=== PATIENT | male | born 1955 | race Caucasian/White ===

== ENCOUNTER 2018-04-10 15:19 | Inpatient (IN) | payer OTHER ==
[2018-04-10] MEDS ORDERED: NA CHLORIDE 0.9% 1,000 ML ONE (17:53)
[2018-04-10 18:19] LABS: Absolute Lymphocytes (CBC) 0.8 K/uL (0.7-4.9); Absolute Monocytes 1.9 K/uL (0.1-1.3); Absolute Neutrophil 14.7 K/uL (1.8-8.0); Basophils % 0.2 % (0-1.3); Eosinophils % 0.1 % (0-4.4); Hematocrit 29.7 % (39.6-49.0); Lymphocytes % 4.6 % (15.3-44.8); MCH 26.3 pg (27.0-35.0); MCV 79.9 fL (80-100); MPV 8.9 fL (7.6-11.3); Monocytes % 10.9 % (3.3-12.3); RBC Red Blood Cell Count 3.71 M/uL (4.33-5.43)
--- NOTE | 2018-04-10 18:29 | RAD REPORT ---
EXAM DESCRIPTION: RAD - Chest Single View - 04/10/2018 5:54 pm CLINICAL HISTORY: Chest pain, GI bleeding. COMPARISON: 03/08/2015 FINDINGS: Portable technique limits examination quality. The lungs are grossly clear. The heart is normal in size. No displaced fractures. IMPRESSION: No acute intrathoracic process suspected.
[2018-04-10 18:30] LABS: Protime INR 1.32
[2018-04-10 18:46] LABS: Potassium 4.7 mEq/L (3.6-5.0)
[2018-04-10 18:52] LABS: Albumin 3.3 g/dL (3.2-5.5); Bilirubin Direct 0.3 mg/dL (0-0.2); Bilirubin Total 1.1 mg/dL (0.3-1.2); Protein, Total 7.1 g/dL (6.0-8.3)
[2018-04-10 18:54] LABS: CKMB Creatine Kinase MB 2.4 ng/ml (0.3-4.0)
[2018-04-10] MEDS ORDERED: HYDROCODONE/APAP 7.5/325 MG TAB ONE (18:58)
[2018-04-10] MEDS ORDERED: CEFEPIME 1 GM/100 ML BAG IV ONE (19:01)
--- NOTE | 2018-04-10 19:08 | ER ---
Nurse's Notes [facility] Name: Benji Villalpando Age: 62 yrs Sex: Male : 1955 Arrival Date: 04/10/2018 Time: 15:23 Bed 8 Private MD: Jack Corley Diagnosis: Weakness;Anemia, unspecified;Elevated white blood cell count;Unspecified kidney failure;Hypotension;Type 1 diabetes mellitus Presentation: 04/10 15:28 Presenting complaint: Pt's [id number] states "we were at Dr. Corley's office and aa5 his blood pressure was 84/47 so they sent us here". Pt c/o dizziness. Pt's [id number] states "they think he has a GI bleed because he's been nauseated". 15:28 Transition of care: patient was not received from another setting of care. Onset of aa5 symptoms was April 10, 2018. Risk Assessment: Do you want to hurt yourself or someone else? Patient reports no desire to harm self or others. Initial Sepsis Screen: Does the patient meet any 2 criteria? No. Patient's initial sepsis screen is negative. Does the patient have a suspected source of infection? No. Patient's initial sepsis screen is negative. Care prior to arrival: None. 15:28 Method Of Arrival: Wheelchair aa5 15:28 Acuity: MILADYS 3 aa5 Historical: - Allergies: 15:28 No Known Allergies; aa5 - Home Meds: 15:28 atorvastatin 40 mg oral tab 1 tab once daily [Active]; aspirin 81 mg Oral chew 1 tab aa5 once daily [Active]; Plavix 75 mg Oral tab 1 tab once daily [Active]; Humulin N subcutaneous subcutaneous [Active]; Ranexa 1,000 mg oral Tb12 1 tab 2 times per day [Active]; Entresto 24-26 mg oral tab twice a day [Active]; - PMHx: 15:28 Diabetes - IDDM; Hypertension; Myocardial infarction; aa5 15:29 Anemia; aa5 15:29 Kidney Failure stage 3; aa5 - PSHx: 15:28 Heart stents; aa5 - Immunization history:: Adult Immunizations unknown. - Social history:: Smoking status: Patient/guardian denies using tobacco. - Ebola Screening: : No symptoms or risks identified at this time. - Family history:: not pertinent. Screenin:40 Abuse screen: Denies threats or abuse. Denies injuries from another. Nutritional hb screening: No deficits noted. Tuberculosis screening: No symptoms or risk factors identified. Fall Risk None identified. Assessment: 17:00 General: Appears in no apparent distress. Behavior is calm, cooperative. Pain: Denies hb pain. Neuro: Level of Consciousness is awake, alert, obeys commands, Oriented to person, place, time, situation. Cardiovascular: Heart tones S1 S2 present Capillary refill < 3 seconds Patient's skin is warm and dry. Respiratory: Airway is patent Trachea midline Respiratory effort is even, unlabored, Respiratory pattern is regular, symmetrical, Breath sounds are clear bilaterally. GI: No signs and/or symptoms were reported involving the gastrointestinal system. : No signs and/or symptoms were reported regarding the genitourinary system. EENT: No signs and/or symptoms were reported regarding the EENT system. Derm: No signs and/or symptoms reported regarding the dermatologic system. Skin is intact, is healthy with good turgor, Skin is pink, warm \\T\\ dry. Musculoskeletal: No signs and/or symptoms reported regarding the musculoskeletal system. 18:00 Reassessment: Patient appears in no apparent distress at this time. Patient and/or hb family updated on plan of care and expected duration. Pain level reassessed. Patient is alert, oriented x 3, equal unlabored respirations, skin warm/dry/pink. 18:53 Reassessment: Patient appears in no apparent distress at this time. No changes from hb previously documented assessment. Patient and/or family updated on plan of care and expected duration. Pain level reassessed. Patient is alert, oriented x 3, equal unlabored respirations, skin warm/dry/pink. 20:41 Reassessment: bladder scan shows 319 post void residual, orders for quintero to be placed..ak1 Vital Signs: 15:31 BP 92 / 52; Pulse 70; Resp 18 S; Temp 98.0(TE); Pulse Ox 98% on R/A; Weight 83.01 kg aa5 (R); Height 5 ft. 4 in. (162.56 cm) (R); Pain 0/10; 17:00 BP 96 / 54; Pulse 71; Resp 17; Pulse Ox 96% on R/A; hb 18:10 BP 111 / 62; Pulse 81; Resp 15; Pulse Ox 100% on R/A; hb 18:52 BP 115 / 62; Pulse 80; Resp 17; Pulse Ox 97% on R/A; Pain 0/10; hb 19:12 BP 109 / 62; Pulse 81; Resp 17; Temp 98.2; Pulse Ox 97% on R/A; Pain 0/10; ak1 15:31 Body Mass Index 31.41 (83.01 kg, 162.56 cm) aa5 ED Course: 15:23 Patient arrived in ED. mr 15:23 Jack Corley, is Private Physician. mr 15:28 Arm band placed on. aa5 15:31 Triage completed. aa5 17:00 Patient has correct armband on for positive identification. Placed in gown. Bed in low hb position. Call light in reach. Side rails up X 1. 17:12 Josee Patel RN is Primary Nurse. hb 17:21 Geovanny Kimball MD is Attending Physician. elzbieta 17:52 X-ray completed. Portable x-ray completed in exam room. Patient tolerated procedure kc2 well. 17:52 XRAY Chest (1 view) In Process Unspecified. EDMS 17:57 Initial lab(s) drawn, by ct, sent to lab. Inserted saline lock: 20 gauge in right jb1 antecubital area, using aseptic technique. Blood collected. 18:51 Elizabeth Phelps MD is Hospitalizing Provider. elzbieta 19:13 No provider procedures requiring assistance completed. Patient admitted, IV remains in ak1 place. 20:23 Primary Nurse role handed off by Josee Patel RN rg2 Administered Medications: 17:50 Not Given (Duplicate Order): NS 0.9% 1000 ml IV at 125 ml/hr continuous iw 17:50 Drug: NS 0.9% 250 ml Route: IV; Rate: bolus; Site: right antecubital; hb 18:10 Follow up: Response: No adverse reaction; IV Status: Completed infusion hb 18:10 Drug: NS 0.9% 1000 ml Route: IV; Rate: 75 ml/hr; Site: right antecubital; hb 20:42 Follow up: IV Status: Infusion continued upon admission ak1 19:05 Drug: Cefepime 1 grams Route: IVPB; Rate: 200 ml/hr; Infused Over: 30 mins; Site: right hb antecubital; Point of Care Testing: Guaiac: 18:44 Stool Guaiac: Negative; Stool Hemoccult Control: Pass; elzbieta Outcome: 19:07 Decision to Hospitalize by Provider. elzbieta 20:40 Admitted to ICU accompanied by nurse, family with patient, via stretcher, room icu6, on ak1 monitor, with chart. 20:40 critical 20:40 Instructed on the need for admit. 21:28 Patient left the ED. ak1 Signatures: Dispatcher [employer] EDMS Marv Suh jb1 Ronal Gatica rg2 Geovanny Kimball MD MD cha Rivera, Maria mr Sunni Ramirez, RN RN aa5 Shaye Walker RN RN ak1 Josee Patel RN RN hb Carr, Kelsie kc2 Kajal Palacios RN iw Corrections: (The following items were deleted from the chart) 15:28 15:26 PSHx: None; aa5 aa5
--- NOTE | 2018-04-10 19:08 | EDPHYS ---
Physician Documentation [facility] Name: Benji Villalpando Age: 62 yrs Sex: Male : 1955 Arrival Date: 04/10/2018 Time: 15:23 Bed 8 Private MD: Bar[facility] ED Physician Geovanny Kimball HPI: 04/10 17:35 This 62 yrs old Male presents to ER via Wheelchair with complaints of Low elzbieta Blood Presure. 17:35 weak, low bp. Onset: The symptoms/episode began/occurred 2 day(s) ago. Severity of elzbieta symptoms: At their worst the symptoms were moderate in the emergency department the symptoms are unchanged. The patient has experienced similar episodes in the past, several times. Historical: - Allergies: 15:28 No Known Allergies; aa5 - Home Meds: 15:28 atorvastatin 40 mg oral tab 1 tab once daily [Active]; aspirin 81 mg Oral chew 1 tab aa5 once daily [Active]; Plavix 75 mg Oral tab 1 tab once daily [Active]; Humulin N subcutaneous subcutaneous [Active]; Ranexa 1,000 mg oral Tb12 1 tab 2 times per day [Active]; Entresto 24-26 mg oral tab twice a day [Active]; - PMHx: 15:28 Diabetes - IDDM; Hypertension; Myocardial infarction; aa5 15:29 Anemia; aa5 15:29 Kidney Failure stage 3; aa5 - PSHx: 15:28 Heart stents; aa5 - Immunization history:: Adult Immunizations unknown. - Social history:: Smoking status: Patient/guardian denies using tobacco. - Ebola Screening: : No symptoms or risks identified at this time. - Family history:: not pertinent. ROS: 17:35 Constitutional: Negative for fever, chills, and weight loss, Eyes: Negative for injury, elzbieta pain, redness, and discharge, ENT: Negative for injury, pain, and discharge, Neck: Negative for injury, pain, and swelling, Cardiovascular: Negative for chest pain, palpitations, and edema, Respiratory: Negative for shortness of breath, cough, wheezing, and pleuritic chest pain, Abdomen/GI: Negative for abdominal pain, nausea, vomiting, diarrhea, and constipation, Back: Negative for injury and pain, : Negative for injury, bleeding, discharge, and swelling, MS/Extremity: Negative for injury and deformity, Psych: Negative for depression, anxiety, suicide ideation, homicidal ideation, and hallucinations, Allergy/Immunology: Negative for hives, rash, and allergies, Endocrine: Negative for neck swelling, polydipsia, polyuria, polyphagia, and marked weight changes, Hematologic/Lymphatic: Negative for swollen nodes, abnormal bleeding, and unusual bruising. 17:35 Skin: Positive for jaundice, pallor. Exam: 17:35 Constitutional: This is a well developed, well nourished patient who is awake, alert, elzbieta and in no acute distress. Head/Face: Normocephalic, atraumatic. Eyes: Pupils equal round and reactive to light, extra-ocular motions intact. Lids and lashes normal. Conjunctiva and sclera are non-icteric and not injected. Cornea within normal limits. Periorbital areas with no swelling, redness, or edema. ENT: Nares patent. No nasal discharge, no septal abnormalities noted. Tympanic membranes are normal and external auditory canals are clear. Oropharynx with no redness, swelling, or masses, exudates, or evidence of obstruction, uvula midline. Mucous membranes moist. Neck: Trachea midline, no thyromegaly or masses palpated, and no cervical lymphadenopathy. Supple, full range of motion without nuchal rigidity, or vertebral point tenderness. No Meningismus. Chest/axilla: Normal chest wall appearance and motion. Nontender with no deformity. No lesions are appreciated. Cardiovascular: Regular rate and rhythm with a normal S1 and S2. No gallops, murmurs, or rubs. Normal PMI, no JVD. No pulse deficits. Respiratory: Lungs have equal breath sounds bilaterally, clear to auscultation and percussion. No rales, rhonchi or wheezes noted. No increased work of breathing, no retractions or nasal flaring. Abdomen/GI: Soft, non-tender, with normal bowel sounds. No distension or tympany. No guarding or rebound. No evidence of tenderness throughout. Back: No spinal tenderness. No costovertebral tenderness. Full range of motion. Male : Normal genitalia with no discharge or lesions. Skin: Warm, dry with normal turgor. Normal color with no rashes, no lesions, and no evidence of cellulitis. MS/ Extremity: Pulses equal, no cyanosis. Neurovascular intact. Full, normal range of motion. Neuro: Awake and alert, GCS 15, oriented to person, place, time, and situation. Cranial nerves II-XII grossly intact. Motor strength 5/5 in all extremities. Sensory grossly intact. Cerebellar exam normal. Normal gait. Psych: Awake, alert, with orientation to person, place and time. Behavior, mood, and affect are within normal limits. Vital Signs: 15:31 BP 92 / 52; Pulse 70; Resp 18 S; Temp 98.0(TE); Pulse Ox 98% on R/A; Weight 83.01 kg aa5 (R); Height 5 ft. 4 in. (162.56 cm) (R); Pain 0/10; 17:00 BP 96 / 54; Pulse 71; Resp 17; Pulse Ox 96% on R/A; hb 18:10 BP 111 / 62; Pulse 81; Resp 15; Pulse Ox 100% on R/A; hb 18:52 BP 115 / 62; Pulse 80; Resp 17; Pulse Ox 97% on R/A; Pain 0/10; hb 19:12 BP 109 / 62; Pulse 81; Resp 17; Temp 98.2; Pulse Ox 97% on R/A; Pain 0/10; ak1 15:31 Body Mass Index 31.41 (83.01 kg, 162.56 cm) aa5 MDM: 17:22 Patient medically screened. [facility] 17:35 Data reviewed: vital signs, nurses notes, lab test result(s), EKG, radiologic studies, elzbieta plain films. 04/10 17:14 Order name: Basic Metabolic Panel; Complete Time: 19:08 [facility] 04/10 17:14 Order name: CBC with Diff; Complete Time: 18:45 [facility] 04/10 17:14 Order name: Creatinine for Radiology; Complete Time: 19:08 [facility] 04/10 17:14 Order name: Hepatic Function; Complete Time: 19:08 [facility] 04/10 17:14 Order name: Lipase; Complete Time: 19:08 [facility] 04/10 17:14 Order name: Urine Microscopic Only [facility] 04/10 17:34 Order name: BNP [facility] 04/10 17:34 Order name: Ckmb; Complete Time: 19:34 [facility] 04/10 17:34 Order name: CPK; Complete Time: 19:34 [facility] 04/10 17:34 Order name: Magnesium; Complete Time: 19:34 [facility] 04/10 17:34 Order name: PT-INR; Complete Time: 18:45 [facility] 04/10 17:34 Order name: Ptt, Activated; Complete Time: 18:45 [facility] 04/10 17:34 Order name: Troponin (emerg Dept Use Only); Complete Time: 19:08 [facility] 04/10 17:34 Order name: AMMONIA; Complete Time: 18:45 [facility] 04/10 17:34 Order name: Urine Culture [facility] 04/10 17:34 Order name: Type And Screen; Complete Time: 19:34 [facility] 04/10 17:34 Order name: BNP B-Type Natriuretic Peptide; Complete Time: 19:08 [facility] 04/10 18:49 Order name: Osmolality, Serum [facility] 04/10 18:49 Order name: Urine Sodium Random [facility] 04/10 18:50 Order name: Blood Culture Adult (2) [facility] 04/10 19:30 Order name: BNP B-Type Natriuretic Peptide [facility] 04/10 19:30 Order name: BNP B-Type Natriuretic Peptide [facility] 04/10 19:30 Order name: CBC with Automated Diff [facility] 04/10 19:30 Order name: CBC with Automated Diff [facility] 04/10 19:30 Order name: Comprehensive Metabolic Panel [facility] 04/10 19:30 Order name: Comprehensive Metabolic Panel [facility] 04/10 19:30 Order name: Cortisol EDMS / 19:30 Order name: Cortisol [facility] 04/10 19:30 Order name: Lactate EDMS / 19:30 Order name: Lactate [facility] 04/10 17:14 Order name: IV Saline Lock; Complete Time: 17:48 [facility] 04/10 17:14 Order name: Labs collected and sent; Complete Time: 17:48 [facility] 04/10 17:14 Order name: Urine Dipstick-Ancillary (obtain specimen); Complete Time: 20:32 [facility] 04/10 17:34 Order name: XRAY Chest (1 view); Complete Time: 18:45 [facility] 04/10 17:34 Order name: EKG; Complete Time: 17:35 [facility] 04/10 17:34 Order name: Cardiac monitoring; Complete Time: 17:58 [facility] 04/10 17:34 Order name: EKG - Nurse/Tech; Complete Time: 18:56 [facility] 04/10 17:34 Order name: O2 Per Protocol; Complete Time: 17:48 [facility] 04/10 17:34 Order name: O2 Sat Monitoring; Complete Time: 17:48 [facility] 04/10 19:07 Order name: CONS Physician Consult [facility] 04/10 19:07 Order name: CONS Physician Consult [facility] 04/10 19:30 Order name: Heart Healthy [facility] 04/10 19:30 Order name: Magnesium [facility] 04/10 19:30 Order name: Magnesium [facility] 04/10 19:30 Order name: Phosphorus [facility] 04/10 19:30 Order name: Phosphorus [facility] 04/10 19:30 Order name: T4 Free [facility] 04/10 19:30 Order name: T4 Free [facility] 04/10 19:30 Order name: Troponin I [facility] 04/10 19:30 Order name: Troponin I [facility] 04/10 19:30 Order name: Troponin I [facility] 04/10 19:30 Order name: Thyroid Stimulating Hormone [facility] 04/10 19:30 Order name: Thyroid Stimulating Hormone [facility] 04/10 19:31 Order name: Urinalysis [facility] 04/10 19:37 Order name: Bladder Scanner: if post residual greater than 100 cc, place quintero; [facility] Complete Time: 20:38 04/10 19:59 Order name: Urine Dipstick--Ancillary (enter results) 2 04/10 20:03 Order name: Urine Dipstick-Ancillary [facility] 04/10 20:35 Order name: ABO/RH no charge [facility] 04/10 21:00 Order name: Caorl; Complete Time: 21:01 ak1 Administered Medications: 17:50 Not Given (Duplicate Order): NS 0.9% 1000 ml IV at 125 ml/hr continuous iw 17:50 Drug: NS 0.9% 250 ml Route: IV; Rate: bolus; Site: right antecubital; hb 18:10 Follow up: Response: No adverse reaction; IV Status: Completed infusion hb 18:10 Drug: NS 0.9% 1000 ml Route: IV; Rate: 75 ml/hr; Site: right antecubital; hb 20:42 Follow up: IV Status: Infusion continued upon admission ak1 19:05 Drug: Cefepime 1 grams Route: IVPB; Rate: 200 ml/hr; Infused Over: 30 mins; Site: right hb antecubital; Point of Care Testing: Guaiac: 18:44 Stool Guaiac: Negative; Stool Hemoccult Control: Pass; elzbieta Disposition: 04/10/18 19:07 Hospitalization ordered by Elizabeth Phelps for Inpatient Admission. Preliminary diagnosis are Weakness, Anemia, unspecified, Elevated white blood cell count, Unspecified kidney failure, Hypotension, Type 1 diabetes mellitus. - Bed requested for Intensive Care Unit. - Status is Inpatient Admission. ak1 - Condition is Stable. - Problem is new. - Symptoms have improved. UTI on Admission? No Signatures: Dispatcher [employer] EDMS Geovanny Kimball MD MD cha Therrien, Shelly, RAISE DRILLER-C RAISE DRILLER-Csnw Kathi Plascencia RN RN bb Sunni Ramirez RN RN aa5 Shaye Walker RN HIRA ak1 Josee Patel RN RN Kajal Palacios RN Corrections: (The following items were deleted from the chart) 15:28 15:26 PSHx: None; aa5 aa5 19:08 19:07 Hospitalization Ordered by Elizabeth Phelps MD for Inpatient Admission. Preliminary [facility] diagnosis is Weakness; Anemia, unspecified; Elevated white blood cell count; Unspecified kidney failure; Hypotension; Type 1 diabetes mellitus. Bed requested for Telemetry/MedSurg (Inpatient). Status is Inpatient Admission. Condition is Stable. Problem is new. Symptoms have improved. UTI on Admission? No. elzbieta 20:30 19:08 04/10/2018 19:07 Hospitalization Ordered by Elizabeth Phelps MD for Inpatient bb Admission. Preliminary diagnosis is Weakness; Anemia, unspecified; Elevated white blood cell count; Unspecified kidney failure; Hypotension; Type 1 diabetes mellitus. Bed requested for Intensive Care Unit. Status is Inpatient Admission. Condition is Stable. Problem is new. Symptoms have improved. UTI on Admission? No. elzbieta 21:28 20:30 04/10/2018 19:07 Hospitalization Ordered by Elizabeth Phelps MD for Inpatient ak1 Admission. Preliminary diagnosis is Weakness; Anemia, unspecified; Elevated white blood cell count; Unspecified kidney failure; Hypotension; Type 1 diabetes mellitus. Bed requested for Intensive Care Unit. Status is Inpatient Admission. Condition is Stable. Problem is new. Symptoms have improved. UTI on Admission? No. bb
[2018-04-10] MEDS ORDERED: ONDANSETRON 4 MG/2 ML VIAL IV PRN (19:27)
[2018-04-10] MEDS ORDERED: NA CHLORIDE 0.9% 1,000 ML IV SCH (20:00)
[2018-04-10 20:02] LABS: Urine Blood NEGATIVE (NEG); Urine Glucose NEGATIVE (NEG); Urine Protein 2+ (NEG); Urine Specific Gravity 1.025 (1.005-1.030); Urine pH 5.5 (5.0-7.0)
[2018-04-10 20:02] LABS: Urine Bacteria <20 /HPF (NONE SEEN); Urine Culture Reflex Order NOT NEEDED; Urine RBC <5 /HPF (NONE SEEN)
[2018-04-11] MEDS: ACETAMINOPHEN 500 MG TAB PO PRN ×2 (00:21→11:05)
[2018-04-11 04:16] LABS: Absolute Lymphocytes (CBC) 1.2 K/uL (0.7-4.9); Absolute Neutrophil 13.7 K/uL (1.8-8.0); Basophils % 0.3 % (0-1.3); Eosinophils % 0.3 % (0-4.4); Hematocrit 28.2 % (39.6-49.0); Lymphocytes % 6.8 % (15.3-44.8); MCH 25.9 pg (27.0-35.0); MCV 80.3 fL (80-100); MPV 9.1 fL (7.6-11.3); RBC Red Blood Cell Count 3.51 M/uL (4.33-5.43)
[2018-04-11 05:22] LABS: Bilirubin Total 0.8 mg/dL (0.3-1.2); Potassium 4.6 mEq/L (3.6-5.0); Protein, Total 6.4 g/dL (6.0-8.3); Thyroid Stimulating Hormone 3.26 uIU/mL (0.34-5.60)
[2018-04-11 05:30] VITALS: BMI 33.0
--- NOTE | 2018-04-11 07:20 | P.HP ---
Certification for Inpatient Patient admitted to: Inpatient With expected LOS: >2 Midnights Patient will require the following post-hospital care: None ([place]) Practitioner: I am a practitioner with admitting privileges, knowledge of patient current condition, hospital course, and medical plan of care. Services: Services provided to patient in accordance with Admission requirements found in Title 42 Section 412.3 of the Code of Federal Regulations Patient History Date of Service: 04/10/18 Reason for admission: syncope / hypotension History of Present Illness: Patient is a 62-year-old gentleman who came to the hospital with lightheadedness. A couple days prior he had a episode where he passed out completely. Patient's daughter in-law was not aware until the following day. Patient was recently started on a couple of new new medicines for his heart. He was released from [facility] About a week ago and at that time he was running a low blood pressure. Patient is unaware if he started a new medicine then but his vqzlnxms-fk-dgp states that at discharge he did have a couple of new medications including Entresto and Ranexa. This is most likely patient's cause of "low blood pressure". Unsure exactly what caused the patient 's syncopal event. It could be related to his low blood pressure in him developing orthostatics. Patient's renal function is also elevated and patient had his Lasix while at the hospital. We will adjust patient's medication and monitor his blood pressure once we resumed. We will check orthostatics. We will gently rehydrate patient. We will admit him to the hospital into the intensive care unit overnight to monitor him hemodynamically. Cardiology consultation as well. Allergies No Known Drug Allergies Allergy (Verified 02/27/15 09:33) Unknown No Known Allergies Allergy (Uncoded 04/10/18 21:31) Unknown Home Medications: Aspirin Chewable [Aspirin Chewable*] 81 mg PO DAILY 04/10/18 Atorvastatin Calcium [Lipitor] 40 mg PO BEDTIME 04/10/18 Clopidogrel Bisulfate [Plavix*] 1 tab PO DAILY 04/10/18 NPH, Human Insulin Isophane [Humulin N] 9 units SQ BIDWM 04/10/18 Ranolazine [Ranexa] 1,000 mg PO BID 04/10/18 Sacubitril/Valsartan [Entresto 24 mg-26 mg Tablet] 1 tab PO BID 04/10/18 - Past Medical/Surgical History Has patient received pneumonia vaccine in the past: Yes Diabetic: Yes -: IDDM -: HTN -: hyperlipidemia -: [place] -: anemia -: Kidney failure stage 3 -: Cardiac Stents 2013, 2017 - Family History Father Medical History: Diabetes Mother Medical History: Diabetes Sister Medical History: Diabetes Notes: 2 sisters, both from complications of diabetes - Social History Smoking Status: Never smoker Alcohol use: No CD- Drugs: No Caffeine use: Yes Place of Residence: Home Review of Systems 10-point ROS is otherwise unremarkable Physical Examination - Vital Signs Temperature: 97 F Blood Pressure: 113/72 Pulse: 71 Respirations: 13 Pulse Ox (%): 97 - Physical Exam General: Alert, In no apparent distress, Oriented x3 HEENT: Atraumatic, PERRLA, Mucous membr. moist/pink, EOMI, Sclerae nonicteric Neck: Supple, 2+ carotid pulse no bruit, No LAD, Without JVD or thyroid abnormality Respiratory: Clear to auscultation bilaterally, Normal air movement Cardiovascular: Regular rate/rhythm, Normal S1 S2, Systolic murmur Gastrointestinal: Normal bowel sounds, Soft and benign, Non-distended, No tenderness Musculoskeletal: No clubbing, No tenderness, Swelling Integumentary: No rashes Neurological: Normal gait, Normal speech, Normal tone, Sensation intact, Cranial nerves 3-12 intact, Normal affect, Abnormal strength Lymphatics: No axilla or inguinal lymphadenopathy - Studies Laboratory Data (last 24 hrs) 04/10/18 17:50: PT 15.6 H, INR 1.32, APTT 30.4 04/10/18 17:50: Magnesium 2.0 D 04/10/18 17:50: B-Natriuretic Peptide 1488 H 04/10/18 17:50: Creatinine 3.11 H 04/10/18 17:50: WBC 17.4 H, Hgb 9.8 L, Hct 29.7 L, Plt Count 360 04/10/18 17:50: Sodium 121 L, Potassium 4.7, BUN 48 H, Creatinine 3.22 H, Glucose 190 H, Total Bilirubin 1.1, AST 15, ALT 10, Alkaline Phosphatase 82, Lipase 16 L Assessment & Plan - Problems (Diagnosis) (1) Congestive heart failure Current Visit: Yes Status: Acute (2) Hypotension Current Visit: Yes Status: Acute (3) Syncope Current Visit: Yes Status: Acute (4) Chronic kidney disease, stage 3 Current Visit: Yes Status: Acute (5) Diabetes mellitus Onset Date: 02/28/15 Current Visit: No Status: Acute (6) Hyperlipidemia Onset Date: 02/28/15 Current Visit: No Status: Acute (7) Hypertension Onset Date: 02/28/15 Current Visit: No Status: Acute Qualifiers: Hypertension type: essential hypertension Qualified Code(s): I10 - Essential (primary) hypertension - Plan Plan: 1. gently rehydrate patient 2. monitor renal function closely 3. check orthostatics 4. Echocardiogram 5. Cardiology consultation 6. Adjust patient's cardiac meds and monitor blood pressure closely 7. GI and DVT prophylaxis Discharge Plan: Home Plan to discharge in: 48 Hours - Advance Directives Does patient have a Living Will: No Does patient have a Durable POA for Healthcare: No - Code Status/Comfort Care Code Status Assessed: Yes Code Status: Full Code Critical Care: No Time Spent Managing PTS Care (In Minutes): 50
[2018-04-11] MEDS: NPH (HUMAN) 100 UNITS/ML INSULIN SQ SCH ×2 (08:00→18:04)
[2018-04-11] MEDS ORDERED: ENOXAPARIN 40 MG/0.4 ML SQ SCH (09:00)
[2018-04-11] MEDS ORDERED: SACUBITRIL/VALSARTAN 24/26 MG TAB PO SCH (09:00)
[2018-04-11] MEDS: ASPIRIN 81 MG CHEWABLE TABLET PO SCH (09:19)
[2018-04-11] MEDS: CLOPIDOGREL 75 MG TABLET PO SCH (09:19)
[2018-04-11] MEDS: HEPARIN 5000 UNIT/ML 1 ML VIAL SQ SCH ×2 (09:19→21:31)
--- NOTE | 2018-04-11 12:50 | P.PN ---
Subjective Date of Service: 04/11/18 Chief Complaint: syncope / hypotension Patient seen and examined at bedside. Chart reviewed. Case discussed with cardiology. Currently awaiting nephrology recommendations. Patient states that he does not have any complaints to offer so denies having any chest pain or shortness of breath at this time. Patient's kfwkdzcu-sz-kfe at bedside concerned about discharging patient home just yet. Patient is to work with physical therapy today before discharging home in awaiting nephrology consult. Psfoeqcv-zr-fcs educated extensively during the disease process and the need for proper intervention here in the hospital. Nuknoxsz-tk-pnn demonstrated understanding and agrees with the plan at this time to observe the patient until nephrology has any further recommendations Review of Systems General: As per HPI Physical Examination - Vital Signs Temperature: 97.0 F Blood Pressure: 136/65 Pulse: 76 Respirations: 16 Pulse Ox (%): 97 - Physical Exam General: Alert, In no apparent distress HEENT: Atraumatic, PERRLA, EOMI Neck: Supple, JVD not distended Respiratory: Normal air movement, Crackles/rales Cardiovascular: Regular rate/rhythm, Normal S1 S2 Gastrointestinal: Normal bowel sounds, No tenderness Musculoskeletal: No tenderness Integumentary: No rashes Neurological: Normal speech, Normal tone, Normal affect Lymphatics: No axilla or inguinal lymphadenopathy - Studies Laboratory Data (last 24 hrs) 04/10/18 17:50: PT 15.6 H, INR 1.32, APTT 30.4 04/10/18 17:50: Magnesium 2.0 D 04/10/18 17:50: B-Natriuretic Peptide 1488 H 04/10/18 17:50: Creatinine 3.11 H 04/10/18 17:50: WBC 17.4 H, Hgb 9.8 L, Hct 29.7 L, Plt Count 360 04/10/18 17:50: Sodium 121 L, Potassium 4.7, BUN 48 H, Creatinine 3.22 H, Glucose 190 H, Total Bilirubin 1.1, AST 15, ALT 10, Alkaline Phosphatase 82, Lipase 16 L Medications List Reviewed: Yes Assessment & Plan - Problems (Diagnosis) (1) Syncope Onset Date: 04/11/18 Current Visit: Yes Status: Acute Plan: Most Likley 2.2 to Entresto. -Stop Entresto. -Pt Consulted. -Fall precautions given Qualifiers: Syncope type: vasovagal syncope Qualified Code(s): R55 - Syncope and collapse (2) Hypotension Onset Date: 04/11/18 Current Visit: Yes Status: Acute Plan: Most Likley 2.2 to Entersto. -Stop Entresto. -Can add midodrine if needed. -Evaluate for Adrenal Insufficiency Qualifiers: Hypotension type: hypotension due to drug Qualified Code(s): I95.2 - Hypotension due to drugs (3) Chronic kidney disease, stage 3 Onset Date: 04/11/18 Current Visit: Yes Status: Acute Plan: Acute on Chronic Kidney disease -Most likely 2.2 to Entresto. Stop at this time -Cardiology Consulted. Appreciated reccs -Npehrology Consulted. Awaiting reccs -[place] in place, UO adequate and clear in color now (4) Congestive heart failure Onset Date: 04/11/18 Current Visit: Yes Status: Acute Plan: H/o CHF with EF of 20% per family at bedside -Currently on Entresto and Ranexa. Stop Entresto due to ARF -ECHO pending -Pt was On Lasix which were discontinue but [facility] Due to Hypotension and Hyponatremia. Pt has not had Aldactone in the past. -Cardiology consulted. Appreciate Reccs -Coreg low dose -Nephrology consulted. 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 supervisor use Diabetes mellitus complication status: without complication Qualified Code(s): E11.9 - Type 2 diabetes mellitus without complications (6) Hyperlipidemia Onset Date: 02/28/15 Current Visit: No Status: Chronic Qualifiers: Hyperlipidemia type: mixed hyperlipidemia Qualified Code(s): E78.2 - Mixed hyperlipidemia (7) Hypertension Onset Date: 02/28/15 Current Visit: No Status: Chronic Qualifiers: Hypertension type: essential hypertension Qualified Code(s): I10 - Essential (primary) hypertension Discharge Plan: Home Plan to discharge in: 48 Hours - Code Status/Comfort Care Code Status Assessed: Yes Critical Care: No
--- NOTE | 2018-04-11 13:44 | EKG ---
Test Date: 2018-04-10 Test Time: 18:19:45 Marine Extension Agent: MOISÉS MEASUREMENT RESULTS: Intervals: Rate: 80 WI: 204 QRSD: 128 QT: 438 QTc: 505 [place]: P: 25 WI: 204 QRS: -35 T: 90 INTERPRETIVE STATEMENTS: Normal sinus rhythm Left axis deviation Nonspecific intraventricular block Cannot rule out Anterior infarct, age undetermined T wave abnormality, consider lateral ischemia Abnormal ECG Compared to ECG 03/06/2015 06:27:10 No significant changes Electronically Signed On 04-11-18 13:41:49 CDT by Puneet Banerjee
--- NOTE | 2018-04-11 14:03 | ECHO ---
HEIGHT: 5 ft 4 in WEIGHT: 192 lb 2 oz DATE OF STUDY: 04/11/[address]: 2-DIMENSIONAL: YES M.MODE: YES DOPPLER: YES COLOR FLOW: YES TDS: NO PORTABLE: NO DEFINITY: NO BUBBLE STUDY: NO DIAGNOSIS: CONGESTIVE HEART FAILURE CARDIAC HISTORY: CATHERIZATION: YES SURGERY: NO PROSTHETIC VALVE: NO PACEMAKER: NO MEASUREMENTS (cm) DIASTOLIC (NORMALS) SYSTOLIC (NORMALS) IVSd 1.2 (0.6-1.2) LA Diam 4.2 (1.9-4.0) LVEF 35-40% LVIDd 5.5 (3.5-5.7) LVIDs 4.3 (2.0-3.5) %FS 23% LVPWd 1.2 (0.6-1.2) Ao Diam 3.2 (2.0-3.7) 2 DIMENSIONAL ASSESSMENT: RIGHT ATRIUM: LEFT ATRIUM: RIGHT VENTRICLE: LEFT VENTRICLE: TRICUSPID VALVE: MITRAL VALVE: PULMONIC VALVE: AORTIC VALVE: PERICARDIAL EFFUSION:NONE AORTIC ROOT: LEFT VENTRICULAR WALL MOTION: PARADOXICAL SEPTUM. MODERATE GLOBAL HYPOKENSIS. DOPPLER/COLOR FLOW: MILD TRICUSPID REGURGITATION. COMMENTS: PARADOXICAL SEPTUM. MODERATE GLOBAL HYPOKENSIS. EJECTION FRACTION 35-40%. NO EFFUSION. TECHNOLOGIST: FIOR GAITAN RDCS
[2018-04-11 16:18] LABS: UR CREAT 111.9 mg/dL (20-370); Urine Protein/Creatinine Ratio 0.54 ratio (<0.15)
--- NOTE | 2018-04-11 18:43 | CON ---
Date of Consultation: 04/11/2018 Additional Consulting Physician: Dr. Corley. Reason For Consultation: Elevated BUN and creatinine. History Of Present Illness: This is a 62-year-old gentleman. All the information has been obtained from the cgaywyod-ua-yat over the phone. Significant past medical history of diabetes in 1994 compli cated with neuropathy, hypertension, coronary artery disease status post VA back in 2014, status post CAD, status post stent and another VA with PTCA in February of this year, complicated with congestive h eart failure, ejection fraction around 20-25, hypertension. The patient recently admitted to [facility] with congestive heart failure and acute kidney injury. At that time, did not require any dialysis according to the family, cleared chronic kidney disease, stage 3. The patient readmitted again with renal failure, over volume, treated, recovered. The patient was discharged on NED inhibitor. The franc lopes found altered mental status, brought to the ER, found low blood pressure and lab showed elevate d BUN and creatinine. For that reason, we have been consulted. The patient over the night, started on IV fluid. Blood pressure stabilized from 90-130, started producing good urine output. Creatinine started trending down. Past Medical History: Includes: 1.Hypertension. 2.Hyperlipidemia. 3.Coronary artery disease complicated with congestive heart failure, ejection fraction 20-25. 4.Chronic kidney disease, stage 3. Allergies: NO KNOWN DRUG ALLERGIES. Family History: Positive for diabetes and hypertension. Social History: Denies smoking, denies drinking, denies drug abuse. Past Surgical History: Include cardiac cath. Review of Systems: Head and Neck: No red eye. No ear pain. GI: No nausea, no vomiting. : No polyuria. No dysuria. No hematuria. MARKETING TECHNOLOGY COORDINATOR: Not applicable. Respiratory: Has shortness of breath. Cardiovascular: No chest pain. He has neuropathy. Has orthopnea. Musculoskeletal: No joint pain. Endocrine: No polydipsia. Skin: No rash. Neuro: Has neuropathy. Physical Examination: Vital Signs: When I saw the patient, blood pressure 138/60, pulse of 88 Chest: Clear to auscultation. Heart: S1, S2. Regular rhythm. Abdomen: Soft, nontender. Extremities: Trace edema. Medications: Current medications the patient on include Atorvastatin, Tylenol, alprazolam, Zofran, i nsulin. Laboratory Data: WBC 17, H and H 9.1/28.2, platelets 354. Sodium 124, potassium 4.6, bicarb 26, BUN 46, creatinine 2.8, calcium of 8. Assessment And Plan: 1.Acute kidney injury secondary to prerenal. I am going to continue on hydration gently giving the congestive heart failure. 2.Hypertension, currently low blood pressure. Keep holding all the blood pressure medications. 3.Hyponatremia secondary to depletional. I am going to go ahead and send for TSH and cortisol, and we will start gentle hydration. 4.Congestive heart failure as by Cardiology. 5.Nephrotic range of proteinuria with acute kidney injury and anemia. I am going to send SPEP and U PEP to rule out any light chain diseases. 6.Diabetes as by primary. Case discussed with Dr. Corley, agreed on the plan. Discussed with the patient and qcmrrplg-tz-ooe. Agreed on the plan. They verbalized unde rstanding. VICKIE Voice ID: [id number] Report ID: [id number]
[2018-04-11] MEDS: ATORVASTATIN 40 MG TAB PO SCH (21:31)
[2018-04-11] MEDS: ALPRAZOLAM 0.25 MG TABLET PO PRN (21:32)
--- NOTE | 2018-04-11 21:58 | P.CNS ---
Date of Consult: 04/11/18 Reason for Consult: LILY Requesting Physician: Diane Corley Chief Complaint: syncope / hypotension History of Present Illness: 62 yo HM CAD, HTN presented to the ER with two days of of moderate, persistent lightheadness and associated weakness. Reports an episode of weakness. Reports multiple recent hospital admissions of late with changes in his medications. He is known to our group and was seen at [facility] in 2015. He is feeling better this evening. Patient is a 62-year-old gentleman who came to the hospital with lightheadedness. A couple days prior he had a episode where he passed out completely. Patient's daughter in-law was not aware until the following day. Patient was recently started on a couple of new new medicines for his heart. He was released from [facility] About a week ago and at that time he was running a low blood pressure. Patient is unaware if he started a new medicine then but his xdgjzcmo-nr-nas states that at discharge he did have a couple of new medications including Entresto and Ranexa. This is most likely patient's cause of "low blood pressure". Unsure exactly what caused the patient 's syncopal event. It could be related to his low blood pressure in him developing orthostatics. Patient's renal function is also elevated and patient had his Lasix while at the hospital. We will adjust patient's medication and monitor his blood pressure once we resumed. We will check orthostatics. We will gently rehydrate patient. We will admit him to the hospital into the intensive care unit overnight to monitor him hemodynamically. Cardiology consultation as well. 17:35 This 62 yrs old Male presents to ER via Wheelchair with complaints of Low elzbieta Blood Presure. 17:35 weak, low bp. Onset: The symptoms/episode began/occurred 2 day(s) ago. Severity of elzbieta symptoms: At their worst the symptoms were moderate in the emergency department the symptoms are unchanged. The patient has experienced similar episodes in the past, several times. Allergies No Known Drug Allergies Allergy (Verified 02/27/15 09:33) Unknown No Known Allergies Allergy (Uncoded 04/10/18 21:31) Unknown Home medications list reviewed: Yes Home Medications: Aspirin Chewable [Aspirin Chewable*] 81 mg PO DAILY 04/10/18 Atorvastatin Calcium [Lipitor] 40 mg PO BEDTIME 04/10/18 Clopidogrel Bisulfate [Plavix*] 1 tab PO DAILY 04/10/18 NPH, Human Insulin Isophane [Humulin N] 9 units SQ BIDWM 04/10/18 Ranolazine [Ranexa] 1,000 mg PO BID 04/10/18 Sacubitril/Valsartan [Entresto 24 mg-26 mg Tablet] 1 tab PO BID 04/10/18 - Past Medical/Surgical History Diabetic: Yes -: IDDM -: HTN -: hyperlipidemia -: [place] -: anemia -: Kidney failure stage 3 -: Cardiac Stents 2013, 2017 - Family History Father Medical History: Diabetes Mother Medical History: Diabetes Sister Medical History: Diabetes Notes: 2 sisters, both from complications of diabetes - Social History Smoking Status: Former smoker Alcohol use: No CD- Drugs: No Caffeine use: Yes Place of Residence: Home Review of Systems 10-point ROS is otherwise unremarkable General: Weakness, Malaise Neurological: Weakness Physical Examination Temp Pulse Resp BP Pulse Ox 97.6 F 78 16 128/69 98 04/11/18 16:00 04/11/18 16:00 04/11/18 16:00 04/11/18 16:00 04/11/18 16:00 General: Alert, In no apparent distress, Oriented x3, Cooperative HEENT: Atraumatic, PERRLA Neck: Supple Respiratory: Clear to auscultation bilaterally Cardiovascular: No edema, Regular rate/rhythm, No rubs Gastrointestinal: Soft and benign, Non-distended Musculoskeletal: No clubbing, No contractures Integumentary: No rashes, No cyanosis Neurological: Normal speech Blood work reviewed in the chart. Na 124; Cr 2.87 Imagings Data: EXAM DESCRIPTION: RAD - Chest Single View - 04/10/2018 5:54 pm CLINICAL HISTORY: Chest pain, GI bleeding. COMPARISON: 03/08/2015 FINDINGS: Portable technique limits examination quality. The lungs are grossly clear. The heart is normal in size. No displaced fractures. IMPRESSION: No acute intrathoracic process suspected. HEIGHT: 5 ft 4 in WEIGHT: 192 lb 2 oz DATE OF STUDY: 04/11/[address]: 2-DIMENSIONAL: YES M.MODE: YES DOPPLER: YES COLOR FLOW: YES TDS: NO PORTABLE: NO DEFINITY: NO BUBBLE STUDY: NO DIAGNOSIS: CONGESTIVE HEART FAILURE CARDIAC HISTORY: CATHERIZATION: YES SURGERY: NO PROSTHETIC VALVE: NO PACEMAKER: NO MEASUREMENTS (cm) DIASTOLIC (NORMALS) SYSTOLIC (NORMALS) IVSd 1.2 (0.6-1.2) LA Diam 4.2 (1.9-4.0) LVEF 35-40% LVIDd 5.5 (3.5-5.7) LVIDs 4.3 (2.0-3.5) %FS 23% LVPWd 1.2 (0.6-1.2) Ao Diam 3.2 (2.0-3.7) 2 DIMENSIONAL ASSESSMENT: RIGHT ATRIUM: LEFT ATRIUM: RIGHT VENTRICLE: LEFT VENTRICLE: TRICUSPID VALVE: MITRAL VALVE: PULMONIC VALVE: AORTIC VALVE: PERICARDIAL EFFUSION:NONE AORTIC ROOT: LEFT VENTRICULAR WALL MOTION: PARADOXICAL SEPTUM. MODERATE GLOBAL HYPOKENSIS. DOPPLER/COLOR FLOW: MILD TRICUSPID REGURGITATION. COMMENTS: PARADOXICAL SEPTUM. MODERATE GLOBAL HYPOKENSIS. EJECTION FRACTION 35-40%. NO EFFUSION. Conclusions/Impression: A/ LILY likely volume depletion/ hypotension. CKD III with proteinuria. Hypovolemic hyponatremia. Hypocalcemia. HTN complicated by hypotension. DM II with CKD. Iron Deficiency Anemia. Systolic CHF, chronic. P/ Continue current POC and Medications. Start gentle IVF. Monitor volume status due to CHF. Consider IV iron if persistent iron deficiency. Check occult stool. Give Vitamin D. AM Labs. Check A1C. Daily weight. No NSAIDs. Change diet to ADA. Thank you kindly for the consultation. The case was discussed with Mr. Villalpando and his . Records from [facility] reviewed.
[2018-04-11] MEDS ORDERED: NA CHLORIDE 0.9% 1,000 ML IV SCH (23:00)
[2018-04-12 05:34] LABS: Absolute Lymphocytes (CBC) 0.8 K/uL (0.7-4.9); Absolute Monocytes 1.1 K/uL (0.1-1.3); Absolute Neutrophil 8.8 K/uL (1.8-8.0); Basophils % 0.3 % (0-1.3); Eosinophils % 0.7 % (0-4.4); Hematocrit 30.3 % (39.6-49.0); Lymphocytes % 7.8 % (15.3-44.8); MCH 26.8 pg (27.0-35.0); MCV 79.7 fL (80-100); Monocytes % 10.2 % (3.3-12.3); RBC Red Blood Cell Count 3.81 M/uL (4.33-5.43)
[2018-04-12 05:39] LABS: Urine Appearance CLOUDY; Urine Bilirubin NEGATIVE (NEG); Urine Blood 3+ (NEG); Urine Color YELLOW; Urine Glucose NEGATIVE (NEG); Urine Protein 1+ (NEG); Urine Specific Gravity 1.015 (1.005-1.030)
[2018-04-12 06:09] LABS: Albumin 3.1 g/dL (3.2-5.5); Ferritin 594.8 ng/ml (23.9-336.2); Folic Acid, (Folate) 9.6 ng/ml (>5.21); Phosphorus 3.5 mg/dL (2.5-4.3); Potassium 4.1 mEq/L (3.6-5.0); Thyroid Stimulating Hormone 6.18 uIU/mL (0.34-5.60)
[2018-04-12 06:21] LABS: Urine Culture Reflex Order NOT NEEDED
[2018-04-12 06:23] LABS: Urine RBC 20-50 /HPF (NONE SEEN)
[2018-04-12 06:24] LABS: Urine Bacteria 20-50 /HPF (NONE SEEN); Urine Coarse Granular Casts 0-5 /LPF (NONE SEEN)
--- NOTE | 2018-04-12 08:17 | CON ---
Date of Consultation: 04/11/[address] Phelps's service on 04/10/2018. I saw the patient on 04/11/2018. Reason For Consultation: Hypotension, congestive heart failure, and renal failure. History Of Present Illness: Mr. Villalpando is a 62-year-old male. He is known to us from the past. In 2014, approximately 3 years ago in February, Dr. Nowak performed the heart catheterizatio n and a stent of the ramus. At that time, he had some circumflex and RCA disease . Follow up ejection fraction then was 30% to 35%. I think that he has been seen intermittently by another ca rdiologist. He has been getting Entresto along with Ranexa for his congestive heart failure and serena nary artery disease. He had a bypass surgery. He came in with . Troponin was 0.05. BNP was 1488. His sodium was 121. White count was 17,000, hemoglobin 9.6. His chest x-ray did not reve al any congestive heart failure . Denied any PND or orthopnea. He has had some trace peda l edema. No palpitation and no syncope. Past Medical History: Includes diabetes, chronic renal disease, dyslipidemia, hypertension, coronary artery disease status post stent, and congestive heart failure. Allergies: NONE. Review of Systems: Negative. Social History: Negative. Family History: Noncontributory. Medications: At home include Entresto, aspirin, Plavix, insulin, Lipitor, and Ranexa. Physical Examination: General: He is in no acute distress. Vital Signs: Stable. He is afebrile. HEENT: Negative. Neck: Supple without any bruit, lymphadenopathy, JVD, or thyromegaly. Chest: Clear to auscultation and percussion. Cardiac: Revealed a regular rate and rhythm with S3 gallops. No murmurs or rubs. Abdomen: Benign. Extremities: Revealed no clubbing, cyanosis. He had trace edema. Diagnostic Data: As stated earlier. Assessment And Plan: 1.Acute exacerbation of chronic renal failure. 2.Acute exacerbation of chronic systolic congestive heart failure. 3.Hypotension secondary to polypharmacy. I am concerned about his white count being elevated and sh ould make sure he does not have any infection. 4.History of coronary artery disease, status post stent in 2014 of the ramus with known circumflex a nd RCA disease, now on Ranexa. No chest pain reported. 5.Dyslipidemia. 6.Diabetes. The patient's Entresto has been held . I think he should be on diuretic, car vedilol once his blood pressure tolerates it. Another echocardiogram is pending now. I will discuss the case further with Dr. Phelps, but the patient can move out of the ICU. Renal consultation is baljit mmended. ANKIT/LÓPEZ Voice ID: [id number] Report ID: [id number]
--- NOTE | 2018-04-12 08:23 | P.PN ---
Date of Service: 04/12/18 Vital Signs Temp Pulse Resp BP Pulse Ox 97.6 F 80 18 101/54 L 94 04/12/18 04:00 04/12/18 04:00 04/12/18 04:00 04/12/18 04:00 04/12/18 04:00 Medications Acetaminophen (Tylenol -Extra Strength) 500 mg PO Q4HP PRN PRN Reason: [id number] Stop: 05/10/18 19:28 Last Admin: 04/11/18 11:05 Dose: 500 mg Alprazolam (Xanax) 0.25 mg PO BEDTIME PRN PRN PRN Reason: INSOMNIA Stop: 05/10/18 19:28 Last Admin: 04/11/18 21:32 Dose: 0.25 mg Aspirin (Aspirin Chewable) 81 mg PO DAILY ILDEFONSO Stop: 05/11/18 09:01 Last Admin: 04/11/18 09:19 Dose: 81 mg Atorvastatin Calcium (Lipitor) 40 mg PO BEDTIME ILDEFONSO Stop: 05/11/18 21:01 Last Admin: 04/11/18 21:31 Dose: 40 mg Cholecalciferol (Vitamin D 5,000 Iu Cap) 5,000 unit PO DAILY ILDEFONSO Stop: 05/12/18 09:01 Clopidogrel Bisulfate (Plavix) 75 mg PO DAILY ILDEFONSO Stop: 05/11/18 09:01 Last Admin: 04/11/18 09:19 Dose: 75 mg Heparin Sodium (Porcine) (Heparin 5,000 Units/Ml) 5,000 unit SQ Q12HR ILDEFONSO Stop: 05/11/18 09:01 Last Admin: 04/11/18 21:31 Dose: 5,000 unit Ferric Sodium Gluconate Complex 125 mg/ Sodium Chloride 110 mls @ 100 mls/hr IV ONCE ONE Stop: 04/12/18 09:35 Sodium Chloride (Ns 1000 Ml Ivbag) 1,000 mls @ 75 mls/hr IV .[id number] [facility] Stop: 04/12/18 22:19 Insulin Human NPH (Novolin N (Humulin N)) 9 units SQ BIDWM ILDEFONSO Stop: 05/11/18 08:01 Last Admin: 04/11/18 18:04 Dose: 9 units Levothyroxine Sodium (Synthroid) 0.05 mg PO [id number] [facility] Stop: 05/12/18 08:16 Ondansetron HCl (Zofran) 4 mg IV Q6HP PRN PRN Reason: NAUSEA / VOMITING Stop: 05/10/18 19:28 Sodium Chloride (Normal Saline Flush) 10 ml IV BID [facility] Stop: 05/10/18 21:01 Last Admin: 04/11/18 21:31 Dose: 10 ml Sodium Chloride (Nacl Tabs) 1 gm PO TIDWM [facility] Stop: 04/13/18 08:01 Assessment/ Plan: Nephrology. CPS stable without CP or SOB. No acute events overnight. Nurse reports persistent orthostatic hypotension. Patient reports malaise & weakness with hypotension. Vitals, medications, blood work and imaging reviewed in the chart. General: Alert, In no apparent distress, Oriented x3, Cooperative HEENT: Atraumatic, PERRLA Neck: Supple Respiratory: Clear to auscultation bilaterally Cardiovascular: No edema, Regular rate/rhythm, No rubs Gastrointestinal: Soft and benign, Non-distended Musculoskeletal: No clubbing, No contractures Integumentary: No rashes, No cyanosis Neurological: Normal speech Blood work reviewed in the chart. Na 124; Cr 2.87 Imagings Data: EXAM DESCRIPTION: RAD - Chest Single View - 04/10/2018 5:54 pm CLINICAL HISTORY: Chest pain, GI bleeding. COMPARISON: 03/08/2015 FINDINGS: Portable technique limits examination quality. The lungs are grossly clear. The heart is normal in size. No displaced fractures. IMPRESSION: No acute intrathoracic process suspected. HEIGHT: 5 ft 4 in WEIGHT: 192 lb 2 oz DATE OF STUDY: 04/11/[address]: 2-DIMENSIONAL: YES M.MODE: YES DOPPLER: YES COLOR FLOW: YES TDS: NO PORTABLE: NO DEFINITY: NO BUBBLE STUDY: NO DIAGNOSIS: CONGESTIVE HEART FAILURE CARDIAC HISTORY: CATHERIZATION: YES SURGERY: NO PROSTHETIC VALVE: NO PACEMAKER: NO MEASUREMENTS (cm) DIASTOLIC (NORMALS) SYSTOLIC (NORMALS) IVSd 1.2 (0.6-1.2) LA Diam 4.2 (1.9-4.0) LVEF 35-40% LVIDd 5.5 (3.5-5.7) LVIDs 4.3 (2.0-3.5) %FS 23% LVPWd 1.2 (0.6-1.2) Ao Diam 3.2 (2.0-3.7) 2 DIMENSIONAL ASSESSMENT: RIGHT ATRIUM: LEFT ATRIUM: RIGHT VENTRICLE: LEFT VENTRICLE: TRICUSPID VALVE: MITRAL VALVE: PULMONIC VALVE: AORTIC VALVE: PERICARDIAL EFFUSION:NONE AORTIC ROOT: LEFT VENTRICULAR WALL MOTION: PARADOXICAL SEPTUM. MODERATE GLOBAL HYPOKENSIS. DOPPLER/COLOR FLOW: MILD TRICUSPID REGURGITATION. COMMENTS: PARADOXICAL SEPTUM. MODERATE GLOBAL HYPOKENSIS. EJECTION FRACTION 35-40%. NO EFFUSION. Conclusions/Impression: A/ LILY likely volume depletion/ hypotension. CKD III with proteinuria. Hypovolemic hyponatremia with elevated ADH level. Hypocalcemia. HTN complicated by orthostatic hypotension may be due to DM autonomic neuropathy. DM II with CKD and Neuropathy. Iron Deficiency Anemia. Systolic CHF, chronic. P/ Continue current POC and Medications. Give another liter of NS. Give salt tablets X3 doses. Fluid restriction due to hyponatremia. If the patient does have DM autonomic neuropathy, it will be difficult to control in the setting of systolic CHF. Give a dose of IV iron today. Follow up occult stool. AM Labs. Daily weight. No NSAIDs.
[2018-04-12] MEDS ORDERED: SOD FERRIC GLUC COMPLX/SUCROSE 125 MG in NA CHLORIDE 0.9% 100 ML IV ONE (08:30)
[2018-04-12] MEDS: VITAMIN D 5,000 UNIT CAP PO SCH (08:53)
[2018-04-12] MEDS: LEVOTHYROXINE SOD 0.05 MG TABLET PO SCH (08:53)
[2018-04-12] MEDS: NPH (HUMAN) 100 UNITS/ML INSULIN SQ SCH ×2 (08:53→17:31)
[2018-04-12] MEDS: CLOPIDOGREL 75 MG TABLET PO SCH (08:53)
[2018-04-12] MEDS: ASPIRIN 81 MG CHEWABLE TABLET PO SCH (08:53)
[2018-04-12] MEDS: HEPARIN 5000 UNIT/ML 1 ML VIAL SQ SCH ×2 (08:54→21:59)
[2018-04-12] MEDS: SODIUM CHLORIDE 1 GM TAB PO SCH ×3 (08:55→17:31)
[2018-04-12] MEDS ORDERED: NA CHLORIDE 0.9% 1,000 ML IV SCH (09:00)
[2018-04-12 10:00] LABS: A1c Component 0.72 mg/dL; Hemoglobin A1c 8.6 % (4-6.0)
[2018-04-12] MEDS: CEFTRIAXONE/SWI 1gm 1 GM/10 ML SYR IV SCH (10:30)
--- NOTE | 2018-04-12 14:00 | P.PN ---
Subjective Date of Service: 04/12/18 Chief Complaint: syncope / hypotension Patient seen and examined at bedside. Chart reviewed. Case discussed with cardiology. Patient states that he does not have any complaints to offer so denies having any chest pain or shortness of breath at this time. Daughter-in- law educated extensively during the disease process and the need for proper intervention here in the hospital. [id number] demonstrated understanding and agrees with the plan at this time to observe the patient. patient to work with PT here in the hospital. Nephrology reccs appreciated and pt demonstrated understanding of his disease process. Review of Systems General: As per HPI Physical Examination - Vital Signs Temperature: 97.4 F Blood Pressure: 115/60 Pulse: 83 Respirations: 20 Pulse Ox (%): 96 - Physical Exam General: Alert, In no apparent distress HEENT: Atraumatic, PERRLA, EOMI Neck: Supple, JVD not distended Respiratory: Clear to auscultation bilaterally, Normal air movement Cardiovascular: Regular rate/rhythm, Normal S1 S2 Gastrointestinal: Normal bowel sounds, No tenderness Musculoskeletal: No tenderness Integumentary: No rashes Neurological: Normal speech, Normal tone, Normal affect Lymphatics: No axilla or inguinal lymphadenopathy - Studies Medications List Reviewed: Yes Assessment & Plan - Problems (Diagnosis) (1) Syncope Onset Date: 04/11/18 Current Visit: Yes Status: Acute Plan: Most Likley 2.2 to hypotension due to multifactorial disease process -Stop Entresto for now -IV fluids and 2gm of NA -PT Consulted. -Fall precautions given Qualifiers: Syncope type: vasovagal syncope Qualified Code(s): R55 - Syncope and collapse (2) Hypotension Onset Date: 04/11/18 Current Visit: Yes Status: Acute Plan: Most Likley 2.2 to Entersto. -Stop Entresto. -IV fluids at 75 ml/hr -nephrology consulted. Appreciate reccs Qualifiers: Hypotension type: hypotension due to drug Qualified Code(s): I95.2 - Hypotension due to drugs (3) Chronic kidney disease, stage 3 Onset Date: 04/11/18 Current Visit: Yes Status: Acute Plan: Acute on Chronic Kidney disease -Most likely acute worsening 2.2 to Entresto. Stop at this time -Cardiology Consulted. Appreciated reccs -Npehrology Consulted. Appreciated reccs -Medina in place, UO adequate and clear in color now -Daily weight and fluid restriction orally (4) Congestive heart failure Onset Date: 04/11/18 Current Visit: Yes Status: Acute Plan: H/o CHF with EF of 20% per family at bedside -Currently on Entresto and Ranexa. Stop Entresto due to ARF -ECHO with EF of 30 - 40% with Hypokenesis -Pt was On Lasix which were discontinue but [facility] Due to Hypotension and Hyponatremia. Pt has not had Aldactone in the past. -Cardiology consulted. Appreciate Rec -Coreg low dose -Nephrology consulted. Appreciate rec Qualifiers: Heart failure type: systolic (5) Diabetes mellitus Onset Date: 02/28/15 Current Visit: No Status: Chronic Qualifiers: Diabetes mellitus type: type 2 Diabetes mellitus intermission coordinator insulin use: without care home use Diabetes mellitus complication status: without complication Qualified Code(s): E11.9 - Type 2 diabetes mellitus without complications (6) Hyperlipidemia Onset Date: 02/28/15 Current Visit: No Status: Chronic Qualifiers: Hyperlipidemia type: mixed hyperlipidemia Qualified Code(s): E78.2 - Mixed hyperlipidemia (7) Hypertension Onset Date: 02/28/15 Current Visit: No Status: Chronic Qualifiers: Hypertension type: essential hypertension Qualified Code(s): I10 - Essential (primary) hypertension
[2018-04-12] MEDS: ATORVASTATIN 40 MG TAB PO SCH (21:59)
[2018-04-13] MEDS: ACETAMINOPHEN 500 MG TAB PO PRN ×3 (01:41→22:57)
[2018-04-13 05:25] LABS: Absolute Monocytes 1.3 K/uL (0.1-1.3); Absolute Neutrophil 6.8 K/uL (1.8-8.0); Basophils % 0.3 % (0-1.3); Eosinophils % 0.6 % (0-4.4); Hematocrit 27.3 % (39.6-49.0); Lymphocytes % 11.3 % (15.3-44.8); MCH 27.1 pg (27.0-35.0); MPV 8.8 fL (7.6-11.3); Monocytes % 13.7 % (3.3-12.3); RBC Red Blood Cell Count 3.37 M/uL (4.33-5.43)
[2018-04-13] MEDS: LEVOTHYROXINE SOD 0.05 MG TABLET PO SCH (05:28)
[2018-04-13 05:42] LABS: Potassium 4.7 mEq/L (3.6-5.0)
[2018-04-13] MEDS: SODIUM CHLORIDE 1 GM TAB PO SCH (08:00)
[2018-04-13] MEDS: CEFTRIAXONE/SWI 1gm 1 GM/10 ML SYR IV SCH (09:00)
[2018-04-13] MEDS: NPH (HUMAN) 100 UNITS/ML INSULIN SQ SCH ×2 (09:37→17:31)
[2018-04-13] MEDS: CLOPIDOGREL 75 MG TABLET PO SCH (09:38)
[2018-04-13] MEDS: HEPARIN 5000 UNIT/ML 1 ML VIAL SQ SCH ×2 (09:38→21:18)
[2018-04-13] MEDS: ASPIRIN 81 MG CHEWABLE TABLET PO SCH (09:38)
[2018-04-13] MEDS: VITAMIN D 5,000 UNIT CAP PO SCH (09:38)
[2018-04-13] MEDS: Meropenem 1,000 MG in NA CHLORIDE 0.9% 100 ML IV SCH ×2 (12:16→21:18)
--- NOTE | 2018-04-13 15:25 | PN ---
Date of Progress Note: 04/13/2018 Chief Complaint: Chronic kidney disease stage 3, acute kidney injury associated with cardiorenal syndrome and hyponatremia. The patient came to the hospital and was found to have sodium was 121. He was started on mild hydration and sodium level has improved. Creatinine level improved from 3.22 to 1.88. The patient has nonoliguric urine output during this hospitalization. He did not require dialysis. Past Medical History: The patient has multiple medical problems including history of diabetes mellitus, severe coronary artery disease, congestive heart failure with ejection fraction 20-25%. The patient is feeling better today. Review of Systems: The patient denies chest pain, palpitation. Physical Examination: Lungs: Clear to auscultation bilaterally. Heart: S1, S2. Abdomen: Soft, benign. Extremities: Slight edema. Laboratory Data: Sodium 131, potassium 4.7, chloride 99, CO2 24, BUN 32, creatinine 1.88, glucose is 115, calcium 8.2, and uric acid 7.0. Urinalysis showed wbc's from 5-10, rbc's from 20-50, protein 1+ to 2+ and urine protein creatinine ratio is 0.54. Assessment: 1. Acute on chronic kidney injury, complicated by hyponatremia. The patient has cardiorenal syndrome and gentle hydration was used to control electrolytes and correct severe hyponatremia. The patient has history of chronic kidney disease stage 3. Baseline creatinine level is 1.8. Proteinuria is present and this may go along with diabetic kidney. Workup was initiated to rule out monoclonal gammopathy of unknown significance. 2. Acute kidney injury was multifactorial due to prerenal azotemia. The patient responded to hydration. 3. Congestive heart failure. At this point, appears to be compensated. I spent 36 min including 25 min to coordinate care plan. TERRENCE/LÓPEZ Voice ID: [id number] Report ID: [id number] DINA
--- NOTE | 2018-04-13 16:30 | P.PN ---
Subjective Date of Service: 04/13/18 Chief Complaint: syncope / hypotension The patient feels slightly better today, no fever, no further syncopal episode. Physical Examination - Vital Signs Temperature: 98.1 F Blood Pressure: 131/67 Pulse: 89 Respirations: 20 Pulse Ox (%): 97 - Physical Exam General: Alert, In no apparent distress HEENT: Atraumatic, PERRLA, EOMI Neck: Supple, JVD not distended Respiratory: Clear to auscultation bilaterally, Normal air movement Cardiovascular: Regular rate/rhythm, No gallops Gastrointestinal: Normal bowel sounds, No tenderness Musculoskeletal: No tenderness Integumentary: No rashes Neurological: Normal speech, Normal tone, Normal affect - Studies Microbiology Data (last 24 hrs): 04/10/18 19:33 Clean Catch Urine [place] Count - Final >100,000 CFU/ML. 04/10/18 19:33 Clean Catch Urine - Final Escherichia Coli Medications List Reviewed: Yes Assessment And Plan - Current Problems (Diagnosis) (1) Acute kidney injury superimposed on CKD Current Visit: Yes Status: Acute (2) Congestive heart failure Onset Date: 04/11/18 Current Visit: Yes Status: Acute Qualifiers: Heart failure type: systolic (3) Syncope Onset Date: 04/11/18 Current Visit: Yes Status: Acute Qualifiers: Syncope type: vasovagal syncope Qualified Code(s): R55 - Syncope and collapse (4) Diabetes mellitus Onset Date: 02/28/15 Current Visit: No Status: Chronic Qualifiers: Diabetes mellitus type: type 2 Diabetes mellitus terminal superintendent insulin use: without residential use Diabetes mellitus complication status: without complication Qualified Code(s): E11.9 - Type 2 diabetes mellitus without complications (5) UTI due to extended-spectrum beta lactamase (ESBL) producing Escherichia coli Current Visit: Yes Status: Acute - Plan #1 Syncope: etiology is multifactorial, including orthostatic hypotension, hyponatremia, UTI and volume depletion. No further episodes during his admission. #2 Acute on CKD: due to volume depletion. Creatinine was decreasing after gently hydration. F/U nephrology team. #3 chronic systolic CHF: No signs of acute decompensation at the moment. F/U Cardiology team. #4 UTI: E.Coli with ESBL was confirmed. Will change antibiotics to Meropenem. He may needs to continue it for 2 weeks. Will order PICC line.
[2018-04-13] MEDS ORDERED: Meropenem 1000 MG/VIAL IV SCH (17:00)
--- NOTE | 2018-04-13 17:11 | RAD REPORT ---
EXAM DESCRIPTION: US - Urinary Bladder - 04/13/2018 4:51 pm FINDINGS: Bladder volume was obtained following removal of the [place] catheter. The postprocedure vol ume was 25 milliliters. No bladder wall thickening or mass.
--- NOTE | 2018-04-13 17:15 | RAD REPORT ---
EXAM DESCRIPTION: US - Renal Ultrasound-Complete - 04/13/2018 4:51 pm CLINICAL HISTORY: Chronic kidney disease, acute renal failure COMPARISON: Ultrasound February 2016 FINDINGS: The right kidney measures 11.5 x 4.9 x 4.7 cm. The left kidney measures 10.6 x 5.6 x 4.2 cm.. Renal cortical thickness and echogenicity are normal. No hydronephrosis or suspicious renal mass . Renal size has decreased from 2015. 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 No perinephric abnormality. IMPRESSION: No hydronephrosis or suspicious renal mass. Kidneys measure slightly smaller than 2015 which could be technical artifact or true minimal volume l oss since 2015.
--- NOTE | 2018-04-13 20:12 | P.PN ---
Date of Service: 04/13/18 Vital Signs Temp Pulse Resp BP Pulse Ox 98.1 F 89 20 131/67 97 04/13/18 16:34 04/13/18 16:34 04/13/18 16:34 04/13/18 16:34 04/13/18 16:34 Medications Acetaminophen (Tylenol -Extra Strength) 500 mg PO Q4HP PRN PRN Reason: [id number] Stop: 05/10/18 19:28 Last Admin: 04/13/18 14:25 Dose: 500 mg Alprazolam (Xanax) 0.25 mg PO BEDTIME PRN PRN PRN Reason: INSOMNIA Stop: 05/10/18 19:28 Last Admin: 04/11/18 21:32 Dose: 0.25 mg Aspirin (Aspirin Chewable) 81 mg PO DAILY ILDEFONSO Stop: 05/11/18 09:01 Last Admin: 04/13/18 09:38 Dose: 81 mg Atorvastatin Calcium (Lipitor) 40 mg PO BEDTIME ILDEFONSO Stop: 05/11/18 21:01 Last Admin: 04/12/18 21:59 Dose: 40 mg Cholecalciferol (Vitamin D 5,000 Iu Cap) 5,000 unit PO DAILY ILDEFONSO Stop: 05/12/18 09:01 Last Admin: 04/13/18 09:38 Dose: 5,000 unit Clopidogrel Bisulfate (Plavix) 75 mg PO DAILY ILDEFONSO Stop: 05/11/18 09:01 Last Admin: 04/13/18 09:38 Dose: 75 mg Heparin Sodium (Porcine) (Heparin 5,000 Units/Ml) 5,000 unit SQ Q12HR ILDEFONSO Stop: 05/11/18 09:01 Last Admin: 04/13/18 09:38 Dose: 5,000 unit Meropenem 1,000 mg/ Sodium (Chloride) 100 mls @ 100 mls/hr IV Q12HR ILDEFONSO Stop: 05/13/18 10:01 Last Admin: 04/13/18 12:16 Dose: 100 mls Insulin Human NPH (Novolin N (Humulin N)) 9 units SQ BIDWM ILDEFONSO Stop: 05/11/18 08:01 Last Admin: 04/13/18 17:31 Dose: 9 units Levothyroxine Sodium (Synthroid) 0.05 mg PO [id number] ILDEFONSO Stop: 07/06/18 08:16 Last Admin: 04/13/18 05:28 Dose: 0.05 mg Ondansetron HCl (Zofran) 4 mg IV Q6HP PRN PRN Reason: NAUSEA / VOMITING Stop: 05/10/18 19:28 Sodium Chloride (Normal Saline Flush) 10 ml IV BID ILDEFONSO Stop: 05/10/18 21:01 Last Admin: 04/13/18 09:00 Dose: 10 ml Microbiology Results 04/10/18 19:33 Clean Catch Urine [place] Count - Final >100,000 CFU/ML. 04/10/18 19:33 Clean Catch Urine - Final Escherichia Coli Assessment/ Plan: Nephrology. CPS stable without CP or SOB. No acute events overnight. Feeling better today with less weakness and dizziness. After visiting with the patient, the nurse advised me of the nephrology consult confusion. Vitals, medications, blood work and imaging reviewed in the chart. General: Alert, In no apparent distress, Oriented x3, Cooperative HEENT: Atraumatic, PERRLA Neck: Supple Respiratory: Clear to auscultation bilaterally Cardiovascular: No edema, Regular rate/rhythm, No rubs Gastrointestinal: Soft and benign, Non-distended Musculoskeletal: No clubbing, No contractures Integumentary: No rashes, No cyanosis Neurological: Normal speech Blood work reviewed in the chart. Na 124; Cr 2.87 Imagings Data: EXAM DESCRIPTION: RAD - Chest Single View - 04/10/2018 5:54 pm CLINICAL HISTORY: Chest pain, GI bleeding. COMPARISON: 03/08/2015 FINDINGS: Portable technique limits examination quality. The lungs are grossly clear. The heart is normal in size. No displaced fractures. IMPRESSION: No acute intrathoracic process suspected. HEIGHT: 5 ft 4 in WEIGHT: 192 lb 2 oz DATE OF STUDY: 04/11/[address]: 2-DIMENSIONAL: YES M.MODE: YES DOPPLER: YES COLOR FLOW: YES TDS: NO PORTABLE: NO DEFINITY: NO BUBBLE STUDY: NO DIAGNOSIS: CONGESTIVE HEART FAILURE CARDIAC HISTORY: CATHERIZATION: YES SURGERY: NO PROSTHETIC VALVE: NO PACEMAKER: NO MEASUREMENTS (cm) DIASTOLIC (NORMALS) SYSTOLIC (NORMALS) IVSd 1.2 (0.6-1.2) LA Diam 4.2 (1.9-4.0) LVEF 35-40% LVIDd 5.5 (3.5-5.7) LVIDs 4.3 (2.0-3.5) %FS 23% LVPWd 1.2 (0.6-1.2) Ao Diam 3.2 (2.0-3.7) 2 DIMENSIONAL ASSESSMENT: RIGHT ATRIUM: LEFT ATRIUM: RIGHT VENTRICLE: LEFT VENTRICLE: TRICUSPID VALVE: MITRAL VALVE: PULMONIC VALVE: AORTIC VALVE: PERICARDIAL EFFUSION:NONE AORTIC ROOT: LEFT VENTRICULAR WALL MOTION: PARADOXICAL SEPTUM. MODERATE GLOBAL HYPOKENSIS. DOPPLER/COLOR FLOW: MILD TRICUSPID REGURGITATION. COMMENTS: PARADOXICAL SEPTUM. MODERATE GLOBAL HYPOKENSIS. EJECTION FRACTION 35-40%. NO EFFUSION. EXAM DESCRIPTION: US - Renal Ultrasound-Complete - 04/13/2018 4:51 pm CLINICAL HISTORY: Chronic kidney disease, acute renal failure COMPARISON: Ultrasound February 2016 FINDINGS: The right kidney measures 11.5 x 4.9 x 4.7 cm. The left kidney measures 10.6 x 5.6 x 4.2 cm.. Renal cortical thickness and echogenicity are normal. No hydronephrosis or suspicious renal mass. Renal size has decreased from 2014. 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 No perinephric abnormality. IMPRESSION: No hydronephrosis or suspicious renal mass. Conclusions/Impression: A/ LILY likely volume depletion/ hypotension improving with IVF. CKD III with proteinuria. Hypovolemic hyponatremia with elevated ADH level. Hypocalcemia. HTN complicated by orthostatic hypotension/ volume depletion. 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 Iron Deficiency Anemia. Systolic CHF, chronic. P/ Continue current POC and Medications. Consider another liter of NS; caution due to CHF. Oral fluid restriction due to hyponatremia. Recommend another dose of IV iron. Continue to monitor orthostasis; consider a tilt table test if persistent. AM Labs. Daily weight. No NSAIDs. Addendum: Dr. Randhawa was initially consulted on this patient. Dr. Hernandez was then consulted by Dr. Cardona because the patient was seen by Dr. Hernandez previously. Today the consult for Dr. Hernandez was rescinded by Dr. Cardona because of a prior relationship with her group. I will sign off on the patient today. Please feel free to contact or consult me if further assistance is needed. Thank you.
[2018-04-13] MEDS: ATORVASTATIN 40 MG TAB PO SCH (21:18)
[2018-04-13] MEDS: ALPRAZOLAM 0.25 MG TABLET PO PRN (22:58)
[2018-04-14] MEDS: LEVOTHYROXINE SOD 0.05 MG TABLET PO SCH (05:29)
[2018-04-14 05:30] LABS: Absolute Lymphocytes (CBC) 1.2 K/uL (0.7-4.9); Absolute Monocytes 0.9 K/uL (0.1-1.3); Absolute Neutrophil 3.8 K/uL (1.8-8.0); Basophils % 0.9 % (0-1.3); Eosinophils % 1.8 % (0-4.4); Hematocrit 25.5 % (39.6-49.0); Lymphocytes % 19.5 % (15.3-44.8); MCH 26.3 pg (27.0-35.0); MCV 81.6 fL (80-100); MPV 9.1 fL (7.6-11.3); Monocytes % 14.5 % (3.3-12.3); RBC Red Blood Cell Count 3.12 M/uL (4.33-5.43)
[2018-04-14 05:45] LABS: Potassium 4.6 mEq/L (3.6-5.0)
--- NOTE | 2018-04-14 08:55 | RAD REPORT ---
EXAM DESCRIPTION: RAD - Chest Single View - 04/14/2018 2:03 am CLINICAL HISTORY: PICC line placement. COMPARISON: None. FINDINGS: Portable chest was obtained following placement of a right upper extremity PICC line. The catheter tip is in the proximal SVC.
[2018-04-14] MEDS: VITAMIN D 5,000 UNIT CAP PO SCH (09:45)
[2018-04-14] MEDS: ASPIRIN 81 MG CHEWABLE TABLET PO SCH (09:46)
[2018-04-14] MEDS: CLOPIDOGREL 75 MG TABLET PO SCH (09:46)
[2018-04-14] MEDS: NPH (HUMAN) 100 UNITS/ML INSULIN SQ SCH ×2 (09:46→17:00)
[2018-04-14] MEDS: Meropenem 1,000 MG in NA CHLORIDE 0.9% 100 ML IV SCH ×2 (09:46→21:19)
[2018-04-14] MEDS: HEPARIN 5000 UNIT/ML 1 ML VIAL SQ SCH ×2 (09:47→21:19)
--- NOTE | 2018-04-14 16:51 | P.DS ---
Admission Date: 04/10/18 Discharge Date: 04/14/18 Disposition: TRANSFER TO SNF - MEDICAL Discharge Condition: GOOD Reason for Admission: syncope / hypotension - Problems (1) UTI due to extended-spectrum beta lactamase (ESBL) producing Escherichia coli Current Visit: Yes Status: Acute (2) Acute kidney injury superimposed on CKD Current Visit: Yes Status: Acute (3) Chronic kidney disease, stage 3 Onset Date: 04/11/18 Current Visit: Yes Status: Acute (4) Congestive heart failure Onset Date: 04/11/18 Current Visit: Yes Status: Acute Qualifiers: Heart failure type: systolic (5) Hypotension Onset Date: 04/11/18 Current Visit: Yes Status: Acute Qualifiers: Hypotension type: hypotension due to drug Qualified Code(s): I95.2 - Hypotension due to drugs (6) Syncope Onset Date: 04/11/18 Current Visit: Yes Status: Acute Qualifiers: Syncope type: vasovagal syncope Qualified Code(s): R55 - Syncope and collapse (7) Diabetes mellitus Onset Date: 02/28/15 Current Visit: No Status: Chronic Qualifiers: Diabetes mellitus type: type 2 Diabetes mellitus intermediate card tender insulin use: without mcc use Diabetes mellitus complication status: without complication Qualified Code(s): E11.9 - Type 2 diabetes mellitus without complications (8) Hyperlipidemia Onset Date: 02/28/15 Current Visit: No Status: Chronic Qualifiers: Hyperlipidemia type: mixed hyperlipidemia Qualified Code(s): E78.2 - Mixed hyperlipidemia (9) Hypertension Onset Date: 02/28/15 Current Visit: No Status: Chronic Qualifiers: Hypertension type: essential hypertension Qualified Code(s): I10 - Essential (primary) hypertension Brief History of Present Illness: Patient is a 62-year-old gentleman who came to the hospital with lightheadedness. A couple days prior he had a episode where he passed out completely. Patient's daughter in-law was not aware until the following day. Patient was recently started on a couple of new new medicines for his heart. He was released from [facility] About a week ago and at that time he was running a low blood pressure. Patient is unaware if he started a new medicine then but his [id number] states that at discharge he did have a couple of new medications including Entresto and Ranexa. This is most likely patient's cause of "low blood pressure". Unsure exactly what caused the patient 's syncopal event. It could be related to his low blood pressure in him developing orthostatics. Patient's renal function is also elevated and patient had his Lasix while at the hospital. We will adjust patient's medication and monitor his blood pressure once we resumed. We will check orthostatics. We will gently rehydrate patient. We will admit him to the hospital into the intensive care unit overnight to monitor him hemodynamically. Cardiology consultation as well. Hospital Course: He was admitted for mark POLLARD due to dehydration, UTI. Ucx grows ESBL. He was started on Merepem. His renal function is improved to baseline. He is discharged home on IV Merepem for 1 week via PICC line. Vital Signs/Physical Exam: Temp Pulse Resp BP Pulse Ox 99.0 F 84 18 112/57 L 98 04/14/18 12:00 04/14/18 12:00 04/14/18 12:00 04/14/18 12:00 04/14/18 12:00 General: Alert, In no apparent distress HEENT: Atraumatic, PERRLA, EOMI Neck: Supple, JVD not distended Respiratory: Clear to auscultation bilaterally, Normal air movement Cardiovascular: Regular rate/rhythm, Normal S1 S2 Gastrointestinal: Normal bowel sounds, No tenderness Musculoskeletal: No tenderness Integumentary: No rashes Neurological: Normal speech, Normal tone, Normal affect Lymphatics: No axilla or inguinal lymphadenopathy Laboratory Data at Discharge: WBC 6.0 K/uL (4.3-10.9) D 04/14/18 04:55 Hgb 8.2 g/dL (13.6-17.9) L 04/14/18 04:55 Hct 25.5 % (39.6-49.0) L 04/14/18 04:55 Plt Count 378 K/uL (152-406) 04/14/18 04:55 PT 15.6 SECONDS (9.5-12.5) H 04/10/18 17:50 INR 1.32 04/10/18 17:50 APTT 30.4 SECONDS (24.3-36.9) 04/10/18 17:50 Sodium 131 mEq/L (135-145) L 04/14/18 04:55 Potassium 4.6 mEq/L (3.6-5.0) 04/14/18 04:55 BUN 29 mg/dL (6-20) H 04/14/18 04:55 Creatinine 1.72 mg/dL (0.61-1.24) H 04/14/18 04:55 Glucose 189 mg/dL (65-120) H 04/14/18 04:55 Uric Acid 7.0 mg/dL (4.8-8.7) 04/13/18 04:56 Phosphorus 3.5 mg/dL (2.5-4.3) 04/12/18 04:39 Magnesium 2.0 mg/dL (1.8-2.5) 04/11/18 04:02 Total Bilirubin 0.8 mg/dL (0.3-1.2) 04/11/18 04:02 AST 13 IU/L (10-42) 04/11/18 04:02 ALT 9 IU/L (10-60) L 04/11/18 04:02 Alkaline Phosphatase 80 IU/L (42-121) 04/11/18 04:02 Troponin I 0.05 ng/mL (<0.03) H 04/11/18 04:02 B-Natriuretic Peptide 1929 pg/ml (<=100) H 04/11/18 04:02 Lipase 16 U/L (22-51) L 04/10/18 17:50 Home Medications: Aspirin Chewable [Aspirin Chewable*] 81 mg PO DAILY 04/10/18 Atorvastatin Calcium [Lipitor*] 40 mg PO BEDTIME 04/10/18 Clopidogrel Bisulfate [Plavix*] 1 tab PO DAILY 04/10/18 NPH, Human Insulin Isophane [Humulin N] 9 units SQ BIDWM 04/10/18 Ranolazine [Ranexa] 1,000 mg PO BID 04/10/18 Sacubitril/Valsartan [Entresto 24 mg-26 mg Tablet] 1 tab PO BID 04/10/18 Cholecalciferol (Vitamin D3) [Vitamin D 5,000 IU Cap*] 5,000 unit PO DAILY #30 cap 04/14/18 Levothyroxine [Synthroid*] 0.05 mg PO [id number] tablet 04/14/18 Meropenem [Merrem 1 GM/100 ML NS IVPB] 1 gm IV BID #14 bag 04/14/18 New Medications: Cholecalciferol (Vitamin D3) [Vitamin D 5,000 IU Cap*] 5,000 unit PO DAILY #30 cap Meropenem [Merrem 1 GM/100 ML NS IVPB] 1 gm IV BID #14 bag Diet: Renal Activity: Ad hannah Followup: Nigel Raymundo MD [ACTIVE - CAN ADMIT] - (Follow up in office in 2 weeks. Call to schedule an appointment.) Time spent managing pt's care (in minutes): 35
--- NOTE | 2018-04-14 18:24 | P.PN ---
Subjective Date of Service: 04/14/18 Chief Complaint: syncope / hypotension doing well, on IV Merepem Physical Examination - Vital Signs Temperature: 98.5 F Blood Pressure: 138/71 Pulse: 88 Respirations: 18 Pulse Ox (%): 97 - Physical Exam General: Alert, In no apparent distress HEENT: Atraumatic, PERRLA, EOMI Neck: Supple, JVD not distended Respiratory: Clear to auscultation bilaterally, Normal air movement Cardiovascular: Regular rate/rhythm, Normal S1 S2 Gastrointestinal: Normal bowel sounds, No tenderness Musculoskeletal: No tenderness Integumentary: No rashes Neurological: Normal speech, Normal tone, Normal affect Lymphatics: No axilla or inguinal lymphadenopathy - Studies Medications List Reviewed: Yes Assessment And Plan - Current Problems (Diagnosis) (1) UTI due to extended-spectrum beta lactamase (ESBL) producing Escherichia coli Current Visit: Yes Status: Acute (2) Acute kidney injury superimposed on CKD Current Visit: Yes Status: Acute (3) Chronic kidney disease, stage 3 Onset Date: 04/11/18 Current Visit: Yes Status: Acute (4) Congestive heart failure Onset Date: 04/11/18 Current Visit: Yes Status: Acute Qualifiers: Heart failure type: systolic (5) Hypotension Onset Date: 04/11/18 Current Visit: Yes Status: Acute Qualifiers: Hypotension type: hypotension due to drug Qualified Code(s): I95.2 - Hypotension due to drugs (6) Syncope Onset Date: 04/11/18 Current Visit: Yes Status: Acute Qualifiers: Syncope type: vasovagal syncope Qualified Code(s): R55 - Syncope and collapse (7) Diabetes mellitus Onset Date: 02/28/15 Current Visit: No Status: Chronic Qualifiers: Diabetes mellitus type: type 2 Diabetes mellitus shelter insulin use: without shelter use Diabetes mellitus complication status: without complication Qualified Code(s): E11.9 - Type 2 diabetes mellitus without complications (8) Hyperlipidemia Onset Date: 02/28/15 Current Visit: No Status: Chronic Qualifiers: Hyperlipidemia type: mixed hyperlipidemia Qualified Code(s): E78.2 - Mixed hyperlipidemia (9) Hypertension Onset Date: 02/28/15 Current Visit: No Status: Chronic Qualifiers: Hypertension type: essential hypertension Qualified Code(s): I10 - Essential (primary) hypertension - Plan --Cont IV ABX Merepem --He may have to complete ABX in hospital 5-7 days
[2018-04-14] MEDS: ATORVASTATIN 40 MG TAB PO SCH (21:19)
--- NOTE | 2018-04-14 22:38 | PN ---
Date of Progress Note: 04/14/2018 Subjective: The patient is doing well. No abdominal pain. No shortness of breath. Objective: Vital Signs: Blood pressure 112/57, pulse of 84, afebrile. Chest: Clear to auscultation. Heart: S1, S2. Regular. Abdomen: Soft, nontender. Extremities: No edema. Laboratory Data: H and H 8.2/25.5. Sodium 131, potassium 4.6, bicarb 26, BUN 29, creatinine 1.7, ca lcium 8.3. Medications: Current medications the patient on include; 1.Aspirin. 2.Meropenem. 3.Atorvastatin. 4.Tylenol. 5.Alprazolam. 6.Levothyroxine. 7.Insulin. 8.Cholecalciferol. Imaging: Renal ultrasound showing 11.5 x 10.6. Protein creatinine 0.5. Assessment And Plan: 1.Acute kidney injury, secondary to prerenal recover plateau close to his baseline. 2.Hypertension, controlled, optimal. Continue current medication. 3.Urinary tract infection, ESBL. Continue meropenem. 4.Diabetes as by primary. The patient is cleared from the renal standpoint for discharge planning to follow up in the office in 2 weeks with chemistry. VICKIE Voice ID: [id number] Report ID: [id number]
[2018-04-15] MEDS: LEVOTHYROXINE SOD 0.05 MG TABLET PO SCH (06:39)
[2018-04-15] MEDS: CLOPIDOGREL 75 MG TABLET PO SCH (09:57)
[2018-04-15] MEDS: NPH (HUMAN) 100 UNITS/ML INSULIN SQ SCH ×2 (09:57→17:44)
[2018-04-15] MEDS: VITAMIN D 5,000 UNIT CAP PO SCH (09:57)
[2018-04-15] MEDS: ASPIRIN 81 MG CHEWABLE TABLET PO SCH (09:58)
[2018-04-15] MEDS: HEPARIN 5000 UNIT/ML 1 ML VIAL SQ SCH ×2 (09:58→21:43)
[2018-04-15] MEDS: Meropenem 1,000 MG in NA CHLORIDE 0.9% 100 ML IV SCH ×2 (09:58→21:42)
--- NOTE | 2018-04-15 13:43 | P.PN ---
Subjective Date of Service: 04/15/18 Subjective: No new changes, Improving, Doing well Review of Systems 10-point ROS is otherwise unremarkable Physical Examination - Vital Signs Temperature: 98.6 F Blood Pressure: 112/57 Pulse: 82 Respirations: 18 Pulse Ox (%): 99 - Physical Exam General: Alert, In no apparent distress, Oriented x3 HEENT: Atraumatic, PERRLA, EOMI Neck: Supple, JVD not distended Respiratory: Clear to auscultation bilaterally, Normal air movement Cardiovascular: Regular rate/rhythm, Normal S1 S2 Gastrointestinal: Normal bowel sounds, Soft and benign, Non-distended, No tenderness Musculoskeletal: No clubbing, No swelling, No tenderness Neurological: Normal speech, Normal tone, Normal affect - Studies Medications List Reviewed: Yes Assessment & Plan - Problems (Diagnosis) (1) Congestive heart failure Onset Date: 04/11/18 Current Visit: Yes Status: Acute Qualifiers: Heart failure type: systolic (2) Hypotension Onset Date: 04/11/18 Current Visit: Yes Status: Acute Qualifiers: Hypotension type: hypotension due to drug Qualified Code(s): I95.2 - Hypotension due to drugs (3) Syncope Onset Date: 04/11/18 Current Visit: Yes Status: Acute Qualifiers: Syncope type: vasovagal syncope Qualified Code(s): R55 - Syncope and collapse (4) Chronic kidney disease, stage 3 Onset Date: 04/11/18 Current Visit: Yes Status: Acute (5) Diabetes mellitus Onset Date: 02/28/15 Current Visit: No Status: Chronic Qualifiers: Diabetes mellitus type: type 2 Diabetes mellitus terminal worker insulin use: without alf use Diabetes mellitus complication status: without complication Qualified Code(s): E11.9 - Type 2 diabetes mellitus without complications (6) Hyperlipidemia Onset Date: 02/28/15 Current Visit: No Status: Chronic Qualifiers: Hyperlipidemia type: mixed hyperlipidemia Qualified Code(s): E78.2 - Mixed hyperlipidemia (7) Hypertension Onset Date: 02/28/15 Current Visit: No Status: Chronic Qualifiers: Hypertension type: essential hypertension Qualified Code(s): I10 - Essential (primary) hypertension - Plan Plan: 1. AWAITING ARRANGEMENTS FOR PLACEMENT [facility]. CLINICALLY PATIENT APPEARS TO BE DOING MUCH BETTER. PATIENT SHOULD BE STABLE FOR DISCHARGE IN THE NEXT 48 HR ONCE INSURANCE APPROVAL IS GIVEN. CONTINUE WITH CURRENT PLAN OF CARE AT THIS TIME. - Advance Directives Does patient have a Living Will: No Does patient have a Durable POA for Healthcare: No - Code Status/Comfort Care Code Status: Full Code Time Spent Managing PTS Care (In Minutes): 25
[2018-04-15 13:56] LABS: Magnesium 2.1 mg/dL (1.8-2.5); Phosphorus 2.9 mg/dL (2.5-4.3)
[2018-04-15] MEDS: ATORVASTATIN 40 MG TAB PO SCH (21:42)
[2018-04-16] MEDS: LEVOTHYROXINE SOD 0.05 MG TABLET PO SCH (05:35)
[2018-04-16] MEDS: Meropenem 1,000 MG in NA CHLORIDE 0.9% 100 ML IV SCH ×2 (08:33→21:22)
[2018-04-16] MEDS: NPH (HUMAN) 100 UNITS/ML INSULIN SQ SCH ×2 (08:33→17:14)
[2018-04-16] MEDS: HEPARIN 5000 UNIT/ML 1 ML VIAL SQ SCH ×2 (08:34→21:23)
[2018-04-16] MEDS: VITAMIN D 5,000 UNIT CAP PO SCH (08:34)
[2018-04-16] MEDS: ASPIRIN 81 MG CHEWABLE TABLET PO SCH (08:34)
[2018-04-16] MEDS: CLOPIDOGREL 75 MG TABLET PO SCH (08:34)
--- NOTE | 2018-04-16 09:25 | P.PN ---
Subjective Date of Service: 04/16/18 Subjective: Ambulating, Improving Patient is doing much better and moving around with physical therapy. He has no complaints. Awaiting arrangements for group home facility placement Review of Systems 10-point ROS is otherwise unremarkable Physical Examination - Vital Signs Temperature: 98.1 F Blood Pressure: 120/60 Pulse: 90 Respirations: 20 Pulse Ox (%): 98 - Physical Exam General: Alert, In no apparent distress, Oriented x3, Oriented x2 HEENT: Atraumatic, Normocephalic Cardiovascular: Regular rate/rhythm, Normal S1 S2, No murmurs Capillary refill: Brisk Gastrointestinal: W/out hepatomegaly Musculoskeletal: No clubbing, No swelling, No contractures Integumentary: No rashes, No breakdown, No significant lesion Neurological: Normal gait, Normal speech - Studies Medications List Reviewed: Yes Assessment & Plan - Problems (Diagnosis) (1) Congestive heart failure Onset Date: 04/11/18 Current Visit: Yes Status: Acute Qualifiers: Heart failure type: systolic (2) Hypotension Onset Date: 04/11/18 Current Visit: Yes Status: Acute Qualifiers: Hypotension type: hypotension due to drug Qualified Code(s): I95.2 - Hypotension due to drugs (3) Syncope Onset Date: 04/11/18 Current Visit: Yes Status: Acute Qualifiers: Syncope type: vasovagal syncope Qualified Code(s): R55 - Syncope and collapse (4) Chronic kidney disease, stage 3 Onset Date: 04/11/18 Current Visit: Yes Status: Acute (5) Diabetes mellitus Onset Date: 02/28/15 Current Visit: No Status: Chronic Qualifiers: Diabetes mellitus type: type 2 Diabetes mellitus chcf insulin use: without chcf use Diabetes mellitus complication status: without complication Qualified Code(s): E11.9 - Type 2 diabetes mellitus without complications (6) Hyperlipidemia Onset Date: 02/28/15 Current Visit: No Status: Chronic Qualifiers: Hyperlipidemia type: mixed hyperlipidemia Qualified Code(s): E78.2 - Mixed hyperlipidemia (7) Hypertension Onset Date: 02/28/15 Current Visit: No Status: Chronic Qualifiers: Hypertension type: essential hypertension Qualified Code(s): I10 - Essential (primary) hypertension - Plan Plan: 1. AWAITING ARRANGEMENTS FOR PLACEMENT [facility]. CLINICALLY PATIENT APPEARS TO BE DOING MUCH BETTER. PATIENT SHOULD BE STABLE FOR DISCHARGE IN THE NEXT 48 HR ONCE INSURANCE APPROVAL IS GIVEN. CONTINUE WITH CURRENT PLAN OF CARE AT THIS TIME. - Advance Directives Does patient have a Living Will: No Does patient have a Durable POA for Healthcare: No - Code Status/Comfort Care Code Status: Full Code
--- NOTE | 2018-04-16 11:30 | PN ---
Date of Progress Note: 04/16/2018 Subjective: The patient doing well. No nausea. No vomiting. The patient waiting for insurance [facility] for outpatient treatment. Physical Examination: Vital Signs: Blood pressure 120/60, pulse of 90, afebrile. The patient had good urine output. Chest: Clear to auscultation. Heart: S1, S2. Regular. Abdomen: Soft, nontender. Extremities: No edema. Laboratory Data: H and H 8.2/25.5. Sodium 131, potassium 4.6, bicarb 26, BUN 29, creatinine 1.7, ca lcium 8.3. Medications: Current medications the patient on its include: 1.Meropenem b.i.d. 2.Aspirin. 3.Plavix. 4.Atorvastatin. 5.Zofran. 6.Levothyroxine. 7.Insulin. 8.Cholecalciferol. Assessment And Plan: 1.Acute kidney injury secondary to prerenal, recovered, resolved. 2.Hypertension, controlled, optimal. Continue current medications. 3.Urinary tract infection, ESBL. Continue meropenem. We will adjust the dose depending on chemistr y of today. 4.Diabetes, as by primary. 5.Proteinuria, nonnephrotic secondary to diabetes. YUKI/LÓPEZ Voice ID: [id number] Report ID: [id number]
[2018-04-16 12:22] LABS: Potassium 5.8 mEq/L (3.6-5.0)
[2018-04-16] MEDS ORDERED: D50W 25 GM/50 ML SYRINGE IV PRN (13:13)
[2018-04-16] MEDS ORDERED: ALBUTEROL 2.5 MG/3 ML NEB SOL NEB ONE (13:13)
[2018-04-16] MEDS ORDERED: D50W 25 GM/50 ML SYRINGE IV ONE ×2 (13:13→14:00)
[2018-04-16] MEDS ORDERED: NA CHLORIDE 0.9% 500 ML IV ONE (13:15)
[2018-04-16] MEDS ORDERED: INSULIN -REGULAR HUMAN 50 UNIT/0.5 ML ML IV ONE (13:15)
[2018-04-16] MEDS ORDERED: ALBUTEROL 2.5 MG/3 ML NEB SOL ONE (13:33)
[2018-04-16] MEDS ORDERED: FUROSEMIDE 40 MG/4 ML VIAL IV ONE (14:00)
[2018-04-16 19:53] LABS: HBsAG Nonreactive (Nonreactive); Hepatitis A IgM Antibody Nonreactive
[2018-04-16 20:12] LABS: Albumin 3.3 g/dL (3.2-5.5); Bilirubin Total 0.3 mg/dL (0.3-1.2); Potassium 4.8 mEq/L (3.6-5.0)
[2018-04-16] MEDS: ATORVASTATIN 40 MG TAB PO SCH (21:23)
[2018-04-17] MEDS: LEVOTHYROXINE SOD 0.05 MG TABLET PO SCH (05:22)
[2018-04-17 05:41] LABS: Albumin 2.9 g/dL (3.2-5.5); Phosphorus 3.4 mg/dL (2.5-4.3); Potassium 4.8 mEq/L (3.6-5.0)
[2018-04-17] MEDS: NPH (HUMAN) 100 UNITS/ML INSULIN SQ SCH ×2 (08:00→17:00)
[2018-04-17] MEDS: Meropenem 1,000 MG in NA CHLORIDE 0.9% 100 ML IV SCH ×2 (09:36→21:09)
[2018-04-17] MEDS: ASPIRIN 81 MG CHEWABLE TABLET PO SCH (09:37)
[2018-04-17] MEDS: VITAMIN D 5,000 UNIT CAP PO SCH (09:37)
[2018-04-17] MEDS: HEPARIN 5000 UNIT/ML 1 ML VIAL SQ SCH ×2 (09:37→21:11)
[2018-04-17] MEDS: CLOPIDOGREL 75 MG TABLET PO SCH (09:37)
--- NOTE | 2018-04-17 09:38 | PN ---
Date of Progress Note: 04/15/2018 Subjective: The patient doing well, more awake today. Physical Examination: Vital Signs: When I saw the patient, blood pressure 145/69, pulse of 97, afebrile. : The patient had good urine output. Chest: Clear to auscultation. Heart: S1, S2. Regular. Abdomen: Soft, nontender. Extremities: No edema. Laboratory Data: WBC 6, H and H 8.2/25.5, platelets 378. Sodium 131, potassium 4.9, bicarb 26, BUN 29, creatinine 1.7. Calcium 8.3. Assessment And Plan: 1.Acute kidney injury secondary to prerenal, recovered, resolved back to baseline. 2.Hypertension, controlled, optimal. Continue current medication. 3.Hyponatremia secondary to depletional, on the recovery. 4.Diabetes, as by primary. 5.Urinary tract infection secondary to ESBL. Continue current antibiotic. Waiting for outpatient s etup for antibiotic. VICKIE Voice ID: [id number] Report ID: [id number]
[2018-04-17 11:32] LABS: Absolute Lymphocytes (CBC) 1.3 K/uL (0.7-4.9); Absolute Monocytes 0.6 K/uL (0.1-1.3); Absolute Neutrophil 3.8 K/uL (1.8-8.0); Basophils % 0.9 % (0-1.3); Eosinophils % 4.1 % (0-4.4); Hematocrit 25.4 % (39.6-49.0); Lymphocytes % 21.8 % (15.3-44.8); MCH 26.2 pg (27.0-35.0); MCV 82.1 fL (80-100); MPV 8.6 fL (7.6-11.3); Monocytes % 10.2 % (3.3-12.3); RBC Red Blood Cell Count 3.09 M/uL (4.33-5.43)
[2018-04-17 13:36] LABS: Magnesium 1.6 mg/dL (1.8-2.5); Phosphorus 3.1 mg/dL (2.5-4.3)
[2018-04-17 13:39] LABS: Potassium 6.3 mEq/L (3.6-5.0)
[2018-04-17] MEDS ORDERED: SOD POLYSTYREN SUL 15 GM/60 ML UCUP PO ONE (14:00)
[2018-04-17 19:44] LABS: P-ANCA Anti-Myeloperoxidase Ab <1.0 AI (<1.0)
[2018-04-17] MEDS: ATORVASTATIN 40 MG TAB PO SCH (21:09)
--- NOTE | 2018-04-18 01:54 | PN ---
Date of Progress Note: 04/17/2018 Subjective: Acute on chronic kidney injury, urinary tract infection, diabetes mellitus with renal manifestation. Review of Systems: The patient denies complaints today. Denies fever chills. Physical Examination: Lungs: Clear to auscultation bilaterally. Heart: S1, S2. Abdomen: Soft, benign. Extremities: No edema. Vital Signs: Blood pressure 122/61, heart rate 90. Impression And Plan: 1. Acute kidney injury in recovery phase. Prerenal azotemia resolved. Renal function is back to baseline. Electrolytes are stable. 2. Urinary tract infection, continue meropenem. 3. Diabetes mellitus. Continue insulin. 4. Proteinuria, nonnephrotic range due to diabetes, currently NED inhibitor on hold because of acute kidney injury. TERRENCE/LÓPEZ Voice ID: [id number] Report ID: [id number] MTDD
[2018-04-18 05:31] LABS: Albumin 3.1 g/dL (3.2-5.5); Potassium 4.6 mEq/L (3.6-5.0)
[2018-04-18] MEDS: LEVOTHYROXINE SOD 0.05 MG TABLET PO SCH (06:43)
--- NOTE | 2018-04-18 07:18 | P.PN ---
Subjective Date of Service: 04/17/18 no new changes. Arrangements still being made for transfer to [facility]. Review of Systems 10-point ROS is otherwise unremarkable Physical Examination - Vital Signs Temperature: 97.1 F Blood Pressure: 125/72 Pulse: 99 Respirations: 18 Pulse Ox (%): 96 - Physical Exam General: Alert, In no apparent distress, Oriented x3 Respiratory: Clear to auscultation bilaterally, Normal air movement Cardiovascular: Regular rate/rhythm, Normal S1 S2, No murmurs Gastrointestinal: Normal bowel sounds, Soft and benign, Non-distended, No tenderness Musculoskeletal: No clubbing, No swelling, No tenderness Integumentary: No rashes Neurological: Normal speech, Normal tone, Normal affect Lymphatics: No axilla or inguinal lymphadenopathy - Studies Medications List Reviewed: Yes Assessment & Plan - Problems (Diagnosis) (1) Congestive heart failure Onset Date: 04/11/18 Current Visit: Yes Status: Acute Qualifiers: Heart failure type: systolic (2) Hypotension Onset Date: 04/11/18 Current Visit: Yes Status: Acute Qualifiers: Hypotension type: hypotension due to drug Qualified Code(s): I95.2 - Hypotension due to drugs (3) Syncope Onset Date: 04/11/18 Current Visit: Yes Status: Acute Qualifiers: Syncope type: vasovagal syncope Qualified Code(s): R55 - Syncope and collapse (4) Chronic kidney disease, stage 3 Onset Date: 04/11/18 Current Visit: Yes Status: Acute (5) Diabetes mellitus Onset Date: 02/28/15 Current Visit: No Status: Chronic Qualifiers: Diabetes mellitus type: type 2 Diabetes mellitus alf insulin use: without remote computer terminal operator use Diabetes mellitus complication status: without complication Qualified Code(s): E11.9 - Type 2 diabetes mellitus without complications (6) Hyperlipidemia Onset Date: 02/28/15 Current Visit: No Status: Chronic Qualifiers: Hyperlipidemia type: mixed hyperlipidemia Qualified Code(s): E78.2 - Mixed hyperlipidemia (7) Hypertension Onset Date: 02/28/15 Current Visit: No Status: Chronic Qualifiers: Hypertension type: essential hypertension Qualified Code(s): I10 - Essential (primary) hypertension - Plan Plan: 1. Awaiting arrangements to be completed for transfer to group home facility. No new changes in plan of care. Continue antibiotics and dialysis per Nephrology. Anticipate discharge to group home facility in the next 24 -48 hours. Will encourage him to start moving around more during hospital stay as he has done well with PT - Advance Directives Does patient have a Living Will: No Does patient have a Durable POA for Healthcare: No - Code Status/Comfort Care Code Status: Full Code
[2018-04-18] MEDS: HEPARIN 5000 UNIT/ML 1 ML VIAL SQ SCH ×2 (09:40→23:09)
[2018-04-18] MEDS: Meropenem 1,000 MG in NA CHLORIDE 0.9% 100 ML IV SCH ×2 (09:40→23:09)
[2018-04-18] MEDS: VITAMIN D 5,000 UNIT CAP PO SCH (09:40)
[2018-04-18] MEDS: CLOPIDOGREL 75 MG TABLET PO SCH (09:41)
[2018-04-18] MEDS: ASPIRIN 81 MG CHEWABLE TABLET PO SCH (09:41)
[2018-04-18] MEDS: NPH (HUMAN) 100 UNITS/ML INSULIN SQ SCH ×2 (09:53→18:56)
--- NOTE | 2018-04-18 12:32 | RAD REPORT ---
EXAM DESCRIPTION: US - Renal Ultrasound-Complete - 04/18/2018 11:58 am CLINICAL HISTORY: Acute kidney insufficiency. COMPARISON: 04/13/2018 FINDINGS: Both kidneys are normal in size, shape and echotexture. The right kidney measures 11.6 x 5.5 x 5.1 cm. No hydronephrosis, focal mass or perinephric fluid. The left kidney measures 11.1 x 5.9 x 5.1 cm. No hydronephrosis, focal mass or perinephric fluid. IMPRESSION: Unremarkable renal sonogram.
--- NOTE | 2018-04-18 16:57 | PN ---
Date of Progress Note: 04/18/2018 Subjective: The patient seen and examined, chart reviewed, and case discussed with RN. No acute linda nts overnight. The patient denies any complaints. Review of Systems: Negative except as above. Medications: List reviewed. Objective: Vital Signs: Temperature 97.9, heart rate 84, blood pressure 115/64, respirations 18, an d O2 100% on room air. General: Awake, alert, oriented, no acute distress. Elderly male, obese, BMI 30. CV: S1, S2. No murmurs. Regular rate and rhythm. Peripheral pulses present. Respiratory: Clear to auscultation bilaterally. No wheezing. No stridor. No use of accessory musc les Gastrointestinal: Abdomen is soft, nontender, nondistended. Positive bowel sounds. Extremities: No clubbing, cyanosis, or edema. Neurologic: Nonfocal. Laboratory Data: Sodium 139, potassium 4.6, chloride 106, CO2 27, BUN 26, creatinine 1.32, glucose 1 19, and calcium 8.4. Urine culture shows E. coli, which is ESBL producing. Blood cultures no growth to date. Renal ultrasound, unremarkable renal sonogram. Assessment And Plan: A 62-year-old male with; 1.Systolic congestive heart failure, improved. 2.Hypotension due to drug side-effect, improved. 3.Syncopal episode, likely vasovagal, resolved. No further episodes. 4.Chronic kidney disease stage 3. Creatinine stable. 5.Diabetes mellitus type 2, without long-term use of insulin with hyperglycemia. 6.Hyperlipidemia, mixed. 7.Essential hypertension. Plan: Continue sliding scale insulin. Monitor Accu-Cheks. Monitor creatinine level and blood press ure. Monitor I's and O's strictly, daily weights. The patient still has not been excepted to SNF. The patient has 1 more day of IV antibiotics. We will likely discharge after last dose tomorrow. Th e patient has been ambulating well without assist. GI and DVT prophylaxis with heparin. SA/MODL Voice ID: [id number] Report ID: [id number]
[2018-04-18 17:40] LABS: Urine Appearance CLOUDY; Urine Bilirubin NEGATIVE (NEG); Urine Blood NEGATIVE (NEG); Urine Color YELLOW; Urine Glucose TRACE (NEG); Urine Protein 2+ (NEG); Urine Specific Gravity 1.025 (1.005-1.030); Urine Urobilinogen 0.2 mg/dL (0.2-1.0); Urine pH 5.5 (5.0-7.0)
[2018-04-18 18:04] LABS: UR CREAT 235.7 mg/dL (20-370); Urine Protein/Creatinine Ratio 0.72 ratio (<0.15)
[2018-04-18 18:10] LABS: Urine Microscopic Reflex ORDER UMIC
[2018-04-18 18:17] LABS: Urine Bacteria <20 /HPF (NONE SEEN); Urine RBC <5 /HPF (NONE SEEN)
[2018-04-18 18:18] LABS: Urine Yeast FEW (NONE SEEN); Urine Yeast with Hyphae PRESENT
[2018-04-18 18:19] LABS: Urine Waxy Casts 0-5 /LPF (NONE SEEN)
[2018-04-18 18:21] LABS: Urine Culture Reflex Order REFLEXED
[2018-04-18] MEDS: ATORVASTATIN 40 MG TAB PO SCH (23:09)
--- NOTE | 2018-04-19 02:06 | PN ---
Date of Progress Note: 04/18/2018 Subjective: The patient feeling better. No nausea. No vomiting. Physical Examination: Vital Signs: Blood pressure of 119/58, pulse of 94. Chest: Clear to auscultation. Heart: S1, S2. Regular. Abdomen: Soft, nontender. Extremities: No edema. Laboratory Data: H and H 8.8/25.4. Sodium 139, potassium 4.6, bicarb 27. BUN 27, creatinine 1.3. GFR of 55, calcium 8.4, phosphorus 4. Current Medications: The patient on include; 1.Meropenem. 2.Aspirin. 3.Plavix. 4.Atorvastatin. 5.Tylenol. 6.Zofran. 7.Insulin. Assessment And Plan: 1.Acute kidney injury secondary to prerenal, recovered, resolved, back to baseline. 2.Hypertension, controlled, optimal. Continue current medication. 3.Urinary tract infection secondary to extended-spectrum beta-lactamases. Continue current antibiot ic. 4.Diabetes as by primary. 5.Nephrotic range of proteinuria secondary to diabetes. Workup negative. Continue current medication. We will avoid using NED inhibitor for the time being. We wi ll challenge as outpatient. VICKIE Voice ID: [id number] Report ID: [id number]
[2018-04-19 05:46] LABS: Albumin 3.1 g/dL (3.2-5.5); Phosphorus 3.1 mg/dL (2.5-4.3); Potassium 4.2 mEq/L (3.6-5.0)
[2018-04-19] MEDS: LEVOTHYROXINE SOD 0.05 MG TABLET PO SCH (05:58)
[2018-04-19 06:06] LABS: Absolute Lymphocytes (CBC) 1.3 K/uL (0.7-4.9); Absolute Monocytes 0.7 K/uL (0.1-1.3); Absolute Neutrophil 3.5 K/uL (1.8-8.0); Basophils % 0.6 % (0-1.3); Hematocrit 23.4 % (39.6-49.0); Lymphocytes % 21.8 % (15.3-44.8); MCH 26.8 pg (27.0-35.0); MCV 81.7 fL (80-100); MPV 8.4 fL (7.6-11.3); Monocytes % 11.5 % (3.3-12.3); RBC Red Blood Cell Count 2.87 M/uL (4.33-5.43)
[2018-04-19] MEDS: NPH (HUMAN) 100 UNITS/ML INSULIN SQ SCH ×2 (08:00→17:11)
[2018-04-19] MEDS: ASPIRIN 81 MG CHEWABLE TABLET PO SCH (09:00)
[2018-04-19] MEDS: CLOPIDOGREL 75 MG TABLET PO SCH (09:00)
[2018-04-19] MEDS: HEPARIN 5000 UNIT/ML 1 ML VIAL SQ SCH ×2 (09:00→22:35)
[2018-04-19] MEDS: Meropenem 1,000 MG in NA CHLORIDE 0.9% 100 ML IV SCH ×2 (09:00→15:16)
[2018-04-19] MEDS: VITAMIN D 5,000 UNIT CAP PO SCH (09:00)
--- NOTE | 2018-04-19 11:57 | PN ---
Date of Progress Note: 04/19/2018 Subjective: The patient doing well. No nausea. No vomiting. No shortness of breath. Physical Examination: Vital Signs: Blood pressure 112/60, pulse of 100, afebrile. Chest: Clear to auscultation. Heart: S1, S2. Regular. Abdomen: Soft, nontender. Extremities: No edema. Laboratory Data: H and H 7.7/23.4. Sodium 139, potassium 4.2, bicarb 26, BUN 27, creatinine 1.3, ca lcium 8.3. Medications: Current medications the patient on its include: 1.Aspirin. 2.Meropenem. 3.Plavix. 4.Atorvastatin. 5.Tylenol. 6.Levothyroxine. Assessment And Plan: 1.Acute kidney injury secondary to prerenal, recovered, resolved. 2.Urinary tract infection ESBL. Continue meropenem, today last day. 3.Iron deficiency anemia. We will start the patient on IV iron. 4.Hypertension, controlled. Continue current medications. The patient cleared from the Renal stand point to follow up in the office in 2-3 weeks. VICKIE Voice ID: [id number] Report ID: [id number]
[2018-04-19 12:49] LABS: Hematocrit 22.7 % (39.6-49.0)
[2018-04-19] MEDS ORDERED: FUROSEMIDE 20 MG/ 2ML VIAL IV SCH (14:00)
[2018-04-19] MEDS ORDERED: NA CHLORIDE 0.9% 50 ML ONE (16:59)
[2018-04-19 22:27] LABS: Hematocrit 25.8 % (39.6-49.0)
[2018-04-19] MEDS: ATORVASTATIN 40 MG TAB PO SCH (22:35)
[2018-04-20 02:13] VITALS: O2SAT 95
--- NOTE | 2018-04-20 02:41 | DS ---
Date of Discharge: 04/19/2018 Consultants: Dr. Raymundo with Neurology, Dr. Banerjee, Cardiology. Procedures: None. Admitting Diagnoses: 1.Syncope. 2.Hypertension. 3.Congestive heart failure. 4.Chronic kidney disease, stage 3. 5.Diabetes. 6.Hyperlipidemia. 7.Hypertension. Discharge Diagnoses: 1.Syncopal episode, likely vasovagal, resolved. No further episodes. 2.Hypotension due to drug side effect, resolved. 3.Systolic congestive heart failure, EF 30% to 35%, acute, diuresed well. 4.Chronic kidney disease, stage 3. Creatinine is stable. 5.Diabetes mellitus type 2 without long-term use of insulin with hyperglycemia. 6.Hyperlipidemia. 7.Essential hypertension. 8.Obesity, BMI 32. Hospital Course: The patient is a 62-year-old male, who came to the hospital with lightheadedness. The patient was thought to have hypotension due to his medications including Entresto, which was held . Cardiology and Nephrology evaluation was obtained. The patient was found to have E. coli ESBL gre w out in his urine culture and was started on IV meropenem. His blood cultures were negative. The p atient was [facility] for [facility] facility for [facility]-term IV antibiotics for 7-10 days; however, the patient was still pending acceptance upon completion of his treatment, therefore we will complet e treatment and be discharged home. The patient otherwise did well over the course of the hospital s yovani. His kidney function improved. His white count remained stable. The patient did have some drop in his hemoglobin. He does have history of iron deficiency and chronic anemia due to chronic kidney disease. The patient was started on IV iron. The patient's hep panel was nonreactive. The patient will be discharged home in stable condition. Activity: As tolerated. Medications: As per medication reconciliation list. Diet: Renal. Followup: Follow up with primary care physician in 2-3 days. Follow up with mix mill tender as schedul ed in 1-2 weeks. Return to ER for worsening condition. The patient will need to have repeat urine c ultures once antibiotics are completed by primary care physician. Total time spent discharging the patient was 36 minutes. Physical Examination: General: Awake, alert, oriented, in no acute distress. CV: S1 and S2. No murmurs. Respiratory: Clear to auscultation bilaterally. No wheezing. Abdomen: Soft, nontender, nondistended. Positive bowel sounds. Extremities: No clubbing, cyanosis, edema. Neurologic: Nonfocal. SA/MODL Voice ID: [id number] Report ID: [id number]
[2018-04-20] MEDS: LEVOTHYROXINE SOD 0.05 MG TABLET PO SCH (05:36)
[2018-04-20 05:40] LABS: Albumin 3.1 g/dL (3.2-5.5); Phosphorus 3.1 mg/dL (2.5-4.3)
[2018-04-20] MEDS ORDERED: SOD FERRIC GLUC COMPLX/SUCROSE 250 MG in NA CHLORIDE 0.9% 250 ML IV ONE (09:33)
[2018-04-20 09:46] VITALS: BP 131/64; TEMP 98.2
--- NOTE | 2018-04-20 16:47 | PN ---
Date of Progress Note: 04/20/2018 Subjective: The patient is seen and examined, chart reviewed, and case discussed with RN. The patie nt was unable to be discharged yesterday due to blood transfusion, repeat hemoglobin check, and dialy sis, which was not complete on 9:00 p.m. last night. The patient did well overnight. Review of Systems: Negative except as above. Medications: Reviewed. Physical Examination: Vital Signs: Temperature 98.2, heart rate 90, blood pressure 131/64, respirations 16, and O2 99% on room air. General: Awake, alert, oriented, no acute distress CV: S1, S2. No murmurs. Respiratory: Moving air well bilaterally. Abdomen: Soft, nontender, nondistended. Positive bowel sounds. Extremities: No clubbing, cyanosis, or edema. Neurologic: Nonfocal. Laboratory Data: Sodium 138, potassium 4, chloride 105, CO2 26, BUN 1.29, glucose 126, calcium 8.3, and phosphorus 3.1. H and H 8.5 and 25.8. Assessment: 1.Syncopal episode, likely vasovagal, resolved. 2.Hypotension due to drug side effects, resolved. Blood pressure is stable. 3.Systolic congestive heart failure, acute, ejection fraction 30-35%. 4.Chronic kidney disease stage 3. 5.Diabetes mellitus type 2, without long-term use of insulin with hyperglycemia. 6.Hyperlipidemia. 7.Essential hypertension. 8.Obesity, body mass index 32. 9.Extended-spectrum beta-lactamase escherichia coli urinary tract infection, treated with meropenem. 10.Anemia, normocytic, hypochromic, likely anemia of chronic kidney disease, status post transfusion of PRBCs. H and H stable. Plan: Discharge home. The patient will continue treatment with IV meropenem. /LÓPEZ Voice ID: [id number] Report ID: [id number]
== END 2018-04-20 09:22 | disposition home or self-care (01) | DRG 312 ==
LOC: ER 15:19 → ERHOLD 19:34 → 3RD-ICU 21:07 → 2ND 04-11 10:40
PROVIDERS: ADMIT Hospitalist; ATTEND Family Medicine
PROC: 0T9B70Z Drainage of Bladder with Drainage Device, Via Natural or Artificial Opening (ICD-10-PCS; 2018-04-10)
PROC: 02HV33Z Insertion of Infusion Device into Superior Vena Cava, Percutaneous Approach (ICD-10-PCS; principal; 2018-04-14)
DX: I95.2 Hypotension due to drugs (principal); I50.23 Acute on chronic systolic (congestive) heart failure; I13.0 Hypertensive heart and chronic kidney disease with heart failure and stage 1 through stage 4 chronic kidney disease, or unspecified chronic kidney disease; N39.0 Urinary tract infection, site not specified; N17.9 Acute kidney failure, unspecified; R55 Syncope and collapse; B96.20 Unspecified Escherichia coli [E. coli] as the cause of diseases classified elsewhere; E78.5 Hyperlipidemia, unspecified; E11.22 Type 2 diabetes mellitus with diabetic chronic kidney disease; N18.3 Chronic kidney disease, stage 3 (moderate); I50.9 Heart failure, unspecified; I25.10 Atherosclerotic heart disease of native coronary artery without angina pectoris; D50.9 Iron deficiency anemia, unspecified; E66.9 Obesity, unspecified; T46.5X5A Adverse effect of other antihypertensive drugs, initial encounter; I25.2 Old myocardial infarction; Z68.32 Body mass index [BMI] 32.0-32.9, adult
CPT/HCPCS: 36415; 71045; 76770; 76857; 80048; 80053; 80069; 80074; 80076; 81001; 81003; 81015; 82140; 82274; 82533; 82550; 82553; 82570; 82607; 82728; 82746; 82962; 83036; 83540; 83605; 83690; 83735; 83880; 83930; 83935; 83970; 84100; 84132; 84156; 84300; 84439; 84443; 84466; 84484; 84550; 85014; 85018; 85025; 85044; 85610; 85730; 86021; 86850; 86900; 86901; 87040; 87077; 87086; 87088; 87186; 93005; 93306; 94640; 96361; 96374; 97163; 99285; J0692; J0696; J1644; J2916; J7030; P9016

== ENCOUNTER 2019-02-10 12:25 | Observation (INO) | payer OTHER ==
--- OUTSIDE RECORDS SUMMARY | 2019-02-10 12:27 | XMS REPORT ---
:1955 Author Organization [employer] Care Team Providers Name Role Phone Andrew Corleyh Provider Role Unavailable Allergies, Adverse Reactions, Alerts Substance Reaction Event Type N.K.D.A. 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 Z79.4 Active Assessment History of fall Z91.81 Active Problem Orthostatic hypotension I95.1 Active Problem Type 2 diabetes mellitus with other E11.29 Active diabetic kidney complication Problem Type 2 diabetes mellitus with E11.65 Active hyperglycemia Problem Mixed hyperlipidemia E78.2 Active Problem History of fall Z91.81 Active Assessment Mixed hyperlipidemia E78.2 Active Assessment CKD (chronic kidney disease), stage N18.3 Active III Assessment Stented coronary artery Z95.5 Active Assessment shelter current use of insulin Z79.4 Active Assessment Systolic congestive heart failure, I50.20 Active unspecified HF chronicity Assessment Anemia, unspecified type D64.9 Active Assessment Coronary artery disease involving I25.10 Active [place] coronary artery of [place] heart, angina presence unspecified Assessment Orthostatic hypotension I95.1 Active Assessment Type 2 diabetes mellitus with other E11.29 Active diabetic kidney complication Problem Systolic congestive heart failure, I50.20 Active unspecified HF chronicity Medications Medication Code Code Instructions Start End Status Dosage System Date Date Aspirin 81 [facility] 53545808482 81 MG Orally Active 1 tablet Once a day Atorvastatin [facility] 86572948770 40 MG Orally Active 1 tablet Calcium Once a day Ranexa [facility] 54338894111 1000 MG Orally Active 1 tablet Twice a day Humulin N [facility] 22410100902 100 UNIT/ML Active not Subcutaneous defined Clopidogrel [facility] 84708838125 75 MG Orally Active 1 tablet Bisulfate Once a day Entresto [facility] 52790230157 24-26 MG Orally Active 1 tablet Twice a day Results No Known Results Summary Purpose [employer] Submission
--- OUTSIDE RECORDS SUMMARY | 2019-02-10 12:28 | XMS REPORT ---
:1955 Author Organization [employer] Care Team Providers Name Role Phone Jack Corley Provider Role Unavailable Allergies No Known Allergies Problems Problem Type Condition Code Onset Dates Condition Status Problem CKD (chronic kidney disease), stage N18.3 Active III Problem Coronary artery disease involving I25.10 Active [place] coronary artery of [place] heart, angina presence unspecified Problem Anemia, unspecified type D64.9 Active Problem Systolic congestive heart failure, I50.20 Active unspecified HF chronicity Problem Stented coronary artery Z95.5 Active Problem correction current use of 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
--- OUTSIDE RECORDS SUMMARY | 2019-02-10 12:28 | XMS REPORT ---
:1955 Author Organization [employer] Care Team Providers Name Role Phone Jack Corley Provider Role Unavailable Allergies, Adverse Reactions, Alerts Substance Reaction Event Type N.K.D.A. Info Not Available Non Drug Allergy Problems Problem Type Condition Code Onset Dates Condition Status Problem Type 2 diabetes mellitus with E11.65 Active hyperglycemia Problem History of fall Z91.81 Active Problem Type 2 diabetes mellitus with other E11.29 Active diabetic kidney complication Problem CKD (chronic kidney disease), stage N18.3 Active III Assessment Coronary artery disease involving I25.10 Active [place] coronary artery of [place] heart, angina presence unspecified Problem Systolic congestive heart failure, I50.20 Active unspecified HF chronicity Assessment Stented coronary artery Z95.5 Active Assessment Type 2 diabetes mellitus with E11.65 Active hyperglycemia Problem Hypothyroidism, unspecified type E03.9 Active Problem 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 Z79.4 Active Problem Mixed hyperlipidemia E78.2 Active Problem Orthostatic hypotension I95.1 Active Problem Stented coronary artery Z95.5 Active Assessment Mixed hyperlipidemia E78.2 Active Assessment Hypothyroidism, unspecified type E03.9 Active Assessment 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 Z79.4 Active Assessment Anemia, unspecified type D64.9 Active Assessment Type 2 diabetes mellitus with other E11.29 Active diabetic kidney complication Assessment Non compliance w medication regimen Z91.14 Active Assessment Proteinuria, unspecified type R80.9 Active Assessment CKD (chronic kidney disease), stage N18.3 Active III Problem Anemia, unspecified type D64.9 Active Assessment History of fall Z91.81 Active Assessment Systolic congestive heart failure, I50.20 Active unspecified HF chronicity Problem Coronary artery disease involving I25.10 Active [place] coronary artery of [place] heart, angina presence unspecified Medications Medication Code Code Instructions Start End Status Dosage System Date Date Aspirin 81 [facility] 59771278023 81 MG Orally Active 1 tablet Once a day Clopidogrel [facility] 43074189988 75 MG Orally Active 1 tablet Bisulfate Once a day Basaglar ValerieikPen [facility] 04266360816 100 UNIT/ML Active inject 20 Subcutaneous units once day Ranexa [facility] 01811037080 1000 MG Active TAKE 1 TABLET BY MOUTH TWICE A DAY Atorvastatin [facility] 86817657574 40 MG Orally Active 1 tablet Calcium Once a day Synthroid [facility] 59087505941 88 MCG Orally Active 1 tablet Once a day on an empty stomach in the morning Ranexa [facility] 60318927236 1000 MG Orally Active 1 tablet Twice a day Tradjenta [facility] 95014248171 5 MG Orally Active 1 tablet Once a day Results No Known Results Summary Purpose [employer]Works Submission
--- OUTSIDE RECORDS SUMMARY | 2019-02-10 12:28 | XMS REPORT ---
:1955 Author Organization [employer]Works Care Team Providers Name Role Phone Jack Corley Provider Role Unavailable Allergies No Known Allergies Problems Problem Type Condition Code Onset Dates Condition Status Problem Type 2 diabetes mellitus with E11.65 Active hyperglycemia Problem History of fall Z91.81 Active Problem Type 2 diabetes mellitus with other E11.29 Active diabetic kidney complication Problem Anemia, unspecified type D64.9 Active Problem Coronary artery disease involving I25.10 Active [place] coronary artery of [place] heart, angina presence unspecified Problem CKD (chronic kidney disease), stage N18.3 Active III Problem Systolic congestive heart failure, I50.20 Active unspecified HF chronicity Problem Hypothyroidism, unspecified type E03.9 Active 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
--- OUTSIDE RECORDS SUMMARY | 2019-02-10 12:28 | XMS REPORT ---
[...] Problem Coronary artery disease involving I25.10 Active [place] coronary artery of [place] heart, angina presence unspecified Problem CKD (chronic kidney disease), stage N18.3 Active III Problem Systolic congestive heart failure, I50.20 Active unspecified HF chronicity Problem Hypothyroidism, unspecified type E03.9 Active Problem [place] current use of insulin Z79.4 Active Problem Mixed hyperlipidemia E78.2 Active Problem Orthostatic hypotension I95.1 Active Problem Stented coronary artery Z95.5 Active Medications No Known Medications Results No Known Results Summary Purpose [employer] Submission
--- OUTSIDE RECORDS SUMMARY | 2019-02-10 12:28 | XMS REPORT ---
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 Active Problem Mixed hyperlipidemia E78.2 Active Problem Orthostatic hypotension I95.1 Active Problem Stented coronary artery Z95.5 Active Assessment Mixed hyperlipidemia E78.2 Active Assessment Hypothyroidism, unspecified type E03.9 Active 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 Active Assessment [...] Problem Coronary artery disease involving I25.10 Active [place] coronary artery of [place] heart, angina presence unspecified Medications Medication Code Code Instructions Start End Status Dosage System Date Date Tradjenta [facility] 73457089208 5 MG Orally Active 1 tablet Once a day Synthroid [facility] 24104272679 88 MCG Orally Active 1 tablet Once a day on an empty stomach in the morning Ranexa [facility] 98996859493 1000 MG Active TAKE 1 TABLET BY MOUTH TWICE A DAY Basaglrocco Jules [facility] 68655582557 100 UNIT/ML Active inject 20 Subcutaneous units once day Clopidogrel [facility] 90933641926 75 MG Orally Active 1 tablet Bisulfate Once a day Ranexa [facility] 55263147999 1000 MG Orally Active 1 tablet Twice a day Entresto 24/26mg [facility] 10729297762 24/26mg oral JanuaryMarch 25, Active one bid 2018 Atorvastatin [facility] 61265294985 40 MG Orally Active 1 tablet Calcium Once a day Aspirin 81 [facility] 28344789162 81 MG Orally Active 1 tablet Once a day Results Name Result Date Reference Range Unit Abnormality Flag HEMOGLOBIN A1C ----A1C 7.3 [id number] Summary Purpose [employer]ClinicalWorks Submission
--- OUTSIDE RECORDS SUMMARY | 2019-02-10 12:28 | XMS REPORT ---
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 Problem Mixed hyperlipidemia E78.2 Active Problem Orthostatic hypotension I95.1 Active Problem Stented coronary artery Z95.5 Active Assessment Coronary artery disease involving I25.10 Active [place] coronary artery of [place] heart, angina presence unspecified Problem Anemia, unspecified type D64.9 Active Problem Coronary artery disease involving I25.10 Active [place] coronary artery of [place] heart, angina presence unspecified Medications Medication Code System Code Instructions Start End Date Status Dosage Date Vitamin D-3 [facility] 42294549255 5000 UNIT Orally May 01, Jul 30, Active 1 tablet Once a day 2017 2017 Ranexa [facility] 47608604790 1000 MG Orally Active 1 tablet Twice a day Results No Known Results Summary Purpose [employer]ClinicalWorks Submission
--- OUTSIDE RECORDS SUMMARY | 2019-02-10 12:28 | XMS REPORT ---
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
--- OUTSIDE RECORDS SUMMARY | 2019-02-10 12:28 | XMS REPORT ---
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81 Active Assessment Type 2 diabetes mellitus with other E11.29 Active diabetic kidney complication Problem Coronary artery disease involving I25.10 Active [place] coronary artery of [place] heart, angina presence unspecified Medications Medication Code Code Instructions Start End Status Dosage System Date Date Humulin N [place] 59266477116 100 UNIT/ML Inactive not Subcutaneous defined Ranexa [facility] 2[facility] 99770808109 1000 MG Orally Active 1 tablet Twice a day Aspirin 81 ND 39800157195 81 MG Orally Active 1 tablet Once a day Basaglar ND 98148892331 100 UNIT/ML April 27, Active Inject 10 KwikPen Subcutaneous 2018 units once day Synthroid ND 06613123979 50 MCG Orally Active 1 tablet Once a day on an empty stomach in the morning Atorvastatin [facility]NOTE 2] 52596019603 40 MG Orally Active 1 tablet Calcium Once a day Entresto [facility]NOTE 2] 67095863277 24-26 MG Orally April Inactive 1 tablet Twice a day 2017 Clopidogrel [facility]NOTE 2] 67720075730 75 MG Orally Active 1 tablet Bisulfate Once a day Tradjenta [facility]NOTE 2] 98822256731 5 MG Orally April 27, Active 1 tablet Once a day 2017 Results No Known Results Summary Purpose [employer]ClinicalWorks Submission
--- NOTE | 2019-02-10 13:30 | RAD REPORT ---
EXAM DESCRIPTION: RAD - Chest Single View - 02/10/2019 1:18 pm CLINICAL HISTORY: Chest pain, shortness of breath COMPARISON: April 2018 TECHNIQUE: AP portable chest image was obtained 1311 hours . FINDINGS: No peripheral mass or consolidation. Cardiomegaly is present similar or slightly increased from comparison. Vascular engorgement is present. Interstitial markings are increased slightly in pr ominence from the comparison study. No measurable pleural effusion and no pneumothorax. No acute bony abnormality seen. No acute aortic findings suspected. IMPRESSION: Mild CHF/ volume overload pattern. No peripheral mass or consolidation.
[2019-02-10 13:31] LABS: Absolute Lymphocytes (CBC) 0.8 K/uL (0.7-4.9); Absolute Monocytes 0.7 K/uL (0.1-1.3); Absolute Neutrophil 4.3 K/uL (1.8-8.0); Basophils % 0.3 % (0-1.3); Eosinophils % 0.8 % (0-4.4); Hematocrit 35.8 % (39.6-49.0); Lymphocytes % 13.2 % (15.3-44.8); MPV 8.4 fL (7.6-11.3); Monocytes % 11.4 % (3.3-12.3); RBC Red Blood Cell Count 4.29 M/uL (4.33-5.43)
[2019-02-10 13:38] LABS: Protime INR 1.04
[2019-02-10 13:52] LABS: Albumin 3.6 g/dL (3.4-5.0); Bilirubin Direct 0.2 mg/dL (0-0.2); Bilirubin Total 0.7 mg/dL (0.2-1.0); Magnesium 2.3 mg/dL (1.8-2.4); Potassium 4.8 mmol/L (3.5-5.1); Protein, Total 7.6 g/dL (6.4-8.2); Troponin (Emerg Dept Use Only) 0.08 ng/mL (0.0-0.045)
--- NOTE | 2019-02-10 15:16 | ER ---
Nurse's Notes [facility] Name: Benji Villalpando Age: 63 yrs Sex: Male : 1955 Arrival Date: 02/10/2019 Time: 12:26 Bed 20 Private MD: Diagnosis: Acute on chronic combined systolic (congestive) and diastolic (congestive) heart failure;Acute Kidney Injury Presentation: 02/10 12:30 Presenting complaint: Patient states: For the last 2 weeks I have noticed increased la1 abdominal swelling and now it is putting pressure on my chest causing SOB. Transition of care: patient was not received from another setting of care. Onset of symptoms was February 10, 2019. Risk Assessment: Do you want to hurt yourself or someone else? Patient reports no desire to harm self or others. Initial Sepsis Screen: Does the patient meet any 2 criteria? No. Patient's initial sepsis screen is negative. Does the patient have a suspected source of infection? No. Patient's initial sepsis screen is negative. Care prior to arrival: None. 12:30 Method Of Arrival: Ambulatory la1 12:30 Acuity: MILADYS 3 la1 Historical: - Allergies: 12:30 No Known Allergies; la1 - PMHx: 12:30 Anemia; Diabetes - IDDM; Hypertension; kidney failure stage 3; Myocardial infarction; la1 - Immunization history:: Adult Immunizations up to date. - Social history:: Smoking status: Patient/guardian denies using tobacco. - Ebola Screening: : No symptoms or risks identified at this time. Screenin:00 Abuse screen: Denies threats or abuse. Denies injuries from another. Nutritional aj1 screening: No deficits noted. Tuberculosis screening: No symptoms or risk factors identified. 18:07 Fall Risk None identified. aj1 Assessment: 13:00 General: Appears in no apparent distress. uncomfortable, Behavior is calm, cooperative, aj1 appropriate for age. Pain: Complains of pain in abdomen Pain does not radiate. Pain currently is 5 out of 10 on a pain scale. Pain: Pain began a couple weeks ago. Neuro: Level of Consciousness is awake, alert, obeys commands, Oriented to person, place, time, situation. Cardiovascular: Reports shortness of breath, Heart tones S1 S2 present Patient's skin is warm and dry. Rhythm is regular. Respiratory: Reports shortness of breath Airway is patent Respiratory effort is even, unlabored, Respiratory pattern is regular, symmetrical, Breath sounds are clear bilaterally. GI: Abdomen is round non-distended, Bowel sounds present X 4 quads. Abd is soft and non tender X 4 quads. : No signs and/or symptoms were reported regarding the genitourinary system. EENT: No signs and/or symptoms were reported regarding the EENT system. Derm: No signs and/or symptoms reported regarding the dermatologic system. Skin is pink, warm \T\ dry. normal. 14:00 Reassessment: Patient appears in no apparent distress at this time. No changes from aj1 previously documented assessment. Patient and/or family updated on plan of care and expected duration. Pain level reassessed. Patient is alert, oriented x 3, equal unlabored respirations, skin warm/dry/pink. 15:09 Reassessment: Patient appears in no apparent distress at this time. No changes from aj1 previously documented assessment. Patient and/or family updated on plan of care and expected duration. Pain level reassessed. Patient is alert, oriented x 3, equal unlabored respirations, skin warm/dry/pink. 16:16 Reassessment: Patient appears in no apparent distress at this time. No changes from aj1 previously documented assessment. Patient and/or family updated on plan of care and expected duration. Pain level reassessed. Patient is alert, oriented x 3, equal unlabored respirations, skin warm/dry/pink. Patient given warm blanket for comfort, denies any needs or concerns at this time. Patient is awaiting room assignment to be admitted upstairs. 16:51 Reassessment: Dr. Belle at bedside. aj1 17:15 Reassessment: Patient appears in no apparent distress at this time. No changes from aj1 previously documented assessment. Patient and/or family updated on plan of care and expected duration. Pain level reassessed. Patient is alert, oriented x 3, equal unlabored respirations, skin warm/dry/pink. 18:05 Reassessment: Patient appears in no apparent distress at this time. No changes from aj1 previously documented assessment. Patient and/or family updated on plan of care and expected duration. Pain level reassessed. Patient is alert, oriented x 3, equal unlabored respirations, skin warm/dry/pink. Vital Signs: 12:31 BP 130 / 90; Pulse 77; Resp 18; Temp 98.6; Pulse Ox 98% on R/A; Weight 81.65 kg; Height la1 5 ft. 4 in. (162.56 cm); Pain 4/10; 15:10 BP 163 / 93; Pulse 82; Resp 18; Pulse Ox 96% on R/A; aj1 16:17 BP 157 / 91; Pulse 80; Resp 18; Pulse Ox 98% on R/A; aj1 17:15 BP 152 / 86; Pulse 81; Resp 18; Pulse Ox 98% on R/A; aj1 12:31 Body Mass Index 30.90 (81.65 kg, 162.56 cm) la1 ED Course: 12:26 Patient arrived in ED. as 12:31 Triage completed. la1 12:31 Arm band placed on right wrist. la1 12:46 Noris Hoyos RN is Primary Nurse. aj1 12:48 Jimmie Og PA is PHCP. [facility] 12:48 Geovanny Kimball MD is Attending Physician. [facility] 13:00 Patient has correct armband on for positive identification. secured entrance monitor on. Pulse aj1 ox on. NIBP on. 13:00 No provider procedures requiring assistance completed. Patient maintains SpO2 aj1 saturation greater than 95% on room air. 13:18 XRAY Chest (1 view) In Process Unspecified. EDWA 13:26 Initial lab(s) drawn, by me, sent to lab. kj1 13:27 Inserted saline lock: 20 gauge in right antecubital area, using aseptic technique. kj1 15:14 Juan F Belle MD is Hospitalizing Provider. [facility] 17:10 Initial lab(s) drawn, Repeat lab(s) drawn. by me, sent to lab. kj1 18:06 Patient admitted, IV remains in place. aj1 Administered Medications: No medications were administered Outcome: 15:15 Decision to Hospitalize by Provider. samara 18:06 Admitted to Med/surg accompanied by tech, via wheelchair, with chart. aj1 18:06 Condition: stable 18:06 Discharge instructions given to patient, Instructed on the need for admit, Demonstrated understanding of instructions. 18:07 Patient left the ED. aj1 Signatures: Dispatcher [employer] EDMS Noris Hoyos RN RN aj MickaJimmie barrett PA PA jmm Martinez, Amelia as Attema, Lee, RN RN la1 Ernestina Talamantes kj1 Corrections: (The following items were deleted from the chart) 18:06 17:04 Blood Glucose: Blood Glucose Mezboyn=609 mg/dL. aj1 aj1
--- NOTE | 2019-02-10 15:16 | EDPHYS ---
Physician Documentation [facility] Name: Benji Villalpando Age: 63 yrs Sex: Male : 1955 Arrival Date: 02/10/2019 Time: 12:26 Bed 20 Private MD: ED Physician Geovanny Kimball HPI: 02/10 13:08 This 63 yrs old Male presents to ER via Ambulatory with complaints of jmm Abdominal Swelling. 13:08 The patient presents with abdominal distention. Onset: The symptoms/episode jmm began/occurred gradually, 2 week(s) ago. Associated signs and symptoms: Pertinent positives: shortness of breath. This is a 63 year old male with a history of anemia, DM, HTN, that presents to the ED with complaints of progressively worsening abdominal swelling, chest pressure, and shortness of breath. Patient states he feels similar to a previous episode of kidney failure. . Historical: - Allergies: 12:30 No Known Allergies; la1 - PMHx: 12:30 Anemia; Diabetes - IDDM; Hypertension; kidney failure stage 3; Myocardial infarction; la1 - Immunization history:: Adult Immunizations up to date. - Social history:: Smoking status: Patient/guardian denies using tobacco. - Ebola Screening: : No symptoms or risks identified at this time. ROS: 13:08 Constitutional: Negative for fever, chills, and weight loss. jmm 13:08 Cardiovascular: Positive for chest pain. 13:08 Respiratory: Positive for shortness of breath. 13:08 Abdomen/GI: Positive for abdominal distension. 13:08 All other systems are negative. Exam: 13:08 Constitutional: This is a well developed, well nourished patient who is awake, alert, jmm and in no acute distress. Head/Face: atraumatic. Eyes: EOMI, no conjunctival erythema appreciated ENT: Moist Mucus Membranes Neck: Trachea midline, Supple Chest/axilla: Normal chest wall appearance and motion. 13:08 Cardiovascular: Rate: normal, Rhythm: regular, Pulses: no pulse deficits are appreciated. 13:08 Respiratory: the patient does not display signs of respiratory distress, Respirations: normal, Breath sounds: are clear throughout. 13:08 Abdomen/GI: Inspection: abdomen appears normal, Bowel sounds: normal, Palpation: abdomen is soft and non-tender, in all quadrants. 13:08 Back: ROM is normal. 13:08 Musculoskeletal/extremity: ROM: intact in all extremities. 13:08 Skin: Appearance: Color: normal in color. 13:08 Neuro: Orientation: is normal, Mentation: is normal, Memory: is normal. 13:08 Psych: Behavior/mood is pleasant, cooperative. 13:14 ECG was reviewed by the Attending Physician. [facility] Vital Signs: 12:31 BP 130 / 90; Pulse 77; Resp 18; Temp 98.6; Pulse Ox 98% on R/A; Weight 81.65 kg; Height la1 5 ft. 4 in. (162.56 cm); Pain 4/10; 15:10 BP 163 / 93; Pulse 82; Resp 18; Pulse Ox 96% on R/A; aj1 16:17 BP 157 / 91; Pulse 80; Resp 18; Pulse Ox 98% on R/A; aj1 17:15 BP 152 / 86; Pulse 81; Resp 18; Pulse Ox 98% on R/A; aj1 12:31 Body Mass Index 30.90 (81.65 kg, 162.56 cm) la1 MDM: 12:54 Patient medically screened. elzbieta 15:13 Data reviewed: vital signs, nurses notes. Counseling: I had a detailed discussion with [facility] the patient and/or guardian regarding: the historical points, exam findings, and any diagnostic results supporting the discharge/admit diagnosis, lab results, radiology results, the need for further work-up and treatment in the hospital. ED course: I discussed the patient with Dr. Belle whom accepted admission. I discussed the patient with Dr. Oviedo whom will consult on admission. . 02/10 12:59 Order name: Basic Metabolic Panel; Complete Time: 14:08 [facility] 02/10 12:59 Order name: CBC with Diff; Complete Time: 13:38 [facility] 02/10 12:59 Order name: LFT's; Complete Time: 14:08 [facility] 02/10 12:59 Order name: Magnesium; Complete Time: 14:08 [facility] 02/10 12:59 Order name: NT PRO-BNP; Complete Time: 14:08 [facility] 02/10 12:59 Order name: PT-INR; Complete Time: 14:08 [facility] 02/10 12:59 Order name: Troponin (emerg Dept Use Only); Complete Time: 14:08 [facility] 02/10 12:59 Order name: XRAY Chest (1 view); Complete Time: 13:34 [facility] 02/10 12:59 Order name: EKG; Complete Time: 13:00 [facility] 02/10 12:59 Order name: Cardiac monitoring; Complete Time: 13:25 [facility] 02/10 12:59 Order name: EKG - Nurse/Tech; Complete Time: 13:25 [facility] 02/10 12:59 Order name: IV Saline Lock; Complete Time: 13:28 [facility] 02/10 16:58 Order name: Troponin (emerg Dept Use Only) [facility] 02/10 17:30 Order name: Troponin (Emerg Dept Use Only); Complete Time: 18:33 [facility] 02/10 12:59 Order name: Labs collected and sent; Complete Time: 13:26 [facility] 02/10 12:59 Order name: O2 Per Protocol; Complete Time: 13:25 [facility] 02/10 12:59 Order name: O2 Sat Monitoring; Complete Time: 13:25 jm EC:14 Rate is 75 beats/min. Left axis deviation noted. RI interval is normal. QRS interval is jmm normal. QT interval is normal. T waves are Inverted in lead aVL. No ST changes noted. Administered Medications: No medications were administered Disposition: 02/10/19 15:15 Hospitalization ordered by Juan F Belle for Inpatient Admission. Preliminary diagnosis are Acute on chronic combined systolic (congestive) and diastolic (congestive) heart failure, Acute Kidney Injury. - Bed requested for Telemetry/MedSurg (Inpatient). - Status is Inpatient Admission. aj1 - Condition is Stable. - Problem is an acute exacerbation. - Symptoms are unchanged. UTI on Admission? No Addendum: 02/12/2019 07:53 Co-signature as Attending Physician, Geovanny Kimball MD I agree with the assessment and c lopez plan of care. Signatures: Dispatcher [employer] Noris Colby, RN RN samanta1 Geovanny Kimball MD MD cha Mickail, Joel, PA PA jmm Attema, Lee RN RN varun1 Gena Hinton Corrections: (The following items were deleted from the chart) 02/10 16:53 15:15 Hospitalization Ordered by Juan F Belle MD for Inpatient Admission. Preliminary eb diagnosis is Acute on chronic combined systolic (congestive) and diastolic (congestive) heart failure; Acute Kidney Injury. Bed requested for Telemetry/MedSurg (Inpatient). Status is Inpatient Admission. Condition is Stable. Problem is an acute exacerbation. Symptoms are unchanged. UTI on Admission? No. jmm 18:07 16:53 02/10/2019 15:15 Hospitalization Ordered by Juan F Belle MD for Inpatient aj1 Admission. Preliminary diagnosis is Acute on chronic combined systolic (congestive) and diastolic (congestive) heart failure; Acute Kidney Injury. Bed requested for Telemetry/MedSurg (Inpatient). Status is Inpatient Admission. Condition is Stable. Problem is an acute exacerbation. Symptoms are unchanged. UTI on Admission? No. eb
[2019-02-10] MEDS ORDERED: ONDANSETRON 4 MG/2 ML VIAL IV PRN (18:24)
[2019-02-10] MEDS ORDERED: GLUCAGON 1 MG/VIAL IM PRN (18:24)
[2019-02-10] MEDS ORDERED: D50W 25 GM/50 ML SYRINGE IV PRN (18:24)
[2019-02-10] MEDS ORDERED: ACETAMINOPHEN 500 MG TAB PO PRN (18:24)
[2019-02-10 18:47] VITALS: BMI 31.4
[2019-02-10] MEDS: FUROSEMIDE 40 MG/4 ML VIAL IV SCH (18:48)
[2019-02-10] MEDS: INSULIN -REGULAR HUMAN 50 UNIT/0.5 ML ML SQ SCH (21:00)
[2019-02-10] MEDS: SACUBITRIL/VALSARTAN 24/26 MG TAB PO SCH (21:04)
[2019-02-10] MEDS: METOPROLOL TAR 25 MG TAB PO SCH (21:04)
[2019-02-10] MEDS: ATORVASTATIN 40 MG TAB PO SCH (21:04)
[2019-02-10 23:08] LABS: Urine Appearance CLEAR; Urine Bilirubin NEGATIVE (NEG); Urine Blood NEGATIVE (NEG); Urine Color YELLOW; Urine Glucose NEGATIVE (NEG); Urine Protein 2+ (NEG); Urine Specific Gravity <=1.005 (1.005-1.030); Urine Urobilinogen 0.2 mg/dL (0.2-1.0); Urine pH 6.5 (5.0-7.0)
[2019-02-10 23:25] LABS: Urine Microscopic Reflex ORDER UMIC
[2019-02-11 00:12] LABS: Urine Bacteria <20 /HPF (NONE SEEN); Urine Culture Reflex Order NOT NEEDED; Urine RBC <5 /HPF (NONE SEEN)
--- NOTE | 2019-02-11 04:07 | HP ---
Date of Admission: 02/10/2019 Chief Complaint: Shortness of breath. Code Status: Full. History Of Present Illness: The patient is a 63-year-old male with past medical history of congestiv e heart failure, diabetes, hypertension, hyperlipidemia, coronary artery disease, chronic kidney dise ase, who comes in with shortness of breath for the past couple of days. The patient states that he i s compliant with his diet and, however, with his medications, he has difficulty seeing and his medica tions have been put in a pillbox by his [id number]. He is unaware of which ones are the daytime meds and which ones are the nighttime meds. The patient reports some swelling of his feet, shortnes s of breath. The patient's symptoms are constant, moderate, progressively worsening. The patient ca me into the ER for further evaluation. His workup revealed mild CHF, volume overload pattern on imag ing, and he was referred for admission. When seen in the ER, he was awake, alert, and oriented x3, i n some mild distress. Past Medical History: Diabetes, insulin-requiring; hypertension; hyperlipidemia; congestive heart fa ilure; history of ID, status post stents; anemia; chronic kidney disease, stage 3. Allergies: NO KNOWN DRUG ALLERGIES. Medications: List reviewed. Social History: The patient denies any tobacco use, alcohol use, or illicit drug use. The patient l doris at home. Currently, independent in his activities of daily living. Family History: Parents both had diabetes. Sister also had diabetes. Two sisters from complications of diabetes. Review of Systems: An 11-point system reviewed, negative except as per HPI. Physical Examination: Vital Signs: Blood pressure 130/90, pulse 77, respirations 18, temperature 98.6%, O2 98% on room air . General: Awake, alert, oriented x3, in some mild distress, elderly male. HEENT: Normocephalic, atraumatic. PERRLA. EOMI. Moist mucous membranes. Oropharynx is clear. Co njunctivae anicteric. Neck: Supple. Trachea midline. CV: S1, S2. Regular rate and rhythm. Peripheral pulses present. Respiratory: Diminished breath sounds. No wheezing or stridor. No use of accessory muscles. Gastrointestinal: Abdomen is soft, nontender, nondistended. Positive bowel sounds. No guarding or rigidity. Extremities: No clubbing, cyanosis. The patient has pedal edema. No calf tenderness. Neuro: Cranial nerves 2 through 12 intact grossly. No focal neurological deficits. Speech is shira l. Skin: No rashes. Normal skin turgor. Psych: Mood is okay. Affect is full. Insight and judgment are good. Laboratory Data: Sodium 136, potassium 4.8, chloride 104, CO2 25, BUN 27, creatinine 2, glucose 96, calcium 8.2, magnesium 2.3, troponin of 0.08. BNP is 23,222. INR 1.04. WBC 5.8, H and H 12.0 and 3 5.8, platelets 239. Chest x-ray, personally reviewed, shows mild CHF, volume overload pattern. Assessment And Plan: A 63-year-old male with: 1.Acute systolic heart failure exacerbation. Last known ejection fraction is 35% to 40%. We will s tart on congestive heart failure guidelines and strict inputs and outputs. Monitor daily weights. S odium restriction. Consult Cardiology. 2.Elevated troponin levels, likely due to demand mismatch. The patient denies any chest pain. No a cute changes on EKG. 3.Diabetes mellitus, type 2, insulin requiring with chronic kidney disease, stage 3. We will contin ue sliding scale insulin and Accu-Cheks. 4.Chronic kidney disease, stage 3. Creatinine stable. We will continue to monitor with Accu-Cheks and start on sliding scale insulin. 5.Essential hypertension, stable. We will resume home medications. 6.Hyperlipidemia. Continue statin. 7.Coronary artery disease, status post stent, wrangell artery, wrangell heart, without angina. We will resume home medications. No chest pain at this time. The patient does have some elevated troponin. We will repeat echocardiogram. Cardiology has been consulted. 8.Obesity. 9.Gastrointestinal/deep venous thrombosis prophylaxis with proton pump inhibitor and Lovenox. Admit the patient to Med-Surg, [facility] as observation. ADIA Voice ID: [id number]
[2019-02-11] MEDS: LEVOTHYROXINE SOD 0.088 MG TAB PO SCH (05:41)
[2019-02-11 06:20] LABS: Absolute Lymphocytes (CBC) 0.7 K/uL (0.7-4.9); Absolute Monocytes 0.5 K/uL (0.1-1.3); Basophils % 0.4 % (0-1.3); Eosinophils % 1.4 % (0-4.4); Hematocrit 30.6 % (39.6-49.0); Lymphocytes % 16.5 % (15.3-44.8); MPV 8.9 fL (7.6-11.3); Monocytes % 12.6 % (3.3-12.3); RBC Red Blood Cell Count 3.66 M/uL (4.33-5.43)
[2019-02-11 06:36] LABS: Albumin 2.9 g/dL (3.4-5.0); Bilirubin Total 0.5 mg/dL (0.2-1.0); Potassium 4.2 mmol/L (3.5-5.1); Protein, Total 6.1 g/dL (6.4-8.2); Uric Acid 6.1 mg/dL (3.5-7.2)
[2019-02-11] MEDS: INSULIN -REGULAR HUMAN 50 UNIT/0.5 ML ML SQ SCH ×4 (07:30→20:58)
[2019-02-11] MEDS: FUROSEMIDE 40 MG/4 ML VIAL IV SCH ×2 (08:27→17:23)
[2019-02-11] MEDS: ASPIRIN EC 81 MG TAB PO SCH (08:28)
[2019-02-11] MEDS: SACUBITRIL/VALSARTAN 24/26 MG TAB PO SCH ×2 (08:28→21:14)
[2019-02-11] MEDS: CLOPIDOGREL 75 MG TABLET PO SCH (08:28)
[2019-02-11] MEDS: METOPROLOL TAR 25 MG TAB PO SCH ×2 (08:29→21:14)
[2019-02-11] MEDS: INSULIN GLARGINE 100 UNITS/ML SQ SCH (08:29)
[2019-02-11] MEDS ORDERED: HOME MED 1 EA UNK (Linagliptin [Tradjenta] 5 MG) PO SCH (09:00)
--- NOTE | 2019-02-11 15:19 | CON ---
Date of Consultation: 02/11/2019 Reason For Consultation: Elevated BUN and creatinine, fluid management. History Of Present Illness: This is a pleasant unfortunate 63-year-old gentleman, well known to me f rom the office with significant past medical history of diabetes for more than 20 years, complicated with retinopathy, blind on the left eye, neuropathy, nephropathy, hypertension, coronary artery disea se, status post IN back in 2014, status post cardiac cath at that time, complicated with congestive h eart failure, last echocardiogram with ejection fraction of 35% back in 2017, hypertension, hyperlipi demia, chronic kidney disease stage 3B with baseline creatinine of 1.8-1.9, GFR of 32. The patient c erika to the hospital complaining of chest tightness and shortness of breath with orthopnea. Apparentl y, the patient because of that blurred vision is not taking his medication as he is supposed to. The patient on admission found to have creatinine on the 2 with decreased GFR. For that reason, we have been consulted. Over the night, the patient was started on diuresis. His shortness of breath has b een subsided significantly, feeling better. Kidney function stayed the same. Upon reviewing the rec ord for the patient, the patient apparently has proteinuria, nonnephrotic from previous visits. Sero logy was negative and SPEP was not done. For that reason, we ordered. Otherwise, no other medicatio n. The patient is already on Entresto for his cardiac, which has provided ARB for him. Past Medical History: 1.Hypertension. 2.Hyperlipidemia. 3.Coronary artery disease, status post IN in 2014, complicated with congestive heart failure, ejecti on fraction of 35. 4.Chronic kidney disease stage 3B secondary to cardiorenal/diabetic nephropathy, proteinuric, nonnep hrotic, baseline creatinine 1.8-1.9, GFR 30s. Allergies: NO KNOWN DRUGS ALLERGY. Family History: Positive for diabetes and hypertension. Social History: Denies smoking. Denies drinking. Denies drugs abuse. Past Surgical History: Include cardiac cath with PTCA. Medications: Home medications include: 1.Entresto . 2.Levothyroxine. 3.Insulin. 4.Aspirin. 5.Ranexa. 6.Plavix. 7.Tradjenta. 8.Atorvastatin. Current medication the patient on include in the hospital: 1.Aspirin. 2.Atorvastatin. 3.Plavix. 4.Lovenox. 5.Lasix 40 b.i.d. 6.Insulin. 7.Levothyroxine. 8.Metoprolol. 9.Ranexa. Review of Systems: Head and Neck: No red eye. No ear pain. GI: He has nausea without any vomiting. : No polyuria. No dysuria. No hematuria. [employer]GS[employer]IP[employer]: Not applicable. Respiratory: He has shortness breath. Cardiovascular: He has orthopnea. He has chest tightness. Endocrine: No polydipsia. Skin: No rash. Neuro: He has neuropathy. Musculoskeletal: Generalized fatigue. Physical Examination: Vital Signs: When I saw the patient, blood pressure 116/68, pulse of 64, afebrile. Chest: Faint crackles on the base. Heart: S1, S2. Systolic murmur. Abdomen: Soft, nontender. Extremities: Trace edema. Laboratory Data: H and H 10.1/30.6. No peripheral eosinophilia. Sodium 140, potassium 4.2, bicarb 25, BUN 27, creatinine of 2, calcium 7.8. PTH from previous admission is 94. TSH on previous admiss ion of 6. Protein creatinine on this admission minimal, less than 0.2. As I mentioned, the patient has workup before with hepatitis was negative and serology was negative except SPEP was not done. Assessment And Plan: 1.Chronic kidney disease stage 3B secondary to diabetes nephropathy/cardiorenal, stable on baseline over volume side. I am going to go ahead and agree with current treatment including the Lasix dose o f 40 mg b.i.d. In case the patient is going to be discharged, we will go back to 40 mg oral b.i.d. I doubt to have any component of the ARB or the Ranexa of declining his kidney function as the patien t around his baseline, so we will continue current medication. We will discuss with the primary rega augusto switching the metoprolol to carvedilol for cardiac benefits. 2.Hypertension, controlled, optimal. Continue current medication as I mentioned regarding the beta lisbet. 3.Coronary artery disease with congestive heart failure with marginal elevation in the troponin. We will follow up with Cardiology. 4.Diabetes as by primary. 5.Hypocalcemia, corrected calcium within normal limits. I am going to send for PTH and we will foll ow up. Thank you, Dr. Belle, for allowing us to participate in the care of your patient. VICKIE Voice ID: [id number] Report ID: [id number]
--- NOTE | 2019-02-11 16:34 | CON ---
History Of Present Illness: Mr. Villalpando came to the hospital with dyspnea. He realizes now that he lopez s been skipping half of his medicines. He understood his medication plan to be all once a day, so he was skipping evening doses of several of his medications. He developed pulmonary edema and overnigh t he has had a diuresis and feels better. When he came to the hospital, his chest x-ray indicated pu lmonary edema. Chest x-ray has not been repeated, but his lungs sound clear and he feels better. He has a history of stroke, history of stent in a coronary artery. His last cardiac catheterization wa s roughly a year ago at [facility] in [place]. He is known to have depressed ejection fraction and in past, he has been noted to have poor compliance. Sometimes, he simply makes mistakes. Medications: Outpatient medications are Entresto, aspirin, Ranexa, Plavix, Tradjenta, levothyroxine, atorvastatin, and insulin. Physical Examination: Vital Signs: 5 feet 4 inches, 179 pounds. HEENT: Normal. He has a mild left facial droop. Lungs: Clear. Heart: Does not reveal a significant murmur or gallop. Extremities: No edema. Distal pulses palpable. Laboratory Data: On telemetry, he is showing sinus rhythm. There is no electrocardiogram available for us. Impression: The patient had heart failure because of poor compliance with his medications. It is no t a lack of effort, but he simply was mistreating his instructions, did not understand them without s pecific notes, so he was taking half the amount of Entresto and ranolazine as he should have been. I t is interesting he is not on any diuretic. I think he probably should be on a diuretic. Thank you very much for your kind referral of Mr. Villalpando. I will follow him with you. NARGIS/LÓPEZ Voice ID: [id number] Report ID: [id number]
[2019-02-11] MEDS: ENOXAPARIN 30 MG/0.3 ML SQ SCH (17:23)
--- NOTE | 2019-02-11 18:34 | RAD REPORT ---
EXAM DESCRIPTION: US - Renal Ultrasound-Complete - 02/11/2019 5:18 pm CLINICAL HISTORY: Acute Kidney injury COMPARISON: Renal Ultrasound-Complete dated 04/18/2018 FINDINGS: Both kidneys are normal in size, shape and echotexture. The right kidney measures 10.8 x 6.4 x 4.6 cm. No hydronephrosis, focal mass or perinephric fluid. The left kidney measures 9.7 x 4.9 x 4.1 cm. No hydronephrosis, focal mass or perinephric fluid. The urinary bladder is incompletely distended without gross abnormality seen. IMPRESSION: Unremarkable renal sonogram.
[2019-02-11] MEDS: ATORVASTATIN 40 MG TAB PO SCH (21:14)
--- NOTE | 2019-02-11 23:20 | PN ---
Date of Progress Note: 02/11/2019 Subjective: The patient is seen and examined, chart reviewed, and case discussed with Dr. Nowak. The patient denies any chest pain. States his breathing has improved significantly, not on any supplemental oxygen. Medications: List reviewed. Physical Examination: Vital Signs: Temperature 97.3, heart rate 60, blood pressure 112/60, respirations 18, O2 98% on room air. General: Awake, alert, oriented x3, not in any acute distress, elderly male. CV: S1, S2. Regular rate and rhythm. Peripheral pulses present. Respiratory: Moving air well bilaterally. No wheezing. Gastrointestinal: Abdomen is soft, nontender, nondistended. Positive bowel sounds. Extremities: No clubbing, cyanosis. Trace pedal edema. Neurologic: Nonfocal. Laboratory Data: Sodium 140, potassium 4.2, chloride 107, CO2 25, BUN 27, creatinine 2.07, glucose 107, calcium 7.8. Troponins 0.1 and 0.1. Albumin 2.9. WBC 4.3, H and H 10.1 and 30.6, platelets 232. Assessment And Plan: A 63-year-old male with: 1. Acute systolic heart failure exacerbation. We will need to repeat ejection fraction, last known ejection fraction was 35% to 40%. We will continue with congestive heart failure guidelines. The patient has had good diuresis, -2 L of fluid balance. Appreciate Dr. Nowak' input. 2. Elevated troponin levels of unknown significance, may be due to demand mismatch. There is no chest pain or any changes on EKG. Cardiology does not recommend any full-dose anticoagulation. 3. Diabetes mellitus type 2, insulin requiring with chronic kidney disease, stage 3. Continue sliding scale insulin and monitor blood glucose levels. 4. Chronic kidney disease, stage 3. Creatinine is around baseline. For now, we will continue to monitor and avoid nonsteroidal anti-inflammatory drugs. Appreciate Nephrology input. 5. Essential hypertension, stable. 6. Mixed hyperlipidemia, continue statin. 7. Coronary artery disease, status post stent, [place] artery, [place] heart without angina, stable. 8. Obesity, body mass index 30. 9. Deep venous thrombosis prophylaxis with Lovenox. Plan: Obtain echocardiogram. DC once cleared by Cardiology. SA/MODL Voice ID: [id number] Report ID: [id number] MTDD
[2019-02-12 01:14] VITALS: O2SAT 98
[2019-02-12] MEDS: LEVOTHYROXINE SOD 0.088 MG TAB PO SCH (05:11)
[2019-02-12 06:20] LABS: Absolute Lymphocytes (CBC) 0.8 K/uL (0.7-4.9); Absolute Monocytes 0.6 K/uL (0.1-1.3); Absolute Neutrophil 2.9 K/uL (1.8-8.0); Basophils % 0.5 % (0-1.3); Eosinophils % 1.4 % (0-4.4); Hematocrit 30.9 % (39.6-49.0); Lymphocytes % 17.8 % (15.3-44.8); MPV 8.7 fL (7.6-11.3); RBC Red Blood Cell Count 3.71 M/uL (4.33-5.43)
[2019-02-12 06:39] LABS: Albumin 2.9 g/dL (3.4-5.0); Bilirubin Total 0.4 mg/dL (0.2-1.0); Potassium 4.5 mmol/L (3.5-5.1)
[2019-02-12] MEDS: INSULIN -REGULAR HUMAN 50 UNIT/0.5 ML ML SQ SCH ×3 (07:30→16:12)
[2019-02-12] MEDS: INSULIN GLARGINE 100 UNITS/ML SQ SCH (09:03)
[2019-02-12] MEDS: ASPIRIN EC 81 MG TAB PO SCH (09:05)
[2019-02-12] MEDS: CLOPIDOGREL 75 MG TABLET PO SCH (09:05)
[2019-02-12] MEDS: SACUBITRIL/VALSARTAN 24/26 MG TAB PO SCH (09:05)
[2019-02-12] MEDS: METOPROLOL TAR 25 MG TAB PO SCH (09:05)
[2019-02-12] MEDS: FUROSEMIDE 40 MG/4 ML VIAL IV SCH ×2 (09:06→16:12)
[2019-02-12 16:13] VITALS: BP 113/67
[2019-02-12] MEDS: ENOXAPARIN 30 MG/0.3 ML SQ SCH (16:13)
[2019-02-12 16:27] VITALS: TEMP 98
--- NOTE | 2019-02-12 16:33 | ECHO ---
HEIGHT: 5 ft 4 in WEIGHT: 179 lb 0 oz DATE OF STUDY: 02/12/[address]: Juan F Belle MD 2-DIMENSIONAL: YES M.MODE: YES DOPPLER: YES COLOR FLOW: YES TDS: PORTABLE: DEFINITY: BUBBLE STUDY: DIAGNOSIS: CONGESTIVE HEART FAILURE, CHEST PAIN. CARDIAC HISTORY: CATHERIZATION: YES SURGERY: NO PROSTHETIC VALVE: NO PACEMAKER: NO MEASUREMENTS (cm) DIASTOLIC (NORMALS) SYSTOLIC (NORMALS) IVSd 1.2 (0.6-1.2) LA Diam 3.9 (1.9-4.0) LVEF 21% LVIDd 6.1 (3.5-5.7) LVIDs 5.5 (2.0-3.5) %FS 10% LVPWd 1.1 (0.6-1.2) Ao Diam 3.0 (2.0-3.7) 2 DIMENSIONAL ASSESSMENT: RIGHT ATRIUM: DILATED LEFT ATRIUM: DILATED RIGHT VENTRICLE: DILATED LEFT VENTRICLE: DILATED TRICUSPID VALVE: NORMAL MITRAL VALVE: NORMAL PULMONIC VALVE: NORMAL AORTIC VALVE: NORMAL PERICARDIAL EFFUSION: NONE AORTIC ROOT: NORMAL LEFT VENTRICULAR WALL MOTION: SEVERE GLOBAL HYPOKINESIS DOPPLER/COLOR FLOW: MILD MITRAL REGURGITATION AND TRICUSPID REGURGITATION. NORMAL RIGHT VENTRICULAR SYSTOLIC PRESSURE. COMMENTS: FOUR CHAMBER DILATION. BIVENTRICULAR CONGESTIVE HEART FAILURE. MILD MITRAL REGURGITATION AND TRICUSPID REGURGITATION. TECHNOLOGIST: DANA CRUMP
--- NOTE | 2019-02-13 04:34 | PN ---
Date of Progress Note: 02/12/2019 Chief Complaint: Elevated BUN and creatinine. History Of Present Illness: The patient is a 63-year-old man with history of diabetes mellitus, diab etic retinopathy, nephropathy, hypertension, coronary artery disease, history of myocardial infarctio n. The patient has chronic kidney disease stage 3 secondary to diabetes mellitus and hypertension. Baseline creatinine level is 1.8 to 1.9. The patient was complaining of blurred vision and generaliz ed weakness. The patient is admitted to the hospital because of generalized weakness. The patient w as found to have anemia. Hemoglobin was 10.0. Renal function remains at baseline. Review of Systems: Denies fevers or chills. Physical Examination: Lungs: Clear to auscultation bilaterally. Heart: S1, S2. Abdomen: Soft, benign. Extremities: Slight edema. Laboratory Data: Sodium 140, potassium 4.2, bicarbonate 25, BUN 27, creatinine 2.0, calcium 7.8. Impression And Plan: 1.Chronic kidney disease stage 3B secondary to diabetes mellitus and cardiorenal syndrome. The clay ent is on medication for volume control. Volemia has been stable. Continue low-sodium diet and curr ent treatment with Lasix 40 mg twice a day. The patient will need to follow up with Nephrology outpa tient. Continue angiotensin receptor lisbet for management of cardiorenal syndrome. 2.Anemia, chronic. The patient does not require blood transfusion. Hemoglobin is over 10. The pat ient may benefit from LEO when hemoglobin is below 10. Monitor iron status and adjust treatment accordingly. RAQUEL Voice ID: [id number] Report ID: [id number]
--- NOTE | 2019-02-13 05:40 | DS ---
Date of Discharge: 02/12/2019 Consultants: Dr. Nowak with Cardiology. Discharge Diagnoses: 1.Acute systolic heart failure exacerbation, EF less than 20%. 2.Elevated troponin level due to congestive heart failure exacerbation and demand mismatch. The rosi raines is not a candidate for repeat cardiac catheterization due to his kidney function. The patient w as recently in [facility]. 3.Diabetes mellitus, type 2, insulin-requiring with chronic kidney disease stage 3. 4.Chronic kidney disease stage 3, stable. 5.Essential hypertension, stable. 6.Mixed hyperlipidemia, on statin. 7.Coronary artery disease, status post stent, [place] artery and [place] heart without angina. 8.Obesity, BMI 30. Hospital Course: The patient is a noncompliant 63-year-old male, who was admitted to the hospital fo r shortness of breath. The patient states that he has visual problems and is not taking his medicati ons as prescribed, has been taking different doses, does not know which ones are the night meds and w hich ones are the daytime meds. The patient was started on diuretics. His chest x-ray showed improv ement. His kidney function remained stable. He put out significant amount of fluid and his fluid ba ladarius was negative. His weight decreased by 4 pounds. The patient's breathing significantly improve d. He was back to his dry weight. The patient also seen by Dr. Nowak with Cardiology and echocardi ogram was done. He was found to have an EF of 21%. He has biventricular heart failure, mild mitral regurgitation and tricuspid regurgitation and 4-chamber dilation. The patient is already on Entresto . The patient needs a biventricular AICD. 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 Nowak here in [place] to be set up with a defibrillator. He underst ands the graveness of his disease. He is at risk for a sudden cardiac arrest given his low EF. The patient wants to go home today, does not want to stay further in the hospital, and I spoke with his d [id number] who has been maintaining his medications and is taking care of his medical issues as s he wishes to take him to [place] to have his AICD placed. The patient was then cleared for discha e and was sent home in a stable condition. Activity: No strenuous activity. Followup: Follow up with primary care physician in 2-3 days. Follow up with counter person, Dr. Jacob jacobsen, in 2 weeks. Follow up with night warehouse manager, Dr. Nowak, in 2 weeks. Return to ER for worsening co ndition. Diet: Low-sodium, fluid-restricted diet, 1500 mL. Medications: As per medication reconciliation list. /LÓPEZ Voice ID: [id number] Report ID: [id number]
--- NOTE | 2019-02-13 11:32 | EKG ---
Test Date: 2019-02-10 Test Time: 12:50:12 Operations Leader: VICTOR M MEASUREMENT RESULTS: Intervals: Rate: 75 [place]: 194 QRSD: 112 QT: 440 QTc: 491 Talent: P: 61 [place]: 194 QRS: -63 T: 87 INTERPRETIVE STATEMENTS: Normal sinus rhythm Left axis deviation Septal infarct, age undetermined Abnormal ECG Compared to ECG 04/10/2018 18:19:45 no significant change from previous ECG Electronically Signed On 02-11-19 10:51:09 CDT by Pro Nowak
[2019-02-16 01:53] LABS: Albumin, (SPE) 2.9 g/dL (3.8-4.8); Alpha-1-Globulins 0.2 g/dL (0.2-0.3); Alpha-2-Globulins 0.8 g/dL (0.5-0.9); Gamma Globulins 0.8 g/dL (0.8-1.7); INTERPRETATION REPORT
== END 2019-02-12 18:15 | disposition home or self-care (01) ==
LOC: ER 12:25 → ERHOLD 15:47 → 2ND 17:50
PROVIDERS: ADMIT Family Medicine; ATTEND Family Medicine
DX: I50.21 Acute systolic (congestive) heart failure (principal); I13.0 Hypertensive heart and chronic kidney disease with heart failure and stage 1 through stage 4 chronic kidney disease, or unspecified chronic kidney disease; I25.10 Atherosclerotic heart disease of native coronary artery without angina pectoris; N18.3 Chronic kidney disease, stage 3 (moderate); E11.22 Type 2 diabetes mellitus with diabetic chronic kidney disease; E78.2 Mixed hyperlipidemia; E66.9 Obesity, unspecified; D63.1 Anemia in chronic kidney disease; J81.1 Chronic pulmonary edema; E83.51 Hypocalcemia; Z98.61 Coronary angioplasty status; Z95.5 Presence of coronary angioplasty implant and graft; Z68.30 Body mass index [BMI] 30.0-30.9, adult; Z91.14 Patient's other noncompliance with medication regimen; Z79.4 Long term (current) use of insulin
CPT/HCPCS: 93005; 93306; 85025 ×3; 80048; 36415 ×2; 83735; 82550; 85610; 82962 ×8; 80076; 84550; 82570; 84484 ×4; 80053 ×2; 83880; 84156; 84165; 71045; 76770; 94760 ×3; 99285; J1940 ×5; J1650 ×2; G0378 ×2; 81003; 81015

== ENCOUNTER 2019-03-24 13:31 | Emergency (ER) | payer OTHER ==
--- OUTSIDE RECORDS SUMMARY | 2019-03-24 13:33 | XMS REPORT | Clinical Summary ---
:1955 Author Organization [facility] Address [address] [place] [id number] Care Team Providers Name Role Phone Unavailable Primary Care Provider Unavailable Allergies Not on File Medications Not on file Active Problems Not on file Social History Tobacco Use Types Packs/Day Years Used Date Never Assessed Sex Assigned at Date Recorded Not on file Job Start Date Occupation Industry Not on file Not on file Not on file Travel History Travel Start Travel End No recent travel history available. Last Filed Vital Signs Not on file Plan of Treatment Not on file Results Not on fileafter 03/23/2018 Insurance Payer Benefit Plan / Group Subscriber ID Type Phone Address FABI[address]A [address]JEDA xxxxxxxxxxx ([place]) [place] [address]
--- OUTSIDE RECORDS SUMMARY | 2019-03-24 13:33 | XMS REPORT ---
:1955 Author Organization [employer] Care Team Providers Name Role Phone Andrew Corleyh Provider Role Unavailable Allergies, Adverse Reactions, Alerts Substance Reaction Event Type N.K.D.A. 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.4 Active Assessment [...] Assessment Stented coronary artery Z95.5 Active Assessment detention current use of insulin Z79.4 Active Assessment Systolic congestive heart failure, I50.20 Active unspecified HF chronicity Assessment Anemia, unspecified type D64.9 Active Assessment Coronary artery disease involving I25.10 Active [place] coronary artery of [place] heart, angina presence unspecified Assessment Orthostatic hypotension I95.1 Active Assessment Type 2 diabetes mellitus with other E11.29 Active diabetic kidney complication Problem Systolic congestive heart failure, I50.20 Active unspecified HF chronicity Medications Medication Code Code Instructions Start End Status Dosage System Date Date Aspirin 81 [facility] 18491356958 81 MG Orally Active 1 tablet Once a day Atorvastatin [facility] 71801697511 40 MG Orally Active 1 tablet Calcium Once a day Ranexa [facility] 86227209439 1000 MG Orally Active 1 tablet Twice a day Humulin N [facility] 78707870218 100 UNIT/ML Active not Subcutaneous defined Clopidogrel [facility] 82785528730 75 MG Orally Active 1 tablet Bisulfate Once a day Entresto [facility] 44862744402 24-26 MG Orally Active 1 tablet Twice a day Results No Known Results Summary Purpose eClinicalWorks Submission
--- OUTSIDE RECORDS SUMMARY | 2019-03-24 13:34 | XMS REPORT ---
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 Active Problem Mixed hyperlipidemia E78.2 Active Problem Orthostatic hypotension I95.1 Active Problem Stented coronary artery Z95.5 Active Assessment Mixed hyperlipidemia E78.2 Active Assessment Hypothyroidism, unspecified type E03.9 Active 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 Assessment [...] Problem Coronary artery disease involving I25.10 Active [place] coronary artery of [place] heart, angina presence unspecified Medications Medication Code Code Instructions Start End Status Dosage System Date Date Tradjenta [facility] 83425591444 5 MG Orally Active 1 tablet Once a day Synthroid [facility] 79724217874 88 MCG Orally Active 1 tablet Once a day on an empty stomach in the morning Ranexa [facility] 01699994696 1000 MG Active TAKE 1 TABLET BY MOUTH TWICE A DAY Basaglrocco Jules [facility] 60253842991 100 UNIT/ML Active inject 20 Subcutaneous units once day Clopidogrel [facility] 31463383290 75 MG Orally Active 1 tablet Bisulfate Once a day Ranexa [facility] 55659975330 1000 MG Orally Active 1 tablet Twice a day Entresto 24/26mg [facility] 02943354496 24/26mg oral JanuaryMarch 25, Active one bid 2018 Atorvastatin [facility] 33080914047 40 MG Orally Active 1 tablet Calcium Once a day Aspirin 81 [facility] 36891299519 81 MG Orally Active 1 tablet Once a day Results Name Result Date Reference Range Unit Abnormality Flag HEMOGLOBIN A1C ----A1C 7.3 [id number] Summary Purpose eClinicalWorks Submission
--- OUTSIDE RECORDS SUMMARY | 2019-03-24 13:34 | XMS REPORT ---
[...] Assessment Coronary artery disease involving I25.10 Active [place] coronary artery of [place] heart, angina presence unspecified Problem Systolic congestive heart failure, I50.20 Active unspecified HF chronicity Assessment Stented coronary artery Z95.5 Active Assessment Type 2 diabetes mellitus with E11.65 Active hyperglycemia Problem Hypothyroidism, unspecified type E03.9 Active Problem [facility] current use of insulin Z79.4 Active Problem Mixed hyperlipidemia E78.2 Active Problem Orthostatic hypotension I95.1 Active Problem Stented coronary artery Z95.5 Active Assessment Mixed hyperlipidemia E78.2 Active Assessment Hypothyroidism, unspecified type E03.9 Active Assessment [facility] current use of insulin Z79.4 Active Assessment [...] Problem Coronary artery disease involving I25.10 Active [place] coronary artery of [place] heart, angina presence unspecified Medications Medication Code Code Instructions Start End Status Dosage System Date Date Aspirin 81 [facility] 41878570826 81 MG Orally Active 1 tablet Once a day Clopidogrel [facility] 48553429607 75 MG Orally Active 1 tablet Bisulfate Once a day Basaglar ValerieikPen [facility] 20792656092 100 UNIT/ML Active inject 20 Subcutaneous units once day Ranexa [facility] 54218887925 1000 MG Active TAKE 1 TABLET BY MOUTH TWICE A DAY Atorvastatin [facility] 79046112807 40 MG Orally Active 1 tablet Calcium Once a day Synthroid [facility] 46750428849 88 MCG Orally Active 1 tablet Once a day on an empty stomach in the morning Ranexa [facility] 10272708990 1000 MG Orally Active 1 tablet Twice a day Tradjenta [facility] 55541140063 5 MG Orally Active 1 tablet Once a day Results No Known Results Summary Purpose eClinicalWorks Submission
--- OUTSIDE RECORDS SUMMARY | 2019-03-24 13:34 | XMS REPORT ---
:1955 Author Organization [employer] Care Team Providers Name Role Phone ÁlvaroimtiazRoberto Provider Role Unavailable Allergies No Known Allergies Problems Problem Type Condition Code Onset Dates Condition Status Problem Type 2 diabetes mellitus with E11.65 Active hyperglycemia Problem History of fall Z91.81 Active Problem Type 2 diabetes mellitus with other E11.29 Active diabetic kidney complication Problem Anemia, unspecified type D64.9 Active Problem Coronary artery disease involving I25.10 Active [place] coronary artery of [place] heart, angina presence unspecified Problem CKD (chronic kidney disease), stage N18.3 Active III Problem Systolic congestive heart failure, I50.20 Active unspecified HF chronicity Problem Hypothyroidism, unspecified type E03.9 Active 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
--- OUTSIDE RECORDS SUMMARY | 2019-03-24 13:34 | XMS REPORT ---
:1955 Author Organization [employer]ClinicalWorks Care Team Providers Name Role Phone Jack Corley Provider Role Unavailable Allergies No Known Allergies Problems Problem Type Condition Code Onset Dates Condition Status Problem CKD (chronic kidney disease), stage N18.3 Active III Problem Coronary artery disease involving I25.10 Active [place] coronary artery of [place] heart, angina presence unspecified Problem Anemia, unspecified type D64.9 Active Problem Systolic congestive heart failure, I50.20 Active unspecified HF chronicity Problem Stented coronary artery Z95.5 Active Problem [facility] current use of 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
--- OUTSIDE RECORDS SUMMARY | 2019-03-24 13:34 | XMS REPORT ---
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
--- OUTSIDE RECORDS SUMMARY | 2019-03-24 13:34 | XMS REPORT ---
:1955 Author Organization [employer]Works Care Team Providers Name Role Phone Jack Corley Provider Role Unavailable Allergies, Adverse Reactions, Alerts Substance Reaction Event Type N.K.D.A. Info Not Available Non Drug Allergy Problems Problem Type Condition Code Onset Dates Condition Status Assessment HTN, goal below 140/90 I10 Active Assessment Non compliance w medication regimen Z91.14 Active Assessment Proteinuria, unspecified type R80.9 Active Assessment History of fall Z91.81 Active Assessment Type 2 diabetes mellitus with E11.65 Active hyperglycemia Problem Type 2 diabetes mellitus with E11.65 Active hyperglycemia Assessment Stented coronary artery Z95.5 Active Problem Type 2 diabetes mellitus with other E11.29 Active diabetic kidney complication Assessment Coronary artery disease involving I25.10 Active [place] coronary artery of [place] heart, angina presence unspecified Problem History of fall Z91.81 Active 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 Problem Mixed hyperlipidemia E78.2 Active Problem HTN, goal below 140/90 I10 Active Problem Hypothyroidism, unspecified type E03.9 Active Assessment Mixed hyperlipidemia E78.2 Active Assessment Anemia, unspecified type D64.9 Active Problem Acute on chronic systolic congestive I50.23 Active heart failure Assessment correction current use of insulin Z79.4 Active Problem Orthostatic hypotension I95.1 Active Problem Stented coronary artery Z95.5 Active Problem Systolic congestive heart failure, I50.20 Active unspecified HF chronicity Problem CKD (chronic kidney disease), stage N18.3 Active III Assessment Systolic congestive heart failure, I50.20 Active unspecified HF chronicity Assessment Type 2 diabetes mellitus with other E11.29 Active diabetic kidney complication Assessment Hypothyroidism, unspecified type E03.9 Active Assessment CKD (chronic kidney disease), stage N18.3 Active III Problem Anemia, unspecified type D64.9 Active Problem Coronary artery disease involving I25.10 Active [place] coronary artery of [place] heart, angina presence unspecified Assessment Acute on chronic systolic congestive I50.23 Active heart failure Medications Medication Code Code Instructions Start End Status Dosage System Date Date Tradjenta [facility] 95101632211 5 MG Orally Active 1 tablet Once a day Aspirin 81 [facility] 03463070269 81 MG Orally Active 1 tablet Once a day Ranexa [facility] 39033068440 1000 MG Active TAKE 1 TABLET BY MOUTH TWICE A DAY Synthroid [facility] 32754903170 88 MCG Orally Active 1 tablet Once a day on an empty stomach in the morning Ranexa [facility] 98920836652 1000 MG Orally Active 1 tablet Twice a day Spironolactone [facility] 93141510337 25 MG Orally Active 1 tablet Entresto 24/26mg [facility] 32951907244 24/26mg oral [place] Active one bid 2018 Atorvastatin [facility] 32034385365 40 MG Orally Active 1 tablet Calcium Once a day Metoprolol [facility] 93434089632 25 MG Orally Active 1 tablet Tartrate Twice a day with food Furosemide [facility] 98110951112 20 MG Orally Active 1 tablet Once a day Cetirizine HCl [facility] 43272406780 10 MG Orally Active 1 tablet Once a day Trazodone HCl [facility] 16292283706 50 MG Orally Active 1 tablet Once a day at bedtime as needed Clopidogrel [facility] 44309904426 75 MG Orally Active 1 tablet Bisulfate Once a day Basaglar KwikPen [facility] 08113989594 100 UNIT/ML Active inject 20 Subcutaneous units once day Results No Known Results Summary Purpose eClinicalWorks Submission
--- OUTSIDE RECORDS SUMMARY | 2019-03-24 13:34 | XMS REPORT ---
[...] Problem Coronary artery disease involving I25.10 Active [place] coronary artery of [place] heart, angina presence unspecified Problem CKD (chronic kidney disease), stage N18.3 Active III Problem Systolic congestive heart failure, I50.20 Active unspecified HF chronicity Problem Hypothyroidism, unspecified type E03.9 Active Problem halfway current use of insulin Z79.4 Active Problem Mixed hyperlipidemia E78.2 Active Problem Orthostatic hypotension I95.1 Active Problem Stented coronary artery Z95.5 Active Medications No Known Medications Results No Known Results Summary Purpose [employer] Submission
--- OUTSIDE RECORDS SUMMARY | 2019-03-24 13:34 | XMS REPORT ---
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 Problem Mixed hyperlipidemia E78.2 Active Problem Orthostatic hypotension I95.1 Active Problem Stented coronary artery Z95.5 Active Assessment Coronary artery disease involving I25.10 Active [place] coronary artery of [place] heart, angina presence unspecified Problem Anemia, unspecified type D64.9 Active Problem Coronary artery disease involving I25.10 Active [place] coronary artery of [place] heart, angina presence unspecified Medications Medication Code System Code Instructions Start End Date Status Dosage Date Vitamin D-3 [facility] 63372544733 5000 UNIT Orally May 01, Jul 30, Active 1 tablet Once a day 2017 2017 Ranexa [facility] 29649142626 1000 MG Orally Active 1 tablet Twice a day Results No Known Results Summary Purpose eClinicalWorks Submission
--- OUTSIDE RECORDS SUMMARY | 2019-03-24 13:34 | XMS REPORT ---
:1955 Author Organization eClinicalWorks Care Team Providers Name Role Phone Jack Corley Provider Role Unavailable Allergies No Known Allergies Problems Problem Type Condition Code Onset Dates Condition Status Problem CKD (chronic kidney disease), stage N18.3 Active III Problem Coronary artery disease involving I25.10 Active [place] coronary artery of [place] heart, angina presence unspecified Problem Anemia, unspecified type D64.9 Active Problem Systolic congestive heart failure, I50.20 Active unspecified HF chronicity Problem Stented coronary artery Z95.5 Active Problem snf current use of 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
--- OUTSIDE RECORDS SUMMARY | 2019-03-24 13:34 | XMS REPORT ---
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 Active Problem Mixed hyperlipidemia E78.2 Active Problem Orthostatic hypotension I95.1 Active Problem Stented coronary artery Z95.5 Active Assessment Mixed hyperlipidemia E78.2 Active Assessment Hypothyroidism, unspecified type E03.9 Active Assessment manager 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 Z79.4 Active Assessment Anemia, unspecified type D64.9 Active Assessment Systolic congestive heart failure, I50.20 Active unspecified HF chronicity Assessment CKD (chronic kidney disease), stage N18.3 Active III Problem Anemia, unspecified type D64.9 Active Assessment History of fall Z91.81 Active Assessment Type 2 diabetes mellitus with other E11.29 Active diabetic kidney complication Problem Coronary artery disease involving I25.10 Active [place] coronary artery of [place] heart, angina presence unspecified Medications Medication Code Code Instructions Start End Status Dosage System Date Date Humulin N [place] 75400896631 100 UNIT/ML Inactive not Subcutaneous defined Ranexa [facility] 45511719306 1000 MG Orally Active 1 tablet Twice a day Aspirin 81 ND 58021942338 81 MG Orally Active 1 tablet Once a day Basaglar ND 91790722552 100 UNIT/ML April 27, Active Inject 10 KwikPen Subcutaneous 2018 units once day Synthroid ND 49045533223 50 MCG Orally Active 1 tablet Once a day on an empty stomach in the morning Atorvastatin [facility] 87099282193 40 MG Orally Active 1 tablet Calcium Once a day Entresto [facility] 14667521246 24-26 MG Orally April Inactive 1 tablet Twice a day 2017 Clopidogrel [facility] 22579585861 75 MG Orally Active 1 tablet Bisulfate Once a day Tradjenta [facility] 80836612290 5 MG Orally April 27, Active 1 tablet Once a day 2017 Results No Known Results Summary Purpose eClinicalWorks Submission
[2019-03-24 14:46] LABS: Absolute Lymphocytes (CBC) 0.8 K/uL (0.7-4.9); Absolute Monocytes 0.6 K/uL (0.1-1.3); Absolute Neutrophil 4.2 K/uL (1.8-8.0); Basophils % 0.7 % (0-1.3); Eosinophils % 0.7 % (0-4.4); Hematocrit 33.3 % (39.6-49.0); Lymphocytes % 13.6 % (15.3-44.8); MPV 9.6 fL (7.6-11.3); Monocytes % 11.2 % (3.3-12.3); RBC Red Blood Cell Count 4.01 M/uL (4.33-5.43)
--- NOTE | 2019-03-24 15:29 | ER ---
Nurse's Notes [facility] Name: Benji Villalpando Age: 63 yrs Sex: Male : 1955 Arrival Date: 03/24/2019 Time: 13:34 Bed 26 Private MD: Diagnosis: Hypoglycemia, unspecified Presentation: 03/24 13:49 Presenting complaint: Patient states: Blood sugar has been low at home, in the 50's for sg about four days, is able to eat and drink, reports feeling tired and not normal. Transition of care: patient was not received from another setting of care. Onset of symptoms was March 24, 2019. Risk Assessment: Do you want to hurt yourself or someone else? Patient reports no desire to harm self or others. Initial Sepsis Screen: Does the patient meet any 2 criteria? No. Patient's initial sepsis screen is negative. Does the patient have a suspected source of infection? No. Patient's initial sepsis screen is negative. Care prior to arrival: None. 13:49 Method Of Arrival: Ambulatory sg 13:49 Acuity: MILADYS 3 sg Historical: - Allergies: 13:52 No Known Allergies; sg - Home Meds: 14:15 aspirin 81 mg Oral chew 1 tab once daily [Active]; Tradjenta 5 mg oral tab 1 tab once la1 daily [Active]; cetirizine 10 mg oral tab 1 tab once daily [Active]; clopidogrel 75 mg oral tab 1 tab once daily [Active]; atorvastatin 40 mg Oral tab 1 tab once daily [Active]; ranolazine oral 1000mg oral 1 tab 2 times per day [Active]; levothyroxine 88 mcg tab 1 tab once daily [Active]; Entresto 24-26 mg oral tab 1 tab twice a day [Active]; metoprolol tartrate 50 mg Oral tab 1 tab once daily [Active]; trazodone 50 mg Oral tab 1 tab nightly [Active]; furosemide 20 mg Oral tab 1 tab once daily [Active]; spironolactone 25 mg Oral tab 1 tab once daily [Active]; Insulin Glargine 20 units Sub-Q nightly [Active]; - PMHx: 13:52 Anemia; Diabetes - IDDM; Hypertension; kidney failure stage 3; Myocardial infarction; sg - Immunization history:: Adult Immunizations not up to date. - Social history:: Smoking status: Patient/guardian denies using tobacco. - Ebola Screening: : Patient negative for fever greater than or equal to 101.5 degrees Fahrenheit, and additional compatible Ebola Virus Disease symptoms Patient denies exposure to infectious person Patient denies travel to an Ebola-affected area in the 21 days before illness onset No symptoms or risks identified at this time. Screenin:54 Abuse screen: Denies threats or abuse. Nutritional screening: On. Tuberculosis la1 screening: No symptoms or risk factors identified. Fall Risk None identified. Assessment: 13:53 General: Appears in no apparent distress. Behavior is calm, cooperative. Pain: Denies la1 pain. Neuro: Level of Consciousness is awake, alert, obeys commands, Oriented to person, place, time, situation. Cardiovascular: Heart tones S1 S2 present Capillary refill < 3 seconds Patient's skin is warm and dry. Respiratory: Airway is patent Respiratory effort is even, unlabored, Respiratory pattern is regular, symmetrical, Breath sounds are clear bilaterally. GI: No signs and/or symptoms were reported involving the gastrointestinal system. : No signs and/or symptoms were reported regarding the genitourinary system. 15:22 Reassessment: Patient appears in no apparent distress at this time. No changes from la1 previously documented assessment. Patient and/or family updated on plan of care and expected duration. Pain level reassessed. Patient is alert, oriented x 3, equal unlabored respirations, skin warm/dry/pink. 15:51 Reassessment: Patient appears in no apparent distress at this time. No changes from la1 previously documented assessment. Patient and/or family updated on plan of care and expected duration. Pain level reassessed. Patient is alert, oriented x 3, equal unlabored respirations, skin warm/dry/pink. Vital Signs: 13:50 BP 139 / 90; Pulse 92; Resp 16; Temp 97.4; Pulse Ox 95% on R/A; Pain 0/10; sg 15:50 BP 135 / 85; Pulse 74; Resp 16; Pulse Ox 98% on R/A; la1 ED Course: 13:34 Patient arrived in ED. tw3 13:46 Gregor Waller, RN is Primary Nurse. la1 13:50 Triage completed. sg 13:51 Arm band placed on. sg 13:54 Call light in reach. la1 14:07 Stark, Severo, MD is Attending Physician. 14:33 Initial lab(s) drawn, by me, sent to lab. Inserted saline lock: 22 gauge in right lt1 antecubital area, using aseptic technique. 14:34 Basic Metabolic Panel Sent. lt1 14:34 CBC with Diff Sent. lt1 15:46 IV discontinued, intact, bleeding controlled, No redness/swelling at site. Pressure rv dressing applied. 15:51 No provider procedures requiring assistance completed. la1 Administered Medications: No medications were administered Point of Care Testing: Blood Glucose: 13:50 Blood Glucose: 148 mg/dL; sg Ranges: Outcome: 15:28 Discharge ordered by MD. 15:51 Discharged to home ambulatory. la1 15:51 Condition: stable 15:51 Discharge instructions given to patient, family, Instructed on discharge instructions, follow up and referral plans. Demonstrated understanding of instructions, follow-up care, medications, Prescriptions given X pt instructed to take 1/2 his insulin dose at night for now, increase dietary consumption during the day and to follow up with PCP on 15:52 Patient left the ED. la1 Signatures: Raúl Marte, RN RN Gregor Thompson RN RN la1 Yesi Yeh tw3 Severo Stark MD MD Jossue Pemberton, RN RN Janeth Ortez lt1
--- NOTE | 2019-03-24 15:29 | EDPHYS ---
Physician Documentation [facility] Name: Benji Villalpando Age: 63 yrs Sex: Male : 1955 Arrival Date: 03/24/2019 Time: 13:34 Bed 26 Private MD: ED Physician Severo Stark HPI: 03/24 18:37 This 63 yrs old Male presents to ER via Ambulatory with complaints of Low gs Blood Sugar. 18:37 Onset: The symptoms/episode began/occurred today. Associated signs and symptoms: gs Pertinent negatives: decreased urine output, diaphoresis, diarrhea. Current symptoms: In the emergency department the patient's symptoms have resolved. The patient has experienced similar episodes in the past, a few times. Historical: - Allergies: 13:52 No Known Allergies; sg - Home Meds: 14:15 aspirin 81 mg Oral chew 1 tab once daily [Active]; Tradjenta 5 mg oral tab 1 tab once la1 daily [Active]; cetirizine 10 mg oral tab 1 tab once daily [Active]; clopidogrel 75 mg oral tab 1 tab once daily [Active]; atorvastatin 40 mg Oral tab 1 tab once daily [Active]; ranolazine oral 1000mg oral 1 tab 2 times per day [Active]; levothyroxine 88 mcg tab 1 tab once daily [Active]; Entresto 24-26 mg oral tab 1 tab twice a day [Active]; metoprolol tartrate 50 mg Oral tab 1 tab once daily [Active]; trazodone 50 mg Oral tab 1 tab nightly [Active]; furosemide 20 mg Oral tab 1 tab once daily [Active]; spironolactone 25 mg Oral tab 1 tab once daily [Active]; Insulin Glargine 20 units Sub-Q nightly [Active]; - PMHx: 13:52 Anemia; Diabetes - IDDM; Hypertension; kidney failure stage 3; Myocardial infarction; sg - Immunization history:: Adult Immunizations not up to date. - Social history:: Smoking status: Patient/guardian denies using tobacco. - Ebola Screening: : Patient negative for fever greater than or equal to 101.5 degrees Fahrenheit, and additional compatible Ebola Virus Disease symptoms Patient denies exposure to infectious person Patient denies travel to an Ebola-affected area in the 21 days before illness onset No symptoms or risks identified at this time. ROS: 18:37 All other systems are negative. gs Exam: 18:37 Head/Face: Normocephalic, atraumatic. Eyes: Pupils equal round and reactive to light, gs extra-ocular motions intact. Lids and lashes normal. Conjunctiva and sclera are non-icteric and not injected. Cornea within normal limits. Periorbital areas with no swelling, redness, or edema. ENT: Nares patent. No nasal discharge, no septal abnormalities noted. Tympanic membranes are normal and external auditory canals are clear. Oropharynx with no redness, swelling, or masses, exudates, or evidence of obstruction, uvula midline. Mucous membranes moist. Neck: Trachea midline, no thyromegaly or masses palpated, and no cervical lymphadenopathy. Supple, full range of motion without nuchal rigidity, or vertebral point tenderness. No Meningismus. Chest/axilla: Normal chest wall appearance and motion. Nontender with no deformity. No lesions are appreciated. Cardiovascular: Regular rate and rhythm with a normal S1 and S2. No gallops, murmurs, or rubs. Normal PMI, no JVD. No pulse deficits. Respiratory: Lungs have equal breath sounds bilaterally, clear to auscultation and percussion. No rales, rhonchi or wheezes noted. No increased work of breathing, no retractions or nasal flaring. Abdomen/GI: Soft, non-tender, with normal bowel sounds. No distension or tympany. No guarding or rebound. No evidence of tenderness throughout. Back: No spinal tenderness. No costovertebral tenderness. Full range of motion. Skin: Warm, dry with normal turgor. Normal color with no rashes, no lesions, and no evidence of cellulitis. MS/ Extremity: Pulses equal, no cyanosis. Neurovascular intact. Full, normal range of motion. Neuro: Awake and alert, GCS 15, oriented to person, place, time, and situation. Cranial nerves II-XII grossly intact. Motor strength 5/5 in all extremities. Sensory grossly intact. Cerebellar exam normal. Normal gait. 18:37 Constitutional: The patient appears alert, awake. Vital Signs: 13:50 BP 139 / 90; Pulse 92; Resp 16; Temp 97.4; Pulse Ox 95% on R/A; Pain 0/10; sg 15:50 BP 135 / 85; Pulse 74; Resp 16; Pulse Ox 98% on R/A; la1 MDM: 14:17 Patient medically screened. gs 18:37 Differential diagnosis: hypoglycemic episode. Data reviewed: vital signs, nurses notes. Counseling: I had a detailed discussion with the patient and/or guardian regarding: the historical points, exam findings, and any diagnostic results supporting the discharge/admit diagnosis, the need for outpatient follow up, will half insulin. 03/24 14:08 Order name: CBC with Diff; Complete Time: 15:05 03/24 14:08 Order name: Basic Metabolic Panel; Complete Time: 15: 03/24 14:17 Order name: Diet Ada 1800 Potrer; Complete Time: 14:17 la1 03/24 15:17 Order name: Glucose, Ancillary Testing; Complete Time: 15:19 EDMS Administered Medications: No medications were administered Point of Care Testing: Blood Glucose: 13:50 Blood Glucose: 148 mg/dL; sg Ranges: Critical Glucose Levels:Adult <50 mg/dl or >400 mg/dl <40 mg/dl or >180 mg/dl Disposition: 03/24/19 15:28 Discharged to Home. Impression: Hypoglycemia, unspecified. - Condition is Stable. - Discharge Instructions: Hypoglycemia. - Medication Reconciliation Form, Thank You Letter, Antibiotic Education, Prescription Opioid Use form. - Follow up: Private Physician; When: 1 - 2 days; Reason: Re-evaluation by your physician. - Notes: take half normal insulin dose Signatures: Dispatcher [employer] EDRaúl Matos RN RN Gregor Waller RN RN la1 Severo Stark MD MD Corrections: (The following items were deleted from the chart) 15:52 15:28 03/24/2019 15:28 Discharged to Home. Impression: Hypoglycemia, unspecified. la1 Condition is Stable. Forms are Medication Reconciliation Form, Thank You Letter, Antibiotic Education, Prescription Opioid Use. Follow up: Private Physician; When: 1 - 2 days; Reason: Re-evaluation by your physician. gs
[2019-03-24 16:55] VITALS: TEMP 97.4
[2019-03-24 16:57] VITALS: BP 135/85; O2SAT 98
== END 2019-03-24 15:52 | disposition home or self-care (01) ==
LOC: ER 13:31
DX: E11.649 Type 2 diabetes mellitus with hypoglycemia without coma (principal); E11.22 Type 2 diabetes mellitus with diabetic chronic kidney disease; I12.9 Hypertensive chronic kidney disease with stage 1 through stage 4 chronic kidney disease, or unspecified chronic kidney disease; N18.3 Chronic kidney disease, stage 3 (moderate); Z79.4 Long term (current) use of insulin; Z79.82 Long term (current) use of aspirin
CPT/HCPCS: 36415; 80048; 82962; 85025; 99283

== ENCOUNTER 2019-04-08 11:15 | Inpatient (IN) | payer OTHER ==
--- OUTSIDE RECORDS SUMMARY | 2019-04-08 11:18 | XMS REPORT ---
:1955 Author Organization eClinicalWorks Care Team Providers Name Role Phone Jack Corley Provider Role Unavailable Allergies No Known Allergies Problems Problem Type Condition Code Onset Dates Condition Status Problem CKD (chronic kidney disease), stage N18.3 Active III Problem Coronary artery disease involving I25.10 Active [place] coronary artery of [place] heart, angina presence unspecified Problem Anemia, unspecified type D64.9 Active Problem Systolic congestive heart failure, I50.20 Active unspecified HF chronicity Problem Stented coronary artery Z95.5 Active Problem senior care current use of [...]
--- OUTSIDE RECORDS SUMMARY | 2019-04-08 11:18 | XMS REPORT ---
:1955 Author Organization eClinicalWorks Care Team Providers Name Role Phone Andrew Corleyh Provider Role Unavailable Allergies, Adverse Reactions, Alerts Substance Reaction Event Type N.K.D.A. 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 Active Assessment [...] Assessment Stented coronary artery Z95.5 Active Assessment [facility] current use of insulin Z79.4 Active Assessment Systolic congestive heart failure, I50.20 Active unspecified HF chronicity Assessment Anemia, unspecified type D64.9 Active Assessment Coronary artery disease involving I25.10 Active [place] coronary artery of [place] heart, angina presence unspecified Assessment Orthostatic hypotension I95.1 Active Assessment Type 2 diabetes mellitus with other E11.29 Active diabetic kidney complication Problem Systolic congestive heart failure, I50.20 Active unspecified HF chronicity Medications Medication Code Code Instructions Start End Status Dosage System Date Date Aspirin 81 [facility] 28675919736 81 MG Orally Active 1 tablet Once a day Atorvastatin [facility] 08343143050 40 MG Orally Active 1 tablet Calcium Once a day Ranexa [facility] 80202334901 1000 MG Orally Active 1 tablet Twice a day Humulin N [facility] 53931869641 100 UNIT/ML Active not Subcutaneous defined Clopidogrel [facility] 92463821187 75 MG Orally Active 1 tablet Bisulfate Once a day Entresto [facility] 81543828922 24-26 MG Orally Active 1 tablet Twice a day Results No Known Results Summary Purpose eClinicalWorks Submission
--- OUTSIDE RECORDS SUMMARY | 2019-04-08 11:18 | XMS REPORT | Clinical Summary ---
:1955 Author Organization [facility] Address [address] [place] [address] Care Team Providers Name Role Phone Unavailable [...] Not on file Results Not on fileafter 04/07/2018 Insurance Payer Benefit Plan / Group Subscriber ID Type Phone Address FABIOLA OJEDA xxxxxxxxxxx ([place]) [place] [address]
--- OUTSIDE RECORDS SUMMARY | 2019-04-08 11:18 | XMS REPORT ---
:1955 Author Organization eClinicalWorks Care Team Providers Name Role Phone Jack Corley Provider Role Unavailable Allergies No Known Allergies Problems Problem Type Condition Code Onset Dates Condition Status Problem CKD (chronic kidney disease), stage N18.3 Active III Problem Coronary artery disease involving I25.10 Active [place] coronary artery of [place] heart, angina presence unspecified Problem Anemia, unspecified type D64.9 Active Problem Systolic congestive heart failure, I50.20 Active unspecified HF chronicity Problem Stented coronary artery Z95.5 Active Problem shelter current use of 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
--- OUTSIDE RECORDS SUMMARY | 2019-04-08 11:18 | XMS REPORT ---
[...] Assessment Coronary artery disease involving I25.10 Active [place] coronary artery of [place] heart, angina presence unspecified Problem Systolic congestive heart failure, I50.20 Active unspecified HF chronicity Assessment Stented coronary artery Z95.5 Active Assessment Type 2 diabetes mellitus with E11.65 Active hyperglycemia Problem Hypothyroidism, unspecified type E03.9 Active Problem [facility] current use of insulin Z79.4 Active Problem Mixed hyperlipidemia E78.2 Active Problem Orthostatic hypotension I95.1 Active Problem Stented coronary artery Z95.5 Active Assessment Mixed hyperlipidemia E78.2 Active Assessment Hypothyroidism, unspecified type E03.9 Active Assessment [facility] current use of insulin Z79.4 Active Assessment [...] Problem Coronary artery disease involving I25.10 Active [place] coronary artery of [place] heart, angina presence unspecified Medications Medication Code Code Instructions Start End Status Dosage System Date Date Aspirin 81 [facility] 71294498242 81 MG Orally Active 1 tablet Once a day Clopidogrel [facility] 85309445960 75 MG Orally Active 1 tablet Bisulfate Once a day Basaglar ValerieikPen [facility] 73425421469 100 UNIT/ML Active inject 20 Subcutaneous units once day Ranexa [facility] 56864426174 1000 MG Active TAKE 1 TABLET BY MOUTH TWICE A DAY Atorvastatin [facility] 64201479891 40 MG Orally Active 1 tablet Calcium Once a day Synthroid [facility] 07454413109 88 MCG Orally Active 1 tablet Once a day on an empty stomach in the morning Ranexa [facility] 97253322421 1000 MG Orally Active 1 tablet Twice a day Tradjenta [facility] 09085880570 5 MG Orally Active 1 tablet Once a day Results No Known Results Summary Purpose eClinicalWorks Submission
--- OUTSIDE RECORDS SUMMARY | 2019-04-08 11:18 | XMS REPORT ---
[...] Problem Coronary artery disease involving I25.10 Active [place] coronary artery of [place] heart, angina presence unspecified Problem CKD (chronic kidney disease), stage N18.3 Active III Problem Systolic congestive heart failure, I50.20 Active unspecified HF chronicity Problem Hypothyroidism, unspecified type E03.9 Active Problem [facility] current use of insulin Z79.4 Active Problem Mixed hyperlipidemia E78.2 Active Problem Orthostatic hypotension I95.1 Active Problem Stented coronary artery Z95.5 Active Medications No Known Medications Results No Known Results Summary Purpose [employer] Player [employer] Submission
--- OUTSIDE RECORDS SUMMARY | 2019-04-08 11:18 | XMS REPORT ---
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 Assessment Anemia, unspecified type D64.9 Active Assessment Systolic congestive heart failure, I50.20 Active unspecified HF chronicity Assessment CKD (chronic kidney disease), stage N18.3 Active III Problem Anemia, unspecified type D64.9 Active Assessment History of fall Z91.81 Active Assessment Type 2 diabetes mellitus with other E11.29 Active diabetic kidney complication Problem Coronary artery disease involving I25.10 Active [place] coronary artery of [place] heart, angina presence unspecified Medications Medication Code Code Instructions Start End Status Dosage System Date Date Humulin N ND 59737087054 100 UNIT/ML Inactive not Subcutaneous defined Ranexa [facility] 18324853419 1000 MG Orally Active 1 tablet Twice a day Aspirin 81 ND 75636725025 81 MG Orally Active 1 tablet Once a day Basaglar ND 10762776692 100 UNIT/ML April 27, Active Inject 10 KwikPen Subcutaneous 2018 units once day Synthroid ND 23617842077 50 MCG Orally Active 1 tablet Once a day on an empty stomach in the morning Atorvastatin [facility] 72186310219 40 MG Orally Active 1 tablet Calcium Once a day Entresto [facility] 39212900923 24-26 MG Orally April Inactive 1 tablet Twice a day 2017 Clopidogrel [facility] 48785754694 75 MG Orally Active 1 tablet Bisulfate Once a day Tradjenta [facility] 85638092010 5 MG Orally April 27, Active 1 tablet Once a day 2017 Results No Known Results Summary Purpose eClinicalWorks Submission
--- OUTSIDE RECORDS SUMMARY | 2019-04-08 11:18 | XMS REPORT ---
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 Active Problem Mixed hyperlipidemia E78.2 Active Problem Orthostatic hypotension I95.1 Active Problem Stented coronary artery Z95.5 Active Assessment Coronary artery disease involving I25.10 Active [place] coronary artery of [place] heart, angina presence unspecified Problem Anemia, unspecified type D64.9 Active Problem Coronary artery disease involving I25.10 Active [place] coronary artery of [place] heart, angina presence unspecified Medications Medication Code System Code Instructions Start End Date Status Dosage Date Vitamin D-3 [facility] 65462947123 5000 UNIT Orally May 01, Jul 30, Active 1 tablet Once a day 2017 2017 Ranexa [facility] 30819269397 1000 MG Orally Active 1 tablet Twice a day Results No Known Results Summary Purpose eClinicalWorks Submission
--- OUTSIDE RECORDS SUMMARY | 2019-04-08 11:18 | XMS REPORT ---
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
--- OUTSIDE RECORDS SUMMARY | 2019-04-08 11:19 | XMS REPORT ---
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 Problem Mixed hyperlipidemia E78.2 Active Problem HTN, goal below 140/90 I10 Active Problem Hypothyroidism, unspecified type E03.9 Active Assessment Mixed hyperlipidemia E78.2 Active Assessment Anemia, unspecified type D64.9 Active Problem Acute on chronic systolic congestive I50.23 Active heart failure Assessment shelter current use of insulin Z79.4 [...] Problem Coronary artery disease involving I25.10 Active [place] coronary artery of [place] heart, angina presence unspecified Assessment Acute on chronic systolic congestive I50.23 Active heart failure Medications Medication Code Code Instructions Start End Status Dosage System Date Date Tradjenta [facility] 72505036344 5 MG Orally Active 1 tablet Once a day Aspirin 81 [facility] 58227850920 81 MG Orally Active 1 tablet Once a day Ranexa [facility] 79775338319 1000 MG Active TAKE 1 TABLET BY MOUTH TWICE A DAY Synthroid [facility] 31847236011 88 MCG Orally Active 1 tablet Once a day on an empty stomach in the morning Ranexa [facility] 00339889774 1000 MG Orally Active 1 tablet Twice a day Spironolactone [facility] 92382194744 25 MG Orally Active 1 tablet Entresto 24/26mg [facility] 17268318032 24/26mg oral [place] Active one bid 2018 Atorvastatin [facility] 99421956156 40 MG Orally Active 1 tablet Calcium Once a day Metoprolol [facility] 65109147652 25 MG Orally Active 1 tablet Tartrate Twice a day with food Furosemide [facility] 03679445740 20 MG Orally Active 1 tablet Once a day Cetirizine HCl [facility] 16484345148 10 MG Orally Active 1 tablet Once a day Trazodone HCl [facility] 72695436171 50 MG Orally Active 1 tablet Once a day at bedtime as needed Clopidogrel [facility] 64524612030 75 MG Orally Active 1 tablet Bisulfate Once a day Basaglar KwikPen [facility] 81121911711 100 UNIT/ML Active inject 20 Subcutaneous units once day Results No Known Results Summary Purpose eClinicalWorks Submission
--- OUTSIDE RECORDS SUMMARY | 2019-04-08 11:19 | XMS REPORT ---
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
--- OUTSIDE RECORDS SUMMARY | 2019-04-08 11:19 | XMS REPORT ---
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 Problem Mixed hyperlipidemia E78.2 Active Problem Orthostatic hypotension I95.1 Active Problem Stented coronary artery Z95.5 Active Assessment Mixed hyperlipidemia E78.2 Active Assessment Hypothyroidism, unspecified type E03.9 Active Assessment 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 Assessment [...] Problem Coronary artery disease involving I25.10 Active [place] coronary artery of [place] heart, angina presence unspecified Medications Medication Code Code Instructions Start End Status Dosage System Date Date Tradjenta [facility] 79783082231 5 MG Orally Active 1 tablet Once a day Synthroid [facility] 34052650871 88 MCG Orally Active 1 tablet Once a day on an empty stomach in the morning Ranexa [facility] 61400904379 1000 MG Active TAKE 1 TABLET BY MOUTH TWICE A DAY Basaglrocco Jules [facility] 96546683754 100 UNIT/ML Active inject 20 Subcutaneous units once day Clopidogrel [facility] 23631438192 75 MG Orally Active 1 tablet Bisulfate Once a day Ranexa [facility] 44607470760 1000 MG Orally Active 1 tablet Twice a day Entresto 24/26mg [facility] 06578866878 24/26mg oral JanuaryMarch 25, Active one bid 2018 Atorvastatin [facility] 76658095286 40 MG Orally Active 1 tablet Calcium Once a day Aspirin 81 [facility] 09700662148 81 MG Orally Active 1 tablet Once a day Results Name Result Date Reference Range Unit Abnormality Flag HEMOGLOBIN A1C ----A1C 7.3 [id number] Summary Purpose eClinicalWorks Submission
[2019-04-08 12:00] LABS: Protime INR 1.13
[2019-04-08 12:02] LABS: Absolute Lymphocytes (CBC) 0.7 K/uL (0.7-4.9); Absolute Monocytes 0.6 K/uL (0.1-1.3); Absolute Neutrophil 4.6 K/uL (1.8-8.0); Basophils % 0.8 % (0-1.3); Eosinophils % 0.6 % (0-4.4); Hematocrit 33.4 % (39.6-49.0); Lymphocytes % 11.1 % (15.3-44.8); Monocytes % 10.5 % (3.3-12.3); RBC Red Blood Cell Count 3.96 M/uL (4.33-5.43)
[2019-04-08] MEDS ORDERED: FUROSEMIDE 100 MG/10 ML VIAL IV ONE (12:11)
[2019-04-08] MEDS ORDERED: ONDANSETRON 4 MG/2 ML VIAL ONE (12:12)
--- NOTE | 2019-04-08 12:47 | ER ---
Nurse's Notes [facility] Name: Benji Villalpando Age: 63 yrs Sex: Male : 1955 Arrival Date: 04/08/2019 Time: 11:16 Bed 2 Private MD: Diagnosis: Dyspnea;Type 1 diabetes mellitus;Systolic (congestive) heart failure;Unspecified kidney failure;Anemia, unspecified;Pleural effusion in conditions classified elsewhere;Hyperkalemia;Non-ST elevation (NSTEMI) myocardial infarction;Retention of urine, unspecified-PVR 700 CC;Retention of urine Presentation: 04/08 11:29 Presenting complaint: Child states: EDEMA, FATIGUE AND VOMITING. Transition of care: bp patient was not received from another setting of care. Onset of symptoms is unknown. Risk Assessment: Do you want to hurt yourself or someone else? Patient reports no desire to harm self or others. Initial Sepsis Screen: Does the patient meet any 2 criteria? No. Patient's initial sepsis screen is negative. Does the patient have a suspected source of infection? No. Patient's initial sepsis screen is negative. Care prior to arrival: None. 11:29 Method Of Arrival: Wheelchair bp 11:29 Acuity: MILADYS 3 bp Historical: - Allergies: 11:30 No Known Allergies; bp - Home Meds: 12:07 ranolazine 1000mg Oral 1 tab 2 times per day [Active]; aspirin 81 mg Oral TbEC 1 tab sv once daily [Active]; trazodone 50 mg Oral tab 1 tab nightly [Active]; levothyroxine 88 mcg tab 1 tab once daily [Active]; furosemide 20 mg Oral tab 1 tab once daily [Active]; Tradjenta 5 mg Oral tab 1 tab once daily [Active]; clopidogrel 75 mg Oral tab 1 tab once daily [Active]; atorvastatin 40 mg Oral tab 1 tab once daily [Active]; cetirizine 10 mg Oral tab 1 tab once daily [Active]; metoprolol tartrate 50 mg Oral tab 1 tab 2 times per day [Active]; spironolactone 25 mg Oral tab 1 tab once daily [Active]; Entresto 24-26 mg Oral tab 1 tab twice a day [Active]; Insulin Glargine 20 units Sub-Q nightly [Active]; - PMHx: 11:30 Anemia; Diabetes - IDDM; Hypertension; kidney failure stage 3; Myocardial infarction; bp CHF; - Immunization history:: Adult Immunizations up to date. - Social history:: Smoking status: unknown. - Ebola Screening: : No symptoms or risks identified at this time. Screenin:35 Abuse screen: Denies threats or abuse. Denies injuries from another. Nutritional sv screening: No deficits noted. Tuberculosis screening: No symptoms or risk factors identified. Fall Risk None identified. Assessment: 11:35 General: Appears in no apparent distress. uncomfortable, well groomed, well developed, sv Behavior is calm, cooperative, appropriate for age. Pain: Denies pain. Neuro: Level of Consciousness is awake, alert, obeys commands, Oriented to person, place, time, situation, Moves all extremities. Full function Speech is normal. Cardiovascular: Heart tones S1 S2 present Patient's skin is warm and dry. Pulses are 3+ in right brachial artery and left brachial artery Rhythm is sinus rhythm. Respiratory: Airway is patent Respiratory effort is even, unlabored, Respiratory pattern is regular, symmetrical, Breath sounds are diminished bilaterally. GI: Abdomen is distended, Reports nausea, vomiting. Derm: Skin is normal. 12:00 Reassessment: Patient appears in no apparent distress at this time. No changes from sv previously documented assessment. Patient and/or family updated on plan of care and expected duration. Pain level reassessed. Patient is alert, oriented x 3, equal unlabored respirations, skin warm/dry/pink. 13:45 Reassessment: Dr Randhawa at the bedside. sv 14:10 Reassessment: Patient appears in no apparent distress at this time. No changes from sv previously documented assessment. Patient and/or family updated on plan of care and expected duration. Pain level reassessed. Patient is alert, oriented x 3, equal unlabored respirations, skin warm/dry/pink. 14:21 Reassessment: Dr Belle at the bedside. sv 14:27 Reassessment: Patient appears in no apparent distress at this time. No changes from sv previously documented assessment. Patient and/or family updated on plan of care and expected duration. Pain level reassessed. Patient is alert, oriented x 3, equal unlabored respirations, skin warm/dry/pink. 15:20 Reassessment: Ultrasound at the bedside. sv Vital Signs: 11:30 BP 129 / 84; Pulse 69; Resp 16; Temp 97.9; Pulse Ox 100% ; Weight 86.18 kg; Height 5 bp ft. 4 in. (162.56 cm); 11:35 Pulse Ox 81% on R/A; sv 12:08 BP 134 / 98; Pulse 69; Resp 18; Pulse Ox 100% on 2 lpm NC; sv 13:07 BP 134 / 87; Pulse 68; Resp 14; Pulse Ox 100% on 2 lpm NC; sv 14:50 BP 145 / 89; Pulse 74; Resp 20; Pulse Ox 100% on 2 lpm NC; sv 11:30 Body Mass Index 32.61 (86.18 kg, 162.56 cm) bp 11:35 Pt placed on O2 \T\ 3L per NC. O2 sat up to 100%. sv ED Course: 11:16 Patient arrived in ED. tw3 11:29 Triage completed. bp 11:30 Arm band placed on. bp 11:32 Lila Bustos RN is Primary Nurse. sv 11:35 Geovanny Kimball MD is Attending Physician. elzbieta 11:35 Patient has correct armband on for positive identification. Bed in low position. Call sv light in reach. Side rails up X 1. Adult w/ patient. bus driver/monitor on. Pulse ox on. NIBP on. Door closed. Head of bed elevated. 11:40 Initial lab(s) drawn, by nv, sent to lab. Inserted saline lock: 20 gauge in left sv antecubital area, using aseptic technique. Blood collected. Flushed left antecubital with 5 ml normal saline. 12:45 Juan F Belle MD is Hospitalizing Provider. elzbieta 13:05 XRAY Chest (1 view) In Process Unspecified. EDMS 13:54 Jimmie Og PA is PHCP. jmm 13:57 Jimmie Og PA is PHCP. jmm 14:27 Awaiting bed assignment. sv 14:40 Bladder scan completed. 631 mls. sv 14:50 [place] cath inserted, using sterile technique, 16 Fr., by grizzlyman, balloon inflated, to sv gravity drainage, urine specimen collected. returned clear yellow urine. Patient tolerated well. 15:23 Urine Dipstick--Ancillary (enter results) Sent. sv 15:27 No provider procedures requiring assistance completed. Patient admitted, IV remains in sv place. intact. Administered Medications: 12:00 Drug: Zofran 4 mg Route: IVP; Site: left antecubital; sv 12:30 Follow up: Response: No adverse reaction sv 12:02 Drug: Lasix 60 mg Route: IVP; Site: left antecubital; sv 12:30 Follow up: Response: No adverse reaction sv 14:12 Drug: Albuterol 2.5 mg Route: Inhalation; sv 14:12 Drug: Albuterol 2.5 mg Route: Inhalation; sv 14:12 Drug: Albuterol 2.5 mg Route: Inhalation; sv 14:12 Drug: Insulin Regular Human 5 units {Co-Signature: sv (Lila Bustos RN).} Route: ss IVP; Site: left antecubital; 15:00 Follow up: Response: No adverse reaction sv 14:12 Drug: Lasix 40 mg Route: IVP; Site: left antecubital; sv 14:29 Follow up: Response: No adverse reaction sv 14:12 Drug: D50W 50 ml Route: IVP; Site: left antecubital; sv 14:29 Follow up: Response: No adverse reaction sv 14:13 CANCELLED (Duplicate Order): Albuterol - atroVENT (3:1) (2.5 mg - 0.5 mg) 3 ml elzbieta Nebulizer once 14:48 Drug: Calcium Gluconate 1 grams Route: IVPB; Infused Over: 60 mins; Site: left sv antecubital; 15:24 Follow up: Response: No adverse reaction; IV Status: Infusion continued upon admission sv 15:02 Drug: Kayexalate 45 grams Route: PO; sv 15:23 Follow up: Response: No adverse reaction sv 15:23 Drug: Aspirin 81 mg Route: PO; sv 15:25 Follow up: Response: Medication administered at discharge. sv 15:23 Drug: PlaVIX 75 mg Route: PO; sv 15:24 Follow up: Response: Medication administered at discharge. sv Point of Care Testing: Blood Glucose: 11:48 Blood Glucose: 244 mg/dL; sv Ranges: Output: 15:04 Urine: 1450ml ([place]); Total: 1450ml. sv Outcome: 12:47 Decision to Hospitalize by Provider. elzbieta 15:[address] [facility] accompanied by tech, family with patient, via stretcher, room 416, sv with oxygen, with chart, Report called to Sumeet INIGUEZ 15:10 Condition: stable 15:10 Instructed on the need for admit. 15:45 Patient left the ED. sv Signatures: Dispatcher [employer] Lila Nelson, HIRA INIGUEZ sv Geovanny Kimball MD MD cha Mickail, Joel, PA PA jmm Smirch, Shelby, HIRA RN Rao, Yesi tw3 Luiz Crockett RN RN Lila candelaria
--- NOTE | 2019-04-08 12:47 | EDPHYS ---
Physician Documentation [facility] Name: Benji Villalpando Age: 63 yrs Sex: Male : 1955 Arrival Date: 04/08/2019 Time: 11:16 Bed 2 Private MD: ED Physician Geovanny Kimball HPI: 04/08 12:00 This 63 yrs old Male presents to ER via Wheelchair with complaints of CHF, elzbieta Vomiting, Altered Mental Status. 12:00 The patient presents to the emergency department with nausea. Onset: The elzbieta symptoms/episode began/occurred 1 day(s) ago. Possible causes: unknown. The symptoms are aggravated by nothing. The symptoms are alleviated by nothing. Severity of symptoms: At their worst the symptoms were mild moderate in the emergency department the symptoms are unchanged. Historical: - Allergies: 11:30 No Known Allergies; bp - Home Meds: 12:07 ranolazine 1000mg Oral 1 tab 2 times per day [Active]; aspirin 81 mg Oral TbEC 1 tab sv once daily [Active]; trazodone 50 mg Oral tab 1 tab nightly [Active]; levothyroxine 88 mcg tab 1 tab once daily [Active]; furosemide 20 mg Oral tab 1 tab once daily [Active]; Tradjenta 5 mg Oral tab 1 tab once daily [Active]; clopidogrel 75 mg Oral tab 1 tab once daily [Active]; atorvastatin 40 mg Oral tab 1 tab once daily [Active]; cetirizine 10 mg Oral tab 1 tab once daily [Active]; metoprolol tartrate 50 mg Oral tab 1 tab 2 times per day [Active]; spironolactone 25 mg Oral tab 1 tab once daily [Active]; Entresto 24-26 mg Oral tab 1 tab twice a day [Active]; Insulin Glargine 20 units Sub-Q nightly [Active]; - PMHx: 11:30 Anemia; Diabetes - IDDM; Hypertension; kidney failure stage 3; Myocardial infarction; bp CHF; - Immunization history:: Adult Immunizations up to date. - Social history:: Smoking status: unknown. - Ebola Screening: : No symptoms or risks identified at this time. ROS: 12:06 Constitutional: Negative for fever, chills, and weight loss, Eyes: Negative for injury, elzbieta pain, redness, and discharge, ENT: Negative for injury, pain, and discharge, Neck: Negative for injury, pain, and swelling, Cardiovascular: Negative for chest pain, palpitations, and edema, Back: Negative for injury and pain, : Negative for injury, bleeding, discharge, and swelling, MS/Extremity: Negative for injury and deformity, Skin: Negative for injury, rash, and discoloration, Neuro: Negative for headache, weakness, numbness, tingling, and seizure, Psych: Negative for depression, anxiety, suicide ideation, homicidal ideation, and hallucinations, Allergy/Immunology: Negative for hives, rash, and allergies, Endocrine: Negative for neck swelling, polydipsia, polyuria, polyphagia, and marked weight changes, Hematologic/Lymphatic: Negative for swollen nodes, abnormal bleeding, and unusual bruising. 12:06 Respiratory: Positive for cough, shortness of breath, at rest. 12:06 Abdomen/GI: Positive for nausea and vomiting. Exam: 12:06 Constitutional: This is a well developed, well nourished patient who is awake, alert, elzbieta and in no acute distress. Head/Face: Normocephalic, atraumatic. Eyes: Pupils equal round and reactive to light, extra-ocular motions intact. Lids and lashes normal. Conjunctiva and sclera are non-icteric and not injected. Cornea within normal limits. Periorbital areas with no swelling, redness, or edema. ENT: Nares patent. No nasal discharge, no septal abnormalities noted. Tympanic membranes are normal and external auditory canals are clear. Oropharynx with no redness, swelling, or masses, exudates, or evidence of obstruction, uvula midline. Mucous membranes moist. Neck: Trachea midline, no thyromegaly or masses palpated, and no cervical lymphadenopathy. Supple, full range of motion without nuchal rigidity, or vertebral point tenderness. No Meningismus. Chest/axilla: Normal chest wall appearance and motion. Nontender with no deformity. No lesions are appreciated. Cardiovascular: Regular rate and rhythm with a normal S1 and S2. No gallops, murmurs, or rubs. Normal PMI, no JVD. No pulse deficits. Abdomen/GI: Soft, non-tender, with normal bowel sounds. No distension or tympany. No guarding or rebound. No evidence of tenderness throughout. Back: No spinal tenderness. No costovertebral tenderness. Full range of motion. Male : Normal genitalia with no discharge or lesions. Skin: Warm, dry with normal turgor. Normal color with no rashes, no lesions, and no evidence of cellulitis. MS/ Extremity: Pulses equal, no cyanosis. Neurovascular intact. Full, normal range of motion. Neuro: Awake and alert, GCS 15, oriented to person, place, time, and situation. Cranial nerves II-XII grossly intact. Motor strength 5/5 in all extremities. Sensory grossly intact. Cerebellar exam normal. Normal gait. Psych: Awake, alert, with orientation to person, place and time. Behavior, mood, and affect are within normal limits. 12:06 Respiratory: the patient does not display signs of respiratory distress, Respirations: normal, Breath sounds: rales, that are mild, are located in both bases, are heard in the left posterior lower lobe, right posterior middle lobe and right posterior lower lobe, decreased breath sounds. Vital Signs: 11:30 BP 129 / 84; Pulse 69; Resp 16; Temp 97.9; Pulse Ox 100% ; Weight 86.18 kg; Height 5 bp ft. 4 in. (162.56 cm); 11:35 Pulse Ox 81% on R/A; sv 12:08 BP 134 / 98; Pulse 69; Resp 18; Pulse Ox 100% on 2 lpm NC; sv 13:07 BP 134 / 87; Pulse 68; Resp 14; Pulse Ox 100% on 2 lpm NC; sv 14:50 BP 145 / 89; Pulse 74; Resp 20; Pulse Ox 100% on 2 lpm NC; sv 11:30 Body Mass Index 32.61 (86.18 kg, 162.56 cm) bp 11:35 Pt placed on O2 \T\ 3L per NC. O2 sat up to 100%. sv MDM: 11:35 Patient medically screened. [facility] 12:08 Data reviewed: vital signs, nurses notes, lab test result(s), EKG, radiologic studies, elzbieta plain films. 04/08 11:33 Order name: Basic Metabolic Panel; Complete Time: 13:55 sv 04/08 11:33 Order name: CBC with Diff; Complete Time: 12:45 sv 04/08 11:33 Order name: LFT's; Complete Time: 13:55 sv 04/08 11:33 Order name: Magnesium; Complete Time: 13:55 sv 06/02 11:33 Order name: NT PRO-BNP; Complete Time: 13:55 sv 02 11:33 Order name: PT-INR; Complete Time: 12:45 sv /02 11:33 Order name: Troponin (emerg Dept Use Only); Complete Time: 13:55 sv 02 11:33 Order name: XRAY Chest (1 view); Complete Time: 13:49 sv 02 11:52 Order name: Glucose, Ancillary Testing; Complete Time: 12:45 EDMS 04/08 11:59 Order name: Urine Culture [facility] 04/08 12:44 Order name: TSH; Complete Time: 13:49 elzbieta 04/08 13:47 Order name: T4 Free; Complete Time: 13:49 EDMS 04/08 15:07 Order name: Urine Dipstick--Ancillary (enter results) 04/08 15:33 Order name: Urine Dipstick-Ancillary EDMS 04/08 11:33 Order name: EKG; Complete Time: 11:34 sv 04/08 11:33 Order name: Cardiac monitoring; Complete Time: 11:50 sv 02 11:33 Order name: EKG - Nurse/Tech; Complete Time: 11:50 sv 02 11:33 Order name: IV Saline Lock; Complete Time: 11:50 sv /02 14:28 Order name: Diet Renal; Complete Time: 14:29 sv 02 11:33 Order name: Labs collected and sent; Complete Time: 11:50 sv 02 11:33 Order name: O2 Per Protocol; Complete Time: 11:50 sv 02 11:33 Order name: O2 Sat Monitoring; Complete Time: 11:50 sv 02 11:59 Order name: Urine Dipstick-Ancillary (obtain specimen); Complete Time: 15:25 [facility] 04/08 14:49 Order name: Bladder Scanner; Complete Time: 14:49 sv /02 14:49 Order name: Medina; Complete Time: 14:49 sv Administered Medications: 12:00 Drug: Zofran 4 mg Route: IVP; Site: left antecubital; sv 12:30 Follow up: Response: No adverse reaction sv 12:02 Drug: Lasix 60 mg Route: IVP; Site: left antecubital; sv 12:30 Follow up: Response: No adverse reaction sv 14:12 Drug: Albuterol 2.5 mg Route: Inhalation; sv 14:12 Drug: Albuterol 2.5 mg Route: Inhalation; sv 14:12 Drug: Albuterol 2.5 mg Route: Inhalation; sv 14:12 Drug: Insulin Regular Human 5 units {Co-Signature: sv (Lila Bustos RN).} Route: ss IVP; Site: left antecubital; 15:00 Follow up: Response: No adverse reaction sv 14:12 Drug: Lasix 40 mg Route: IVP; Site: left antecubital; sv 14:29 Follow up: Response: No adverse reaction sv 14:12 Drug: D50W 50 ml Route: IVP; Site: left antecubital; sv 14:29 Follow up: Response: No adverse reaction sv 14:13 CANCELLED (Duplicate Order): Albuterol - atroVENT (3:1) (2.5 mg - 0.5 mg) 3 ml elzbieta Nebulizer once 14:48 Drug: Calcium Gluconate 1 grams Route: IVPB; Infused Over: 60 mins; Site: left sv antecubital; 15:24 Follow up: Response: No adverse reaction; IV Status: Infusion continued upon admission sv 15:02 Drug: Kayexalate 45 grams Route: PO; sv 15:23 Follow up: Response: No adverse reaction sv 15:23 Drug: Aspirin 81 mg Route: PO; sv 15:25 Follow up: Response: Medication administered at discharge. sv 15:23 Drug: PlaVIX 75 mg Route: PO; sv 15:24 Follow up: Response: Medication administered at discharge. sv Point of Care Testing: Blood Glucose: 11:48 Blood Glucose: 244 mg/dL; sv Ranges: Critical Glucose Levels:Adult <50 mg/dl or >400 mg/dl <40 mg/dl or >180 mg/dl Disposition: 04/08/19 12:47 Hospitalization ordered by Juan F Belle for Inpatient Admission. Preliminary diagnosis are Dyspnea, Type 1 diabetes mellitus, Systolic (congestive) heart failure, Unspecified kidney failure, Anemia, unspecified, Pleural effusion in conditions classified elsewhere, Hyperkalemia, Non-ST elevation (NSTEMI) myocardial infarction, Retention of urine, unspecified - PVR 700 CC, Retention of urine. - Bed requested for Telemetry/MedSurg (Inpatient). - Status is Inpatient Admission. sv - Condition is Fair. - Problem is new. - Symptoms have improved. UTI on Admission? No Signatures: Dispatcher [employer] EDMS Kate Malik Lila Pal RN RN sv Anderson, Corey, MD MD cha Mickail, Joel, PA PA jmm Smirch, Shelby, RN RN ss Luiz Crockett RN RN bp Lila candelaria Corrections: (The following items were deleted from the chart) 12:59 12:47 Hospitalization Ordered by Juan F Belle MD for Inpatient Admission. Preliminary elzbieta diagnosis is Dyspnea; Type 1 diabetes mellitus; Systolic (congestive) heart failure; Unspecified kidney failure; Anemia, unspecified. Bed requested for Telemetry/MedSurg (Inpatient). Status is Inpatient Admission. Condition is Fair. Problem is new. Symptoms have improved. UTI on Admission? No. elzbieta 14:13 14:11 Albuterol - atroVENT (3:1) (2.5 mg - 0.5 mg) 3 ml Nebulizer once ordered. elzbieta ruff 14:13 12:59 04/08/2019 12:47 Hospitalization Ordered by Juan F Belle MD for Inpatient elzbieta Admission. Preliminary diagnosis is Dyspnea; Type 1 diabetes mellitus; Systolic (congestive) heart failure; Unspecified kidney failure; Anemia, unspecified; Pleural effusion in conditions classified elsewhere. Bed requested for Telemetry/MedSurg (Inpatient). Status is Inpatient Admission. Condition is Fair. Problem is new. Symptoms have improved. UTI on Admission? No. elzbieta 14:23 14:13 04/08/2019 12:47 Hospitalization Ordered by Juan F Belle MD for Inpatient bd Admission. Preliminary diagnosis is Dyspnea; Type 1 diabetes mellitus; Systolic (congestive) heart failure; Unspecified kidney failure; Anemia, unspecified; Pleural effusion in conditions classified elsewhere; Hyperkalemia. Bed requested for Telemetry/MedSurg (Inpatient). Status is Inpatient Admission. Condition is Fair. Problem is new. Symptoms have improved. UTI on Admission? No. elzbieta 15:17 14:23 04/08/2019 12:47 Hospitalization Ordered by Juan F Belle MD for Inpatient elzbieta Admission. Preliminary diagnosis is Dyspnea; Type 1 diabetes mellitus; Systolic (congestive) heart failure; Unspecified kidney failure; Anemia, unspecified; Pleural effusion in conditions classified elsewhere; Hyperkalemia. Bed requested for Telemetry/MedSurg (Inpatient). Status is Inpatient Admission. Condition is Fair. Problem is new. Symptoms have improved. UTI on Admission? No. bd 15:45 15:17 04/08/2019 12:47 Hospitalization Ordered by Juan F Belle MD for Inpatient sv Admission. Preliminary diagnosis is Dyspnea; Type 1 diabetes mellitus; Systolic (congestive) heart failure; Unspecified kidney failure; Anemia, unspecified; Pleural effusion in conditions classified elsewhere; Hyperkalemia; Non-ST elevation (NSTEMI) myocardial infarction; Retention of urine, unspecified - PVR 700 CC; Retention of urine. Bed requested for Telemetry/MedSurg (Inpatient). Status is Inpatient Admission. Condition is Fair. Problem is new. Symptoms have improved. UTI on Admission? No. elzbieta
[2019-04-08 13:32] LABS: Thyroid Stimulating Hormone 5.62 uIU/mL (0.360-3.740)
--- NOTE | 2019-04-08 13:44 | RAD REPORT ---
EXAM DESCRIPTION: [place] Single View04/08/2019 1:04 pm CLINICAL HISTORY: Hypertension COMPARISON: February 2019 FINDINGS: The lungs appear clear of acute infiltrate. The heart is mildly to moderately enlarged Blunting right lateral costophrenic sulcus may indicate a small pleural effusion
[2019-04-08 13:51] LABS: ALT/SGPT 25 U/L (12-78); AST/SGOT 35 U/L (15-37); Albumin 3.3 g/dL (3.4-5.0); Alkaline Phosphatase 110 U/L (45-117); BUN Blood Urea Nitrogen 33 mg/dL (7-18); Bicarbonate 24 mmol/L (21-32); Bilirubin Direct 0.2 mg/dL (0-0.2); Bilirubin Total 0.6 mg/dL (0.2-1.0); Glucose Level 212 mg/dL (74-106); Magnesium 3.2 mg/dL (1.8-2.4); NT PRO-BNP > 35000 pg/mL (<125); Protein, Total 6.7 g/dL (6.4-8.2); Sodium Level 131 mmol/L (136-145)
[2019-04-08] MEDS ORDERED: INSULIN -REGULAR HUMAN 50 UNIT/0.5 ML ML ONE ×2 (14:17→14:18)
[2019-04-08] MEDS ORDERED: ALBUTEROL 2.5 MG/3 ML NEB SOL ONE (14:17)
[2019-04-08] MEDS ORDERED: FUROSEMIDE 40 MG/4 ML VIAL ONE (14:17)
[2019-04-08] MEDS ORDERED: D50W 25 GM/50 ML SYRINGE IV ONE (14:17)
[2019-04-08] MEDS ORDERED: SOD POLYSTYREN SUL 15 GM/60 ML UCUP ONE (14:32)
[2019-04-08] MEDS ORDERED: CALCIUM GLUCONATE 1gm/100 ML NS (4.65 mEq/100mL) IV ONE ×2 (15:00)
[2019-04-08] MEDS ORDERED: ONDANSETRON 4 MG/2 ML VIAL IV PRN (15:04)
[2019-04-08] MEDS ORDERED: ASPIRIN EC 81 MG TAB PO ONE (15:30)
[2019-04-08] MEDS ORDERED: CLOPIDOGREL 75 MG TABLET ONE (15:30)
[2019-04-08 15:31] LABS: Urine Blood TRACE (NEG); Urine Glucose TRACE (NEG); Urine Protein 3+ (NEG)
[2019-04-08] MEDS ORDERED: ALBUTEROL 2.5 MG/3 ML NEB SOL NEB PRN (15:38)
[2019-04-08] MEDS ORDERED: IPRATROPIUM BROM 0.5MG/2.5ML NEB PRN (15:38)
[2019-04-08] MEDS ORDERED: D50W 25 GM/50 ML SYRINGE IV PRN (15:39)
[2019-04-08] MEDS ORDERED: GLUCAGON 1 MG/VIAL IM PRN (15:39)
--- NOTE | 2019-04-08 16:00 | RAD REPORT ---
EXAM DESCRIPTION: US - Renal Ultrasound-Complete - 04/08/2019 3:39 pm CLINICAL HISTORY: Acute renal insufficiency COMPARISON: None. FINDINGS: The right kidney measures 11 cm with an increased echotexture. The left kidney measures 10 cm with an increased echotexture. Hydronephrosis is not seen. Bladder decompressed secondary to a Medina catheter in place IMPRESSION: Mildly increased renal echotexture consistent with parenchymal disease
[2019-04-08] MEDS: INSULIN -REGULAR HUMAN 50 UNIT/0.5 ML ML SQ SCH ×2 (16:30→21:07)
[2019-04-08] MEDS: FUROSEMIDE 40 MG/4 ML VIAL IV SCH (16:47)
[2019-04-08] MEDS: ENOXAPARIN 100 MG/ML SYR SQ SCH (16:48)
[2019-04-08 16:52] LABS: Urine Appearance CLEAR; Urine Bilirubin NEGATIVE (NEG); Urine Blood 2+ (NEG); Urine Color YELLOW; Urine Glucose NEGATIVE (NEG); Urine Protein 1+ (NEG); Urine Specific Gravity <=1.005 (1.005-1.030); Urine Urobilinogen 0.2 mg/dL (0.2-1.0); Urine pH 6.5 (5.0-7.0)
[2019-04-08 17:22] LABS: UR CREAT < 13.0 mg/dL (20-370); UR PROTEIN 52 mg/dL (<11.9)
[2019-04-08 17:31] LABS: Urine Microscopic Reflex ORDER UMIC
[2019-04-08 17:45] LABS: Urine Bacteria NONE SEEN /HPF (NONE SEEN); Urine Culture Reflex Order NOT NEEDED
[2019-04-08] MEDS ORDERED: PNEUMOCOCCAL VACCINE 0.5 ML IMVAC ONE (18:00)
--- NOTE | 2019-04-08 19:23 | CON ---
Date of Consultation: 04/08/2019 Reason For Consultation: Elevated BUN and creatinine. History Of Present Illness: This is a pleasant 63-year-old gentleman, well known to me from office a nd previous admission with significant past medical history of diabetes, has diabetes for almost sinc e 1999, complicated with retinopathy and neuropathy and nephropathy, hypertension, coronary artery di sease, status post SC back in 2014, status post cardiac cath complicated with congestive heart failur e, ejection fraction of 35%, hypertension, hyperlipidemia, chronic kidney disease. Latest admission back in February. At that time, creatinine 2.4 with GFR of 26. The patient had full workup for protein uria secondary to diabetes. Negative serology. According to the patient, the patient went home. In the last couple of weeks started having more shortness of breath and increase in abdominal girth and increase in leg swelling, started developing orthopnea. According to the family, the patient is not compliant with fluid restriction and low-salt diet. On presentation, found to have over volume. Fo r that reason, we have been consulted. The patient received Lasix 60. Still has shortness of breath . Past Medical History: Includes: 1.Hypertension. 2.Hyperlipidemia. 3.Diabetes complicated with neuropathy, nephropathy, and retinopathy. 4.Chronic kidney disease. Baseline creatinine 2.4, GFR of 27. 5.Coronary artery disease complicated with congestive heart failure, ejection fraction of 20% back i n February 2019 with dilation of his chamber. Past Surgical History: Include PTCA. Social History: Denies smoking. Denies drinking. Denies drug abuse. Family History: Positive for diabetes and hypertension. Review of Systems: Head and Neck: No red eye. No ear pain. GI: Has increased abdominal girth. : No polyuria. No dysuria. No hematuria. Printer Maintainer: Not applicable. Respiratory: Shortness of breath. Cardiovascular: Has orthopnea. Has leg swelling. Endocrine: No polydipsia. Skin: No rash. Neuro: Has neuropathy. Musculoskeletal: Low back pain. Endocrine: No polydipsia. Skin: No rash. Home Medications: Include Entresto, Ranexa, metoprolol, insulin, Lasix 20 daily, aspirin, atorvastat in. Physical Examination: Vital Signs: When I saw the patient, blood pressure of 138/70, pulse of 88. Chest: Crackles bilateral. Heart: S1, S2. Systolic murmur. Abdomen: Ascites. Extremities: +2 edema. Laboratory Data: WBC 5.9, H and H 10.7/33.4, platelet of 182. Chemistry is still pending. TSH 5, P TH of 94. Urinalysis; specific gravity of 1.005, proteinuric, nonnephrotic. Assessment And Plan: 1.Acute kidney injury secondary to cardiorenal, over volume. I am going to start the patient on agg ressive diuresis and we will send for the workup. We will follow up the chemistry. 2.Hypertension. We will utilize blood pressure for more diuresis. 3.Anemia of chronic kidney disease, stable. We will monitor. 4.Congestive heart failure with exacerbation as primary. We will utilize the blood pressure for mor e diuresis. Thank you Dr. Belle, for allowing us to participate in the care of your patient. VICKIE Voice ID: [id number] Report ID: [id number]
[2019-04-08] MEDS: SACUBITRIL/VALSARTAN 24/26 MG TAB PO SCH (21:08)
[2019-04-08] MEDS: METOPROLOL TAR 25 MG TAB PO SCH (21:08)
[2019-04-09 05:21] LABS: Absolute Lymphocytes (CBC) 0.3 K/uL (0.7-4.9); Absolute Monocytes 0.8 K/uL (0.1-1.3); Absolute Neutrophil 7.8 K/uL (1.8-8.0); Basophils % 0.3 % (0-1.3); Eosinophils % 0.2 % (0-4.4); Hematocrit 30.8 % (39.6-49.0); Lymphocytes % 2.9 % (15.3-44.8); MPV 8.9 fL (7.6-11.3); Monocytes % 8.7 % (3.3-12.3)
--- NOTE | 2019-04-09 06:30 | EKG ---
Test Date: 2019-04-08 Test Time: 11:40:20 Helpdesk Manager: ERNESTINA MEASUREMENT RESULTS: Intervals: Rate: 74 MS: 254 QRSD: 164 QT: 492 QTc: 546 [place]: P: 30 MS: 254 QRS: -55 T: 133 INTERPRETIVE STATEMENTS: Sinus rhythm with 1st degree AV block Left axis deviation Nonspecific intraventricular block Anterolateral infarct, age undetermined Abnormal ECG Compared to ECG 02/11/2019 09:29:18 First degree AV block now present Myocardial infarct finding still present Electronically Signed On 04-09-19 06:29:47 CDT by Pro Nowak
[2019-04-09 06:32] LABS: Albumin 3.5 g/dL (3.4-5.0); Bilirubin Total 0.7 mg/dL (0.2-1.0); Magnesium 2.7 mg/dL (1.8-2.4); Phosphorus 4.2 mg/dL (2.5-4.9); Potassium 4.4 mmol/L (3.5-5.1); Protein, Total 6.3 g/dL (6.4-8.2)
[2019-04-09] MEDS: INSULIN -REGULAR HUMAN 50 UNIT/0.5 ML ML SQ SCH ×4 (07:30→21:54)
[2019-04-09] MEDS: ENOXAPARIN 100 MG/ML SYR SQ SCH (08:47)
[2019-04-09] MEDS: SACUBITRIL/VALSARTAN 24/26 MG TAB PO SCH ×2 (08:47→20:51)
[2019-04-09] MEDS: FUROSEMIDE 40 MG/4 ML VIAL IV SCH ×2 (08:47→16:29)
[2019-04-09] MEDS: METOPROLOL TAR 25 MG TAB PO SCH ×2 (08:47→21:54)
--- NOTE | 2019-04-09 11:57 | CON ---
Chief Complaint: Shortness of breath, fluid building up. History Of Present Illness: Mr. Villalpando is a gentleman, who has end-stage heart disease. He is now do not resuscitate. 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 Most of his hospital admissions have been for volume overload. He is not having ch est pain. He has a history of an intracoronary stent in 2014. He says he has not had any other sten ts since then. Last month he indicated he had one in [place] about a year ago, so I am not sure wh ich is true. We do not have any records. His ejection fraction is in the 20% range and as he came t o the hospital, his troponins were drawn, even though he was not having chest pain. He has an elevat ed troponin, it is 1.2, the other one is 1.5. He also has an elevated internal proBNP, it is pending , but in the past has been very elevated, it is more than 35,000. The patient does not have a defibr illator and he has never had bypass surgery and the history he gives now that he has had 1 stent put that in the ramus intermedius artery in 2014. There was opportunity for other stents, but he did not show up for followup visits. Physical Examination: General: Height 5 feet 4 inches, weight 195 pounds. HEENT: Unremarkable. Lungs: His lungs sound fairly clear now. Abdomen: Soft. Extremities: No edema. Distal pulses are palpable. Medications: Patient's outpatient medications have been spironolactone, furosemide, trazodone, metop rolol, atorvastatin, Entresto, levothyroxine, ranolazine, clopidogrel, Trajenta, cetirizine, aspirin and insulin. He has underlying diabetes, hypertension, congestive heart failure, dyslipidemia, and severe coronary heart disease with his creatinine at 2.46. He is not having chest pain. I am reluctant to do a car diac cath at least until such time that we can have him seen by a high school hvac r instructor, perhaps get his creat inine to improve. Urine output improved and we could attempt a cardiac cath and see if he is a jimmy date to get another stent. The patient uses no tobacco or alcohol or illegal drugs. NARGIS/LÓPEZ Voice ID: [id number] Report ID: [id number]
--- NOTE | 2019-04-09 13:06 | P.PN ---
Subjective Date of Service: 04/09/19 Subjective: Improving Patient seen and examined chart reviewed and case discussed with RN and Dr. Nowak. Patient denies any chest pain. States breathing has gotten better. Still on supplemental oxygen. Review of Systems 10-point ROS is otherwise unremarkable Physical Examination - Vital Signs Temperature: 98.3 F Blood Pressure: 132/76 Pulse: 64 Respirations: 16 Pulse Ox (%): 98 - Physical Exam General: Alert, In no apparent distress, Oriented x3, Obese HEENT: Atraumatic, PERRLA, EOMI Neck: Supple, JVD not distended Respiratory: Diminished, Crackles/rales Cardiovascular: Regular rate/rhythm, Normal S1 S2, Edema, Abnormal pulses Gastrointestinal: Normal bowel sounds, Soft and benign, Non-distended, No tenderness Musculoskeletal: No tenderness Integumentary: No rashes Neurological: Normal speech, Normal tone, Normal affect - Studies Laboratory Data (last 24 hrs) 04/08/19 11:45: Sodium 131 L, Potassium 6.0 H*, BUN 33 H, Creatinine 2.78 H, Glucose 212 H, Magnesium 3.2 H D, Total Bilirubin 0.6, AST 35, ALT 25, Alkaline Phosphatase 110 Imagings Data: EXAM DESCRIPTION: US - Renal Ultrasound-Complete - 04/08/2019 3:39 pm CLINICAL HISTORY: Acute renal insufficiency COMPARISON: None. FINDINGS: The right kidney measures 11 cm with an increased echotexture. The left kidney measures 10 cm with an increased echotexture. Hydronephrosis is not seen. Bladder decompressed secondary to a Medina catheter in place IMPRESSION: Mildly increased renal echotexture consistent with parenchymal disease Medications List Reviewed: Yes Assessment And Plan - Current Problems (Diagnosis) (1) Congestive heart failure Onset Date: 04/11/18 Current Visit: No Status: Acute Qualifiers: Heart failure type: systolic Heart failure chronicity: acute Qualified Code(s): I50.21 - Acute systolic (congestive) heart failure (2) Acute kidney injury superimposed on CKD Current Visit: No Status: Acute (3) Myocardial infarction Onset Date: 02/28/15 Current Visit: No Status: Acute Qualifiers: Myocardial infarction type: non-ST elevation myocardial infarction Qualified Code(s): I21.4 - Non-ST elevation (NSTEMI) myocardial infarction (4) Diabetes mellitus Onset Date: 02/28/15 Current Visit: No Status: Chronic Qualifiers: Diabetes mellitus type: type 2 Diabetes mellitus buttermaker insulin use: with chcf use Diabetes mellitus complication status: with kidney complications Diabetes mellitus complication detail: with chronic kidney disease Chronic kidney disease stage: stage 3 (moderate) Qualified Code(s): E11.22 - Type 2 diabetes mellitus with diabetic chronic kidney disease; N18.3 - Chronic kidney disease, stage 3 (moderate); Z79.4 - CHCF (current) use of insulin (5) Hyperlipidemia Onset Date: 02/28/15 Current Visit: No Status: Chronic Qualifiers: Hyperlipidemia type: mixed hyperlipidemia (6) Hypertension Onset Date: 02/28/15 Current Visit: No Status: Chronic Qualifiers: Hypertension type: essential hypertension (7) Obesity (BMI 30.0-34.9) Current Visit: Yes Status: Acute - Plan Continue CHF guidelines. Monitor I&Os. Currently negative fluid balance. Daily weights. Fluid restriction. Continue chest pain guidelines Nephrology consultation patient will likely need Mucomyst prior to cardiac catheterization Continue sliding-scale insulin and monitor Accuchecks Resume medications as appropriate Monitor creatinine.
[2019-04-09] MEDS: ATORVASTATIN 40 MG TAB PO SCH (20:51)
[2019-04-09] MEDS: TRAZODONE 50 MG TABLET PO SCH (20:51)
[2019-04-09] MEDS: ACETYLCYST 6,000 MG/30 ML VIAL PO SCH (20:52)
[2019-04-09] MEDS: INSULIN GLARGINE 100 UNITS/ML SQ SCH (21:54)
--- NOTE | 2019-04-10 01:58 | CON ---
Date of Consultation: 04/09/2019 Chief Complaint: Congestive heart failure, acute on chronic kidney injury. History Of Present Illness: The patient has history of chronic kidney disease. Baseline creatinine level was ranging from 1.2 to 1.5, back in 2018 creatinine level was 2.90. The patient has history o f acute kidney injury, did not require dialysis. Back in 2019, creatinine was up to 2.25. The patie nt presented to the hospital on April 08 and creatinine was 2.78, today creatinine is 2.67. The clay ent was found to have acute on chronic kidney injury, nonoliguric, associated with hyponatremia. Sod ium level was 131 and improved today to 133. Lab work today showed sodium 133, potassium 4.4, chlori de 95. Nephrology consultation was requested for acute on chronic kidney injury. The patient came t o the hospital because of generalized weakness. He denies nonsteroidal anti-inflammatory medication and in a recent event of acute urinary tract infection, denies kidney stone. The patient was found t o have fluid overload. He has severe systolic dysfunction with ejection fraction of 20%. Review of Systems: Denies fever or chills. Physical Examination: Lungs: Few crackles at bases. Heart: S1, S2. Abdomen: Soft, benign, nontender. Extremities: Edema in both legs. Laboratory Work: Sodium 133, potassium 4.4, chloride 95, CO2 29, BUN 30, creatinine 2.67, phosphorus 4.2, calcium 7.9, magnesium 2.7, glucose 149. Impression And Plan: 1.Congestive heart failure with severe systolic dysfunction. The patient has cardiorenal syndrome a s well as hypertensive kidney disease and complicated diabetic nephropathy with proteinuria. The pat ient will continue low-sodium diet. For fluid overload and congestive heart failure, the patient nakul l have diuretic. Continue to monitor renal function and fluid balance. 2.Hypertension. Blood pressure is in acceptable control. Continue beta lisbet and Entresto. 3.Fluid overload, edema. Lasix dose was adjusted. Monitor daily electrolytes. 4.Hyponatremia secondary to cardiorenal syndrome. Continue p.o. fluid restriction and low-sodium di et. EB/MODL Voice ID: [id number] Report ID: [id number]
[2019-04-10 04:35] LABS: Absolute Lymphocytes (CBC) 0.7 K/uL (0.7-4.9); Absolute Monocytes 1.1 K/uL (0.1-1.3); Absolute Neutrophil 4.6 K/uL (1.8-8.0); Basophils % 0.2 % (0-1.3); Eosinophils % 1.7 % (0-4.4); Hematocrit 28.8 % (39.6-49.0); Lymphocytes % 11.1 % (15.3-44.8); MPV 8.9 fL (7.6-11.3); Monocytes % 17.2 % (3.3-12.3); RBC Red Blood Cell Count 3.44 M/uL (4.33-5.43)
[2019-04-10 05:27] LABS: Albumin 2.8 g/dL (3.4-5.0); Magnesium 2.6 mg/dL (1.8-2.4); Phosphorus 5.1 mg/dL (2.5-4.9); Potassium 4.1 mmol/L (3.5-5.1)
[2019-04-10] MEDS: LEVOTHYROXINE SOD 0.088 MG TAB PO SCH (06:32)
[2019-04-10] MEDS: INSULIN -REGULAR HUMAN 50 UNIT/0.5 ML ML SQ SCH ×4 (07:30→20:58)
[2019-04-10] MEDS ORDERED: CALCIUM CARBONATE CHEW 500MG TAB PO PRN (07:33)
[2019-04-10] MEDS: ENOXAPARIN 100 MG/ML SYR SQ SCH (08:54)
[2019-04-10] MEDS: FUROSEMIDE 40 MG/4 ML VIAL IV SCH ×2 (08:54→16:02)
[2019-04-10] MEDS: METOPROLOL TAR 25 MG TAB PO SCH ×2 (08:55→20:27)
[2019-04-10] MEDS: CLOPIDOGREL 75 MG TABLET PO SCH (08:55)
[2019-04-10] MEDS: ASPIRIN 81 MG CHEWABLE TABLET PO SCH (08:56)
[2019-04-10] MEDS: CETIRIZINE HCL 5 MG TABLET PO SCH (08:56)
[2019-04-10] MEDS: ACETYLCYST 6,000 MG/30 ML VIAL PO SCH ×2 (08:57→20:29)
[2019-04-10] MEDS: SPIRONOLACTONE 25 MG TABLET PO SCH (08:57)
[2019-04-10] MEDS: HOME MED 1 EA UNK (Linagliptin [Tradjenta] 1 TAB) PO SCH (09:00)
[2019-04-10] MEDS: ACETAMINOPHEN 500 MG TAB PO PRN ×2 (09:00→19:36)
[2019-04-10] MEDS: SACUBITRIL/VALSARTAN 24/26 MG TAB PO SCH ×2 (09:01→20:27)
[2019-04-10 15:14] VITALS: BMI 33.0
--- NOTE | 2019-04-10 18:53 | P.PN ---
Subjective Date of Service: 04/10/19 Patient seen and examined at bedside. No family at bedside. chart reviewed and case discussed with RN and Dr. Banerjee. Patient denies any chest pain. States breathing has gotten better. Still on supplemental oxygen. Review of Systems 10-point ROS is otherwise unremarkable Physical Examination - Vital Signs Temperature: 98 F Blood Pressure: 121/65 Pulse: 62 Respirations: 18 Pulse Ox (%): 99 - Physical Exam General: Alert, In no apparent distress, Oriented x3 HEENT: Atraumatic, PERRLA, EOMI Neck: Supple, JVD not distended Respiratory: Diminished, Crackles/rales Cardiovascular: Regular rate/rhythm, Normal S1 S2 Gastrointestinal: Normal bowel sounds, No tenderness Musculoskeletal: No tenderness Integumentary: No rashes Neurological: Normal speech, Normal tone, Normal affect Lymphatics: No axilla or inguinal lymphadenopathy - Studies Medications List Reviewed: Yes Assessment And Plan - Plan Assessment And Plan - Current Problems (Diagnosis) (1) Congestive heart failure Onset Date: 04/11/18 Current Visit: No Status: Acute Qualifiers: Heart failure type: systolic Heart failure chronicity: acute Qualified Code(s): I50.21 - Acute systolic (congestive) heart failure (2) Acute kidney injury superimposed on CKD Current Visit: No Status: Acute (3) Myocardial infarction Onset Date: 02/28/15 Current Visit: No Status: Acute Qualifiers: Myocardial infarction type: non-ST elevation myocardial infarction Qualified Code(s): I21.4 - Non-ST elevation (NSTEMI) myocardial infarction (4) Diabetes mellitus Onset Date: 02/28/15 Current Visit: No Status: Chronic Qualifiers: Diabetes mellitus type: type 2 Diabetes mellitus halfway insulin use: with intermediate frame tender use Diabetes mellitus complication status: with kidney complications Diabetes mellitus complication detail: with chronic kidney disease Chronic kidney disease stage: stage 3 (moderate) Qualified Code(s): E11.22 - Type 2 diabetes mellitus with diabetic chronic kidney disease; N18.3 - Chronic kidney disease, stage 3 (moderate); Z79.4 - alf (current) use of insulin (5) Hyperlipidemia Onset Date: 02/28/15 Current Visit: No Status: Chronic Qualifiers: Hyperlipidemia type: mixed hyperlipidemia (6) Hypertension Onset Date: 02/28/15 Current Visit: No Status: Chronic Qualifiers: Hypertension type: essential hypertension (7) Obesity (BMI 30.0-34.9) Current Visit: Yes Status: Acute - Plan Continue CHF guidelines. Monitor I&Os. Currently negative fluid balance. Daily weights. Fluid restriction. Patient will need cardiac catheterization as an outpatient once creatinine has improved. No plans for cardiac catheterization during this hospitalization, per cardiology Continue chest pain guidelines Nephrology consultation, recommendations appreciated. Continue sliding-scale insulin and monitor Accuchecks Resume medications as appropriate Monitor creatinine.
[2019-04-10] MEDS: ATORVASTATIN 40 MG TAB PO SCH (20:27)
[2019-04-10] MEDS: TRAZODONE 50 MG TABLET PO SCH (20:27)
[2019-04-10] MEDS: INSULIN GLARGINE 100 UNITS/ML SQ SCH (21:24)
--- NOTE | 2019-04-11 04:08 | PN ---
Date of Progress Note: 04/10/2019 Chief Complaint: Acute kidney injury with prerenal azotemia, cardiorenal syndrome. History Of Present Illness: The patient has history of chronic kidney disease, developed acute on ch ronic kidney injury in setting of congestive heart failure with fluid overload. The patient was foun d to have hyponatremia. Sodium level is improving gradually in response to volemia control. The pat ient was found to have dilutional hyponatremia secondary to cardiorenal syndrome. The patient has se higinio fluid overload, systolic dysfunction with ejection fraction 20%. Review of Systems: Denies fever, chills. Denies nausea, vomiting. Has shortness of breath. Physical Examination: Lungs: Few crackles at bases. Heart: S1and S2. Abdomen: Soft, benign, nontender. Extremities: Edema in both legs present. Laboratory Data: Hemoglobin 9.5, WBC is 6.5, platelet count is 180,000. Sodium 135, potassium 4.1, chloride 97, CO2 31, BUN 32, creatinine 2.83, calcium 7.5, phosphorus 5.1, magnesium 2.6. Impression/plan: 1.Acute on chronic kidney injury cardiorenal syndrome. Renal function is stabilizing. The patient will continue diuretic and low-sodium diet. Monitor electrolytes. 2.Hyponatremia secondary to congestive heart failure, is improving. 3.Hypertension. Blood pressure is controlled. 4.Acute on chronic kidney injury. Monitor fluid balance. The patient has a [place] catheter. Plan is to discontinue the [place] catheter. EB/MODL Voice ID: [id number] Report ID: [id number]
[2019-04-11 04:29] LABS: Albumin 2.8 g/dL (3.4-5.0); Magnesium 2.4 mg/dL (1.8-2.4); Phosphorus 4.6 mg/dL (2.5-4.9); Potassium 4.1 mmol/L (3.5-5.1)
[2019-04-11] MEDS: LEVOTHYROXINE SOD 0.088 MG TAB PO SCH (05:41)
[2019-04-11] MEDS: INSULIN -REGULAR HUMAN 50 UNIT/0.5 ML ML SQ SCH ×3 (07:30→16:28)
[2019-04-11 08:49] VITALS: O2SAT 100
[2019-04-11] MEDS: HOME MED 1 EA UNK (Linagliptin [Tradjenta] 1 TAB) PO SCH (09:00)
[2019-04-11] MEDS: ENOXAPARIN 100 MG/ML SYR SQ SCH (09:06)
[2019-04-11] MEDS: CETIRIZINE HCL 5 MG TABLET PO SCH (09:06)
[2019-04-11] MEDS: FUROSEMIDE 40 MG/4 ML VIAL IV SCH (09:07)
[2019-04-11] MEDS: METOPROLOL TAR 25 MG TAB PO SCH (09:08)
[2019-04-11] MEDS: CLOPIDOGREL 75 MG TABLET PO SCH (09:08)
[2019-04-11] MEDS: ASPIRIN 81 MG CHEWABLE TABLET PO SCH (09:09)
[2019-04-11] MEDS: SPIRONOLACTONE 25 MG TABLET PO SCH (09:09)
[2019-04-11] MEDS: SACUBITRIL/VALSARTAN 24/26 MG TAB PO SCH (09:09)
[2019-04-11] MEDS: ACETYLCYST 6,000 MG/30 ML VIAL PO SCH (09:21)
--- NOTE | 2019-04-11 11:07 | P.DS ---
Admission Date: 04/08/19 Discharge Date: 04/11/19 Primary Care Provider: Hallie Muñoz Disposition: ROUTINE DISCHARGE Discharge Condition: FAIR Reason for Admission: Shortness of breath Consultations: Cardiology Nephrology Brief History of Present Illness: This is a 63-year-old male with a history of congestive heart failure, systolic dysfunction, diabetes type 2, hypertension, hyperlipidemia, coronary artery disease, chronic kidney disease who was admitted for worsening shortness of breath, edema and weight gain. Patient was also complaining of decreased appetite and not feeling well generally. The patient is not compliant with his diet, and does not follow a sodium restriction. The patient's symptoms were constant, moderate progressively worsening. He was then brought into the emergency room for further evaluation. His chest x-ray did have some CHF pattern effusion. Patient was given IV Lasix and referred for admission. Hospital Course: Patient was started on the CHF guidelines, strict fluid restriction and daily weights. Cardiology and nephrology were consulted. The patient with non ST elevation SD. Per cardiology, no cardiac intervention at this time as patient without any chest pain. He will benefit foot with cardiac cath as an outpatient once his creatinine has improved. The patient was diuresed with IV Lasix. His electrolytes/labs and creatinine improved and returned to baseline. His symptoms resolved. He was then cleared for discharge by cardiology and nephrology. He otherwise remained stable throughout the stay. History room plan and diagnoses were explained to him. Compliance with medication and diet and fluid restriction was reiterated to patient. He was then discharged home in a safe and stable manner. Vital Signs/Physical Exam: Temp Pulse Resp BP Pulse Ox 97.4 F 60 20 114/64 99 04/11/19 04:00 04/11/19 09:09 04/11/19 04:00 04/11/19 09:09 04/11/19 04:00 General: Alert, In no apparent distress, Oriented x3 HEENT: Atraumatic, PERRLA, EOMI Neck: Supple, JVD not distended Respiratory: Clear to auscultation bilaterally, Normal air movement Cardiovascular: Regular rate/rhythm, Normal S1 S2 Gastrointestinal: Normal bowel sounds, No tenderness Musculoskeletal: No tenderness Integumentary: No rashes Neurological: Normal speech, Normal tone, Normal affect Lymphatics: No axilla or inguinal lymphadenopathy Laboratory Data at Discharge: WBC 6.5 K/uL (4.3-10.9) D 04/10/19 04:18 Hgb 9.5 g/dL (13.6-17.9) L 04/10/19 04:18 Hct 28.8 % (39.6-49.0) L 04/10/19 04:18 Plt Count 180 K/uL (152-406) 04/10/19 04:18 PT 13.3 SECONDS (9.5-12.5) H 04/08/19 11:45 INR 1.13 04/08/19 11:45 Sodium 134 mmol/L (136-145) L 04/11/19 03:43 Potassium 4.1 mmol/L (3.5-5.1) 04/11/19 03:43 BUN 38 mg/dL (7-18) H 04/11/19 03:43 Creatinine 2.61 mg/dL (0.55-1.3) H 04/11/19 03:43 Glucose 127 mg/dL (74-106) H 04/11/19 03:43 Phosphorus 4.6 mg/dL (2.5-4.9) 04/11/19 03:43 Magnesium 2.4 mg/dL (1.8-2.4) 04/11/19 03:43 Total Bilirubin 0.7 mg/dL (0.2-1.0) 04/09/19 05:37 AST 28 U/L (15-37) 04/09/19 05:37 ALT 27 U/L (12-78) 04/09/19 05:37 Alkaline Phosphatase 114 U/L (45-117) 04/09/19 05:37 Troponin I 0.88 ng/mL (0.0-0.045) H* 04/09/19 15:12 Home Medications: Aspirin Chewable [Aspirin Chewable*] 81 mg PO DAILY 04/08/19 Atorvastatin Calcium 1 tab PO DAILY 04/08/19 Cetirizine HCl 10 mg PO DAILY 04/08/19 Clopidogrel Bisulfate [Clopidogrel] 75 mg PO DAILY 04/08/19 Furosemide [Lasix*] 1 tab PO DAILY 04/08/19 Insulin Glargine Human [Lantus*] 20 units SQ BEDTIME 04/08/19 Levothyroxine [Synthroid*] 1 tab PO DAILY 04/08/19 Linagliptin [Tradjenta] 1 tab PO DAILY 04/08/19 Metoprolol Tartrate [Lopressor*] 1 tab PO DAILY 04/08/19 Ranolazine [Ranexa] 1,000 mg PO BID 04/08/19 Sacubitril/Valsartan [Entresto 24 mg-26 mg Tablet] 1 tab PO BID 04/08/19 Spironolactone [Aldactone*] 25 mg PO DAILY 04/08/19 Trazodone [Desyrel*] 1 tab PO BEDTIME 04/08/19 Patient Discharge Instructions: Please follow up with the primary care physician in 2-3 days. Please follow up with nephrology in 3 weeks. Please follow up with cardiology in 2 weeks. Please return to the emergency room for worsening symptoms. Diet: Renal Followup: Nigel Raymundo MD [ACTIVE - CAN ADMIT] - Jack Corley DO [Primary Care Provider] - Time spent managing pt's care (in minutes): 55
--- NOTE | 2019-04-11 11:53 | PN ---
Date of Progress Note: 04/10/2019 Mr. Villalpando is 63, was admitted with congestive heart failure, ejection fraction 20%. He has diabetes, hypertension, dyslipidemia, history of coronary artery disease. His creatinine is 2.48. Nephrology is following with him. He is doing well from a CHF standpoint. He still think he needs another hea rt catheterization done once his creatinine has improved. We will continue medical therapy. Send hi m home whenever it is okay with Dr. Delatorre. I will follow up with him as an outpatient. Follow his c reatinine as earlier stated and outpatient heart catheterization. NB/MODL Voice ID: [id number] Report ID: [id number]
[2019-04-11 16:44] VITALS: BP 113/67; TEMP 97.5
--- NOTE | 2019-04-11 16:44 | PN ---
Date of Progress Note: 04/11/2019 Subjective: The patient was admitted with congestive heart failure, anasarca. Physical Examination: Vital Signs: Blood pressure 114/64, pulse of 60. Chest: Crackles in the base. Heart: S1, S2. Systolic murmur. Abdomen: Ascites. Extremities: Trace edema. Laboratory Data: WBC 6.5, H and H 9.5/28.8, platelet 180. Sodium 134, potassium 4.1, bicarb 33, BUN 38, creatinine 2.6, GFR of 25, calcium 7.4, phosphorus 4.6, magnesium 2.6. PTH 133. Vitamin D is s till pending. PC ratio is 4. Serology is still pending. Renal ultrasound showing normal size alonzo y, 09/16. Assessment And Plan: 1.Acute kidney injury on chronic kidney disease with hyperkalemia secondary to cardiorenal, responds very well to diuresis. I am going to continue the patient on current diuresis dose and we will foll ow up the patient as outpatient. Continue on Entresto. 2.Hyperkalemia, resolved. I am going to be reluctant to use spironolactone for the time being and w e will follow up. Continue on the Lasix. 3.Congestive heart failure. Continue Entresto. Continue Lasix. We will follow up. The patient is cleared off from the renal standpoint for discharge planning to follow up in the office in 2-3 weeks with chemistry. VICKIE Voice ID: [id number] Report ID: [id number]
[2019-04-11 18:23] LABS: HBsAG Nonreactive (Nonreactive)
[2019-04-12 13:32] LABS: Hepatitis C Virus RNA (PCR)log <1.18 log IU/mL
[2019-04-14 12:58] LABS: Vitamin D 1,25-Dihydroxy Total 20 pg/mL (18-72); Vitamin D,1,25-OH2, D2 <8 pg/mL
== END 2019-04-11 17:21 | disposition home or self-care (01) | DRG 280 ==
LOC: ER 11:15 → ERHOLD 13:25 → 4TH 15:00
PROVIDERS: ADMIT Family Medicine; ATTEND Family Medicine
DX: I13.0 Hypertensive heart and chronic kidney disease with heart failure and stage 1 through stage 4 chronic kidney disease, or unspecified chronic kidney disease (principal); I50.23 Acute on chronic systolic (congestive) heart failure; I21.4 Non-ST elevation (NSTEMI) myocardial infarction; N17.9 Acute kidney failure, unspecified; E87.1 Hypo-osmolality and hyponatremia; E11.22 Type 2 diabetes mellitus with diabetic chronic kidney disease; E11.21 Type 2 diabetes mellitus with diabetic nephropathy; E11.40 Type 2 diabetes mellitus with diabetic neuropathy, unspecified; E11.319 Type 2 diabetes mellitus with unspecified diabetic retinopathy without macular edema; N18.3 Chronic kidney disease, stage 3 (moderate); Z66 Do not resuscitate; I25.10 Atherosclerotic heart disease of native coronary artery without angina pectoris; E87.5 Hyperkalemia; E78.2 Mixed hyperlipidemia; E66.9 Obesity, unspecified; Z91.11 Patient's noncompliance with dietary regimen; D63.1 Anemia in chronic kidney disease; Z68.32 Body mass index [BMI] 32.0-32.9, adult; I25.2 Old myocardial infarction; Z23 Encounter for immunization; Z79.4 Long term (current) use of insulin; Z79.82 Long term (current) use of aspirin; Z95.5 Presence of coronary angioplasty implant and graft
CPT/HCPCS: 36415; 51702; 71045; 76770; 80048; 80053; 80069; 80076; 81003; 81015; 82570; 82607; 82652; 82728; 82746; 82962; 83540; 83735; 83880; 83970; 84100; 84156; 84439; 84443; 84466; 84484; 85025; 85044; 85610; 86317; 86704; 86706; 87086; 87088; 87340; 87522; 93005; 94760; 96365; 96375; 99285; J0610; J1650; J1940; J2405

== ENCOUNTER 2019-04-30 06:51 | Day surgery (SDC) | payer OTHER ==
[2019-04-27 11:09] LABS: Absolute Lymphocytes (CBC) 0.7 K/uL (0.7-4.9); Basophils % 0.4 % (0-1.3); Eosinophils % 1.1 % (0-4.4); Hematocrit 32.2 % (39.6-49.0); Lymphocytes % 13.2 % (15.3-44.8); MPV 8.9 fL (7.6-11.3); Monocytes % 12.3 % (3.3-12.3); RBC Red Blood Cell Count 3.86 M/uL (4.33-5.43)
[2019-04-27 11:11] LABS: Protime INR 1.04
--- OUTSIDE RECORDS SUMMARY | 2019-04-30 06:54 | XMS REPORT ---
[...] Assessment Coronary artery disease involving I25.10 Active [place] coronary artery of [place] heart, angina presence unspecified Problem Systolic congestive heart failure, I50.20 Active unspecified HF chronicity Assessment Stented coronary artery Z95.5 Active Assessment Type 2 diabetes mellitus with E11.65 Active hyperglycemia Problem Hypothyroidism, unspecified type E03.9 Active Problem FPC current use of insulin Z79.4 Active Problem Mixed hyperlipidemia E78.2 Active Problem Orthostatic hypotension I95.1 Active Problem Stented coronary artery Z95.5 Active Assessment Mixed hyperlipidemia E78.2 Active Assessment Hypothyroidism, unspecified type E03.9 Active Assessment 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 [...] Problem Coronary artery disease involving I25.10 Active [place] coronary artery of [place] heart, angina presence unspecified Medications Medication Code Code Instructions Start End Status Dosage System Date Date Humulin N ND 56398443654 100 UNIT/ML Inactive not Subcutaneous defined Ranexa [facility] 14141217773 1000 MG Orally Active 1 tablet Twice a day Aspirin 81 ND 16280247576 81 MG Orally Active 1 tablet Once a day Basag[place] ND 45386097521 100 UNIT/ML April 27, Active Inject 10 KwikPen Subcutaneous 2018 units once day Synthroid ND 85184733312 50 MCG Orally Active 1 tablet Once a day on an empty stomach in the morning Atorvastatin [facility] 07742447669 40 MG Orally Active 1 tablet Calcium Once a day Entresto [facility] 88361430172 24-26 MG Orally April Inactive 1 tablet Twice a day 2017 Clopidogrel [facility] 35481757436 75 MG Orally Active 1 tablet Bisulfate Once a day Tradjenta [facility] 05033016432 5 MG Orally April 27, Active 1 tablet Once a day 2017 Results No Known Results Summary Purpose eClinicalWorks Submission
--- OUTSIDE RECORDS SUMMARY | 2019-04-30 06:54 | XMS REPORT ---
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
--- OUTSIDE RECORDS SUMMARY | 2019-04-30 06:54 | XMS REPORT | Clinical Summary ---
:1955 Author Organization [facility] Address [address] [place] [id number] Care Team Providers Name Role Phone Unavailable [...] Not on file Results Not on fileafter 04/29/2018 Insurance Payer Benefit Plan / Group Subscriber ID Type Phone Address FABIOLA OJEDA xxxxxxxxxxx ([place]) [place] [address]
--- OUTSIDE RECORDS SUMMARY | 2019-04-30 06:54 | XMS REPORT ---
:1955 Author Organization e[employer] Care Team Providers Name Role Phone Jack Corley Provider Role Unavailable Allergies No Known Allergies Problems Problem Type Condition Code Onset Dates Condition Status Problem CKD (chronic kidney disease), stage N18.3 Active III Problem Coronary artery disease involving I25.10 Active [place] coronary artery of [place] heart, angina presence unspecified Problem Anemia, unspecified type D64.9 Active Problem Systolic congestive heart failure, I50.20 Active unspecified HF chronicity Problem Stented coronary artery Z95.5 Active Problem residential current use of 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
--- OUTSIDE RECORDS SUMMARY | 2019-04-30 06:54 | XMS REPORT ---
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 Problem Mixed hyperlipidemia E78.2 Active Problem Orthostatic hypotension I95.1 Active Problem Stented coronary artery Z95.5 Active Assessment Coronary artery disease involving I25.10 Active [place] coronary artery of [place] heart, angina presence unspecified Problem Anemia, unspecified type D64.9 Active Problem Coronary artery disease involving I25.10 Active [place] coronary artery of [place] heart, angina presence unspecified Medications Medication Code System Code Instructions Start End Date Status Dosage Date Vitamin D-3 [facility][NOTE 2] 23234397396 5000 UNIT Orally May 01, Jul 30, Active 1 tablet Once a day 2017 2017 Ranexa [facility]NOTE 2] 23386829336 1000 MG Orally Active 1 tablet Twice a day Results No Known Results Summary Purpose eClinicalWorks Submission
--- OUTSIDE RECORDS SUMMARY | 2019-04-30 06:55 | XMS REPORT ---
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
--- OUTSIDE RECORDS SUMMARY | 2019-04-30 06:55 | XMS REPORT ---
[...] Assessment Coronary artery disease involving I25.10 Active [place] coronary artery of [place] heart, angina presence unspecified Problem Systolic congestive heart failure, I50.20 Active unspecified HF chronicity Assessment Stented coronary artery Z95.5 Active Assessment Type 2 diabetes mellitus with E11.65 Active hyperglycemia Problem Hypothyroidism, unspecified type E03.9 Active Problem custodial current use of insulin Z79.4 Active Problem Mixed hyperlipidemia E78.2 Active Problem Orthostatic hypotension I95.1 Active Problem Stented coronary artery Z95.5 Active Assessment Mixed hyperlipidemia E78.2 Active Assessment Hypothyroidism, unspecified type E03.9 Active Assessment custodial current use of insulin Z79.4 Active Assessment [...] Problem Coronary artery disease involving I25.10 Active [place] coronary artery of [place] heart, angina presence unspecified Medications Medication Code Code Instructions Start End Status Dosage System Date Date Aspirin 81 [facility] 92822196401 81 MG Orally Active 1 tablet Once a day Clopidogrel [facility] 25100165769 75 MG Orally Active 1 tablet Bisulfate Once a day Basaglar ValerieikPen [facility] 20638810818 100 UNIT/ML Active inject 20 Subcutaneous units once day Ranexa [facility] 51333955666 1000 MG Active TAKE 1 TABLET BY MOUTH TWICE A DAY Atorvastatin [facility] 48631363910 40 MG Orally Active 1 tablet Calcium Once a day Synthroid [facility] 79155182501 88 MCG Orally Active 1 tablet Once a day on an empty stomach in the morning Ranexa [facility] 60647036085 1000 MG Orally Active 1 tablet Twice a day Tradjenta [facility] 67842840585 5 MG Orally Active 1 tablet Once a day Results No Known Results Summary Purpose eClinicalWorks Submission
--- OUTSIDE RECORDS SUMMARY | 2019-04-30 06:55 | XMS REPORT ---
:1955 Author Organization e[employer]Works Care Team Providers Name Role Phone Jack Corley Provider Role Unavailable Allergies, Adverse Reactions, Alerts Substance Reaction Event Type N.K.D.A. Info Not Available Non Drug Allergy Problems Problem Type Condition Code Onset Dates Condition Status Assessment Non compliance w medication regimen Z91.14 Active Assessment HTN, goal below 140/90 I10 Active Assessment Proteinuria, unspecified type R80.9 Active Assessment History of fall Z91.81 Active Assessment Type 2 diabetes mellitus with E11.65 Active hyperglycemia Assessment Stented coronary artery Z95.5 Active Assessment Coronary artery disease involving I25.10 Active [place] coronary artery of [place] heart, angina presence unspecified Problem History of fall Z91.81 Active Assessment 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 Problem Mixed hyperlipidemia E78.2 Active Assessment Anemia, unspecified type D64.9 Active Problem [facility]PC current use of insulin Z79.4 Active Problem Orthostatic hypotension I95.1 Active Problem Stented coronary artery Z95.5 Active Problem Acute on chronic systolic congestive I50.23 Active heart failure Problem HTN, goal below 140/90 I10 Active Assessment CKD (chronic kidney disease), stage N18.3 Active III Assessment Hypothyroidism, unspecified type E03.9 Active Problem NSTEMI (non-ST elevated myocardial I21.4 Active infarction) Assessment Mixed hyperlipidemia E78.2 Active Problem CKD (chronic kidney disease), stage N18.3 Active III Problem Anemia, unspecified type D64.9 Active Problem Hypothyroidism, unspecified type E03.9 Active Problem Systolic congestive heart failure, I50.20 Active unspecified HF chronicity Assessment NSTEMI (non-ST elevated myocardial I21.4 Active infarction) Assessment Acute on chronic systolic congestive I50.23 Active heart failure Assessment Systolic congestive heart failure, I50.20 Active unspecified HF chronicity Assessment Type 2 diabetes mellitus with other E11.29 Active diabetic kidney complication Problem Type 2 diabetes mellitus with E11.65 Active hyperglycemia Problem Type 2 diabetes mellitus with other E11.29 Active diabetic kidney complication Problem Coronary artery disease involving I25.10 Active [place] coronary artery of [place] heart, angina presence unspecified Medications Medication Code Code Instructions Start End Status Dosage System Date Date Ranexa [facility] 40530622478 1000 MG Active TAKE 1 TABLET BY MOUTH TWICE A DAY Trazodone HCl [facility] 19642096423 50 MG Orally Active 1 tablet Once a day at bedtime as needed Tradjenta [facility] 45665982991 5 MG Orally Active 1 tablet Once a day Basaglar KwikPen [facility] 79706316332 100 UNIT/ML Active inject 20 Subcutaneous units once day Spironolactone [facility] 95203350693 25 MG Orally Active 1 tablet Furosemide [facility] 80631311733 20 MG Orally Active 1 tablet Once a day Cetirizine HCl [facility] 13386009815 10 MG Orally Active 1 tablet Once a day Atorvastatin [facility] 11215266598 40 MG Orally Active 1 tablet Calcium Once a day Ranexa [facility] 64779324620 1000 MG Orally Active 1 tablet Twice a day Synthroid [facility] 59190443675 88 MCG Orally Active 1 tablet Once a day on an empty stomach in the morning Aspirin 81 [facility] 71750950407 81 MG Orally Active 1 tablet Once a day Clopidogrel [facility] 44177699061 75 MG Orally Active 1 tablet Bisulfate Once a day Entresto 24/26mg [facility] 21454404463 24/26mg oral Active one bid Metoprolol [facility] 41529837608 25 MG Orally Active 1 tablet Tartrate Twice a day with food Results No Known Results Summary Purpose eClinicalWorks Submission
--- OUTSIDE RECORDS SUMMARY | 2019-04-30 06:55 | XMS REPORT ---
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 Problem Mixed hyperlipidemia E78.2 Active Problem Orthostatic hypotension I95.1 Active Problem Stented coronary artery Z95.5 Active Assessment Mixed hyperlipidemia E78.2 Active Assessment Hypothyroidism, unspecified type E03.9 Active Assessment 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 Active Assessment [...] Problem Coronary artery disease involving I25.10 Active redd[place] coronary artery of redding heart, angina presence unspecified Medications Medication Code Code Instructions Start End Status Dosage System Date Date Tradjenta [facility] 10335066769 5 MG Orally Active 1 tablet Once a day Synthroid [facility] 11564353118 88 MCG Orally Active 1 tablet Once a day on an empty stomach in the morning Ranexa [facility] 94459365235 1000 MG Active TAKE 1 TABLET BY MOUTH TWICE A DAY Basaglrocco Jules [facility] 41536869039 100 UNIT/ML Active inject 20 Subcutaneous units once day Clopidogrel [facility] 83420492334 75 MG Orally Active 1 tablet Bisulfate Once a day Ranexa [facility] 20177104621 1000 MG Orally Active 1 tablet Twice a day Entresto 24/26mg [facility] 50924069632 24/26mg oral JanuaryMarch 25, Active one bid [address] [facility] 45899679949 40 MG Orally Active 1 tablet Calcium Once a day Aspirin [address] [facility] 91950068238 81 MG Orally Active 1 tablet Once a day Results Name Result Date Reference Range Unit Abnormality Flag HEMOGLOBIN A1C ----A1C 7.3 20190124 Summary Purpose eClinicalWorks Submission
--- OUTSIDE RECORDS SUMMARY | 2019-04-30 06:55 | XMS REPORT ---
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 Problem Mixed hyperlipidemia E78.2 Active Problem HTN, goal below 140/90 I10 Active Problem Hypothyroidism, unspecified type E03.9 Active Assessment Mixed hyperlipidemia E78.2 Active Assessment Anemia, unspecified type D64.9 Active Problem Acute on chronic systolic congestive I50.23 Active heart failure Assessment care home current use of insulin Z79.4 [...] Problem Coronary artery disease involving I25.10 Active [place] coronary artery of [place] heart, angina presence unspecified Assessment Acute on chronic systolic congestive I50.23 Active heart failure Medications Medication Code Code Instructions Start End Status Dosage System Date Date Tradjenta [facility] 93750089044 5 MG Orally Active 1 tablet Once a day Aspirin 81 [facility] 80485196405 81 MG Orally Active 1 tablet Once a day Ranexa [facility] 29385864755 1000 MG Active TAKE 1 TABLET BY MOUTH TWICE A DAY Synthroid [facility] 92075595337 88 MCG Orally Active 1 tablet Once a day on an empty stomach in the morning Ranexa [facility] 50565862756 1000 MG Orally Active 1 tablet Twice a day Spironolactone [facility] 73502169779 25 MG Orally Active 1 tablet Entresto 24/26mg [facility] 91657362918 24/26mg oral Sulma Active one bid 2018 Atorvastatin [facility] 31777469904 40 MG Orally Active 1 tablet Calcium Once a day Metoprolol [facility] 35896456652 25 MG Orally Active 1 tablet Tartrate Twice a day with food Furosemide [facility] 14863650934 20 MG Orally Active 1 tablet Once a day Cetirizine HCl [facility] 51616405665 10 MG Orally Active 1 tablet Once a day Trazodone HCl [facility] 06501570692 50 MG Orally Active 1 tablet Once a day at bedtime as needed Clopidogrel [facility] 50390960517 75 MG Orally Active 1 tablet Bisulfate Once a day Basaglar KwikPen [facility] 78935920438 100 UNIT/ML Active inject 20 Subcutaneous units once day Results No Known Results Summary Purpose eClinicalWorks Submission
--- OUTSIDE RECORDS SUMMARY | 2019-04-30 06:55 | XMS REPORT ---
[...] Problem Coronary artery disease involving I25.10 Active [place] coronary artery of [place] heart, angina presence unspecified Problem CKD (chronic kidney disease), stage N18.3 Active III Problem Systolic congestive heart failure, I50.20 Active unspecified HF chronicity Problem Hypothyroidism, unspecified type E03.9 Active Problem long-term current use of insulin Z79.4 Active Problem Mixed hyperlipidemia E78.2 Active Problem Orthostatic hypotension I95.1 Active Problem Stented coronary artery Z95.5 Active Medications No Known Medications Results No Known Results Summary Purpose [employer] Submission
[2019-04-30] MEDS ORDERED: LIDOCAINE 1% MPF 30 ML VIAL ONE (07:20)
[2019-04-30] MEDS ORDERED: NA CHLORIDE 0.9% 500 ML ONE ×2 (07:20→07:28)
[2019-04-30] MEDS ORDERED: HEPA 1000U/500MLS 2,000 UNIT/1,000 ML BAG IV ONE (07:20)
[2019-04-30] MEDS ORDERED: FENTANYL CITR 100 MCG/2 ML ONE (08:00)
[2019-04-30] MEDS ORDERED: NITROGLYCERIN 100 MCG/ML SYR (for cath lab use only) IV ONE (08:00)
[2019-04-30] MEDS ORDERED: HEPARIN 5000 UNIT/ML 1 ML VIAL ONE (08:00)
[2019-04-30] MEDS ORDERED: ATROPINE SULF 1 MG/10 ML SYR IV ONE (08:00)
[2019-04-30] MEDS ORDERED: NICARDIPINE HCL 25 MG/10 ML IV ONE (08:00)
[2019-04-30] MEDS ORDERED: MIDAZOLAM HCL 2 MG/2 ML INJ ONE ×2 (08:00→08:36)
[2019-04-30] MEDS ORDERED: NA CHLORIDE 0.9% 0 ML ONE (08:01)
[2019-04-30] MEDS ORDERED: NITROGLYCERIN/D5W 25 MG/250 ML BTL IV ONE (08:01)
[2019-04-30] MEDS ORDERED: NITROGLYCERIN 0.4 MG/TAB SL ONE (08:36)
[2019-04-30 09:15] VITALS: TEMP 97.6
[2019-04-30 10:55] VITALS: BP 143/78; O2SAT 99
--- NOTE | 2019-04-30 12:35 | OP ---
Surgeon: Pro Nowak MD Primary Care Physician: Dr. Jack Corley Procedure: Left heart catheterization with coronary angiography. No left ventriculogram was done. We have numerous measurements of his ejection fraction and we wanted to reduce the contrast load. Procedure Findings: The patient has a 50% left main. His LAD is free of any significant stenosis. A stent is widely patent in the proximal and mid portions. He has a very large ramus intermedius jerson t has several branches. There is a stent in it that is patent, but a side branch has a significant s tenosis and there is a significant stenosis before the stent about 70% hazy. The circumflex is a justin y small vessel, multiple 70-80% lesions. None of the vessels are large enough to accept a stent or b ypass surgery. The right coronary artery is diffusely diseased, a very large side branch has a 99% s tenosis. The right coronary itself in its midportion has 70%, and there are multiple 70% lesions mor e distally in the right coronary artery. Left ventricular ejection fraction was not measured. Left ventricular end-diastolic pressure was 13. Procedure In Detail: The patient was brought to the cardiac gold leaf laborer in a fasting state, sedated wit h Versed and fentanyl. Prepared and draped in usual sterile fashion. Right radial approach was used . Right renal artery was anesthetized with 1% lidocaine. A 21-gauge needle was used to enter the ar ronda just 1 side. It was cannulated with 0.021 inch diameter guidewire. A 6-Arabic radial sheath wa s placed. We gave a radial cocktail containing nicardipine, heparin and nitroglycerin. We guided a Terumo TIG catheter into the ascending aorta using fluoroscopy and a short radius J-tip Glidewire. W e were able to cannulate the right and left arteries but inadequately. We exchanged for a Garrett cath eter. This was less successful than the TIG catheter. We exchanged for an Amplatz AL2. This angiog ac the left coronary adequately. We exchanged over exchange length J-wire for a 3DRC. This adequat joss angiogram the right coronary artery. The left ventricle pressures were measured through the init ial TIG catheter. There was no LV gram done. At the end of the procedure the final catheter was rem zafar over a J-wire. The sheath was flushed, removed and a TR band was placed with excellent hemostas is. Estimated Blood Loss: 10 cc. Laborer Syrup Machine: Aviva [place]. Complications: None. Recommendation: Our recommendation is for coronary bypass surgery. NARGIS/LÓPEZ Voice ID: [id number] Report ID: [id number]
== END 2019-04-30 11:07 | disposition home or self-care (01) ==
LOC: CCL 06:51
PROVIDERS: ATTEND Internal Medicine
DX: I25.119 Atherosclerotic heart disease of native coronary artery with unspecified angina pectoris (principal); E78.2 Mixed hyperlipidemia; I11.0 Hypertensive heart disease with heart failure; I50.20 Unspecified systolic (congestive) heart failure; E11.9 Type 2 diabetes mellitus without complications; E07.9 Disorder of thyroid, unspecified; Z79.4 Long term (current) use of insulin; Z79.82 Long term (current) use of aspirin; Z79.899 Other long term (current) drug therapy; Z95.5 Presence of coronary angioplasty implant and graft
CPT/HCPCS: 85025; 80048; 36415; 85610; 82962; 85730; 93458; C1893; J1644; J2250; J3010; J0583

== ENCOUNTER 2019-05-25 10:51 | Emergency (ER) | payer OTHER ==
--- OUTSIDE RECORDS SUMMARY | 2019-05-25 10:59 | XMS REPORT | Clinical Summary ---
:1955 Author Organization [facility] Address [address] [place] [address] Care Team Providers Name Role Phone Unavailable [...] Not on file Results Not on fileafter 05/24/2018 Insurance Payer Benefit Plan / Group Subscriber ID Type Phone Address FABIOLA OJEDA xxxxxxxxxxx ([place]) [place] [address]
--- OUTSIDE RECORDS SUMMARY | 2019-05-25 11:00 | XMS REPORT | Continuity of Care Document ---
:1955 Author Organization [employer] Care Team Providers Name Role Phone [employer] Unavailable Unavailable Problems Problem Status Onset Classification Date Comments Source Date Reported Chronic kidney Active 04/11/20 Finding 04/30/[address] [facility] disease, stage 3 [facility] [place] Congestive heart Active 04/11/20 Finding 04/30/[address] [facility] failure [facility] [place] Syncope Active 04/11/20 Finding 04/30/[address] [facility] [place] Hypotension Active 04/11/20 Finding 04/30/[address] [facility] [place] Diabetes mellitus Active 02/29/20 Finding 04/30/[address] [facility] [place] Dyspnea Active 02/29/20 Finding 04/30/[address] [facility] [place] Hyperlipidemia Active 02/29/20 Finding 04/30/[address] [facility] [facility] [place] Myocardial Active 02/29/20 Finding 04/30/[address] [facility] infarction [facility] [place] Chest pain Active 02/29/20 Finding 04/30/[address] [facility] [place] Hypertension Active 02/29/20 Finding 04/30/[address] [facility] [place] Pneumonia Active 02/29/20 Finding 04/30/[address] [facility] [place] Obesity Active Finding 04/30/[address] [facility] [facility] [place] Acute kidney Active Finding 04/30/[address] [facility] injury [facility] on [place] CKD UTI due to Active Finding 04/30/[address] [facility] extended-spectrum [facility] beta lactamase [place] producing Escherichia coli Medications Medication Details Route Status Patient Ordering Order Source Instructions Provider Date Spironolactone DAILY ORAL Active [facility] [place] Aspirin Chewable DAILY ORAL [facility] [place] Atorvastatin DAILY ORAL Active 06/02/[address] [facility] Calcium 019 [facility] [place] Cetirizine Hcl DAILY ORAL Active [facility] [place] Clopidogrel DAILY ORAL Active [facility] Bisulfate [facility] [place] Trazodone AT ORAL Active [facility] BEDTIME 019 [facility] [place] Sacubitril/Valsar TWICE ORAL Active [facility] chav[facility]ria DAILY 019 [facility] [place] Insulin Glargine AT SUB-Q Active [facility] Human BEDTIME 019 [facility] [place] Furosemide DAILY ORAL Active [facility] [place] Levothyroxine DAILY ORAL Active [facility] [place] Linagliptin DAILY ORAL Active [facility] [place] Metoprolol DAILY ORAL Active [facility] St[facility] Tartrate 019 [facility] [place] Ranolazine TWICE ORAL Active [facility] DAILY 019 [facility] [place] Linagliptin DAILY ORAL Active [facility] [place] Cholecalciferol DAILY ORAL Active [place] [facility] St[facility] (Vitamin D3) 018 [facility] [place] Levothyroxine DAILY AT ORAL Active [place] [facility]600 018 [facility] [place] Aspirin Chewable DAILY ORAL Active [facility] [place] Sacubitril/Valsar TWICE ORAL Active [facility] DAILY 018 [facility] [place] Atorvastatin AT ORAL Active [facility] St[facility] Calcium BEDTIME 018 [facility] [place] Nph, Human TWICE SUB-Q Active [facility] St[facility] Insulin Isophane DAILY 018 [facility] WITH [place] MEALS Clopidogrel DAILY ORAL Active [facility] St[facility] Bisulfate 018 [facility] [place] Ranolazine TWICE ORAL Active [facility] DAILY [facility]18 [facility] [place] Aspirin DAILY ORAL Inactive [facility] [place] Allergies, Adverse Reactions, Alerts Substance Category Reaction Severity Reaction Status Date Comments Source type Reported No Known Unknown Allergy to Active [facility] Drug Substance 9 [facility] Allergies [place] Immunizations No Data Provided for This Section Results Order Name Results Value Reference Date Interpretation Comments Source Range Laboratory Bedside 199 65 - 120 04/30 [facility] Studies Glucose /2018 [facility] [place] Laboratory Prothrombin 12.3 9.5 - 12.5 04/27 [facility] Studies Time /2018 [facility] [place] Laboratory INR 1.04 04/27 [facility] Studies International /2018 [facility] Normalized [place] Ratio Laboratory Activated 32.0 24.3 - 04/27 [facility] Studies Partial 36.9 /2018 [facility] Thromboplast [place] Time Laboratory Sodium Level 138 136 - 145 04/27 [facility] Studies /2018 [facility] [place] Laboratory Potassium 5.0 3.5 - 5.1 04/27 [facility] Studies Level /2018 [facility] [place] Laboratory Glucose Level 147 74 - 106 04/27 [facility] Studies /2018 [facility] [place] Laboratory Estimat 31 90 04/27 [facility] Studies Glomerular /2018 [facility] Filtration [place] Rate Laboratory Creatinine 2.18 0.55 - 1.3 04/27 [facility] Studies /2018 [facility] [place] Laboratory Chloride 107 98 - 107 04/27 [facility] Studies Level /2018 [facility] [place] Laboratory Carbon 25 21 - 32 04/27 [facility] Studies Dioxide Level /2018 [facility] [place] Laboratory Calcium Level 8.3 8.5 - 10.1 04/27 [facility] Studies /2018 [facility] [place] Laboratory Blood Urea 35 7 - 18 04/27 [facility] Studies Nitrogen /2018 [facility] [place] Laboratory White Blood 5.3 4.3 - 10.9 04/27 [facility] Studies Count /2018 [facility] [place] Laboratory Red Cell 15.1 12.1 - 04/27 [facility] Studies Distribution 15.2 /2018 [facility] Width [place] Laboratory Red Blood 3.86 4.33 - 04/27 [facility] Studies Count 5.43 /2018 [facility] [place] Laboratory Platelet 271 152 - 406 04/27 [facility] Studies Count /2018 [facility] [place] Laboratory Neutrophils % 73.0 41.7 - 04/27 [facility] Studies 73.7 /2018 [facility] [place] Laboratory Monocytes % 12.3 3.3 - 12.3 04/[address] [facility] [address] Studies /2018 [facility] [place] Laboratory Mean Platelet 8.9 7.6 - 11.3 04/[address] [facility] [address] Studies Volume /2018 [facility] [place] Laboratory Mean 83.5 80 - 100 04/[address] [facility] [address] Studies Corpuscular /2018 [facility] Volume [place] Laboratory Mean 33.0 32.0 - 04/[address] [facility] [address] Studies Corpuscular 36.0 /2018 [facility] Hemoglobin [place] Concent Laboratory Mean 27.6 27.0 - 04/[address] [facility] [address] Studies Corpuscular 35.0 [facility] Hemoglobin [place] Laboratory Lymphocytes % 13.2 15.3 - 04/[address] [facility] [address] Studies 44.8 /2018 [facility] [place] Laboratory Hemoglobin 10.6 13.6 - 04/[address] [facility] [address] Studies 17.9 [facility] [place] Laboratory Hematocrit 32.2 39.6 - 04/[address] [facility] [address] Studies 49.0 [facility] [place] Laboratory Eosinophils % 1.1 0 - 4.4 04/[address] [facility] [address] Studies /2018 [facility] [place] Laboratory Basophils % 0.4 0 - 1.3 04/[address] [facility] [address] Studies /2018 [facility] [place] Laboratory Absolute 3.9 1.8 - 8.0 04/[address] [facility] [address] Studies Neutrophil [facility] [place] Laboratory Absolute 0.7 0.1 - 1.3 04/[address] [facility] [address] Studies Monocytes [facility] (CBC) [place] Laboratory Absolute 0.7 0.7 - 4.9 04/[address] [facility] [address] Studies Lymphocytes [facility] (CBC) [place] Laboratory Absolute 0.1 0 - 0.5 04/[address] [facility] [address] Studies Eosinophils /2018 [facility] (CBC) [place] Laboratory Absolute 0.0 0 - 0.5 04/[address] [facility] [address] Studies Basophils /2018 [facility] (CBC) [place] Laboratory Phosphorus 4.6 2.5 - 4.9 04/[address] [facility] [address] Studies Level /2018 [facility] [place] Laboratory Magnesium 2.4 1.8 - 2.4 04/[address] [facility] [address] Studies Level /2018 [facility] [place] Laboratory Albumin 2.8 3.4 - 5.0 04/11 [facility]. Studies /2019 [facility] [place] Laboratory Troponin I 0.88 0.0 - 06 [facility] Studies 0.045 /2018 [facility] [place] Laboratory Vitamin D 20 04/09 [facility]. Studies 1,25-Dihydrox /2018 [facility] y Total [place] Laboratory 1,25 20 04/09 [facility]. Studies Dihydroxy /2018 [facility] - Vitamin D3 [place] Laboratory 1,25 <8 04/09 [facility]. Studies Dihydroxy /2018 [facility] Vitamin D2 [place] Laboratory Hepatitis C <1.18 06 [facility] Studies RNA (PCR) log /2018 [facility] IUs/ml [place] Laboratory Hepatitis C <15 04/09 [facility] Studies RNA (PCR) /2018 [facility] IUs/ml [place] Laboratory Hepatitis B Hepatitis B 04/09 [facility] Studies Surface Surface /2018 [facility] - Antigen Antigen [place] Laboratory Hepatitis B Hepatitis B 04/09 [facility] Studies Surface Surface /2018 [facility] - Antibody Antibody [place] Laboratory Hepatitis B Hepatitis B 04/09 [facility] Studies Core Total Core Total /2018 [facility] - Antibody Antibody [place] Laboratory Hepatitis B <5 04/09 [facility] Studies Surface /2018 [facility] Antibody, [place] Quant Laboratory Vitamin B12 1112 193 - 986 04/09 [facility] Studies Level /2018 [facility] [place] Laboratory Transferrin % 8.9 20.0 - 04/09 [facility] Studies Saturation 50.0 [facility] [place] Laboratory Transferrin 169 200 - 360 04/09 [facility]. Studies /2018 [facility] [place] Laboratory Total Iron 237 250 - 460 04/09 [facility]. Studies Binding /2018 [facility] Capacity [place] Laboratory Total 0.7 0.2 - 1.0 04/09 [facility] Studies Bilirubin /2018 [facility] [place] Laboratory Serum Total 6.3 6.4 - 8.2 04/09 [facility]. Studies Protein /2018 [facility] [place] Laboratory Serum Folate 10.0 3.1 - 17.5 04/09 [facility]. Studies /2018 [facility] [place] Laboratory Iron Level 21.0 65 - 175 04/09 [facility]. Studies /2018 [facility] [place] Laboratory Globulin 2.8 2.3 - 3.5 04/[address] Studies /2018 [facility] [place] Laboratory Ferritin 187.0 26 - 388 04/[address] [facility] [address] Studies /2018 [facility] [place] Laboratory Aspartate 28 15 - 37 04/09 [facility]. Studies Amino Transf /2018 [facility] (AST/SGOT) [place] Laboratory Alkaline 114 45 - 117 04/09 [facility]. Studies Phosphatase /2018 [facility] [place] Laboratory Albumin/Globu 1.3 1.1 - 1.8 04/09 [facility]. Studies renetta Ratio /2018 [facility] [place] Laboratory Alanine 27 12 - 78 04/09 [facility]. Studies Aminotransfer /2018 [facility] ase [place] (ALT/SGPT) Laboratory Absolute 0.60 0.02 - 04/09 [facility]. Studies Reticulocyte 0.11 [facility] Count [place] Laboratory Percent 2.12 0.4 - 2.05 04/09 [facility]. Studies Reticulocyte /2018 [facility] Count [place] Laboratory Parathyroid 133.1 18.4 - 04/09 [facility]. Studies Hormone 80.1 [facility] (Intact) [place] Laboratory Urine WBC <5 04/[address] [facility] [address] Studies /2018 [facility] [place] Laboratory Urine <5 04/08 [facility]. Studies Squamous [facility] Epithelial [place] Cells Laboratory Urine RBC Urine RBC 04/[address] [facility] [address] Studies /2018 [facility] [place] Laboratory Urine Hyaline Urine 04/08 [facility]. Studies Casts Hyaline /2018 [facility] Casts [place] Laboratory Urine Culture Urine 04/08 [facility] Studies Reflexed Culture /2018 [facility] Reflexed [place] Laboratory Urine Urine 04/08 [facility]. Studies Bacteria Bacteria /2018 [facility] [place] Laboratory Urine pH 6.5 04/[address] [facility] [address] Studies /2018 [facility] [place] Laboratory Urine 0.2 04/08 [facility]. Studies Urobilinogen /2018 [facility] [place] Laboratory Urine Total Urine Total 04/08 [facility]. Studies Protein Protein [facility] [place] Laboratory Urine Urine 04/08 [facility]. Studies Specific Specific /2018 [facility] [place] Laboratory Urine Nitrite Urine 04/08 [facility]. Studies Nitrite /2018 [facility] [place] Laboratory Urine Urine 04/08 [facility]. Studies Leukocyte Leukocyte /2018 [facility] Esterase Esterase [place] Laboratory Urine Ketones Urine 04/08 [facility]. Studies Ketones [facility] [place] Laboratory Urine Glucose Urine 04/08 [facility]. Studies Glucose [facility] [place] Laboratory Urine Color Urine Color 04/08 [facility]. Studies [facility] [place] Laboratory Urine Blood Urine Blood 04/08 [facility]. Studies [facility] [place] Laboratory Urine Urine 04/08 [facility]. Studies Bilirubin Bilirubin [facility] [place] Laboratory Urine Urine 04/08 [facility]. Studies Appearance Appearance [facility] [place] Laboratory Urine Random 52 04/08 [facility]. Studies Total Protein [facility] [place] Laboratory Urine 4.00 04/08 [facility]. Studies Protein/Creat [facility] - inine Ratio [place] Laboratory Urine <13.0 20 - 370 04/08 [facility]. Studies Creatinine [facility] [place] Laboratory Rapid 1.50 0.0 - 04/08 [facility] Studies Troponin I 0.045 [facility] [place] Laboratory NC-Aih-U-Type >85325 04/08 [facility]. Studies Natriuretic [facility] Peptide [place] Laboratory Direct 0.2 0 - 0.2 04/08 [facility]. Studies Bilirubin [facility] [place] Laboratory Free 1.35 0.76 - 04/08 [facility]. Studies Thyroxine 1.46 [facility] [place] Laboratory Thyroid 5.620 0.360 - 04/08 [facility]. Studies Stimulating 3.740 [facility] - Hormone (TSH) [place] Laboratory Total Protein 5.2 02/[address] [facility] [address] Studies [facility] [place] Laboratory Protein Protein 02/11 [facility]. Studies Electrophores Electrophor [facility] - is M-Yonny 2 esis [place] M-Yonny 2 Laboratory Protein Protein 02/11 [facility]. Studies Electrophores Electrophor [facility] - is M-Yonny esis [place] M-Yonny Laboratory Protein Protein 02/11 [facility]. Studies Electrophores Electrophor [facility] - is Interpret esis [place] Interpret Laboratory PEP Abnormal PEP 02/11 [facility]. Studies Protein Band Abnormal [facility] - 3 Protein [place] Band 3 Laboratory Gamma 0.8 02/11 [facility]. Studies Globulins [facility] [place] Laboratory Dcahw-3-Yvcsf 0.8 02/[address] [facility] [address] Studies [facility] [place] Laboratory Wtnzo-7-Uufys 0.2 02/[address] [facility] [address] Studies [facility] [place] Laboratory Uric Acid 6.1 3.5 - 7.2 02/[address] [facility] [address] [facility] [place] Laboratory Creatine 110 39 - 308 02/[address] [facility] [address] Studies [facility] [place] Pathology Reports No Data Provided for This Section Diagnostic Reports No Data Provided for This Section Consultation Notes No Data Provided for This Section Discharge Summaries No Data Provided for This Section History and Physicals No Data Provided for This Section Vital Signs Vital Sign Value Date Comments Source Heart Rate 73 04/30/2019 [facility] Respitory Rate 16 04/30/2019 [facility] Systolic (mm Hg) 143 04/30/2019 [facility] [place] Diastolic (mm Hg) 78 04/30/2019 [facility] Temperature Oral (F) 97.6 F 04/30/2019 [facility] Height 71 04/27/2019 [facility] Weight 182 04/27/2019 [facility] Location Location Encounter Encounter Reason Attending ADM DC Status Source Details Type Number For Provider Date Date Visit [facility] Discharged [id number] 02/10 02/12 [facility] [place] [facility] Departed [id number] 03/24 03/24 [facility] [place] [facility] Discharged [id number] 04/08 04/11 [facility] 50 /2018 [facility] [place] [facility] Departed [id number] 04/30 04/30 [facility] Surgical 74 /2018 [facility] [place] [facility] [place] Procedures Procedure Code Date Perfomer Comments Source [id number] 04/08/2019 [facility] Count [id number] [facility] Chest Single [id number] 04/08/2019 [facility] [place] Chest Single [id number] 02/10/2019 [facility] [place] Assessment and Plan No Data Provided for This Section Plan of Care Plan of Care Date Source No known plan of care. 04/30/2019 [facility] - [place] No known plan of care. 04/30/2019 [facility] [place] Social History Social History Date Source Query Response Date Recorded Comment 11/07/1969 [facility] Alcohol Use? No April 08, 2019 4:28pm CD- Drugs? No April 08, 2019 4:28pm Query Response Start Date Stop Date Smoking Status Former smoker November 07, 1969 November 07, 1979 Family History Value Date Source Query Response Instance Date Recorded Comment 04/30/2019 [facility] Nurses notes 2 sisters, both from complications of diabetes Sister April 08, 2019 4:28pm Nurses notes no hx of illness Mother April 08, 2019 4:28pm Nurses notes no hx of illness April 08, 2019 4:28pm Medical History Diabetes Sister April 08, 2019 4:28pm Medical History Diabetes Father April 08, 2019 4:28pm Medical History Diabetes Mother February 10, 2019 6:18pm Medical History Diabetes February 27, 2015 7:10pm Name Suly Nichole Sister February 27, 2015 8:11am Name Ángeltonya Mother February 27, 2015 8:11am Name Rommelo Father February 27, 2015 8:11am Name Rafaelibo February 27, 2015 8:11am Advance Directives Order Name Results Value Date Source Advance Directives Advance Directives Advance Directive Response Recorded Date/Time 04/30/2019 [facility] - Does Patient Have Living Will [place] Yes April 10, 2019 6:00pm Durable Power of Associate Director Finance for Health Care Yes April 08, 2019 4:28pm Would you like additional information No April 08, 2019 4:28pm Functional Status No Data Provided for This Section
--- OUTSIDE RECORDS SUMMARY | 2019-05-25 11:01 | XMS REPORT ---
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 Problem Mixed hyperlipidemia E78.2 Active Problem HTN, goal below 140/90 I10 Active Problem Hypothyroidism, unspecified type E03.9 Active Assessment Mixed hyperlipidemia E78.2 Active Assessment Anemia, unspecified type D64.9 Active Problem Acute on chronic systolic congestive I50.23 Active heart failure Assessment senior care current use of insulin Z79.4 [...] Problem Coronary artery disease involving I25.10 Active [place] coronary artery of [place] heart, angina presence unspecified Assessment Acute on chronic systolic congestive I50.23 Active heart failure Medications Medication Code Code Instructions Start End Status Dosage System Date Date Tradjenta [facility] 19722918986 5 MG Orally Active 1 tablet Once a day Aspirin 81 [facility] 41389440451 81 MG Orally Active 1 tablet Once a day Ranexa [facility] 73278487067 1000 MG Active TAKE 1 TABLET BY MOUTH TWICE A DAY Synthroid [facility] 41940344854 88 MCG Orally Active 1 tablet Once a day on an empty stomach in the morning Ranexa [facility] 73853151672 1000 MG Orally Active 1 tablet Twice a day Spironolactone [facility] 30837285778 25 MG Orally Active 1 tablet Entresto 24/26mg [facility] 21317224857 24/26mg oral Sulma Active one bid 2018 Atorvastatin [facility] 42659532348 40 MG Orally Active 1 tablet Calcium Once a day Metoprolol [facility] 92780809007 25 MG Orally Active 1 tablet Tartrate Twice a day with food Furosemide [facility] 49238470241 20 MG Orally Active 1 tablet Once a day Cetirizine HCl [facility] 43294309851 10 MG Orally Active 1 tablet Once a day Trazodone HCl [facility] 98214363597 50 MG Orally Active 1 tablet Once a day at bedtime as needed Clopidogrel [facility] 05324822337 75 MG Orally Active 1 tablet Bisulfate Once a day Basaglar KwikPen [facility] 76995418885 100 UNIT/ML Active inject 20 Subcutaneous units once day Results No Known Results Summary Purpose eClinicalWorks Submission
--- OUTSIDE RECORDS SUMMARY | 2019-05-25 11:01 | XMS REPORT ---
[...] Assessment Coronary artery disease involving I25.10 Active [place] coronary artery of [place] heart, angina presence unspecified Problem Anemia, unspecified type D64.9 Active Problem Coronary artery disease involving I25.10 Active [place] coronary artery of [place] heart, angina presence unspecified Medications Medication Code System Code Instructions Start End Date Status Dosage Date Vitamin D-3 [facility] 65259112622 5000 UNIT Orally May 01, Jul 30, Active 1 tablet Once a day 2017 2017 Ranexa [facility] 86289583469 1000 MG Orally Active 1 tablet Twice a day Results No Known Results Summary Purpose eClinicalWorks Submission
--- OUTSIDE RECORDS SUMMARY | 2019-05-25 11:01 | XMS REPORT ---
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
--- OUTSIDE RECORDS SUMMARY | 2019-05-25 11:01 | XMS REPORT ---
[...] Problem Coronary artery disease involving I25.10 Active [place] coronary artery of [place] heart, angina presence unspecified Problem CKD (chronic kidney disease), stage N18.3 Active III Problem Systolic congestive heart failure, I50.20 Active unspecified HF chronicity Problem Hypothyroidism, unspecified type E03.9 Active Problem senior living current use of insulin Z79.4 Active Problem Mixed hyperlipidemia E78.2 Active Problem Orthostatic hypotension I95.1 Active Problem Stented coronary artery Z95.5 Active Medications No Known Medications Results No Known Results Summary Purpose [employer]64 Submission
--- OUTSIDE RECORDS SUMMARY | 2019-05-25 11:01 | XMS REPORT ---
:1955 Author Organization [employer] Care Team Providers Name Role Phone Jack Corley Provider Role Unavailable Allergies No Known Allergies Problems Problem Type Condition Code Onset Dates Condition Status Problem CKD (chronic kidney disease), stage N18.3 Active III Problem Coronary artery disease involving I25.10 Active [place] coronary artery of [place] heart, angina presence unspecified Problem Anemia, unspecified type D64.9 Active Problem Systolic congestive heart failure, I50.20 Active unspecified HF chronicity Problem Stented coronary artery Z95.5 Active Problem [facility] current use of insulin [...]
--- OUTSIDE RECORDS SUMMARY | 2019-05-25 11:01 | XMS REPORT ---
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 Problem Mixed hyperlipidemia E78.2 Active Problem Orthostatic hypotension I95.1 Active Problem Stented coronary artery Z95.5 Active Assessment Mixed hyperlipidemia E78.2 Active Assessment Hypothyroidism, unspecified type E03.9 Active 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 Assessment [...] Problem Coronary artery disease involving I25.10 Active [place] coronary artery of [place] heart, angina presence unspecified Medications Medication Code Code Instructions Start End Status Dosage System Date Date Tradjenta [facility] 91107089564 5 MG Orally Active 1 tablet Once a day Synthroid [facility] 81041291078 88 MCG Orally Active 1 tablet Once a day on an empty stomach in the morning Ranexa [facility] 73034480145 1000 MG Active TAKE 1 TABLET BY MOUTH TWICE A DAY Basaglrocco Jules [facility] 71271112119 100 UNIT/ML Active inject 20 Subcutaneous units once day Clopidogrel [facility] 26064821248 75 MG Orally Active 1 tablet Bisulfate Once a day Ranexa [facility] 98951665285 1000 MG Orally Active 1 tablet Twice a day Entresto 24/26mg [facility] 40655864376 24/26mg oral JanuaryMarch 25, Active one bid 2018 Atorvastatin [facility] 42797873457 40 MG Orally Active 1 tablet Calcium Once a day Aspirin 81 [facility] 88805568178 81 MG Orally Active 1 tablet Once a day Results Name Result Date Reference Range Unit Abnormality Flag HEMOGLOBIN A1C ----A1C 7.3 [id number] Summary Purpose eClinicalWorks Submission
--- OUTSIDE RECORDS SUMMARY | 2019-05-25 11:01 | XMS REPORT ---
[...] Assessment Coronary artery disease involving I25.10 Active [place] coronary artery of [place] heart, angina presence unspecified Problem Systolic congestive [...] Assessment Hypothyroidism, unspecified type E03.9 Active Assessment [facility] current use of insulin Z79.4 Active Assessment [...] Problem Coronary artery disease involving I25.10 Active [place] coronary artery of [place] heart, angina presence unspecified Medications Medication Code Code Instructions Start End Status Dosage System Date Date Aspirin 81 [facility] 13764997559 81 MG Orally Active 1 tablet Once a day Clopidogrel [facility] 27503776622 75 MG Orally Active 1 tablet Bisulfate Once a day Basaglar ValerieikPen [facility] 90422070940 100 UNIT/ML Active inject 20 Subcutaneous units once day Ranexa [facility] 87507669279 1000 MG Active TAKE 1 TABLET BY MOUTH TWICE A DAY Atorvastatin [facility] 33363353435 40 MG Orally Active 1 tablet Calcium Once a day Synthroid [facility] 30924142460 88 MCG Orally Active 1 tablet Once a day on an empty stomach in the morning Ranexa [facility] 24193787808 1000 MG Orally Active 1 tablet Twice a day Tradjenta [facility] 05701335984 5 MG Orally Active 1 tablet Once a day Results No Known Results Summary Purpose eClinicalWorks Submission
--- OUTSIDE RECORDS SUMMARY | 2019-05-25 11:01 | XMS REPORT ---
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
--- OUTSIDE RECORDS SUMMARY | 2019-05-25 11:01 | XMS REPORT ---
[...] Assessment Coronary artery disease involving I25.10 Active [place] coronary artery of [place] heart, angina presence unspecified Problem Systolic congestive heart failure, I50.20 Active unspecified HF chronicity Assessment Stented coronary artery Z95.5 Active Assessment Type 2 diabetes mellitus with E11.65 Active hyperglycemia Problem Hypothyroidism, unspecified type E03.9 Active Problem [facility] current use of insulin Z79.4 Active Problem Mixed hyperlipidemia E78.2 Active Problem Orthostatic hypotension I95.1 Active Problem Stented coronary artery Z95.5 Active Assessment Mixed hyperlipidemia E78.2 Active Assessment Hypothyroidism, unspecified type E03.9 Active 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 Assessment Anemia, unspecified type D64.9 Active Assessment Systolic congestive heart failure, I50.20 Active unspecified HF chronicity Assessment CKD (chronic kidney disease), stage N18.3 Active III Problem Anemia, unspecified type D64.9 Active Assessment History of fall Z91.81 Active Assessment Type 2 diabetes mellitus with other E11.29 Active diabetic kidney complication Problem Coronary artery disease involving I25.10 Active [place] coronary artery of [place] heart, angina presence unspecified Medications Medication Code Code Instructions Start End Status Dosage System Date Date Humulin N [place] 52427734868 100 UNIT/ML Inactive not Subcutaneous defined Ranexa [facility] 64427461210 1000 MG Orally Active 1 tablet Twice a day Aspirin 81 [place] 50691732639 81 MG Orally Active 1 tablet Once a day Basaglar ND 47747117309 100 UNIT/ML April 27, Active Inject 10 KwikPen Subcutaneous 2018 units once day Synthroid [place] 80001974264 50 MCG Orally Active 1 tablet Once a day on an empty stomach in the morning Atorvastatin [facility] 41960197844 40 MG Orally Active 1 tablet Calcium Once a day Entresto [facility] 54919795543 24-26 MG Orally April Inactive 1 tablet Twice a day 2017 Clopidogrel [facility] 98930673816 75 MG Orally Active 1 tablet Bisulfate Once a day Tradjenta [facility] 44589818668 5 MG Orally April 27, Active 1 tablet Once a day 2017 Results No Known Results Summary Purpose eClinicalWorks Submission
--- OUTSIDE RECORDS SUMMARY | 2019-05-25 11:01 | XMS REPORT ---
:1955 [facility] Address [address] [place] [address] Dr. Dong [address] [place] [address] Care Team Providers Name Role Phone Unavailable Unavailable Unavailable Problems This patient has no known problems. Allergies, Adverse Reactions, Alerts This patient has no known allergies or adverse reactions. Medications This patient has no known medications. Encounters Start End Encounter Admission Attending Care Care Encounter Date/Time Date/Time Type Type Clinicians Facility Department ID 2019-05-04 Inpatient [facility] [id number] 17:34:38 2019-05-04 2019-05-04 Inpatient E [facility] [id number] 12:18:00 10:21:00
--- OUTSIDE RECORDS SUMMARY | 2019-05-25 11:02 | XMS REPORT | Summary of Care ---
:1955 Author Name CARMELITA HUSAIN M.D. Address [facility] Unavailable , Care Team Providers Name Role Phone CARMELITA HUSAIN M.D. Unavailable Unavailable NILDA BLOUNT, JASON ISLAS Unavailable Unavailable STEFAN BLOUNT, BRIANNA Nice Unavailable Unavailable Unavailable Unavailable Unavailable Functional Status Name Dates Details Functional status health issues are not documented Status: Name Dates Details Cognitive status health issues are not documented Status: Problems Name Dates Details Active medical history not documented Status: Medications Name Dates Details Medications not documented Allergies and Adverse Reactions Name Dates Details Allergy history not documented Status: Procedures Procedure Dates Details Procedures not documented Immunization Name Dates Details Immunizations not documented Social History Name Dates Details Unknown if ever smoked Vital Signs Date Test Result Details No Known Vitals to report Results Date Description Value Details Results not documented Plan of Care Name Dates Details Planned Observations Planned Goals not documented Interventions Provided PlanThe patient is a candidate for coronary artery bypass and all indicated procedures. Risks, benefits and alternatives of the procedure discussed. Instructions Name Dates Details Instructions not documented Encounters Appointment; CARMELITA HUSAIN M.D. On: 04-May-2019 9:00 Encounter Diagnosis: Problem not documented
--- OUTSIDE RECORDS SUMMARY | 2019-05-25 11:02 | XMS REPORT ---
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 Problem Mixed hyperlipidemia E78.2 Active Assessment Anemia, unspecified type D64.9 Active Problem [facility] current [...] Problem Coronary artery disease involving I25.10 Active [place] coronary artery of [place] heart, angina presence unspecified Medications Medication Code Code Instructions Start End Status Dosage System Date Date Ranexa [facility] 63649964327 1000 MG Active TAKE 1 TABLET BY MOUTH TWICE A DAY Trazodone HCl [facility] 38771617767 50 MG Orally Active 1 tablet Once a day at bedtime as needed Tradjenta [facility] 16522335353 5 MG Orally Active 1 tablet Once a day Basaglar KwikPen [facility] 50653777540 100 UNIT/ML Active inject 20 Subcutaneous units once day Spironolactone [facility] 74979124861 25 MG Orally Active 1 tablet Furosemide [facility] 17894655094 20 MG Orally Active 1 tablet Once a day Cetirizine HCl [facility] 54867649565 10 MG Orally Active 1 tablet Once a day Atorvastatin [facility] 94980264525 40 MG Orally Active 1 tablet Calcium Once a day Ranexa [facility] 79523236202 1000 MG Orally Active 1 tablet Twice a day Synthroid [facility] 03797692672 88 MCG Orally Active 1 tablet Once a day on an empty stomach in the morning Aspirin 81 [facility] 59669451920 81 MG Orally Active 1 tablet Once a day Clopidogrel [facility] 05634000873 75 MG Orally Active 1 tablet Bisulfate Once a day Entresto 24/26mg [facility] 60549372430 24/26mg oral Active one bid Metoprolol [facility] 17682642936 25 MG Orally Active 1 tablet Tartrate Twice a day with food Results No Known Results Summary Purpose eClinicalWorks Submission
[2019-05-25 11:50] LABS: Blood Gas Oxyhemoglobin 94.7 % (94-97); Blood O2 Saturation 97.3 % (92-98.5)
[2019-05-25 11:58] LABS: Absolute Lymphocytes (CBC) 0.7 K/uL (0.7-4.9); Basophils % 0.3 % (0-1.3); Eosinophils % 0.4 % (0-4.4); Hematocrit 21.7 % (39.6-49.0); Lymphocytes % 6.3 % (15.3-44.8); MPV 8.6 fL (7.6-11.3); Monocytes % 12.5 % (3.3-12.3); Protime INR 1.11; RBC Red Blood Cell Count 2.41 M/uL (4.33-5.43)
[2019-05-25] MEDS ORDERED: NA CHLORIDE 0.9% 500 ML ONE ×2 (12:05→15:53)
--- NOTE | 2019-05-25 12:12 | RAD REPORT ---
EXAM DESCRIPTION: [place] Single View05/25/2019 12:02 pm CLINICAL HISTORY: Shortness breath COMPARISON: April 2019 FINDINGS: Postsurgical changes involve the chest The heart is moderately enlarged. Small right pleural effusion with mild right basilar atelectasis is suspected Central venous catheter has its tip in the right atrium
[2019-05-25 12:23] LABS: Albumin 2.4 g/dL (3.4-5.0); Bilirubin Direct 0.5 mg/dL (0-0.2); Bilirubin Total 0.7 mg/dL (0.2-1.0); Potassium 4.4 mmol/L (3.5-5.1); Protein, Total 6.3 g/dL (6.4-8.2); Troponin (Emerg Dept Use Only) 0.49 ng/mL (0.0-0.045)
--- NOTE | 2019-05-25 13:35 | RAD REPORT ---
EXAM DESCRIPTION: CT - Chest Abd Pelvis Wo Con - 05/25/2019 1:21 pm CLINICAL HISTORY: Chest and abdominal pain COMPARISON: 2014 TECHNIQUE: Computed axial tomography of the chest, abdomen and pelvis was obtained. Oral contrast wa s given. IV contrast was not requested. All CT scans are performed using dose optimization technique as appropriate and may include automated exposure control or mA/KV adjustment according to patient size. FINDINGS: The evaluation of mediastinum, jose eduardo, vessels and solid organs is limited secondary to the lack of IV contrast administration A small left and small to moderate right pleural effusions with bibasilar atelectasis Moderate pericardial effusion. Postsurgical changes involve the chest The liver, spleen, pancreas, adrenals and kidneys appear grossly normal Small amount of ascites. Diffuse edema within subcutaneous tissues. Small right and small to moderate left inguinal hernias containing fat No evidence of diverticulitis IMPRESSION: Moderate pericardial effusion Small to moderate right and small left pleural effusions Anasarca
[2019-05-25 14:30] LABS: Urine Blood 3+ (NEG); Urine Glucose 1+ (NEG); Urine Protein 2+ (NEG); Urine Specific Gravity 1.025 (1.005-1.030)
--- NOTE | 2019-05-25 15:36 | EKG ---
Test Date: 2019-05-25 Test Time: 11:01:24 Market Research Intern: KAI MEASUREMENT RESULTS: Intervals: Rate: 61 MT: 146 QRSD: 104 QT: 448 QTc: 450 [place]: P: 13 MT: 146 QRS: -29 T: 103 INTERPRETIVE STATEMENTS: Normal sinus rhythm Anterolateral infarct, age undetermined Abnormal ECG Compared to ECG 04/08/2019 11:40:20 First degree AV block no longer present Left-axis deviation no longer present Myocardial infarct finding still present Electronically Signed On 05-25-19 15:35:15 CDT by Puneet Banerjee
[2019-05-25] MEDS ORDERED: DOPAMINE/D5W 400 MG/250 ML BAG IV ONE (15:53)
--- NOTE | 2019-05-25 15:55 | ECHO ---
HEIGHT: ft in WEIGHT: lb oz DATE OF STUDY: 05/25/[address]: Severo Stark MD 2-DIMENSIONAL: YES M.MODE: YES DOPPLER: YES COLOR FLOW: YES TDS: NO PORTABLE: NO DEFINITY: NO BUBBLE STUDY: NO DIAGNOSIS: CHEST PAIN CARDIAC HISTORY: CATHERIZATION: YES SURGERY: YES PROSTHETIC VALVE: NO PACEMAKER: NO MEASUREMENTS (cm) DIASTOLIC (NORMALS) SYSTOLIC (NORMALS) IVSd 1.1 (0.6-1.2) LA Diam 3.5 (1.9-4.0) LVEF 26% LVIDd 5.9 (3.5-5.7) LVIDs 5.2 (2.0-3.5) %FS 12% LVPWd 1.1 (0.6-1.2) Ao Diam 3.2 (2.0-3.7) 2 DIMENSIONAL ASSESSMENT: RIGHT ATRIUM: NORMAL LEFT ATRIUM: NORMAL RIGHT VENTRICLE: NORMAL LEFT VENTRICLE: DILATED TRICUSPID VALVE: NORMAL MITRAL VALVE: MITRAL ANNULAR CALCIFICATION PULMONIC VALVE: NORMAL AORTIC VALVE: SCLEROSIS PERICARDIAL EFFUSION: SMALL AORTIC ROOT: NORMAL LEFT VENTRICULAR WALL MOTION: SEVERE GLOBAL HYPOKINESIS. DOPPLER/COLOR FLOW: MILD TRICUSPID REGURGITATION AND MITRAL REGURGITATION. COMMENTS: SEVERE GLOBAL HYPOKINESIS. EJECTION FRACTION 20%. MITRAL ANNULAR CALCIFICATION. AORTIC SCLEROSIS. LEFT VENTRICLE DILITATION. MILD MITRAL AND TRICUSPID REGURGITATION. TECHNOLOGIST: [facility]
--- NOTE | 2019-05-25 17:12 | ER ---
Nurse's Notes [facility] Name: Benji Villalpando Age: 63 yrs Sex: Male : 1955 Arrival Date: 05/25/2019 Time: 11:08 Bed 4 Private MD: Diagnosis: Cardiogenic shock;Sepsis, unspecified organism Presentation: 05/25 11:05 Presenting complaint: EMS states: Shortness of breath that started today, reports that aj1 patient was just discharged from the hospital yesterday after having open heart surgery one week ago. Patient is wearing a lift vest at this time, states that he did not hear any alarms go off from life vest. Patient denies chest pain at this time. Patient's son reports that patient was suppose to start dialysis today, he has a dialysis catheter placed to the right upper chest while he was admitted. Patient appears drowsy, but responds easily to verbal stimuli. Denies any pain. Edema noted to bilateral lower legs. Breath sounds CTA. BP 83/55. Patient was 88% on room air upon EMS arrival. O2 sat is 98 to 100% on 2L nc. 11:05 Transition of care: patient was not received from another setting of care. Onset of aj1 symptoms was May 25, 2019. Risk Assessment: Do you want to hurt yourself or someone else? Patient reports no desire to harm self or others. Initial Sepsis Screen: Does the patient meet any 2 criteria? Systolic BP < 90 mmHg. Altered Mental Status. Yes Does the patient have a suspected source of infection? No. Patient's initial sepsis screen is negative. Care prior to arrival: None. 11:05 Method Of Arrival: EMS: [facility] 11:18 Acuity: MILADYS 2 aj1 Triage Assessment: 11:05 General: Appears in no apparent distress. comfortable, Behavior is calm, cooperative, aj1 appropriate for age. Pain: Denies pain. Respiratory: Reports shortness of breath at rest Airway is patent Respiratory effort is even, unlabored, Respiratory pattern is regular, symmetrical, Breath sounds are clear bilaterally. Onset: The symptoms/episode began/occurred suddenly, the patient has mild shortness of breath. Historical: - Allergies: 11:47 No Known Allergies; ph - Home Meds: 11:56 Tradjenta 5 mg oral tab 1 tab once daily [Active]; Tylenol #3 Oral as needed [Active]; aj1 aspirin 81 mg Oral chew 1 tab once daily [Active]; atorvastatin 80 mg oral tab 1 tab once daily [Active]; carvedilol 3.125 mg oral tab 1 tab 2 times per day [Active]; clopidogrel 75 mg Oral tab 1 tab once daily [Active]; isosorbide dinitrate 5 mg Oral tab 1 tab 3 times per day [Active]; levothyroxine 88 mcg tab 1 tab once daily [Active]; lisinopril 2.5 mg Oral tab 1 tab once daily [Active]; senna 8.6 mg oral tab 2 tabs once daily [Active]; - PMHx: 11:38 Diabetes - NIDDM; Hypertension; chronic kidney disease; renal failure; CHF; aj1 11:47 Anemia; Myocardial infarction; Hyperlipidemia; Hypothyroidism; ph - PSHx: 11:38 open heart surgery 05/18/19; aj1 - Immunization history:: Adult Immunizations up to date. - Social history:: Smoking status: unknown. - Ebola Screening: : Patient denies travel to an Ebola-affected area in the 21 days before illness onset. Screenin:05 Abuse screen: Denies threats or abuse. Denies injuries from another. Nutritional aj1 screening: No deficits noted. Tuberculosis screening: No symptoms or risk factors identified. 16:07 Fall Risk No fall in past 12 months (0 pts). Secondary diagnosis (15 points) impaired rv mobility, IV access (20 points). Ambulatory Aid- None/Bed Rest/Nurse Assist (0 pts). Gait- Weak (10 pts.). Mental Status- Oriented to own ability (0 pts). Total Nayak Fall Scale indicates Low Risk Score (25-44 pts). Fall prevention measures have been instituted. Side Rails Up X 2 Placed close to Nursing Station Frequent Obs/Assesments occuring Family Present and informed to notify staff if they need to leave bedside As available Patient and Family Educated on Fall Prevention Program and strategies. Assessment: 11:05 General: Appears in no apparent distress. comfortable, Behavior is calm, cooperative, aj1 appropriate for age, drowsy. Pain: Denies pain. Neuro: Level of Consciousness is awake, obeys commands, listless, Oriented to person, place, time, situation, Speech is normal, Denies weakness. Cardiovascular: Reports shortness of breath, Denies chest pain, palpitations, Heart tones S1 S2 present Patient's skin is warm and dry. Dialysis catheter noted to right upper chest. Patient's son states that they did not start a shunt to either arm because they are anticipating dialysis being temporary. Patient has a life vest in place. . Edema is 2+ to left midcalf, left ankle, left foot, right midcalf, right ankle and right foot Rhythm is sinus rhythm. Respiratory: Reports shortness of breath at rest Airway is patent Respiratory effort is even, unlabored, Respiratory pattern is regular, symmetrical, Breath sounds are clear bilaterally. GI: Abdomen is round distended, Bowel sounds present X 4 quads. Abd is soft and non tender X 4 quads. Patient currently denies abdominal pain. : No signs and/or symptoms were reported regarding the genitourinary system. Parent/caregiver report the patient having making less urine. EENT: No signs and/or symptoms were reported regarding the EENT system. Derm: Skin is dry, Skin is pale, Skin temperature is cool. Musculoskeletal: No signs and/or symptoms reported regarding the musculoskeletal system. Circulation, motion, and sensation intact. 12:09 Reassessment: Patient appears in no apparent distress at this time. No changes from aj1 previously documented assessment. Patient and/or family updated on plan of care and expected duration. Pain level reassessed. Patient is alert, oriented x 3, equal unlabored respirations, skin warm/dry/pink. 13:15 Reassessment: Patient transported to CT via stretcher accompanied by me on cardiac aj1 monitor. 13:31 Reassessment: Patient transported back to ER bed 4 via stretcher, accompanied by me, on aj1 cardiac surgeon. 13:32 Reassessment: Patient and/or family updated on plan of care and expected duration. Pain aj1 level reassessed. General: Appears in no apparent distress. comfortable, Behavior is calm, cooperative, drowsy. Pain: Denies pain. Neuro: Level of Consciousness is obeys commands, listless, Awakens easily to verbal stimuli. Oriented to person, place, time, situation, Speech is normal. Cardiovascular: Denies chest pain, palpitations, shortness of breath, Patient's skin is warm and dry. Rhythm is sinus rhythm. Respiratory: Airway is patent Respiratory effort is even, unlabored, Respiratory pattern is regular, symmetrical. GI: Abdomen is round distended, Abd is soft and non tender X 4 quads. Derm: Skin is pale, Skin temperature is warm. Musculoskeletal: Circulation, motion, and sensation intact. 14:22 Reassessment: Echo at bedside. aj1 14:37 Reassessment: Patient appears in no apparent distress at this time. No changes from aj1 previously documented assessment. Patient and/or family updated on plan of care and expected duration. Pain level reassessed. Patient is alert, oriented x 3, equal unlabored respirations, skin warm/dry/pink. 16:41 Reassessment: Patient appears in no apparent distress at this time. Patient and/or rv family updated on plan of care and expected duration. Pain level reassessed. Patient is alert, oriented x 3, equal unlabored respirations, skin warm/dry/pink. blood pressure normolized. 17:15 Reassessment: Patient appears in no apparent distress at this time. Patient and/or rv family updated on plan of care and expected duration. Pain level reassessed. Patient is alert, oriented x 3, equal unlabored respirations, skin warm/dry/pink. Patient states symptoms have improved. 17:38 Reassessment: Patient appears in no apparent distress at this time. Patient and/or rv family updated on plan of care and expected duration. Pain level reassessed. Patient is alert, oriented x 3, equal unlabored respirations, skin warm/dry/pink. called report to Flavia [facility] of [facility]. awaiting transport. family aware of plan of care and status of patient. Vital Signs: 11:05 BP 83 / 55; Pulse 62; Resp 12; Temp 97.8(O); Pulse Ox 88% on R/A; aj1 11:10 Pulse Ox 100% on 2 lpm NC; aj1 11:30 BP 86 / 63; Pulse 61; Resp 16; Pulse Ox 99% on 2 lpm NC; aj1 12:00 BP 88 / 62; Pulse 60; Resp 14; Pulse Ox 100% on 2 lpm NC; aj1 12:06 Weight 81.65 kg (R); Height 5 ft. 4 in. (162.56 cm) (R); aj1 12:16 BP 92 / 72; Pulse 58; Resp 13; Pulse Ox 100% on 2 lpm NC; aj1 12:51 BP 93 / 60; Pulse 60; Resp 15; Pulse Ox 98% on 2 lpm NC; aj1 13:15 BP 91 / 48; Pulse 58; Resp 16; Pulse Ox 99% on 2 lpm NC; aj1 13:30 BP 89 / 61; Pulse 59; Resp 14; Pulse Ox 100% on 2 lpm NC; aj1 13:50 BP 92 / 72; Pulse 59; Resp 16; Pulse Ox 100% on 2 lpm NC; aj1 14:13 BP 95 / 67; Pulse 57; Resp 20; Pulse Ox 99% on 2 lpm NC; aj1 14:37 BP 91 / 61; Pulse 56; Resp 18; Pulse Ox 99% on 2 lpm NC; aj1 15:00 BP 86 / 59; Pulse 57; Resp 16; Pulse Ox 100% on 2 lpm NC; rv 15:05 Temp 97.8(O); jp3 15:15 BP 92 / 69; Pulse 57; Resp 16; Pulse Ox 100% on 2 lpm NC; rv 15:30 BP 89 / 55; Pulse 57; Resp 18; Pulse Ox 100% on 2 lpm NC; rv 15:45 BP 65 / 43; Pulse 53; Resp 12; Pulse Ox 94% on 2 lpm NC; rv 16:06 BP 127 / 88; Pulse 75; Resp 14; Pulse Ox 94% on 2 lpm NC; rv 16:15 BP 119 / 74; Pulse 79; Resp 16; Pulse Ox 91% on 2 lpm NC; rv 16:30 BP 124 / 66; Pulse 82; Resp 15; Pulse Ox 90% on 2 lpm NC; rv 16:45 BP 118 / 78; Pulse 82; Resp 13; Pulse Ox 88% on 2 lpm NC; rv 17:00 BP 95 / 57; Pulse 86; Resp 15; Pulse Ox 88% on 2 lpm NC; rv 17:15 BP 104 / 61; Pulse 83; Resp 14; Pulse Ox 96% on 2 lpm NC; rv 17:30 BP 119 / 66; Pulse 84; Resp 15; Pulse Ox 91% on 2 lpm NC; rv 18:00 BP 107 / 59; Pulse 81; Resp 16; Pulse Ox 93% on 2 lpm NC; rv 18:30 BP 104 / 59; Pulse 79; Resp 15; Temp 98; Pulse Ox 94% 2 lpm ; rv 12:06 Body Mass Index 30.90 (81.65 kg, 162.56 cm) aj1 ED Course: 11:05 No provider procedures requiring assistance completed. aj1 11:05 Arm band placed on. aj1 11:05 Patient has correct armband on for positive identification. Bed in low position. Call aj1 light in reach. Side rails up X 1. residential monitor on. Pulse ox on. NIBP on. 11:08 Patient arrived in ED. aa5 11:09 Severo Stark MD is Attending Physician. gs 11:17 Noris Hoyos RN is Primary Nurse. aj1 11:18 Triage completed. aj1 11:53 Initial lab(s) drawn, by me, sent to lab. Inserted saline lock: 22 gauge in right ph forearm, using aseptic technique. Inserted saline lock: 22 gauge in left forearm, using aseptic technique. 11:59 X-ray completed. Portable x-ray completed in exam room. Patient tolerated procedure jb2 well. 12:05 Chest Single View XRAY In Process Unspecified. EDMS 13:21 CT Chest Abdomen Pelvis W/O Contrast In Process Unspecified. EDMS 13:45 Warm blanket given. Verbal reassurance given. Cleaned of incontinence. Linen changed. jp3 14:05 Urine collected: straight cath specimen, cloudy, blood tinged, Amount Returned: 3mL. jp3 14:59 Report given to HIRA Perkins. aj1 15:19 Warm blanket given. jp3 18:40 Patient transferred, IV remains in place. rv Administered Medications: 12:03 Drug: NS 0.9% 500 ml Route: IV; Rate: bolus; Site: right antecubital; aj1 17:15 Follow up: IV Status: Completed infusion rv 15:49 Drug: Dopamine drip 5 mcg/kg/min - (DOPamine 400 mg, D5W 250 ml) Route: IV; Rate: rv calculated rate; Site: Other; 18:40 Follow up: IV Status: Infusion continued upon transfer rv 17:00 Drug: Cefepime 1 grams Route: IVPB; Rate: 200 ml/hr; Infused Over: 30 mins; Site: left rv forearm; 17:40 Follow up: IV Status: Completed infusion; IV Intake: 100ml rv 17:14 Drug: Zofran 4 mg Route: IVP; Site: right antecubital; rv 18:40 Follow up: Response: Marked relief of symptoms; Nausea is decreased rv Point of Care Testing: Blood Glucose: 11:54 Blood Glucose: 315 mg/dL; ph Ranges: Intake: 17:40 IV: 100ml; Total: 100ml. rv Outcome: 17:11 ER care complete, transfer ordered by MD. schilling 18:39 Transferred by ground EMS to [facility], Transfer form completed. rv X-rays sent w/ patient. 18:39 Condition: improved 18:39 Instructed on the need for transfer. 18:40 Patient left the ED. rv Signatures: Dispatcher [employer] EDNoris yLman RN RN aj1 Juan Manuel Preston Audri RN RN aa5 Ekaterina Love RN RN Severo Stark MD MD gs Vicente, Ronaldo RN RN rv Patricio Castro jp3 Corrections: (The following items were deleted from the chart) 12:11 11:05 Cardiovascular: Reports shortness of breath, Denies chest pain, palpitations, aj1 Heart tones S1 S2 present Patient's skin is warm and dry. Edema is 2+ to left midcalf, left ankle, left foot, right midcalf, right ankle and right foot Rhythm is sinus rhythm ajKristyn 13:32 13:15 Reassessment: Patient transported to CT via stretcher accompanied by me celia yang
--- NOTE | 2019-05-25 17:13 | EDPHYS ---
Physician Documentation [facility] Name: Benji Villalpando Age: 63 yrs Sex: Male : 1955 Arrival Date: 05/25/2019 Time: 11:08 Bed 4 Private MD: ED Physician Severo Stark HPI: 05/25 17:39 This 63 yrs old Male presents to ER via EMS with complaints of Shortness Of gs Breath. 17:39 The patient has shortness of breath at rest. Onset: The symptoms/episode began/occurred gs yesterday, and became worse. Duration: The symptoms are continuous. Associated signs and symptoms: Pertinent negatives: chest pain, non-productive cough. Severity of symptoms: At their worst the symptoms were severe in the emergency department the symptoms are unchanged. The patient has experienced similar episodes in the past, a few times. RECENT CABG MH. Historical: - Allergies: 11:47 No Known Allergies; ph - Home Meds: 11:56 Tradjenta 5 mg oral tab 1 tab once daily [Active]; Tylenol #3 Oral as needed [Active]; aj1 aspirin 81 mg Oral chew 1 tab once daily [Active]; atorvastatin 80 mg oral tab 1 tab once daily [Active]; carvedilol 3.125 mg oral tab 1 tab 2 times per day [Active]; clopidogrel 75 mg Oral tab 1 tab once daily [Active]; isosorbide dinitrate 5 mg Oral tab 1 tab 3 times per day [Active]; levothyroxine 88 mcg tab 1 tab once daily [Active]; lisinopril 2.5 mg Oral tab 1 tab once daily [Active]; senna 8.6 mg oral tab 2 tabs once daily [Active]; - PMHx: 11:38 Diabetes - NIDDM; Hypertension; chronic kidney disease; renal failure; CHF; aj1 11:47 Anemia; Myocardial infarction; Hyperlipidemia; Hypothyroidism; ph - PSHx: 11:38 open heart surgery 05/18/19; aj1 - Immunization history:: Adult Immunizations up to date. - Social history:: Smoking status: unknown. - Ebola Screening: : Patient denies travel to an Ebola-affected area in the 21 days before illness onset. ROS: 17:39 Constitutional: Negative for fever. gs 17:39 Cardiovascular: Negative for chest pain. 17:39 Cardiovascular: Positive for LOW BLOOD PRESSURE. 17:39 Respiratory: Positive for shortness of breath. 17:39 All other systems are negative. Exam: 17:39 Head/Face: Normocephalic, atraumatic. Eyes: Pupils equal round and reactive to light, gs extra-ocular motions intact. Lids and lashes normal. Conjunctiva and sclera are non-icteric and not injected. Cornea within normal limits. Periorbital areas with no swelling, redness, or edema. ENT: Nares patent. No nasal discharge, no septal abnormalities noted. Tympanic membranes are normal and external auditory canals are clear. Oropharynx with no redness, swelling, or masses, exudates, or evidence of obstruction, uvula midline. Mucous membranes moist. Neck: Trachea midline, no thyromegaly or masses palpated, and no cervical lymphadenopathy. Supple, full range of motion without nuchal rigidity, or vertebral point tenderness. No Meningismus. Chest/axilla: Normal chest wall appearance and motion. Nontender with no deformity. No lesions are appreciated. Cardiovascular: Regular rate and rhythm with a normal S1 and S2. No gallops, murmurs, or rubs. Normal PMI, no JVD. No pulse deficits. 17:39 Constitutional: The patient appears alert, awake, in obvious distress, severely distressed. 17:39 ECG was reviewed by the Attending Physician. Vital Signs: 11:05 BP 83 / 55; Pulse 62; Resp 12; Temp 97.8(O); Pulse Ox 88% on R/A; aj1 11:10 Pulse Ox 100% on 2 lpm NC; aj1 11:30 BP 86 / 63; Pulse 61; Resp 16; Pulse Ox 99% on 2 lpm NC; aj1 12:00 BP 88 / 62; Pulse 60; Resp 14; Pulse Ox 100% on 2 lpm NC; aj1 12:06 Weight 81.65 kg (R); Height 5 ft. 4 in. (162.56 cm) (R); aj1 12:16 BP 92 / 72; Pulse 58; Resp 13; Pulse Ox 100% on 2 lpm NC; aj1 12:51 BP 93 / 60; Pulse 60; Resp 15; Pulse Ox 98% on 2 lpm NC; aj1 13:15 BP 91 / 48; Pulse 58; Resp 16; Pulse Ox 99% on 2 lpm NC; aj1 13:30 BP 89 / 61; Pulse 59; Resp 14; Pulse Ox 100% on 2 lpm NC; aj1 13:50 BP 92 / 72; Pulse 59; Resp 16; Pulse Ox 100% on 2 lpm NC; aj1 14:13 BP 95 / 67; Pulse 57; Resp 20; Pulse Ox 99% on 2 lpm NC; aj1 14:37 BP 91 / 61; Pulse 56; Resp 18; Pulse Ox 99% on 2 lpm NC; aj1 15:00 BP 86 / 59; Pulse 57; Resp 16; Pulse Ox 100% on 2 lpm NC; rv 15:05 Temp 97.8(O); jp3 15:15 BP 92 / 69; Pulse 57; Resp 16; Pulse Ox 100% on 2 lpm NC; rv 15:30 BP 89 / 55; Pulse 57; Resp 18; Pulse Ox 100% on 2 lpm NC; rv 15:45 BP 65 / 43; Pulse 53; Resp 12; Pulse Ox 94% on 2 lpm NC; rv 16:06 BP 127 / 88; Pulse 75; Resp 14; Pulse Ox 94% on 2 lpm NC; rv 16:15 BP 119 / 74; Pulse 79; Resp 16; Pulse Ox 91% on 2 lpm NC; rv 16:30 BP 124 / 66; Pulse 82; Resp 15; Pulse Ox 90% on 2 lpm NC; rv 16:45 BP 118 / 78; Pulse 82; Resp 13; Pulse Ox 88% on 2 lpm NC; rv 17:00 BP 95 / 57; Pulse 86; Resp 15; Pulse Ox 88% on 2 lpm NC; rv 17:15 BP 104 / 61; Pulse 83; Resp 14; Pulse Ox 96% on 2 lpm NC; rv 17:30 BP 119 / 66; Pulse 84; Resp 15; Pulse Ox 91% on 2 lpm NC; rv 18:00 BP 107 / 59; Pulse 81; Resp 16; Pulse Ox 93% on 2 lpm NC; rv 18:30 BP 104 / 59; Pulse 79; Resp 15; Temp 98; Pulse Ox 94% 2 lpm ; rv 12:06 Body Mass Index 30.90 (81.65 kg, 162.56 cm) aj1 MDM: 11:11 Patient medically screened. gs 17:39 Differential diagnosis: Bronchitis CHF exacerbation, Chronic Obstructive Pulmonary gs Disease Myocardial Infarction pneumonia, pulmonary edema, Sepsis. Data reviewed: vital signs, nurses notes, old medical records, lab test result(s), EKG, radiologic studies. Counseling: I had a detailed discussion with the patient and/or guardian regarding: the historical points, exam findings, and any diagnostic results supporting the discharge/admit diagnosis, the need to transfer to another facility. Response to treatment: the patient's symptoms have markedly improved after treatment, BP MUCH BETTER ON DOPAMINE, O2 SATS BETTER . 05/25 11:14 Order name: ABG; Complete Time: 13:03 05/25 11:15 Order name: Basic Metabolic Panel 05/25 11:15 Order name: Blood Culture Adult (2) 05/25 11:15 Order name: CBC with Diff 05/25 11:15 Order name: CPK 05/25 11:15 Order name: Lactate; Complete Time: 12:21 05/25 11:15 Order name: LFT's; Complete Time: 13:03 05/25 11:15 Order name: Lipase; Complete Time: 13:03 05/25 11:15 Order name: Procalcitonin; Complete Time: 13:03 05/25 11:15 Order name: Protime (+inr); Complete Time: 12:21 05/25 11:15 Order name: Troponin (emerg Dept Use Only); Complete Time: 13:03 05/25 11:15 Order name: AMMONIA; Complete Time: 12:21 05/25 11:16 Order name: Basic Metabolic Panel; Complete Time: 13:03 [facility] 05/25 11:15 Order name: Chest Single View XRAY; Complete Time: 12:21 05/25 11:15 Order name: Accucheck; Complete Time: 11:44 05/25 11:16 Order name: Blood Culture [facility] 05/25 11:16 Order name: CBC with Automated Diff; Complete Time: 12:21 [facility] 05/25 11:16 Order name: Creatine Phosphokinase; Complete Time: 13:03 [facility] 05/25 12:05 Order name: EKG Electrocardiogram [facility] 05/25 12:07 Order name: ABG Arterial Blood Gas [facility] 05/25 12:13 Order name: Type And Screen; Complete Time: 13:49 aj1 05/25 13:04 Order name: CT Chest Abdomen Pelvis W/O Contrast; Complete Time: 13:49 gs 05/25 13:52 Order name: Echo w/ Doppler ms 05/25 14:12 Order name: Urine Dipstick--Ancillary (enter results); Complete Time: 15:32 ms 05/25 15:54 Order name: Glucose, Ancillary Testing; Complete Time: 16:44 EDMS 05/25 11:15 Order name: Cardiac monitoring; Complete Time: 11:23 gs 05/25 11:15 Order name: EKG - Nurse/Tech; Complete Time: 11:23 gs 05/25 11:15 Order name: IV Saline Lock - Large Bore; Complete Time: 11:45 gs 05/25 11:15 Order name: Labs collected and sent; Complete Time: 11:45 gs 05/25 11:15 Order name: O2 Per Protocol; Complete Time: 11:23 gs 05/25 11:15 Order name: O2 Sat Monitoring; Complete Time: 11:23 gs 05/25 11:15 Order name: Urine Dipstick-Ancillary (obtain specimen); Complete Time: 14:11 gs EC:39 Rate is 61 beats/min. Rhythm is regular. DE interval is normal. QRS interval is gs prolonged. T waves are Inverted. Clinical impression: NSR w/ Non-specific ST/T Changes. Interpreted by me. Administered Medications: 12:03 Drug: NS 0.9% 500 ml Route: IV; Rate: bolus; Site: right antecubital; aj1 17:15 Follow up: IV Status: Completed infusion rv 15:49 Drug: Dopamine drip 5 mcg/kg/min - (DOPamine 400 mg, D5W 250 ml) Route: IV; Rate: rv calculated rate; Site: Other; 18:40 Follow up: IV Status: Infusion continued upon transfer rv 17:00 Drug: Cefepime 1 grams Route: IVPB; Rate: 200 ml/hr; Infused Over: 30 mins; Site: left rv forearm; 17:40 Follow up: IV Status: Completed infusion; IV Intake: 100ml rv 17:14 Drug: Zofran 4 mg Route: IVP; Site: right antecubital; rv 18:40 Follow up: Response: Marked relief of symptoms; Nausea is decreased rv Point of Care Testing: Blood Glucose: 11:54 Blood Glucose: 315 mg/dL; ph Ranges: Critical Glucose Levels:Adult <50 mg/dl or >400 mg/dl <40 mg/dl or >180 mg/dl Disposition: 17:39 Critical Care:. Disposition: 05/25/19 17:11 Transfer ordered to [facility]. Diagnosis are Cardiogenic shock, Sepsis, unspecified organism. - Reason for transfer: Higher level of care. - [facility]. - Condition is Stable. - Problem is new. - Symptoms have improved. Critical care time excluding procedures: 17:39 Critical care time: Bedside Care: 30 minutes, Consultation: 10 minutes, Family gs Intervention: 20 minutes. Total time: 60 minutes Signatures: Dispatcher [employer] EDKY Noris Hoyos RN RN aj1 Ekaterina Love RN RN Severo Stark MD MD Jossue Pemberton RN RN rv Corrections: (The following items were deleted from the chart) 17:15 17:11 05/25/2019 17:11 Transfer ordered to [facility]. Diagnosis is gs Cardiogenic shock; Sepsis, unspecified organism. Reason for transfer: Higher level of care. Accepting physician is [facility]. Condition is Stable. Problem is new. Symptoms have improved. 17:54 11:17 UA MICROSCOPIC+U.LAB.BRZ ordered. [facility] EDKY 18:40 17:15 05/25/2019 17:11 Transfer ordered to [facility]. Diagnosis is rv Cardiogenic shock; Sepsis, unspecified organism. Reason for transfer: Higher level of care. [facility]. Condition is Stable. Problem is new. Symptoms have improved.
[2019-05-25] MEDS ORDERED: CEFEPIME 1 GM/100 ML BAG IV ONE (17:19)
[2019-05-25] MEDS ORDERED: ONDANSETRON 4 MG/2 ML VIAL ONE (17:27)
[2019-05-25 21:06] VITALS: BP 123/82; TEMP 98.1; O2SAT 100
== END 2019-05-25 18:40 | disposition short-term general hospital (02) ==
LOC: ER 10:51
DX: R57.0 Cardiogenic shock (principal); A41.9 Sepsis, unspecified organism; Z98.890 Other specified postprocedural states; I50.9 Heart failure, unspecified; I25.2 Old myocardial infarction; E78.5 Hyperlipidemia, unspecified; E03.9 Hypothyroidism, unspecified; I12.0 Hypertensive chronic kidney disease with stage 5 chronic kidney disease or end stage renal disease; E11.22 Type 2 diabetes mellitus with diabetic chronic kidney disease; N18.6 End stage renal disease; Z99.2 Dependence on renal dialysis; Z79.82 Long term (current) use of aspirin
CPT/HCPCS: 93005; 93306; 87040 ×2; 85025; 80048; 36415; 82140; 86900; 86850; 82550; 85610; 86901; 82962; 80076; 83605; 81003; 84484; 83690; 84145; 71250; 74176; 71045; 82805; 99285; J0692; J1265; J2405

== ENCOUNTER 2020-11-14 13:33 | Emergency (ER) | payer OTHER ==
--- OUTSIDE RECORDS SUMMARY | 2020-11-14 13:36 | XMS REPORT | Clinical Summary ---
:1955 Author Organization [facility] Address [address] [place] [address] Care Team Providers Name Role Phone Unavailable Primary Care Provider Unavailable Allergies No Known Allergies Medications Medication Sig Dispensed Refills Start Date End Date Status linaGLIPtin Take 5 mg by mouth 0 Active (TRADJENTA) 5 mg daily. Tab aspirin 81 MG Take 81 mg by mouth 0 Active chewable tablet daily. atorvastatin Take 80 mg by mouth 0 Active (LIPITOR) 80 MG daily. tablet clopidogrel Take 75 mg by mouth 0 Active (PLAVIX) 75 mg daily. tablet levothyroxine Take 88 mcg by mouth 0 Active (SYNTHROID, Every morning on an LEVOTHROID) 88 MCG empty stomach. tablet senna (SENOKOT) 8.6 Take 2 tablets by 0 Active mg tablet mouth daily. midodrine Three times a week 90 tablet 0 06/15/2019 Active (PROAMATINE) 10 MG before dialysis. tablet acetaminophen Take 2 tablets (650 30 tablet 0 06/08/201906/02 (TYLENOL) 325 MG mg total) by mouth 0 tablet every 4 (four) hours as needed for up to 360 days. gabapentin Take 1 capsule (100 0 06/08/2019 06/07/20 2 (NEURONTIN) 100 MG mg total) by mouth 0 capsule nightly. ferrous sulfate 325 Take 1 tablet (325 0 06/15/2019 (65 FE) MG tablet mg total) by mouth 2 0 (two) times daily. insulin detemir Inject 10 Units 10 mL 0 06/15/2019 02 U-100 (LEVEMIR) 100 subcutaneously 0 unit/mL injection daily. Active Problems Problem Noted Date Cardiogenic shock 05/25/2019 ESRD (end stage renal disease) Social History Tobacco Use Types Packs/Day Years Used Date Former Smoker 5 Quit: 11/07/18 79 Alcohol Use Drinks/Week oz/Week Comments No Alcohol Habits Answer Date Recorded How often do you have a drink containing alcohol? Never 05/25/2019 How many drinks containing alcohol do you have on a typical Not asked day when you are drinking? How often do you have six or more drinks on one occasion? No t asked Sex Assigned at Date Recorded Not on file Last Filed Vital Signs Not on file Plan of Treatment Health Maintenance Due Date Last Done Comments COLON CANCER SCREENING COLONOSCOPY 1955 PNEUMOCOCCAL 65+ YRS (1 of 1 - [id number]) 2018 MEDICARE ANNUAL WELLNESS (YEAR 2 or FIRST YEAR if no 11/08/2019 IPPE) INFLUENZA VACCINE (#1) 2020 Results Not on fileafter 11/14/2019 Insurance Payer Benefit Plan / Subscriber ID Effective Dates Phone Addre ss Type Group [employer] TEX[employer] HMO [id number] 2018-[facility] [employer] Contracted ALL t Advance Directives For more information, please contact: [phone] Type Date Recorded Patient Athletic Training Internship 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 Mechanical Ventilation with Yes Intubation? Bag/Mask? Yes Internal/External Pacemaker? Yes Transfer to Critical Care? Yes Chest Compressions? No Defibrillation/Cardioversion? Yes Full Code 05/25/2019 8:33 PM 05/25/2019 8:37 PM This code status was determined by: Patient
--- OUTSIDE RECORDS SUMMARY | 2020-11-14 13:38 | XMS REPORT ---
:[address] [facility] Address [address] [place], [address] [place] [address] Care Team Providers Name Role Phone Corley Unavailable [phone] PROBLEMS Type Condition ICD9-CM [id number] Onset Condition SNOMED Code Notes Code Code Dates Status Problem Mixed E78.2 Active 898017080 hyperlipidemia Problem History of fall Z91.81 Active 164592961 Problem Stented coronary Z95.5 Active 422365049 artery Problem half-way current Z79.4 Active 928110569 use of insulin Problem Type 2 diabetes E11.65 Active 991108955411935 mellitus with hyperglycemia Problem Orthostatic I95.1 Active 81094922 hypotension Problem Anemia, D64.9 Active 356816842 unspecified type Problem CKD (chronic N18.3 Active 860330315 kidney disease), stage III Problem Systolic I50.20 Active 720150418 congestive heart failure, unspecified HF chronicity Problem Dependence on Z99.2 Active 343914140 renal dialysis Problem Coronary artery I25.10 Active 4109583129405 disease involving kake coronary artery of kake heart, angina presence unspecified Problem End stage renal N18.6 Active 397231681 disease Problem Type 2 diabetes E11.29 Active 55812307 mellitus with other diabetic kidney complication Problem Hypothyroidism, E03.9 Active 44533239 unspecified type Problem HTN, goal below I10 Active 67860309 140/90 Problem Acute on chronic I50.23 Active 668445360 systolic congestive heart failure Problem NSTEMI (non-ST I21.4 Active 50440262 elevated myocardial infarction) ALLERGIES No Known Allergies ENCOUNTERS from 1955 to 2020-08-18 Encounter Location Date Provider Diagnosis [facility] [address], [place] [address] IMMUNIZATIONS No Information SOCIAL HISTORY Tobacco Use: Social History Observation Description Date Details (start date - stop date) Never Smoker Sex Assigned At : Social History Observation Description Sex Assigned At Unknown Alcohol Screen Question Answer Notes Did you have a drink containing alcohol in the past year? No Points 0 Interpretation Negative Tobacco Use/Smoking Question Answer Notes Are you a never smoker REASON FOR REFERRAL No Information VITAL SIGNS No information MEDICATIONS Medication SIG (Take, Route, Start Date End Date Status Frequency, Duration) Clopidogrel Bisulfate 75 MG 1 tablet Orally Once a day Active for 90 days Synthroid 88 MCG 1 tablet on an empty Act ailyn stomach in the morning Orally Once a day for 90 Atorvastatin Calcium 40 MG 1 tablet Orally Once a day Active for 90 Tradjenta 5 MG 1 tablet Orally Once a day Active for 90 Atorvastatin Calcium 80 MG TAKE 1 TABLET BY MOUTH AT Active BEDTIME for 30 Midodrine HCl 10 MG 1 tablet Orally Take 1 tab Active before dialysis Lantus SoloStar 100 UNIT/ML as directed Subcutaneous Active Lorazepam 0.5 MG 1 tablet as needed Orally Not-Taking every 8 hrs Aspirin 81 81 MG 1 tablet Orally Once a day Active Aspirin 81 MG TAKE 1 TABLET BY MOUTH Not- Taking EVERY DAY for 30 Senna 8.6 MG 2 tablets at bedtime as Not- Taking needed Orally Once a day Basaglar KwikPen 100 inject 10 units Acti ve UNIT/ML Subcutaneous once day for 30 days PROCEDURES No Information RESULTS No Results REASON FOR VISIT COLOLGUARD NEGATIVE 07/09/20 MEDICAL (GENERAL) HISTORY Type Description Date Medical History Systolic congestive heart failure, unspe cified HF chronicity Medical History Coronary artery disease involving kake coronary artery of kake heart, angina presence unspeci fied Medical History half-way current use of insulin Medical History Type 2 diabetes mellitus with other diab etic kidney complication Medical History Type 2 diabetes mellitus with hyperglyce anum Medical History CKD (chronic kidney disease), stage III Medical History Mixed hyperlipidemia Medical History Orthostatic hypotension Medical History Anemia, unspecified type Medical History Stented coronary artery Medical History Hypothyroidism, unspecified type Surgical History Stents Surgical History CABG 3V- [facility] 06/2019 Goals Section No Information Health Concerns No Information MEDICAL EQUIPMENT No Information MENTAL STATUS No Information FUNCTIONAL STATUS No Information ASSESSMENTS No Information PLAN OF TREATMENT Next Appt Details Provider Name:Jack Corley, 2020-09-22 0 9:45:00 AM, [address], [place], [address], Provider Name:Jack Corley, 2020-09-29 0 2:00:00 PM, [address], [place], [address], Insurance Providers Payer Name Payer Address Payer Insured Patient Coverage Cover age Phone Name Relationship to Start Date End Date Insured MEDICARE Attn Part B [id number] John Villalpando self [facility] Claims [address] [facility] [address] [facility] [address] [address] [phone] John Villalpando self [facility] [address] [id number]
--- OUTSIDE RECORDS SUMMARY | 2020-11-14 13:38 | XMS REPORT ---
:1955 Author Organization [facility] Address [address] [place], [address] [place] [address] Care Team Providers Name Role Phone Corley Unavailable [phone] PROBLEMS Type Condition ICD9-CM [id number] Onset Condition SNOMED Code Notes Code Code Dates Status Problem Mixed E78.2 Active 050318525 hyperlipidemia Problem History of fall Z91.81 Active 118905492 Problem Stented coronary Z95.5 Active 833419591 artery Problem prison current Z79.4 Active 560833592 use of insulin Problem Type 2 diabetes E11.65 Active 279702081946365 mellitus with hyperglycemia Problem Orthostatic I95.1 Active 39590350 hypotension Problem Anemia, D64.9 Active 120722584 unspecified type Problem CKD (chronic N18.3 Active 354306459 kidney disease), stage III Problem Systolic I50.20 Active 715011012 congestive heart failure, unspecified HF chronicity Problem Dependence on Z99.2 Active 262704785 renal dialysis Problem Coronary artery I25.10 Active 0624012696019 disease involving ruby coronary artery of ruby heart, angina presence unspecified Problem End stage renal N18.6 Active 173633299 disease Problem Type 2 diabetes E11.29 Active 39553371 mellitus with other diabetic kidney complication Problem Hypothyroidism, E03.9 Active 67301093 unspecified type Problem HTN, goal below I10 Active 85018210 140/90 Problem Acute on chronic I50.23 Active 407751104 systolic congestive heart failure Problem NSTEMI (non-ST I21.4 Active 81468332 elevated myocardial infarction) ALLERGIES No Known Allergies ENCOUNTERS from 1955 to 2020-10-08 Encounter Location Date Provider Diagnosis Nabila Duong [address], [facility] Corley Type [address] [place], [place] [address] diabetic kidne y complication E1 1.29 ; S/P CABG x 3 Z9 5.1 ; NSTEMI (non-ST elevated myocardial infa rction) I21.4 ; Systoli c congestive hear t failure, unspec ified HF chronicity I50. 20 ; Hypothyroidism, unspecified typ e E03.9 ; Mixed hyperli pidemia E78.2 ; Anemia, unspecified typ e D64.9 ; prison cur rent use of insulin Z79. 4 ; Coronary artery disease involving nativ e coronary artery of ruby heart, a ngina presence unspec ified I25.10 ; Stente d coronary artery Z95.5 ; Type 2 diabetes mellitus with hyperglycemia E 11.65 ; History of fall Z91.81 ; Proteinuria, unspecified typ e R80.9 ; Non complianc e w medication sirena men Z91.14 ; HTN, g oal below 140/90 I1 0 ; Dependence on r enal dialysis Z99.2 ; End stage renal dis ease N18.6 and Physi konrad debility R53.81 IMMUNIZATIONS No Information SOCIAL HISTORY Tobacco Use: [...] REASON FOR REFERRAL No Information VITAL SIGNS Height 64 in Oct, Weight 168.3 lbs Oct, Temperature 97.2 degrees Fahrenheit Oct, BMI 28.89 kg/m2 Oct, Oximetry 91 % Oct, Respiratory Rate 16 /min Oct, Blood pressure systolic 116 mm Hg Oct, Blood pressure diastolic 62 mm Hg Oct, MEDICATIONS Medication SIG (Take, Route, Notes Start Date End Date Status Frequency, Duration) Basaglar KwikPen 100 inject 10 units Active UNIT/ML Subcutaneous once day for 30 days Senna 8.6 MG 2 tablets at bedtime as Not-Taking needed Orally Once a day Atorvastatin Calcium 40 1 tablet Orally Once a Active MG day for 90 days Atorvastatin Calcium 80 TAKE 1 TABLET BY MOUTH Active MG AT BEDTIME for 30 Aspirin 81 MG TAKE 1 TABLET BY MOUTH Not-Taking EVERY DAY for 30 Synthroid 100 MCG 1 tablet on an empty Active stomach in the morning Orally Once a day for 90 days Lorazepam 0.5 MG 1 tablet as needed Not-Taking Orally every 8 hrs Aspirin 81 81 MG 1 tablet Orally Once a Active day Clopidogrel Bisulfate 75 1 tablet Orally Once a Active MG day for 90 days Tradjenta 5 MG 1 tablet Orally Once a Active day for 90 days Midodrine HCl 10 MG 1 tablet Orally Take 1 Active tab before dialysis Lantus SoloStar 100 as directed Subcutaneous Active UNIT/ML PROCEDURES No Information RESULTS No Results REASON FOR VISIT Follow up MEDICAL (GENERAL) HISTORY Type Description Date Medical History Systolic congestive heart failure, unspe cified HF chronicity Medical History Coronary artery disease involving ruby coronary artery of ruby heart, angina presence unspeci fied 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 of 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 Medical History Type 2 diabetes mellitus with other diab etic kidney complication Medical History Type 2 diabetes mellitus with hyperglyce anum Medical History CKD (chronic kidney disease), stage III Medical History Mixed hyperlipidemia Medical History Orthostatic hypotension Medical History Anemia, unspecified type Medical History Stented coronary artery Medical History Hypothyroidism, unspecified type Surgical History Stents Surgical History CABG 3V- [facility] 06/2019 Goals Section No Information Health Concerns No Information MEDICAL EQUIPMENT No Information MENTAL STATUS No Information FUNCTIONAL STATUS No Information ASSESSMENTS Encounter Date Diagnosis Assessment Notes Treatment Notes Treatm ent Clinical Notes Oct, Type 2 diabetes REDUCED Basaglar at mellitus with other 10 units to QD and diabetic kidney not BID. Education complication (ICD-10 given. Cont - E11.29) Tradjenta. Side effect panel discussd. Continues to be controlled will titrate insulin off as long with Tradjenta. Oct, S/P CABG x 3 (ICD-10 - Z95.1) Oct, NSTEMI (non-ST ENCOURAGED TO MAKE elevated myocardial APPT WITH CARDIO infarction) (ICD-10 JOHN. - I21.4) Oct, Systolic congestive Follow-up with heart failure, Cardio.Fluid and Na unspecified HF restriction. Daily chronicity (ICD-10 - weights. UNSURE I50.20) WHAT MEDICATION REGIMEN PATINT IS ON. Referral to cardiology per patient preference. Per [id number] was being evaluated for defibrillator. Oct, Hypothyroidism, INCREASED to 100 unspecified type mcg. Goal TSH 1-3. (ICD-10 - E03.9) Education given. Oct, Mixed hyperlipidemia Compliant. (ICD-10 - E78.2) Oct, Anemia, unspecified Will f/u with type (ICD-10 - . D64.9) Oct, prison current use of insulin (ICD-10 - Z79.4) Oct, Coronary artery Will make appt with disease involving Cardio. Education ruby coronary given. artery of ruby heart, angina presence unspecified (ICD-10 - I25.10) Oct, Stented coronary artery (ICD-10 - Z95.5) Oct, Type 2 diabetes mellitus with hyperglycemia (ICD-10 - E11.65) Oct, History of fall Fall precautions (ICD-10 - Z91.81) ficen. Oct, Proteinuria, Managed by Neprho. unspecified type Education given on (ICD-10 - R80.9) better glucose control. Oct, Non compliance w Educated on the medication regimen importance of (ICD-10 - Z91.14) compliance. Oct, HTN, goal below DASH Diet 140/90 (ICD-10 - discussed. I10) Instructed to measure BP at home and bring in log to f/u appt. Instructions and logs given. Education given. Oct, Dependence on renal dialysis (ICD-10 - Z99.2) Oct, End stage renal . Managed by disease (ICD-10 - nephrology N18.6) Oct, Physical debility . Discussed home (ICD-10 - R53.81) health PT Oct, Other -- Medication reviewed and updated. -- Dietary and Lifestyle modifications addressed regarding diet, exercise and weight managemen t. -- Treatment options, risks and benefits, side effects reviewed in detail. -- Advised on signs/symptoms to monitor and when to call clinic and/or visit the nearest ER. Patient verbalized understanding and agreeable with plan. PLAN OF TREATMENT Medication Medication Name Sig Start Date Stop Date Basaglar KwikPen 100 UNIT/ML inject 10 units Subcutaneous once day for 30 days Tradjenta 5 MG 1 tablet Orally Once a day for 90 days Synthroid 100 MCG 1 tablet on an empty stomach in the morning Orally Once a day for 90 days Aspirin 81 81 MG 1 tablet Orally Once a day Clopidogrel Bisulfate 75 MG 1 tablet Orally Once a day for 90 days Atorvastatin Calcium 40 MG 1 tablet Orally Once a day for 90 days Treatment Notes Assessment Notes Clinical Notes Type 2 diabetes mellitus with other REDUCED Basaglar at 10 u nits to QD diabetic kidney complication and not BID. Education given. Cont Tradjenta. Side effect panel discussd. Continues to be controlled will titrate insulin off as long with Tradjenta. Physical debility . Discussed home health PT NSTEMI (non-ST elevated myocardial ENCOURAGED TO MAKE APPT W ITH infarction) CARDIO JOHN. Systolic congestive heart failure, Follow-up with Cardio.Flu id and Na unspecified HF chronicity restriction. Daily weights. UNSURE WHAT MEDICATION REGIMEN PATINT IS ON. Referral to cardiology per patient preference. Per [id number] was being evaluated for defibrillator. Hypothyroidism, unspecified type INCREASED to 100 mcg. Goal TSH 1-3. Education given. Mixed hyperlipidemia Compliant. Anemia, unspecified type Will f/u with . Coronary artery disease involving Will make appt with Cardio . ruby coronary artery of ruby Education given. heart, angina presence unspecified End stage renal disease . Managed by nephrology HTN, goal below 140/90 DASH Diet discussed. Instructed to measure BP at home and bring in log to f/u appt. Instructions and logs given. Education given. History of fall Fall precautions ficen. Proteinuria, unspecified type Managed by Neprho. Education g iven on better glucose control. Non compliance w medication regimen Educated on the importan ce of compliance. Treatment Notes Test Name Order Date CBC With Differential/Platelet 2020-10-08 Lipid Panel With LDL/HDL Ratio 2020-10-08 Ferritin, Serum 2020-10-08 Microalbumin/Creat Ratio, Random Ur 2020-10-08 Hematopath Consultation, Smear 2020-10-08 Hemoglobin A1c 2020-10-08 Comp. Metabolic Panel (14) (CMP) 2020-10-08 TSH reflex to T4F 2020-10-08 Next Appt Details 3 Months + Labs 1 week before Reason: Provider Name:Jack Corley, 2020-12-31 1 1:00:00 AM, [address], [place], [address], Provider Name:Jack Corley, 2021-01-07 0 1:00:00 PM, [address], [place], [address], Insurance Providers Payer Name Payer Address Payer Insured Patient Coverage Cover age Phone Name Relationship to Start Date End Date Insured MEDICARE Attn Part B [id number] John Villalpando self [employer] Claims [address] [place] [address] [facility] [address] [address] [phone] John Villalpando self [facility] [address] [phone]
--- OUTSIDE RECORDS SUMMARY | 2020-11-14 13:38 | XMS REPORT | Continuity of Care Document ---
:1955 Author Organization [facility] t Address [address] [place] [address] Care Team Providers Name Role Phone MARY HEWITT Attending Clinician Unavailable RODRIGUE Attending Clinician Unavailable Graciela HEWITT Admitting Clinician Unavailable Payers Payer Name Policy Type Policy Number Effective Date Expiration Date S ource Advance Directives Directive Decision Effective Date Termination Date Comments Sour ce Partial Code This Yes 2019-05-26 2019-06-15 KAI Tovar - code status was 00:00:00 00:00:00 Medical C enter determined by: Other (please list) Discussion between patient, as well as DPOA's Brian ginger AmayaYaneli (son and [id number]) Drug Protocol After Arrest Occurs? No Mechanical Ventilation with Intubation? Yes Bag/Mask? Yes Internal/External Pacemaker? Yes Transfer to Critical Care? Yes Chest Compressions? No Defibrillation/Card ioversion? Yes Problems Condition Condition Condition Status Onset Resolution Last Treating Co mments Source Name Details Category Date Date Treatment Clinician Date Cardiogeni Cardiogeni Disease Active [facility] shock [facility] shock 05-25 [facility]: Medical 00 [place] ESRD (end ESRD (end Disease Active [facility] - renal renal Medical disease) disease) Center Allergies, Adverse Reactions, Alerts Allergy Allergy Status Severity Reaction(s) Onset Inactive Treating Comm ents Source Name Type Date Date Clinician No Known DA Active [facility] Allergie 5-16 Clear s 00:00: [place] 00 [facility] Social History Social Habit Start Date Stop Date Quantity Comments Source History [facility] Std Dr[facility] History SDLA [facility] - Alcohol Binge Medical Alanna ter Sex Assigned At [facility] kes - [facility] Alcohol intake 2019-05-25 2019-05-25 [facility]00 non-drinker of Medical Ce nter alcohol (finding) History [facility] 2019-05-25 2019-05-25 [address] [facility] - Alcohol Frequency 00:00:00 00:00:00 [facility] History of tobacco 1978-11-[address] [facility] use 00:00:00 [facility] Smoking Status Start Date Stop Date Source Former smoker 2019-05-25 00:00:00 2019-05-25 00:00:00 [facility] Medications Ordered Filled Start Stop Current Ordering Indication Dosage Frequency Signature Comments Components Source Medication Medication Date Date Medication? Clinician (SIG) Name Name senraphael Yes 2{tbl} QD Take [address] (SENOKOT) 8-09 tablets by Luke s - 8.6 mg 19:49: mouth Medical tablet 35 daily. [place] linaGLIPtin Yes 5mg QD Take [address] (TRADJENTA) 8-09 by mouth Luke s - 5 mg Tab 19:49: daily. [address] aspirin 81 Yes 81mg QD Take [address] MG chewable 8-09 by mouth Luke s - tablet 19:49: daily. [address] atorvastati Yes 80mg QD Take [address] n (LIPITOR) 8-09 by mouth Luke s - 80 MG 19:49: daily. Medical tablet 34 [place] clopidogrel Yes 75mg QD Take [address] (PLAVIX) 75 8-09 by mouth Luke s - mg tablet 19:49: daily. Medica l 34 Center levothyroxi Yes 88ug Take [address] ne 8-09 mcg by Lukes - (SYNTHROID, 19:49: mouth Medic al LEVOTHROID) 34 Every Center 88 MCG morning on tablet an empty stomach. midodrine Yes Three [facility] (PROAMATINE 8- times a [facility] - ) 10 MG 00:00: week Medical tablet 00 before Center dialysis. ferrous 2019- No 325mg Q.5D Take [address] sulfate 325 06-15 tablet [facility] - (65 FE) MG 00:00: 23:59 (325 mg Med ical tablet 00 :00 total) by Center mouth 2 (two) times daily. insulin 2019- No 10U QD Inject [address] detemir 06-15 Units [facility] - U-100 00:00: 23:59 subcutaneo Medic al (LEVEMIR) 00 :00 ly Center 100 unit/mL daily. injection gabapentin 2019- No 100mg QD Take [address] (NEURONTIN) 06-08 capsule Luke s - 100 MG 00:00: 23:59 (100 mg Medical capsule 00 :00 total) by Center mouth nightly. acetaminoph 2019- No 650mg Take [address] en 06-08 tablets [facility] - (TYLENOL) 00:00: 23:59 (650 mg Medi konrad 325 MG 00 :00 total) by Center tablet mouth every 4 (four) hours as needed for up to 360 days. Aspirin 81 Aspirin 81 Yes Jack [address] [facility] Clopidogrel Clopidogrel Yes Jack [address] Bisulfate Bisulfate [facility] Basaglrocco Basaglrocco Yes Jack inject [address] KwikPen KwikPen [place] units [facility] Tradjenta Tradjenta Yes Jack [address] [facility] Senna Senna Yes Jack [address] [place] at bedtime [facility] - as needed [facility]oria l Outpat[facility] ent Clinics Lantus Lantus Yes Jack as [facility] SoloStar SoloStar [place] directed [facility] - [facility] Clinics Aspirin Aspirin Yes Jack TAKE 1 [facility] [place] TABLET BY [facility] - MOUTH Memoria EVERY DAY l Outpati ent Clinics Atorvastati Atorvastati Yes Jack TAKE [address] [facility] [facility] n Calcium n Calcium [place] TABLET BY [facility] - MOUTH AT Memoria BEDTIME l Outpati ent Clinics Midodrine Midodrine Yes Jack [address] HCl HCl [facility] Lorazepam Lorazepam Yes Jack [address] [facility] [place] as needed [facility] Synthroid Synthroid Yes Jack [address] [facility] [facility] [place] on an [facility] - empty Memoria stomach in l the Outpati morning ent Clinics Atorvastati Atorvastati Yes Jack [address] [facility] n Calcium n Calcium [place] [facility] Procedures This patient has no known procedures. Plan of Care Planned Activity Planned Date Details Comments Source Future Scheduled 2020-07-08 INFLUENZA VACCINE (#1) [facility] Test 00:00:00 [code = INFLUENZA Medical Ce nter VACCINE (#1)] Future Scheduled 2019-11-[address] [facility] - Test 00:00:00 WELLNESS (YEAR 2 or Medical Center FIRST YEAR if no IPPE) [code = MEDICARE ANNUAL WELLNESS (YEAR 2 or FIRST YEAR if no IPPE)] Future Scheduled 2018 PNEUMOCOCCAL 65+ [facility] - Test 00:00:00 (1 of 1 - Medical Center [id number] PCV13) [code = PNEUMOCOCCAL 65+ YRS (1 of 1 - [id number] PCV13)] Future Scheduled [address] [facility] Bas[facility] es - Test 00:00:00 malignant neoplasm of Medica Center colon (procedure) [code = 650235798] Encounters Start End Encounter Admission Attending Care Care Encounter Source Date/Time Date/Time Type Type Clinicians Facility Department ID 2019-05-04 Inpatient [facility] [address] [facility] 17:34:38 2020-11-10 2020-11-10 Outpatient [facility] [id number] [facility] 2020-10-08 2020-10-08 [facility] [id number] 2020-08-15 2020-08-15 [facility] [id number] 2020-06-25 2020-06-25 [facility] [id number] 15:00:00 15:00:00 [place] [facility] - [facility] Medicine Medicine Outpati ent Clinics 2020-06-25 2020-06-25 [facility] [id number] 15:00:00 15:00:00 [place] [employer] (formerly [employer]) s - [facility] Medicine Outpati ent Clinics 2020-03-12 2020-03-12 [facility] [id number] 13:45:00 13:45:00 [place] [employer] ([employer] s - [facility] Medicine Outpati ent Clinics 2019-12-10 2019-12-10 [facility] [id number] 13:30:00 13:30:00 [place] [employer] s - [facility] Medicine Outpati ent Clinics 2019-09-26 2019-09-26 [facility] [id number] 08:23:00 08:23:00 [place] [employer] ([employer]) s - [facility] Medicine Outpati ent Clinics 2019-09-20 2019-09-20 [facility] [id number] 16:58:00 16:58:00 [place] [employer] s [employer] [facility] Medicine Outpati ent Clinics 2019-08-10 2019-08-10 [facility] [id number] 09:15:00 09:15:00 [place] [employer] s [employer] [facility] Medicine Outpati ent Clinics 2019-07-11 2019-07-11 [facility] [id number] 16:55:00 16:55:00 [place] [employer] ([employer] s - Drive [facility] Medicine Outpati ent Clinics 2019-07-11 2019-07-11 [facility] [id number] 10:15:00 10:15:00 [place]do [employer] s - Drive [facility] Medicine Outpati ent Clinics 2019-07-06 2019-07-06 [facility] [id number] 16:41:00 16:41:00 [place] s - Drive [facility] Medicine Outpati ent Clinics 2019-05-04 2019-05-04 Inpatient E [facility] 12:18:00 10:21:00 2019-05-04 2019-05-04 Appointmen RODRIGUE, [facility] Cardiothhazleton [id number] [facility] 09:00:00 09:00:00 t; speedy MAE & zohreh of Allen HUSAIN Vascular Reinier MAE, Yvonne - Physic i [facility] 2019-04-20 2019-04-20 [facility] [id number] 09:30:00 09:30:00 [place] [employer] s - Drive [facility] Medicine Outpati ent Clinics 2019-02-27 2019-02-27 [facility] [id number] 10:00:00 10:00:00 [place] [employer] [place] - Drive [facility] Medicine Outpati ent Clinics 2019-01-24 2019-01-24 [facility] [id number] 10:45:00 10:45:00 [place] [employer] s - Drive [facility] Medicine Outpati ent Clinics 2019-01-10 2019-01-10 [facility] [id number] 07:54:00 07:54:00 [place] [employer] - Drive [facility] Medicine Outpati ent Clinics 2018-11-15 2018-11-15 [facility] [id number] 10:00:00 10:00:00 [place] [employer] - Drive [facility] Medicine Outpati ent Clinics 2018-10-12 2018-10-12 [facility] [id number] 15:00:00 15:00:00 t Specialty/U [facility] - Specialty rology Memori [facility] /Urology Clinic l Clinic Outpati ent Clinics 2018-05-08 2018-05-08 [facility] [id number] 08:20:00 08:20:00 t Weft s [employer] [facility] Medicine Outpati ent Clinics 2018-05-01 2018-05-01 Out[facility] [id number] 08:46:00 08:46:00 [place] [employer] s - [facility] Medicine Outpati ent Clinics 2018-04-27 2018-04-27 [facility] [id number] 09:00:00 09:00:00 t Weft s - [facility] Medicine Outpati ent Clinics 2018-04-20 2018-04-20 [facility] [id number] 13:36:00 13:36:00 t [employer] [facility] Medicine Outpati ent Clinics 2018-04-12 2018-04-12 Out[facility] [id number] 16:11:00 16:11:00 t Weft s [employer] [facility] Medicine Outpati ent Clinics 2018-04-10 2018-04-10 Out[facility] [id number] 14:45:00 14:45:00 t [employer] [facility] Medicine Outpati ent Clinics Results Test Description Test Time Test Comments Results Result Comments Source GLUBED 2020-06-20 14:53:00 Test Item Value Reference Range Interpretation Comme nts GLUBED (test code = GLUBED) 117 MG/DL 70-110 H 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 [facility] BASIC METABOLIC [id number] 13:42:00 Test Item Value Reference Range Interpretation Comments SODIUM (test code = NA) 137 mEq/L 134-147 N POTASSIUM (test code = 3.5 mEq/L 3.4-5.0 N K) CHLORIDE (test code = 97 mEq/L 100-108 L CL) CARBON DIOXIDE (test 29 mEq/L 21-33 N code = CO2) ANION GAP (test code = 15 0-20 N GAP) GLUCOSE (test code = 130 mg/dL 70-110 H GLU) BLOOD UREA NITROGEN 19 mg/dL 7-18 H (test code = BUN) GLOMERULAR FILTRATION 16.5 80-90 L Units of measure = RATE (test code = GFR) ml/mi n/1.73 m2 CREATININE (test code = 3.7 mg/dL 0.6-1.3 H CREAT) CALCIUM (test code = 8.2 mg/dL 8.0-10.5 N CA) CBC W/AUTO [id number] 13:28:00 Test Item Value Reference Range Interpretation Comments WHITE BLOOD CELL (test code = 5.40 x10 3/uL 4.5-11.0 N WBC) RED BLOOD CELL (test code = 4.00 x10 6/uL 4.00-5.60 N RBC) HEMOGLOBIN (test code = HGB) 11.0 g/dL 12.5-16.9 L HEMATOCRIT (test code = HCT) 36.1 % 37.5-50.7 L MEAN CELL VOLUME (test code = 90.3 fL 81.0-99.0 N MCV) MEAN CELL HGB (test code = MCH) 27.5 pg 27.0-33.0 N MEAN CELL HGB CONCETRATION 30.5 g/dL 33.0-37.0 L (test code = MCHC) RED CELL DISTRIBUTION WIDTH CV 14.8 % 11.5-14.5 H (test code = RDW) RED CELL DISTRIBUTION WIDTH SD 48.8 fL 37.0-54.0 N (test code = RDW-SD) PLATELET COUNT (test code = 170 x10 3/uL 150-400 N PLT) MEAN PLATELET VOLUME (test code 11.1 fL 7.0-9.0 H = MPV) NEUTROPHIL % (test code = NT%) 77.3 % 56.0-77.0 H IMMATURE GRANULOCYTE % (test 0.6 % 0.0-2.0 N code = IG%) LYMPHOCYTE % (test code = LY%) 7.6 % 14.0-32.0 L MONOCYTE % (test code = MO%) 13.7 % 4.8-9.0 H EOSINOPHIL % (test code = EO%) 0.4 % 0.3-3.7 N BASOPHIL % (test code = BA%) 0.4 % 0.0-2.0 N NUCLEATED RBC % (test code = 0.0 % 0-0 N NRBC%) NEUTROPHIL # (test code = NT#) 4.18 x10 3/uL 2.0-7.6 N IMMATURE GRANULOCYTE # (test 0.03 x10 3/uL 0.00-0.03 N code = IG#) LYMPHOCYTE # (test code = LY#) 0.41 x10 3/uL 1.0-3.8 L MONOCYTE # (test code = MO#) 0.74 x10 3/uL 0.1-0.8 N EOSINOPHIL # (test code = EO#) 0.02 x10 3/uL 0.0-0.2 N BASOPHIL # (test code = BA#) 0.02 x10 3/uL 0.0-0.2 N NUCLEATED RBC # (test code = 0.00 x10 3/uL 0.0-0.1 N NRBC#) MANUAL DIFF REQUIRED (test code NO = MDIFF) [id number] 11:56:00 Test Item Value Reference Range Interpretation Comments GLUBED (test code = 132 MG/DL 70-110 H Performe d by certified GLUBED) 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 [facility] Novel Coronavirus 2019 [id number] 20:44:00 Test Item Value Reference Range Interpretation Comments Novel Coronavirus 2019 Inhouse (test Negative Negative code = COVNONPUI) - XR CHEST 2 [id number] 10:48:00 FAX: Espinoza Santillan MD [phone] Ald[place]: St: PRE Name: JANNTROY [facility] : 1955 Age/S: 64/M [address] [place] [address] Blvd Unit#: [id number] Loc: [place] [address] Phys: Espinoza Villa MD Acct: [id number] Dis Date: Status: PRE SDC PHONE #: [phone] Exam Date: 06/18/2020 0958 FAX #: [phone] Reason: PREOP- ESRD EXAMS: CPT CODE: [id number] XR CHEST 2 V [id number] CLINICAL HISTORY: PREOP- ESRD COMPARISON: March 22, 2018 PA and lateral films of the chest demonstrate sternotomy sutures as well as dialysis catheter in place. Tip of dialysis catheter is in right atrium. Cardiac silhouette is enlarged. There is evidence of bilateral pleural effusion. No evidence of pulmonary consolidation is seen. IMPRESSION: 1. Cardiomegaly. 2. Tip of dialysis catheter in right atrium. 3. Bilateral pleural effusions. at 1048 Reported and signed by:Panda Puente M.D. CC: Espinoza Villa MD Technologist: RT Paolo(Melodie) Trnscrd Date/Time/By: 06/18/2020 (9671) : By: Ivonne Orig Print D/T: S: 06/18/2020 (5060) PAGE 1 Signed ReportBASIC METABOLIC [id number] 09:12:00 Test Item Value Reference Range Interpretation Comments SODIUM (test code = NA) 138 mEq/L 134-147 N POTASSIUM (test code = 4.4 mEq/L 3.4-5.0 N K) CHLORIDE (test code = 101 mEq/L 100-108 N CL) CARBON DIOXIDE (test 30 mEq/L 21-33 N code = CO2) ANION GAP (test code = 12 0-20 N GAP) GLUCOSE (test code = 138 mg/dL 70-110 H GLU) BLOOD UREA NITROGEN 20 mg/dL 7-18 H (test code = BUN) GLOMERULAR FILTRATION 16.5 80-90 L Units of measure = RATE (test code = GFR) ml/mi n/1.73 m2 CREATININE (test code = 3.7 mg/dL 0.6-1.3 H CREAT) CALCIUM (test code = 8.0 mg/dL 8.0-10.5 N CA) PROTHROMBIN [id number] 09:06:00 Test Item Value Reference Range Interpretation Comments PROTHROMBIN TIME 12.9 SECONDS 9.3-12.9 N PATIENT (test code = PTP) INTERNATIONAL NORMAL 1.2 0.8-1.2 N TARGET RATIO (test code = INR BY IN DICATION INR) Indication INR1. Prophyl axis of venous thrombos is 2.0 - 3. 0 (orthopedic yung gaby), Prophylaxis of venous thrombos is (other than hig h-risk surgery), Kaitlin tment of Deep Vein Thrombosis/Pulm onary Embolism, Preve ntion of systemic emb olism - Tissue heart va lves, Acute Myocardia l Infarction (to prevent systemic embo lism), Valvular heart disease, Atri al Fibrillation, Bileaflet mecha nical valve in aortic position.2. Mec hanical prosthetic valv es (high risk), 2.5 - 3.5 Presence of Lupus Anticoagu lant or Antiphospholi pid Antibodies, Pre vention of systemic e mbolism - Acute Myocard ial Infarction (t o prevent recurre nt infarct). THROMBOPLASTIN TIME [id number] 09:06:00 Test Item Value Reference Range Interpretation Comments THROMBOPLASTIN TIME PARTIAL (test Seconds 25.0-39.5 code = PTT) PROTHROMBIN [id number] 09:06:00 Test Item Value Reference Range Interpretation Comments PROTHROMBIN TIME 12.9 SECONDS 9.3-12.9 N PATIENT (test code = PTP) INTERNATIONAL NORMAL 1.2 0.8-1.2 N TARGET RATIO (test code = INR BY IN DICATION INR) Indication INR1. Prophyl axis of venous thrombos is 2.0 - 3. 0 (orthopedic yung gaby), Prophylaxis of venous thrombos is (other than hig h-risk surgery), Kaitlin tment of Deep Vein Thrombosis/Pulm onary Embolism, Preve ntion of systemic emb olism - Tissue heart va lves, Acute Myocardia l Infarction (to prevent systemic embo lism), Valvular heart disease, Atri al Fibrillation, Bileaflet mecha nical valve in aortic position.2. Mec hanical prosthetic valv es (high risk), 2.5 - 3.5 Presence of Lupus Anticoagu lant or Antiphospholi pid Antibodies, Pre vention of systemic e mbolism - Acute Myocard ial Infarction (t o prevent recurre nt infarct). THROMBOPLASTIN TIME [id number] 09:06:00 Test Item Value Reference Range Interpretation Comments THROMBOPLASTIN TIME 37.2 Seconds 25.0-39.5 N Ther apeutic PARTIAL (test code = Range: 50.4 - 88.3 PTT) Seconds Effective 02/20/2019 CBC W/AUTO [id number] 08:58:00 Test Item Value Reference Range Interpretation Comments WHITE BLOOD CELL (test code = 5.59 x10 3/uL 4.5-11.0 N WBC) RED BLOOD CELL (test code = 4.02 x10 6/uL 4.00-5.60 N RBC) HEMOGLOBIN (test code = HGB) 11.2 g/dL 12.5-16.9 L HEMATOCRIT (test code = HCT) 37.1 % 37.5-50.7 L MEAN CELL VOLUME (test code = 92.3 fL 81.0-99.0 N MCV) MEAN CELL HGB (test code = MCH) 27.9 pg 27.0-33.0 N MEAN CELL HGB CONCETRATION 30.2 g/dL 33.0-37.0 L (test code = MCHC) RED CELL DISTRIBUTION WIDTH CV 14.8 % 11.5-14.5 H (test code = RDW) RED CELL DISTRIBUTION WIDTH SD 50.4 fL 37.0-54.0 N (test code = RDW-SD) PLATELET COUNT (test code = 174 x10 3/uL 150-400 N PLT) MEAN PLATELET VOLUME (test code 10.5 fL 7.0-9.0 H = MPV) NEUTROPHIL % (test code = NT%) 73.2 % 56.0-77.0 N IMMATURE GRANULOCYTE % (test 0.5 % 0.0-2.0 N code = IG%) LYMPHOCYTE % (test code = LY%) 8.9 % 14.0-32.0 L MONOCYTE % (test code = MO%) 16.1 % 4.8-9.0 H EOSINOPHIL % (test code = EO%) 1.1 % 0.3-3.7 N BASOPHIL % (test code = BA%) 0.2 % 0.0-2.0 N NUCLEATED RBC % (test code = 0.0 % 0-0 N NRBC%) NEUTROPHIL # (test code = NT#) 4.09 x10 3/uL 2.0-7.6 N IMMATURE GRANULOCYTE # (test 0.03 x10 3/uL 0.00-0.03 N code = IG#) LYMPHOCYTE # (test code = LY#) 0.50 x10 3/uL 1.0-3.8 L MONOCYTE # (test code = MO#) 0.90 x10 3/uL 0.1-0.8 H EOSINOPHIL # (test code = EO#) 0.06 x10 3/uL 0.0-0.2 N BASOPHIL # (test code = BA#) 0.01 x10 3/uL 0.0-0.2 N NUCLEATED RBC # (test code = 0.00 x10 3/uL 0.0-0.1 N NRBC#) MANUAL DIFF REQUIRED (test code NO = MDIFF) URINE [id number] 14:16:00 Test Item Value Reference Range Interpretation Comments CULTURE ([facility]) (test ESCHERICHIA COLI A 4 0-49,000 col/mL code = 1095) Escherichia coliESBL Positive Amikacin (test code = S 1) Ampicillin + Sulbactam R (test code = 6) Aztreonam (test code = R 32) Cefepime (test code = R 51) Cefoxitin (test code = R 68) Ceftazidime (test code R = 27) Ceftriaxone (test code R = 52) Ertapenem (test code = S 38) Gentamicin (test code R = 18) Levofloxacin (test R code = 22) Meropenem (test code = S 34) Nitrofurantoin (test S code = 23) Piperacillin + R Tazobactam (test code = 29) Tetracycline (test S code = 2) Tobramycin (test code R = 25) Trimethoprim + S Sulfamethoxazole (test code = 47) Piperacillin + Tazobactam (test code = 29) Tetracycline (test S code = 2) Tobramycin (test code R = 25) Trimethoprim + S Sulfamethoxazole (test code = 47) CULTURE ([facility]) (test A 80-89 ,000 col/mL code = 1095) Ekaterina albican s POCT-GLUCOSE [id number] 17:07:00 Test Item Value Reference Range Interpretation Comments POC-GLUCOSE METER 168 mg/dL 70-110 H TESTED AT [place] [address] ([facility]) (test code = [facility]) [id number] POCT-GLUCOSE [id number] 13:49:00 Test Item Value Reference Range Interpretation Comments POC-GLUCOSE METER 172 mg/dL 70-110 H TESTED AT [facility] 6720 (BEAKER) (test code = [place] 1538) [id number] BASIC METABOLIC [id number] 09:18:00 Test Item Value Reference Range Interpretation Comments SODIUM (BEAKER) 132 meq/L 136-145 L (test code = 381) POTASSIUM (BEAKER) 4.6 meq/L 3.5-5.1 (test code = 379) CHLORIDE (BEAKER) 96 meq/L 98-107 L (test code = 382) CO2 (BEAKER) (test 28 meq/L 22-29 code = 355) BLOOD UREA NITROGEN 35 mg/dL 7-21 H (BEAKER) (test code = 354) CREATININE (BEAKER) 4.05 mg/dL 0.57-1.25 H (test code = 358) GLUCOSE RANDOM 158 mg/dL 70-105 H (BEAKER) (test code = 652) CALCIUM (BEAKER) 8.2 mg/dL 8.4-10.2 L (test code = 697) EGFR (BEAKER) (test 15 mL/min/1.73 ESTIMA SOHAIL GFR IS code = 1092) sq m NOT ACCURATE CREATININE CLEARANCE IN PREDICTING GLOMERULAR FILTRATION RATE . ESTIMATED GFR I S NOT APPLICABLE FOR DIALYSIS PATIEN TS. CBC (HEMOGRAM ONLY)2019-06-15 08:10:00 Test Item Value Reference Range Interpretation Comments WHITE BLOOD CELL COUNT (BEAKER) 8.2 K/ L 3.5-10.5 (test code = 775) RED BLOOD CELL COUNT (BEAKER) 3.03 M/ L 4.63-6.08 L (test code = 761) HEMOGLOBIN (BEAKER) (test code = 8.5 GM/DL 13.7-17.5 L 410) HEMATOCRIT (BEAKER) (test code = 28.7 % 40.1-51.0 L 411) MEAN CORPUSCULAR VOLUME (BEAKER) 94.7 fL 79.0-92.2 H (test code = 753) MEAN CORPUSCULAR HEMOGLOBIN 28.1 pg 25.7-32.2 (BEAKER) (test code = 751) MEAN CORPUSCULAR HEMOGLOBIN CONC 29.6 GM/DL 32.3-36.5 L (BEAKER) (test code = 752) RED CELL DISTRIBUTION WIDTH 18.1 % 11.6-14.4 H (BEAKER) (test code = 412) PLATELET COUNT (BEAKER) (test 254 K/CU MM 150-450 code = 756) MEAN PLATELET VOLUME (BEAKER) 9.9 fL 9.4-12.4 (test code = 754) NUCLEATED RED BLOOD CELLS 1 /100 WBC 0-0 H (BEAKER) (test code = 413) POCT-GLUCOSE [id number] 21:43:00 Test Item Value Reference Range Interpretation Comments POC-GLUCOSE METER 175 mg/dL 70-110 H TESTED AT [place] [address] ([facility] (test code = [facility] 1538) [id number] POCT-GLUCOSE [id number] 12:42:00 Test Item Value Reference Range Interpretation Comments POC-GLUCOSE METER 113 mg/dL 70-110 H TESTED AT [place] [address] ([facility]) (test code = [facility] 1538) [address] BASIC METABOLIC [id number] 08:22:00 Test Item Value Reference Range Interpretation Comments SODIUM (BEAKER) 131 meq/L 136-145 L (test code = 381) POTASSIUM (BEAKER) 4.7 meq/L 3.5-5.1 (test code = 379) CHLORIDE (BEAKER) 96 meq/L 98-107 L (test code = 382) CO2 (BEAKER) (test 28 meq/L 22-29 code = 355) BLOOD UREA NITROGEN 44 mg/dL 7-21 H (BEAKER) (test code = 354) CREATININE (BEAKER) 4.59 mg/dL 0.57-1.25 H (test code = 358) GLUCOSE RANDOM 133 mg/dL 70-105 H (BEAKER) (test code = 652) CALCIUM (BEAKER) 8.2 mg/dL 8.4-10.2 L (test code = 697) EGFR (BEAKER) (test 13 mL/min/1.73 ESTIMA SOHAIL GFR IS code = 1092) sq m NOT ACCURATE CREATININE CLEARANCE IN PREDICTING GLOMERULAR FILTRATION RATE . ESTIMATED GFR I S NOT APPLICABLE FOR DIALYSIS PATIEN TS. CBC (HEMOGRAM ONLY)2019-06-14 08:04:00 Test Item Value Reference Range Interpretation Comments WHITE BLOOD CELL COUNT (BEAKER) 8.2 K/ L 3.5-10.5 (test code = 775) RED BLOOD CELL COUNT (BEAKER) 2.97 M/ L 4.63-6.08 L (test code = 761) HEMOGLOBIN (BEAKER) (test code = 8.4 GM/DL 13.7-17.5 L 410) HEMATOCRIT (BEAKER) (test code = 28.4 % 40.1-51.0 L 411) MEAN CORPUSCULAR VOLUME (AKER) 95.6 fL 79.0-92.2 H (test code = 753) MEAN CORPUSCULAR HEMOGLOBIN 28.3 pg 25.7-32.2 (BEAKER) (test code = 751) MEAN CORPUSCULAR HEMOGLOBIN CONC 29.6 GM/DL 32.3-36.5 L (BEAKER) (test code = 752) RED CELL DISTRIBUTION WIDTH 17.8 % 11.6-14.4 H (AKER) (test code = 412) PLATELET COUNT ([facility]) (test 306 K/CU MM 150-450 code = 756) MEAN PLATELET VOLUME (AKER) 9.9 fL 9.4-12.4 (test code = 754) NUCLEATED RED BLOOD CELLS 0 /100 WBC 0-0 ([facility]) (test code = 413) POCT-GLUCOSE [id number] 21:40:00 Test Item Value Reference Range Interpretation Comments POC-GLUCOSE METER 159 mg/dL 70-110 H TESTED AT [place] [address] ([facility]) (test code = CIERA Sewell [facility] 1538) [id number] POCT-GLUCOSE [id number] 17:24:00 Test Item Value Reference Range Interpretation Comments POC-GLUCOSE METER 203 mg/dL 70-110 H TESTED AT [place] [address] ([facility]) (test code = CIERA Sewell [facility] 1538) [id number] POCT-GLUCOSE [id number] 13:17:00 Test Item Value Reference Range Interpretation Comments POC-GLUCOSE METER 201 mg/dL 70-110 H TESTED AT [place] [address] ([facility]) (test code = ICERA Sewell [facility] 1538) [address] POCT-GLUCOSE [id number] 08:11:00 Test Item Value Reference Range Interpretation Comments POC-GLUCOSE METER 199 mg/dL 70-110 H TESTED AT [place] [address] ([facility]) (test code = CIERA Sewell [facility] 1538) [id number] BASIC METABOLIC [id number] 07:40:00 Test Item Value Reference Range Interpretation Comments SODIUM (BEAKER) 132 meq/L 136-145 L (test code = 381) POTASSIUM (BEAKER) 4.3 meq/L 3.5-5.1 (test code = 379) CHLORIDE (BEAKER) 98 meq/L 98-107 (test code = 382) CO2 (BEAKER) (test 25 meq/L 22-29 code = 355) BLOOD UREA NITROGEN 33 mg/dL 7-21 H (BEAKER) (test code = 354) CREATININE (BEAKER) 3.66 mg/dL 0.57-1.25 H (test code = 358) GLUCOSE RANDOM 129 mg/dL 70-105 H (BEAKER) (test code = 652) CALCIUM (BEAKER) 8.5 mg/dL 8.4-10.2 (test code = 697) EGFR (BEAKER) (test 17 mL/min/1.73 ESTIMA SOHAIL GFR IS code = 1092) sq m NOT ACCURATE CREATININE CLEARANCE IN PREDICTING GLOMERULAR FILTRATION RATE . ESTIMATED GFR I S NOT APPLICABLE FOR DIALYSIS PATIEN TS. CBC (HEMOGRAM ONLY)2019-06-13 06:23:00 Test Item Value Reference Range Interpretation Comments WHITE BLOOD CELL COUNT (BEAKER) 9.7 K/ L 3.5-10.5 (test code = 775) RED BLOOD CELL COUNT (BEAKER) 3.06 M/ L 4.63-6.08 L (test code = 761) HEMOGLOBIN (BEAKER) (test code = 8.7 GM/DL 13.7-17.5 L 410) HEMATOCRIT (BEAKER) (test code = 29.2 % 40.1-51.0 L 411) MEAN CORPUSCULAR VOLUME (BEAKER) 95.4 fL 79.0-92.2 H (test code = 753) MEAN CORPUSCULAR HEMOGLOBIN 28.4 pg 25.7-32.2 (BEAKER) (test code = 751) MEAN CORPUSCULAR HEMOGLOBIN CONC 29.8 GM/DL 32.3-36.5 L (BEAKER) (test code = 752) RED CELL DISTRIBUTION WIDTH 18.0 % 11.6-14.4 H (BEAKER) (test code = 412) PLATELET COUNT (BEAKER) (test 325 K/CU MM 150-450 code = 756) MEAN PLATELET VOLUME (BEAKER) 10.1 fL 9.4-12.4 (test code = 754) NUCLEATED RED BLOOD CELLS 0 /100 WBC 0-0 (BEAKER) (test code = 413) POCT-GLUCOSE [id number] 23:55:00 Test Item Value Reference Range Interpretation Comments POC-GLUCOSE METER 198 mg/dL 70-110 H TESTED AT [place] [address] ([facility]) (test code = CIERA Sewell [place] 1538) [address] POCT-GLUCOSE [id number] 22:53:00 Test Item Value Reference Range Interpretation Comments POC-GLUCOSE METER 205 mg/dL 70-110 H TESTED AT [place] [address] ([facility]) (test code = CIERA Sewell [place] 1538) [address] POCT-GLUCOSE [id number] 18:28:00 Test Item Value Reference Range Interpretation Comments POC-GLUCOSE METER 252 mg/dL 70-110 H TESTED AT [place] [address] ([facility]) (test code = CIERA Sewell [place] 1538) [address] POCT-GLUCOSE [id number] 13:01:00 Test Item Value Reference Range Interpretation Comments POC-GLUCOSE METER 118 mg/dL 70-110 H TESTED AT [place] [address] ([facility]) (test code = [facility] Melodie [place] 1538) [address] BASIC METABOLIC [id number] 07:03:00 Test Item Value Reference Range Interpretation Comments SODIUM (BEAKER) 134 meq/L 136-145 L (test code = 381) POTASSIUM (BEAKER) 4.9 meq/L 3.5-5.1 (test code = 379) CHLORIDE (BEAKER) 100 meq/L 98-107 (test code = 382) CO2 (BEAKER) (test 27 meq/L 22-29 code = 355) BLOOD UREA NITROGEN 41 mg/dL 7-21 H (BEAKER) (test code = 354) CREATININE (BEAKER) 4.35 mg/dL 0.57-1.25 H (test code = 358) GLUCOSE RANDOM 141 mg/dL 70-105 H (BEAKER) (test code = 652) CALCIUM (BEAKER) 8.0 mg/dL 8.4-10.2 L (test code = 697) EGFR (BEAKER) (test 14 mL/min/1.73 ESTIMA SOHAIL GFR IS code = 1092) sq m NOT ACCURATE CREATININE CLEARANCE IN PREDICTING GLOMERULAR FILTRATION RATE . ESTIMATED GFR I S NOT APPLICABLE FOR DIALYSIS PATIEN TS. POCT-GLUCOSE [id number] 21:53:00 Test Item Value Reference Range Interpretation Comments POC-GLUCOSE METER 189 mg/dL 70-110 H TESTED AT [facility] 67 (BEAKER) (test code = [facility] 1538) [address] POCT-GLUCOSE [id number] 18:21:00 Test Item Value Reference Range Interpretation Comments POC-GLUCOSE METER 207 mg/dL 70-110 H TESTED AT [place] [id number] (BEAKER) (test code = [facility] 1538) [address] POCT-GLUCOSE [id number] 12:36:00 Test Item Value Reference Range Interpretation Comments POC-GLUCOSE METER 95 mg/dL 70-110 TESTED AT [place] [address] (BEAKER) (test code = [facility] [address] 1538) BASIC METABOLIC [id number] 09:00:00 Test Item Value Reference Range Interpretation Comments SODIUM (BEAKER) 131 meq/L 136-145 L (test code = 381) POTASSIUM (BEAKER) 4.9 meq/L 3.5-5.1 (test code = 379) CHLORIDE (BEAKER) 97 meq/L 98-107 L (test code = 382) CO2 (BEAKER) (test 24 meq/L 22-29 code = 355) BLOOD UREA NITROGEN 59 mg/dL 7-21 H (BEAKER) (test code = 354) CREATININE (BEAKER) 5.71 mg/dL 0.57-1.25 H (test code = 358) GLUCOSE RANDOM 99 mg/dL 70-105 (BEAKER) (test code = 652) CALCIUM (BEAKER) 8.4 mg/dL 8.4-10.2 (test code = 697) EGFR (BEAKER) (test 10 mL/min/1.73 ESTIMA SOHAIL GFR IS code = 1092) sq m NOT ACCURATE CREATININE CLEARANCE IN PREDICTING GLOMERULAR FILTRATION RATE . ESTIMATED GFR I S NOT APPLICABLE FOR DIALYSIS PATIEN TS. CBC (HEMOGRAM ONLY)2019-06-11 07:20:00 Test Item Value Reference Range Interpretation Comments WHITE BLOOD CELL COUNT (BEAKER) 9.9 K/ L 3.5-10.5 (test code = 775) RED BLOOD CELL COUNT (BEAKER) 3.13 M/ L 4.63-6.08 L (test code = 761) HEMOGLOBIN (BEAKER) (test code = 8.8 GM/DL 13.7-17.5 L 410) HEMATOCRIT (BEAKER) (test code = 30.3 % 40.1-51.0 L 411) MEAN CORPUSCULAR VOLUME (BEAKER) 96.8 fL 79.0-92.2 H (test code = 753) MEAN CORPUSCULAR HEMOGLOBIN 28.1 pg 25.7-32.2 (BEAKER) (test code = 751) MEAN CORPUSCULAR HEMOGLOBIN CONC 29.0 GM/DL 32.3-36.5 L (BEAKER) (test code = 752) RED CELL DISTRIBUTION WIDTH 18.0 % 11.6-14.4 H (AKER) (test code = 412) PLATELET COUNT ([facility]) (test 355 K/CU MM 150-450 code = 756) MEAN PLATELET VOLUME (AKER) 9.9 fL 9.4-12.4 (test code = 754) NUCLEATED RED BLOOD CELLS 1 /100 WBC 0-0 H ([facility]) (test code = 413) POCT-GLUCOSE [id number] 21:13:00 Test Item Value Reference Range Interpretation Comments POC-GLUCOSE METER 125 mg/dL 70-110 H TESTED AT [place] [address] ([facility]) (test code = CIERA Sewell [place] [address]) [address] POCT-GLUCOSE [id number] 13:58:00 Test Item Value Reference Range Interpretation Comments POC-GLUCOSE METER 150 mg/dL 70-110 H TESTED AT [place] [address] ([facility]) (test code = CIERA Sewell [facility] 1538) 8[address] POCT-GLUCOSE [id number] 09:25:00 Test Item Value Reference Range Interpretation Comments POC-GLUCOSE METER 67 mg/dL 70-110 L Notified Melodie Davila MD/TESTED AT ([facility]) (test code = [address] 1538) [facility] [address] POCT-GLUCOSE [id number] 09:25:00 Test Item Value Reference Range Interpretation Comments POC-GLUCOSE METER 65 mg/dL 70-110 L Notified Melodie Davila MD/TESTED AT ([facility]) (test code = [place] [address] [place] 1538) [place] [address] BASIC METABOLIC [id number] 07:54:00 Test Item Value Reference Range Interpretation Comments SODIUM (BEAKER) 133 meq/L 136-145 L (test code = 381) POTASSIUM (BEAKER) 5.0 meq/L 3.5-5.1 (test code = 379) CHLORIDE (BEAKER) 98 meq/L 98-107 (test code = 382) CO2 (BEAKER) (test 24 meq/L 22-29 code = 355) BLOOD UREA NITROGEN 43 mg/dL 7-21 H (BEAKER) (test code = 354) CREATININE (BEAKER) 4.69 mg/dL 0.57-1.25 H (test code = 358) GLUCOSE RANDOM 75 mg/dL 70-105 (BEAKER) (test code = 652) CALCIUM (BEAKER) 8.4 mg/dL 8.4-10.2 (test code = 697) EGFR (BEAKER) (test 13 mL/min/1.73 ESTIMA SOHAIL GFR IS code = 1092) sq m NOT ACCURATE CREATININE CLEARANCE IN PREDICTING GLOMERULAR FILTRATION RATE . ESTIMATED GFR I S NOT APPLICABLE FOR DIALYSIS PATIEN TS. CBC (HEMOGRAM ONLY)2019-06-10 05:50:00 Test Item Value Reference Range Interpretation Comments WHITE BLOOD CELL COUNT (BEAKER) 10.2 K/ L 3.5-10.5 (test code = 775) RED BLOOD CELL COUNT (BEAKER) 3.07 M/ L 4.63-6.08 L (test code = 761) HEMOGLOBIN (BEAKER) (test code = 8.9 GM/DL 13.7-17.5 L 410) HEMATOCRIT (BEAKER) (test code = 30.1 % 40.1-51.0 L 411) MEAN CORPUSCULAR VOLUME (BEAKER) 98.0 fL 79.0-92.2 H (test code = 753) MEAN CORPUSCULAR HEMOGLOBIN 29.0 pg 25.7-32.2 (BEAKER) (test code = 751) MEAN CORPUSCULAR HEMOGLOBIN CONC 29.6 GM/DL 32.3-36.5 L (BEAKER) (test code = 752) RED CELL DISTRIBUTION WIDTH 17.9 % 11.6-14.4 H (BEAKER) (test code = 412) PLATELET COUNT (BEAKER) (test 374 K/CU MM 150-450 code = 756) MEAN PLATELET VOLUME (BEAKER) 9.8 fL 9.4-12.4 (test code = 754) NUCLEATED RED BLOOD CELLS 0 /100 WBC 0-0 (BEAKER) (test code = 413) POCT-GLUCOSE [id number] 21:31:00 Test Item Value Reference Range Interpretation Comments POC-GLUCOSE METER 119 mg/dL 70-110 H TESTED AT [place] [address] ([facility]) (test code = [facility] 1538) [address] POCT-GLUCOSE [id number] 17:15:00 Test Item Value Reference Range Interpretation Comments POC-GLUCOSE METER 117 mg/dL 70-110 H TESTED AT [place] [address] ([facility]) (test code = [facility] 1538) [address] POCT-GLUCOSE [id number] 12:55:00 Test Item Value Reference Range Interpretation Comments POC-GLUCOSE METER 76 mg/dL 70-110 TESTED AT [place] [address] ([facility]) (test code = [facility] [address] 1538) BASIC METABOLIC [id number] 08:15:00 Test Item Value Reference Range Interpretation Comments SODIUM (BEAKER) 136 meq/L 136-145 (test code = 381) POTASSIUM (BEAKER) 4.5 meq/L 3.5-5.1 (test code = 379) CHLORIDE (BEAKER) 102 meq/L 98-107 (test code = 382) CO2 (BEAKER) (test 23 meq/L 22-29 code = 355) BLOOD UREA NITROGEN 34 mg/dL 7-21 H (BEAKER) (test code = 354) CREATININE (BEAKER) 3.95 mg/dL 0.57-1.25 H (test code = 358) GLUCOSE RANDOM 92 mg/dL 70-105 (BEAKER) (test code = 652) CALCIUM (BEAKER) 8.2 mg/dL 8.4-10.2 L (test code = 697) EGFR (BEAKER) (test 15 mL/min/1.73 ESTIMA SOHAIL GFR IS code = 1092) sq m NOT ACCURATE CREATININE CLEARANCE IN PREDICTING GLOMERULAR FILTRATION RATE . ESTIMATED GFR I S NOT APPLICABLE FOR DIALYSIS PATIEN TS. POCT-GLUCOSE [id number] 08:11:00 Test Item Value Reference Range Interpretation Comments POC-GLUCOSE METER 101 mg/dL 70-110 TESTED AT [place] [address] ([facility]) (test code = [place] 1538) [id number] CBC (HEMOGRAM ONLY)2019-06-09 06:58:00 Test Item Value Reference Range Interpretation Comments WHITE BLOOD CELL COUNT (BEAKER) 10.1 K/ L 3.5-10.5 (test code = 775) RED BLOOD CELL COUNT (BEAKER) 3.11 M/ L 4.63-6.08 L (test code = 761) HEMOGLOBIN (BEAKER) (test code = 8.9 GM/DL 13.7-17.5 L 410) HEMATOCRIT (BEAKER) (test code = 30.4 % 40.1-51.0 L 411) MEAN CORPUSCULAR VOLUME (BEAKER) 97.7 fL 79.0-92.2 H (test code = 753) MEAN CORPUSCULAR HEMOGLOBIN 28.6 pg 25.7-32.2 (BEAKER) (test code = 751) MEAN CORPUSCULAR HEMOGLOBIN CONC 29.3 GM/DL 32.3-36.5 L (BEAKER) (test code = 752) RED CELL DISTRIBUTION WIDTH 17.9 % 11.6-14.4 H (BEAKER) (test code = 412) PLATELET COUNT (BEAKER) (test 344 K/CU MM 150-450 code = 756) MEAN PLATELET VOLUME (BEAKER) 10.1 fL 9.4-12.4 (test code = 754) NUCLEATED RED BLOOD CELLS 0 /100 WBC 0-0 (BEAKER) (test code = 413) POCT-GLUCOSE [id number] 20:40:00 Test Item Value Reference Range Interpretation Comments POC-GLUCOSE METER 116 mg/dL 70-110 H TESTED AT [place] [address] ([facility]) (test code = CIER[place] Sewell [place] 1538) [address] POCT-GLUCOSE [id number] 17:32:00 Test Item Value Reference Range Interpretation Comments POC-GLUCOSE METER 122 mg/dL 70-110 H TESTED AT [place] [address] ([facility]) (test code = CI[place] Sew[place] 1538) [address] POCT-GLUCOSE [id number] 17:14:00 Test Item Value Reference Range Interpretation Comments POC-GLUCOSE METER 112 mg/dL 70-110 H TESTED AT [facility] 6720 (BEAKER) (test code = CIERA Sewell [place] 1538) [address] POCT-GLUCOSE [id number] 16:56:00 Test Item Value Reference Range Interpretation Comments POC-GLUCOSE METER 219 mg/dL 70-110 H TESTED AT [facility] 6720 (BEAKER) (test code = [facility] Melodie [place] 1538) [address] POCT-GLUCOSE [id number] 09:50:00 Test Item Value Reference Range Interpretation Comments POC-GLUCOSE METER 117 mg/dL 70-110 H TESTED AT [facility] 6720 (BEAKER) (test code = [facility] Melodie [facility] 1538) [address] BASIC METABOLIC [id number] 07:14:00 Test Item Value Reference Range Interpretation Comments SODIUM (BEAKER) 134 meq/L 136-145 L (test code = 381) POTASSIUM (BEAKER) 4.9 meq/L 3.5-5.1 (test code = 379) CHLORIDE (BEAKER) 100 meq/L 98-107 (test code = 382) CO2 (BEAKER) (test 25 meq/L 22-29 code = 355) BLOOD UREA NITROGEN 50 mg/dL 7-21 H (BEAKER) (test code = 354) CREATININE (BEAKER) 5.32 mg/dL 0.57-1.25 H (test code = 358) GLUCOSE RANDOM 72 mg/dL 70-105 (BEAKER) (test code = 652) CALCIUM (BEAKER) 8.2 mg/dL 8.4-10.2 L (test code = 697) EGFR (BEAKER) (test 11 mL/min/1.73 ESTIMA SOHAIL GFR IS code = 1092) sq m NOT ACCURATE CREATININE CLEARANCE IN PREDICTING GLOMERULAR FILTRATION RATE . ESTIMATED GFR I S NOT APPLICABLE FOR DIALYSIS PATIEN TS. CBC (HEMOGRAM ONLY)2019-06-08 07:03:00 Test Item Value Reference Range Interpretation Comments WHITE BLOOD CELL COUNT (BEAKER) 11.8 K/ L 3.5-10.5 H (test code = 775) RED BLOOD CELL COUNT (BEAKER) 3.32 M/ L 4.63-6.08 L (test code = 761) HEMOGLOBIN (BEAKER) (test code = 9.5 GM/DL 13.7-17.5 L 410) HEMATOCRIT (BEAKER) (test code = 32.2 % 40.1-51.0 L 411) MEAN CORPUSCULAR VOLUME (BEAKER) 97.0 fL 79.0-92.2 H (test code = 753) MEAN CORPUSCULAR HEMOGLOBIN 28.6 pg 25.7-32.2 (BEAKER) (test code = 751) MEAN CORPUSCULAR HEMOGLOBIN CONC 29.5 GM/DL 32.3-36.5 L (BEAKER) (test code = 752) RED CELL DISTRIBUTION WIDTH 17.3 % 11.6-14.4 H (BEAKER) (test code = 412) PLATELET COUNT (AKER) (test 336 K/CU MM 150-450 code = 756) MEAN PLATELET VOLUME (BEAKER) 10.2 fL 9.4-12.4 (test code = 754) NUCLEATED RED BLOOD CELLS 0 /100 WBC 0-0 (AKER) (test code = 413) POCT-GLUCOSE [id number] 21:59:00 Test Item Value Reference Range Interpretation Comments POC-GLUCOSE METER 78 mg/dL 70-110 TESTED AT [place] [address] ([facility]) (test code = [facility] [address] 1538) POCT-GLUCOSE [id number] 17:57:00 Test Item Value Reference Range Interpretation Comments POC-GLUCOSE METER 113 mg/dL 70-110 H TESTED AT [place] [address] ([facility]) (test code = [facility] 1538) [address] POCT-GLUCOSE [id number] 14:30:00 Test Item Value Reference Range Interpretation Comments POC-GLUCOSE METER 227 mg/dL 70-110 H TESTED AT [place] [address] ([facility]) (test code = [facility] 1538) [address] BASIC METABOLIC [id number] 08:20:00 Test Item Value Reference Range Interpretation Comments SODIUM (BEAKER) 135 meq/L 136-145 L (test code = 381) POTASSIUM (BEAKER) 4.6 meq/L 3.5-5.1 (test code = 379) CHLORIDE (BEAKER) 101 meq/L 98-107 (test code = 382) CO2 (BEAKER) (test 25 meq/L 22-29 code = 355) BLOOD UREA NITROGEN 39 mg/dL 7-21 H (BEAKER) (test code = 354) CREATININE (BEAKER) 4.52 mg/dL 0.57-1.25 H (test code = 358) GLUCOSE RANDOM 124 mg/dL 70-105 H (BEAKER) (test code = 652) CALCIUM (BEAKER) 8.0 mg/dL 8.4-10.2 L (test code = 697) EGFR (BEAKER) (test 13 mL/min/1.73 ESTIMA SOHAIL GFR IS code = 1092) sq m NOT ACCURATE CREATININE CLEARANCE IN PREDICTING GLOMERULAR FILTRATION RATE . ESTIMATED GFR I S NOT APPLICABLE FOR DIALYSIS PATIEN TS. POCT-GLUCOSE [id number] 08:01:00 Test Item Value Reference Range Interpretation Comments POC-GLUCOSE METER 139 mg/dL 70-110 H TESTED AT [facility] 6720 (AKER) (test code = [place] 1538) [id number] CBC (HEMOGRAM ONLY)2019-06-07 07:07:00 Test Item Value Reference Range Interpretation Comments WHITE BLOOD CELL COUNT (BEAKER) 13.1 K/ L 3.5-10.5 H (test code = 775) RED BLOOD CELL COUNT (BEAKER) 3.23 M/ L 4.63-6.08 L (test code = 761) HEMOGLOBIN (BEAKER) (test code = 9.3 GM/DL 13.7-17.5 L 410) HEMATOCRIT (BEAKER) (test code = 30.9 % 40.1-51.0 L 411) MEAN CORPUSCULAR VOLUME (BEAKER) 95.7 fL 79.0-92.2 H (test code = 753) MEAN CORPUSCULAR HEMOGLOBIN 28.8 pg 25.7-32.2 (BEAKER) (test code = 751) MEAN CORPUSCULAR HEMOGLOBIN CONC 30.1 GM/DL 32.3-36.5 L (BEAKER) (test code = 752) RED CELL DISTRIBUTION WIDTH 16.7 % 11.6-14.4 H (BEAKER) (test code = 412) PLATELET COUNT (BEAKER) (test 356 K/CU MM 150-450 code = 756) MEAN PLATELET VOLUME (BEAKER) 9.7 fL 9.4-12.4 (test code = 754) NUCLEATED RED BLOOD CELLS 0 /100 WBC 0-0 (BEAKER) (test code = 413) POCT-GLUCOSE [id number] 22:52:00 Test Item Value Reference Range Interpretation Comments POC-GLUCOSE METER 271 mg/dL 70-110 H TESTED AT [facility] 67 (BEAKER) (test code = CIERA Sewell [place] 1538) [address] POCT-GLUCOSE [id number] 17:23:00 Test Item Value Reference Range Interpretation Comments POC-GLUCOSE METER 273 mg/dL 70-110 H TESTED AT [place] [address] ([facility]) (test code = CIERA Sewell [place] 1538) [address] POCT-GLUCOSE [id number] 12:33:00 Test Item Value Reference Range Interpretation Comments POC-GLUCOSE METER 107 mg/dL 70-110 TESTED AT [place] [address] ([facility]) (test code = CIERA Sewell [facility] 1538) [address] BASIC METABOLIC [id number] 08:59:00 Test Item Value Reference Range Interpretation Comments SODIUM (BEAKER) 132 meq/L 136-145 L (test code = 381) POTASSIUM (BEAKER) 4.7 meq/L 3.5-5.1 (test code = 379) CHLORIDE (BEAKER) 99 meq/L 98-107 (test code = 382) CO2 (BEAKER) (test 24 meq/L 22-29 code = 355) BLOOD UREA NITROGEN 48 mg/dL 7-21 H (BEAKER) (test code = 354) CREATININE (BEAKER) 5.11 mg/dL 0.57-1.25 H (test code = 358) GLUCOSE RANDOM 166 mg/dL 70-105 H (BEAKER) (test code = 652) CALCIUM (BEAKER) 7.6 mg/dL 8.4-10.2 L (test code = 697) EGFR (BEAKER) (test 11 mL/min/1.73 ESTIMA SOHAIL GFR IS code = 1092) sq m NOT ACCURATE CREATININE CLEARANCE IN PREDICTING GLOMERULAR FILTRATION RATE . ESTIMATED GFR I S NOT APPLICABLE FOR DIALYSIS PATIEN TS. CBC (HEMOGRAM ONLY)2019-06-06 06:31:00 Test Item Value Reference Range Interpretation Comments WHITE BLOOD CELL COUNT (BEAKER) 10.6 K/ L 3.5-10.5 H (test code = 775) RED BLOOD CELL COUNT (BEAKER) 2.59 M/ L 4.63-6.08 L (test code = 761) HEMOGLOBIN (BEAKER) (test code = 7.0 GM/DL 13.7-17.5 L 410) HEMATOCRIT (BEAKER) (test code = 24.8 % 40.1-51.0 L 411) MEAN CORPUSCULAR VOLUME (BEAKER) 95.8 fL 79.0-92.2 H (test code = 753) MEAN CORPUSCULAR HEMOGLOBIN 27.0 pg 25.7-32.2 (BEAKER) (test code = 751) MEAN CORPUSCULAR HEMOGLOBIN CONC 28.2 GM/DL 32.3-36.5 L (BEAKER) (test code = 752) RED CELL DISTRIBUTION WIDTH 17.1 % 11.6-14.4 H (BEAKER) (test code = 412) PLATELET COUNT (BEAKER) (test 330 K/CU MM 150-450 code = 756) MEAN PLATELET VOLUME (BEAKER) 10.1 fL 9.4-12.4 (test code = 754) NUCLEATED RED BLOOD CELLS 0 /100 WBC 0-0 (AKER) (test code = 413) POCT-GLUCOSE [id number] 21:40:00 Test Item Value Reference Range Interpretation Comments POC-GLUCOSE METER 137 mg/dL 70-110 H TESTED AT [place] [address] ([facility]) (test code = [facility]ERA Sewell [facility] 1538) [id number] POCT-GLUCOSE [id number] 18:27:00 Test Item Value Reference Range Interpretation Comments POC-GLUCOSE METER 219 mg/dL 70-110 H TESTED AT [place] [address] ([facility]) (test code = [facility]ER[facility] 1538) [id number] POCT-GLUCOSE [id number] 13:10:00 Test Item Value Reference Range Interpretation Comments POC-GLUCOSE METER 168 mg/dL 70-110 H TESTED AT [place] [address] ([facility]) (test code = [facility]ER[facility] Sew[facility] 1538) [id number] POCT-GLUCOSE [id number] 10:22:00 Test Item Value Reference Range Interpretation Comments POC-GLUCOSE METER 161 mg/dL 70-110 H TESTED AT [place] [address] ([facility]) (test code = [facility]ER[facility] 1538) [id number] BASIC METABOLIC [id number] 04:41:00 Test Item Value Reference Range Interpretation Comments SODIUM (BEAKER) 133 meq/L 136-145 L (test code = 381) POTASSIUM (BEAKER) 4.4 meq/L 3.5-5.1 (test code = 379) CHLORIDE (BEAKER) 101 meq/L 98-107 (test code = 382) CO2 (BEAKER) (test 26 meq/L 22-29 code = 355) BLOOD UREA NITROGEN 31 mg/dL 7-21 H (BEAKER) (test code = 354) CREATININE (BEAKER) 4.22 mg/dL 0.57-1.25 H (test code = 358) GLUCOSE RANDOM 132 mg/dL 70-105 H (BEAKER) (test code = 652) CALCIUM (BEAKER) 7.6 mg/dL 8.4-10.2 L (test code = 697) EGFR (BEAKER) (test 14 mL/min/1.73 ESTIMA SOHAIL GFR IS code = 1092) sq m NOT ACCURATE CREATININE CLEARANCE IN PREDICTING GLOMERULAR FILTRATION RATE . ESTIMATED GFR I S NOT APPLICABLE FOR DIALYSIS PATIEN TS. [id number] 04:40:00 Test Item Value Reference Range Interpretation Comments MAGNESIUM (BEAKER) (test code = 2.1 mg/dL 1.6-2.6 627) CBC (HEMOGRAM ONLY)2019-06-05 04:17:00 Test Item Value Reference Range Interpretation Comments WHITE BLOOD CELL COUNT (BEAKER) 9.1 K/ L 3.5-10.5 (test code = 775) RED BLOOD CELL COUNT (BEAKER) 2.70 M/ L 4.63-6.08 L (test code = 761) HEMOGLOBIN (BEAKER) (test code = 7.6 GM/DL 13.7-17.5 L 410) HEMATOCRIT (BEAKER) (test code = 25.1 % 40.1-51.0 L 411) MEAN CORPUSCULAR VOLUME (BEAKER) 93.0 fL 79.0-92.2 H (test code = 753) MEAN CORPUSCULAR HEMOGLOBIN 28.1 pg 25.7-32.2 (BEAKER) (test code = 751) MEAN CORPUSCULAR HEMOGLOBIN CONC 30.3 GM/DL 32.3-36.5 L (BEAKER) (test code = 752) RED CELL DISTRIBUTION WIDTH 16.9 % 11.6-14.4 H (BEAKER) (test code = 412) PLATELET COUNT (BEAKER) (test 325 K/CU MM 150-450 code = 756) MEAN PLATELET VOLUME (BEAKER) 10.0 fL 9.4-12.4 (test code = 754) NUCLEATED RED BLOOD CELLS 0 /100 WBC 0-0 (BEAKER) (test code = 413) POCT-GLUCOSE [id number] 21:42:00 Test Item Value Reference Range Interpretation Comments POC-GLUCOSE METER 176 mg/dL 70-110 H TESTED AT [place] [address] ([facility]) (test code = [facility] 1538) [id number] POCT-GLUCOSE [id number] 14:38:00 Test Item Value Reference Range Interpretation Comments POC-GLUCOSE METER 179 mg/dL 70-110 H TESTED AT [place] [address] ([facility]) (test code = [facility] 1538) [id number] POCT-GLUCOSE [id number] 09:07:00 Test Item Value Reference Range Interpretation Comments POC-GLUCOSE METER 155 mg/dL 70-110 H TESTED AT [place] [address] ([facility]) (test code = [facility] 1538) [address] BASIC METABOLIC [id number] 07:49:00 Test Item Value Reference Range Interpretation Comments SODIUM (BEAKER) 132 meq/L 136-145 L (test code = 381) POTASSIUM (BEAKER) 5.3 meq/L 3.5-5.1 H (test code = 379) CHLORIDE (BEAKER) 99 meq/L 98-107 (test code = 382) CO2 (BEAKER) (test 27 meq/L 22-29 code = 355) BLOOD UREA NITROGEN 43 mg/dL 7-21 H (BEAKER) (test code = 354) CREATININE (BEAKER) 5.63 mg/dL 0.57-1.25 H (test code = 358) GLUCOSE RANDOM 141 mg/dL 70-105 H (BEAKER) (test code = 652) CALCIUM (BEAKER) 7.8 mg/dL 8.4-10.2 L (test code = 697) EGFR (BEAKER) (test 10 mL/min/1.73 ESTIMA SOHAIL GFR IS code = 1092) sq m NOT ACCURATE CREATININE CLEARANCE IN PREDICTING GLOMERULAR FILTRATION RATE . ESTIMATED GFR I S NOT APPLICABLE FOR DIALYSIS PATIEN TS. [id number] 07:44:00 Test Item Value Reference Range Interpretation Comments MAGNESIUM (BEAKER) (test code = 2.2 mg/dL 1.6-2.6 627) CBC (HEMOGRAM ONLY)2019-06-04 05:56:00 Test Item Value Reference Range Interpretation Comments WHITE BLOOD CELL COUNT (BEAKER) 9.6 K/ L 3.5-10.5 (test code = 775) RED BLOOD CELL COUNT (BEAKER) 2.58 M/ L 4.63-6.08 L (test code = 761) HEMOGLOBIN (BEAKER) (test code = 7.1 GM/DL 13.7-17.5 L 410) HEMATOCRIT (BEAKER) (test code = 24.4 % 40.1-51.0 L 411) MEAN CORPUSCULAR VOLUME (BEAKER) 94.6 fL 79.0-92.2 H (test code = 753) MEAN CORPUSCULAR HEMOGLOBIN 27.5 pg 25.7-32.2 (BEAKER) (test code = 751) MEAN CORPUSCULAR HEMOGLOBIN CONC 29.1 GM/DL 32.3-36.5 L (BEAKER) (test code = 752) RED CELL DISTRIBUTION WIDTH 16.9 % 11.6-14.4 H (BEAKER) (test code = 412) PLATELET COUNT (BEAKER) (test 321 K/CU MM 150-450 code = 756) MEAN PLATELET VOLUME (BEAKER) 9.9 fL 9.4-12.4 (test code = 754) NUCLEATED RED BLOOD CELLS 0 /100 WBC 0-0 (BEAKER) (test code = 413) POCT-GLUCOSE [id number] 22:34:00 Test Item Value Reference Range Interpretation Comments POC-GLUCOSE METER 246 mg/dL 70-110 H TESTED AT [facility] 6720 ([facility]) (test code = [place] 1538) [address] POCT-GLUCOSE [id number] 18:15:00 Test Item Value Reference Range Interpretation Comments POC-GLUCOSE METER 201 mg/dL 70-110 H TESTED AT [facility] 6720 (BEAKER) (test code = [place] 1538) [address] POCT-GLUCOSE [id number] 13:12:00 Test Item Value Reference Range Interpretation Comments POC-GLUCOSE METER 211 mg/dL 70-110 H TESTED AT [facility] 6720 (BEAKER) (test code = [place] 1538) [address] POCT-GLUCOSE [id number] 08:17:00 Test Item Value Reference Range Interpretation Comments POC-GLUCOSE METER 204 mg/dL 70-110 H TESTED AT [facility] 6720 (BEAKER) (test code = [place] 1538) [address] BASIC METABOLIC [id number] 08:05:00 Test Item Value Reference Range Interpretation Comments SODIUM (BEAKER) 135 meq/L 136-145 L (test code = 381) POTASSIUM (BEAKER) 5.1 meq/L 3.5-5.1 (test code = 379) CHLORIDE (BEAKER) 102 meq/L 98-107 (test code = 382) CO2 (BEAKER) (test 24 meq/L 22-29 code = 355) BLOOD UREA NITROGEN 30 mg/dL 7-21 H (BEAKER) (test code = 354) CREATININE (BEAKER) 5.05 mg/dL 0.57-1.25 H (test code = 358) GLUCOSE RANDOM 137 mg/dL 70-105 H (BEAKER) (test code = 652) CALCIUM (BEAKER) 7.7 mg/dL 8.4-10.2 L (test code = 697) EGFR (BEAKER) (test 12 mL/min/1.73 ESTIMA SOHAIL GFR IS code = 1092) sq m NOT ACCURATE CREATININE CLEARANCE IN PREDICTING GLOMERULAR FILTRATION RATE . ESTIMATED GFR I S NOT APPLICABLE FOR DIALYSIS PATIEN TS. [id number] 08:04:00 Test Item Value Reference Range Interpretation Comments MAGNESIUM (BEAKER) (test code = 2.4 mg/dL 1.6-2.6 627) CBC (HEMOGRAM ONLY)2019-06-03 06:29:00 Test Item Value Reference Range Interpretation Comments WHITE BLOOD CELL COUNT (BEAKER) 9.2 K/ L 3.5-10.5 (test code = 775) RED BLOOD CELL COUNT (BEAKER) 2.75 M/ L 4.63-6.08 L (test code = 761) HEMOGLOBIN (BEAKER) (test code = 7.7 GM/DL 13.7-17.5 L 410) HEMATOCRIT (BEAKER) (test code = 26.0 % 40.1-51.0 L 411) MEAN CORPUSCULAR VOLUME ([facility]) 94.5 fL 79.0-92.2 H (test code = 753) MEAN CORPUSCULAR HEMOGLOBIN 28.0 pg 25.7-32.2 ([facility]) (test code = 751) MEAN CORPUSCULAR HEMOGLOBIN CONC 29.6 GM/DL 32.3-36.5 L ([facility]) (test code = 752) RED CELL DISTRIBUTION WIDTH 16.8 % 11.6-14.4 H ([facility]) (test code = 412) PLATELET COUNT ([facility]) (test 298 K/CU MM 150-450 code = 756) MEAN PLATELET VOLUME ([facility]) 9.9 fL 9.4-12.4 (test code = 754) NUCLEATED RED BLOOD CELLS 0 /100 WBC 0-0 ([facility]) (test code = 413) POCT-GLUCOSE [id number] 22:17:00 Test Item Value Reference Range Interpretation Comments POC-GLUCOSE METER 154 mg/dL 70-110 H TESTED AT [place] [address] ([facility]) ([facility] = [facility] [place] [facility] 1538) [address] POCT-GLUCOSE [id number] 22:14:00 Test Item Value Reference Range Interpretation Comments POC-GLUCOSE METER 172 mg/dL 70-110 H TESTED AT [place] [address] ([facility]) (test code = [facility] [place] [facility] 1538) [address] POCT-GLUCOSE [id number] 17:34:00 Test Item Value Reference Range Interpretation Comments POC-GLUCOSE METER 187 mg/dL 70-110 H TESTED AT [place] [address] ([facility]) (test code = [facility] [place] [facility] 1538) [address] POCT-GLUCOSE [id number] 12:28:00 Test Item Value Reference Range Interpretation Comments POC-GLUCOSE METER 192 mg/dL 70-110 H TESTED AT [place] [address] ([facility]) (test code = [facility] [place] [facility] 1538) [address] POCT-GLUCOSE [id number] 07:43:00 Test Item Value Reference Range Interpretation Comments POC-GLUCOSE METER 132 mg/dL 70-110 H TESTED AT [place] [address] ([facility]) (test code = [facility] [place] [facility] 1538) [address] POCT-GLUCOSE [id number] 21:47:00 Test Item Value Reference Range Interpretation Comments POC-GLUCOSE METER 255 mg/dL 70-110 H TESTED AT [place] [address] (BEAKER) (test code = [facility] 1538) [address] POCT-GLUCOSE [id number] 11:45:00 Test Item Value Reference Range Interpretation Comments POC-GLUCOSE METER 159 mg/dL 70-110 H TESTED AT [place] [address] (BEAKER) (test code = [facility] 1538) [address] [id number] 11:17:00 Test Item Value Reference Range Interpretation Comments FERRITIN (BEAKER) (test code = 361) 572 ng/mL 5-275 H IRON, TIBC, % SAT. (WITHOUT FERRITIN)2019-06-01 10:57:00 Test Item Value Reference Range Interpretation Comments IRON (BEAKER) (test code = 547) 15.0 ug/dL 40.0-160.0 L TOTAL IRON BINDING CAPACITY 169 ug/dL 250-450 L (BEAKER) (test code = 769) IRON % SATURATION (2) (BEAKER) 9 % 20-55 L (test code = 2590) POCT-GLUCOSE [id number] 08:44:00 Test Item Value Reference Range Interpretation Comments POC-GLUCOSE METER 170 mg/dL 70-110 H TESTED AT [place] [address] (BEAKER) (test code = [facility] 1538) [address] BASIC METABOLIC [id number] 04:42:00 Test Item Value Reference Range Interpretation Comments SODIUM (BEAKER) 132 meq/L 136-145 L (test code = 381) POTASSIUM (BEAKER) 4.7 meq/L 3.5-5.1 (test code = 379) CHLORIDE (BEAKER) 100 meq/L 98-107 (test code = 382) CO2 (BEAKER) (test 25 meq/L 22-29 code = 355) BLOOD UREA NITROGEN 28 mg/dL 7-21 H (BEAKER) (test code = 354) CREATININE (BEAKER) 4.59 mg/dL 0.57-1.25 H (test code = 358) GLUCOSE RANDOM 153 mg/dL 70-105 H (BEAKER) (test code = 652) CALCIUM (BEAKER) 7.7 mg/dL 8.4-10.2 L (test code = 697) EGFR (BEAKER) (test 13 mL/min/1.73 ESTIMA SOHAIL GFR IS code = 1092) sq m NOT ACCURATE CREATININE CLEARANCE IN PREDICTING GLOMERULAR FILTRATION RATE . ESTIMATED GFR I S NOT APPLICABLE FOR DIALYSIS PATIEN TS. [id number] 03:47:00 Test Item Value Reference Range Interpretation Comments MAGNESIUM (BEAKER) (test code = 2.1 mg/dL 1.6-2.6 627) CBC W/PLT COUNT & AUTO [id number] 03:36:00 Test Item Value Reference Range Interpretation Comments WHITE BLOOD CELL COUNT (BEAKER) 8.8 K/ L 3.5-10.5 (test code = 775) RED BLOOD CELL COUNT (BEAKER) 2.68 M/ L 4.63-6.08 L (test code = 761) HEMOGLOBIN (BEAKER) (test code = 7.5 GM/DL 13.7-17.5 L 410) HEMATOCRIT (BEAKER) (test code = 24.8 % 40.1-51.0 L 411) MEAN CORPUSCULAR VOLUME (BEAKER) 92.5 fL 79.0-92.2 H (test code = 753) MEAN CORPUSCULAR HEMOGLOBIN 28.0 pg 25.7-32.2 (BEAKER) (test code = 751) MEAN CORPUSCULAR HEMOGLOBIN CONC 30.2 GM/DL 32.3-36.5 L (BEAKER) (test code = 752) RED CELL DISTRIBUTION WIDTH 16.5 % 11.6-14.4 H (BEAKER) (test code = 412) PLATELET COUNT (BEAKER) (test 241 K/CU MM 150-450 code = 756) MEAN PLATELET VOLUME (BEAKER) 10.0 fL 9.4-12.4 (test code = 754) NUCLEATED RED BLOOD CELLS 0 /100 WBC 0-0 (BEAKER) (test code = 413) NEUTROPHILS RELATIVE PERCENT 73 % (BEAKER) (test code = 429) LYMPHOCYTES RELATIVE PERCENT 10 % (BEAKER) (test code = 430) MONOCYTES RELATIVE PERCENT 16 % (BEAKER) (test code = 431) EOSINOPHILS RELATIVE PERCENT 1 % (BEAKER) (test code = 432) BASOPHILS RELATIVE PERCENT 0 % (BEAKER) (test code = 437) NEUTROPHILS ABSOLUTE COUNT 6.45 K/ L 1.78-5.38 H ([facility]) (test code = 670) LYMPHOCYTES ABSOLUTE COUNT 0.84 K/ L 1.32-3.57 L (AKER) (test code = 414) MONOCYTES ABSOLUTE COUNT (AKER) 1.39 K/ L 0.30-0.82 H (test code = 415) EOSINOPHILS ABSOLUTE COUNT 0.05 K/ L 0.04-0.54 (AKER) (test code = 416) BASOPHILS ABSOLUTE COUNT (AKER) 0.01 K/ L 0.01-0.08 (test code = 417) IMMATURE GRANULOCYTES-RELATIVE 1 % 0-1 PERCENT ([facility]) (test code = 2801) POCT-GLUCOSE [id number] 22:05:00 Test Item Value Reference Range Interpretation Comments POC-GLUCOSE METER 91 mg/dL 70-110 TESTED AT [place] [address] ([facility]) (test code = [facility] [address] 1538) POCT-GLUCOSE [id number] 18:37:00 Test Item Value Reference Range Interpretation Comments POC-GLUCOSE METER 102 mg/dL 70-110 TESTED AT [place] [address] ([facility]) (test code = [facility] 1538) [address] POCT-GLUCOSE [id number] 12:26:00 Test Item Value Reference Range Interpretation Comments POC-GLUCOSE METER 113 mg/dL 70-110 H TESTED AT [place] [address] ([facility]) (test code = [facility] 1538) [address] POCT-GLUCOSE [id number] 08:07:00 Test Item Value Reference Range Interpretation Comments POC-GLUCOSE METER 73 mg/dL 70-110 TESTED AT [place] [address] ([facility]) (test code = [facility] [address] 1538) BLOOD [id number] 08:01:00 Test Item Value Reference Range Interpretation Comments CULTURE (BEAKER) (test No growth in 5 days code = 1095) BLOOD [id number] 08:01:00 Test Item Value Reference Range Interpretation Comments CULTURE (BEAKER) (test No growth in 5 days code = 1095) CBC W/PLT COUNT & AUTO [id number] 06:59:00 Test Item Value Reference Range Interpretation Comments WHITE BLOOD CELL COUNT ([facility]) 8.3 K/ L 3.5-10.5 (test code = 775) RED BLOOD CELL COUNT (BEAKER) 2.60 M/ L 4.63-6.08 L (test code = 761) HEMOGLOBIN (BEAKER) (test code = 7.4 GM/DL 13.7-17.5 L 410) HEMATOCRIT (BEAKER) (test code = 23.9 % 40.1-51.0 L 411) MEAN CORPUSCULAR VOLUME (BEAKER) 91.9 fL 79.0-92.2 (test code = 753) MEAN CORPUSCULAR HEMOGLOBIN 28.5 pg 25.7-32.2 (BEAKER) (test code = 751) MEAN CORPUSCULAR HEMOGLOBIN CONC 31.0 GM/DL 32.3-36.5 L (BEAKER) (test code = 752) RED CELL DISTRIBUTION WIDTH 16.6 % 11.6-14.4 H (BEAKER) (test code = 412) PLATELET COUNT (BEAKER) (test 241 K/CU MM 150-450 code = 756) MEAN PLATELET VOLUME (BEAKER) 9.9 fL 9.4-12.4 (test code = 754) NUCLEATED RED BLOOD CELLS 0 /100 WBC 0-0 (BEAKER) (test code = 413) NEUTROPHILS RELATIVE PERCENT 72 % (BEAKER) (test code = 429) LYMPHOCYTES RELATIVE PERCENT 10 % (BEAKER) (test code = 430) MONOCYTES RELATIVE PERCENT 17 % (BEAKER) (test code = 431) EOSINOPHILS RELATIVE PERCENT 0 % (BEAKER) (test code = 432) BASOPHILS RELATIVE PERCENT 0 % (BEAKER) (test code = 437) NEUTROPHILS ABSOLUTE COUNT 5.95 K/ L 1.78-5.38 H (BEAKER) (test code = 670) LYMPHOCYTES ABSOLUTE COUNT 0.80 K/ L 1.32-3.57 L (BEAKER) (test code = 414) MONOCYTES ABSOLUTE COUNT (BEAKER) 1.38 K/ L 0.30-0.82 H (test code = 415) EOSINOPHILS ABSOLUTE COUNT 0.03 K/ L 0.04-0.54 L (BEAKER) (test code = 416) BASOPHILS ABSOLUTE COUNT (BEAKER) 0.02 K/ L 0.01-0.08 (test code = 417) IMMATURE GRANULOCYTES-RELATIVE 1 % 0-1 PERCENT (BEAKER) (test code = 2801) BASIC METABOLIC [id number] 06:27:00 Test Item Value Reference Range Interpretation Comments SODIUM (BEAKER) 137 meq/L 136-145 (test code = 381) POTASSIUM (BEAKER) 4.1 meq/L 3.5-5.1 Specimen slightly (test code = 379) hemolyzed CHLORIDE (BEAKER) 110 meq/L 98-107 H (test code = 382) CO2 (BEAKER) (test 22 meq/L 22-29 code = 355) BLOOD UREA NITROGEN 18 mg/dL 7-21 (BEAKER) (test code = 354) CREATININE (BEAKER) 2.93 mg/dL 0.57-1.25 H Specimen slightly (test code = 358) hemolyzed GLUCOSE RANDOM 75 mg/dL 70-105 (BEAKER) (test code = 652) CALCIUM (BEAKER) 6.3 mg/dL 8.4-10.2 L (test code = 697) EGFR (BEAKER) (test 22 mL/min/1.73 ESTIMA SOHAIL GFR IS code = 1092) sq m NOT ACCURATE CREATININE CLEARANCE IN PREDICTING GLOMERULAR FILTRATION RATE . ESTIMATED GFR I S NOT APPLICABLE FOR DIALYSIS PATIEN TS. [id number] 06:18:00 Test Item Value Reference Range Interpretation Comments MAGNESIUM (BEAKER) 1.6 mg/dL 1.6-2.6 Specimen slightly (test code = 627) hemolyzed URINALYSIS W/ REFLEX URINE [id number] 23:41:00 Test Item Value Reference Range Interpretation Comments COLOR (BEAKER) (test code = 470) Brown CLARITY (BEAKER) (test code = 469) Hazy SPECIFIC GRAVITY UA (BEAKER) (test 1.019 1.001-1.035 code = 468) PH UA (BEAKER) (test code = 467) 5.0 5.0-8.0 PROTEIN UA (BEAKER) (test code = 200 mg/dL Negative A 464) GLUCOSE UA (BEAKER) (test code = 30 mg/dL Negative A 365) KETONES UA (BEAKER) (test code = Trace Negative A 371) BILIRUBIN UA (BEAKER) (test code = Positive Negative A 462) BLOOD UA (BEAKER) (test code = Moderate Negative A 461) NITRITE UA (BEAKER) (test code = Negative Negative 465) LEUKOCYTE ESTERASE UA (BEAKER) Large Negative A (test code = 466) UROBILINOGEN UA (BEAKER) (test 2.0 mg/dL 0.2-1.0 H code = 463) RBC UA (BEAKER) (test code = 519) 4 /HPF WBC UA (BEAKER) (test code = 520) 7 /HPF BACTERIA (BEAKER) (test code = Occasional 517) MUCUS (BEAKER) (test code = 1574) Rare SQUAMOUS EPITHELIAL (BEAKER) (test 6 /HPF code = 516) SOURCE(BEAKER) (test code = 2795) POCT-GLUCOSE [id number] 21:42:00 Test Item Value Reference Range Interpretation Comments POC-GLUCOSE METER 139 mg/dL 70-110 H TESTED AT [place] [address] ([facility]) (test code = [facility] 1538) [address] POCT-GLUCOSE [id number] 20:39:00 Test Item Value Reference Range Interpretation Comments POC-GLUCOSE METER 65 mg/dL 70-110 L TESTED AT [place] [address] ([facility]) (test code = [facility] [address] 1538) POCT-GLUCOSE [id number] 17:54:00 Test Item Value Reference Range Interpretation Comments POC-GLUCOSE METER 78 mg/dL 70-110 TESTED AT [place] [address] ([facility]) (test code = [facility] [address] 1538) CBC W/PLT COUNT & AUTO [id number] 10:44:00 Test Item Value Reference Range Interpretation Comments WHITE BLOOD CELL COUNT ([facility]) 10.1 K/ L 3.5-10.5 (test code = 775) RED BLOOD CELL COUNT (AKER) 2.54 M/ L 4.63-6.08 L (test code = 761) HEMOGLOBIN (BEAKER) (test code = 7.3 GM/DL 13.7-17.5 L 410) HEMATOCRIT (BEAKER) (test code = 23.6 % 40.1-51.0 L 411) MEAN CORPUSCULAR VOLUME (AKER) 92.9 fL 79.0-92.2 H (test code = 753) MEAN CORPUSCULAR HEMOGLOBIN 28.7 pg 25.7-32.2 (BEAKER) (test code = 751) MEAN CORPUSCULAR HEMOGLOBIN CONC 30.9 GM/DL 32.3-36.5 L (BEAKER) (test code = 752) RED CELL DISTRIBUTION WIDTH 16.7 % 11.6-14.4 H (BEAKER) (test code = 412) PLATELET COUNT (BEAKER) (test 203 K/CU MM 150-450 code = 756) MEAN PLATELET VOLUME (BEAKER) 10.1 fL 9.4-12.4 (test code = 754) NUCLEATED RED BLOOD CELLS 0 /100 WBC 0-0 (BEAKER) (test code = 413) (CELLAVISION MANUAL DIFF)2019-05-30 10:44:00 Test Item Value Reference Range Interpretation Comments NEUTROPHILS - REL 77 % (CELLAVISION)(BEAKER) (test code = 2816) LYMPHOCYTES - REL 6 % (CELLAVISION)(BEAKER) (test code = 2817) MONOCYTES - REL 15 % (CELLAVISION)(BEAKER) (test code = 2818) BASOPHILS - REL 2 % (CELLAVISION)(BEAKER) (test code = 2820) NEUTROPHILS - ABS 7.78 K/ul 1.78-5.38 H (CELLAVISION)(BEAKER) (test code = 2830) LYMPHOCYTES - ABS 0.61 K/ul 1.32-3.57 L (CELLAVISION)(BEAKER) (test code = 2831) MONOCYTES - ABS 1.52 K/uL 0.30-0.82 H (CELLAVISION)(BEAKER) (test code = 2832) BASOPHILS - ABS 0.20 K/uL 0.01-0.08 H (CELLAVISION)(BEAKER) (test code = 2835) TOTAL COUNTED (BEAKER) (test code = 100 1351) WBC MORPHOLOGY (BEAKER) (test code Normal = 487) PLT MORPHOLOGY (BEAKER) (test code Normal = 486) POLYCHROMATOPHILLIC RBCS(BEAKER) 1+ few (test code = 478) HYPOCHROMIA (BEAKER) (test code = 1+ few 963) ANISOCYTOSIS (BEAKER) (test code = 1+ few 961) MACROCYTES (BEAKER) (test code = 1+ few 964) ARTIFACT (CELLAVISION)(BEAKER) Present (test code = 3432) PLATELET CONCENTRATION Adequate (CELLAVISION)(BEAKER) (test code = 3438) Received comment: User comments: Slide comments:POCT-GLUCOSE [id number] 07:50:00 Test Item Value Reference Range Interpretation Comments POC-GLUCOSE METER 70 mg/dL 70-110 TESTED AT [facility] 6720 (BEAKER) (test code = [facility] [place] [address] 1538) BASIC METABOLIC [id number] 06:36:00 Test Item Value Reference Range Interpretation Comments SODIUM (BEAKER) 133 meq/L 136-145 L (test code = 381) POTASSIUM (BEAKER) 4.5 meq/L 3.5-5.1 (test code = 379) CHLORIDE (BEAKER) 101 meq/L 98-107 (test code = 382) CO2 (BEAKER) (test 24 meq/L 22-29 code = 355) BLOOD UREA NITROGEN 30 mg/dL 7-21 H (BEAKER) (test code = 354) CREATININE (BEAKER) 4.37 mg/dL 0.57-1.25 H (test code = 358) GLUCOSE RANDOM 64 mg/dL 70-105 L (BEAKER) (test code = 652) CALCIUM (BEAKER) 7.4 mg/dL 8.4-10.2 L (test code = 697) EGFR (BEAKER) (test 14 mL/min/1.73 ESTIMA SOHAIL GFR IS code = 1092) sq m NOT ACCURATE CREATININE CLEARANCE IN PREDICTING GLOMERULAR FILTRATION RATE . ESTIMATED GFR I S NOT APPLICABLE FOR DIALYSIS PATIEN TS. [id number] 06:33:00 Test Item Value Reference Range Interpretation Comments MAGNESIUM (BEAKER) (test code = 2.2 mg/dL 1.6-2.6 627) POCT-GLUCOSE [id number] 22:28:00 Test Item Value Reference Range Interpretation Comments POC-GLUCOSE METER 120 mg/dL 70-110 H TESTED AT [facility] 6720 (BEAKER) (test code = [facility] 1538) [id number] POCT-GLUCOSE [id number] 19:33:00 Test Item Value Reference Range Interpretation Comments POC-GLUCOSE METER 166 mg/dL 70-110 H TESTED AT [facility] 6720 (BEAKER) (test code = [facility] 1538) [id number] POCT-GLUCOSE [id number] 13:30:00 Test Item Value Reference Range Interpretation Comments POC-GLUCOSE METER 168 mg/dL 70-110 H TESTED AT [facility] 6720 (BEAKER) (test code = [place] 1538) [address] POCT-GLUCOSE [id number] 07:37:00 Test Item Value Reference Range Interpretation Comments POC-GLUCOSE METER 117 mg/dL 70-110 H TESTED AT [facility] 6720 (BEAKER) (test code = [place] [facility] 1538) [address] BASIC METABOLIC [id number] 06:57:00 Test Item Value Reference Range Interpretation Comments SODIUM (BEAKER) 134 meq/L 136-145 L (test code = 381) POTASSIUM (BEAKER) 4.3 meq/L 3.5-5.1 Specimen slightly (test code = 379) hemolyzed CHLORIDE (BEAKER) 102 meq/L 98-107 (test code = 382) CO2 (BEAKER) (test 25 meq/L 22-29 code = 355) BLOOD UREA NITROGEN 23 mg/dL 7-21 H (BEAKER) (test code = 354) CREATININE (BEAKER) 3.35 mg/dL 0.57-1.25 H Specimen slightly (test code = 358) hemolyzed GLUCOSE RANDOM 113 mg/dL 70-105 H (BEAKER) (test code = 652) CALCIUM (BEAKER) 7.6 mg/dL 8.4-10.2 L (test code = 697) EGFR (BEAKER) (test 19 mL/min/1.73 ESTIMA SOHAIL GFR IS code = 1092) sq m NOT ACCURATE CREATININE CLEARANCE IN PREDICTING GLOMERULAR FILTRATION RATE . ESTIMATED GFR I S NOT APPLICABLE FOR DIALYSIS PATIEN TS. [id number] 06:52:00 Test Item Value Reference Range Interpretation Comments MAGNESIUM (BEAKER) 2.1 mg/dL 1.6-2.6 Specimen slightly (test code = 627) hemolyzed CBC (HEMOGRAM ONLY)2019-05-29 05:55:00 Test Item Value Reference Range Interpretation Comments WHITE BLOOD CELL COUNT (BEAKER) 10.5 K/ L 3.5-10.5 (test code = 775) RED BLOOD CELL COUNT (BEAKER) 2.53 M/ L 4.63-6.08 L (test code = 761) HEMOGLOBIN (BEAKER) (test code = 7.1 GM/DL 13.7-17.5 L 410) HEMATOCRIT (BEAKER) (test code = 23.4 % 40.1-51.0 L 411) MEAN CORPUSCULAR VOLUME (BEAKER) 92.5 fL 79.0-92.2 H (test code = 753) MEAN CORPUSCULAR HEMOGLOBIN 28.1 pg 25.7-32.2 (AKER) (test code = 751) MEAN CORPUSCULAR HEMOGLOBIN CONC 30.3 GM/DL 32.3-36.5 L (BEAKER) (test code = 752) RED CELL DISTRIBUTION WIDTH 17.1 % 11.6-14.4 H (AKER) (test code = 412) PLATELET COUNT ([facility]) (test 180 K/CU MM 150-450 code = 756) MEAN PLATELET VOLUME (AKER) 10.6 fL 9.4-12.4 (test code = 754) NUCLEATED RED BLOOD CELLS 0 /100 WBC 0-0 ([facility]) (test code = 413) POCT-GLUCOSE [id number] 21:52:00 Test Item Value Reference Range Interpretation Comments POC-GLUCOSE METER 174 mg/dL 70-110 H TESTED AT [place] [address] ([facility]) (test code = [facility] 1538) [id number] POCT-GLUCOSE [id number] 17:58:00 Test Item Value Reference Range Interpretation Comments POC-GLUCOSE METER 151 mg/dL 70-110 H TESTED AT [place] [address] ([facility]) (test code = [facility] 1538) [id number] POCT-GLUCOSE [id number] 12:35:00 Test Item Value Reference Range Interpretation Comments POC-GLUCOSE METER 225 mg/dL 70-110 H TESTED AT [place] [address] ([facility]) (test code = [facility] 1538) [address] HEMOGLOBIN [id number] 08:34:00 Test Item Value Reference Range Interpretation Comments HEMOGLOBIN A1C ([facility]) (test code = 6.3 % 4.3-6.1 H 368) POCT-GLUCOSE [id number] 07:56:00 Test Item Value Reference Range Interpretation Comments POC-GLUCOSE METER 141 mg/dL 70-110 H TESTED AT [place] [address] (BEAKER) (test code = [facility] 1538) [id number] CBC (HEMOGRAM ONLY)2019-05-28 06:12:00 Test Item Value Reference Range Interpretation Comments WHITE BLOOD CELL COUNT (BEAKER) 11.7 K/ L 3.5-10.5 H (test code = 775) RED BLOOD CELL COUNT (BEAKER) 2.54 M/ L 4.63-6.08 L (test code = 761) HEMOGLOBIN (BEAKER) (test code = 7.3 GM/DL 13.7-17.5 L 410) HEMATOCRIT (BEAKER) (test code = 23.4 % 40.1-51.0 L 411) MEAN CORPUSCULAR VOLUME (BEAKER) 92.1 fL 79.0-92.2 (test code = 753) MEAN CORPUSCULAR HEMOGLOBIN 28.7 pg 25.7-32.2 (BEAKER) (test code = 751) MEAN CORPUSCULAR HEMOGLOBIN CONC 31.2 GM/DL 32.3-36.5 L (BEAKER) (test code = 752) RED CELL DISTRIBUTION WIDTH 17.1 % 11.6-14.4 H (BEAKER) (test code = 412) PLATELET COUNT (BEAKER) (test 137 K/CU MM 150-450 L code = 756) MEAN PLATELET VOLUME (BEAKER) 10.4 fL 9.4-12.4 (test code = 754) NUCLEATED RED BLOOD CELLS 1 /100 WBC 0-0 H (BEAKER) (test code = 413) BASIC METABOLIC [id number] 06:02:00 Test Item Value Reference Range Interpretation Comments SODIUM (BEAKER) 131 meq/L 136-145 L (test code = 381) POTASSIUM (BEAKER) 4.3 meq/L 3.5-5.1 (test code = 379) CHLORIDE (BEAKER) 100 meq/L 98-107 (test code = 382) CO2 (BEAKER) (test 23 meq/L 22-29 code = 355) BLOOD UREA NITROGEN 34 mg/dL 7-21 H (BEAKER) (test code = 354) CREATININE (BEAKER) 4.25 mg/dL 0.57-1.25 H (test code = 358) GLUCOSE RANDOM 143 mg/dL 70-105 H (BEAKER) (test code = 652) CALCIUM (BEAKER) 7.5 mg/dL 8.4-10.2 L (test code = 697) EGFR (BEAKER) (test 14 mL/min/1.73 ESTIMA SOHAIL GFR IS code = 1092) sq m NOT ACCURATE CREATININE CLEARANCE IN PREDICTING GLOMERULAR FILTRATION RATE . ESTIMATED GFR I S NOT APPLICABLE FOR DIALYSIS PATIEN TS. POCT-GLUCOSE [id number] 22:24:00 Test Item Value Reference Range Interpretation Comments POC-GLUCOSE METER 171 mg/dL 70-110 H TESTED AT [place] [address] ([facility]) (test code = [facility] 1538) [address] HEPATITIS B [id number] 20:01:00 Test Item Value Reference Range Interpretation Comments HEPATITIS B CORE TOTAL ANTIBODY Nonreactive Nonreactive (AKER) (test code = 497) HEPATITIS B SURFACE ANTIBODY < mIU/mL <8.0 ([facility]) (test code = 647) HEPATITIS B SURFACE ANTIGEN (2) Nonreactive Nonreactive ([facility]) (test code = 2585) POCT-GLUCOSE [id number] 17:37:00 Test Item Value Reference Range Interpretation Comments POC-GLUCOSE METER 158 mg/dL 70-110 H TESTED AT [place] [address] ([facility]) (test code = [facility] 1538) [id number] CBC (HEMOGRAM ONLY)2019-05-27 16:37:00 Test Item Value Reference Range Interpretation Comments WHITE BLOOD CELL COUNT (BEAKER) 13.8 K/ L 3.5-10.5 H (test code = 775) RED BLOOD CELL COUNT (BEAKER) 2.44 M/ L 4.63-6.08 L (test code = 761) HEMOGLOBIN (BEAKER) (test code = 7.3 GM/DL 13.7-17.5 L 410) HEMATOCRIT (BEAKER) (test code = 22.5 % 40.1-51.0 L 411) MEAN CORPUSCULAR VOLUME (BEAKER) 92.2 fL 79.0-92.2 (test code = 753) MEAN CORPUSCULAR HEMOGLOBIN 29.9 pg 25.7-32.2 (BEAKER) (test code = 751) MEAN CORPUSCULAR HEMOGLOBIN CONC 32.4 GM/DL 32.3-36.5 (BEAKER) (test code = 752) RED CELL DISTRIBUTION WIDTH 16.7 % 11.6-14.4 H (BEAKER) (test code = 412) PLATELET COUNT (BEAKER) (test 107 K/CU MM 150-450 L code = 756) MEAN PLATELET VOLUME (BEAKER) 11.2 fL 9.4-12.4 (test code = 754) NUCLEATED RED BLOOD CELLS 1 /100 WBC 0-0 H (BEAKER) (test code = 413) BASIC METABOLIC [id number] 16:28:00 Test Item Value Reference Range Interpretation Comments SODIUM (BEAKER) 131 meq/L 136-145 L (test code = 381) POTASSIUM (BEAKER) 4.3 meq/L 3.5-5.1 Specimen slightly (test code = 379) hemolyzed CHLORIDE (BEAKER) 100 meq/L 98-107 (test code = 382) CO2 (BEAKER) (test 26 meq/L 22-29 code = 355) BLOOD UREA NITROGEN 29 mg/dL 7-21 H (BEAKER) (test code = 354) CREATININE (BEAKER) 3.53 mg/dL 0.57-1.25 H Specimen slightly (test code = 358) hemolyzed GLUCOSE RANDOM 149 mg/dL 70-105 H (BEAKER) (test code = 652) CALCIUM (BEAKER) 7.6 mg/dL 8.4-10.2 L (test code = 697) EGFR (BEAKER) (test 17 mL/min/1.73 ESTIMA SOHAIL GFR IS code = 1092) sq m NOT ACCURATE CREATININE CLEARANCE IN PREDICTING GLOMERULAR FILTRATION RATE . ESTIMATED GFR I S NOT APPLICABLE FOR DIALYSIS PATIEN TS. POCT-GLUCOSE [id number] 12:29:00 Test Item Value Reference Range Interpretation Comments POC-GLUCOSE METER 155 mg/dL 70-110 H TESTED AT [facility] 6720 (BEAKER) (test code = [address] [place] 1538) [address] [id number] 09:20:00 Test Item Value Reference Range Interpretation Comments PHOSPHORUS (BEAKER) (test code = 3.4 mg/dL 2.3-4.7 604) [id number] 09:20:00 Test Item Value Reference Range Interpretation Comments MAGNESIUM (BEAKER) (test code = 2.0 mg/dL 1.6-2.6 627) PH, [id number] 08:49:00 Test Item Value Reference Range Interpretation Comments PH ARTERIAL (BEAKER) (test code = 383) 7.35 7.35-7.45 POCT-GLUCOSE [id number] 08:11:00 Test Item Value Reference Range Interpretation Comments POC-GLUCOSE METER 137 mg/dL 70-110 H TESTED AT [facility] 6720 (BEAKER) (test code = [place] 1538) [address] BASIC METABOLIC [id number] 03:25:00 Test Item Value Reference Range Interpretation Comments SODIUM (BEAKER) 130 meq/L 136-145 L (test code = 381) POTASSIUM (BEAKER) 4.5 meq/L 3.5-5.1 Specimen slightly (test code = 379) hemolyzed CHLORIDE (BEAKER) 99 meq/L 98-107 (test code = 382) CO2 (BEAKER) (test 23 meq/L 22-29 code = 355) BLOOD UREA NITROGEN 36 mg/dL 7-21 H (BEAKER) (test code = 354) CREATININE (BEAKER) 4.09 mg/dL 0.57-1.25 H Specimen slightly (test code = 358) hemolyzed GLUCOSE RANDOM 134 mg/dL 70-105 H (BEAKER) (test code = 652) CALCIUM (BEAKER) 7.8 mg/dL 8.4-10.2 L (test code = 697) EGFR (BEAKER) (test 15 mL/min/1.73 ESTIMA SOHAIL GFR IS code = 1092) sq m NOT ACCURATE CREATININE CLEARANCE IN PREDICTING GLOMERULAR FILTRATION RATE . ESTIMATED GFR I S NOT APPLICABLE FOR DIALYSIS PATIEN TS. CBC W/PLT COUNT & AUTO [id number] 03:11:00 Test Item Value Reference Range Interpretation Comments WHITE BLOOD CELL COUNT (BEAKER) 12.4 K/ L 3.5-10.5 H (test code = 775) RED BLOOD CELL COUNT (BEAKER) 2.43 M/ L 4.63-6.08 L (test code = 761) HEMOGLOBIN (BEAKER) (test code = 7.1 GM/DL 13.7-17.5 L 410) HEMATOCRIT (BEAKER) (test code = 22.7 % 40.1-51.0 L 411) MEAN CORPUSCULAR VOLUME (BEAKER) 93.4 fL 79.0-92.2 H (test code = 753) MEAN CORPUSCULAR HEMOGLOBIN 29.2 pg 25.7-32.2 (BEAKER) (test code = 751) MEAN CORPUSCULAR HEMOGLOBIN CONC 31.3 GM/DL 32.3-36.5 L (BEAKER) (test code = 752) RED CELL DISTRIBUTION WIDTH 17.0 % 11.6-14.4 H (BEAKER) (test code = 412) PLATELET COUNT (BEAKER) (test 184 K/CU MM 150-450 code = 756) MEAN PLATELET VOLUME (BEAKER) 11.0 fL 9.4-12.4 (test code = 754) NUCLEATED RED BLOOD CELLS 1 /100 WBC 0-0 H (BEAKER) (test code = 413) NEUTROPHILS RELATIVE PERCENT 84 % (BEAKER) (test code = 429) LYMPHOCYTES RELATIVE PERCENT 4 % (BEAKER) (test code = 430) MONOCYTES RELATIVE PERCENT 9 % (BEAKER) (test code = 431) EOSINOPHILS RELATIVE PERCENT 1 % (BEAKER) (test code = 432) BASOPHILS RELATIVE PERCENT 0 % (BEAKER) (test code = 437) NEUTROPHILS ABSOLUTE COUNT 10.46 K/ L 1.78-5.38 H (BEAKER) (test code = 670) LYMPHOCYTES ABSOLUTE COUNT 0.55 K/ L 1.32-3.57 L (BEAKER) (test code = 414) MONOCYTES ABSOLUTE COUNT (BEAKER) 1.13 K/ L 0.30-0.82 H (test code = 415) EOSINOPHILS ABSOLUTE COUNT 0.06 K/ L 0.04-0.54 (BEAKER) (test code = 416) BASOPHILS ABSOLUTE COUNT (BEAKER) 0.01 K/ L 0.01-0.08 (test code = 417) IMMATURE GRANULOCYTES-RELATIVE 2 % 0-1 H PERCENT (BEAKER) (test code = 2803) [id number] 02:48:00 Test Item Value Reference Range Interpretation Comments MAGNESIUM (BEAKER) 2.2 mg/dL 1.6-2.6 Specimen slightly (test code = 627) hemolyzed [id number] 02:48:00 Test Item Value Reference Range Interpretation Comments PHOSPHORUS (BEAKER) 3.9 mg/dL 2.3-4.7 Specimen slightly (test code = 604) hemolyzed PH, [id number] 02:08:00 Test Item Value Reference Range Interpretation Comments PH ARTERIAL (BEAKER) (test code = 383) 7.41 7.35-7.45 RAD, CHEST, 1 VIEW, NON [id number] 22:15:00Reason for exam:->line placementShould this be performed at the bedside?->YesFINAL REPORT RAD, CHEST, 1 VIEW, NON DEPT INDICATION: line placement COMPARISO N: Prior day's exam FINDINGS: Portable frontal view of the chest. IMPRESSION: Support Lines: Interval replacement of the left IJ central venous catheter tip overlying the cavoatrial junction. Otherwise unchanged support apparatus.Lungs and pleura: Lucency along the left hemidiaphragm may be relatedatelectasis however recommend continued attention on follow-up as a basilar pneumothorax could have this appearance. Increased atelectasis in the right perihilar region. Small bilateral pleural effusions. Heart and mediastinum: Stable contours. Stable surgical changes.Additional findings: None. Signed: [facility] Verified Date/Time: 05/26/2019 22:15:38 BASI METABOLIC [id number] 17:25:00 Test Item Value Reference Range Interpretation Comments SODIUM (BEAKER) 128 meq/L 136-145 L (test code = 381) POTASSIUM (BEAKER) 4.7 meq/L 3.5-5.1 Specimen slightly (test code = 379) hemolyzed CHLORIDE (BEAKER) 99 meq/L 98-107 (test code = 382) CO2 (BEAKER) (test 23 meq/L 22-29 code = 355) BLOOD UREA NITROGEN 38 mg/dL 7-21 H (BEAKER) (test code = 354) CREATININE (BEAKER) 4.47 mg/dL 0.57-1.25 H Specimen slightly (test code = 358) hemolyzed GLUCOSE RANDOM 221 mg/dL 70-105 H (BEAKER) (test code = 652) CALCIUM (BEAKER) 7.5 mg/dL 8.4-10.2 L (test code = 697) EGFR (BEAKER) (test 13 mL/min/1.73 ESTIMA SOHAIL GFR IS code = 1092) sq m NOT ACCURATE CREATININE CLEARANCE IN PREDICTING GLOMERULAR FILTRATION RATE . ESTIMATED GFR I S NOT APPLICABLE FOR DIALYSIS PATIEN TS. POCT-GLUCOSE [id number] 17:09:00 Test Item Value Reference Range Interpretation Comments POC-GLUCOSE METER 233 mg/dL 70-110 H TESTED AT [facility] 6720 ([facility]) (test code = [address] [facility] 1538) [address] TROPONIN [id number] 12:31:00 Test Item Value Reference Range Interpretation Comments TROPONIN I (BEAKER) (test code = 0.89 ng/mL 0.00-0.03 397) Troponin I (TnI) levels must be interpreted in the context of the presenting symptoms and the clinical findings. Elevated TnI levels indicate myocardial damage, but are not specific for ischemic heart disease. Elevated TnI levels are seen in patients with other cardiac conditions (including myocarditis and congestive heart failure), and slight TnI elevations occur in patients with other conditions, including sepsis, renal failure, acidosis, acute neurological disease, and persistent tachyarrhythmia.[id number] 12:26:00 Test Item Value Reference Range Interpretation Comments CALCIUM (BEAKER) (test code = 697) 7.7 mg/dL 8.4-10.2 L [id number] 12:24:00 Test Item Value Reference Range Interpretation Comments POTASSIUM (BEAKER) (test code = 4.4 meq/L 3.5-5.1 379) [id number] 12:24:00 Test Item Value Reference Range Interpretation Comments MAGNESIUM (BEAKER) (test code = 2.2 mg/dL 1.6-2.6 627) [id number] 12:24:00 Test Item Value Reference Range Interpretation Comments SODIUM (BEAKER) (test code = 381) 128 meq/L 136-145 L POCT-GLUCOSE [id number] 12:15:00 Test Item Value Reference Range Interpretation Comments POC-GLUCOSE METER 281 mg/dL 70-110 H TESTED AT [facility] 6720 (BEAKER) (test code = [address] [facility] 1538) [address] PH, [id number] 11:52:00 Test Item Value Reference Range Interpretation Comments PH ARTERIAL (BEAKER) (test code = 383) 7.36 7.35-7.45 RAD, CHEST, 1 VIEW, NON [id number] 08:05:00Reason for exam:->central line placementFINAL REPORT CLINICAL HISTORY: central line placement TECHNIQUE: 1 view of the chest. COMPARISON: None IMPRESSION: There is a right-sided dialysis catheter in the low right atrium. There is a left jugular line in the SVC. There is pulmonary vascular congestion with diffuse bilateral airspace opacities. There are small bilateral pleural effusions. There is enlargement of the cardiomediastinal silhouette with sternotomy wires. Signed: [place] Verified Date/Time:05/26/2019 08:05:54 Reading Location: [address] Neuro Reading Room TROPONIN [id number] 06:42:00 Test Item Value Reference Range Interpretation Comments TROPONIN I (BEAKER) (test code = 0.92 ng/mL 0.00-0.03 [facility]) Troponin I (TnI) levels must be interpreted in the context of the presenting symptoms and the clinical findings. Elevated TnI levels indicate myocardial damage, but are not specific for ischemic heart disease. Elevated TnI levels are seen in patients with other cardiac conditions (including myocarditis and congestive heart failure), and slight TnI elevations occur in patients with other conditions, including sepsis, renal failure, acidosis, acute neurological disease, and persistent tachyarrhythmia.TROPONIN [id number] 06:41:00 Test Item Value Reference Range Interpretation Comments TROPONIN I (BEAKER) (test code = 0.92 ng/mL 0.00-0.03 397) Troponin I (TnI) levels must be interpreted in the context of the presenting symptoms and the clinical findings. Elevated TnI levels indicate myocardial damage, but are not specific for ischemic heart disease. Elevated TnI levels are seen in patients with other cardiac conditions (including myocarditis and congestive heart failure), and slight TnI elevations occur in patients with other conditions, including sepsis, renal failure, acidosis, acute neurological disease, and persistent tachyarrhythmia.BASIC METABOLIC [id number] 06:23:00 Test Item Value Reference Range Interpretation Comments SODIUM (BEAKER) 129 meq/L 136-145 L (test code = 381) POTASSIUM (BEAKER) 5.0 meq/L 3.5-5.1 (test code = 379) CHLORIDE (BEAKER) 98 meq/L 98-107 (test code = 382) CO2 (BEAKER) (test 22 meq/L 22-29 code = 355) BLOOD UREA NITROGEN 44 mg/dL 7-21 H (BEAKER) (test code = 354) CREATININE (BEAKER) 5.21 mg/dL 0.57-1.25 H (test code = 358) GLUCOSE RANDOM 193 mg/dL 70-105 H (BEAKER) (test code = 652) CALCIUM (BEAKER) 7.6 mg/dL 8.4-10.2 L (test code = 697) EGFR (BEAKER) (test 11 mL/min/1.73 ESTIMA SOHAIL GFR IS code = 1092) sq m NOT ACCURATE CREATININE CLEARANCE IN PREDICTING GLOMERULAR FILTRATION RATE . ESTIMATED GFR I S NOT APPLICABLE FOR DIALYSIS PATIEN TS. PROTHROMBIN [id number] 06:20:00 Test Item Value Reference Range Interpretation Comments PROTIME (BEAKER) (test code = 15.6 seconds 11.9-14.2 H 759) INR (BEAKER) (test code = 370) 1.3 <=5.9 Effective 04/04/2019: PT Reference Range ChangeNew: 11.9-14.2 Previous: 11.7- 14.7RECOMMENDED COUMADIN/WARFARIN INR THERAPY RANGESSTANDARD DOSE: 2.0-3.0 Includes: PROPHYLAXIS for venous thrombosis, systemic embolization; TREATMENT for venous thrombosis and/or pulmonary embolus.HIGH RISK: Target INR is2.5-3.5 for patients wiht mechanical heart valves.[id number] 06:17:00 Test Item Value Reference Range Interpretation Comments PHOSPHORUS (BEAKER) (test code = 4.5 mg/dL 2.3-4.7 604) [id number] 06:17:00 Test Item Value Reference Range Interpretation Comments MAGNESIUM (BEAKER) (test code = 2.4 mg/dL 1.6-2.6 627) CBC W/PLT COUNT & AUTO [id number] 06:03:00 Test Item Value Reference Range Interpretation Comments WHITE BLOOD CELL COUNT (BEAKER) 12.0 K/ L 3.5-10.5 H (test code = 775) RED BLOOD CELL COUNT (BEAKER) 2.40 M/ L 4.63-6.08 L (test code = 761) HEMOGLOBIN (BEAKER) (test code = 6.7 GM/DL 13.7-17.5 L 410) HEMATOCRIT (BEAKER) (test code = 22.1 % 40.1-51.0 L 411) MEAN CORPUSCULAR VOLUME (BEAKER) 92.1 fL 79.0-92.2 (test code = 753) MEAN CORPUSCULAR HEMOGLOBIN 27.9 pg 25.7-32.2 (BEAKER) (test code = 751) MEAN CORPUSCULAR HEMOGLOBIN CONC 30.3 GM/DL 32.3-36.5 L (BEAKER) (test code = 752) RED CELL DISTRIBUTION WIDTH 17.0 % 11.6-14.4 H (BEAKER) (test code = 412) PLATELET COUNT (BEAKER) (test 311 K/CU MM 150-450 code = 756) MEAN PLATELET VOLUME (BEAKER) 10.4 fL 9.4-12.4 (test code = 754) NUCLEATED RED BLOOD CELLS 1 /100 WBC 0-0 H (BEAKER) (test code = 413) NEUTROPHILS RELATIVE PERCENT 76 % (BEAKER) (test code = 429) LYMPHOCYTES RELATIVE PERCENT 7 % (BEAKER) (test code = 430) MONOCYTES RELATIVE PERCENT 14 % (BEAKER) (test code = 431) EOSINOPHILS RELATIVE PERCENT 0 % (BEAKER) (test code = 432) BASOPHILS RELATIVE PERCENT 0 % (BEAKER) (test code = 437) NEUTROPHILS ABSOLUTE COUNT 9.18 K/ L 1.78-5.38 H (BEAKER) (test code = 670) LYMPHOCYTES ABSOLUTE COUNT 0.88 K/ L 1.32-3.57 L (BEAKER) (test code = 414) MONOCYTES ABSOLUTE COUNT (BEAKER) 1.70 K/ L 0.30-0.82 H (test code = 415) EOSINOPHILS ABSOLUTE COUNT 0.04 K/ L 0.04-0.54 (BEAKER) (test code = 416) BASOPHILS ABSOLUTE COUNT (BEAKER) 0.03 K/ L 0.01-0.08 (test code = 417) IMMATURE GRANULOCYTES-RELATIVE 2 % 0-1 H PERCENT (BEAKER) (test code = 1531) TSH/FREE T4 IF [id number] 22:17:00 Test Item Value Reference Range Interpretation Comments THYROID STIMULATING HORMONE 3.33 uIU/mL 0.35-4.94 (BEAKER) (test code = 772) TROPONIN [id number] 21:59:00 Test Item Value Reference Range Interpretation Comments TROPONIN I (BEAKER) (test code = 1.04 ng/mL 0.00-0.03 HH 397) Troponin I (TnI) levels must be interpreted in the context of the presenting symptoms and the clinical findings. Elevated TnI levels indicate myocardial damage, but are not specific for ischemic heart disease. Elevated TnI levels are seen in patients with other cardiac conditions (including myocarditis and congestive heart failure), and slight TnI elevations occur in patients with other conditions, including sepsis, renal failure, acidosis, acute neurological disease, and persistent tachyarrhythmia.B-TYPE NATRIURETIC FACTOR (BNP) 2019-05-25 21:55:00 Test Item Value Reference Range Interpretation Comments B-TYPE NATRIURETIC PEPTIDE 8693 pg/mL 0-100 H (BEAKER) (test code = 700) C-REACTIVE [id number] 21:51:00 Test Item Value Reference Range Interpretation Comments C-REACTIVE PROTEIN (BEAKER) (test 13.88 mg/dL 0.00-0.50 H code = 676) COMPREHENSIVE METABOLIC [id number] 21:51:00 Test Item Value Reference Range Interpretation Comments TOTAL PROTEIN 6.4 gm/dL 6.0-8.3 (BEAKER) (test code = 770) ALBUMIN (BEAKER) 3.1 g/dL 3.5-5.0 L (test code = 1145) ALKALINE PHOSPHATASE 142 U/L 40-150 (BEAKER) (test code = 346) BILIRUBIN TOTAL 0.8 mg/dL 0.2-1.2 (BEAKER) (test code = 377) SODIUM (BEAKER) (test 128 meq/L 136-145 L code = 381) POTASSIUM (BEAKER) 5.0 meq/L 3.5-5.1 (test code = 379) CHLORIDE (BEAKER) 96 meq/L 98-107 L (test code = 382) CO2 (BEAKER) (test 22 meq/L 22-29 code = 355) BLOOD UREA NITROGEN 41 mg/dL 7-21 H (BEAKER) (test code = 354) CREATININE (BEAKER) 4.98 mg/dL 0.57-1.25 H (test code = 358) GLUCOSE RANDOM 243 mg/dL 70-105 H (BEAKER) (test code = 652) CALCIUM (BEAKER) 7.7 mg/dL 8.4-10.2 L (test code = 697) AST (SGOT) (BEAKER) 35 U/L 5-34 H (test code = 353) ALT (SGPT) (BEAKER) 14 U/L 6-55 (test code = 347) EGFR (BEAKER) (test 12 mL/min/1.73 ESTIMA SOHAIL GFR IS code = 1092) sq m NOT ACCURATE CREATININE CLEARANCE IN PREDICTING GLOMERULAR FILTRATION RATE . ESTIMATED GFR I S NOT APPLICABLE FOR DIALYSIS PATIEN TS. CBC W/PLT COUNT & AUTO [id number] 21:20:00 Test Item Value Reference Range Interpretation Comments WHITE BLOOD CELL COUNT (BEAKER) 13.2 K/ L 3.5-10.5 H (test code = 775) RED BLOOD CELL COUNT (BEAKER) 2.33 M/ L 4.63-6.08 L (test code = 761) HEMOGLOBIN (BEAKER) (test code = 6.8 GM/DL 13.7-17.5 L 410) HEMATOCRIT (BEAKER) (test code = 21.6 % 40.1-51.0 L 411) MEAN CORPUSCULAR VOLUME (BEAKER) 92.7 fL 79.0-92.2 H (test code = 753) MEAN CORPUSCULAR HEMOGLOBIN 29.2 pg 25.7-32.2 (BEAKER) (test code = 751) MEAN CORPUSCULAR HEMOGLOBIN CONC 31.5 GM/DL 32.3-36.5 L (BEAKER) (test code = 752) RED CELL DISTRIBUTION WIDTH 17.4 % 11.6-14.4 H (BEAKER) (test code = 412) PLATELET COUNT (BEAKER) (test 314 K/CU MM 150-450 code = 756) MEAN PLATELET VOLUME (BEAKER) 10.2 fL 9.4-12.4 (test code = 754) NUCLEATED RED BLOOD CELLS 1 /100 WBC 0-0 H (BEAKER) (test code = 413) NEUTROPHILS RELATIVE PERCENT 80 % (BEAKER) (test code = 429) LYMPHOCYTES RELATIVE PERCENT 7 % (BEAKER) (test code = 430) MONOCYTES RELATIVE PERCENT 11 % (BEAKER) (test code = 431) EOSINOPHILS RELATIVE PERCENT 0 % (BEAKER) (test code = 432) BASOPHILS RELATIVE PERCENT 0 % (BEAKER) (test code = 437) NEUTROPHILS ABSOLUTE COUNT 10.48 K/ L 1.78-5.38 H (BEAKER) (test code = 670) LYMPHOCYTES ABSOLUTE COUNT 0.88 K/ L 1.32-3.57 L (BEAKER) (test code = 414) MONOCYTES ABSOLUTE COUNT (BEAKER) 1.50 K/ L 0.30-0.82 H (test code = 415) EOSINOPHILS ABSOLUTE COUNT 0.02 K/ L 0.04-0.54 L (BEAKER) (test code = 416) BASOPHILS ABSOLUTE COUNT (BEAKER) 0.02 K/ L 0.01-0.08 (test code = 417) IMMATURE GRANULOCYTES-RELATIVE 2 % 0-1 H PERCENT (BEAKER) (test code = 5851)
--- OUTSIDE RECORDS SUMMARY | 2020-11-14 13:39 | XMS REPORT ---
:1955 Author Organization [facility] Address [address], 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 Active 393744158 use of insulin Problem Type 2 diabetes E11.65 Active 959203864734411 mellitus with hyperglycemia Problem Orthostatic I95.1 Active 22789755 hypotension Problem Anemia, D64.9 Active 752140555 unspecified type Problem CKD (chronic N18.3 Active 929701660 kidney disease), stage III Problem Systolic I50.20 Active 418046821 congestive heart failure, unspecified HF chronicity Problem Dependence on Z99.2 Active 637754337 renal dialysis Problem Coronary artery I25.10 Active 7728961698840 disease involving [place] coronary artery of [place] heart, angina presence unspecified Problem End stage renal N18.6 Active 428058424 disease Problem Type 2 diabetes E11.29 Active 31665682 mellitus with other diabetic kidney complication Problem Hypothyroidism, E03.9 Active 50365720 unspecified type Problem HTN, goal below I10 Active 25192124 140/90 Problem Acute on chronic I50.23 Active 398191209 systolic congestive heart failure Problem NSTEMI (non-ST I21.4 Active 41125830 elevated myocardial infarction) ALLERGIES No Known Allergies ENCOUNTERS from 1955 to 2020-11-10 Encounter Location Date Provider Diagnosis Nabila Pierre [address], [place] [address] IMMUNIZATIONS No Information SOCIAL HISTORY Tobacco Use: [...] No information MEDICATIONS Medication SIG (Take, Route, Notes Start [...] Information RESULTS No Results REASON FOR VISIT anxiety MEDICAL (GENERAL) HISTORY Type Description Date Medical History Systolic congestive heart failure, unspe cified HF chronicity Medical History Coronary artery disease involving [place] coronary artery of [place] heart, angina presence unspeci fied Medical History oil heaterman current use of insulin Medical History Type 2 diabetes mellitus with other diab etic kidney complication Medical History Type 2 diabetes mellitus with hyperglyce anum Medical History CKD (chronic kidney disease), stage III Medical History Mixed hyperlipidemia Medical History Orthostatic hypotension Medical History Anemia, unspecified type Medical History Stented coronary artery Medical History Hypothyroidism, unspecified type Surgical History Stents 2014,2017 Surgical History CABG 3V- [facility] 06/2019 Goals Section No Information Health Concerns No Information MEDICAL EQUIPMENT No Information MENTAL STATUS No Information FUNCTIONAL STATUS No Information ASSESSMENTS No Information PLAN OF TREATMENT Medication Medication Name Sig [...] Orally Once a day for 90 days Next Appt Details Provider Name:Jack Corley, 2020-11-13 02:50:00 PM, [address], [place], [address], Provider Name:Jack Corley, 2020-12-31 11:00:00 AM, [address], [place], [address], Provider Name:Jack Corley, 2021-01-07 01:00:00 PM, [address], [place], [address], Insurance Providers Payer Name Payer Address Payer Insured Patient Coverage Cover age Phone Name Relationship to Start Date End Date Insured [employer] [address] [address] [phone] John Villalpando self [facility] [phone] MEDICARE Attn Part B [phone] John Villalpando self [facility] Claims [phone] [facility] [address]
--- NOTE | 2020-11-14 17:23 | RAD REPORT ---
EXAM DESCRIPTION: CT - Abdomen Pelvis Wo Contrast - 11/14/2020 4:59 pm CLINICAL HISTORY: ABDOMINAL DISTENTION COMPARISON: Chest Abd Pelvis Wo Con dated 05/25/2019 TECHNIQUE: Axial [address] imaging of the abdomen and pelvis was performed without IV contrast. No IV contrast was given because of allergy, abnormal renal function, patient refusal or physician re quest. No oral contrast. All CT scans are performed using dose optimization technique as appropriate and may include automated exposure control or mA/KV adjustment according to patient size. FINDINGS: Large bilateral pleural effusions are present, slightly worse on the right, and slightly w orse than seen May 2019. Heart size is enlarged with no pericardial effusion. Liver has a nodular capsule contour. No focal liver parenchymal lesion on noncontrast imaging. Spleen and pancreas show no suspicious findings. Punctate gallstones are seen on the dependent portion of t he gallbladder. No gallbladder dilatation or wall thickening. No biliary tree dilatation seen. No hydronephrosis or suspicious renal mass. No significant adrenal finding. Isodense renal masses an d pyelonephritis cannot be excluded in the absence of IV contrast. The urinary bladder is without sig nificant finding. No dilated bowel loops or bowel wall thickening. No free air or pneumatosis. Patient has a large vol ume of ascites. A few small mesenteric lymph nodes are present. No bulky lymphadenopathy. Small right -side and moderate size left side fat filled inguinal hernias present. Disc and bone degenerative changes are present. No acute bone process identified. Vascular assessment is limited in the absence of IV contrast. IMPRESSION: Large volume of ascites present. Liver shows cirrhotic changes but no focal lesions seen on noncontrast imaging. Cholelithiasis present without findings to confirm cholecystitis. Biliary tree is normal in diameter. No acute GI process seen. There are few fluid-filled nondilated small bowel loops that could reflect a nonspecific enteritis. Large bilateral pleural effusions similar to slightly increased over May 2019. Full assessment is limited is the absence of IV contrast.
[2020-11-14 17:37] LABS: Absolute Lymphocytes (CBC) 0.4 K/uL (0.7-4.9); Basophils % 0.4 % (0-1.3); Hematocrit 29.9 % (39.6-49.0); Lymphocytes % 5.3 % (15.3-44.8); MPV 8.5 fL (7.6-11.3); RBC Red Blood Cell Count 3.39 M/uL (4.33-5.43)
[2020-11-14 17:46] LABS: Protime INR 1.11
[2020-11-14 18:07] LABS: ALT/SGPT 19 U/L (12-78); AST/SGOT 25 U/L (15-37); Albumin 3.2 g/dL (3.4-5.0); Alkaline Phosphatase 157 U/L (45-117); BUN Blood Urea Nitrogen 81 mg/dL (7-18); Bicarbonate 22 mmol/L (21-32); Bilirubin Direct 0.4 mg/dL (0-0.2); Bilirubin Total 0.7 mg/dL (0.2-1.0); Glucose Level 273 mg/dL (74-106); Lipase 6190 U/L (73-393); Potassium 4.1 mmol/L (3.5-5.1); Protein, Total 8.1 g/dL (6.4-8.2); Sodium Level 134 mmol/L (136-145)
[2020-11-14 18:13] LABS: NT PRO-BNP > 175000 pg/mL (<125)
--- NOTE | 2020-11-14 18:26 | ER ---
Nurse's Notes [facility] Name: Benji Forte Age: 65 yrs Sex: Male : 1955 Arrival Date: 11/14/2020 Time: 13:36 Bed 23 Private MD: Diagnosis: Ascites;Pleural effusion, not elsewhere classified;End stage renal disease;Other and unspecified cirrhosis of liver Presentation: 11/14 14:18 Chief complaint: Patient states: abd bloating x 3 month. Pt believes it is because he ss is unable to pass gas. Coronavirus screen: Client denies travel out of the [place] in the last 14 days. Ebola Screen: Patient denies exposure to infectious person. Patient denies travel to an Ebola-affected area in the 21 days before illness onset. Initial Sepsis Screen: Does the patient meet any 2 criteria? No. Patient's initial sepsis screen is negative. Does the patient have a suspected source of infection? No. Patient's initial sepsis screen is negative. Risk Assessment: Do you want to hurt yourself or someone else? Patient reports no desire to harm self or others. Onset of symptoms was August 2020. 14:18 Method Of Arrival: Ambulatory ss 14:18 Acuity: MILADYS 3 ss Historical: - Allergies: 14:20 No Known Allergies; ss - PMHx: 14:20 chronic kidney disease; Hyperlipidemia; Diabetes - NIDDM; Hypertension; Hypothyroidism; ss CHF; Myocardial infarction; RENAL FAILURE; Anemia; - PSHx: 14:20 open heart surgery 05/18/19; ss - Immunization history:: Adult Immunizations up to date. - Social history:: Smoking status: Patient denies any tobacco usage or history of. - Family history:: not pertinent. - Hospitalizations: : No recent hospitalization is reported. Screenin:40 Abuse screen: Denies threats or abuse. Denies injuries from another. Nutritional zb screening: No deficits noted. Tuberculosis screening: No symptoms or risk factors identified. Fall Risk None identified. Assessment: 16:40 General: Appears in no apparent distress. uncomfortable, Behavior is calm, cooperative, zb appropriate for age. Pain: Complains of pain in abdomen diffusely Pain currently is 10 out of 10 on a pain scale. Quality of pain is described as pressure, tight. Neuro: Level of Consciousness is awake, alert, obeys commands, Oriented to person, place, time, situation. Cardiovascular: Heart tones S1 S2 muffled Capillary refill < 3 seconds in bilateral fingers Patient's skin is warm and dry. Pulses are all present. Edema is 3+ to left ankle, left foot, left toes, right ankle, right foot and right toes pitting to left midcalf, left ankle, right midcalf, right ankle, right foot and right toes Dialysis shunt: in the right chest, left arm . Respiratory: Reports shortness of breath at rest Airway is patent Respiratory effort is even, unlabored, Respiratory pattern is regular, symmetrical, Breath sounds are clear bilaterally. the patient has moderate shortness of breath. GI: Abdomen is round distended, noted to have ascites, Bowel sounds present X 4 quads. Abd is soft and non tender X 4 quads. : No signs and/or symptoms were reported regarding the genitourinary system. EENT: No signs and/or symptoms were reported regarding the EENT system. Derm: Skin is intact, is thin, Skin is Skin is jaundiced. Musculoskeletal: Circulation, motion, and sensation intact. Capillary refill < 3 seconds, in bilateral fingers. Range of motion:. 17:40 Reassessment: Patient appears in no apparent distress at this time. Patient and/or zb family updated on plan of care and expected duration. Pain level reassessed. Patient is alert, oriented x 3, equal unlabored respirations, skin warm/dry/pink. family at bedside pt given warmed. blankets. no c/o at this time. 17:50 Reassessment: ECP at bedside discussing plan of care w/ patient and family. zb 18:19 Reassessment: Patient appears in no apparent distress at this time. Patient and/or zb family updated on plan of care and expected duration. Pain level reassessed. Patient is alert, oriented x 3, equal unlabored respirations, skin warm/dry/pink. pt and at bedside pending transfer orders. 19:16 Reassessment: Patient appears in no apparent distress at this time. Patient and/or zb family updated on plan of care and expected duration. Pain level reassessed. Patient is alert, oriented x 3, equal unlabored respirations, skin warm/dry/pink. pt and in room awaiting transfer. explain to pt/ they are NPO per MD discretion. 19:32 Reassessment: left sons name and daugher in law. CLYDE FORTE [phone] / REGINA FORTE [phone]. report given to HIRA magana. 19:38 Reassessment: Patient appears in no apparent distress at this time. Patient and/or ss family updated on plan of care and expected duration. Pain level reassessed. Patient is alert, oriented x 3, equal unlabored respirations, skin warm/dry/pink. Report given to HIRA Harrison at [facility]. Awaiting EMS transportation. Vital Signs: 14:18 BP 119 / 74; Pulse 87; Resp 16; Temp 97.8(TE); Pulse Ox 95% on R/A; Weight 77.11 kg; ss Height 5 ft. 4 in. (162.56 cm); Pain 10/10; 16:40 BP 122 / 75; Pulse 80; Resp 18; Pulse Ox 95% on R/A; zb 17:20 BP 128 / 75; Pulse 81; Resp 18; Pulse Ox 97% on R/A; zb 18:18 BP 121 / 81; Pulse 80; Resp 16; Pulse Ox 97% on R/A; zb 19:00 BP 122 / 76; Pulse 81; Resp 17; Pulse Ox 96% on R/A; ss 14:18 Body Mass Index 29.18 (77.11 kg, 162.56 cm) ED Course: 13:36 Patient arrived in ED. ag5 14:19 Triage completed. ss 14:20 Arm band placed on right wrist. ss 16:29 Eugene Simons MD is Attending Physician. rn 16:39 Kaitlyn Hart, HIRA is Primary Nurse. zb 16:59 CT Abd/Pelvis - Without Contrast In Process Unspecified. EDMS 17:00 Inserted saline lock: 20 gauge in right antecubital area, using aseptic technique. zb 17:48 Patient has correct armband on for positive identification. Bed in low position. Call zb light in reach. Adult w/ patient. Pulse ox on. NIBP on. 17:48 initiated a transfer with Patience from the [facility]. eb 17:48 No provider procedures requiring assistance completed. zb 18:15 connected the costume designer retail sales consultant for [facility] with Dr. Simons for patient eb transfer consultation. 18:26 administrative approval given vinnie Patience Abraham/ patient has been accepted to [facility] bed 2443/ Dr. Jean-Pierre Moran has accepted the patient in transfer/ report to be called to [phone]. Administered Medications: No medications were administered Outcome: 18:26 ER care complete, transfer ordered by . rn 21:00 Patient left the ED. lp1 Signatures: Dispatcher [employer] EDMS Eugene Simons MD MD rn Smirch, Shelby, RN RN ss Michelle Wong RN RN lp1 Gena Hinton Ajare 5 Kaitlyn Hart RN RN zb Corrections: (The following items were deleted from the chart) 19:25 19:00 BP 122 / 76; Pulse 81bpm; Resp 96bpm; Pulse Ox 96% RA; zb ss 19:36 19:32 Reassessment: left sons name and daugher in law. CLYDE FORTE [phone] / zmiguel a FORTE [phone] zb
--- NOTE | 2020-11-14 18:26 | EDPHYS ---
Physician Documentation [facility] Name: Benji Villalpando Age: 65 yrs Sex: Male : 1955 Arrival Date: 11/14/2020 Time: 13:36 Bed 23 Private MD: ED Physician Eugene Simons HPI: 11/14 16:40 This 65 yrs old Male presents to ER via Ambulatory with complaints of rn Abdominal distension. 16:40 The patient presents with abdominal distention. Onset: The symptoms/episode rn began/occurred 3 month(s) ago. The symptoms do not radiate. Associated signs and symptoms: Pertinent positives: constipation, shortness of breath, Pertinent negatives: nausea and vomiting, anorexia, blood in stools, fever, palpitations, vomiting. The symptoms are described as dull. Modifying factors: The symptoms are alleviated by nothing, the symptoms are aggravated by nothing. Severity of pain: At its worst the pain was moderate in the emergency department the pain is unchanged. The patient has not experienced similar symptoms in the past. The patient has not recently seen a physician. Reports abd distension and discomfort for 3 months, reports constipation and at times has difficulty passing gas. No fever. No vomiting. No blood in stool. On dialysis, compliant. No known liver problems. . Historical: - Allergies: 14:20 No Known Allergies; ss - PMHx: 14:20 chronic kidney disease; Hyperlipidemia; Diabetes - NIDDM; Hypertension; Hypothyroidism; ss CHF; Myocardial infarction; RENAL FAILURE; Anemia; - PSHx: 14:20 open heart surgery 05/18/19; ss - Immunization history:: Adult Immunizations up to date. - Social history:: Smoking status: Patient denies any tobacco usage or history of. - Family history:: not pertinent. - Hospitalizations: : No recent hospitalization is reported. ROS: 16:40 Constitutional: Negative for fever, chills, and weight loss, Eyes: Negative for injury, rn pain, redness, and discharge, Neck: Negative for injury, pain, and swelling, Cardiovascular: Negative for chest pain, palpitations Respiratory: Negative for cough, wheezing, and pleuritic chest pain, Abdomen/GI: + abd distension and constipation Back: Negative for injury and pain, MS/Extremity: Negative for injury and deformity, Skin: Negative for injury, rash, and discoloration, Neuro: Negative for headache, weakness, numbness, tingling, and seizure. Exam: 16:40 Constitutional: Dialysis patient, no acute distress Head/Face: Normocephalic, rn atraumatic. Cardiovascular: Regular rate and rhythm. No pulse deficits. Respiratory: No increased work of breathing, no retractions or nasal flaring. Diminished at bases. Abdomen/GI: + abd distension with + fluid wave, non-tender, no rebound Back: No spinal tenderness. MS/ Extremity: Pulses equal, no cyanosis. 3+ pitting edema bilateral lower ext. Neuro: Awake and alert, GCS 15 Vital Signs: 14:18 BP 119 / 74; Pulse 87; Resp 16; Temp 97.8(TE); Pulse Ox 95% on R/A; Weight 77.11 kg; ss Height 5 ft. 4 in. (162.56 cm); Pain 10/10; 16:40 BP 122 / 75; Pulse 80; Resp 18; Pulse Ox 95% on R/A; zb 17:20 BP 128 / 75; Pulse 81; Resp 18; Pulse Ox 97% on R/A; zb 18:18 BP 121 / 81; Pulse 80; Resp 16; Pulse Ox 97% on R/A; zb 19:00 BP 122 / 76; Pulse 81; Resp 17; Pulse Ox 96% on R/A; ss 14:18 Body Mass Index 29.18 (77.11 kg, 162.56 cm) ss MDM: 16:29 Patient medically screened. rn 18:21 Differential diagnosis: Cirrhosis, CHF, ESRD, ascites, pancreatitis. Data reviewed: rn vital signs, nurses notes, lab test result(s), radiologic studies, CT scan, and as a result, I will admit patient. Counseling: I had a detailed discussion with the patient and/or guardian regarding: the historical points, exam findings, and any diagnostic results supporting the discharge/admit diagnosis, lab results, radiology results, the need for further work-up and treatment in the hospital, the need to transfer to another facility, [facility][1] does not immediately have the required specialist. ED course: Pt with signs of cirrhosis on CT, liver function studies ok, likely cardiogenic or renal cause. Patient states has not had ETOH in 40 years. Pt requires paracentesis and further w/u, no GI here, accepted for transfer to [facility]. . 11/14 16:38 Order name: Basic Metabolic Panel; Complete Time: 18:27 rn 11/14 16:38 Order name: CBC with Diff; Complete Time: 18:27 rn 11/14 16:38 Order name: Hepatic Function; Complete Time: 18:27 rn 11/14 16:38 Order name: Lipase; Complete Time: 18:27 rn 11/14 16:39 Order name: BNP; Complete Time: 18:27 rn 11/14 16:39 Order name: PT-INR; Complete Time: 18:27 rn 11/14 16:38 Order name: IV Saline Lock; Complete Time: 17:24 rn 11/14 16:38 Order name: Labs collected and sent; Complete Time: 17:24 rn 11/14 16:38 Order name: CT Abd/Pelvis - Without Contrast; Complete Time: 17:36 rn 11/14 16:39 Order name: Ptt, Activated; Complete Time: 18:27 rn 11/14 19:10 Order name: SARS-COV-2 RT PCR EDMS Administered Medications: No medications were administered Disposition: 11/14/20 18:26 Transfer ordered to [facility]. Diagnosis are Ascites, Pleural effusion, not elsewhere classified, End stage renal disease, Other and unspecified cirrhosis of liver. - Reason for transfer: Higher level of care. - Accepting physician is Jean-Pierre Corbin. - Condition is Stable. - Problem is an ongoing problem. - Symptoms have worsened. Signatures: Dispatcher [employer] EDMS Eugene Simons MD MD rn Smirch, Shelby, RN RN ss Pena, Laura, RN RN lp1 Gena Hinton Corrections: (The following items were deleted from the chart) 18:21 18:19 CORONAVIRUS+MR.LAB.BRZ ordered. EDAK EDMS 18:34 18:26 11/14/2020 18:26 Transfer ordered to [facility]. eb Diagnosis is Ascites; Pleural effusion, not elsewhere classified; End stage renal disease; Other and unspecified cirrhosis of liver. Reason for transfer: Higher level of care. Accepting physician is . Condition is Stable. Problem is an ongoing problem. Symptoms have worsened. rn 21:00 18:34 11/14/2020 18:26 Transfer ordered to [facility]. lp1 Diagnosis is Ascites; Pleural effusion, not elsewhere classified; End stage renal disease; Other and unspecified cirrhosis of liver. Reason for transfer: Higher level of care. Accepting physician is Jean-Pierre Corbin. Condition is Stable. Problem is an ongoing problem. Symptoms have worsened. eb
== END 2020-11-14 21:00 | disposition short-term general hospital (02) ==
LOC: ER 13:33
DX: R18.8 Other ascites (principal); K74.60 Unspecified cirrhosis of liver; J90 Pleural effusion, not elsewhere classified; N18.6 End stage renal disease; Z20.822 Contact with and (suspected) exposure to COVID-19
CPT/HCPCS: 85025; 80048; 36415; 85610; 80076; 85730; 83690; 83880; 74176; 99284; U0003

== ENCOUNTER 2021-05-07 04:39 | Emergency (ER) | payer OTHER ==
--- OUTSIDE RECORDS SUMMARY | 2021-05-07 04:52 | XMS REPORT | Continuity of Care Document ---
:1955 Author Organization [facility] t Address [address] [place] [address] Care Team Providers Name Role Phone Jack Corley DO [facility]avez Primary Care Physician [phone] Jose MIRZA Attending Clinician Unavailable NACHO CANTOR Attending Clinician Unavailable Nacho Cantor MD Attending Clinician Diomedes [facility] Attending Clinician Tommie Oneill DO Attending Clinician Allegra Arreola Attending Clinician Unavailable Ana Cook MD Attending Clinician [phone] Graciela HEWITT Attending Clinician Unavailable RODRIGUE Attending Clinician Unavailable NACHO CANTOR Admitting Clinician Unavailable Graciela HEWITT Admitting Clinician Unavailable Payers Payer Name Policy Type Policy Effective Date Expiration Date Sour ce Number TEXANPLUSTEXANPLUS HMO [id number] [id number] 2020-Pre 00:00:00 [facility] Problems Condition Condition Condition Status Onset Resolution Last Treating Co mments Source Name Details Category Date Date Treatment Clinician Date Anasarca Anasarca Disease [facility] 00 [place] Cardiogeni Cardiogeni Disease Active [facility] shock c shock 05-25 [facility] - [facility]: Medical 00 [place] ESRD (end ESRD (end Disease Active [facility] stage stage [facility] - renal renal Medical disease) disease) Center on on dialysis dialysis Allergies, Adverse Reactions, Alerts Allergy Allergy Status Severity Reaction(s) Onset Inactive Treating Comm ents Source Name Type Date Date Clinician No Known DA Active [facility]ie 5-16 Clear s 00:00: [place] 00 [facility] Social History Social Habit Start Date Stop Date Quantity Comments Source [facility] History [facility] - [facility] B[facility] Sex Assigned [facility] Alcohol intake 2020-11-25 2020[facility]11-25 [facility] non-drinker of Medical Ce nter alcohol (finding) History [facility] 2019-05-25 2019-05-[address] [facility] - Alcohol Frequency 00:00:00 00:00:00 [facility] History of tobacco 1978-11-[address] [facility] - use 00:00:00 [facility] Smoking Status Start Date Stop Date Source Former smoker 2020-11-25 00:00:00 2020-11-25 00:00:00 [facility] Medications Ordered Filled Start Stop Current Ordering Indication Dosage Frequency Signature Comments Components Source Medication Medication Date Date Medication? Clinician (SIG) Name Name levothyroxi 2021- No 125ug Take [address] ne 11-22 tablet [facility] - (SYNTHROID, 00:00: 23:59 (125 mcg M edical LEVOTHROID) 00 :00 total) by Alanna ter 125 MCG mouth tablet Every morning on an empty stomach. losartan No 12.5mg QD Take 0.[address] (COZAAR) 25 -16 -16 tablets Luke s - MG tablet 00:00: 23:59 (12.5 mg Med ical 00 :00 total) by Center mouth daily. mINOCYCLine 2020- No 100mg Take [address] (MINOCIN,DY -16 -20 capsule Luke s - NACIN) 100 00:00: 23:59 (100 mg Med ical MG capsule 00 :00 total) by [facility] mouth every 12 (twelve) hours for 4 days. linaGLIPtin Yes 5mg QD Take [address] (TRADJENTA) 1-15 by mouth Luke s - 5 mg Tab 12:46: daily. Medical 23 [place] aspirin 81 Yes 81mg QD Take [address] MG chewable 1-15 by mouth Luke s - tablet 12:46: daily. Medical 23 [place] atorvastati Yes 40mg QD Take [address] [facility] (LIPITOR) 1-15 by mouth Luke s - 80 MG 12:46: daily . Medical tablet 23 [place] clopidogrel Yes 75mg QD Take [address] (PLAVIX) 75 1-15 by mouth Luke s - mg tablet 12:46: daily. Medica l 23 [place] senna Yes 2{tbl} QD Take [address] (SENOKOT) 1-15 tablets by Luke s - 8.6 mg 12:46: mouth Medical tablet 23 daily. [place] levothyroxi 2020- No 88ug Take [address] ne 1-15 01-15 mcg by [facility]ukes - (SYNTHROID, 09:50: 00:00 mouth Medi konrad LEVOTHROID) 50 :00 Every Center 88 MCG morning on tablet an empty stomach. traZODone No 100mg QD Take [address] (DESYREL) 1-15 01-15 mg by [facility] - 100 MG 09:50: 00:00 mouth Medical tablet 50 :00 nightly. [place] traZODone Yes 50mg QD Take 0.[address] (DESYREL) 1-15 tablets [facility] - 100 MG 00:00: (50 mg Medical tablet 00 total) by Center mouth nightly. midodrine Yes Three [facility] (PROAMATINE - times a [facility] - ) 10 MG [...] 23:59 subcutaneo Medic al (LEVEMIR) 00 :00 usly Center 100 unit/mL daily. injection gabapentin 2019- No 100mg QD Take [address] (NEURONTIN) 06-08 capsule Luke s - 100 MG 00:00: 23:59 (100 mg Medical capsule 00 :00 total) by Center mouth nightly. acetaminoph 2019- No 650mg Take [address] en 06-08 07-27 tablets [facility] - (TYLENOL) 00:00: 23:59 (650 mg Medi konrda 325 MG 00 :00 total) by Center [...] Corley TABLET BY [facility] - MOUTH AT [facility] BEDTIME l [facility] ent Clinics Midodrine Midodrine Yes Jack [address] HCl HCl Corley [facility] l [facility] Clinics Lorazepam Lorazepam Yes Jack [address] Corley as needed [facility] - Memoria [facility] Clinics Synthroid Synthroid Yes Jack [address] Corley on an [facility]ukes - empty [facility] stomach in l the [facility] morning ent Clinics Atorvastati Atorvastati Yes Jack [address] n Calcium n Calcium Corley Luke s - Memoria l [facility] ent Clinics Vital Signs Vital Name Observation Time Observation Value Comments Source Systolic blood 2020-11-21 11:01:00 107 mm[Hg] [facility] Diastolic blood 2020-11-21 11:01:00 56 mm[Hg] [facility] Heart rate 2020-11-21 11:01:00 79 /min [facility] Body temperature 2020-11-21 11:01:00 36.33 Clary [facility] Respiratory rate 2020-11-21 11:01:00 14 /min [facility] Oxygen saturation in 2020-11-21 11:01:00 98 /min [facility] Arterial blood by Medical Ce nter Pulse oximetry Body weight 2020-11-20 10:19:00 71.9 kg [facility] BMI 2020-11-20 10:19:00 25.58 kg/m2 [facility] Procedures Procedure Date / Time Performing Clinician Source Performed POCT-GLUCOSE METER 2020-11-21 11:03:00 Vaughn Hercules V. [facility] POCT-GLUCOSE METER 2020-11-21 07:48:00 Vaughn Hercules V. [facility] MAGNESIUM 2020-11-21 06:21:00 Aneesh Rodriguez [facility] BASIC METABOLIC PANEL 2020-11-21 06:21:00 Aneesh Rodriguez I [facility] (7) [facility] CBC (HEMOGRAM ONLY) 2020-11-21 06:21:00 Aneesh Rodriguez [facility] HEPATIC FUNCTION PANEL 2020-11-21 06:21:00 Brent Devine [facility] POCT-GLUCOSE METER 2020-11-20 21:32:00 Vaughn Hercules V. [facility] XR CHEST 1 VIEW 2020-11-20 18:50:00 Aneesh Rodriguez [facility] PORTABLE/BEDSIDE [facility] POCT-GLUCOSE METER 2020-11-20 18:17:00 Vaughn Hercules V. [facility] POCT-GLUCOSE METER 2020-11-20 16:52:00 Vaughn Hercules V. [facility] BLOOD GAS, ARTERIAL 2020-11-20 14:29:22 Callie Arreola [facility] SODIUM NA-STAT LAB 2020-11-20 14:29:22 Callie Arreola [facility] POTASSIUM-STAT LAB 2020-11-20 14:29:22 [facility] 2020-11-20 14:29:22 Callie Arreola C [facility] HGB/HCT (H&H) - STAT LAB 2020-11-20 14:29:22 Callie Arreola [facility] HEMODIALYSIS INPATIENT 2020-11-20 12:30:[address] [facility] S [facility] AICD LEADS INSERTION 2020-11-20 12:28:00 Reshma Cook [facility] (SINGLE) [facility] POCT-GLUCOSE METER 2020-11-20 09:09:00 Vaughn Hercules V. [facility] MAGNESIUM 2020-11-20 03:36:00 Aneesh Rodriguez [facility] BASIC METABOLIC PANEL 2020-11-20 03:36:00 Aneesh Rodriguez [place] [id number]) [facility] CBC (HEMOGRAM ONLY) 2020-11-20 03:36:00 Aneesh Rodriguez [facility] PROTHROMBIN TIME/INR 2020-11-20 03:36:00 Aneesh Rodriguez [facility] POCT-GLUCOSE METER 2020-11-19 21:01:00 Vaughn Hercules V. [facility] POCT-GLUCOSE METER 2020-11-19 17:36:00 Vaughn Hercules V. [facility] ECG 12-LEAD 2020-11-19 14:50:26 Aneesh Rodriguez [facility] POCT-GLUCOSE METER 2020-11-19 12:10:00 [facility] TYPE AND SCREEN, 2020-11-19 11:40:[address] [facility] [place] [place] POCT-GLUCOSE METER 2020-11-19 08:26:00 Vaughn Hercules V. [facility] HEPATIC FUNCTION PANEL 2020-11-19 05:23:00 Brent Devine [facility] MAGNESIUM 2020-11-19 05:23:00 Aneesh Rodriguez [facility] BASIC METABOLIC PANEL 2020-11-19 05:23:00 Aneesh Rodriguez [place] [id number]) [facility] CBC (HEMOGRAM ONLY) 2020-11-19 05:23:00 Aneesh Rodriguez [facility] B-TYPE NATRIURETIC 2020-11-19 05:23:[address] [facility] (BNP) [facility] POCT-GLUCOSE METER 2020-11-18 23:10:00 Vaughn Hercules V. [facility] POCT-GLUCOSE METER 2020-11-18 17:28:00 Vaughn Hercules V. [facility] POCT-GLUCOSE METER 2020-11-18 07:22:00 Vaughn Hercules V. [facility] HEPATIC FUNCTION PANEL 2020-11-18 05:00:00 Sybil, [facility] MAGN[facility] 2020-11-18 05:00:00 Aneesh Rodriguez [facility] BASIC METABOLIC PANEL 2020-11-18 05:00:00 Aenesh Rodriguez CH I [facility] ([address] [place] [address] CBC (HEMOGRAM ONLY) 2020-11-18 05:00:00 Aneesh Rodriguez [facility] TSH/FREE T4 IF INDICATED 2020-11-18 05:00:00 Vaughn Hercules [facility] T4, FREE 2020-11-18 05:00:[address] [facility] POCT-GLUCOSE METER 2020-11-17 23:47:00 Diomedes [facility] POCT-GLUCOSE METER 2020-11-17 22:17:00 [place] Ash[place]ini [facility] POCT-GLUCOSE METER 2020-11-17 17:16:00 Diomedes [facility] POCT-GLUCOSE METER 2020-11-17 11:53:00 [place] Ashwini [facility] 2D ECHO W/ DOPPLER 2020-11-17 09:28:36 Martinez Lester [facility] (CW/PW/COLOR) [facility] POCT-GLUCOSE METER 2020-11-17 07:48:00 Jean-Pierre Cantor [facility] HEPATIC FUNCTION PANEL 2020-11-17 04:47:00 CourtlandBrent [facility] PTH, INTACT 2020-11-17 04:47:00 Norm Gamble [facility] CBC W/PLT COUNT & AUTO 2020-11-17 04:47:00 Jean-Pierre Cantor [facility] BASIC METABOLIC PANEL 2020-11-17 04:47:00 Jean-Pierre Cantor [facility] () [facility] MAGNESIUM 2020-11-17 04:47:00 Aneesh Rodriguez [facility] PHOSPHORUS 2020-11-17 04:47:00 Jean-Pierre Cantor [facility] POCT-GLUCOSE METER 2020-11-16 22:04:00 Brendan [facility] ECG 12-LEAD 2020-11-16 19:29:54 Unknown, Hl7 Doctor [facility] ECG 12-LEAD 2020-11-16 19:29:[address] [facility] POCT-GLUCOSE METER 2020-11-16 17:15:00 Brendan [facility] POCT-GLUCOSE METER 2020-11-16 12:59:00 Jean-Pierre Cantor [facility] US PARACENTESIS 2020-11-16 12:37:00 Augie Hewitt [facility] BODY FLUID CELL COUNT 2020-11-16 11:51:00 Rene Curry [facility] WITH [facility] PROTEIN, BODY FLUID 2020-11-16 11:51:00 Rene Curry [facility] ALBUMIN PERITONEAL FLUID 2020-11-16 11:51:00 Rene Curry [facility] BODY FLUID CULTURE + 2020-11-16 11:50:00 Rene Curry [facility] GRAM STAIN [facility] CYTOLOGY 2020-11-16 11:50:00 Rene Curry [facility] POCT-GLUCOSE METER 2020-11-16 08:04:00 Jean-Pierre Cantor [facility] ANTI-NUCLEAR ANTIBODY 2020-11-16 06:55:00 Rene Curry [facility] (SANTANA) [facility] ANTI-MITOCHONDRIAL AB, 2020-11-16 06:55:00 Rene Curry I [facility] - REFLEX TO TITER [facility] ACTIN (SMOOTH MUSCLE) 2020-11-16 06:55:00 Rene Curry [facility] - ANTIBODY, IGG [facility] HEPATITIS A ANTIBODY, 2020-11-16 06:55:00 Rene Curry [facility] IGM [facility] HEPATITIS A ANTIBODY, 2020-11-16 06:55:00 Rene Curry [facility] IGG [facility] CERULOPLASMIN 2020-11-16 06:55:00 Rene Curry [facility] [id number]\, 2020-11-16 06:55:00 Rene Curry [facility] SERUM [facility] FERRITIN 2020-11-16 06:55:00 Rene Curry [facility] ALPHA FETOPROTEIN (AFP), 2020-11-16 06:55:00 Rene Curry [facility] TUMOR MARKER [facility] HEPATITIS B SURFACE 2020-11-16 06:55:00 Norm Gamble [facility] ANTIBODY [facility] HEPATITIS B CORE 2020-11-16 06:55:00 Norm Gamble [facility] - ANTIBODY, [facility] MITOCHONDRIAL AB SCREEN 2020-11-16 06:55:00 Rene Curry C [facility] MITOCHONDRIAL AB TITER 2020-11-16 06:55:00 Rene Curry [facility] SARS-COV2/RT-PCR ([facility] & 2020-11-16 06:54:00 Aneesh Rodriguez [facility] - REF LABS) [facility] US ABDOMEN LIMITED 2020-11-16 05:51:00 Aiden Pike [facility] US DOPPLER 2020-11-16 05:51:00 Aiden Pike [facility] POCT-GLUCOSE METER 2020-11-15 22:32:00 Jean-Pierre Cantor [facility] POCT-GLUCOSE METER 2020-11-15 21:38:00 Jean-Pierre Cantor [facility] HEMODIALYSIS INPATIENT 2020-11-15 19:04:56 Heriberto Gamble [facility] POCT-GLUCOSE METER 2020-11-15 19:02:00 Brendan [facility] POCT-GLUCOSE METER 2020-11-15 12:02:00 [facility] POCT-GLUCOSE METER 2020-11-15 08:02:00 [facility] HEPATIC FUNCTION PANEL 2020-11-15 05:24:00 [facility] BASIC METABOLIC PANEL 2020-11-15 05:24:00 [facility] (7) [facility] HEMOGLOBIN A1C 2020-11-15 05:24:00 [facility] PROTHROMBIN TIME/INR 2020-11-15 05:24:00 [facility] MAGNESIUM 2020-11-15 05:24:00 [facility] CBC W/PLT COUNT & AUTO 2020-11-15 05:24:00 [facility] DIFFERENTIAL [facility] HEPATITIS C ANTIBODY 2020-11-15 05:24:00 [facility] HEPATITIS B CORE 2020-11-15 05:24:[address] [facility] - ANTIBODY, TOTAL [facility] HEPATITIS B SURFACE 2020-11-15 05:24:00 [facility] HEPATITIS B SURFACE 2020-11-15 05:24:00 Rene Curry [facility] ANTIBODY [facility] IRON, TIBC, % SAT. 2020-11-15 05:24:00 Rene Curry [facility] (WITHOUT FERRITIN) Medical Cente r XR CHEST 1 VIEW 2020-11-15 01:19:00 [facility] PORTABLE/BEDSIDE Medical Center ARRYTHMIA IMPLANT REPORT 2020-11-14 00:00:00 ProviderJacey SD [facility] - - SCAN Scanning [facility] CARDIAC CATH REPORT - 2020-11-14 00:00:00 Provider, Jacey QUINN [facility] SCAN Scanning [facility] Plan of Care Planned Activity Planned Date Details Comments Source Future Scheduled 2020-12-[address] [facility] Test 00:00:00 WELLNESS (YEAR 2 or Medical Center FIRST YEAR if no IPPE) [code = MEDICARE ANNUAL WELLNESS (YEAR 2 or FIRST YEAR if no IPPE)] Future Scheduled 2020-11-[address] [facility] - Test 00:00:00 (12+) [code = Medical Center DEPRESSION SCREENING (12+)] Future Scheduled 2018 PNEUMOCOCCAL 65+ YRS [facility] - Test 00:00:00 (2 of 2 - PPSV23) Medical Ce nter [code = PNEUMOCOCCAL 65+ YRS (2 of 2 - PPSV23)] Future Scheduled 2003 SHINGLES VACCINES ([address] [facility] - Test 00:00:00 of 2) [code = SHINGLES Medic al Center VACCINES (1 of 2)] Future Scheduled 1972 DTAP/TDAP/TD VACCINES [facility] Test 00:00:00 (1 - Tdap) [code = Medical C enter DTAP/TDAP/TD VACCINES (1 - Tdap)] Future Scheduled 1965 COVID-19 VACCINE (1) [facility] - Test 00:00:00 [code = COVID-[address] VACCINE (1)] Future Scheduled [address] [facility] - Test 00:00:00 malignant neoplasm of Medica l Center colon (procedure) [code = 258613506] Encounters Start End Encounter Admission Attending Care Care Encounter Source Date/Time Date/Time Type Type Clinicians Facility Department ID 2019-05-04 Inpatient [id number] 17:34:38 2021-04-09 2021-04-09 Outpatient [facility] [id number] 2021-01-21 2021-01-21 [facility] [id number] [facility] 2021-01-07 2021-01-07 [facility] [id number] [facility] 2020-11-10 2020-11-10 [id number] 2020-10-08 2020-10-08 [facility] [id number] 2020-08-15 2020-08-15 [facility] [id number] [facility] 2020-06-25 2020-06-25 [facility] [id number] 15:00:00 15:00:00 t Camanche [employer] - Drive [facility] l Medicine Outpati ent Clinics 2020-06-25 2020-06-25 [facility] [id number] 15:00:00 15:00:00 t [employer] - Drive [facility] Medicine l Medicine Outpati ent Clinics 2020-03-12 2020-03-12 [facility] [id number] 13:45:00 13:45:00 t Camanche [employer] - Drive [facility] Medicine l Medicine Outpati ent Clinics 2019-12-10 2019-12-10 [facility] [id number] 13:30:00 13:30:00 t [employer] - Drive [facility] Medicine l Medicine Outpati ent Clinics 2019-09-26 2019-09-26 [facility] [id number] 08:23:00 08:23:00 t Camanche [employer] - Drive [facility] Medicine l Medicine Outpati ent Clinics 2019-09-20 2019-09-20 [facility] [id number] 16:58:00 16:58:00 t Camanche [employer] - Drive [facility] Medicine l Medicine Outpati ent Clinics 2019-08-10 2019-08-10 [facility] [id number] 09:15:00 09:15:00 t Camanche [employer] - Drive [facility] Medicine l Medicine Outpati ent Clinics 2019-07-11 2019-07-11 [facility] [id number] 16:55:00 16:55:00 t Camanche [employer] - Drive [facility] Medicine Outpati ent Clinics 2019-07-11 2019-07-11 [facility] [id number] 10:15:00 10:15:00 t Camanche [employer] s - Drive [facility] Medicine Outpati ent Clinics 2019-07-06 2019-07-06 [facility] [id number] 16:41:00 16:41:00 t [place] [employer] [facility] Medicine Outpati ent Clinics 2019-05-04 2019-05-04 [id number] 09:00:00 13:49:28 2019-05-04 2019-05-04 Inpatient E [facility] [id number] [facility] 12:18:00 10:21:00 2019-05-04 2019-05-04 Appointmen RODRIGUE [facility] [id number] [facility] 09:00:00 09:00:00 t; CARMELITA, speedy & ity of [place] HUSAIN Vascular Reinier MAE, Surgery - Physic i [facility] 2019-04-20 2019-04-20 [facility] [id number] 09:30:00 09:30:00 t [employer] [facility] Medicine Outpati ent Clinics 2019-02-27 2019-02-27 [facility] [id number] 10:00:00 10:00:00 t [employer] s - [employer] [facility] Medicine Outpati ent Clinics 2019-01-24 2019-01-24 [facility] [id number] 10:45:00 10:45:00 t [employer] - Drive [facility] Medicine Outpati ent Clinics 2019-01-10 2019-01-10 [facility] [id number] 07:54:00 07:54:00 t [employer] - [employer] [facility] Medicine Outpati ent Clinics 2018-11-15 2018-11-15 [facility] [id number] 10:00:00 10:00:00 t [employer] [facility] Medicine Outpati ent Clinics 2018-10-12 2018-10-12 [facility] [id number] 15:00:00 15:00:00 t Specialty/U Serenity kes - Specialty rology [facility] a /Urology Clinic l Clinic Outpati ent Clinics 2018-05-08 2018-05-08 [facility] [id number] 08:20:00 08:20:00 t [employer] [facility] Medicine Outpati ent Clinics 2018-05-01 2018-05-01 [facility] [id number] 08:46:00 08:46:00 t [employer] [facility] Medicine Outpati ent Clinics 2018-04-27 2018-04-27 [facility] [id number] 09:00:00 09:00:00 t [employer] [facility] Medicine Outpati ent Clinics 2018-04-20 2018-04-20 [facility] [id number] 13:36:00 13:36:00 t [employer] [facility] Medicine Outpati ent Clinics 2018-04-12 2018-04-12 [facility] [id number] 16:11:00 16:11:00 t [employer] [facility] Medicine Outpati ent Clinics 2018-04-10 2018-04-10 [facility] [id number] 14:45:00 14:45:00 t [employer] [facility] Medicine Outpati ent Clinics Results Test Description Test Time Test Comments Results Result Comments Source GLUBED 2020-12-19 16:39:00 Test Item Value Reference Range Interpretation Comme nts GLUBED (test code = GLUBED) 104 MG/DL 70-110 N Performed by certified grain elevator operator at [facility] Ctr - XR FLUOROSCOPY 0-60 [id number] 15:03:00 [facility] 1955 Sex: M FAX: Espinoza Santillan MD [phone] [place]: St: REG Name: TROY FORTE [facility] : 1955 Age/S: 65/M [address] [place] [address] Unit #: [id number] Loc: [place] [address] Phys: Espinoza Villagran MD Acct: [id number] Dis Date: Status: [place] [facility] [place]ONE #: [phone] Exam Date: 12/19/2020 1445 FAX #: [phone] Reason: LUE FISTULA MALFUNCTION EXAMS: CPT CODE: [id number] XR FLUOROSCOPY0-60 MIN 80778 Study: - XR FLUOROSCOPY 0-60 MIN 12/19/2020 2:00 PM Patient Name: TROY FORTE MR: [id number] DATE: 12/19/2020 2:00 PM : 1955; Age: 65 years y/o Male Ordering Physician: Espinoza Villagran MD Clinical Indication: LUE FISTULA MALFUNCTION Intraprocedural fluoroscopy wasprovided by the Department of Radiology. Any images obtained were interpreted by the surgeon intraoperatively. Fluoroscopy time: 18 seconds Reference Air Kerma: 1.3 mGy SL: [id number] at 1503 Reported and signed by: Ar Corley D.O. CC: Espinoza Villagran MD Technologist: Chevy Acevedo RT(R) Trnscrd Date/Time/By: 12/19/2020 (2679) : By:[email or web address] Orig Print D/T: S: 12/19/2020 (4604) PAGE 1 Signed ReportBASIC METABOLIC PANEL 2020-12-19 10:53:00 Test Item Value Reference Range Interpretation Comments SODIUM (test code = NA) 140 mEq/L 134-147 N POTASSIUM (test code = 3.6 mEq/L 3.4-5.0 N K) CHLORIDE (test code = 100 mEq/L 100-108 N CL) CARBON DIOXIDE (test 34 mEq/l 21-33 H code = CO2) ANION GAP (test code = 10 0-20 N GAP) GLUCOSE (test code = 130 mg/dL 70-110 H GLU) BLOOD UREA NITROGEN 17 mg/dL 7-18 N (test code = BUN) GLOMERULAR FILTRATION 14.6 80-90 L Units of measure = RATE (test code = GFR) ml/mi n/1.73 m2 CREATININE (test code = 4.1 mg/dL 0.6-1.3 H CREAT) CALCIUM (test code = 8.8 mg/dL 8.0-10.5 N CA) CBC W/AUTO [id number] 10:45:00 Test Item Value Reference Range Interpretation Comments WHITE BLOOD CELL (test code = 7.2 x10 3/uL 4.5-11.0 N WBC) RED BLOOD CELL (test code = 3.67 x10 6/uL 4.00-5.60 L RBC) HEMOGLOBIN (test code = HGB) 10.3 g/dL 12.5-16.9 L HEMATOCRIT (test code = HCT) 34.9 % 37.5-50.7 L MEAN CELL VOLUME (test code = 95.1 fL 81.0-99.0 N MCV) MEAN CELL HGB (test code = MCH) 28.1 pg 27.0-33.0 N MEAN CELL HGB CONCETRATION 29.5 g/dL 33.0-37.0 L (test code = MCHC) RED CELL DISTRIBUTION WIDTH CV 15.7 % 11.5-14.5 H (test code = RDW) RED CELL DISTRIBUTION WIDTH SD 54.3 fL 37.0-54.0 H (test code = RDW-SD) PLATELET COUNT (test code = 259 x10 3/uL 150-400 N PLT) MEAN PLATELET VOLUME (test code 9.8 fL 7.0-9.0 H = MPV) NEUTROPHIL % (test code = NT%) 80.2 % 56.0-77.0 H IMMATURE GRANULOCYTE % (test 0.6 % 0.0-2.0 N code = IG%) LYMPHOCYTE % (test code = LY%) 5.1 % 14.0-32.0 L MONOCYTE % (test code = MO%) 13.4 % 4.8-9.0 H EOSINOPHIL % (test code = EO%) 0.4 % 0.3-3.7 N BASOPHIL % (test code = BA%) 0.3 % 0.0-2.0 N NUCLEATED RBC % (test code = 0.0 % 0-0 N NRBC%) NEUTROPHIL # (test code = NT#) 5.81 x10 3/uL 2.0-7.6 N IMMATURE GRANULOCYTE # (test 0.04 x10 3/uL 0.00-0.03 H code = IG#) LYMPHOCYTE # (test code = LY#) 0.37 x10 3/uL 1.0-3.8 L MONOCYTE # (test code = MO#) 0.97 x10 3/uL 0.1-0.8 H EOSINOPHIL # (test code = EO#) 0.03 x10 3/uL 0.0-0.2 N BASOPHIL # (test code = BA#) 0.02 x10 3/uL 0.0-0.2 N NUCLEATED RBC # (test code = 0.00 x10 3/uL 0.0-0.1 N NRBC#) MANUAL DIFF REQUIRED (test code NO = MDIFF) - XR CHEST 1 [id number] 10:42:00 [facility] : 1955 Sex: M FAX: Espinoza Santillan MD [phone] [place]: St: REG Name: TROY FORTE [facility] : 1955 Age/S: 65/M [address] [place] [address] Unit #: [id number] Loc: [place] [address] Phys: Espinoza Villagran MD Acct: [id number] Dis Date: Status: REG [facility] [place] PHONE #: [phone] Exam Date: 12/19/2020 1031 FAX #: [phone] Reason: PRE PROCEDURE EXAMS: CPT CODE: [id number] XR CHEST 1 V 72058 Study: - XR CHEST 1 V 12/19/2020 9:13 AM Patient Name: TROY FORTE MR: [id number] : 1955; Age: 65 years y/o Male Ordering Physician: Espinoza Villagran MD Clinical Indication: AVF malfunction, PRE PROCEDURE Comparison: June 18, 2020 x-ray FINDINGS LUNGS: Small bilateral pleural effusion. HEART AND MEDIASTINUM: Mildly enlarged heart with central pulmonary vascular congestion. 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 LINES: None. OSSEOUS STRUCTURES: No fracture,dislocation, or suspicious focal osseous lesion. OTHER: None. IMPRESSION: Mild cardiomegaly with central pulmonary vascular congestion and small bilateral pleural effusions. SL: [id number] at 1042 Reported and signed by: Tr Ly M.D. CC: Espinoza Villagran MD Technologist: Bren Quinonez RT(R) Trnscrd Date/Time/By: 12/19/2020 (2350) : By: [email or web address] Orig Print D/T: S: 12/19/2020 (0115) PAGE 1 Signed ReportCBC W/AUTO [id number] 10:41:00 Test Item Value Reference Range Interpretation Comments WHITE BLOOD CELL (test code = x10 3/uL 4.5-11.0 WBC) RED BLOOD CELL (test code = RBC) x10 6/uL 4.00-5.60 HEMOGLOBIN (test code = HGB) g/dL 12.5-16.9 HEMATOCRIT (test code = HCT) % 37.5-50.7 MEAN CELL VOLUME (test code = fL 81.0-99.0 MCV) MEAN CELL HGB (test code = MCH) pg 27.0-33.0 MEAN CELL HGB CONCETRATION (test g/dL 33.0-37.0 code = MCHC) RED CELL DISTRIBUTION WIDTH CV % 11.5-14.5 (test code = RDW) PLATELET COUNT (test code = PLT) 259 x10 3/uL 150-400 N NEUTROPHIL % (test code = NT%) % 56.0-77.0 LYMPHOCYTE % (test code = LY%) % 14.0-32.0 NEUTROPHIL # (test code = NT#) x10 3/uL 2.0-7.6 LYMPHOCYTE # (test code = LY#) x10 3/uL 1.0-3.8 MANUAL DIFF REQUIRED (test code = MDIFF) COVID 19 Asymptomatic IH [id number] 10:40:00 Test Item Value Reference Range Interpretation Comments COVID 19 Asymptomatic Negative Negative A nega tive result is IH AG (test code = presumpti ve and should COVNONPUIAG) be confirmedwit h an FDA authorized mole cular assay, if neces sanchez forpatient ne gement.A positive result does not rule out co-inf ections withother patho gens.This test detects luisa th viable (live) and non-viable,SARS -CoV, and SARS-CoV-2. Arnaldo t performance dep ends on theamount of vi louise (antigen) in th e sample.This arnaldo t has not been FDA cleare d or approved; the t est hasbeen authori zed by FDA under an Em ergency Use Authorizati on(EUA) for use by labo ratories certified under the CLIA thatmeet the requirements to perform moderate, high or waivedcomplexit y tests. COMMENTS: If not done this admissionCARDIAC CATH REPORT - [id number] 16:28:06Ordered by an unspecified provider.[facility] ARRYTHMIA IMPLANT REPORT - [id number] 16:28:06Ordered by an unspecified provider.[facility] CenterANTI-MITOCHONDRIAL AB, REFLEX TO TITER 2020-11-24 07:25:00 Test Item Value Reference Range Interpretation Comments SCAN RESULT (test code = 5996357) Anti-Mitochondrial Ab, reflex to [id number] 07:25:00Scan ResultQUEST DIAGNOSTIC INCORPORATEDSutter Solano Medical CenterALBUMIN PERITONEAL FLUID 2020-11-21 11:32:00 Test Item Value Reference Range Interpretation Comments Albumin, Peritoneal 2.4 g/dL Fluid (test code = 1749-1) HARVEY (test code = This test was performed HARVEY) at [facility] Lab, [facility]. Reference range is not defined and interpretation must be performed in the consideration of the pathophysiology of the analyte and the clinical context. [facility] CenterALBUMIN PERITONEAL [id number] 11:32:00 Test Item Value Reference Range Interpretation Comments ALBUMIN, PERITONEAL FLUID (BEAKER) 2.4 g/dL (test code = 5143771) This test was performed at [facility].Reference range is not defined and interpretation must be performed in the consideration of the pathophysiology of the analyte and the clinical context.POC-Glucose meter 2020-11-21 11:23:00 Test Item Value Reference Range Interpretation Comments POC-Glucose Meter (test 175 mg/dL 70-110 H : TE STED AT [facility] code = 1538) 3624 [facility], 770 30: Quality Manager/Techni elsie ID = [id number] for ALARCON, SERKAL EM Lab Interpretation (test Abnormal code = 40779-7) [facility] CenterPOCT-GLUCOSE [id number] 11:23:00 Test Item Value Reference Range Interpretation Comments POC-GLUCOSE METER 175 mg/dL 70-110 H : TESTED A T [facility] 6720 (BEAKER) (test code = [place], 1538) [address]: Quality Manager/Techni elsie ID = [id number] for FAHAD CASTAÑEDA Hepatic function [id number] 10:08:00 Test Item Value Reference Range Interpretation Comments Protein, Total (test 6.6 See_Comment [Autom ated code = 2885-2) message] The system which generated this result transmit nova reference range : 6.0 - 8.3 gm/dL . The reference range was not u sed to interpret th is result as normal/abnormal . Albumin (test code = 3.2 g/dL 3.5-5 L 53634-2) Total Bilirubin (test 0.8 mg/dL 0.2-1.2 code = 1975-2) Bilirubin, Direct 0.4 mg/dL 0.1-0.5 (test code = 1968-7) Alkaline Phosphatase 110 U/L 40-150 (test code = 6768-6) AST (test code = 19 U/L 5-34 1920-8) ALT (test code = 7 U/L 6-55 1742-6) HARVEY (test code = HARVEY) Quality Manager ID - EDASI Lab Interpretation Abnormal (test code = 12844-3) [facility] CenterHEPATIC FUNCTION [id number] 10:08:00 Test Item Value Reference Range Interpretation Comments TOTAL PROTEIN (BEAKER) (test code = 6.6 gm/dL 6.0-8.3 770) ALBUMIN (BEAKER) (test code = 1145) 3.2 g/dL 3.5-5.0 L BILIRUBIN TOTAL (BEAKER) (test code 0.8 mg/dL 0.2-1.2 = 377) BILIRUBIN DIRECT (BEAKER) (test 0.4 mg/dL 0.1-0.5 code = 706) ALKALINE PHOSPHATASE (BEAKER) (test 110 U/L 40-150 code = 346) AST (SGOT) (BEAKER) (test code = 19 U/L 5-34 353) ALT (SGPT) (BEAKER) (test code = 7 U/L 6-55 347) Quality Manager ID - EDASIPOCT-GLUCOSE [id number] 08:18:00 Test Item Value Reference Range Interpretation Comments POC-GLUCOSE METER 130 mg/dL 70-110 H : TESTED A T [facility] 6720 (BEAKER) (test code = [place], 1538) [address]: Quality Manager/Techni elsie ID = [id number] for FAHAD CASTAÑEDA Basic Metabolic [id number] 07:17:00 Test Item Value Reference Range Interpretation Comments Sodium (test code = 133 meq/L 136-145 L 2951-2) Potassium (test code = 5.0 meq/L 3.5-5.1 2823-3) Chloride (test code = 96 meq/L 98-107 L 2075-0) CO2 (test code = 27 meq/L 22-29 2028-9) BUN (test code = 46 mg/dL 7-21 H 3094-0) Creatinine (test code 6.05 mg/dL 0.57-1.25 H = 2160-0) Glucose (test code = 157 mg/dL 70-105 H 2345-7) Calcium (test code = 8.4 mg/dL 8.4-10.2 07915-2) EGFR (test code = 9 mL/min/1.73 [place] [address]-3) NOT ACCURATE CREATININE CLEARANCE IN PREDICTING GLOMERULAR FILTRATION RATE . ESTIMATED GFR I S NOT APPLICABLE FOR DIALYSIS PATIENTS. HARVEY (test code = HARVEY) Quality Manager ID - ADMIN Lab Interpretation Abnormal (test code = 43213-4) [facility] CenterBASIC METABOLIC [id number] 07:17:00 Test Item Value Reference Range Interpretation Comments SODIUM (BEAKER) 133 meq/L 136-145 L (test code = 381) POTASSIUM (BEAKER) 5.0 meq/L 3.5-5.1 (test code = 379) CHLORIDE (BEAKER) 96 meq/L 98-107 L (test code = 382) CO2 (BEAKER) (test 27 meq/L 22-29 code = 355) BLOOD UREA NITROGEN 46 mg/dL 7-21 H (BEAKER) (test code = 354) CREATININE (BEAKER) 6.05 mg/dL 0.57-1.25 H (test code = 358) GLUCOSE RANDOM 157 mg/dL 70-105 H (BEAKER) (test code = 652) CALCIUM (BEAKER) 8.4 mg/dL 8.4-10.2 (test code = 697) EGFR (BEAKER) (test 9 mL/min/1.73 ESTIMAT ED GFR IS code = 1092) sq m NOT ACCURATE CREATININE CLEARANCE IN PREDICTING GLOMERULAR FILTRATION RATE . ESTIMATED GFR I S NOT APPLICABLE FOR DIALYSIS PATIEN TS. Quality Manager ID - JJHEDVguhdduce2445-08-27 07:16:00 Test Item Value Reference Range Interpretation Comments Magnesium (test code = 2.0 mg/dL 1.6-2.6 89961-5) HARVEY (test code = HARVEY) Quality Manager ID - ADMIN Lab Interpretation (test Normal code = 02186-1) [facility] [id number] 07:16:00 Test Item Value Reference Range Interpretation Comments MAGNESIUM (BEAKER) (test code = 2.0 mg/dL 1.6-2.6 627) Quality Manager ID - ADMINCBC (Hemogram only)2020-11-21 06:55:00 Test Item Value Reference Range Interpretation Comments WBC (test code = 6690-2) 7.2 See_Comment [A utomated message] The system [employer] generated this result transmitted ref erence range: 3.5 - 10 .5 K/L. The refe rence range was not u sed to interpret this result as normal/abnor mal. RBC (test code = 789-8) 3.09 See_Comment L [Au tomated message] The system [employer] generated this result transmitted ref erence range: 4.63 - 6 .08 M/L. The refe rence range was not u sed to interpret this result as normal/abnor mal. MCHC (test code = 786-4) 30.1 See_Comment L [A utomated message] The system [employer] generated this result transmitted ref erence range: 32.3 - 3 6.5 GM/DL. The refe rence range was not u sed to interpret this result as normal/abnor mal. Hematocrit (test code = 28.6 % 40.1-51 L 4544-3) MCV (test code = 787-2) 92.6 fL 79-92.2 H MCH (test code = 785-6) 27.8 pg 25.7-32.2 RDW (test code = 788-0) 16.6 % 11.6-14.4 H Platelets (test code = 244 See_Comment [Aut omated message] 777-3) The system [employer] generated this result transmitted ref erence range: 150 - 45 0 K/CU MM. The referen ce range was not u sed to interpret this result as normal/abnor mal. MPV (test code = 10.2 fL 9.4-12.4 03588-3) nRBC (test code = 413) 0 See_Comment [Aut omated message] The system [employer] generated this result transmitted ref erence range: 0 - 0 /1 00 WBC. The refere nce range was not u sed to interpret this result as normal/abnor mal. Lab Interpretation (test Abnormal code = 13215-6) [facility] (HEMOGRAM ONLY)2020-11-21 06:55:00 Test Item Value Reference Range Interpretation Comments WHITE BLOOD CELL COUNT (BEAKER) 7.2 K/ L 3.5-10.5 (test code = 775) RED BLOOD CELL COUNT (BEAKER) 3.09 M/ L 4.63-6.08 L (test code = 761) HEMOGLOBIN (BEAKER) (test code = 8.6 GM/DL 13.7-17.5 L 410) HEMATOCRIT (BEAKER) (test code = 28.6 % 40.1-51.0 L 411) MEAN CORPUSCULAR VOLUME (BEAKER) 92.6 fL 79.0-92.2 H (test code = 753) MEAN CORPUSCULAR HEMOGLOBIN 27.8 pg 25.7-32.2 (BEAKER) (test code = 751) MEAN CORPUSCULAR HEMOGLOBIN CONC 30.1 GM/DL 32.3-36.5 L (BEAKER) (test code = 752) RED CELL DISTRIBUTION WIDTH 16.6 % 11.6-14.4 H (BEAKER) (test code = 412) PLATELET COUNT (BEAKER) (test 244 K/CU MM 150-450 code = 756) MEAN PLATELET VOLUME (BEAKER) 10.2 fL 9.4-12.4 (test code = 754) NUCLEATED RED BLOOD CELLS 0 /100 WBC 0-0 (BEAKER) (test code = 413) RAD, CHEST, 1 VIEW, NON [id number] 00:39:00Reason for exam:->SICD implantShould this be performed at the bedside?->Yes [facility] 1955 Sex: MFINAL REPORT Chest one view. Clinical history: SICD implant Comparison: Chest radiograph 11/15/2020. Technique: A single frontal view of the chest was obtained. Findings:Thereis a new single lead left-sided ICD in place. There is a right IJ central venous catheter with tip in the right atrium. The patient is status post median sternotomy and CABG.There is stable mild cardiom egaly. The aorta is tortuous and atherosclerotic. There is pulmonary vascular congestion with small loculated bilateral pleural effusions. There is no pneumothorax. There is mild subcutaneous emphysemain the left chest wall. Signed: Elidia Patel MDReport Verified Date/Time: 11/21/2020 00:39:32 E lectronically signed by: ELIDIA PATEL MD on 11/21/2020 12:39 AMXR chest 1 view portable / [id number] 00:39:00Interface, External Ris In - 11/21/2020 12:41 AM CSTFINAL REPORT Chest one view. Clinical history: SICD implant Comparison: Chest radiograph 11/15/2020. Technique: A single frontal view of the chest was obtained. Findings:There is a new single lead left-sided ICD in place. Thereis a right IJ central venous catheter with tip in the right atrium. The patient is status post median sternotomy and CABG.There is stable mild cardiomegaly. The aorta is tortuous and atherosclerotic. There is pulmonary vascular congestion with small loculated bilateral pleural effusions. There is no pneumothorax. There is mild subcutaneous emphysema in the left chest wall. Signed: Elidia Patel Verified Date/Time: 11/21/2020 00:39:32 [facility] [id number] 21:44:00 Test Item Value Reference Range Interpretation Comments POC-GLUCOSE METER 173 mg/dL 70-110 H : TESTED A T [facility] 6720 (BEAKER) (test code = [facility] R [facility], 1538) [address]: Quality Manager/Techni elsie ID = [id number] for WILMAN BIRD RA POCT-GLUCOSE [id number] 18:37:00 Test Item Value Reference Range Interpretation Comments POC-GLUCOSE METER 157 mg/dL 70-110 H : TESTED A T [facility] 6720 (BEAKER) (test code = [facility] R [facility], 1538) [address]: Quality Manager/Techni elsie ID = [id number] for RICARDO COOK POCT-GLUCOSE [id number] 17:03:00 Test Item Value Reference Range Interpretation Comments POC-GLUCOSE METER 151 mg/dL 70-110 H : TESTED A T [facility] 6720 (BEAKER) (test code = [facility] R [facility], 1538) [address]: Quality Manager/Techni elsie ID = [id number] for BL CORI MACHADO Blood gas, [id number] 14:46:00 Test Item Value Reference Range Interpretation Comments pH, Arterial (test code 7.44 7.35-7.45 = 2744-1) pCO2, Arterial (test 34 See_Comment L [Autom ated code = 2019-8) message] The system which generated this result transmitted reference range : 35 - 45 mm Hg. The reference range was not used to interpret this result as normal/abnormal . pO2, Arterial (test 219 See_Comment H [Automa nova code = 2703-7) message] The system which generated this result transmitted reference range : 80 - 90 mm Hg. The reference range was not used to interpret this result as normal/abnormal . O2 Sat, Arterial (test 99.5 % 96-97 H code = 2708-6) HCO3, Arterial (test 23 mmol/L 21-29 code = 1960-4) Base Excess, Arterial -1.4 mmol/L -2-3 (test code = 1925-7) Patient Temperature 37.0 (test code = 8310-5) FIO2 (test code = 1819) 100 Lab Interpretation Abnormal (test code = 95749-5) [facility] CenterHGB/HCT (H&H)-Stat [id number] 14:46:00 Test Item Value Reference Range Interpretation Comments Hemoglobin (test code = 7.3 See_Comment L [Au tomated message] 786-4) The system [employer] generated this result transmitted ref erence range: 13.0 - 1 6.8 GM/DL. The refe rence range was not u sed to interpret this result as normal/abnor mal. Hematocrit (test code = 21.0 % 40-50 L 4544-3) Lab Interpretation (test Abnormal code = 98995-0) [facility] CenterGlucose-Stat [id number] 14:46:00 Test Item Value Reference Range Interpretation Comments Glucose (test code = 2345-7) 143 mg/dL 70-110 H Lab Interpretation (test code = Abnormal 34369-0) [facility] [id number] 14:46:00 Test Item Value Reference Range Interpretation Comments Sodium (test code = 2951-2) 133 meq/L 136-145 L Lab Interpretation (test code = Abnormal 76261-1) [facility] CenterPotassium-Stat [id number] 14:46:00 Test Item Value Reference Range Interpretation Comments Potassium (test code = 2823-3) 3.3 meq/L 3.6-5.5 L Lab Interpretation (test code = Abnormal 03814-5) [facility] CenterBLOOD GAS, [id number] 14:46:00 Test Item Value Reference Range Interpretation Comments PH ARTERIAL (BEAKER) (test code = 7.44 7.35-7.45 383) PCO2 ARTERIAL (BEAKER) (test code 34 mm Hg 35-45 L = 384) PO2 ARTERIAL (BEAKER) (test code 219 mm Hg 80-90 H = 385) O2 SATURATION ARTERIAL (BEAKER) 99.5 % 96.0-97.0 H (test code = 386) HCO3 ARTERIAL (BEAKER) (test code 23 mmol/L 21-29 = 388) BASE EXCESS ARTERIAL (BEAKER) -1.4 mmol/L -2.0-3.0 (test code = 387) PATIENT TEMPERATURE (BEAKER) 37.0 (test code = 1818) FIO2 (BEAKER) (test code = 1819) 100.0 SODIUM NA-STAT [id number] 14:46:00 Test Item Value Reference Range Interpretation Comments SODIUM (BEAKER) (test code = 381) 133 meq/L 136-145 L POTASSIUM-STAT [id number] 14:46:00 Test Item Value Reference Range Interpretation Comments POTASSIUM (BEAKER) (test code = 3.3 meq/L 3.6-5.5 L 379) GLUCOSE-STAT [id number] 14:46:00 Test Item Value Reference Range Interpretation Comments GLUCOSE RANDOM (BEAKER) (test code 143 mg/dL 70-110 H = 652) HGB/HCT (H&H) - STAT [id number] 14:46:00 Test Item Value Reference Range Interpretation Comments HEMOGLOBIN (BEAKER) (test code = 7.3 GM/DL 13.0-16.8 L 410) HEMATOCRIT (BEAKER) (test code = 21.0 % 40.0-50.0 L 411) Mitochondrial Ab [id number] 13:28:00 Test Item Value Reference Range Interpretation Comments Anti-Mitocho NEGATIVE NEGATIVE This test was developed nd Abs (test and its analyti konrad code = performance 1777605) characteristics havebeen determined by [facility].It h as not been cleared or approved by FDA. This as say has been validatedp ursuant to the CLIA reg ulations and is used for clinical purposes. HARVEY (test Performing Lab code = HARVEY) [facility] [address] [place] [address] Bert Kraft MD, PhD, BELLE [facility] CenterMitochondrial Ab [id number] 13:28:00 Test Item Value Reference Range Interpretation Comments Mitochondrial Ab TNP See_Comment Test Not Titer (test code = Performed . 20200427) Screening test Negative or Not Detected. Titer notperformed. [Automated message] The system which generated this result transmitted reference range : <1:20. The reference range was not used to interpret this result as normal/abnormal . HARVEY (test code = Performing Lab HARVEY) E[facility] [address] [place] [address] Bert Kraft MD, PhD, BELLE [facility] CenterHEMODIALYSIS [id number] 12:30:00Yumiko Miranda RN 11/20/2020 5:11 PM HD started per protocol. At 11:35 Dr. Dallas Soria called about the patient to go to pit laborer and stated that she talked to nephrology team and agreed upon to discontinue hd early. Discontinued dialysis as requested - completed 59 minutes of hd with net UF of 403 ml. Patient was picked up by pit laborer staff/transport via stretcher. Report given to HIRA Galvan at tower. During dialysis - initially used AVF at left forearm with 16 gauge needles, noted to have spasm, poor blood flow at 250 ml/min, system/lines clotted, reset-up lines, then switched arterial line through TDC and returned on AVF with no problem at 350 ml/min blood flow. Lab Results ComponentValue Date GLUCOSE 190 (H) 11/20/2020 CALCIUM 7.5 (L) 11/20/2020 NA 133 (L) 11/20/2020 K 4.6 11/20/2020 CO2 23 11/20/2020 CL 95 (L) 11/20/2020 BUN 55 (H) 11/20/2020 CREATININE 5.95 (H) 11/20/2020 MG 2.0 11/20/2020 PHOS 6.9 (H) 11/17/2020 Lab Results Component Value Date WBC 5.9 11/20/2020HGB 8.5 (L) 11/20/2020 HCT 28.0 (L) 11/20/2020 MCV 90.6 11/20/2020 PLT 240 11/20/2020 Lab Results Component Value Date HEPBSAG Nonreactive 11/15/2020 HEPCAB Nonreactive 11/15/2020[facility] + gram [id number] 12:24:00 Test Item Value Reference Range Interpretation Comments Result (test code = 6463-4) No growth Gram Stain Result (test No organisms seen code = 1123) [facility] CenterBODY FLUID CULTURE + GRAM [id number] 12:24:00 Test Item Value Reference Range Interpretation Comments CULTURE (BEAKER) (test code No growth = 1095) GRAM STAIN RESULT (BEAKER) 1+ WBCs (test code = 1123) GRAM STAIN RESULT (BEAKER) No organisms seen (test code = 18966) [id number] 12:11:00 Test Item Value Reference Range Interpretation Comments Ceruloplasmin (test code 38 mg/dL 18-36 H = 20191229) HARVEY (test code = HARVEY) Performing Lab *[facility], [address] [place] [phone] Niranjan Morejon MD Lab Interpretation (test Abnormal code = 93221-8) [facility] [id number] 09:22:00 Test Item Value Reference Range Interpretation Comments POC-GLUCOSE METER 156 mg/dL 70-110 H : Notified RN/: (CONRAD) (test code = [facility] [facility] 5785 [id number]) [facility], [address]: Quality Manager/Techni elsie ID = [id number] for AN RICARDO DAUGHERTY ECG 12 [id number] 07:03:35Interface, External Ris In - 11/20/2020 7:03 AM CSTVentricular Rate 75 BPMAtrial Rate 75 BPMP-R Interval 196 msQRS Duration 116 msQ-T Interval 422 msQTC Calculation(Bazett) 471 msP [place] 44 degreesR [place] -38 degreesT [place] 137 degreesNormal sinus rhythmHorizontal axisPossible anterior infarct, age undetermined.Abnormal ECGWhen compared with ECG of 16-NOV-2020 19:29,Questionable change in initial forces of Anterior leadsConfirmed by Allen YOUNG MICHAEL ([id number]) on 11/20/2020 7:03:30 [facility] HospitalProthrombin time/[id number] 04:26:00 Test Item Value Reference Interpretation Comments Range Protime (test code = 14.8 See_Comment H [Autom ated 5902-2) message] The system which generated this result transmitted reference range : 11.9 - 14.2 seconds. The reference range was not used to interpret this result as normal/abnormal . INR (test code = 1.20 See_Comment [Automated 6301-6) message] The system which generated this result transmitted reference range : <=5.90. The reference range was not used to interpret this result as normal/abnormal . HARVEY (test code = Effective 04/04/2019: HARVEY) PT Reference Range ChangeNew: 11.9-14.2 Previous: 11.7-14.7 RECOMMENDED COUMADIN/WARFARIN INR THERAPY RANGESSTANDARD DOSE: 2.0-3.0 Includes: PROPHYLAXIS for venous thrombosis, systemic embolization; TREATMENT for venous thrombosis and/or pulmonary embolus.HIGH RISK: Target INR is 2.5-3.5 for patients wiht mechanical heart valves. Within 24 hours, if on Coumadin Lab Interpretation Abnormal (test code = 29960-5) [facility] CenterPROTHROMBIN TIME/[id number] 04:26:00 Test Item Value Reference Range Interpretation Comments PROTIME (BEAKER) (test code = 14.8 seconds 11.9-14.2 H 759) INR (BEAKER) (test code = 370) 1.20 <=5.90 Effective 04/04/2019: PT Reference Range ChangeNew: 11.9-14.2 Previous: 11.7- 14.7RECOMMENDED COUMADIN/WARFARIN INR THERAPY RANGESSTANDARD DOSE: 2.0-3.0 Includes: PROPHYLAXIS for venous thrombosis, systemic embolization; TREATMENT for venous thrombosis and/or pulmonary embolus.HIGH RISK: Target INR is2.5-3.5 for patients wiht mechanical heart valves.Within 24 hours, if on CoumadinBASIC METABOLIC [id number] 04:13:00 Test Item Value Reference Range Interpretation Comments SODIUM (BEAKER) 133 meq/L 136-145 L (test code = 381) POTASSIUM (BEAKER) 4.6 meq/L 3.5-5.1 (test code = 379) CHLORIDE (BEAKER) 95 meq/L 98-107 L (test code = 382) CO2 (BEAKER) (test 23 meq/L 22-29 code = 355) BLOOD UREA NITROGEN 55 mg/dL 7-21 H (BEAKER) (test code = 354) CREATININE (BEAKER) 5.95 mg/dL 0.57-1.25 H (test code = 358) GLUCOSE RANDOM 190 mg/dL 70-105 H (BEAKER) (test code = 652) CALCIUM (BEAKER) 7.5 mg/dL 8.4-10.2 L (test code = 697) EGFR (BEAKER) (test 10 mL/min/1.73 ESTIMA NOVA GFR IS code = 1092) sq m NOT ACCURATE CREATININE CLEARANCE IN PREDICTING GLOMERULAR FILTRATION RATE . ESTIMATED GFR I S NOT APPLICABLE FOR DIALYSIS PATIEN TS. Quality Manager ID - JEVON [id number] 04:03:00 Test Item Value Reference Range Interpretation Comments MAGNESIUM (BEAKER) (test code = 2.0 mg/dL 1.6-2.6 627) Quality Manager ID - JEVON LCBC (HEMOGRAM ONLY)2020-11-20 03:55:00 Test Item Value Reference Range Interpretation Comments WHITE BLOOD CELL COUNT (BEAKER) 5.9 K/ L 3.5-10.5 (test code = 775) RED BLOOD CELL COUNT (BEAKER) 3.09 M/ L 4.63-6.08 L (test code = 761) HEMOGLOBIN (BEAKER) (test code = 8.5 GM/DL 13.7-17.5 L 410) HEMATOCRIT (BEAKER) (test code = 28.0 % 40.1-51.0 L 411) MEAN CORPUSCULAR VOLUME (BEAKER) 90.6 fL 79.0-92.2 (test code = 753) MEAN CORPUSCULAR HEMOGLOBIN 27.5 pg 25.7-32.2 (BEAKER) (test code = 751) MEAN CORPUSCULAR HEMOGLOBIN CONC 30.4 GM/DL 32.3-36.5 L (BEAKER) (test code = 752) RED CELL DISTRIBUTION WIDTH 16.6 % 11.6-14.4 H (BEAKER) (test code = 412) PLATELET COUNT (BEAKER) (test 240 K/CU MM 150-450 code = 756) MEAN PLATELET VOLUME (BEAKER) 10.1 fL 9.4-12.4 (test code = 754) NUCLEATED RED BLOOD CELLS 0 /100 WBC 0-0 (CONRAD) (test code = 413) Actin (Smooth Muscle) Antibody, [id number] 22:18:00 Test Item Value Reference Range Interpretation Comments Anti-Smooth <20 See Note: U Reference Range :<20 Muscle Ab NEGATIVE> O R = 20 (test code = POSITIVE Antibo dies ) recognizing act in are the main compon entof smooth muscle antibodies asso ciated withautoimmune liver disease. Actin antibodies aref ound in approximatel y 75% of patients withautoimmune hepatitis (AIH) type 1, approximatel y65% of patients wit h autoimmune cholangitis,quinten roxima tely 30% of pat ients with primary biliarycirrhosi s, and approximately 2 % of healthy people. High values are clos joss correlated with AIH type 1. HARVEY (test code Performing Lab = HARVEY) [employer] [facility] [address] [place] [address] Bert Kraft MD, PhD, BELLE [facility] CenterPOCT-GLUCOSE [id number] 21:13:00 Test Item Value Reference Range Interpretation Comments POC-GLUCOSE METER 222 mg/dL 70-110 H : TESTED A T [facility] 67 (CONRAD) (test code = [facility] Sewell [facility], 1538) [address]: Quality Manager/Techni elsie ID = [id number] for WILMAN BIRD RA POCT-GLUCOSE [id number] 17:48:00 Test Item Value Reference Range Interpretation Comments POC-GLUCOSE METER 205 mg/dL 70-110 H : Notified RN/MD: (CONRAD) (test code = TESTED AT [facility] 6720 1538) [facility] [place], [address]: Quality Manager/Techni elsie ID = [id number] for RICARDO COOK Type and screen, [id number] 12:33:00 Test Item Value Reference Range Interpretation Comments ABO/RH AUTOMATED (CONRAD) (test A POSITIVE code = 2260) Ab Scrn (test code = 890-4) NEGATIVE [facility] [id number] 12:22:00 Test Item Value Reference Range Interpretation Comments POC-GLUCOSE METER 196 mg/dL 70-110 H : Notified RN/MD: (CONRAD) (test code = TESTED AT [place] [address]) [facility], [address]: Quality Manager/Techni elsie ID = [id number] for RICARDO COOK POCT-GLUCOSE [id number] 08:52:00 Test Item Value Reference Range Interpretation Comments POC-GLUCOSE METER 166 mg/dL 70-110 H : TESTED A T [place] [address] ([facility]) (test code = [facility], 153) [address]: Quality Manager/Techni elsie ID = [id number] for Junie Gutiérrez POCT-GLUCOSE [id number] 08:52:00 Test Item Value Reference Range Interpretation Comments POC-GLUCOSE METER 176 mg/dL 70-110 H : TESTED A T [place] [id number] ([facility]) (test code = [facility], 153) [address]: Quality Manager/Techni elsie ID = [id number] for Junie Gutiérrez POCT-GLUCOSE [id number] 08:39:00 Test Item Value Reference Range Interpretation Comments POC-GLUCOSE METER 144 mg/dL 70-110 H : Notified RN/MD: (CONRAD) (test code = TESTED AT [place] [address]) [facility], [address]: Quality Manager/Techni elsie ID = [id number] for RICARDO COOK BASIC METABOLIC [id number] 07:50:00 Test Item Value Reference Range Interpretation Comments SODIUM (BEAKER) 136 meq/L 136-145 (test code = 381) POTASSIUM (BEAKER) 4.2 meq/L 3.5-5.1 (test code = 379) CHLORIDE (BEAKER) 97 meq/L 98-107 L (test code = 382) CO2 (BEAKER) (test 26 meq/L 22-29 code = 355) BLOOD UREA NITROGEN 46 mg/dL 7-21 H (BEAKER) (test code = 354) CREATININE (BEAKER) 4.99 mg/dL 0.57-1.25 H (test code = 358) GLUCOSE RANDOM 150 mg/dL 70-105 H (BEAKER) (test code = 652) CALCIUM (BEAKER) 7.3 mg/dL 8.4-10.2 L (test code = 697) EGFR (BEAKER) (test 12 mL/min/1.73 ESTIMA NOVA GFR IS code = 1092) sq m NOT ACCURATE CREATININE CLEARANCE IN PREDICTING GLOMERULAR FILTRATION RATE . ESTIMATED GFR I S NOT APPLICABLE FOR DIALYSIS PATIEN TS. Quality Manager ID - [id number] 07:46:00 Test Item Value Reference Range Interpretation Comments MAGNESIUM (BEAKER) (test code = 2.0 mg/dL 1.6-2.6 627) Quality Manager ID - BENYHEPATIC FUNCTION [id number] 07:46:00 Test Item Value Reference Range Interpretation Comments TOTAL PROTEIN (BEAKER) (test code = 6.2 gm/dL 6.0-8.3 770) ALBUMIN (BEAKER) (test code = 1145) 3.0 g/dL 3.5-5.0 L BILIRUBIN TOTAL (BEAKER) (test code 0.7 mg/dL 0.2-1.2 = 377) BILIRUBIN DIRECT (BEAKER) (test 0.4 mg/dL 0.1-0.5 code = 706) ALKALINE PHOSPHATASE (BEAKER) (test 109 U/L 40-150 code = 346) AST (SGOT) (BEAKER) (test code = 16 U/L 5-34 353) ALT (SGPT) (BEAKER) (test code = 9 U/L 6-55 347) Quality Manager ID - BENYB-type Natriuretic Factor (BNP)2020-11-19 07:44:00 Test Item Value Reference Range Interpretation Comments BNP (test code = 20949-1) 4442 pg/mL 0-100 H HARVEY (test code = HARVEY) Quality Manager ID - BENY Lab Interpretation (test Abnormal code = 85260-9) [facility] CenterB-[facility] NAT[facility]URET[facility] FACTOR (BNP)2020-11-19 07:44:00 Test Item Value Reference Range Interpretation Comments B-TYPE NATRIURETIC PEPTIDE 4442 pg/mL 0-100 H (BEAKER) (test code = 700) Quality Manager ID - BENYCBC (HEMOGRAM ONLY)2020-11-19 07:14:00 Test Item Value Reference Range Interpretation Comments WHITE BLOOD CELL COUNT (BEAKER) 6.6 K/ L 3.5-10.5 (test code = 775) RED BLOOD CELL COUNT (BEAKER) 3.10 M/ L 4.63-6.08 L (test code = 761) HEMOGLOBIN (BEAKER) (test code = 8.7 GM/DL 13.7-17.5 L 410) HEMATOCRIT (BEAKER) (test code = 27.9 % 40.1-51.0 L 411) MEAN CORPUSCULAR VOLUME (BEAKER) 90.0 fL 79.0-92.2 (test code = 753) MEAN CORPUSCULAR HEMOGLOBIN 28.1 pg 25.7-32.2 (BEAKER) (test code = 751) MEAN CORPUSCULAR HEMOGLOBIN CONC 31.2 GM/DL 32.3-36.5 L (BEAKER) (test code = 752) RED CELL DISTRIBUTION WIDTH 16.9 % 11.6-14.4 H (BEAKER) (test code = 412) PLATELET COUNT (BEAKER) (test 236 K/CU MM 150-450 code = 756) MEAN PLATELET VOLUME (BEAKER) 10.6 fL 9.4-12.4 (test code = 754) NUCLEATED RED BLOOD CELLS 0 /100 WBC 0-0 (BEAKER) (test code = 413) POCT-GLUCOSE [id number] 23:22:00 Test Item Value Reference Range Interpretation Comments POC-GLUCOSE METER 132 mg/dL 70-110 H : TESTED A T [facility] 6720 (BEAKER) (test code = [facility], 153) [address]: Quality Manager/Techni elsie ID = [id number] for NO OR STEPHANIE ABISAI CUETO SHA POCT-GLUCOSE [id number] 17:45:00 Test Item Value Reference Range Interpretation Comments POC-GLUCOSE METER 259 mg/dL 70-110 H : TESTED A T [facility] 6720 (BEAKER) (test code = [facility], 153) [address]: Quality Manager/Techni elsie ID = [id number] for Junie Gutiérrez T4, [id number] 09:08:00 Test Item Value Reference Range Interpretation Comments Free T4 (test code = 0.62 ng/dL 0.7-1.48 L 3024-7) HARVEY (test code = HARVEY) Quality Manager ID - JORDAN Sterling Lab Interpretation (test Abnormal code = 19331-8) [facility] CenterT4, [id number] 09:08:00 Test Item Value Reference Range Interpretation Comments FREE T4 (BEAKER) (test code = 655) 0.62 ng/dL 0.70-1.48 L Quality Manager ID - JORDAN MTSH/Free T4 If [id number] 08:03:00 Test Item Value Reference Range Interpretation Comments TSH (test code = 7.177 See_Comment H [Automated 58689-5) message] The system which generated this result transmit nova reference range : 0.350 - 4.940 uIU/mL. The reference range was not used to interpret this result as normal/abnormal . HARVEY (test code = HARVEY) Quality Manager ID - JORDAN M Lab Interpretation Abnormal (test code = 46505-8) [facility] CenterTSH/FREE T4 IF [id number] 08:03:00 Test Item Value Reference Range Interpretation Comments THYROID STIMULATING HORMONE 7.177 uIU/mL 0.350-4.940 H (BEAKER) (test code = 772) Quality Manager ID - JORDAN MBASIC METABOLIC [id number] 07:42:00 Test Item Value Reference Range Interpretation Comments SODIUM (BEAKER) 132 meq/L 136-145 L (test code = 381) POTASSIUM (BEAKER) 4.5 meq/L 3.5-5.1 (test code = 379) CHLORIDE (BEAKER) 93 meq/L 98-107 L (test code = 382) CO2 (BEAKER) (test 24 meq/L 22-29 code = 355) BLOOD UREA NITROGEN 76 mg/dL 7-21 H (BEAKER) (test code = 354) CREATININE (BEAKER) 5.95 mg/dL 0.57-1.25 H (test code = 358) GLUCOSE RANDOM 170 mg/dL 70-105 H (BEAKER) (test code = 652) CALCIUM (BEAKER) 7.2 mg/dL 8.4-10.2 L (test code = 697) EGFR (BEAKER) (test 10 mL/min/1.73 ESTIMA NOVA GFR IS code = 1092) sq m NOT ACCURATE CREATININE CLEARANCE IN PREDICTING GLOMERULAR FILTRATION RATE . ESTIMATED GFR I S NOT APPLICABLE FOR DIALYSIS PATIEN TS. Quality Manager ID - JORDAN [id number] 07:41:00 Test Item Value Reference Range Interpretation Comments MAGNESIUM (BEAKER) (test code = 1.9 mg/dL 1.6-2.6 627) Quality Manager ID - JORDAN EPATIC FUNCTION [id number] 07:41:00 Test Item Value Reference Range Interpretation Comments TOTAL PROTEIN (BEAKER) (test code = 6.6 gm/dL 6.0-8.3 770) ALBUMIN (BEAKER) (test code = 1145) 3.2 g/dL 3.5-5.0 L BILIRUBIN TOTAL (BEAKER) (test code 0.8 mg/dL 0.2-1.2 = 377) BILIRUBIN DIRECT (BEAKER) (test 0.4 mg/dL 0.1-0.5 code = 706) ALKALINE PHOSPHATASE (BEAKER) (test 105 U/L 40-150 code = 346) AST (SGOT) (BEAKER) (test code = 17 U/L 5-34 353) ALT (SGPT) (BEAKER) (test code = 11 U/L 6-55 347) Quality Manager ID - JORDAN MCBC (HEMOGRAM ONLY)2020-11-18 06:18:00 Test Item Value Reference Range Interpretation Comments WHITE BLOOD CELL COUNT (BEAKER) 6.8 K/ L 3.5-10.5 (test code = 775) RED BLOOD CELL COUNT (BEAKER) 3.17 M/ L 4.63-6.08 L (test code = 761) HEMOGLOBIN (BEAKER) (test code = 8.8 GM/DL 13.7-17.5 L 410) HEMATOCRIT (BEAKER) (test code = 28.1 % 40.1-51.0 L 411) MEAN CORPUSCULAR VOLUME (BEAKER) 88.6 fL 79.0-92.2 (test code = 753) MEAN CORPUSCULAR HEMOGLOBIN 27.8 pg 25.7-32.2 (BEAKER) (test code = 751) MEAN CORPUSCULAR HEMOGLOBIN CONC 31.3 GM/DL 32.3-36.5 L (BEAKER) (test code = 752) RED CELL DISTRIBUTION WIDTH 16.6 % 11.6-14.4 H (BEAKER) (test code = 412) PLATELET COUNT (BEAKER) (test 239 K/CU MM 150-450 code = 756) MEAN PLATELET VOLUME (BEAKER) 10.5 fL 9.4-12.4 (test code = 754) NUCLEATED RED BLOOD CELLS 0 /100 WBC 0-0 (BEAKER) (test code = 413) POCT-GLUCOSE [id number] 00:01:00 Test Item Value Reference Range Interpretation Comments POC-GLUCOSE METER 164 mg/dL 70-110 H : TESTED A T [facility] 6720 (BEAKER) (test code = CIERA Sewell [facility], 1538) [address]: Quality Manager/Techni elsie ID = [id number] for NO OR ABISAI BROWN POCT-GLUCOSE [id number] 17:28:00 Test Item Value Reference Range Interpretation Comments POC-GLUCOSE METER 247 mg/dL 70-110 H : TESTED A T [facility] 6720 (BEAKER) (test code = [facility] Melodie [facility], 1538) [address]: Quality Manager/Techni elsie ID = [id number] for YUKI BUCIOMOUSTAPHAFRANCY Hernandez 2D Echo W/Doppler(CW/PW/Color)2020-11-17 16:44:16Ejection FractionSLEH ECHO HEARTLAB MKCKESSON CPACSInterface, External Ris In - 11/17/2020 4:44 PM C STTransthoracic Echocardiography Report (TTE) Demographics Patient Name TROY FORTE SR. 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 The following segment(s) appear akinetic: mid to apical anteroseptum and anterior wall and apex. The rest of the segments are severely hypokinetic. LVEF by Buck's method of disk assessment is severely reduced (<20%) . Grade 3 diastolic dysfunction (marked elevated LA pressure). RV chamber size is severely enlarged with reduced systolic function. Estimated peak systolic PA pressure is 50-55 mmHg (moderate pulmonary hypertension) . Signature Findings Left Ventricle LV endocardium is well visualized with IV ultrasound enhancing agent. The left ventricle is chamber size (by vol index) is moderately enlarged. Normal LV wall thickness. The following segment(s) appear akinetic: mid to apical anteroseptum and anterior wall and apex. The rest of the segments are severely hypokinetic. Global LV systolic function severely reduced . LVEF by Buck's method of disk assessment is severely reduced (<20%) . Grade 3 diastolic dysfunction (marked elevated LA pressure). Left Atrium LA size is severely enlarged . Right Ventricle RV chamber size is severely enlarged with reduced systolic function. Right Atrium RA size is normal. Atrial Septum Normal interatrial septum by available views. Aortic Valve Tri- leaflet Aortic Valve. Mild AoV cusp calcification. No evidence of aortic regurgitation. Mitral Valve Moderate MV leaflet thickening. Trace mitral regurgitation. Tricuspid Valve TV structure is normal. Mild tricuspid regurgitation. Estimated peak systolic PA pressure is 50-55 mmHg (moderate pulmonary hypertension) . Pulmonic Valve Normal PV structure. Mild pulmonary regurgitation. Pericardium An echo lucent space is noted consistent with prominent pericardial fat pad. IVC/SVC/PA/PV/Pleural The estimated RA pressure by IVC dynamics 5-10mmHg . A right pleural effusion is noted. Ascites noted. Chambers/Structures Left Atrium LA Volume: 132.54 ml LA Area: 24.63 cm^2 LA Vol. Index: 72 ml/m^2 Left Ventricle LVIDd: 5.91 cmLVEDV:173.9 ml LV Septum Diastolic: 0.58 cm LV PW Diastolic: 0.92 cm LVEDV Buck's:169.31 ml LVESVSimpson's:139.95 ml LVEF Buck's: 17.3 % LVEDVI: 92 ml/m^2 LVESVI: 76 ml/m^2 LVOT Diameter: 2.07 cm Right Atrium RA Systolic Pressure: 8 mmHg Right Ventricle RV Systolic Pressure: 46.13 mmHg Doppler/Quantitative Measu rements Mitral Valve MV Peak E-Wave: 0.94 m/s MV Peak A-Wave: 0.26 m/s E/A Ratio: 3.63 Peak Gradient: 3.56 mmHg Deceleration Time: 130 msec MV Dean. Peak: Aortic Valve Peak Velocity: 0.9 m/s Mean Velocity: 0.6 m/s Peak Gradient: 3.24 mmHg Mean Gradient: 1.72 mmHg AV Area (continuity): 3.13 cm^2 AV VTI: 18.47 cm AV DVI: 0.93 LVOT Peak Velocity:0.94 m/s Peak Gradient: 3.55 mmHg Mean Velocity: 0.58 m/s Mean Gradient: 1.64 mmHg LVOT Diameter: 2.07 cm LVOT VTI: 17.17 cm LVOT Area: 3.37 cm^2 LVOT SV:57.75 ml LVOT CO: 4.56 l/min LVOT CI: 2.46 l/min/m^2 Tricuspid Valve EstimatedRVSP: 46.39 mmHg Estimated RAP: 8 mmHg TR Velocity: 3.09 m/s TR Gradient: 38.13 mmHg Pulmonic Valve Estimated PASP: 46.13 mmHg MT ED Velocity: 1.39 m/sCH[facility]Cytology2021-[facility]-11 15:35:00 Test Item Value Reference Range Interpretation Comments Case Report (test code Medical Cytology = 104) Report Case: [id number] Authorizing Provider: Jean-Pierre Cantor MD Collected: 11/16/2020 11:50 AM Ordering Location: [address] Received: 11/17/2020 09:32 AM Service Pathologist: Silvestre Le MD Specimen: Peritoneal Fluid DIAGNOSIS (test code = l6crwNZgLTVlg6suEANouL 3220) FuZzEwMzNcZnRuYmpcdWMx IHtccnRmMVxlcGljOTIwMF tltuMyMATmzANeE3Wtvfus YLwfUI7rVM0mdVplbKXvfH IqOTOtGcJrs2wir807zOWq m9whUAXFervvrIl6pArzG1 4hu5X9KfqzB21bpIWiLByo bGFpblxmczIwIFBFUklUT0 9JZUqqDvsZIRSqOFGLNX3K G8OBYjStIwbzoY4jRNWjQI 2mFtWFCLDMByJsLo5RFU8Q DWxELyIXJ1qazCCclWnmci ZpYHgpu6ZrQEhuMXKlVX3x pNioKJOdNW8hWZKoX0dyaU 4dpkw5IjPsOQIjEqK1UOUe psV3Thc6PJYmONptl2iwk1 MlBNRnNSq3gEppDeUrBLMg d5nlzsBxGgBnADYpOSCsEH QwkBPjR373v1rbp1uzflHt nQH2PRYlUVY1FSfbucGqrb A2BBsyzHHcMeJ9SIlfeiHx TDxewxEjizCvSbh5FWYwB3 71ZCM5zHaof3seONZ2UXJi PMJmVzIoAd3kjHBwN825GR NeMHKDRIAitXx6KPOwthRa ytSyfMQOg405Q005a4wcGJ JvloSxnEzOfcoxl6epW701 XHBhcGVydzEyMjQwXHBhcG FywXQ0KPLvIT9uucmsCYzq PTkaZLBzfmG4HFOvmSOrZ4 FiOTMsQE2qtehxSLS8AQyf FQZjZKX4TgRiQVJwb6Xeia n2LpJviu0lsf90MZR4o7Di yKwhFIY6GUR6NmWmYx1kbA EiNDVrXC6iZbYgfLJePFJk fa02gLsgPLpiLWG4WFHvbi Lqh8Vjr0zeZlGyrtJfK3bp T8VmBAAxMAVsGFCwQlAzzh Zjm4Yvx5MqrLAhcVe1h6tb QHKnHEDvqQymh7hpOIC2LN VmoYDnW2awsX5gTXEqAW3n oepfo7ivTIduWZdqRJYioK R4kgM9OPYnuJAuB4SutY6q SRFzRInkYFCvxwe7XaQgEu 9vdGVyeTcyMFxzYmtwYWdl XHBnbmNvbnRccGduZGVjXH BsYWluXHBsYWluXGYwXGZz MjRccWxcbGFuZzEwMzNcaG ljaFxmMVxkYmNoXGYxXGxv V1kfNhHvTwCiGhc4IUWkgU HdHUQgCyp8BHFliBXxAMGV tCriqV0pZRQtqXibiC9iuI S3UNYjptTvnTYEvO1bVRFJ mO2nUfT0WzHyPoN2FRF9FV FCASJmhi94 CPT Code(s) (test code s5tuzQTuZXOxuCQ0YuWnDP = 3357) Oyk0wrv9XnmOIqlINhHFcu qLBkyrXcfn23zQP6wB02DJ 1eZIClMuT9TPEsplJ1Qlm6 DLCeRIQvbCIsQ522w7qnp9 ssltTjbVV8gKgiAVPeBZMq YWluXGZzMjAgODgxMDhccG FyfQ== CLINICAL DATA (test b4amgCVjWVNdrAQ9EbJpVC code = 3355) Vse1zyt2KasGOudRGzDErj yZGjnvMokl70xXV6rG32AZ 6iTDRwXkU5MMSstsW5Jvc3 IPEtWFStjUExH240c1tdx5 xltxVafSU7jYcgVDTtIAUx YWluXGZzMjAgQXNjaXRlcy vvU2dBUEEkhk9= SPECIMEN SOURCE (test a6jamYOsGHCpaRG0KbGsMB code = 3377) Zsb8goo6PvuINgyFXaKFjb ySMhxuCmoa40aIG7iT15TD 1wSUNyLdS6JFZatgU3Vkk6 KLYdHUCqqPRbJ045a5zoj7 ztgaNjpMC2rNbvMZSfYVFl YWluXGZzMjAgUEVSSVRPTk VBTCBGTFVJRFxwYXJ9 GROSS DESCRIPTION (test s6wdbEOxYFBwoNZ0DrIlXJ code = 3366) Cpl3dxk2PvmYGfgYRlRHjy cJJuiyImys38wLH7iB51YQ 7qOPLnEpS8HZHjexZ6Zqi3 GSMzCCThgEZrP795p8yuv0 wosjIpsSU0gLybONQqZMLb YWluXGZzMjAgMTEwMCBtbH BaQU8sEWVjKff4lRY9RFTj P7h5t6YhvL5tJAMllq7= MICROSCOPIC DESCRIPTION b7qzcTEhPZHzePE7OjFvQR (test code = 3371) Nbt7cvz1ZjgMPbcHGoFFiy lNFxptFnty14bYQ4kU09MI 4hHQUnHcG6OXCosrP3Qcd0 ODQoBLFueUGdV865w8rqw3 fvpgCjcEP9jImwQUPmKRQf PFhsEGQlUzPoWUTpDn2foX VkLiBccGFyfQ== STATEMENT OF ADEQUACY Satisfactory (test code = 2757) Gross assessment was [facility] performed at (test code [facility], = 2777) Department of Pathology, [address] [place] [address], [place] [address], Technical component was [facility] . [facility] performed at (test code [facility], = 2778) Department of Pathology, [address] [place] [id number], Professional component [facility] was performed at ([facility], code = 2779) Department of Pathology, [address] [place] [address], [facility]:35:00Medical Cytology Report Case: [id number] Aut horizing Provider: Jean-Pierre Cantor MD Collected: 11/16/2020 11:50 AM Ordering Location: [address] Received: 11/17/2020 09:32 AM Service Pathologist: Silvestre Le MD Specimen: Peritoneal Fluid PERITONEAL FLUID (CYTOPSPINS): - NEGATIVE FOR MALIGNANCY Signing Pathologist Direct Phone Line: [phone] signed by Silvestre Le MD on 11/17/2020 at 3:35 [id number], CHFPERITONEAL [id number] mls madina fluid; 4 cytospinsPerformed. [facility], Department of Pathology, [address] [place] [address], [facility] of Pathology, [address] [place] [id number], [facility], Department of Pathology, [address] [place] [id number], Zqtl-Nuclear Antibody (SANTANA)2020-11-17 15:14:00 Test Item Value Reference Range Interpretation Comments SANTANA (test code = 31904-0) Negative Negative HARVEY (test code = HARVEY) Test performed by IFA method.Test performed by IFA method. Lab Interpretation (test Normal code = 69342-5) [facility]SANTANA[facility]2020-11-17 15:14:00 Test Item Value Reference Range Interpretation Comments ANTI-NUCLEAR ANTIBODY (SANTANA) (BEAKER) Negative Negative (test code = 418) Test performed by IFA method.Test performed by IFA method.Protein, Total, Peritoneal [id number] 15:08:00 Test Item Value Reference Range Interpretation Comments PROTEIN, TOTAL, PERITONEAL FLUID 5.2 g/dL (test code = 2883-7) [facility] PERITONEAL [id number] 15:08:00 Test Item Value Reference Range Interpretation Comments PROTEIN, TOTAL, PERITONEAL FLUID 5.2 g/dL (BEAKER) (test code = 8135060) POCT-GLUCOSE [id number] 12:05:00 Test Item Value Reference Range Interpretation Comments POC-GLUCOSE METER 187 mg/dL 70-110 H : TESTED A T [facility] 6720 (BEAKER) (test code = [facility], 1538) 14497: Quality Manager/Techni elsie ID = [id number] for FRANCY GASPAR POCT-GLUCOSE [id number] 08:00:00 Test Item Value Reference Range Interpretation Comments POC-GLUCOSE METER 202 mg/dL 70-110 H : TESTED A T [facility] 6720 (BEAKER) (test code = [facility], 1538) [address]: Quality Manager/Techni elsie ID = [id number] for FRANCY GASPAR BASIC METABOLIC [id number] 06:49:00 Test Item Value Reference Range Interpretation Comments SODIUM (BEAKER) 134 meq/L 136-145 L (test code = 381) POTASSIUM (BEAKER) 4.4 meq/L 3.5-5.1 (test code = 379) CHLORIDE (BEAKER) 95 meq/L 98-107 L (test code = 382) CO2 (BEAKER) (test 24 meq/L 22-29 code = 355) BLOOD UREA NITROGEN 68 mg/dL 7-21 H (BEAKER) (test code = 354) CREATININE (BEAKER) 5.11 mg/dL 0.57-1.25 H (test code = 358) GLUCOSE RANDOM 260 mg/dL 70-105 H (BEAKER) (test code = 652) CALCIUM (BEAKER) 7.3 mg/dL 8.4-10.2 L (test code = 697) EGFR (BEAKER) (test 11 mL/min/1.73 ESTIMA NOVA GFR IS code = 1092) sq m NOT ACCURATE CREATININE CLEARANCE IN PREDICTING GLOMERULAR FILTRATION RATE . ESTIMATED GFR I S NOT APPLICABLE FOR DIALYSIS PATIEN TS. Quality Manager ID - WNMAGQxyrhvlnwq6920-88-85 06:46:00 Test Item Value Reference Range Interpretation Comments Phosphorus (test code = 6.9 mg/dL 2.3-4.7 H 2777-1) HARVEY (test code = HARVEY) Quality Manager ID - EDASI Lab Interpretation (test Abnormal code = 62168-9) [facility] 06:46:00 Test Item Value Reference Range Interpretation Comments MAGNESIUM (BEAKER) (test code = 1.9 mg/dL 1.6-2.6 627) Quality Manager ID - OZLLGQIXSFCZOWS6229-96-39 06:46:00 Test Item Value Reference Range Interpretation Comments PHOSPHORUS (BEAKER) (test code = 6.9 mg/dL 2.3-4.7 H 604) Quality Manager ID - EDASIHEPATIC FUNCTION [id number] 06:46:00 Test Item Value Reference Range Interpretation Comments TOTAL PROTEIN (BEAKER) (test code = 6.2 gm/dL 6.0-8.3 770) ALBUMIN (BEAKER) (test code = 1145) 3.0 g/dL 3.5-5.0 L BILIRUBIN TOTAL (BEAKER) (test code 0.6 mg/dL 0.2-1.2 = 377) BILIRUBIN DIRECT (BEAKER) (test 0.4 mg/dL 0.1-0.5 code = 706) ALKALINE PHOSPHATASE (BEAKER) (test 105 U/L 40-150 code = 346) AST (SGOT) (BEAKER) (test code = 17 U/L 5-34 353) ALT (SGPT) (BEAKER) (test code = 10 U/L 6-55 347) Quality Manager ID - EDASIPTH, [id number] 06:40:00 Test Item Value Reference Range Interpretation Comments PTH (test code = 2731-8) 540.2 pg/mL 8.5-72.5 H HARVEY (test code = HARVEY) Quality Manager ID - DB Lab Interpretation (test Abnormal code = 88785-8) [facility], [id number] 06:40:00 Test Item Value Reference Range Interpretation Comments PARATHYROID HORMONE INTACT 540.2 pg/mL 8.5-72.5 H (BEAKER) (test code = 577) Quality Manager ID - DBCBC with platelet count + automated [id number] 06:23:00 Test Item Value Reference Range Interpretation Comments WBC (test code = 6690-2) 6.2 See_Comment [A utomated message] The system [employer] generated this result transmitted ref erence range: 3.5 - 10 .5 K/L. The refe rence range was not u sed to interpret this result as normal/abnor mal. RBC (test code = 789-8) 2.88 See_Comment L [Au tomated message] The system [employer] generated this result transmitted ref erence range: 4.63 - 6 .08 M/L. The refe rence range was not u sed to interpret this result as normal/abnor mal. MCHC (test code = 786-4) 30.5 See_Comment L [A utomated message] The system [employer] generated this result transmitted ref erence range: 32.3 - 3 6.5 GM/DL. The refe rence range was not u sed to interpret this result as normal/abnor mal. Hematocrit (test code = 25.9 % 40.1-51 L 4544-3) MCV (test code = 787-2) 89.9 fL 79-92.2 MCH (test code = 785-6) 27.4 pg 25.7-32.2 RDW (test code = 788-0) 16.4 % 11.6-14.4 H Platelets (test code = 214 See_Comment [Aut omated message] 777-3) The system [employer] generated this result transmitted ref erence range: 150 - 45 0 K/CU MM. The referen ce range was not u sed to interpret this result as normal/abnor mal. MPV (test code = 10.7 fL 9.4-12.4 90148-5) nRBC (test code = 413) 0 See_Comment [Aut omated message] The system [employer] generated this result transmitted ref erence range: 0 - 0 /1 00 WBC. The refere nce range was not u sed to interpret this result as normal/abnor mal. % Neutros (test code = 79 % 429) % Lymphs (test code = 5 % 430) % Monos (test code = 14 % 431) % Eos (test code = 432) 1 % % Baso (test code = 437) 0 % # Neutros (test code = 4.90 See_Comment [Aut omated message] 670) The system [employer] generated this result transmitted ref erence range: 1.78 - 5 .38 K/L. The refe rence range was not u sed to interpret this result as normal/abnor mal. # Lymphs (test code = 0.31 See_Comment L [Auto mated message] 414) The system [employer] generated this result transmitted ref erence range: 1.32 - 3 .57 K/L. The refe rence range was not u sed to interpret this result as normal/abnor mal. # Monos (test code = 0.87 See_Comment H [Autom ated message] 415) The system [employer] generated this result transmitted ref erence range: 0.30 - 0 .82 K/L. The refe rence range was not u sed to interpret this result as normal/abnor mal. # Eos (test code = 416) 0.03 See_Comment L [Au tomated message] The system [employer] generated this result transmitted ref erence range: 0.04 - 0 .54 K/L. The refe rence range was not u sed to interpret this result as normal/abnor mal. # Baso (test code = 417) 0.01 See_Comment [A utomated message] The system [employer] generated this result transmitted ref erence range: 0.01 - 0 .08 K/L. The refe rence range was not u sed to interpret this result as normal/abnor mal. Immature 1 % 0-1 Granulocytes-Relative (test code = 2801) Lab Interpretation (test Abnormal code = 50766-4) [facility] W/PLT COUNT & AUTO [id number] 06:23:00 Test Item Value Reference Range Interpretation Comments WHITE BLOOD CELL COUNT (BEAKER) 6.2 K/ L 3.5-10.5 (test code = 775) RED BLOOD CELL COUNT (BEAKER) 2.88 M/ L 4.63-6.08 L (test code = 761) HEMOGLOBIN (BEAKER) (test code = 7.9 GM/DL 13.7-17.5 L 410) HEMATOCRIT (BEAKER) (test code = 25.9 % 40.1-51.0 L 411) MEAN CORPUSCULAR VOLUME (BEAKER) 89.9 fL 79.0-92.2 (test code = 753) MEAN CORPUSCULAR HEMOGLOBIN 27.4 pg 25.7-32.2 (BEAKER) (test code = 751) MEAN CORPUSCULAR HEMOGLOBIN CONC 30.5 GM/DL 32.3-36.5 L (BEAKER) (test code = 752) RED CELL DISTRIBUTION WIDTH 16.4 % 11.6-14.4 H (BEAKER) (test code = 412) PLATELET COUNT (BEAKER) (test 214 K/CU MM 150-450 code = 756) MEAN PLATELET VOLUME (BEAKER) 10.7 fL 9.4-12.4 (test code = 754) NUCLEATED RED BLOOD CELLS 0 /100 WBC 0-0 (BEAKER) (test code = 413) NEUTROPHILS RELATIVE PERCENT 79 % (BEAKER) (test code = 429) LYMPHOCYTES RELATIVE PERCENT 5 % (BEAKER) (test code = 430) MONOCYTES RELATIVE PERCENT 14 % (BEAKER) (test code = 431) EOSINOPHILS RELATIVE PERCENT 1 % (BEAKER) (test code = 432) BASOPHILS RELATIVE PERCENT 0 % (BEAKER) (test code = 437) NEUTROPHILS ABSOLUTE COUNT 4.90 K/ L 1.78-5.38 (BEAKER) (test code = 670) LYMPHOCYTES ABSOLUTE COUNT 0.31 K/ L 1.32-3.57 L (BEAKER) (test code = 414) MONOCYTES ABSOLUTE COUNT (BEAKER) 0.87 K/ L 0.30-0.82 H (test code = 415) EOSINOPHILS ABSOLUTE COUNT 0.03 K/ L 0.04-0.54 L (BEAKER) (test code = 416) BASOPHILS ABSOLUTE COUNT (BEAKER) 0.01 K/ L 0.01-0.08 (test code = 417) IMMATURE GRANULOCYTES-RELATIVE 1 % 0-1 PERCENT (BEAKER) (test code = 2801) POCT-GLUCOSE [id number] 22:19:00 Test Item Value Reference Range Interpretation Comments POC-GLUCOSE METER 233 mg/dL 70-110 H : TESTED A T [facility] 6720 (BEAKER) (test code = [place], 1538) [address]: Quality Manager/Techni elsie ID = [id number] for Emmanuel Moreno POCT-GLUCOSE [id number] 17:34:00 Test Item Value Reference Range Interpretation Comments POC-GLUCOSE METER 179 mg/dL 70-110 H : Notified RN/MD: (CONRAD) (test code = TESTED AT [facility] 6720 1538) [facility], [address]: Quality Manager/Techni elsie ID = [id number] for RICARDO COOK [id number] 15:07:00 Test Item Value Reference Range Interpretation Comments Ferritin (test code = 3231.34 ng/mL 5-275 H 2276-4) HARVEY (test code = HARVEY) Quality Manager ID - EDASIOperator ID - EDASI Lab Interpretation Abnormal (test code = 39309-2) [facility] 15:07:00 Test Item Value Reference Range Interpretation Comments FERRITIN (CONRAD) (test code = 3231.34 ng/mL 5.00-275.00 H 361) Quality Manager ID - EDASIOperator ID - EDASIBody fluid cell count with differential 2020-11-16 14:00:00 Test Item Value Reference Range Interpretation Comments Appearance (test code = Cloudy Clear A 9335-1) Color (test code = Yellow Colorless, Straw A 6824-7) RBCs (test code = 105 See_Comment H [Automate d message] 95239-9) The system [employer] generated this result transmit nova reference range : <=1 /cu mm. The reference range was not used to interpret this result as normal/abnormal . Adjusted WBC Count 660 See_Comment H [Automat ed message] (test code = 97542-1) The sy stem which generated this result transmit nova reference range : <=5 /cu mm. The reference range was not used to interpret this result as normal/abnormal . Lining Cells (test code 0 See_Comment [Au tomated message] = 96068-6) The system [employer] generated this result transmit nova reference range : <=1 /cu mm. The reference range was not used to interpret this result as normal/abnormal . % Segs (test code = 4 % 50139-3) % Lymphs (test code = 27 % 15495-6) % Monos (test code = 69 % 51398-2) % Eos (test code = 0 % 02818-3) % Baso (test code = 0 % 28775-5) Container Body Fluid EDTA Tube (test code = 2873) Lab Interpretation Abnormal (test code = 75724-4) [facility] Center[facility] WITH [id number] 14:00:00 Test Item Value Reference Range Interpretation Comments APPEARANCE FLUID (BEAKER) (test Cloudy Clear A code = 510) COLOR FLUID (BEAKER) (test code = Yellow Colorless, Straw A 511) RBC FLUID (BEAKER) (test code = 105 /cu mm <=1 H 513) ADJUSTED WBC FLUID (BEAKER) (test 660 /cu mm <=5 H code = 1691) LINING CELLS (BEAKER) (test code 0 /cu mm <=1 = 1590) NEUTROPHILS FLUID (BEAKER) (test 4 % code = 1656) LYMPHS FLUID (BEAKER) (test code 27 % = 488) MONO/MACROPHAGE FLUID (BEAKER) 69 % (test code = 489) EOSINOPHILS FLUID (BEAKER) (test 0 % code = 491) BASO FLUID (BEAKER) (test code = 0 % 492) CONTAINER BODY FLUID (BEAKER) EDTA Tube (test code = 2873) POCT-GLUCOSE [id number] 13:16:00 Test Item Value Reference Range Interpretation Comments POC-GLUCOSE METER 206 mg/dL 70-110 H : Notified RN/MD: (BEAKER) (test code = TESTED AT [facility] 6720 1538) [facility], [address]: Quality Manager/Techni elsie ID = [id number] for AN MEEKVIKTORIYA RICARDO U/S, [id number] 12:46:00Last Plavix 11/13Labs to be ordered:->Body Fluid Culture (w/Gram Stain, C\T\S)Needs total protein, and fluid albumin for SAAG calculationLabs to be ordered:->CytologyLabs to be ordered:->Cell Cou ntLabs to be ordered:->Other (please add comment)Reason for exam:->[facility] : 1955 Sex: MFINAL REPORT PROCEDURE: Ultrasound-guided paracentesis. INDICATION: 65-year-old man with ascites. DESCRIPTION: After obtaining informed written consent, ultrasound scan of theabdomen identified ascites in the right lower quadrant. The overlying skin was prepped and draped inthe usual, sterile fashion and local 2% lidocaine anesthesia was administered. A 5 Canadian catheter was advanced into the peritoneal cavity and 5600 cc of serous fluid was removed. The catheter was removed without immediate complication. Samples were sent for analysis. IMPRESSION:Uncomplicated ultrasound-guided paracentesis with 5600 cc fluid removed. Signed: Charles Floydeport Verified Date/Time: 11/16/2020 12:46:29 Reading Location: [address] Body Reading Room US paracentesis 2020-11-16 12:46:00Interface, External Ris In - 11/16/2020 12:49 PM CSTFINAL REPORT PROCEDURE: Ultrasound-guided paracentesis. INDICATION: 65-year-old man with ascites. DESCRIPTION: After obtaininginformed written consent, ultrasound scan of the abdomen identified ascites in the right lower quadrant. The overlying skin was prepped and draped in the usual, sterile fashion and local 2% lidocaine anesthesia was administered. A 5 Canadian catheter was advanced into the peritoneal cavity and 5600 cc of serous fluid was removed. The catheter was removed without immediate complication. Samples were sent for analysis. IMPRESSION:Uncomplicated ultrasound-guided paracentesis with 5600 cc fluid removed. Signed: Charles Floyd MDReport Verified Date/Time: 11/16/2020 12:46:29 Reading Location: [address] Body Reading Room . [facility] CenterAbissgIfbmd-0-gdhrmlusvut7728-01-10 11:46:00 Test Item Value Reference Range Interpretation Comments A-1 Antitrypsin (test 235.00 mg/dL 90-200 H code = 1825-9) HARVEY (test code = HARVEY) Quality Manager ID - EDASIOperator ID - AAHAMID Lab Interpretation Abnormal (test code = 22916-4) [facility] CenterEiyqitYALST-9-[id number] 11:46:00 Test Item Value Reference Range Interpretation Comments ALPHA-1 ANTITRYPSIN (BEAKER) 235.00 mg/dL 90.00-200.00 H (test code = 502) Quality Manager ID - EDASIOperator ID - AAHAMIDSARS-CoV2/RT-PCR (Asymptomatic ONLY) 2020-11-16 11:16:00 Test Item Value Reference Range Interpretation Comments SARS-COV2/RT-PCR Negative Not Detected, (test code = Negative, See 08160-6) external report for linked test SARS-COV-2 [facility] PERFORMING LAB (test code = 58039-5) HARVEY (test code = Negative result for this HARVEY) test determines that SARS-CoV-2 RNA was not present in the specimen above the Limit of Detection (LOD). However, Negative results do not preclude SARS-CoV-2 infection and should not be used as the sole basis for treatment or patient management decisions. Negative results must be combined with clinical observations, patient history, and epidemiological information. A false negative result may occur if a specimen is improperly collected, transported or handled. A false negative result should be considered if patient's recent exposures or clinical presentation indicate that COVID-19 (SARS-CoV-2) is likely and diagnostic tests for other causes of illness are negative. Re-testing should be considered in cases of suspected false negatives. The limit of detection for this assay is 800 copies/mL. This SARS CoV-2 test is a real-time RT-PCR test intended for the qualitative detection of nucleic acid from SARS-CoV-2 in a nasopharyngeal swab specimen collected from individuals suspected of COVID-19 by their healthcare provider. This test has not been Food and Drug Administration (FDA) cleared or approved. This is a modified version of an approved Emergency Use Authorization (EUA) and is in the process of review by the FDA. Once authorized by the FDA, the issued EUA will be effective until the declaration that circumstances exist justifying the authorization of the emergency use of in vitro diagnostic tests for detection and/or diagnosis of COVID-19 is terminated under Section 564(b)(2) of the Act or the EUA is revoked under Section 564(g) of the Act. Fact Sheet for Healthcare Providers:https://www.[employer]/sites/default/f luther/product/documents/F act_Sheet_HC_Providers_L zui_OQIF-OzD-2.pdf Fact Sheet for Healthcare Patients:https://www.[employer]/sites/default/fi les/product/documents/Fa ct_Sheet_Patients_Lyra_S ARS-CoV-2.pdf Performing Laboratory:[facility], [place] [address] [place], [place] [address]ARS-COV2/RT-PCR ([facility])2020-11-16 11:16:00 Test Item Value Reference Range Interpretation Comments SARS-COV2/RT-PCR (test Negative Not Detected, Negative, code = 2446772) See external report for linked test SARS-COV-2 PERFORMING LAB [facility] KARINA (test code = 7894661) Negative result for this test determines that SARS-CoV-2 RNA was not present in the specimen above the Limit of Detection (LOD). However, Negative results do not preclude SARS-CoV-2 infection and should not be used as the sole basis for treatment or patient management decisions. Negative results mustbe combined with clinical observations, patient history, and epidemiological information. A false negative result may occur if a specimen is improperly collected, transported or handled. A false negative result should be considered if patient's recent exposures or clinical presentation indicate that COVID-19 (SARS-CoV-2) is likely and diagnostic tests for other causes of illness are negative. Re-testing should be considered in cases of suspected false negatives.The limit of detection for this assay is 800 copies/mL.This SARS CoV-2 test is a real-time RT-PCR test intended for the qualitative detection of nucleic acid from SARS-CoV-2 in a nasopharyngeal swab specimen collected from individuals susp ected of COVID-19 by their healthcare provider.This test has not been Food and Drug Administration (FDA) cleared or approved. This is a modified version of an approved Emergency Use Authorization (EUA) and is in the process of review by the FDA. Once authorized by the FDA, the issued EUA will be effective until the declaration that circumstances exist justifying the authorization of the emergency use of in vitro diagnostic tests for detection and/or diagnosis of COVID-19 is terminated under Section 564(b)(2) of the Act or the EUA is revoked under Section 564(g) of the Act.Fact Sheet for Healthcare Providers:https://www.[employer]/sites/default/files/product/documents/Fact_Shee i_WX_Vaqdtackf_Rkyc_TXDQ-UdK-1.pdfFact Sheet for Healthcare Patients:https://www.[employer]/sites/default/files/product/ documents/Betf_Rrtbe_Xrbagzkx_Wjyj_AMGW-RtU-9.pdfPerforming Laboratory:[facility], [place] [address]Dvumokpci A antibody, [id number] 11:06:00 Test Item Value Reference Range Interpretation Comments Hep A IgG (test code = Reactive Nonreactive A 13836-6) HARVEY (test code = HARVEY) Quality Manager ID - AAHAMID Lab Interpretation (test Abnormal code = 76273-0) [facility] CenterHEPATITIS A ANTIBODY, [id number] 11:06:00 Test Item Value Reference Range Interpretation Comments HEPATITIS A IGG ANTIBODY (BEAKER) Reactive Nonreactive A (test code = 2797) Quality Manager ID - AAHAMIDAlpha fetoprotein (AFP), tumor [id number] 10:52:00 Test Item Value Reference Range Interpretation Comments Alpha-Fetoprotein <2.0 See_Comment [Automate d (test code = 1834-1) message ] The system which generated this result transmit nova reference range : <10.0 ng/mL. Th e reference range was not used to interpret this result as normal/abnormal . HARVEY (test code = HARVEY) Quality Manager ID - AAHAMID Lab Interpretation Normal (test code = 14627-8) [facility] CenterALPHA FETOPROTEIN (AFP), TUMOR [id number] 10:52:00 Test Item Value Reference Range Interpretation Comments ALPHA-FETOPROTEIN (BEAKER) (test code < ng/mL <10.0 = 1094) Quality Manager ID - AAHAMIDHepatitis B surface uzulgqdd4005-72-96 09:52:00 Test Item Value Reference Range Interpretation Comments Hep B S Ab (test code 256.5 See_Comment H [Auto mated = 74730-5) message] The system which generated this result transmit nova reference range : <8.0 mIU/mL. Th e reference range was not used to interpret this result as normal/abnormal . HARVEY (test code = HARVEY) Quality Manager ID - AAHAMID Lab Interpretation Abnormal (test code = 56935-4) [facility] CenterHepatitis B core antibody, [id number] 09:52:00 Test Item Value Reference Range Interpretation Comments Hep B Core Total Ab Nonreactive Nonreactive (test code = 66446-8) HARVEY (test code = HARVEY) Quality Manager ID - AAHAMID Lab Interpretation (test Normal code = 29171-0) [facility] CenterHepatitis A antibody, [id number] 09:52:00 Test Item Value Reference Range Interpretation Comments Hep A IgM (test code = Nonreactive Nonreactive 21976-5) HARVEY (test code = HARVEY) Quality Manager ID - AAHAMID Lab Interpretation (test Normal code = 76801-4) [facility] CenterHEPATITIS A ANTIBODY, [id number] 09:52:00 Test Item Value Reference Range Interpretation Comments HEPATITIS A IGM ANTIBODY (BEAKER) Nonreactive Nonreactive (test code = 498) Quality Manager ID - AAHAMIDHEPATITIS B CORE ANTIBODY, [id number] 09:52:00 Test Item Value Reference Range Interpretation Comments HEPATITIS B CORE TOTAL ANTIBODY Nonreactive Nonreactive (BEAKER) (test code = 497) Quality Manager ID - AAHAMIDHEPATITIS B SURFACE [id number] 09:52:00 Test Item Value Reference Range Interpretation Comments HEPATITIS B SURFACE ANTIBODY 256.5 mIU/mL <8.0 H (BEAKER) (test code = 647) Quality Manager ID - AASHEKHARIDPOCT-GLUCOSE [id number] 08:18:00 Test Item Value Reference Range Interpretation Comments POC-GLUCOSE METER 190 mg/dL 70-110 H : Notified RN/MD: (CONRAD) (test code = TESTED AT [facility] 6740 2490) [facility], [address]: Quality Manager/Techni elsie ID = [id number] for AN RICARDO DAUGHERTY U/S, ABDOMINAL, [id number] 06:31:00Evaluate spleen size and hepatic vesselsAbdomen limited area? Add comment if clarification is needed.- >LiverReason for exam:->New onset ascites - CT with nodular liver contour - please examine hepatic vasculature to r/o PVT [facility] 1955 Sex: MFINAL REPORT U/S, DUPLEX, DOPPLER, U/S, ABDOMINAL, LIMITED CLINICAL INDICATION: hepatic vasculature pvt.New onset ascites with nodular liver contour. COMPARISON: None TECHNIQUE: Limited abdominal performed. Color and spectral Doppler ultrasound of the hepatic vasculaturewas performed. FINDINGS: Liver: 16 cm in length at the right midclavicular line. Cirrhotic morphology. No lesion is identified by ultrasound. Main portal vein is patent measuring 1.1 cm in diameter and demonstrates hepatopetal flow. Biliary tree: Common duct 5 mm. No intrahepatic biliary ductal dilatation. Gallbladder: Small amount of sludge. No wall thickening. No pericholecystic fluid.Negative sonographic Luevano's sign. Pancreas: Partially obscured by bowel gas but the visualized portions are unremarkable. Ascites: Small to moderate right upper quadrant ascites. Small left upper quadrant ascites. Spleen: Normal size measuring 9.7 x 3.3 x 3.5 cm. Right kidney: 9.9 x 5.8 x 4.8 cm with cortical thickness of 0.9 cm. Normal cortical echogenicity. No mass. No shadowing calculus. No hydronephrosis. IVC/Aorta: Segments partially seen. Unremarkable. Miscellaneous: Right pleural effusion. Color and spectral Doppler evaluation of the hepatic vasculature: The main portal vein and branches are patent and demonstrate hepatopetal flow. The peak systolic velocity in the main portal vein is 20.7 cm/s. The proper, right and left hepatic arteries are patent with normal waveforms. The resistive indices in the proper, right and left hepatic arteries are 0.8, 0.7 and 0.8 respectively. Thehepatic confluence, main hepatic vein and branches are patent with normal waveforms. The splenic vein at the pancreatic head and tail are patent with normal waveforms. The splenic artery and vein at the hilum are patent with normal waveforms. IMPRESSION:Cirrhosis.Small to moderate upper abdominal ascites.Elevated resistive indices in the proper and left hepatic arteries.No portal venous thrombosis.Right pleural effusion. Signed: Elidia Patel [facility] Verified Date/Time: 11/16/2020 06:31:37 U/S, DUPLEX, [id number] 06:31:00Reason for exam:->hepatic vasculature pvt [facility] 1955 Sex: MFINAL REPORT U/S, DUPLEX, DOPPLER, U/S, ABDOMINAL, LIMITED CLINICAL INDICATION: hepatic vasculature pvt.New onset ascites with nodular liver contour. COMPARISON: None TECHNIQUE: Limited abdominal performed. Color and spectral Doppler ultrasound of the hepatic vasculaturewas performed. FINDINGS: Liver: 16 cm in length at the right midclavicular line. Cirrhotic morphology. No lesion is identified by ultrasound. Main portal vein is patent measuring 1.1 cm in diameter and demonstrates hepatopetal flow. Biliary tree: Common duct 5 mm. No intrahepatic biliary ductal dilatation. Gallbladder: Small amount of sludge. No wall thickening. No pericholecystic fluid.Negative sonographic Luevano's sign. Pancreas: Partially obscured by bowel gas but the visualized portions are unremarkable. Ascites: Small to moderate right upper quadrant ascites. Small left upper quadrant ascites. Spleen: Normal size measuring 9.7 x 3.3 x 3.5 cm. Right kidney: 9.9 x 5.8 x 4.8 cm with cortical thickness of 0.9 cm. Normal cortical echogenicity. No mass. No shadowing calculus. No hydronephrosis. IVC/Aorta: Segments partially seen. Unremarkable. Miscellaneous: Right pleural effusion. Color and spectral Doppler evaluation of the hepatic vasculature: The main portal vein and branches are patent and demonstrate hepatopetal flow. The peak systolic velocity in the main portal vein is 20.7 cm/s. The proper, right and left hepatic arteries are patent with normal waveforms. The resistive indices in the proper, right and left hepatic arteries are 0.8, 0.7 and 0.8 respectively. Thehepatic confluence, main hepatic vein and branches are patent with normal waveforms. The splenic vein at the pancreatic head and tail are patent with normal waveforms. The splenic artery and vein at the hilum are patent with normal waveforms. IMPRESSION:Cirrhosis.Small to moderate upper abdominal ascites.Elevated resistive indices in the proper and left hepatic arteries.No portal venous thrombosis.Right pleural effusion. Signed: Elidia Patel MDReport Verified Date/Time: 11/16/2020 06:31:37 US abdomen [id number] 06:31:00Interface, External Ris In - 11/16/2020 6:34 AM CSTFINAL REPORT U/S, DUPLEX, DOPPLER, U/S, ABDOMINAL, LIMITED CLINICAL INDICATION: hepatic vasculature pvt.New onset asciteswith nodular liver contour. COMPARISON: None TECHNIQUE: Limited abdominal performed. Color and spectral Doppler ultrasound of the hepatic vasculature was performed. FINDINGS: Liver: 16 cm in length at the right midclavicular line. Cirrhotic morphology. No lesion is identified by ultrasound. Main portal vein is patent measuring 1.1 cm in diameter and demonstrates hepatopetal flow. Biliary tree: Common duct 5 mm. No intrahepatic biliary ductal dilatation. Gallbladder: Small amount of sludge. No wall thickening. No pericholecystic fluid. Negative sonographic Luevano's sign. Pancreas: Partially obscured by bowel gas but the visualized portions are unremarkable. Ascites: Small to moderateright upper quadrant ascites. Small left upper quadrant ascites. Spleen: Normal size measuring 9.7 x3.3 x 3.5 cm. Right kidney: 9.9 x 5.8 x 4.8 cm with cortical thickness of 0.9 cm. Normal cortical echogenicity. No mass. No shadowing calculus. No hydronephrosis. IVC/Aorta: Segments partially seen. Unremarkable. Miscellaneous: Right pleural effusion. Color and spectral Doppler evaluation of the hepatic vasculature: The main portal vein and branches are patent and demonstrate hepatopetal flow.The peak systolic velocity in the main portal vein is 20.7 cm/s. The proper, right and left hepatic arteries are patent with normal waveforms. The resistive indices in the proper, right and left hepatic arteries are 0.8, 0.7 and 0.8 respectively. The hepatic confluence, main hepatic vein and branches are patent with normal waveforms. The splenic vein at the pancreatic head and tail are patent with normal waveforms. The splenic artery and vein at the hilum are patent with normal waveforms. IMPRESSION:Cirrhosis.Small to moderate upper abdominal ascites.Elevated resistive indices in the proper and left hepatic arteries.No portal venous thrombosis.Right pleural effusion. Signed: Elidia Patel MDReportVerified Date/Time: 11/16/2020 06:31:37 [id number] 06:31:00Interface, External Ris In - 11/16/2020 6:34 AM CSTFINAL REPORT U/S, DUPLEX, DOPPLER, U/S, ABDOMINAL, LIMITED CLINICAL INDICATION: hepatic vasculature pvt.New onset asciteswith nodular liver contour. COMPARISON: None TECHNIQUE: Limited abdominal performed. Color and spectral Doppler ultrasound of the hepatic vasculature was performed. FINDINGS: Liver: 16 cm in length at the right midclavicular line. Cirrhotic morphology. No lesion is identified by ultrasound. Main portal vein is patent measuring 1.1 cm in diameter and demonstrates hepatopetal flow. Biliary tree: Common duct 5 mm. No intrahepatic biliary ductal dilatation. Gallbladder: Small amount of sludge. No wall thickening. No pericholecystic fluid. Negative sonographic Luevano's sign. Pancreas: Partially obscured by bowel gas but the visualized portions are unremarkable. Ascites: Small to moderateright upper quadrant ascites. Small left upper quadrant ascites. Spleen: Normal size measuring 9.7 x3.3 x 3.5 cm. Right kidney: 9.9 x 5.8 x 4.8 cm with cortical thickness of 0.9 cm. Normal cortical echogenicity. No mass. No shadowing calculus. No hydronephrosis. IVC/Aorta: Segments partially seen. Unremarkable. Miscellaneous: Right pleural effusion. Color and spectral Doppler evaluation of the hepatic vasculature: The main portal vein and branches are patent and demonstrate hepatopetal flow.The peak systolic velocity in the main portal vein is 20.7 cm/s. The proper, right and left hepatic arteries are patent with normal waveforms. The resistive indices in the proper, right and left hepatic arteries are 0.8, 0.7 and 0.8 respectively. The hepatic confluence, main hepatic vein and branches are patent with normal waveforms. The splenic vein at the pancreatic head and tail are patent with normal waveforms. The splenic artery and vein at the hilum are patent with normal waveforms. IMPRESSION: Cirrhosis.Small to moderate upper abdominal ascites.Elevated resistive indices in the proper and left hepatic arteries.No portal venous thrombosis.Right pleural effusion. Signed: Elidia Patel MDReportVerified Date/Time: 11/16/2020 06:31:37 [facility] [id number] 22:44:00 Test Item Value Reference Range Interpretation Comments POC-GLUCOSE METER 191 mg/dL 70-110 H : TESTED A T [facility] 6720 (BEAKER) (test code = [facility], 1538) [address]: Quality Manager/Techni elsie ID = [id number] for YUKI CLEMENT POCT-GLUCOSE [id number] 22:26:00 Test Item Value Reference Range Interpretation Comments POC-GLUCOSE METER 211 mg/dL 70-110 H : TESTED A T [facility] 6720 (BEAKER) (test code = [facility], 1538) 16684: Quality Manager/Techni elsie ID = [id number] for JAMES SPRING POCT-GLUCOSE [id number] 19:18:00 Test Item Value Reference Range Interpretation Comments POC-GLUCOSE METER 122 mg/dL 70-110 H : TESTED A T [facility] 6720 (BEAKER) (test code = [facility], 1538) 413[address]: Quality Manager/Techni elsie ID = [id number] for OG MARK, SANDHYA HEMODIALYSIS [id number] 19:04:56Puneet Palacios RN 11/15/2020 7:06 PMTx. Completed blood returned with 3ooml ns,tolerated tx,no prolong bleeding,v/s stable, no distress,uf net 3kg, report given to his primary nurse....[facility] [id number] 12:37:00 Test Item Value Reference Range Interpretation Comments POC-GLUCOSE METER 173 mg/dL 70-110 H : TESTED A T [facility] 6720 (BEAKER) (test code = [facility], 1538) [address]360[address]: Quality Manager/Techni elsie ID = [id number] for RICARDO COOK Hepatitis B surface [id number] 11:33:00 Test Item Value Reference Range Interpretation Comments HBsAg Screen (test code Nonreactive Nonreactive = 5195-3) HARVEY (test code = HARVEY) Specimen is considered negative for HBsAg. Lab Interpretation (test Normal code = 56502-4) [facility] SUR[facility] [id number] 11:33:00 Test Item Value Reference Range Interpretation Comments HEPATITIS B SURFACE ANTIGEN (2) Nonreactive Nonreactive (BEAKER) (test code = 2585) Specimen is considered negative for HBsAg.HEPATITIS B SURFACE [id number] 11:33:00 Test Item Value Reference Range Interpretation Comments HEPATITIS B SURFACE ANTIBODY 248.1 mIU/mL <8.0 H (BEAKER) (test code = 647) Quality Manager ID - DBHEPATITIS B CORE ANTIBODY, [id number] 11:33:00 Test Item Value Reference Range Interpretation Comments HEPATITIS B CORE TOTAL ANTIBODY Nonreactive Nonreactive (BEAKER) (test code = 497) Quality Manager ID - DBHemoglobin [id number] 11:28:00 Test Item Value Reference Range Interpretation Comments Hemoglobin A1C (test code = 4548-4) 6.1 % 4.3-6.1 Lab Interpretation (test code = Normal 92592-9) [facility]HEMO[facility] [id number] 11:28:00 Test Item Value Reference Range Interpretation Comments HEMOGLOBIN A1C (BEAKER) (test code = 6.1 % 4.3-6.1 368) Iron, TIBC, % sat. (without ferritin)2020-11-15 11:11:00 Test Item Value Reference Range Interpretation Comments Iron (test code = 2498-4) 40.0 ug/dL 40-160 TIBC (test code = 2500-7) 166 ug/dL 250-450 L Iron % Saturation (test code 24 % 20-55 = 2502-3) HARVEY (test code = HARVEY) Quality Manager ID - DB Lab Interpretation (test Abnormal code = 87244-4) [facility], [facility], % SAT. (WITHOUT FERRITIN)2020-11-15 11:11:00 Test Item Value Reference Range Interpretation Comments IRON (BEAKER) (test code = 547) 40.0 ug/dL 40.0-160.0 TOTAL IRON BINDING CAPACITY 166 ug/dL 250-450 L (BEAKER) (test code = 769) IRON % SATURATION (2) (BEAKER) 24 % 20-55 (test code = 2590) Quality Manager ID - DBPOCT-GLUCOSE [id number] 08:18:00 Test Item Value Reference Range Interpretation Comments POC-GLUCOSE METER 204 mg/dL 70-110 H : Notified RN/MD: (ISAACAKER) (test code = TESTED AT [facility] 6720 1538) [facility]ILEE [facility], [address]: Quality Manager/Techni elsie ID = [id number] for AN RICARDO DAUGHERTY BASIC METABOLIC [id number] 07:13:00 Test Item Value Reference Range Interpretation Comments SODIUM (BEAKER) 131 meq/L 136-145 L (test code = 381) POTASSIUM (BEAKER) 4.9 meq/L 3.5-5.1 (test code = 379) CHLORIDE (BEAKER) 96 meq/L 98-107 L (test code = 382) CO2 (BEAKER) (test 17 meq/L 22-29 L code = 355) BLOOD UREA NITROGEN 89 mg/dL 7-21 H (BEAKER) (test code = 354) CREATININE (BEAKER) 4.85 mg/dL 0.57-1.25 H (test code = 358) GLUCOSE RANDOM 245 mg/dL 70-105 H (BEAKER) (test code = 652) CALCIUM (BEAKER) 8.0 mg/dL 8.4-10.2 L (test code = 697) EGFR (BEAKER) (test 12 mL/min/1.73 ESTIMA NOVA GFR IS code = 1092) sq m NOT ACCURATE CREATININE CLEARANCE IN PREDICTING GLOMERULAR FILTRATION RATE . ESTIMATED GFR I S NOT APPLICABLE FOR DIALYSIS PATIEN TS. Quality Manager ID - [id number] 07:11:00 Test Item Value Reference Range Interpretation Comments MAGNESIUM (BEAKER) (test code = 2.1 mg/dL 1.6-2.6 627) Quality Manager ID - DBHEPATIC FUNCTION [id number] 07:11:00 Test Item Value Reference Range Interpretation Comments TOTAL PROTEIN (BEAKER) (test code = 7.1 gm/dL 6.0-8.3 770) ALBUMIN (BEAKER) (test code = 1145) 3.5 g/dL 3.5-5.0 BILIRUBIN TOTAL (BEAKER) (test code 1.0 mg/dL 0.2-1.2 = 377) BILIRUBIN DIRECT (BEAKER) (test 0.6 mg/dL 0.1-0.5 H code = 706) ALKALINE PHOSPHATASE (BEAKER) (test 126 U/L 40-150 code = 346) AST (SGOT) (BEAKER) (test code = 18 U/L 5-34 353) ALT (SGPT) (BEAKER) (test code = 15 U/L 6-55 347) Quality Manager ID - DBHepatitis C [id number] 06:59:00 Test Item Value Reference Range Interpretation Comments Hepatitis C Ab (test code = Nonreactive Nonreactive 97221-6) HARVEY (test code = HARVEY) Quality Manager ID - DB Lab Interpretation (test Normal code = 76698-6) [facility] CenterHEPAT[facility] C [id number] 06:59:00 Test Item Value Reference Range Interpretation Comments HEPATITIS C ANTIBODY (BEAKER) Nonreactive Nonreactive (test code = 367) Quality Manager ID - DBCBC W/PLT COUNT & AUTO [id number] 06:57:00 Test Item Value Reference Range Interpretation Comments WHITE BLOOD CELL COUNT (BEAKER) 9.0 K/ L 3.5-10.5 (test code = 775) RED BLOOD CELL COUNT (BEAKER) 3.11 M/ L 4.63-6.08 L (test code = 761) HEMOGLOBIN (BEAKER) (test code = 8.6 GM/DL 13.7-17.5 L 410) HEMATOCRIT (BEAKER) (test code = 28.1 % 40.1-51.0 L 411) MEAN CORPUSCULAR VOLUME (BEAKER) 90.4 fL 79.0-92.2 (test code = 753) MEAN CORPUSCULAR HEMOGLOBIN 27.7 pg 25.7-32.2 (BEAKER) (test code = 751) MEAN CORPUSCULAR HEMOGLOBIN CONC 30.6 GM/DL 32.3-36.5 L (BEAKER) (test code = 752) RED CELL DISTRIBUTION WIDTH 16.4 % 11.6-14.4 H (BEAKER) (test code = 412) PLATELET COUNT (BEAKER) (test 237 K/CU MM 150-450 code = 756) MEAN PLATELET VOLUME (BEAKER) 10.5 fL 9.4-12.4 (test code = 754) NUCLEATED RED BLOOD CELLS 0 /100 WBC 0-0 (BEAKER) (test code = 413) NEUTROPHILS RELATIVE PERCENT 85 % (BEAKER) (test code = 429) LYMPHOCYTES RELATIVE PERCENT 4 % (BEAKER) (test code = 430) MONOCYTES RELATIVE PERCENT 10 % (BEAKER) (test code = 431) EOSINOPHILS RELATIVE PERCENT 0 % (BEAKER) (test code = 432) BASOPHILS RELATIVE PERCENT 0 % (BEAKER) (test code = 437) NEUTROPHILS ABSOLUTE COUNT 7.63 K/ L 1.78-5.38 H (BEAKER) (test code = 670) LYMPHOCYTES ABSOLUTE COUNT 0.32 K/ L 1.32-3.57 L (BEAKER) (test code = 414) MONOCYTES ABSOLUTE COUNT (BEAKER) 0.89 K/ L 0.30-0.82 H (test code = 415) EOSINOPHILS ABSOLUTE COUNT 0.02 K/ L 0.04-0.54 L (BEAKER) (test code = 416) BASOPHILS ABSOLUTE COUNT (BEAKER) 0.01 K/ L 0.01-0.08 (test code = 417) IMMATURE GRANULOCYTES-RELATIVE 1 % 0-1 PERCENT (BEAKER) (test code = 2801) PROTHROMBIN [id number] 05:55:00 Test Item Value Reference Range Interpretation Comments PROTIME (BEAKER) (test code = 16.0 seconds 11.9-14.2 H 759) INR (BEAKER) (test code = 370) 1.32 <=5.90 Effective 04/04/2019: PT Reference Range ChangeNew: 11.9-14.2 Previous: 11.7- 14.7RECOMMENDED COUMADIN/WARFARIN INR THERAPY RANGESSTANDARD DOSE: 2.0-3.0 Includes: PROPHYLAXIS for venous thrombosis, systemic embolization; TREATMENT for venous thrombosis and/or pulmonary embolus.HIGH RISK: Target INR is2.5-3.5 for patients wiht mechanical heart valves.RAD, CHEST, 1 VIEW, NON [id number] 01:26:00Reason for exam:->Weight loss, new ascites, volume overloadShould this be performed at the bedside?->Yes [facility] 1955 Sex: MFINAL REPORT INDICATION: Weight loss, new ascites, volume overload COMPARISON: 05/26/2019 TECHNIQUE: Single frontal view of the chest. IMPRESSION: Lungs and pleura: There is central venous congestion with haziness suggestive of edema and small bilateral pleural effusions. Superimposed infection should be excluded clinically. No pneumothorax.Heart and mediastinum: Stable cardiomegaly. Unremarkable mediastinal contours.Osseous structures: No acute abnormality.Other: Stable right transjugular central venous catheter. 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 [facility] BASIC METABOLIC [id number] 13:42:00 Test Item Value Reference Range Interpretation [...] 8.2 mg/dL 8.0-10.5 N CA) CBC W/AUTO [id number] 13:28:00 Test Item Value Reference Range Interpretation [...] DIFF REQUIRED (test code NO = MDIFF) [id number] 11:56:00 Test Item Value Reference Range Interpretation Comments GLUBED (test code = 132 MG/DL 70-110 H Performe 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 [facility] Novel Coronavirus 2019 [id number] 20:44:00 Test Item Value Reference Range Interpretation Comments Novel Coronavirus 2019 Inhouse (test Negative Negative code = COVNONPUI) - XR CHEST 2 [id number] 10:48:00 FAX: Espinoza Santillan MD [phone] [place]: St: PRE Name: JANNTROY [facility] : 1955 Age/S: 64/M [address] [place] [address] Blvd Unit#: [id number] Loc: [place] [address] Phys: Espinoza Villagran MD Acct: [id number] Dis Date: Status: PRE [facility] PHONE #: [phone] Exam Date: 06/18/2020957 FAX #: [phone] Reason: PREOP- ESRD EXAMS: CPT CODE: [id number] XR CHEST 2 V 12475 CLINICAL HISTORY: PREOP- ESRD COMPARISON: March 22, [...] and signed by:Panda Puente M.D. CC: Espinoza Villagran MD Technologist: RT Paolo(R) Trnwylenore Date/Time/By: 06/18/2020 (7595) : By: MansiYOS Orig Print D/T: S: 06/18/2020 (6482) PAGE 1 Signed ReportBASIC METABOLIC [id number] 09:12:00 Test Item Value Reference Range Interpretation [...] = 8.0 mg/dL 8.0-10.5 N CA) PROTHROMBIN [id number] 09:06:00 Test Item Value Reference Range Interpretation [...] o prevent recurre nt infarct). THROMBOPLASTIN TIME [id number] 09:06:00 Test Item Value Reference Range Interpretation Comments THROMBOPLASTIN TIME PARTIAL (test Seconds 25.0-39.5 code = PTT) PROTHROMBIN [id number] 09:06:00 Test Item Value Reference Range Interpretation [...] o prevent recurre nt infarct). THROMBOPLASTIN TIME [id number] 09:06:00 Test Item Value Reference Range Interpretation Comments THROMBOPLASTIN TIME 37.2 Seconds 25.0-39.5 N Ther apeutic PARTIAL (test code = Range: 50.4 - 88.3 PTT) Seconds Effective 02/20/2019 CBC W/AUTO [id number] 08:58:00 Test Item Value Reference Range Interpretation [...] REQUIRED (test code NO = MDIFF) URINE [id number] 14:16:00 Test Item Value Reference Range Interpretation Comments CULTURE (BEAKER) (test ESCHERICHIA COLI A 4 0-49,000 col/mL [...] S Sulfamethoxazole (test code = 47) CULTURE ([facility]) (test A 80-89 ,000 col/mL code = 1095) Ekaterina albican s POCT-GLUCOSE [id number] 17:07:00 Test Item Value Reference Range Interpretation Comments POC-GLUCOSE METER 168 mg/dL 70-110 H TESTED AT [place] [address] ([facility]) (test code = [facility] 1538) [address] POCT-GLUCOSE [id number] 13:49:00 Test Item Value Reference Range Interpretation Comments POC-GLUCOSE METER 172 mg/dL 70-110 H TESTED AT [place] [address] ([facility]) (test code = [facility] 1538) [address] BASIC METABOLIC [id number] 09:18:00 Test Item Value Reference Range Interpretation [...] 697) EGFR (BEAKER) (test 15 mL/min/1.73 ESTIMA NOVA GFR IS code = 1092) sq m [...] H (BEAKER) (test code = 413) POCT-GLUCOSE [id number] 21:43:00 Test Item Value Reference Range Interpretation Comments POC-GLUCOSE METER 175 mg/dL 70-110 H TESTED AT [facility] 67 ([facility]) (test code = [facility] 1538) [address] POCT-GLUCOSE [id number] 12:42:00 Test Item Value Reference Range Interpretation Comments POC-GLUCOSE METER 113 mg/dL 70-110 H TESTED AT [place] [id number] (BEAKER) (test code = [place] 1538) [address] BASIC METABOLIC [id number] 08:22:00 Test Item Value Reference Range Interpretation [...] 697) EGFR (BEAKER) (test 13 mL/min/1.73 ESTIMA NOVA GFR IS code = 1092) sq m [...] 40.1-51.0 L 411) MEAN CORPUSCULAR VOLUME (BEAKER) 95.6 fL 79.0-92.2 H (test code = 753) MEAN CORPUSCULAR HEMOGLOBIN 28.3 pg 25.7-32.2 (BEAKER) (test code = 751) MEAN CORPUSCULAR HEMOGLOBIN CONC 29.6 GM/DL 32.3-36.5 L (BEAKER) (test code = 752) RED CELL DISTRIBUTION WIDTH 17.8 % 11.6-14.4 H (BEAKER) (test code = 412) PLATELET COUNT (BEAKER) (test 306 K/CU MM 150-450 code = 756) MEAN PLATELET VOLUME (BEAKER) 9.9 fL 9.4-12.4 (test code = 754) NUCLEATED RED BLOOD CELLS 0 /100 WBC 0-0 (BEAKER) (test code = 413) POCT-GLUCOSE [id number] 21:40:00 Test Item Value Reference Range Interpretation Comments POC-GLUCOSE METER 159 mg/dL 70-110 H TESTED AT [place] [address] ([facility]) (test code = [facility] 1538) [address] POCT-GLUCOSE [id number] 17:24:00 Test Item Value Reference Range Interpretation Comments POC-GLUCOSE METER 203 mg/dL 70-110 H TESTED AT [place] [address] ([facility]) (test code = [facility] 1538) [address] POCT-GLUCOSE [id number] 13:17:00 Test Item Value Reference Range Interpretation Comments POC-GLUCOSE METER 201 mg/dL 70-110 H TESTED AT [place] [address] ([facility]) (test code = [facility] 1538) [address] POCT-GLUCOSE [id number] 08:11:00 Test Item Value Reference Range Interpretation Comments POC-GLUCOSE METER 199 mg/dL 70-110 H TESTED AT [place] [address] ([facility]) (test code = [facility] 1538) [address] BASIC METABOLIC [id number] 07:40:00 Test Item Value Reference Range Interpretation [...] 697) EGFR (BEAKER) (test 17 mL/min/1.73 ESTIMA NOVA GFR IS code = 1092) sq m [...] 0-0 (BEAKER) (test code = 413) POCT-GLUCOSE [id number] 23:55:00 Test Item Value Reference Range Interpretation Comments POC-GLUCOSE METER 198 mg/dL 70-110 H TESTED AT [facility] 67 ([facility]) (test code = [place] 1538) [address] POCT-GLUCOSE [id number] 22:53:00 Test Item Value Reference Range Interpretation Comments POC-GLUCOSE METER 205 mg/dL 70-110 H TESTED AT [facility] 6720 ([facility]) (test code = [place] 1538) [address] POCT-GLUCOSE [id number] 18:28:00 Test Item Value Reference Range Interpretation Comments POC-GLUCOSE METER 252 mg/dL 70-110 H TESTED AT [facility] 6720 (BEAKER) (test code = [place] 1538) [address] POCT-GLUCOSE [id number] 13:01:00 Test Item Value Reference Range Interpretation Comments POC-GLUCOSE METER 118 mg/dL 70-110 H TESTED AT [facility] 6720 (BEAKER) (test code = [facility] [place] 1538) [address] BASIC METABOLIC [id number] 07:03:00 Test Item Value Reference Range Interpretation [...] 697) EGFR (BEAKER) (test 14 mL/min/1.73 ESTIMA NOVA GFR IS code = 1092) sq m NOT ACCURATE CREATININE CLEARANCE IN PREDICTING GLOMERULAR FILTRATION RATE . ESTIMATED GFR I S NOT APPLICABLE FOR DIALYSIS PATIEN TS. POCT-GLUCOSE [id number] 21:53:00 Test Item Value Reference Range Interpretation Comments POC-GLUCOSE METER 189 mg/dL 70-110 H TESTED AT [facility] 6720 (BEAKER) (test code = [facility] Melodie [place] 1538) [address] POCT-GLUCOSE [id number] 18:21:00 Test Item Value Reference Range Interpretation Comments POC-GLUCOSE METER 207 mg/dL 70-110 H TESTED AT [facility] 6720 (BEAKER) (test code = [facility] Melodie [place] 1538) [address] POCT-GLUCOSE [id number] 12:36:00 Test Item Value Reference Range Interpretation Comments POC-GLUCOSE METER 95 mg/dL 70-110 TESTED AT [facility] 6720 (BEAKER) (test code = [place] [address] 1538) BASIC METABOLIC [id number] 09:00:00 Test Item Value Reference Range Interpretation [...] 697) EGFR (BEAKER) (test 10 mL/min/1.73 ESTIMA NOVA GFR IS code = 1092) sq m [...] code = 412) PLATELET COUNT (BEAKER) (test 355 K/CU MM 150-450 code = 756) MEAN PLATELET VOLUME (BEAKER) 9.9 fL 9.4-12.4 (test code = 754) NUCLEATED RED BLOOD CELLS 1 /100 WBC 0-0 H ([facility]) (test code = 413) POCT-GLUCOSE [id number] 21:13:00 Test Item Value Reference Range Interpretation Comments POC-GLUCOSE METER 125 mg/dL 70-110 H TESTED AT [place] [address] ([facility]) (test code = [place] [place] [address]08) [address] POCT-GLUCOSE [id number] 13:58:00 Test Item Value Reference Range Interpretation Comments POC-GLUCOSE METER 150 mg/dL 70-110 H TESTED AT [place] [address] ([facility]) (test code = [facility] [place] [address]1608) [address] POCT-GLUCOSE [id number] 09:25:00 Test Item Value Reference Range Interpretation Comments POC-GLUCOSE METER 67 mg/dL 70-110 L Notified Melodie Davila MD/[facility]ED AT [facility] [facility]) (test code = [place] [id number]) [facility] 7703 0 POCT-GLUCOSE [id number] 09:25:00 Test Item Value Reference Range Interpretation Comments POC-GLUCOSE METER 65 mg/dL 70-110 L Notified Melodie Davila MD/TESTED AT ([facility]) (test code = [place] [id number]) [facility] 7703 0 BASIC METABOLIC [id number] 07:54:00 Test Item Value Reference Range Interpretation [...] 697) EGFR (BEAKER) (test 13 mL/min/1.73 ESTIMA NOVA GFR IS code = 1092) sq m [...] 0-0 (BEAKER) (test code = 413) POCT-GLUCOSE [id number] 21:31:00 Test Item Value Reference Range Interpretation Comments POC-GLUCOSE METER 119 mg/dL 70-110 H TESTED AT [place] [id number] ([facility]) (test code = [place] 1538) [address] POCT-GLUCOSE [id number] 17:15:00 Test Item Value Reference Range Interpretation Comments POC-GLUCOSE METER 117 mg/dL 70-110 H TESTED AT [facility] 6720 ([facility]) (test code = [facility] 1538) [address] POCT-GLUCOSE [id number] 12:55:00 Test Item Value Reference Range Interpretation Comments POC-GLUCOSE METER 76 mg/dL 70-110 TESTED AT [place] [address] ([facility]) (test code = [facility] [address] 1538) BASIC METABOLIC [id number] 08:15:00 Test Item Value Reference Range Interpretation [...] 697) EGFR (BEAKER) (test 15 mL/min/1.73 ESTIMA NOVA GFR IS code = 1092) sq m NOT ACCURATE CREATININE CLEARANCE IN PREDICTING GLOMERULAR FILTRATION RATE . ESTIMATED GFR I S NOT APPLICABLE FOR DIALYSIS PATIEN TS. POCT-GLUCOSE [id number] 08:11:00 Test Item Value Reference Range Interpretation Comments POC-GLUCOSE METER 101 mg/dL 70-110 TESTED AT [place] [address] ([facility]) (test code = [facility] 1538) 484[address] CBC (HEMOGRAM ONLY)2019-06-09 06:58:00 Test Item Value [...] 753) MEAN CORPUSCULAR HEMOGLOBIN 28.6 pg 25.7-32.2 (AKER) (test code = 751) MEAN CORPUSCULAR HEMOGLOBIN CONC 29.3 GM/DL 32.3-36.5 L ([facility]) (test code = 752) RED CELL DISTRIBUTION WIDTH 17.9 % 11.6-14.4 H ([facility]) (test code = 412) PLATELET COUNT ([facility]) (test 344 K/CU MM 150-450 code = 756) MEAN PLATELET VOLUME ([facility]) 10.1 fL 9.4-12.4 (test code = 754) NUCLEATED RED BLOOD CELLS 0 /100 WBC 0-0 ([facility]) (test code = 413) POCT-GLUCOSE [id number] 20:40:00 Test Item Value Reference Range Interpretation Comments POC-GLUCOSE METER 116 mg/dL 70-110 H TESTED AT [place] [address] ([facility]) (test code = [place] [facility] 1538) [address] POCT-GLUCOSE [id number] 17:32:00 Test Item Value Reference Range Interpretation Comments POC-GLUCOSE METER 122 mg/dL 70-110 H TESTED AT [place] [address] ([facility]) (test code = [place] [facility] 1538) [address] POCT-GLUCOSE [id number] 17:14:00 Test Item Value Reference Range Interpretation Comments POC-GLUCOSE METER 112 mg/dL 70-110 H TESTED AT [place] [address] ([facility]) (test code = [place] [facility] 1538) 15597 POCT-GLUCOSE [id number] 16:56:00 Test Item Value Reference Range Interpretation Comments POC-GLUCOSE METER 219 mg/dL 70-110 H TESTED AT [place] [address] ([facility]) (test code = [place] 1538) [address] POCT-GLUCOSE [id number] 09:50:00 Test Item Value Reference Range Interpretation Comments POC-GLUCOSE METER 117 mg/dL 70-110 H TESTED AT [place] [address] ([facility]) (test code = [place] 1538) [address] BASIC METABOLIC [id number] 07:14:00 Test Item Value Reference Range Interpretation [...] 697) EGFR (BEAKER) (test 11 mL/min/1.73 ESTIMA NOVA GFR IS code = 1092) sq m [...] code = 412) PLATELET COUNT (BEAKER) (test 336 K/CU MM 150-450 code = 756) MEAN PLATELET VOLUME (BEAKER) 10.2 fL 9.4-12.4 (test code = 754) NUCLEATED RED BLOOD CELLS 0 /100 WBC 0-0 (BEAKER) (test code = 413) POCT-GLUCOSE [id number] 21:59:00 Test Item Value Reference Range Interpretation Comments POC-GLUCOSE METER 78 mg/dL 70-110 TESTED AT [place] [address] (BEAKER) (test code = [place] [facility] [address] 1538) POCT-GLUCOSE [id number] 17:57:00 Test Item Value Reference Range Interpretation Comments POC-GLUCOSE METER 113 mg/dL 70-110 H TESTED AT [place] [address] (BEAKER) (test code = [facility] 1538) 79365 POCT-GLUCOSE [id number] 14:30:00 Test Item Value Reference Range Interpretation Comments POC-GLUCOSE METER 227 mg/dL 70-110 H TESTED AT [place] [address] ([facility]) (test code = [facility] 1538) 9[address] BASIC METABOLIC [id number] 08:20:00 Test Item Value Reference Range Interpretation [...] 697) EGFR (BEAKER) (test 13 mL/min/1.73 ESTIMA NOVA GFR IS code = 1092) sq m NOT ACCURATE CREATININE CLEARANCE IN PREDICTING GLOMERULAR FILTRATION RATE . ESTIMATED GFR I S NOT APPLICABLE FOR DIALYSIS PATIEN TS. POCT-GLUCOSE [id number] 08:01:00 Test Item Value Reference Range Interpretation Comments POC-GLUCOSE METER 139 mg/dL 70-110 H TESTED AT [place] [address] (BEAKER) (test code = [place] [facility] 1538) 706[address] CBC (HEMOGRAM ONLY)2019-06-07 07:07:00 Test Item Value [...] 0-0 (BEAKER) (test code = 413) POCT-GLUCOSE [id number] 22:52:00 Test Item Value Reference Range Interpretation Comments POC-GLUCOSE METER 271 mg/dL 70-110 H TESTED AT [place] [address] ([facility]) (test code = [facility] Melodie [facility] 1538) 0[address] POCT-GLUCOSE [id number] 17:23:00 Test Item Value Reference Range Interpretation Comments POC-GLUCOSE METER 273 mg/dL 70-110 H TESTED AT [place] [address] ([facility]) (test code = [facility] 1538) 22319 POCT-GLUCOSE [id number] 12:33:00 Test Item Value Reference Range Interpretation Comments POC-GLUCOSE METER 107 mg/dL 70-110 TESTED AT [place] [address] ([facility]) (test code = [facility] 9664) 220[address] BASIC METABOLIC [id number] 08:59:00 Test Item Value Reference Range Interpretation [...] 697) EGFR (BEAKER) (test 11 mL/min/1.73 ESTIMA NOVA GFR IS code = 1092) sq m [...] 0-0 (AKER) (test code = 413) POCT-GLUCOSE [id number] 21:40:00 Test Item Value Reference Range Interpretation Comments POC-GLUCOSE METER 137 mg/dL 70-110 H TESTED AT [place] [address] ([facility]) (test code = [facility] 1538) 09476 POCT-GLUCOSE [id number] 18:27:00 Test Item Value Reference Range Interpretation Comments POC-GLUCOSE METER 219 mg/dL 70-110 H TESTED AT [place] [address] ([facility]) (test code = [facility] 1538) 28374 POCT-GLUCOSE [id number] 13:10:00 Test Item Value Reference Range Interpretation Comments POC-GLUCOSE METER 168 mg/dL 70-110 H TESTED AT [place] [address] ([facility]) (test code = [facility] 1538) 9[address] POCT-GLUCOSE [id number] 10:22:00 Test Item Value Reference Range Interpretation Comments POC-GLUCOSE METER 161 mg/dL 70-110 H TESTED AT [place] [address] ([facility]) (test code = [facility] 1538) 00[address] BASIC METABOLIC [id number] 04:41:00 Test Item Value Reference Range Interpretation [...] 697) EGFR (BEAKER) (test 14 mL/min/1.73 ESTIMA NOVA GFR IS code = 1092) sq m NOT ACCURATE CREATININE CLEARANCE IN PREDICTING GLOMERULAR FILTRATION RATE . ESTIMATED GFR I S NOT APPLICABLE FOR DIALYSIS PATIEN TS. [id number] 04:40:00 Test Item Value Reference Range Interpretation [...] 0-0 (BEAKER) (test code = 413) POCT-GLUCOSE [id number] 21:42:00 Test Item Value Reference Range Interpretation Comments POC-GLUCOSE METER 176 mg/dL 70-110 H TESTED AT [facility] 6720 ([facility]) (test code = [facility] 1538) [address] POCT-GLUCOSE [id number] 14:38:00 Test Item Value Reference Range Interpretation Comments POC-GLUCOSE METER 179 mg/dL 70-110 H TESTED AT [facility] 6720 (BEAKER) (test code = [place] 1538) [address] POCT-GLUCOSE [id number] 09:07:00 Test Item Value Reference Range Interpretation Comments POC-GLUCOSE METER 155 mg/dL 70-110 H TESTED AT [facility] 6720 (BEAKER) (test code = [place] [facility] 1538) [address] BASIC METABOLIC [id number] 07:49:00 Test Item Value Reference Range Interpretation [...] 697) EGFR (BEAKER) (test 10 mL/min/1.73 ESTIMA NOVA GFR IS code = 1092) sq m NOT ACCURATE CREATININE CLEARANCE IN PREDICTING GLOMERULAR FILTRATION RATE . ESTIMATED GFR I S NOT APPLICABLE FOR DIALYSIS PATIEN TS. [id number] 07:44:00 Test Item Value Reference Range Interpretation [...] 0-0 (AKER) (test code = 413) POCT-GLUCOSE [id number] 22:34:00 Test Item Value Reference Range Interpretation Comments POC-GLUCOSE METER 246 mg/dL 70-110 H TESTED AT [place] [address] ([facility]) (test code = [place] 1538) [address] POCT-GLUCOSE [id number] 18:15:00 Test Item Value Reference Range Interpretation Comments POC-GLUCOSE METER 201 mg/dL 70-110 H TESTED AT [place] [address] ([facility]) (test code = [place] [facility] 1538) 85094 POCT-GLUCOSE [id number] 13:12:00 Test Item Value Reference Range Interpretation Comments POC-GLUCOSE METER 211 mg/dL 70-110 H TESTED AT [place] [address] ([facility]) (test code = [place] [facility] 1538) 30509 POCT-GLUCOSE [id number] 08:17:00 Test Item Value Reference Range Interpretation Comments POC-GLUCOSE METER 204 mg/dL 70-110 H TESTED AT [place] [address] ([facility]) (test code = [place] 1538) [address] BASIC METABOLIC [id number] 08:05:00 Test Item Value Reference Range Interpretation [...] 697) EGFR (BEAKER) (test 12 mL/min/1.73 ESTIMA NOVA GFR IS code = 1092) sq m NOT ACCURATE CREATININE CLEARANCE IN PREDICTING GLOMERULAR FILTRATION RATE . ESTIMATED GFR I S NOT APPLICABLE FOR DIALYSIS PATIEN TS. [id number] 08:04:00 Test Item Value Reference Range Interpretation [...] 40.1-51.0 L 411) MEAN CORPUSCULAR VOLUME (BEAKER) 94.5 fL 79.0-92.2 H (test code = 753) MEAN CORPUSCULAR HEMOGLOBIN 28.0 pg 25.7-32.2 (BEAKER) (test code = 751) MEAN CORPUSCULAR HEMOGLOBIN CONC 29.6 GM/DL 32.3-36.5 L (BEAKER) (test code = 752) RED CELL DISTRIBUTION WIDTH 16.8 % 11.6-14.4 H (BEAKER) (test code = 412) PLATELET COUNT (BEAKER) (test 298 K/CU MM 150-450 code = 756) MEAN PLATELET VOLUME (BEAKER) 9.9 fL 9.4-12.4 (test code = 754) NUCLEATED RED BLOOD CELLS 0 /100 WBC 0-0 (BEAKER) (test code = 413) POCT-GLUCOSE [id number] 22:17:00 Test Item Value Reference Range Interpretation Comments POC-GLUCOSE METER 154 mg/dL 70-110 H TESTED AT [place] [address] ([facility]) (test code = [place] [facility] 1538) [address]40 POCT-GLUCOSE [id number] 22:14:00 Test Item Value Reference Range Interpretation Comments POC-GLUCOSE METER 172 mg/dL 70-110 H TESTED AT [place] [address] ([facility]) (test code = [place] [facility] 1538) 06867 POCT-GLUCOSE [id number] 17:34:00 Test Item Value Reference Range Interpretation Comments POC-GLUCOSE METER 187 mg/dL 70-110 H TESTED AT [place] [address] ([facility]) (test code = [place] [facility] 1538) 17897 POCT-GLUCOSE [id number] 12:28:00 Test Item Value Reference Range Interpretation Comments POC-GLUCOSE METER 192 mg/dL 70-110 H TESTED AT [place] [address] ([facility]) (test code = [place] [facility] 1538) 67100 POCT-GLUCOSE [id number] 07:43:00 Test Item Value Reference Range Interpretation Comments POC-GLUCOSE METER 132 mg/dL 70-110 H TESTED AT [place] [address] ([facility]) (test code = [place] [facility] 1538) 93653 POCT-GLUCOSE [id number] 21:47:00 Test Item Value Reference Range Interpretation Comments POC-GLUCOSE METER 255 mg/dL 70-110 H TESTED AT [place] [address] ([facility]) (test code = [place] [facility] 1538) 83527 POCT-GLUCOSE [id number] 11:45:00 Test Item Value Reference Range Interpretation Comments POC-GLUCOSE METER 159 mg/dL 70-110 H TESTED AT [place] [address] ([facility]) (test code = [facility] Melodie [facility] 1538) [address] [id number] 11:17:00 Test Item Value Reference Range Interpretation Comments FERRITIN ([facility]) (test code = 361) 572 ng/mL 5-275 H IRON, TIBC, % SAT. (WITHOUT FERRITIN)2019-06-01 10:57:00 Test Item Value Reference Range Interpretation Comments IRON (BEAKER) (test code = 547) 15.0 ug/dL 40.0-160.0 L TOTAL IRON BINDING CAPACITY 169 ug/dL 250-450 L (BEAKER) (test code = 769) IRON % SATURATION (2) (BEAKER) 9 % 20-55 L (test code = 2590) POCT-GLUCOSE [id number] 08:44:00 Test Item Value Reference Range Interpretation Comments POC-GLUCOSE METER 170 mg/dL 70-110 H TESTED AT [facility] 6720 (BEAKER) (test code = [place] 1538) [address] BASIC METABOLIC [id number] 04:42:00 Test Item Value Reference Range Interpretation [...] 697) EGFR (BEAKER) (test 13 mL/min/1.73 ESTIMA NOVA GFR IS code = 1092) sq m NOT ACCURATE CREATININE CLEARANCE IN PREDICTING GLOMERULAR FILTRATION RATE . ESTIMATED GFR I S NOT APPLICABLE FOR DIALYSIS PATIEN TS. [id number] 03:47:00 Test Item Value Reference Range Interpretation Comments MAGNESIUM (BEAKER) (test code = 2.1 mg/dL 1.6-2.6 627) CBC W/PLT COUNT & AUTO [id number] 03:36:00 Test Item Value Reference Range Interpretation [...] ABSOLUTE COUNT 6.45 K/ L 1.78-5.38 H (BEAKER) (test code = 670) LYMPHOCYTES ABSOLUTE COUNT 0.84 K/ L 1.32-3.57 L (BEAKER) (test code = 414) MONOCYTES ABSOLUTE COUNT (BEAKER) 1.39 K/ L 0.30-0.82 H (test code = 415) EOSINOPHILS ABSOLUTE COUNT 0.05 K/ L 0.04-0.54 (BEAKER) (test code = 416) BASOPHILS ABSOLUTE COUNT (BEAKER) 0.01 K/ L 0.01-0.08 (test code = 417) IMMATURE GRANULOCYTES-RELATIVE 1 % 0-1 PERCENT (BEAKER) (test code = 2801) POCT-GLUCOSE [id number] 22:05:00 Test Item Value Reference Range Interpretation Comments POC-GLUCOSE METER 91 mg/dL 70-110 TESTED AT [place] [address] ([facility]) (test code = [place] [facility] [address] 1538) POCT-GLUCOSE [id number] 18:37:00 Test Item Value Reference Range Interpretation Comments POC-GLUCOSE METER 102 mg/dL 70-110 TESTED AT [place] [address] ([facility]) (test code = [place] [facility] 1538) 73330 POCT-GLUCOSE [id number] 12:26:00 Test Item Value Reference Range Interpretation Comments POC-GLUCOSE METER 113 mg/dL 70-110 H TESTED AT [place] [address] ([facility]) (test code = [place] [facility] 1538) 23200 POCT-GLUCOSE [id number] 08:07:00 Test Item Value Reference Range Interpretation Comments POC-GLUCOSE METER 73 mg/dL 70-110 TESTED AT [place] [address] ([facility]) (test code = [place] [facility] [address] 1538) BLOOD [id number] 08:01:00 Test Item Value Reference Range Interpretation Comments CULTURE (BEAKER) (test No growth in 5 days code = 1095) BLOOD [id number] 08:01:00 Test Item Value Reference Range Interpretation Comments CULTURE (BEAKER) (test No growth in 5 days code = 1095) CBC W/PLT COUNT & AUTO [id number] 06:59:00 Test Item Value Reference Range Interpretation Comments WHITE BLOOD CELL COUNT (BEAKER) 8.3 K/ L 3.5-10.5 (test code = [...] (BEAKER) (test code = 2801) BASIC METABOLIC [id number] 06:27:00 Test Item Value Reference Range Interpretation [...] 697) EGFR (BEAKER) (test 22 mL/min/1.73 ESTIMA NOVA GFR IS code = 1092) sq m NOT ACCURATE CREATININE CLEARANCE IN PREDICTING GLOMERULAR FILTRATION RATE . ESTIMATED GFR I S NOT APPLICABLE FOR DIALYSIS PATIEN TS. [id number] 06:18:00 Test Item Value Reference Range Interpretation Comments MAGNESIUM (BEAKER) 1.6 mg/dL 1.6-2.6 Specimen slightly (test code = 627) hemolyzed URINALYSIS W/ REFLEX URINE [id number] 23:41:00 Test Item Value Reference Range Interpretation [...] code = 516) SOURCE(BEAKER) (test code = 7295) POCT-GLUCOSE [id number] 21:42:00 Test Item Value Reference Range Interpretation Comments POC-GLUCOSE METER 139 mg/dL 70-110 H TESTED AT [facility] 6720 (BEAKER) (test code = [place] 1531) [address] POCT-GLUCOSE [id number] 20:39:00 Test Item Value Reference Range Interpretation Comments POC-GLUCOSE METER 65 mg/dL 70-110 L TESTED AT [facility] 6720 (BEAKER) (test code = [place] [facility] [address] 1538) POCT-GLUCOSE [id number] 17:54:00 Test Item Value Reference Range Interpretation Comments POC-GLUCOSE METER 78 mg/dL 70-110 TESTED AT [place] [address] (BEAKER) (test code = [place] [facility] [address] 1538) CBC W/PLT COUNT & AUTO [id number] 10:44:00 Test Item Value Reference Range Interpretation Comments WHITE BLOOD CELL COUNT (BEAKER) 10.1 K/ L 3.5-10.5 (test code = 775) RED BLOOD CELL COUNT (BEAKER) 2.54 M/ L 4.63-6.08 L (test code = 761) HEMOGLOBIN (BEAKER) (test code = 7.3 GM/DL 13.7-17.5 L 410) HEMATOCRIT (BEAKER) (test code = 23.6 % 40.1-51.0 L 411) MEAN CORPUSCULAR VOLUME (BEAKER) 92.9 fL 79.0-92.2 H (test code = [...] 3438) Received comment: User comments: Slide comments:POCT-GLUCOSE [id number] 07:50:00 Test Item Value Reference Range Interpretation Comments POC-GLUCOSE METER 70 mg/dL 70-110 TESTED AT [facility] 6720 (BEAKER) (test code = [place] [facility] [address] 1538) BASIC METABOLIC [id number] 06:36:00 Test Item Value Reference Range Interpretation [...] 697) EGFR (BEAKER) (test 14 mL/min/1.73 ESTIMA NOVA GFR IS code = 1092) sq m NOT ACCURATE CREATININE CLEARANCE IN PREDICTING GLOMERULAR FILTRATION RATE . ESTIMATED GFR I S NOT APPLICABLE FOR DIALYSIS PATIEN TS. [id number] 06:33:00 Test Item Value Reference Range Interpretation Comments MAGNESIUM (BEAKER) (test code = 2.2 mg/dL 1.6-2.6 627) POCT-GLUCOSE [id number] 22:28:00 Test Item Value Reference Range Interpretation Comments POC-GLUCOSE METER 120 mg/dL 70-110 H TESTED AT [place] [address] ([facility]) (test code = [facility] 1538) 04461 POCT-GLUCOSE [id number] 19:33:00 Test Item Value Reference Range Interpretation Comments POC-GLUCOSE METER 166 mg/dL 70-110 H TESTED AT [place] [address] ([facility]) (test code = [facility] 1538) 10467 POCT-GLUCOSE [id number] 13:30:00 Test Item Value Reference Range Interpretation Comments POC-GLUCOSE METER 168 mg/dL 70-110 H TESTED AT [place] [address] ([facility]) (test code = [facility] 1538) 39972 POCT-GLUCOSE [id number] 07:37:00 Test Item Value Reference Range Interpretation Comments POC-GLUCOSE METER 117 mg/dL 70-110 H TESTED AT [place] [address] ([facility]) (test code = [facility] 1538) 73740 BASIC METABOLIC [id number] 06:57:00 Test Item Value Reference Range Interpretation [...] 697) EGFR (BEAKER) (test 19 mL/min/1.73 ESTIMA NOVA GFR IS code = 1092) sq m NOT ACCURATE CREATININE CLEARANCE IN PREDICTING GLOMERULAR FILTRATION RATE . ESTIMATED GFR I S NOT APPLICABLE FOR DIALYSIS PATIEN TS. [id number] 06:52:00 Test Item Value Reference Range Interpretation [...] code = 412) PLATELET COUNT (BEAKER) (test 180 K/CU MM 150-450 code = 756) MEAN PLATELET VOLUME (AKER) 10.6 fL 9.4-12.4 (test code = 754) NUCLEATED RED BLOOD CELLS 0 /100 WBC 0-0 ([facility]) (test code = 413) POCT-GLUCOSE [id number] 21:52:00 Test Item Value Reference Range Interpretation Comments POC-GLUCOSE METER 174 mg/dL 70-110 H TESTED AT [place] [address] ([facility]) (test code = [place] [facility] 1538) 53492 POCT-GLUCOSE [id number] 17:58:00 Test Item Value Reference Range Interpretation Comments POC-GLUCOSE METER 151 mg/dL 70-110 H TESTED AT [place] [address] ([facility]) (test code = [place] [facility] 1538) 52561 POCT-GLUCOSE [id number] 12:35:00 Test Item Value Reference Range Interpretation Comments POC-GLUCOSE METER 225 mg/dL 70-110 H TESTED AT [place] [address] ([facility]) (test code = [place] [facility] 1538) 18628 HEMOGLOBIN [id number] 08:34:00 Test Item Value Reference Range Interpretation Comments HEMOGLOBIN A1C ([facility]) (test code = 6.3 % 4.3-6.1 H 368) POCT-GLUCOSE [id number] 07:56:00 Test Item Value Reference Range Interpretation Comments POC-GLUCOSE METER 141 mg/dL 70-110 H TESTED AT [place] [address] ([facility]) (test code = [place] [facility] 1538) 13226 CBC (HEMOGRAM ONLY)2019-05-28 06:12:00 Test Item Value Reference Range Interpretation Comments WHITE BLOOD CELL COUNT (BEAKER) 11.7 K/ L 3.5-10.5 H (test code = 775) RED BLOOD CELL COUNT (BEAKER) 2.54 M/ L 4.63-6.08 L (test code = 761) HEMOGLOBIN (BEAKER) (test code = 7.3 GM/DL 13.7-17.5 L 410) HEMATOCRIT (AKER) (test code = 23.4 % 40.1-51.0 L [...] (BEAKER) (test code = 413) BASIC METABOLIC [id number] 06:02:00 Test Item Value Reference Range Interpretation [...] 697) EGFR (BEAKER) (test 14 mL/min/1.73 ESTIMA NOVA GFR IS code = 1092) sq m NOT ACCURATE CREATININE CLEARANCE IN PREDICTING GLOMERULAR FILTRATION RATE . ESTIMATED GFR I S NOT APPLICABLE FOR DIALYSIS PATIEN TS. POCT-GLUCOSE [id number] 22:24:00 Test Item Value Reference Range Interpretation Comments POC-GLUCOSE METER 171 mg/dL 70-110 H TESTED AT [facility] 67[address] (BEAKER) (test code = [place] 1538) [id number] HEPATITIS B [id number] 20:01:00 Test Item Value Reference Range Interpretation Comments HEPATITIS B CORE TOTAL ANTIBODY Nonreactive Nonreactive (BEAKER) (test code = 497) HEPATITIS B SURFACE ANTIBODY < mIU/mL <8.0 (BEAKER) (test code = 647) HEPATITIS B SURFACE ANTIGEN (2) Nonreactive Nonreactive (BEAKER) (test code = 2585) POCT-GLUCOSE [id number] 17:37:00 Test Item Value Reference Range Interpretation Comments POC-GLUCOSE METER 158 mg/dL 70-110 H TESTED AT [facility] [address] (BEAKER) (test code = [place] 1538) [id number] CBC (HEMOGRAM ONLY)2019-05-27 16:37:00 Test Item Value [...] (BEAKER) (test code = 413) BASIC METABOLIC [id number] 16:28:00 Test Item Value Reference Range Interpretation [...] 697) EGFR (BEAKER) (test 17 mL/min/1.73 ESTIMA NOVA GFR IS code = 1092) sq m NOT ACCURATE CREATININE CLEARANCE IN PREDICTING GLOMERULAR FILTRATION RATE . ESTIMATED GFR I S NOT APPLICABLE FOR DIALYSIS PATIEN TS. POCT-GLUCOSE [id number] 12:29:00 Test Item Value Reference Range Interpretation Comments POC-GLUCOSE METER 155 mg/dL 70-110 H TESTED AT [facility] [address] (BEAKER) (test code = [place] 1538) [id number] 09:20:00 Test Item Value Reference Range Interpretation Comments PHOSPHORUS (BEAKER) (test code = 3.4 mg/dL 2.3-4.7 604) [id number] 09:20:00 Test Item Value Reference Range Interpretation Comments MAGNESIUM (BEAKER) (test code = 2.0 mg/dL 1.6-2.6 627) PH, [id number] 08:49:00 Test Item Value Reference Range Interpretation Comments PH ARTERIAL (BEAKER) (test code = 383) 7.35 7.35-7.45 POCT-GLUCOSE [id number] 08:11:00 Test Item Value Reference Range Interpretation Comments POC-GLUCOSE METER 137 mg/dL 70-110 H TESTED AT [facility] 67[address] (BEAKER) (test code = [facility] [place] 1538) [id number] BASIC METABOLIC [id number] 03:25:00 Test Item Value Reference Range Interpretation [...] 697) EGFR (BEAKER) (test 15 mL/min/1.73 ESTIMA NOVA GFR IS code = 1092) sq m NOT ACCURATE CREATININE CLEARANCE IN PREDICTING GLOMERULAR FILTRATION RATE . ESTIMATED GFR I S NOT APPLICABLE FOR DIALYSIS PATIEN TS. CBC W/PLT COUNT & AUTO [id number] 03:11:00 Test Item Value Reference Range Interpretation [...] 0-1 H PERCENT (BEAKER) (test code = 2801) [id number] 02:48:00 Test Item Value Reference Range Interpretation Comments MAGNESIUM (BEAKER) 2.2 mg/dL 1.6-2.6 Specimen slightly (test code = 627) hemolyzed [id number] 02:48:00 Test Item Value Reference Range Interpretation Comments PHOSPHORUS (BEAKER) 3.9 mg/dL 2.3-4.7 Specimen slightly (test code = 604) hemolyzed PH, [id number] 02:08:00 Test Item Value Reference Range Interpretation Comments PH ARTERIAL (BEAKER) (test code = 383) 7.41 7.35-7.45 RAD, CHEST, 1 VIEW, NON [id number] 22:15:00Reason for exam:->line placementShould this be performed [...] Stable surgical changes.Additional findings: None. Signed: Marya Arredondo Verified Date/Time: 05/26/2019 22:15:38 BASI METABOLIC [id number] 17:25:00 Test Item Value Reference Range Interpretation [...] 697) EGFR (BEAKER) (test 13 mL/min/1.73 ESTIMA NOVA GFR IS code = 1092) sq m NOT ACCURATE CREATININE CLEARANCE IN PREDICTING GLOMERULAR FILTRATION RATE . ESTIMATED GFR I S NOT APPLICABLE FOR DIALYSIS PATIEN TS. POCT-GLUCOSE [id number] 17:09:00 Test Item Value Reference Range Interpretation Comments POC-GLUCOSE METER 233 mg/dL 70-110 H TESTED AT [facility] [address] ([facility] (test code = [place] 15[address]) [id number] TROPONIN [id number] 12:31:00 Test Item Value Reference Range Interpretation Comments TROPONIN I (BEAKER) (test code = 0.89 ng/mL 0.00-0.03 HH 397) Troponin I (TnI) [...] failure, acidosis, acute neurological disease, and persistent tachyarrhythmia.[id number] 12:26:00 Test Item Value Reference Range Interpretation Comments CALCIUM (BEAKER) (test code = 697) 7.7 mg/dL 8.4-10.2 L [id number] 12:24:00 Test Item Value Reference Range Interpretation Comments POTASSIUM (BEAKER) (test code = 4.4 meq/L 3.5-5.1 379) [id number] 12:24:00 Test Item Value Reference Range Interpretation Comments MAGNESIUM (BEAKER) (test code = 2.2 mg/dL 1.6-2.6 627) [id number] 12:24:00 Test Item Value Reference Range Interpretation Comments SODIUM (BEAKER) (test code = 381) 128 meq/L 136-145 L POCT-GLUCOSE [id number] 12:15:00 Test Item Value Reference Range Interpretation Comments POC-GLUCOSE METER 281 mg/dL 70-110 H TESTED AT [facility] [address] (BEAKER) (test code = [place] [facility] 1538) [address] PH, [id number] 11:52:00 Test Item Value Reference Range Interpretation Comments PH ARTERIAL (BEAKER) (test code = 383) 7.36 7.35-7.45 RAD, CHEST, 1 VIEW, NON [id number] 08:05:00Reason for exam:->central line placementFINAL REPORT CLINICAL [...] cardiomediastinal silhouette with sternotomy wires. Signed: Bolivar Villagran MDReport Verified Date/Time:05/26/2019 08:05:54 Reading Location: [address] Neuro Reading Room TROPONIN [id number] 06:42:00 Test Item Value Reference Range Interpretation [...] acidosis, acute neurological disease, and persistent tachyarrhythmia.TROPONIN [id number] 06:41:00 Test Item Value Reference Range Interpretation [...] acute neurological disease, and persistent tachyarrhythmia.BASIC METABOLIC [id number] 06:23:00 Test Item Value Reference Range Interpretation [...] 697) EGFR (BEAKER) (test 11 mL/min/1.73 ESTIMA NOVA GFR IS code = 1092) sq m NOT ACCURATE CREATININE CLEARANCE IN PREDICTING GLOMERULAR FILTRATION RATE . ESTIMATED GFR I S NOT APPLICABLE FOR DIALYSIS PATIEN TS. PROTHROMBIN [id number] 06:20:00 Test Item Value Reference Range Interpretation [...] INR is2.5-3.5 for patients wiht mechanical heart valves.[id number] 06:17:00 Test Item Value Reference Range Interpretation Comments PHOSPHORUS (BEAKER) (test code = 4.5 mg/dL 2.3-4.7 604) [id number] 06:17:00 Test Item Value Reference Range Interpretation Comments MAGNESIUM (BEAKER) (test code = 2.4 mg/dL 1.6-2.6 627) CBC W/PLT COUNT & AUTO [id number] 06:03:00 Test Item Value Reference Range Interpretation [...] 0-1 H PERCENT (BEAKER) (test code = 2801) TSH/FREE T4 IF [id number] 22:17:00 Test Item Value Reference Range Interpretation Comments THYROID STIMULATING HORMONE 3.33 uIU/mL 0.35-4.94 (BEAKER) (test code = 772) TROPONIN [id number] 21:59:00 Test Item Value Reference Range Interpretation Comments TROPONIN I (BEAKER) (test code = 1.04 ng/mL 0.00-0.[address] [facility]) Troponin I (TnI) levels must be interpreted [...] H (BEAKER) (test code = 700) C-REACTIVE [id number] 21:51:00 Test Item Value Reference Range Interpretation Comments C-REACTIVE PROTEIN (BEAKER) (test 13.88 mg/dL 0.00-0.50 H code = 676) COMPREHENSIVE METABOLIC [id number] 21:51:00 Test Item Value Reference Range Interpretation [...] 347) EGFR (BEAKER) (test 12 mL/min/1.73 ESTIMA NOVA GFR IS code = 1092) sq m NOT ACCURATE CREATININE CLEARANCE IN PREDICTING GLOMERULAR FILTRATION RATE . ESTIMATED GFR I S NOT APPLICABLE FOR DIALYSIS PATIEN TS. CBC W/PLT COUNT & AUTO [id number] 21:20:00 Test Item Value Reference Range Interpretation [...] 0-1 H PERCENT (BEAKER) (test code = 2801)
--- NOTE | 2021-05-07 05:21 | ER ---
Nurse's Notes [facility] Name: Benji Villalpando Age: 65 yrs Sex: Male : 1955 Arrival Date: 05/07/2021 Time: 04:46 Bed 17 Private MD: Jack Corley Diagnosis: Edema, unspecified-chronic abdominal ascites ;Candidal balanitis Presentation: 05/07 04:56 Chief complaint: Patient states: infection and pain on the side of private part for 1 em week, reports burning with urination, denies fever. Coronavirus screen: Client denies travel out of the [place] in the last 14 days. Ebola Screen: Patient negative for fever greater than or equal to 101.5 degrees Fahrenheit, and additional compatible Ebola Virus Disease symptoms Patient denies exposure to infectious person. Patient denies travel to an Ebola-affected area in the 21 days before illness onset. No symptoms or risks identified at this time. Initial Sepsis Screen: Does the patient meet any 2 criteria? HR > 90 bpm. No. Patient's initial sepsis screen is negative. Does the patient have a suspected source of infection? Yes: Skin breakdown/wound. Risk Assessment: Do you want to hurt yourself or someone else? Patient reports no desire to harm self or others. Onset of symptoms was May 07, 2021. 04:56 Method Of Arrival: Ambulatory em 04:56 Acuity: MILADYS 3 em Historical: - Allergies: 04:57 No Known Allergies; em - PMHx: 04:57 Anemia; CHF; chronic kidney disease; Diabetes - NIDDM; Hyperlipidemia; Hypertension; em Hypothyroidism; Myocardial infarction; RENAL FAILURE; - PSHx: 04:57 heart bypass; em - Immunization history:: Adult Immunizations up to date, Client reports receiving the 1st dose of the Covid vaccine. - Social history:: Smoking status: Patient denies any tobacco usage or history of. - Family history:: not pertinent. Screenin:06 Abuse screen: Denies threats or abuse. Denies injuries from another. Nutritional ad5 screening: No deficits noted. Tuberculosis screening: No symptoms or risk factors identified. Fall Risk None identified. Assessment: 04:55 General: Appears in no apparent distress. uncomfortable, Behavior is calm, cooperative. em Pain: Complains of pain in head of penis Pain currently is 10 out of 10 on a pain scale. Pain began 1 week. Neuro: Level of Consciousness is awake, alert, obeys commands, Oriented to person, place, time, situation, Appropriate for age. Cardiovascular: Capillary refill < 3 seconds Patient's skin is warm and dry. Respiratory: Airway is patent Respiratory effort is even, unlabored, Respiratory pattern is regular, symmetrical. GI: Abdomen is round distended. Derm: Skin is intact, is thin, Skin is pink, warm \T\ dry. Musculoskeletal: Capillary refill < 3 seconds, Range of motion: intact in all extremities. Vital Signs: 04:56 BP 127 / 67; Pulse 95; Resp 16; Temp 97.3; Pulse Ox 99% on R/A; Weight 72.57 kg; Height em 5 ft. 4 in. (162.56 cm); Pain 10/10; 04:56 Body Mass Index 27.46 (72.57 kg, 162.56 cm) em ED Course: 04:46 Patient arrived in ED. es 04:46 Jack Corley DO is Private Physician. es 04:57 Triage completed. em 04:57 Arm band placed on. em 05:01 Elizabeth Stuart MD is Attending Physician. ma2 05:05 Leodan Agosto is Primary Nurse. ad5 05:06 Patient has correct armband on for positive identification. Bed in low position. Call ad5 light in reach. Side rails up X 1. Adult w/ patient. Pulse ox on. NIBP on. 05:16 No provider procedures requiring assistance completed. Patient did not have IV access em during this emergency room visit. 05:20 Edin Petersen MD is Referral Physician. ma2 Administered Medications: 05:15 Drug: HYDROcodone-acetaminophen 5 mg-325 mg 1 tabs Route: PO; em 05:27 Follow up: Response: Medication administered at discharge. em Outcome: 05:20 Discharge ordered by . ma2 05:27 Discharged to home ambulatory, with family. em 05:27 Condition: stable 05:27 Discharge instructions given to patient, family, Instructed on discharge instructions, follow up and referral plans. medication usage, Demonstrated understanding of instructions, follow-up care, medications, Prescriptions given X 2. 05:27 Patient left the ED. em 16:29 Prescriptions given X daughter reported that pt did not receive his diclofenac iw prescription, called in to [facility] in [place] Signatures: Mariajose Loja Edgar, RN RN Kajal Bone RN RN iw Alzahri, Mohammad, MD MD ma2 Leodan Agosto ad5
--- NOTE | 2021-05-07 05:21 | EDPHYS ---
Physician Documentation [facility] Name: Benji Villalpando Age: 65 yrs Sex: Male : 1955 Arrival Date: 05/07/2021 Time: 04:46 Bed 17 Private MD: Braney [facility] ED Physician Elizabeth Stuart HPI: 05/07 05:18 This 65 yrs old Male presents to ER via Ambulatory with complaints of Penile ma2 Problem. 05:18 The patient presents with pain and redness of glans penis x 1 week, mild . Onset: The ma2 symptoms/episode began/occurred gradually, 2 day(s) ago. Associated signs and symptoms: Pertinent negatives: diarrhea, fever, hematuria. Severity of symptoms: At their worst the symptoms were very mild, in the emergency department the symptoms are unchanged. The patient has not experienced similar symptoms in the past. Historical: - Allergies: 04:57 No Known Allergies; em - PMHx: 04:57 Anemia; CHF; chronic kidney disease; Diabetes - NIDDM; Hyperlipidemia; Hypertension; em Hypothyroidism; Myocardial infarction; RENAL FAILURE; - PSHx: 04:57 heart bypass; em - Immunization history:: Adult Immunizations up to date, Client reports receiving the 1st dose of the Covid vaccine. - Social history:: Smoking status: Patient denies any tobacco usage or history of. - Family history:: not pertinent. ROS: 05:18 Constitutional: Negative for fever, chills, and weight loss. ma2 05:18 All other systems are negative. Exam: 05:18 Constitutional: This is a well developed, well nourished patient who is awake, alert, ma2 and in no acute distress. Chest/axilla: Normal chest wall appearance and motion. Nontender with no deformity. No lesions are appreciated. Cardiovascular: Regular rate and rhythm with a normal S1 and S2. No gallops, murmurs, or rubs. Normal PMI, no JVD. No pulse deficits. Respiratory: Lungs have equal breath sounds bilaterally, clear to auscultation and percussion. No rales, rhonchi or wheezes noted. No increased work of breathing, no retractions or nasal flaring. Abdomen/GI: Soft, non-tender, with normal bowel sounds. No distension or tympany. No guarding or rebound. No evidence of tenderness throughout. Back: No spinal tenderness. No costovertebral tenderness. Full range of motion. Male : has mild balanitis, otherwise Normal genitalia with no discharge or lesions. Vital Signs: 04:56 BP 127 / 67; Pulse 95; Resp 16; Temp 97.3; Pulse Ox 99% on R/A; Weight 72.57 kg; Height em 5 ft. 4 in. (162.56 cm); Pain 10/10; 04:56 Body Mass Index 27.46 (72.57 kg, 162.56 cm) em MDM: 05:18 Differential diagnosis: nonspecific abdominal pain, UTI, urinary retention, ma2 prostatitis, urethritis. Data reviewed: vital signs, nurses notes. Counseling: I had a detailed discussion with the patient and/or guardian regarding: the historical points, exam findings, and any diagnostic results supporting the discharge/admit diagnosis, the presence of at least one elevated blood pressure reading (>120/80) during this emergency department visit, the need for outpatient follow up. Response to treatment: the patient's symptoms have markedly improved after treatment. 05:20 Patient medically screened. ma2 Administered Medications: 05:15 Drug: HYDROcodone-acetaminophen 5 mg-325 mg 1 tabs Route: PO; em 05:27 Follow up: Response: Medication administered at discharge. em Disposition Summary: 05/07/21 05:20 Discharge Ordered Location: Home ma2 Condition: Stable ma2 Diagnosis - Edema, unspecified - chronic abdominal ascites ma2 - Candidal balanitis ma2 Followup: ma2 - With: Private Physician - When: Tomorrow - Reason: Continuance of care Followup: ma2 - With: Edin Petersen MD - When: Tomorrow - Reason: Continuance of care Discharge Instructions: - Discharge Summary Sheet ma2 - Balanitis ma2 Forms: - Medication Reconciliation Form ma2 - Thank You Letter ma2 - Antibiotic Education ma2 - Prescription Opioid Use ma2 Prescriptions: - Diclofenac Sodium 75 mg Oral Tablet Sustained Release - take 1 tablet by ORAL route 2 times per day; 30 tablet; Refills: 0, Product ma2 Selection Permitted - Nystatin-Triamcinolone 100,000-0.1 unit/gram-% Topical Ointment - apply 1 application by TOPICAL route 2 times per day; 1 tube; Refills: 0, ma2 Product Selection Permitted Signatures: Denzel Morris, RN RN em Elizabeth Stuart MD MD ma2
[2021-05-07 05:32] VITALS: BP 127/67; TEMP 97.3; O2SAT 99
[2021-05-07] MEDS ORDERED: HYDROCODONE/APAP 5/325 MG TAB ONE (05:32)
== END 2021-05-07 05:27 | disposition home or self-care (01) ==
LOC: ER 04:39
DX: B37.42 Candidal balanitis (principal); R18.8 Other ascites; E11.22 Type 2 diabetes mellitus with diabetic chronic kidney disease; I13.0 Hypertensive heart and chronic kidney disease with heart failure and stage 1 through stage 4 chronic kidney disease, or unspecified chronic kidney disease; N18.9 Chronic kidney disease, unspecified; I50.9 Heart failure, unspecified
CPT/HCPCS: 99283

== ENCOUNTER 2021-05-09 13:34 | Emergency (ER) | payer OTHER ==
--- OUTSIDE RECORDS SUMMARY | 2021-05-09 15:31 | XMS REPORT | Continuity of Care Document ---
:1955 Author Organization [facility] t Address [address] [place] [address] Care Team Providers Name Role Phone Jack Corley DO Chavez Primary Care Physician [phone] Jose MIRZA Attending Clinician Unavailable NACHO CANTOR Attending Clinician Unavailable Nacho Cantor MD Attending Clinician Diomedes [place] Attending Clinician Tommie Oneill DO Attending Clinician Allegra Arreola Attending Clinician Unavailable Ana Cook MD Attending Clinician [phone] Graciela HEWITT Attending Clinician Unavailable RODRIGUE Attending Clinician Unavailable NACHO CANTOR Admitting Clinician Unavailable Graciela HEWITT Admitting Clinician Unavailable Payers Payer Name Policy Type Policy Effective Date Expiration Date Sour ce Number TEXANPLUSTEXANPLUS HMO [id number] [id number] 2020-Pre 00:00:00 [facility] Problems Condition Condition Condition Status Onset Resolution Last Treating Co mments Source Name Details Category Date Date Treatment Clinician Date Anasarca Anasarca Disease [facility] [place] Cardiogeni Cardiogeni Disease Active [facility] shock c shock 05-25 [facility] - [facility] Medical 00 [place] ESRD (end ESRD (end Disease Active [facility] stage stage [facility] - renal renal Medical disease) disease) Center on on dialysis dialysis Allergies, Adverse Reactions, Alerts Allergy Allergy Status Severity Reaction(s) Onset Inactive Treating Comm ents Source Name Type Date Date Clinician No Known DA Active [facility] Allergie 5-16 Clear s 00:00: [place] 00 [facility] Social History Social Habit Start Date Stop Date Quantity Comments Source [facility] Std Drinks [facility] History [facility] - Alcohol Binge Medical [facility] ter Sex Assigned At [facility] Alcohol intake 2020-11-25 2020-11-25 [facility] 00:[facility]:00 00:00:00 non-drinker of Medical Ce nter alcohol (finding) History [facility] 2019-05-25 2019-05-[address] [facility] - Alcohol Frequency 00:00:00 00:00:00 [facility] History of tobacco 1978-11-[address] [facility] use 00:00[facility]00 [facility] Smoking Status Start Date Stop Date Source Former smoker 2020-11-25 00:00:00 2020-11-25 00:00:00 [facility] Medications Ordered Filled Start Stop Current Ordering [...] ical MG capsule 00 :00 total) by [facility] mouth every 12 (twelve) hours for 4 days. linaGLIPtin Yes 5mg QD Take [address] (TRADJENTA) 1-15 by mouth Luke s - 5 mg Tab 12:46: daily. Medical 23 [place] aspirin 81 Yes 81mg QD Take [address] MG chewable 1-15 by mouth Luke s - tablet 12:46: daily. Medical 23 [place] atorvastati Yes 40mg QD Take [address] [facility] (LIPITOR) 1-15 by mouth Luke s - 80 MG 12:46: daily . Medical tablet 23 [place] clopidogrel Yes 75mg QD Take [address] (PLAVIX) 75 1-15 by mouth Luke s - mg tablet 12:46: daily. Medica l 23 [place] senna Yes 2{tbl} QD Take [address] (SENOKOT) 1-15 tablets by Luke s - 8.6 mg 12:46: mouth Medical tablet 23 daily. [place] levothyroxi 2020- No 88ug Take [address] ne 1-15 01-15 mcg by [facility]ukes - (SYNTHROID, 09:50: 00:00 mouth Medi konrad LEVOTHROID) 50 :00 Every Center 88 MCG morning on tablet an empty stomach. traZODone No 100mg QD Take [address] (DESYREL) 1-15 01-15 mg by [facility] - 100 MG 09:50: 00:00 mouth Medical tablet 50 :00 nightly. [place] traZODone Yes 50mg QD Take 0.5 [facility] [...] Corley TABLET BY [facility] - MOUTH AT [facility] BEDTIME l [facility] Midodrine Midodrine Yes Jack [address] [facility] HCl HCl Corley [facility] Lorazepam Lorazepam Yes Jack [address] Corley as needed [facility] Synthroid Synthroid Yes Jack [address] Corley on an [facility] - empty [facility] stomach in l the [facility] Atorvastati Atorvastati Yes Jack [address] n Calcium n Calcium Corley Luke s - Memoria l [facility] ent Clinics Vital Signs Vital Name Observation Time Observation Value Comments Source Systolic blood 2020-11-21 11:01:00 107 mm[Hg] [facility] Diastolic blood 2020-11-21 11:01:00 56 mm[Hg] [facility] Heart rate 2020-11-21 11:01:00 79 /min [facility] Body temperature 2020-11-21 11:01:00 36.33 Clary [facility] Respiratory rate 2020-11-21 11:01:00 14 /min [facility] Oxygen saturation in 2020-11-21 11:01:00 98 /min [facility] Arterial blood by Medical Ce nter Pulse oximetry Body weight 2020-11-20 10:19:00 71.9 kg [facility] BMI 2020-11-20 10:19:00 25.58 kg/m2 [facility] Procedures Procedure Date / Time Performing Clinician Source Performed POCT-GLUCOSE METER 2020-11-21 11:03:00 Vaughn Hercules V. [facility] POCT-GLUCOSE METER 2020-11-21 07:48:00 Vaughn Hercules V. [facility] MAGNESIUM 2020-11-21 06:21:00 Aneesh Rodriguez [facility] BASIC METABOLIC PANEL 2020-11-21 06:21:00 Aneesh Rodriguez I [facility] (7) [facility] CBC (HEMOGRAM ONLY) 2020-11-21 06:21:00 Aneesh Rodriguez [facility] HEPATIC FUNCTION PANEL 2020-11-21 06:21:00 Brent Devine [facility] POCT-GLUCOSE METER 2020-11-20 21:32:00 Vaughn Hercules V. [facility] XR CHEST 1 VIEW 2020-11-20 18:50:00 Aneesh Rodriguez [facility] PORTABLE/BEDSIDE [facility] POCT-GLUCOSE METER 2020-11-20 18:17:00 Vaughn Hercules V. [facility] POCT-GLUCOSE METER 2020-11-20 16:52:00 Vaughn Hercules V. [facility] BLOOD GAS, ARTERIAL 2020-11-20 14:29:22 Callie Arreola [facility] SODIUM NA-STAT LAB 2020-11-20 14:29:22 Callie Arreola [facility] POTASSIUM-STAT LAB 2020-11-20 14:29:22 [facility] 2020-11-20 14:29:22 Callie Arreola C [facility] HGB/HCT (H&H) - STAT LAB 2020-11-20 14:29:22 Callie Arre[facility] HEMODIALYSIS INPATIENT 2020-11-20 12:30:[address] [facility] AICD LEADS INSERTION 2020-11-20 12:28:00 Reshma Cook [facility] (SINGLE) [facility] POCT-GLUCOSE METER 2020-11-20 09:09:00 Vaughn Hercules V. [facility] MAGNESIUM 2020-11-20 03:36:00 Aneesh Rodriguez [facility] BASIC METABOLIC PANEL 2020-11-20 03:36:00 Aneesh Rodriguez [place] [id number]) [facility] CBC (HEMOGRAM ONLY) 2020-11-20 03:36:00 Aneesh Rodriguez [facility] PROTHROMBIN TIME/INR 2020-11-20 03:36:00 Aneesh Rodriguez [facility] POCT-GLUCOSE METER 2020-11-19 21:01:00 Vaughn Hercules V. [facility] POCT-GLUCOSE METER 2020-11-19 17:36:00 Vaughn Hercules V. [facility] ECG 12-LEAD 2020-11-19 14:50:26 Aenesh Rodriguez [facility] POCT-GLUCOSE METER 2020-11-19 12:10:00 [facility] TYPE AND SCREEN, 2020-11-19 11:40:00 Anuja Martinez [facility] POCT-GLUCOSE METER 2020-11-19 08:26:00 Vaughn Hercules V. [facility] HEPATIC FUNCTION PANEL 2020-11-19 05:23:00 Brent Devine [facility] MAGNESIUM 2020-11-19 05:23:00 Aneesh Rodriguez [facility] BASIC METABOLIC PANEL 2020-11-19 05:23:00 Aneesh Rodriguez [place] [id number]) [facility] CBC (HEMOGRAM ONLY) 2020-11-19 05:23:00 Aneesh Rodriguez [facility] B-TYPE NATRIURETIC 2020-11-19 05:23:00 Horacio Silva [facility] (BNP) [facility] POCT-GLUCOSE METER 2020-11-18 23:10:00 Vaughn Hercules V. [facility] POCT-GLUCOSE METER 2020-11-18 17:28:00 Vaughn Hercules V. [facility] POCT-GLUCOSE METER 2020-11-18 07:22:00 Vaughn Hercules V. [facility] HEPATIC FUNCTION PANEL 2020-11-18 05:00:00 Sybil, [facility] 2020-11-18 05:00:00 Aneesh Rodriguez [facility] BASIC METABOLIC PANEL 2020-11-18 05:00:00 Aneesh Rodriguez CH I [facility] ([address] [place] [address] CBC (HEMOGRAM ONLY) 2020-11-18 05:00:00 Aneesh Rodriguez [facility] TSH/FREE T4 IF INDICATED 2020-11-18 05:00:00 Vaughn Hercules [facility] T4, FREE 2020-11-18 05:00:00 Vaughn Hercules V. [facility] POCT-GLUCOSE METER 2020-11-17 23:47:00 Diomedes [facility] POCT-GLUCOSE METER 2020-11-17 22:17:00 [place]ini [facility] POCT-GLUCOSE METER 2020-11-17 17:16:00 Diomedes [facility] POCT-GLUCOSE METER 2020-11-17 11:53:00 [place] Ashwini [facility] 2D ECHO W/ DOPPLER 2020-11-17 09:28:36 Martinez Lester [facility] (CW/PW/COLOR) [facility] POCT-GLUCOSE METER 2020-11-17 07:48:00 Jean-Pierre Cantor [facility] HEPATIC FUNCTION PANEL 2020-11-17 04:47:[address] [facility] PTH, INTACT 2020-11-17 04:47:00 Norm Gamble [facility] CBC W/PLT COUNT & AUTO 2020-11-17 04:47:00 Jean-Pierre Cantor [facility] BASIC METABOLIC PANEL 2020-11-17 04:47:00 Jean-Pierre Cantor [facility] () [facility] MAGNESIUM 2020-11-17 04:47:00 Aneesh Rodriguez [facility] PHOSPHORUS 2020-11-17 04:47:00 Jean-Pierre Cantor [facility] POCT-GLUCOSE METER 2020-11-16 22:04:00 Brendan [facility] ECG 12-LEAD 2020-11-16 19:29:54 Unknown, Hl7 Doctor [facility] ECG 12-LEAD 2020-11-16 19:29:28 Martinez Lester [facility] POCT-GLUCOSE METER 2020-11-16 17:15:00 Brendan [facility] POCT-GLUCOSE METER 2020-11-16 12:59:00 Jean-Pierre Cantor [facility] US PARACENTESIS 2020-11-16 12:37:00 Augie Hewitt [facility] BODY FLUID CELL COUNT 2020-11-16 11:51:00 Rene Curry [facility] WITH [facility] PROTEIN, BODY FLUID 2020-11-16 11:51:00 Rene Curry [facility] ALBUMIN PERITONEAL FLUID 2020-11-16 11:51:00 Rene Curry [facility] BODY FLUID CULTURE + 2020-11-16 11:50:00 Rene Curry [facility] GRAM STAIN [facility] CYTOLOGY 2020-11-16 11:50:00 Rene Curry [facility] POCT-GLUCOSE METER 2020-11-16 08:04:00 Jean-Pierre Cantor [facility] ANTI-NUCLEAR ANTIBODY 2020-11-16 06:55:00 Rene Curry [facility] (SANTANA) [facility] ANTI-MITOCHONDRIAL AB, 2020-11-16 06:55:00 Rene Curry I [facility] - REFLEX TO TITER [facility] ACTIN (SMOOTH MUSCLE) 2020-11-16 06:55:00 Rene Curry [facility] - ANTIBODY, IGG [facility] HEPATITIS A ANTIBODY, 2020-11-16 06:55:00 Rene Curry [facility] IGM [facility] HEPATITIS A ANTIBODY, 2020-11-16 06:55:00 Rene Curry [facility] IGG [facility] CERULOPLASMIN 2020-11-16 06:55:00 Rene Curry [facility] [id number]\, 2020-11-16 06:55:00 Rene Curry [facility] SERUM [facility] FERRITIN 2020-11-16 06:55:00 Rene Curry [facility] ALPHA FETOPROTEIN (AFP), 2020-11-16 06:55:00 Rene Curry [facility] TUMOR MARKER [facility] HEPATITIS B SURFACE 2020-11-16 06:55:00 Norm Gamble [facility] ANTIBODY [facility] HEPATITIS B CORE 2020-11-16 06:55:00 Nomr Gamble [facility] - ANTIBODY, [facility] MITOCHONDRIAL AB SCREEN 2020-11-16 06:55:00 Rene Curry C [facility] MITOCHONDRIAL AB TITER 2020-11-16 06:55:00 Rene Curry [facility] SARS-COV2/RT-PCR ([facility] & 2020-11-16 06:54:00 Aneesh Rodriguez [facility] - REF LABS) [facility] US ABDOMEN LIMITED 2020-11-16 05:51:00 Aiden Pike [facility] US DOPPLER 2020-11-16 05:51:00 Aiden Pike [facility] POCT-GLUCOSE METER 2020-11-15 22:32:00 Jean-Pierre Cantor [facility] POCT-GLUCOSE METER 2020-11-15 21:38:00 Jean-Pierre Cantor [facility] HEMODIALYSIS INPATIENT 2020-11-15 19:04:56 Heriberto Gamble [facility] POCT-GLUCOSE METER 2020-11-15 19:02:00 Brendan [facility] POCT-GLUCOSE METER 2020-11-15 12:02:[facility] POCT-GLUCOSE METER 2020-11-15 08:02:[facility] HEPATIC FUNCTION PANEL 2020-11-15 05:24:00 [facility] BASIC METABOLIC PANEL 2020-11-15 05:24:00 [facility] (7) [facility] HEMOGLOBIN A1C 2020-11-15 05:24:00 [facility] PROTHROMBIN TIME/INR 2020-11-15 05:24:00 [facility] MAGNESIUM 2020-11-15 05:24:00 [facility] CBC W/PLT COUNT & AUTO 2020-11-15 05:24:00 [facility] DIFFERENTIAL [facility] HEPATITIS C ANTIBODY 2020-11-15 05:24:00 [facility] HEPATITIS B CORE 2020-11-15 05:24:00 Rene [facility] - ANTIBODY, TOTAL [facility] HEPATITIS B SURFACE 2020-11-15 05:24[facility]00 [facility] HEPATITIS B SURFACE 2020-11-15 05:24:[address] [facility] ANTIBODY [facility] IRON, TIBC, % SAT. 2020-11-15 05:24:00 Rene Curry [facility] (WITHOUT FERRITIN) Medical Cente r XR CHEST 1 VIEW 2020-11-15 01:19:00 [facility] PORTABLE/BEDSIDE Medical Center ARRYTHMIA IMPLANT REPORT 2020-11-14 00:00:00 ProviderJacey ME [facility] - - SCAN Scanning [facility] CARDIAC CATH REPORT - 2020-11-14 00:00:00 Provider, Jacey QUINN [facility] SCAN Scanning [facility] Plan of Care Planned Activity Planned Date [...] Medica l Center colon (procedure) [code = [id number]] Encounters Start End Encounter Admission Attending Care Care Encounter Source Date/Time Date/Time Type Type Clinicians Facility Department ID 2019-05-04 Inpatient [facility] [id number] [facility] 17:34:38 2021-04-09 2021-04-09 Outpatient [facility] [id number] [facility] 2021-01-21 2021-01-21 Outpatient [facility] [id number] [facility] 2021-01-07 2021-01-07 Outpatient [facility] [id number] [facility] 2020-11-10 2020-11-10 [facility] [id number] 2020-10-08 2020-10-08 Out[facility] [id number] [facility] 2020-08-15 2020-08-15 Outpatient [facility] [id number] [facility] 2020-06-25 2020-06-25 [facility] [id number] 15:00:00 15:00:00 t Brenham Brenham [facility] s - Drive [facility] l Medicine Outpati ent Clinics 2020-06-25 2020-06-25 [facility] [id number] 15:00:00 15:00:00 t Brenham [facility] - [facility] Medicine l Medicine Outpati ent Clinics 2020-03-12 2020-03-12 [facility] [id number] 13:45:00 13:45:00 t Brenham Brenham [employer] s - Drive [facility] Medicine l Medicine Outpati ent Clinics 2019-12-10 2019-12-10 [facility] [id number] 13:30:00 13:30:00 t Brenham Genomas s - Drive [facility] Medicine l Medicine Outpati ent Clinics 2019-09-26 2019-09-26 [facility] [id number] 08:23:00 08:23:00 t Brenham Brenham [employer] [facility] - Drive [facility] Medicine l Medicine Outpati ent Clinics 2019-09-20 2019-09-20 [facility] [id number] 16:58:00 16:58:00 t Brenham Bren[facility] [employer] [facility] - Drive [facility] Medicine l Medicine Outpati ent Clinics 2019-08-10 2019-08-10 [facility] [id number] 09:15:00 09:15:00 t Brenham Brenham [employer] s - Drive [facility] Medicine l Medicine Outpati ent Clinics 2019-07-11 2019-07-11 [facility] [id number] 16:55:00 16:55:00 t Brenham Brenham [employer] s - Drive [facility] Medicine Outpati ent Clinics 2019-07-11 2019-07-11 [facility] [id number] 10:15:00 10:15:00 t Brenham [employer] [facility] - Drive [facility] Medicine Outpati ent Clinics 2019-07-06 2019-07-06 [facility] [id number] 16:41:00 16:41:00 t Brenham Genomas s - [place] [facility] Medicine Outpati ent Clinics 2019-05-04 2019-05-04 [id number] 09:00:00 13:49:28 2019-05-04 2019-05-04 Inpatient E [facility] [id number] [facility] 12:18:00 10:21:00 2019-05-04 2019-05-04 Appointmen RODRIGUE [facility] [id number] [facility] 09:00:00 09:00:00 t; CARMELITA, speedy [employer] [facility] [place] HUSAIN Vascular Reinier MAE, Surgery - Physic i [facility] 2019-04-20 2019-04-20 [facility] [id number] 09:30:00 09:30:00 t [employer] [facility] Medicine Outpati ent Clinics 2019-02-27 2019-02-27 [facility] [id number] 10:00:00 10:00:00 t [employer] - [place] [facility] Medicine Outpati ent Clinics 2019-01-24 2019-01-24 [facility] [id number] 10:45:00 10:45:00 t Brenham Genomas s - Drive [facility] Medicine Outpati ent Clinics 2019-01-10 2019-01-10 [facility] [id number] 07:54:00 07:54:00 t Brenham Genomas s - [place] [facility] Medicine Outpati ent Clinics 2018-11-15 2018-11-15 [facility] [id number] 10:00:00 10:00:00 t Brenham [employer] [facility] Medicine Outpati ent Clinics 2018-10-12 2018-10-12 [facility] [id number] 15:00:00 15:00:00 t Specialty/U Serenity kes - Specialty rology [facility] a /Urology Clinic l Clinic Outpati ent Clinics 2018-05-08 2018-05-08 [facility] [id number] 08:20:00 08:20:00 t Snaps [facility] Medicine Outpati ent Clinics 2018-05-01 2018-05-01 [facility] [id number] 08:46:00 08:46:00 t Snaps [facility] Medicine Outpati ent Clinics 2018-04-27 2018-04-27 [facility] [id number] 09:00:00 09:00:00 t Snaps [facility] Medicine Outpati ent Clinics 2018-04-20 2018-04-20 [facility] [id number] 13:36:00 13:36:00 t Snaps [facility] Medicine Outpati ent Clinics 2018-04-12 2018-04-12 [facility] [id number] 16:11:00 16:11:00 t Snaps [facility] Medicine Outpati ent Clinics 2018-04-10 2018-04-10 [facility] [id number] 14:45:00 14:45:00 t Snaps [facility] Medicine Outpati ent Clinics Results Test Description Test Time Test Comments Results Result Comments Source GLUBED 2020-12-19 16:39:00 Test Item Value Reference Range Interpretation Comme nts GLUBED (test code = GLUBED) 104 MG/DL 70-110 N Performed by certified 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 [facility] - XR FLUOROSCOPY 0-60 [id number] 15:03:00 [facility] 1955 Sex: M FAX: Espinoza Santillan MD [phone] [place]: St: REG Name: TROY FORTE [facility] : 1955 Age/S: 65/M [address] [place] [address] Unit #: [id number] Loc: [place] [address] Phys: Espinoza Villagran MD Acct: [id number] Dis Date: Status: REG [facility] PHONE #: [phone] Exam Date: 12/19/2020 1445 FAX #: [phone] Reason: LUE FISTULA MALFUNCTION EXAMS: CPT CODE: [id number] XR FLUOROSCOPY0-60 MIN 23181 Study: - XR FLUOROSCOPY 0-60 MIN 12/19/2020 2:00 PM Patient Name: TROY FORTE MR: [id number] DATE: 12/19/2020 2:00 PM : 1955; Age: 65 years y/o Male Ordering Physician: Espinoza Villagran MD Clinical Indication: LUE FISTULA MALFUNCTION Intraprocedural fluoroscopy wasprovided by the Department of Radiology. Any images obtained were interpreted by the surgeon intraoperatively. Fluoroscopy time: 18 seconds Reference Air Kerma: 1.3 mGy SL: [id number] at 1503 Reported and signed by: Ar Corley D.O. CC: Espinoza Villagran MD Technologist: Chevy Acevedo RT(R) Trnscrd Date/Time/By: 12/19/2020 (0441) : By:[email or web address] Orig Print D/T: S: 12/19/2020 (1348) PAGE 1 Signed ReportBASIC METABOLIC PANEL 2020-12-19 [...] 8.8 mg/dL 8.0-10.5 N CA) CBC W/AUTO [id number] 10:45:00 Test Item Value Reference Range Interpretation [...] NO = MDIFF) - XR CHEST 1 [id number] 10:42:00 [facility] : 1955 Sex: M FAX: Espinoza Santillan MD [phone] [place]: St: REG Name: TROY FORTE [facility] : 1955 Age/S: 65/M [address] [place] [address] Unit #: [id number] Loc: [place] [address] Phys: Espinoza Villagran MD Acct: [id number] Dis Date: Status: REG [facility] PHONE #: [phone] Exam Date: 12/19/2020 1031 FAX #: [phone] Reason: PRE PROCEDURE EXAMS: CPT CODE: [id number] XR CHEST 1 V 20856 Study: - XR CHEST 1 V 12/19/2020 9:13 AM Patient Name: TROY FORTE MR: [id number] : 1955; Age: 65 years y/o Male [...] congestion and small bilateral pleural effusions. SL: [id number] at 1042 Reported and signed by: Tr Ly M.D. CC: Espinoza Villagran MD Technologist: Bren Quionnez RT(R) Trnscrd Date/Time/By: 12/19/2020 (9237) : By: [email or web address] Orig Print D/T: S: 12/19/2020 (3719) PAGE 1 Signed ReportCBC W/AUTO [id number] 10:41:00 Test Item Value Reference Range Interpretation [...] code = MDIFF) COVID 19 Asymptomatic IH [id number] 10:40:00 Test Item Value Reference Range Interpretation [...] not done this admissionCARDIAC CATH REPORT - [id number] 16:28:06Ordered by an unspecified provider.[facility] ARRYTHMIA IMPLANT REPORT - [id number] 16:28:06Ordered by an unspecified provider.[facility]MITOCHONDRIAL AB, REFLEX TO TITER 2020-11-24 07:25:00 Test Item Value Reference Range Interpretation Comments SCAN RESULT (test code = [id number]) Anti-Mitochondrial Ab, reflex to [id number] 07:25:00Scan ResultQUEST DIAGNOSTIC INCORPORATEDNorthBay Medical CenterALBUMIN PERITONEAL FLUID 2020-11-21 11:32:00 Test Item Value Reference Range Interpretation Comments Albumin, Peritoneal 2.4 g/dL Fluid (test code = 1749-1) HARVEY (test code = This test was performed HARVEY) at [facility] Lab, [facility]. Reference range is not defined and interpretation must be performed in the consideration of the pathophysiology of the analyte and the clinical context. [facility] CenterALBUMIN PERITONEAL [id number] 11:32:00 Test Item Value Reference Range Interpretation Comments ALBUMIN, PERITONEAL FLUID (BEAKER) 2.4 g/dL (test code = 6974451) This test was performed at [facility]Reference range is not defined and interpretation must be performed in the consideration of the pathophysiology of the analyte and the clinical context.POC-Glucose meter 2020-11-21 11:23:00 Test Item Value Reference Range Interpretation Comments POC-Glucose Meter (test 175 mg/dL 70-110 H : TE STED AT [facility] code = 1538) 9393 [facility], 770 30: Single Pointed Operator/Techni elsie ID = [id number] for ALARCON, SERKAL EM Lab Interpretation (test Abnormal code = 29940-1) [facility] CenterPOCT-GLUCOSE [id number] 11:23:00 Test Item Value Reference Range Interpretation Comments POC-GLUCOSE METER 175 mg/dL 70-110 H : TESTED A T [facility] 6720 (BEAKER) (test code = [place], 1538) [address]: Single Pointed Operator/Techni elsie ID = [id number] for FAHAD CASTAÑEDA Hepatic function [id number] 10:08:00 Test Item Value Reference Range Interpretation Comments Protein, Total (test 6.6 See_Comment [Autom ated code = 2885-2) message] The system which generated this result transmit nova reference range : 6.0 - 8.3 gm/dL . The reference range was not u sed to interpret th is result as normal/abnormal . Albumin (test code = 3.2 g/dL 3.5-5 L 72106-2) Total Bilirubin (test 0.8 mg/dL 0.2-1.2 code = 1975-2) Bilirubin, Direct 0.4 mg/dL 0.1-0.5 (test code = 1968-7) Alkaline Phosphatase 110 U/L 40-150 (test code = 6768-6) AST (test code = 19 U/L 5-34 1920-8) ALT (test code = 7 U/L 6-55 1742-6) HARVEY (test code = HARVEY) Single Pointed Operator ID - EDASI Lab Interpretation Abnormal (test code = 56446-7) [facility] CenterHEPATIC FUNCTION [id number] 10:08:00 Test Item Value Reference Range Interpretation [...] (test code = 7 U/L 6-55 347) Single Pointed Operator ID - EDASIPOCT-GLUCOSE [id number] 08:18:00 Test Item Value Reference Range Interpretation Comments POC-GLUCOSE METER 130 mg/dL 70-110 H : TESTED A T [facility] 6720 (BEAKER) (test code = [place], 1538) [address]: Single Pointed Operator/Techni elsie ID = [id number] for FAHAD CASTAÑEDA Basic Metabolic [id number] 07:17:00 Test Item Value Reference Range Interpretation [...] Calcium (test code = 8.4 mg/dL 8.4-10.2 47052-3) EGFR (test code = 9 mL/min/1.73 [place] [address]-9) NOT ACCURATE CREATININE CLEARANCE IN PREDICTING GLOMERULAR FILTRATION RATE . ESTIMATED GFR I S NOT APPLICABLE FOR DIALYSIS PATIENTS. HARVEY (test code = HARVEY) Single Pointed Operator ID - ADMIN Lab Interpretation Abnormal (test code = 47588-2) [facility] CenterBASIC METABOLIC [id number] 07:17:00 Test Item Value Reference Range Interpretation [...] S NOT APPLICABLE FOR DIALYSIS PATIEN TS. Single Pointed Operator ID - YARQRDhbxlbhqe2137-31-51 07:16:00 Test Item Value Reference Range Interpretation Comments Magnesium (test code = 2.0 mg/dL 1.6-2.6 59674-7) HARVEY (test code = HARVEY) Single Pointed Operator ID - ADMIN Lab Interpretation (test Normal code = 23126-6) [facility] CenterMAGNESIUM2021-01-15 07:16:00 Test Item Value Reference Range Interpretation Comments MAGNESIUM (BEAKER) (test code = 2.0 mg/dL 1.6-2.6 627) Single Pointed Operator ID - ADMINCBC (Hemogram only)2020-11-21 06:55:00 Test Item Value Reference Range Interpretation Comments WBC (test code = 6690-2) 7.2 See_Comment [A utomated message] The system [employer] generated this result transmitted ref erence range: 3.5 - 10 .5 K/L. The refe rence range was not u sed to interpret this result as normal/abnor mal. RBC (test code = 789-8) 3.09 See_Comment L [Au tomated message] The system [employer] generated this result transmitted ref erence range: 4.63 - 6 .08 M/L. The refe rence range was not u sed to interpret this result as normal/abnor mal. MCHC (test code = 786-4) 30.1 See_Comment L [A utomated message] The system [employer] generated this result transmitted ref erence range: [...] See_Comment [Aut omated message] 777-3) The system [employer] generated this result transmitted ref erence range: 150 - 45 0 K/CU MM. The referen ce range was not u sed to interpret this result as normal/abnor mal. MPV (test code = 10.2 fL 9.4-12.4 00097-0) nRBC (test code = 413) 0 See_Comment [Aut omated message] The system [employer] generated this result transmitted ref erence range: 0 - 0 /1 00 WBC. The refere nce range was not u sed to interpret this result as normal/abnor mal. Lab Interpretation (test Abnormal code = 14575-6) [facility] (HEMOGRAM ONLY)2020-11-21 06:55:00 Test Item Value Reference [...] = 413) RAD, CHEST, 1 VIEW, NON [id number] 00:39:00Reason for exam:->SICD implantShould this be performed at the bedside?->Yes [facility] 1955 Sex: MFINAL [...] 12:39 AMXR chest 1 view portable / [id number] 00:39:00Interface, External Ris In - 11/21/2020 12:41 [...] Signed: Elidia Patel Verified Date/Time: 11/21/2020 00:39:32 [facility]PO[facility] [id number] 21:44:00 Test Item Value Reference Range Interpretation Comments POC-GLUCOSE METER 173 mg/dL 70-110 H : TESTED A T [facility] 6720 (BEAKER) (test code = [facility] R [facility], 1538) [address]: Single Pointed Operator/Techni elsie ID = [id number] for WILMAN BIRD RA POCT-GLUCOSE [id number] 18:37:00 Test Item Value Reference Range Interpretation Comments POC-GLUCOSE METER 157 mg/dL 70-110 H : TESTED A T [facility] 6720 (BEAKER) (test code = [facility] R [facility], 1538) [address]: Single Pointed Operator/Techni elsie ID = [id number] for RICARDO COOK POCT-GLUCOSE [id number] 17:03:00 Test Item Value Reference Range Interpretation Comments POC-GLUCOSE METER 151 mg/dL 70-110 H : TESTED A T [facility] 6720 (BEAKER) (test code = [facility] R [facility], 1538) [address]: Single Pointed Operator/Techni elsie ID = [id number] for BL CORI MACHADO Blood gas, [id number] 14:46:00 Test Item Value Reference Range Interpretation [...] 100 Lab Interpretation Abnormal (test code = 90613-4) [facility] CenterHGB/HCT (H&H)-Stat [id number] 14:46:00 Test Item Value Reference Range Interpretation Comments Hemoglobin (test code = 7.3 See_Comment L [Au tomated message] 786-4) The system [employer] generated this result transmitted ref erence range: 13.0 - 1 6.8 GM/DL. The refe rence range was not u sed to interpret this result as normal/abnor mal. Hematocrit (test code = 21.0 % 40-50 L 4544-3) Lab Interpretation (test Abnormal code = 47343-3) [facility] CenterGlucose-Stat [id number] 14:46:00 Test Item Value Reference Range Interpretation Comments Glucose (test code = 2345-7) 143 mg/dL 70-110 H Lab Interpretation (test code = Abnormal 10103-6) [facility] Na-Stat [id number] 14:46:00 Test Item Value Reference Range Interpretation Comments Sodium (test code = 2951-2) 133 meq/L 136-145 L Lab Interpretation (test code = Abnormal 26301-6) [facility] CenterPotassium-Stat [id number] 14:46:00 Test Item Value Reference Range Interpretation Comments Potassium (test code = 2823-3) 3.3 meq/L 3.6-5.5 L Lab Interpretation (test code = Abnormal 44464-8) [facility] CenterBLOOD GAS, [id number] 14:46:00 Test Item Value Reference Range Interpretation [...] (test code = 1819) 100.0 SODIUM NA-STAT [id number] 14:46:00 Test Item Value Reference Range Interpretation Comments SODIUM (BEAKER) (test code = 381) 133 meq/L 136-145 L POTASSIUM-STAT [id number] 14:46:00 Test Item Value Reference Range Interpretation Comments POTASSIUM (BEAKER) (test code = 3.3 meq/L 3.6-5.5 L 379) GLUCOSE-STAT [id number] 14:46:00 Test Item Value Reference Range Interpretation Comments GLUCOSE RANDOM (BEAKER) (test code 143 mg/dL 70-110 H = 652) HGB/HCT (H&H) - STAT [id number] 14:46:00 Test Item Value Reference Range Interpretation Comments HEMOGLOBIN (BEAKER) (test code = 7.3 GM/DL 13.0-16.8 L 410) HEMATOCRIT (BEAKER) (test code = 21.0 % 40.0-50.0 L 411) Mitochondrial Ab [id number] 13:28:00 Test Item Value Reference Range Interpretation Comments Anti-Mitocho NEGATIVE NEGATIVE This test was developed nd Abs (test and its analyti konrad code = performance 3101190) characteristics havebeen determined by [facility].It h as not been cleared or approved by FDA. This as say has been validatedp ursuant to the CLIA reg ulations and is used for clinical purposes. HARVEY (test Performing Lab code = HARVEY) [facility] [address] [place] [address] Bert Kraft MD, PhD, BELLE [facility] CenterMitochondrial Ab [id number] 13:28:00 Test Item Value Reference Range Interpretation [...] HARVEY) EZ [facility] [address] [place] [address] Bert Kraft MD, PhD, BELLE [facility] CenterHEMODIALYSIS [id number] 12:30:00Yumiko Miranda RN 11/20/2020 5:11 PM HD started per protocol. At 11:35 Dr. Dallas Soria called about the patient to go to [facility] and stated that she talked to nephrology team and agreed upon to discontinue hd early. Discontinued dialysis as requested - completed 59 minutes of hd with net UF of 403 ml. Patient was picked up by [facility] staff/transport via stretcher. Report given to HIRA [...] Value Date HEPBSAG Nonreactive 11/15/2020 HEPCAB Nonreactive 11/15/2020[facility] CenterBody [facility] + gram [id number] 12:24:00 Test Item Value Reference Range Interpretation Comments Result (test code = 6463-4) No growth Gram Stain Result (test No organisms seen code = 1123) [facility] CenterBODY FLUID CULTURE + GRAM [id number] 12:24:00 Test Item Value Reference Range Interpretation Comments CULTURE (BEAKER) (test code No growth = 1095) GRAM STAIN RESULT (BEAKER) 1+ WBCs (test code = 1123) GRAM STAIN RESULT (BEAKER) No organisms seen (test code = 68817) [id number] 12:11:00 Test Item Value Reference Range Interpretation Comments Ceruloplasmin (test code 38 mg/dL 18-36 H = 20191229) HARVEY (test code = HARVEY) Performing Lab *GALLO [employer] [facility], [address] [place] [id number] Niranjan Morejon MD Lab Interpretation (test Abnormal code = 41198-7) [facility] CenterPOCT-GLUCOSE [id number] 09:22:00 Test Item Value Reference Range Interpretation Comments POC-GLUCOSE METER 156 mg/dL 70-110 H : Notified RN/: (CONRAD) (test code = TESTED AT [facility] 2650 1570) [facility], [address]: Single Pointed Operator/Techni elsie ID = [id number] for AN RICARDO DAUGHERTY ECG 12 [id number] 07:03:35Interface, External Ris In - 11/20/2020 7:03 AM CSTVentricular Rate 75 BPMAtrial Rate 75 BPMP-R Interval 196 msQRS Duration 116 msQ-T Interval 422 msQTC Calculation(Bazett) 471 msP [place] 44 degreesR [place] -38 degreesT [place] 137 degreesNormal sinus rhythmHorizontal axisPossible anterior infarct, age undetermined.Abnormal ECGWhen compared with ECG of 16-NOV-2020 19:29,Questionable change in initial forces of Anterior leadsConfirmed by Allen YOUNG MICHAEL (150) on 11/20/2020 7:03:30 [facility] CenterProthrombin time/[id number] 04:26:00 Test Item Value Reference Interpretation Comments [...] Coumadin Lab Interpretation Abnormal (test code = 46030-8) [facility] CenterPROTHROMBIN TIME/[id number] 04:26:00 Test Item Value Reference Range Interpretation [...] valves.Within 24 hours, if on CoumadinBASIC METABOLIC [id number] 04:13:00 Test Item Value Reference Range Interpretation [...] S NOT APPLICABLE FOR DIALYSIS PATIEN TS. Single Pointed Operator ID - JEVON [id number] 04:03:00 Test Item Value Reference Range Interpretation Comments MAGNESIUM (BEAKER) (test code = 2.0 mg/dL 1.6-2.6 627) Single Pointed Operator ID - JEVON LCBC (HEMOGRAM ONLY)2020-11-20 03:55:00 [...] code = 413) Actin (Smooth Muscle) Antibody, [id number] 22:18:00 Test Item Value Reference Range Interpretation [...] (test code Performing Lab = HARVEY) EZ [employer] [facility] [address] [place] [address] Bert Kraft MD, PhD, BELLE [facility] CenterPOCT-GLUCOSE [id number] 21:13:00 Test Item Value Reference Range Interpretation Comments POC-GLUCOSE METER 222 mg/dL 70-110 H : TESTED A T [facility] 67 (CONRAD) (test code = [facility] [place] [facility], 1538) [address]: Single Pointed Operator/Techni elsie ID = [id number] for WILMAN BIRD RA POCT-GLUCOSE [id number] 17:48:00 Test Item Value Reference Range Interpretation Comments POC-GLUCOSE METER 205 mg/dL 70-110 H : Notified RN/MD: (CORNAD) (test code = TESTED AT [facility] 6720 1538) [facility], [address]: Single Pointed Operator/Techni elsie ID = [id number] for RICARDO COOK Type and screen, [id number] 12:33:00 Test Item Value Reference Range Interpretation Comments ABO/RH AUTOMATED (CONRAD) (test A POSITIVE code = 2260) Ab Scrn (test code = 890-4) NEGATIVE [facility] [id number] 12:22:00 Test Item Value Reference Range Interpretation Comments POC-GLUCOSE METER 196 mg/dL 70-110 H : Notified RN/MD: (CONRAD) (test code = TESTED AT [place] [address]) [facility], [address]: Single Pointed Operator/Techni elsie ID = [id number] for RICARDO COOK POCT-GLUCOSE [id number] 08:52:00 Test Item Value Reference Range Interpretation Comments POC-GLUCOSE METER 166 mg/dL 70-110 H : TESTED A T [place] [address] ([facility]) (test code = [facility], 153) [address]: Single Pointed Operator/Techni elsie ID = [id number] for Junie Gutiérrez POCT-GLUCOSE [id number] 08:52:00 Test Item Value Reference Range Interpretation Comments POC-GLUCOSE METER 176 mg/dL 70-110 H : TESTED A T [place] [address] ([facility]) (test code = [facility], 153) [address]: Single Pointed Operator/Techni elsie ID = [id number] for Junie Gutiérrez POCT-GLUCOSE [id number] 08:39:00 Test Item Value Reference Range Interpretation Comments POC-GLUCOSE METER 144 mg/dL 70-110 H : Notified RN/MD: (CONRAD) (test code = TESTED AT [place] [address]) [facility], [address]: Single Pointed Operator/Techni elsie ID = [id number] for RICARDO COOK BASIC METABOLIC [id number] 07:50:00 Test Item Value Reference Range Interpretation [...] S NOT APPLICABLE FOR DIALYSIS PATIEN TS. Single Pointed Operator ID - [id number] 07:46:00 Test Item Value Reference Range Interpretation Comments MAGNESIUM (BEAKER) (test code = 2.0 mg/dL 1.6-2.6 627) Single Pointed Operator ID - BENYHEPATIC FUNCTION [id number] 07:46:00 Test Item Value Reference Range Interpretation [...] (test code = 9 U/L 6-55 347) Single Pointed Operator ID - BENYB-type Natriuretic Factor (BNP)2020-11-19 07:44:00 Test Item Value Reference Range Interpretation Comments BNP (test code = 00017-0) 4442 pg/mL 0-100 H HARVEY (test code = HARVEY) Single Pointed Operator ID - BENY Lab Interpretation (test Abnormal code = 27745-2) [facility] CenterB-TYPE NATRIURETIC FACTOR (BNP)2020-11-19 07:44:00 Test Item Value Reference Range Interpretation Comments B-TYPE NATRIURETIC PEPTIDE 4442 pg/mL 0-100 H (BEAKER) (test code = 700) Single Pointed Operator ID - BENYCBC (HEMOGRAM ONLY)2020-11-19 07:14:00 Test [...] 0-0 (BEAKER) (test code = 413) POCT-GLUCOSE [id number] 23:22:00 Test Item Value Reference Range Interpretation Comments POC-GLUCOSE METER 132 mg/dL 70-110 H : TESTED A T [facility] 6720 (BEAKER) (test code = [facility], 153) [address]: Single Pointed Operator/Techni elsie ID = [id number] for NO OR STEPHANIE ABISAI CUETO SHA POCT-GLUCOSE [id number] 17:45:00 Test Item Value Reference Range Interpretation Comments POC-GLUCOSE METER 259 mg/dL 70-110 H : TESTED A T [facility] 6720 (BEAKER) (test code = [facility], 153) [address]: Single Pointed Operator/Techni elsie ID = [id number] for Junie Gutiérrez T4, [id number] 09:08:00 Test Item Value Reference Range Interpretation Comments Free T4 (test code = 0.62 ng/dL 0.7-1.48 L 3024-7) HARVEY (test code = HARVEY) Single Pointed Operator ID - JORDAN Sterling Lab Interpretation (test Abnormal code = 08900-0) [facility] CenterT4, [id number] 09:08:00 Test Item Value Reference Range Interpretation Comments FREE T4 (BEAKER) (test code = 655) 0.62 ng/dL 0.70-1.48 L Single Pointed Operator ID - JORDAN MTSH/Free T4 If [id number] 08:03:00 Test Item Value Reference Range Interpretation Comments TSH (test code = 7.177 See_Comment H [Automated 92445-9) message] The system which generated this result transmit nova reference range : 0.350 - 4.940 uIU/mL. The reference range was not used to interpret this result as normal/abnormal . HARVEY (test code = HARVEY) Single Pointed Operator ID - JORDAN M Lab Interpretation Abnormal (test code = 76901-7) [facility] CenterTSH/FREE T4 IF [id number] 08:03:00 Test Item Value Reference Range Interpretation Comments THYROID STIMULATING HORMONE 7.177 uIU/mL 0.350-4.940 H (BEAKER) (test code = 772) Single Pointed Operator ID - JORDAN MBASIC METABOLIC [id number] 07:42:00 Test Item Value Reference Range Interpretation [...] S NOT APPLICABLE FOR DIALYSIS PATIEN TS. Single Pointed Operator ID - JORDAN [id number] 07:41:00 Test Item Value Reference Range Interpretation Comments MAGNESIUM (BEAKER) (test code = 1.9 mg/dL 1.6-2.6 627) Single Pointed Operator ID - JORDAN EPATIC FUNCTION [id number] 07:41:00 Test Item Value Reference Range Interpretation [...] (test code = 11 U/L 6-55 347) Single Pointed Operator ID - JORDAN MCBC (HEMOGRAM ONLY)2020-11-18 06:18:00 [...] 0-0 (BEAKER) (test code = 413) POCT-GLUCOSE [id number] 00:01:00 Test Item Value Reference Range Interpretation Comments POC-GLUCOSE METER 164 mg/dL 70-110 H : TESTED A T [facility] 6720 (BEAKER) (test code = [place] [facility], 1538) [address]: Single Pointed Operator/Techni elsie ID = [id number] for NO OR ABISAI BROWN POCT-GLUCOSE [id number] 17:28:00 Test Item Value Reference Range Interpretation Comments POC-GLUCOSE METER 247 mg/dL 70-110 H : TESTED A T [facility] 6720 (BEAKER) (test code = [facility] Melodie [facility], 1538) [address]: Single Pointed Operator/Techni elsie ID = [id number] for YUKI BUCIOMOUSTAPHAFRANCY Hernandez 2D Echo W/Doppler(CW/PW/Color)2020-11-17 16:44:16Ejection FractionSLEH ECHO HEARTLAB MKCKESSON CPACSInterface, External Ris In - 11/17/2020 4:44 PM C STTransthoracic Echocardiography Report (TTE) Demographics Patient Name TROY FORTE SR. 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[place], [place], RDCS,RVT,RDMS Interpreting [facility] Needs to be Pre Physician Read Iker Ramirez MD Fellow PABLO Trevizo Procedure Type of Study TTE procedure:2DECHO W DOPPLER(CW/PW/COLOR) (Routine) Indications:CHF.Clinical HistoryCHF,CKD,CAD,UT, DM, HLD,HTN,HX OF CABG, HYPOTHYROIDISMHeight: 66 inches [...] mmHg Pulmonic Valve Estimated PASP: 46.13 mmHg IA ED Velocity: 1.39 m/sCHI [facility] CenterCytology2021-01-11 15:35:00 Test Item Value Reference Range Interpretation Comments Case Report (test code Medical Cytology = 104) Report Case: [id number] Authorizing Provider: Jean-Pierre Cantor MD Collected: 11/16/2020 11:50 AM Ordering Location: [address] Received: 11/17/2020 09:32 AM Service Pathologist: Silvestre Le MD Specimen: Peritoneal Fluid DIAGNOSIS (test code = x9izpOMuLIHnp3nzWOBnkQ 3220) FuZzEwMzNcZnRuYmpcdWMx IHtccnRmMVxlcGljOTIwMF yrnhTwTKUwsWFeG0Tztmhw XXmdDW5nGD4uhZnelZRhxZ YmPHBvNmQha7bhl588aIQr y7kqTPZKxnxcfEl7uSefC3 2en4N8YbyqG97vaNKpQHls bGFpblxmczIwIFBFUklUT0 6LHDpsSiaBKTJaYVQYTL5A R9GWBxLzLpaimX6wFFFfLC 0bGlIURTXMCtOeGe6RAO4G OBzLPbUBK0ibdVVfjTonmq GuCPzvy1HpMVtkWUXsYQ1q wNeiQCPoTM1cMTLwF1ozsQ 9lmqq9EmSrQVWuLpH1PIBy kiD6Njj3ZYRsRBzkc9hib6 ZpUVQeWTk9vTvcQvKpHOIa x4dtfvBaBuYwJTRyTATmMC RmwHJuI165b1etd6eqvpTd rOW0IZRfBEX7WWybxxHcso L6XBwczEGrQtO1RVzdfmOo OEbpxdMnrnFkXwo4IOWkR4 03USX1xWmnq8vzRXZ8QTHq YATcHcSbOk6hmAIcM792SA TdAUYKGYXkkNs9DCVojkWa uhZxrIMAw824J566x5hqVO UtrmVmlMdTepvqk0fvX512 XHBhcGVydzEyMjQwXHBhcG PtnYM6EHJxPJ4whaxkWDzc DOjdQFLoeiT1XZMkyILaY1 LdAGNfYS3rrsvxLHP2RAkf ZQYnEET7NlAjOQUyl2Zioy n9VeOlpu0mrf83WLQ9i1Lv oPhmIXA0MFA3DsDnSp2spM RoIEZpQI7aDhImpLHmGWHl qq15oTvkCOseJCT9MLUcxf Jlz4Jkr3thFuHbldEtL3xn V4QvZOLjYYYbZVOmMjLcwd Wpl9Nwa1HqrILveBb1r9vr QCFsEPJcgQrxe0faRGV3HW FymJInD7mtjM9lUWLhYF7i dwsep9yiNXhkBBcpNLZgpV H0hvA2LUMveZGtG1NbaP4l LVIgQBwyDWIbmxr7EmZqBq 9vdGVyeTcyMFxzYmtwYWdl XHBnbmNvbnRccGduZGVjXH BsYWluXHBsYWluXGYwXGZz MjRccWxcbGFuZzEwMzNcaG ljaFxmMVxkYmNoXGYxXGxv E7poXmOiRrYpSqz6MQHvjQ BbDJOeFhy3AYTfaIJeFAHN dHbnvS9xGYGmnJvioZ2uaR M9NKItzvHhcNGOpD3eQPQA oW6fFcS8EnAnBuI2OFQ2YL BMEZKmpu15 CPT Code(s) (test code n9ewjKPcNOKasDP1KqMfZK = 3357) Dfe9fzl6VelKHdwPWbTRqk kLNvurDwhs14bGG8jE73VV 1aIGUoZiS0QEXcdwY6Sub4 QBNlVECmqADnD180k1ejo0 syixRtmKA3dFrdKSLmYHZi YWluXGZzMjAgODgxMDhccG FyfQ== CLINICAL DATA (test n6gneGUaQMRbhPD1KmHlAL code = 3355) Ibu0cgo0KdcAMyjVEcVPkn rQKhloIamx37tGF3pE14RS 1uXNEaQoS0JXCayrG1Fvm0 MPEqPYEbxYKhW963y6ysz7 oyncMzuEM2kYyrTEOdRZQk YWluXGZzMjAgQXNjaXRlcy kdL9yKUXEawf3= SPECIMEN SOURCE (test x2grpDFyMJGmrGS3ZrUvDM code = 3377) Ozv9qjy5RquTScoYIlHOli jBSptoQozy82gEV4nB85OC 4sDRThXxT0PSMngsJ1Isw4 EHYiHITysJEhC964n0bvo8 kccwAjcZJ3jCobDHQkFHEo YWluXGZzMjAgUEVSSVRPTk VBTCBGTFVJRFxwYXJ9 GROSS DESCRIPTION (test y6ovaDNgFKVlzYD6UnOcYV code = 3366) Tcy5oob2QvyTFqcEWiOEab gJHwrcOxzb70hFN6bZ32HL 0jJKBmUoY1XTCxhdF6Fbe9 WPXvFQNpqLXxX649l5dmi5 tjxhNgxNM6qRpiZWBfYYPf YWluXGZzMjAgMTEwMCBtbH AuIA7kRQRpXbl7kSL6KPUa C3n3e7MarC9iZBXezr5= MICROSCOPIC DESCRIPTION y8mukNCoBJOoxRN3XgFqJJ (test code = 3371) Mzl2ljn4JdnGWalQFwBGjv mAPobdHsai60fYY4oZ58WZ 8kRLLwSdG8TNYatrX3Vkb1 DLAaEVPquMZnU395f9gyk7 eegkAmgDL7wQpgKYEjTDWf QBbfZJTnBcWcYBWwRv4ekO VkLiBccGFyfQ== STATEMENT OF ADEQUACY Satisfactory (test code = 2757) Gross assessment was [facility] performed at (test code [facility], = 2777) Department of Pathology, [address] [place] [address], [place] [address], Technical component was [facility] . [facility] performed at (test code [facility], = 2778) Department of Pathology, [address] [place] [id number], Professional component [facility] was performed at ([facility], code = 2779) Department of Pathology, [address] [place] [address], [facility] 15:35:00Medical Cytology Report Case: [id number] Aut horizing Provider: Jean-Pierre Cantor MD Collected: 11/16/2020 11:50 AM Ordering Location: [address] Received: 11/17/2020 09:32 AM Service Pathologist: Silvestre Le MD Specimen: Peritoneal Fluid PERITONEAL FLUID (CYTOPSPINS): - NEGATIVE FOR MALIGNANCY Signing Pathologist Direct Phone Line: [phone] signed by Silvestre Le MD on 11/17/2020 at 3:35 [id number], CHFPERITONEAL [id number] mls madina fluid; 4 cytospinsPerformed. [facility], Department of Pathology, [address] [place] [address], [facility], [facility] of [facility]ology, [address] [place] [address], [facility], Department of Pathology, [address] [place] [address], Kesj-Nuclear Antibody (SANTANA)2020-11-17 15:14:00 Test Item Value Reference Range Interpretation Comments SANTANA (test code = 75065-8) Negative Negative HARVEY (test code = HARVEY) Test performed by IFA method.Test performed by IFA method. Lab Interpretation (test Normal code = 55076-9) [facility]CLE[facility]TIBODY (SANTANA)2020-11-17 15:14:00 Test Item Value Reference Range Interpretation Comments ANTI-NUCLEAR ANTIBODY (SANTANA) (BEAKER) Negative Negative (test code = 418) Test performed by IFA method.Test performed by IFA method.Protein, Total, Peritoneal [id number] 15:08:00 Test Item Value Reference Range Interpretation Comments PROTEIN, TOTAL, PERITONEAL FLUID 5.2 g/dL (test code = 2883-7) [facility]PR[facility], TOTAL, PERITONEAL [id number] 15:08:00 Test Item Value Reference Range Interpretation Comments PROTEIN, TOTAL, PERITONEAL FLUID 5.2 g/dL (BEAKER) (test code = 5017851) POCT-GLUCOSE [id number] 12:05:00 Test Item Value Reference Range Interpretation Comments POC-GLUCOSE METER 187 mg/dL 70-110 H : TESTED A T [facility] 6720 (BEAKER) (test code = [facility], 1538) [address]: Single Pointed Operator/Techni elsie ID = [id number] for FRANCY GASPAR POCT-GLUCOSE [id number] 08:00:00 Test Item Value Reference Range Interpretation Comments POC-GLUCOSE METER 202 mg/dL 70-110 H : TESTED A T [facility] 6720 (BEAKER) (test code = [facility], 1538) [address]: Single Pointed Operator/Techni elsie ID = [id number] for FRANCY GASPAR BASIC METABOLIC [id number] 06:49:00 Test Item Value Reference Range Interpretation [...] S NOT APPLICABLE FOR DIALYSIS PATIEN TS. Single Pointed Operator ID - PRRFDOnvdhynbtc5760-11-78 06:46:00 Test Item Value Reference Range Interpretation Comments Phosphorus (test code = 6.9 mg/dL 2.3-4.7 H 2777-1) HARVEY (test code = HARVEY) Single Pointed Operator ID - EDASI Lab Interpretation (test Abnormal code = 88235-8) [facility] Center[facility]IUM2021-[facility]-11 06:46:00 Test Item Value Reference Range Interpretation Comments MAGNESIUM (BEAKER) (test code = 1.9 mg/dL 1.6-2.6 627) Single Pointed Operator ID - [id number] 06:46:00 Test Item Value Reference Range Interpretation Comments PHOSPHORUS (BEAKER) (test code = 6.9 mg/dL 2.3-4.7 H 604) Single Pointed Operator ID - EDASIHEPATIC FUNCTION [id number] 06:46:00 Test Item Value Reference Range Interpretation [...] (test code = 10 U/L 6-55 347) Single Pointed Operator ID - EDASIPTH, [id number] 06:40:00 Test Item Value Reference Range Interpretation Comments PTH (test code = 2731-8) 540.2 pg/mL 8.5-72.5 H HARVEY (test code = HARVEY) Single Pointed Operator ID - DB Lab Interpretation (test Abnormal code = 12437-5) [facility] CenterPTH, [id number] 06:40:00 Test Item Value Reference Range Interpretation Comments PARATHYROID HORMONE INTACT 540.2 pg/mL 8.5-72.5 H (BEAKER) (test code = 577) Single Pointed Operator ID - DBCBC with platelet count + automated [id number] 06:23:00 Test Item Value Reference Range Interpretation Comments WBC (test code = 6690-2) 6.2 See_Comment [A utomated message] The system [employer] generated this result transmitted ref erence range: 3.5 - 10 .5 K/L. The refe rence range was not u sed to interpret this result as normal/abnor mal. RBC (test code = 789-8) 2.88 See_Comment L [Au tomated message] The system [employer] generated this result transmitted ref erence range: 4.63 - 6 .08 M/L. The refe rence range was not u sed to interpret this result as normal/abnor mal. MCHC (test code = 786-4) 30.5 See_Comment L [A utomated message] The system [employer] generated this result transmitted ref erence range: [...] See_Comment [Aut omated message] 777-3) The system [employer] generated this result transmitted ref erence range: 150 - 45 0 K/CU MM. The referen ce range was not u sed to interpret this result as normal/abnor mal. MPV (test code = 10.7 fL 9.4-12.4 19243-3) nRBC (test code = 413) 0 See_Comment [Aut omated message] The system [employer] generated this result transmitted ref erence range: [...] See_Comment [Aut omated message] 670) The system [employer] generated this result transmitted ref erence range: 1.78 - 5 .38 K/L. The refe rence range was not u sed to interpret this result as normal/abnor mal. # Lymphs (test code = 0.31 See_Comment L [Auto mated message] 414) The system [employer] generated this result transmitted ref erence range: 1.32 - 3 .57 K/L. The refe rence range was not u sed to interpret this result as normal/abnor mal. # Monos (test code = 0.87 See_Comment H [Autom ated message] 415) The system [employer] generated this result transmitted ref erence range: 0.30 - 0 .82 K/L. The refe rence range was not u sed to interpret this result as normal/abnor mal. # Eos (test code = 416) 0.03 See_Comment L [Au tomated message] The system [employer] generated this result transmitted ref erence range: 0.04 - 0 .54 K/L. The refe rence range was not u sed to interpret this result as normal/abnor mal. # Baso (test code = 417) 0.01 See_Comment [A utomated message] The system [employer] generated this result transmitted ref erence range: 0.01 - 0 .08 K/L. The refe rence range was not u sed to interpret this result as normal/abnor mal. Immature 1 % 0-1 Granulocytes-Relative (test code = 2801) Lab Interpretation (test Abnormal code = 34067-9) [facility] W/PLT COUNT & AUTO [id number] 06:23:00 Test Item Value Reference Range Interpretation [...] PERCENT (BEAKER) (test code = 2801) POCT-GLUCOSE [id number] 22:19:00 Test Item Value Reference Range Interpretation Comments POC-GLUCOSE METER 233 mg/dL 70-110 H : TESTED A T [facility] 6720 (BEAKER) (test code = [facility], 1538) [address]: Single Pointed Operator/Techni elsie ID = [id number] for Emmanuel Moreno POCT-GLUCOSE [id number] 17:34:00 Test Item Value Reference Range Interpretation Comments POC-GLUCOSE METER 179 mg/dL 70-110 H : Notified RN/MD: (CONRAD) (test code = TESTED AT [facility] 6720 1538) [facility], [address]: Single Pointed Operator/Techni elsie ID = [id number] for RICARDO COOK [id number] 15:07:00 Test Item Value Reference Range Interpretation Comments Ferritin (test code = 3231.34 ng/mL 5-275 H 2276-4) HARVEY (test code = HARVEY) Single Pointed Operator ID - EDASIOperator ID - EDASI Lab Interpretation Abnormal (test code = 05024-7) [facility] CenterFERRITIN2021-01-10 15:07:00 Test Item Value Reference Range Interpretation Comments FERRITIN (CONRAD) (test code = 3231.34 ng/mL 5.00-275.00 H 361) Single Pointed Operator ID - EDASIOperator ID - EDASIBody fluid cell count with differential 2020-11-16 14:00:00 Test Item Value Reference Range Interpretation Comments Appearance (test code = Cloudy Clear A 9335-1) Color (test code = Yellow Colorless, Straw A 6824-7) RBCs (test code = 105 See_Comment H [Automate d message] 31511-9) The system [employer]ing [employer] generated this result transmit nova reference range : <=1 /cu mm. The reference range was not used to interpret this result as normal/abnormal . Adjusted WBC Count 660 See_Comment H [Automat ed message] (test code = 35553-0) The sy stem which generated this result transmit nova reference range : <=5 /cu mm. The reference range was not used to interpret this result as normal/abnormal . Lining Cells (test code 0 See_Comment [Au tomated message] = 38541-4) The system [employer] generated this result transmit nova reference range : <=1 /cu mm. The reference range was not used to interpret this result as normal/abnormal . % Segs (test code = 4 % 08834-3) % Lymphs (test code = 27 % 61630-0) % Monos (test code = 69 % 45266-2) % Eos (test code = 0 % 32006-1) % Baso (test code = 0 % 63427-8) Container Body Fluid EDTA Tube (test code = 2873) Lab Interpretation Abnormal (test code = 68341-8) [facility] CenterBODY FLUID CELL COUNT WITH [id number] 14:00:00 Test Item Value Reference Range Interpretation [...] EDTA Tube (test code = 2873) POCT-GLUCOSE [id number] 13:16:00 Test Item Value Reference Range Interpretation Comments POC-GLUCOSE METER 206 mg/dL 70-110 H : Notified RN/MD: (BEAKER) (test code = TESTED AT [facility] 6720 1538) [facility], [address]: Single Pointed Operator/Techni elsie ID = [id number] for AN MEEKVIKTORIYA RICARDO U/S, [id number] 12:46:00Last Plavix 11/13Labs to be ordered:->Body Fluid Culture (w/Gram Stain, C\T\S)Needs total protein, and fluid albumin for SAAG calculationLabs to be ordered:->CytologyLabs to be ordered:->Cell Cou ntLabs to be ordered:->Other (please add comment)Reason for exam:->new onset ascites[facility] : 1955 Sex: MFINAL REPORT PROCEDURE: Ultrasound-guided paracentesis. INDICATION: 65-year-old man with ascites. DESCRIPTION: After obtaining informed written consent, ultrasound scan of theabdomen identified ascites in the right lower quadrant. The overlying skin was prepped and draped inthe usual, sterile fashion and local 2% lidocaine anesthesia was administered. A 5 Greek catheter was advanced into the peritoneal cavity and 5600 cc of serous fluid was removed. The catheter was removed without immediate complication. Samples were sent for analysis. IMPRESSION:Uncomplicated ultrasound-guided paracentesis with 5600 cc fluid removed. Signed: Charles Floydeport Verified Date/Time: 11/16/2020 12:46:29 Reading Location: [address] Body Reading Room US paracentesis 2020-11-16 12:46:00Interface, External Ris In - 11/16/2020 12:49 PM CSTFINAL REPORT PROCEDURE: Ultrasound-guided paracentesis. INDICATION: 65-year-old man with ascites. DESCRIPTION: After obtaininginformed written consent, ultrasound scan of the abdomen identified ascites in the right lower quadrant. The overlying skin was prepped and draped in the usual, sterile fashion and local 2% lidocaine anesthesia was administered. A 5 Greek catheter was advanced into the peritoneal cavity and 5600 cc of serous fluid was removed. The catheter was removed without immediate complication. Samples were sent for analysis. IMPRESSION:Uncomplicated ultrasound-guided paracentesis with 5600 cc fluid removed. Signed: Charles Floyd MDReport Verified Date/Time: 11/16/2020 12:46:29 Reading Location: [address] Body Reading Room [facility] CenterVskgwjUgvox-6-coywgvrdwib8519-01-10 11:46:00 Test Item Value Reference Range Interpretation Comments A-1 Antitrypsin (test 235.00 mg/dL 90-200 H code = 1825-9) HARVEY (test code = HARVEY) Single Pointed Operator ID - EDASIOperator ID - AAHAMID Lab Interpretation Abnormal (test code = 37774-8) [facility] CenterBcuymcRSBLI-9-VLYFNCWICHS7412-01-10 11:46:00 Test Item Value Reference Range Interpretation Comments ALPHA-1 ANTITRYPSIN (BEAKER) 235.00 mg/dL 90.00-200.00 H (test code = 502) Single Pointed Operator ID - EDASIOperator ID - AAHAMIDSARS-CoV2/RT-PCR (Asymptomatic ONLY) 2020-11-16 11:16:00 Test Item Value Reference Range Interpretation Comments SARS-COV2/RT-PCR Negative Not Detected, (test code = Negative, See 64530-4) external report for linked test SARS-COV-2 [facility] K[facility]INA PERFORMING LAB (test code = 54781-7) HARVEY (test code = Negative result for [...] of the Act. Fact Sheet for Healthcare Providers:https://www.[employer]/sites/default/f luther/product/documents/F act_Sheet_HC_Providers_L nhc_UERD-AmJ-9.pdf Fact Sheet for Healthcare Patients:https://www.[employer]/sites/default/fi les/product/documents/Fa ct_Sheet_Patients_Lyra_S ARS-CoV-2.pdf Performing Laboratory:[facility], [place] [address] [place], [place] [address]ARS-COV2/RT-PCR ([facility])2020-11-16 11:16:00 Test Item Value Reference Range Interpretation Comments SARS-COV2/RT-PCR (test Negative Not Detected, Negative, code = 9883901) See external report for linked test SARS-COV-2 PERFORMING LAB [facility] KARINA (test code = 9817670) Negative result for this test determines that [...] 564(g) of the Act.Fact Sheet for Healthcare Providers:https://www.[employer]/sites/default/files/product/documents/Fact_Shee t_DW_Eojnalspk_Zrxg_VUJA-RvF-8.pdfFact Sheet for Healthcare Patients:https://www.[employer]/sites/default/files/product/ documents/Acwb_Etoxh_Jssudcua_Nryy_DNSA-EpJ-4.pdfPerforming Laboratory:[facility], [place] [address]Oeqmizqmj A antibody, [id number] 11:06:00 Test Item Value Reference Range Interpretation Comments Hep A IgG (test code = Reactive Nonreactive A 70819-8) HARVEY (test code = HARVEY) Single Pointed Operator ID - AAHAMID Lab Interpretation (test Abnormal code = 61842-0) [facility] CenterHEPATITIS A ANTIBODY, [id number] 11:06:00 Test Item Value Reference Range Interpretation Comments HEPATITIS A IGG ANTIBODY (BEAKER) Reactive Nonreactive A (test code = 2797) Single Pointed Operator ID - AAHAMIDAlpha fetoprotein (AFP), tumor [id number] 10:52:00 Test Item Value Reference Range Interpretation Comments Alpha-Fetoprotein <2.0 See_Comment [Automate d (test code = 1834-1) message ] The system which generated this result transmit nova reference range : <10.0 ng/mL. Th e reference range was not used to interpret this result as normal/abnormal . HARVEY (test code = HARVEY) Single Pointed Operator ID - AAHAMID Lab Interpretation Normal (test code = 36552-5) [facility] CenterALPHA FETOPROTEIN (AFP), TUMOR [id number] 10:52:00 Test Item Value Reference Range Interpretation Comments ALPHA-FETOPROTEIN (BEAKER) (test code < ng/mL <10.0 = 1094) Single Pointed Operator ID - AAHAMIDHepatitis B surface glvphkbx2168-73-38 09:52:00 Test Item Value Reference Range Interpretation Comments Hep B S Ab (test code 256.5 See_Comment H [Auto mated = 20424-1) message] The system which generated this result transmit nova reference range : <8.0 mIU/mL. Th e reference range was not used to interpret this result as normal/abnormal . HARVEY (test code = HARVEY) Single Pointed Operator ID - AAHAMID Lab Interpretation Abnormal (test code = 97975-7) [facility] CenterHepatitis B core antibody, [id number] 09:52:00 Test Item Value Reference Range Interpretation Comments Hep B Core Total Ab Nonreactive Nonreactive (test code = 23068-4) HARVEY (test code = HARVEY) Single Pointed Operator ID - AAHAMID Lab Interpretation (test Normal code = 39724-0) [facility] CenterHepatitis A antibody, [id number] 09:52:00 Test Item Value Reference Range Interpretation Comments Hep A IgM (test code = Nonreactive Nonreactive 18305-7) HARVEY (test code = HARVEY) Single Pointed Operator ID - AAHAMID Lab Interpretation (test Normal code = 21959-4) [facility] CenterHEPATITIS A ANTIBODY, [id number] 09:52:00 Test Item Value Reference Range Interpretation Comments HEPATITIS A IGM ANTIBODY (BEAKER) Nonreactive Nonreactive (test code = 498) Single Pointed Operator ID - AAHAMIDHEPATITIS B CORE ANTIBODY, [id number] 09:52:00 Test Item Value Reference Range Interpretation Comments HEPATITIS B CORE TOTAL ANTIBODY Nonreactive Nonreactive (BEAKER) (test code = 497) Single Pointed Operator ID - AAHAMIDHEPATITIS B SURFACE [id number] 09:52:00 Test Item Value Reference Range Interpretation Comments HEPATITIS B SURFACE ANTIBODY 256.5 mIU/mL <8.0 H (BEAKER) (test code = 647) Single Pointed Operator ID - AASHEKHARIDPOCT-GLUCOSE [id number] 08:18:00 Test Item Value Reference Range Interpretation Comments POC-GLUCOSE METER 190 mg/dL 70-110 H : Notified RN/MD: (CONRAD) (test code = TESTED AT [facility] 6792 1388) [facility], [address]: Single Pointed Operator/Techni elsie ID = [id number] for AN RICARDO DAUGHERTY U/S, ABDOMINAL, [id number] 06:31:00Evaluate spleen size and hepatic vesselsAbdomen limited area? Add comment if clarification is needed.- >LiverReason for exam:->New onset ascites - CT with nodular liver contour - please examine hepatic vasculature to r/o PVT [facility] 1955 Sex: MFINAL [...] venous thrombosis.Right pleural effusion. Signed: Elidia Patel [facility] Verified Date/Time: 11/16/2020 06:31:37 U/S, DUPLEX, [id number] 06:31:00Reason for exam:->hepatic vasculature pvt [facility] : 1955 Sex: MFINAL [...] MDReport Verified Date/Time: 11/16/2020 06:31:37 US abdomen [id number] 06:31:00Interface, External Ris In - 11/16/2020 6:34 [...] Signed: Elidia Patel MDReportVerified Date/Time: 11/16/2020 06:31:37 [facility]US [id number] 06:31:00Interface, External Ris In - 11/16/2020 6:34 [...] Signed: Elidia Patel MDReportVerified Date/Time: 11/16/2020 06:31:37 [facility]CT[facility] [id number] 22:44:00 Test Item Value Reference Range Interpretation Comments POC-GLUCOSE METER 191 mg/dL 70-110 H : TESTED A T [facility] 6720 (BEAKER) (test code = [facility], 1538) [address]: Single Pointed Operator/Techni elsie ID = [id number] for YUKI CLEMENT POCT-GLUCOSE [id number] 22:26:00 Test Item Value Reference Range Interpretation Comments POC-GLUCOSE METER 211 mg/dL 70-110 H : TESTED A T [facility] 6720 (BEAKER) (test code = [facility], 1538) [address]: Single Pointed Operator/Techni elsie ID = [id number] for JAMES SPRING POCT-GLUCOSE [id number] 19:18:00 Test Item Value Reference Range Interpretation Comments POC-GLUCOSE METER 122 mg/dL 70-110 H : TESTED A T [facility] 6720 (BEAKER) (test code = [facility], 1538) [address]: Single Pointed Operator/Techni elsie ID = [id number] for OG MARK, SANDHYA HEMODIALYSIS [id number] 19:04:56Puneet Palacios RN 11/15/2020 7:06 PMTx. Completed blood returned with 3ooml ns,tolerated tx,no prolong bleeding,v/s stable, no distress,uf net 3kg, report given to his primary nurse....[facility] CenterPOCT-GLUCOSE [id number] 12:37:00 Test Item Value Reference Range Interpretation Comments POC-GLUCOSE METER 173 mg/dL 70-110 H : TESTED A T [facility] 6720 (BEAKER) (test code = [facility], 1538) [address]: Single Pointed Operator/Techni elsie ID = [id number] for RICARDO COOK Hepatitis B surface [id number] 11:33:00 Test Item Value Reference Range Interpretation Comments HBsAg Screen (test code Nonreactive Nonreactive = 5195-3) HARVEY (test code = HARVEY) Specimen is considered negative for HBsAg. Lab Interpretation (test Normal code = 83427-3) [facility] CenterHEPATITIS B SURFACE [id number] 11:33:00 Test Item Value Reference Range Interpretation Comments HEPATITIS B SURFACE ANTIGEN (2) Nonreactive Nonreactive (BEAKER) (test code = 2585) Specimen is considered negative for HBsAg.HEPATITIS B SURFACE [id number] 11:33:00 Test Item Value Reference Range Interpretation Comments HEPATITIS B SURFACE ANTIBODY 248.1 mIU/mL <8.0 H (BEAKER) (test code = 647) Single Pointed Operator ID - DBHEPATITIS B CORE ANTIBODY, [id number] 11:33:00 Test Item Value Reference Range Interpretation Comments HEPATITIS B CORE TOTAL ANTIBODY Nonreactive Nonreactive (BEAKER) (test code = 497) Single Pointed Operator ID - DBHemoglobin [id number] 11:28:00 Test Item Value Reference Range Interpretation Comments Hemoglobin A1C (test code = 4548-4) 6.1 % 4.3-6.1 Lab Interpretation (test code = Normal 17434-0) [facility] CenterHEMOGLOBIN [id number] 11:28:00 Test Item Value Reference Range Interpretation [...] = 2502-3) HARVEY (test code = HARVEY) Single Pointed Operator ID - DB Lab Interpretation (test Abnormal code = 11569-9) [facility] CenterIRON, TIBC, % SAT. (WITHOUT FERRITIN)2020-11-15 11:11:00 Test Item Value Reference Range Interpretation Comments IRON (BEAKER) (test code = 547) 40.0 ug/dL 40.0-160.0 TOTAL IRON BINDING CAPACITY 166 ug/dL 250-450 L (BEAKER) (test code = 769) IRON % SATURATION (2) (BEAKER) 24 % 20-55 (test code = 2590) Single Pointed Operator ID - DBPOCT-GLUCOSE [id number] 08:18:00 Test Item Value Reference Range Interpretation Comments POC-GLUCOSE METER 204 mg/dL 70-110 H : Notified RN/MD: (ISAACAKER) (test code = TESTED AT [facility] 6720 1538) [facility], [address]: Single Pointed Operator/Techni elsie ID = [id number] for AN RICARDO DAUGHERTY BASIC METABOLIC [id number] 07:13:00 Test Item Value Reference Range Interpretation [...] S NOT APPLICABLE FOR DIALYSIS PATIEN TS. Single Pointed Operator ID - [id number] 07:11:00 Test Item Value Reference Range Interpretation Comments MAGNESIUM (BEAKER) (test code = 2.1 mg/dL 1.6-2.6 627) Single Pointed Operator ID - DBHEPATIC FUNCTION [id number] 07:11:00 Test Item Value Reference Range Interpretation [...] (test code = 15 U/L 6-55 347) Single Pointed Operator ID - DBHepatitis C [id number] 06:59:00 Test Item Value Reference Range Interpretation Comments Hepatitis C Ab (test code = Nonreactive Nonreactive 54845-5) HARVEY (test code = HARVEY) Single Pointed Operator ID - DB Lab Interpretation (test Normal code = 30193-5) [facility] CenterHEPATITIS C [id number] 06:59:00 Test Item Value Reference Range Interpretation Comments HEPATITIS C ANTIBODY (BEAKER) Nonreactive Nonreactive (test code = 367) Single Pointed Operator ID - DBCBC W/PLT COUNT & AUTO [id number] 06:57:00 Test Item Value Reference Range Interpretation [...] PERCENT (BEAKER) (test code = 2801) PROTHROMBIN TIME/[id number] 05:55:00 Test Item Value Reference Range Interpretation [...] mechanical heart valves.RAD, CHEST, 1 VIEW, NON [id number] 01:26:00Reason for exam:->Weight loss, new ascites, volume overloadShould this be performed at the bedside?->Yes [facility] 1955 Sex: MFINAL [...] 70-110 H Performe d by certified GLUBED) 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 [facility] BASIC METABOLIC [id number] 13:42:00 Test Item Value Reference Range Interpretation [...] 8.2 mg/dL 8.0-10.5 N CA) CBC W/AUTO [id number] 13:28:00 Test Item Value Reference Range Interpretation [...] DIFF REQUIRED (test code NO = MDIFF) [id number] 11:56:00 Test Item Value Reference Range Interpretation Comments GLUBED (test code = 132 MG/DL 70-110 H Performe d by certified GLUBED) 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 [facility] Novel Coronavirus 2019 [id number] 20:44:00 Test Item Value Reference Range Interpretation Comments Novel Coronavirus 2019 Inhouse (test Negative Negative code = COVNONPUI) - XR CHEST 2 [id number] 10:48:00 FAX: Espinoza Santillan MD [phone] [place]: St: PRE Name: JANNTROY [facility] : 1955 Age/S: 64/M [address] [place] [address] Blvd Unit#: [id number] Loc: [place] [address] Phys: Espinoza Villagran MD Acct: [id number] Dis Date: Status: PRE [facility] PHONE #: [phone] Exam Date: 06/18/2020957 FAX #: [phone] Reason: PREOP- ESRD EXAMS: CPT CODE: [id number] XR CHEST 2 V 61815 CLINICAL HISTORY: PREOP- ESRD COMPARISON: March 22, [...] CC: Espinoza Villagran MD Technologist: RT Paolo(R) Trnazlenore Date/Time/By: 06/18/2020 (5135) : By: MansiYOS Orig Print D/T: S: 06/18/2020 (3987) PAGE 1 Signed ReportBASIC METABOLIC [id number] 09:12:00 Test Item Value Reference Range Interpretation [...] = 8.0 mg/dL 8.0-10.5 N CA) PROTHROMBIN [id number] 09:06:00 Test Item Value Reference Range Interpretation [...] o prevent recurre nt infarct). THROMBOPLASTIN TIME [id number] 09:06:00 Test Item Value Reference Range Interpretation Comments THROMBOPLASTIN TIME PARTIAL (test Seconds 25.0-39.5 code = PTT) PROTHROMBIN [id number] 09:06:00 Test Item Value Reference Range Interpretation [...] o prevent recurre nt infarct). THROMBOPLASTIN TIME [id number] 09:06:00 Test Item Value Reference Range Interpretation Comments THROMBOPLASTIN TIME 37.2 Seconds 25.0-39.5 N Ther apeutic PARTIAL (test code = Range: 50.4 - 88.3 PTT) Seconds Effective 02/20/2019 CBC W/AUTO [id number] 08:58:00 Test Item Value Reference Range Interpretation [...] REQUIRED (test code NO = MDIFF) URINE [id number] 14:16:00 Test Item Value Reference Range Interpretation [...] S Sulfamethoxazole (test code = 47) CULTURE ([facility]) (test A 80-89 ,000 col/mL code = 1095) Ekaterina albican s POCT-GLUCOSE [id number] 17:07:00 Test Item Value Reference Range Interpretation Comments POC-GLUCOSE METER 168 mg/dL 70-110 H TESTED AT [place] [address] ([facility]) (test code = CIERA Sewell [facility] 1538) 92362 POCT-GLUCOSE [id number] 13:49:00 Test Item Value Reference Range Interpretation Comments POC-GLUCOSE METER 172 mg/dL 70-110 H TESTED AT [place] [address] ([facility]) (test code = CIERA Sewell [facility] 1538) 30546 BASIC METABOLIC [id number] 09:18:00 Test Item Value Reference Range Interpretation [...] H (BEAKER) (test code = 413) POCT-GLUCOSE [id number] 21:43:00 Test Item Value Reference Range Interpretation Comments POC-GLUCOSE METER 175 mg/dL 70-110 H TESTED AT [facility] 67 ([facility]) (test code = [facility] 1538) 39065 POCT-GLUCOSE [id number] 12:42:00 Test Item Value Reference Range Interpretation Comments POC-GLUCOSE METER 113 mg/dL 70-110 H TESTED AT [place] [id number] (BEAKER) (test code = [place] 1538) 677[address] BASIC METABOLIC [id number] 08:22:00 Test Item Value Reference Range Interpretation [...] 0-0 (BEAKER) (test code = 413) POCT-GLUCOSE [id number] 21:40:00 Test Item Value Reference Range Interpretation Comments POC-GLUCOSE METER 159 mg/dL 70-110 H TESTED AT [place] [address] ([facility]) (test code = [facility] 1538) 50122 POCT-GLUCOSE [id number] 17:24:00 Test Item Value Reference Range Interpretation Comments POC-GLUCOSE METER 203 mg/dL 70-110 H TESTED AT [place] [address] ([facility]) (test code = [facility] 1538) 92740 POCT-GLUCOSE [id number] 13:17:00 Test Item Value Reference Range Interpretation Comments POC-GLUCOSE METER 201 mg/dL 70-110 H TESTED AT [place] [address] ([facility]) (test code = [facility] 1538) 17216 POCT-GLUCOSE [id number] 08:11:00 Test Item Value Reference Range Interpretation Comments POC-GLUCOSE METER 199 mg/dL 70-110 H TESTED AT [place] [address] ([facility]) (test code = [facility] 1538) 04123 BASIC METABOLIC [id number] 07:40:00 Test Item Value Reference Range Interpretation [...] 0-0 (BEAKER) (test code = 413) POCT-GLUCOSE [id number] 23:55:00 Test Item Value Reference Range Interpretation Comments POC-GLUCOSE METER 198 mg/dL 70-110 H TESTED AT [facility] 67 ([facility]) (test code = [place] 1538) 26354 POCT-GLUCOSE [id number] 22:53:00 Test Item Value Reference Range Interpretation Comments POC-GLUCOSE METER 205 mg/dL 70-110 H TESTED AT [facility] 6720 ([facility]) (test code = [place] 1538) 68105 POCT-GLUCOSE [id number] 18:28:00 Test Item Value Reference Range Interpretation Comments POC-GLUCOSE METER 252 mg/dL 70-110 H TESTED AT [facility] 6720 (BEAKER) (test code = CIERA Sewell [place] 1538) 09683 POCT-GLUCOSE [id number] 13:01:00 Test Item Value Reference Range Interpretation Comments POC-GLUCOSE METER 118 mg/dL 70-110 H TESTED AT [facility] 6720 (BEAKER) (test code = CEIRA Sewell [place] 1538) 72229 BASIC METABOLIC [id number] 07:03:00 Test Item Value Reference Range Interpretation [...] NOT APPLICABLE FOR DIALYSIS PATIEN TS. POCT-GLUCOSE [id number] 21:53:00 Test Item Value Reference Range Interpretation Comments POC-GLUCOSE METER 189 mg/dL 70-110 H TESTED AT [facility] 6720 (BEAKER) (test code = [facility] Melodie [place] 1538) 023[address] POCT-GLUCOSE [id number] 18:21:00 Test Item Value Reference Range Interpretation Comments POC-GLUCOSE METER 207 mg/dL 70-110 H TESTED AT [facility] 6720 (BEAKER) (test code = [facility] Melodie [place] 1538) 29382 POCT-GLUCOSE [id number] 12:36:00 Test Item Value Reference Range Interpretation Comments POC-GLUCOSE METER 95 mg/dL 70-110 TESTED AT [facility] 6720 (BEAKER) (test code = [place] [address] 1538) BASIC METABOLIC [id number] 09:00:00 Test Item Value Reference Range Interpretation [...] BLOOD CELLS 1 /100 WBC 0-0 H ([facility]) (test code = 413) POCT-GLUCOSE [id number] 21:13:00 Test Item Value Reference Range Interpretation Comments POC-GLUCOSE METER 125 mg/dL 70-110 H TESTED AT [place] [address] ([facility]) (test code = CIERA Sewell [place] [id number]) [address] POCT-GLUCOSE [id number] 13:58:00 Test Item Value Reference Range Interpretation Comments POC-GLUCOSE METER 150 mg/dL 70-110 H TESTED AT [place] [address] ([facility]) (test code = CIERA Sewell [place] [id number]) [address] POCT-GLUCOSE [id number] 09:25:00 Test Item Value Reference Range Interpretation Comments POC-GLUCOSE METER 67 mg/dL 70-110 L Notified Melodie Davila MD/TESTED AT ([facility]) (test code = [place] [id number]) [facility] 7703 0 POCT-GLUCOSE [id number] 09:25:00 Test Item Value Reference Range Interpretation Comments POC-GLUCOSE METER 65 mg/dL 70-110 L Notified Melodie Davila MD/TESTED AT ([facility]) (test code = [place] [address]) [facility] 7703 0 BASIC METABOLIC [id number] 07:54:00 Test Item Value Reference Range Interpretation [...] 0-0 (BEAKER) (test code = 413) POCT-GLUCOSE [id number] 21:31:00 Test Item Value Reference Range Interpretation Comments POC-GLUCOSE METER 119 mg/dL 70-110 H TESTED AT [place] [id number] ([facility]) (test code = [place] 1538) 04509 POCT-GLUCOSE [id number] 17:15:00 Test Item Value Reference Range Interpretation Comments POC-GLUCOSE METER 117 mg/dL 70-110 H TESTED AT [facility] 6720 ([facility]) (test code = [facility] 1538) 39307 POCT-GLUCOSE [id number] 12:55:00 Test Item Value Reference Range Interpretation Comments POC-GLUCOSE METER 76 mg/dL 70-110 TESTED AT [place] [address] ([facility]) (test code = [facility] [address] 1538) BASIC METABOLIC [id number] 08:15:00 Test Item Value Reference Range Interpretation [...] NOT APPLICABLE FOR DIALYSIS PATIEN TS. POCT-GLUCOSE [id number] 08:11:00 Test Item Value Reference Range Interpretation Comments POC-GLUCOSE METER 101 mg/dL 70-110 TESTED AT [place] [address] ([facility]) (test code = [facility] 1538) 32664 CBC (HEMOGRAM ONLY)2019-06-09 06:58:00 Test Item Value [...] CORPUSCULAR HEMOGLOBIN CONC 29.3 GM/DL 32.3-36.5 L ([facility]) (test code = 752) RED CELL DISTRIBUTION WIDTH 17.9 % 11.6-14.4 H ([facility]) (test code = 412) PLATELET COUNT ([facility]) (test 344 K/CU MM 150-450 code = 756) MEAN PLATELET VOLUME ([facility]) 10.1 fL 9.4-12.4 (test code = 754) NUCLEATED RED BLOOD CELLS 0 /100 WBC 0-0 ([facility]) (test code = 413) POCT-GLUCOSE [id number] 20:40:00 Test Item Value Reference Range Interpretation Comments POC-GLUCOSE METER 116 mg/dL 70-110 H TESTED AT [place] [address] ([facility]) (test code = CIERA Sewell [facility] 1538) 13083 POCT-GLUCOSE [id number] 17:32:00 Test Item Value Reference Range Interpretation Comments POC-GLUCOSE METER 122 mg/dL 70-110 H TESTED AT [place] [address] ([facility]) (test code = CIERA Sewell [facility] 1538) 36459 POCT-GLUCOSE [id number] 17:14:00 Test Item Value Reference Range Interpretation Comments POC-GLUCOSE METER 112 mg/dL 70-110 H TESTED AT [place] [address] ([facility]) (test code = CIERA Sewell [facility] 1538) 79965 POCT-GLUCOSE [id number] 16:56:00 Test Item Value Reference Range Interpretation Comments POC-GLUCOSE METER 219 mg/dL 70-110 H TESTED AT [place] [address] ([facility]) (test code = [place] 1538) 20072 POCT-GLUCOSE [id number] 09:50:00 Test Item Value Reference Range Interpretation Comments POC-GLUCOSE METER 117 mg/dL 70-110 H TESTED AT [place] [address] ([facility]) (test code = [place] 1538) 07130 BASIC METABOLIC [id number] 07:14:00 Test Item Value Reference Range Interpretation [...] 0-0 (BEAKER) (test code = 413) POCT-GLUCOSE [id number] 21:59:00 Test Item Value Reference Range Interpretation Comments POC-GLUCOSE METER 78 mg/dL 70-110 TESTED AT [place] [address] (BEAKER) (test code = CIERA Sewell [facility] [address]70[address] 1538) POCT-GLUCOSE [id number] 17:57:00 Test Item Value Reference Range Interpretation Comments POC-GLUCOSE METER 113 mg/dL 70-110 H TESTED AT [place] [address] (BEAKER) (test code = [facility] 1538) 87809 POCT-GLUCOSE [id number] 14:30:00 Test Item Value Reference Range Interpretation Comments POC-GLUCOSE METER 227 mg/dL 70-110 H TEST[facility] AT [place] [address] [facility] (test code = [facility] 1538) 57237 BASIC METABOLIC [id number] 08:20:00 Test Item Value Reference Range Interpretation [...] NOT APPLICABLE FOR DIALYSIS PATIEN TS. POCT-GLUCOSE [id number] 08:01:00 Test Item Value Reference Range Interpretation Comments POC-GLUCOSE METER 139 mg/dL 70-110 H TESTED AT [place] [address] (BEAKER) (test code = CIERA Sewell [facility] 1538) 03361 CBC (HEMOGRAM ONLY)2019-06-07 07:07:00 Test Item Value [...] 0-0 (BEAKER) (test code = 413) POCT-GLUCOSE [id number] 22:52:00 Test Item Value Reference Range Interpretation Comments POC-GLUCOSE METER 271 mg/dL 70-110 H TESTED AT [place] [address] ([facility]) (test code = [facility] Melodie [facility] 1538) 48832 POCT-GLUCOSE [id number] 17:23:00 Test Item Value Reference Range Interpretation Comments POC-GLUCOSE METER 273 mg/dL 70-110 H TESTED AT [place] [address] ([facility]) (test code = [facility] 1538) 69253 POCT-GLUCOSE [id number] 12:33:00 Test Item Value Reference Range Interpretation Comments POC-GLUCOSE METER 107 mg/dL 70-110 TESTED AT [place] [address] ([facility]) (test code = [facility] 8489) 06265 BASIC METABOLIC [id number] 08:59:00 Test Item Value Reference Range Interpretation [...] 0-0 (AKER) (test code = 413) POCT-GLUCOSE [id number] 21:40:00 Test Item Value Reference Range Interpretation Comments POC-GLUCOSE METER 137 mg/dL 70-110 H TESTED AT [place] [address] ([facility]) (test code = [facility] 1538) 82577 POCT-GLUCOSE [id number] 18:27:00 Test Item Value Reference Range Interpretation Comments POC-GLUCOSE METER 219 mg/dL 70-110 H TESTED AT [place] [address] ([facility]) (test code = [facility] 1538) 14694 POCT-GLUCOSE [id number] 13:10:00 Test Item Value Reference Range Interpretation Comments POC-GLUCOSE METER 168 mg/dL 70-110 H TESTED AT [place] [address] ([facility]) (test code = [facility] 1538) 48429 POCT-GLUCOSE [id number] 10:22:00 Test Item Value Reference Range Interpretation Comments POC-GLUCOSE METER 161 mg/dL 70-110 H TESTED AT [place] [address] ([facility]) (test code = [facility] 1538) 87740 BASIC METABOLIC [id number] 04:41:00 Test Item Value Reference Range Interpretation [...] S NOT APPLICABLE FOR DIALYSIS PATIEN TS. [id number] 04:40:00 Test Item Value Reference Range Interpretation [...] 0-0 (BEAKER) (test code = 413) POCT-GLUCOSE [id number] 21:42:00 Test Item Value Reference Range Interpretation Comments POC-GLUCOSE METER 176 mg/dL 70-110 H TESTED AT [facility] 6720 ([facility]) (test code = [facility] 1538) 84359 POCT-GLUCOSE [id number] 14:38:00 Test Item Value Reference Range Interpretation Comments POC-GLUCOSE METER 179 mg/dL 70-110 H TESTED AT [facility] 6720 (BEAKER) (test code = CI[place] Sewell [place] 1538) 56918 POCT-GLUCOSE [id number] 09:07:00 Test Item Value Reference Range Interpretation Comments POC-GLUCOSE METER 155 mg/dL 70-110 H TESTED AT [facility] 6720 (BEAKER) (test code = CIERA Sewell [facility] 1538) 99815 BASIC METABOLIC [id number] 07:49:00 Test Item Value Reference Range Interpretation [...] S NOT APPLICABLE FOR DIALYSIS PATIEN TS. [id number] 07:44:00 Test Item Value Reference Range Interpretation [...] 0-0 (AKER) (test code = 413) POCT-GLUCOSE [id number] 22:34:00 Test Item Value Reference Range Interpretation Comments POC-GLUCOSE METER 246 mg/dL 70-110 H TESTED AT [place] [address] ([facility]) (test code = [place] 1538) 61376 POCT-GLUCOSE [id number] 18:15:00 Test Item Value Reference Range Interpretation Comments POC-GLUCOSE METER 201 mg/dL 70-110 H TESTED AT [place] [address] ([facility]) (test code = CIERA Sewell [facility] 1538) 64294 POCT-GLUCOSE [id number] 13:12:00 Test Item Value Reference Range Interpretation Comments POC-GLUCOSE METER 211 mg/dL 70-110 H TESTED AT [place] [address] ([facility]) (test code = CIERA Sewell [facility] 1538) 91572 POCT-GLUCOSE [id number] 08:17:00 Test Item Value Reference Range Interpretation Comments POC-GLUCOSE METER 204 mg/dL 70-110 H TESTED AT [place] [address] ([facility]) (test code = CI[place] Sewell [place] 1538) 34104 BASIC METABOLIC [id number] 08:05:00 Test Item Value Reference Range Interpretation [...] S NOT APPLICABLE FOR DIALYSIS PATIEN TS. [id number] 08:04:00 Test Item Value Reference Range Interpretation [...] 0-0 (BEAKER) (test code = 413) POCT-GLUCOSE [id number] 22:17:00 Test Item Value Reference Range Interpretation Comments POC-GLUCOSE METER 154 mg/dL 70-110 H TESTED AT [place] [address] ([facility]) (test code = CIERA Sewell [facility] 1538) 48535 POCT-GLUCOSE [id number] 22:14:00 Test Item Value Reference Range Interpretation Comments POC-GLUCOSE METER 172 mg/dL 70-110 H TESTED AT [place] [address] ([facility]) (test code = CIERA Sewell [facility] 1538) 44755 POCT-GLUCOSE [id number] 17:34:00 Test Item Value Reference Range Interpretation Comments POC-GLUCOSE METER 187 mg/dL 70-110 H TESTED AT [place] [address] ([facility]) (test code = CIERA Sewell [facility] 1538) 64199 POCT-GLUCOSE [id number] 12:28:00 Test Item Value Reference Range Interpretation Comments POC-GLUCOSE METER 192 mg/dL 70-110 H TESTED AT [place] [address] ([facility]) (test code = CIERA Sewell [facility] 1538) 00746 POCT-GLUCOSE [id number] 07:43:00 Test Item Value Reference Range Interpretation Comments POC-GLUCOSE METER 132 mg/dL 70-110 H TESTED AT [place] [address] ([facility]) (test code = CIERA Sewell [facility] 1538) 17969 POCT-GLUCOSE [id number] 21:47:00 Test Item Value Reference Range Interpretation Comments POC-GLUCOSE METER 255 mg/dL 70-110 H TESTED AT [place] [address] ([facility]) (test code = CIERA Sewell [facility] 1538) 42453 POCT-GLUCOSE [id number] 11:45:00 Test Item Value Reference Range Interpretation Comments POC-GLUCOSE METER 159 mg/dL 70-110 H TESTED AT [place] [address] ([facility]) (test code = [facility] Melodie [facility] 1538) 94416 [id number] 11:17:00 Test Item Value Reference Range Interpretation Comments FERRITIN ([facility]) (test code = 361) 572 ng/mL 5-275 H IRON, TIBC, % SAT. (WITHOUT FERRITIN)2019-06-01 10:57:00 Test Item Value Reference Range Interpretation Comments IRON (BEAKER) (test code = 547) 15.0 ug/dL 40.0-160.0 L TOTAL IRON BINDING CAPACITY 169 ug/dL 250-450 L (BEAKER) (test code = 769) IRON % SATURATION (2) (BEAKER) 9 % 20-55 L (test code = 2590) POCT-GLUCOSE [id number] 08:44:00 Test Item Value Reference Range Interpretation Comments POC-GLUCOSE METER 170 mg/dL 70-110 H TESTED AT [facility] 6720 (BEAKER) (test code = [place] 1538) 08800 BASIC METABOLIC [id number] 04:42:00 Test Item Value Reference Range Interpretation [...] S NOT APPLICABLE FOR DIALYSIS PATIEN TS. [id number] 03:47:00 Test Item Value Reference Range Interpretation Comments MAGNESIUM (BEAKER) (test code = 2.1 mg/dL 1.6-2.6 627) CBC W/PLT COUNT & AUTO [id number] 03:36:00 Test Item Value Reference Range Interpretation [...] PERCENT (BEAKER) (test code = 2801) POCT-GLUCOSE [id number] 22:05:00 Test Item Value Reference Range Interpretation Comments POC-GLUCOSE METER 91 mg/dL 70-110 TESTED AT [place] [address] ([facility]) (test code = CIERA Sewell [facility] [address]18[address] 1538) POCT-GLUCOSE [id number] 18:37:00 Test Item Value Reference Range Interpretation Comments POC-GLUCOSE METER 102 mg/dL 70-110 TESTED AT [place] [address] ([facility]) (test code = CIERA Sewell [facility] 1538) 89648 POCT-GLUCOSE [id number] 12:26:00 Test Item Value Reference Range Interpretation Comments POC-GLUCOSE METER 113 mg/dL 70-110 H TESTED AT [place] [address] ([facility]) (test code = CIERA Sewell [facility] 1538) 85579 POCT-GLUCOSE [id number] 08:07:00 Test Item Value Reference Range Interpretation Comments POC-GLUCOSE METER 73 mg/dL 70-110 TESTED AT [place] [address] ([facility]) (test code = CIERA Sewell [facility] 63696 1538) BLOOD [id number] 08:01:00 Test Item Value Reference Range Interpretation Comments CULTURE (BEAKER) (test No growth in 5 days code = 1095) BLOOD [id number] 08:01:00 Test Item Value Reference Range Interpretation Comments CULTURE (BEAKER) (test No growth in 5 days code = 1095) CBC W/PLT COUNT & AUTO [id number] 06:59:00 Test Item Value Reference Range Interpretation [...] (BEAKER) (test code = 2801) BASIC METABOLIC [id number] 06:27:00 Test Item Value Reference Range Interpretation [...] S NOT APPLICABLE FOR DIALYSIS PATIEN TS. [id number] 06:18:00 Test Item Value Reference Range Interpretation Comments MAGNESIUM (BEAKER) 1.6 mg/dL 1.6-2.6 Specimen slightly (test code = 627) hemolyzed URINALYSIS W/ REFLEX URINE [id number] 23:41:00 Test Item Value Reference Range Interpretation [...] code = 516) SOURCE(BEAKER) (test code = 5385) POCT-GLUCOSE [id number] 21:42:00 Test Item Value Reference Range Interpretation Comments POC-GLUCOSE METER 139 mg/dL 70-110 H TESTED AT [facility] 6720 (BEAKER) (test code = [place] 1535) 75588 POCT-GLUCOSE [id number] 20:39:00 Test Item Value Reference Range Interpretation Comments POC-GLUCOSE METER 65 mg/dL 70-110 L TESTED AT [facility] 6720 (BEAKER) (test code = CIERA Sewell [facility] 73043 1538) POCT-GLUCOSE [id number] 17:54:00 Test Item Value Reference Range Interpretation Comments POC-GLUCOSE METER 78 mg/dL 70-110 TESTED AT [place] [address] (BEAKER) (test code = CIERA Sewell [facility] 85943 1538) CBC W/PLT COUNT & AUTO [id number] 10:44:00 Test Item Value Reference Range Interpretation [...] 3438) Received comment: User comments: Slide comments:POCT-GLUCOSE [id number] 07:50:00 Test Item Value Reference Range Interpretation Comments POC-GLUCOSE METER 70 mg/dL 70-110 TESTED AT [facility] 6720 (BEAKER) (test code = CIERA Sewell [facility] 66862 1538) BASIC METABOLIC [id number] 06:36:00 Test Item Value Reference Range Interpretation [...] S NOT APPLICABLE FOR DIALYSIS PATIEN TS. [id number] 06:33:00 Test Item Value Reference Range Interpretation Comments MAGNESIUM (BEAKER) (test code = 2.2 mg/dL 1.6-2.6 627) POCT-GLUCOSE [id number] 22:28:00 Test Item Value Reference Range Interpretation Comments POC-GLUCOSE METER 120 mg/dL 70-110 H TESTED AT [place] [address] ([facility]) (test code = [facility] 1538) 98770 POCT-GLUCOSE [id number] 19:33:00 Test Item Value Reference Range Interpretation Comments POC-GLUCOSE METER 166 mg/dL 70-110 H TESTED AT [place] [address] ([facility]) (test code = [facility] 1538) 38993 POCT-GLUCOSE [id number] 13:30:00 Test Item Value Reference Range Interpretation Comments POC-GLUCOSE METER 168 mg/dL 70-110 H TESTED AT [place] [address] ([facility]) (test code = [facility] 1538) 86542 POCT-GLUCOSE [id number] 07:37:00 Test Item Value Reference Range Interpretation Comments POC-GLUCOSE METER 117 mg/dL 70-110 H TESTED AT [place] [address] ([facility]) (test code = [facility] 1538) 72120 BASIC METABOLIC [id number] 06:57:00 Test Item Value Reference Range Interpretation [...] S NOT APPLICABLE FOR DIALYSIS PATIEN TS. [id number] 06:52:00 Test Item Value Reference Range Interpretation [...] RED BLOOD CELLS 0 /100 WBC 0-0 ([facility]) (test code = 413) POCT-GLUCOSE [id number] 21:52:00 Test Item Value Reference Range Interpretation Comments POC-GLUCOSE METER 174 mg/dL 70-110 H TESTED AT [place] [address] ([facility]) (test code = [facility] 1538) [address] POCT-GLUCOSE [id number] 17:58:00 Test Item Value Reference Range Interpretation Comments POC-GLUCOSE METER 151 mg/dL 70-110 H TESTED AT [place] [address] ([facility]) (test code = [facility] 1538) [address] POCT-GLUCOSE [id number] 12:35:00 Test Item Value Reference Range Interpretation Comments POC-GLUCOSE METER 225 mg/dL 70-110 H TESTED AT [place] [address] ([facility]) (test code = [facility] 1538) [address] HEMOGLOBIN [id number] 08:34:00 Test Item Value Reference Range Interpretation Comments HEMOGLOBIN A1C ([facility]) (test code = 6.3 % 4.3-6.1 H 368) POCT-GLUCOSE [id number] 07:56:00 Test Item Value Reference Range Interpretation Comments POC-GLUCOSE METER 141 mg/dL 70-110 H TESTED AT [place] [address] ([facility]) (test code = [facility] 1538) [id number] CBC (HEMOGRAM ONLY)2019-05-28 06:12:00 Test Item Value [...] ([facility]ER) (test code = 413) BASIC METABOLIC [id number] 06:02:00 Test Item Value Reference Range Interpretation [...] NOT APPLICABLE FOR DIALYSIS PATIEN TS. POCT-GLUCOSE [id number] 22:24:00 Test Item Value Reference Range Interpretation Comments POC-GLUCOSE METER 171 mg/dL 70-110 H TESTED AT [facility] 6720 ([facility]) (test code = [place] 1538) [address] HEPATITIS B [id number] 20:01:00 Test Item Value Reference Range Interpretation Comments HEPATITIS B CORE TOTAL ANTIBODY Nonreactive Nonreactive ([facility]) (test code = 497) HEPATITIS B SURFACE ANTIBODY < mIU/mL <8.0 (BEAKER) (test code = 647) HEPATITIS B SURFACE ANTIGEN (2) Nonreactive Nonreactive (BEAKER) (test code = 2585) POCT-GLUCOSE [id number] 17:37:00 Test Item Value Reference Range Interpretation Comments POC-GLUCOSE METER 158 mg/dL 70-110 H TESTED AT [facility] 6720 (BEAKER) (test code = [place] 1538) [id number] CBC (HEMOGRAM ONLY)2019-05-27 16:37:00 Test Item Value [...] (BEAKER) (test code = 413) BASIC METABOLIC [id number] 16:28:00 Test Item Value Reference Range Interpretation [...] NOT APPLICABLE FOR DIALYSIS PATIEN TS. POCT-GLUCOSE [id number] 12:29:00 Test Item Value Reference Range Interpretation Comments POC-GLUCOSE METER 155 mg/dL 70-110 H TESTED AT [facility] 6720 (BEAKER) (test code = [place] 1538) [address] [id number] 09:20:00 Test Item Value Reference Range Interpretation Comments PHOSPHORUS (BEAKER) (test code = 3.4 mg/dL 2.3-4.7 604) [id number] 09:20:00 Test Item Value Reference Range Interpretation Comments MAGNESIUM (BEAKER) (test code = 2.0 mg/dL 1.6-2.6 627) PH, [id number] 08:49:00 Test Item Value Reference Range Interpretation Comments PH ARTERIAL (BEAKER) (test code = 383) 7.35 7.35-7.45 POCT-GLUCOSE [id number] 08:11:00 Test Item Value Reference Range Interpretation Comments POC-GLUCOSE METER 137 mg/dL 70-110 H TESTED AT [facility] 6720 (BEAKER) (test code = [facility] [place] 1538) [id number] BASIC METABOLIC [id number] 03:25:00 Test Item Value Reference Range Interpretation [...] PATIEN TS. CBC W/PLT COUNT & AUTO [id number] 03:11:00 Test Item Value Reference Range Interpretation [...] H PERCENT (BEAKER) (test code = 2801) [id number] 02:48:00 Test Item Value Reference Range Interpretation Comments MAGNESIUM (BEAKER) 2.2 mg/dL 1.6-2.6 Specimen slightly (test code = 627) hemolyzed [id number] 02:48:00 Test Item Value Reference Range Interpretation Comments PHOSPHORUS (BEAKER) 3.9 mg/dL 2.3-4.7 Specimen slightly (test code = 604) hemolyzed PH, [id number] 02:08:00 Test Item Value Reference Range Interpretation Comments PH ARTERIAL (BEAKER) (test code = 383) 7.41 7.35-7.45 RAD, CHEST, 1 VIEW, NON [id number] 22:15:00Reason for exam:->line placementShould this be performed [...] Arredondo Verified Date/Time: 05/26/2019 22:15:38 BASI METABOLIC [id number] 17:25:00 Test Item Value Reference Range Interpretation [...] NOT APPLICABLE FOR DIALYSIS PATIEN TS. POCT-GLUCOSE [id number] 17:09:00 Test Item Value Reference Range Interpretation Comments POC-GLUCOSE METER 233 mg/dL 70-110 H TESTED AT [facility] 67[facility] (test code = [place] 1538) [id number] TROPONIN [id number] 12:31:00 Test Item Value Reference Range Interpretation [...] failure, acidosis, acute neurological disease, and persistent tachyarrhythmia.[id number] 12:26:00 Test Item Value Reference Range Interpretation Comments CALCIUM (BEAKER) (test code = 697) 7.7 mg/dL 8.4-10.2 L [id number] 12:24:00 Test Item Value Reference Range Interpretation Comments POTASSIUM (BEAKER) (test code = 4.4 meq/L 3.5-5.1 379) [id number] 12:24:00 Test Item Value Reference Range Interpretation Comments MAGNESIUM (BEAKER) (test code = 2.2 mg/dL 1.6-2.6 627) [id number] 12:24:00 Test Item Value Reference Range Interpretation Comments SODIUM (BEAKER) (test code = 381) 128 meq/L 136-145 L POCT-GLUCOSE [id number] 12:15:00 Test Item Value Reference Range Interpretation Comments POC-GLUCOSE METER 281 mg/dL 70-110 H TESTED AT [facility] 6720 (BEAKER) (test code = [place] [facility] 1538) [address] PH, [id number] 11:52:00 Test Item Value Reference Range Interpretation Comments PH ARTERIAL (BEAKER) (test code = 383) 7.36 7.35-7.45 RAD, CHEST, 1 VIEW, NON [id number] 08:05:00Reason for exam:->central line placementFINAL REPORT CLINICAL [...] Villagran MDReport Verified Date/Time:05/26/2019 08:05:54 Reading Location: [address] Neuro Reading Room TROPONIN [id number] 06:42:00 Test Item Value Reference Range Interpretation [...] acidosis, acute neurological disease, and persistent tachyarrhythmia.TROPONIN [id number] 06:41:00 Test Item Value Reference Range Interpretation [...] acute neurological disease, and persistent tachyarrhythmia.BASIC METABOLIC [id number] 06:23:00 Test Item Value Reference Range Interpretation [...] NOT APPLICABLE FOR DIALYSIS PATIEN TS. PROTHROMBIN [id number] 06:20:00 Test Item Value Reference Range Interpretation [...] INR is2.5-3.5 for patients wiht mechanical heart valves.[id number] 06:17:00 Test Item Value Reference Range Interpretation Comments PHOSPHORUS (BEAKER) (test code = 4.5 mg/dL 2.3-4.7 604) [id number] 06:17:00 Test Item Value Reference Range Interpretation Comments MAGNESIUM (BEAKER) (test code = 2.4 mg/dL 1.6-2.6 627) CBC W/PLT COUNT & AUTO [id number] 06:03:00 Test Item Value Reference Range Interpretation [...] (test code = 2801) TSH/FREE T4 IF [id number] 22:17:00 Test Item Value Reference Range Interpretation Comments THYROID STIMULATING HORMONE 3.33 uIU/mL 0.35-4.94 (BEAKER) (test code = 772) TROPONIN [id number] 21:59:00 Test Item Value Reference Range Interpretation Comments TROPONIN I (BEAKER) (test code = 1.04 ng/mL 0.00-0.03 [facility]) Troponin I (TnI) levels must be interpreted [...] H (BEAKER) (test code = 700) C-REACTIVE [id number] 21:51:00 Test Item Value Reference Range Interpretation Comments C-REACTIVE PROTEIN (BEAKER) (test 13.88 mg/dL 0.00-0.50 H code = 676) COMPREHENSIVE METABOLIC [id number] 21:51:00 Test Item Value Reference Range Interpretation [...] PATIEN TS. CBC W/PLT COUNT & AUTO [id number] 21:20:00 Test Item Value Reference Range Interpretation [...]
--- NOTE | 2021-05-09 16:49 | ER ---
Nurse's Notes [facility] Name: Benji Villalpando Age: 65 yrs Sex: Male : 1955 Arrival Date: 05/09/2021 Time: 13:39 Bed 17 Private MD: Jack Corley Diagnosis: Balanitis Presentation: 05/09 14:16 Chief complaint: Patient states: Pt was here on 05/07 and diagnosed with Balanitis and kg given Diclofenac, and nystatin ointment and it has gotten worse. Coronavirus screen: Client denies travel out of the [place] in the last 14 days. At this time, unable to obtain information related to travel outside the [place] At this time, the client does not indicate any symptoms associated with coronavirus-19. Ebola Screen: Patient negative for fever greater than or equal to 101.5 degrees Fahrenheit, and additional compatible Ebola Virus Disease symptoms Patient denies exposure to infectious person. Patient denies travel to an Ebola-affected area in the 21 days before illness onset. Initial Sepsis Screen: Does the patient meet any 2 criteria? No. Patient's initial sepsis screen is negative. Does the patient have a suspected source of infection? Yes: No. Patient's initial sepsis screen is negative. Risk Assessment: Do you want to hurt yourself or someone else? Patient reports no desire to harm self or others. Onset of symptoms was April 25, 2021. 14:16 Method Of Arrival: Ambulatory kg 14:16 Acuity: MILADYS 3 kg Triage Assessment: 14:18 General: Appears in no apparent distress. Behavior is calm, cooperative, appropriate kg for age, quiet. Pain: Complains of pain in tip of penis Pain currently is 10 out of 10 on a pain scale. at worst was 10 out of 10 on a pain scale. level that patient reports is acceptable is 3 out of 10 on a pain scale. Quality of pain is described as burning, Pain began 04/25. Historical: - Allergies: 14:18 No Known Allergies; kg - Home Meds: 14:18 clopidogrel 75 mg Oral tab 1 tab once daily [Active]; insulin glargine 100 unit/mL (3 kg mL) Sub-Q inpn Qam [Active]; levothyroxine 88 mcg tab 1 tab once daily [Active]; losartan 25 mg oral tab 1 tab once daily [Active]; midodrine 10 mg oral tab 1 tab 3 times per day for only dialysis tues/thur/sat [Active]; Tradjenta 5 mg oral tab 1 tab once daily [Active]; trazodone 100 mg Oral tab once daily [Active]; senna 8.6 mg Oral tab 2 tabs once daily [Active]; - PMHx: 14:18 chronic kidney disease; Diabetes - NIDDM; CHF; Anemia; Hyperlipidemia; Hypertension; kg Myocardial infarction; Hypothyroidism; RENAL FAILURE; - PSHx: 14:18 heart bypass; pacemaker; fistula; kg - Immunization history:: Adult Immunizations up to date, Client reports receiving the 2nd dose of the Covid vaccine. - Social history:: Smoking status: Patient denies any tobacco usage or history of. Screenin:26 Abuse screen: Denies threats or abuse. Denies injuries from another. Nutritional kg screening: No deficits noted. Tuberculosis screening: No symptoms or risk factors identified. Fall Risk None identified. No fall in past 12 months (0 pts). Secondary diagnosis (15 points) impaired mobility, No IV (0 pts). Ambulatory Aid- Crutches/Cane/Walker (15 pts). Gait- Weak (10 pts.). Mental Status- Oriented to own ability (0 pts). Total Nayak Fall Scale indicates Low Risk Score (25-44 pts). Fall prevention measures have been instituted. Side Rails Up X 2 Placed close to Nursing Station Frequent Obs/Assesments occuring Family Present and informed to notify staff if they need to leave bedside As available Patient and Family Educated on Fall Prevention Program and strategies. Assessment: 16:34 General: Appears in no apparent distress. comfortable, Behavior is calm, cooperative, zb appropriate for age. Pain: Denies pain. Neuro: Level of Consciousness is awake, alert, obeys commands, Oriented to person, place, time. Cardiovascular: Patient's skin is warm and dry. Respiratory: Airway is patent. : Blisters noted Lesions noted Swelling noted at urinary meatus on penis. Derm: Skin is intact. Musculoskeletal:. Vital Signs: 14:16 BP 111 / 58; Pulse 80; Resp 20; Temp 98.2; Pulse Ox 94% ; Weight 72.57 kg (R); Height 5 kg ft. 4 in. (162.56 cm); Pain 10/10; 16:35 BP 119 / 67; Pulse 84; Resp 16; Pulse Ox 98% on R/A; zb 14:16 Body Mass Index 27.46 (72.57 kg, 162.56 cm) kg ED Course: 13:39 Patient arrived in ED. mr 13:39 Jack Corley DO is Private Physician. mr 14:18 Triage completed. kg 14:26 Patient has correct armband on for positive identification. Fall risk band placed. kg 16:01 Kaitlyn Hart, HIRA is Primary Nurse. zb 16:12 Albert Christina NP is PHCP. pm1 16:12 Rigo Millan MD is Attending Physician. pm1 16:48 Brandon Monroe MD is Referral Physician. pm1 17:05 Arm band placed on. zb 17:05 No provider procedures requiring assistance completed. Patient did not have IV access zb during this emergency room visit. Administered Medications: No medications were administered Outcome: 16:48 Discharge ordered by MD. pm1 17:05 Discharged to home ambulatory, with family. zb 17:05 Condition: stable 17:05 Discharge instructions given to patient, family, Instructed on discharge instructions, follow up and referral plans. medication usage, Demonstrated understanding of instructions, follow-up care, medications, Prescriptions given X 2. 17:05 Patient left the ED. zb Signatures: Ksenia Fenton mr Albert Christina NP OPS MANAGER pm1 Kaitlyn Hart RN RN zb Yojana Navarrete RN RN kg
--- NOTE | 2021-05-09 16:49 | EDPHYS ---
Physician Documentation [facility] Name: Benji Villalpando Age: 65 yrs Sex: Male : 1955 Arrival Date: 05/09/2021 Time: 13:39 Bed 17 Private MD: Barney [facility] ED Physician iRgo Millan HPI: 05/09 16:44 This 65 yrs old Male presents to ER via Ambulatory with complaints of Penile pm1 Problem. 16:44 The patient presents with pain and itching to penis. Onset: The symptoms/episode pm1 began/occurred 1 week(s) ago. Modifying factors: The symptoms are alleviated by nothing, the symptoms are aggravated by nothing. Associated signs and symptoms: Pertinent negatives: dysuria, fever. Severity of symptoms: in the emergency department the symptoms are actually worse. The patient has been recently seen at the [facility] Emergency Department, last week, for similar complaints was given a prescription for antibiotics, was given a prescription for pain medications. Patient seen in the ER 2 days ago and was diagnosed with balanitis and provided with a prescription. Patient reports worsening of his balanitis. Historical: - Allergies: 14:18 No Known Allergies; kg - Home Meds: 14:18 clopidogrel 75 mg Oral tab 1 tab once daily [Active]; insulin glargine 100 unit/mL (3 kg mL) Sub-Q inpn Qam [Active]; levothyroxine 88 mcg tab 1 tab once daily [Active]; losartan 25 mg oral tab 1 tab once daily [Active]; midodrine 10 mg oral tab 1 tab 3 times per day for only dialysis tues/thur/sat [Active]; Tradjenta 5 mg oral tab 1 tab once daily [Active]; trazodone 100 mg Oral tab once daily [Active]; senna 8.6 mg Oral tab 2 tabs once daily [Active]; - PMHx: 14:18 chronic kidney disease; Diabetes - NIDDM; CHF; Anemia; Hyperlipidemia; Hypertension; kg Myocardial infarction; Hypothyroidism; RENAL FAILURE; - PSHx: 14:18 heart bypass; pacemaker; fistula; kg - Immunization history:: Adult Immunizations up to date, Client reports receiving the 2nd dose of the Covid vaccine. - Social history:: Smoking status: Patient denies any tobacco usage or history of. ROS: 16:44 Constitutional: Negative for fever, chills, and weight loss, Cardiovascular: Negative pm1 for chest pain, palpitations, and edema, Respiratory: Negative for shortness of breath, cough, wheezing, and pleuritic chest pain, Abdomen/GI: Negative for abdominal pain, nausea, vomiting, diarrhea, and constipation, Back: Negative for injury and pain. 16:44 : Positive for penile pain, and itching, Negative for urinary symptoms. 16:44 Skin: Positive for rash, of the head of penis. 16:44 All other systems are negative. Exam: 16:44 Constitutional: This is a well developed, well nourished patient who is awake, alert, pm1 and in no acute distress. Head/Face: Normocephalic, atraumatic. 16:44 Skin: Warm, dry with normal turgor. Normal color with no rashes, no lesions, and no evidence of cellulitis. MS/ Extremity: Pulses equal, no cyanosis. Neurovascular intact. Full, normal range of motion. 16:44 Eyes: Exam is negative for acute changes, Periorbital structures: appear normal, Extraocular movements: no acute changes, Conjunctiva: normal, no injection, Sclera: no acute changes, icterus, is not appreciated. 16:44 ENT: Mouth: no acute changes, Lips: normal, Oral mucosa: normal, pink and intact, moist. 16:44 Cardiovascular: Rate: normal, Rhythm: regular, Pulses: no pulse deficits are appreciated. 16:44 Respiratory: Exam negative for acute changes, respiratory distress, shortness of breath. 16:44 Abdomen/GI: Inspection: distension, ascites, Palpation: abdomen is soft and non-tender, in all quadrants. 16:44 : Male external genitalia: foreskin retracted and mild balanitis present to the glans. Patient with cauliflower like lesions along the foreskin, Sexual behavior: the patient is not sexually active. 16:44 Neuro: Exam negative for acute changes, Orientation: is normal, Mentation: is normal, Motor: is normal, moves all fours. Vital Signs: 14:16 BP 111 / 58; Pulse 80; Resp 20; Temp 98.2; Pulse Ox 94% ; Weight 72.57 kg (R); Height 5 kg ft. 4 in. (162.56 cm); Pain 10/10; 16:35 BP 119 / 67; Pulse 84; Resp 16; Pulse Ox 98% on R/A; zb 14:16 Body Mass Index 27.46 (72.57 kg, 162.56 cm) kg MDM: 16:28 Patient medically screened. pm1 16:44 Data reviewed: vital signs. Data interpreted: Pulse oximetry: on room air is 98 %. pm1 Interpretation: normal. 16:44 Counseling: I had a detailed discussion with the patient and/or guardian regarding: the pm1 historical points, exam findings, and any diagnostic results supporting the discharge/admit diagnosis, Patient and educated on the care and treatment of balanitis. Patient has not been retracting his foreskin and applying the topical medication to the glans. Patient understands that he needs to perform hygiene and apply the medication directly to the affected area. 18:56 ED course: [place] reviewed. Last tramadol prescription on 12-19-2020. pm1 Administered Medications: No medications were administered Disposition Summary: 05/09/21 16:48 Discharge Ordered Location: Home pm1 Problem: new pm1 Symptoms: have improved pm1 Condition: Stable pm1 Diagnosis - Balanitis pm1 Followup: pm1 - With: Emergency Department - When: As needed - Reason: Worsening of condition Followup: pm1 - With: Private Physician - When: - Reason: Recheck today's complaints, Continuance of care, Re-evaluation by your physician Followup: pm1 - With: Brandon Monroe MD - When: 2 - 3 days - Reason: Recheck today's complaints, Continuance of care, Re-evaluation by your physician Discharge Instructions: - Discharge Summary Sheet pm1 - Balanitis pm1 Forms: - Medication Reconciliation Form pm1 - Thank You Letter pm1 - Antibiotic Education pm1 - Prescription Opioid Use pm1 Prescriptions: - Clotrimazole 1 % Topical Cream - Apply to affected area 1 application by TOPICAL route every 12 hours; 15 gram; pm1 Refills: 0, Product Selection Permitted - Tramadol 50 mg Oral Tablet - take 1 tablet by ORAL route every 8 hours as needed; 12 tablet; Refills: 0, pm1 Product Selection Permitted Addendum: 05/11/2021 13:41 Co-signature as Attending Physician, Rigo Millan MD I agree with the assessment and k dr plan of care. Signatures: Rigo Millan MD MD kdr Albert Christina, BILLPOSTING SUPERVISOR BILLPOSTING SUPERVISOR pm1 Yojana Navarrete, RN RN kg
[2021-05-09 17:10] VITALS: TEMP 98.2
[2021-05-09 17:12] VITALS: BP 119/67; O2SAT 98
== END 2021-05-09 17:05 | disposition home or self-care (01) ==
LOC: ER 13:34
DX: N48.1 Balanitis (principal); E11.22 Type 2 diabetes mellitus with diabetic chronic kidney disease; I12.9 Hypertensive chronic kidney disease with stage 1 through stage 4 chronic kidney disease, or unspecified chronic kidney disease; N18.9 Chronic kidney disease, unspecified; Z79.4 Long term (current) use of insulin; Z99.2 Dependence on renal dialysis
CPT/HCPCS: 99282

== ENCOUNTER 2021-07-28 09:02 | Observation (INO) | payer OTHER ==
[2021-07-17 15:51] LABS: Absolute Lymphocytes (CBC) 0.3 K/uL (0.7-4.9); Basophils % 0.5 % (0-1.3); Hematocrit 26.8 % (39.6-49.0); Lymphocytes % 3.2 % (15.3-44.8); MPV 7.1 fL (7.6-11.3); RBC Red Blood Cell Count 3.04 M/uL (4.33-5.43)
[2021-07-17 15:57] LABS: Protime INR 1.12
--- NOTE | 2021-07-17 16:08 | RAD REPORT ---
EXAM DESCRIPTION: RAD - Chest Pa And Lat (2 Views) - 07/17/2021 3:46 pm CLINICAL HISTORY: PreOp, pending circumcision COMPARISON: October 2019 TECHNIQUE: Frontal and lateral views of the chest were obtained. FINDINGS: The lungs are underinflated. Chronic interstitial pattern has show no overall change. Mode rate bilateral pleural effusions are present larger than the comparison imaging. Lung base atelectasi s changes are present. An acute infiltrate is not suspected. Pulmonary vasculature within normal limi ts. Heart size is normal range for shallow inspiration exam. Sternotomy wires are in place. Trachea is midline. Right-sided os is catheter has been removed. Defib rillator has been placed since prior imaging from an inferior approach. Battery pack is in the lower left lateral chest. No pneumothorax. No acute bony finding noted. No aortic abnormality. IMPRESSION: Moderate bilateral pleural effusions with chronic interstitial lung disease similar to c omparison. Heart size is normal range and vasculature within normal limits. Significant acute failure or volume overload are doubtful.
[2021-07-17 16:09] LABS: Potassium 4.3 mmol/L (3.5-5.1)
[2021-07-17 17:46] LABS: Blood Morphology Comment NOT SEEN (NOT SEEN); Platelet Estimate ADEQ; White Blood Cell Scan OK (OK)
--- NOTE | 2021-07-17 19:16 | RAD REPORT ---
EXAM DESCRIPTION: CT - Pelvis Wo Cont - 07/17/2021 5:58 pm CLINICAL HISTORY: Pre-Op N.48.0 Penile lesion; N47.6 Balanoposthitis COMPARISON: Abdomen Pelvis Wo Contrast dated 11/14/2020 TECHNIQUE: Axial noncontrast 5 millimeter thick images of the pelvis obtained. IV access was unsucce ssful. Sagittal and coronal reformatted images were generated and reviewed. All CT scans are performed using dose optimization technique as appropriate and may include automate d exposure control or mA/KV adjustment according to patient size. FINDINGS: A large volume of ascites is present distending the peritoneal cavity. There is fluid rete ntion in the subcutaneous fatty tissues. Partially filled urinary bladder shows no suspicious finding s. Prostate gland and seminal vesicles are normal range. Imaged bowel loops show no suspicious findin gs. There is moderate stool volume in the colon. Moderate-size fat only left inguinal hernia is present. Small amount of fat extends into the right in guinal canal. Dense arterial tree calcifications are present. Bony degenerative changes are present. Extensive penile vascular calcifications are present. History is penile lesion. CT imaging does not h ave the adequate resolution to discern any specific penile mass. Small lymph nodes up to 16 mm in siz e are present along the left iliac chain at the external iliac common femoral junction. Small bilater al cervical lymph nodes are present also up to 16 mm in size. No bulky lymphadenopathy along the leona c chains or distal most aorta. IMPRESSION: CT imaging shows nonspecific bilateral inguinal lymph nodes and distal left external lisbet ac chain lymph nodes. No bulky lymphadenopathy identified. Large amount of ascites distending the peritoneal cavity. Patient has fluid retention in the subcutan eous fatty tissues as well. Additional nonacute findings are detailed in the body of the report.
[2021-07-28] MEDS ORDERED: NA CHLORIDE 0.9% 500 ML ONE (09:52)
[2021-07-28] MEDS ORDERED: CEFAZOLIN/SWI 1gm 2 GM/20 ML SYR ONE (10:01)
[2021-07-28] MEDS: BUPIVACAINE 0.25% PF 30 ML VIAL ONE ×2 (10:13→11:20)
[2021-07-28] MEDS: BACITRACIN OINTMENT 14 GM TUBE TOP ONE ×2 (10:13→13:10)
[2021-07-28] MEDS ORDERED: LIDOCAINE 1% MPF 30 ML VIAL ONE (10:20)
[2021-07-28] MEDS ORDERED: FENTANYL CITR 100 MCG/2 ML ONE (10:40)
[2021-07-28] MEDS ORDERED: MIDAZOLAM HCL 2 MG/2 ML INJ ONE (10:40)
[2021-07-28] MEDS ORDERED: propofoL 200 MG/20 ML VIAL IV ONE (10:40)
[2021-07-28] MEDS ORDERED: ONDANSETRON 4 MG/2 ML VIAL ONE (10:41)
[2021-07-28] MEDS ORDERED: LIDOCAINE 2% MPF 5 ML VIAL ONE (11:01)
[2021-07-28] MEDS ORDERED: NS 0.9% VIAL 10 ML ONE ×2 (11:13→11:55)
[2021-07-28] MEDS ORDERED: Phenylephrine HCl 10 MG/ML 1 ML VIAL ONE (11:13)
[2021-07-28] MEDS ORDERED: CISATRACURIUM INJECTION 2 MG/ML (10 ML Vial) IV ONE (13:18)
[2021-07-28] MEDS ORDERED: CODEINE 30MG/APAP 300MG TAB PO PRN (13:28)
[2021-07-28] MEDS: HYDROMORPHONE HCL 1 MG/ML INJ ONE ×2 (13:45→13:50)
[2021-07-28] MEDS ORDERED: SUCCINYLCHOLINE 20 MG/ML (10 ML) IV ONE (13:45)
[2021-07-28] MEDS ORDERED: MORPHINE 4 MG/ML SYR ONE (14:05)
[2021-07-28] MEDS ORDERED: CODEINE 30MG/APAP 300MG TAB ONE (14:38)
[2021-07-28] MEDS ORDERED: ALBUTEROL 2.5 MG/3 ML NEB SOL ONE (16:36)
--- NOTE | 2021-07-28 17:05 | RAD REPORT ---
EXAM DESCRIPTION: RAD - Chest Single View - 07/28/2021 4:39 pm CLINICAL HISTORY: RULE OUT ASPIRATION COMPARISON: July 17 two view chest TECHNIQUE: AP portable chest image was obtained 07/28/2021 4:39 pm . FINDINGS: Bilateral pleural effusions, right greater than left with bilateral lung base parenchymal opacification. These findings are unchanged from the pre-surgical July 17 study. There are no fi ndings convincing for acute aspiration pneumonia. No acute failure or volume overload. The heart size is prominent but stable. Upper lobe vasculature w ithin normal limits. Defibrillator is in place. CABG surgical changes are noted. No pneumothorax. No acute bony abnormality seen. No acute aortic findings suspected. IMPRESSION: Chronic bilateral pleural effusions and lung base parenchymal opacification similar to t he pre-surgical July 17 imaging. No convincing evidence for aspiration pneumonia.
[2021-07-28] MEDS ORDERED: ACETAMINOPHEN 500 MG TAB PO PRN (17:18)
[2021-07-28] MEDS ORDERED: ONDANSETRON 4 MG/2 ML VIAL IV PRN (17:18)
[2021-07-28] MEDS: MORPHINE 2 MG/ML SYR IV PRN (20:25)
[2021-07-28 21:18] VITALS: BMI 27.4
--- NOTE | 2021-07-28 22:06 | PN ---
Chief Complaint: Mild dyspnea. History Of Present Illness: Mr. Villalpando is a 65-year-old gentleman with multiple medical comorbidities including ESRD on hemodialysis, last completed yesterday. He underwent partial penectomy today christiane use of a fungating lesion emanating from within the prepuce with necrosis of the glans penis suggesti ve of the potential for penile carcinoma, the total of which was causing him significant pain and dis tress. Intraoperatively, the patient had a transient period of hypoxia associated with laryngeal mas k airway placement and use, but this was converted to endotracheal tube intubation and an OG tube was placed for gastric decompression. Upon placement of the OG tube, large volume of very dark feculent appearing contents was aspirated from within his gastric cavity consistent with either a degree of g astroparesis or other underlying issue. In the postoperative period while being observed in PACU, he had persistent desaturation events that were mild and responded to encouraging him to breathe more d eeply. As a result, chest x-ray was obtained, which did not show any acute evidence of an aspiration pneumonia, but given his significant degree of medical complexity, consideration for observation and medical management was given. In the PACU, he was given an albuterol nebulizer treatment. Despite this, his oxygen saturations wou ld continue to periodically decline when he would drift off to sleep. Impression: A 65-year-old gentleman with multiple medical comorbidities including end-stage renal di sease on hemodialysis, with gastroparesis and possible aspiration event intraoperatively, now with tr ansient intermittent hypoxic episodes. The hospitalist, Dr. Phelps, has agreed to consult on the patient for management of his respiratory iss ues, and will observe him overnight with anticipated discharge in the morning. We will continue him on discharge with the Bactrim antimicrobial tablet taken on the day of dialysis after dialysis has be en completed. Additional narcotic pain medication will be provided on discharge, likely Dilaudid, wh ich has less metabolites that would accumulate given his end-stage renal disease. Follow up as previ ously recommended in 2 to 3 weeks to discuss the results of the pathology and for urethral Medina cath eter removal. WR/MODL Voice ID: [id number] Report ID: [id number]
--- NOTE | 2021-07-29 00:05 | OP ---
Date of Procedure: 07/28/2021 Surgeon: MATT CREWS Preoperative Diagnoses: 1.Phimosis. 2.Penile pain. 3.Penile lesion suspicious for squamous cell carcinoma of the penis versus HPV related genital warts . Postoperative Diagnoses: 1.Phimosis. 2.Penile pain. 3.Penile lesion suspicious for squamous cell carcinoma of the penis versus HPV related genital warts . 4.Necrotic glans penis. Principle Procedure: 1.Penile block. 2.Dorsal slit and examination under anesthesia. 3.Partial/distal penectomy. Indication For Procedure: Mr. Villalpando presented to the [facility]rology [facility] with severe pain associated with a densely phimotic phallus with nodularity beneath and evidence of lesions consistent with possible HPV related genital warts versus penile carcinoma. Because of strong suspicion that this was carcino ma related, I had the patient obtain a CT scan. He is dialysis dependent and we were arranging the C T scan to occur prior to his dialysis, but unfortunately, they were unable to obtain IV access suffic ient to give him an IV contrast scan as desired and evaluation of his penis and pelvic lymph nodes. Initially, an MRI was ordered, but he could not get an MRI due to having a pacemaker. As a result, C T scan was performed without contrast and revealed the following findings on 07/17/2021. Impression: Bilateral nonspecific inguinal adenopathy and distal left external iliac adenopathy. No bulky inge opathy identified. Large amount of ascites distending the peritoneal cavity with fluid retention in the subcutaneous fatty tissues as well. Extensive penile vascular calcifications present, but unfort unately insufficient resolution to discern the degree of any penile mass. The maximum size of the ly mph nodes was 16 mm along the left iliac chain at the external iliac common femoral junction. As a result, he was counseled about the potential need for excisional biopsy of a lesion versus parti al penectomy, and he commented that given his degree of pain, he had no further need for his phallus and to just take the whole thing off. Procedure In Detail: The patient was consented in the preoperative holding area before being transfe rred to the operative suite where general anesthesia was induced. He was given 1.5 g Ancef IV antimi crobial prophylaxis calculated specifically relative to his weight and dialysis dependence. Pneumobo ots was provided for DVT prophylaxis. He was placed supine on the operative table and his genitalia were prepped using Betadine after being shaved accordingly. The procedure was begun using a 1:1 mixt ure of 0.25% Marcaine and 1% lidocaine plain instilled in the region of the neurovascular bundles jan aterally infrapubically. Then, an examination was performed, attempting to retract the foreskin and visualize the glans beneath. Extensive frondular and nodular appearing foul-smelling lesions emerged from the inner aspect of the foreskin, but the glans was still not visible. As a result, I dilated the opening slightly using a clamp and performed a dorsal slit in order to further visualize the glan s. Once the dorsal slit was performed, I was able to completely retract the foreskin and visualize t he glans. It was completely necrotic with fibrinous change covering the entirety of the surface of t he glans down to the coronal margin. The gland itself was also very hard and nodular to palpation. As a result, I placed a #1 PDS suture through the glans as a traction suture and placed the thumb of a glove over it, tying another #1 PDS suture at the margin of the proposed area of resection. I then further retracted the shaft skin, which had already been incised using a 15 blade earlier prior to t he dorsal slit, and I placed a half-inch Bronwood drain at the base as a tourniquet. I then incised t hrough the tunica and divided across it as well as the urethra sharply leaving at least several mm of tissue as a margin. Approximately the distal 1/3 of the phallus was excised with the incision point beneath the suarez of the glans. The specimen was sent for pathologic analysis. We then exchanged our gloves, removed the towels that were pre-placed to avoid contamination of the operative field, an d we employed a new set of instruments in order to complete the reconstruction. The area was copious ly irrigated, and then using 3-0 PDS suture in an interrupted erukjg-kd-rtlab fashion, the corporal b odies were oversewn for hemostasis. After about 8 minutes of tourniquet time, the tourniquet was rem zafar and there was no active bleeding except from the cut edge of the urethra as expected. I then sp atulated the urethra ventrally about an additional 1 cm in length and matured the shaft skin to the s patulated urethra in an interrupted fashion using 4-0 PDS suture. On the dorsal surface, I utilized a 3-0 Vicryl suture and to suture the shaft skin subcutaneously over the oversewn corporal bodies bef ore maturing the skin to the dorsal half of the urethra again using interrupted 4-0 PDS suture. Any additional skin was then closed using 4-0 Monocryl suture. In the end, the urethra was matured nicel y, and an 18-Armenian Medina catheter was placed into his bladder with ease with return of clear yellow urine. 15 cc of sterile water was placed in the balloon. Iodoform gauze/Xeroform was applied over t he urethra and the skin around the catheter. The catheter was secured to his thigh using a StatLock, and a dressing was applied around it. The patient was then awakened from general anesthesia, transf erred to a stretcher, and then transferred to the recovery room in good condition. Complications: None. Discharge Disposition: He should keep the urethral Medina catheter for at least 2 to 3 weeks and foll ow up in Urology Clinic to have it removed as well as to discuss the results of the pathology. I cou nseled the patient and his family that when the Xeroform gauze falls away or when it is removed tomor row morning, he can then keep it clean by sponge bathing and then applying bacitracin around the cath eter at least twice a day. The phallus was significantly retracted even prior to the partial penecto my and so essentially retracts within the infrapubic fat pad at this point. An additional prescripti on for Bactrim single strength tablets once after each dialysis session will be continued. PEBBLES/MODL Voice ID: [id number] Report ID: [id number]
[2021-07-29] MEDS: MORPHINE 2 MG/ML SYR IV PRN (04:13)
[2021-07-29 06:11] LABS: Absolute Lymphocytes (CBC) 0.2 K/uL (0.7-4.9); Basophils % 0.3 % (0-1.3); Hematocrit 26.9 % (39.6-49.0); Lymphocytes % 1.8 % (15.3-44.8); MPV 7.5 fL (7.6-11.3); RBC Red Blood Cell Count 2.96 M/uL (4.33-5.43)
[2021-07-29 06:28] LABS: Albumin 2.2 g/dL (3.4-5.0); Bilirubin Total 0.3 mg/dL (0.2-1.0); Potassium 4.3 mmol/L (3.5-5.1); Protein, Total 6.9 g/dL (6.4-8.2)
[2021-07-29 08:22] LABS: Anisocytosis 1+; Blood Morphology Comment NOTED (NOT SEEN); Hypochromasia 1+; Platelet Estimate ADEQ; Polychromasia 1+; Target Cells FEW; White Blood Cell Scan OK (OK)
[2021-07-29 09:19] VITALS: O2SAT 93
[2021-07-29 09:38] VITALS: BP 103/58; TEMP 98.1
--- NOTE | 2021-08-13 17:44 | P.HP ---
Certification for Inpatient Patient admitted to: Observation With expected LOS: <2 Midnights Patient will require the following post-hospital care: None Practitioner: I am a practitioner with admitting privileges, knowledge of patient current condition, hospital course, and medical plan of care. Services: Services provided to patient in accordance with Admission requirements found in Title 42 Section 412.3 of the Code of Federal Regulations Patient History Date of Service: 07/28/21 Reason for admission: PENECTOMY History of Present Illness: Patient is a 65-year-old gentleman who was admitted for a penectomy. Patient has ESRD. Patient had a necrotic infection of the penis. Patient was taken to the operating room and had a partial penectomy. Patient was going to be discharge; however, oxygen saturations decreased into the 80s. The family did not feel comfortable taking the patient home so we admitted him for observation to the hospital. Allergies No Known Drug Allergies Allergy (Verified 04/27/19 10:28) Unknown No Known Allergies Allergy (Uncoded 02/10/19 18:08) Unknown Home Medications: Aspirin Chewable [Aspirin Chewable*] 81 mg PO DAILY 04/08/19 Atorvastatin Calcium 40 mg PO DAILY 04/08/19 Clopidogrel Bisulfate [Clopidogrel] 75 mg PO DAILY 04/08/19 Insulin Glargine Human [Lantus*] 20 units SQ BEDTIME 04/08/19 Linagliptin [Tradjenta] 5 mg PO DAILY 04/08/19 Trazodone [Desyrel*] 50 mg PO BEDTIME 04/08/19 LIDOCAINE 2% JELLY, 5mL [Xylocaine 2% Jelly*] 5 ml MM PRN PRN 07/17/21 Lactulose 20 gm PO TID 07/17/21 Levothyroxine [Synthroid*] 125 mcg PO [id number] 07/17/21 Midodrine HCl 10 mg PO T,TH,S 07/17/21 Sennosides [Senna Lax] 2 tab PO DAILY 07/17/21 Sevelamer HCl [Renagel] 800 mg PO TIDWM 07/17/21 Amox/K Clav [Augmentin 600 MG/5 ML Susp] 5 ml PO DAILY #50 ml 07/29/21 - Past Medical/Surgical History Diabetic: Yes -: IDDM -: HTN -: hyperlipidemia -: ME -: anemia -: Kidney failure stage 4 -: cardiac stents - Family History Father Medical History: Diabetes Mother Medical History: Diabetes Notes: no hx of illness Sister Medical History: Diabetes Notes: 2 sisters, both from complications of diabetes - Social History Alcohol use: No CD- Drugs: No Caffeine use: No Review of Systems 10-point ROS is otherwise unremarkable Physical Examination - Vital Signs Temperature: 98.1 F Blood Pressure: 103/58 Pulse: 84 Respirations: 20 Pulse Ox (%): 91 - Physical Exam General: Alert, In no apparent distress, Oriented x3 HEENT: Atraumatic, PERRLA, Mucous membr. moist/pink, EOMI, Sclerae nonicteric Neck: Supple, 2+ carotid pulse no bruit, No LAD, Without JVD or thyroid abnormality Respiratory: Clear to auscultation bilaterally, Normal air movement Cardiovascular: Regular rate/rhythm, Normal S1 S2 Gastrointestinal: Normal bowel sounds, Soft and benign, Non-distended, No tenderness Musculoskeletal: No clubbing, No swelling, No tenderness Integumentary: No rashes Neurological: Normal speech, Normal tone, Abnormal strength Male Exam - Male Exam Penile exam: Other (PENECTOMY) Assessment & Plan - Problems (Diagnosis) (1) Cellulitis and necrosis of penis Status: Acute (2) Acute kidney injury superimposed on CKD Status: Acute (3) Congestive heart failure Onset Date: 04/11/18 Status: Acute Qualifiers: (4) Dyspnea Onset Date: 02/28/15 Status: Acute (5) Hypotension Onset Date: 04/11/18 Status: Acute Qualifiers: (6) Myocardial infarction Onset Date: 02/28/15 Status: Acute Qualifiers: (7) Obesity (BMI 30.0-34.9) Status: Acute (8) Diabetes mellitus Onset Date: 02/28/15 Status: Chronic (9) Hyperlipidemia Onset Date: 02/28/15 Status: Chronic Qualifiers: (10) Hypertension Onset Date: 02/28/15 Status: Chronic - Plan 1. Continue with IV antibiotic 2. Continue with local wound care 3. Wound care consultation/urological consultation 4. ESRD 5. Monitor CBC 6. Strict blood sugar monitoring 7. Pain control 8. Monitor oxygenation 9. GI and DVT prophylaxis Discharge Plan: Home Plan to discharge in: 24 Hours - Advance Directives Does patient have a Living Will: Yes Does patient have a Durable POA for Healthcare: Yes - Code Status/Comfort Care Code Status Assessed: Yes Code Status: Full Code Critical Care: No Time Spent Managing PTS Care (In Minutes): 35
--- NOTE | 2021-08-17 04:39 | P.DS ---
Discharge Date: 07/29/21 Disposition: ROUTINE DISCHARGE Discharge Condition: FAIR Reason for Admission: PENECTOMY Consultations: Urology/nephrology - Problems (1) Cellulitis and necrosis of penis Status: Acute (2) Acute kidney injury superimposed on CKD Status: Acute (3) Congestive heart failure Onset Date: 04/11/18 Status: Acute Qualifiers: (4) Dyspnea Onset Date: 02/28/15 Status: Acute (5) Hypotension Onset Date: 04/11/18 Status: Acute Qualifiers: (6) Myocardial infarction Onset Date: 02/28/15 Status: Acute Qualifiers: (7) Obesity (BMI 30.0-34.9) Status: Acute (8) Diabetes mellitus Onset Date: 02/28/15 Status: Chronic (9) Hyperlipidemia Onset Date: 02/28/15 Status: Chronic Qualifiers: (10) Hypertension Onset Date: 02/28/15 Status: Chronic Brief History of Present Illness: Patient is a 65-year-old gentleman who was admitted for a penectomy. Patient has ESRD. Patient had a necrotic infection of the penis. Patient was taken to the operating room and had a partial penectomy. Patient was going to be discharge; however, oxygen saturations decreased into the 80s. The family did not feel comfortable taking the patient home so we admitted him for observation to the hospital. Hospital Course: Patient has done well during hospitalization and is stable for discharge with outpatient follow-up for hemodialysis. Vital Signs/Physical Exam: Temp Pulse Resp BP Pulse Ox 98.1 F 84 20 103/58 L 91 08/17/21 04:37 08/17/21 04:37 08/17/21 04:37 08/17/21 04:37 08/17/21 04:37 General: Alert, In no apparent distress, Oriented x3 Laboratory Data at Discharge: WBC 11.10 K/uL (4.3-10.9) H D 07/29/21 05:54 Hgb 8.5 g/dL (13.6-17.9) L 07/29/21 05:54 Hct 26.9 % (39.6-49.0) L 07/29/21 05:54 Plt Count 218 K/uL (152-406) D 07/29/21 05:54 PT 12.9 SECONDS (9.5-12.5) H 07/17/21 15:38 INR 1.12 07/17/21 15:38 APTT 30.6 SECONDS (24.3-36.9) 07/17/21 15:38 Sodium 138 mmol/L (136-145) 07/29/21 05:54 Potassium 4.3 mmol/L (3.5-5.1) 07/29/21 05:54 BUN 26 mg/dL (7-18) H 07/29/21 05:54 Creatinine 4.01 mg/dL (0.55-1.3) H 07/29/21 05:54 Glucose 188 mg/dL (74-106) H 07/29/21 05:54 Total Bilirubin 0.3 mg/dL (0.2-1.0) 07/29/21 05:54 AST 20 U/L (15-37) 07/29/21 05:54 ALT 8 U/L (12-78) L 07/29/21 05:54 Alkaline Phosphatase 116 U/L (45-117) 07/29/21 05:54 Home Medications: Aspirin Chewable [Aspirin Chewable*] 81 mg PO DAILY 04/08/19 Atorvastatin Calcium 40 mg PO DAILY 04/08/19 Clopidogrel Bisulfate [Clopidogrel] 75 mg PO DAILY 04/08/19 Insulin Glargine Human [Lantus*] 20 units SQ BEDTIME 04/08/19 Linagliptin [Tradjenta] 5 mg PO DAILY 04/08/19 Trazodone [Desyrel*] 50 mg PO BEDTIME 04/08/19 LIDOCAINE 2% JELLY, 5mL [Xylocaine 2% Jelly*] 5 ml MM PRN PRN 07/17/21 Lactulose 20 gm PO TID 07/17/21 Levothyroxine [Synthroid*] 125 mcg PO [id number] 07/17/21 Midodrine HCl 10 mg PO T,TH,S 07/17/21 Sennosides [Senna Lax] 2 tab PO DAILY 07/17/21 Sevelamer HCl [Renagel] 800 mg PO TIDWM 07/17/21 Amox/K Clav [Augmentin 600 MG/5 ML Susp] 5 ml PO DAILY #50 ml 07/29/21 New Medications: Amox/K Clav [Augmentin 600 MG/5 ML Susp] 5 ml PO DAILY #50 ml Physician Discharge Instructions: OK TO DC IV AND DC HOME FOLLOW-UP WITH PRIMARY CARE PROVIDER IN 1-2 WEEKS FOLLOW-UP WITH UROLOGY IN 1-2 WEEKS; patient will follow with Nephrology for hemodialysis RETURN TO THE ER IF symptoms worsen CALL or TEXT DR. MUNGUIA AT [phone] IF ANY QUESTIONS REGARDING HOSPITAL STAY. PLEASE CALL THE FLOOR AT [phone] IF ANY MEDICATION OR NURSING QUESTIONS. Diet: Renal Activity: Ad hannah Followup: Brandon Monroe [ACTIVE - CAN ADMIT] - Time spent managing pt's care (in minutes): 35
== END 2021-07-29 14:19 | disposition home or self-care (01) ==
LOC: OR 09:02 → 2ND 18:16 → UNDODISOB 19:56
PROVIDERS: ADMIT Hospitalist; ATTEND Hospitalist
PROC: 0VBS0ZZ Excision of Penis, Open Approach (ICD-10-PCS; principal; 2021-07-28 10:45)
DX: E11.52 Type 2 diabetes mellitus with diabetic peripheral angiopathy with gangrene (principal); I96 Gangrene, not elsewhere classified; N48.22 Cellulitis of corpus cavernosum and penis; A63.0 Anogenital (venereal) warts; N47.1 Phimosis; J95.88 Other intraoperative complications of respiratory system, not elsewhere classified; R09.02 Hypoxemia; Y65.8 Other specified misadventures during surgical and medical care; Y92.234 Operating room of hospital as the place of occurrence of the external cause; I13.2 Hypertensive heart and chronic kidney disease with heart failure and with stage 5 chronic kidney disease, or end stage renal disease; I50.20 Unspecified systolic (congestive) heart failure; E11.22 Type 2 diabetes mellitus with diabetic chronic kidney disease; N18.6 End stage renal disease; Z99.2 Dependence on renal dialysis; G89.29 Other chronic pain; I95.9 Hypotension, unspecified; D64.9 Anemia, unspecified; I25.119 Atherosclerotic heart disease of native coronary artery with unspecified angina pectoris; E11.43 Type 2 diabetes mellitus with diabetic autonomic (poly)neuropathy; K31.84 Gastroparesis; E03.9 Hypothyroidism, unspecified; I25.2 Old myocardial infarction; E78.2 Mixed hyperlipidemia; F41.0 Panic disorder [episodic paroxysmal anxiety]; L98.499 Non-pressure chronic ulcer of skin of other sites with unspecified severity; E66.9 Obesity, unspecified; Z68.30 Body mass index [BMI] 30.0-30.9, adult; Z95.0 Presence of cardiac pacemaker; Z95.1 Presence of aortocoronary bypass graft; Z95.5 Presence of coronary angioplasty implant and graft; Z79.4 Long term (current) use of insulin; Z87.891 Personal history of nicotine dependence; Z20.822 Contact with and (suspected) exposure to COVID-19; Z83.3 Family history of diabetes mellitus
CPT/HCPCS: 54120; 93005; 85025 ×2; 80048; 36415 ×2; 85610; 82947 ×3; 88300; 85730; 80053; 72192; 71045; 71046; U0003 ×2; J2704; J0330; J2370; J2250; J3010; J2270 ×2; J1170; J0690; J7040; J2405 ×2; G0379; G0378 ×2

== ENCOUNTER 2021-10-08 14:05 | Emergency (ER) | payer OTHER ==
--- OUTSIDE RECORDS SUMMARY | 2021-10-08 14:14 | XMS REPORT | Continuity of Care Document ---
:1955 Author Organization [facility] t Address [address] [place] [address] Care Team Providers Name Role Phone ISABELLA COFFMAN NITIN Primary Care Physician Unavailable Humberto Villagran Attending Clinician Unavailable NACHO CANTOR Attending Clinician Unavailable MARY PERRY Attending Clinician Unavailable Harshad ZAMARRIPA Attending Clinician Unavailable Ez KOHLER Attending Clinician Unavailable Melodie BERRY Attending Clinician Unavailable DUKE Attending Clinician Unavailable Corrie_A_AH Attending Clinician Unavailable Graciela HEWITT Attending Clinician Unavailable RODRIGUE Attending Clinician Unavailable LAUREN Admitting Clinician Unavailable NACHO CANTOR Admitting Clinician Unavailable KNOW Admitting Clinician Unavailable SHIN ARAIZA Admitting Clinician Unavailable ISAAC Admitting Clinician Unavailable Jony-Cynthiao_A_AH Admitting Clinician Unavailable Graciela HEWITT Admitting Clinician Unavailable Payers Payer Name Policy Type Policy Number Effective Date Expiration Date [facility] [id number] 2019 00:00:00 [facility] [id number] 2019 00:00:00 WE[employer] STE[employer] [id number] 2020 STAR PLUS 00:00:00 [place] - [id number] 2019 TEXINES[place]US 00:00:00 (MEDICARE REPLACEMENT/ADVANT AGE - HMO) Problems This patient has no known problems. Allergies, Adverse Reactions, Alerts Allergy Allergy Status Severity Reaction(s) Onset Inactive Treating Comm ents Source Name Type Date Date Clinician No Known DA Active U 0 [facility] Clear s 00:00: Padron 00 [facility] No Known DA Active U [facility] Allergie 5-16 Clear s 00:00: Padron 00 [facility] NO KNOWN Drug Active Univers ALLERGIE Class [facility] NO KNOWN Allergy Active [facility] ALLERGIE S Medications Ordered Filled Start Stop Current Ordering Indication Dosage Frequency Signature Comments Components Source Medication Medication Date Date Medication? Clinician (SIG) Name Name Aspirin 81 Aspirin 81 Yes Isabella [address] [facility] Clopidogrel Clopidogrel Yes Isabella [address] [facility] Bisulfate Bisulfate [facility] Basaglar Basaglar Yes Isabella inject [address] [facility] KwikPen KwikPen [place] units [facility] Tradjenta Tradjenta Yes Isabella [address] [facility] Senna Senna Yes Isabella [address] [facility] at bedtime [facility] Lantus Lantus Yes Isabella as [facility] SoloStar SoloStar [facility] directed [facility] Aspirin Aspirin Yes Isabella TAKE 1 [facility] [place] TABLET BY [facility] EVERY DAY [facility] Atorvastati Atorvastati Yes Isabella TAKE [address] [facility] n Calcium n Calcium [place] TABLET BY [facility] BEDTIME [facility] Midodrine Midodrine Yes Isabella [address] [facility] HCl HCl [facility] Lorazepam Lorazepam Yes Isabella [address] [facility] [place] as needed [facility] Synthroid Synthroid Yes Isabella [address] [facility] on an [facility] stomach in l the [facility] morning ent Clinics Atorvastati Atorvastati Yes Isabella [address] [facility] n Calcium n Calcium [facility] [facility] Vital Signs Vital Name Observation Time Observation Value Comments Source WEIGHT 2020-11-20 10:19:00 71.9 kg WEIGHT 2020-11-18 10:30:00 73 kg WEIGHT 2021-08-04 08:02:00 69.4 kg HEIGHT 2021-08-03 16:59:00 162.6 cm WEIGHT 2021-08-03 16:59:00 72.576 kg HEIGHT 2021-08-03 11:13:00 162.6 cm WEIGHT 2021-08-03 11:13:00 72.576 kg WEIGHT 2021-08-04 08:02:00 69.4 kg HEIGHT 2021-08-03 16:59:00 162.6 cm WEIGHT 2021-08-03 16:59:00 72.576 kg HEIGHT 2021-08-03 11:13:00 162.6 cm WEIGHT 2021-08-03 11:13:00 72.576 kg HEIGHT 2021-06-19 10:17:00 162.6 cm WEIGHT 2021-06-19 10:17:00 71.668 kg HEIGHT 2021-06-19 10:17:00 162.6 cm WEIGHT 2021-06-19 10:17:00 71.668 kg WEIGHT 2021-06-04 18:15:00 62.2 kg WEIGHT 2021-06-04 14:45:00 65.2 kg WEIGHT 2021-06-03 05:59:00 65.182 kg WEIGHT 2021-06-02 11:57:00 63.5 kg WEIGHT 2021-06-02 05:58:00 66.497 kg WEIGHT 2021-06-01 06:00:00 66.225 kg WEIGHT 2021-05-31 05:00:00 66.18 kg WEIGHT 2021-05-30 05:00:00 66.452 kg WEIGHT 2021-05-29 05:16:00 65.862 kg WEIGHT 2021-05-28 18:45:00 70.5 kg WEIGHT 2021-05-27 06:00:00 70.308 kg WEIGHT 2021-05-26 17:00:00 71.1 kg HEIGHT 2021-05-25 16:19:00 162.6 cm WEIGHT 2021-05-25 16:19:00 72.576 kg WEIGHT 2021-06-04 18:15:00 62.2 kg WEIGHT 2021-06-04 14:45:00 65.2 kg WEIGHT 2021-06-03 05:59:00 65.182 kg WEIGHT 2021-06-02 11:57:00 63.5 kg WEIGHT 2021-06-02 05:58:00 66.497 kg WEIGHT 2021-06-01 06:00:00 66.225 kg WEIGHT 2021-05-31 05:00:00 66.18 kg WEIGHT 2021-05-30 05:00:00 66.452 kg WEIGHT 2021-05-29 05:16:00 65.862 kg WEIGHT 2021-05-28 18:45:00 70.5 kg WEIGHT 2021-05-27 06:00:00 70.308 kg WEIGHT 2021-05-26 17:00:00 71.1 kg HEIGHT 2021-05-25 16:19:00 162.6 cm WEIGHT 2021-05-25 16:19:00 72.576 kg WEIGHT 2020-11-20 10:19:00 71.9 kg WEIGHT 2020-11-18 10:30:00 73 kg Procedures This patient has no known procedures. Encounters Start End Encounter Admission Attending Care Care Encounter Source Date/Time Date/Time Type Type Clinicians Facility Department ID 2020-12-19 Inpatient Espinoza Villagran [facility]ACL DAYS [id number] [facility] 13:00:00 [id number] [facility] 2020-11-14 Inpatient ER KALDIS, [facility] Gastro [id number] [facility] 21:46:00 ARBEN 2020-06-20 Inpatient Espinoza Villagran [facility] DAYS [id number] [facility] 13:00:00 [id number] [facility] 2020-06-18 Inpatient Espinoza Villagran [facility] DAYS [id number] [facility] 08:30:00 [id number] [facility] 2019-05-04 [id number] 17:34:38 2021-12-28 2021-12-28 Outpatient SLE [facility] [id number] [facility] 00:00:00 00:00:00 2021-10-12 2021-10-12 Outpatient EL [facility] [id number] [facility] 00:00:00 00:00:00 2021-08-11 2021-08-11 Outpatient [facility] [id number] [facility] 2021-08-03 2021-08-03 Outpatient [facility] [id number] [facility] 00:00:00 23:59:00 [facility] 2021-08-03 2021-08-03 Emergency ER SLE Emergency [id number] [facility] 11:01:00 11:01:00 2021-07-29 2021-07-29 Outpatient [facility]C [facility] [id number] [facility] 2021-07-23 2021-07-23 Outpatient EL SLE SLE [id number] [facility] 00:00:00 00:00:00 2021-07-23 2021-07-23 Outpatient [facility]LMLC [facility] [id number] [facility] 2021-07-14 2021-07-14 Outpatient [facility]LC [id number] [facility] 2021-07-08 2021-07-08 Outpatient [facility]MLC [facility] [id number] [facility] 2021-07-08 2021-07-08 Outpatient [facility] [id number] [facility] 2021-06-26 2021-06-26 Outpatient EL DALLIN, [facility] [id number] [facility] 00:00:00 00:00:00 HUMERA 2021-06-26 2021-06-26 Outpatient DALLIN [facility] [id number] [facility] 00:00:00 00:00:00 HUMERA 2021-06-26 2021-06-26 Outpatient EL [facility] [id number] [facility] 00:00:00 00:00:00 2021-06-22 2021-06-22 Outpatient [facility]LMLC [facility] [id number] [facility] 2021-06-22 2021-06-22 Outpatient [facility]LMLC [facility] [id number] [facility] 2021-06-22 2021-06-22 Outpatient [facility]MLC [facility] [id number] [facility] 2021-06-19 2021-06-19 Outpatient EL [facility] [id number] [facility] 00:00:00 00:00:00 2021-06-19 2021-06-19 Outpatient [facility]C [facility] [id number] [facility] 2021-06-05 2021-06-05 Outpatient EL [facility] [id number] [facility] 00:00:00 00:00:00 2021-05-25 2021-05-[address] [facility] Emergency [id number] [facility] 15:33:00 15:33:00 2021-05-25 2021-05-25 Outpatient [facility]MLC [facility] [id number] [facility] 2021-05-22 2021-05-22 Outpatient [facility]C [facility] [id number] [facility] 2021-05-21 2021-05-21 Outpatient [facility] [id number] [facility] 2021-04-09 2021-04-09 Outpatient [facility]C [facility] [id number] [facility] 2021-01-21 2021-01-21 Outpatient [facility]MLC [facility] [id number] [facility] 2021-01-07 2021-01-07 Outpatient [facility] [id number] [facility] 2020-12-30 2020-12-30 Outpatient EL SLE SLE [id number] [facility] 00:00:00 00:00:00 2020-12-26 2020-12-26 Outpatient EL [facility] [id number] [facility] 00:00:00 00:00:00 2020-12-18 2020-12-18 Outpatient EL SLE [facility] [id number] [facility] 00:00:00 00:00:00 2020-11-10 2020-11-10 Outpatient [facility]LMLC [facility] [id number] [facility] 2020-10-08 2020-10-08 Outpatient [facility]LMLC [facility] [id number] [facility] 2020-08-15 2020-08-15 Outpatient [facility]LMLC [facility] [id number] [facility] 2020-06-25 2020-06-25 [facility] [id number] [facility] 15:00:00 15:00:00 t Axtell Axtell Kick[employer] With Luke s - Drive [facility] Family [facility] l Medicine Outpati ent Clinics 2020-06-25 2020-06-25 [facility] [id number] 15:00:00 15:00:[address] Luke s - Drive Family [facility] Family Medicine l Medicine Outpati ent Clinics 2020-03-12 2020-03-12 [facility] [id number] 13:45:00 13:45:00 t Axtell Axtell [employer] With Luke s - Drive [facility] Family [facility] l Medicine Outpati ent Clinics 2020-02-12 2020-02-12 Outpatient Melodie WALL [facility] [id number] Univers 09:00:00 09:00:00 CIERRA christy [facility] 2019-12-26 2019-12-26 Outpatient Jony-Mbayo VFP VFP [phone] [facility] 07:15:00 07:15:00 _A_AH [id number] Family Practic e 2019-12-26 2019-12-26 Outpatient Jony-Mbayo VFP VFP [phone] [facility] 07:15:00 07:15:00 _A_AH [id number] Family Practic e 2019-12-10 2019-12-10 [facility] [id number] 13:30:00 13:30:00 t Axtell Axtell Kick[employer] With [employer] s - Drive [facility] Medicine Medicine Outpati ent Clinics 2019-09-26 2019-09-26 [facility] [id number] 08:23:00 08:23:00 t Axtell Axtell Kick[employer] With [employer] s - Drive [facility] Medicine Outpati ent Clinics 2019-09-20 2019-09-20 [facility] [id number] 16:58:00 16:58:00 t Axtell Axtell Kick[employer] With [employer] s - Drive [facility] Medicine Medicine Outpati ent Clinics 2019-08-10 2019-08-10 [facility] [id number] 09:15:00 09:15:00 t Axtell Axtell Kick[employer] With [employer] s - Drive [facility] Medicine Outpati ent Clinics 2019-07-11 2019-07-11 [facility] [id number] 16:55:00 16:55:00 t Axtell Austral 3D [employer] - Drive [facility] Medicine Outpati ent Clinics 2019-07-11 2019-07-11 [facility] [id number] 10:15:00 10:15:00 t Axtell Axtell Kickit With [employer] - Drive [facility] Medicine Medicine Outpati ent Clinics 2019-07-06 2019-07-06 [facility] [id number] 16:41:00 16:41:00 t Axtell [employer] s - Drive [facility] Medicine Outpati ent Clinics 2019-05-04 2019-05-04 Outpatient [facility] [id number] 09:00:00 13:49:28 2019-05-04 2019-05-04 Inpatient E [facility] [id number] [facility] 12:18:00 10:21:00 2019-05-04 2019-05-04 Appointmen LAQUITA HUSAIN [facility] [id number] [facility] 09:00:00 09:00:00 t; CARMELITA, speedy & zohreh of Allen HUSAIN Vascular Reinier MAE, Surgery - Physic jc [facility] 2019-04-20 2019-04-20 [facility] [id number] 09:30:00 09:30:00 t [employer] [facility] Medicine Outpati ent Clinics 2019-02-27 2019-02-27 [facility] [id number] 10:00:00 10:00:00 t [employer] [facility] Outpati ent Clinics 2019-01-24 2019-01-24 [facility] [id number] 10:45:00 10:45:00 t [employer] [facility] Medicine Medicine Outpati ent Clinics 2019-01-10 2019-01-10 [facility] [id number] 07:54:00 07:54:00 t [employer] [facility] Medicine l Medicine Outpati ent Clinics 2018-11-15 2018-11-15 [facility] [id number] 10:00:00 10:00:00 t [employer] [facility] Medicine Outpati ent Clinics 2018-10-12 2018-10-12 [facility] [id number] 15:00:00 15:00:00 t Specialty/U [facility] kes - [facility] Clinics 2018-05-08 2018-05-08 [facility] [id number] 08:20:00 08:20:00 t [employer] [facility] Medicine Outpati ent Clinics 2018-05-01 2018-05-01 [facility] [id number] 08:46:00 08:46:[address] [facility] Outpat[facility] ent Clinics 2018-04-27 2018-04-27 [facility] [id number] 09:00:00 09:00:00 t Responsa [facility] 2018-04-20 2018-04-20 [facility] [id number] 13:36:00 13:36:00 t Axtell [employer] 3[employer] [facility] Out[facility] Clinics 2018-04-12 2018-04-12 [facility] [id number] 16:11:00 16:11:00 t Axtell Austral 3D [facility] Out[facility] Clinics 2018-04-10 2018-04-10 [facility] [id number] 14:45:00 14:45:00 Responsa Vega s [facility] ent Clinics Results Test Description Test Time Test Comments Results Result Comments Source BODY FLUID CULTURE + GRAM STAIN 2021-08-05 14:14:13 Test Item Value Reference Range Interpretation Comme nts CULTURE (BEAKER) (test code = 1095) No growth GRAM STAIN RESULT (BEAKER) (test code = 1123) <1+ WBCs GRAM STAIN RESULT (BEAKER) (test code = 95818) No organisms seen POCT-GLUCOSE [id number] 12:15:12 Test Item Value Reference Range Interpretation Comments POC-GLUCOSE METER 165 mg/dL 70-110 H : [facility] (BEAKER) (test code = [place], 1538) [id number]: Meter Changes Records Clerk/Techni elsie ID = [id number] for ROBYN YANCEY BASIC METABOLIC [id number] 08:52:50 Test Item Value Reference Range Interpretation Comments SODIUM (BEAKER) 133 meq/L 136-145 L (test code = 381) POTASSIUM (BEAKER) 5.0 meq/L 3.5-5.1 (test code = 379) CHLORIDE (BEAKER) 96 meq/L 98-107 L (test code = 382) CO2 (BEAKER) (test 29 meq/L code = 355) BLOOD UREA NITROGEN 30 mg/dL 7-21 H (BEAKER) (test code = 354) CREATININE (BEAKER) 4.74 mg/dL 0.57-1.25 H (test code = 358) GLUCOSE RANDOM 170 mg/dL 70-105 H (BEAKER) (test code = 652) CALCIUM (BEAKER) 7.5 mg/dL 8.4-10.2 L (test code = 697) EGFR (BEAKER) (test 12 mL/min/1.73 ESTIMA NOVA GFR IS code = 1092) sq m NOT ACCURATE CREATININE CLEARANCE IN PREDICTING GLOMERULAR FILTRATION RATE . ESTIMATED GFR I S NOT APPLICABLE FOR DIALYSIS PATIEN TS. Meter Changes Records Clerk ID - [id number] 08:49:00 Test Item Value Reference Range Interpretation Comments MAGNESIUM (BEAKER) (test code = 2.1 mg/dL 1.6-2.6 627) Meter Changes Records Clerk ID - ADMINPOCT-GLUCOSE [id number] 07:57:04 Test Item Value Reference Range Interpretation Comments POC-GLUCOSE METER 178 mg/dL 70-110 H : TESTED A T [facility] 6720 (BEAKER) (test code = [facility] [place], 1538) [id number]: Meter Changes Records Clerk/Techni elsie ID = [id number] for ROBYN YANCEY CBC W/PLT COUNT & AUTO [id number] 06:39:06 Test Item Value Reference Range Interpretation Comments WHITE BLOOD CELL COUNT (BEAKER) 7.9 K/ L 3.5-10.5 (test code = 775) RED BLOOD CELL COUNT (BEAKER) 2.87 M/ L 4.63-6.08 L (test code = 761) HEMOGLOBIN (BEAKER) (test code = 8.3 GM/DL 13.7-17.5 L 410) HEMATOCRIT (BEAKER) (test code = 27.9 % 40.1-51.0 L 411) MEAN CORPUSCULAR VOLUME (BEAKER) 97.2 fL 79.0-92.2 H (test code = 753) MEAN CORPUSCULAR HEMOGLOBIN 28.9 pg 25.7-32.2 (BEAKER) (test code = 751) MEAN CORPUSCULAR HEMOGLOBIN CONC 29.7 GM/DL 32.3-36.5 L (BEAKER) (test code = 752) RED CELL DISTRIBUTION WIDTH 19.9 % 11.6-14.4 H (BEAKER) (test code = 412) PLATELET COUNT (BEAKER) (test 262 K/CU MM 150-450 code = 756) MEAN PLATELET VOLUME (BEAKER) 10.1 fL 9.4-12.4 (test code = 754) NUCLEATED RED BLOOD CELLS 0 /100 WBC 0-0 (BEAKER) (test code = 413) NEUTROPHILS RELATIVE PERCENT 82 % (BEAKER) (test code = 429) LYMPHOCYTES RELATIVE PERCENT 4 % (BEAKER) (test code = 430) MONOCYTES RELATIVE PERCENT 11 % (BEAKER) (test code = 431) EOSINOPHILS RELATIVE PERCENT 1 % (BEAKER) (test code = 432) BASOPHILS RELATIVE PERCENT 0 % (BEAKER) (test code = 437) NEUTROPHILS ABSOLUTE COUNT 6.54 K/ L 1.78-5.38 H (BEAKER) (test code = 670) LYMPHOCYTES ABSOLUTE COUNT 0.28 K/ L 1.32-3.57 L (BEAKER) (test code = 414) MONOCYTES ABSOLUTE COUNT (BEAKER) 0.90 K/ L 0.30-0.82 H (test code = 415) EOSINOPHILS ABSOLUTE COUNT 0.05 K/ L 0.04-0.54 (BEAKER) (test code = 416) BASOPHILS ABSOLUTE COUNT (BEAKER) 0.02 K/ L 0.01-0.08 (test code = 417) IMMATURE GRANULOCYTES-RELATIVE 2 % 0-1 H PERCENT (BEAKER) (test code = 2801) POCT-GLUCOSE [id number] 22:12:47 Test Item Value Reference Range Interpretation Comments POC-GLUCOSE METER 157 mg/dL 70-110 H : TESTED A T [facility] 6720 (BEAKER) (test code = [facility], 1538) [id number]: Meter Changes Records Clerk/Techni elsie ID = [id number] for Pawel Reynolds POCT-GLUCOSE [id number] 17:45:52 Test Item Value Reference Range Interpretation Comments POC-GLUCOSE METER 159 mg/dL 70-110 H : TESTED A T [facility] 6720 (BEAKER) (test code = [facility], 1538) [id number]: Meter Changes Records Clerk/Techni elsie ID = [id number] for Erma Kingston [id number] 13:58:31Medical Cytology Report Case: [id number] Authorizing Provider: Mauricio Perry, Collected: 08/03/2021 02:35 PM Ordering Location: [facility] Emergency Department Received: 08/04/2021 09:29 AM Pathologist: Genevieve Mendez MD Specimen: Perit cabezas Fluid PERITONEAL FLUID (CYTOSPINS): - NEGATIVE FOR MALIGNANCY Signing Pathologist Direct Phone Line: [phone] signed by Genevieve Mendez MD on 08/04/2021 at 1:58 [id number], history of cirrhosis and ESRD.PERITONEAL FLUIDReceived 1600 mls brown fluid; prepared 4 cytospins. Performed. [facility], Department of Pathology, [address] [place] [id number], [facility], [address] [place] [address], [facility], [address] [place] [address] 61352, NXXY-GLUCOSE [id number] 12:51:45 Test Item Value Reference Range Interpretation Comments POC-GLUCOSE METER 110 mg/dL 70-110 : TESTED A T [facility] 67 (BEAKER) (test code = CIERA [facility], 1538) [id number]: Meter Changes Records Clerk/Techni elsie ID = [id number] for Erma Kingston LACTATE DEHYDROGENASE (LDH), BODY [id number] 09:48:21 Test Item Value Reference Range Interpretation Comments LACTATE DEHYDROGENASE FLUID (BEAKER) 141 U/L (test code = 634) Absence of reference range indicates that normals have not been defined.Assay performance has not been validated for this type of specimen.Meter Changes Records Clerk ID - DSENSONPROTEIN, BODY [id number] 09:44:56 Test Item Value Reference Range Interpretation Comments PROTEIN FLUID (BEAKER) (test code = 3.9 g/dL 579) Absence of reference range indicates that normals have not been defined.Assay performance has not been validated for this type of specimen.Meter Changes Records Clerk ID - DSENSONBASIC METABOLIC [id number] 06:39:38 Test Item Value Reference Range Interpretation Comments SODIUM (BEAKER) 133 meq/L 136-145 L (test code = 381) POTASSIUM (BEAKER) 4.8 meq/L 3.5-5.1 (test code = 379) CHLORIDE (BEAKER) 94 meq/L 98-107 L (test code = 382) CO2 (BEAKER) (test 32 meq/L 22-29 H code = 355) BLOOD UREA NITROGEN 34 mg/dL 7-21 H (BEAKER) (test code = 354) CREATININE (BEAKER) 4.95 mg/dL 0.57-1.25 H (test code = 358) GLUCOSE RANDOM 138 mg/dL 70-105 H (BEAKER) (test code = 652) CALCIUM (BEAKER) 7.5 mg/dL 8.4-10.2 L (test code = 697) EGFR (BEAKER) (test 12 mL/min/1.73 ESTIMA NOVA GFR IS code = 1092) sq m NOT ACCURATE CREATININE CLEARANCE IN PREDICTING GLOMERULAR FILTRATION RATE . ESTIMATED GFR I S NOT APPLICABLE FOR DIALYSIS PATIEN TS. Meter Changes Records Clerk ID - JORDAN [id number] 06:39:14 Test Item Value Reference Range Interpretation Comments MAGNESIUM (BEAKER) (test code = 2.0 mg/dL 1.6-2.6 627) Meter Changes Records Clerk ID - JORDAN MCBC W/PLT COUNT & AUTO [id number] 06:11:35 Test Item Value Reference Range Interpretation Comments WHITE BLOOD CELL COUNT (BEAKER) 8.0 K/ L 3.5-10.5 (test code = 775) RED BLOOD CELL COUNT (BEAKER) 2.85 M/ L 4.63-6.08 L (test code = 761) HEMOGLOBIN (BEAKER) (test code = 8.5 GM/DL 13.7-17.5 L 410) HEMATOCRIT (BEAKER) (test code = 27.1 % 40.1-51.0 L 411) MEAN CORPUSCULAR VOLUME (BEAKER) 95.1 fL 79.0-92.2 H (test code = 753) MEAN CORPUSCULAR HEMOGLOBIN 29.8 pg 25.7-32.2 (BEAKER) (test code = 751) MEAN CORPUSCULAR HEMOGLOBIN CONC 31.4 GM/DL 32.3-36.5 L (BEAKER) (test code = 752) RED CELL DISTRIBUTION WIDTH 19.9 % 11.6-14.4 H (BEAKER) (test code = 412) PLATELET COUNT (BEAKER) (test 242 K/CU MM 150-450 code = 756) MEAN PLATELET VOLUME (BEAKER) 9.4 fL 9.4-12.4 (test code = 754) NUCLEATED RED BLOOD CELLS 0 /100 WBC 0-0 (BEAKER) (test code = 413) NEUTROPHILS RELATIVE PERCENT 82 % (BEAKER) (test code = 429) LYMPHOCYTES RELATIVE PERCENT 4 % (BEAKER) (test code = 430) MONOCYTES RELATIVE PERCENT 12 % (BEAKER) (test code = 431) EOSINOPHILS RELATIVE PERCENT 1 % (BEAKER) (test code = 432) BASOPHILS RELATIVE PERCENT 0 % (BEAKER) (test code = 437) NEUTROPHILS ABSOLUTE COUNT 6.54 K/ L 1.78-5.38 H (BEAKER) (test code = 670) LYMPHOCYTES ABSOLUTE COUNT 0.28 K/ L 1.32-3.57 L (BEAKER) (test code = 414) MONOCYTES ABSOLUTE COUNT (BEAKER) 0.94 K/ L 0.30-0.82 H (test code = 415) EOSINOPHILS ABSOLUTE COUNT 0.05 K/ L 0.04-0.54 (BEAKER) (test code = 416) BASOPHILS ABSOLUTE COUNT (BEAKER) 0.02 K/ L 0.01-0.08 (test code = 417) IMMATURE GRANULOCYTES-RELATIVE 2 % 0-1 H PERCENT (BEAKER) (test code = 2801) POCT-GLUCOSE [id number] 22:05:32 Test Item Value Reference Range Interpretation Comments POC-GLUCOSE METER 137 mg/dL 70-110 H : TESTED A T [facility] 6720 (BEAKER) (test code = CIERA Sewell [facility], 1538) [address]: Meter Changes Records Clerk/Techni elsie ID = [id number] for GINA SALAZAR HEPATITIS B SURFACE [id number] 21:43:34 Test Item Value Reference Range Interpretation Comments HEPATITIS B SURFACE ANTIGEN (2) Nonreactive Nonreactive (BEAKER) (test code = 2585) Specimen is considered negative for HBsAg.BODY FLUID CELL COUNT WITH [id number] 18:09:33 Test Item Value Reference Range Interpretation Comments APPEARANCE FLUID Slightly Cloudy Clear A (BEAKER) (test code = 510) COLOR FLUID Straw Colorless, Straw (BEAKER) (test code = 511) RBC FLUID (BEAKER) 9000 /cu mm See_Comment H [Automat ed (test code = 513) message] T he system which generated this result transmit nova reference range : <=1. The refere nce range was not u sed to interpret th is result as normal/abnormal . ADJUSTED WBC FLUID 338 /cu mm See_Comment H [Automat ed (BEAKER) (test code message] The = 1691) system which generated this result transmit nova reference range : <=5. The refere nce range was not u sed to interpret th is result as normal/abnormal . LINING CELLS 17 /cu mm See_Comment H [Automated (BEAKER) (test code message] The = 1590) system which generated this result transmit nova reference range : <=1. The refere nce range was not u sed to interpret th is result as normal/abnormal . NEUTROPHILS FLUID 3 % (BEAKER) (test code = 1656) LYMPHS FLUID 41 % (BEAKER) (test code = 488) MONO/MACROPHAGE 56 % FLUID (BEAKER) (test code = 489) EOSINOPHILS FLUID 0 % (BEAKER) (test code = 491) BASO FLUID (BEAKER) 0 % (test code = 492) CONTAINER BODY EDTA Tube FLUID (BEAKER) (test code = 2873) POCT-GLUCOSE [id number] 17:22:05 Test Item Value Reference Range Interpretation Comments POC-GLUCOSE METER 117 mg/dL 70-110 H : TESTED A T [facility] 6720 (BEAKER) (test code = [place], 1538) [address]: Meter Changes Records Clerk/Techni elsie ID = [id number] for Rahcel sivadevinErma U/S, [id number] 17:04:00DR STRIBLINGLabs to be ordered:->Body Fluid Culture (w/Gram Stain, C\T\S)Labs to be ordered:->CytologyLabs to be ordered:->Glucose+LDH+ProteinLabs to be ordered:->Cell CountReason for exam:->CHEST PAINReason for exam:->EDEMA [facility] : 1955 Sex: MFINAL REPORT Ultrasound guided paracentesis Clinical History: Ascites. Sedation: None. Shook Splicer: Klaudia Garcia PA-C Supervising Physician: rBady Self MD Brake Coupler Dinkey: None. Estimated Blood Loss: < 1 mL. Specimen: 10,000 mL of clear yellow fluid,samples sent to laboratory. Technique: Informed consent was obtained. The risks of pain, bleeding,infection, bowel perforation, injury to adjacent structures, and adverse medication reactions were discussed with the patient. After informed consent was obtained, the patient's abdomen was scanned.The right lower quadrant of the abdomen was selected for paracentesis. After the largest fluid pocket area was marked, and the anterior abdominal wall was evaluated with color Doppler to exclude presence of blood vessels traversing the area, the skin was prepped and draped in the usual sterile manner. After local anesthesia was achieved with lidocaine, a 5 Burmese one-step catheter was advanced intothe peritoneal cavity under ultrasound guidance. After completion of drainage, the catheter was removed. There was no evidence of complication. Impression:Successful ultrasound guided paracentesis. Signed: Brady Self MDReport Verified Date/Time: 08/03/2021 17:04:47 Reading Location: [facility] Ultrasound Reading Room SARS-COV2/RT-PCR ([facility])2021-08-03 14:42:37 Test Item Value Reference Range Interpretation Comments SARS-COV2/RT-PCR Negative Negative The SARS-Co V-2 target (test code = nucleic acids a re not [id number]) detected in thi s specimen. Negative result s do not preclude SARS-C oV-2 infection and s hould not be used as the jono e basis for patient managem ent decisions. Nega tive results must be combine d with clinical observ ations, patient history , and epidemiological information. A false negativ e result may occur if a spec imen is improperly dawit ected, transported or handled. This SARS CoV-2 test is a rapid, real-reese e RT-PCR test intended for qualitative detection of nu cleic acid from SARS-CoV-2 in a nasopharyngeal swab specimen collected from individuals suspected of CO VID-[facility]. This test has been authorized by FDA under an EUA for use by authorized laboratories. This test is only authorized for the duration of the declaration that circumstances exist justifying the authorization of emergency use of in vitro diagnostic tests for detection and/or diagnosis of COVID-19 under Section 564(b)(1) of the Federal Food, Drug and Cosmetic Act, 21 U.S.C. 360bbb- 3(b)(1), unless the authorization is terminated or revoked sooner. Fact Sheet for Healthcare Providers: https://www.Innorange [employer]/Documents/Xpert%20Xpress%20SARS%20CoV-2/Fact%20Sheets/302-3802%20SARS-COV -2%20HEALTHCARE%20PROVIDERS%20FACT%20SHEET.pdf Fact Sheet for Healthcare Patients: https://www.[employer]/Documents/Xpert %20Xpress%20SARS%20CoV-2/Fact%20Sheets/302-3801%31BHQC-TUJ-9%20PATIENT%20FACT%20 SHEET.pdfB-TYPE NATRIURETIC FACTOR (BNP)2021-08-03 12:54:07 Test Item Value Reference Range Interpretation Comments B-TYPE NATRIURETIC PEPTIDE 40155 pg/mL 0-100 H (BEAKER) (test code = 700) Meter Changes Records Clerk ID - JOHAN FOperator ID - JOHAN FHIGH SENSITIVITY TROPONIN I 2021-08-03 12:37:33 Test Item Value Reference Range Interpretation Comments HIGH SENSITIVITY 43 pg/ml See_Comment H [Automated message] TROPONIN I (test code = The system which [id number]) generated this result transmitted ref erence range: <=35. Th e reference range was not used to int erpret this result as normal/abnormal . Meter Changes Records Clerk ID - JOHAN FThe LECTURER IN MARKETING STAT High Sensitivity Troponin-I results should be used in conjunction with other diagnostic information such as ECG, clinical observations and information, and patient symptoms to aid in the diagnosis of VT.COMPREHENSIVE METABOLIC [id number] 12:32:18 Test Item Value Reference Range Interpretation Comments TOTAL PROTEIN 6.9 gm/dL 6.0-8.3 (BEAKER) (test code = 770) ALBUMIN (BEAKER) 2.7 g/dL 3.5-5.0 L (test code = 1145) ALKALINE PHOSPHATASE 136 U/L 40-150 (BEAKER) (test code = 346) BILIRUBIN TOTAL 0.3 mg/dL 0.2-1.2 (BEAKER) (test code = 377) SODIUM (BEAKER) (test 134 meq/L 136-145 L code = 381) POTASSIUM (BEAKER) 4.5 meq/L 3.5-5.1 (test code = 379) CHLORIDE (BEAKER) 92 meq/L 98-107 L (test code = 382) CO2 (BEAKER) (test 32 meq/L 22-29 H code = 355) BLOOD UREA NITROGEN 30 mg/dL 7-21 H (BEAKER) (test code = 354) CREATININE (BEAKER) 4.46 mg/dL 0.57-1.25 H (test code = 358) GLUCOSE RANDOM 192 mg/dL 70-105 H (BEAKER) (test code = 652) CALCIUM (BEAKER) 7.9 mg/dL 8.4-10.2 L (test code = 697) AST (SGOT) (BEAKER) 21 U/L 5-34 (test code = 353) ALT (SGPT) (BEAKER) < U/L 6-55 L (test code = 347) EGFR (BEAKER) (test 13 mL/min/1.73 ESTIMA NOVA GFR IS code = 1092) sq m NOT ACCURATE CREATININE CLEARANCE IN PREDICTING GLOMERULAR FILTRATION RATE . ESTIMATED GFR I S NOT APPLICABLE FOR DIALYSIS PATIEN TS. Meter Changes Records Clerk ID Disha PRADO [id number] 12:30:52 Test Item Value Reference Range Interpretation Comments PHOSPHORUS (BEAKER) (test code = 2.6 mg/dL 2.3-4.7 604) Meter Changes Records Clerk ID - JOHAN [id number] 12:30:51 Test Item Value Reference Range Interpretation Comments MAGNESIUM (BEAKER) (test code = 2.1 mg/dL 1.6-2.6 627) Meter Changes Records Clerk ID - JOHAN FPROTHROMBIN [id number] 12:14:02 Test Item Value Reference Range Interpretation Comments PROTIME (BEAKER) 14.5 seconds 11.9-14.2 H (test code = 759) INR (BEAKER) (test 1.15 See_Comment [Automat ed message] code = 370) The system [employer] generated this result transmitted ref erence range: <=5.90. The reference range was not used to int erpret this result as normal/abnormal . RECOMMENDED COUMADIN/WARFARIN INR THERAPY RANGESSTANDARD DOSE: 2.0 - 3.0 Includes: PROPHYLAXIS forvenous thrombosis, systemic embolization; TREATMENT for venous thrombosis and/or pulmonary embolus.HIGH RISK: Target INR is 2.5-3.5 for patients with mechanical heart valves.CBC W/PLT COUNT & AUTO DIFFERENTIAL 2021-08-03 12:04:07 Test Item Value Reference Range Interpretation Comments WHITE BLOOD CELL COUNT (BEAKER) 10.0 K/ L 3.5-10.5 (test code = 775) RED BLOOD CELL COUNT (BEAKER) 3.07 M/ L 4.63-6.08 L (test code = 761) HEMOGLOBIN (BEAKER) (test code = 9.0 GM/DL 13.7-17.5 L 410) HEMATOCRIT (BEAKER) (test code = 29.6 % 40.1-51.0 L 411) MEAN CORPUSCULAR VOLUME (BEAKER) 96.4 fL 79.0-92.2 H (test code = 753) MEAN CORPUSCULAR HEMOGLOBIN 29.3 pg 25.7-32.2 (BEAKER) (test code = 751) MEAN CORPUSCULAR HEMOGLOBIN CONC 30.4 GM/DL 32.3-36.5 L (BEAKER) (test code = 752) RED CELL DISTRIBUTION WIDTH 19.7 % 11.6-14.4 H (BEAKER) (test code = 412) PLATELET COUNT (BEAKER) (test 283 K/CU MM 150-450 code = 756) MEAN PLATELET VOLUME (BEAKER) 9.0 fL 9.4-12.4 L (test code = 754) NUCLEATED RED BLOOD CELLS 1 /100 WBC 0-0 H (BEAKER) (test code = 413) NEUTROPHILS RELATIVE PERCENT 85 % (BEAKER) (test code = 429) LYMPHOCYTES RELATIVE PERCENT 3 % (BEAKER) (test code = 430) MONOCYTES RELATIVE PERCENT 10 % (BEAKER) (test code = 431) EOSINOPHILS RELATIVE PERCENT 1 % (BEAKER) (test code = 432) BASOPHILS RELATIVE PERCENT 0 % (BEAKER) (test code = 437) NEUTROPHILS ABSOLUTE COUNT 8.55 K/ L 1.78-5.38 H (BEAKER) (test code = 670) LYMPHOCYTES ABSOLUTE COUNT 0.27 K/ L 1.32-3.57 L (BEAKER) (test code = 414) MONOCYTES ABSOLUTE COUNT (BEAKER) 0.99 K/ L 0.30-0.82 H (test code = 415) EOSINOPHILS ABSOLUTE COUNT 0.08 K/ L 0.04-0.54 (BEAKER) (test code = 416) BASOPHILS ABSOLUTE COUNT (BEAKER) 0.03 K/ L 0.01-0.08 (test code = 417) IMMATURE GRANULOCYTES-RELATIVE 1 % 0-1 PERCENT (BEAKER) (test code = 2801) RAD, CHEST, 1 VIEW, NON [id number] 11:47:00DR STRIBLINGReason for exam:- >CHEST PAINReason for exam:->EDEMAShould this be performed at the bedside?->YesEMANATE [facility] : 1955 Sex: MFINAL REPORT RAD, CHEST, 1 VIEW, NON DEPT INDICATION: CHEST PAINEDEMA COMPARISON: Prior day's exam FINDINGS: Portable frontal view of the chest. IMPRESSION: Support Lines: Pacer device and sternotomy wires. Lungs and pleura: Bilateral effusions and adjacent atelectasis Nosignificant pneumothorax. Heart and mediastinum: Stable contours. Additional findings: None. Signed: Arlet Sr Verified Date/Time: 08/03/2021 11:47:09 Reading Location: [facility] Radiology Reading Room ALPHA FETOPROTEIN (AFP), TUMOR [id number] 13:27:00 Test Item Value Reference Range Interpretation Comments ALPHA-FETOPROTEIN (BEAKER) (test code < ng/mL <10.0 = 1094) Meter Changes Records Clerk ID - PATRICIA CBASI METABOLIC [id number] 13:06:00 Test Item Value Reference Range Interpretation Comments SODIUM (BEAKER) 138 meq/L 136-145 (test code = 381) POTASSIUM (BEAKER) 5.0 meq/L 3.5-5.1 (test code = 379) CHLORIDE (BEAKER) 96 meq/L 98-107 L (test code = 382) CO2 (BEAKER) (test 29 meq/L 22-29 code = 355) BLOOD UREA NITROGEN 39 mg/dL 7-21 H (BEAKER) (test code = 354) CREATININE (BEAKER) 4.14 mg/dL 0.57-1.25 H (test code = 358) GLUCOSE RANDOM 128 mg/dL 70-105 H (BEAKER) (test code = 652) CALCIUM (BEAKER) 8.2 mg/dL 8.4-10.2 L (test code = 697) EGFR (BEAKER) (test 14 mL/min/1.73 ESTIMA NOVA GFR IS code = 1092) sq m NOT ACCURATE CREATININE CLEARANCE IN PREDICTING GLOMERULAR FILTRATION RATE . ESTIMATED GFR I S NOT APPLICABLE FOR DIALYSIS PATIEN TS. Meter Changes Records Clerk ID - PATRICIA [facility] FUNCTION [id number] 13:05:00 Test Item Value Reference Range Interpretation Comments TOTAL PROTEIN (BEAKER) (test code = 7.2 gm/dL 6.0-8.3 770) ALBUMIN (BEAKER) (test code = 1145) 3.1 g/dL 3.5-5.0 L BILIRUBIN TOTAL (BEAKER) (test code 0.3 mg/dL 0.2-1.2 = 377) BILIRUBIN DIRECT (BEAKER) (test 0.2 mg/dL 0.1-0.5 code = 706) ALKALINE PHOSPHATASE (BEAKER) (test 138 U/L 40-150 code = 346) AST (SGOT) (BEAKER) (test code = 19 U/L 5-34 353) ALT (SGPT) (BEAKER) (test code = 9 U/L 6-55 347) Meter Changes Records Clerk ID - PATRICIA CPROTHROMBIN [id number] 12:40:00 Test Item Value Reference Range Interpretation Comments PROTIME (BEAKER) 13.9 seconds 11.9-14.2 (test code = 759) INR (BEAKER) (test 1.09 See_Comment [Automat ed message] code = 370) The system [employer] generated this result transmitted ref erence range: <=5.90. The reference range was not used to int erpret this result as normal/abnormal . RECOMMENDED COUMADIN/WARFARIN INR THERAPY RANGESSTANDARD DOSE: 2.0 - 3.0 Includes: PROPHYLAXIS forvenous thrombosis, systemic embolization; TREATMENT for venous thrombosis and/or pulmonary embolus.HIGH RISK: Target INR is 2.5-3.5 for patients with mechanical heart valves.CBC W/PLT COUNT & AUTO DIFFERENTIAL 2021-06-19 12:40:00 Test Item Value Reference Range Interpretation Comments WHITE BLOOD CELL COUNT (BEAKER) 8.7 K/ L 3.5-10.5 (test code = 775) RED BLOOD CELL COUNT (BEAKER) 3.26 M/ L 4.63-6.08 L (test code = 761) HEMOGLOBIN (BEAKER) (test code = 9.0 GM/DL 13.7-17.5 L 410) HEMATOCRIT (BEAKER) (test code = 31.4 % 40.1-51.0 L 411) MEAN CORPUSCULAR VOLUME (BEAKER) 96.3 fL 79.0-92.2 H (test code = 753) MEAN CORPUSCULAR HEMOGLOBIN 27.6 pg 25.7-32.2 (BEAKER) (test code = 751) MEAN CORPUSCULAR HEMOGLOBIN CONC 28.7 GM/DL 32.3-36.5 L (BEAKER) (test code = 752) RED CELL DISTRIBUTION WIDTH 16.2 % 11.6-14.4 H (BEAKER) (test code = 412) PLATELET COUNT (BEAKER) (test 350 K/CU MM 150-450 code = 756) MEAN [...] (test code = 437) NEUTROPHILS ABSOLUTE COUNT 7.32 K/ L 1.78-5.38 H (BEAKER) (test code = 670) LYMPHOCYTES ABSOLUTE COUNT 0.31 K/ L 1.32-3.57 L (BEAKER) (test code = 414) MONOCYTES ABSOLUTE COUNT (BEAKER) 0.86 K/ L 0.30-0.82 H (test code = 415) EOSINOPHILS ABSOLUTE COUNT 0.06 K/ L 0.04-0.54 (BEAKER) (test code = 416) BASOPHILS ABSOLUTE COUNT (BEAKER) 0.01 K/ L 0.01-0.08 (test code = 417) IMMATURE GRANULOCYTES-RELATIVE 1 % 0-1 PERCENT (BEAKER) (test code = 2801) BODY FLUID CULTURE + GRAM [id number] 13:49:00 Test Item Value Reference Range Interpretation Comments CULTURE (BEAKER) (test No growth code = 1095) GRAM STAIN RESULT <1+ White blood cells (BEAKER) (test code = seen 1123) GRAM STAIN RESULT No organisms seen (BEAKER) (test code = 094605) [id number] 18:55:00Medical Cytology Report Case: [id number] Authorizing Provider: Wicho Garcia MD Collected: 06/03/2021 05:57 PM Ordering Location: [place] [address] Dialysis Received: 06/04/2021 10:06 AM Nephrology Service Pathologist: Silvestre Le MD Specimen: Pleural, Right PLEURAL, RIGHT, FLUID (CYTOSPINS): - NEGATIVE FOR MALIGNANCY Signing Pathologist Direct Phone Line: [phone] signed by Silvestre Le MD on 06/05/2021 at 6:55 [id number] pleural effusion; PMH of HTN, HLD, CAD s/p [facility]B at [facility] on 05/18/2019, HFrEF 2/2 ICM with EF 25% s/p ICD, ESRD on iHD, cirrhosis, who presents with dyspnea, worsening BLE edema and genital painPLEURAL, RIGHT, FLUIDReceived 1000 ml bloody fluid; prepared 4 cytospinsPerformed. [facility],Department of [facility]ology, [address] [place] [id number], [facility] of [facility], [address] [place] [address], [facility], Department of Pathology, [address] [place] [address], QWQB-GLUCOSE [id number] 13:22:00 Test Item Value Reference Range Interpretation Comments POC-GLUCOSE METER 138 mg/dL 70-110 H : TESTED A T [facility] 6720 (BEAKER) (test code = [place] [facility], 1538) [id number]: Meter Changes Records Clerk/Techni elsie ID = [id number] for YUKI STILES EDE U/S, [id number] 13:01:00DR STRIBLINGLaterality?->RightReason for exam:->moderate to large pleural effusionLabs to be Ordered:->Body Fluid Culture (w/Gram Stain, C\T\S)Labs to be Ordered:->CytologyLabs to be Ordered :->Cell CountLabs to be Ordered:->Glucose+LDH+Protein [facility] : 1955 Sex: MFINAL REPORT Exam: Ultrasound guided thoracentesis Clinical History: Right-sided Pleural Effusion Shook Splicer: Michelle Wilson PA-C Supervising Physician: Jose Guadalupe Bernardo MD Consent: Benefits and risks were explained to the patient who gave consent to the procedure. Complication: None Immediate Procedure: The patient was placed in sitting position. The right posterior chest was prepped and draped in usual sterile fashion. 2% lidocaine was used as local anesthetic. Under ultrasound guidance, a thoracentesis catheter was inserted into the pleural cavity. Approximately 1000 cc of serosanguineous was aspirated. The catheter was removed. The specimen was sent to the laboratory for further analysis. The patient tolerated the procedure well without any adverse reaction. A STAT chest x-ray was ordered. The patient left the department in stable condition. Impression: Ultrasound guided right-sided thoracentesis. Signed: Jose Guadalupe Bernardo Verified Date/Time: 06/05/2021 13:01:06 Reading Location: [address] Ultrasound Reading Room POCT-GLUCOSE [id number] 08:36:00 Test Item Value Reference Range Interpretation Comments POC-GLUCOSE METER 219 mg/dL 70-110 H : TESTED A T [facility] 6720 (BEAKER) (test code = [place] [facility], 1538) [id number]: Meter Changes Records Clerk/Techni elsie ID = [id number] for EDE GASPAR BASIC METABOLIC [id number] 04:46:00 Test Item Value Reference Range Interpretation Comments SODIUM (BEAKER) 141 meq/L 136-145 (test code = 381) POTASSIUM (BEAKER) 4.4 meq/L 3.5-5.1 (test code = 379) CHLORIDE (BEAKER) 104 meq/L 98-107 (test code = 382) CO2 (BEAKER) (test 29 meq/L 22-29 code = 355) BLOOD UREA NITROGEN 19 mg/dL 7-21 (BEAKER) (test code = 354) CREATININE (BEAKER) 4.32 mg/dL 0.57-1.25 H (test code = 358) GLUCOSE RANDOM 161 mg/dL 70-105 H (BEAKER) (test code = 652) CALCIUM (BEAKER) 8.0 mg/dL 8.4-10.2 L (test code = 697) EGFR (BEAKER) (test 14 mL/min/1.73 ESTIMA NOVA GFR IS code = 1092) sq m NOT ACCURATE CREATININE CLEARANCE IN PREDICTING GLOMERULAR FILTRATION RATE . ESTIMATED GFR I S NOT APPLICABLE FOR DIALYSIS PATIEN TS. Meter Changes Records Clerk ID - JEVON [id number] 04:45:00 Test Item Value Reference Range Interpretation Comments MAGNESIUM (BEAKER) (test code = 2.1 mg/dL 1.6-2.6 627) Meter Changes Records Clerk ID - JEVON [id number] 04:45:00 Test Item Value Reference Range Interpretation Comments PHOSPHORUS (BEAKER) (test code = 2.9 mg/dL 2.3-4.7 604) Meter Changes Records Clerk ID - JEVON LCBC W/PLT COUNT & AUTO [id number] 04:21:00 Test Item Value Reference Range Interpretation Comments WHITE BLOOD CELL COUNT (BEAKER) 9.3 K/ L 3.5-10.5 (test code = 775) RED BLOOD CELL COUNT (BEAKER) 3.26 M/ L 4.63-6.08 L (test code = 761) HEMOGLOBIN (BEAKER) (test code = 9.1 GM/DL 13.7-17.5 L 410) HEMATOCRIT (BEAKER) (test code = 30.3 % 40.1-51.0 L 411) MEAN CORPUSCULAR VOLUME (BEAKER) 92.9 fL 79.0-92.2 H (test code = 753) MEAN CORPUSCULAR HEMOGLOBIN 27.9 pg 25.7-32.2 (BEAKER) (test code = 751) MEAN CORPUSCULAR HEMOGLOBIN CONC 30.0 GM/DL 32.3-36.5 L (BEAKER) (test code = 752) RED CELL DISTRIBUTION WIDTH 15.9 % 11.6-14.4 H (BEAKER) (test code = 412) PLATELET COUNT (BEAKER) (test 262 K/CU MM 150-450 code = 756) MEAN PLATELET VOLUME (BEAKER) 9.7 fL 9.4-12.4 (test code = 754) NUCLEATED RED BLOOD CELLS 0 /100 WBC 0-0 (BEAKER) (test code = 413) NEUTROPHILS RELATIVE PERCENT 85 % (BEAKER) (test code = 429) LYMPHOCYTES RELATIVE PERCENT 3 % (BEAKER) (test code = 430) MONOCYTES RELATIVE PERCENT 10 % (BEAKER) (test code = 431) EOSINOPHILS RELATIVE PERCENT 1 % (BEAKER) (test code = 432) BASOPHILS RELATIVE PERCENT 0 % (BEAKER) (test code = 437) NEUTROPHILS ABSOLUTE COUNT 7.92 K/ L 1.78-5.38 H (BEAKER) (test code = 670) LYMPHOCYTES ABSOLUTE COUNT 0.28 K/ L 1.32-3.57 L (BEAKER) (test code = 414) MONOCYTES ABSOLUTE COUNT (BEAKER) 0.93 K/ L 0.30-0.82 H (test code = 415) EOSINOPHILS ABSOLUTE COUNT 0.08 K/ L 0.04-0.54 (BEAKER) (test code = 416) BASOPHILS ABSOLUTE COUNT (BEAKER) 0.03 K/ L 0.01-0.08 (test code = 417) IMMATURE GRANULOCYTES-RELATIVE 1 % 0-1 PERCENT (BEAKER) (test code = 2801) POCT-GLUCOSE [id number] 22:21:00 Test Item Value Reference Range Interpretation Comments POC-GLUCOSE METER 242 mg/dL 70-110 H : TESTED A T [facility] 6720 (BEAKER) (test code = [facility], 153) [id number]: Meter Changes Records Clerk/Techni elsie ID = [id number] for Pee Solorio POCT-GLUCOSE [id number] 12:26:00 Test Item Value Reference Range Interpretation Comments POC-GLUCOSE METER 181 mg/dL 70-110 H : TESTED A T [facility] 6720 (BEAKER) (test code = [facility], 153) [address]: Meter Changes Records Clerk/Techni elsie ID = [id number] for IB RAHIM, SERKALEM LACTATE DEHYDROGENASE (LDH), BODY [id number] 10:04:00 Test Item Value Reference Range Interpretation Comments LACTATE DEHYDROGENASE FLUID (BEAKER) 117 U/L (test code = 634) Absence of reference range indicates that normals have not been defined.Assay performance has not been validated for this type of specimen.Meter Changes Records Clerk ID - [id number], BODY [id number] 10:01:00 Test Item Value Reference Range Interpretation Comments PROTEIN FLUID (BEAKER) (test code = 3.2 g/dL 579) Absence of reference range indicates that normals have not been defined.Assay performance has not been validated for this type of specimen.Meter Changes Records Clerk ID - [id number] [id number] 08:30:00 Test Item Value Reference Range Interpretation Comments POC-GLUCOSE METER 144 mg/dL 70-110 H : TESTED A T [facility] 6720 (BEAKER) (test code = [place], 1538) [id number]: Meter Changes Records Clerk/Techni elsie ID = [id number] for IB FAHAD QUEZADA BASIC METABOLIC [id number] 05:13:00 Test Item Value Reference Range Interpretation Comments SODIUM (BEAKER) 133 meq/L 136-145 L (test code = 381) POTASSIUM (BEAKER) 5.1 meq/L 3.5-5.1 (test code = 379) CHLORIDE (BEAKER) 97 meq/L 98-107 L (test code = 382) CO2 (BEAKER) (test 25 meq/L -29 code = 355) BLOOD UREA NITROGEN 31 mg/dL 7-21 H (BEAKER) (test code = 354) CREATININE (BEAKER) 6.33 mg/dL 0.57-1.25 H (test code = 358) GLUCOSE RANDOM 161 mg/dL 70-105 H (BEAKER) (test code = 652) CALCIUM (BEAKER) 8.0 mg/dL 8.4-10.2 L (test code = 697) EGFR (BEAKER) (test 9 mL/min/1.73 ESTIMAT ED GFR IS code = 1092) sq m NOT ACCURATE CREATININE CLEARANCE IN PREDICTING GLOMERULAR FILTRATION RATE . ESTIMATED GFR I S NOT APPLICABLE FOR DIALYSIS PATIEN TS. Meter Changes Records Clerk ID - [id number] 05:10:00 Test Item Value Reference Range Interpretation Comments MAGNESIUM (BEAKER) (test code = 2.1 mg/dL 1.6-2.6 627) Meter Changes Records Clerk ID - [id number] 05:10:00 Test Item Value Reference Range Interpretation Comments PHOSPHORUS (BEAKER) (test code = 5.3 mg/dL 2.3-4.7 H 604) Meter Changes Records Clerk ID - BSCBC W/PLT COUNT & AUTO [id number] 04:43:00 Test Item Value Reference Range Interpretation Comments WHITE BLOOD CELL COUNT (BEAKER) 8.4 K/ L 3.5-10.5 (test code = 775) RED BLOOD CELL COUNT (BEAKER) 3.27 M/ L 4.63-6.08 L (test code = 761) HEMOGLOBIN (BEAKER) (test code = 9.2 GM/DL 13.7-17.5 L 410) HEMATOCRIT (BEAKER) (test code = 29.9 % 40.1-51.0 L 411) MEAN CORPUSCULAR VOLUME (BEAKER) 91.4 fL 79.0-92.2 (test code = 753) MEAN CORPUSCULAR HEMOGLOBIN 28.1 pg 25.7-32.2 (BEAKER) (test code = 751) MEAN CORPUSCULAR HEMOGLOBIN CONC 30.8 GM/DL 32.3-36.5 L (BEAKER) (test code = 752) RED CELL DISTRIBUTION WIDTH 15.8 % 11.6-14.4 H (BEAKER) (test code = 412) PLATELET COUNT (BEAKER) (test 248 K/CU MM 150-450 code = 756) MEAN PLATELET VOLUME (BEAKER) 9.6 fL 9.4-12.4 (test code = 754) NUCLEATED RED BLOOD CELLS 0 /100 WBC 0-0 (BEAKER) (test code = 413) NEUTROPHILS RELATIVE PERCENT 84 % (BEAKER) (test code = 429) LYMPHOCYTES RELATIVE PERCENT 3 % (BEAKER) (test code = 430) MONOCYTES RELATIVE PERCENT 12 % (BEAKER) (test code = 431) EOSINOPHILS RELATIVE PERCENT 1 % (BEAKER) (test code = 432) BASOPHILS RELATIVE PERCENT 0 % (BEAKER) (test code = 437) NEUTROPHILS ABSOLUTE COUNT 7.06 K/ L 1.78-5.38 H (BEAKER) (test code = 670) LYMPHOCYTES ABSOLUTE COUNT 0.25 K/ L 1.32-3.57 L (BEAKER) (test code = 414) MONOCYTES ABSOLUTE COUNT (BEAKER) 0.97 K/ L 0.30-0.82 H (test code = 415) EOSINOPHILS ABSOLUTE COUNT 0.05 K/ L 0.04-0.54 (BEAKER) (test code = 416) BASOPHILS ABSOLUTE COUNT (BEAKER) 0.02 K/ L 0.01-0.08 (test code = 417) IMMATURE GRANULOCYTES-RELATIVE 1 % 0-1 PERCENT (BEAKER) (test code = 2801) BODY FLUID CELL COUNT WITH [id number] 21:44:00 Test Item Value Reference Range Interpretation Comments APPEARANCE FLUID Slightly Bloody Clear A (BEAKER) (test code = 510) COLOR FLUID [place] Colorless, Straw A (BEAKER) (test code = 511) RBC FLUID (BEAKER) 21326 /cu mm See_Comment H [Automat ed (test code = 513) message] T he system which generated this result transmit nova reference range : <=1. The refere nce range was not u sed to interpret th is result as normal/abnormal . ADJUSTED WBC FLUID 85 /cu mm See_Comment H [Automat ed (BEAKER) (test code message] The = 1691) system which generated this result transmit nova reference range : <=5. The refere nce range was not u sed to interpret th is result as normal/abnormal . LINING CELLS 5 /cu mm See_Comment H [Automated (BEAKER) (test code message] The = 1590) system which generated this result transmit nova reference range : <=1. The refere nce range was not u sed to interpret th is result as normal/abnormal . NEUTROPHILS FLUID 5 % (BEAKER) (test code = 1656) LYMPHS FLUID 7 % (BEAKER) (test code = 488) MONO/MACROPHAGE 88 % FLUID (BEAKER) (test code = 489) EOSINOPHILS FLUID 0 % (BEAKER) (test code = 491) BASO FLUID (BEAKER) 0 % (test code = 492) CONTAINER BODY EDTA Tube FLUID (BEAKER) (test code = 2873) POCT-GLUCOSE [id number] 21:31:00 Test Item Value Reference Range Interpretation Comments POC-GLUCOSE METER 181 mg/dL 70-110 H : TESTED A T [facility] 6720 (BEAKER) (test code = [place], 1538) [address]: Meter Changes Records Clerk/Techni elsie ID = [id number] for Gi sset (pca2), Conn POCT-GLUCOSE [id number] 18:30:00 Test Item Value Reference Range Interpretation Comments POC-GLUCOSE METER 167 mg/dL 70-110 H : TESTED A T [facility] 6720 (BEAKER) (test code = [place] [facility], 1538) [address]: Meter Changes Records Clerk/Techni elsie ID = [id number] for CA STROLUCY RAD, CHEST, 1 VIEW, NON [id number] 18:20:00DR STRIBLINGReason for exam:- >post right sided thoracentesisShould this be performed [facility]?->[facility] : 1955 Sex: MFINAL REPORT Chest, one view. HISTORY: post right sided thoracentesis COMPARISON: Radiograph from 05/28/2021 IMPRESSION: Unchanged positioning of the ICD. The right pleural effusion has mildly decreased in size. There is right lower lobe atelectasis. A linear area over the right base is nonspecific but unlikely be a pneumothorax. Consider a repeat, more upright radiograph for further evaluation. The left basilar patchy opacity and small left pleural effusion are unchanged.The cardiac silhouette is unchanged in size. No acute bone abnormality. Signed: Poornima Russo Verified Date/Time: 06/03/2021 18:20:00 Reading Location: [address] Consult Reading Room POCT-GLUCOSE METER 2021-06-03 11:45:00 Test Item Value Reference Range Interpretation Comments POC-GLUCOSE METER 159 mg/dL 70-110 H : TESTED A T [facility] 6720 (BEAKER) (test code = [place] [facility], 1538) [address]: Meter Changes Records Clerk/Techni elsie ID = [id number] for Junie Gutiérrez POCT-GLUCOSE [id number] 09:28:00 Test Item Value Reference Range Interpretation Comments POC-GLUCOSE METER 163 mg/dL 70-110 H : TESTED A T [facility] 6720 (BEAKER) (test code = [place] [facility], 1538) [address]: Meter Changes Records Clerk/Techni elsie ID = [id number] for Junie Gutiérrez CBC W/PLT COUNT & AUTO [id number] 05:53:00 Test Item Value Reference Range Interpretation Comments WHITE BLOOD CELL COUNT (BEAKER) 6.9 K/ L 3.5-10.5 (test code = 775) RED BLOOD CELL COUNT (BEAKER) 3.16 M/ L 4.63-6.08 L (test code = 761) HEMOGLOBIN (BEAKER) (test code = 8.9 GM/DL 13.7-17.5 L 410) HEMATOCRIT (BEAKER) (test code = 29.4 % 40.1-51.0 L 411) MEAN CORPUSCULAR VOLUME (BEAKER) 93.0 fL 79.0-92.2 H (test code = 753) MEAN CORPUSCULAR HEMOGLOBIN 28.2 pg 25.7-32.2 (BEAKER) (test code = 751) MEAN CORPUSCULAR HEMOGLOBIN CONC 30.3 GM/DL 32.3-36.5 L (BEAKER) (test code = 752) RED CELL DISTRIBUTION WIDTH 15.5 % 11.6-14.4 H (BEAKER) (test code = 412) PLATELET COUNT (BEAKER) (test 251 K/CU MM 150-450 code = 756) MEAN PLATELET VOLUME (BEAKER) 10.1 fL 9.4-12.4 (test code = 754) NUCLEATED RED BLOOD CELLS 0 /100 WBC 0-0 (BEAKER) (test code = 413) NEUTROPHILS RELATIVE PERCENT 78 % (BEAKER) (test code = 429) LYMPHOCYTES RELATIVE PERCENT 4 % (BEAKER) (test code = 430) MONOCYTES RELATIVE PERCENT 15 % (BEAKER) (test code = 431) EOSINOPHILS RELATIVE PERCENT 1 % (BEAKER) (test code = 432) BASOPHILS RELATIVE PERCENT 0 % (BEAKER) (test code = 437) NEUTROPHILS ABSOLUTE COUNT 5.37 K/ L 1.78-5.38 (BEAKER) (test code = 670) LYMPHOCYTES ABSOLUTE COUNT 0.28 K/ L 1.32-3.57 L (BEAKER) (test code = 414) MONOCYTES ABSOLUTE COUNT (BEAKER) 1.00 K/ L 0.30-0.82 H (test code = 415) EOSINOPHILS ABSOLUTE COUNT 0.09 K/ L 0.04-0.54 (BEAKER) (test code = 416) BASOPHILS ABSOLUTE COUNT (BEAKER) 0.03 K/ L 0.01-0.08 (test code = 417) IMMATURE GRANULOCYTES-RELATIVE 2 % 0-1 H PERCENT (BEAKER) (test code = 2801) BASIC METABOLIC [id number] 05:41:00 Test Item Value Reference Range Interpretation Comments SODIUM (BEAKER) 136 meq/L 136-145 (test code = 381) POTASSIUM (BEAKER) 4.8 meq/L 3.5-5.1 (test code = 379) CHLORIDE (BEAKER) 99 meq/L 98-107 (test code = 382) CO2 (BEAKER) (test 28 meq/L 22-29 code = 355) BLOOD UREA NITROGEN 23 mg/dL 7-21 H (BEAKER) (test code = 354) CREATININE (BEAKER) 5.13 mg/dL 0.57-1.25 H (test code = 358) GLUCOSE RANDOM 157 mg/dL 70-105 H (BEAKER) (test code = 652) CALCIUM (BEAKER) 7.8 mg/dL 8.4-10.2 L (test code = 697) EGFR (BEAKER) (test 11 mL/min/1.73 ESTIMA NOVA GFR IS code = 1092) sq m NOT ACCURATE CREATININE CLEARANCE IN PREDICTING GLOMERULAR FILTRATION RATE . ESTIMATED GFR I S NOT APPLICABLE FOR DIALYSIS PATIEN TS. Meter Changes Records Clerk ID - JORDAN [id number] 05:22:00 Test Item Value Reference Range Interpretation Comments MAGNESIUM (BEAKER) (test code = 2.0 mg/dL 1.6-2.6 627) Meter Changes Records Clerk ID - JORDAN [id number] 05:22:00 Test Item Value Reference Range Interpretation Comments PHOSPHORUS (CONRAD) (test code = 4.8 mg/dL 2.3-4.7 H 604) Meter Changes Records Clerk ID - JORDAN MSARS-COV2/RT-PCR ([facility])2021-06-03 03:56:00 Test Item Value Reference Range Interpretation Comments SARS-COV2/RT-PCR (test code = Negative Negative [id number]) Negative result for this test determines that [...] occur if a specimen is improperly collected, transported, or handled. A false negative result should be considered if patient's recent exposures or clinical presentation indicate that COVID-19 (SARS-CoV-2) is likely and diagnostic tests for other causes of illness are negative. Re-testing should be considered in cases of suspected false negatives.The limit of detection for this assay is 100 copies/mL.This SARS-CoV-2 test is a real-time RT_PCR test intended for the qualitative detection of nucleic acid from SARS-CoV-2 in a nasopharyngeal swab specimen collected from individuals suspected of COVID-19 by their healthcare provider.This test has not been Food and Drug Administration (FDA) cleared or approved. This is a modified version of an approved Emergency Use Authorization (EUA) and is in the process of review by the FDA. Once authorized by the FDA, the issued EUA will be e ffective until the declaration that circumstances exist justifying the authorization of the emergency use of in vitro diagnostic tests for detection and/or diagnosis of COVID-19 is terminated under Section 564(b)(2) of the Act or the EUA is revoked under Section 564(g) of the Act.Testing was performedusing the [employer] SARS-CoV-2 assay.Fact Sheet for Healthcare Providers:https://[email or web address].zapata/tracy/RT SARS-CoV-2 HCP Fact Sheet 51- 811035.pdfFact Sheet for Healthcare Patients:https://[email or web address].zapata/tracy/RT SARS-CoV-2 Patient Fact Sheet EN 51-231061O8.pdfPROTHROMBIN TIME/[id number] 01:17:00 Test Item Value Reference Range Interpretation Comments PROTIME (CONRAD) 14.3 seconds 11.9-14.2 H (test code = 759) INR (CONRAD) (test 1.13 See_Comment [Automat ed message] code = 370) The system [employer] generated this result transmitted ref erence range: <=5.90. The reference range was not used to int erpret this result as normal/abnormal . RECOMMENDED COUMADIN/WARFARIN INR THERAPY RANGESSTANDARD DOSE: 2.0 - 3.0 Includes: PROPHYLAXIS forvenous thrombosis, systemic embolization; TREATMENT for venous thrombosis and/or pulmonary embolus.HIGH RISK: Target INR is 2.5-3.5 for patients with mechanical heart valves.POCT-GLUCOSE [id number] 21:22:00 Test Item Value Reference Range Interpretation Comments POC-GLUCOSE METER 150 mg/dL 70-110 H : TESTED A T [place] [address] (CONRAD) (test code = [facility], 153) [address]: Meter Changes Records Clerk/Techni elsie ID = [id number] for Hodan Mayo POCT-GLUCOSE [id number] 17:33:00 Test Item Value Reference Range Interpretation Comments POC-GLUCOSE METER 183 mg/dL 70-110 H : Notified RN/MD: (CONRAD) (test code = TESTED AT [place] [address] 1538) [facility], [address]: Meter Changes Records Clerk/Techni elsie ID = [id number] for Alexandrea Hernandez POCT-GLUCOSE [id number] 08:46:00 Test Item Value Reference Range Interpretation Comments POC-GLUCOSE METER 143 mg/dL 70-110 H : Notified RN/MD: (CONRAD) (test code = TESTED AT [place] [address] 1538) [facility], [address]: Meter Changes Records Clerk/Techni elsie ID = [id number] for Ender gonzales, Alexandrea BASIC METABOLIC [id number] 07:12:00 Test Item Value Reference Range Interpretation Comments SODIUM (BEAKER) 132 meq/L 136-145 L (test code = 381) POTASSIUM (AKER) 5.0 meq/L 3.5-5.1 (test code = 379) CHLORIDE (BEAKER) 96 meq/L 98-107 L (test code = 382) CO2 (BEAKER) (test 23 meq/L 22-29 code = 355) BLOOD UREA NITROGEN 37 mg/dL 7-21 H (BEAKER) (test code = 354) CREATININE (BEAKER) 6.99 mg/dL 0.57-1.25 H (test code = 358) GLUCOSE RANDOM 128 mg/dL 70-105 H (BEAKER) (test code = 652) CALCIUM (BEAKER) 7.9 mg/dL 8.4-10.2 L (test code = 697) EGFR (BEAKER) (test 8 mL/min/1.73 ESTIMAT ED GFR IS code = 1092) sq m NOT ACCURATE CREATININE CLEARANCE IN PREDICTING GLOMERULAR FILTRATION RATE . ESTIMATED GFR I S NOT APPLICABLE FOR DIALYSIS PATIEN TS. Meter Changes Records Clerk ID - JORDAN [id number] 07:04:00 Test Item Value Reference Range Interpretation Comments MAGNESIUM (BEAKER) (test code = 2.1 mg/dL 1.6-2.6 627) Meter Changes Records Clerk ID - JORDAN [id number] 07:04:00 Test Item Value Reference Range Interpretation Comments PHOSPHORUS (BEAKER) (test code = 5.7 mg/dL 2.3-4.7 H 604) Meter Changes Records Clerk ID - JORDAN MCBC W/PLT COUNT & AUTO [id number] 06:25:00 Test Item Value Reference Range Interpretation Comments WHITE BLOOD CELL COUNT (BEAKER) 6.4 K/ L 3.5-10.5 (test code = 775) RED BLOOD CELL COUNT (BEAKER) 3.26 M/ L 4.63-6.08 L (test code = 761) HEMOGLOBIN (BEAKER) (test code = 9.1 GM/DL 13.7-17.5 L 410) HEMATOCRIT (BEAKER) (test code = 29.9 % 40.1-51.0 L 411) MEAN CORPUSCULAR VOLUME (BEAKER) 91.7 fL 79.0-92.2 (test code = 753) MEAN CORPUSCULAR HEMOGLOBIN 27.9 pg 25.7-32.2 (BEAKER) (test code = 751) MEAN CORPUSCULAR HEMOGLOBIN CONC 30.4 GM/DL 32.3-36.5 L (BEAKER) (test code = 752) RED CELL DISTRIBUTION WIDTH 15.3 % 11.6-14.4 H (BEAKER) (test code = 412) PLATELET COUNT (BEAKER) (test 247 K/CU MM 150-450 code = 756) MEAN PLATELET VOLUME (BEAKER) 9.5 fL 9.4-12.4 (test code = 754) NUCLEATED RED BLOOD CELLS 0 /100 WBC 0-0 (BEAKER) (test code = 413) NEUTROPHILS RELATIVE PERCENT 79 % (BEAKER) (test code = 429) LYMPHOCYTES RELATIVE PERCENT 5 % (BEAKER) (test code = 430) MONOCYTES RELATIVE PERCENT 13 % (BEAKER) (test code = 431) EOSINOPHILS RELATIVE PERCENT 2 % (BEAKER) (test code = 432) BASOPHILS RELATIVE PERCENT 0 % (BEAKER) (test code = 437) NEUTROPHILS ABSOLUTE COUNT 5.07 K/ L 1.78-5.38 (BEAKER) (test code = 670) LYMPHOCYTES ABSOLUTE COUNT 0.31 K/ L 1.32-3.57 L (BEAKER) (test code = 414) MONOCYTES ABSOLUTE COUNT (BEAKER) 0.82 K/ L 0.30-0.82 (test code = 415) EOSINOPHILS ABSOLUTE COUNT 0.10 K/ L 0.04-0.54 (BEAKER) (test code = 416) BASOPHILS ABSOLUTE COUNT (BEAKER) 0.02 K/ L 0.01-0.08 (test code = 417) IMMATURE GRANULOCYTES-RELATIVE 1 % 0-1 PERCENT (BEAKER) (test code = 2801) POCT-GLUCOSE [id number] 21:18:00 Test Item Value Reference Range Interpretation Comments POC-GLUCOSE METER 117 mg/dL 70-110 H : TESTED A T [facility] 6720 (BANNER) (test code = [facility] [place] [facility], 1538) [address]: Meter Changes Records Clerk/Techni elsie ID = [id number] for Luis Hodan snider POCT-GLUCOSE [id number] 18:18:00 Test Item Value Reference Range Interpretation Comments POC-GLUCOSE METER 123 mg/dL 70-110 H : Notified RN/MD: (BANNER) (test code = TESTED AT [facility] 6720 153) [facility], [address]: Meter Changes Records Clerk/Techni elsie ID = [id number] for Alexandrea Hernandez POCT-GLUCOSE [id number] 12:40:00 Test Item Value Reference Range Interpretation Comments POC-GLUCOSE METER 169 mg/dL 70-110 H : Notified RN/MD: (CONRAD) (test code = TESTED AT [place] [address] 1538) [facility], [address]: Meter Changes Records Clerk/Techni elsie ID = [id number] for Alexandrea Hernandez POCT-GLUCOSE [id number] 08:51:00 Test Item Value Reference Range Interpretation Comments POC-GLUCOSE METER 119 mg/dL 70-110 H : Notified RN/MD: (CONRAD) (test code = TESTED AT [facility] 67 1538) [facility], [address]: Meter Changes Records Clerk/Techni elsie ID = [id number] for Alexandrea Hernandez BASIC METABOLIC [id number] 06:37:00 Test Item Value Reference Range Interpretation Comments SODIUM (BEAKER) 135 meq/L 136-145 L (test code = 381) POTASSIUM (BEAKER) 4.8 meq/L 3.5-5.1 (test code = 379) CHLORIDE (BEAKER) 97 meq/L 98-107 L (test code = 382) CO2 (BEAKER) (test 27 meq/L 22-29 code = 355) BLOOD UREA NITROGEN 31 mg/dL 7-21 H (BEAKER) (test code = 354) CREATININE (BEAKER) 6.07 mg/dL 0.57-1.25 H (test code = 358) GLUCOSE RANDOM 129 mg/dL 70-105 H (BEAKER) (test code = 652) CALCIUM (BEAKER) 7.9 mg/dL 8.4-10.2 L (test code = 697) EGFR (BEAKER) (test 9 mL/min/1.73 ESTIMAT ED GFR IS code = 1092) sq m NOT ACCURATE CREATININE CLEARANCE IN PREDICTING GLOMERULAR FILTRATION RATE . ESTIMATED GFR I S NOT APPLICABLE FOR DIALYSIS PATIEN TS. Meter Changes Records Clerk ID - MAGEN [id number] 06:34:00 Test Item Value Reference Range Interpretation Comments MAGNESIUM (BEAKER) (test code = 2.1 mg/dL 1.6-2.6 627) Meter Changes Records Clerk ID - MAGEN [id number] 06:34:00 Test Item Value Reference Range Interpretation Comments PHOSPHORUS (BEAKER) (test code = 5.1 mg/dL 2.3-4.7 H 604) Meter Changes Records Clerk ID - MAGEN WCBC W/PLT COUNT & AUTO [id number] 05:46:00 Test Item Value Reference Range Interpretation Comments WHITE BLOOD CELL COUNT (BEAKER) 6.1 K/ L 3.5-10.5 (test code = 775) RED BLOOD CELL COUNT (BEAKER) 3.37 M/ L 4.63-6.08 L (test code = 761) HEMOGLOBIN (BEAKER) (test code = 9.3 GM/DL 13.7-17.5 L 410) HEMATOCRIT (BEAKER) (test code = 31.4 % 40.1-51.0 L 411) MEAN CORPUSCULAR VOLUME (BEAKER) 93.2 fL 79.0-92.2 H (test code = 753) MEAN CORPUSCULAR HEMOGLOBIN 27.6 pg 25.7-32.2 (BEAKER) (test code = 751) MEAN CORPUSCULAR HEMOGLOBIN CONC 29.6 GM/DL 32.3-36.5 L (BEAKER) (test code = 752) RED CELL DISTRIBUTION WIDTH 15.5 % 11.6-14.4 H (BEAKER) (test code = 412) PLATELET COUNT (BEAKER) (test 233 K/CU MM 150-450 code = 756) MEAN PLATELET VOLUME (BEAKER) 9.7 fL 9.4-12.4 (test code = 754) NUCLEATED RED BLOOD CELLS 0 /100 WBC 0-0 (BEAKER) (test code = 413) NEUTROPHILS RELATIVE PERCENT 76 % (BEAKER) (test code = 429) LYMPHOCYTES RELATIVE PERCENT 5 % (BEAKER) (test code = 430) MONOCYTES RELATIVE PERCENT 14 % (BEAKER) (test code = 431) EOSINOPHILS RELATIVE PERCENT 2 % (BEAKER) (test code = 432) BASOPHILS RELATIVE PERCENT 0 % (BEAKER) (test code = 437) NEUTROPHILS ABSOLUTE COUNT 4.66 K/ L 1.78-5.38 (BEAKER) (test code = 670) LYMPHOCYTES ABSOLUTE COUNT 0.33 K/ L 1.32-3.57 L (BEAKER) (test code = 414) MONOCYTES ABSOLUTE COUNT (BEAKER) 0.88 K/ L 0.30-0.82 H (test code = 415) EOSINOPHILS ABSOLUTE COUNT 0.13 K/ L 0.04-0.54 (BEAKER) (test code = 416) BASOPHILS ABSOLUTE COUNT (BEAKER) 0.02 K/ L 0.01-0.08 (test code = 417) IMMATURE GRANULOCYTES-RELATIVE 2 % 0-1 H PERCENT (BEAKER) (test code = 2801) POCT-GLUCOSE [id number] 21:36:00 Test Item Value Reference Range Interpretation Comments POC-GLUCOSE METER 160 mg/dL 70-110 H : TESTED A T [facility] 6720 (BEAKER) (test code = [facility], 1538) [address]: Meter Changes Records Clerk/Techni elsie ID = [id number] for LI WILMAN RAMIREZ POCT-GLUCOSE [id number] 17:16:00 Test Item Value Reference Range Interpretation Comments POC-GLUCOSE METER 151 mg/dL 70-110 H : TESTED A T [facility] 6720 (BEAKER) (test code = [facility], 1538) [address]: Meter Changes Records Clerk/Techni elsie ID = [id number] for CA STRO, LUCY POCT-GLUCOSE [id number] 12:22:00 Test Item Value Reference Range Interpretation Comments POC-GLUCOSE METER 153 mg/dL 70-110 H : TESTED A T [facility] 6720 (BEAKER) (test code = [facility], 1538) [address]: Meter Changes Records Clerk/Techni elsie ID = [id number] for CA STRO, LUCY BASIC METABOLIC [id number] 04:46:00 Test Item Value Reference Range Interpretation Comments SODIUM (BEAKER) 136 meq/L 136-145 (test code = 381) POTASSIUM (BEAKER) 4.5 meq/L 3.5-5.1 (test code = 379) CHLORIDE (BEAKER) 99 meq/L 98-107 (test code = 382) CO2 (BEAKER) (test 28 meq/L 22-29 code = 355) BLOOD UREA NITROGEN 23 mg/dL 7-21 H (BEAKER) (test code = 354) CREATININE (BEAKER) 4.62 mg/dL 0.57-1.25 H (test code = 358) GLUCOSE RANDOM 114 mg/dL 70-105 H (BEAKER) (test code = 652) CALCIUM (BEAKER) 7.8 mg/dL 8.4-10.2 L (test code = 697) EGFR (BEAKER) (test 13 mL/min/1.73 ESTIMA NOVA GFR IS code = 1092) sq m NOT ACCURATE CREATININE CLEARANCE IN PREDICTING GLOMERULAR FILTRATION RATE . ESTIMATED GFR I S NOT APPLICABLE FOR DIALYSIS PATIEN TS. Meter Changes Records Clerk ID - MAGEN [id number] 04:25:00 Test Item Value Reference Range Interpretation Comments MAGNESIUM (BEAKER) (test code = 2.0 mg/dL 1.6-2.6 627) Meter Changes Records Clerk ID - MAGEN [id number] 04:25:00 Test Item Value Reference Range Interpretation Comments PHOSPHORUS (BEAKER) (test code = 4.3 mg/dL 2.3-4.7 604) Meter Changes Records Clerk ID - MAGEN WCBC W/PLT COUNT & AUTO [id number] 03:56:00 Test Item Value Reference Range Interpretation Comments WHITE BLOOD CELL COUNT (BEAKER) 5.8 K/ L 3.5-10.5 (test code = 775) RED BLOOD CELL COUNT (BEAKER) 3.15 M/ L 4.63-6.08 L (test code = 761) HEMOGLOBIN (BEAKER) (test code = 8.6 GM/DL 13.7-17.5 L 410) HEMATOCRIT (BEAKER) (test code = 28.9 % 40.1-51.0 L 411) MEAN CORPUSCULAR VOLUME (BEAKER) 91.7 fL 79.0-92.2 (test code = 753) MEAN CORPUSCULAR HEMOGLOBIN 27.3 pg 25.7-32.2 (BEAKER) (test code = 751) MEAN CORPUSCULAR HEMOGLOBIN CONC 29.8 GM/DL 32.3-36.5 L (BEAKER) (test code = 752) RED CELL DISTRIBUTION WIDTH 15.6 % 11.6-14.4 H (BEAKER) (test code = 412) PLATELET COUNT (BEAKER) (test 220 K/CU MM 150-450 code = 756) MEAN PLATELET VOLUME (BEAKER) 10.2 fL 9.4-12.4 (test code = 754) NUCLEATED RED BLOOD CELLS 0 /100 WBC 0-0 (BEAKER) (test code = 413) NEUTROPHILS RELATIVE PERCENT 78 % (BEAKER) (test code = 429) LYMPHOCYTES RELATIVE PERCENT 5 % (BEAKER) (test code = 430) MONOCYTES RELATIVE PERCENT 14 % (BEAKER) (test code = 431) EOSINOPHILS RELATIVE PERCENT 2 % (BEAKER) (test code = 432) BASOPHILS RELATIVE PERCENT 0 % (BEAKER) (test code = 437) NEUTROPHILS ABSOLUTE COUNT 4.54 K/ L 1.78-5.38 (BEAKER) (test code = 670) LYMPHOCYTES ABSOLUTE COUNT 0.31 K/ L 1.32-3.57 L (BEAKER) (test code = 414) MONOCYTES ABSOLUTE COUNT (BEAKER) 0.79 K/ L 0.30-0.82 (test code = 415) EOSINOPHILS ABSOLUTE COUNT 0.11 K/ L 0.04-0.54 (BEAKER) (test code = 416) BASOPHILS ABSOLUTE COUNT (BEAKER) 0.02 K/ L 0.01-0.08 (test code = 417) IMMATURE GRANULOCYTES-RELATIVE 1 % 0-1 PERCENT (BEAKER) (test code = 2801) POCT-GLUCOSE [id number] 21:39:00 Test Item Value Reference Range Interpretation Comments POC-GLUCOSE METER 183 mg/dL 70-110 H : TESTED A T [facility] 6720 (BEAKER) (test code = [facility], 1538) [address]: Meter Changes Records Clerk/Techni elsie ID = [id number] for WILMAN BIRD RA POCT-GLUCOSE [id number] 17:38:00 Test Item Value Reference Range Interpretation Comments POC-GLUCOSE METER 145 mg/dL 70-110 H : TESTED A T [facility] 6720 (BEAKER) (test code = [facility], 1538) [address]: Meter Changes Records Clerk/Techni elsie ID = [id number] for IB RAHIM, [place] POCT-GLUCOSE [id number] 12:58:00 Test Item Value Reference Range Interpretation Comments POC-GLUCOSE METER 122 mg/dL 70-110 H : TESTED A T [facility] 6720 (BEAKER) (test code = [facility], 1538) [address]: Meter Changes Records Clerk/Techni elsie ID = [id number] for IB RAHIM, [place] BASIC METABOLIC [id number] 06:52:00 Test Item Value Reference Range Interpretation Comments SODIUM (BEAKER) 134 meq/L 136-145 L (test code = 381) POTASSIUM (BEAKER) 5.0 meq/L 3.5-5.1 (test code = 379) CHLORIDE (BEAKER) 98 meq/L 98-107 (test code = 382) CO2 (BEAKER) (test 26 meq/L 22-29 code = 355) BLOOD UREA NITROGEN 35 mg/dL 7-21 H (BEAKER) (test code = 354) CREATININE (BEAKER) 6.04 mg/dL 0.57-1.25 H (test code = 358) GLUCOSE RANDOM 144 mg/dL 70-105 H (BEAKER) (test code = 652) CALCIUM (BEAKER) 7.7 mg/dL 8.4-10.2 L (test code = 697) EGFR (BEAKER) (test 9 mL/min/1.73 ESTIMAT ED GFR IS code = 1092) sq m NOT ACCURATE CREATININE CLEARANCE IN PREDICTING GLOMERULAR FILTRATION RATE . ESTIMATED GFR I S NOT APPLICABLE FOR DIALYSIS PATIEN TS. Meter Changes Records Clerk ID - JORDAN [id number] 06:36:00 Test Item Value Reference Range Interpretation Comments MAGNESIUM (BEAKER) (test code = 2.1 mg/dL 1.6-2.6 627) Meter Changes Records Clerk ID - JORDAN [id number] 06:36:00 Test Item Value Reference Range Interpretation Comments PHOSPHORUS (BEAKER) (test code = 5.0 mg/dL 2.3-4.7 H 604) Meter Changes Records Clerk ID - JORDAN [facility] W/PLT COUNT & AUTO [id number] 06:13:00 Test Item Value Reference Range Interpretation Comments WHITE BLOOD CELL COUNT (BEAKER) 6.4 K/ L 3.5-10.5 (test code = 775) RED BLOOD CELL COUNT (BEAKER) 3.09 M/ L 4.63-6.08 L (test code = 761) HEMOGLOBIN (BEAKER) (test code = 8.5 GM/DL 13.7-17.5 L 410) HEMATOCRIT (BEAKER) (test code = 28.2 % 40.1-51.0 L 411) MEAN CORPUSCULAR VOLUME (BEAKER) 91.3 fL 79.0-92.2 (test code = 753) MEAN CORPUSCULAR HEMOGLOBIN 27.5 pg 25.7-32.2 (BEAKER) (test code = 751) MEAN CORPUSCULAR HEMOGLOBIN CONC 30.1 GM/DL 32.3-36.5 L (BEAKER) (test code = 752) RED CELL DISTRIBUTION WIDTH 15.7 % 11.6-14.4 H (BEAKER) (test code = 412) PLATELET COUNT (BEAKER) (test 209 K/CU MM 150-450 code = 756) MEAN PLATELET VOLUME (BEAKER) 9.8 fL 9.4-12.4 (test code = 754) NUCLEATED RED BLOOD CELLS 0 /100 WBC 0-0 (BEAKER) (test code = 413) NEUTROPHILS RELATIVE PERCENT 82 % (BEAKER) (test code = 429) LYMPHOCYTES RELATIVE PERCENT 4 % (BEAKER) (test code = 430) MONOCYTES RELATIVE PERCENT 11 % (BEAKER) (test code = 431) EOSINOPHILS RELATIVE PERCENT 2 % (BEAKER) (test code = 432) BASOPHILS RELATIVE PERCENT 0 % (BEAKER) (test code = 437) NEUTROPHILS ABSOLUTE COUNT 5.20 K/ L 1.78-5.38 (BEAKER) (test code = 670) LYMPHOCYTES ABSOLUTE COUNT 0.25 K/ L 1.32-3.57 L (BEAKER) (test code = 414) MONOCYTES ABSOLUTE COUNT (BEAKER) 0.72 K/ L 0.30-0.82 (test code = 415) EOSINOPHILS ABSOLUTE COUNT 0.12 K/ L 0.04-0.54 (BEAKER) (test code = 416) BASOPHILS ABSOLUTE COUNT (BEAKER) 0.02 K/ L 0.01-0.08 (test code = 417) IMMATURE GRANULOCYTES-RELATIVE 1 % 0-1 PERCENT (BEAKER) (test code = 2801) POCT-GLUCOSE [id number] 21:35:00 Test Item Value Reference Range Interpretation Comments POC-GLUCOSE METER 132 mg/dL 70-110 H : TESTED A T [facility] 6720 (BEAKER) (test code = [facility], 1538) [id number]: Meter Changes Records Clerk/Techni elsie ID = [id number] for WILMAN BIRD RA POCT-GLUCOSE [id number] 17:32:00 Test Item Value Reference Range Interpretation Comments POC-GLUCOSE METER 140 mg/dL 70-110 H : TESTED A T [facility] 6720 (BEAKER) (test code = [place], 1538) [address]: Meter Changes Records Clerk/Techni elsie ID = [id number] for FAHAD CASTAÑEDA POCT-GLUCOSE [id number] 11:19:00 Test Item Value Reference Range Interpretation Comments POC-GLUCOSE METER 159 mg/dL 70-110 H : TESTED A T [facility] 6720 (BEAKER) (test code = [place], 1538) [address]: Meter Changes Records Clerk/Techni elsie ID = [id number] for IB FAHAD QUEZADA BASIC METABOLIC [id number] 08:10:00 Test Item Value Reference Range Interpretation Comments SODIUM (BEAKER) 136 meq/L 136-145 (test code = 381) POTASSIUM (BEAKER) 4.4 meq/L 3.5-5.1 (test code = 379) CHLORIDE (BEAKER) 100 meq/L 98-107 (test code = 382) CO2 (BEAKER) (test 29 meq/L 22-29 code = 355) BLOOD UREA NITROGEN 27 mg/dL 7-21 H (BEAKER) (test code = 354) CREATININE (BEAKER) 4.94 mg/dL 0.57-1.25 H (test code = 358) GLUCOSE RANDOM 145 mg/dL 70-105 H (BEAKER) (test code = 652) CALCIUM (BEAKER) 7.5 mg/dL 8.4-10.2 L (test code = 697) EGFR (BEAKER) (test 12 mL/min/1.73 ESTIMA NOVA GFR IS code = 1092) sq m NOT ACCURATE CREATININE CLEARANCE IN PREDICTING GLOMERULAR FILTRATION RATE . ESTIMATED GFR I S NOT APPLICABLE FOR DIALYSIS PATIEN TS. Meter Changes Records Clerk ID - DAREK [id number] 08:05:00 Test Item Value Reference Range Interpretation Comments MAGNESIUM (BEAKER) (test code = 1.9 mg/dL 1.6-2.6 627) Meter Changes Records Clerk ID - DAREK [id number] 08:05:00 Test Item Value Reference Range Interpretation Comments PHOSPHORUS (BEAKER) (test code = 4.3 mg/dL 2.3-4.7 604) Meter Changes Records Clerk ID - DAREK MPOCT-GLUCOSE [id number] 07:57:00 Test Item Value Reference Range Interpretation Comments POC-GLUCOSE METER 144 mg/dL 70-110 H : TESTED A T [facility] 6720 (BEAKER) (test code = [place], 1538) [address]: Meter Changes Records Clerk/Techni elsie ID = [id number] for FAHAD CASTAÑEDA CBC W/PLT COUNT & AUTO [id number] 07:45:00 Test Item Value Reference Range Interpretation Comments WHITE BLOOD CELL COUNT (BEAKER) 6.5 K/ L 3.5-10.5 (test code = 775) RED BLOOD CELL COUNT (BEAKER) 3.20 M/ L 4.63-6.08 L (test code = 761) HEMOGLOBIN (BEAKER) (test code = 8.9 GM/DL 13.7-17.5 L 410) HEMATOCRIT (BEAKER) (test code = 29.4 % 40.1-51.0 L 411) MEAN CORPUSCULAR VOLUME (BEAKER) 91.9 fL 79.0-92.2 (test code = 753) MEAN CORPUSCULAR HEMOGLOBIN 27.8 pg 25.7-32.2 (BEAKER) (test code = 751) MEAN CORPUSCULAR HEMOGLOBIN CONC 30.3 GM/DL 32.3-36.5 L (BEAKER) (test code = 752) RED CELL DISTRIBUTION WIDTH 15.8 % 11.6-14.4 H (BEAKER) (test code = 412) PLATELET COUNT (BEAKER) (test 210 K/CU MM 150-450 code = 756) MEAN PLATELET VOLUME (BEAKER) 10.4 fL 9.4-12.4 (test code = 754) NUCLEATED RED BLOOD CELLS 0 /100 WBC 0-0 (BEAKER) (test code = 413) NEUTROPHILS RELATIVE PERCENT 80 % (BEAKER) (test code = 429) LYMPHOCYTES RELATIVE PERCENT 4 % (BEAKER) (test code = 430) MONOCYTES RELATIVE PERCENT 12 % (BEAKER) (test code = 431) EOSINOPHILS RELATIVE PERCENT 3 % (BEAKER) (test code = 432) BASOPHILS RELATIVE PERCENT 0 % (BEAKER) (test code = 437) NEUTROPHILS ABSOLUTE COUNT 5.19 K/ L 1.78-5.38 (BEAKER) (test code = 670) LYMPHOCYTES ABSOLUTE COUNT 0.27 K/ L 1.32-3.57 L (BEAKER) (test code = 414) MONOCYTES ABSOLUTE COUNT (BEAKER) 0.80 K/ L 0.30-0.82 (test code = 415) EOSINOPHILS ABSOLUTE COUNT 0.17 K/ L 0.04-0.54 (BEAKER) (test code = 416) BASOPHILS ABSOLUTE COUNT (BEAKER) 0.02 K/ L 0.01-0.08 (test code = 417) IMMATURE GRANULOCYTES-RELATIVE 1 % 0-1 PERCENT (BEAKER) (test code = 2801) POCT-GLUCOSE [id number] 21:17:00 Test Item Value Reference Range Interpretation Comments POC-GLUCOSE METER 162 mg/dL 70-110 H : TESTED A T [facility] 6720 (BEAKER) (test code = [facility], 1538) [address]: Meter Changes Records Clerk/Techni elsie ID = [id number] for Hodan Mayo POCT-GLUCOSE [id number] 17:43:00 Test Item Value Reference Range Interpretation Comments POC-GLUCOSE METER 129 mg/dL 70-110 H : TESTED A T [facility] 6720 (BEAKER) (test code = [facility], 1538) 93[address]: Meter Changes Records Clerk/Techni elsie ID = [id number] for Riri Edwin pop U/S, [id number] 15:28:00DR STRIBLINGLabs to be ordered:->Body Fluid Culture (w/Gram Stain, C\T\S)Labs to be ordered:->G lucose+LDH+ProteinLabs to be ordered:->Cell CountLabs to be ordered:- >CytologyReason for exam:->ascites [facility] 1955 Sex: MFINAL REPORT Ultrasound guided paracentesis Clinical History: Ascites. Sedation: None. Shook Splicer: Michelle Wilson PA-C Supervising Physician: Scott Alcazar MD Brake Coupler Dinkey: None. Estimated Blood Loss: < 1 mL. Specimen: 10,000 mL of clear yellow fluid, samples sent to laboratory. Technique: Informed consent was obtained. The risks of pain, bleeding, infection, bowel perforation, injury to adjacent structures, and adverse medication reactions were discussed with the patient. After informed consent was obtained, the patient's abdomen was scanned. The right upper quadrant of the abdomen was selected for paracentesis. After the largest fluid pocket area was marked, and the anterior abdominal wall was evaluated with color Doppler to exclude presence of blood vessels traversing the area, the skin was prepped and draped in the usual sterile manner. After local anesthesia was achieved with lidocaine, a 5 Burmese one-step catheter was advanced into the peritoneal cavity under ultrasound guidance. After completion of drainage, the catheter was removed. There was no evidence of complication. Impression:Successful ultrasound guided paracentesis. Signed: Scott Alcazar MDRepcrittenton behavioral health Verified Date/Time: 05/28/2021 15:28:45 Reading Location: [address] Ultrasound Reading Room RAD, CHEST, 1 VIEW, NON [id number] 12:52:00DR STRIBLINGReason for exam:->interval change, pleural effusionShould this be performed at the bedside?->Yes [facility] 1955 Sex: MFINAL REPORT TECHNIQUE: Frontal view of the chest. INDICATION: interval change, pleural effusion COMPARISON: 05/25/2021. FINDINGS: LINES/TUBES: Chest wall pacer device. LUNGS:Increase in size of moderate to large right-sided pleural effusion and associated opacity in the right lung. Small left pleural effusion and basilar atelectasis remain unchanged. No pneumothorax. HEARTAND MEDIASTINUM: The cardiomediastinal silhouette is enlarged, unchanged. Postsurgical changes from median sternotomy.. SOFT TISSUES AND BONES: Unremarkable. IMPRESSION:Increasing moderate to large right-sided pleural effusion. Small Left-sided pleural effusions unchanged.. Signed: Rober Beard MDReport Verified Date/Time: 05/28/2021 12:52:22 Reading Location: [facility] Diagnostic Imaging Reading Room - [place] [address] POCT-GLUCOSE [id number] 12:06:00 Test Item Value Reference Range Interpretation Comments POC-GLUCOSE METER 157 mg/dL 70-110 H : TESTED A T [facility] 67 (BANNER) (test code = [facility], 1538) 74[address]: Meter Changes Records Clerk/Techni elsie ID = [id number] for Yuki redia (pca2), Shayna BODY FLUID CULTURE + GRAM [id number] 09:41:00 Test Item Value Reference Range Interpretation Comments CULTURE (BEAKER) (test code No growth = 1095) GRAM STAIN RESULT (BEAKER) 1+ WBCs (test code = 1123) GRAM STAIN RESULT (BEAKER) No organisms seen (test code = 16025) POCT-GLUCOSE [id number] 08:28:00 Test Item Value Reference Range Interpretation Comments POC-GLUCOSE METER 123 mg/dL 70-110 H : Notified RN/MD: (BANNER) (test code = TESTED AT [facility] 6720 1538) [facility], [address]: Meter Changes Records Clerk/Techni elsie ID = [id number] for Ma cawili (pca2), [place] [id number] 08:10:00 Test Item Value Reference Range Interpretation Comments MAGNESIUM (BEAKER) (test code = 1.8 mg/dL 1.6-2.6 627) Meter Changes Records Clerk ID - PATRICIA [facility] METABOLIC [id number] 07:50:00 Test Item Value Reference Range Interpretation Comments SODIUM (BEAKER) 134 meq/L 136-145 L (test code = 381) POTASSIUM (BEAKER) 4.8 meq/L 3.5-5.1 (test code = 379) CHLORIDE (BEAKER) 97 meq/L 98-107 L (test code = 382) CO2 (BEAKER) (test 25 meq/L 22-29 code = 355) BLOOD UREA NITROGEN 45 mg/dL 7-21 H (BEAKER) (test code = 354) CREATININE (BEAKER) 6.91 mg/dL 0.57-1.25 H (test code = 358) GLUCOSE RANDOM 113 mg/dL 70-105 H (BEAKER) (test code = 652) CALCIUM (BEAKER) 7.2 mg/dL 8.4-10.2 L (test code = 697) EGFR (BEAKER) (test 8 mL/min/1.73 ESTIMAT ED GFR IS code = 1092) sq m NOT ACCURATE CREATININE CLEARANCE IN PREDICTING GLOMERULAR FILTRATION RATE . ESTIMATED GFR I S NOT APPLICABLE FOR DIALYSIS PATIEN TS. Meter Changes Records Clerk ID - PIAYA [id number] 07:35:00 Test Item Value Reference Range Interpretation Comments PHOSPHORUS (BEAKER) (test code = 5.7 mg/dL 2.3-4.7 H 604) Meter Changes Records Clerk ID - PIROSS LCBC W/PLT COUNT & AUTO [id number] 07:06:00 Test Item Value Reference Range Interpretation Comments WHITE BLOOD CELL COUNT (BEAKER) 6.7 K/ L 3.5-10.5 (test code = 775) RED BLOOD CELL COUNT (BEAKER) 3.19 M/ L 4.63-6.08 L (test code = 761) HEMOGLOBIN (BEAKER) (test code = 8.8 GM/DL 13.7-17.5 L 410) HEMATOCRIT (BEAKER) (test code = 29.3 % 40.1-51.0 L 411) MEAN CORPUSCULAR VOLUME (BEAKER) 91.8 fL 79.0-92.2 (test code = 753) MEAN CORPUSCULAR HEMOGLOBIN 27.6 pg 25.7-32.2 (BEAKER) (test code = 751) MEAN CORPUSCULAR HEMOGLOBIN CONC 30.0 GM/DL 32.3-36.5 L (BEAKER) (test code = 752) RED CELL DISTRIBUTION WIDTH 15.9 % 11.6-14.4 H (BEAKER) (test code = [...] (test code = 430) MONOCYTES RELATIVE PERCENT 12 % (BEAKER) (test code = 431) EOSINOPHILS RELATIVE PERCENT 3 % (BEAKER) (test code = 432) BASOPHILS RELATIVE PERCENT 0 % (BEAKER) (test code = 437) NEUTROPHILS ABSOLUTE COUNT 5.28 K/ L 1.78-5.38 (BEAKER) (test code = 670) LYMPHOCYTES ABSOLUTE COUNT 0.28 K/ L 1.32-3.57 L (BEAKER) (test code = 414) MONOCYTES ABSOLUTE COUNT (BEAKER) 0.80 K/ L 0.30-0.82 (test code = 415) EOSINOPHILS ABSOLUTE COUNT 0.20 K/ L 0.04-0.54 (BEAKER) (test code = 416) BASOPHILS ABSOLUTE COUNT (BEAKER) 0.02 K/ L 0.01-0.08 (test code = 417) IMMATURE GRANULOCYTES-RELATIVE 1 % 0-1 PERCENT (BEAKER) (test code = 2801) POCT-GLUCOSE [id number] 21:19:00 Test Item Value Reference Range Interpretation Comments POC-GLUCOSE METER 126 mg/dL 70-110 H : TESTED A T [facility] 6720 (BANNER) (test code = [facility] Melodie [facility], 1538) [address]: Meter Changes Records Clerk/Techni elsie ID = [id number] for Arlet Yanes POCT-GLUCOSE [id number] 18:22:00 Test Item Value Reference Range Interpretation Comments POC-GLUCOSE METER 164 mg/dL 70-110 H : Notified RN/MD: (BANNER) (test code = TESTED AT [facility] 6720 1538) [facility] [address]: Meter Changes Records Clerk/Techni elsie ID = [id number] for Yuki caballero (pca2), [place] POCT-GLUCOSE [id number] 13:51:00 Test Item Value Reference Range Interpretation Comments POC-GLUCOSE METER 114 mg/dL 70-110 H : Notified RN/MD: (CONRAD) (test code = TESTED AT [facility] 2690 0049) [facility], [address]: Meter Changes Records Clerk/Techni elsie ID = [id number] for Yuki caballero (pca2), Nohelia [id number] 11:15:00Medical Cytology Report Case: [id number] Authorizing Provider: Rome Bhatti MD Collected: 05/26/2021 10:25 AM Ordering Location: [facility] Emergency Department Received: 05/26/2021 01:28 PM Pathologist: Silvestre Le MD Specimen: Peritoneal Fluid PERITONEAL FLUID (CYTOSPINS AND CELL BLOCK): -NEGATIVE FOR MALIGNANCY Signing Pathologist Direct Phone Line: Reactive mesothelial cells are present.[id number], [id number]; history of chronic systolic/diastolic heart failure, cirrhosis, DM, hypothyroidism, HLD, chronic hypotension, CAD, chronic anemia, ESRD presented with abdominal distension, decreased uop, burning of foreskin and penisPERITONEAL FLUIDReceived 1500 ml clear, yellow fluid; prepared 4 cytospins and cell block(A2) - cell block prepared using a collodion bag andfixed in formalin at 5:02 pm on 05/26/21Performed. SatisfactoryB[facility], Department of Pathology, [address] [place] [address], [facility]bfs[facility], Department of Pathology, [address] [place] [address], [facility]bbpamFresno [facility], Department of Pathology, [address] [place] [address], WTHXQII DEHYDROGENASE (LDH), BODY [id number] 10:45:00 Test Item Value Reference Range Interpretation Comments LACTATE DEHYDROGENASE FLUID (CONRAD) 123 U/L (test code = 634) Absence of reference range indicates that normals have not been defined.Assay performance has not been validated for this type of specimen.Meter Changes Records Clerk ID - [id number], BODY [id number] 10:41:00 Test Item Value Reference Range Interpretation Comments PROTEIN FLUID (BEAKER) (test code = 5.4 g/dL 579) Absence of reference range indicates that normals have not been defined.Assay performance has not been validated for this type of specimen.Meter Changes Records Clerk ID - [id number] 09:21:00 Test Item Value Reference Range Interpretation Comments POC-GLUCOSE METER 134 mg/dL 70-110 H : [facility] (BEAKER) (test code = [place], 1538) [address]: Meter Changes Records Clerk/Techni elsie ID = [id number] for CA STROLUCY BASIC METABOLIC [id number] 07:43:00 Test Item Value Reference Range Interpretation Comments SODIUM (BEAKER) 137 meq/L 136-145 (test code = 381) POTASSIUM (BEAKER) 4.6 meq/L 3.5-5.1 (test code = 379) CHLORIDE (BEAKER) 99 meq/L 98-107 (test code = 382) CO2 (BEAKER) (test 26 meq/L 22-29 code = 355) BLOOD UREA NITROGEN 35 mg/dL 7-21 H (BEAKER) (test code = 354) CREATININE (BEAKER) 5.20 mg/dL 0.57-1.25 H (test code = 358) GLUCOSE RANDOM 126 mg/dL 70-105 H (BEAKER) (test code = 652) CALCIUM (BEAKER) 7.8 mg/dL 8.4-10.2 L (test code = 697) EGFR (BEAKER) (test 11 mL/min/1.73 ESTIMA NOVA GFR IS code = 1092) sq m NOT ACCURATE CREATININE CLEARANCE IN PREDICTING GLOMERULAR FILTRATION RATE . ESTIMATED GFR I S NOT APPLICABLE FOR DIALYSIS PATIEN TS. Meter Changes Records Clerk ID - MAGEN [id number] 07:42:00 Test Item Value Reference Range Interpretation Comments MAGNESIUM (BEAKER) (test code = 2.0 mg/dL 1.6-2.6 627) Meter Changes Records Clerk ID - MAGEN [id number] 07:42:00 Test Item Value Reference Range Interpretation Comments PHOSPHORUS (BEAKER) (test code = 4.4 mg/dL 2.3-4.7 604) Meter Changes Records Clerk BERNIE US WCBC W/PLT COUNT & AUTO [id number] 06:55:00 Test Item Value Reference Range Interpretation Comments WHITE BLOOD CELL COUNT (BEAKER) 6.8 K/ L 3.5-10.5 (test code = 775) RED BLOOD CELL COUNT (BEAKER) 3.45 M/ L 4.63-6.08 L (test code = 761) HEMOGLOBIN (BEAKER) (test code = 9.5 GM/DL 13.7-17.5 L 410) HEMATOCRIT (BEAKER) (test code = 31.0 % 40.1-51.0 L 411) MEAN CORPUSCULAR VOLUME (BEAKER) 89.9 fL 79.0-92.2 (test code = 753) MEAN CORPUSCULAR HEMOGLOBIN 27.5 pg 25.7-32.2 (BEAKER) (test code = 751) MEAN CORPUSCULAR HEMOGLOBIN CONC 30.6 GM/DL 32.3-36.5 L (BEAKER) (test code = 752) RED CELL DISTRIBUTION WIDTH 15.8 % 11.6-14.4 H (BEAKER) (test code = 412) PLATELET COUNT (BEAKER) (test 190 K/CU MM 150-450 code = 756) MEAN PLATELET VOLUME (BEAKER) 9.8 fL 9.4-12.4 (test code = 754) NUCLEATED RED BLOOD CELLS 0 /100 WBC 0-0 (BEAKER) (test code = 413) NEUTROPHILS RELATIVE PERCENT 80 % (BEAKER) (test code = 429) LYMPHOCYTES RELATIVE PERCENT 4 % (BEAKER) (test code = 430) MONOCYTES RELATIVE PERCENT 13 % (BEAKER) (test code = 431) EOSINOPHILS RELATIVE PERCENT 3 % (BEAKER) (test code = 432) BASOPHILS RELATIVE PERCENT 0 % (BEAKER) (test code = 437) NEUTROPHILS ABSOLUTE COUNT 5.44 K/ L 1.78-5.38 H (BEAKER) (test code = 670) LYMPHOCYTES ABSOLUTE COUNT 0.24 K/ L 1.32-3.57 L (BEAKER) (test code = 414) MONOCYTES ABSOLUTE COUNT (BEAKER) 0.85 K/ L 0.30-0.82 H (test code = 415) EOSINOPHILS ABSOLUTE COUNT 0.21 K/ L 0.04-0.54 (BEAKER) (test code = 416) BASOPHILS ABSOLUTE COUNT (BEAKER) 0.02 K/ L 0.01-0.08 (test code = 417) IMMATURE GRANULOCYTES-RELATIVE 1 % 0-1 PERCENT (BEAKER) (test code = 2801) POCT-GLUCOSE [id number] 21:47:00 Test Item Value Reference Range Interpretation Comments POC-GLUCOSE METER 138 mg/dL 70-110 H : TESTED A T [facility] 6720 (BEAKER) (test code = [facility], 1538) [address]: Meter Changes Records Clerk/Techni elsie ID = [id number] for La cy (pca2), Victori a PTH, [id number] 19:07:00 Test Item Value Reference Range Interpretation Comments PARATHYROID HORMONE INTACT 396.3 pg/mL 8.5-72.5 H (BEAKER) (test code = 577) Meter Changes Records Clerk ID - BSPOCT-GLUCOSE [id number] 17:30:00 Test Item Value Reference Range Interpretation Comments POC-GLUCOSE METER 71 mg/dL 70-110 : TESTED A T [facility] 6720 (BEAKER) (test code = [facility], 1538) [address]: Meter Changes Records Clerk/Techni elsie ID = [id number] for Rosario ano, Edwin [id number] 17:28:00 Test Item Value Reference Range Interpretation Comments FERRITIN (BEAKER) (test code = 1901.90 ng/mL 5.00-275.00 H 361) Meter Changes Records Clerk ID - BSPOCT-GLUCOSE [id number] 17:18:00 Test Item Value Reference Range Interpretation Comments POC-GLUCOSE METER 63 mg/dL 70-110 L : TESTED A T [facility] 6720 (BEAKER) (test code = [facility], 1538) [address]: Meter Changes Records Clerk/Techni elsie ID = [id number] for Rosario ano, Edwin IRON, TIBC, % SAT. (WITHOUT FERRITIN)2021-05-26 17:00:00 Test Item Value Reference Range Interpretation Comments IRON (BEAKER) (test code = 547) 44.0 ug/dL 40.0-160.0 TOTAL IRON BINDING CAPACITY 136 ug/dL 250-450 L (BEAKER) (test code = 769) IRON % SATURATION (2) (BEAKER) 32 % 20-55 (test code = 2590) Meter Changes Records Clerk ID - BSHEPATITIS B SURFACE [id number] 14:17:00 Test Item Value Reference Range Interpretation Comments HEPATITIS B SURFACE ANTIGEN (2) Nonreactive Nonreactive (BEAKER) (test code = 2585) Specimen is considered negative for HBsAg.BODY FLUID CELL COUNT WITH [id number] 13:17:00 Test Item Value Reference Range Interpretation Comments APPEARANCE FLUID Hazy Clear A (BEAKER) (test code = 510) COLOR FLUID (BEAKER) Yellow Colorless, Straw A (test code = 511) RBC FLUID (BEAKER) 100 /cu mm See_Comment H [Automat ed message] (test code = 513) The system which generated this result transmit nova reference range : <=1. The refere nce range was not u sed to interpret th is result as normal/abnormal . ADJUSTED WBC FLUID 342 /cu mm See_Comment H [Automat ed message] (BEAKER) (test code = The sy stem which 1695) generated this result transmit nova reference range : <=5. The refere nce range was not u sed to interpret th is result as normal/abnormal . LINING CELLS (BEAKER) 0 /cu mm See_Comment [Auto mated message] (test code = 1590) The syste m which generated this result transmit nova reference range : <=1. The refere nce range was not u sed to interpret th is result as normal/abnormal . NEUTROPHILS FLUID 3 % (BEAKER) (test code = 1656) LYMPHS FLUID (BEAKER) 40 % (test code = 488) MONO/MACROPHAGE FLUID 54 % (BEAKER) (test code = 489) EOSINOPHILS FLUID 0 % (BEAKER) (test code = 491) BASO FLUID (BEAKER) 3 % (test code = 492) CONTAINER BODY FLUID Sterile Cup (BEAKER) (test code = 2873) POCT-GLUCOSE [id number] 12:41:00 Test Item Value Reference Range Interpretation Comments POC-GLUCOSE METER 76 mg/dL 70-110 : [facility] (BEAKER) (test code = [place], 1538) [address]: Meter Changes Records Clerk/Techni elsie ID = [id number] for Greg ipp (pca2)Aleksandra POCT-GLUCOSE [id number] 07:29:00 Test Item Value Reference Range Interpretation Comments POC-GLUCOSE METER 90 mg/dL 70-110 : TESTED A T [facility] 6720 (BEAKER) (test code = [place], 1538) [address]: Meter Changes Records Clerk/Techni elsie ID = [id number] for Marisela zhuteAreil [id number] 05:33:00 Test Item Value Reference Range Interpretation Comments MAGNESIUM (BEAKER) (test code = 2.2 mg/dL 1.6-2.6 627) Meter Changes Records Clerk ID - JORDAN [id number] 05:33:00 Test Item Value Reference Range Interpretation Comments PHOSPHORUS (BEAKER) (test code = 6.0 mg/dL 2.3-4.7 H 604) Meter Changes Records Clerk ID - JORDAN MBASIC METABOLIC [id number] 05:33:00 Test Item Value Reference Range Interpretation Comments SODIUM (BEAKER) 138 meq/L 136-145 (test code = 381) POTASSIUM (BEAKER) 4.4 meq/L 3.5-5.1 (test code = 379) CHLORIDE (BEAKER) 96 meq/L 98-107 L (test code = 382) CO2 (BEAKER) (test 25 meq/L 22-29 code = 355) BLOOD UREA NITROGEN 59 mg/dL 7-21 H (BEAKER) (test code = 354) CREATININE (BEAKER) 6.99 mg/dL 0.57-1.25 H (test code = 358) GLUCOSE RANDOM 64 mg/dL 70-105 L (BEAKER) (test code = 652) CALCIUM (BEAKER) 8.4 mg/dL 8.4-10.2 (test code = 697) EGFR (BEAKER) (test 8 mL/min/1.73 ESTIMAT ED GFR IS code = 1092) sq m NOT ACCURATE CREATININE CLEARANCE IN PREDICTING GLOMERULAR FILTRATION RATE . ESTIMATED GFR I S NOT APPLICABLE FOR DIALYSIS PATIEN TS. Meter Changes Records Clerk ID - JORDAN MCBC W/PLT COUNT & AUTO [id number] 05:27:00 Test Item Value Reference Range Interpretation Comments WHITE BLOOD CELL COUNT (BEAKER) 7.8 K/ L 3.5-10.5 (test code = 775) RED BLOOD CELL COUNT (BEAKER) 3.51 M/ L 4.63-6.08 L (test code = 761) HEMOGLOBIN (BEAKER) (test code = 9.5 GM/DL 13.7-17.5 L 410) HEMATOCRIT (BEAKER) (test code = 31.4 % 40.1-51.0 L 411) MEAN CORPUSCULAR VOLUME (BEAKER) 89.5 fL 79.0-92.2 (test code = 753) MEAN CORPUSCULAR HEMOGLOBIN 27.1 pg 25.7-32.2 (BEAKER) (test code = 751) MEAN CORPUSCULAR HEMOGLOBIN CONC 30.3 GM/DL 32.3-36.5 L (BEAKER) (test code = 752) RED CELL DISTRIBUTION WIDTH 15.9 % 11.6-14.4 H (BEAKER) (test code = 412) PLATELET COUNT (BEAKER) (test 239 K/CU MM 150-450 code = 756) MEAN PLATELET VOLUME (BEAKER) 10.2 fL 9.4-12.4 (test code = 754) NUCLEATED RED BLOOD CELLS 0 /100 WBC 0-0 (BEAKER) (test code = 413) NEUTROPHILS RELATIVE PERCENT 82 % (BEAKER) (test code = 429) LYMPHOCYTES RELATIVE PERCENT 5 % (BEAKER) (test code = 430) MONOCYTES RELATIVE PERCENT 10 % (BEAKER) (test code = 431) EOSINOPHILS RELATIVE PERCENT 2 % (BEAKER) (test code = 432) BASOPHILS RELATIVE PERCENT 0 % (BEAKER) (test code = 437) NEUTROPHILS ABSOLUTE COUNT 6.37 K/ L 1.78-5.38 H (BEAKER) (test code = 670) LYMPHOCYTES ABSOLUTE COUNT 0.41 K/ L 1.32-3.57 L (BEAKER) (test code = 414) MONOCYTES ABSOLUTE COUNT (BEAKER) 0.77 K/ L 0.30-0.82 (test code = 415) EOSINOPHILS ABSOLUTE COUNT 0.19 K/ L 0.04-0.54 (BEAKER) (test code = 416) BASOPHILS ABSOLUTE COUNT (BEAKER) 0.02 K/ L 0.01-0.08 (test code = 417) IMMATURE GRANULOCYTES-RELATIVE 1 % 0-1 PERCENT (BEAKER) (test code = 2806) SARS-COV2/RT-PCR ([facility])2021-05-26 03:02:00 Test Item Value Reference Range Interpretation Comments SARS-COV2/RT-PCR Negative Negative The SARS-Co V-2 target (test code = 9593680) nuclei c acids are not detected in thi s specimen. The presence of SARS-CoV-2/FLU/RSV viral nucleic acids cannot rule out co- infections or disease caused by other viral or bacterial pathogens. As with any molecular test, mutations within the target regions of the [facility] SARS-CoV-2/Flu/RSV test could affect primer and/or probe binding resulting in failure to detect the presence of virus or the virus being detected less predictably. False negative results may occur if the virus is present at levels below the analytical limit of detection in this specimen.This [facility] Xpress SARS-CoV-2/Flu/RSV test is a rapid, real-time RT-PCR test intended for the qualitative detection of nucleic acid from [facility] SARS-CoV-2/Flu/RSV in a nasopharyngeal swab specimen collected from individuals suspected of [facility] SARS-CoV-2/Flu/RSV by their healthcare provider. Results from sukhwinder [facility] SARS-CoV-2/Flu/RSV test should be correlated with the clinical history, epidemiological data, and other data available to the clinician evaluating the patient. Viral nucleic acid may persist in vivo, independent of virus viability. Detection of analyte target(s) does not imply that the corresponding virus(es) are infectious or are the causative agents for clinical symptoms.This test has not been Food and Drug Administration (FDA) cleared or approved and has been authorized by FDA under an Emergency Use Authorization (EUA). This EUA will be effective until the declaration that circumstances exist justifying the authorization of the emergency use of in vitro diagnostic tests for detection and/or diagnosis of COVID-19 is terminated under Section 564(b)(2) of the Act or the EUA is revoked under Section 564(g) of the Act.Fact Sheet for Healthcare Providers :https://www.[employer]der/Documents/Xpert%20Xpress%20SARS%20CoV-2/Fact%20Sheets/3 %95UECE-FNG-4%20HEALTHCARE%20PROVIDERS%20FACT%20SHEET.pdfFact Sheet for Healthcare Patients:https://www.BrightTALK.[employer] /Documents/Xpert%20Xpress%20SARS%20Cov-2/Fact%20Sheets/302-3801%13RQNI-YXE-0%20P ATIENT%20FACT%20SHEET.pdfRAD, CHEST, 1 VIEW, NON [id number] 22:32:00DR STRIBLINGReason for exam:->shortness of breathShould this be performed at the bedside?->[facility] 1955 Sex: MFINAL REPORT Chest dated 05/25/2021 COMPARISON: November 20, 2020 Clinical Information: shortness of breath Comment: Heart is enlarged. Pulmonary vasculature is indistinct. Interstitial disease is seen bilaterally suggestive of vascular congestion. There is small to moderate right pleural effusion with the right mid and lower lobe subsegmental atelectasis. Previously noted right subclavian central venous catheter has been removed. Signed: Angy Varner MDReport Verified Date/Time: 05/25/2021 22:32:46 Reading Location: [facility] C013W Consult Reading Room CT, [id number] 21:35:00DR STRIBLINGUnlisted Reason for Exam - Click Yes and Enter Reason Below->NoWill this procedure require oral contrast?->NoEMAN[facility] : 1955 Sex: MFINAL REPORT CT, ABDOMEN \T\ PELVIS, WITHOUT IV CONTRAST INDICATION: Abdominal distension COMPARISON: None TECHNIQUE:Noncontrast abdomen and pelvis CT. Coronal and sagittal reformatted images obtained. DOSE REDUCTION: Dose modulation, iterative reconstruction, and/or weight-based adjustment of the mA/kV was utilized to reduce the radiation dose to as low as reasonably achie vable. FINDINGS: Lower thorax: Moderate to large right and small left pleural effusions with adjacent consolidative airspace opacities favored represent passive atelectasis however superimposed infection should be excluded clinically. Scattered calcified granulomas. The heart is globally enlarged. No p ericardial effusion. Coronary artery calcifications. Liver: Liver is shrunken in appearance with nodular contour consistent with cirrhosis. Lack of intravenous contrast material limits evaluation for suspicious hepatic lesions.Gallbladder and biliary tree: Sludge layering in the gallbladder lumen. Mild gallbladder distention. or wall thickening. No ductal dilatation.Pancreas: No acute findings.Spleen: No acute findingsAdrenal Glands: No acute findings.Kidneys and ureters: Bilateral kidneys are atrophic no hydronephrosis or hydroureter. No nephrolithiasis. No contour deforming renal lesions.Bladder and reproductive organs: Unremarkable. Stomach and Duodenum: No significant findings.Small and large intestine: Moderate stool burden throughout the large bowel. The small and large bowel are normal in caliber. No abnormal bowel wall thickening.Appendix: Not identified. Major vascular structures: Normal aortic caliber.Peritoneum and retroperitoneum: Large volume intra-abdominal ascites. No pneumoperitoneum. No mesenteric soft tissue stranding in the left upper abdomen. No pathologically enlarged intra-abdominal lymph nodes. Skeleton: No acute bony abnormality.Additional findings: Fat-containing inguinal hernias. Total body anasarca. Metallic device within the left flank subcutaneous soft tissues.. IMPRESSION: Moderate to large right and small left pleural effusions with adjacent consolidative airspace opacities favored represent passive atelectasis however superimposed infection should be excluded clinically. The heart is globally enlarged. Reflux changes of cirrhosis with sequela of portal hypertension including large volume intra-abdominal ascites. Moderate stool burden throughout thelarge bowel. Biliary sludge with mild gallbladder distention however no wall thickening or pericholecystic inflammatory changes. If there is concern for acute cholecystitis recommend further evaluation with HIDA scan. Signed: Marya Arredondoeport Verified Date/Time: 05/25/2021 21:35:09 [id number] 19:39:00 Test Item Value Reference Range Interpretation Comments LIPASE (BEAKER) (test code = 749) 19 U/L 8-78 Meter Changes Records Clerk ID - DBCOMPREHENSIVE METABOLIC [id number] 19:39:00 Test Item Value Reference Range Interpretation Comments TOTAL PROTEIN 8.3 gm/dL 6.0-8.3 (BEAKER) (test code = 770) ALBUMIN (BEAKER) 3.6 g/dL 3.5-5.0 (test code = 1145) ALKALINE PHOSPHATASE 130 U/L 40-150 (BEAKER) (test code = 346) BILIRUBIN TOTAL 0.5 mg/dL 0.2-1.2 (BEAKER) (test code = 377) SODIUM (BEAKER) (test 136 meq/L 136-145 code = 381) POTASSIUM (BEAKER) 4.4 meq/L 3.5-5.1 (test code = 379) CHLORIDE (BEAKER) 95 meq/L 98-107 L (test code = 382) CO2 (BEAKER) (test 22 meq/L 22-29 code = 355) BLOOD UREA NITROGEN 53 mg/dL 7-21 H (BEAKER) (test code = 354) CREATININE (BEAKER) 6.70 mg/dL 0.57-1.25 H (test code = 358) GLUCOSE RANDOM 74 mg/dL 70-105 (BEAKER) (test code = 652) CALCIUM (BEAKER) 8.4 mg/dL 8.4-10.2 (test code = 697) AST (SGOT) (BEAKER) 18 U/L 5-34 (test code = 353) ALT (SGPT) (BEAKER) 8 U/L 6-55 (test code = 347) EGFR (BEAKER) (test 8 mL/min/1.73 ESTIMAT ED GFR IS code = 1092) sq m NOT ACCURATE CREATININE CLEARANCE IN PREDICTING GLOMERULAR FILTRATION RATE . ESTIMATED GFR I S NOT APPLICABLE FOR DIALYSIS PATIEN TS. Meter Changes Records Clerk ID - DBOperator ID - DBB-TYPE NATRIURETIC FACTOR (BNP)2021-05-25 19:34:00 Test Item Value Reference Range Interpretation Comments B-TYPE NATRIURETIC PEPTIDE 80512 pg/mL 0-100 H (BEAKER) (test code = 700) Meter Changes Records Clerk ID - dbOperator ID - dbHIGH SENSITIVITY TROPONIN [id number] 19:13:00 Test Item Value Reference Range Interpretation Comments HIGH SENSITIVITY 54 pg/ml See_Comment H [Automated message] TROPONIN I (test code = The system which [id number]) generated this result transmitted ref erence range: <=35. Th e reference range was not used to int erpret this result as normal/abnormal . Meter Changes Records Clerk ID - dbThe LECTURER IN MARKETING STAT High Sensitivity Troponin-I results should be used in conjunctionwith other diagnostic information such as ECG, clinical observations and information, and patient symptoms to aid in the diagnosis of VT.PT/[id number] 19:08:00 Test Item Value Reference Range Interpretation Comments PROTIME (BEAKER) (test 14.4 seconds 11.9-14.2 H code = 759) INR (BEAKER) (test 1.14 See_Comment [Automat ed code = 370) message] The sy stem which generated this result transmitted reference range : <=5.90. The reference range was not used to interpret this result as normal/abnormal . PARTIAL THROMBOPLASTIN 36.6 seconds 22.5-36.0 H TIME (BEAKER) (test code = 760) RECOMMENDED COUMADIN/WARFARIN INR THERAPY RANGESSTANDARD DOSE: 2.0 - 3.0 Includes: PROPHYLAXIS forvenous thrombosis, systemic embolization; TREATMENT for venous thrombosis and/or pulmonary embolus.HIGH RISK: Target INR is 2.5-3.5 for patients with mechanical heart valves.HEPATIC FUNCTION [id number] 19:07:00 Test Item Value Reference Range Interpretation Comments TOTAL PROTEIN (BEAKER) (test code = 8.1 gm/dL 6.0-8.3 770) ALBUMIN (BEAKER) (test code = 1145) 3.7 g/dL 3.5-5.0 BILIRUBIN TOTAL (BEAKER) (test code 0.4 mg/dL 0.2-1.2 = 377) BILIRUBIN DIRECT (BEAKER) (test 0.3 mg/dL 0.1-0.5 code = 706) ALKALINE PHOSPHATASE (BEAKER) (test 132 U/L 40-150 code = 346) AST (SGOT) (BEAKER) (test code = 13 U/L 5-34 353) ALT (SGPT) (BEAKER) (test code = 8 U/L 6-55 347) Meter Changes Records Clerk ID - DBCBC W/PLT COUNT & AUTO [id number] 18:55:00 Test Item Value Reference Range Interpretation Comments WHITE BLOOD CELL COUNT (BEAKER) 11.6 K/ L 3.5-10.5 H (test code = 775) RED BLOOD CELL COUNT (BEAKER) 3.58 M/ L 4.63-6.08 L (test code = 761) HEMOGLOBIN (BEAKER) (test code = 9.9 GM/DL 13.7-17.5 L 410) HEMATOCRIT (BEAKER) (test code = 32.2 % 40.1-51.0 L 411) MEAN CORPUSCULAR VOLUME (BEAKER) 89.9 fL 79.0-92.2 (test code = 753) MEAN CORPUSCULAR HEMOGLOBIN 27.7 pg 25.7-32.2 (BEAKER) (test code = 751) MEAN CORPUSCULAR HEMOGLOBIN CONC 30.7 GM/DL 32.3-36.5 L (BEAKER) (test code = 752) RED CELL DISTRIBUTION WIDTH 15.9 % 11.6-14.4 H (BEAKER) (test code = 412) PLATELET COUNT (BEAKER) (test 249 K/CU MM 150-450 code = 756) MEAN PLATELET VOLUME (BEAKER) 9.7 fL 9.4-12.4 (test code = 754) NUCLEATED RED BLOOD CELLS 0 /100 WBC 0-0 (BEAKER) (test code = 413) NEUTROPHILS RELATIVE PERCENT 87 % (BEAKER) (test code = 429) LYMPHOCYTES RELATIVE PERCENT 2 % (BEAKER) (test code = 430) MONOCYTES RELATIVE PERCENT 8 % (BEAKER) (test code = 431) EOSINOPHILS RELATIVE PERCENT 1 % (BEAKER) (test code = 432) BASOPHILS RELATIVE PERCENT 0 % (BEAKER) (test code = 437) NEUTROPHILS ABSOLUTE COUNT 10.14 K/ L 1.78-5.38 H (BEAKER) (test code = 670) LYMPHOCYTES ABSOLUTE COUNT 0.25 K/ L 1.32-3.57 L (BEAKER) (test code = 414) MONOCYTES ABSOLUTE COUNT (BEAKER) 0.96 K/ L 0.30-0.82 H (test code = 415) EOSINOPHILS ABSOLUTE COUNT 0.12 K/ L 0.04-0.54 (BEAKER) (test code = 416) BASOPHILS ABSOLUTE COUNT (BEAKER) 0.03 K/ L 0.01-0.08 (test code = 417) IMMATURE GRANULOCYTES-RELATIVE 1 % 0-1 PERCENT (BEAKER) (test code = 2801) [id number] 16:39:00 Test Item Value Reference Range Interpretation Comments GLUBED (test code = 104 MG/DL 70-110 N Performe d by certified GLUBED) single stayer operator at [facility] - XR FLUOROSCOPY 0-60 [id number] 15:03:00 [facility] 1955 Sex: M FAX: Espinoza Santillan MD [phone] [place]: [address]: REG Name: TROY FORTE [facility] : 1955 Age/S: 65/M [address] [place] [address] Unit #: [id number] Loc: [place] [address] Phys: Espinoza Villagran MD Acct: [id number] Dis Date: Status: REG [facility] PHONE #: [phone] Exam Date: 12/19/2020 1445 FAX #: [phone] Reason: LUE FISTULA MALFUNCTION EXAMS: CPT CODE: [id number] XR FLUOROSCOPY0-60 MIN 21776 Study: - XR FLUOROSCOPY 0-60 MIN 12/19/2020 2:00 PM Patient Name: TROY FORTE MR: [id number] DATE: 12/19/2020 2:00 PM : 1955; Age: 65 years y/o Male Ordering Physician: Espinoza Villagran MD Clinical Indication: LUE FISTULA MALFUNCTION Intraprocedural fluoroscopy wasprovided by the Department of Radiology. Any images obtained were interpreted by the surgeon intraoperatively. Fluoroscopy time: 18 seconds Reference Air Kerma: 1.3 mGy SL: [id number] at 1503 Reported and signed by: Ar Coffman D.O. CC: Espinoza Villagran MD Technologist: RT Naren(R) Trnscrd Date/Time/By: 12/19/2020 (1506) : By:[email or web address] [facility] Print D/T: S: 12/19/2020 (0312) PAGE 1 Signed ReportBASIC METABOLIC PANEL 2020-12-19 [...] 8.8 mg/dL 8.0-10.5 N CA) CBC W/AUTO [id number] 10:45:00 Test Item Value Reference Range Interpretation [...] NO = MDIFF) - XR CHEST 1 [id number] 10:42:00 [facility] 1955 Sex: M FAX: Espinoza Santillan MD [phone] [place]: EM[address]: REG Name: TROY FORTE [facility] : 1955 Age/S: 65/M [address] [place] [address] Blvd Unit #: [id number] Loc: [place] [address] Phys: Espinoza Villagran MD Acct: [id number] Dis Date: Status: REG [facility] PHONE #: [phone] Exam Date: 12/19/20201030 FAX #: [phone] Reason: PRE PROCEDURE EXAMS: CPT CODE: [id number] XR CHEST 1 V 92058 Study: - XR CHEST 1 V 12/19/2020 9:13 AM Patient Name: TROY FORTE MR: [id number] : 1955; Age: 65 years y/o Male [...] congestion and small bilateral pleural effusions. SL: [id number] at 1042 Reported and signed by: Tr Ly M.D. CC: Espinoza Villagran MD Technologist: RT Navya(Melodie) Trnscrd Date/Time/By: 12/19/2020 (4851) : By: [email or web address] Orig Print D/T: S: 12/19/2020 (5292) PAGE 1 Signed ReportCBC W/AUTO [id number] 10:41:00 Test Item Value Reference Range Interpretation [...] code = MDIFF) COVID 19 Asymptomatic IH [id number] 10:40:00 Test Item Value Reference Range Interpretation [...] y tests. COMMENTS: If not done this admissionANTI-MITOCHONDRIAL AB, REFLEX TO TITER 2020-11-24 07:25:00 Test Item Value Reference Range Interpretation Comments SCAN RESULT (test code = 1814879) ALBUMIN PERITONEAL [id number] 11:32:00 Test Item Value Reference Range Interpretation Comments ALBUMIN, PERITONEAL FLUID (BEAKER) 2.4 g/dL (test code = 9324811) This test was performed at [facility], [facility].Reference range is not defined and interpretation must be performed in the consideration of the pathophysiology of the analyte and the clinical context.POCT-GLUCOSE METER 2020-11-21 11:23:00 Test Item Value Reference Range Interpretation Comments POC-GLUCOSE METER 175 mg/dL 70-110 H : TESTED A T [facility] 6720 (BEAKER) (test code = [facility], 1538) [address]: Meter Changes Records Clerk/Techni elsie ID = [id number] for FAHAD CASTAÑEDA HEPATIC FUNCTION [id number] 10:08:00 Test Item Value Reference Range Interpretation [...] (test code = 7 U/L 6-55 347) Meter Changes Records Clerk ID - EDASIPOCT-GLUCOSE [id number] 08:18:00 Test Item Value Reference Range Interpretation Comments POC-GLUCOSE METER 130 mg/dL 70-110 H : TESTED A T [facility] 6720 (BEAKER) (test code = [facility], 1538) [address]: Meter Changes Records Clerk/Techni elsie ID = [id number] for FAHAD CASTAÑEDA BASIC METABOLIC [id number] 07:17:00 Test Item Value Reference Range Interpretation [...] S NOT APPLICABLE FOR DIALYSIS PATIEN TS. Meter Changes Records Clerk ID - [id number] 07:16:00 Test Item Value Reference Range Interpretation Comments MAGNESIUM (BEAKER) (test code = 2.0 mg/dL 1.6-2.6 627) Meter Changes Records Clerk ID - ADMINCBC (HEMOGRAM ONLY)2020-11-21 06:55:00 Test Item Value Reference [...] = 413) RAD, CHEST, 1 VIEW, NON [id number] 00:39:00Reason for exam:->SICD implantShould this be performed at the bedside?->Yes [facility] 1955 Sex: MFINAL REPORT [...] Signed: Elidia Patel Verified Date/Time: 11/21/2020 00:39:32 E lectronically signed by: ELIDIA PATEL MD on 11/21/2020 12:39 AMPOCT- GLUCOSE [id number] 21:44:00 Test Item Value Reference Range Interpretation Comments POC-GLUCOSE METER 173 mg/dL 70-110 H : TESTED A T [facility] 6720 (BANNER) (test code = [facility], 1538) [address]: Meter Changes Records Clerk/Techni elsie ID = [id number] for WILMAN BIRD RA POCT-GLUCOSE [id number] 18:37:00 Test Item Value Reference Range Interpretation Comments POC-GLUCOSE METER 157 mg/dL 70-110 H : TESTED A T [facility] 6720 (Acesis) (test code = [facility], 1538) [address]32[address]: Meter Changes Records Clerk/Techni elsie ID = [id number] for RICARDO COOK POCT-GLUCOSE [id number] 17:03:00 Test Item Value Reference Range Interpretation Comments POC-GLUCOSE METER 151 mg/dL 70-110 H : TESTED A T [facility] 6720 (BEAKER) (test code = [facility] [place], 1538) [address]: Meter Changes Records Clerk/Techni elsie ID = [id number] for CORI NAVA BLOOD GAS, [id number] 14:46:00 Test Item Value Reference Range Interpretation [...] (test code = 1819) 100.0 SODIUM NA-STAT [id number] 14:46:00 Test Item Value Reference Range Interpretation Comments SODIUM (BEAKER) (test code = 381) 133 meq/L 136-145 L POTASSIUM-STAT [id number] 14:46:00 Test Item Value Reference Range Interpretation Comments POTASSIUM (BEAKER) (test code = 3.3 meq/L 3.6-5.5 L 379) GLUCOSE-STAT [id number] 14:46:00 Test Item Value Reference Range Interpretation Comments GLUCOSE RANDOM (BEAKER) (test code 143 mg/dL 70-110 H = 652) HGB/HCT (H&H) - STAT [id number] 14:46:00 Test Item Value Reference Range Interpretation Comments HEMOGLOBIN (BEAKER) (test code = 7.3 GM/DL 13.0-16.8 L 410) HEMATOCRIT (BEAKER) (test code = 21.0 % 40.0-50.0 L 411) BODY FLUID CULTURE + GRAM [id number] 12:24:00 Test Item Value Reference Range Interpretation Comments CULTURE (BEAKER) (test code No growth = 1095) GRAM STAIN RESULT (BEAKER) 1+ WBCs (test code = 1123) GRAM STAIN RESULT (BEAKER) No organisms seen (test code = 39489) POCT-GLUCOSE [id number] 09:22:00 Test Item Value Reference Range Interpretation Comments POC-GLUCOSE METER 156 mg/dL 70-110 H : Notified RN/MD: (BEAKER) (test code = TESTED AT [facility] 6705 3175) [place], [address]: Meter Changes Records Clerk/Techni elsie ID = [id number] for AN RICARDO DAUGHERTY PROTHROMBIN TIME/[id number] 04:26:00 Test Item Value Reference Range Interpretation [...] valves.Within 24 hours, if on CoumadinBASIC METABOLIC [id number] 04:13:00 Test Item Value Reference Range Interpretation [...] S NOT APPLICABLE FOR DIALYSIS PATIEN TS. Meter Changes Records Clerk ID - JEVON [id number] 04:03:00 Test Item Value Reference Range Interpretation Comments MAGNESIUM (BEAKER) (test code = 2.0 mg/dL 1.6-2.6 627) Meter Changes Records Clerk ID - JEVON LCBC (HEMOGRAM ONLY)2020-11-20 03:55:00 [...] 0-0 (BEAKER) (test code = 413) POCT-GLUCOSE [id number] 21:13:00 Test Item Value Reference Range Interpretation Comments POC-GLUCOSE METER 222 mg/dL 70-110 H : TESTED A T [facility] 6720 (BEAKER) (test code = [facility] [place], 1538) [address]: Meter Changes Records Clerk/Techni elsie ID = [id number] for WIMLAN BIRD RA POCT-GLUCOSE [id number] 17:48:00 Test Item Value Reference Range Interpretation Comments POC-GLUCOSE METER 205 mg/dL 70-110 H : Notified RN/MD: (CONRAD) (test code = TESTED AT [place] [address]) [facility], [address]: Meter Changes Records Clerk/Techni elsie ID = [id number] for AN RICARDO DAUGHERTY POCT-GLUCOSE [id number] 12:22:00 Test Item Value Reference Range Interpretation Comments POC-GLUCOSE METER 196 mg/dL 70-110 H : Notified RN/MD: (CONRAD) (test code = TESTED AT [place] [address]) [facility], [address]: Meter Changes Records Clerk/Techni elsie ID = [id number] for AN RICARDO DAUGHERTY POCT-GLUCOSE [id number] 08:52:00 Test Item Value Reference Range Interpretation Comments POC-GLUCOSE METER 166 mg/dL 70-110 H : TESTED A T [facility] 67[address] (BANNER) (test code = [facility], 153) [address]: Meter Changes Records Clerk/Techni elsie ID = [id number] for Ra cano Junie POCT-GLUCOSE [id number] 08:52:00 Test Item Value Reference Range Interpretation Comments POC-GLUCOSE METER 176 mg/dL 70-110 H : TESTED A T [facility] 67[address] (BANNER) (test code = [facility], 153) [address]: Meter Changes Records Clerk/Techni elsie ID = [id number] for Ra cano, Junie POCT-GLUCOSE [id number] 08:39:00 Test Item Value Reference Range Interpretation Comments POC-GLUCOSE METER 144 mg/dL 70-110 H : Notified RN/MD: (CONRAD) (test code = TESTED AT [place] [address]) [facility], [address]: Meter Changes Records Clerk/Techni elsie ID = [id number] for AN RICARDO DAUGHERTY BASIC METABOLIC [id number] 07:50:00 Test Item Value Reference Range Interpretation [...] S NOT APPLICABLE FOR DIALYSIS PATIEN TS. Meter Changes Records Clerk ID - [id number] 07:46:00 Test Item Value Reference Range Interpretation Comments MAGNESIUM (BEAKER) (test code = 2.0 mg/dL 1.6-2.6 627) Meter Changes Records Clerk ID - BENYHEPATIC FUNCTION [id number] 07:46:00 Test Item Value Reference Range Interpretation [...] (test code = 9 U/L 6-55 347) Meter Changes Records Clerk ID - BENYB-TYPE NATRIURETIC FACTOR (BNP)2020-11-19 07:44:00 Test Item Value Reference Range Interpretation Comments B-TYPE NATRIURETIC PEPTIDE 4442 pg/mL 0-100 H (BEAKER) (test code = 700) Meter Changes Records Clerk ID - BENYCBC (HEMOGRAM ONLY)2020-11-19 07:14:00 Test [...] 0-0 (BEAKER) (test code = 413) POCT-GLUCOSE [id number] 23:22:00 Test Item Value Reference Range Interpretation Comments POC-GLUCOSE METER 132 mg/dL 70-110 H : TESTED A T [facility] 6720 (BEAKER) (test code = [facility], 1538) [address]: Meter Changes Records Clerk/Techni elsie ID = [id number] for NO OR ABISAI BROWN SHA POCT-GLUCOSE [id number] 17:45:00 Test Item Value Reference Range Interpretation Comments POC-GLUCOSE METER 259 mg/dL 70-110 H : TESTED A T [facility] 6720 (BEAKER) (test code = [facility], 1538) [address]: Meter Changes Records Clerk/Techni elsie ID = [id number] for Junie Gutiérrez T4, [id number] 09:08:00 Test Item Value Reference Range Interpretation Comments FREE T4 (BEAKER) (test code = 655) 0.62 ng/dL 0.70-1.48 L Meter Changes Records Clerk ID - JORDAN MTSH/FREE T4 IF [id number] 08:03:00 Test Item Value Reference Range Interpretation Comments THYROID STIMULATING HORMONE 7.177 uIU/mL 0.350-4.940 H (BEAKER) (test code = 772) Meter Changes Records Clerk ID Disha ORTEGA MBASIC METABOLIC [id number] 07:42:00 Test Item Value Reference Range Interpretation [...] S NOT APPLICABLE FOR DIALYSIS PATIEN TS. Meter Changes Records Clerk ID Disha ORTEGA [id number] 07:41:00 Test Item Value Reference Range Interpretation Comments MAGNESIUM (BEAKER) (test code = 1.9 mg/dL 1.6-2.6 627) Meter Changes Records Clerk ID - JORDAN MHEPATIC FUNCTION [id number] 07:41:00 Test Item Value Reference Range Interpretation [...] (test code = 11 U/L 6-55 347) Meter Changes Records Clerk ID - JORDAN MCBC (HEMOGRAM ONLY)2020-11-18 06:18:00 [...] 0-0 (BEAKER) (test code = 413) POCT-GLUCOSE [id number] 00:01:00 Test Item Value Reference Range Interpretation Comments POC-GLUCOSE METER 164 mg/dL 70-110 H : TESTED A T [facility] 6720 (BEAKER) (test code = [facility], 1538) [address]: Meter Changes Records Clerk/Techni elsie ID = [id number] for LAURA OR ABISAI BROWN POCT-GLUCOSE [id number] 17:28:00 Test Item Value Reference Range Interpretation Comments POC-GLUCOSE METER 247 mg/dL 70-110 H : TESTED A T [facility] 6720 (BEAKER) (test code = [facility], 1538) [address]: Meter Changes Records Clerk/Techni elsie ID = [id number] for EDE GASPAR [id number] 15:35:00Medical Cytology Report Case: [id number] Authorizing Provider: Arben Cantor MD Collected: 11/16/2020 11:50 AM Ordering Location: [address] Received: 11/17/2020 09:32 AM Service Pathologist: Silvestre Le MD Specimen: Perit cabezas Fluid PERITONEAL FLUID (CYTOPSPINS): - NEGATIVE FOR MALIGNANCY Signing Pathologist Direct Phone Line: [phone] signed by Silvestre Le MD on 11/17/2020 at 3:35 [id number], CHFPERITONEAL [id number] mls madina fluid; 4 cytospinsPerformed. [facility], Department of [facility]ology, [address] [place] [address], [facility], Department of Pathology, [address] [place] [address], [facility]wsF[facility], Department of Pathology, [address] [place] [address], LFXF-NUCLEAR ANTIBODY (SANTANA)2020-11-17 15:14:00 Test Item Value Reference Range Interpretation Comments ANTI-NUCLEAR ANTIBODY (SANTANA) (BEAKER) Negative Negative (test code = 418) Test performed by IFA method.Test performed by IFA method.PROTEIN, TOTAL, PERITONEAL [id number] 15:08:00 Test Item Value Reference Range Interpretation Comments PROTEIN, TOTAL, PERITONEAL FLUID 5.2 g/dL (BEAKER) (test code = 7783471) POCT-GLUCOSE [id number] 12:05:00 Test Item Value Reference Range Interpretation Comments POC-GLUCOSE METER 187 mg/dL 70-110 H : TESTED A T [facility] 6720 (BEAKER) (test code = [facility], 1538) [address]: Meter Changes Records Clerk/Techni elsie ID = [id number] for EDE GASPAR POCT-GLUCOSE [id number] 08:00:00 Test Item Value Reference Range Interpretation Comments POC-GLUCOSE METER 202 mg/dL 70-110 H : TESTED A T [facility] 6720 (BEAKER) (test code = [place], 1538) [address]: Meter Changes Records Clerk/Techni elsie ID = [id number] for EDE GASPAR BASIC METABOLIC [id number] 06:49:00 Test Item Value Reference Range Interpretation [...] S NOT APPLICABLE FOR DIALYSIS PATIEN TS. Meter Changes Records Clerk ID - [id number] 06:46:00 Test Item Value Reference Range Interpretation Comments MAGNESIUM (BEAKER) (test code = 1.9 mg/dL 1.6-2.6 627) Meter Changes Records Clerk ID - [id number] 06:46:00 Test Item Value Reference Range Interpretation Comments PHOSPHORUS (BEAKER) (test code = 6.9 mg/dL 2.3-4.7 H 604) Meter Changes Records Clerk ID - EDASIHEPATIC FUNCTION [id number] 06:46:00 Test Item Value Reference Range Interpretation [...] (test code = 10 U/L 6-55 347) Meter Changes Records Clerk ID - EDASIPTH, [id number] 06:40:00 Test Item Value Reference Range Interpretation Comments PARATHYROID HORMONE INTACT 540.2 pg/mL 8.5-72.5 H (BEAKER) (test code = 577) Meter Changes Records Clerk ID - DBCBC W/PLT COUNT & AUTO [id number] 06:23:00 Test Item Value Reference Range Interpretation [...] PERCENT (BEAKER) (test code = 2801) POCT-GLUCOSE [id number] 22:19:00 Test Item Value Reference Range Interpretation Comments POC-GLUCOSE METER 233 mg/dL 70-110 H : TESTED A T [facility] 6720 (BEAKER) (test code = [facility], 1538) [address]: Meter Changes Records Clerk/Techni elsie ID = [id number] for Emmanuel Moreno POCT-GLUCOSE [id number] 17:34:00 Test Item Value Reference Range Interpretation Comments POC-GLUCOSE METER 179 mg/dL 70-110 H : Notified RN/MD: (BEAKER) (test code = TESTED AT [facility] 6720 1538) [facility], [address]: Meter Changes Records Clerk/Techni elsie ID = [id number] for INES MEEKVIKTORIYA RICARDO [id number] 15:07:00 Test Item Value Reference Range Interpretation Comments FERRITIN (BEAKER) (test code = 3231.34 ng/mL 5.00-275.00 H 361) Meter Changes Records Clerk ID - EDASIOperator ID - EDASIBODY FLUID CELL COUNT WITH DIFFERENTIAL 2020-11-16 14:00:00 Test Item Value Reference Range [...] EDTA Tube (test code = 2873) POCT-GLUCOSE [id number] 13:16:00 Test Item Value Reference Range Interpretation Comments POC-GLUCOSE METER 206 mg/dL 70-110 H : Notified RN/MD: (BEAKER) (test code = TESTED AT [facility] 6779 8500) [facility], [address]: Meter Changes Records Clerk/Techni elsie ID = [id number] for AN WILLOW RICARDO U/S, [id number] 12:46:00Last Plavix 1/7Labs to be ordered:->Body Fluid Culture (w/Gram Stain, C\T\S)Needs total protein, and fluid albumin for SAAG calculationLabs to be ordered:->CytologyLabs to be ordered:->Cell Cou ntLabs to be ordered:->Other (please add comment)Reason for exam:->new onset [facility]ites[facility] : 1955 Sex: MFINAL REPORT PROCEDURE: Ultrasound-guided paracentesis. INDICATION: 65-year-old man with ascites. DESCRIPTION: After obtaining informed written consent, ultrasound scan of theabdomen identified ascites in the right lower quadrant. The overlying skin was prepped and draped inthe usual, sterile fashion and local 2% lidocaine anesthesia was administered. A 5 Burmese catheter was advanced into the peritoneal cavity and 5600 cc of serous fluid was removed. The catheter was removed without immediate complication. Samples were sent for analysis. IMPRESSION:Uncomplicated ultrasound-guided paracentesis with 5600 cc fluid removed. Signed: Charles Floydeport Verified Date/Time: 11/16/2020 12:46:29 Reading Location: [facility] B1 C013Y CT Body Reading Room [id number] 2020-11-16 11:46:00 Test Item Value Reference Range Interpretation Comments ALPHA-1 ANTITRYPSIN (BEAKER) 235.00 mg/dL 90.00-200.00 H (test code = 502) Meter Changes Records Clerk ID - EDASIOperator ID - AAHAMIDSARS-COV2/RT-PCR ([facility]) 2020-11-16 11:16:00 Test Item Value Reference Range Interpretation Comments SARS-COV2/RT-PCR (test Negative Not Detected, Negative, code = 8089736) See external report for linked test SARS-COV-2 PERFORMING LAB [facility] (test code = 0222116) Negative result for this test determines that [...] 564(g) of the Act.Fact Sheet for Healthcare Providers:https://www.[employer]/sites/default/files/product/documents/Fact_Shee d_BD_Zaobcdtin_Mfxe_HIKT-DaR-6.pdfFact Sheet for Healthcare Patients:https://www.[employer]/sites/default/files/product/ documents/Lwpp_Clutl_Ijcxqjqo_Ocvu_OGAF-LdW-7.pdfPerforming Laboratory:[facility], [place] [address]CLXMPITOZ A ANTIBODY, [id number] 11:06:00 Test Item Value Reference Range Interpretation Comments HEPATITIS A IGG ANTIBODY (BEAKER) Reactive Nonreactive A (test code = 2797) Meter Changes Records Clerk ID - AAHAMIDALPHA FETOPROTEIN (AFP), TUMOR [id number] 10:52:00 Test Item Value Reference Range Interpretation Comments ALPHA-FETOPROTEIN (BEAKER) (test code < ng/mL <10.0 = 1094) Meter Changes Records Clerk ID - AAHAMIDHEPATITIS A ANTIBODY, [id number] 09:52:00 Test Item Value Reference Range Interpretation Comments HEPATITIS A IGM ANTIBODY (BEAKER) Nonreactive Nonreactive (test code = 498) Meter Changes Records Clerk ID - AAHAMIDHEPATITIS B CORE ANTIBODY, [id number] 09:52:00 Test Item Value Reference Range Interpretation Comments HEPATITIS B CORE TOTAL ANTIBODY Nonreactive Nonreactive (BEAKER) (test code = 497) Meter Changes Records Clerk ID - AAHAMIDHEPATITIS B SURFACE [id number] 09:52:00 Test Item Value Reference Range Interpretation Comments HEPATITIS B SURFACE ANTIBODY 256.5 mIU/mL <8.0 H (CONRAD) (test code = 647) Meter Changes Records Clerk ID - AAHAMIDPOCT-GLUCOSE [id number] 08:18:00 Test Item Value Reference Range Interpretation Comments POC-GLUCOSE METER 190 mg/dL 70-110 H : Notified RN/MD: (CONRAD) (test code = TESTED AT [facility] 6720 1538) [place], [address]: Meter Changes Records Clerk/Techni elsie ID = [id number] for AN RICARDO DAUGHERTY U/S, ABDOMINAL, [id number] 06:31:00Evaluate spleen size and hepatic vesselsAbdomen limited area? Add comment if clarification is needed.- >LiverReason for exam:->New onset ascites - CT with nodular liver contour - please examine hepatic vasculature to r/o PVT [facility] 1955 Sex: MFINAL REPORT [...] Elidia Patel MDReport Verified Date/Time: 11/16/2020 06:31:37 U/S, DUPLEX, [id number] 06:31:00Reason for exam:->hepatic vasculature pvt [facility] : 1955 Sex: MFINAL [...] portal venous thrombosis.Right pleural effusion. Signed: Elidia aPtel Verified Date/Time: 11/16/2020 06:31:37 POCT-GLUCOSE [id number] 22:44:00 Test Item Value Reference Range Interpretation Comments POC-GLUCOSE METER 191 mg/dL 70-110 H : TESTED A T [facility] 6720 (BEAKER) (test code = [facility], 1538) [address]: Meter Changes Records Clerk/Techni elsie ID = [id number] for YUKI CLEMENT POCT-GLUCOSE [id number] 22:26:00 Test Item Value Reference Range Interpretation Comments POC-GLUCOSE METER 211 mg/dL 70-110 H : TESTED A T [facility] 6720 (BEAKER) (test code = [facility], 1538) [address]: Meter Changes Records Clerk/Techni elsie ID = [id number] for JAMES SPRING POCT-GLUCOSE [id number] 19:18:00 Test Item Value Reference Range Interpretation Comments POC-GLUCOSE METER 122 mg/dL 70-110 H : TESTED A T [facility] 6720 (BEAKER) (test code = [facility], 1538) [address]: Meter Changes Records Clerk/Techni elsie ID = [id number] for OG MARK, SANDHYA POCT-GLUCOSE [id number] 12:37:00 Test Item Value Reference Range Interpretation Comments POC-GLUCOSE METER 173 mg/dL 70-110 H : TESTED A T [facility] 6720 (BEAKER) (test code = [facility], 1538) [address]: Meter Changes Records Clerk/Techni elsie ID = [id number] for RICARDO COOK HEPATITIS B SURFACE [id number] 11:33:00 Test Item Value Reference Range Interpretation Comments HEPATITIS B SURFACE ANTIGEN (2) Nonreactive Nonreactive (AKER) (test code = 2585) Specimen is considered negative for HBsAg.HEPATITIS B SURFACE [id number] 11:33:00 Test Item Value Reference Range Interpretation Comments HEPATITIS B SURFACE ANTIBODY 248.1 mIU/mL <8.0 H (BEAKER) (test code = 647) Meter Changes Records Clerk ID - DBHEPATITIS B CORE ANTIBODY, [id number] 11:33:00 Test Item Value Reference Range Interpretation Comments HEPATITIS B CORE TOTAL ANTIBODY Nonreactive Nonreactive (AKER) (test code = 497) Meter Changes Records Clerk ID - DBHEMOGLOBIN [id number] 11:28:00 Test Item Value Reference Range Interpretation Comments HEMOGLOBIN A1C (AKER) (test code = 6.1 % 4.3-6.1 368) IRON, TIBC, % SAT. (WITHOUT FERRITIN)2020-11-15 11:11:00 Test Item Value Reference Range Interpretation Comments IRON (BEAKER) (test code = 547) 40.0 ug/dL 40.0-160.0 TOTAL IRON BINDING CAPACITY 166 ug/dL 250-450 L (BEAKER) (test code = 769) IRON % SATURATION (2) (BEAKER) 24 % 20-55 (test code = 2590) Meter Changes Records Clerk ID - DBPOCT-GLUCOSE [id number] 08:18:00 Test Item Value Reference Range Interpretation Comments POC-GLUCOSE METER 204 mg/dL 70-110 H : Notified RN/MD: (BEAKER) (test code = TESTED AT [facility] 8916 5034) [facility], [address]: Meter Changes Records Clerk/Techni elsie ID = [id number] for RICARDO COOK BASIC METABOLIC [id number] 07:13:00 Test Item Value Reference Range Interpretation [...] S NOT APPLICABLE FOR DIALYSIS PATIEN TS. Meter Changes Records Clerk ID - [id number] 07:11:00 Test Item Value Reference Range Interpretation Comments MAGNESIUM (BEAKER) (test code = 2.1 mg/dL 1.6-2.6 627) Meter Changes Records Clerk ID - DBHEPATIC FUNCTION [id number] 07:11:00 Test Item Value Reference Range Interpretation [...] (test code = 15 U/L 6-55 347) Meter Changes Records Clerk ID - DBHEPATITIS C [id number] 06:59:00 Test Item Value Reference Range Interpretation Comments HEPATITIS C ANTIBODY (BEAKER) Nonreactive Nonreactive (test code = 367) Meter Changes Records Clerk ID - DBCBC W/PLT COUNT & AUTO [id number] 06:57:00 Test Item Value Reference Range Interpretation [...] PERCENT (BEAKER) (test code = 2801) PROTHROMBIN [id number] 05:55:00 Test Item Value Reference Range Interpretation [...] mechanical heart valves.RAD, CHEST, 1 VIEW, NON [id number] 01:26:00Reason for exam:->Weight loss, new ascites, volume overloadShould this be performed at the bedside?->Yes [facility] : 1955 Sex: MFINAL [...] 70-110 H Performe d by certified GLUBED) single stayer operator at [facility] BASIC METABOLIC [id number] 13:42:00 Test Item Value Reference Range Interpretation [...] 8.2 mg/dL 8.0-10.5 N CA) CBC W/AUTO [id number] 13:28:00 Test Item Value Reference Range Interpretation [...] DIFF REQUIRED (test code NO = MDIFF) [id number] 11:56:00 Test Item Value Reference Range Interpretation Comments GLUBED (test code = 132 MG/DL 70-110 H Performe d by certified GLUBED) single stayer operator at [facility] Novel Coronavirus 2019 [id number] 20:44:00 Test Item Value Reference Range Interpretation Comments Novel Coronavirus 2019 Inhouse (test Negative Negative code = COVNONPUI) - XR CHEST 2 [id number] 10:48:00 FAX: Espinoza Santillan MD [phone] [place]: St: PRE Name: TROY FORTE [facility] : 1955 Age/S: 64/M [address] [place] [address] Unit#: [id number] Loc: [place] [address] Phys: Espinoza Villagran MD Acct: [id number] Dis Date: Status: PRE SDC PHONE #: [phone] Exam Date: 06/18/2020 0958 FAX #: [phone] Reason: PREOP- ESRD EXAMS: CPT CODE: [id number] XR CHEST 2 V 19417 CLINICAL HISTORY: PREOP- ESRD COMPARISON: March 22, [...] Puente M.D. CC: Espinoza Villagran MD Technologist: Daily Bond RT(R) Trnscrd Date/Time/By: 06/18/2020 (2990) : By: MansiYOGanesh Orig Print D/T: S: 06/18/2020 (1931) PAGE 1 Signed ReportBASIC METABOLIC [id number] 09:12:00 Test Item Value Reference Range Interpretation [...] = 8.0 mg/dL 8.0-10.5 N CA) PROTHROMBIN [id number] 09:06:00 Test Item Value Reference Range Interpretation [...] Bileaflet mecha nical valve in aortic position.2. [facility] hanical prosthetic valv es (high risk), 2.5 - 3.5 Presence of Lupus Anticoagu lant or Antiphospholi pid Antibodies, Pre vention of systemic e mbolism - Acute Myocard ial Infarction (t o prevent recurre nt infarct). THROMBOPLASTIN TIME [id number] 09:06:00 Test Item Value Reference Range Interpretation Comments THROMBOPLASTIN TIME PARTIAL (test Seconds 25.0-39.5 code = PTT) PROTHROMBIN [id number] 09:06:00 Test Item Value Reference Range Interpretation [...] Bileaflet mecha nical valve in aortic position.2. [facility] hanical prosthetic valv es (high risk), 2.5 - 3.5 Presence of Lupus Anticoagu lant or Antiphospholi pid Antibodies, Pre vention of systemic e mbolism - Acute Myocard ial Infarction (t o prevent recurre nt infarct). THROMBOPLASTIN TIME [id number] 09:06:00 Test Item Value Reference Range Interpretation Comments THROMBOPLASTIN TIME 37.2 Seconds 25.0-39.5 N Ther apeutic PARTIAL (test code = Range: 50.4 - 88.3 PTT) Seconds Effective 02/20/2019 CBC W/AUTO [id number] 08:58:00 Test Item Value Reference Range Interpretation [...] REQUIRED (test code NO = MDIFF) URINE [id number] 14:16:00 Test Item Value Reference Range Interpretation Comments CULTURE (BANNER) (test ESCHERICHIA COLI A 4 0-49,000 col/mL [...] S Sulfamethoxazole (test code = 47) CULTURE (BANNER) (test A 80-89 ,000 col/mL code = 1095) Ekaterina albican s POCT-GLUCOSE [id number] 17:07:00 Test Item Value Reference Range Interpretation Comments POC-GLUCOSE METER 168 mg/dL 70-110 H TESTED AT [place] [address] (BANNER) (test code = [place] 1538) [address] POCT-GLUCOSE [id number] 13:49:00 Test Item Value Reference Range Interpretation Comments POC-GLUCOSE METER 172 mg/dL 70-110 H TESTED AT [place] [address] (BANNER) (test code = [facility] [facility] 1538) [address] BASIC METABOLIC [id number] 09:18:00 Test Item Value Reference Range Interpretation Comments SODIUM (BANNER) 132 meq/L 136-145 L (test code = 381) POTASSIUM (AKER) 4.6 meq/L 3.5-5.1 (test code = 379) [...] H (BEAKER) (test code = 413) POCT-GLUCOSE [id number] 21:43:00 Test Item Value Reference Range Interpretation Comments POC-GLUCOSE METER 175 mg/dL 70-110 H TESTED AT [facility] 6720 (BEAKER) (test code = [place] 1538) [address] POCT-GLUCOSE [id number] 12:42:00 Test Item Value Reference Range Interpretation Comments POC-GLUCOSE METER 113 mg/dL 70-110 H TESTED AT [facility] 6720 [facility] (test code = [place] 1538) [address] BASIC METABOLIC [id number] 08:22:00 Test Item Value Reference Range Interpretation [...] code = 412) PLATELET COUNT (AKER) (test 306 K/CU MM 150-450 code = 756) MEAN PLATELET VOLUME (AKER) 9.9 fL 9.4-12.4 (test code = 754) NUCLEATED RED BLOOD CELLS 0 /100 WBC 0-0 (AKER) (test code = 413) POCT-GLUCOSE [id number] 21:40:00 Test Item Value Reference Range Interpretation Comments POC-GLUCOSE METER 159 mg/dL 70-110 H TESTED AT [place] [address] (BANNER) (test code = [facility] 1538) [address] POCT-GLUCOSE [id number] 17:24:00 Test Item Value Reference Range Interpretation Comments POC-GLUCOSE METER 203 mg/dL 70-110 H TESTED AT [place] [address] (BANNER) (test code = [facility] [place] [facility] 1538) [address] POCT-GLUCOSE [id number] 13:17:00 Test Item Value Reference Range Interpretation Comments POC-GLUCOSE METER 201 mg/dL 70-110 H TESTED AT [place] [address] (BANNER) (test code = [facility] [place] [facility] 1538) [address] POCT-GLUCOSE [id number] 08:11:00 Test Item Value Reference Range Interpretation Comments POC-GLUCOSE METER 199 mg/dL 70-110 H TESTED AT [place] [address] (BANNER) (test code = [facility] [place] [facility] 1538) [address] BASIC METABOLIC [id number] 07:40:00 Test Item Value Reference Range Interpretation [...] 0-0 (BEAKER) (test code = 413) POCT-GLUCOSE [id number] 23:55:00 Test Item Value Reference Range Interpretation Comments POC-GLUCOSE METER 198 mg/dL 70-110 H TESTED AT [facility] 6720 (BEAKER) (test code = [facility] [place] [facility] 1538) [address] POCT-GLUCOSE [id number] 22:53:00 Test Item Value Reference Range Interpretation Comments POC-GLUCOSE METER 205 mg/dL 70-110 H TESTED AT [place] [address] (BEAKER) (test code = [place] [facility] 1538) [address] POCT-GLUCOSE [id number] 18:28:00 Test Item Value Reference Range Interpretation Comments POC-GLUCOSE METER 252 mg/dL 70-110 H TESTED AT [place] [address] (BEAKER) (test code = [place] [facility] 1538) [address] POCT-GLUCOSE [id number] 13:01:00 Test Item Value Reference Range Interpretation Comments POC-GLUCOSE METER 118 mg/dL 70-110 H TESTED AT [place] [address] (BEAKER) (test code = [facility] Melodie [facility] 1538) [address] BASIC METABOLIC [id number] 07:03:00 Test Item Value Reference Range Interpretation [...] NOT APPLICABLE FOR DIALYSIS PATIEN TS. POCT-GLUCOSE [id number] 21:53:00 Test Item Value Reference Range Interpretation Comments POC-GLUCOSE METER 189 mg/dL 70-110 H TESTED AT [place] [address] (BEAKER) (test code = [facility] Melodie [facility] 1538) [address] POCT-GLUCOSE [id number] 18:21:00 Test Item Value Reference Range Interpretation Comments POC-GLUCOSE METER 207 mg/dL 70-110 H TESTED AT [place] [address] (BANNER) (test code = [facility] 1538) [address] POCT-GLUCOSE [id number] 12:36:00 Test Item Value Reference Range Interpretation Comments POC-GLUCOSE METER 95 mg/dL 70-110 TESTED AT [place] [address] (BANNER) (test code = [facility] Melodie [facility] [address] 1538) BASIC METABOLIC [id number] 09:00:00 Test Item Value Reference Range Interpretation [...] % 40.1-51.0 L 411) MEAN CORPUSCULAR VOLUME (BANNER) 96.8 fL 79.0-92.2 H (test code = 753) MEAN CORPUSCULAR HEMOGLOBIN 28.1 pg 25.7-32.2 (BANNER) (test code = 751) MEAN CORPUSCULAR HEMOGLOBIN CONC 29.0 GM/DL 32.3-36.5 L (AKER) (test code = 752) RED CELL DISTRIBUTION WIDTH 18.0 % 11.6-14.4 H (BANNER) (test code = 412) PLATELET COUNT (BANNER) (test 355 K/CU MM 150-450 code = 756) MEAN PLATELET VOLUME (BANNER) 9.9 fL 9.4-12.4 (test code = 754) NUCLEATED RED BLOOD CELLS 1 /100 WBC 0-0 H (BANNER) (test code = 413) POCT-GLUCOSE [id number] 21:13:00 Test Item Value Reference Range Interpretation Comments POC-GLUCOSE METER 125 mg/dL 70-110 H TESTED AT [place] [address] (BANNER) (test code = [place] [address]) [address] POCT-GLUCOSE [id number] 13:58:00 Test Item Value Reference Range Interpretation Comments POC-GLUCOSE METER 150 mg/dL 70-110 H TESTED AT [place] [address] (BANNER) (test code = [place] [address]) [address] POCT-GLUCOSE [id number] 09:25:00 Test Item Value Reference Range Interpretation Comments POC-GLUCOSE METER 67 mg/dL 70-110 L Notified Melodie Davila MD/TESTED AT (BANNER) (test code = [place] [address] [place] [address]) [facility] [address] POCT-GLUCOSE [id number] 09:25:00 Test Item Value Reference Range Interpretation Comments POC-GLUCOSE METER 65 mg/dL 70-110 L Notified Melodie Davila MD/TESTED AT (BANNER) (test code = [place] [address]88) [facility] [address] BASIC METABOLIC [id number] 07:54:00 Test Item Value Reference Range Interpretation Comments SODIUM (BANNER) 133 meq/L 136-145 L (test code = 381) POTASSIUM (BANNER) 5.0 meq/L 3.5-5.1 (test code = 379) [...] 0-0 (BEAKER) (test code = 413) POCT-GLUCOSE [id number] 21:31:00 Test Item Value Reference Range Interpretation Comments POC-GLUCOSE METER 119 mg/dL 70-110 H TESTED AT [facility] 67 ([facility] (test code = [facility] 1538) [address] POCT-GLUCOSE [id number] 17:15:00 Test Item Value Reference Range Interpretation Comments POC-GLUCOSE METER 117 mg/dL 70-110 H TESTED AT [place] [address] ([facility] (test code = [facility] 1538) [address] POCT-GLUCOSE [id number] 12:55:00 Test Item Value Reference Range Interpretation Comments POC-GLUCOSE METER 76 mg/dL 70-110 TESTED AT [place] [address] (BANNER) (test code = [facility] [address]38) BASIC METABOLIC [id number] 08:15:00 Test Item Value Reference Range Interpretation [...] NOT APPLICABLE FOR DIALYSIS PATIEN TS. POCT-GLUCOSE [id number] 08:11:00 Test Item Value Reference Range Interpretation Comments POC-GLUCOSE METER 101 mg/dL 70-110 TESTED AT [place] [address] ([facility] (test code = [facility] 1538) [address] CBC (HEMOGRAM ONLY)2019-06-09 06:58:00 Test Item Value [...] 0-0 (BEAKER) (test code = 413) POCT-GLUCOSE [id number] 20:40:00 Test Item Value Reference Range Interpretation Comments POC-GLUCOSE METER 116 mg/dL 70-110 H TESTED AT [place] [address] (BANNER) (test code = [place] 1538) [address] POCT-GLUCOSE [id number] 17:32:00 Test Item Value Reference Range Interpretation Comments POC-GLUCOSE METER 122 mg/dL 70-110 H TESTED AT [place] [address] (BANNER) (test code = [place] 1538) [address] POCT-GLUCOSE [id number] 17:14:00 Test Item Value Reference Range Interpretation Comments POC-GLUCOSE METER 112 mg/dL 70-110 H TESTED AT [place] [address] (BANNER) (test code = [facility] 1538) [address] POCT-GLUCOSE [id number] 16:56:00 Test Item Value Reference Range Interpretation Comments POC-GLUCOSE METER 219 mg/dL 70-110 H TESTED AT [facility] 6720 (BEAKER) (test code = [place] 1538) [address] POCT-GLUCOSE [id number] 09:50:00 Test Item Value Reference Range Interpretation Comments POC-GLUCOSE METER 117 mg/dL 70-110 H TESTED AT [facility] 6720 (BEAKER) (test code = [facility] 1538) [address] BASIC METABOLIC [id number] 07:14:00 Test Item Value Reference Range Interpretation [...] CORPUSCULAR HEMOGLOBIN CONC 29.5 GM/DL 32.3-36.5 L (AKER) (test code = 752) RED CELL DISTRIBUTION WIDTH 17.3 % 11.6-14.4 H (BEAKER) (test code = 412) PLATELET COUNT (BANNER) (test 336 K/CU MM 150-450 code = 756) MEAN PLATELET VOLUME (BEAKER) 10.2 fL 9.4-12.4 (test code = 754) NUCLEATED RED BLOOD CELLS 0 /100 WBC 0-0 (AKER) (test code = 413) POCT-GLUCOSE [id number] 21:59:00 Test Item Value Reference Range Interpretation Comments POC-GLUCOSE METER 78 mg/dL 70-110 TESTED AT [place] [address] (BANNER) (test code = [facility] [address]38) POCT-GLUCOSE [id number] 17:57:00 Test Item Value Reference Range Interpretation Comments POC-GLUCOSE METER 113 mg/dL 70-110 H TESTED AT [place] [address] (BANNER) (test code = [facility] 1538) [address] POCT-GLUCOSE [id number] 14:30:00 Test Item Value Reference Range Interpretation Comments POC-GLUCOSE METER 227 mg/dL 70-110 H TESTED AT [place] [address] (BANNER) (test code = [facility] 1538) [address] BASIC METABOLIC [id number] 08:20:00 Test Item Value Reference Range Interpretation [...] NOT APPLICABLE FOR DIALYSIS PATIEN TS. POCT-GLUCOSE [id number] 08:01:00 Test Item Value Reference Range Interpretation Comments POC-GLUCOSE METER 139 mg/dL 70-110 H TESTED AT [place] [address] ([place]) (test code = [facility] 1538) [id number] CBC (HEMOGRAM ONLY)2019-06-07 07:07:00 Test Item Value [...] 0-0 (BEAKER) (test code = 413) POCT-GLUCOSE [id number] 22:52:00 Test Item Value Reference Range Interpretation Comments POC-GLUCOSE METER 271 mg/dL 70-110 H TESTED AT [place] [address] ([place]) (test code = [facility] 1538) [id number] POCT-GLUCOSE [id number] 17:23:00 Test Item Value Reference Range Interpretation Comments POC-GLUCOSE METER 273 mg/dL 70-110 H TESTED AT [facility] 67[facility] (test code = [place] 1538) [address] POCT-GLUCOSE [id number] 12:33:00 Test Item Value Reference Range Interpretation Comments POC-GLUCOSE METER 107 mg/dL 70-110 TESTED AT [facility] 6720 ([place]) (test code = [facility] 1538) [address] BASIC METABOLIC [id number] 08:59:00 Test Item Value Reference Range Interpretation [...] 0-0 (AKER) (test code = 413) POCT-GLUCOSE [id number] 21:40:00 Test Item Value Reference Range Interpretation Comments POC-GLUCOSE METER 137 mg/dL 70-110 H TESTED AT [place] [address] ([facility]ANNER) (test code = [place] 1538) [address] POCT-GLUCOSE [id number] 18:27:00 Test Item Value Reference Range Interpretation Comments POC-GLUCOSE METER 219 mg/dL 70-110 H TESTED AT [place] [address] ([facility]) (test code = [facility] [place] [facility] 1538) [address] POCT-GLUCOSE [id number] 13:10:00 Test Item Value Reference Range Interpretation Comments POC-GLUCOSE METER 168 mg/dL 70-110 H TESTED AT [place] [address] ([facility]) (test code = [facility] [facility] 1538) 29657 POCT-GLUCOSE [id number] 10:22:00 Test Item Value Reference Range Interpretation Comments POC-GLUCOSE METER 161 mg/dL 70-110 H TESTED AT [place] [address] ([facility]) (test code = [facility] [place] 1538) [address] BASIC METABOLIC [id number] 04:41:00 Test Item Value Reference Range Interpretation [...] S NOT APPLICABLE FOR DIALYSIS PATIEN TS. [id number] 04:40:00 Test Item Value Reference Range Interpretation [...] 0-0 (BEAKER) (test code = 413) POCT-GLUCOSE [id number] 21:42:00 Test Item Value Reference Range Interpretation Comments POC-GLUCOSE METER 176 mg/dL 70-110 H TESTED AT [facility] 67 (BEAKER) (test code = [facility] 1538) [address] POCT-GLUCOSE [id number] 14:38:00 Test Item Value Reference Range Interpretation Comments POC-GLUCOSE METER 179 mg/dL 70-110 H TESTED AT [place] [address] [facility] (test code = [facility] 1538) [address] POCT-GLUCOSE [id number] 09:07:00 Test Item Value Reference Range Interpretation Comments POC-GLUCOSE METER 155 mg/dL 70-110 H TESTED AT [place] [address] ([facility] (test code = [facility] 1538) 67[address] BASIC METABOLIC [id number] 07:49:00 Test Item Value Reference Range Interpretation [...] S NOT APPLICABLE FOR DIALYSIS PATIEN TS. [id number] 07:44:00 Test Item Value Reference Range Interpretation [...] 0-0 (BEAKER) (test code = 413) POCT-GLUCOSE [id number] 22:34:00 Test Item Value Reference Range Interpretation Comments POC-GLUCOSE METER 246 mg/dL 70-110 H TESTED AT [place] [address] ([facility]) (test code = [place] 1538) [address] POCT-GLUCOSE [id number] 18:15:00 Test Item Value Reference Range Interpretation Comments POC-GLUCOSE METER 201 mg/dL 70-110 H TESTED AT [place] [address] ([facility]) (test code = [place] 1538) [address] POCT-GLUCOSE [id number] 13:12:00 Test Item Value Reference Range Interpretation Comments POC-GLUCOSE METER 211 mg/dL 70-110 H TESTED AT [place] [address] ([facility]) (test code = [place] 1538) [address] POCT-GLUCOSE [id number] 08:17:00 Test Item Value Reference Range Interpretation Comments POC-GLUCOSE METER 204 mg/dL 70-110 H TESTED AT [facility] 6720 (BEAKER) (test code = [place] 1538) [address] BASIC METABOLIC [id number] 08:05:00 Test Item Value Reference Range Interpretation [...] S NOT APPLICABLE FOR DIALYSIS PATIEN TS. [id number] 08:04:00 Test Item Value Reference Range Interpretation [...] CORPUSCULAR HEMOGLOBIN CONC 29.6 GM/DL 32.3-36.5 L ([facility]) (test code = 752) RED CELL DISTRIBUTION WIDTH 16.8 % 11.6-14.4 H ([facility]NER) (test code = 412) PLATELET COUNT ([facility]) (test 298 K/CU MM 150-450 code = 756) MEAN PLATELET VOLUME ([facility]NER) 9.9 fL 9.4-12.4 (test code = 754) NUCLEATED RED BLOOD CELLS 0 /100 WBC 0-0 ([facility]) (test code = 413) POCT-GLUCOSE [id number] 22:17:00 Test Item Value Reference Range Interpretation Comments POC-GLUCOSE METER 154 mg/dL 70-110 H TESTED AT [place] [address] ([facility]) (test code = [place] 1538) [address] POCT-GLUCOSE [id number] 22:14:00 Test Item Value Reference Range Interpretation Comments POC-GLUCOSE METER 172 mg/dL 70-110 H TESTED AT [place] [address] ([facility]) (test code = [place] 1538) [address] POCT-GLUCOSE [id number] 17:34:00 Test Item Value Reference Range Interpretation Comments POC-GLUCOSE METER 187 mg/dL 70-110 H TESTED AT [place] [address] ([facility]) (test code = [place] 1538) [address] POCT-GLUCOSE [id number] 12:28:00 Test Item Value Reference Range Interpretation Comments POC-GLUCOSE METER 192 mg/dL 70-110 H TESTED AT [place] [address] ([facility]) (test code = [place] 1538) [address] POCT-GLUCOSE [id number] 07:43:00 Test Item Value Reference Range Interpretation Comments POC-GLUCOSE METER 132 mg/dL 70-110 H TESTED AT [place] [address] ([facility]) (test code = [place] 1538) 07186 POCT-GLUCOSE [id number] 21:47:00 Test Item Value Reference Range Interpretation Comments POC-GLUCOSE METER 255 mg/dL 70-110 H TESTED AT [place] [address] ([facility]) (test code = [place] 1538) [address] POCT-GLUCOSE [id number] 11:45:00 Test Item Value Reference Range Interpretation Comments POC-GLUCOSE METER 159 mg/dL 70-110 H TESTED AT [facility] 6720 ([facility] (test code = [facility] 1538) [address] [id number] 11:17:00 Test Item Value Reference Range Interpretation [...] 20-55 L (test code = 2590) POCT-GLUCOSE [id number] 08:44:00 Test Item Value Reference Range Interpretation Comments POC-GLUCOSE METER 170 mg/dL 70-110 H TESTED AT [facility] 6720 ([facility] (test code = [facility] 1538) [address] BASIC METABOLIC [id number] 04:42:00 Test Item Value Reference Range Interpretation [...] GFR I S NOT APPLICABLE FOR DIALYSIS PATIBRENDA TS. [id number] 03:47:00 Test Item Value Reference Range Interpretation Comments MAGNESIUM (BEAKER) (test code = 2.1 mg/dL 1.6-2.6 627) CBC W/PLT COUNT & AUTO [id number] 03:36:00 Test Item Value Reference Range Interpretation [...] EOSINOPHILS ABSOLUTE COUNT 0.05 K/ L 0.04-0.54 ([facility]) (test code = 416) BASOPHILS ABSOLUTE COUNT ([facility]) 0.01 K/ L 0.01-0.08 (test code = 417) IMMATURE GRANULOCYTES-RELATIVE 1 % 0-1 PERCENT ([facility]) (test code = 2801) POCT-GLUCOSE [id number] 22:05:00 Test Item Value Reference Range Interpretation Comments POC-GLUCOSE METER 91 mg/dL 70-110 TESTED AT [place] [address] ([facility]) (test code = [facility] [address] 1538) POCT-GLUCOSE [id number] 18:37:00 Test Item Value Reference Range Interpretation Comments POC-GLUCOSE METER 102 mg/dL 70-110 TESTED AT [place] [address] ([facility]) (test code = [facility] 1538) 59649 POCT-GLUCOSE [id number] 12:26:00 Test Item Value Reference Range Interpretation Comments POC-GLUCOSE METER 113 mg/dL 70-110 H TESTED AT [place] [address] ([facility]) (test code = [facility] 1538) 11150 POCT-GLUCOSE [id number] 08:07:00 Test Item Value Reference Range Interpretation Comments POC-GLUCOSE METER 73 mg/dL 70-110 TESTED AT [place] [address] ([facility]) (test code = [facility] [address] 1538) BLOOD [id number] 08:01:00 Test Item Value Reference Range Interpretation Comments CULTURE (BEAKER) (test No growth in 5 days code = 1095) BLOOD [id number] 08:01:00 Test Item Value Reference Range Interpretation Comments CULTURE (BEAKER) (test No growth in 5 days code = 1095) CBC W/PLT COUNT & AUTO [id number] 06:59:00 Test Item Value Reference Range Interpretation Comments WHITE BLOOD CELL COUNT ([facility]) 8.3 K/ L 3.5-10.5 (test code = 775) RED BLOOD CELL COUNT ([facility]) 2.60 M/ L 4.63-6.08 L (test code [...] (BEAKER) (test code = 2801) BASIC METABOLIC [id number] 06:27:00 Test Item Value Reference Range Interpretation [...] S NOT APPLICABLE FOR DIALYSIS PATIEN TS. [id number] 06:18:00 Test Item Value Reference Range Interpretation Comments MAGNESIUM (BEAKER) 1.6 mg/dL 1.6-2.6 Specimen slightly (test code = 627) hemolyzed URINALYSIS W/ REFLEX URINE [id number] 23:41:00 Test Item Value Reference Range Interpretation [...] 516) SOURCE(BEAKER) (test code = 2795) POCT-GLUCOSE [id number] 21:42:00 Test Item Value Reference Range Interpretation Comments POC-GLUCOSE METER 139 mg/dL 70-110 H TESTED AT [place] [address] ([facility] (test code = [facility] 1538) 7[address] POCT-GLUCOSE [id number] 20:39:00 Test Item Value Reference Range Interpretation Comments POC-GLUCOSE METER 65 mg/dL 70-110 L TESTED AT [place] [address] ([facility]) (test code = [facility] [address] 1538) POCT-GLUCOSE [id number] 17:54:00 Test Item Value Reference Range Interpretation Comments POC-GLUCOSE METER 78 mg/dL 70-110 TESTED AT [place] [address] ([facility]) (test code = [facility] [address] 1538) CBC W/PLT COUNT & AUTO [id number] 10:44:00 Test Item Value Reference Range Interpretation [...] 3438) Received comment: User comments: Slide comments:POCT-GLUCOSE [id number] 07:50:00 Test Item Value Reference Range Interpretation Comments POC-GLUCOSE METER 70 mg/dL 70-110 [place] [address] (BEAKER) (test code = [facility] [address] 1538) BASIC METABOLIC [id number] 06:36:00 Test Item Value Reference Range Interpretation [...] S NOT APPLICABLE FOR DIALYSIS PATIEN TS. [id number] 06:33:00 Test Item Value Reference Range Interpretation Comments MAGNESIUM (BEAKER) (test code = 2.2 mg/dL 1.6-2.6 627) POCT-GLUCOSE [id number] 22:28:00 Test Item Value Reference Range Interpretation Comments POC-GLUCOSE METER 120 mg/dL 70-110 H TESTED AT [place] [address] ([facility] (test code = [facility] Melodie [facility] 1538) 9[address] POCT-GLUCOSE [id number] 19:33:00 Test Item Value Reference Range Interpretation Comments POC-GLUCOSE METER 166 mg/dL 70-110 H TESTED AT [place] [address] ([facility] (test code = [facility] 1538) 16258 POCT-GLUCOSE [id number] 13:30:00 Test Item Value Reference Range Interpretation Comments POC-GLUCOSE METER 168 mg/dL 70-110 H TESTED AT [place] [address] ([facility] (test code = [facility] 1538) 41531 POCT-GLUCOSE [id number] 07:37:00 Test Item Value Reference Range Interpretation Comments POC-GLUCOSE METER 117 mg/dL 70-110 H TESTED AT [facility] 6720 (BEAKER) (test code = [place] 1538) [address] BASIC METABOLIC [id number] 06:57:00 Test Item Value Reference Range Interpretation [...] S NOT APPLICABLE FOR DIALYSIS PATIEN TS. [id number] 06:52:00 Test Item Value Reference Range Interpretation [...] 753) MEAN CORPUSCULAR HEMOGLOBIN 28.1 pg 25.7-32.2 ([facility]) (test code = 751) MEAN CORPUSCULAR HEMOGLOBIN CONC 30.3 GM/DL 32.3-36.5 L ([facility]) (test code = 752) RED CELL DISTRIBUTION WIDTH 17.1 % 11.6-14.4 H ([facility]) (test code = 412) PLATELET COUNT ([facility]) (test 180 K/CU MM 150-450 code = 756) MEAN PLATELET VOLUME ([facility]NER) 10.6 fL 9.4-12.4 (test code = 754) NUCLEATED RED BLOOD CELLS 0 /100 WBC 0-0 ([facility]) (test code = 413) POCT-GLUCOSE [id number] 21:52:00 Test Item Value Reference Range Interpretation Comments POC-GLUCOSE METER 174 mg/dL 70-110 H TESTED AT [place] [address] ([facility]) (test code = [facility] [place] 1538) [address] POCT-GLUCOSE [id number] 17:58:00 Test Item Value Reference Range Interpretation Comments POC-GLUCOSE METER 151 mg/dL 70-110 H TESTED AT [place] [address] ([facility]) [facility] [place] 1538) [address] POCT-GLUCOSE [id number] 12:35:00 Test Item Value Reference Range Interpretation Comments POC-GLUCOSE METER 225 mg/dL 70-110 H TESTED AT [place] [address] ([facility]) (test code = [facility] [place] 1538) [address] HEMOGLOBIN [id number] 08:34:00 Test Item Value Reference Range Interpretation Comments HEMOGLOBIN A1C ([facility]) (test code = 6.3 % 4.3-6.1 H 368) POCT-GLUCOSE [id number] 07:56:00 Test Item Value Reference Range Interpretation Comments POC-GLUCOSE METER 141 mg/dL 70-110 H TESTED AT [place] [address] ([facility]) ([facility] = [facility] [place] 1538) [address] CBC (HEMOGRAM ONLY)2019-05-28 06:12:00 Test Item Value Reference Range Interpretation Comments WHITE BLOOD CELL COUNT ([facility]) 11.7 K/ L 3.5-10.5 H (test code [...] (BEAKER) (test code = 413) BASIC METABOLIC [id number] 06:02:00 Test Item Value Reference Range Interpretation [...] NOT APPLICABLE FOR DIALYSIS PATIEN TS. POCT-GLUCOSE [id number] 22:24:00 Test Item Value Reference Range Interpretation Comments POC-GLUCOSE METER 171 mg/dL 70-110 H TESTED AT [facility] 6720 ([facility]NER) (test code = [facility] [place] 1538) 14[address] HEPATITIS B [id number] 20:01:00 Test Item Value Reference Range Interpretation Comments HEPATITIS B CORE TOTAL ANTIBODY Nonreactive Nonreactive (BEAKER) (test code = 497) HEPATITIS B SURFACE ANTIBODY < mIU/mL <8.0 (BEAKER) (test code = 647) HEPATITIS B SURFACE ANTIGEN (2) Nonreactive Nonreactive (BEAKER) (test code = 2585) POCT-GLUCOSE [id number] 17:37:00 Test Item Value Reference Range Interpretation Comments POC-GLUCOSE METER 158 mg/dL 70-110 H TESTED AT [facility] 6720 ([facility]) (test code = [facility] 1538) 0[address] CBC (HEMOGRAM ONLY)2019-05-27 16:37:00 Test Item Value [...] (BEAKER) (test code = 413) BASIC METABOLIC [id number] 16:28:00 Test Item Value Reference Range Interpretation [...] NOT APPLICABLE FOR DIALYSIS PATIEN TS. POCT-GLUCOSE [id number] 12:29:00 Test Item Value Reference Range Interpretation Comments POC-GLUCOSE METER 155 mg/dL 70-110 H TESTED AT [place] [address] ([facility]) (test code = [facility] 1538) [address] [id number] 09:20:00 Test Item Value Reference Range Interpretation Comments PHOSPHORUS (BEAKER) (test code = 3.4 mg/dL 2.3-4.7 604) [id number] 09:20:00 Test Item Value Reference Range Interpretation Comments MAGNESIUM (BEAKER) (test code = 2.0 mg/dL 1.6-2.6 627) PH, [id number] 08:49:00 Test Item Value Reference Range Interpretation Comments PH ARTERIAL (BEAKER) (test code = 383) 7.35 7.35-7.45 POCT-GLUCOSE [id number] 08:11:00 Test Item Value Reference Range Interpretation Comments POC-GLUCOSE METER 137 mg/dL 70-110 H TESTED AT [facility] 6720 (BEAKER) (test code = [place] 1538) [address] BASIC METABOLIC [id number] 03:25:00 Test Item Value Reference Range Interpretation [...] PATIEN TS. CBC W/PLT COUNT & AUTO [id number] 03:11:00 Test Item Value Reference Range Interpretation [...] H PERCENT (BEAKER) (test code = 2801) [id number] 02:48:00 Test Item Value Reference Range Interpretation Comments MAGNESIUM (BEAKER) 2.2 mg/dL 1.6-2.6 Specimen slightly (test code = 627) hemolyzed [id number] 02:48:00 Test Item Value Reference Range Interpretation Comments PHOSPHORUS (BEAKER) 3.9 mg/dL 2.3-4.7 Specimen slightly (test code = 604) hemolyzed PH, [id number] 02:08:00 Test Item Value Reference Range Interpretation Comments PH ARTERIAL (BEAKER) (test code = 383) 7.41 7.35-7.45 RAD, CHEST, 1 VIEW, NON [id number] 22:15:00Reason for exam:->line placementShould this be performed [...] Signed: Marya Arredondo Verified Date/Time: 05/26/2019 22:15:38 [facility] METABOLIC [id number] 17:25:00 Test Item Value Reference Range Interpretation [...] NOT APPLICABLE FOR DIALYSIS PATIEN TS. POCT-GLUCOSE [id number] 17:09:00 Test Item Value Reference Range Interpretation Comments POC-GLUCOSE METER 233 mg/dL 70-110 H TESTED AT [facility] 6720 (BEAKER) (test code = [facility] 1538) [address] TROPONIN [id number] 12:31:00 Test Item Value Reference Range Interpretation Comments TROPONIN I (CONRAD) (test code = 0.89 ng/mL 0.00-0.03 397) [...] failure, acidosis, acute neurological disease, and persistent tachyarrhythmia.[id number] 12:26:00 Test Item Value Reference Range Interpretation Comments CALCIUM (CONRAD) (test code = 697) 7.7 mg/dL 8.4-10.2 L [id number] 12:24:00 Test Item Value Reference Range Interpretation Comments POTASSIUM (CONRAD) (test code = 4.4 meq/L 3.5-5.1 379) [id number] 12:24:00 Test Item Value Reference Range Interpretation Comments [facility]ESIUM ([facility] (test code = 2.2 mg/dL 1.6-2.6 627) [id number] 12:24:00 Test Item Value Reference Range Interpretation Comments SODIUM (CONRAD) (test code = 381) 128 meq/L 136-145 L POCT-GLUCOSE [id number] 12:15:00 Test Item Value Reference Range Interpretation Comments POC-GLUCOSE METER 281 mg/dL 70-110 H TESTED AT [place] [address] ([facility] (test code = [facility] 1538) [address] PH, [id number] 11:52:00 Test Item Value Reference Range Interpretation Comments PH ARTERIAL ([facility]) (test code = 383) 7.36 7.35-7.45 RAD, CHEST, 1 VIEW, NON [id number] 08:05:00Reason for exam:->central line placementFINAL REPORT CLINICAL [...] Villagran MDReport Verified Date/Time:05/26/2019 08:05:54 Reading Location: [address] Neuro Reading Room TROPONIN [id number] 06:42:00 Test Item Value Reference Range Interpretation [...] acidosis, acute neurological disease, and persistent tachyarrhythmia.TROPONIN [id number] 06:41:00 Test Item Value Reference Range Interpretation [...] acute neurological disease, and persistent tachyarrhythmia.BASIC METABOLIC [id number] 06:23:00 Test Item Value Reference Range Interpretation [...] NOT APPLICABLE FOR DIALYSIS PATIEN TS. PROTHROMBIN [id number] 06:20:00 Test Item Value Reference Range Interpretation [...] INR is2.5-3.5 for patients wiht mechanical heart valves.[id number] 06:17:00 Test Item Value Reference Range Interpretation Comments PHOSPHORUS (BEAKER) (test code = 4.5 mg/dL 2.3-4.7 604) [id number] 06:17:00 Test Item Value Reference Range Interpretation Comments MAGNESIUM (BEAKER) (test code = 2.4 mg/dL 1.6-2.6 627) CBC W/PLT COUNT & AUTO [id number] 06:03:00 Test Item Value Reference Range Interpretation [...] (test code = 2801) TSH/FREE T4 IF [id number] 22:17:00 Test Item Value Reference Range Interpretation Comments THYROID STIMULATING HORMONE 3.33 uIU/mL 0.35-4.94 (BEAKER) (test code = 772) TROPONIN [id number] 21:59:00 Test Item Value Reference Range Interpretation [...] H (BEAKER) (test code = 700) C-REACTIVE [id number] 21:51:00 Test Item Value Reference Range Interpretation Comments C-REACTIVE PROTEIN (BEAKER) (test 13.88 mg/dL 0.00-0.50 H code = 676) COMPREHENSIVE METABOLIC [id number] 21:51:00 Test Item Value Reference Range Interpretation [...] PATIEN TS. CBC W/PLT COUNT & AUTO [id number] 21:20:00 Test Item Value Reference Range Interpretation [...]
--- NOTE | 2021-10-08 16:40 | RAD REPORT ---
EXAM DESCRIPTION: CT - Spine Lumbar Wo Con - 10/08/2021 4:24 pm CLINICAL HISTORY: Radiculopathy. Pain;Radiculopathy COMPARISON: Pelvis Wo Cont dated 07/17/2021; Abdomen Pelvis Wo Contrast dated 11/14/2020 TECHNIQUE: Axial noncontrast CT imaging of the lumbar spine was performed with coronal and sagittal re-formatted images. All CT scans are performed using dose optimization technique as appropriate and may include automated exposure control or mA/KV adjustment according to patient size. FINDINGS: No acute lumbar spine fracture seen. No aggressive marrow pattern or malalignment. Paraspinal tissues are normal in thickness. No paraspinal abscess or hematoma seen. Ascites is partia lly imaged. Atherosclerosis. Intervertebral disc disease assessment is inherently limited by CT. Within these limitations, no high -grade canal stenosis suspected. IMPRESSION: No acute fracture of the lumbar spine. Consider MRI follow-up for assessment of disc disease if clinically desired.
--- NOTE | 2021-10-08 16:41 | RAD REPORT ---
EXAM DESCRIPTION: RAD - Pelvis - 10/08/2021 4:33 pm CLINICAL HISTORY: PAIN COMPARISON: Pelvis Wo Cont dated 07/17/2021 FINDINGS: Right superior pubic ramus fracture. Statistically, there is likely a fracture involving t he pubic symphysis or right inferior pubic ramus. No other fractures are identified. Peripheral vascu lar calcifications. IMPRESSION: Right superior pubic ramus fracture. Statistically, there is likely a pubic symphysis or inferior pubic ramus fracture as well though not confidently visualized.
--- NOTE | 2021-10-08 17:04 | ER ---
Nurse's Notes [facility] Name: Benji Villalpando Age: 66 yrs Sex: Male : 1955 Arrival Date: 10/08/2021 Time: 14:05 Bed 27 Private MD: Jack Corley Diagnosis: Right Superior Pubic Ramus Fracture Presentation: 10/08 15:07 Chief complaint: Patient states: Fell 2 months ago and reports continued right hip jl7 pain, Dr. Corley sent us to have it looked at. Coronavirus screen: At this time, the client does not indicate any symptoms associated with coronavirus-19. Ebola Screen: No symptoms or risks identified at this time. Initial Sepsis Screen: Does the patient meet any 2 criteria? No. Patient's initial sepsis screen is negative. Does the patient have a suspected source of infection? No. Patient's initial sepsis screen is negative. Risk Assessment: Do you want to hurt yourself or someone else? Patient reports no desire to harm self or others. Onset of symptoms was August 2021. 15:07 Method Of Arrival: Wheelchair jl7 15:07 Acuity: MILADYS 3 jl7 Triage Assessment: 15:09 General: Appears in no apparent distress. uncomfortable, Behavior is calm, cooperative, jl7 appropriate for age. Pain: Complains of pain in right gluteus thao Pain radiates to right hip and leg Pain currently is 0 out of 10 on a pain scale. at worst was 10 out of 10 on a pain scale. Neuro: Level of Consciousness is awake, alert, obeys commands, Oriented to person, place, time, situation. Cardiovascular: Patient's skin is warm and dry. Respiratory: Airway is patent Respiratory effort is even, unlabored, Respiratory pattern is regular, symmetrical. Derm: Skin is pink, warm \T\ dry. Historical: - Allergies: 15:09 No Known Allergies; jl7 - PMHx: 15:09 Anemia; CHF; chronic kidney disease; Diabetes - NIDDM; Hyperlipidemia; Hypertension; jl7 Hypothyroidism; Myocardial infarction; RENAL FAILURE; Dialysis T-T-S; - PSHx: 15:09 fistula; heart bypass; pacemaker; jl7 - Immunization history:: Client reports receiving the 2nd dose of the Covid vaccine. - Social history:: Smoking status: Patient denies any tobacco usage or history of. Screenin:40 Abuse screen: Denies threats or abuse. Nutritional screening: No deficits noted. tw2 Tuberculosis screening: No symptoms or risk factors identified. Fall Risk None identified. Assessment: 15:39 General: Appears in no apparent distress. well groomed, Behavior is calm, cooperative, tw2 appropriate for age. Pain: Complains of pain in right buttocks Pain radiates to right hamstring, posterior aspect of right knee and right calf. Neuro: Level of Consciousness is awake, alert, obeys commands, Oriented to person, place, time, situation. Cardiovascular: Capillary refill < 3 seconds. Respiratory: Airway is patent. GI: No signs and/or symptoms were reported involving the gastrointestinal system. Musculoskeletal: Range of motion: intact in all extremities. 16:45 Reassessment: Patient appears in no apparent distress at this time. No changes from tw2 previously documented assessment. Patient and/or family updated on plan of care and expected duration. Pain level reassessed. Patient is alert, oriented x 3, equal unlabored respirations, skin warm/dry/pink. 17:20 Reassessment: Patient appears in no apparent distress at this time. No changes from tw2 previously documented assessment. Patient and/or family updated on plan of care and expected duration. Pain level reassessed. Patient is alert, oriented x 3, equal unlabored respirations, skin warm/dry/pink. Vital Signs: 15:07 BP 97 / 59; Pulse 71; Resp 17; Temp 97.2; Pulse Ox 98% ; Weight 79.38 kg; Height 5 ft. jl7 4 in. (162.56 cm); Pain 0/10; 15:41 BP 106 / 58; Pulse 73; Resp 17; Pulse Ox 98% on R/A; tw2 16:45 BP 102 / 63; Pulse 76; Resp 17; Pulse Ox 100% on R/A; tw2 15:07 Body Mass Index 30.04 (79.38 kg, 162.56 cm) jl7 ED Course: 14:05 Patient arrived in ED. am2 14:05 Jack Corley DO is Private Physician. am2 15:09 Triage completed. jl7 15:09 Arm band placed on right wrist. Patient placed in waiting room, Patient notified of jl7 wait time. 15:33 Call light in reach. Adult w/ patient. Pulse ox on. NIBP on. tw2 15:38 Lian Trejo, RN is Primary Nurse. tw2 15:39 Son Parrish PA is PHCP. jr8 15:39 Rigo Millan MD is Attending Physician. jr8 16:23 CT Lumbar Spine Wo Con In Process Unspecified. EDMS 16:33 XRAY Pelvis In Process Unspecified. EDMS 17:03 Kamron Connor MD is Referral Physician. jr8 17:20 No provider procedures requiring assistance completed. Patient did not have IV access tw2 during this emergency room visit. Administered Medications: No medications were administered Outcome: 17:03 Discharge ordered by . jr8 17:20 Discharged to home via wheelchair, with significant other. tw2 17:20 Condition: stable 17:20 Discharge instructions given to patient, significant other, Instructed on discharge instructions, follow up and referral plans. no drinking with medication, no driving heavy equipment, medication usage, safety practices, Demonstrated understanding of instructions, follow-up care, medications, Prescriptions given X 1. 17:20 Patient left the ED. tw2 Signatures: Dispatcher [employer] EDIL Son Parrish PA PA jr8 Lian Trejo, RN RN tw2 Brenda Wright RN RN jl7 Leola Forrester am2
--- NOTE | 2021-10-08 17:04 | EDPHYS ---
Physician Documentation [facility] Name: Benji Villalpando Age: 66 yrs Sex: Male : 1955 Arrival Date: 10/08/2021 Time: 14:05 Bed 27 Private MD: Barney [facility] ED Physician Rigo Millan HPI: 10/08 16:59 This 66 yrs old Male presents to ER via Wheelchair with complaints of Hip Pain jr8 - right buttock. 16:59 This is a 66-year-old male patient that presented to the emergency room status post jr8 fall 1 month ago that had been complaining of pain on and off from the fall but had increasingly become worse over the past week. Patient stated that now he is having radiated pain down his right leg. Denies any more recent fall or reinjury.. Historical: - Allergies: 15:09 No Known Allergies; jl7 - PMHx: 15:09 Anemia; CHF; chronic kidney disease; Diabetes - NIDDM; Hyperlipidemia; Hypertension; jl7 Hypothyroidism; Myocardial infarction; RENAL FAILURE; Dialysis T-T-S; - PSHx: 15:09 fistula; heart bypass; pacemaker; jl7 - Immunization history:: Client reports receiving the 2nd dose of the Covid vaccine. - Social history:: Smoking status: Patient denies any tobacco usage or history of. ROS: 16:59 Eyes: Negative for injury, pain, redness, and discharge, ENT: Negative for injury, jr8 pain, and discharge, Neck: Negative for injury, pain, and swelling, Cardiovascular: Negative for chest pain, palpitations, and edema, Respiratory: Negative for shortness of breath, cough, wheezing, and pleuritic chest pain, Abdomen/GI: Negative for abdominal pain, nausea, vomiting, diarrhea, and constipation, Back: Negative for injury and pain, Skin: Negative for injury, rash, and discoloration, Neuro: Negative for headache, weakness, numbness, tingling, and seizure. 16:59 MS/extremity: Positive for decreased range of motion, pain, tenderness, of the right leg. Exam: 16:59 Constitutional: This is a well developed, well nourished patient who is awake, alert, jr8 and in no acute distress. Cardiovascular: Regular rate and rhythm with a normal S1 and S2. No gallops, murmurs, or rubs. Normal PMI, no JVD. No pulse deficits. Respiratory: Lungs have equal breath sounds bilaterally, clear to auscultation and percussion. No rales, rhonchi or wheezes noted. No increased work of breathing, no retractions or nasal flaring. Abdomen/GI: Soft, non-tender, with normal bowel sounds. No distension or tympany. No guarding or rebound. No evidence of tenderness throughout. Back: No spinal tenderness. No costovertebral tenderness. Full range of motion. Skin: Warm, dry with normal turgor. Normal color with no rashes, no lesions, and no evidence of cellulitis. Neuro: Awake and alert, GCS 15, oriented to person, place, time, and situation. Cranial nerves II-XII grossly intact. Motor strength 5/5 in all extremities. Sensory grossly intact. 16:59 Musculoskeletal/extremity: Extremities: grossly normal except: noted in the right leg: Patient has mild pain to the right inguinal region with pain upon flexion and extension of leg. No obvious deformity noted., Circulation is intact in all extremities. Sensation intact. Vital Signs: 15:07 BP 97 / 59; Pulse 71; Resp 17; Temp 97.2; Pulse Ox 98% ; Weight 79.38 kg; Height 5 ft. jl7 4 in. (162.56 cm); Pain 0/10; 15:41 BP 106 / 58; Pulse 73; Resp 17; Pulse Ox 98% on R/A; tw2 16:45 BP 102 / 63; Pulse 76; Resp 17; Pulse Ox 100% on R/A; tw2 15:07 Body Mass Index 30.04 (79.38 kg, 162.56 cm) jl7 MDM: 15:39 Patient medically screened. 8 16:59 Data reviewed: vital signs, nurses notes, radiologic studies, CT scan, plain films. jr8 Data interpreted: Pulse oximetry: on room air is 100 %. Interpretation: normal. Counseling: I had a detailed discussion with the patient and/or guardian regarding: the historical points, exam findings, and any diagnostic results supporting the discharge/admit diagnosis, radiology results, the need for outpatient follow up, a orthopedic surgeon, to return to the emergency department if symptoms worsen or persist or if there are any questions or concerns that arise at home. 10/08 15:57 Order name: CT Lumbar Spine Wo Con; Complete Time: 17:02 jr8 10/08 15:57 Order name: XRAY Pelvis; Complete Time: 17:02 jr8 Administered Medications: No medications were administered Disposition: 17:34 Co-signature as Attending Physician, iRgo Millan MD I agree with the assessment and kdr plan of care. Disposition Summary: 10/08/21 17:03 Discharge Ordered Location: Home jr8 Problem: new jr8 Symptoms: have improved jr8 Condition: Stable jr8 Diagnosis - Right Superior Pubic Ramus Fracture jr8 Followup: jr8 - With: Kamron Connor MD - When: 5 - 6 days - Reason: Recheck today's complaints, Continuance of care, Re-evaluation by your physician Discharge Instructions: - Discharge Summary Sheet jr8 - Simple Pelvic Fracture, Adult jr8 Forms: - Medication Reconciliation Form jr8 - Thank You Letter jr8 - Antibiotic Education jr8 - Prescription Opioid Use jr8 Prescriptions: - Tramadol 50 mg Oral Tablet - take 1 tablet by ORAL route every 8 hours as needed; 12 tablet; Refills: 0, jr8 Product Selection Permitted Signatures: Dispatcher [employer] EDMS Rigo Millan MD MD kdr Roszak, Josh, PA PA jr8 Brenda Wright RN RN jl7
[2021-10-08 17:30] VITALS: TEMP 97.2
[2021-10-08 17:33] VITALS: BP 102/63; O2SAT 100
== END 2021-10-08 17:20 | disposition home or self-care (01) ==
LOC: ER 14:05
DX: S32.511A Fracture of superior rim of right pubis, initial encounter for closed fracture (principal); E11.22 Type 2 diabetes mellitus with diabetic chronic kidney disease; N18.6 End stage renal disease; Z99.2 Dependence on renal dialysis; Z95.0 Presence of cardiac pacemaker
CPT/HCPCS: 72131; 72170; 99283

== ENCOUNTER 2021-12-01 08:39 | Day surgery (SDC) | payer OTHER ==
[2021-12-01 09:05] LABS: MPV 7.8 fL (7.6-11.3)
[2021-12-01 09:21] LABS: Protime INR 1.21
--- NOTE | 2021-12-01 11:04 | RAD REPORT ---
EXAM DESCRIPTION: US - Paracentesis Proc Guidance - 12/01/2021 10:44 am CLINICAL HISTORY: Ascites COMPARISON: None. TECHNIQUE: The patient presents for ultrasound-guided paracentesis. The procedure, risks and altern atives were discussed with the patient in detail. Oral and written consent were obtained. Time out p rocedure was performed. The patient had no contraindicated allergy or medication history. Patient wa s off aspirin therapy for 5-7 days. Patient is currently on Plavix therapy. Preliminary sonographic evaluation identified right lower quadrant access site. The skin and deeper tissues were anesthetized with 1 percent lidocaine. Under direct sonographic visualization, a parace ntesis catheter was advanced into the peritoneal cavity. Approximately 14 mL of ascites was retained for requested laboratory studies. Large volume drainage was initiated. Approximately 8 liters of asci arnaldo removed. At the conclusion of the procedure, catheter was withdrawn and a bandage placed at the puncture site. Postprocedure care and precaution instructions were given to the patient. The patient was transferr ed to same-day surgery for pending albumin therapy utilizing referring physician protocol. IMPRESSION: Ultrasound-guided paracentesis as detailed.
[2021-12-01] MEDS ORDERED: ALBUMIN HUMAN 25% 200 ML IV ONE (11:12)
[2021-12-01 11:26] VITALS: TEMP 97.8
[2021-12-01 11:43] VITALS: BP 117/64
[2021-12-01 11:56] VITALS: O2SAT 98
[2021-12-01 12:55] LABS: Body Fluid Source PERITONEAL; Color of fluid Yellow (COLORLESS)
[2021-12-01 12:56] LABS: Appearance VERY TURBID (CLEAR); Body Fluid WBC 932 /mm^3
== END 2021-12-01 11:54 | disposition home or self-care (01) ==
LOC: DS 08:39
PROVIDERS: ATTEND Nurse Practitioner
DX: R18.8 Other ascites (principal); K74.60 Unspecified cirrhosis of liver
CPT/HCPCS: 36415; 89050; 85049; 85610; 85730; 96365; 49083; P9047

== ENCOUNTER 2022-01-18 11:15 | Emergency (ER) | payer OTHER ==
--- OUTSIDE RECORDS SUMMARY | 2022-01-18 11:26 | XMS REPORT | Continuity of Care Document ---
:1955 Author Organization [facility] t Address [address] [place] [address] Care Team Providers Name Role Phone ISABELLA COFFMAN NITIN Primary Care Physician Unavailable Hallie Coffman Attending Clinician Unavailable Humberto Villagran Attending Clinician Unavailable NACHO CANTOR Attending Clinician Unavailable Harshad ZAMARRIPA Attending Clinician Unavailable UMAIR ROSSI Attending Clinician Unavailable MARY PERRY Attending Clinician Unavailable Ez KOHLER Attending Clinician Unavailable Melodie BERRY Attending Clinician Unavailable DUKE Attending Clinician Unavailable Jony-Cynthiao_A_AH Attending Clinician Unavailable Graciela HEWITT Attending Clinician Unavailable RODRIGUE Attending Clinician Unavailable MEGHNA Admitting Clinician Unavailable UNDEFINED Admitting Clinician Unavailable NACHO CANTOR Admitting Clinician Unavailable KNOW Admitting Clinician Unavailable SHIN ARAIZA Admitting Clinician Unavailable ISAAC Admitting Clinician Unavailable Jony-Cynthiao_A_AH Admitting Clinician Unavailable Graciela HEWITT Admitting Clinician Unavailable Payers Payer Name Policy Type Policy Number Effective Date Expiration Date [id number] 2019 00:00:00 WELLCARE MAPS [id number] 2019 00:00:00 HUMANA MEDICARE [id number] 2021 ADV 00:00:00 WELLCARE STEFFI [id number] 2020 STAR PLUS 00:00:00 WELLCARE OF [place] - [id number] 2019 TEXANPLUS 00:00:00 (MEDICARE REPLACEMENT/ADVANT AGE - HMO) Problems This patient has no known problems. Allergies, Adverse Reactions, Alerts Allergy Allergy Status Severity Reaction(s) Onset Inactive Treating Comm ents Source Name Type Date Date Clinician No Known DA Active U 2018-0 [facility]ie [facility] Clear s 00:00: Padron 00 [facility] No Known DA Active U 2017-0 [facility] Allergie 5-16 Clear s 00:00: Padron 00 [facility] NO KNOWN Allergy Active [facility] ALLERGIE S NO KNOWN Drug Active Univers ALLERGIE Class ity of S [facility] Medications Ordered Filled Start Stop Current Ordering Indication Dosage Frequency Signature Comments Components Source Medication Medication Date Date Medication? Clinician (SIG) Name Name Aspirin 81 Aspirin 81 Yes Isabella [address] [facility] Clopidogrel Clopidogrel Yes Isabella [address] [facility] Bisulfate Bisulfate [facility] Basaglar Basaglar Yes Isabella inject [address] [facility] KwikPen KwikPen [facility] units [facility] Tradjenta Tradjenta Yes Isabella [address] [facility] Senna Senna Yes Isabella [address] [facility] at bedtime [facility] Lantus Lantus Yes Isabella as [facility] SoloStar SoloStar [facility]man directed [facility] Aspirin Aspirin Yes Isabella TAKE 1 [facility] TABLET BY [facility] EVERY DAY [facility] Atorvastati Atorvastati Yes Isabella TAKE [address] [facility] n Calcium n Calcium Coffman TABLET BY [facility] BEDTIME [facility] Midodrine Midodrine Yes Isabella [address] [facility] HCl HCl [facility] Lorazepam Lorazepam Yes Isabella [address] [facility] as needed [facility] Synthroid Synthroid Yes Isabella [address] [facility] on an [facility] stomach [facility] Atorvastati Atorvastati Yes Isabella [address] [facility] n Calcium n Calcium [facility] Vital Signs Vital Name Observation Time Observation Value Comments Source WEIGHT 2020-11-20 10:19:00 71.9 kg WEIGHT 2020-11-18 10:30:00 73 kg HEIGHT 2021-10-12 09:08:00 162.6 cm WEIGHT 2021-10-12 09:08:00 79.379 kg HEIGHT 2021-10-12 09:08:00 162.6 cm WEIGHT 2021-10-12 09:08:00 79.379 kg WEIGHT 2021-08-04 08:02:00 69.4 kg HEIGHT [...] Date/Time Type Type Clinicians Facility Department ID 2021-12-02 Outpatient LACHELLE Coffman [facility] [id number] 14:22:20 [facility] [address] [facility] 2021-12-02 Outpatient LACHELLE Coffman [facility] [id number] 13:47:46 Isabella 35045 [facility] 2021-12-02 Outpatient Coffman, [facility] [id number] 13:38:19 Isabella 70421 [facility] 2021-12-02 Outpatient Coffman, [facility] [id number] [facility] [address] 13:27:09 Isabella 84750 [facility] 2021-12-02 Outpatient Coffman, [facility] [id number] 12:41:17 Isabella 79563 [facility] 2021-12-02 Outpatient Coffman, [facility] [id number] 12:35:51 Isabella 42151 [facility] 2021-12-02 Outpatient Coffman, [facility] [id number] 12:35:15 Isabella 43061 [facility] 2021-12-02 Outpatient Coffman, [facility] [id number] 12:07:23 Isabella 38433 [facility] 2021-12-02 Outpatient Coffman, [facility] [id number] 11:39:10 Isabella 84111 [facility] 2021-12-02 Outpatient Coffman, [facility] [id number] 11:20:23 Isabella 06160 [facility] 2021-12-02 Outpatient Coffman, [facility] [id number] 11:18:51 Isabella 99268 [facility] 2021-12-02 Outpatient Coffman, [facility] [id number] 11:16:22 Isabella 56424 [facility] 2021-12-02 Outpatient Coffman, [facility] [id number] 11:05:05 Isabella 15725 [facility] 2020-12-19 Inpatient Espinoza Villagran [facility] [id number] [facility] 13:00:00 [id number] [facility] 2020-11-14 Inpatient ER RICHARD CANTOR G[facility] [id number] [facility] 21:46:00 ARBEN 2020-06-20 Inpatient Espinoza Villagran [facility] [id number] [facility] 13:00:00 [id number] [facility] 2020-06-18 Inpatient Espinoza Villagran [facility] [id number] [facility] 08:30:00 [id number] [facility] 2019-05-04 [id number] 17:34:38 2021-12-28 2021-12-[address] [facility] [id number] [facility] 00:00:00 00:00:00 2021-12-22 2021-12-22 ambulatory [facility]C [facility] [id number] [facility] 2021-11-27 2021-11-[address] [facility] [id number] [facility] 00:00:00 00:00:00 2021-10-26 2021-10-26 ambulatory STLMLC [facility] [id number] [facility] 2021-10-14 2021-10-14 ambulatory [facility]LMLC [facility] [id number] [facility] 2021-10-12 2021-10-[address] [facility] [id number] [facility] 00:00:00 23:59:00 HUMERA 2021-10-12 2021-10-12 Emergency ER ROSSI, [facility] Emergency [id number] [facility] 09:11:00 16:00:00 THUYEN 2021-10-08 2021-10-08 ambulatory [facility]LMLC [facility] [id number] [facility] 2021-10-05 2021-10-05 ambulatory [facility]LMLC [facility] [id number] [facility] 2021-09-30 2021-09-30 ambulatory [facility]LMLC [facility] [id number] [facility] 2021-08-11 2021-08-11 Outpatient [facility]MLC [facility] [id number] [facility] 2021-08-03 2021-08-03 Outpatient [facility] [id number] [facility] 00:00:00 23:59:00 [facility] 2021-08-03 2021-08-03 Emergency ER [facility] Emergency [id number] [facility] 11:01:00 11:01:00 2021-07-29 2021-07-29 Outpatient [facility]LMLC [facility] [id number] [facility] 2021-07-23 2021-07-23 Outpatient EL [facility] [id number] [facility] 00:00:00 00:00:00 2021-07-23 2021-07-23 Outpatient [facility]MLC [facility] [id number] [facility] 2021-07-14 2021-07-14 Outpatient [facility]LMLC [facility] [id number] [facility] 2021-07-08 2021-07-08 Outpatient [facility]MLC [facility] [id number] [facility] 2021-07-08 2021-07-08 Outpatient [facility]ML[facility] [id number] [facility] 2021-06-26 2021-06-26 Outpatient EL AYDELA, [facility] [id number] [facility] 00:00:00 00:00:00 HUMERA 2021-06-26 2021-06-26 Outpatient SABEROLA, [facility] [id number] [facility] 00:00:00 00:00:00 HUMERA 2021-06-26 2021-06-26 Outpatient EL [facility] [id number] [facility] 00:00:00 00:00:00 2021-06-22 2021-06-22 Outpatient [facility] [id number] [facility] 2021-06-22 2021-06-22 Outpatient [facility]MLC [facility] [id number] [facility] 2021-06-22 2021-06-22 Outpatient [facility] [id number] [facility] 2021-06-19 2021-06-19 Outpatient EL [facility] [id number] [facility] 00:00:00 00:00:00 2021-06-19 2021-06-19 Outpatient [facility] [id number] [facility] 2021-06-05 2021-06-05 Outpatient EL [facility] [id number] [facility] 00:00:00 00:00:00 2021-05-25 2021-05-25 Emergency ER [facility] Emergency [id number] [facility] 15:33:00 15:33:00 2021-05-25 2021-05-25 Outpatient [facility]MLC [facility] [id number] [facility] 2021-05-22 2021-05-22 Outpatient [facility] [id number] [facility] 2021-05-21 2021-05-21 Outpatient [facility]MLC [facility] [id number] [facility] 2021-04-09 2021-04-09 Outpatient [facility] [id number] [facility] 2021-01-21 2021-01-21 Outpatient [facility]MLC [facility] [id number] [facility] 2021-01-07 2021-01-07 Outpatient [facility] [id number] [facility] 2020-12-30 2020-12-30 Outpatient EL [facility] [id number] [facility] 00:00:00 00:00:00 2020-12-26 2020-12-26 Outpatient EL [facility] [id number] [facility] 00:00:00 00:00:00 2020-12-18 2020-12-18 Outpatient EL [facility] [id number] [facility] 00:00:00 00:00:00 2020-11-10 2020-11-10 Outpatient [facility] [id number] [facility] 2020-10-08 2020-10-08 Outpatient [facility]MLC [facility] [id number] [facility] 2020-08-15 2020-08-15 Outpatient [facility]LMLC [facility] [id number] [facility] 2020-06-25 2020-06-25 [facility] [id number] 15:00:00 15:00:00 t [place] [employer] s - Drive [facility] Family [facility] l Medicine Outpati ent Clinics 2020-06-25 2020-06-25 [facility] [id number] 15:00:00 15:00:00 t [place] [employer] s - Drive Family [facility] Family Medicine l Medicine Outpati ent Clinics 2020-03-12 2020-03-12 [facility] [id number] 13:45:00 13:45:00 t [place] [employer] s - Drive [facility] Family Medicine l Medicine Outpati ent Clinics 2020-02-12 2020-02-12 Outpatient Melodie [facility] [id number] Univers 09:00:00 09:00:00 CIERRA christy [facility] 2019-12-26 2019-12-26 Outpatient Corrie VFP VFP [id number] [place] 07:15:00 07:15:00 _A_AH [id number] Family Practic e 2019-12-26 2019-12-26 Outpatient Corrie OWUSUP VFP [id number] [facility] 07:15:00 07:15:00 _A_AH [id number] Family Practic e 2019-12-10 2019-12-10 [facility] [id number] 13:30:00 13:30:00 t [place] [employer] [facility] Medicine Medicine Outpati ent Clinics 2019-09-26 2019-09-26 [facility] [id number] 08:23:00 08:23:00 t [place] [employer] s - [employer] [facility] l Medicine Outpati ent Clinics 2019-09-20 2019-09-20 [facility] [id number] 16:58:00 16:58:00 t [place] [employer] s - [employer] [facility] Medicine Medicine Outpati ent Clinics 2019-08-10 2019-08-10 [facility] [id number] 09:15:00 09:15:00 t [place] [employer] s - [employer] [facility] l Medicine Outpati ent Clinics 2019-07-11 2019-07-11 [facility] [id number] 16:55:00 16:55:00 t [place] [employer] s - [employer] [facility] l Medicine Outpati ent Clinics 2019-07-11 2019-07-11 [facility] [id number] 10:15:00 10:15:00 t [place] [employer] [facility] Medicine Outpati ent Clinics 2019-07-06 2019-07-06 [facility] [id number] 16:41:00 16:41:00 t [place] [employer] s - Drive [facility] Medicine Outpati ent Clinics 2019-05-04 2019-05-04 Outpatient [facility] [id number] 09:00:00 13:49:28 2019-05-04 2019-05-04 Inpatient E [facility] [id number] [facility] 12:18:00 10:21:00 2019-05-04 2019-05-04 Appointmen RODRIGUE, LAQUITA [facility] [id number] [facility] 09:00:00 09:00:00 t; speedy MAE & zohreh of Allen HUSAIN Vascular Reinier MAE, Yvonne - Physic jc [facility] 2019-04-20 2019-04-20 [facility] [id number] 09:30:00 09:30:00 t [place] [employer] s - Drive [facility] Medicine Medicine Outpati ent Clinics 2019-02-27 2019-02-27 [facility] [id number] 10:00:00 10:00:00 t [place] [employer] s - [employer] [facility] Medicine Outpati ent Clinics 2019-01-24 2019-01-24 [facility] [id number] 10:45:00 10:45:00 t [place] [employer] s - [employer] [facility] Medicine Outpati ent Clinics 2019-01-10 2019-01-10 [facility] [id number] 07:54:00 07:54:00 t [place] [employer] s - [employer] [facility] Medicine Outpati ent Clinics 2018-11-15 2018-11-15 [facility] [id number] 10:00:00 10:00:00 t [place] [employer] s - [employer] [facility] Medicine Outpati ent Clinics 2018-10-12 2018-10-12 [facility] [id number] [facility] 15:00:00 15:00:00 t Specialty/U [facility] Specialty [facility]y [facility] /Urology Clinic l Clinic Outpati ent Clinics 2018-05-08 2018-05-08 [facility] [id number] 08:20:00 08:20:00 t [place] [employer] s - Drive [facility] Medicine Outpati ent Clinics 2018-05-01 2018-05-01 [facility] [id number] 08:46:00 08:46:00 t [place] [employer] s - Drive [facility] Medicine Outpati ent Clinics 2018-04-27 2018-04-27 [facility] [id number] 09:00:00 09:00:00 t [employer] - Drive [facility] Outpati ent Clinics 2018-04-20 2018-04-20 [facility] [id number] 13:36:00 13:36:00 t [employer] - Drive [facility] 2018-04-12 2018-04-12 [facility] [id number] 16:11:00 16:11:00 t [employer] - Drive [facility] Outpati ent Clinics 2018-04-10 2018-04-10 [facility] [id number] 14:45:00 14:45:00 t [employer] [facility] ent [facility] Results Test Description Test Time Test Comments Results Result Comments Source BODY FLUID CULTURE + GRAM STAIN 2021-10-15 10:11:18 Test Item Value Reference Range Interpretation Comme nts CULTURE (BEAKER) (test code = 1095) No growth U/S, [id number] 08:12:00DR STRIBLINGLabs to be ordered:->Body Fluid Culture (w/Gram Stain, C\T\S)Labs to be ordered:->Cell CountReason for exam:->abdominal distension [facility] CENTERName: TROY FORTE : 1955 Sex: MFINAL REPORT Ultrasound guided paracentesis. Clinical History: Ascites. Sedation: None. Composition Board Press Operator: Char Van PA-C Photographer: None. Estimated Blood Loss: < 1 cc. Specimen: 9700 cc of clear yellow fluid, samples sent to [...] manner. After local anesthesia was achieved with 2% lidocaine, a 5 Cambodian one-step catheter was advanced into the peritoneal cavity under ultrasoundguidance. After completion of drainage, the catheter was removed. There was no evidence of complication. Impression:Successful ultrasound guided paracentesis. Signed: Raymond Coffman MDReport Verified Date/Time: 10/13/2021 08:12:56 Reading Location: [address] Ultrasound Reading Room BODY FLUID CELL COUNT WITH DIFFERENTIAL 2021-10-12 16:32:03 Test Item Value Reference Range Interpretation Comments APPEARANCE FLUID Clear Clear (BEAKER) (test code = 510) COLOR FLUID (BEAKER) Yellow Colorless, Straw A (test code = 511) RBC FLUID (BEAKER) 247 /cu mm See_Comment H [Automat ed message] (test code = 513) The system which generated this result transmit nova reference range : <=1. The refere nce range was not u sed to interpret th is result as normal/abnormal . ADJUSTED WBC FLUID 163 /cu mm See_Comment H [Automat ed message] (BEAKER) (test code The syst em which = 1691) generated this result transmit nova reference range : <=5. The refere nce range was not u sed to interpret th is result as normal/abnormal . LINING CELLS 3 /cu mm See_Comment H [Automated mes amelia] (BEAKER) (test code The syst em which = 1590) generated this result transmit nova reference range : <=1. The refere nce range was not u sed to interpret th is result as normal/abnormal . NEUTROPHILS FLUID 4 % (BEAKER) (test code = 1656) LYMPHS FLUID 30 % (BEAKER) (test code = 488) MONO/MACROPHAGE 65 % FLUID (BEAKER) (test code = 489) EOSINOPHILS FLUID 0 % (BEAKER) (test code = 491) BASO FLUID (BEAKER) 1 % (test code = 492) CONTAINER BODY FLUID Sterile Vial (BEAKER) (test code = 2873) COMPREHENSIVE METABOLIC [id number] 10:23:58 Test Item Value Reference Range Interpretation Comments TOTAL PROTEIN 7.8 gm/dL 6.0-8.3 Specimen sligh tly (BEAKER) (test code = hemoly zed 770) ALBUMIN (BEAKER) 3.2 g/dL 3.5-5.0 L Specimen sl ightly (test code = 1145) hemolyzed ALKALINE PHOSPHATASE 181 U/L 40-150 H (BEAKER) (test code = 346) BILIRUBIN TOTAL 0.3 mg/dL 0.2-1.2 Specimen sli ghtly (BEAKER) (test code = hemoly zed 377) SODIUM (BEAKER) (test 134 meq/L 136-145 L code = 381) POTASSIUM (BEAKER) 4.6 meq/L 3.5-5.1 Specimen slightly (test code = 379) hemolyzed CHLORIDE (BEAKER) 94 meq/L 98-107 L (test code = 382) CO2 (BEAKER) (test 28 meq/L 22-29 code = 355) BLOOD UREA NITROGEN 42 mg/dL 7-21 H (BEAKER) (test code = 354) CREATININE (BEAKER) 5.23 mg/dL 0.57-1.25 H Specimen slightly (test code = 358) hemolyzed GLUCOSE RANDOM 147 mg/dL 70-105 H (BEAKER) (test code = 652) CALCIUM (BEAKER) 8.5 mg/dL 8.4-10.2 (test code = 697) AST (SGOT) (BEAKER) 26 U/L 5-34 Specimen slightly (test code = 353) hemolyzed ALT (SGPT) (BEAKER) 16 U/L 6-55 Specimen slightly (test code = 347) hemolyzed EGFR (BEAKER) (test 11 mL/min/1.73 ESTIMA NOVA GFR IS code = 1092) sq m NOT ACCURATE CREATININE CLEARANCE IN PREDICTING GLOMERULAR FILTRATION RATE . ESTIMATED GFR I S NOT APPLICABLE FOR DIALYSIS PATIEN TS. [employer] ID - JORDAN MB-TYPE NATRIURETIC FACTOR (BNP)2021-10-12 10:12:10 Test Item Value Reference Range Interpretation Comments B-TYPE NATRIURETIC PEPTIDE 4245 pg/mL 0-100 H (BEAKER) (test code = 700) [employer] ID - JORDAN [id number] 10:01:45 Test Item Value Reference Range Interpretation Comments PROTIME (BEAKER) (test 15.5 seconds 11.9-14.2 H code = 759) INR (BEAKER) (test 1.25 See_Comment [Automat ed code = 370) message] The sy stem which generated this result transmitted reference range : <=5.90. The reference range was not used to interpret this result as normal/abnormal . PARTIAL THROMBOPLASTIN 44.8 seconds 22.5-36.0 H TIME (BEAKER) (test code = 760) RECOMMENDED COUMADIN/WARFARIN INR THERAPY RANGESSTANDARD DOSE: 2.0 - 3.0 Includes: PROPHYLAXIS forvenous thrombosis, systemic embolization; TREATMENT for venous thrombosis and/or pulmonary embolus.HIGH RISK: Target INR is 2.5-3.5 for patients with mechanical heart valves.CBC W/PLT COUNT & AUTO DIFFERENTIAL 2021-10-12 09:56:44 Test Item Value Reference Range Interpretation Comments WHITE BLOOD CELL COUNT (BEAKER) 7.6 K/ L 3.5-10.5 (test code = 775) RED BLOOD CELL COUNT (BEAKER) 3.39 M/ L 4.63-6.08 L (test code = 761) HEMOGLOBIN (BEAKER) (test code = 9.9 GM/DL 13.7-17.5 L 410) HEMATOCRIT (BEAKER) (test code = 31.9 % 40.1-51.0 L 411) MEAN CORPUSCULAR VOLUME (BEAKER) 94.1 fL 79.0-92.2 H (test code = 753) MEAN CORPUSCULAR HEMOGLOBIN 29.2 pg 25.7-32.2 (BEAKER) (test code = 751) MEAN CORPUSCULAR HEMOGLOBIN CONC 31.0 GM/DL 32.3-36.5 L (BEAKER) (test code = 752) RED CELL DISTRIBUTION WIDTH 15.9 % 11.6-14.4 H (BEAKER) (test code = 412) PLATELET COUNT (BEAKER) (test 279 K/CU MM 150-450 code = 756) MEAN [...] = 2801) BODY FLUID CULTURE + GRAM [id number] 14:14:13 Test Item Value Reference Range Interpretation Comments CULTURE (BEAKER) (test code No growth = 1095) GRAM STAIN RESULT (BEAKER) <1+ WBCs (test code = 1123) GRAM STAIN RESULT (BEAKER) No organisms seen (test code = 16731) POCT-GLUCOSE [id number] 12:15:12 Test Item Value Reference Range Interpretation Comments POC-GLUCOSE METER 165 mg/dL 70-110 H : TESTED A T [facility] 6720 (BEAKER) (test code = CIERA [place], 1538) 26627: [employer]/Techni elsie ID = [id number] for DEONTE BOWIE ROBYN BASIC METABOLIC [id number] 08:52:50 Test Item Value Reference Range Interpretation [...] S NOT APPLICABLE FOR DIALYSIS PATIEN TS. [employer] ID - [id number] 08:49:00 Test Item Value Reference Range Interpretation Comments MAGNESIUM (BEAKER) (test code = 2.1 mg/dL 1.6-2.6 627) [employer] ID - ADMINPOCT-GLUCOSE [id number] 07:57:04 Test Item Value Reference Range Interpretation Comments POC-GLUCOSE METER 178 mg/dL 70-110 H : TESTED A T [facility] 6720 (BEAKER) (test code = CIERA Sewell [facility], 1538) 08591: [employer] Tender/Techni elsie ID = [id number] for ROBYN YANCEY CBC W/PLT COUNT & AUTO [id number] 06:39:06 Test Item Value Reference Range Interpretation [...] PERCENT (BEAKER) (test code = 2801) POCT-GLUCOSE [id number] 22:12:47 Test Item Value Reference Range Interpretation Comments POC-GLUCOSE METER 157 mg/dL 70-110 H : TESTED Lashell T [facility] 6720 (BEAKER) (test code = CIERA [place], 1538) 20202: [employer]ender/Techni elsie ID = [id number] for Pawel Reynolds POCT-GLUCOSE [id number] 17:45:52 Test Item Value Reference Range Interpretation Comments POC-GLUCOSE METER 159 mg/dL 70-110 H : TESTED A T [facility] 6720 (BEAKER) (test code = CIERA Sewell [facility], 1538) 86053: [employer]ender/Techni elsie ID = [id number] for Erma Kingston [id number] 13:58:31Medical Cytology Report Case: [id number] Authorizing Provider: Mauricio Perry, Collected: 08/03/2021 02:35 PM Ordering Location: [facility] Emergency Department Received: 08/04/2021 09:29 AM Pathologist: Genevieve Mendez MD Specimen: Perit cabezas Fluid PERITONEAL FLUID (CYTOSPINS): - NEGATIVE FOR MALIGNANCY Signing Pathologist Direct Phone Line: [phone] signed by Genevieve Mendez MD on 08/04/2021 at 1:58 [id number], history of cirrhosis and ESRD.PERITONEAL FLUIDReceived 1600 mls brown fluid; prepared 4 cytospins. Performed. [facility], Department of Pathology, [address] [place] [address], [facility], [address] [place] [address], [facility], [facility] of [facility], [address] [place] [address], MXZY-GLUCOSE [id number] 12:51:45 Test Item Value Reference Range Interpretation Comments POC-GLUCOSE METER 110 mg/dL 70-110 : TESTED A T [facility] 6720 (BEAKER) (test code = CIERA Sewell [facility], 1538) [address]: Rabble Furnace Tender/Techni elsie ID = [id number] for Erma Kingston LACTATE DEHYDROGENASE (LDH), BODY [id number] 09:48:21 Test Item Value Reference Range Interpretation Comments LACTATE DEHYDROGENASE FLUID (BEAKER) 141 U/L (test code = 634) Absence of reference range indicates that normals have not been defined.Assay performance has not been validated for this type of specimen.Rabble Furnace Tender ID - DSENSONPROTEIN, BODY [id number] 09:44:56 Test Item Value Reference Range Interpretation Comments PROTEIN FLUID (BEAKER) (test code = 3.9 g/dL 579) Absence of reference range indicates that normals have not been defined.Assay performance has not been validated for this type of specimen.Rabble Furnace Tender ID - YANNIBASIC METABOLIC [id number] 06:39:38 Test Item Value Reference Range Interpretation [...] S NOT APPLICABLE FOR DIALYSIS PATIEN TS. Rabble Furnace Tender ID - JORDAN [id number] 06:39:14 Test Item Value Reference Range Interpretation Comments MAGNESIUM (BEAKER) (test code = 2.0 mg/dL 1.6-2.6 627) Rabble Furnace Tender ID - JORDAN MCBC W/PLT COUNT & AUTO [id number] 06:11:35 Test Item Value Reference Range Interpretation [...] PERCENT (BEAKER) (test code = 2801) POCT-GLUCOSE [id number] 22:05:32 Test Item Value Reference Range Interpretation Comments POC-GLUCOSE METER 137 mg/dL 70-110 H : TESTED A T [facility] 6720 (BEAKER) (test code = CI[place]A [place], 1538) [address]: Rabble Furnace Tender/Techni elsie ID = [id number] for GINA SALAZAR HEPATITIS B SURFACE [id number] 21:43:34 Test Item Value Reference Range Interpretation Comments HEPATITIS B SURFACE ANTIGEN (2) Nonreactive Nonreactive (BEAKER) (test code = 2585) Specimen is considered negative for HBsAg.BODY FLUID CELL COUNT WITH [id number] 18:09:33 Test Item Value Reference Range Interpretation [...] FLUID (BEAKER) (test code = 2873) POCT-GLUCOSE [id number] 17:22:05 Test Item Value Reference Range Interpretation Comments POC-GLUCOSE METER 117 mg/dL 70-110 H : TESTED A T [facility] 6720 (BEAKER) (test code = [place], 1538) [address]: Rabble Furnace Tender/Techni elsie ID = [id number] for Rachel Erma thompson U/S, [id number] 17:04:00DR STRIBLINGLabs to be ordered:->Body Fluid Culture (w/Gram Stain, C\T\S)Labs to be ordered:->CytologyLabs to be ordered:->Glucose+LDH+ProteinLabs to be ordered:->Cell CountReason for exam:->CHEST PAINReason for exam:->EDEMA [facility] : 1955 Sex: MFINAL REPORT Ultrasound guided paracentesis Clinical History: Ascites. Sedation: None. Composition Board Press Operator: Klaudia Garcia PA-C Supervising Physician: Brady Self MD Photographer: None. Estimated Blood Loss: < 1 mL. [...] anesthesia was achieved with lidocaine, a 5 Cambodian one-step catheter was advanced intothe peritoneal cavity under ultrasound guidance. After completion of drainage, the catheter was removed. There was no evidence of complication. Impression:Successful ultrasound guided paracentesis. Signed: Brady Self MDReport Verified Date/Time: 08/03/2021 17:04:47 Reading Location: [address] Ultrasound Reading Room SARS-COV2/RT-PCR ([facility])2021-08-03 14:42:37 Test Item Value Reference Range Interpretation Comments SARS-COV2/RT-PCR Negative Negative The SARS-Co V-2 target (test code = nucleic acids a re not 1331275) detected in thi s specimen. Negative result [...] rapid, real-reese e RT-PCR test intended for th e qualitative detection of nu cleic acid from SARS-CoV-2 in a nasopharyngeal swab specimen collected from individuals suspected of CO VID-19 by their healthcar e provider. This test has been authorized [...] revoked sooner. Fact Sheet for Healthcare Providers: https://www.authorSTREAM.com/Documents/Xpert%20Xpress%20SARS%20CoV-2/Fact%20Sheets/024-9797%20SARS-COV -2%20HEALTHCARE%20PROVIDERS%20FACT%20SHEET.pdf Fact Sheet for Healthcare Patients: https://www.LegCyte/Documents/Xpert %20Xpress%20SARS%20CoV-2/Fact%20Sheets/442-0924%88VFFR-UIV-1%20PATIENT%20FACT%20 SHEET.pdfB-TYPE NATRIURETIC FACTOR (BNP)2021-08-03 12:54:07 Test Item Value Reference Range Interpretation Comments B-TYPE NATRIURETIC PEPTIDE 94834 pg/mL 0-100 H (BEAKER) (test code = 700) Rabble Furnace Tender ID - JOHAN FOperator ID - JOHAN FHIGH SENSITIVITY TROPONIN I 2021-08-03 12:37:33 Test Item Value Reference Range Interpretation Comments HIGH SENSITIVITY 43 pg/ml See_Comment H [Automated message] TROPONIN I (test code = The system which 5823919) generated this result transmitted ref erence range: <=35. Th e reference range was not used to int erpret this result as normal/abnormal . Rabble Furnace Tender ID - JOHAN FThe PRODUCT CONSULTANT STAT High Sensitivity Troponin-I results should be used in conjunction with other diagnostic information such as ECG, clinical observations and information, and patient symptoms to aid in the diagnosis of [place].COMPREHENSIVE METABOLIC [id number] 12:32:18 Test Item Value Reference Range Interpretation [...] S NOT APPLICABLE FOR DIALYSIS PATIEN TS. Rabble Furnace Tender ID - JOHAN [id number] 12:30:52 Test Item Value Reference Range Interpretation Comments PHOSPHORUS (BEAKER) (test code = 2.6 mg/dL 2.3-4.7 604) Rabble Furnace Tender ID - JOHAN [id number] 12:30:51 Test Item Value Reference Range Interpretation Comments MAGNESIUM (BEAKER) (test code = 2.1 mg/dL 1.6-2.6 627) Rabble Furnace Tender ID - JOHAN FPROTHROMBIN TIME/[id number] 12:14:02 Test Item Value Reference Range Interpretation Comments PROTIME (BEAKER) 14.5 seconds 11.9-14.2 H (test code = 759) INR (BEAKER) (test 1.15 See_Comment [Automat ed message] code = 370) The system VertiFlex generated this result transmitted ref erence range: [...] = 2801) RAD, CHEST, 1 VIEW, NON [id number] 11:47:00DR STRIBLINGReason for exam:- >CHEST PAINReason for exam:->EDEMAShould this be performed at the bedside?->YesANDERSON SANATORIUMName: TROY FORTE DOB: 1955 Sex: MFINAL REPORT RAD, CHEST, 1 VIEW, NON DEPT INDICATION: CHEST PAINEDEMA COMPARISON: Prior day's exam FINDINGS: Portable frontal view of the chest. IMPRESSION: Support Lines: Pacer device and sternotomy wires. Lungs and pleura: Bilateral effusions and adjacent atelectasis Nosignificant pneumothorax. Heart and mediastinum: Stable contours. Additional findings: None. Signed: Arlet Sr Verified Date/Time: 08/03/2021 11:47:09 Reading Location: [facility] Radiology Reading Room ALPHA FETOPROTEIN (AFP), TUMOR [id number] 13:27:00 Test Item Value Reference Range Interpretation Comments ALPHA-FETOPROTEIN (BEAKER) (test code < ng/mL <10.0 = 1094) Rabble Furnace Tender ID - PATRICIA CBASI METABOLIC [id number] 13:06:00 Test Item Value Reference Range Interpretation [...] S NOT APPLICABLE FOR DIALYSIS PATIEN TS. Rabble Furnace Tender ID - PATRICIA CHEPATIC FUNCTION [id number] 13:05:00 Test Item Value Reference Range Interpretation [...] (test code = 9 U/L 6-55 347) Rabble Furnace Tender ID - PATRICIA CPROTHROMBIN TIME/[id number] 12:40:00 Test Item Value Reference Range Interpretation Comments PROTIME (BEAKER) 13.9 seconds 11.9-14.2 (test code = 759) INR (BEAKER) (test 1.09 See_Comment [Automat ed message] code = 370) The system VertiFlex generated this result transmitted ref erence range: [...] = 2801) BODY FLUID CULTURE + GRAM [id number] 13:49:00 Test Item Value Reference Range Interpretation Comments CULTURE (BEAKER) (test No growth code = 1095) GRAM STAIN RESULT <1+ White blood cells (BEAKER) (test code = seen 1123) GRAM STAIN RESULT No organisms seen (BEAKER) (test code = 385134) [id number] 18:55:00Medical Cytology Report Case: [id number] Authorizing Provider: Wicho Garcia MD Collected: 06/03/2021 05:57 PM Ordering Location: [place] [address] Dialysis Received: 06/04/2021 10:06 AM Nephrology Service Pathologist: Silvestre Le MD Specimen: Pleural, Right PLEURAL, RIGHT, FLUID (CYTOSPINS): - NEGATIVE FOR MALIGNANCY Signing Pathologist Direct Phone Line: [phone] signed by Silvestre Le MD on 06/05/2021 at 6:55 [id number] pleural effusion; PMH of HTN, HLD, CAD s/p ACB at [facility] on 05/18/2019, HFrEF 2/2 ICM with EF 25% s/p ICD, ESRD on iHD, cirrhosis, who presents with dyspnea, worsening BLE edema and genital painPLEURAL, RIGHT, FLUIDReceived 1000 ml bloody fluid; prepared 4 cytospinsPerformed. [facility],Department of Pathology, [address] [place] [address], [facility], [facility] of [facility], [address] [place] [address], [facility], Department of Pathology, [address] [place] [address], LSKB-GLUCOSE [id number] 13:22:00 Test Item Value Reference Range Interpretation Comments POC-GLUCOSE METER 138 mg/dL 70-110 H : TESTED A T [facility] 6720 (BEAKER) (test code = CIERA Sewell [facility], 1538) [address]: Rabble Furnace Tender/Techni elsie ID = [id number] for EDE GASPAR U/S, [id number] 13:01:00DR STRIBLINGLaterality?->RightReason for exam:->moderate to large pleural effusionLabs to be Ordered:->Body Fluid Culture (w/Gram Stain, C\T\S)Labs to be Ordered:->CytologyLabs to be Ordered :->Cell CountLabs to be Ordered:->Glucose+LDH+Protein [facility] : 1955 Sex: MFINAL REPORT Exam: Ultrasound guided thoracentesis Clinical History: Right-sided Pleural Effusion Composition Board Press Operator: Michelle Wilson PA-C Supervising Physician: Jose Guadalupe [...] guided right-sided thoracentesis. Signed: Jose Guadalupe Bernardo MDReport Verified Date/Time: 06/05/2021 13:01:06 Reading Location: [address] Ultrasound Reading Room POCT-GLUCOSE [id number] 08:36:00 Test Item Value Reference Range Interpretation Comments POC-GLUCOSE METER 219 mg/dL 70-110 H : TESTED A T [facility] 6720 (BEAKER) (test code = [place], 1538) [address]: Rabble Furnace Tender/Techni elsie ID = [id number] for EDE GASPAR BASIC METABOLIC [id number] 04:46:00 Test Item Value Reference Range Interpretation [...] S NOT APPLICABLE FOR DIALYSIS PATIEN TS. Rabble Furnace Tender ID - PIAYA [id number] 04:45:00 Test Item Value Reference Range Interpretation Comments MAGNESIUM (BEAKER) (test code = 2.1 mg/dL 1.6-2.6 627) Rabble Furnace Tender ID - JEVON [id number] 04:45:00 Test Item Value Reference Range Interpretation Comments PHOSPHORUS (BEAKER) (test code = 2.9 mg/dL 2.3-4.7 604) Rabble Furnace Tender ID - JEVON LCBC W/PLT COUNT & AUTO [id number] 04:21:00 Test Item Value Reference Range Interpretation [...] PERCENT (BEAKER) (test code = 2801) POCT-GLUCOSE [id number] 22:21:00 Test Item Value Reference Range Interpretation Comments POC-GLUCOSE METER 242 mg/dL 70-110 H : TESTED Lashell Ureña [facility] 6720 (BEAKER) (test code = [place], 1538) [address]: Rabble Furnace Tender/Techni elsie ID = [id number] for Pee Solorio POCT-GLUCOSE [id number] 12:26:00 Test Item Value Reference Range Interpretation Comments POC-GLUCOSE METER 181 mg/dL 70-110 H : TESTED A T [facility] 6720 (BEAKER) (test code = [facility] Melodie [facility], 1538) [address]: Rabble Furnace Tender/Techni elsie ID = [id number] for ABDAIS QUEZADA, OZLEM LACTATE DEHYDROGENASE (LDH), BODY [id number] 10:04:00 Test Item Value Reference Range Interpretation Comments LACTATE DEHYDROGENASE FLUID (BEAKER) 117 U/L (test code = 634) Absence of reference range indicates that normals have not been defined.Assay performance has not been validated for this type of specimen.Rabble Furnace Tender ID - [id number], BODY [id number] 10:01:00 Test Item Value Reference Range Interpretation Comments PROTEIN FLUID (BEAKER) (test code = 3.2 g/dL 579) Absence of reference range indicates that normals have not been defined.Assay performance has not been validated for this type of specimen.Rabble Furnace Tender ID - myev99JUCE-HWFPFKS [id number] 08:30:00 Test Item Value Reference Range Interpretation Comments POC-GLUCOSE METER 144 mg/dL 70-110 H : TESTED A T [facility] 6720 (BEAKER) (test code = [facility], 1538) [address]: Rabble Furnace Tender/Techni elsie ID = [id number] for IB EBENM, [place] BASIC METABOLIC [id number] 05:13:00 Test Item Value Reference Range Interpretation [...] S NOT APPLICABLE FOR DIALYSIS PATIEN TS. Rabble Furnace Tender ID - [id number] 05:10:00 Test Item Value Reference Range Interpretation Comments MAGNESIUM (BEAKER) (test code = 2.1 mg/dL 1.6-2.6 627) Rabble Furnace Tender ID - [id number] 05:10:00 Test Item Value Reference Range Interpretation Comments PHOSPHORUS (BEAKER) (test code = 5.3 mg/dL 2.3-4.7 H 604) Rabble Furnace Tender ID - BSCBC W/PLT COUNT & AUTO [id number] 04:43:00 Test Item Value Reference Range Interpretation [...] = 2801) BODY FLUID CELL COUNT WITH [id number] 21:44:00 Test Item Value Reference Range Interpretation Comments APPEARANCE FLUID Slightly Bloody Clear A (BEAKER) (test code = 510) COLOR FLUID [place] Colorless, Straw A (BEAKER) (test code = 511) RBC FLUID (BEAKER) 37386 /cu mm See_Comment H [Automat ed (test [...] FLUID (BEAKER) (test code = 2873) POCT-GLUCOSE [id number] 21:31:00 Test Item Value Reference Range Interpretation Comments POC-GLUCOSE METER 181 mg/dL 70-110 H : TESTED A T [facility] 6720 (BEAKER) (test code = [facility] Melodie [facility], 1538) 725[address]: Rabble Furnace Tender/Techni elsie ID = [id number] for Gi sset (pca2), Conn POCT-GLUCOSE [id number] 18:30:00 Test Item Value Reference Range Interpretation Comments POC-GLUCOSE METER 167 mg/dL 70-110 H : TESTED A T [facility] 6720 (BEAKER) (test code = [facility], 1538) 733[address]: Rabble Furnace Tender/Techni elsie ID = [id number] for CA STRO LUCY RAD, CHEST, 1 VIEW, NON [id number] 18:20:00DR Jc for exam:- >post right sided thoracentesisShould this be performed [facility] e?->YesANDERSON SANATORIUMName: TROY FORTE : 1955 Sex: MFINAL REPORT Chest, one [...] No acute bone abnormality. Signed: Poornima Russo MDReport Verified Date/Time: 06/03/2021 18:20:00 Reading Location: [facility] [id number] Consult Reading Room POCT-GLUCOSE METER 2021-06-03 11:45:00 Test Item Value Reference Range Interpretation Comments POC-GLUCOSE METER 159 mg/dL 70-110 H : TESTED A T [facility] 6720 (BEAKER) (test code = [facility], 1538) 40528: Rabble Furnace Tender/Techni elsie ID = [id number] for Junie Gutiérrez POCT-GLUCOSE [id number] 09:28:00 Test Item Value Reference Range Interpretation Comments POC-GLUCOSE METER 163 mg/dL 70-110 H : TESTED A T [facility] 6720 (BEAKER) (test code = [facility], 1538) 837[address]: Rabble Furnace Tender/Techni elsie ID = [id number] for Junie Gutiérrez CBC W/PLT COUNT & AUTO [id number] 05:53:00 Test Item Value Reference Range Interpretation [...] (BEAKER) (test code = 2801) BASIC METABOLIC [id number] 05:41:00 Test Item Value Reference Range Interpretation [...] S NOT APPLICABLE FOR DIALYSIS PATIEN TS. Rabble Furnace Tender ID - JORDAN [id number] 05:22:00 Test Item Value Reference Range Interpretation Comments MAGNESIUM (BEAKER) (test code = 2.0 mg/dL 1.6-2.6 627) Rabble Furnace Tender ID - JORDAN [id number] 05:22:00 Test Item Value Reference Range Interpretation Comments PHOSPHORUS (BEAKER) (test code = 4.8 mg/dL 2.3-4.7 H 604) Rabble Furnace Tender ID - JORDAN MSARS-COV2/RT-PCR ([facility])2021-06-03 03:56:00 Test Item Value Reference Range Interpretation Comments SARS-COV2/RT-PCR (test code = Negative Negative 1440381) Negative result for this test determines that [...] the Zapata SARS-CoV-2 assay.Fact Sheet for Healthcare Providers:https://www.[employer].Labcyte/tracy/RT SARS-CoV-2 HCP Fact Sheet 51- 285671.pdfFact Sheet for Healthcare Patients:https://www.[employer].Labcyte/tracy/RT SARS-CoV-2 Patient Fact Sheet EN 51-261029Z0.pdfPROTHROMBIN TIME/[id number] 01:17:00 Test Item Value Reference Range Interpretation Comments PROTIME (CONRAD) 14.3 seconds 11.9-14.2 H (test code = 759) INR (CONRAD) (test 1.13 See_Comment [Automat ed message] code = 370) The system VertiFlex generated this result transmitted ref erence range: <=5.90. The reference range was not used to int erpret this result as normal/abnormal . RECOMMENDED COUMADIN/WARFARIN INR THERAPY RANGESSTANDARD DOSE: 2.0 - 3.0 Includes: PROPHYLAXIS forvenous thrombosis, systemic embolization; TREATMENT for venous thrombosis and/or pulmonary embolus.HIGH RISK: Target INR is 2.5-3.5 for patients with mechanical heart valves.POCT-GLUCOSE [id number] 21:22:00 Test Item Value Reference Range Interpretation Comments POC-GLUCOSE METER 150 mg/dL 70-110 H : TESTED A T [facility] 67 (ISAACDIPIKA) (test code = [facility] Melodie [facility], 153) [address]: Rabble Furnace Tender/Techni elsie ID = [id number] for Hodan Mayo POCT-GLUCOSE [id number] 17:33:00 Test Item Value Reference Range Interpretation Comments POC-GLUCOSE METER 183 mg/dL 70-110 H : Notified RN/MD: (CONRAD) (test code = TESTED AT [place] [id number] 1538) [facility], [address]: Rabble Furnace Tender/Techni elsie ID = [id number] for Alexandrea Hernandez POCT-GLUCOSE [id number] 08:46:00 Test Item Value Reference Range Interpretation Comments POC-GLUCOSE METER 143 mg/dL 70-110 H : Notified RN/MD: (CONRAD) (test code = TESTED AT [facility] 3157 8940) [facility], [address]: Rabble Furnace Tender/Techni elsie ID = [id number] for Alexandrea Hernandez BASIC METABOLIC [id number] 07:12:00 Test Item Value Reference Range Interpretation [...] S NOT APPLICABLE FOR DIALYSIS PATIEN TS. Rabble Furnace Tender ID - JORDAN [id number] 07:04:00 Test Item Value Reference Range Interpretation Comments MAGNESIUM (BEAKER) (test code = 2.1 mg/dL 1.6-2.6 627) Rabble Furnace Tender ID - JORDAN [id number] 07:04:00 Test Item Value Reference Range Interpretation Comments PHOSPHORUS (BEAKER) (test code = 5.7 mg/dL 2.3-4.7 H 604) Rabble Furnace Tender ID - JORDAN MCBC W/PLT COUNT & AUTO [id number] 06:25:00 Test Item Value Reference Range Interpretation [...] PERCENT (BEAKER) (test code = 2801) POCT-GLUCOSE [id number] 21:18:00 Test Item Value Reference Range Interpretation Comments POC-GLUCOSE METER 117 mg/dL 70-110 H : TESTED A T [facility] 6720 (BEAKER) (test code = [place], 1538) [address]: Rabble Furnace Tender/Techni elsie ID = [id number] for Hodan Mayo POCT-GLUCOSE [id number] 18:18:00 Test Item Value Reference Range Interpretation Comments POC-GLUCOSE METER 123 mg/dL 70-110 H : Notified RN/MD: (CONRAD) (test code = TESTED AT [place] [address]) [facility], [address]: Rabble Furnace Tender/Techni elsie ID = [id number] for Co christian, Alexandrea POCT-GLUCOSE [id number] 12:40:00 Test Item Value Reference Range Interpretation Comments POC-GLUCOSE METER 169 mg/dL 70-110 H : Notified RN/MD: (CONRAD) (test code = TESTED AT [place] [address]) [facility], [address]: Rabble Furnace Tender/Techni elsie ID = [id number] for Co christian, Alexandrea POCT-GLUCOSE [id number] 08:51:00 Test Item Value Reference Range Interpretation Comments POC-GLUCOSE METER 119 mg/dL 70-110 H : Notified RN/MD: (CONRAD) (test code = TESTED AT [place] [address]) [facility], [address]: Rabble Furnace Tender/Techni elsie ID = [id number] for Co christian, Alexandrea BASIC METABOLIC [id number] 06:37:00 Test Item Value Reference Range Interpretation [...] S NOT APPLICABLE FOR DIALYSIS PATIEN TS. Rabble Furnace Tender ID - MAGEN [id number] 06:34:00 Test Item Value Reference Range Interpretation Comments MAGNESIUM (BEAKER) (test code = 2.1 mg/dL 1.6-2.6 627) Rabble Furnace Tender ID - MAGEN [id number] 06:34:00 Test Item Value Reference Range Interpretation Comments PHOSPHORUS (BEAKER) (test code = 5.1 mg/dL 2.3-4.7 H 604) Rabble Furnace Tender ID - MAGEN WCBC W/PLT COUNT & AUTO [id number] 05:46:00 Test Item Value Reference Range Interpretation [...] PERCENT (BEAKER) (test code = 2801) POCT-GLUCOSE [id number] 21:36:00 Test Item Value Reference Range Interpretation Comments POC-GLUCOSE METER 160 mg/dL 70-110 H : TESTED A T [facility] 6720 (BEAKER) (test code = [facility], 153) [address]: Rabble Furnace Tender/Techni elsie ID = [id number] for LI WILMAN RAMIREZ POCT-GLUCOSE [id number] 17:16:00 Test Item Value Reference Range Interpretation Comments POC-GLUCOSE METER 151 mg/dL 70-110 H : TESTED A T [facility] 6720 (BEAKER) (test code = [facility], 153) [address]: Rabble Furnace Tender/Techni elsie ID = [id number] for CA STRO, LUCY POCT-GLUCOSE [id number] 12:22:00 Test Item Value Reference Range Interpretation Comments POC-GLUCOSE METER 153 mg/dL 70-110 H : TESTED A T [facility] 6720 (BEAKER) (test code = [facility], 153) [address]: Rabble Furnace Tender/Techni elsie ID = [id number] for CA STRO, LUCY BASIC METABOLIC [id number] 04:46:00 Test Item Value Reference Range Interpretation [...] S NOT APPLICABLE FOR DIALYSIS PATIEN TS. Rabble Furnace Tender ID - MAGEN [id number] 04:25:00 Test Item Value Reference Range Interpretation Comments MAGNESIUM (BEAKER) (test code = 2.0 mg/dL 1.6-2.6 627) Rabble Furnace Tender ID - MAGEN [id number] 04:25:00 Test Item Value Reference Range Interpretation Comments PHOSPHORUS (BEAKER) (test code = 4.3 mg/dL 2.3-4.7 604) Rabble Furnace Tender ID - MAGEN WCBC W/PLT COUNT & AUTO [id number] 03:56:00 Test Item Value Reference Range Interpretation [...] PERCENT (BEAKER) (test code = 2801) POCT-GLUCOSE [id number] 21:39:00 Test Item Value Reference Range Interpretation Comments POC-GLUCOSE METER 183 mg/dL 70-110 H : TESTED A T [facility] 6720 (BEAKER) (test code = [facility], 153) [address]: Rabble Furnace Tender/Techni elsie ID = [id number] for WILMAN BIRD RA POCT-GLUCOSE [id number] 17:38:00 Test Item Value Reference Range Interpretation Comments POC-GLUCOSE METER 145 mg/dL 70-110 H : TESTED A T [facility] 6720 (BEAKER) (test code = [facility], 153) [address]: Rabble Furnace Tender/Techni elsie ID = [id number] for IB RAHIM, [place]EM POCT-GLUCOSE [id number] 12:58:00 Test Item Value Reference Range Interpretation Comments POC-GLUCOSE METER 122 mg/dL 70-110 H : TESTED A T [facility] 6720 (BEAKER) (test code = [place], 1538) [address]: Rabble Furnace Tender/Techni elsie ID = [id number] for FAHAD CASTAÑEDA BASIC METABOLIC [id number] 06:52:00 Test Item Value Reference Range Interpretation [...] S NOT APPLICABLE FOR DIALYSIS PATIEN TS. Rabble Furnace Tender ID - JORDAN [id number] 06:36:00 Test Item Value Reference Range Interpretation Comments MAGNESIUM (BEAKER) (test code = 2.1 mg/dL 1.6-2.6 627) [employer]ace Tender ID - JORDAN [id number] 06:36:00 Test Item Value Reference Range Interpretation Comments PHOSPHORUS (BEAKER) (test code = 5.0 mg/dL 2.3-4.7 H 604) [employer]ble Furnace Tender ID - JORDAN MCBC W/PLT COUNT & AUTO [id number] 06:13:00 Test Item Value Reference Range Interpretation [...] PERCENT (BEAKER) (test code = 2801) POCT-GLUCOSE [id number] 21:35:00 Test Item Value Reference Range Interpretation Comments POC-GLUCOSE METER 132 mg/dL 70-110 H : TESTED A T [facility] 6720 (BEAKER) (test code = [facility], 1538) 28293: Rabble Furnace Tender/Techni elsie ID = [id number] for WILMAN BIRD RA POCT-GLUCOSE [id number] 17:32:00 Test Item Value Reference Range Interpretation Comments POC-GLUCOSE METER 140 mg/dL 70-110 H : TESTED A T [facility] 6720 (BEAKER) (test code = [facility], 1538) 23999: Rabble Furnace Tender/Techni elsie ID = [id number] for IB RAHIM, [place] POCT-GLUCOSE [id number] 11:19:00 Test Item Value Reference Range Interpretation Comments POC-GLUCOSE METER 159 mg/dL 70-110 H : TESTED A T [facility] 6720 (BEAKER) (test code = [facility], 1538) 78706: Rabble Furnace Tender/Techni elsie ID = [id number] for IB RAHIM, [place] BASIC METABOLIC [id number] 08:10:00 Test Item Value Reference Range Interpretation [...] S NOT APPLICABLE FOR DIALYSIS PATIEN TS. [employer]ble Furnace Tender ID - DAREK [id number] 08:05:00 Test Item Value Reference Range Interpretation Comments MAGNESIUM (BEAKER) (test code = 1.9 mg/dL 1.6-2.6 627) [employer]ble Furnace Tender ID - DAREK [id number] 08:05:00 Test Item Value Reference Range Interpretation Comments PHOSPHORUS (BEAKER) (test code = 4.3 mg/dL 2.3-4.7 604) [employer]ble Furnace Tender ID - DAREK MPOCT-GLUCOSE [id number] 07:57:00 Test Item Value Reference Range Interpretation Comments POC-GLUCOSE METER 144 mg/dL 70-110 H : TESTED A T [facility] 6720 (BEAKER) (test code = [facility] [place], 1538) 89883: Rabble Furnace Tender/Techni elsie ID = [id number] for FAHAD CASTAÑEDA CBC W/PLT COUNT & AUTO [id number] 07:45:00 Test Item Value Reference Range Interpretation [...] PERCENT (BEAKER) (test code = 2801) POCT-GLUCOSE [id number] 21:17:00 Test Item Value Reference Range Interpretation Comments POC-GLUCOSE METER 162 mg/dL 70-110 H : TESTED A T [facility] 6720 (BEAKER) (test code = [facility], 1538) 45654: Rabble Furnace Tender/Techni elsie ID = [id number] for Hodan Mayo POCT-GLUCOSE [id number] 17:43:00 Test Item Value Reference Range Interpretation Comments POC-GLUCOSE METER 129 mg/dL 70-110 H : TESTED A T [facility] 6720 (BEAKER) (test code = [facility], 1538) 30498: Rabble Furnace Tender/Techni elsie ID = [id number] for Riri Edwin pop U/S, [id number] 15:28:00DR STRIBLINGLabs to be ordered:->Body Fluid Culture (w/Gram Stain, C\T\S)Labs to be ordered:->G lucose+LDH+ProteinLabs to be ordered:->Cell CountLabs to be ordered:- >CytologyReason for exam:->ascites [facility] : 1955 Sex: MFINAL REPORT Ultrasound guided paracentesis Clinical History: Ascites. Sedation: None. Composition Board Press Operator: Michelle Wilson PA-C Supervising Physician: Scott Alcazar MD Photographer: None. Estimated Blood Loss: < 1 mL. [...] anesthesia was achieved with lidocaine, a 5 Cambodian one-step catheter was advanced into the peritoneal cavity under ultrasound guidance. After completion of drainage, the catheter was removed. There was no evidence of complication. Impression:Successful ultrasound guided paracentesis. Signed: Scott [facility] Verified Date/Time: 05/28/2021 15:28:45 Reading Location: [address] Ultrasound Reading Room RAD, CHEST, 1 VIEW, NON [id number] 12:52:00DR STRIBLINGReason for exam:->interval change, pleural effusionShould this be performed at the bedside?->Yes [facility] : 1955 Sex: MFINAL REPORT [...] MDReport Verified Date/Time: 05/28/2021 12:52:22 Reading Location: [facility] Diagnostic Imaging Reading Room - [place] [address] POCT-GLUCOSE [id number] 12:06:00 Test Item Value Reference Range Interpretation Comments POC-GLUCOSE METER 157 mg/dL 70-110 H : TESTED A T [place] [address] ([facility]) (test code = [facility], 153) 58006: Rabble Furnace Tender/Techni elsie ID = [id number] for Yuki cai (pca2), Shayna BODY FLUID CULTURE + GRAM [id number] 09:41:00 Test Item Value Reference Range Interpretation Comments [facility] (test code No growth = 1095) GRAM STAIN RESULT ([facility]) 1+ WBCs (test code = 1123) GRAM STAIN RESULT ([facility]) No organisms seen (test code = 05898) POCT-GLUCOSE [id number] 08:28:00 Test Item Value Reference Range Interpretation Comments POC-GLUCOSE METER 123 mg/dL 70-110 H : Notified RN/MD: ([facility]) (test code = TESTED AT [place] [id number] 1538) [facility], [address]: Rabble Furnace Tender/Techni elsie ID = [id number] for Yuki caballero (pca2), Nohelia [id number] 08:10:00 Test Item Value Reference Range Interpretation Comments MAGNESIUM (BEAKER) (test code = 1.8 mg/dL 1.6-2.6 627) [employer]ble Furnace Tender ID - PATRICIA [facility] METABOLIC [id number] 07:50:00 Test Item Value Reference Range Interpretation [...] S NOT APPLICABLE FOR DIALYSIS PATIEN TS. Rabble Furnace Tender ID - ANIBALROSS [id number] 07:35:00 Test Item Value Reference Range Interpretation Comments PHOSPHORUS (BEAKER) (test code = 5.7 mg/dL 2.3-4.7 H 604) Rabble Furnace Tender ID - ANIBALROSS LCBC W/PLT COUNT & AUTO [id number] 07:06:00 Test Item Value Reference Range Interpretation [...] PERCENT (BEAKER) (test code = 2801) POCT-GLUCOSE [id number] 21:19:00 Test Item Value Reference Range Interpretation Comments POC-GLUCOSE METER 126 mg/dL 70-110 H : TESTED A T [facility] 6720 (BEAKER) (test code = [facility] [place], 1538) 795[address]: Rabble Furnace Tender/Techni elsie ID = [id number] for Arlet Yanes POCT-GLUCOSE [id number] 18:22:00 Test Item Value Reference Range Interpretation Comments POC-GLUCOSE METER 164 mg/dL 70-110 H : Notified RN/MD: ([facility]) (test code = TESTED AT [place] [address] 1535) [facility], [address]: Rabble Furnace Tender/Techni elsie ID = [id number] for Yuki caballero (pca2), Nohelia POCT-GLUCOSE [id number] 13:51:00 Test Item Value Reference Range Interpretation Comments POC-GLUCOSE METER 114 mg/dL 70-110 H : Notified RN/MD: (CONRAD) (test code = TESTED AT [facility] 67 1538) [facility], [address]: Rabble Furnace Tender/Techni elsie ID = [id number] for Yuki caballero (pca2), Rotan [id number] 11:15:00Medical Cytology Report Case: [id number] Authorizing Provider: Rome Bhatti MD Collected: 05/26/2021 10:25 AM Ordering Location: [facility] Emergency Department Received: 05/26/2021 01:28 PM Pathologist: Silvestre Le MD Specimen: Peritoneal Fluid PERITONEAL FLUID (CYTOSPINS AND CELL BLOCK): -NEGATIVE FOR MALIGNANCY Signing Pathologist Direct Phone Line: [phone] Reactive mesothelial cells are present.22664, 31478Mlugbss; history of chronic systolic/diastolic heart failure, cirrhosis, DM, hypothyroidism, HLD, chronic hypotension, CAD, chronic anemia, ESRD presented with abdominal distension, decreased uop, burning of foreskin and penisPERITONEAL FLUIDReceived 1500 ml clear, yellow fluid; prepared 4 cytospins and cell block(A2) - cell block prepared using a collodion bag andfixed in formalin at 5:02 pm on 05/26/21Performed. [facility], Department of Pathology, [address] [place] [address], [facility], [facility] of [facility], [address] [place] [address], [facility], Department of [facility]ology, [address] [facility], [place] [address], GBUQWHB DEHYDROGENASE (LDH), BODY [id number] 10:45:00 Test Item Value Reference Range Interpretation Comments LACTATE DEHYDROGENASE FLUID (BEAKER) 123 U/L (test code = 634) Absence of reference range indicates that normals have not been defined.Assay performance has not been validated for this type of specimen.Rabble Furnace Tender ID - [id number], BODY [id number] 10:41:00 Test Item Value Reference Range Interpretation Comments PROTEIN FLUID (BEAKER) (test code = 5.4 g/dL 579) Absence of reference range indicates that normals have not been defined.Assay performance has not been validated for this type of specimen.Rabble Furnace Tender ID - [id number]-WQLEZXW [id number] 09:21:00 Test Item Value Reference Range Interpretation Comments POC-GLUCOSE METER 134 mg/dL 70-110 H : TESTED A T [facility] 6720 (BEAKER) (test code = [facility], 1538) 58011: Rabble Furnace Tender/Techni elsie ID = [id number] for JERRY MARCELINO LUCY BASIC METABOLIC [id number] 07:43:00 Test Item Value Reference Range Interpretation [...] S NOT APPLICABLE FOR DIALYSIS PATIEN TS. [employer]ble Furnace Tender ID - MAGEN [id number] 07:42:00 Test Item Value Reference Range Interpretation Comments MAGNESIUM (BEAKER) (test code = 2.0 mg/dL 1.6-2.6 627) Rabble Furnace Tender ID - MAGEN [id number] 07:42:00 Test Item Value Reference Range Interpretation Comments PHOSPHORUS (BEAKER) (test code = 4.4 mg/dL 2.3-4.7 604) Rabble Furnace Tender ID - MAGEN WCBC W/PLT COUNT & AUTO [id number] 06:55:00 Test Item Value Reference Range Interpretation [...] PERCENT (BEAKER) (test code = 2801) POCT-GLUCOSE [id number] 21:47:00 Test Item Value Reference Range Interpretation Comments POC-GLUCOSE METER 138 mg/dL 70-110 H : TESTED A T [facility] 6720 ([employer]) (test code = [facility], 153) 9[address]: Rabble Furnace Tender/Techni elsie ID = [id number] for La cy (pca2), Victori a PTH, [id number] 19:07:00 Test Item Value Reference Range Interpretation Comments PARATHYROID HORMONE INTACT 396.3 pg/mL 8.5-72.5 H ([facility]) (test code = 577) [employer]ble Furnace Tender ID - BSPOCT-GLUCOSE [id number] 17:30:00 Test Item Value Reference Range Interpretation Comments POC-GLUCOSE METER 71 mg/dL 70-110 : TESTED A T [facility] 6720 ([employer]) (test code = [facility] [employer] [facility], 153) [address]: Rabble Furnace Tender/Techni elsie ID = [id number] for Rosario ano, Edwin [id number] 17:28:00 Test Item Value Reference Range Interpretation Comments FERRITIN (AKER) (test code = 1901.90 ng/mL 5.00-275.00 H 361) Rabble Furnace Tender ID - BSPOCT-GLUCOSE [id number] 17:18:00 Test Item Value Reference Range Interpretation Comments POC-GLUCOSE METER 63 mg/dL 70-110 L : TESTED A T [facility] 6720 ([employer]) (test code = [facility] [employer] [facility], 1538) 75204: Rabble Furnace Tender/Techni elsie ID = [id number] for Edwin Mcneil IRON, TIBC, % SAT. (WITHOUT FERRITIN)2021-05-26 17:00:00 Test Item Value Reference Range Interpretation Comments IRON (BEAKER) (test code = 547) 44.0 ug/dL 40.0-160.0 TOTAL IRON BINDING CAPACITY 136 ug/dL 250-450 L (BEAKER) (test code = 769) IRON % SATURATION (2) (BEAKER) 32 % 20-55 (test code = 2590) Rabble Furnace Tender ID - BSHEPATITIS B SURFACE [id number] 14:17:00 Test Item Value Reference Range Interpretation Comments HEPATITIS B SURFACE ANTIGEN (2) Nonreactive Nonreactive (BEAKER) (test code = 2585) Specimen is considered negative for HBsAg.BODY FLUID CELL COUNT WITH [id number] 13:17:00 Test Item Value Reference Range Interpretation [...] (test code = The sy stem which 1694) generated this result transmit nova reference range [...] Cup (BEAKER) (test code = 2873) POCT-GLUCOSE [id number] 12:41:00 Test Item Value Reference Range Interpretation Comments POC-GLUCOSE METER 76 mg/dL 70-110 : TESTED A T [facility] 6720 (BEAKER) (test code = [facility] [place] [facility], 1538) [address]: Rabble Furnace Tender/Techni elsie ID = [id number] for Greg baetman (pca2)Aleksandra POCT-GLUCOSE [id number] 07:29:00 Test Item Value Reference Range Interpretation Comments POC-GLUCOSE METER 90 mg/dL 70-110 : TESTED A T [facility] 6720 (BEAKER) (test code = [facility] Melodie [facility], 1538) [address]: Rabble Furnace Tender/Techni elsie ID = [id number] for Ariel Perdue [id number] 05:33:00 Test Item Value Reference Range Interpretation Comments MAGNESIUM (BEAKER) (test code = 2.2 mg/dL 1.6-2.6 627) Rabble Furnace Tender ID - JORDAN [id number] 05:33:00 Test Item Value Reference Range Interpretation Comments PHOSPHORUS (BEAKER) (test code = 6.0 mg/dL 2.3-4.7 H 604) Rabble Furnace Tender ID - JORDAN MBASIC METABOLIC [id number] 05:33:00 Test Item Value Reference Range Interpretation [...] S NOT APPLICABLE FOR DIALYSIS PATIEN TS. Rabble Furnace Tender ID - JORDAN MCBC W/PLT COUNT & AUTO [id number] 05:27:00 Test Item Value Reference Range Interpretation [...] 0-1 PERCENT (BEAKER) (test code = 2801) SARS-COV2/RT-PCR ([facility])2021-05-26 03:02:00 Test Item Value Reference Range Interpretation Comments SARS-COV2/RT-PCR Negative Negative The SARS-Co V-2 target (test code = 2033188) nuclei c acids are not detected in [...] SARS-CoV-2/Flu/RSV by their healthcare provider. Results from [facility] Xpert Xpress SARS-CoV-2/Flu/RSV test should be correlated [...] of the Act.Fact Sheet for Healthcare Providers :https://www.Leg[employer]/Documents/Xpert%20Xpress%20SARS%20CoV-2/Fact%20Sheets/3 02-3902%99LGJY-ERX-8%20HEALTHCARE%20PROVIDERS%20FACT%20SHEET.pdfFact Sheet for Healthcare Patients:https://www.[employer] /Documents/Xpert%20Xpress%20SARS%20Cov-2/Fact%20Sheets/302-3801%20FUWQ-VUJ-8%20P ATIENT%20FACT%20SHEET.pdfRAD, CHEST, 1 VIEW, NON [id number] 22:32:00DR STRIBLINGReason for exam:->shortness of breathShould this be performed at the bedside?->Yes[facility]UM[facility]: [facility] : 1955 Sex: MFINAL REPORT [...] catheter has been removed. Signed: Angy Varner Verified Date/Time: 05/25/2021 22:32:46 Reading Location: [address] Consult Reading Room CT, [id number] 21:35:00DR STRIBLINGUnlisted Reason for Exam - Click Yes and Enter Reason Below->NoWill this procedure require oral contrast?->NoCHI [facility] : 1955 Sex: MFINAL [...] further evaluation with HIDA scan. Signed: Marya Arredondo MDReport Verified Date/Time: 05/25/2021 21:35:09 [id number] 19:39:00 Test Item Value Reference Range Interpretation Comments LIPASE (BEAKER) (test code = 749) 19 U/L 8-78 Rabble Furnace Tender ID - DBCOMPREHENSIVE METABOLIC [id number] 19:39:00 Test Item Value Reference Range Interpretation [...] S NOT APPLICABLE FOR DIALYSIS PATIEN TS. Rabble Furnace Tender ID - DBOperator ID - DBB-TYPE NATRIURETIC FACTOR (BNP)2021-05-25 19:34:00 Test Item Value Reference Range Interpretation Comments B-TYPE NATRIURETIC PEPTIDE 50924 pg/mL 0-100 H (BEAKER) (test code = 700) Rabble Furnace Tender ID - dbOperator ID - dbHIGH SENSITIVITY TROPONIN [id number] 19:13:00 Test Item Value Reference Range Interpretation Comments HIGH SENSITIVITY 54 pg/ml See_Comment H [Automated message] TROPONIN I (test code = The system which 6143781) generated this result transmitted ref erence range: <=35. Th e reference range was not used to int erpret this result as normal/abnormal . Rabble Furnace Tender ID - dbThe PRODUCT CONSULTANT STAT High Sensitivity Troponin-I results should be used in conjunctionwith other diagnostic information such as ECG, clinical observations and information, and patient symptoms to aid in the diagnosis of [place].PT/[id number] 19:08:00 Test Item Value Reference Range Interpretation [...] for patients with mechanical heart valves.HEPATIC FUNCTION [id number] 19:07:00 Test Item Value Reference Range Interpretation [...] (test code = 8 U/L 6-55 347) Rabble Furnace Tender ID - DBCBC W/PLT COUNT & AUTO [id number] 18:55:00 Test Item Value Reference Range Interpretation [...] 0-1 PERCENT (BEAKER) (test code = 2801) [id number] 16:39:00 Test Item Value Reference Range Interpretation Comments GLUBED (test code = 104 MG/DL 70-110 N Performe d by certified GLUBED) 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 at [facility] - XR FLUOROSCOPY 0-60 [id number] 15:03:00 [facility] : 1955 Sex: M FAX: Espinoza Santillan MD [phone] [place]: St: REG Name: TROY FORTE [facility] : 1955 Age/S: 65/M [address] [place] [address] Unit #: [id number] Loc: [place] [address] Phys: Espinoza Villagran MD Acct: [id number] Dis Date: Status[place] [facility] [place] #: [phone] Exam Date: 12/19/2020 1445 FAX #: [phone] Reason: LUE FISTULA MALFUNCTION EXAMS: CPT CODE: [id number] XR FLUOROSCOPY0-60 MIN 96195 Study: - XR FLUOROSCOPY 0-60 MIN 12/19/2020 2:00 PM Patient Name: TROY FORTE MR: [id number] DATE: 12/19/2020 2:00 PM : 1955; Age: 65 years y/o Male Ordering Physician: Espinoza Villagran MD Clinical Indication: LUE FISTULA MALFUNCTION Intraprocedural fluoroscopy wasprovided by the Department of Radiology. Any images obtained were interpreted by the surgeon intraoperatively. Fluoroscopy time: 18 seconds Reference Air Kerma: 1.3 mGy SL: [id number] at 1503 Reported and signed by: Ar Coffman D.O. CC: Espinoza Villagran MD Technologist: RT Naren(R) Trnscrd Date/Time/By: 12/19/2020 (7798) : By:[email or web address] Orig Print D/T: S: 12/19/2020 (4798) PAGE 1 Signed ReportBASIC METABOLIC PANEL 2020-12-19 [...] 8.8 mg/dL 8.0-10.5 N CA) CBC W/AUTO [id number] 10:45:00 Test Item Value Reference Range Interpretation [...] NO = MDIFF) - XR CHEST 1 [id number] 10:42:00 [facility] [place] : 1955 Sex: M FAX: Espinoza Santillan MD [phone] [place]: EMIL St: REG Name: TROY FORTE [facility] [place] : 1955 Age/S: 65/M [address] [place] [address] Unit #: [id number] Loc: [place] [address] Phys: Espinoza Villagran MD Acct: [id number] Dis Date: Status[place] [facility] [place] [facility] [place] #: [phone] Exam Date: 12/19/2020 103 FAX #: [phone] Reason: PRE PROCEDURE EXAMS: CPT CODE: [id number] XR CHEST 1 V 76978 Study: - XR CHEST 1 V 12/19/2020 9:13 AM Patient Name: TROY FORTE MR: [id number] : 1955; Age: 65 years y/o Male [...] congestion and small bilateral pleural effusions. SL: [id number] at 1042 Reported and signed by: Tr Ly M.D. CC: Espinoza Villagran MD Technologist: RT Navya(R) Trnscrd Date/Time/By: 12/19/2020 (142) : By: [email or web address] Orig Print D/T: S: 12/19/2020 (8651) PAGE 1 Signed ReportCBC W/AUTO [id number] 10:41:00 Test Item Value Reference Range Interpretation [...] code = MDIFF) COVID 19 Asymptomatic IH [id number] 10:40:00 Test Item Value Reference Range Interpretation [...] Interpretation Comments SCAN RESULT (test code = 5386304) ALBUMIN PERITONEAL [id number] 11:32:00 Test Item Value Reference Range Interpretation Comments ALBUMIN, PERITONEAL FLUID (BEAKER) 2.4 g/dL (test code = 8521611) This test was performed at [facility] [facility].Reference range is not defined and interpretation must be performed in the consideration of the pathophysiology of the analyte and the clinical context.POCT-GLUCOSE METER 2020-11-21 11:23:00 Test Item Value Reference Range Interpretation Comments POC-GLUCOSE METER 175 mg/dL 70-110 H : TESTED A T [facility] 6720 (BEAKER) (test code = [facility], 1538) [address]: Rabble Furnace Tender/Techni elsie ID = [id number] for IB RAHIM, [place] HEPATIC FUNCTION [id number] 10:08:00 Test Item Value Reference Range Interpretation [...] (test code = 7 U/L 6-55 347) Rabble Furnace Tender ID - EDASIPOCT-GLUCOSE [id number] 08:18:00 Test Item Value Reference Range Interpretation Comments POC-GLUCOSE METER 130 mg/dL 70-110 H : TESTED A T [facility] 6720 (BEAKER) (test code = [facility], 1538) [address]: Rabble Furnace Tender/Techni elsie ID = [id number] for IB RAHIM, [place] BASIC METABOLIC [id number] 07:17:00 Test Item Value Reference Range Interpretation [...] S NOT APPLICABLE FOR DIALYSIS PATIEN TS. Rabble Furnace Tender ID - [id number] 07:16:00 Test Item Value Reference Range Interpretation Comments MAGNESIUM (BEAKER) (test code = 2.0 mg/dL 1.6-2.6 627) Rabble Furnace Tender ID - ADMINCBC (HEMOGRAM ONLY)2020-11-21 06:55:00 Test [...] = 413) RAD, CHEST, 1 VIEW, NON [id number] 00:39:00Reason for exam:->SICD implantShould this be performed at the bedside?->Yes [facility] : 1955 Sex: MFINAL [...] emphysemain the left chest wall. Signed: Elidia Pateleport Verified Date/Time: 11/21/2020 00:39:32 E lectronically signed by: ELDIIA PATEL MD on 11/21/2020 12:39 AMPOCT- GLUCOSE [id number] 21:44:00 Test Item Value Reference Range Interpretation Comments POC-GLUCOSE METER 173 mg/dL 70-110 H : TESTED A T [facility] 6720 ([employer]RAD) (test code = [facility] [place], 1538) [address]: Rabble Furnace Tender/Techni elsie ID = [id number] for LI RA, WILMAN POCT-GLUCOSE [id number] 18:37:00 Test Item Value Reference Range Interpretation Comments POC-GLUCOSE METER 157 mg/dL 70-110 H : TESTED A T [facility] 6720 (BEAKER) (test code = [facility], 1538) [address]: Rabble Furnace Tender/Techni elsie ID = [id number] for RICARDO COOK POCT-GLUCOSE [id number] 17:03:00 Test Item Value Reference Range Interpretation Comments POC-GLUCOSE METER 151 mg/dL 70-110 H : TESTED A T [facility] 6720 (BEAKER) (test code = [facility] Melodie [facility], 1538) [address]: Rabble Furnace Tender/Techni elsie ID = [id number] for CORI NAVA BLOOD GAS, [id number] 14:46:00 Test Item Value Reference Range Interpretation [...] (test code = 1819) 100.0 SODIUM NA-STAT [id number] 14:46:00 Test Item Value Reference Range Interpretation Comments SODIUM (BEAKER) (test code = 381) 133 meq/L 136-145 L POTASSIUM-STAT [id number] 14:46:00 Test Item Value Reference Range Interpretation Comments POTASSIUM (BEAKER) (test code = 3.3 meq/L 3.6-5.5 L 379) GLUCOSE-STAT [id number] 14:46:00 Test Item Value Reference Range Interpretation Comments GLUCOSE RANDOM (BEAKER) (test code 143 mg/dL 70-110 H = 652) HGB/HCT (H&H) - STAT [id number] 14:46:00 Test Item Value Reference Range Interpretation Comments HEMOGLOBIN (BEAKER) (test code = 7.3 GM/DL 13.0-16.8 L 410) HEMATOCRIT (BEAKER) (test code = 21.0 % 40.0-50.0 L 411) BODY FLUID CULTURE + GRAM [id number] 12:24:00 Test Item Value Reference Range Interpretation Comments CULTURE (BEAKER) (test code No growth = 1095) GRAM STAIN RESULT (BEAKER) 1+ WBCs (test code = 1123) GRAM STAIN RESULT (BEAKER) No organisms seen (test code = 19988) POCT-GLUCOSE [id number] 09:22:00 Test Item Value Reference Range Interpretation Comments POC-GLUCOSE METER 156 mg/dL 70-110 H : Notified RN/MD: (BEAKER) (test code = TESTED AT [facility] [id number]) [facility], [id number]: [employer]/Techni elsie ID = [id number] for AN RICARDO DAUGHERTY PROTHROMBIN TIME/[id number] 04:26:00 Test Item Value Reference Range Interpretation [...] valves.Within 24 hours, if on CoumadinBASIC METABOLIC [id number] 04:13:00 Test Item Value Reference Range Interpretation Comments SODIUM (BEAKER) 133 meq/L 136-145 L (test code = 381) POTASSIUM (BEAKER) 4.6 meq/L 3.5-5.1 (test code = 379) CHLORIDE (BEAKER) 95 meq/L 98-107 L (test code = 382) CO2 (BEAKER) (test 23 meq/L code = 355) BLOOD UREA NITROGEN 55 [...] S NOT APPLICABLE FOR DIALYSIS PATIEN TS. Rabble Furnace Tender ID - PIROSS [id number] 04:03:00 Test Item Value Reference Range Interpretation Comments MAGNESIUM (BEAKER) (test code = 2.0 mg/dL 1.6-2.6 627) Rabble Furnace Tender ID - JEVON LCBC (HEMOGRAM ONLY)2020-11-20 03:55:00 [...] 0-0 (BEAKER) (test code = 413) POCT-GLUCOSE [id number] 21:13:00 Test Item Value Reference Range Interpretation Comments POC-GLUCOSE METER 222 mg/dL 70-110 H : [facility] (test code = [facility], 153) [address]: Rabble Furnace Tender/Techni elsie ID = [id number] for WILMAN BIRD RA POCT-GLUCOSE [id number] 17:48:00 Test Item Value Reference Range Interpretation Comments POC-GLUCOSE METER 205 mg/dL 70-110 H : Notified RN/MD: (CONRAD) (test code = TESTED AT [place] [address] 1538) [facility], [address]: Rabble Furnace Tender/Techni elsie ID = [id number] for RICARDO COOK POCT-GLUCOSE [id number] 12:22:00 Test Item Value Reference Range Interpretation Comments POC-GLUCOSE METER 196 mg/dL 70-110 H : Notified RN/MD: (CONRAD) (test code = TESTED AT [place] [address] 1538) [facility], [address]: Rabble Furnace Tender/Techni elsie ID = [id number] for RICARDO COOK POCT-GLUCOSE [id number] 08:52:00 Test Item Value Reference Range Interpretation Comments POC-GLUCOSE METER 166 mg/dL 70-110 H : [facility] (test code = [facility], 153) [address]: Rabble Furnace Tender/Techni elsie ID = [id number] for Ra cano, Junie POCT-GLUCOSE [id number] 08:52:00 Test Item Value Reference Range Interpretation Comments POC-GLUCOSE METER 176 mg/dL 70-110 H : [facility] ([facility]) (test code = [facility], 153) [address]: Rabble Furnace Tender/Techni elsie ID = [id number] for Ra mirez, Junie POCT-GLUCOSE [id number] 08:39:00 Test Item Value Reference Range Interpretation Comments POC-GLUCOSE METER 144 mg/dL 70-110 H : Notified RN/MD: (CONRAD) (test code = TESTED AT [place] [address] 1538) [facility], [address]: Rabble Furnace Tender/Techni elsie ID = [id number] for AN DERSON, RICARDO BASIC METABOLIC [id number] 07:50:00 Test Item Value Reference Range Interpretation [...] S NOT APPLICABLE FOR DIALYSIS PATIEN TS. Rabble Furnace Tender ID - [id number] 07:46:00 Test Item Value Reference Range Interpretation Comments MAGNESIUM (BEAKER) (test code = 2.0 mg/dL 1.6-2.6 627) Rabble Furnace Tender ID - BENYHEPATIC FUNCTION [id number] 07:46:00 Test Item Value Reference Range Interpretation [...] (test code = 9 U/L 6-55 347) [employer]ble Furnace Tender ID - BENYB-TYPE NATRIURETIC FACTOR (BNP)2020-11-19 07:44:00 Test Item Value Reference Range Interpretation Comments B-TYPE NATRIURETIC PEPTIDE 4442 pg/mL 0-100 H (BEAKER) (test code = 700) Rabble Furnace Tender ID - EMERSONCBC (HEMOGRAM ONLY)2020-11-19 07:14:00 Test Item Value Reference [...] 0-0 (BEAKER) (test code = 413) POCT-GLUCOSE [id number] 23:22:00 Test Item Value Reference Range Interpretation Comments POC-GLUCOSE METER 132 mg/dL 70-110 H : TESTED A T [facility] 6720 (BEAKER) (test code = [facility], 1538) [address]: Rabble Furnace Tender/Techni elsie ID = [id number] for LAURA OR ABISAI BROWN POCT-GLUCOSE [id number] 17:45:00 Test Item Value Reference Range Interpretation Comments POC-GLUCOSE METER 259 mg/dL 70-110 H : TESTED A T [facility] 6720 (BEAKER) (test code = [place], 1538) [address]: Rabble Furnace Tender/Techni elsie ID = [id number] for Junie Gutiérrez T4, [id number] 09:08:00 Test Item Value Reference Range Interpretation Comments FREE T4 (BEAKER) (test code = 655) 0.62 ng/dL 0.70-1.48 L Rabble Furnace Tender ID - JORDAN MTSH/FREE T4 IF [id number] 08:03:00 Test Item Value Reference Range Interpretation Comments THYROID STIMULATING HORMONE 7.177 uIU/mL 0.350-4.940 H (BEAKER) (test code = 772) Rabble Furnace Tender ID - JORDAN MBASIC METABOLIC [id number] 07:42:00 Test Item Value Reference Range Interpretation [...] S NOT APPLICABLE FOR DIALYSIS PATIEN TS. Rabble Furnace Tender ID - JORDAN [id number] 07:41:00 Test Item Value Reference Range Interpretation Comments MAGNESIUM (BEAKER) (test code = 1.9 mg/dL 1.6-2.6 627) Rabble Furnace Tender ID - JORDAN MHEPATIC FUNCTION [id number] 07:41:00 Test Item Value Reference Range Interpretation [...] (test code = 11 U/L 6-55 347) Rabble Furnace Tender ID - JORDAN [facility] (HEMOGRAM ONLY)2020-11-18 06:18:00 Test Item Value Reference [...] 0-0 (BEAKER) (test code = 413) POCT-GLUCOSE [id number] 00:01:00 Test Item Value Reference Range Interpretation Comments POC-GLUCOSE METER 164 mg/dL 70-110 H : TESTED Lashell Ureña [facility] 6720 (BEAKER) (test code = [place], 1538) [address]: Rabble Furnace Tender/Techni elsie ID = [id number] for NO OR ABISAI BROWN POCT-GLUCOSE [id number] 17:28:00 Test Item Value Reference Range Interpretation Comments POC-GLUCOSE METER 247 mg/dL 70-110 H : TESTED A T [facility] 6720 (BEAKER) (test code = [facility], 1538) [address]: Rabble Furnace Tender/Techni elsie ID = [id number] for EDE GASPAR [id number] 15:35:00Medical Cytology Report Case: [id number] Authorizing Provider: Arben Cantor MD Collected: 11/16/2020 11:50 AM Ordering Location: [address] Received: 11/17/2020 09:32 AM Service Pathologist: Silvestre Le MD Specimen: Perit cabezas Fluid PERITONEAL FLUID (CYTOPSPINS): - NEGATIVE FOR MALIGNANCY Signing Pathologist Direct Phone Line: [phone] signed by Silvestre Le MD on 11/17/2020 at 3:35 [id number], CHFPERITONEAL [id number] mls madina fluid; 4 cytospinsPerformed. [facility], Department of Pathology, [address] [place] [address], [facility], [facility] of [facility], [address] [place] [address], [facility], Department of [facility], [address] [place] [address], LGDD-NUCLEAR ANTIBODY (SANTANA)2020-11-17 15:14:00 Test Item Value Reference Range Interpretation Comments ANTI-NUCLEAR ANTIBODY (SANTANA) (BEAKER) Negative Negative (test code = 418) Test performed by IFA method.Test performed by IFA method.PROTEIN, TOTAL, PERITONEAL [id number] 15:08:00 Test Item Value Reference Range Interpretation Comments PROTEIN, TOTAL, PERITONEAL FLUID 5.2 g/dL (BEAKER) (test code = 0855217) POCT-GLUCOSE [id number] 12:05:00 Test Item Value Reference Range Interpretation Comments POC-GLUCOSE METER 187 mg/dL 70-110 H : TESTED A T [facility] 6720 (BEAKER) (test code = [facility] [place], 1538) [address]: Rabble Furnace Tender/Techni elsie ID = [id number] for EDE GASPAR POCT-GLUCOSE [id number] 08:00:00 Test Item Value Reference Range Interpretation Comments POC-GLUCOSE METER 202 mg/dL 70-110 H : TESTED A T [facility] 6720 (BEAKER) (test code = [facility], 1538) [address]: Rabble Furnace Tender/Techni elsie ID = [id number] for EDE GASPAR BASIC METABOLIC [id number] 06:49:00 Test Item Value Reference Range Interpretation [...] S NOT APPLICABLE FOR DIALYSIS PATIEN TS. Rabble Furnace Tender ID - [id number] 06:46:00 Test Item Value Reference Range Interpretation Comments MAGNESIUM (BEAKER) (test code = 1.9 mg/dL 1.6-2.6 627) Rabble Furnace Tender ID - [id number] 06:46:00 Test Item Value Reference Range Interpretation Comments PHOSPHORUS (BEAKER) (test code = 6.9 mg/dL 2.3-4.7 H 604) Rabble Furnace Tender ID - EDASIHEPATIC FUNCTION [id number] 06:46:00 Test Item Value Reference Range Interpretation [...] (test code = 10 U/L 6-55 347) Rabble Furnace Tender ID - EDASIPTH, [id number] 06:40:00 Test Item Value Reference Range Interpretation Comments PARATHYROID HORMONE INTACT 540.2 pg/mL 8.5-72.5 H (BEAKER) (test code = 577) Rabble Furnace Tender ID - DBCBC W/PLT COUNT & AUTO [id number] 06:23:00 Test Item Value Reference Range Interpretation [...] PERCENT (BEAKER) (test code = 2801) POCT-GLUCOSE [id number] 22:19:00 Test Item Value Reference Range Interpretation Comments POC-GLUCOSE METER 233 mg/dL 70-110 H : TESTED A T [facility] 6720 ([facility]) (test code = [facility], 153) [address]: Rabble Furnace Tender/Techni elsie ID = [id number] for Emmanuel Moreno POCT-GLUCOSE [id number] 17:34:00 Test Item Value Reference Range Interpretation Comments POC-GLUCOSE METER 179 mg/dL 70-110 H : Notified RN/MD: ([facility]) (test code = TESTED AT [facility] 6720 1538) [facility], [address]: Rabble Furnace Tender/Techni elsie ID = [id number] for RICARDO COOK [id number] 15:07:00 Test Item Value Reference Range Interpretation Comments FERRITIN ([facility]) (test code = 3231.34 ng/mL 5.00-275.00 H 361) Rabble Furnace Tender ID - EDASIOperator ID - EDASIBODY FLUID [...] EDTA Tube (test code = 2873) POCT-GLUCOSE [id number] 13:16:00 Test Item Value Reference Range Interpretation Comments POC-GLUCOSE METER 206 mg/dL 70-110 H : Notified RN/MD: (BEAKER) (test code = TESTED AT [facility] 4999 9126) [facility], [address]: Rabble Furnace Tender/Techni elsie ID = [id number] for AN RICARDO DAUGHERTY U/S, [id number] 12:46:00Last Plavix 1/7Labs to be ordered:->Body Fluid Culture (w/Gram Stain, C\T\S)Needs total protein, and fluid albumin for SAAG calculationLabs to be ordered:->CytologyLabs to be ordered:->Cell Cou ntLabs to be ordered:->Other (please add comment)Reason for exam:->new onset ascitesANDERSON SANATORIUMName: TROY FORTE : 1955 Sex: MFINAL REPORT PROCEDURE: Ultrasound-guided paracentesis. INDICATION: 65-year-old man with ascites. DESCRIPTION: After obtaining informed written consent, ultrasound scan of theabdomen identified ascites in the right lower quadrant. The overlying skin was prepped and draped inthe usual, sterile fashion and local 2% lidocaine anesthesia was administered. A 5 Cambodian catheter was advanced into the peritoneal cavity and 5600 cc of serous fluid was removed. The catheter was removed without immediate complication. Samples were sent for analysis. IMPRESSION:Uncomplicated ultrasound-guided paracentesis with 5600 cc fluid removed. Signed: Charles Floyd Verified Date/Time: 11/16/2020 12:46:29 Reading Location: [address] Body Reading Room [id number] 2020-11-16 11:46:00 Test Item Value Reference Range Interpretation Comments ALPHA-1 ANTITRYPSIN (BEAKER) 235.00 mg/dL 90.00-200.00 H (test code = 502) Rabble Furnace Tender ID - EDASIOperator ID - AAHAMIDSARS-COV2/RT-PCR ([facility]) 2020-11-16 11:16:00 Test Item Value Reference Range Interpretation Comments SARS-COV2/RT-PCR (test Negative Not Detected, Negative, code = 7479993) See external report for linked test SARS-COV-[address] [facility] KARINA (test code = 3864498) Negative result for this test determines that [...] 564(g) of the Act.Fact Sheet for Healthcare Providers:https://www.Risk Ident.Bedloo/sites/default/files/product/documents/Fact_Shee w_RU_Hhbxzasqq_Knpl_KPDR-VqS-4.pdfFact Sheet for Healthcare Patients:https://www.Risk Ident.[employer]loo/sites/default/files/product/ documents/Llsf_Mytbj_Mkzgutzd_Snab_IBVX-ChM-4.pdfPerforming Laboratory:[facility], [place] [address]AEQBOQXTJ A ANTIBODY, [id number] 11:06:00 Test Item Value Reference Range Interpretation Comments HEPATITIS A IGG ANTIBODY (BEAKER) Reactive Nonreactive A (test code = 2797) Rabble Furnace Tender ID - AAHAMIDALPHA FETOPROTEIN (AFP), TUMOR [id number] 10:52:00 Test Item Value Reference Range Interpretation Comments ALPHA-FETOPROTEIN (BEAKER) (test code < ng/mL <10.0 = 1094) Rabble Furnace Tender ID - AAHAMIDHEPATITIS A ANTIBODY, [id number] 09:52:00 Test Item Value Reference Range Interpretation Comments HEPATITIS A IGM ANTIBODY (BEAKER) Nonreactive Nonreactive (test code = 498) Rabble Furnace Tender ID - AAHAMIDHEPATITIS B CORE ANTIBODY, [id number] 09:52:00 Test Item Value Reference Range Interpretation Comments HEPATITIS B CORE TOTAL ANTIBODY Nonreactive Nonreactive (CONRAD) (test code = 497) Rabble Furnace Tender ID - AAHAMIDHEPATITIS B SURFACE [id number] 09:52:00 Test Item Value Reference Range Interpretation Comments HEPATITIS B SURFACE ANTIBODY 256.5 mIU/mL <8.0 H (CONRAD) (test code = 647) Rabble Furnace Tender ID - AAHAMIDPOCT-GLUCOSE [id number] 08:18:00 Test Item Value Reference Range Interpretation Comments POC-GLUCOSE METER 190 mg/dL 70-110 H : Notified RN/MD: (CONRAD) (test code = TESTED AT [facility] 6720 1538) [facility], [address]: Rabble Furnace Tender/Techni elsie ID = [id number] for AN RICARDO DAUGHERTY U/S, ABDOMINAL, [id number] 06:31:00Evaluate spleen size and hepatic vesselsAbdomen limited area? Add comment if clarification is needed.- >LiverReason for exam:->New onset ascites - CT with nodular liver contour - please examine hepatic vasculature to r/o PVT [facility]UMName: TR[facility] FORTE : 1955 Sex: MFINAL REPORT [...] venous thrombosis.Right pleural effusion. Signed: Elidia Patel [facility] Verified Date/Time: 11/16/2020 06:31:37 U/S, DUPLEX, [id number] 06:31:00Reason for exam:->hepatic vasculature pvt [facility]UMName: TROY FORTE : 1955 Sex: MFINAL REPORT [...] portal venous thrombosis.Right pleural effusion. Signed: Elidia [place] Verified Date/Time: 11/16/2020 06:31:37 POCT-GLUCOSE [id number] 22:44:00 Test Item Value Reference Range Interpretation Comments POC-GLUCOSE METER 191 mg/dL 70-110 H : TESTED A T [facility] 6720 (BEAKER) (test code = [facility], 1538) [address]: Rabble Furnace Tender/Techni elsie ID = [id number] for YUKI CLEMENT POCT-GLUCOSE [id number] 22:26:00 Test Item Value Reference Range Interpretation Comments POC-GLUCOSE METER 211 mg/dL 70-110 H : TESTED A T [facility] 6720 (BEAKER) (test code = [facility], 1538) [address]: Rabble Furnace Tender/Techni elsie ID = [id number] for JAMES SPRING POCT-GLUCOSE [id number] 19:18:00 Test Item Value Reference Range Interpretation Comments POC-GLUCOSE METER 122 mg/dL 70-110 H : TESTED A T [facility] 6720 (BEAKER) (test code = [facility], 1538) [address]: Rabble Furnace Tender/Techni elsie ID = [id number] for OG MARK, SANDHYA POCT-GLUCOSE [id number] 12:37:00 Test Item Value Reference Range Interpretation Comments POC-GLUCOSE METER 173 mg/dL 70-110 H : TESTED A T [facility] 6720 (BEAKER) (test code = [facility], 1538) [address]: Rabble Furnace Tender/Techni elsie ID = [id number] for RICARDO COOK HEPATITIS B SURFACE [id number] 11:33:00 Test Item Value Reference Range Interpretation Comments HEPATITIS B SURFACE ANTIGEN (2) Nonreactive Nonreactive ([facility]) (test code = 2585) Specimen is considered negative for HBsAg.HEPATITIS B SURFACE [id number] 11:33:00 Test Item Value Reference Range Interpretation Comments HEPATITIS B SURFACE ANTIBODY 248.1 mIU/mL <8.0 H ([facility]) (test code = 647) Rabble Furnace Tender ID - DBHEPATITIS B CORE ANTIBODY, [id number] 11:33:00 Test Item Value Reference Range Interpretation Comments HEPATITIS B CORE TOTAL ANTIBODY Nonreactive Nonreactive (BEAKER) (test code = 497) Rabble Furnace Tender ID - DBHEMOGLOBIN [id number] 11:28:00 Test Item Value Reference Range Interpretation [...] 24 % 20-55 (test code = 2590) Rabble Furnace Tender ID - DBPOCT-GLUCOSE [id number] 08:18:00 Test Item Value Reference Range Interpretation Comments POC-GLUCOSE METER 204 mg/dL 70-110 H : Notified RN/MD: (BEAKER) (test code = TESTED AT [facility] 8049 7799) [facility], [address]: Rabble Furnace Tender/Techni elsie ID = [id number] for AN RICARDO DAUGHERTY BASIC METABOLIC [id number] 07:13:00 Test Item Value Reference Range Interpretation [...] S NOT APPLICABLE FOR DIALYSIS PATIEN TS. Rabble Furnace Tender ID - [id number] 07:11:00 Test Item Value Reference Range Interpretation Comments MAGNESIUM (BEAKER) (test code = 2.1 mg/dL 1.6-2.6 627) Rabble Furnace Tender ID - DBHEPATIC FUNCTION [id number] 07:11:00 Test Item Value Reference Range Interpretation [...] (test code = 15 U/L 6-55 347) Rabble Furnace Tender ID - DBHEPATITIS C [id number] 06:59:00 Test Item Value Reference Range Interpretation Comments HEPATITIS C ANTIBODY (BEAKER) Nonreactive Nonreactive (test code = 367) Rabble Furnace Tender ID - DBCBC W/PLT COUNT & AUTO [id number] 06:57:00 Test Item Value Reference Range Interpretation [...] PERCENT (BEAKER) (test code = 2801) PROTHROMBIN [id number] 05:55:00 Test Item Value Reference Range Interpretation [...] mechanical heart valves.RAD, CHEST, 1 VIEW, NON [id number] 01:26:00Reason for exam:->Weight loss, new ascites, volume overloadShould this be performed at the bedside?->Yes [facility] : 1955 Sex: MFINAL [...] 70-110 H Performe d by certified GLUBED) 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 at [facility] BASIC METABOLIC [id number] 13:42:00 Test Item Value Reference Range Interpretation [...] 8.2 mg/dL 8.0-10.5 N CA) CBC W/AUTO [id number] 13:28:00 Test Item Value Reference Range Interpretation [...] DIFF REQUIRED (test code NO = MDIFF) [id number] 11:56:00 Test Item Value Reference Range Interpretation Comments GLUBED (test code = 132 MG/DL 70-110 H Performe d by certified GLUBED) 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 at [facility] Novel Coronavirus 2019 [id number] 20:44:00 Test Item Value Reference Range Interpretation Comments Novel Coronavirus 2019 Inhouse (test Negative Negative code = COVNONPUI) - XR CHEST 2 [id number] 10:48:00 FAX: Espinoza Santillan MD [phone] [place]: St: PRE Name: TROY FORTE [facility] : 1955 Age/S: 64/M [address] [place] [address] Blvd Unit#: [id number] Loc: [place] [address] Phys: Espinoza Villagran MD Acct: [id number] Dis Date: Status: PRE SD PHONE #: [phone] Exam Date: 06/18/2020 0958 FAX #: [phone] Reason: PREOP- ESRD EXAMS: CPT CODE: [id number] XR CHEST 2 V 27701 CLINICAL HISTORY: PREOP- ESRD COMPARISON: March 22, [...] M.D. CC: Espinoza Villagran MD Technologist: RT Paolo(Melodie) Trnscrd Date/Time/By: 06/18/2020 (5034) : By: MansiYOGanesh Orig Print D/T: S: 06/18/2020 (2818) PAGE 1 Signed ReportBASIC METABOLIC [id number] 09:12:00 Test Item Value Reference Range Interpretation [...] = 8.0 mg/dL 8.0-10.5 N CA) PROTHROMBIN [id number] 09:06:00 Test Item Value Reference Range Interpretation [...] o prevent recurre nt infarct). THROMBOPLASTIN TIME [id number] 09:06:00 Test Item Value Reference Range Interpretation Comments THROMBOPLASTIN TIME PARTIAL (test Seconds 25.0-39.5 code = PTT) PROTHROMBIN [id number] 09:06:00 Test Item Value Reference Range Interpretation [...] o prevent recurre nt infarct). THROMBOPLASTIN TIME [id number] 09:06:00 Test Item Value Reference Range Interpretation Comments THROMBOPLASTIN TIME 37.2 Seconds 25.0-39.5 N Ther apeutic PARTIAL (test code = Range: 50.4 - 88.3 PTT) Seconds Effective 02/20/2019 CBC W/AUTO [id number] 08:58:00 Test Item Value Reference Range Interpretation [...] REQUIRED (test code NO = MDIFF) URINE [id number] 14:16:00 Test Item Value Reference Range Interpretation Comments CULTURE ([facility]) (test ESCHERICHIA COLI A 4 0-49,000 col/mL [...] S Sulfamethoxazole (test code = 47) CULTURE ([facility]) (test A 80-89 ,000 col/mL code = 1095) Ekaterina albican s POCT-GLUCOSE [id number] 17:07:00 Test Item Value Reference Range Interpretation Comments POC-GLUCOSE METER 168 mg/dL 70-[address] [facility] 6720 ([facility]) (test code = [facility] [place] 1538) [address] POCT-GLUCOSE [id number] 13:49:00 Test Item Value Reference Range Interpretation Comments POC-GLUCOSE METER 172 mg/dL 70-[address] [facility] 6720 (BEAKER) (test code = [place] 1538) [address] BASIC METABOLIC [id number] 09:18:00 Test Item Value Reference Range Interpretation [...] H (BEAKER) (test code = 413) POCT-GLUCOSE [id number] 21:43:00 Test Item Value Reference Range Interpretation Comments POC-GLUCOSE METER 175 mg/dL 70-[address] [facility] 6720 (BEAKER) (test code = [facility] [place] 1538) [address] POCT-GLUCOSE [id number] 12:42:00 Test Item Value Reference Range Interpretation Comments POC-GLUCOSE METER 113 mg/dL 70-[address] [facility] 6720 [facility] (test code = [place] Melod[place] [facility] 1538) [address] BASIC METABOLIC [id number] 08:22:00 Test Item Value Reference Range Interpretation [...] 0-0 (BEAKER) (test code = 413) POCT-GLUCOSE [id number] 21:40:00 Test Item Value Reference Range Interpretation Comments POC-GLUCOSE METER 159 mg/dL 70-110 H TESTED AT [place] [address] ([facility]) (test code = [facility] 1538) [address] POCT-GLUCOSE [id number] 17:24:00 Test Item Value Reference Range Interpretation Comments POC-GLUCOSE METER 203 mg/dL 70-110 H TESTED AT [place] [address] ([facility]) (test code = [facility] 1538) [address] POCT-GLUCOSE [id number] 13:17:00 Test Item Value Reference Range Interpretation Comments POC-GLUCOSE METER 201 mg/dL 70-110 H TESTED AT [place] [address] ([facility]) (test code = [facility] 1538) [address] POCT-GLUCOSE [id number] 08:11:00 Test Item Value Reference Range Interpretation Comments POC-GLUCOSE METER 199 mg/dL 70-110 H TESTED AT [place] [address] (BEAKER) (test code = [place] 1538) [address] BASIC METABOLIC [id number] 07:40:00 Test Item Value Reference Range Interpretation [...] code = 756) MEAN PLATELET VOLUME (AKER) 10.1 fL 9.4-12.4 (test code = 754) NUCLEATED RED BLOOD CELLS 0 /100 WBC 0-0 ([facility]) (test code = 413) POCT-GLUCOSE [id number] 23:55:00 Test Item Value Reference Range Interpretation Comments POC-GLUCOSE METER 198 mg/dL 70-110 H TESTED AT [place] [address] ([facility]) (test code = CIERA Sewell [facility] 1538) [id number] POCT-GLUCOSE [id number] 22:53:00 Test Item Value Reference Range Interpretation Comments POC-GLUCOSE METER 205 mg/dL 70-110 H TESTED AT [place] [address] ([facility]) (test code = [facility] Melodie [facility] 1538) [id number] POCT-GLUCOSE [id number] 18:28:00 Test Item Value Reference Range Interpretation Comments POC-GLUCOSE METER 252 mg/dL 70-110 H TESTED AT [place] [address] ([facility]) (test code = [facility] Melodie [facility] 1538) [id number] POCT-GLUCOSE [id number] 13:01:00 Test Item Value Reference Range Interpretation Comments POC-GLUCOSE METER 118 mg/dL 70-110 H TESTED AT [place] [address] ([facility] [facility] [place] (test code = [facility] Melodie [facility] 1538) [address] BASIC METABOLIC [id number] 07:03:00 Test Item Value Reference Range Interpretation [...] NOT APPLICABLE FOR DIALYSIS PATIEN TS. POCT-GLUCOSE [id number] 21:53:00 Test Item Value Reference Range Interpretation Comments POC-GLUCOSE METER 189 mg/dL 70-110 H TESTED AT [place] [address] ([facility]) (test code = [facility] 1538) 59966 POCT-GLUCOSE [id number] 18:21:00 Test Item Value Reference Range Interpretation Comments POC-GLUCOSE METER 207 mg/dL 70-110 H TESTED AT [place] [address] ([facility]) (test code = [facility] 1538) 32758 POCT-GLUCOSE [id number] 12:36:00 Test Item Value Reference Range Interpretation Comments POC-GLUCOSE METER 95 mg/dL 70-110 TESTED AT [place] [address] ([facility]) (test code = [facility] [address] 1538) BASIC METABOLIC [id number] 09:00:00 Test Item Value Reference Range Interpretation [...] BLOOD CELLS 1 /100 WBC 0-0 H (AKER) (test code = 413) POCT-GLUCOSE [id number] 21:13:00 Test Item Value Reference Range Interpretation Comments POC-GLUCOSE METER 125 mg/dL 70-110 H TESTED AT [place] [address] ([facility]) (test code = CIER[facility] Sewell [facility] 1538) 38975 POCT-GLUCOSE [id number] 13:58:00 Test Item Value Reference Range Interpretation Comments POC-GLUCOSE METER 150 mg/dL 70-110 H TESTED AT [place] [address] ([facility]) (test code = [facility] Sewell [facility] 1538) 47354 POCT-GLUCOSE [id number] 09:25:00 Test Item Value Reference Range Interpretation Comments POC-GLUCOSE METER 67 mg/dL 70-110 L Notified R Lola BLOUNT/TESTED AT ([facility]) (test code = [place] [address] [facility] 7703 0 POCT-GLUCOSE [id number] 09:25:00 Test Item Value Reference Range Interpretation Comments POC-GLUCOSE METER 65 mg/dL 70-110 L Notified R Lola BLOUNT/TESTED AT (BEAKER) (test code = [facility] [address] 1538) [place] [address] BASIC METABOLIC [id number] 07:54:00 Test Item Value Reference Range Interpretation [...] 0-0 (AKER) (test code = 413) POCT-GLUCOSE [id number] 21:31:00 Test Item Value Reference Range Interpretation Comments POC-GLUCOSE METER 119 mg/dL 70-110 H TESTED AT [place] [address] ([facility]) (test code = [facility] 1538) 45658 POCT-GLUCOSE [id number] 17:15:00 Test Item Value Reference Range Interpretation Comments POC-GLUCOSE METER 117 mg/dL 70-110 H TESTED AT [place] [address] ([facility]) (test code = [facility] 1538) 37051 POCT-GLUCOSE [id number] 12:55:00 Test Item Value Reference Range Interpretation Comments POC-GLUCOSE METER 76 mg/dL 70-110 TESTED AT [place] [address] ([facility]) (test code = [facility] 94[address] 1538) BASIC METABOLIC [id number] 08:15:00 Test Item Value Reference Range Interpretation [...] NOT APPLICABLE FOR DIALYSIS PATIEN TS. POCT-GLUCOSE [id number] 08:11:00 Test Item Value Reference Range Interpretation Comments POC-GLUCOSE METER 101 mg/dL 70-110 TESTED AT [place] [address] ([facility]) (test code = [facility] Sewell [place] 1538) [address] CBC (HEMOGRAM ONLY)2019-06-09 06:58:00 Test Item Value [...] 0-0 (BEAKER) (test code = 413) POCT-GLUCOSE [id number] 20:40:00 Test Item Value Reference Range Interpretation Comments POC-GLUCOSE METER 116 mg/dL 70-110 H TESTED AT [place] [address] ([facility]) (test code = [facility] 1538) 11643 POCT-GLUCOSE [id number] 17:32:00 Test Item Value Reference Range Interpretation Comments POC-GLUCOSE METER 122 mg/dL 70-110 H TESTED AT [place] [address] ([facility]) (test code = [facility] 1538) 03699 POCT-GLUCOSE [id number] 17:14:00 Test Item Value Reference Range Interpretation Comments POC-GLUCOSE METER 112 mg/dL 70-[address] [facility] 6720 [facility] (test code = [facility]ER[facility] Sewell [facility] 1538) 51990 POCT-GLUCOSE [id number] 16:56:00 Test Item Value Reference Range Interpretation Comments POC-GLUCOSE METER 219 mg/dL 70-[address] [facility] 67 ([facility] (test code = [facility] Melodie [facility] 1538) 11227 POCT-GLUCOSE [id number] 09:50:00 Test Item Value Reference Range Interpretation Comments POC-GLUCOSE METER 117 mg/dL 70-110 H TESTED AT [place] [address] ([facility]) (test code = [facility] 1538) 25105 BASIC METABOLIC [id number] 07:14:00 Test Item Value Reference Range Interpretation [...] 0-0 (BEAKER) (test code = 413) POCT-GLUCOSE [id number] 21:59:00 Test Item Value Reference Range Interpretation Comments POC-GLUCOSE METER 78 mg/dL 70-110 TESTED AT [place] [address] ([facility]) (test [facility] = [facility] [address] 1538) POCT-GLUCOSE [id number] 17:57:00 Test Item Value Reference Range Interpretation Comments POC-GLUCOSE METER 113 mg/dL 70-110 H TESTED AT [place] [address] ([facility]) (test code = [facility] 1538) 86883 POCT-GLUCOSE [id number] 14:30:00 Test Item Value Reference Range Interpretation Comments POC-GLUCOSE METER 227 mg/dL 70-110 H TESTED AT [place] [address] ([facility]) (test code = [facility] 1538) 95[address] BASIC METABOLIC [id number] 08:20:00 Test Item Value Reference Range Interpretation [...] NOT APPLICABLE FOR DIALYSIS PATIEN TS. POCT-GLUCOSE [id number] 08:01:00 Test Item Value Reference Range Interpretation Comments POC-GLUCOSE METER 139 mg/dL 70-[address] [facility] 6720 ([facility]) (test code = [place] 1538) [address] CBC (HEMOGRAM ONLY)2019-06-07 07:07:00 Test Item Value [...] 0-0 (BEAKER) (test code = 413) POCT-GLUCOSE [id number] 22:52:00 Test Item Value Reference Range Interpretation Comments POC-GLUCOSE METER 271 mg/dL 70-110 H TESTED AT [place] [address] [facility] (test code = [facility] Sewell [place] 1538) [address] POCT-GLUCOSE [id number] 17:23:00 Test Item Value Reference Range Interpretation Comments POC-GLUCOSE METER 273 mg/dL 70-110 H TESTED AT [place] [address] ([facility]) (test code = [facility] Sew[place] 1538) 44[address] POCT-GLUCOSE [id number] 12:33:00 Test Item Value Reference Range Interpretation Comments POC-GLUCOSE METER 107 mg/dL 70-110 TESTED AT [place] [address] ([facility]) (test code = [facility]ER[facility] Sewell [facility] 1538) 45184 BASIC METABOLIC [id number] 08:59:00 Test Item Value Reference Range Interpretation [...] code = 412) PLATELET COUNT (AKER) (test 330 K/CU MM 150-450 code = 756) MEAN PLATELET VOLUME (BEAKER) 10.1 fL 9.4-12.4 (test code = 754) NUCLEATED RED BLOOD CELLS 0 /100 WBC 0-0 (AKER) (test code = 413) POCT-GLUCOSE [id number] 21:40:00 Test Item Value Reference Range Interpretation Comments POC-GLUCOSE METER 137 mg/dL 70-110 H TESTED AT [place] [address] ([facility]) (test code = [facility] 1538) 54732 POCT-GLUCOSE [id number] 18:27:00 Test Item Value Reference Range Interpretation Comments POC-GLUCOSE METER 219 mg/dL 70-110 H TESTED AT [place] [address] ([facility]) (test code = [facility] 1538) 38863 POCT-GLUCOSE [id number] 13:10:00 Test Item Value Reference Range Interpretation Comments POC-GLUCOSE METER 168 mg/dL 70-110 H TESTED AT [place] [address] ([facility]) (test code = [facility] 1538) 70348 POCT-GLUCOSE [id number] 10:22:00 Test Item Value Reference Range Interpretation Comments POC-GLUCOSE METER 161 mg/dL 70-110 H TESTED AT [place] [address] ([facility]) (test code = [facility] 1538) 56043 BASIC METABOLIC [id number] 04:41:00 Test Item Value Reference Range Interpretation [...] S NOT APPLICABLE FOR DIALYSIS PATIEN TS. [id number] 04:40:00 Test Item Value Reference Range Interpretation [...] 0-0 (BEAKER) (test code = 413) POCT-GLUCOSE [id number] 21:42:00 Test Item Value Reference Range Interpretation Comments POC-GLUCOSE METER 176 mg/dL 70-110 H TESTED AT [place] [address] ([facility] (test code = [facility] 1538) 31835 POCT-GLUCOSE [id number] 14:38:00 Test Item Value Reference Range Interpretation Comments POC-GLUCOSE METER 179 mg/dL 70-110 H TESTED AT [place] [address] ([facility] (test code = [facility] 1538) 04648 POCT-GLUCOSE [id number] 09:07:00 Test Item Value Reference Range Interpretation Comments POC-GLUCOSE METER 155 mg/dL 70-110 H TESTED AT [place] [address] ([facility] (test code = [facility] 1538) 923[address] BASIC METABOLIC [id number] 07:49:00 Test Item Value Reference Range Interpretation [...] S NOT APPLICABLE FOR DIALYSIS PATIEN TS. [id number] 07:44:00 Test Item Value Reference Range Interpretation [...] 0-0 (BEAKER) (test code = 413) POCT-GLUCOSE [id number] 22:34:00 Test Item Value Reference Range Interpretation Comments POC-GLUCOSE METER 246 mg/dL 70-[address] [facility] 6720 ([facility]) (test code = [place] 1538) 14146 POCT-GLUCOSE [id number] 18:15:00 Test Item Value Reference Range Interpretation Comments POC-GLUCOSE METER 201 mg/dL 70-[address] [facility] 6720 ([facility]) (test code = [place] 1538) 36467 POCT-GLUCOSE [id number] 13:12:00 Test Item Value Reference Range Interpretation Comments POC-GLUCOSE METER 211 mg/dL 70-[address] [facility] 6720 (BEAKER) (test code = [facility]ER[facility] Sew[place] 1538) 43303 POCT-GLUCOSE [id number] 08:17:00 Test Item Value Reference Range Interpretation Comments POC-GLUCOSE METER 204 mg/dL 70-[address] [facility] 6720 (BEAKER) (test code = [facility] Sewell [facility] 1538) 86739 BASIC METABOLIC [id number] 08:05:00 Test Item Value Reference Range Interpretation [...] S NOT APPLICABLE FOR DIALYSIS PATIEN TS. [id number] 08:04:00 Test Item Value Reference Range Interpretation [...] = 7.7 GM/DL 13.7-17.5 L 410) HEMATOCRIT ([facility]) (test code = 26.0 % 40.1-51.0 L 411) MEAN CORPUSCULAR VOLUME (BEAKER) 94.5 fL 79.0-92.2 H (test code = 753) MEAN CORPUSCULAR HEMOGLOBIN 28.0 pg 25.7-32.2 (AKER) (test code = 751) MEAN CORPUSCULAR HEMOGLOBIN CONC 29.6 GM/DL 32.3-36.5 L (BEAKER) (test code = 752) RED CELL DISTRIBUTION WIDTH 16.8 % 11.6-14.4 H (AKER) (test code = 412) PLATELET COUNT ([facility]) (test 298 K/CU MM 150-450 code = 756) MEAN PLATELET VOLUME (AKER) 9.9 fL 9.4-12.4 (test code = 754) NUCLEATED RED BLOOD CELLS 0 /100 WBC 0-0 ([facility]) (test code = 413) POCT-GLUCOSE [id number] 22:17:00 Test Item Value Reference Range Interpretation Comments POC-GLUCOSE METER 154 mg/dL 70-110 H TESTED AT [place] [address] ([facility]) (test code = CIER[facility] Sew[place] 1538) 25787 POCT-GLUCOSE [id number] 22:14:00 Test Item Value Reference Range Interpretation Comments POC-GLUCOSE METER 172 mg/dL 70-110 H TESTED AT [place] [address] ([facility]) (test code = [facility] Melodie [place] 1538) 483[address] POCT-GLUCOSE [id number] 17:34:00 Test Item Value Reference Range Interpretation Comments POC-GLUCOSE METER 187 mg/dL 70-110 H TESTED AT [place] [address] ([facility]) (test code = CIER[place] Sew[place] 1538) 72288 POCT-GLUCOSE [id number] 12:28:00 Test Item Value Reference Range Interpretation Comments POC-GLUCOSE METER 192 mg/dL 70-110 H TESTED AT [place] [address] ([facility]) (test code = CIER[facility] Sew[place] 1538) 64752 POCT-GLUCOSE [id number] 07:43:00 Test Item Value Reference Range Interpretation Comments POC-GLUCOSE METER 132 mg/dL 70-110 H TESTED AT [facility] 6720 (BEAKER) (test code = [facility] 1538) 93295 POCT-GLUCOSE [id number] 21:47:00 Test Item Value Reference Range Interpretation Comments POC-GLUCOSE METER 255 mg/dL 70-110 H TESTED AT [place] [address] (BEAKER) (test code = [facility] 1538) 46126 POCT-GLUCOSE [id number] 11:45:00 Test Item Value Reference Range Interpretation Comments POC-GLUCOSE METER 159 mg/dL 70-110 H TESTED AT [place] [address] (BEAKER) (test code = [facility] 1538) 77419 [id number] 11:17:00 Test Item Value Reference Range Interpretation [...] 20-55 L (test code = 2590) POCT-GLUCOSE [id number] 08:44:00 Test Item Value Reference Range Interpretation Comments POC-GLUCOSE METER 170 mg/dL 70-110 H TESTED AT [place] [address] (BEAKER) (test code = [facility] 1538) 13007 BASIC METABOLIC [id number] 04:42:00 Test Item Value Reference Range Interpretation [...] S NOT APPLICABLE FOR DIALYSIS PATIEN TS. [id number] 03:47:00 Test Item Value Reference Range Interpretation Comments MAGNESIUM (BEAKER) (test code = 2.1 mg/dL 1.6-2.6 627) CBC W/PLT COUNT & AUTO [id number] 03:36:00 Test Item Value Reference Range Interpretation [...] PERCENT (BEAKER) (test code = 2801) POCT-GLUCOSE [id number] 22:05:00 Test Item Value Reference Range Interpretation Comments POC-GLUCOSE METER 91 mg/dL 70-110 TESTED AT [place] [address] ([facility]) ([facility] = [facility] [address] 1538) POCT-GLUCOSE [id number] 18:37:00 Test Item Value Reference Range Interpretation Comments POC-GLUCOSE METER 102 mg/dL 70-110 TESTED AT [place] [address] ([facility]) (test code = [facility] 1538) 84908 POCT-GLUCOSE [id number] 12:26:00 Test Item Value Reference Range Interpretation Comments POC-GLUCOSE METER 113 mg/dL 70-110 H TESTED AT [place] [address] ([facility]) (test code = [facility] 1538) 52995 POCT-GLUCOSE [id number] 08:07:00 Test Item Value Reference Range Interpretation Comments POC-GLUCOSE METER 73 mg/dL 70-110 TESTED AT [place] [address] ([facility]) (test code = [facility] Melodie [facility] [address] 1538) BLOOD [id number] 08:01:00 Test Item Value Reference Range Interpretation Comments CULTURE (BEAKER) (test No growth in 5 days code = 1095) BLOOD [id number] 08:01:00 Test Item Value Reference Range Interpretation Comments CULTURE (BEAKER) (test No growth in 5 days code = 1095) CBC W/PLT COUNT & AUTO [id number] 06:59:00 Test Item Value Reference Range Interpretation [...] % 0-1 PERCENT (BEAKER) (test code = 280) BASIC METABOLIC [id number] 06:27:00 Test Item Value Reference Range Interpretation [...] S NOT APPLICABLE FOR DIALYSIS PATIEN TS. [id number] 06:18:00 Test Item Value Reference Range Interpretation Comments MAGNESIUM (BEAKER) 1.6 mg/dL 1.6-2.6 Specimen slightly (test code = 627) hemolyzed URINALYSIS W/ REFLEX URINE [id number] 23:41:00 Test Item Value Reference Range Interpretation [...] 516) SOURCE(BEAKER) (test code = 2795) POCT-GLUCOSE [id number] 21:42:00 Test Item Value Reference Range Interpretation Comments POC-GLUCOSE METER 139 mg/dL 70-110 H TESTED AT [place] [address] ([facility]) (test code = [facility] 1538) 15333 POCT-GLUCOSE [id number] 20:39:00 Test Item Value Reference Range Interpretation Comments POC-GLUCOSE METER 65 mg/dL 70-110 L TESTED AT [place] [address] ([facility]) (test code = [facility] 40231 1538) POCT-GLUCOSE [id number] 17:54:00 Test Item Value Reference Range Interpretation Comments POC-GLUCOSE METER 78 mg/dL 70-110 TESTED AT [place] [address] ([facility]) (test code = [facility] 18545 1538) CBC W/PLT COUNT & AUTO [id number] 10:44:00 Test Item Value Reference Range Interpretation [...] 3438) Received comment: User comments: Slide comments:POCT-GLUCOSE [id number] 07:50:00 Test Item Value Reference Range Interpretation Comments POC-GLUCOSE METER 70 mg/dL 70-[address] [facility] 6720 (BEAKER) (test code = [facility] [address] 1538) BASIC METABOLIC [id number] 06:36:00 Test Item Value Reference Range Interpretation [...] S NOT APPLICABLE FOR DIALYSIS PATIEN TS. [id number] 06:33:00 Test Item Value Reference Range Interpretation Comments MAGNESIUM (BEAKER) (test code = 2.2 mg/dL 1.6-2.6 627) POCT-GLUCOSE [id number] 22:28:00 Test Item Value Reference Range Interpretation Comments POC-GLUCOSE METER 120 mg/dL 70-[address] [facility] 6720 (BEAKER) (test code = [facility] 1538) 04423 POCT-GLUCOSE [id number] 19:33:00 Test Item Value Reference Range Interpretation Comments POC-GLUCOSE METER 166 mg/dL 70-[address] [facility] 6720 (BEAKER) (test code = [facility] [place] [facility] 1538) 13188 POCT-GLUCOSE [id number] 13:30:00 Test Item Value Reference Range Interpretation Comments POC-GLUCOSE METER 168 mg/dL 70-[address] [facility] 6720 (BEAKER) (test code = [facility] [place] [facility] 1538) 01986 POCT-GLUCOSE [id number] 07:37:00 Test Item Value Reference Range Interpretation Comments POC-GLUCOSE METER 117 mg/dL 70-110 H TESTED AT [place] [address] (BEAKER) (test code = [facility] [place] [facility] 1538) 95266 BASIC METABOLIC [id number] 06:57:00 Test Item Value Reference Range Interpretation [...] S NOT APPLICABLE FOR DIALYSIS PATIEN TS. [id number] 06:52:00 Test Item Value Reference Range Interpretation [...] 40.1-51.0 L 411) MEAN CORPUSCULAR VOLUME (AKER) 92.5 fL 79.0-92.2 H (test code = 753) MEAN CORPUSCULAR HEMOGLOBIN 28.1 pg 25.7-32.2 (BEAKER) (test code = 751) MEAN CORPUSCULAR HEMOGLOBIN CONC 30.3 GM/DL 32.3-36.5 L (BEAKER) (test code = 752) RED CELL DISTRIBUTION WIDTH 17.1 % 11.6-14.4 H (AKER) (test code = 412) PLATELET COUNT ([facility]) (test 180 K/CU MM 150-450 code = 756) MEAN PLATELET VOLUME (AKER) 10.6 fL 9.4-12.4 (test code = 754) NUCLEATED RED BLOOD CELLS 0 /100 WBC 0-0 ([facility]) (test code = 413) POCT-GLUCOSE [id number] 21:52:00 Test Item Value Reference Range Interpretation Comments POC-GLUCOSE METER 174 mg/dL 70-110 H TESTED AT [place] [address] ([facility]) (test code = [facility] [place] [facility] 1538) 82811 POCT-GLUCOSE [id number] 17:58:00 Test Item Value Reference Range Interpretation Comments POC-GLUCOSE METER 151 mg/dL 70-110 H TESTED AT [place] [address] ([facility]) (test [facility] = [facility] Sew[facility] 1538) 14772 POCT-GLUCOSE [id number] 12:35:00 Test Item Value Reference Range Interpretation Comments POC-GLUCOSE METER 225 mg/dL 70-110 H TESTED AT [place] [address] ([facility]) (test code = [facility] Melodie [facility] 1538) 86356 HEMOGLOBIN [id number] 08:34:00 Test Item Value Reference Range Interpretation Comments HEMOGLOBIN A1C ([facility]) (test code = 6.3 % 4.3-6.1 H 368) POCT-GLUCOSE [id number] 07:56:00 Test Item Value Reference Range Interpretation Comments POC-GLUCOSE METER 141 mg/dL 70-[address] [facility] 6720 (BEAKER) (test code = [place] 1533) 17492 CBC (HEMOGRAM ONLY)2019-05-28 06:12:00 Test Item Value [...] (BEAKER) (test code = 413) BASIC METABOLIC [id number] 06:02:00 Test Item Value Reference Range Interpretation [...] NOT APPLICABLE FOR DIALYSIS PATIEN TS. POCT-GLUCOSE [id number] 22:24:00 Test Item Value Reference Range Interpretation Comments POC-GLUCOSE METER 171 mg/dL 70-[address] [facility] 6720 ([facility]) (test code = [facility] 1538) [id number] HEPATITIS B [id number] 20:01:00 Test Item Value Reference Range Interpretation Comments HEPATITIS B CORE TOTAL ANTIBODY Nonreactive Nonreactive (BEAKER) (test code = 497) HEPATITIS B SURFACE ANTIBODY < mIU/mL <8.0 (BEAKER) (test code = 647) HEPATITIS B SURFACE ANTIGEN (2) Nonreactive Nonreactive (BEAKER) (test code = 2585) POCT-GLUCOSE [id number] 17:37:00 Test Item Value Reference Range Interpretation Comments POC-GLUCOSE METER 158 mg/dL 70-[address] [facility] 67 ([facility]) (test code = [facility] 1538) [id number] CBC (HEMOGRAM ONLY)2019-05-27 16:37:00 Test Item Value [...] (BEAKER) (test code = 413) BASIC METABOLIC [id number] 16:28:00 Test Item Value Reference Range Interpretation [...] NOT APPLICABLE FOR DIALYSIS PATIEN TS. POCT-GLUCOSE [id number] 12:29:00 Test Item Value Reference Range Interpretation Comments POC-GLUCOSE METER 155 mg/dL 70-[address] [facility] 6720 (BEAKER) (test code = [facility] 2018) [id number] 09:20:00 Test Item Value Reference Range Interpretation Comments PHOSPHORUS (BEAKER) (test code = 3.4 mg/dL 2.3-4.7 604) [id number] 09:20:00 Test Item Value Reference Range Interpretation Comments MAGNESIUM (BEAKER) (test code = 2.0 mg/dL 1.6-2.6 627) PH, [id number] 08:49:00 Test Item Value Reference Range Interpretation Comments PH ARTERIAL (BEAKER) (test code = 383) 7.35 7.35-7.45 POCT-GLUCOSE [id number] 08:11:00 Test Item Value Reference Range Interpretation Comments POC-GLUCOSE METER 137 mg/dL 70-[address] [facility] 6720 (BEAKER) (test code = [place] 1538) [id number] BASIC METABOLIC [id number] 03:25:00 Test Item Value Reference Range Interpretation [...] PATIEN TS. CBC W/PLT COUNT & AUTO [id number] 03:11:00 Test Item Value Reference Range Interpretation [...] H PERCENT (BEAKER) (test code = 2803) [id number] 02:48:00 Test Item Value Reference Range Interpretation Comments MAGNESIUM (BEAKER) 2.2 mg/dL 1.6-2.6 Specimen slightly (test code = 627) hemolyzed [id number] 02:48:00 Test Item Value Reference Range Interpretation Comments PHOSPHORUS (BEAKER) 3.9 mg/dL 2.3-4.7 Specimen slightly (test code = 604) hemolyzed PH, [id number] 02:08:00 Test Item Value Reference Range Interpretation Comments PH ARTERIAL (BEAKER) (test code = 383) 7.41 7.35-7.45 RAD, CHEST, 1 VIEW, NON [id number] 22:15:00Reason for exam:->line placementShould this be performed [...] Stable surgical changes.Additional findings: None. Signed: [facility] Verified Date/Time: 05/26/2019 22:15:38 BASI METABOLIC [id number] 17:25:00 Test Item Value Reference Range Interpretation [...] NOT APPLICABLE FOR DIALYSIS PATIEN TS. POCT-GLUCOSE [id number] 17:09:00 Test Item Value Reference Range Interpretation Comments POC-GLUCOSE METER 233 mg/dL 70-[address] [facility] 6720 ([employer]) (test code = CIERA Sewell [facility] 1538) [id number] TROPONIN [id number] 12:31:00 Test Item Value Reference Range Interpretation [...] failure, acidosis, acute neurological disease, and persistent tachyarrhythmia.[id number] 12:26:00 Test Item Value Reference Range Interpretation Comments CALCIUM (BEAKER) (test code = 697) 7.7 mg/dL 8.4-10.2 L [id number] 12:24:00 Test Item Value Reference Range Interpretation Comments POTASSIUM (BEAKER) (test code = 4.4 meq/L 3.5-5.1 379) [id number] 12:24:00 Test Item Value Reference Range Interpretation Comments MAGNESIUM (BEAKER) (test code = 2.2 mg/dL 1.6-2.6 627) [id number] 12:24:00 Test Item Value Reference Range Interpretation Comments SODIUM (BEAKER) (test code = 381) 128 meq/L 136-145 L POCT-GLUCOSE [id number] 12:15:00 Test Item Value Reference Range Interpretation Comments POC-GLUCOSE METER 281 mg/dL 70-[address] [facility] 6720 ([employer]AKER) (test code = CIERA Sewell [place] 1538) [address] PH, [id number] 11:52:00 Test Item Value Reference Range Interpretation Comments PH ARTERIAL (BEAKER) (test code = 383) 7.36 7.35-7.45 RAD, CHEST, 1 VIEW, NON [id number] 08:05:00Reason for exam:->central line placementFINAL REPORT CLINICAL [...] Villag[place] [facility] Verified Date/Time:05/26/2019 08:05:54 Reading Location: [facility] C013 Neuro Reading Room TROPONIN [id number] 06:42:00 Test Item Value Reference Range Interpretation Comments TROPONIN I (CONRAD) (test code = 0.92 ng/mL 0.00-0.03 397) [...] acidosis, acute neurological disease, and persistent tachyarrhythmia.TROPONIN [id number] 06:41:00 Test Item Value Reference Range Interpretation Comments TROPONIN I (ISAACAKER) (test code = 0.92 ng/mL 0.00-0.03 397) [...] acute neurological disease, and persistent tachyarrhythmia.BASIC METABOLIC [id number] 06:23:00 Test Item Value Reference Range Interpretation [...] NOT APPLICABLE FOR DIALYSIS PATIEN TS. PROTHROMBIN [id number] 06:20:00 Test Item Value Reference Range Interpretation [...] INR is2.5-3.5 for patients wiht mechanical heart valves.[id number] 06:17:00 Test Item Value Reference Range Interpretation Comments PHOSPHORUS (BEAKER) (test code = 4.5 mg/dL 2.3-4.7 604) [id number] 06:17:00 Test Item Value Reference Range Interpretation Comments MAGNESIUM (BEAKER) (test code = 2.4 mg/dL 1.6-2.6 627) CBC W/PLT COUNT & AUTO [id number] 06:03:00 Test Item Value Reference Range Interpretation [...] (test code = 2801) TSH/FREE T4 IF [id number] 22:17:00 Test Item Value Reference Range Interpretation Comments THYROID STIMULATING HORMONE 3.33 uIU/mL 0.35-4.94 (BEAKER) (test code = 772) TROPONIN [id number] 21:59:00 Test Item Value Reference Range Interpretation [...] H (BEAKER) (test code = 700) C-REACTIVE [id number] 21:51:00 Test Item Value Reference Range Interpretation Comments C-REACTIVE PROTEIN (BEAKER) (test 13.88 mg/dL 0.00-0.50 H code = 676) COMPREHENSIVE METABOLIC [id number] 21:51:00 Test Item Value Reference Range Interpretation [...] PATIEN TS. CBC W/PLT COUNT & AUTO [id number] 21:20:00 Test Item Value Reference Range Interpretation [...] 0-1 H PERCENT (BEAKER) (test code = 8522)
[2022-01-18] MEDS ORDERED: HYDROCODONE/APAP 5/325 MG TAB ONE (14:01)
--- NOTE | 2022-01-18 14:20 | RAD REPORT ---
EXAM DESCRIPTION: CT - Stone Protocol - 01/18/2022 1:57 pm CLINICAL HISTORY: Abdominal pain. That and COMPARISON: CT lumbar spine 2020 CT abdomen November 2020 TECHNIQUE: Computed axial tomography of the abdomen pelvis was obtained without oral or IV contrast. Lack of IV and oral contrast limits evaluation of solid organs, bowel, and vessels. Coronal reformat nova images were obtained and reviewed. All CT scans are performed using dose optimization technique as appropriate and may include automated exposure control or mA/KV adjustment according to patient size. FINDINGS: Moderate right and small to moderate left pleural effusions A renal calculus is not seen. An ureteral calculus is not noted. A bladder calculus is not present. V ascular calcifications. Small kidneys. The liver, spleen, pancreas and adrenals appear grossly normal There is no evidence of diverticulitis. Minimal subacute compression fracture T12 vertebral body Large amount of ascites IMPRESSION: Negative for a genitourinary calculus Minimal subacute compression fracture T12 vertebral body Large amount of ascites
--- NOTE | 2022-01-18 16:31 | EDPHYS ---
Physician Documentation [facility] Name: Benji Villalpando Age: 66 yrs Sex: Male : 1955 Arrival Date: 01/18/2022 Time: 11:18 Bed 24 Private MD: ED Physician Rigo Millan HPI: 01/18 17:09 This 66 yrs old Male presents to ER via Wheelchair with complaints of Flank kdr Pain. 17:09 The patient complains of pain in the mid back area. The pain does not radiate. Onset: kdr The symptoms/episode began/occurred gradually, 1 week(s) ago. Modifying factors: The symptoms are alleviated by nothing. remaining still, the symptoms are aggravated by movement. Associated signs and symptoms: The patient has no apparent associated signs or symptoms. Severity of pain: At its worst the pain was mild moderate in the emergency department the pain is unchanged. The patient has not experienced similar symptoms in the past. The patient has not recently seen a physician. Historical: - Allergies: 12:09 No Known Allergies; ap3 - PMHx: 12:09 Anemia; CHF; chronic kidney disease; Diabetes - NIDDM; Dialysis T-T-S; Hyperlipidemia; ap3 Hypertension; Hypothyroidism; Myocardial infarction; RENAL FAILURE; - PSHx: 12:09 fistula; heart bypass; pacemaker; ap3 - Immunization history:: Client reports receiving the 2nd dose of the Covid vaccine, Pneumococcal vaccine is up to date, Flu vaccine is up to date. - Social history:: Smoking status: Patient denies any tobacco usage or history of. ROS: 17:09 Constitutional: Negative for fever, chills, and weight loss, Eyes: Negative for injury, kdr pain, redness, and discharge, Neck: Negative for injury, pain, and swelling, Cardiovascular: Negative for chest pain, palpitations, and edema, Respiratory: Negative for shortness of breath, cough, wheezing, and pleuritic chest pain, Abdomen/GI: Negative for abdominal pain, nausea, vomiting, diarrhea, and constipation, : Negative for injury, bleeding, discharge, and swelling, MS/Extremity: Negative for injury and deformity, Skin: Negative for injury, rash, and discoloration, Neuro: Negative for headache, weakness, numbness, tingling, and seizure activity. Psych: Negative for depression, anxiety, suicide ideation, homicidal ideation, and hallucinations, Allergy/Immunology: Negative for hives, rash, and allergies, Endocrine: Negative for neck swelling, polydipsia, polyuria, polyphagia, and marked weight changes, Hematologic/Lymphatic: Negative for swollen nodes, abnormal bleeding, and unusual bruising. 17:09 Back: Positive for pain with movement, of the mid back area. Exam: 17:09 Constitutional: This is a well developed, well nourished patient who is awake, alert, kdr and in no acute distress. Head/Face: Normocephalic, atraumatic. Eyes: Pupils equal round and reactive to light, extra-ocular motions intact. Lids and lashes normal. Conjunctiva and sclera are non-icteric and not injected. Cornea within normal limits. Periorbital areas with no swelling, redness, or edema. Neck: Trachea midline, no thyromegaly or masses palpated, and no cervical lymphadenopathy. Supple, full range of motion without nuchal rigidity, or vertebral point tenderness. No Meningismus. Cardiovascular: Regular rate and rhythm with a normal S1 and S2. No gallops, murmurs, or rubs. Normal PMI, no JVD. No pulse deficits. Respiratory: Lungs have equal breath sounds bilaterally, clear to auscultation and percussion. No rales, rhonchi or wheezes noted. No increased work of breathing, no retractions or nasal flaring. Abdomen/GI: Soft, non-tender, with normal bowel sounds. No distension or tympany. No guarding or rebound. No evidence of tenderness throughout. Skin: Warm, dry with normal turgor. Normal color with no rashes, no lesions, and no evidence of cellulitis. MS/ Extremity: Pulses equal, no cyanosis. Neurovascular intact. Full, normal range of motion. Neuro: Awake and alert, GCS 15, oriented to person, place, time, and situation. Cranial nerves II-XII grossly intact. Motor strength 5/5 in all extremities. Sensory grossly intact. Cerebellar exam normal. Normal gait. Psych: Awake, alert, with orientation to person, place and time. Behavior, mood, and affect are within normal limits. 17:09 Back: pain, that is mild, ROM is painful, with all movement, normal spinal alignment noted, CVA tenderness, is absent, vertebral tenderness, is appreciated at T11, T12 and L1. Vital Signs: 12:07 BP 96 / 57; Pulse 76; Resp 16; Temp 98.2; Pulse Ox 97% ; Weight 79.38 kg; Height 5 ft. ap3 4 in. (162.56 cm); Pain 10/10; 12:07 Body Mass Index 30.04 (79.38 kg, 162.56 cm) ap3 MDM: 16:30 Patient medically screened. kdr 17:09 Data reviewed: vital signs, nurses notes, lab test result(s), radiologic studies. kdr Counseling: I had a detailed discussion with the patient and/or guardian regarding: the historical points, exam findings, and any diagnostic results supporting the discharge/admit diagnosis, lab results, radiology results, the need for outpatient follow up. ED course: I discussed with the family the need for caution while giving the patient pain medication. He may in fact become more stable.. 01/18 13:26 Order name: CT Stone Protocol; Complete Time: 14:41 kdr Administered Medications: 13:59 Drug: HYDROcodone-acetaminophen 5 mg-325 mg 1 tabs Route: PO; lr4 14:39 Follow up: Response: Pain is decreased lr4 Disposition Summary: 01/18/22 16:30 Discharge Ordered Location: Home kdr Problem: new kdr Symptoms: have improved kdr Condition: Stable kdr Diagnosis - Low back pain kdr Followup: kdr - With: Private Physician - When: 2 - 3 days - Reason: If symptoms return, Further diagnostic work-up, Recheck today's complaints, Continuance of care, Re-evaluation by your physician Discharge Instructions: - Discharge Summary Sheet kdr - Acute Back Pain, Adult kdr - Back Exercises, [id number] kdr - Musculoskeletal Pain kdr Forms: - Medication Reconciliation Form kdr - Thank You Letter kdr - Prescription Opioid Use kdr Prescriptions: - Tylenol-Codeine #3 300 mg-30 mg Oral - take 1 tablet by ORAL route every 4-6 hours As needed; 12 tablet; Refills: 0, kdr Product Selection Permitted Signatures: Dispatcher [employer] EDRigo Lagunas MD MD kdr Leola Jones RN RN ap3 Elizabeth Sanches RN RN lr4 Corrections: (The following items were deleted from the chart) 13:56 13:27 Spine Lumbar Wo Con+CT.RAD.BRZ ordered. EDMS EDMS 13:56 13:27 Pelvis Wo Cont+CT.RAD.BRZ ordered. EDMS EDMS
--- NOTE | 2022-01-18 16:31 | ER ---
Nurse's Notes [facility] Name: Benji Villalpando Age: 66 yrs Sex: Male : 1955 Arrival Date: 01/18/2022 Time: 11:18 Bed 24 Private MD: Diagnosis: Low back pain Presentation: 01/18 12:07 Chief complaint: Patient states: he has been experiencing bilateral flank pain for ap3 approx one week. When the patient called his PCP to notify him, he was instructed to come to the ED for further evaluation. Coronavirus screen: At this time, the client does not indicate any symptoms associated with coronavirus-19. Ebola Screen: No symptoms or risks identified at this time. Initial Sepsis Screen: Does the patient meet any 2 criteria? Systolic BP < 90 mmHg. Does the patient have a suspected source of infection? No. Patient's initial sepsis screen is negative. Risk Assessment: Do you want to hurt yourself or someone else? Patient reports no desire to harm self or others. Onset of symptoms was January 11, 2022. 12:07 Method Of Arrival: Wheelchair ap3 12:07 Acuity: MILADYS 3 ap3 Triage Assessment: 12:11 General: Appears comfortable, Behavior is calm, cooperative, appropriate for age. Pain: ap3 Complains of pain in low back area Pain currently is 10 out of 10 on a pain scale. Pain began gradually, one week ago. Neuro: Level of Consciousness is awake, alert, obeys commands, Speech is normal. Respiratory: Airway is patent. : Reports he only produces a little urine due to dialysis treatment. Historical: - Allergies: 12:09 No Known Allergies; ap3 - PMHx: 12:09 Anemia; CHF; chronic kidney disease; Diabetes - NIDDM; Dialysis T-T-S; Hyperlipidemia; ap3 Hypertension; Hypothyroidism; Myocardial infarction; RENAL FAILURE; - PSHx: 12:09 fistula; heart bypass; pacemaker; ap3 - Immunization history:: Client reports receiving the 2nd dose of the Covid vaccine, Pneumococcal vaccine is up to date, Flu vaccine is up to date. - Social history:: Smoking status: Patient denies any tobacco usage or history of. Screenin:11 Abuse screen: Denies threats or abuse. Nutritional screening: No deficits noted. ap3 Tuberculosis screening: No symptoms or risk factors identified. 13:38 Fall Risk None identified. No fall in past 12 months (0 pts). Secondary diagnosis (15 lr4 points) Ambulatory Aid- Crutches/Cane/Walker (15 pts). Gait- Weak (10 pts.). Mental Status- Oriented to own ability (0 pts). Total Nayak Fall Scale indicates High Risk Score (45 or more points). Placed Close to Nursing Station Frequent Obs/Assessments Occuring Family Present and informed to notify staff if the need to leave the bedside As available patient and family educated on Fall Prevention Program and Strategies. Assessment: 13:33 General: Appears in no apparent distress. comfortable, Behavior is calm, cooperative. lr4 Pain: Denies pain. Pain began x1 wk Aggravated by increased activity, weight bearing. Neuro: No deficits noted. Cardiovascular: No deficits noted. Respiratory: No deficits noted. : Reports pain in bilateral flank(s), Denies burning with urination, urinary frequency, urgency. Vital Signs: 12:07 BP 96 / 57; Pulse 76; Resp 16; Temp 98.2; Pulse Ox 97% ; Weight 79.38 kg; Height 5 ft. ap3 4 in. (162.56 cm); Pain 10/10; 12:07 Body Mass Index 30.04 (79.38 kg, 162.56 cm) ap3 ED Course: 11:18 Patient arrived in ED. as 11:57 Rigo Millan MD is Attending Physician. kdr 12:09 Triage completed. ap3 12:12 Arm band placed on left wrist. ap3 13:37 Patient has correct armband on for positive identification. Bed in low position. Call lr4 light in reach. Adult w/ patient. Door closed. Noise minimized. Verbal reassurance given. 13:37 No provider procedures requiring assistance completed. lr4 13:38 CT Stone Protocol Sent. lr4 13:48 Elizabeth Sanches, HIRA is Primary Nurse. lr4 13:56 CT Stone Protocol In Process Unspecified. EDMS 17:00 Patient did not have IV access during this emergency room visit. jl7 Administered Medications: 13:59 Drug: HYDROcodone-acetaminophen 5 mg-325 mg 1 tabs Route: PO; lr4 14:39 Follow up: Response: Pain is decreased lr4 Outcome: 13:37 Condition: stable lr4 16:30 Discharge ordered by . kdr 17:00 Discharged to home with family. jl7 17:00 Discharge instructions given to patient, Instructed on discharge instructions, follow up and referral plans. medication usage, Demonstrated understanding of instructions, follow-up care, medications, Prescriptions given X 1. 17:13 Patient left the ED. jl7 Signatures: Dispatcher [employer] EDMS Rigo Millan MD MD kdr Martinez, Amelia as Leal, Jahala, RN RN jl7 Leola Jones RN RN ap3 Elizabeth Sanches RN RN lr4 Corrections: (The following items were deleted from the chart) 12:12 12:11 General: Appears ap3 ap3 13:56 13:38 To radiology for Pelvis Wo Cont+CT.RAD.BRZ. lr4 EDMS 13:56 13:38 To radiology for Spine Lumbar Wo Con+CT.RAD.BRZ. lr4 EDMS
[2022-01-18 17:18] VITALS: BP 96/57; TEMP 98.2; O2SAT 97
== END 2022-01-18 17:13 | disposition home or self-care (01) ==
LOC: ER 11:15
DX: M54.50 Low back pain, unspecified (principal); R10.9 Unspecified abdominal pain; E11.22 Type 2 diabetes mellitus with diabetic chronic kidney disease; I13.2 Hypertensive heart and chronic kidney disease with heart failure and with stage 5 chronic kidney disease, or end stage renal disease; N18.6 End stage renal disease; I50.9 Heart failure, unspecified; Z99.2 Dependence on renal dialysis; E78.5 Hyperlipidemia, unspecified; E03.9 Hypothyroidism, unspecified; Z95.0 Presence of cardiac pacemaker; Z95.1 Presence of aortocoronary bypass graft
CPT/HCPCS: 74176; 76377; 99283

== ENCOUNTER 2022-02-03 07:10 | Day surgery (SDC) | payer OTHER ==
[2022-02-03 08:09] VITALS: O2SAT 90
[2022-02-03 08:10] LABS: MPV 8.5 fL (7.6-11.3)
[2022-02-03 08:14] LABS: Protime INR 1.15
--- NOTE | 2022-02-03 09:16 | RAD REPORT ---
EXAM DESCRIPTION: US - Paracentesis Proc Guidance - 02/03/2022 9:09 am CLINICAL HISTORY: ASCITES Ascites COMPARISON: Paracentesis Proc Guidance dated 12/01/2021 FINDINGS: Informed consent was obtained and time-out was performed. Patient's abdomen was prepped and draped in the usual sterile fashion. 1% lidocaine was used for loca l anesthetic purposes. A small skin incision was made. A paracentesis catheter was guided into the peroneal cavity under son ographic guidance. A small amount of fluid was sent for requested lab studies. A large volume paracentesis was performed . The patient tolerated the procedure well. Patient was administered IV albumin per protocol following the procedure. IMPRESSION: Successful ultrasound-guided paracentesis.
[2022-02-03] MEDS ORDERED: ALBUMIN HUMAN 25% 200 ML IV ONE (09:20)
[2022-02-03 09:47] VITALS: BP 121/66; TEMP 96.6
[2022-02-03 10:58] LABS: Body Fluid WBC 141 /mm^3
[2022-02-03 12:20] LABS: Appearance SLT. TURBID (CLEAR); Body Fluid Source PERITONEAL; Color of fluid Yellow (COLORLESS)
== END 2022-02-03 10:23 | disposition home or self-care (01) ==
LOC: DS 07:10
PROVIDERS: ATTEND Nurse Practitioner
DX: R18.8 Other ascites (principal); K74.60 Unspecified cirrhosis of liver
CPT/HCPCS: 36415; 89050; 85049; 85610; 85730; 96365; 49083; P9047

== ENCOUNTER 2022-02-05 16:38 | Inpatient (IN) | payer OTHER ==
--- OUTSIDE RECORDS SUMMARY | 2022-02-05 16:57 | XMS REPORT | Continuity of Care Document ---
:1955 Author Organization [facility] t Address [facility] [place] [address] Care Team Providers Name Role Phone ISABELLA COFFMAN Primary Care Physician Unavailable Hallie Coffman Attending [...] Policy Number Effective Date Expiration Date Ganesh allred [facility] [id number] 2019 00:00:00 WELLCARE АННА [id number] 2019 00:00:00 HUMANA MEDICARE [id number] 2021 ADV 00:00:00 WELLCARE STEFFI [id number] 2020 STAR PLUS 00:00:00 WELLCARE OF [place] - [id number] 2019 TEXANPLUS 00:00:00 (MEDICARE REPLACEMENT/ADVANT AGE - HMO) Problems This patient has no known problems. Allergies, Adverse Reactions, Alerts Allergy Allergy Status Severity Reaction(s) Onset Inactive Treating Comm ents Source Name Type Date Date Clinician No Known DA Active U 2017-0 [facility] All[facility]ie 5-16 Clear s 00:00: Padron 00 [facility] No Known DA Active U 0 [facility] Allergie 5-16 Clear s 00:00: Padron 00 [facility] NO KNOWN Allergy Active [facility] ALLERGIE S NO KNOWN Drug Active Univers ALLERGIE Class ity of S [facility] Medications Ordered Filled Start Stop Current Ordering Indication Dosage Frequency Signature Comments Components Source Medication Medication Date Date Medication? Clinician (SIG) Name Name Aspirin 81 Aspirin 81 Yes Isabella [address] [facility] Clopidogrel Clopidogrel Yes Isabella [address] [facility] Bisulfate Bisulfate [facility] Basaglar Basaglar Yes Isabella inject [address] [facility] KwikPen KwikPen [facility] units [facility] Tradjenta Tradjenta Yes Isabella [address] [facility] Senna Senna Yes Isabella [address] [facility] at bedtime [facility] Lantus Lantus Yes Isabella as [facility] SoloStar SoloStar Coffman directed Serenity kes - [facility] Aspirin Aspirin Yes Isabella TAKE 1 [facility] TABLET BY [facility]TH [facility] EVERY DAY [facility] Atorvastati Atorvastati Yes Isabella TAKE [address] [facility] n Calcium n Calcium Coffman TABLET BY [facility] AT [facility] BEDTIME [facility] Midodrine Midodrine Yes Isabella [address] [facility] HCl HCl [facility] Lorazepam Lorazepam Yes Isabella [address] [facility] as needed [facility] Synthroid Synthroid Yes Isabella [address] [facility] [address] [facility] on an [facility] stomach [facility] Atorvastati Atorvastati Yes Isabella [address] [facility] [facility] n Calcium n Calcium [facility]man [facility] ent Clinics Vital Signs Vital [...] Date/Time Type Type Clinicians Facility Department ID 2022-01-22 [facility] [id number] [facility] [address] 10:07:00 [facility] [id number] [place] [address] 2021-12-02 [facility] [id number] [facility] 14:22:20 Isabella 70687 [facility] 2021-12-02 Outpatient Coffman, [facility] [id number] 13:47:46 Isabella 17942 [facility] 2021-12-02 Outpatient Coffman, [facility] [id number] 13:38:19 Isabella 01413 [facility] 2021-12-02 Outpatient Coffman, [facility] [id number] 13:27:09 Isabella 24920 [facility] 2021-12-02 Outpatient Coffman, [facility] [id number] 12:41:17 Isabella 75949 [facility] 2021-12-02 Outpatient Coffman, [facility] [id number] 12:35:51 Isabella 46037 [facility] 2021-12-02 Outpatient Coffman, [facility] [id number] 12:35:15 Isabella 03716 [facility] 2021-12-02 Outpatient Coffman, [facility] [id number] 12:07:23 Isabella 98459 [facility] 2021-12-02 Outpatient Coffman, [facility] [id number] 11:39:10 Isabella 58094 [facility] 2021-12-02 Outpatient Coffman, [facility] [id number] 11:20:23 Isabella 62789 [facility] 2021-12-02 Outpatient Coffman, [facility] [id number] 11:18:51 Isabella 72590 [facility] 2021-12-02 Outpatient Coffman, [facility] [id number] 11:16:22 Isabella 58262 [facility] 2021-12-02 Outpatient Coffman, [facility] [id number] 11:05:05 [facility] 30383 [facility] 2020-12-19 Inpatient Espinoza Villagran [facility]L DAYS [id number] [facility] 13:00:00 [id number] [facility] 2020-11-14 Inpatient ER KALDERICK, [facility] Gastro [id number] [facility] 21:46:00 ARBEN 2020-06-20 Inpatient Espinoza Villagran [facility] DAYS [id number] [facility] 13:00:00 [id number] [facility] 2020-06-18 Inpatient Espinoza Villagran [facility] DAYS [id number] [facility] 08:30:00 [id number] [facility] 2019-05-04 [id number] 17:34:38 2022-01-22 2022-01-22 ambulatory STLMLC [facility] [id number] [facility] 2022-01-18 2022-01-18 ambulatory STLMLC [facility]LML[facility] [id number] [facility] 2022-01-18 2022-01-18 ambulatory STLMLC [facility]LMLC [id number] [facility] 2021-12-28 2021-12-28 Outpatient EL [facility] [id number] [facility] 00:00:00 00:00:00 2021-12-22 2021-12-22 ambulatory STLMLC [facility]MLC [id number] [facility] 2021-11-27 2021-11-27 Outpatient EL SLE [facility] [id number] [facility] 00:00:00 00:00:00 2021-10-26 2021-10-26 ambulatory STLMLC [facility]LML[facility] [id number] [facility] 2021-10-14 2021-10-14 ambulatory STLMLC [facility]LMLC [id number] [facility] 2021-10-12 2021-10-12 Outpatient EL DALLIN [facility] SLE [id number] [facility] 00:00:00 23:59:00 HUMERA 2021-10-12 2021-10-12 Emergency ER FLO [facility] Emergency [id number] [facility] 09:11:00 16:00:00 YANIRA 2021-10-08 2021-10-08 ambulatory [facility]LMLC [facility] [id number] [facility] 2021-10-05 2021-10-05 ambulatory STLMLC STLMLC [id number] [facility] 2021-09-30 2021-09-30 ambulatory STLMLC [facility]ML[facility] [id number] [facility] 2021-08-11 2021-08-11 Outpatient STLMLC [facility]ML[facility] [id number] [facility] 2021-08-03 2021-08-03 Outpatient [facility] [id number] [facility] [place] 00:00:00 23:59:00 Martha 2021-08-03 2021-08-03 Emergency ER [facility] Emergency [id number] [facility] 11:01:00 11:01:00 2021-07-29 2021-07-29 Outpatient STLMLC [facility] [id number] [facility] 2021-07-23 2021-07-23 Outpatient EL [facility] SLE [id number] [facility] 00:00:00 00:00:00 2021-07-23 2021-07-23 Outpatient [facility]LMLC [facility] [id number] [facility] 2021-07-14 2021-07-14 Outpatient [facility]LMLC [facility] [id number] [facility] 2021-07-08 2021-07-08 Outpatient [facility]MLC [facility] [id number] [facility] 2021-07-08 2021-07-08 Outpatient [facility]MLC [facility] [id number] [facility] 2021-06-26 2021-06-26 Outpatient EL DALLIN, [facility] [id number] [facility] 00:00:00 00:00:00 HUMERA 2021-06-26 2021-06-26 Outpatient SABEROLA, [facility] [id number] [facility] 00:00:00 00:00:00 HUMERA 2021-06-26 2021-06-26 Outpatient EL [facility] [id number] [facility] 00:00:00 00:00:00 2021-06-22 2021-06-22 Outpatient [facility]LMLC [facility] [id number] [facility] 2021-06-22 2021-06-22 Outpatient [facility]MLC [facility] [id number] [facility] 2021-06-22 2021-06-22 Outpatient [facility]MLC [facility] [id number] [facility] 2021-06-19 2021-06-19 Outpatient EL [facility] [id number] [facility] 00:00:00 00:00:00 2021-06-19 2021-06-19 Outpatient [facility]LMLC [facility] [id number] [facility] 2021-06-05 2021-06-05 Outpatient EL SLE SLE [id number] [facility] 00:00:00 00:00:00 2021-05-25 2021-05-25 Emergency ER [facility] Emergency [id number] [facility] 15:33:00 15:33:00 2021-05-25 2021-05-25 Outpatient [facility]LMLC [facility] [id number] [facility] 2021-05-22 2021-05-22 Outpatient [facility]LMLC [facility] [id number] [facility] 2021-05-21 2021-05-21 Outpatient [facility]LMLC [facility] [id number] [facility] 2021-04-09 2021-04-09 Outpatient [facility]LMLC [facility] [id number] [facility] 2021-01-21 2021-01-21 Outpatient [facility]LMLC [facility] [id number] [facility] 2021-01-07 2021-01-07 Outpatient [facility]MLC [facility] [id number] [facility] 2020-12-30 2020-12-30 Outpatient EL [facility] [id number] [facility] 00:00:00 00:00:00 2020-12-26 2020-12-26 Outpatient EL SLE [facility] [id number] [facility] 00:00:00 00:00:00 2020-12-18 2020-12-18 Outpatient EL SLE [facility] [id number] [facility] 00:00:00 00:00:00 2020-11-10 2020-11-10 Outpatient [facility]LMLC [facility] [id number] [facility] 2020-10-08 2020-10-08 Outpatient [facility]LMLC [facility] [id number] [facility] 2020-08-15 2020-08-15 Outpatient [facility]MLC [facility] [id number] [facility] 2020-06-25 2020-06-25 [facility] [id number] [facility] 15:00:00 15:00:00 t [employer]NO [employer] [place] s [employer] [facility] Medicine l Medicine Outpati ent Clinics 2020-06-25 2020-06-25 [facility] [id number] 15:00:00 15:00:00 t [employer] [facility] Medicine Outpati ent Clinics 2020-03-12 2020-03-12 [facility] [id number] 13:45:00 13:45:00 t [employer] [facility] Medicine Outpati ent Clinics 2020-02-12 2020-02-12 Outpatient Melodie WALL, [facility] [id number] Univers 09:00:00 09:00:00 CIERRA christy [facility] 2019-12-26 2019-12-26 Outpatient Jony-Mbayo VFP VFP [id number] [facility] 07:15:00 07:15:00 _A_AH [id number] Family Practic e 2019-12-26 2019-12-26 Outpatient Jony-Mbayo VFP VFP [id number] [facility] 07:15:00 07:15:00 _A_AH 85412 Family Practic e 2019-12-10 2019-12-10 [facility] [id number] [facility] 13:30:00 13:30:00 t [employer] [facility] Medicine Outpati ent Clinics 2019-09-26 2019-09-26 [facility] [id number] 08:23:00 08:23:00 t [employer] [facility] Medicine Medicine Outpati ent Clinics 2019-09-20 2019-09-20 [facility] [id number] 16:58:00 16:58:00 t [employer] [place] s [employer] [facility] Medicine Outpati ent Clinics 2019-08-10 2019-08-10 [facility] [id number] 09:15:00 09:15:00 t [employer] [place] s [employer] [facility] Medicine Medicine Outpati ent Clinics 2019-07-11 2019-07-11 [facility] [id number] 16:55:00 16:55:00 t [employer] Luke s - Drive [facility] Medicine Medicine Outpati ent Clinics 2019-07-11 2019-07-11 [facility] [id number] 10:15:00 10:15:00 t [email or web address] Luke s - Drive [facility] Medicine Outpati ent Clinics 2019-07-06 2019-07-06 [facility] [id number] 16:41:00 16:41:00 t Clements [employer] s - Drive [facility] Medicine Outpati ent Clinics 2019-05-04 2019-05-04 Outpatient UTPDOCS UTPDO [id number] 09:00:00 13:49:28 2019-05-04 2019-05-04 [facility] [id number] [facility] 12:18:00 10:21:00 2019-05-04 2019-05-04 Appointmanuel HUSAIN, [facility] [id number] Univers 09:00:00 09:00:00 t; speedy MAE & zohreh of [place] HUSAIN Vascular Reinier MAE Surgery - Physic i [place] [facility] 2019-04-20 2019-04-20 [facility] [id number] 09:30:00 09:30:00 t [employer] s - Drive [facility] Medicine Outpati ent Clinics 2019-02-27 2019-02-27 [facility] [id number] 10:00:00 10:00:00 t [employer] s - Drive [facility] Medicine Outpati ent Clinics 2019-01-24 2019-01-24 [facility] [id number] 10:45:00 10:45:00 t [email or web address] Lu[employer]ynny s - Drive [facility] Medicine Medicine Outpati ent Clinics 2019-01-10 2019-01-10 [facility] [id number] 07:54:00 07:54:00 t [employer] s - Drive [facility] Medicine Medicine Outpati ent Clinics 2018-11-15 2018-11-15 [facility] [id number] 10:00:00 10:00:00 t [employer] s - Drive [facility] Outpati ent Clinics 2018-10-12 2018-10-12 [facility] [id number] 15:00:00 15:00:00 t Specialty/U Serenity kes - Specialty rology [facility] a /Urology Clinic l Clinic Outpati ent Clinics 2018-05-08 2018-05-08 [facility] [id number] 08:20:00 08:20:00 t Science [employer] [facility] Outpati ent Clinics 2018-05-01 2018-05-01 [facility] [id number] 08:46:00 08:46:00 t [employer] [facility] Outpati ent Clinics 2018-04-27 2018-04-27 [facility] [id number] 09:00:00 09:00:00 t [employer] [facility] Outpati ent Clinics 2018-04-20 2018-04-20 [facility] [id number] 13:36:00 13:36:00 t [employer] [facility] Outpati ent Clinics 2018-04-12 2018-04-12 [facility] [id number] 16:11:00 16:11:00 t [employer] [facility] Outpati ent Clinics 2018-04-10 2018-04-10 [facility] [id number] 14:45:00 14:45:00 t [employer] [facility] Outpati ent Clinics Results Test Description Test Time Test Comments Results Result Comments Source BODY FLUID CULTURE + GRAM STAIN 2021-10-15 10:11:18 Test Item Value Reference Range Interpretation Comme nts CULTURE (BEAKER) (test code = 1095) No growth U/S, [id number] 08:12:00DR STRIBLINGLabs to be ordered:->Body Fluid Culture (w/Gram Stain, C\T\S)Labs to be ordered:->Cell CountReason for exam:->abdominal distension [facility] : 1955 Sex: MFINAL REPORT Ultrasound guided paracentesis. Clinical History: Ascites. Sedation: None. Geodetic Engineer: Char Van PA-C Technical Account Representative: None. Estimated Blood Loss: < 1 cc. [...] was achieved with 2% lidocaine, a 5 Fijian one-step catheter was advanced into the peritoneal cavity under ultrasoundguidance. After completion of drainage, the catheter was removed. There was no evidence of complication. Impression:Successful ultrasound guided paracentesis. Signed: Raymond Coffman MDReport Verified Date/Time: 10/13/2021 08:12:56 Reading Location: [address] Ultrasound Reading Room BODY FLUID CELL [...] (BEAKER) (test code = 2873) COMPREHENSIVE METABOLIC [id number] 10:23:58 Test Item Value Reference Range Interpretation [...] S NOT APPLICABLE FOR DIALYSIS PATIEN TS. Scarfer ID - JORDAN MB-TYPE NATRIURETIC FACTOR (BNP)2021-10-12 10:12:10 Test Item Value Reference Range Interpretation Comments B-TYPE NATRIURETIC PEPTIDE 4245 pg/mL 0-100 H (BEAKER) (test code = 700) Scarfer ID - JORDAN [id number] 10:01:45 Test Item Value Reference Range Interpretation [...] = 2801) BODY FLUID CULTURE + GRAM [id number] 14:14:13 Test Item Value Reference Range Interpretation Comments CULTURE (BEAKER) (test code No growth = 1095) GRAM STAIN RESULT (BEAKER) <1+ WBCs (test code = 1123) GRAM STAIN RESULT (BEAKER) No organisms seen (test code = 26977) POCT-GLUCOSE [id number] 12:15:12 Test Item Value Reference Range Interpretation Comments POC-GLUCOSE METER 165 mg/dL 70-110 H : TESTED A T [facility] 6720 (BEAKER) (test code = CIERA Sewell [place], 1538) 40132: Scarfer/Techni elsie ID = [id number] for ROBYN YANCEY BASIC METABOLIC [id number] 08:52:50 Test Item Value Reference Range Interpretation [...] S NOT APPLICABLE FOR DIALYSIS PATIEN TS. Scarfer ID - [id number] 08:49:00 Test Item Value Reference Range Interpretation Comments MAGNESIUM (BEAKER) (test code = 2.1 mg/dL 1.6-2.6 627) Scarfer ID - ADMINPOCT-GLUCOSE [id number] 07:57:04 Test Item Value Reference Range Interpretation Comments POC-GLUCOSE METER 178 mg/dL 70-110 H : TESTED A T [facility] 6720 (BEAKER) (test code = CIERA Sewell [facility], 1538) 10545: Scarfer/Techni elsie ID = [id number] for ROBYN YANCEY CBC W/PLT COUNT & AUTO [id number] 06:39:06 Test Item Value Reference Range Interpretation [...] PERCENT (BEAKER) (test code = 2801) POCT-GLUCOSE [id number] 22:12:47 Test Item Value Reference Range Interpretation Comments POC-GLUCOSE METER 157 mg/dL 70-110 H : TESTED A T [facility] 6720 (BEAKER) (test code = [facility] Melodie [facility], 1538) 96101: Scarfer/Techni elsie ID = [id number] for Pawel Reynolds POCT-GLUCOSE [id number] 17:45:52 Test Item Value Reference Range Interpretation Comments POC-GLUCOSE METER 159 mg/dL 70-110 H : TESTED A T [facility] 6720 (BEAKER) (test code = [facility], 1538) 98314: Scarfer/Techni elsie ID = [id number] for Erma Kingston [id number] 13:58:31Medical Cytology Report Case: [id number] Authorizing Provider: Mauricio Perry, Collected: 08/03/2021 02:35 PM Ordering Location: [facility] Emergency Department Received: 08/04/2021 09:29 AM Pathologist: Genevieve Mendez MD Specimen: Perit cabezas Fluid PERITONEAL FLUID (CYTOSPINS): - NEGATIVE FOR MALIGNANCY Signing Pathologist Direct Phone Line: [phone] signed by Genevieve Mendez MD on 08/04/2021 at 1:58 [id number], history of cirrhosis and ESRD.PERITONEAL FLUIDReceived 1600 mls brown fluid; prepared 4 cytospins. Performed. [facility], Department of Pathology, [address] [place] [address], [facility] of [facility], [address] [place] [address] 104[address], [facility], Department of [facility]ology, [address] [facility] [address], VPYR-GLUCOSE [id number] 12:51:45 Test Item Value Reference Range Interpretation Comments POC-GLUCOSE METER 110 mg/dL 70-110 : TESTED A T [facility] 6720 (BEAKER) (test code = CIERA Sewell [place], 1538) 80474: Scarfer/Techni elsie ID = [id number] for Erma Kingston LACTATE DEHYDROGENASE (LDH), BODY [id number] 09:48:21 Test Item Value Reference Range Interpretation Comments LACTATE DEHYDROGENASE FLUID (BEAKER) 141 U/L (test code = 634) Absence of reference range indicates that normals have not been defined.Assay performance has not been validated for this type of specimen.Scarfer ID - DSENSONPROTEIN, BODY [id number] 09:44:56 Test Item Value Reference Range Interpretation Comments PROTEIN FLUID (BEAKER) (test code = 3.9 g/dL 579) Absence of reference range indicates that normals have not been defined.Assay performance has not been validated for this type of specimen.Scarfer ID - DSENSONBASIC METABOLIC [id number] 06:39:38 Test Item Value Reference Range Interpretation [...] S NOT APPLICABLE FOR DIALYSIS PATIEN TS. Scarfer ID - JORDAN [id number] 06:39:14 Test Item Value Reference Range Interpretation Comments MAGNESIUM (BEAKER) (test code = 2.0 mg/dL 1.6-2.6 627) Scarfer ID - JORDAN MCBC W/PLT COUNT & AUTO [id number] 06:11:35 Test Item Value Reference Range Interpretation [...] PERCENT (BEAKER) (test code = 2801) POCT-GLUCOSE [id number] 22:05:32 Test Item Value Reference Range Interpretation Comments POC-GLUCOSE METER 137 mg/dL 70-110 H : TESTED A T [facility] 6720 (BEAKER) (test code = [place], 1538) 875[address]: Scarfer/Techni elsie ID = [id number] for GINA SALAZAR HEPATITIS B SURFACE [id number] 21:43:34 Test Item Value Reference Range Interpretation Comments HEPATITIS B SURFACE ANTIGEN (2) Nonreactive Nonreactive (BEAKER) (test code = 2585) Specimen is considered negative for HBsAg.BODY FLUID CELL COUNT WITH [id number] 18:09:33 Test Item Value Reference Range Interpretation [...] FLUID (BEAKER) (test code = 2873) POCT-GLUCOSE [id number] 17:22:05 Test Item Value Reference Range Interpretation Comments POC-GLUCOSE METER 117 mg/dL 70-110 H : TESTED A T [facility] 6720 (BEAKER) (test code = CIERA Sewell [facility], 1538) 68117: Scarfer/Techni elsie ID = [id number] for Erma Kingston U/S, [id number] 17:04:00DR STRIBLINGLabs to be ordered:->Body Fluid Culture (w/Gram Stain, C\T\S)Labs to be ordered:->CytologyLabs to be ordered:->Glucose+LDH+ProteinLabs to be ordered:->Cell CountReason for exam:->CHEST PAINReason for exam:->[facility] : 1955 Sex: MFINAL REPORT Ultrasound guided paracentesis Clinical History: Ascites. Sedation: None. Geodetic Engineer: Klaudia Garcia PA-C Supervising Physician: Brady Self MD Technical Account Representative: None. Estimated Blood Loss: < 1 mL. [...] anesthesia was achieved with lidocaine, a 5 Fijian one-step catheter was advanced intothe peritoneal cavity under ultrasound guidance. After completion of drainage, the catheter was removed. There was no evidence of complication. Impression:Successful ultrasound guided paracentesis. Signed: Brady [place] Verified Date/Time: 08/03/2021 17:04:47 Reading Location: [facility] B1 P006J Ultrasound Reading Room SARS-COV2/RT-PCR ([facility])2021-08-03 14:42:37 Test Item Value Reference Range Interpretation Comments SARS-COV2/RT-PCR Negative Negative The SARS-Co V-2 target (test code = nucleic acids a re not [id number]) detected in thi s specimen. Negative result [...] revoked sooner. Fact Sheet for Healthcare Providers: https://www.Rallyware.userfox/Documents/Xpert%20Xpress%20SARS%20CoV-2/Fact%20Sheets/302-3802%20SARS-COV -2%20HEALTHCARE%20PROVIDERS%20FACT%20SHEET.pdf Fact Sheet for Healthcare Patients: https://www.YesGraph/Documents/Xpert %20Xpress%20SARS%20CoV-2/Fact%20Sheets/302-3801%50LZOW-TBM-4%20PATIENT%20FACT%20 SHEET.pdfB-TYPE NATRIURETIC FACTOR (BNP)2021-08-03 12:54:07 Test Item Value Reference Range Interpretation Comments B-TYPE NATRIURETIC PEPTIDE 63552 pg/mL 0-100 H (BEAKER) (test code = 700) Scarfer ID - JOHAN FOperator ID Disha PRADO FHIGH SENSITIVITY TROPONIN I 2021-08-03 12:37:33 Test Item Value Reference Range Interpretation Comments HIGH SENSITIVITY 43 pg/ml See_Comment H [Automated message] TROPONIN I (test code = The system which [id number]) generated this result transmitted ref erence range: <=35. Th e reference range was not used to int erpret this result as normal/abnormal . Scarfer ID Disha PRADO FThe OCEAN FREIGHT AGENT STAT High Sensitivity Troponin-I results should be used in conjunction with other diagnostic information such as ECG, clinical observations and information, and patient symptoms to aid in the diagnosis of [place].COMPREHENSIVE METABOLIC [id number] 12:32:18 Test Item Value Reference Range Interpretation [...] S NOT APPLICABLE FOR DIALYSIS PATIEN TS. Scarfer ID - JOHAN [id number] 12:30:52 Test Item Value Reference Range Interpretation Comments PHOSPHORUS (BEAKER) (test code = 2.6 mg/dL 2.3-4.7 604) Scarfer ID - JOHAN [id number] 12:30:51 Test Item Value Reference Range Interpretation Comments MAGNESIUM (BEAKER) (test code = 2.1 mg/dL 1.6-2.6 627) Scarfer ID - JOHAN FPROTHROMBIN [id number] 12:14:02 Test Item Value Reference Range Interpretation Comments PROTIME (BEAKER) 14.5 seconds 11.9-14.2 H (test code = 759) INR (BEAKER) (test 1.15 See_Comment [Automat ed message] code = 370) The system [employer] generated this result transmitted ref erence range: [...] = 2801) RAD, CHEST, 1 VIEW, NON [id number] 11:47:00DR STRIBLINGReason for exam:- >CHEST PAINReason for exam:->EDEMAShould this be performed at the bedside?->YesPARK SANITARIUMName: TROY FORTE : 1955 Sex: MFINAL REPORT RAD, CHEST, 1 VIEW, NON DEPT INDICATION: CHEST PAINEDEMA COMPARISON: Prior day's exam FINDINGS: Portable frontal view of the chest. IMPRESSION: Support Lines: Pacer device and sternotomy wires. Lungs and pleura: Bilateral effusions and adjacent atelectasis Nosignificant pneumothorax. Heart and mediastinum: Stable contours. Additional findings: None. Signed: Arlet Sr MDReport Verified Date/Time: 08/03/2021 11:47:09 Reading Location: [facility] Radiology Reading Room ALPHA FETOPROTEIN (AFP), TUMOR [id number] 13:27:00 Test Item Value Reference Range Interpretation Comments ALPHA-FETOPROTEIN (BEAKER) (test code < ng/mL <10.0 = 1094) Scarfer ID - PATRICIA CBASI METABOLIC [id number] 13:06:00 Test Item Value Reference Range Interpretation [...] S NOT APPLICABLE FOR DIALYSIS PATIEN TS. Scarfer ID - PATRICIA CHEPATIC FUNCTION [id number] 13:05:00 Test Item Value Reference Range Interpretation [...] (test code = 9 U/L 6-55 347) Scarfer ID - PATRICIA CPROTHROMBIN [id number] 12:40:00 Test Item Value Reference Range Interpretation Comments PROTIME (BEAKER) 13.9 seconds 11.9-14.2 (test code = 759) INR (BEAKER) (test 1.09 See_Comment [Automat ed message] code = 370) The system [employer] generated this result transmitted ref erence range: [...] = 2801) BODY FLUID CULTURE + GRAM [id number] 13:49:00 Test Item Value Reference Range Interpretation Comments CULTURE (BEAKER) (test No growth code = 1095) GRAM STAIN RESULT <1+ White blood cells (BEAKER) (test code = seen 1123) GRAM STAIN RESULT No organisms seen (BEAKER) (test code = 278966) [id number] 18:55:00Medical Cytology Report Case: [id number] Authorizing Provider: Wicho Garcia MD Collected: 06/03/2021 05:57 PM Ordering Location: [place] [address] Dialysis Received: 06/04/2021 10:06 AM Nephrology Service Pathologist: Silvestre Le MD Specimen: Pleural, Right PLEURAL, RIGHT, FLUID (CYTOSPINS): - NEGATIVE FOR MALIGNANCY Signing Pathologist Direct Phone Line: [phone] signed by Silvestre Le MD on 06/05/2021 at 6:55 [id number] pleural effusion; PMH of HTN, HLD, CAD s/p [facility]B at [facility] on 05/18/2019, HFrEF 2/2 ICM with EF 25% s/p ICD, ESRD on iHD, cirrhosis, who presents with dyspnea, worsening BLE edema and genital painPLEURAL, RIGHT, FLUIDReceived 1000 ml bloody fluid; prepared 4 cytospinsPerformed. [facility],Department of [facility]ology, [address] [place] [address], [facility] of [facility]ology, [address] [place] [address], [facility], Department of Pathology, [address] [place] [address], IUZT-GLUCOSE [id number] 13:22:00 Test Item Value Reference Range Interpretation Comments POC-GLUCOSE METER 138 mg/dL 70-110 H : TESTED Lashell Ureña [facility] 6720 (CONRAD) (test code = CIERA Sewell [facility], 1538) [address]: Scarfer/Techni elsie ID = [id number] for EDE GASPAR U/S, [id number] 13:01:00DR STRIBLINGLaterality?->RightReason for exam:->moderate to large pleural effusionLabs to be Ordered:->Body Fluid Culture (w/Gram Stain, C\T\S)Labs to be Ordered:->CytologyLabs to be Ordered :->Cell CountLabs to be Ordered:->Glucose+LDH+Protein [facility]Name[facility]TE : 1955 Sex: MFINAL REPORT Exam: Ultrasound guided thoracentesis Clinical History: Right-sided Pleural Effusion Geodetic Engineer: Michelle Wilson PA-C Supervising Physician: Jose Guadalupe [...] Bernardo Verified Date/Time: 06/05/2021 13:01:06 Reading Location: [facility] P006J Ultrasound Reading Room POCT-GLUCOSE [id number] 08:36:00 Test Item Value Reference Range Interpretation Comments POC-GLUCOSE METER 219 mg/dL 70-110 H : TESTED A T [facility] 6720 (BEAKER) (test code = [place], 1538) [address]: Scarfer/Techni elsie ID = [id number] for EDE GASPAR BASIC METABOLIC [id number] 04:46:00 Test Item Value Reference Range Interpretation [...] S NOT APPLICABLE FOR DIALYSIS PATIEN TS. Scarfer ID - JEVON [id number] 04:45:00 Test Item Value Reference Range Interpretation Comments MAGNESIUM (BEAKER) (test code = 2.1 mg/dL 1.6-2.6 627) Scarfer ID - JEVON [id number] 04:45:00 Test Item Value Reference Range Interpretation Comments PHOSPHORUS (BEAKER) (test code = 2.9 mg/dL 2.3-4.7 604) Scarfer ID - PIAYA LCBC W/PLT COUNT & AUTO [id number] 04:21:00 Test Item Value Reference Range Interpretation [...] PERCENT (BEAKER) (test code = 2801) POCT-GLUCOSE [id number] 22:21:00 Test Item Value Reference Range Interpretation Comments POC-GLUCOSE METER 242 mg/dL 70-110 H : TESTED A T [facility] 6720 (BEAKER) (test code = [facility], 1538) [address]: Scarfer/Techni elsie ID = [id number] for Pee Solorio POCT-GLUCOSE [id number] 12:26:00 Test Item Value Reference Range Interpretation Comments POC-GLUCOSE METER 181 mg/dL 70-110 H : TESTED A T [facility] 6720 (BEAKER) (test code = [facility], 1538) 14[address]: Scarfer/Techni elsie ID = [id number] for IB RAHIM, SERKALEM LACTATE DEHYDROGENASE (LDH), BODY [id number] 10:04:00 Test Item Value Reference Range Interpretation Comments LACTATE DEHYDROGENASE FLUID (BEAKER) 117 U/L (test code = 634) Absence of reference range indicates that normals have not been defined.Assay performance has not been validated for this type of specimen.Scarfer ID - [id number], BODY [id number] 10:01:00 Test Item Value Reference Range Interpretation Comments PROTEIN FLUID (BEAKER) (test code = 3.2 g/dL 579) Absence of reference range indicates that normals have not been defined.Assay performance has not been validated for this type of specimen.Scarfer ID - [id number] [id number] 08:30:00 Test Item Value Reference Range Interpretation Comments POC-GLUCOSE METER 144 mg/dL 70-110 H : TESTED A T [facility] 6720 (BEAKER) (test code = [facility], 1538) 733[address]: Scarfer/Techni elsie ID = [id number] for IB RAHIM, SERKALEM BASIC METABOLIC [id number] 05:13:00 Test Item Value Reference Range Interpretation [...] S NOT APPLICABLE FOR DIALYSIS PATIEN TS. Scarfer ID - [id number] 05:10:00 Test Item Value Reference Range Interpretation Comments MAGNESIUM (BEAKER) (test code = 2.1 mg/dL 1.6-2.6 627) Scarfer ID - [id number] 05:10:00 Test Item Value Reference Range Interpretation Comments PHOSPHORUS (BEAKER) (test code = 5.3 mg/dL 2.3-4.7 H 604) Scarfer ID - BSCBC W/PLT COUNT & AUTO [id number] 04:43:00 Test Item Value Reference Range Interpretation [...] = 2801) BODY FLUID CELL COUNT WITH [id number] 21:44:00 Test Item Value Reference Range Interpretation Comments APPEARANCE FLUID Slightly Bloody Clear A (BEAKER) (test code = 510) COLOR FLUID [place] Colorless, Straw A (BEAKER) (test code = 511) RBC FLUID (BEAKER) 10798 /cu mm See_Comment H [Automat ed (test [...] FLUID (BEAKER) (test code = 2873) POCT-GLUCOSE [id number] 21:31:00 Test Item Value Reference Range Interpretation Comments POC-GLUCOSE METER 181 mg/dL 70-110 H : TESTED A T [facility] 6720 (BEAKER) (test code = [facility], 1538) 69248: Scarfer/Techni elsie ID = [id number] for Gi sset (pca2) Conn POCT-GLUCOSE [id number] 18:30:00 Test Item Value Reference Range Interpretation Comments POC-GLUCOSE METER 167 mg/dL 70-110 H : TESTED A T [facility] 6720 (BEAKER) (test code = [facility], 1538) 759[address]: Scarfer/Techni elsie ID = [id number] for CA STROLUCY RAD, CHEST, 1 VIEW, NON [id number] 18:20:00DR STRIBLINGReason for exam:- >post right sided thoracentesisShould [facility] e?->YesPARK SANITARIUMName: TROY FORTE : 1955 Sex: MFINAL REPORT [...] Russo Verified Date/Time: 06/03/2021 18:20:00 Reading Location: [address] Consult Reading Room POCT-GLUCOSE METER 2021-06-03 11:45:00 Test Item Value Reference Range Interpretation Comments POC-GLUCOSE METER 159 mg/dL 70-110 H : TESTED A T [facility] 6720 (BEAKER) (test code = [facility] [employer] [facility], 1538) 40[address]: Scarfer/Techni elsie ID = [id number] for Junie Gutiérrez POCT-GLUCOSE [id number] 09:28:00 Test Item Value Reference Range Interpretation Comments POC-GLUCOSE METER 163 mg/dL 70-110 H : TESTED A T [facility] 6720 (BEAKER) (test code = [facility] Melodie [facility], 1538) [address]: Scarfer/Techni elsie ID = [id number] for Ra Jennyfer canoia CBC W/PLT COUNT & AUTO [id number] 05:53:00 Test Item Value Reference Range Interpretation [...] (BEAKER) (test code = 2801) BASIC METABOLIC [id number] 05:41:00 Test Item Value Reference Range Interpretation [...] S NOT APPLICABLE FOR DIALYSIS PATIEN TS. Scarfer ID - JORDAN [id number] 05:22:00 Test Item Value Reference Range Interpretation Comments MAGNESIUM (BEAKER) (test code = 2.0 mg/dL 1.6-2.6 627) Scarfer ID - JORDAN [id number] 05:22:00 Test Item Value Reference Range Interpretation Comments PHOSPHORUS (BEAKER) (test code = 4.8 mg/dL 2.3-4.7 H 604) Scarfer ID - JORDAN MSARS-COV2/RT-PCR ([facility])2021-06-03 03:56:00 Test Item Value Reference Range Interpretation Comments SARS-COV2/RT-PCR (test code = Negative Negative 5790659) Negative result for this test determines that [...] the Zapata SARS-CoV-2 assay.Fact Sheet for Healthcare Providers:https://www.[employer].Palmer Hargreaves/tracy/RT SARS-CoV-2 HCP Fact Sheet 51- 255014.pdfFact Sheet for Healthcare Patients:https://www.[employer].[place]mer [place]reaves/tracy/RT SARS-CoV-2 Patient Fact Sheet EN 51-321430E8.pdfPROTHROMBIN TIME/[id number] 01:17:00 Test Item Value Reference Range Interpretation Comments PROTIME (BEAKER) 14.3 seconds 11.9-14.2 H (test code = 759) INR (BEAKER) (test 1.13 See_Comment [Automat ed message] code = 370) The system [employer] generated this result transmitted ref erence range: <=5.90. The reference range was not used to int erpret this result as normal/abnormal . RECOMMENDED COUMADIN/WARFARIN INR THERAPY RANGESSTANDARD DOSE: 2.0 - 3.0 Includes: PROPHYLAXIS forvenous thrombosis, systemic embolization; TREATMENT for venous thrombosis and/or pulmonary embolus.HIGH RISK: Target INR is 2.5-3.5 for patients with mechanical heart valves.POCT-GLUCOSE [id number] 21:22:00 Test Item Value Reference Range Interpretation Comments POC-GLUCOSE METER 150 mg/dL 70-110 H : TESTED A T [facility] 6720 (BEAKER) (test code = [facility] Sewell [facility], 1538) [address]: Scarfer/Techni elsie ID = [id number] for Hoadn Mayo POCT-GLUCOSE [id number] 17:33:00 Test Item Value Reference Range Interpretation Comments POC-GLUCOSE METER 183 mg/dL 70-110 H : Notified RN/MD: (CONRAD) (test code = TESTED AT [facility] 67 1538) [facility], [address]: Scarfer/Techni elsie ID = [id number] for Alexandrea Hernandez POCT-GLUCOSE [id number] 08:46:00 Test Item Value Reference Range Interpretation Comments POC-GLUCOSE METER 143 mg/dL 70-110 H : Notified RN/MD: (ISAACAKER) (test code = TESTED AT [place] [address] 1538) [facility], [address]: Scarfer/Techni elsie ID = [id number] for Alexandrea Hernandez BASIC METABOLIC [id number] 07:12:00 Test Item Value Reference Range Interpretation [...] S NOT APPLICABLE FOR DIALYSIS PATIEN TS. Scarfer ID - JORDAN [id number] 07:04:00 Test Item Value Reference Range Interpretation Comments MAGNESIUM (BEAKER) (test code = 2.1 mg/dL 1.6-2.6 627) Scarfer ID - JORDAN [id number] 07:04:00 Test Item Value Reference Range Interpretation Comments PHOSPHORUS (BEAKER) (test code = 5.7 mg/dL 2.3-4.7 H 604) Scarfer ID - JORDAN MCBC W/PLT COUNT & AUTO [id number] 06:25:00 Test Item Value Reference Range Interpretation [...] PERCENT (BEAKER) (test code = 2801) POCT-GLUCOSE [id number] 21:18:00 Test Item Value Reference Range Interpretation Comments POC-GLUCOSE METER 117 mg/dL 70-110 H : TESTED A T [place] [address] [address]) (test code = [facility], 1538) [address]: Scarfer/Techni elsie ID = [id number] for Hodan Mayo POCT-GLUCOSE [id number] 18:18:00 Test Item Value Reference Range Interpretation Comments POC-GLUCOSE METER 123 mg/dL 70-110 H : Notified RN/MD: (CONRAD) (test code = TESTED AT [place] [address] 1538) [facility], [address]: Scarfer/Techni elsie ID = [id number] for Co christian, Alexandrea POCT-GLUCOSE [id number] 12:40:00 Test Item Value Reference Range Interpretation Comments POC-GLUCOSE METER 169 mg/dL 70-110 H : Notified RN/MD: (CONRAD) (test code = TESTED AT [place] [address] 1538) [facility], [address]: Scarfer/Techni elsie ID = [id number] for Co christian, Alexandrea POCT-GLUCOSE [id number] 08:51:00 Test Item Value Reference Range Interpretation Comments POC-GLUCOSE METER 119 mg/dL 70-110 H : Notified RN/MD: (CONRAD) (test code = TESTED AT [place] [address] 1538) [facility], [address]: Scarfer/Techni elsie ID = [id number] for Co christian, Alexandrea BASIC METABOLIC [id number] 06:37:00 Test Item Value Reference Range Interpretation [...] S NOT APPLICABLE FOR DIALYSIS PATIEN TS. Scarfer ID - MAGEN [id number] 06:34:00 Test Item Value Reference Range Interpretation Comments MAGNESIUM (BEAKER) (test code = 2.1 mg/dL 1.6-2.6 627) Scarfer ID - MAGEN [id number] 06:34:00 Test Item Value Reference Range Interpretation Comments PHOSPHORUS (BEAKER) (test code = 5.1 mg/dL 2.3-4.7 H 604) Scarfer ID Disha MAGEN WCBC W/PLT COUNT & AUTO [id number] 05:46:00 Test Item Value Reference Range Interpretation [...] PERCENT (BEAKER) (test code = 2801) POCT-GLUCOSE [id number] 21:36:00 Test Item Value Reference Range Interpretation Comments POC-GLUCOSE METER 160 mg/dL 70-110 H : TESTED A T [facility] 6720 (BEAKER) (test code = [facility] [employer] [facility], 153) [address]: Scarfer/Techni elsie ID = [id number] for WILMAN BIRD RA POCT-GLUCOSE [id number] 17:16:00 Test Item Value Reference Range Interpretation Comments POC-GLUCOSE METER 151 mg/dL 70-110 H : TESTED A T [facility] 6720 (BEAKER) (test code = [facility] [employer] [facility], 153) [address]: Scarfer/Techni elsie ID = [id number] for CA LUCY BENSON POCT-GLUCOSE [id number] 12:22:00 Test Item Value Reference Range Interpretation Comments POC-GLUCOSE METER 153 mg/dL 70-110 H : TESTED A T [facility] 6720 (BEAKER) (test code = [place], 1538) [address]: Scarfer/Techni elsie ID = [id number] for CA LUCY BENSON BASIC METABOLIC [id number] 04:46:00 Test Item Value Reference Range Interpretation [...] S NOT APPLICABLE FOR DIALYSIS PATIEN TS. Scarfer ID - MAGEN [id number] 04:25:00 Test Item Value Reference Range Interpretation Comments MAGNESIUM (BEAKER) (test code = 2.0 mg/dL 1.6-2.6 627) Scarfer ID - MAGEN [id number] 04:25:00 Test Item Value Reference Range Interpretation Comments PHOSPHORUS (BEAKER) (test code = 4.3 mg/dL 2.3-4.7 604) Scarfer ID - MAGEN WCBC W/PLT COUNT & AUTO [id number] 03:56:00 Test Item Value Reference Range Interpretation [...] PERCENT (BEAKER) (test code = 2801) POCT-GLUCOSE [id number] 21:39:00 Test Item Value Reference Range Interpretation Comments POC-GLUCOSE METER 183 mg/dL 70-110 H : TESTED A T [facility] 6720 (BEAKER) (test code = [facility], 1538) [address]: Scarfer/Techni elsie ID = [id number] for WILMAN BIRD RA POCT-GLUCOSE [id number] 17:38:00 Test Item Value Reference Range Interpretation Comments POC-GLUCOSE METER 145 mg/dL 70-110 H : TESTED A T [facility] 6720 (BEAKER) (test code = [facility], 1538) [address]: Scarfer/Techni elsie ID = [id number] for IB OZ QUEZADALEM POCT-GLUCOSE [id number] 12:58:00 Test Item Value Reference Range Interpretation Comments POC-GLUCOSE METER 122 mg/dL 70-110 H : TESTED A T [facility] 6720 (BEAKER) (test code = [facility], 1538) [address]: Scarfer/Techni elsie ID = [id number] for IB EBENM, SERKALEM BASIC METABOLIC [id number] 06:52:00 Test Item Value Reference Range Interpretation [...] S NOT APPLICABLE FOR DIALYSIS PATIEN TS. Scarfer ID - JORDAN [id number] 06:36:00 Test Item Value Reference Range Interpretation Comments MAGNESIUM (BEAKER) (test code = 2.1 mg/dL 1.6-2.6 627) Scarfer ID - JORDAN [id number] 06:36:00 Test Item Value Reference Range Interpretation Comments PHOSPHORUS (BEAKER) (test code = 5.0 mg/dL 2.3-4.7 H 604) Scarfer ID - JORDAN MCBC W/PLT COUNT & AUTO [id number] 06:13:00 Test Item Value Reference Range Interpretation [...] PERCENT (BEAKER) (test code = 2801) POCT-GLUCOSE [id number] 21:35:00 Test Item Value Reference Range Interpretation Comments POC-GLUCOSE METER 132 mg/dL 70-110 H : TESTED A T [facility] 6720 (BEAKER) (test code = [facility], 153) [address]: Scarfer/Techni elsie ID = [id number] for WILMAN BIRD RA POCT-GLUCOSE [id number] 17:32:00 Test Item Value Reference Range Interpretation Comments POC-GLUCOSE METER 140 mg/dL 70-110 H : TESTED A T [facility] 6720 (BEAKER) (test code = [facility], 153) [address]: Scarfer/Techni elsie ID = [id number] for IB RAHIM, SERKALEM POCT-GLUCOSE [id number] 11:19:00 Test Item Value Reference Range Interpretation Comments POC-GLUCOSE METER 159 mg/dL 70-110 H : TESTED A T [facility] 6720 (BEAKER) (test code = [facility], 153) [address]: Scarfer/Techni elsie ID = [id number] for IB RAHIM, SERKALEM BASIC METABOLIC [id number] 08:10:00 Test Item Value Reference Range Interpretation [...] S NOT APPLICABLE FOR DIALYSIS PATIEN TS. Scarfer ID - DAREK [id number] 08:05:00 Test Item Value Reference Range Interpretation Comments MAGNESIUM (BEAKER) (test code = 1.9 mg/dL 1.6-2.6 627) Scarfer ID - DAREK [id number] 08:05:00 Test Item Value Reference Range Interpretation Comments PHOSPHORUS (BEAKER) (test code = 4.3 mg/dL 2.3-4.7 604) Scarfer ID - DAREK MPOCT-GLUCOSE [id number] 07:57:00 Test Item Value Reference Range Interpretation Comments POC-GLUCOSE METER 144 mg/dL 70-110 H : TESTED A T [facility] 6720 (BEAKER) (test code = [facility] [place], 1538) [address]: Scarfer/Techni elsie ID = [id number] for FAHAD CASTAÑEDA CBC W/PLT COUNT & AUTO [id number] 07:45:00 Test Item Value Reference Range Interpretation [...] PERCENT (BEAKER) (test code = 2801) POCT-GLUCOSE [id number] 21:17:00 Test Item Value Reference Range Interpretation Comments POC-GLUCOSE METER 162 mg/dL 70-110 H : TESTED A T [facility] 6720 (BEAKER) (test code = [facility], 1538) [address]: Scarfer/Techni elsie ID = [id number] for Hodan Mayo POCT-GLUCOSE [id number] 17:43:00 Test Item Value Reference Range Interpretation Comments POC-GLUCOSE METER 129 mg/dL 70-110 H : TESTED A T [facility] 6720 (BEAKER) (test code = [facility], 1538) [address]: Scarfer/Techni elsie ID = [id number] for So Edwin pop U/S, [id number] 15:28:00DR STRIBLINGLabs to be ordered:->Body Fluid Culture (w/Gram Stain, C\T\S)Labs to be ordered:->G lucose+LDH+ProteinLabs to be ordered:->Cell CountLabs to be ordered:- >CytologyReason for exam:->ascites [facility] : 1955 Sex: MFINAL REPORT Ultrasound guided paracentesis Clinical History: Ascites. Sedation: None. Geodetic Engineer: Michelle Wilson PA-C Supervising Physician: Scott Alcazar MD Technical Account Representative: None. Estimated Blood Loss: < 1 mL. [...] anesthesia was achieved with lidocaine, a 5 Fijian one-step catheter was advanced into the peritoneal cavity under ultrasound guidance. After completion of drainage, the catheter was removed. There was no evidence of complication. Impression:Successful ultrasound guided paracentesis. Signed: Scott Alcazar MDReport Verified Date/Time: 05/28/2021 15:28:45 Reading Location: [facility] B1 P006J Ultrasound Reading Room RAD, CHEST, 1 VIEW, NON [id number] 12:52:00DR STRIBLINGReason for exam:->interval change, pleural effusionShould this be performed at the bedside?->Yes [facility] : 1955 Sex: MFINAL REPORT [...] MDReport Verified Date/Time: 05/28/2021 12:52:22 Reading Location: [facility] Diagnostic Imaging Reading Room - [facility] F1 1129 POCT-GLUCOSE [id number] 12:06:00 Test Item Value Reference Range Interpretation Comments POC-GLUCOSE METER 157 mg/dL 70-110 H : TESTED A T [facility] 6720 (BEAKER) (test code = [facility] Sewell [facility], 1538) [address]: Scarfer/Techni elsie ID = [id number] for Yuki cai (pca2), Shayna BODY FLUID CULTURE + GRAM [id number] 09:41:00 Test Item Value Reference Range Interpretation Comments CULTURE (BEAKER) (test code No growth = 1095) GRAM STAIN RESULT (BEAKER) 1+ WBCs (test code = 1123) GRAM STAIN RESULT (BEAKER) No organisms seen (test code = 49541) POCT-GLUCOSE [id number] 08:28:00 Test Item Value Reference Range Interpretation Comments POC-GLUCOSE METER 123 mg/dL 70-110 H : Notified RN/MD: (AKER) (test code = TESTED AT [facility] 6720 1538) [facility], [address]: Scarfer/Techni elsie ID = [id number] for Yuki derasli (pca2), [place] [id number] 08:10:00 Test Item Value Reference Range Interpretation Comments MAGNESIUM (BEAKER) (test code = 1.8 mg/dL 1.6-2.6 627) Scarfer ID - PATRICIA CBASIC METABOLIC [id number] 07:50:00 Test Item Value Reference Range Interpretation [...] S NOT APPLICABLE FOR DIALYSIS PATIEN TS. Scarfer ID - PIAYA [id number] 07:35:00 Test Item Value Reference Range Interpretation Comments PHOSPHORUS (BEAKER) (test code = 5.7 mg/dL 2.3-4.7 H 604) Scarfer ID - PIROSS LCBC W/PLT COUNT & AUTO [id number] 07:06:00 Test Item Value Reference Range Interpretation [...] 417) IMMATURE GRANULOCYTES-RELATIVE 1 % 0-1 PERCENT (AKER) (test code = 2801) POCT-GLUCOSE [id number] 21:19:00 Test Item Value Reference Range Interpretation Comments POC-GLUCOSE METER 126 mg/dL 70-110 H : TESTED A T [place] [address] ([facility]) (test code = [facility], 1538) [address]: Scarfer/Techni elsie ID = [id number] for Arlet Yanes POCT-GLUCOSE [id number] 18:22:00 Test Item Value Reference Range Interpretation Comments POC-GLUCOSE METER 164 mg/dL 70-110 H : Notified RN/MD: (CONRAD) (test code = TESTED AT [place] [address] 1538) [facility], [address]: Scarfer/Techni elsie ID = [id number] for Yuki caballero (pca2), [place] POCT-GLUCOSE [id number] 13:51:00 Test Item Value Reference Range Interpretation Comments POC-GLUCOSE METER 114 mg/dL 70-110 H : Notified RN/MD: (CONRAD) (test code = TESTED AT [place] [address] 1538) [facility], [address]: Scarfer/Techni elsie ID = [id number] for Yuki caballero (pca2), [place] [id number] 11:15:00Medical Cytology Report Case: [id number] Authorizing Provider: Rome Bhatti MD Collected: 05/26/2021 10:25 AM Ordering Location: [facility] Emergency Department Received: 05/26/2021 01:28 PM Pathologist: Silvestre Le MD Specimen: Peritoneal Fluid PERITONEAL FLUID (CYTOSPINS AND CELL BLOCK): -NEGATIVE FOR MALIGNANCY Signing Pathologist Direct Phone Line: Reactive mesothelial cells are present.74279, 38265Jqatcyc; history of chronic systolic/diastolic heart failure, cirrhosis, DM, hypothyroidism, HLD, chronic hypotension, CAD, chronic anemia, ESRD presented with abdominal distension, decreased uop, burning of foreskin and penisPERITONEAL FLUIDReceived 1500 ml clear, yellow fluid; prepared 4 cytospins and cell block(A2) - cell block prepared using a collodion bag andfixed in formalin at 5:02 pm on 05/26/21Performed. [facility], Department of Pathology, [address] [place] [address], [facility], Department of Pathology, [address] [place] [address], [facility], Department of Pathology, [address] [place] [address], MCDGWKX DEHYDROGENASE (LDH), BODY [id number] 10:45:00 Test Item Value Reference Range Interpretation Comments LACTATE DEHYDROGENASE FLUID (BEAKER) 123 U/L (test code = 634) Absence of reference range indicates that normals have not been defined.Assay performance has not been validated for this type of specimen.Scarfer ID - [id number], BODY [id number] 10:41:00 Test Item Value Reference Range Interpretation Comments PROTEIN FLUID (BEAKER) (test code = 5.4 g/dL 579) Absence of reference range indicates that normals have not been defined.Assay performance has not been validated for this type of specimen.Scarfer ID - [id number]-KBIHFIN [id number] 09:21:00 Test Item Value Reference Range Interpretation Comments POC-GLUCOSE METER 134 mg/dL 70-110 H : TESTED A T [facility] 6720 (BEAKER) (test code = [facility] Melodie [facility], 1538) [address]: Scarfer/Techni elsie ID = [id number] for LUCY GIRON BASIC METABOLIC [id number] 07:43:00 Test Item Value Reference Range Interpretation [...] S NOT APPLICABLE FOR DIALYSIS PATIEN TS. Scarfer ID - AMGEN [id number] 07:42:00 Test Item Value Reference Range Interpretation Comments MAGNESIUM (BEAKER) (test code = 2.0 mg/dL 1.6-2.6 627) Scarfer ID - MAGEN [id number] 07:42:00 Test Item Value Reference Range Interpretation Comments PHOSPHORUS (BEAKER) (test code = 4.4 mg/dL 2.3-4.7 604) Scarfer ID Disha US WCBC W/PLT COUNT & AUTO [id number] 06:55:00 Test Item Value Reference Range Interpretation [...] PERCENT (BEAKER) (test code = 2801) POCT-GLUCOSE [id number] 21:47:00 Test Item Value Reference Range Interpretation Comments POC-GLUCOSE METER 138 mg/dL 70-110 H : TESTED A T [facility] 6720 (BEAKER) (test code = [place], 1538) [address]: Scarfer/Techni elsie ID = [id number] for La cy (pca2), Husseini a PTH, [id number] 19:07:00 Test Item Value Reference Range Interpretation Comments PARATHYROID HORMONE INTACT 396.3 pg/mL 8.5-72.5 H (BEAKER) (test code = 577) Scarfer ID - BSPOCT-GLUCOSE [id number] 17:30:00 Test Item Value Reference Range Interpretation Comments POC-GLUCOSE METER 71 mg/dL 70-110 : TESTED A T [facility] 6720 (BEAKER) (test code = CIERA Sewell [facility], 1538) [address]: Scarfer/Techni elsie ID = [id number] for Rosario ano, Edwin [id number] 17:28:00 Test Item Value Reference Range Interpretation Comments FERRITIN (BEAKER) (test code = 1901.90 ng/mL 5.00-275.00 H 361) Scarfer ID - BSPOCT-GLUCOSE [id number] 17:18:00 Test Item Value Reference Range Interpretation Comments POC-GLUCOSE METER 63 mg/dL 70-110 L : TESTED A T [facility] 6720 (BEAKER) (test code = CIERA Sewell [facility], 1538) [address]: Scarfer/Techni elsie ID = [id number] for Rosario ano, Edwin IRON, TIBC, % SAT. (WITHOUT FERRITIN)2021-05-26 17:00:00 Test Item Value Reference Range Interpretation Comments IRON (BEAKER) (test code = 547) 44.0 ug/dL 40.0-160.0 TOTAL IRON BINDING CAPACITY 136 ug/dL 250-450 L (BEAKER) (test code = 769) IRON % SATURATION (2) (BEAKER) 32 % 20-55 (test code = 2590) Scarfer ID - BSHEPATITIS B SURFACE [id number] 14:17:00 Test Item Value Reference Range Interpretation Comments HEPATITIS B SURFACE ANTIGEN (2) Nonreactive Nonreactive (BEAKER) (test code = 2585) Specimen is considered negative for HBsAg.BODY FLUID CELL COUNT WITH [id number] 13:17:00 Test Item Value Reference Range Interpretation [...] (test code = The sy stem which 1691) generated this result transmit nova reference [...] Cup (BEAKER) (test code = 2873) POCT-GLUCOSE [id number] 12:41:00 Test Item Value Reference Range Interpretation Comments POC-GLUCOSE METER 76 mg/dL 70-110 : TESTED A T [facility] 6720 (BEAKER) (test code = [facility], 1538) [address]: Scarfer/Techni elsie ID = [id number] for Greg bateman (pca2)Aleksandra POCT-GLUCOSE [id number] 07:29:00 Test Item Value Reference Range Interpretation Comments POC-GLUCOSE METER 90 mg/dL 70-110 : TESTED A T [facility] 6720 (BEAKER) (test code = [facility], 1538) [address]: Scarfer/Techni elsie ID = [id number] for Marisela ette, Ariel [id number] 05:33:00 Test Item Value Reference Range Interpretation Comments MAGNESIUM (BEAKER) (test code = 2.2 mg/dL 1.6-2.6 627) Scarfer ID - JORDAN [id number] 05:33:00 Test Item Value Reference Range Interpretation Comments PHOSPHORUS (BEAKER) (test code = 6.0 mg/dL 2.3-4.7 H 604) Scarfer ID - JORDAN MBASIC METABOLIC [id number] 05:33:00 Test Item Value Reference Range Interpretation [...] S NOT APPLICABLE FOR DIALYSIS PATIEN TS. Scarfer ID - JORDAN MCBC W/PLT COUNT & AUTO [id number] 05:27:00 Test Item Value Reference Range Interpretation [...] PERCENT (BEAKER) (test code = 2801) SARS-COV2/RT-PCR ([facility])2021-05-26 03:02:00 Test Item Value Reference Range Interpretation Comments SARS-COV2/RT-PCR Negative Negative The SARS-Co V-2 target (test code = 1372139) nuclei c acids are not detected in [...] SARS-CoV-2/Flu/RSV by their healthcare provider. Results from [facility] Xpert Xpress SARS-CoV-2/Flu/RSV test should be [...] of the Act.Fact Sheet for Healthcare Providers :https://www.YesGraph/Documents/Xpert%20Xpress%20SARS%20CoV-2/Fact%20Sheets/3 02-3902%07CBKF-KSP-0%20HEALTHCARE%20PROVIDERS%20FACT%20SHEET.pdfFact Sheet for Healthcare Patients:https://www.YesGraph /Documents/Xpert%20Xpress%20SARS%20Cov-2/Fact%20Sheets/302-3801%91VUCF-TAW-9%20P ATIENT%20FACT%20SHEET.pdfRAD, CHEST, 1 VIEW, NON [id number] 22:32:00DR STRIBLINGReason for exam:->shortness of breathShould this be performed at the bedside?->YesPAR[facility] : 1955 Sex: MFINAL REPORT [...] MDReport Verified Date/Time: 05/25/2021 22:32:46 Reading Location: [address] Consult Reading Room CT, [id number] 21:35:00DR STRIBLINGUnlisted Reason for Exam - Click Yes and Enter Reason Below->NoWill this procedure require oral contrast?->NoPARK SANIT[facility]UMName: [facility] : 1955 Sex: MFINAL REPORT [...] evaluation with HIDA scan. Signed: Marya Arredondo [facility] Verified Date/Time: 05/25/2021 21:35:09 [id number] 19:39:00 Test Item Value Reference Range Interpretation Comments LIPASE (BEAKER) (test code = 749) 19 U/L 8-78 Scarfer ID - DBCOMPREHENSIVE METABOLIC [id number] 19:39:00 Test Item Value Reference Range Interpretation [...] S NOT APPLICABLE FOR DIALYSIS PATIEN TS. Scarfer ID - DBOperator ID - DBB-TYPE NATRIURETIC FACTOR (BNP)2021-05-25 19:34:00 Test Item Value Reference Range Interpretation Comments B-TYPE NATRIURETIC PEPTIDE 42506 pg/mL 0-100 H (BEAKER) (test code = 700) Scarfer ID - dbOperator ID - dbHIGH SENSITIVITY TROPONIN [id number] 19:13:00 Test Item Value Reference Range Interpretation Comments HIGH SENSITIVITY 54 pg/ml See_Comment H [Automated message] TROPONIN I (test code = The system which 6792260) generated this result transmitted ref erence range: <=35. Th e reference range was not used to int erpret this result as normal/abnormal . Scarfer ID - dbThe OCEAN FREIGHT AGENT STAT High Sensitivity Troponin-I results should be used in conjunctionwith other diagnostic information such as ECG, clinical observations and information, and patient symptoms to aid in the diagnosis of [place].PT/[id number] 19:08:00 Test Item Value Reference Range Interpretation [...] for patients with mechanical heart valves.HEPATIC FUNCTION [id number] 19:07:00 Test Item Value Reference Range Interpretation [...] (test code = 8 U/L 6-55 347) Scarfer ID - DBCBC W/PLT COUNT & AUTO [id number] 18:55:00 Test Item Value Reference Range Interpretation [...] 0-1 PERCENT (BEAKER) (test code = 2801) [id number] 16:39:00 Test Item Value Reference Range Interpretation Comments GLUBED (test code = 104 MG/DL 70-110 N 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 [facility] - XR FLUOROSCOPY 0-60 [id number] 15:03:00 [facility] 1955 Sex: M FAX: Espinoza Santillan MD [phone] [place]: St: REG Name: TROY FORTE RUANO [facility] : 1955 Age/S: 65/M [address] [place] [address] Unit #: [id number] Loc: [place] [address] Phys: Espinoza Villagran MD Acct: [id number] Dis Date: Status: REG [facility] PHONE #: [phone] Exam Date: 12/19/2020 [facility]5 FAX #: [phone] Reason: LUE FISTULA MALFUNCTION EXAMS: CPT CODE: [id number] XR FLUOROSCOPY0-60 MIN 64667 Study: - XR FLUOROSCOPY 0-60 MIN 12/19/2020 2:00 PM Patient Name: TROY FORTE MR: [id number] DATE: 12/19/2020 2:00 PM : 1955; Age: 65 years y/o Male Ordering Physician: Espinoza Villagran MD Clinical Indication: LUE FISTULA MALFUNCTION Intraprocedural fluoroscopy wasprovided by the Department of Radiology. Any images obtained were interpreted by the surgeon intraoperatively. Fluoroscopy time: 18 seconds Reference Air Kerma: 1.3 mGy SL: [id number] at 1503 Reported and signed by: Ar Coffman D.O. CC: Espinoza Villagran MD Technologist: RT Naren(R) Trnscrd Date/Time/By: 12/19/2020 (3337) : By:[email or web address] Orig Print D/T: S: 12/19/2020 (4433) PAGE 1 Signed ReportBASIC METABOLIC PANEL 2020-12-19 [...] 8.8 mg/dL 8.0-10.5 N CA) CBC W/AUTO [id number] 10:45:00 Test Item Value Reference Range Interpretation [...] NO = MDIFF) - XR CHEST 1 [id number] 10:42:00 [facility] : 1955 Sex: M FAX: Espinoza Santillan MD [phone] [place]: St: REG Name: TROY FORTE [facility] : 1955 Age/S: 65/M [address] [place] [address] Unit #: [id number] Loc: [place] [address] Phys: Espinoza Villagran MD Acct: [id number] Dis Date: Status: REG [facility] PHONE #: [phone] Exam Date: 12/19/20201 FAX #: [phone] Reason: PRE PROCEDURE EXAMS: CPT CODE: [id number] XR CHEST 1 V 19962 Study: - XR CHEST 1 V 12/19/2020 9:13 AM Patient Name: TROY FORTE MR: [id number] : 1955; Age: 65 years y/o Male [...] congestion and small bilateral pleural effusions. SL: [id number] at 1042 Reported and signed by: Tr Ly M.D. CC: Espinoza Villagran MD Technologist: Bren Quinonez RT(R) Trnscrd Date/Time/By: 12/19/2020 (6523) : By: [email or web address] Orig Print D/T: S: 12/19/2020 (4651) PAGE 1 Signed ReportCBC W/AUTO [id number] 10:41:00 Test Item Value Reference Range Interpretation [...] code = MDIFF) COVID 19 Asymptomatic IH [id number] 10:40:00 Test Item Value Reference Range Interpretation [...] Interpretation Comments SCAN RESULT (test code = 3074894) ALBUMIN PERITONEAL [id number] 11:32:00 Test Item Value Reference Range Interpretation Comments ALBUMIN, PERITONEAL FLUID (BEAKER) 2.4 g/dL (test code = 9728452) This test was performed at [facility], [facility].Reference range is not defined and interpretation must be performed in the consideration of the pathophysiology of the analyte and the clinical context.POCT-GLUCOSE METER 2020-11-21 11:23:00 Test Item Value Reference Range Interpretation Comments POC-GLUCOSE METER 175 mg/dL 70-110 H : TESTED A T [facility] 6720 (BEAKER) (test code = [place], 1538) [address]: Scarfer/Techni elsie ID = [id number] for IB CRISPIN QUEZADAM HEPATIC FUNCTION [id number] 10:08:00 Test Item Value Reference Range Interpretation [...] (test code = 7 U/L 6-55 347) Scarfer ID - EDASIPOCT-GLUCOSE [id number] 08:18:00 Test Item Value Reference Range Interpretation Comments POC-GLUCOSE METER 130 mg/dL 70-110 H : TESTED A T [facility] 6720 (BEAKER) (test code = [place], 1538) [address]: Scarfer/Techni elsie ID = [id number] for IB FAHAD QUEZADA BASIC METABOLIC [id number] 07:17:00 Test Item Value Reference Range Interpretation [...] S NOT APPLICABLE FOR DIALYSIS PATIEN TS. Scarfer ID - [id number] 07:16:00 Test Item Value Reference Range Interpretation Comments MAGNESIUM (BEAKER) (test code = 2.0 mg/dL 1.6-2.6 627) Scarfer ID - ADMINCBC (HEMOGRAM ONLY)2020-11-21 06:55:00 Test [...] = 413) RAD, CHEST, 1 VIEW, NON [id number] 00:39:00Reason for exam:->SICD implantShould this be performed at the bedside?->Yes [facility] 1955 Sex: MFINAL REPORT [...] PATEL MD on 11/21/2020 12:39 AMPOCT- GLUCOSE [id number] 21:44:00 Test Item Value Reference Range Interpretation Comments POC-GLUCOSE METER 173 mg/dL 70-110 H : TESTED A T [facility] 6720 (BEAKER) (test code = [facility], 1538) [address]: Scarfer/Techni elsie ID = [id number] for WILMAN BIRD RA POCT-GLUCOSE [id number] 18:37:00 Test Item Value Reference Range Interpretation Comments POC-GLUCOSE METER 157 mg/dL 70-110 H : TESTED A T [facility] 6720 (BEAKER) (test code = [facility], 1538) [address]: Scarfer/Techni elsie ID = [id number] for RICARDO COOK POCT-GLUCOSE [id number] 17:03:00 Test Item Value Reference Range Interpretation Comments POC-GLUCOSE METER 151 mg/dL 70-110 H : TESTED A T [facility] 6720 (BEAKER) (test code = [facility], 1538) [address]: Scarfer/Techni elsie ID = [id number] for CORI NAVA BLOOD GAS, [id number] 14:46:00 Test Item Value Reference Range Interpretation [...] (test code = 1819) 100.0 SODIUM NA-STAT [id number] 14:46:00 Test Item Value Reference Range Interpretation Comments SODIUM (BEAKER) (test code = 381) 133 meq/L 136-145 L POTASSIUM-STAT [id number] 14:46:00 Test Item Value Reference Range Interpretation Comments POTASSIUM (BEAKER) (test code = 3.3 meq/L 3.6-5.5 L 379) GLUCOSE-STAT [id number] 14:46:00 Test Item Value Reference Range Interpretation Comments GLUCOSE RANDOM (BEAKER) (test code 143 mg/dL 70-110 H = 652) HGB/HCT (H&H) - STAT [id number] 14:46:00 Test Item Value Reference Range Interpretation Comments HEMOGLOBIN (BEAKER) (test code = 7.3 GM/DL 13.0-16.8 L 410) HEMATOCRIT (BEAKER) (test code = 21.0 % 40.0-50.0 L 411) BODY FLUID CULTURE + GRAM [id number] 12:24:00 Test Item Value Reference Range Interpretation Comments CULTURE (BEAKER) (test code No growth = 1095) GRAM STAIN RESULT (BEAKER) 1+ WBCs (test code = 1123) GRAM STAIN RESULT (BEAKER) No organisms seen (test code = 81635) POCT-GLUCOSE [id number] 09:22:00 Test Item Value Reference Range Interpretation Comments POC-GLUCOSE METER 156 mg/dL 70-110 H : Notified RN/MD: (BEAKER) (test code = TESTED AT [facility] 6355 1548) [facility], [address]: Scarfer/Techni elsie ID = [id number] for AN RICARDO DAUGHERTY PROTHROMBIN TIME/[id number] 04:26:00 Test Item Value Reference Range Interpretation [...] valves.Within 24 hours, if on CoumadinBASIC METABOLIC [id number] 04:13:00 Test Item Value Reference Range Interpretation [...] S NOT APPLICABLE FOR DIALYSIS PATIEN TS. Scarfer ID - PIROSS [id number] 04:03:00 Test Item Value Reference Range Interpretation Comments MAGNESIUM (BEAKER) (test code = 2.0 mg/dL 1.6-2.6 627) Scarfer ID - PIROSS LCBC (HEMOGRAM ONLY)2020-11-20 03:55:00 Test Item Value [...] 753) MEAN CORPUSCULAR HEMOGLOBIN 27.5 pg 25.7-32.2 (AKER) (test code = 751) MEAN CORPUSCULAR HEMOGLOBIN CONC 30.4 GM/DL 32.3-36.5 L (AKER) (test code = 752) RED CELL DISTRIBUTION WIDTH 16.6 % 11.6-14.4 H ([facility]) (test code = 412) PLATELET COUNT ([facility]) (test 240 K/CU MM 150-450 code = 756) MEAN PLATELET VOLUME (AKER) 10.1 fL 9.4-12.4 (test code = 754) NUCLEATED RED BLOOD CELLS 0 /100 WBC 0-[address] ([facility]) (test code = 413) POCT-GLUCOSE [id number] 21:13:00 Test Item Value Reference Range Interpretation Comments POC-GLUCOSE METER 222 mg/dL 70-110 H : TESTED A [facility] 67[address] ([facility]) (test code = [facility], 153) [address]: Scarfer/Techni elsie ID = [id number] for WILMAN BIRD RA POCT-GLUCOSE [id number] 17:48:00 Test Item Value Reference Range Interpretation Comments POC-GLUCOSE METER 205 mg/dL 70-110 H : Notified RN/MD: ([facility]) (test code = TESTED AT [place] [address] 153) [facility], [address]: Scarfer/Techni elsie ID = [id number] for AN RICARDO DAUGHERTY POCT-GLUCOSE [id number] 12:22:00 Test Item Value Reference Range Interpretation Comments POC-GLUCOSE METER 196 mg/dL 70-110 H : Notified RN/MD: ([facility]) (test code = TESTED AT [place] [address] 153) [facility], [address]: Scarfer/Techni elsie ID = [id number] for RICARDO COOK POCT-GLUCOSE [id number] 08:52:00 Test Item Value Reference Range Interpretation Comments POC-GLUCOSE METER 166 mg/dL 70-110 H : TESTED A [facility] 67[address] ([facility]) (test code = [facility], 153) [address]: Scarfer/Techni elsie ID = [id number] for Junie Gutiérrez POCT-GLUCOSE [id number] 08:52:00 Test Item Value Reference Range Interpretation Comments POC-GLUCOSE METER 176 mg/dL 70-110 H : TESTED A T [facility] 6720 (BEAKER) (test code = CIERA Sewell [facility], 1538) [address]: Scarfer/Techni elsie ID = [id number] for Junie Gutiérrez POCT-GLUCOSE [id number] 08:39:00 Test Item Value Reference Range Interpretation Comments POC-GLUCOSE METER 144 mg/dL 70-110 H : Notified RN/MD: (BEAKER) (test code = TESTED AT [facility] 6720 1538) HAILEE [facility], [address]: Scarfer/Techni elsie ID = [id number] for RICARDO COOK BASIC METABOLIC [id number] 07:50:00 Test Item Value Reference Range Interpretation [...] S NOT APPLICABLE FOR DIALYSIS PATIEN TS. Scarfer ID - [id number] 07:46:00 Test Item Value Reference Range Interpretation Comments MAGNESIUM (BEAKER) (test code = 2.0 mg/dL 1.6-2.6 627) Scarfer ID - BENYHEPATIC FUNCTION [id number] 07:46:00 Test Item Value Reference Range Interpretation [...] (test code = 9 U/L 6-55 347) Scarfer ID - JOSHUASONB-TYPE NATRIURETIC FACTOR (BNP)2020-11-19 07:44:00 Test Item Value Reference Range Interpretation Comments B-TYPE NATRIURETIC PEPTIDE 4442 pg/mL 0-100 H (BEAKER) (test code = 700) Scarfer ID - EMERSONCBC (HEMOGRAM ONLY)2020-11-19 07:14:00 Test [...] 0-0 (BEAKER) (test code = 413) POCT-GLUCOSE [id number] 23:22:00 Test Item Value Reference Range Interpretation Comments POC-GLUCOSE METER 132 mg/dL 70-110 H : TESTED A T [facility] 6720 (BEAKER) (test code = [facility], 1538) [address]: Scarfer/Techni elsie ID = [id number] for NO OR ABISAI BROWN POCT-GLUCOSE [id number] 17:45:00 Test Item Value Reference Range Interpretation Comments POC-GLUCOSE METER 259 mg/dL 70-110 H : TESTED A T [facility] 6720 (BEAKER) (test code = [facility], 1538) [address]: Scarfer/Techni elsie ID = [id number] for Ra cano Junie T4, [id number] 09:08:00 Test Item Value Reference Range Interpretation Comments FREE T4 (BEAKER) (test code = 655) 0.62 ng/dL 0.70-1.48 L Scarfer ID - JORDAN MTSH/FREE T4 IF [id number] 08:03:00 Test Item Value Reference Range Interpretation Comments THYROID STIMULATING HORMONE 7.177 uIU/mL 0.350-4.940 H (BEAKER) (test code = 772) Scarfer ID - JORDAN MBASIC METABOLIC [id number] 07:42:00 Test Item Value Reference Range Interpretation [...] S NOT APPLICABLE FOR DIALYSIS PATIEN TS. Scarfer ID - JORDAN [id number] 07:41:00 Test Item Value Reference Range Interpretation Comments MAGNESIUM (BEAKER) (test code = 1.9 mg/dL 1.6-2.6 627) Scarfer ID - JORDAN MHEPATIC FUNCTION [id number] 07:41:00 Test Item Value Reference Range Interpretation [...] (test code = 11 U/L 6-55 347) Scarfer ID - JORDAN MCBC (HEMOGRAM ONLY)2020-11-18 06:18:00 [...] 0-0 (BEAKER) (test code = 413) POCT-GLUCOSE [id number] 00:01:00 Test Item Value Reference Range Interpretation Comments POC-GLUCOSE METER 164 mg/dL 70-110 H : [facility] 67[facility] (BEAKER) (test code = [facility], 1538) [address]: Scarfer/Techni elsie ID = [id number] for LAURA OR ABISAI BROWN JONE POCT-GLUCOSE [id number] 17:28:00 Test Item Value Reference Range Interpretation Comments POC-GLUCOSE METER 247 mg/dL 70-110 H : TESTED A T [facility] 6720 (BEAKER) (test code = [facility], 1538) [address]: Scarfer/Techni elsie ID = [id number] for EDE GASPAR [id number] 15:35:00Medical Cytology Report Case: [id number] Authorizing Provider: Arben Cantor MD Collected: 11/16/2020 11:50 AM Ordering Location: [address] Received: 11/17/2020 09:32 AM Service Pathologist: Silvestre Le MD Specimen: Perit cabezas Fluid PERITONEAL FLUID (CYTOPSPINS): - NEGATIVE FOR MALIGNANCY Signing Pathologist Direct Phone Line: [phone] signed by Silvestre Le MD on 11/17/2020 at 3:35 [id number], CHFPERITONEAL [id number] mls madina fluid; 4 cytospinsPerformed. [facility] [place], [facility] of [place]ology, [address] [place] [address], [facility], Department of Pathology, [address] [place] [address], [facility], Department of Pathology, [address] [place] [address], ZGRO-NUCLEAR ANTIBODY (SANTANA)2020-11-17 15:14:00 Test Item Value Reference Range Interpretation Comments ANTI-NUCLEAR ANTIBODY (SANTANA) (BEAKER) Negative Negative (test code = 418) Test performed by IFA method.Test performed by IFA method.PROTEIN, TOTAL, PERITONEAL [id number] 15:08:00 Test Item Value Reference Range Interpretation Comments PROTEIN, TOTAL, PERITONEAL FLUID 5.2 g/dL (BEAKER) (test code = 4662755) POCT-GLUCOSE [id number] 12:05:00 Test Item Value Reference Range Interpretation Comments POC-GLUCOSE METER 187 mg/dL 70-110 H : TESTED A T [facility] 6720 (BEAKER) (test code = [facility], 1538) 73363: Scarfer/Techni elsie ID = [id number] for EDE GASPAR POCT-GLUCOSE [id number] 08:00:00 Test Item Value Reference Range Interpretation Comments POC-GLUCOSE METER 202 mg/dL 70-110 H : TESTED A T [facility] 6720 (BEAKER) (test code = [facility], 1538) 77299: Scarfer/Techni elsie ID = [id number] for EDE GASPAR BASIC METABOLIC [id number] 06:49:00 Test Item Value Reference Range Interpretation [...] S NOT APPLICABLE FOR DIALYSIS PATIEN TS. Scarfer ID - [id number] 06:46:00 Test Item Value Reference Range Interpretation Comments MAGNESIUM (BEAKER) (test code = 1.9 mg/dL 1.6-2.6 627) Scarfer ID - [id number] 06:46:00 Test Item Value Reference Range Interpretation Comments PHOSPHORUS (BEAKER) (test code = 6.9 mg/dL 2.3-4.7 H 604) Scarfer ID - EDASIHEPATIC FUNCTION [id number] 06:46:00 Test Item Value Reference Range Interpretation [...] (test code = 10 U/L 6-55 347) Scarfer ID - EDASIPTH, [id number] 06:40:00 Test Item Value Reference Range Interpretation Comments PARATHYROID HORMONE INTACT 540.2 pg/mL 8.5-72.5 H (BEAKER) (test code = 577) Scarfer ID - DBCBC W/PLT COUNT & AUTO [id number] 06:23:00 Test Item Value Reference Range Interpretation [...] PERCENT (BEAKER) (test code = 2801) POCT-GLUCOSE [id number] 22:19:00 Test Item Value Reference Range Interpretation Comments POC-GLUCOSE METER 233 mg/dL 70-110 H : TESTED A T [facility] 6720 (BEAKER) (test code = CIERA Sewell [facility], 1538) [address]: Scarfer/Techni elsie ID = [id number] for Emmanuel Moreno POCT-GLUCOSE [id number] 17:34:00 Test Item Value Reference Range Interpretation Comments POC-GLUCOSE METER 179 mg/dL 70-110 H : Notified RN/MD: (BEAKER) (test code = TESTED AT [place] [address] 1538) [facility], [address]: Scarfer/Techni elsie ID = [id number] for AN RICARDO DAUGHERTY [id number] 15:07:00 Test Item Value Reference Range Interpretation Comments FERRITIN (BEAKER) (test code = 3231.34 ng/mL 5.00-275.00 H 361) Scarfer ID - EDASIOperator ID - EDASIBODY FLUID [...] EDTA Tube (test code = 2873) POCT-GLUCOSE [id number] 13:16:00 Test Item Value Reference Range Interpretation Comments POC-GLUCOSE METER 206 mg/dL 70-110 H : Notified RN/MD: (BEAKER) (test code = TESTED AT [place] [address] 1538) [facility], [address]: Scarfer/Techni elsie ID = [id number] for AN RICARDO DAUGHERTY U/S, [id number] 12:46:00Last Plavix 1/7Labs to be ordered:->Body Fluid Culture (w/Gram Stain, C\T\S)Needs total protein, and fluid albumin for SAAG calculationLabs to be ordered:->CytologyLabs to be ordered:->Cell Cou ntLabs to be ordered:->Other (please add comment)Reason for exam:->new onset ascitesCH[facility] : 1955 Sex: MFINAL REPORT PROCEDURE: Ultrasound-guided paracentesis. INDICATION: 65-year-old man with ascites. DESCRIPTION: After obtaining informed written consent, ultrasound scan of theabdomen identified ascites in the right lower quadrant. The overlying skin was prepped and draped inthe usual, sterile fashion and local 2% lidocaine anesthesia was administered. A 5 Fijian catheter was advanced into the peritoneal cavity and 5600 cc of serous fluid was removed. The catheter was removed without immediate complication. Samples were sent for analysis. IMPRESSION:Uncomplicated ultrasound-guided paracentesis with 5600 cc fluid removed. Signed: Charles Floyd MDReport Verified Date/Time: 11/16/2020 12:46:29 Reading Location: [address] Body Reading Room [id number] 2020-11-16 11:46:00 Test Item Value Reference Range Interpretation Comments ALPHA-1 ANTITRYPSIN (BEAKER) 235.00 mg/dL 90.00-200.00 H (test code = 502) Scarfer ID - EDASIOperator ID - AAHAMIDSARS-COV2/RT-PCR ([facility]) 2020-11-16 11:16:00 Test Item Value Reference Range Interpretation Comments SARS-COV2/RT-PCR (test Negative Not Detected, Negative, code = 0609181) See external report for linked test SARS-COV-2 PERFORMING LAB [facility] KARINA (test code = 4101319) Negative result for this test determines that [...] 564(g) of the Act.Fact Sheet for Healthcare Providers:https://www.FoodBuzz.userfox/sites/default/files/product/documents/Fact_Shee i_QM_Niokcxypj_Kyjq_ZQMH-NxR-5.pdfFact Sheet for Healthcare Patients:https://www.FoodBuzz.com/sites/default/files/product/ documents/Hpof_Isczh_Iezjxbtl_Vwsk_WMOD-JiT-4.pdfPerforming Laboratory:[facility], [place] [address]JTOPQAJMW A ANTIBODY, [id number] 11:06:00 Test Item Value Reference Range Interpretation Comments HEPATITIS A IGG ANTIBODY (BEAKER) Reactive Nonreactive A (test code = 2797) Scarfer ID - AAHAMIDALPHA FETOPROTEIN (AFP), TUMOR [id number] 10:52:00 Test Item Value Reference Range Interpretation Comments ALPHA-FETOPROTEIN (BEAKER) (test code < ng/mL <10.0 = 1094) Scarfer ID - AAHAMIDHEPATITIS A ANTIBODY, [id number] 09:52:00 Test Item Value Reference Range Interpretation Comments HEPATITIS A IGM ANTIBODY (BEAKER) Nonreactive Nonreactive (test code = 498) Scarfer ID - AAHAMIDHEPATITIS B CORE ANTIBODY, [id number] 09:52:00 Test Item Value Reference Range Interpretation Comments HEPATITIS B CORE TOTAL ANTIBODY Nonreactive Nonreactive (BEAKER) (test code = 497) Scarfer ID - AAHAMIDHEPATITIS B SURFACE [id number] 09:52:00 Test Item Value Reference Range Interpretation Comments HEPATITIS B SURFACE ANTIBODY 256.5 mIU/mL <8.0 H (BEAKER) (test code = 647) Scarfer ID - AAHAMIDPOCT-GLUCOSE [id number] 08:18:00 Test Item Value Reference Range Interpretation Comments POC-GLUCOSE METER 190 mg/dL 70-110 H : Notified RN/MD: (CONRAD) (test code = TESTED AT [facility] 3420 1531) [facility], [address]: Scarfer/Techni elsie ID = [id number] for AN RICARDO DAUGHERTY U/S, ABDOMINAL, [id number] 06:31:00Evaluate spleen size and hepatic vesselsAbdomen limited area? Add comment if clarification is needed.- >LiverReason for exam:->New onset ascites - CT with nodular liver contour - please examine hepatic vasculature to r/o [facility] 1955 Sex: MFINAL REPORT [...] MDReport Verified Date/Time: 11/16/2020 06:31:37 U/S, DUPLEX, [id number] 06:31:00Reason for exam:->hepatic vasculature pvt [facility] : 1955 Sex: MFINAL REPORT [...] venous thrombosis.Right pleural effusion. Signed: Elidia Patel Verified Date/Time: 11/16/2020 06:31:37 POCT-GLUCOSE [id number] 22:44:00 Test Item Value Reference Range Interpretation Comments POC-GLUCOSE METER 191 mg/dL 70-110 H : TESTED A T [facility] 6720 ([employer]) (test code = [facility], 1538) [address]: Scarfer/Techni elsie ID = [id number] for YUKI CLEMENT POCT-GLUCOSE [id number] 22:26:00 Test Item Value Reference Range Interpretation Comments POC-GLUCOSE METER 211 mg/dL 70-110 H : TESTED A T [facility] 6720 (BEAKER) (test code = [facility], 1538) [address]: Scarfer/Techni elsie ID = [id number] for JAMES SPRING POCT-GLUCOSE [id number] 19:18:00 Test Item Value Reference Range Interpretation Comments POC-GLUCOSE METER 122 mg/dL 70-110 H : TESTED A T [facility] 6720 (BEAKER) (test code = [facility], 1538) [address]: Scarfer/Techni elsie ID = [id number] for OG UNSANYA, SANDHYA POCT-GLUCOSE [id number] 12:37:00 Test Item Value Reference Range Interpretation Comments POC-GLUCOSE METER 173 mg/dL 70-110 H : TESTED A T [facility] 6720 (BEAKER) (test code = CIERA Sewell [facility], 1538) [address]: Scarfer/Techni elsie ID = [id number] for AN RICARDO DAUGHERTY HEPATITIS B SURFACE [id number] 11:33:00 Test Item Value Reference Range Interpretation Comments HEPATITIS B SURFACE ANTIGEN (2) Nonreactive Nonreactive (BEAKER) (test code = 2585) Specimen is considered negative for HBsAg.HEPATITIS B SURFACE [id number] 11:33:00 Test Item Value Reference Range Interpretation Comments HEPATITIS B SURFACE ANTIBODY 248.1 mIU/mL <8.0 H (BEAKER) (test code = 647) Scarfer ID - DBHEPATITIS B CORE ANTIBODY, [id number] 11:33:00 Test Item Value Reference Range Interpretation Comments HEPATITIS B CORE TOTAL ANTIBODY Nonreactive Nonreactive (BEAKER) (test code = 497) Scarfer ID - DBHEMOGLOBIN [id number] 11:28:00 Test Item Value Reference Range Interpretation [...] 24 % 20-55 (test code = 2590) Scarfer ID - DBPOCT-GLUCOSE [id number] 08:18:00 Test Item Value Reference Range Interpretation Comments POC-GLUCOSE METER 204 mg/dL 70-110 H : Notified RN/MD: (BEAKER) (test code = TESTED AT [facility] 6720 1538) [facility], [address]: Scarfer/Techni elsie ID = [id number] for AN RICARDO DAUGHERTY BASIC METABOLIC [id number] 07:13:00 Test Item Value Reference Range Interpretation [...] S NOT APPLICABLE FOR DIALYSIS PATIEN TS. Scarfer ID - [id number] 07:11:00 Test Item Value Reference Range Interpretation Comments MAGNESIUM (BEAKER) (test code = 2.1 mg/dL 1.6-2.6 627) Scarfer ID - DBHEPATIC FUNCTION [id number] 07:11:00 Test Item Value Reference Range Interpretation [...] (test code = 15 U/L 6-55 347) Scarfer ID - DBHEPATITIS C [id number] 06:59:00 Test Item Value Reference Range Interpretation Comments HEPATITIS C ANTIBODY (BEAKER) Nonreactive Nonreactive (test code = 367) Scarfer ID - DBCBC W/PLT COUNT & AUTO [id number] 06:57:00 Test Item Value Reference Range Interpretation [...] 417) IMMATURE GRANULOCYTES-RELATIVE 1 % 0-1 PERCENT (CONRAD) (test code = 2801) PROTHROMBIN [id number] 05:55:00 Test Item Value Reference Range Interpretation Comments PROTIME (CONRAD) (test code = 16.0 seconds 11.9-14.2 H 759) INR (CONRAD) (test code = 370) 1.32 <=5.90 Effective 04/04/2019: PT Reference Range ChangeNew: 11.9-14.2 Previous: 11.7- 14.7RECOMMENDED COUMADIN/WARFARIN INR THERAPY RANGESSTANDARD DOSE: 2.0-3.0 Includes: PROPHYLAXIS for venous thrombosis, systemic embolization; TREATMENT for venous thrombosis and/or pulmonary embolus.HIGH RISK: Target INR is2.5-3.5 for patients wiht mechanical heart valves.RAD, CHEST, 1 VIEW, NON [id number] 01:26:00Reason for exam:->Weight loss, new ascites, volume overloadShould this be performed at the bedside?->Yes [facility] 1955 Sex: MFINAL REPORT [...] 70-110 H 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 [facility] BASIC METABOLIC [id number] 13:42:00 Test Item Value Reference Range Interpretation [...] 8.2 mg/dL 8.0-10.5 N CA) CBC W/AUTO [id number] 13:28:00 Test Item Value Reference Range Interpretation [...] DIFF REQUIRED (test code NO = MDIFF) [id number] 11:56:00 Test Item Value Reference Range Interpretation Comments GLUBED (test code = 132 MG/DL 70-110 H 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 [facility] Novel Coronavirus 2019 [id number] 20:44:00 Test Item Value Reference Range Interpretation Comments Novel Coronavirus 2019 Inhouse (test Negative Negative code = COVNONPUI) - XR CHEST 2 [id number] 10:48:00 FAX: Espinoza Santillan MD [phone] [place]: St: PRE Name: TROY FORTE [facility] : 1955 Age/S: 64/M [address] [place] [address] Blvd Unit#: [id number] Loc: [place] [address] Phys: Espinoza Villagran MD Acct: [id number] Dis Date: Status: PRE SDC PHONE #: [phone] Exam Date: 06/18/2020957 FAX #: [phone] Reason: PREOP- ESRD EXAMS: CPT CODE: [id number] XR CHEST 2 V 04424 CLINICAL HISTORY: PREOP- ESRD COMPARISON: March 22, [...] MD Technologist: RT Paolo(Melodie) Trnscrd Date/Time/By: 06/18/2020 (4494) : By: MansiYOS Orig Print D/T: S: 06/18/2020 (0632) PAGE 1 Signed ReportBASIC METABOLIC [id number] 09:12:00 Test Item Value Reference Range Interpretation [...] = 8.0 mg/dL 8.0-10.5 N CA) PROTHROMBIN [id number] 09:06:00 Test Item Value Reference Range Interpretation [...] o prevent recurre nt infarct). THROMBOPLASTIN TIME [id number] 09:06:00 Test Item Value Reference Range Interpretation Comments THROMBOPLASTIN TIME PARTIAL (test Seconds 25.0-39.5 code = PTT) PROTHROMBIN [id number] 09:06:00 Test Item Value Reference Range Interpretation [...] o prevent recurre nt infarct). THROMBOPLASTIN TIME [id number] 09:06:00 Test Item Value Reference Range Interpretation Comments THROMBOPLASTIN TIME 37.2 Seconds 25.0-39.5 N Ther apeutic PARTIAL (test code = Range: 50.4 - 88.3 PTT) Seconds Effective 02/20/2019 CBC W/AUTO [id number] 08:58:00 Test Item Value Reference Range Interpretation [...] REQUIRED (test code NO = MDIFF) URINE [id number] 14:16:00 Test Item Value Reference Range Interpretation [...] S Sulfamethoxazole (test code = 47) CULTURE (BEAKER) (test A 80-89 ,000 col/mL code = 1095) Ekaterina albican s POCT-GLUCOSE [id number] 17:07:00 Test Item Value Reference Range Interpretation Comments POC-GLUCOSE METER 168 mg/dL 70-110 H TESTED AT [facility] 6720 (BEAKER) (test code = CIERA Sewell [facility] 1538) [address] POCT-GLUCOSE [id number] 13:49:00 Test Item Value Reference Range Interpretation Comments POC-GLUCOSE METER 172 mg/dL 70-110 H TESTED AT [facility] [address] ([facility]) (test code = CIERA Sewell [facility] 1538) [address] BASIC METABOLIC [id number] 09:18:00 Test Item Value Reference Range Interpretation [...] H (BEAKER) (test code = 413) POCT-GLUCOSE [id number] 21:43:00 Test Item Value Reference Range Interpretation Comments POC-GLUCOSE METER 175 mg/dL 70-110 H TESTED AT [place] [address] [facility] (test code = CIER[place] Sewell [place] 1538) [address] POCT-GLUCOSE [id number] 12:42:00 Test Item Value Reference Range Interpretation Comments POC-GLUCOSE METER 113 mg/dL 70-110 H TESTED AT [place] [address] ([facility]) (test code = CIERA Sewell [facility] 1538) [address] BASIC METABOLIC [id number] 08:22:00 Test Item Value Reference Range Interpretation [...] 0-0 (BEAKER) (test code = 413) POCT-GLUCOSE [id number] 21:40:00 Test Item Value Reference Range Interpretation Comments POC-GLUCOSE METER 159 mg/dL 70-110 H TESTED AT [facility] 6720 (BEAKER) (test code = [facility] 1538) [address] POCT-GLUCOSE [id number] 17:24:00 Test Item Value Reference Range Interpretation Comments POC-GLUCOSE METER 203 mg/dL 70-110 H TESTED AT [place] [address] (BEAKER) (test code = [facility] Melodie [facility] 1538) [address] POCT-GLUCOSE [id number] 13:17:00 Test Item Value Reference Range Interpretation Comments POC-GLUCOSE METER 201 mg/dL 70-110 H TESTED AT [place] [address] (BEAKER) (test code = [facility] 1538) [address] POCT-GLUCOSE [id number] 08:11:00 Test Item Value Reference Range Interpretation Comments POC-GLUCOSE METER 199 mg/dL 70-110 H TEST[facility] AT [place] [address] ([facility] (test code = [facility] 1538) [address] BASIC METABOLIC [id number] 07:40:00 Test Item Value Reference Range Interpretation [...] code = 412) PLATELET COUNT (AKER) (test 325 K/CU MM 150-450 code = 756) MEAN PLATELET VOLUME (BEAKER) 10.1 fL 9.4-12.4 (test code = 754) NUCLEATED RED BLOOD CELLS 0 /100 WBC 0-[address] ([facility]) (test code = 413) POCT-GLUCOSE [id number] 23:55:00 Test Item Value Reference Range Interpretation Comments POC-GLUCOSE METER 198 mg/dL 70-110 H TESTED AT [place] [address] ([facility]) (test code = CIER[place] Sewell [place] 1538) [address] POCT-GLUCOSE [id number] 22:53:00 Test Item Value Reference Range Interpretation Comments POC-GLUCOSE METER 205 mg/dL 70-110 H TESTED AT [place] [address] ([facility]) (test code = CIER[place] Sew[place] 1538) [address] POCT-GLUCOSE [id number] 18:28:00 Test Item Value Reference Range Interpretation Comments POC-GLUCOSE METER 252 mg/dL 70-110 H TESTED AT [place] [address] ([facility]) (test code = CIER[place] Sewell [place] 1538) [address] POCT-GLUCOSE [id number] 13:01:00 Test Item Value Reference Range Interpretation Comments POC-GLUCOSE METER 118 mg/dL 70-110 H TESTED AT [place] [address] ([facility]) (test code = [place] 1538) [address] BASIC METABOLIC [id number] 07:03:00 Test Item Value Reference Range Interpretation [...] NOT APPLICABLE FOR DIALYSIS PATIEN TS. POCT-GLUCOSE [id number] 21:53:00 Test Item Value Reference Range Interpretation Comments POC-GLUCOSE METER 189 mg/dL 70-110 H TESTED AT [facility] 6720 ([facility] ([facility] = [facility] Sewell [facility] 1538) [address] POCT-GLUCOSE [id number] 18:21:00 Test Item Value Reference Range Interpretation Comments POC-GLUCOSE METER 207 mg/dL 70-110 H TESTED AT [facility] 6720 ([facility] (test code = [facility] Melodie [facility] 1538) [address] POCT-GLUCOSE [id number] 12:36:00 Test Item Value Reference Range Interpretation Comments POC-GLUCOSE METER 95 mg/dL 70-110 TESTED AT [facility] 6720 ([facility] (test code = [facility] [address] 1538) BASIC METABOLIC [id number] 09:00:00 Test Item Value Reference Range Interpretation [...] H (BEAKER) (test code = 413) POCT-GLUCOSE [id number] 21:13:00 Test Item Value Reference Range Interpretation Comments POC-GLUCOSE METER 125 mg/dL 70-110 H TESTED AT [facility] 6720 (BEAKER) (test code = CIERA Sewell [facility] 1538) [address] POCT-GLUCOSE [id number] 13:58:00 Test Item Value Reference Range Interpretation Comments POC-GLUCOSE METER 150 mg/dL 70-110 H TESTED AT [place] [address] ([facility]) (test code = CIERA Sewell [facility] 1538) [address] POCT-GLUCOSE [id number] 09:25:00 Test Item Value Reference Range Interpretation Comments POC-GLUCOSE METER 67 mg/dL 70-110 L Notified R N MD/TESTED AT ([facility]) (test code = [place] 4[address]28) [facility] 7703 0 POCT-GLUCOSE [id number] 09:25:00 Test Item Value Reference Range Interpretation Comments POC-GLUCOSE METER 65 mg/dL 70-110 L Notified R Lola MD/TESTED AT ([facility]) (test code = [place] 4[address]28) [facility] 7703 0 BASIC METABOLIC [id number] 07:54:00 Test Item Value Reference Range Interpretation [...] 0-0 (BEAKER) (test code = 413) POCT-GLUCOSE [id number] 21:31:00 Test Item Value Reference Range Interpretation Comments POC-GLUCOSE METER 119 mg/dL 70-110 H TESTED AT [place] [address] ([facility]) (test code = [facility] 1538) [address] POCT-GLUCOSE [id number] 17:15:00 Test Item Value Reference Range Interpretation Comments POC-GLUCOSE METER 117 mg/dL 70-110 H TESTED AT [place] [address] ([facility]) (test code = [facility] 1538) [address] POCT-GLUCOSE [id number] 12:55:00 Test Item Value Reference Range Interpretation Comments POC-GLUCOSE METER 76 mg/dL 70-110 TESTED AT [place] [address] ([facility]) (test code = [facility] [address] 1538) BASIC METABOLIC [id number] 08:15:00 Test Item Value Reference Range Interpretation [...] NOT APPLICABLE FOR DIALYSIS PATIEN TS. POCT-GLUCOSE [id number] 08:11:00 Test Item Value Reference Range Interpretation Comments POC-GLUCOSE METER 101 mg/dL 70-110 TESTED AT [facility] 6720 ([facility] (test code = [place] 1538) [address] CBC (HEMOGRAM ONLY)2019-06-09 06:58:00 Test Item Value [...] 0-0 (AKER) (test code = 413) POCT-GLUCOSE [id number] 20:40:00 Test Item Value Reference Range Interpretation Comments POC-GLUCOSE METER 116 mg/dL 70-110 H TESTED AT [place] [address] ([facility]) (test code = [facility] 1538) [address] POCT-GLUCOSE [id number] 17:32:00 Test Item Value Reference Range Interpretation Comments POC-GLUCOSE METER 122 mg/dL 70-110 H TESTED AT [place] [address] ([facility]) (test code = [facility] 1538) [address] POCT-GLUCOSE [id number] 17:14:00 Test Item Value Reference Range Interpretation Comments POC-GLUCOSE METER 112 mg/dL 70-110 H TESTED AT [place] [address] ([facility]) (test code = [facility] 1538) [address] POCT-GLUCOSE [id number] 16:56:00 Test Item Value Reference Range Interpretation Comments POC-GLUCOSE METER 219 mg/dL 70-110 H TESTED AT [place] [address] ([facility]) (test code = [facility] 1538) [address] POCT-GLUCOSE [id number] 09:50:00 Test Item Value Reference Range Interpretation Comments POC-GLUCOSE METER 117 mg/dL 70-110 H TESTED AT [place] [address] ([facility]) (test code = [facility] 1538) [address] BASIC METABOLIC [id number] 07:14:00 Test Item Value Reference Range Interpretation [...] 0-0 (BEAKER) (test code = 413) POCT-GLUCOSE [id number] 21:59:00 Test Item Value Reference Range Interpretation Comments POC-GLUCOSE METER 78 mg/dL 70-110 TESTED AT [facility] 6720 (BEAKER) (test code = [place] [address] 1538) POCT-GLUCOSE [id number] 17:57:00 Test Item Value Reference Range Interpretation Comments POC-GLUCOSE METER 113 mg/dL 70-110 H TESTED AT [place] [address] ([facility] (test code = CIERA Sewell [facility] 1538) [address] POCT-GLUCOSE [id number] 14:30:00 Test Item Value Reference Range Interpretation Comments POC-GLUCOSE METER 227 mg/dL 70-110 H TESTED AT [place] [address] (BEAKER) (test code = [facility] Melodie [facility] 1538) [address] BASIC METABOLIC [id number] 08:20:00 Test Item Value Reference Range Interpretation [...] NOT APPLICABLE FOR DIALYSIS PATIEN TS. POCT-GLUCOSE [id number] 08:01:00 Test Item Value Reference Range Interpretation Comments POC-GLUCOSE METER 139 mg/dL 70-110 H TESTED AT [place] [address] (BEAKER) (test code = [facility] Melodie [facility] 1538) [address] CBC (HEMOGRAM ONLY)2019-06-07 07:07:00 Test Item Value [...] code = 412) PLATELET COUNT (AKER) (test 356 K/CU MM 150-450 code = 756) MEAN PLATELET VOLUME (BEAKER) 9.7 fL 9.4-12.4 (test code = 754) NUCLEATED RED BLOOD CELLS 0 /100 WBC 0-0 (AKER) (test code = 413) POCT-GLUCOSE [id number] 22:52:00 Test Item Value Reference Range Interpretation Comments POC-GLUCOSE METER 271 mg/dL 70-110 H TESTED AT [place] [address] ([facility]) (test code = [facility] 1538) [address] POCT-GLUCOSE [id number] 17:23:00 Test Item Value Reference Range Interpretation Comments POC-GLUCOSE METER 273 mg/dL 70-110 H TESTED AT [place] [address] ([facility]) (test code = [facility] 1538) [address] POCT-GLUCOSE [id number] 12:33:00 Test Item Value Reference Range Interpretation Comments POC-GLUCOSE METER 107 mg/dL 70-110 TESTED AT [place] [address] ([facility]) (test code = [facility] 1538) [address] BASIC METABOLIC [id number] 08:59:00 Test Item Value Reference Range Interpretation [...] 0-0 (BEAKER) (test code = 413) POCT-GLUCOSE [id number] 21:40:00 Test Item Value Reference Range Interpretation Comments POC-GLUCOSE METER 137 mg/dL 70-110 H TESTED AT [facility] 6720 (BEAKER) (test code = [facility] 1538) [address] POCT-GLUCOSE [id number] 18:27:00 Test Item Value Reference Range Interpretation Comments POC-GLUCOSE METER 219 mg/dL 70-110 H TESTED AT [facility] 6720 (BEAKER) (test code = [facility] 1538) [address] POCT-GLUCOSE [id number] 13:10:00 Test Item Value Reference Range Interpretation Comments POC-GLUCOSE METER 168 mg/dL 70-110 H TESTED AT [facility] 6720 (BEAKER) (test code = [facility] Melodie [facility] 1538) [id number] POCT-GLUCOSE [id number] 10:22:00 Test Item Value Reference Range Interpretation Comments POC-GLUCOSE METER 161 mg/dL 70-110 H TESTED AT [facility] 67 (BEAKER) (test code = [facility] 1538) [address] BASIC METABOLIC [id number] 04:41:00 Test Item Value Reference Range Interpretation [...] S NOT APPLICABLE FOR DIALYSIS PATIEN TS. [id number] 04:40:00 Test Item Value Reference Range Interpretation [...] 0-0 (BEAKER) (test code = 413) POCT-GLUCOSE [id number] 21:42:00 Test Item Value Reference Range Interpretation Comments POC-GLUCOSE METER 176 mg/dL 70-110 H TESTED AT [place] [address] ([facility]) (test code = [facility] [facility] 1538) [address] POCT-GLUCOSE [id number] 14:38:00 Test Item Value Reference Range Interpretation Comments POC-GLUCOSE METER 179 mg/dL 70-110 H TESTED AT [place] [address] ([facility]) (test code = [facility] 1538) [address] POCT-GLUCOSE [id number] 09:07:00 Test Item Value Reference Range Interpretation Comments POC-GLUCOSE METER 155 mg/dL 70-110 H TESTED AT [place] [address] ([facility]) [facility] 1538) [address] BASIC METABOLIC [id number] 07:49:00 Test Item Value Reference Range Interpretation [...] S NOT APPLICABLE FOR DIALYSIS PATIEN TS. [id number] 07:44:00 Test Item Value Reference Range Interpretation [...] 0-0 (BEAKER) (test code = 413) POCT-GLUCOSE [id number] 22:34:00 Test Item Value Reference Range Interpretation Comments POC-GLUCOSE METER 246 mg/dL 70-110 H TESTED AT [place] [address] ([facility]) (test code = [facility] 1538) [address]16 POCT-GLUCOSE [id number] 18:15:00 Test Item Value Reference Range Interpretation Comments POC-GLUCOSE METER 201 mg/dL 70-110 H TESTED AT [place] [address] ([facility]) (test code = [facility] 1538) [address] POCT-GLUCOSE [id number] 13:12:00 Test Item Value Reference Range Interpretation Comments POC-GLUCOSE METER 211 mg/dL 70-110 H TESTED AT [place] [address] ([facility]) (test code = [facility] 1538) [address] POCT-GLUCOSE [id number] 08:17:00 Test Item Value Reference Range Interpretation Comments POC-GLUCOSE METER 204 mg/dL 70-110 H TESTED AT [place] [address] ([facility]) (test code = [facility] 1538) [address] BASIC METABOLIC [id number] 08:05:00 Test Item Value Reference Range Interpretation [...] S NOT APPLICABLE FOR DIALYSIS PATIEN TS. [id number] 08:04:00 Test Item Value Reference Range Interpretation [...] 0-0 (BEAKER) (test code = 413) POCT-GLUCOSE [id number] 22:17:00 Test Item Value Reference Range Interpretation Comments POC-GLUCOSE METER 154 mg/dL 70-110 H TESTED AT [facility] [address] ([facility]) (test code = [facility] 1538) [address] POCT-GLUCOSE [id number] 22:14:00 Test Item Value Reference Range Interpretation Comments POC-GLUCOSE METER 172 mg/dL 70-110 H TESTED AT [facility] [address] ([facility]) (test code = [facility] 1538) [address]61 POCT-GLUCOSE [id number] 17:34:00 Test Item Value Reference Range Interpretation Comments POC-GLUCOSE METER 187 mg/dL 70-110 H TESTED AT [place] [address] ([facility]) (test code = [facility] 1538) 18762 POCT-GLUCOSE [id number] 12:28:00 Test Item Value Reference Range Interpretation Comments POC-GLUCOSE METER 192 mg/dL 70-110 H TESTED AT [place] [address] ([facility]) (test code = [facility] 1538) [address]28 POCT-GLUCOSE [id number] 07:43:00 Test Item Value Reference Range Interpretation Comments POC-GLUCOSE METER 132 mg/dL 70-110 H TESTED AT [place] [address] ([facility]) (test code = [facility] 1538) [address]18 POCT-GLUCOSE [id number] 21:47:00 Test Item Value Reference Range Interpretation Comments POC-GLUCOSE METER 255 mg/dL 70-110 H TESTED AT [place] [address] ([facility]) (test code = [facility] 1538) 32142 POCT-GLUCOSE [id number] 11:45:00 Test Item Value Reference Range Interpretation Comments POC-GLUCOSE METER 159 mg/dL 70-110 H TESTED AT [place] [address] ([facility]) (test code = [facility] 1538) [address] [id number] 11:17:00 Test Item Value Reference Range Interpretation [...] 20-55 L (test code = 2590) POCT-GLUCOSE [id number] 08:44:00 Test Item Value Reference Range Interpretation Comments POC-GLUCOSE METER 170 mg/dL 70-110 H TESTED AT [place] [address] ([facility]) (test code = [facility] 1538) [address] BASIC METABOLIC [id number] 04:42:00 Test Item Value Reference Range Interpretation [...] S NOT APPLICABLE FOR DIALYSIS PATIEN TS. [id number] 03:47:00 Test Item Value Reference Range Interpretation Comments MAGNESIUM (BEAKER) (test code = 2.1 mg/dL 1.6-2.6 627) CBC W/PLT COUNT & AUTO [id number] 03:36:00 Test Item Value Reference Range Interpretation [...] PERCENT (BEAKER) (test code = 2801) POCT-GLUCOSE [id number] 22:05:00 Test Item Value Reference Range Interpretation Comments POC-GLUCOSE METER 91 mg/dL 70-110 [facility] [place] [address] [facility] (test code = [facility] [address] 1538) POCT-GLUCOSE [id number] 18:37:00 Test Item Value Reference Range Interpretation Comments POC-GLUCOSE METER 102 mg/dL 70-110 TESTED AT [place] [address] [facility] (test code = [facility] 1538) [address] POCT-GLUCOSE [id number] 12:26:00 Test Item Value Reference Range Interpretation Comments POC-GLUCOSE METER 113 mg/dL 70-110 H TESTED AT [place] [address] (BEAKER) (test code = [facility] [place] 1538) [address] POCT-GLUCOSE [id number] 08:07:00 Test Item Value Reference Range Interpretation Comments POC-GLUCOSE METER 73 mg/dL 70-110 TESTED AT [facility] 6720 (BEAKER) (test code = [place] [address] 1538) BLOOD [id number] 08:01:00 Test Item Value Reference Range Interpretation Comments CULTURE (BEAKER) (test No growth in 5 days code = 1095) BLOOD [id number] 08:01:00 Test Item Value Reference Range Interpretation Comments CULTURE (BEAKER) (test No growth in 5 days code = 1095) CBC W/PLT COUNT & AUTO [id number] 06:59:00 Test Item Value Reference Range Interpretation [...] (BEAKER) (test code = 2801) BASIC METABOLIC [id number] 06:27:00 Test Item Value Reference Range Interpretation [...] S NOT APPLICABLE FOR DIALYSIS PATIEN TS. [id number] 06:18:00 Test Item Value Reference Range Interpretation Comments MAGNESIUM (BEAKER) 1.6 mg/dL 1.6-2.6 Specimen slightly (test code = 627) hemolyzed URINALYSIS W/ REFLEX URINE [id number] 23:41:00 Test Item Value Reference Range Interpretation [...] 516) SOURCE(BEAKER) (test code = 2795) POCT-GLUCOSE [id number] 21:42:00 Test Item Value Reference Range Interpretation Comments POC-GLUCOSE METER 139 mg/dL 70-110 H TESTED AT [place] [address] [facility] (test code = [facility] 1538) 37674 POCT-GLUCOSE [id number] 20:39:00 Test Item Value Reference Range Interpretation Comments POC-GLUCOSE METER 65 mg/dL 70-110 L TESTED AT [place] [address] [facility] (test code = [facility] [address] 1538) POCT-GLUCOSE [id number] 17:54:00 Test Item Value Reference Range Interpretation Comments POC-GLUCOSE METER 78 mg/dL 70-110 TESTED AT [place] [address] ([facility]) (test code = [facility] [address] 1538) CBC W/PLT COUNT & AUTO [id number] 10:44:00 Test Item Value Reference Range Interpretation [...] 3438) Received comment: User comments: Slide comments:POCT-GLUCOSE [id number] 07:50:00 Test Item Value Reference Range Interpretation Comments POC-GLUCOSE METER 70 mg/dL 70-110 TESTED AT [facility] 6720 (BEAKER) (test code = [place] [address] 1538) BASIC METABOLIC [id number] 06:36:00 Test Item Value Reference Range Interpretation [...] S NOT APPLICABLE FOR DIALYSIS PATIEN TS. [id number] 06:33:00 Test Item Value Reference Range Interpretation Comments MAGNESIUM (BEAKER) (test code = 2.2 mg/dL 1.6-2.6 627) POCT-GLUCOSE [id number] 22:28:00 Test Item Value Reference Range Interpretation Comments POC-GLUCOSE METER 120 mg/dL 70-110 H TESTED AT [place] [address] [facility] (test code = [facility] 1538) [address] POCT-GLUCOSE [id number] 19:33:00 Test Item Value Reference Range Interpretation Comments POC-GLUCOSE METER 166 mg/dL 70-110 H TESTED AT [place] [address] ([facility]) (test code = [facility] 1538) 20452 POCT-GLUCOSE [id number] 13:30:00 Test Item Value Reference Range Interpretation Comments POC-GLUCOSE METER 168 mg/dL 70-110 H TESTED AT [place] [address] ([facility] (test code = [facility] 1538) [address]83 POCT-GLUCOSE [id number] 07:37:00 Test Item Value Reference Range Interpretation Comments POC-GLUCOSE METER 117 mg/dL 70-110 H TESTED AT [place] [address] ([facility] (test code = [facility] 1538) 28812 BASIC METABOLIC [id number] 06:57:00 Test Item Value Reference Range Interpretation [...] S NOT APPLICABLE FOR DIALYSIS PATIEN TS. [id number] 06:52:00 Test Item Value Reference Range Interpretation [...] 0-0 (BEAKER) (test code = 413) POCT-GLUCOSE [id number] 21:52:00 Test Item Value Reference Range Interpretation Comments POC-GLUCOSE METER 174 mg/dL 70-110 H TESTED AT [facility] 6720 (BEAKER) (test code = [facility] 1538) 0[address]75 POCT-GLUCOSE [id number] 17:58:00 Test Item Value Reference Range Interpretation Comments POC-GLUCOSE METER 151 mg/dL 70-110 H TESTED AT [place] [address] (BEAKER) (test code = [facility] 1538) [address] POCT-GLUCOSE [id number] 12:35:00 Test Item Value Reference Range Interpretation Comments POC-GLUCOSE METER 225 mg/dL 70-110 H TESTED AT [place] [address] ([facility] (test code = [facility] [place] 1538) [address] HEMOGLOBIN [id number] 08:34:00 Test Item Value Reference Range Interpretation Comments HEMOGLOBIN A1C (BEAKER) (test code = 6.3 % 4.3-6.1 H 368) POCT-GLUCOSE [id number] 07:56:00 Test Item Value Reference Range Interpretation Comments POC-GLUCOSE METER 141 mg/dL 70-110 H TESTED AT [place] [address] ([facility] (test code = [facility] 1538) [address] CBC (HEMOGRAM ONLY)2019-05-28 06:12:00 Test Item Value [...] (BEAKER) (test code = 413) BASIC METABOLIC [id number] 06:02:00 Test Item Value Reference Range Interpretation [...] NOT APPLICABLE FOR DIALYSIS PATIEN TS. POCT-GLUCOSE [id number] 22:24:00 Test Item Value Reference Range Interpretation Comments POC-GLUCOSE METER 171 mg/dL 70-110 H TESTED AT [facility] [address] ([facility]) (test code = [facility] 1538) [address] HEPATITIS B [id number] 20:01:00 Test Item Value Reference Range Interpretation Comments HEPATITIS B CORE TOTAL ANTIBODY Nonreactive Nonreactive (BEAKER) (test code = 497) HEPATITIS B SURFACE ANTIBODY < mIU/mL <8.0 (BEAKER) (test code = 647) HEPATITIS B SURFACE ANTIGEN (2) Nonreactive Nonreactive ([facility]) (test code = 2585) POCT-GLUCOSE [id number] 17:37:00 Test Item Value Reference Range Interpretation Comments POC-GLUCOSE METER 158 mg/dL 70-110 H TESTED AT [facility] [address] ([facility]) (test code = [facility] 1538) [address]497 CBC (HEMOGRAM ONLY)2019-05-27 16:37:00 Test Item Value [...] (BEAKER) (test code = 413) BASIC METABOLIC [id number] 16:28:00 Test Item Value Reference Range Interpretation [...] NOT APPLICABLE FOR DIALYSIS PATIEN TS. POCT-GLUCOSE [id number] 12:29:00 Test Item Value Reference Range Interpretation Comments POC-GLUCOSE METER 155 mg/dL 70-110 H TESTED AT [facility] 6720 (BEAKER) (test code = [facility] [place] 1538) [address] [id number] 09:20:00 Test Item Value Reference Range Interpretation Comments PHOSPHORUS (BEAKER) (test code = 3.4 mg/dL 2.3-4.7 604) [id number] 09:20:00 Test Item Value Reference Range Interpretation Comments MAGNESIUM (BEAKER) (test code = 2.0 mg/dL 1.6-2.6 627) PH, [id number] 08:49:00 Test Item Value Reference Range Interpretation Comments PH ARTERIAL (BEAKER) (test code = 383) 7.35 7.35-7.45 POCT-GLUCOSE [id number] 08:11:00 Test Item Value Reference Range Interpretation Comments POC-GLUCOSE METER 137 mg/dL 70-110 H TESTED AT [facility] 6720 (BEAKER) (test code = [facility] Melodie [place] 1538) [address] BASIC METABOLIC [id number] 03:25:00 Test Item Value Reference Range Interpretation [...] PATIEN TS. CBC W/PLT COUNT & AUTO [id number] 03:11:00 Test Item Value Reference Range Interpretation [...] H PERCENT (BEAKER) (test code = 2801) [id number] 02:48:00 Test Item Value Reference Range Interpretation Comments MAGNESIUM (BEAKER) 2.2 mg/dL 1.6-2.6 Specimen slightly (test code = 627) hemolyzed [id number] 02:48:00 Test Item Value Reference Range Interpretation Comments PHOSPHORUS (BEAKER) 3.9 mg/dL 2.3-4.7 Specimen slightly (test code = 604) hemolyzed PH, [id number] 02:08:00 Test Item Value Reference Range Interpretation Comments PH ARTERIAL (BEAKER) (test code = 383) 7.41 7.35-7.45 RAD, CHEST, 1 VIEW, NON [id number] 22:15:00Reason for exam:->line placementShould this be performed [...] Signed: Marya Arredondo Verified Date/Time: 05/26/2019 22:15:38 BASIC METABOLIC [id number] 17:25:00 Test Item Value Reference Range Interpretation [...] NOT APPLICABLE FOR DIALYSIS PATIEN TS. POCT-GLUCOSE [id number] 17:09:00 Test Item Value Reference Range Interpretation Comments POC-GLUCOSE METER 233 mg/dL 70-110 H TESTED AT [facility] [address] ([facility]) (test code = [facility] 1538) [address] TROPONIN [id number] 12:31:00 Test Item Value Reference Range Interpretation [...] failure, acidosis, acute neurological disease, and persistent tachyarrhythmia.[id number] 12:26:00 Test Item Value Reference Range Interpretation Comments CALCIUM (BEAKER) (test code = 697) 7.7 mg/dL 8.4-10.2 L [id number] 12:24:00 Test Item Value Reference Range Interpretation Comments POTASSIUM (BEAKER) (test code = 4.4 meq/L 3.5-5.1 379) [id number] 12:24:00 Test Item Value Reference Range Interpretation Comments MAGNESIUM (BEAKER) (test code = 2.2 mg/dL 1.6-2.6 627) [id number] 12:24:00 Test Item Value Reference Range Interpretation Comments SODIUM (BEAKER) (test code = 381) 128 meq/L 136-145 L POCT-GLUCOSE [id number] 12:15:00 Test Item Value Reference Range Interpretation Comments POC-GLUCOSE METER 281 mg/dL 70-110 H TESTED AT [facility] 6720 (BEAKER) (test code = [facility] 1538) [address] PH, [id number] 11:52:00 Test Item Value Reference Range Interpretation Comments PH ARTERIAL (BEAKER) (test code = 383) 7.36 7.35-7.45 RAD, CHEST, 1 VIEW, NON [id number] 08:05:00Reason for exam:->central line placementFINAL REPORT CLINICAL [...] Villagran MDReport Verified Date/Time:05/26/2019 08:05:54 Reading Location: [facility] C013V Neuro Reading Room TROPONIN [id number] 06:42:00 Test Item Value Reference Range Interpretation [...] acidosis, acute neurological disease, and persistent tachyarrhythmia.TROPONIN [id number] 06:41:00 Test Item Value Reference Range Interpretation Comments TROPONIN I (BEAKER) (test code = 0.92 ng/mL 0.00-0.03 HH 397) Troponin I (TnI) [...] acute neurological disease, and persistent tachyarrhythmia.BASIC METABOLIC [id number] 06:23:00 Test Item Value Reference Range Interpretation [...] NOT APPLICABLE FOR DIALYSIS PATIEN TS. PROTHROMBIN [id number] 06:20:00 Test Item Value Reference Range Interpretation [...] INR is2.5-3.5 for patients wiht mechanical heart valves.[id number] 06:17:00 Test Item Value Reference Range Interpretation Comments PHOSPHORUS (BEAKER) (test code = 4.5 mg/dL 2.3-4.7 604) [id number] 06:17:00 Test Item Value Reference Range Interpretation Comments MAGNESIUM (BEAKER) (test code = 2.4 mg/dL 1.6-2.6 627) CBC W/PLT COUNT & AUTO [id number] 06:03:00 Test Item Value Reference Range Interpretation [...] (test code = 2801) TSH/FREE T4 IF [id number] 22:17:00 Test Item Value Reference Range Interpretation Comments THYROID STIMULATING HORMONE 3.33 uIU/mL 0.35-4.94 (BEAKER) (test code = 772) TROPONIN [id number] 21:59:00 Test Item Value Reference Range Interpretation [...] H (BEAKER) (test code = 700) C-REACTIVE [id number] 21:51:00 Test Item Value Reference Range Interpretation Comments C-REACTIVE PROTEIN (BEAKER) (test 13.88 mg/dL 0.00-0.50 H code = 676) COMPREHENSIVE METABOLIC [id number] 21:51:00 Test Item Value Reference Range Interpretation [...] PATIEN TS. CBC W/PLT COUNT & AUTO [id number] 21:20:00 Test Item Value Reference Range Interpretation [...] 0-1 H PERCENT (BEAKER) (test code = 5886)
[2022-02-05] MEDS ORDERED: FENTANYL CITR 100 MCG/2 ML ONE (18:39)
[2022-02-05 18:42] LABS: Absolute Lymphocytes (CBC) 0.4 K/uL (0.7-4.9); Hematocrit 34.6 % (39.6-49.0); Lymphocytes % 4.9 % (15.3-44.8); MPV 8.5 fL (7.6-11.3); RBC Red Blood Cell Count 3.69 M/uL (4.33-5.43)
[2022-02-05 18:58] LABS: Albumin 3.3 g/dL (3.4-5.0); Bilirubin Total 0.8 mg/dL (0.2-1.0); Potassium 4.3 mmol/L (3.5-5.1); Protein, Total 8.2 g/dL (6.4-8.2)
[2022-02-05 18:59] LABS: Blood Morphology Comment NOT SEEN (NOT SEEN); Platelet Estimate ADEQ; White Blood Cell Scan OK (OK)
--- NOTE | 2022-02-05 19:27 | RAD REPORT ---
EXAM DESCRIPTION: CT - Chest Abd Pelvis Wo Con - 02/05/2022 6:54 pm CLINICAL HISTORY: left flank and left hip pain, chest pain COMPARISON: Chest Abd Pelvis Wo Con dated 05/25/2019; Stone Protocol dated 01/18/2022 TECHNIQUE: Axial 5 millimeter thick images of the chest, abdomen and pelvis were obtained without IV contrast. Oral contrast was administered. All CT scans are performed using dose optimization technique as appropriate and may include automated exposure control or mA/KV adjustment according to patient size. FINDINGS: Large right pleural effusion is present from lung base to apex along the posterior aspect of the chest. This does not appear to be loculated. There is complete or near complete right lower lo be atelectasis and significant right middle lobe atelectasis. Small left pleural effusion is present may be partially loculated. There is lung base atelectasis in the left lower lobe. Infiltrates within the atelectatic lung cannot be excluded. No pneumothorax is present. No lung parenchymal mass lesion identified. Mild cardiomegaly is present without pericardial effusion. Bilateral gynecomastia is pre sent. No chest wall mass or abnormal axillary lymphadenopathy seen. Mediastinal and hilar regions sh ow no mass or lymphadenopathy. Sternotomy wires in place. CABG surgical changes are noted. Liver capsule is nodular in contour. No focal liver lesions seen on noncontrast imaging. Pancreatic a trophy changes are present. No splenomegaly or focal splenic finding. In the midline body of the panc reas there is a 13 millimeter rounded low-density mass not clearly seen on the prior study. Exams are not quite fully comparable. This can be monitored on follow-up imaging. There is probably [address] cystic mass in the uncinate process also not clearly seen from 2019. No gallbladder dilatation. Stones and sludge can be occult on noncontrast CT imaging. No abnormal bi liary tree dilatation identified. No hydronephrosis or suspicious renal mass. Isodense masses and pyelonephritis cannot be excluded on non contrast imaging. No adrenal abnormalities. Urinary bladder is tightly contracted limiting asses sment. No gastric dilatation or gastric wall thickening. No dilated large or small bowel. Moderate stool vol ume seen throughout the colon. No free air or pneumatosis. No bulky lymphadenopathy. Moderate amount of ascites is present primarily along the right side abdomen. Bilateral fat filled in guinal hernias are present. No ascites within the inguinal canals. Dense calcification of the arterial tree. Disc and bone degenerative changes are present. No patholog ic bone process seen. IMPRESSION: Large right pleural effusion is present slightly larger than seen on the 2019 study. Lef t pleural effusion is similar to the comparison study. Left lung base pleural effusion appears at least partially loculated. There is bilateral lower lobe a telectasis change which could mask infiltrate. Moderate volume of ascites present. No emergent GI or finding identifiable. Abdominal and pelvic f indings are not clearly different from the January 18 study. Two 13 millimeter sized cystic masses are seen in the body and uncinate process of the pancreas not c learly seen on 2019 imaging. These can be monitored on subsequent serial imaging.
--- NOTE | 2022-02-05 21:04 | ER ---
Nurse's Notes [facility] Name: Benji Villalpando Age: 66 yrs Sex: Male : 1955 Arrival Date: 02/05/2022 Time: 16:42 Bed 24 Private MD: Jack Corley Diagnosis: Pleural effusion in other conditions classified elsewhere;Hypoxemia Presentation: 02/05 16:47 Chief complaint: Patient states: "I've got a pain on the left side of my back." Pt c/o ab2 left flank pain. Denies any urinary symptoms. Pt is a dialysis pt and state he produces a little urine. Pt denies n/v/d. Coronavirus screen: Vaccine status: Patient reports receiving the 2nd dose of the covid vaccine. Client denies travel out of the [place] in the last 14 days. At this time, the client does not indicate any symptoms associated with coronavirus-19. Ebola Screen: Patient negative for fever greater than or equal to 101.5 degrees Fahrenheit, and additional compatible Ebola Virus Disease symptoms Patient denies exposure to infectious person. Patient denies travel to an Ebola-affected area in the 21 days before illness onset. No symptoms or risks identified at this time. Initial Sepsis Screen: Does the patient meet any 2 criteria? No. Patient's initial sepsis screen is negative. Does the patient have a suspected source of infection? No. Patient's initial sepsis screen is negative. Risk Assessment: Do you want to hurt yourself or someone else? Patient reports no desire to harm self or others. Onset of symptoms is unknown. 16:47 Method Of Arrival: Wheelchair ab2 16:47 Acuity: MILADYS 3 ab2 Triage Assessment: 16:49 General: Appears in no apparent distress. uncomfortable, Behavior is calm, cooperative, ab2 appropriate for age. Pain: Complains of pain in left low back Pain currently is 10 out of 10 on a pain scale. Neuro: Level of Consciousness is awake, alert, obeys commands, Oriented to person, place, time, situation, Appropriate for age. Cardiovascular: No deficits noted. Respiratory: Airway is patent Respiratory effort is even, unlabored, Respiratory pattern is regular, symmetrical. : Reports pain in left flank(s). Historical: - Allergies: 16:48 No Known Allergies; ab2 - PMHx: 16:48 Anemia; CHF; chronic kidney disease; Diabetes - NIDDM; Dialysis T-T-S; Hyperlipidemia; ab2 Hypertension; Hypothyroidism; Myocardial infarction; RENAL FAILURE; - PSHx: 16:48 fistula; heart bypass; pacemaker; ab2 - Immunization history:: Adult Immunizations up to date. - Social history:: Smoking status: Patient denies any tobacco usage or history of. Screenin:30 Abuse screen: Denies threats or abuse. Nutritional screening: No deficits noted. jb4 Tuberculosis screening: No symptoms or risk factors identified. Fall Risk IV access (20 points). Ambulatory Aid- Crutches/Cane/Walker (15 pts). Gait- Weak (10 pts.). Total Nayak Fall Scale indicates High Risk Score (45 or more points). Fall prevention measures have been instituted. Side Rails Up X 2 Placed Close to Nursing Station Frequent Obs/Assessments Occuring Family Present and informed to notify staff if the need to leave the bedside As available patient and family educated on Fall Prevention Program and Strategies. Assessment: 18:30 General: Appears in no apparent distress. uncomfortable, Behavior is calm, cooperative, jb4 appropriate for age. Pain: Complains of pain in left low back Pain does not radiate. Pain currently is 10 out of 10 on a pain scale. Neuro: Level of Consciousness is awake, alert, obeys commands, Oriented to person, place, time, situation. Cardiovascular: Patient's skin is warm and dry. Respiratory: Airway is patent Respiratory effort is even, unlabored, Respiratory pattern is regular, symmetrical. GI: No signs and/or symptoms were reported involving the gastrointestinal system. : No signs and/or symptoms were reported regarding the genitourinary system. EENT: No signs and/or symptoms were reported regarding the EENT system. Derm: Skin is intact, Skin is pink, warm \\T\\ dry. Musculoskeletal: Circulation, motion, and sensation intact. Range of motion: intact in all extremities. 19:14 Reassessment: Patient appears in no apparent distress at this time. Patient and/or jb4 family updated on plan of care and expected duration. Pain level reassessed. Patient is alert, oriented x 3, equal unlabored respirations, skin warm/dry/pink. Patient states feeling better. Vital Signs: 16:47 BP 123 / 66; Pulse 76; Resp 17; Temp 98.1(TE); Pulse Ox 94% on R/A; Weight 79.38 kg; ab2 Height 5 ft. 4 in. (162.56 cm); Pain 10/10; 19:10 BP 126 / 72; Pulse 76; Resp 18; Pulse Ox 100% ; ld1 20:05 BP 125 / 71; Pulse 72; Pulse Ox 100% ; ld1 21:00 BP 125 / 73; Pulse 74; Resp 18; Pulse Ox 100% on 3 lpm NC; ld1 21:45 BP 124 / 74; Pulse 73; Resp 18; Pulse Ox 100% on 3 lpm NC; ld1 22:15 BP 122 / 73; Pulse 71; Resp 18; Pulse Ox 90% on 3 lpm NC; ld1 22:45 BP 122 / 74; Pulse 71; Resp 18; Pulse Ox 100% on 3 lpm NC; ld1 23:00 Pulse Ox 86% on 3 lpm NC; ld1 23:09 BP 117 / 78; Pulse 82; Resp 18; Pulse Ox 100% on 3 lpm NC; ld1 16:47 Body Mass Index 30.04 (79.38 kg, 162.56 cm) ab2 ED Course: 16:42 Patient arrived in ED. am2 16:42 Jack Corley DO is Private Physician. am2 16:48 Triage completed. ab2 16:49 Arm band placed on right wrist. ab2 17:14 Geovanny Parsons PA is PHCP. cp 17:14 Eugene Simons MD is Attending Physician. cp 18:30 Patient has correct armband on for positive identification. Placed in gown. Bed in low jb4 position. Call light in reach. Side rails up X 1. Pulse ox on. NIBP on. 18:30 Inserted saline lock: 20 gauge in right wrist, using aseptic technique. jb4 18:45 Jeffry Morales, HRIA is Primary Nurse. jb4 18:56 CT Chest Abdomen Pelvis W/O Contrast In Process Unspecified. EDMS 21:02 Gregor Waller is Hospitalizing Provider. cp 21:02 Ashok Ackerman MD is Hospitalizing Provider. cp 23:48 No provider procedures requiring assistance completed. Patient admitted, IV remains in ld1 place. Administered Medications: 18:45 Drug: fentaNYL (PF) 25 mcg Route: IVP; Site: right wrist; jb4 Outcome: 21:03 Decision to Hospitalize by Provider. cp 23:48 Admitted to Med/surg accompanied by nurse, via wheelchair, room 223, Report called to maude Vaughn RN 23:48 Condition: stable 23:48 Instructed on the need for admit. 23:48 Patient left the ED. [email or web address] Signatures: Dispatcher [employer] EDMS Geovanny Parsons PA PA cp Jeffry Morales RN RN jb4 Leola Forrester Lauren, RN RN [email or web address] Hayder Joshi
--- NOTE | 2022-02-05 21:04 | EDPHYS ---
Physician Documentation [facility] Name: Benji Villalpando Age: 66 yrs Sex: Male : 1955 Arrival Date: 02/05/2022 Time: 16:42 Bed 24 Private MD: Barney [facility] ED Physician Eugene Simons HPI: 02/05 18:25 This 66 yrs old Male presents to ER via Wheelchair with complaints of Flank cp Pain - left, Hip Pain. 18:25 The patient complains of pain in the left flank. The pain does not radiate. Onset: The cp symptoms/episode began/occurred 1 week(s) ago. Associated signs and symptoms: Pertinent negatives: diarrhea, dizziness, dysuria, fever, hematuria, pain radiating to the lower extremities, vomiting. Severity of pain: in the emergency department the pain is unchanged despite home interventions. Historical: - Allergies: 16:48 No Known Allergies; ab2 - PMHx: 16:48 Anemia; CHF; chronic kidney disease; Diabetes - NIDDM; Dialysis T-T-S; Hyperlipidemia; ab2 Hypertension; Hypothyroidism; Myocardial infarction; RENAL FAILURE; - PSHx: 16:48 fistula; heart bypass; pacemaker; ab2 - Immunization history:: Adult Immunizations up to date. - Social history:: Smoking status: Patient denies any tobacco usage or history of. ROS: 18:30 Constitutional: Negative for body aches, chills, fever, poor PO intake. cp 18:30 Eyes: Negative for injury, pain, redness, and discharge. cp 18:30 ENT: Negative for ear pain, sore throat, difficulty swallowing, difficulty handling secretions. 18:30 Cardiovascular: Negative for chest pain, edema, palpitations. 18:30 Respiratory: Negative for cough, shortness of breath, wheezing. 18:30 Abdomen/GI: Negative for vomiting, diarrhea, constipation, anorexia. 18:30 Back: Positive for flank pain, on the left, Negative for injury or acute deformity. 18:30 : Negative for hematuria, burning with urination, testicular pain 18:30 Skin: Negative for cellulitis, rash. 18:30 Neuro: Negative for altered mental status, dizziness, headache, syncope, weakness. 18:30 All other systems are negative. Exam: 18:35 Constitutional: The patient appears in no acute distress, alert, awake, cp non-diaphoretic, non-toxic, well developed, well nourished, uncomfortable. 18:35 Head/Face: Normocephalic, atraumatic. cp 18:35 Eyes: Periorbital structures: appear normal, Conjunctiva: normal, no exudate, no injection, Sclera: no appreciated abnormality, Lids and lashes: appear normal, bilaterally. 18:35 ENT: External ear(s): are unremarkable, Nose: is normal, Mouth: Lips: moist, Oral mucosa: moist, Posterior pharynx: Airway: no evidence of obstruction, patent. 18:35 Neck: ROM/movement: is normal, is supple, without pain, no range of motions limitations, no nuchal rigidity. 18:35 Chest/axilla: Inspection: normal, Palpation: crepitus, is not appreciated, tenderness, that is moderate, of the left lateral anterior chest and left lateral posterior chest. 18:35 Cardiovascular: Rate: normal, Rhythm: regular, Edema: is not appreciated, JVD: is not appreciated. 18:35 Respiratory: the patient does not display signs of respiratory distress, Respirations: labored breathing, is not present, intercostal retractions, are absent, shallow respirations, that is mild, Breath sounds: decreased breath sounds, that are moderate, are heard in the right posterior middle lobe and right posterior lower lobe, stridor, is not appreciated, wheezing: is not appreciated. 18:35 Abdomen/GI: Inspection: abdomen appears normal, Bowel sounds: active, all quadrants, Palpation: soft, in all quadrants, moderate abdominal tenderness, in the anterior aspect of left lateral abdomen and posterior aspect of left lateral abdomen, rebound tenderness, is not appreciated, voluntary guarding, is not appreciated, involuntary guarding, is not appreciated. 18:35 Back: pain, that is moderate, of the left subscapular area and left mid back, ROM is vertebral tenderness, is not appreciated. 18:35 Skin: cellulitis, is not appreciated, no rash present. 18:35 Neuro: Orientation: to person, place \\T\\ time. Mentation: is normal, Motor: moves all fours, strength is normal, Sensation: is normal. Vital Signs: 16:47 BP 123 / 66; Pulse 76; Resp 17; Temp 98.1(TE); Pulse Ox 94% on R/A; Weight 79.38 kg; ab2 Height 5 ft. 4 in. (162.56 cm); Pain 10/10; 19:10 BP 126 / 72; Pulse 76; Resp 18; Pulse Ox 100% ; ld1 20:05 BP 125 / 71; Pulse 72; Pulse Ox 100% ; ld1 21:00 BP 125 / 73; Pulse 74; Resp 18; Pulse Ox 100% on 3 lpm NC; ld1 21:45 BP 124 / 74; Pulse 73; Resp 18; Pulse Ox 100% on 3 lpm NC; ld1 22:15 BP 122 / 73; Pulse 71; Resp 18; Pulse Ox 90% on 3 lpm NC; ld1 22:45 BP 122 / 74; Pulse 71; Resp 18; Pulse Ox 100% on 3 lpm NC; ld1 23:00 Pulse Ox 86% on 3 lpm NC; ld1 23:09 BP 117 / 78; Pulse 82; Resp 18; Pulse Ox 100% on 3 lpm NC; ld1 16:47 Body Mass Index 30.04 (79.38 kg, 162.56 cm) ab2 MDM: 18:06 Patient medically screened. cp 19:00 Differential diagnosis: nephrolithiasis, pyelonephritis, UTI, diverticulitis, cp pancreatitis, pneumonia, pleural effusion. 20:00 Data reviewed: vital signs, nurses notes, lab test result(s), radiologic studies, CT cp scan. 20:00 Counseling: I had a detailed discussion with the patient and/or guardian regarding: the cp historical points, exam findings, and any diagnostic results supporting the discharge/admit diagnosis, lab results, radiology results. 20:50 Physician consultation: Gregor Waller was called at 20:50, was contacted at 20:50, regarding admission, to the telemetry unit. and will see patient in ED. 20:50 Data interpreted: direct entry midwife: rhythm is normal sinus rhythm, Pulse oximetry: on cp 3L(s) per nasal canula, is 100 %. Interpretation: acceptable. ED course: Patient requiring supplemental oxygen. Will admit for observation. 02/05 18:19 Order name: CBC with Diff; Complete Time: 19:00 cp 02/05 19:00 Interpretation: Normal except: RBC 3.69; HGB 11.1; HCT 34.6; MCHC 31.9; RDW 19.2; RAMAN% cp 85.6; LYM% 4.9; LYMA 0.4. 02/05 18:19 Order name: CMP; Complete Time: 19:00 cp 02/05 19:36 Interpretation: Normal except: CL 97; GLUC 131; BUN 27; CRE 4.27; GFR 14; ALK 131; ALB cp 3.3; GLOB 4.9; A/G 0.7. 02/05 18:19 Order name: Lipase; Complete Time: 19:00 cp 02/05 18:59 Order name: CBC Smear Scan; Complete Time: 19:00 EDMS 02/05 21:14 Order name: COVID-19 SARS RT PCR (Document "Date of Onset" if Symptomatic); Complete ld1 Time: 22:43 02/05 22:43 Order name: CRP la1 02/05 18:19 Order name: IV Saline Lock; Complete Time: 18:48 cp 02/05 18:19 Order name: Labs collected and sent; Complete Time: 18:48 cp 02/05 18:19 Order name: CT Chest Abdomen Pelvis W/O Contrast; Complete Time: 19:34 cp 02/05 23:25 Order name: C-Reactive Protein EDMS Administered Medications: 18:45 Drug: fentaNYL (PF) 25 mcg Route: IVP; Site: right wrist; jb4 Disposition Summary: 02/05/22 21:03 Hospitalization Ordered Hospitalization Status: Inpatient Admission cp Provider: Ashok Ackerman cp Location: Telemetry/MedSurg (Inpatient) cp Condition: Stable cp Problem: new cp Symptoms: have improved cp Bed/Room Type: Standard cp Room Assignment: 223(02/05/22 23:13) cg Diagnosis - Pleural effusion in other conditions classified elsewhere cp - Hypoxemia cp Forms: - Medication Reconciliation Form cp - SBAR form cp Addendum: 02/07/2022 10:49 Co-signature as Attending Physician, Eugene Simons MD. r n Signatures: Dispatcher [employer] EDFL Eugene Simons MD MD rn Attema, Lee, PRODUCTION CONTROL COORDINATOR-C PRODUCTION CONTROL COORDINATOR-Cla1 Geovanny Parsons PA PA cp Ember Lubin RN RN cg Bryson, James, RN RN jb4 Hayder Joshi2 Corrections: (The following items were deleted from the chart) 02/05 23:13 21:03 cp cg
--- NOTE | 2022-02-05 22:41 | P.HP ---
Certification for Inpatient Patient admitted to: Inpatient With expected LOS: >2 Midnights Patient will require the following post-hospital care: None Practitioner: I am a practitioner with admitting privileges, knowledge of patient current condition, hospital course, and medical plan of care. Services: Services provided to patient in accordance with Admission requirements found in Title 42 Section 412.3 of the Code of Federal Regulations Patient History Date of Service: 02/05/22 Reason for admission: Hypoxic respiratory failure History of Present Illness: 66-year-old male with history of chronic systolic congestive heart failure, ESRD on HD, diabetes mellitus type 2insulin-dependent, hypertension, hyperlipidemia, hypothyroidism, CAD with previous CABG presents emergency department for left flank pain. Patient was evaluated in the emergency department his labs did demonstrate his end-stage renal disease hemoglobin 11 hematocrit 34.6 white blood cell count 8.2 potassium is 4.3 BUN 27 he is due for dialysis tomorrow. Patient had CT of his chest abdomen pelvis without contrast which demonstrated large right pleural effusion present slightly larger than 2019 study left pleural effusion similar to the comparison study left lung base pleural effusion appears to be at least partially loculated there is bilateral lower lobe atelectasis change which could mask infiltrate moderate volume ascites is present no emergent GI or findings identifiable to 13 mm sized cystic masses are seen in the body and uncinate process of the pancreas not clearly seen on 2019 images which can be monitored with serial imaging. Initial plan was to discharge patient back home but he became mildly hypoxic on room air satting around 85-88% requiring nasal cannula. For this reason ED provider wishes to admit for further evaluation and management. Allergies No Known Drug Allergies Allergy (Verified 02/03/22 08:09) Unknown No Known Allergies Allergy (Uncoded 02/03/22 08:09) Unknown Home Medications: Aspirin Chewable [Aspirin Chewable*] 81 mg PO DAILY 04/08/19 Atorvastatin Calcium 40 mg PO DAILY 04/08/19 Clopidogrel Bisulfate [Clopidogrel] 75 mg PO DAILY 04/08/19 Linagliptin [Tradjenta] 5 mg PO DAILY 04/08/19 Levothyroxine [Synthroid*] 125 mcg PO [id number] 07/17/21 Insulin Glargine,Hum.rec.anlog [Basaglar Kwikpen U-100] 10 unit SQ BEDTIME 12/01/21 Midodrine HCl 1 tab PO DIRECTED 02/03/22 - Past Medical/Surgical History Diabetic: Yes -: IDDM -: HTN -: hyperlipidemia -: [place] -: anemia -: ESRD on HD -: cardiac stents -: CABG Psychosocial/ Personal History: Lives at home with his - Family History Father -: Diabetes Mother -: Diabetes Notes: no hx of illness Sister -: Diabetes Notes: 2 sisters, both from complications of diabetes - Social History Smoking Status: Never smoker Alcohol use: No CD- Drugs: No Caffeine use: No Place of Residence: Home Review of Systems 10-point ROS is otherwise unremarkable Respiratory: Cough, Shortness of Breath, SOB with Excertion Physical Examination - Physical Exam General: Alert, In no apparent distress HEENT: Atraumatic, PERRLA, Mucous membr. moist/pink, EOMI, Sclerae nonicteric Neck: Supple, 2+ carotid pulse no bruit, No LAD, Without JVD or thyroid abnormality Respiratory: Diminished, Crackles/rales Cardiovascular: Regular rate/rhythm, Normal S1 S2 Gastrointestinal: Normal bowel sounds, No tenderness Musculoskeletal: No tenderness Integumentary: No rashes Neurological: Normal gait, Normal speech, Normal strength at 5/5 x4 extr, Normal tone, Normal affect Lymphatics: No axilla or inguinal lymphadenopathy - Studies Laboratory Data (last 24 hrs) 02/05/22 18:30: Sodium 138, Potassium 4.3, BUN 27 H, Creatinine 4.27 H, Glucose 131 H, Total Bilirubin 0.8, AST 19, ALT 17, Alkaline Phosphatase 131 H, Lipase 47 L 02/05/22 18:30: WBC 8.2, Hgb 11.1 L, Hct 34.6 L, Plt Count 222 Assessment and Plan - Plan Assessment: Acute hypoxic respiratory failure secondary to bilateral pleural effusions Acute on chronic systolic congestive heart failure ESRD on HD Diabetes type 2insulin-dependent Hypertension Hyperlipidemia Hypothyroidism Incidental finding-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 Patient also will be seen by nephrology and have dialysis. Acute on chronic systolic congestive heart failure: Continue as above, volume status management with assistance of dialysis/nephrology. 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 Will likely need CT/MRI within 1 to 2 years to evaluate stability of suspected cyst. DVT PPX:Heparin Code status:Full Discharge Plan: Home Plan to discharge in: 48 Hours - Advance Directives Does patient have a Living Will: Yes Does patient have a Durable POA for Healthcare: Yes - Code Status/Comfort Care Code Status Assessed: Yes (Full code) Critical Care: No Time Spent Managing Pts Care (In Minutes): 55
[2022-02-05] MEDS ORDERED: ONDANSETRON 4 MG/2 ML VIAL IV PRN (23:28)
[2022-02-06] MEDS: HYDROCODONE/APAP 5/325 MG TAB PO PRN ×3 (00:38→13:19)
[2022-02-06 05:55] LABS: Absolute Lymphocytes (CBC) 0.4 K/uL (0.7-4.9); Lymphocytes % 6.1 % (15.3-44.8); MPV 8.2 fL (7.6-11.3); RBC Red Blood Cell Count 3.36 M/uL (4.33-5.43)
[2022-02-06 06:06] LABS: Albumin 2.9 g/dL (3.4-5.0); Bilirubin Total 0.6 mg/dL (0.2-1.0); Potassium 4.4 mmol/L (3.5-5.1); Protein, Total 7.3 g/dL (6.4-8.2)
[2022-02-06] MEDS: INSULIN -REGULAR HUMAN 50 UNIT/0.5 ML ML SQ SCH ×4 (07:30→21:00)
[2022-02-06] MEDS: HEPARIN 5000 UNIT/ML 1 ML VIAL SQ SCH ×2 (08:07→21:47)
--- NOTE | 2022-02-06 09:25 | P.PN ---
Subjective Date of Service: 02/06/22 Chief Complaint: Left flank pain Patient still complaining of pain in the left flank end-stage renal disease metabolic syndrome potassium was found to be elevated have pleural effusions right and right greater than the left eyes any fever or chills found to be mildly hypoxic Tested positive for Covid Review of Systems General: Weakness Respiratory: Shortness of Breath Musculoskeletal: Other (Left flank pain) Physical Examination - Vital Signs Temperature: 97.6 F Blood Pressure: 103/64 Pulse: 73 Respirations: 12 Pulse Ox (%): 97 - Physical Exam General: Alert, In no apparent distress, Oriented x3 Neck: Supple, No Thyromegaly Cardiovascular: No edema, Regular rate/rhythm, Normal S1 S2 Gastrointestinal: Normal bowel sounds, Soft and benign - Studies Laboratory Data (last 24 hrs) 02/05/22 18:30: Sodium 138, Potassium 4.3, BUN 27 H, Creatinine 4.27 H, Glucose 131 H, Total Bilirubin 0.8, AST 19, ALT 17, Alkaline Phosphatase 131 H, Lipase 47 L 02/05/22 18:30: WBC 8.2, Hgb 11.1 L, Hct 34.6 L, Plt Count 222 Assessment And Plan - Current Problems (Diagnosis) (1) SARS-CoV-2 positive Current Visit: Yes Status: Acute (2) End stage renal disease on dialysis Current Visit: Yes Status: Acute - Plan Patient is 66 years of age end-stage renal disease coronavirus positive metabolic syndrome. With left flank pain large right-sided pleural effusion which appears to be chronic left lung base seem to be slightly loculated to 30 mm size cystic masses in the body and the uncinate process of the pancreas/no clinical evidence of sepsis hemodynamically stable Doubt COVID pneumonia check him on room air is 97% on 2 L patient has chronic bilateral pleural effusion will check a chest x-ray today labs reviewed possible discharge
[2022-02-06] MEDS ORDERED: HOME MED 1 EA UNK (Midodrine Hcl [Midodrine Hcl] 10 MG Tablet) PO SCH (09:30)
[2022-02-06] MEDS ORDERED: MIDODRINE HCL 5 MG TABLET PO SCH (11:00)
--- NOTE | 2022-02-06 19:02 | RAD REPORT ---
EXAM DESCRIPTION: RAD - Chest Pa And Lat (2 Views) - 02/06/2022 6:32 pm CLINICAL HISTORY: Pleural effusions, shortness of breath COMPARISON: CT chest 02/05/2022 TECHNIQUE: Frontal and lateral views of the chest were obtained. FINDINGS: The lungs are underinflated. Increased interstitial opacification present. Upper lobe vas culature is prominent. Cardiomegaly is present. Defibrillator is in place. No pneumothorax is present . Small left-side large right-sided pleural effusions are present matching the prior day CT study. De lete select IMPRESSION: Large right-side and small left-side pleural effusions matching prior imaging. Heart, vasculature and lung markings are all prominent consistent with failure or volume overload.
--- NOTE | 2022-02-06 19:04 | RAD REPORT ---
EXAM DESCRIPTION: RAD - Chest Lateral Decubitus - 02/06/2022 6:32 pm CLINICAL HISTORY: Pleural effusions COMPARISON: Portable chest same date, CT chest February 05 TECHNIQUE: Right and left lateral decubitus films were obtained. FINDINGS: Neither of the pleural effusion shows a substantial amount of layering, particularly the l arge right-sided pleural effusion. CHF/ volume overload findings are still present. IMPRESSION: No significant layering of either of bilateral pleural effusions.
--- NOTE | 2022-02-06 19:53 | CON ---
Date of Consultation: 02/06/2022 Reason For Consult: ESRD, on dialysis. History Of Present Illness: Mr. Villalpando is a 66-year-old male with a past medical history significant for ESRD on dialysis at [facility] on Tuesday, , Tuesday schedule, chronic sys tolic heart failure, who presented to the emergency room because of left flank pain. The patient was evaluated in the ER and labs consistent with ESRD. He had a CT scan of his chest, abdomen, and pelv is, which showed a large right pleural effusion and left pleural effusion about the same as previous. He was also found to have some incidental findings on the pancreas with some cystic mass. Past Medical History: Significant for history of insulin-dependent diabetes, hypertension, hyperlipi demia, ESRD on dialysis, and cardiac stents with history of CABG. Social History: Lives at home with his . Family History: Significant for father with diabetes and mother with diabetes as well. Social History: No history of smoking or alcohol use reported. Review of Systems: Positive for sharp shortness of breath, pain in his left flank, and denies any chest pain. All other review of systems are negative. Physical Examination: Vital Signs: Temperature of 97.6, pulse rate of 73, respiratory rate of 12, and blood pressure 103/6 4. He was seen and examined during dialysis. HEENT: Shows atraumatic head. Lungs: Auscultation of the lungs revealed diminished breath sounds at bilateral bases. Heart: Auscultation of the heart revealed regular rate and rhythm. No murmurs were appreciated. No JVD was noted. Abdomen: Soft and nontender. Extremities: No evidence of edema. Neurologic: He is alert, awake, and oriented x3. No focal motor or neurological deficits were noted . Laboratory Data: Has been reviewed in detail. His anemia is stable. Platelet counts are stable. L aboratory data is otherwise consistent with ESRD with albumin of 2.9. Impression: 1.End-stage renal disease, on dialysis. The patient had dialysis today per his regular schedule. C ontinue ultrafiltration aggressively to prevent further accumulation of pleural effusions. 2.Hypoxic respiratory failure, secondary to bilateral pleural effusions. The patient will possibly need thoracentesis done. 3.Anemia, secondary to end stage renal disease. 4.Hypothyroidism. 5.Hypertension. 6.Incidental finding of cystic masses on the pancreas. Will need outpatient followup. Plan: Overall, the patient is doing okay. Plan for thoracentesis, improving volume status. Continu e Tuesday, , Tuesday dialysis and we will follow up closely. VV/MODL Voice ID: [id number] Report ID: [id number]
[2022-02-06] MEDS ORDERED: HOME MED 1 EA UNK (Insulin Glargine,Hum.Rec.Anlog [Basaglar Kwikpen U-100] 100 UNIT/ML Ins SQ SCH (21:00)
[2022-02-06] MEDS ORDERED: INSULIN GLARGINE 100 UNIT/ML SQ SCH (21:00)
[2022-02-06] MEDS: INSULIN GLARGINE 100 UNIT/ML SQ SCH (21:49)
[2022-02-06] MEDS: hydrOXYzine HCL 25 MG TAB PO PRN (23:18)
[2022-02-07 06:02] LABS: Absolute Lymphocytes (CBC) 0.4 K/uL (0.7-4.9); Hematocrit 30.9 % (39.6-49.0); Lymphocytes % 7.1 % (15.3-44.8); MPV 8.3 fL (7.6-11.3); RBC Red Blood Cell Count 3.31 M/uL (4.33-5.43)
[2022-02-07 06:10] LABS: Albumin 2.8 g/dL (3.4-5.0); Bilirubin Total 0.7 mg/dL (0.2-1.0); Protein, Total 7.1 g/dL (6.4-8.2)
[2022-02-07] MEDS: HYDROCODONE/APAP 5/325 MG TAB PO PRN ×2 (06:10→23:39)
[2022-02-07] MEDS: LEVOTHYROXINE SOD 0.125 MG TAB PO SCH (06:11)
[2022-02-07] MEDS: INSULIN -REGULAR HUMAN 50 UNIT/0.5 ML ML SQ SCH ×4 (07:30→21:00)
[2022-02-07] MEDS: HOME MED 1 EA UNK (Linagliptin [Tradjenta] 5 MG Tablet) PO SCH (09:00)
[2022-02-07] MEDS ORDERED: HOME MED 1 EA UNK (Clopidogrel Bisulfate [Clopidogrel] 300 MG Tablet) PO SCH (09:00)
[2022-02-07] MEDS: ASPIRIN 81 MG CHEWABLE TABLET PO SCH (09:22)
[2022-02-07] MEDS: ATORVASTATIN 40 MG TAB PO SCH (09:22)
[2022-02-07] MEDS: CLOPIDOGREL 75 MG TABLET PO SCH (09:22)
[2022-02-07] MEDS: HEPARIN 5000 UNIT/ML 1 ML VIAL SQ SCH ×2 (09:23→21:57)
--- NOTE | 2022-02-07 12:54 | P.PN ---
Subjective Date of Service: 02/07/22 Chief Complaint: Shortness of breath Doing well no new complaints vital signs are stable patient is mildly hypoxic room air sat is 90% has chronic renal failure Review of Systems General: Weakness, Malaise Respiratory: Shortness of Breath Physical Examination - Vital Signs Temperature: 96.8 F Blood Pressure: 105/59 Pulse: 75 Respirations: 18 Pulse Ox (%): 95 - Physical Exam General: Alert, In no apparent distress, Oriented x3 Respiratory: Clear to auscultation bilaterally, Diminished Cardiovascular: No edema, Normal pulses Assessment And Plan - Current Problems (Diagnosis) (1) SARS-CoV-2 positive Current Visit: Yes Status: Acute (2) End stage renal disease on dialysis Current Visit: Yes Status: Acute - Plan Patient is doing well no new complaints his chronic bibasilar pleural effusion appears to be chronically loculated effusion possible trapped lung greater than the left no evidence of obvious sepsis he is Covid positive intimal hypoxemia thoracentesis not indicated
[2022-02-07 15:53] LABS: Blood O2 Saturation 81.8 % (92-98.5)
[2022-02-07] MEDS: INSULIN GLARGINE 100 UNIT/ML SQ SCH (21:00)
[2022-02-07] MEDS: predniSONE 20 MG TAB PO SCH (21:56)
[2022-02-07] MEDS: ARFORMOTEROL TARTRATE 15 MCG/2 ML VIAL.NEB NEB SCH (23:20)
[2022-02-08] MEDS: hydrOXYzine HCL 25 MG TAB PO PRN ×2 (03:31→12:06)
[2022-02-08] MEDS: LEVOTHYROXINE SOD 0.125 MG TAB PO SCH (06:11)
[2022-02-08] MEDS: HYDROCODONE/APAP 5/325 MG TAB PO PRN (06:11)
[2022-02-08] MEDS: INSULIN -REGULAR HUMAN 50 UNIT/0.5 ML ML SQ SCH ×3 (07:30→16:30)
[2022-02-08] MEDS: ARFORMOTEROL TARTRATE 15 MCG/2 ML VIAL.NEB NEB SCH (08:39)
[2022-02-08] MEDS: HOME MED 1 EA UNK (Linagliptin [Tradjenta] 5 MG Tablet) PO SCH (09:00)
[2022-02-08] MEDS: predniSONE 20 MG TAB PO SCH (09:37)
[2022-02-08] MEDS: HEPARIN 5000 UNIT/ML 1 ML VIAL SQ SCH (09:37)
[2022-02-08] MEDS: ATORVASTATIN 40 MG TAB PO SCH (09:37)
[2022-02-08] MEDS: ASPIRIN 81 MG CHEWABLE TABLET PO SCH (09:37)
[2022-02-08] MEDS: CLOPIDOGREL 75 MG TABLET PO SCH (09:37)
--- NOTE | 2022-02-08 10:49 | P.PN ---
Subjective Date of Service: 02/08/22 Subjective: No new changes, No C/O voiced, Improving Review of Systems 10-point ROS is otherwise unremarkable Physical Examination - Vital Signs Temperature: 96.3 F Blood Pressure: 105/59 Pulse: 71 Respirations: 20 Pulse Ox (%): 100 - Physical Exam General: Alert, In no apparent distress, Oriented x3 HEENT: Atraumatic, PERRLA, EOMI Neck: Supple, JVD not distended Respiratory: Clear to auscultation bilaterally, Normal air movement Cardiovascular: Regular rate/rhythm, Normal S1 S2 Gastrointestinal: Normal bowel sounds, No tenderness Musculoskeletal: No tenderness Integumentary: No rashes Neurological: Normal speech, Normal tone, Normal affect Lymphatics: No axilla or inguinal lymphadenopathy - Studies Medications List Reviewed: Yes Assessment & Plan - Problems (Diagnosis) (1) End stage renal disease on dialysis Current Visit: Yes Status: Acute (2) SARS-CoV-2 positive Current Visit: Yes Status: Acute (3) Congestive heart failure Onset Date: 04/11/18 Current Visit: No Status: Acute Qualifiers: (4) Diabetes mellitus Onset Date: 02/28/15 Current Visit: No Status: Chronic (5) Hyperlipidemia Onset Date: 02/28/15 Current Visit: No Status: Chronic Qualifiers: (6) Hypertension Onset Date: 02/28/15 Current Visit: No Status: Chronic - Advance Directives Does patient have a Living Will: No Does patient have a Durable POA for Healthcare: No
[2022-02-08 10:54] VITALS: O2SAT 100
--- NOTE | 2022-02-08 14:22 | ECHO ---
HEIGHT: 5 ft 4 in WEIGHT: 175 lb 0 oz DATE OF STUDY: 02/08/[address]: Ashok Ackerman MD 2-DIMENSIONAL: YES M.MODE: YES DOPPLER: YES COLOR FLOW: YES TDS: PORTABLE: DEFINITY: BUBBLE STUDY: DIAGNOSIS: RESPIRATORY FAILURE CARDIAC HISTORY: CATHERIZATION: NO SURGERY: YES PROSTHETIC VALVE: NO PACEMAKER: NO MEASUREMENTS (cm) DIASTOLIC (NORMALS) SYSTOLIC (NORMALS) IVSd 1.1 (0.6-1.2) LA Diam 3.5 (1.9-4.0) LVEF 28% LVIDd 5.5 (3.5-5.7) LVIDs 4.7 (2.0-3.5) %FS 13% LVPWd 1.2 (0.6-1.2) Ao Diam 2.7 (2.0-3.7) 2 DIMENSIONAL ASSESSMENT: RIGHT ATRIUM: NORMAL LEFT ATRIUM: NORMAL RIGHT VENTRICLE: NORMAL LEFT VENTRICLE: DILATED TRICUSPID VALVE: NORMAL MITRAL VALVE: NORMAL PULMONIC VALVE: NORMAL AORTIC VALVE: NORMAL PERICARDIAL EFFUSION: NONE AORTIC ROOT: NORMAL LEFT VENTRICULAR WALL MOTION: ANTEROSEPTAL AND APICAL SEVERE HYPOKINESIS. DOPPLER/COLOR FLOW: COMMENTS: SEVERELY DEPRESSED LEFT VENTRICULAR EJECTION FRACTION 25-30%. WALL MOTION ABNORMALITY SEEN ABOVE. MILD TRICUSPID REGURGITATION. TECHNOLOGIST: DANA LOZOYA
--- NOTE | 2022-02-08 17:39 | P.PN ---
Date of Service: 02/08/22 Vital Signs Temp Pulse Resp BP Pulse Ox 96.3 F L 77 20 123/62 97 02/08/22 12:00 02/08/22 12:00 02/08/22 12:00 02/08/22 12:00 02/08/22 12:00 Medications Hydrocodone Bitart/Acetaminophen (Hydrocodone/Apap 5/325 Mg Tab) 1 tab PO Q6H PRN PRN Reason: Pain scale 5-7 (Moderate) Last Admin: 02/08/22 06:11 Dose: 1 tab Documented by: Arformoterol Tartrate (Arformoterol Tartrate 15 Mcg/2 Ml Vial.Neb) 15 mcg NEB BIDRESP [facility] Last Admin: 02/08/22 08:39 Dose: 15 mcg Documented by: Aspirin (Aspirin 81 Mg Chewable Tablet) 81 mg PO DAILY [facility] Last Admin: 02/08/22 09:37 Dose: 81 mg Documented by: Atorvastatin Calcium (Atorvastatin 40 Mg Tab) 40 mg PO DAILY [facility] Last Admin: 02/08/22 09:37 Dose: 40 mg Documented by: Clopidogrel Bisulfate (Clopidogrel 75 Mg Tablet) 75 mg PO DAILY [facility] Last Admin: 02/08/22 09:37 Dose: 75 mg Documented by: Heparin Sodium (Porcine) (Heparin 5000 Unit/Ml 1 Ml Vial) 5,000 unit SQ Q12HR [facility] Last Admin: 02/08/22 09:37 Dose: 5,000 unit Documented by: Home Med (Linagliptin [Tradjenta]) 5 mg PO DAILY [facility] Last Admin: 02/08/22 09:00 Dose: Not Given Documented by: Hydroxyzine HCl (Hydroxyzine Hcl 25 Mg Tab) 25 mg PO Q6HP PRN PRN Reason: ITCHING Last Admin: 02/08/22 12:06 Dose: 25 mg Documented by: Insulin Glargine (Insulin Glargine 100 Unit/Ml) 10 unit SQ BEDTIME [facility] Last Admin: 02/07/22 21:00 Dose: Not Given Documented by: Insulin Human Regular (Insulin -Regular Human 50 Unit/0.5 Ml Ml) 0 unit SQ ACHS [facility]; Protocol Last Admin: 02/08/22 11:30 Dose: Not Given Documented by: Levothyroxine Sodium (Levothyroxine Sod 0.125 Mg Tab) 0.125 mg PO [id number] [facility] Last Admin: 02/08/22 06:11 Dose: 0.125 mg Documented by: Midodrine (Midodrine Hcl 5 Mg Tablet) 10 mg PO DIRECTED [facility] Ondansetron HCl (Ondansetron 4 Mg/2 Ml Vial) 4 mg IV Q6HP PRN PRN Reason: NAUSEA / VOMITING Prednisone (Prednisone 20 Mg Tab) 20 mg PO BID [facility] Last Admin: 02/08/22 09:37 Dose: 20 mg Documented by: Sodium Chloride (Flush Normal Saline 10 Ml) 10 ml IV BID [facility] Last Admin: 02/08/22 09:00 Dose: 10 ml Documented by: Assessment/ Plan: Nephrology No dyspnea No chest pain No acute events overnight Vitals, medications, blood work and imaging reviewed in the chart. NAD. NCAT. MMM. Neck supple. Normal respiratory effort. RRR. Abd ND. No C/C/E. No rash. AAO. Normal speech. ESRD -HD TIW TTS Chronic Hypotension -Continue Midodrine Systolic CHF, A/C -HD with UF -Start CoQ10 DM II with CKD -Continue Meghana FELIX Moderate malnlutrition -Start Nepro -Nephrovite Anemia in CKD -Start Retacrit CKD MBD -Start Vitamin D
--- NOTE | 2022-02-08 17:45 | P.DS ---
Discharge Date: 02/08/22 Disposition: ROUTINE DISCHARGE Discharge Condition: GOOD Reason for Admission: Shortness of breath - Problems (1) End stage renal disease on dialysis Current Visit: Yes Status: Acute (2) SARS-CoV-2 positive Current Visit: Yes Status: Acute (3) Congestive heart failure Onset Date: 04/11/18 Current Visit: No Status: Acute Qualifiers: (4) Diabetes mellitus Onset Date: 02/28/15 Current Visit: No Status: Chronic (5) Hyperlipidemia Onset Date: 02/28/15 Current Visit: No Status: Chronic Qualifiers: (6) Hypertension Onset Date: 02/28/15 Current Visit: No Status: Chronic Vital Signs/Physical Exam: Temp Pulse Resp BP Pulse Ox 96.3 F L 77 20 123/62 97 02/08/22 12:00 02/08/22 12:00 02/08/22 12:00 02/08/22 12:00 02/08/22 12:00 Laboratory Data at Discharge: WBC 6.1 K/uL (4.3-10.9) 02/07/22 05:12 Hgb 10.0 g/dL (13.6-17.9) L 02/07/22 05:12 Hct 30.9 % (39.6-49.0) L 02/07/22 05:12 Plt Count 201 K/uL (152-406) 02/07/22 05:12 Sodium 136 mmol/L (136-145) 02/07/22 05:12 Potassium 4.0 mmol/L (3.5-5.1) 02/07/22 05:12 BUN 22 mg/dL (7-18) H 02/07/22 05:12 Creatinine 4.08 mg/dL (0.55-1.3) H 02/07/22 05:12 Glucose 71 mg/dL (74-106) L 02/07/22 05:12 Total Bilirubin 0.7 mg/dL (0.2-1.0) 02/07/22 05:12 AST 10 U/L (15-37) L 02/07/22 05:12 ALT 12 U/L (12-78) 02/07/22 05:12 Alkaline Phosphatase 105 U/L (45-117) 02/07/22 05:12 Lipase 47 U/L (73-393) L 02/05/22 18:30 Home Medications: Aspirin Chewable [Aspirin Chewable*] 81 mg PO DAILY 04/08/19 Atorvastatin Calcium 40 mg PO DAILY 04/08/19 Clopidogrel Bisulfate [Clopidogrel] 75 mg PO DAILY 04/08/19 Linagliptin [Tradjenta] 5 mg PO DAILY 04/08/19 Levothyroxine [Synthroid*] 125 mcg PO [id number] 07/17/21 Insulin Glargine,Hum.rec.anlog [Basaglar Kwikpen U-100] 10 unit SQ BEDTIME 12/01/21 Midodrine HCl 1 tab PO DIRECTED 02/03/22 Ondansetron [Zofran*] 4 mg IV Q6HP PRN vial 02/08/22 Pharmacy Consult 1 ea XX DAILYPRN PRN each 02/08/22 predniSONE [Prednisone*] 20 mg PO BID #11 tab 02/08/22 New Medications: predniSONE [Prednisone*] 20 mg PO BID #11 tab Physician Discharge Instructions: -DC IV and DC home -Follow-up with PCP in 1 to 2 weeks -Follow-up with nephrology for hemodialysis -Please call Dr. Phelps at [phone] if any questions regarding hospital stay -Please call nursing station at [phone] if any nursing or medication questions -Return to the emergency room if symptoms worsen Diet: AHA Activity: Fall precautions Followup: Jack Corley DO [Primary Care Provider] -
[2022-02-08] MEDS ORDERED: EPOETIN ALFA-EPBX 10,000 UNIT/ML VIAL SQ ONE (18:00)
[2022-02-08 18:16] VITALS: BP 118/70; TEMP 96.2
[2022-02-08] MEDS ORDERED: DOCUSATE NA 100 MG CAP PO SCH (21:00)
[2022-02-08] MEDS ORDERED: NEPRO SHAKE 237 ML CAN PO SCH (21:00)
[2022-02-09] MEDS ORDERED: MULTIVITAMINS,THERAPEUT 1 TAB PO SCH (09:00)
[2022-02-09] MEDS ORDERED: CALCITROL 0.25 MCG CAP PO SCH (09:00)
[2022-02-09] MEDS ORDERED: COENZYME Q10- 200 MG CAP PO SCH (09:00)
[2022-02-09] MEDS ORDERED: VITAMIN D 5,000 UNIT CAP PO SCH (09:00)
== END 2022-02-08 19:29 | disposition home or self-care (01) | DRG 291 ==
LOC: ER 16:38 → ERHOLD 21:51 → 2ND 23:23
PROVIDERS: ADMIT Internal Medicine Sleep Medicine; ATTEND Hospitalist
PROC: 5A1D70Z Performance of Urinary Filtration, Intermittent, Less than 6 Hours Per Day (ICD-10-PCS; principal; 2022-02-06)
DX: I13.2 Hypertensive heart and chronic kidney disease with heart failure and with stage 5 chronic kidney disease, or end stage renal disease (principal); U07.1 COVID-19; N18.6 End stage renal disease; J96.01 Acute respiratory failure with hypoxia; I50.23 Acute on chronic systolic (congestive) heart failure; R18.8 Other ascites; K86.2 Cyst of pancreas; E44.0 Moderate protein-calorie malnutrition; E11.22 Type 2 diabetes mellitus with diabetic chronic kidney disease; D63.1 Anemia in chronic kidney disease; I25.10 Atherosclerotic heart disease of native coronary artery without angina pectoris; M89.9 Disorder of bone, unspecified; E03.9 Hypothyroidism, unspecified; I95.89 Other hypotension; E78.5 Hyperlipidemia, unspecified; I25.2 Old myocardial infarction; Z95.0 Presence of cardiac pacemaker; Z99.2 Dependence on renal dialysis; Z95.1 Presence of aortocoronary bypass graft; Z79.4 Long term (current) use of insulin; Z79.890 Hormone replacement therapy; Z79.899 Other long term (current) drug therapy; Z68.30 Body mass index [BMI] 30.0-30.9, adult; Z79.02 Long term (current) use of antithrombotics/antiplatelets; Z79.52 Long term (current) use of systemic steroids; Z79.82 Long term (current) use of aspirin
CPT/HCPCS: 36415; 49083; 71046; 71250; 74176; 80053; 82805; 82947; 83690; 85025; 85049; 85610; 85730; 86140; 89050; 90935; 93306; 94640; 96365; 96374; 99285; J1644; J3010; J7512; J7605; P9047; Q5106; U0003

== ENCOUNTER 2022-02-15 08:23 | Emergency (ER) | payer OTHER ==
--- OUTSIDE RECORDS SUMMARY | 2022-02-15 08:33 | XMS REPORT | Continuity of Care Document ---
:1955 Author Organization [facility] t Address formerly [facility] [place] [address] Care Team Providers Name Role Phone ISABELLA [...] Number Effective Date Expiration Date Ganesh allred [facility] ALL [id number] 2019 00:00:00 WELLCARE АННА [id number] 2019 00:00:00 HUMANA MEDICARE [id number] 2021 ADV 00:00:00 WELLCARE STEFFI [id number] 2020 STAR PLUS 00:00:00 WELLCARE OF MAMTA - [id number] 2019 TEXANPLUS 00:00:00 (MEDICARE REPLACEMENT/ADVANT AGE - HMO) Problems This patient has no known problems. Allergies, Adverse Reactions, Alerts Allergy Allergy Status Severity Reaction(s) Onset Inactive Treating Comm ents Source Name Type Date Date Clinician No Known DA Active U 0 [facility]ie 5-16 Clear s 00:00: Padron 00 [facility] No Known DA Active U 0 [facility] Allergie 5-16 Clear s 00:00: Apdron 00 [facility] NO KNOWN Drug Active Univers ALLERGIE Class ity of S [facility] NO KNOWN Allergy Active [facility] ALLERGIE S Medications Ordered Filled Start Stop Current Ordering Indication Dosage Frequency Signature Comments Components Source Medication Medication Date Date Medication? Clinician (SIG) Name Name Aspirin 81 Aspirin 81 Yes Isabella [address] [facility] Clopidogrel Clopidogrel Yes Isabella [address] [facility] Bisulfate Bisulfate [place] [facility] Basaglar Basaglar Yes Isabella inject [address] [facility] KwikPen KwikPen [place] units [facility] Tradjenta Tradjenta Yes Isabella [address] [facility] Senna Senna Yes Isabella [address] [facility] [place] at bedtime [facility] Lantus Lantus Yes Isabella as [facility] SoloStar SoloStar [place] directed Serenity k[facility] Aspirin Aspirin Yes Isabella TAKE 1 [facility] [place] TABLET BY [facility] EVERY DAY [facility] Atorvastati Atorvastati Yes Isabella TAKE [address] [facility] [facility] n Calcium n Calcium [place] TABLET BY [facility] BED[facility] Midodrine Midodrine Yes Isabella [address] HCl HCl [facility] Lorazepam Lorazepam Yes Isabella [address] [facility] [place] as needed [facility] Synthroid Synthroid Yes Isabella [address] [facility] [place] on an [facility] stomach [facility] Atorvastati Atorvastati Yes Isabella [address] n Calcium n Calcium [place] [facility] - [facility] l [facility] Vital Signs Vital Name Observation [...] Date/Time Type Type Clinicians Facility Department ID 2022-02-10 [facility] [id number] [facility] 09[facility]24:01 [facility] [id number] [place] [address] 2022-01-22 [facility] [id number] [facility] 10:07:00 Isabella 80538 [facility] 2021-12-02 Outpatient Co[place], [facility] [id number] 14:22:20 Isabella 38946 [facility] 2021-12-02 Outpatient Coffman, [facility] [id number] [facility] 13:47:46 Isabella 52201 [facility] 2021-12-02 Outpatient Coffman, [facility] [id number] 13:38:19 Isabella 74653 [facility] 2021-12-02 Outpatient Coffman, [facility] [id number] 13:27:09 Isabella 66968 [facility] 2021-12-02 Outpatient Coffman, [facility] [id number] 12:41:17 Isabella 78284 [facility] 2021-12-02 Outpatient Coffman, [facility] [id number] 12:35:51 Isabella 70572 [facility] 2021-12-02 Outpatient Coffman, [facility] [id number] 12:35:15 Isabella 71710 [facility] 2021-12-02 Outpatient Coffman, [facility] [id number] 12:07:23 Isabella 60432 [facility] 2021-12-02 Outpatient Coffman, [facility] [id number] 11:39:10 Isabella 54473 [facility] 2021-12-02 Outpatient Coffman, [facility] [id number] 11:20:23 Isabella 50543 [facility] 2021-12-02 Outpatient Coffman, [facility] [id number] 11:18:51 Isabella 49191 [facility] 2021-12-02 Outpatient Coffman, [facility] [id number] 11:16:22 [facility] 708[address] [facility] 2021-12-02 Outpatient Meghna, [facility] STL[facility] [id number] 11:05:05 [facility] 66759 [facility] 2020-12-19 Inpatient Espinoza Villagran HCACL DAYS [id number] [facility] 13:00:00 [id number] [facility] 2020-11-14 Inpatient ER KALDIS, [facility] Gastro [id number] [facility] 21:46:00 ARBEN 2020-06-20 Inpatient Espinoza Villagran [facility] DAYS [id number] [facility] 13:00:00 [id number] [facility] 2020-06-18 Inpatient Espinoza Villagran HC[facility] DAYS [id number] [facility] 08:30:00 [id number] [facility] 2019-05-04 [facility] [id number] [facility] 17:34:38 2022-02-09 2022-02-09 ambulatory STLMLC STLC [id number] [facility] 2022-01-22 2022-01-22 ambulatory STLMLC [facility]LMLC [id number] [facility] 2022-01-18 2022-01-18 ambulatory STLMLC STLMLC [id number] [facility]00 [facility] 2022-01-18 2022-01-18 ambulatory STLMLC STLMLC [id number] [facility] 2021-12-28 2021-12-28 Outpatient EL SLE [facility] [id number] [facility] 00:00:00 00:00:00 2021-12-22 2021-12-22 ambulatory STLMLC [facility] [id number] [facility] 2021-11-27 2021-11-27 Outpatient EL [facility] [id number] [facility] 00:00:00 00:00:00 2021-10-26 2021-10-26 ambulatory STLMLC STLMLC [id number] [facility] 2021-10-14 2021-10-14 ambulatory STLMLC STLMLC [id number] [facility] 2021-10-12 2021-10-12 Outpatient EL DALLIN [facility] SLE [id number] [facility] 00:00:00 23:59:00 HUMERA 2021-10-12 2021-10-12 Emergency ER ROSSI, [facility] Emergency [id number] SLE 09:11:00 16:00:00 YANIRA 2021-10-08 2021-10-08 ambulatory STLMLC [facility]LML[facility] [id number] [facility] 2021-10-05 2021-10-05 ambulatory STLMLC STLMLC [id number] [facility] 2021-09-30 2021-09-30 ambulatory STLMLC [facility]LMLC [id number] [facility] 2021-08-11 2021-08-11 Outpatient STLMLC [facility] [id number] [facility] 2021-08-03 2021-08-03 Outpatient [facility] [id number] [facility] 00:00:00 23:59:00 Yordy Medicin e 2021-08-03 2021-08-03 Emergency ER [facility] Emergency [id number] SLE 11:01:00 11:01:00 2021-07-29 2021-07-29 Outpatient STLMLC [facility] [id number] [facility] 2021-07-23 2021-07-23 Outpatient EL [facility] [id number] SLE 00:00:00 00:00:00 2021-07-23 2021-07-23 Outpatient STLMLC [facility] [id number] [facility] 2021-07-14 2021-07-14 Outpatient STLMLC [facility] [id number] [facility] 2021-07-08 2021-07-08 Outpatient STLMLC STLC [id number] [facility] 2021-07-08 2021-07-08 Outpatient STLMLC [facility] [id number] [facility] 2021-06-26 2021-06-26 Outpatient EL SABEROLA, [facility] [id number] [facility] 00:00:00 00:00:00 HUMERA 2021-06-26 2021-06-26 Outpatient SABEROLA, [facility] [id number] [facility] 00:00:00 00:00:00 HUMERA 2021-06-26 2021-06-26 Outpatient EL [facility] [id number] [facility] 00:00:00 00:00:00 2021-06-22 2021-06-22 Outpatient STLMLC [facility] [id number] [facility] 2021-06-22 2021-06-22 Outpatient STLMLC STLC [id number] [facility] 2021-06-22 2021-06-22 Outpatient STLMLC [facility]LMLC [id number] [facility] 2021-06-19 2021-06-19 Outpatient EL [facility] [id number] [facility] 00:00:00 00:00:00 2021-06-19 2021-06-19 Outpatient STLMLC [facility]ML[facility] [id number] [facility] 2021-06-05 2021-06-05 Outpatient EL SLE SLE [id number] [facility] 00:00:00 00:00:00 2021-05-25 2021-05-25 Emergency ER [facility] Emergency [id number] [facility] 15:33:00 15:33:00 2021-05-25 2021-05-25 Outpatient STLMLC [facility]LML[facility] [id number] [facility] 2021-05-22 2021-05-22 Outpatient STLMLC [facility] [id number] [facility] 2021-05-21 2021-05-21 Outpatient STLMLC [facility] [id number] [facility] 2021-04-09 2021-04-09 Outpatient STLMLC [facility]LML[facility] [id number] [facility] 2021-01-21 2021-01-21 Outpatient STLMLC [facility]LMLC [id number] [facility] 2021-01-07 2021-01-07 Outpatient STLMLC [facility]LML[facility] [id number] [facility] 2020-12-30 2020-12-30 [facility] [id number] [facility] 00:00:00 00:00:00 2020-12-26 2020-12-26 Outpatient EL SLE SLE [id number] [facility] 00:00:00 00:00:00 2020-12-18 2020-12-18 Outpatient EL SLE SLE [id number] [facility] 00:00:00 00:00:00 2020-11-10 2020-11-10 Outpatient STLMLC [facility] [id number] [facility] 2020-10-08 2020-10-08 Outpatient STLMLC [facility]LML[facility] [id number] [facility] 2020-08-15 2020-08-[address] [facility] STLC [id number] [facility] 2020-06-25 2020-06-25 [facility] [id number] 15:00:00 15:00:00 [place] [employer] s - Drive [facility] Medicine Outpati ent Clinics 2020-06-25 2020-06-25 [facility] [id number] 15:00:00 15:00:00 t QuantHouse s - Ecorithm [facility] [place] Medicine Outpati ent Clinics 2020-03-12 2020-03-12 [facility] [id number] 13:45:00 13:45:[address] [facility] [place] Medicine Outpati ent Clinics 2020-02-12 2020-02-12 Outpatient Melodie WALL [facility] [id number] 09:00:00 09:00:00 CIERRA bruner o f [facility] 2019-12-26 2019-12-26 Outpatient Jony-Mbayo VFP VFP [id number] [facility] 07:15:00 07:15:00 _A_AH [id number] Family Practic e 2019-12-26 2019-12-26 Outpatient Jony-Mbayo VFP VFP [id number] [facility] 07:15:00 07:15:00 _A_AH [id number] Family Practic e 2019-12-10 2019-12-10 [facility] [id number] 13:30:00 13:30:00 t QuantHouse s - Ecorithm [facility] [place] Medicine Outpati ent Clinics 2019-09-26 2019-09-26 [facility] [id number] 08:23:00 08:23:00 t QuantHouse s smsPREP [facility] [place] Medicine Outpati ent Clinics 2019-09-20 2019-09-20 [facility] [id number] 16:58:00 16:58:[address] [facility] [place] Medicine Outpati ent Clinics 2019-08-10 2019-08-10 [facility] [id number] 09:15:00 09:15:00 [place] [address] Luke s - Drive [facility] [place] Medicine Outpati ent Clinics 2019-07-11 2019-07-11 [facility] [id number] 16:55:00 16:55:00 [place] [address] Luke s - Drive [facility] [place] Medicine Outpati ent Clinics 2019-07-11 2019-07-11 [facility] [id number] 10:15:00 10:15:00 [place] Ecorithm Luke s - Drive [facility] [place] Medicine Outpati ent Clinics 2019-07-06 2019-07-06 [facility] [id number] 16:41:00 16:41:00 [place] GiveNext LuFlypay s - Drive [facility] [place] Medicine Outpati ent Clinics 2019-05-04 2019-05-04 [facility]patient [facility] [id number] 09:00:00 13:49:28 2019-05-04 2019-05-04 Inpatient E M[facility]H [facility] [id number] [facility] 12:18:00 10:21:00 2019-05-04 2019-05-[address] [id number] 09:00:00 09:00:00 t; speedy MAE & zohreh of Allen HUSAIN Vascular Yvonne Crawford - Physic i [place] [facility] 2019-04-20 2019-04-20 [facility] [id number] 09:30:00 09:30:00 t [place] [employer] s - Drive [facility] [place] Medicine Outpati ent Clinics 2019-02-27 2019-02-27 [facility] [id number] 10:00:00 10:00:00 t [place] [employer] s - Drive [facility] [place] Medicine Outpati ent Clinics 2019-01-24 2019-01-24 [facility] [id number] 10:45:00 10:45:00 [place] Ecorithm LuFlypay s - Drive [facility] [place] Medicine Outpati ent Clinics 2019-01-10 2019-01-10 [facility] [id number] 07:54:00 07:54:00 t [place] Net[employer]on s - Drive [facility] Medicine l Medicine Outpati ent Clinics 2018-11-15 2018-11-15 [facility] [id number] 10:00:00 10:00:00 t [place] [employer] Vision s - Drive [facility] Medicine Medicine Outpati ent Clinics 2018-10-12 2018-10-12 [facility] [id number] 15:00:00 15:00:00 t Specialty/U Serenity kes - [facility] Outpati ent Clinics 2018-05-08 2018-05-08 [facility] [id number] 08:20:00 08:20:00 t [place] [employer] Vision s - Ecorithm [facility] [place] Medicine Outpati ent Clinics 2018-05-01 2018-05-01 [facility] [id number] 08:46:00 08:46:00 t [place] [employer] s - Ecorithm [facility] [place] Medicine Outpati ent Clinics 2018-04-27 2018-04-27 [facility] [id number] 09:00:00 09:00:00 t [place] [employer] Vision s - Ecorithm [facility] [place] Medicine Outpati ent Clinics 2018-04-20 2018-04-20 [facility] [id number] 13:36:00 13:36:00 t [place] [employer] Vision s - Ecorithm [facility] [place] Medicine Outpati ent Clinics 2018-04-12 2018-04-12 [facility] [id number] 16:11:00 16:11:00 t [place] [employer] Vision s - Ecorithm [facility] [place] Medicine Outpati ent Clinics 2018-04-10 2018-04-10 [facility] [id number] 14:45:00 14:45:00 t [place] [employer] Vision s - Ecorithm [facility] [place] Medicine Outpati ent Clinics Results Test Description Test Time Test Comments Results Result Comments Source BODY FLUID CULTURE + GRAM STAIN 2021-10-15 10:11:18 Test Item Value Reference Range Interpretation Comme nts CULTURE (BEAKER) (test code = 1095) No growth U/S, [id number] 08:12:00DR STRIBLINGLabs to be ordered:->Body Fluid Culture (w/Gram Stain, C\T\S)Labs to be ordered:->Cell CountReason for exam:->abdominal distension [facility] : 1955 Sex: MFINAL REPORT Ultrasound guided paracentesis. Clinical History: Ascites. Sedation: None. Pouch Maker: Char Van PA-C Pear Picker: None. Estimated Blood Loss: < 1 cc. [...] was achieved with 2% lidocaine, a 5 Djiboutian one-step catheter was advanced into the peritoneal cavity under ultrasoundguidance. After completion of drainage, the catheter was removed. There was no evidence of complication. Impression:Successful ultrasound guided paracentesis. Signed: Raymond Coffman MDReport Verified Date/Time: 10/13/2021 08:12:56 Reading Location: [address] Ultrasound Reading Room BODY FLUID CELL [...] (BEAKER) (test code = 2873) COMPREHENSIVE METABOLIC [id number] 10:23:58 Test Item Value Reference Range Interpretation [...] S NOT APPLICABLE FOR DIALYSIS PATIEN TS. Transit Mix Operator ID - JORDAN MB-TYPE NATRIURETIC FACTOR (BNP)2021-10-12 10:12:10 Test Item Value Reference Range Interpretation Comments B-TYPE NATRIURETIC PEPTIDE 4245 pg/mL 0-100 H (BEAKER) (test code = 700) Transit Mix Operator ID - JORDAN [id number] 10:01:45 Test Item Value Reference Range Interpretation [...] = 2801) BODY FLUID CULTURE + GRAM [id number] 14:14:13 Test Item Value Reference Range Interpretation Comments CULTURE (BEAKER) (test code No growth = 1095) GRAM STAIN RESULT (BEAKER) <1+ WBCs (test code = 1123) GRAM STAIN RESULT (BEAKER) No organisms seen (test code = 25937) POCT-GLUCOSE [id number] 12:15:12 Test Item Value Reference Range Interpretation Comments POC-GLUCOSE METER 165 mg/dL 70-110 H : TESTED A T [facility] 6720 (BEAKER) (test code = CIERA Sewell [facility], 1538) 42189: Transit Mix Operator/Techni elsie ID = [id number] for ROBYN YANCEY BASIC METABOLIC [id number] 08:52:50 Test Item Value Reference Range Interpretation [...] S NOT APPLICABLE FOR DIALYSIS PATIEN TS. Transit Mix Operator ID - [id number] 08:49:00 Test Item Value Reference Range Interpretation Comments MAGNESIUM (BEAKER) (test code = 2.1 mg/dL 1.6-2.6 627) Transit Mix Operator ID - ADMINPOCT-GLUCOSE [id number] 07:57:04 Test Item Value Reference Range Interpretation Comments POC-GLUCOSE METER 178 mg/dL 70-110 H : TESTED A T [facility] 6720 (BEAKER) (test code = [facility], 1538) 78214: Transit Mix Operator/Techni elsie ID = [id number] for ROBYN YANCEY CBC W/PLT COUNT & AUTO [id number] 06:39:06 Test Item Value Reference Range Interpretation [...] PERCENT (BEAKER) (test code = 2801) POCT-GLUCOSE [id number] 22:12:47 Test Item Value Reference Range Interpretation Comments POC-GLUCOSE METER 157 mg/dL 70-110 H : TESTED A T [facility] 6720 (BEAKER) (test code = [facility], 1538) 93906: Transit Mix Operator/Techni elsie ID = [id number] for Pawel Reynolds POCT-GLUCOSE [id number] 17:45:52 Test Item Value Reference Range Interpretation Comments POC-GLUCOSE METER 159 mg/dL 70-110 H : TESTED A T [facility] 6720 (BEAKER) (test code = [facility], 1538) 96593: Transit Mix Operator/Techni elsie ID = [id number] for Erma Kingston [id number] 13:58:31Medical Cytology Report Case: [id number] Authorizing Provider: Mauricio Perry, Collected: 08/03/2021 02:35 PM Ordering Location: [facility] Emergency Department Received: 08/04/2021 09:29 AM Pathologist: Genevieve Mendez MD Specimen: Perit cabezas Fluid PERITONEAL FLUID (CYTOSPINS): - NEGATIVE FOR MALIGNANCY Signing Pathologist Direct Phone Line: [phone] signed by Genevieve Mendez MD on 08/04/2021 at 1:58 [id number], history of cirrhosis and ESRD.PERITONEAL FLUIDReceived 1600 mls brown fluid; prepared 4 cytospins. Performed. [facility]BaylS[facility], Department of Pathology, [address] [place] [address], [facility], Department of Pathology, [address] [place] [address] 213[address], [facility], Department of Pathology, [address] [place] [address] 16388, BHNA-GLUCOSE [id number] 12:51:45 Test Item Value Reference Range Interpretation Comments POC-GLUCOSE METER 110 mg/dL 70-110 : TESTED A T [facility] 6720 (BEAKER) (test code = CIERA Sewell [facility], 1538) 09673: Transit Mix Operator/Techni elsie ID = [id number] for Erma Kingston LACTATE DEHYDROGENASE (LDH), BODY [id number] 09:48:21 Test Item Value Reference Range Interpretation Comments LACTATE DEHYDROGENASE FLUID (BEAKER) 141 U/L (test code = 634) Absence of reference range indicates that normals have not been defined.Assay performance has not been validated for this type of specimen.Transit Mix Operator ID - DSENSONPROTEIN, BODY [id number] 09:44:56 Test Item Value Reference Range Interpretation Comments PROTEIN FLUID (BEAKER) (test code = 3.9 g/dL 579) Absence of reference range indicates that normals have not been defined.Assay performance has not been validated for this type of specimen.Transit Mix Operator ID - DSENSONBASIC METABOLIC [id number] 06:39:38 Test Item Value Reference Range Interpretation [...] S NOT APPLICABLE FOR DIALYSIS PATIEN TS. Transit Mix Operator ID - JORDAN [id number] 06:39:14 Test Item Value Reference Range Interpretation Comments MAGNESIUM (BEAKER) (test code = 2.0 mg/dL 1.6-2.6 627) Transit Mix Operator ID - JORDAN MCBC W/PLT COUNT & AUTO [id number] 06:11:35 Test Item Value Reference Range Interpretation [...] PERCENT (BEAKER) (test code = 2801) POCT-GLUCOSE [id number] 22:05:32 Test Item Value Reference Range Interpretation Comments POC-GLUCOSE METER 137 mg/dL 70-110 H : TESTED A T [facility] 6720 (BEAKER) (test code = CIER[facility] Sewell [facility], 1538) 49367: Transit Mix Operator/Techni elsie ID = [id number] for GINA SALAZAR HEPATITIS B SURFACE [id number] 21:43:34 Test Item Value Reference Range Interpretation Comments HEPATITIS B SURFACE ANTIGEN (2) Nonreactive Nonreactive (BEAKER) (test code = 2585) Specimen is considered negative for HBsAg.BODY FLUID CELL COUNT WITH [id number] 18:09:33 Test Item Value Reference Range Interpretation [...] FLUID (BEAKER) (test code = 2873) POCT-GLUCOSE [id number] 17:22:05 Test Item Value Reference Range Interpretation Comments POC-GLUCOSE METER 117 mg/dL 70-110 H : TESTED A T [facility] 6720 (BEAKER) (test code = [facility] Sewell [facility], 1538) 55411: Transit Mix Operator/Techni elsie ID = [id number] for Erma Kingston U/S, [id number] 17:04:00DR STRIBLINGLabs to be ordered:->Body Fluid Culture (w/Gram Stain, C\T\S)Labs to be ordered:->CytologyLabs to be ordered:->Glucose+LDH+ProteinLabs to be ordered:->Cell CountReason for exam:->CHEST PAINReason for exam:->EDEMA [facility] : 1955 Sex: MFINAL REPORT Ultrasound guided paracentesis Clinical History: Ascites. Sedation: None. Pouch Maker: Klaudia Garcia PA-C Supervising Physician: Brady Self MD Pear Picker: None. Estimated Blood Loss: < 1 mL. [...] anesthesia was achieved with lidocaine, a 5 Djiboutian one-step catheter was advanced intothe peritoneal cavity under ultrasound guidance. After completion of drainage, the catheter was removed. There was no evidence of complication. Impression:Successful ultrasound guided paracentesis. Signed: Brady Self MDReport Verified Date/Time: 08/03/2021 17:04:47 Reading Location: [address] Ultrasound Reading Room SARS-COV2/RT-PCR ([facility])2021-08-03 14:42:37 Test Item Value Reference Range Interpretation Comments SARS-COV2/RT-PCR Negative Negative The SARS-Co V-2 target (test code = nucleic acids a re not 1414723) detected in thi s specimen. Negative result [...] revoked sooner. Fact Sheet for Healthcare Providers: https://www.Flythegap/Documents/Xpert%20Xpress%20SARS%20CoV-2/Fact%20Sheets/3023802%20SARS-COV -2%20HEALTHCARE%20PROVIDERS%20FACT%20SHEET.pdf Fact Sheet for Healthcare Patients: https://www.Vivid Games/Documents/Xpert %20Xpress%20SARS%20CoV-2/Fact%20Sheets/3023801%96XGRZ-VCL-1%20PATIENT%20FACT%20 SHEET.pdfB-TYPE NATRIURETIC FACTOR (BNP)2021-08-03 12:54:07 Test Item Value Reference Range Interpretation Comments B-TYPE NATRIURETIC PEPTIDE 82159 pg/mL 0-100 H (Topic) (test code = 700) Transit Mix Operator ID - JOHAN FOperator ID Disha PRADO FHIGH SENSITIVITY TROPONIN I 2021-08-03 12:37:33 Test Item Value Reference Range Interpretation Comments HIGH SENSITIVITY 43 pg/ml See_Comment H [Automated message] TROPONIN I (test code = The system which [id number]) generated this result transmitted ref erence range: <=35. Th e reference range was not used to int erpret this result as normal/abnormal . Transit Mix Operator ID - JOHAN FThe HR INTERNSHIP STAT High Sensitivity Troponin-I results should be used in conjunction with other diagnostic information such as ECG, clinical observations and information, and patient symptoms to aid in the diagnosis of ND.COMPREHENSIVE METABOLIC [id number] 12:32:18 Test Item Value Reference Range Interpretation [...] S NOT APPLICABLE FOR DIALYSIS PATIEN TS. Transit Mix Operator ID Disha PRADO [id number] 12:30:52 Test Item Value Reference Range Interpretation Comments PHOSPHORUS (BEAKER) (test code = 2.6 mg/dL 2.3-4.7 604) Transit Mix Operator ID Disha PRADO [id number] 12:30:51 Test Item Value Reference Range Interpretation Comments MAGNESIUM (BEAKER) (test code = 2.1 mg/dL 1.6-2.6 627) Transit Mix Operator ID Disha PRADO FPROTHROMBIN TIME/[id number] 12:14:02 Test Item Value Reference Range Interpretation Comments PROTIME (BEAKER) 14.5 seconds 11.9-14.2 H (test code = 759) INR (BEAKER) (test 1.15 See_Comment [Automat ed message] code = 370) The system [employer] generated this result transmitted ref erence range: [...] = 2801) RAD, CHEST, 1 VIEW, NON [id number] 11:47:00DR STRIBLINGReason for exam:- >CHEST PAINReason for exam:->EDEMAShould this be performed at the bedside?->YesCH[facility] : 1955 Sex: MFINAL REPORT RAD, CHEST, 1 VIEW, NON DEPT INDICATION: CHEST PAINEDEMA COMPARISON: Prior day's exam FINDINGS: Portable frontal view of the chest. IMPRESSION: Support Lines: Pacer device and sternotomy wires. Lungs and pleura: Bilateral effusions and adjacent atelectasis Nosignificant pneumothorax. Heart and mediastinum: Stable contours. Additional findings: None. Signed: Arlet Sr Verified Date/Time: 08/03/2021 11:47:09 Reading Location: [facility] Radiology Reading Room ALPHA FETOPROTEIN (AFP), TUMOR [id number] 13:27:00 Test Item Value Reference Range Interpretation Comments ALPHA-FETOPROTEIN (BEAKER) (test code < ng/mL <10.0 = 1094) Transit Mix Operator ID - PATRICIA CBASIC METABOLIC [id number] 13:06:00 Test Item Value Reference Range Interpretation [...] S NOT APPLICABLE FOR DIALYSIS PATIEN TS. Transit Mix Operator ID - PATRICIA CHEPATIC FUNCTION [id number] 13:05:00 Test Item Value Reference Range Interpretation [...] (test code = 9 U/L 6-55 347) Transit Mix Operator ID - PATRICIA CPROTHROMBIN TIME/[id number] 12:40:00 Test Item Value Reference Range Interpretation Comments PROTIME (BEAKER) 13.9 seconds 11.9-14.2 (test code = 759) INR (BEAKER) (test 1.09 See_Comment [Automat ed message] code = 370) The system [employer] generated this result transmitted ref erence range: [...] = 2801) BODY FLUID CULTURE + GRAM [id number] 13:49:00 Test Item Value Reference Range Interpretation Comments CULTURE (BEAKER) (test No growth code = 1095) GRAM STAIN RESULT <1+ White blood cells (BEAKER) (test code = seen 1123) GRAM STAIN RESULT No organisms seen (BEAKER) (test code = 537992) [id number] 18:55:00Medical Cytology Report Case: [id number] Authorizing Provider: Wicho Garcia MD Collected: 06/03/2021 05:57 PM Ordering Location: [place] [address] Dialysis Received: 06/04/2021 10:06 AM Nephrology Service Pathologist: Silvestre Le MD Specimen: Pleural, Right PLEURAL, RIGHT, FLUID (CYTOSPINS): - NEGATIVE FOR MALIGNANCY Signing Pathologist Direct Phone Line: [phone] signed by Silvestre Le MD on 06/05/2021 at 6:55 [id number] pleural effusion; PMH of HTN, HLD, CAD s/p ACB at [facility] on 05/18/2019, HFrEF 2/2 ICM with EF 25% s/p ICD, ESRD on iHD, cirrhosis, who presents with dyspnea, worsening BLE edema and genital painPLEURAL, RIGHT, FLUIDReceived 1000 ml bloody fluid; prepared [address] [facility],Department of Pathology, [address] [place] [address], [facility]zMer[facility], Department of Pathology, [address] [place] [address], QkszbrMercy General Hospital, Department of Pathology, [address] [place] [address], VGSR-GLUCOSE [id number] 13:22:00 Test Item Value Reference Range Interpretation Comments POC-GLUCOSE METER 138 mg/dL 70-110 H : TESTED A T [facility] 6720 (BEDIPIKA) (test code = [facility] Sewell [facility], 1538) [address]: Transit Mix Operator/Techni elsei ID = [id number] for EDE GASPAR U/S, [id number] 13:01:00DR STRIBLINGLaterality?->RightReason for exam:->moderate to large pleural effusionLabs to be Ordered:->Body Fluid Culture (w/Gram Stain, C\T\S)Labs to be Ordered:->CytologyLabs to be Ordered :->Cell CountLabs to be Ordered:->Glucose+LDH+Protein [facility] : 1955 Sex: MFINAL REPORT Exam: Ultrasound guided thoracentesis Clinical History: Right-sided Pleural Effusion Pouch Maker: Michelle Wilson PA-C Supervising Physician: Jose Guadalupe [...] MDReport Verified Date/Time: 06/05/2021 13:01:06 Reading Location: [address] Ultrasound Reading Room POCT-GLUCOSE [id number] 08:36:00 Test Item Value Reference Range Interpretation Comments POC-GLUCOSE METER 219 mg/dL 70-110 H : TESTED A T [facility] 67[address] (BEAKER) (test code = [facility], 1538) [address]: Transit Mix Operator/Techni elsie ID = [id number] for EDE GASPAR BASIC METABOLIC [id number] 04:46:00 Test Item Value Reference Range Interpretation [...] S NOT APPLICABLE FOR DIALYSIS PATIEN TS. Transit Mix Operator ID - JEVON [id number] 04:45:00 Test Item Value Reference Range Interpretation Comments MAGNESIUM (BEAKER) (test code = 2.1 mg/dL 1.6-2.6 627) Transit Mix Operator ID - JEVON [id number] 04:45:00 Test Item Value Reference Range Interpretation Comments PHOSPHORUS (BEAKER) (test code = 2.9 mg/dL 2.3-4.7 604) Transit Mix Operator ID - JEVON LCBC W/PLT COUNT & AUTO [id number] 04:21:00 Test Item Value Reference Range Interpretation [...] PERCENT (BEAKER) (test code = 2801) POCT-GLUCOSE [id number] 22:21:00 Test Item Value Reference Range Interpretation Comments POC-GLUCOSE METER 242 mg/dL 70-110 H : TESTED A T [facility] 6720 (BEAKER) (test code = [facility], 1538) [address]: Transit Mix Operator/Techni elsie ID = [id number] for Pee Solorio POCT-GLUCOSE [id number] 12:26:00 Test Item Value Reference Range Interpretation Comments POC-GLUCOSE METER 181 mg/dL 70-110 H : TESTED A T [facility] 6720 (BEAKER) (test code = [facility] Tixie ([employer] [facility], 1538) [address]: Transit Mix Operator/Techni elsie ID = [id number] for ABDIAS TREADWELLM SERYANELISLEM LACTATE DEHYDROGENASE (LDH), BODY [id number] 10:04:00 Test Item Value Reference Range Interpretation Comments LACTATE DEHYDROGENASE FLUID (BEAKER) 117 U/L (test code = 634) Absence of reference range indicates that normals have not been defined.Assay performance has not been validated for this type of specimen.Transit Mix Operator ID - [id number], BODY [id number] 10:01:00 Test Item Value Reference Range Interpretation Comments PROTEIN FLUID (BEAKER) (test code = 3.2 g/dL 579) Absence of reference range indicates that normals have not been defined.Assay performance has not been validated for this type of specimen.Transit Mix Operator ID - [id number] 08:30:00 Test Item Value Reference Range Interpretation Comments POC-GLUCOSE METER 144 mg/dL 70-110 H : TESTED A T [facility] 6720 (BEAKER) (test code = [facility] [place], 1538) [address]: Transit Mix Operator/Techni elsie ID = [id number] for FAHAD CASTAÑEDA BASIC METABOLIC [id number] 05:13:00 Test Item Value Reference Range Interpretation [...] S NOT APPLICABLE FOR DIALYSIS PATIEN TS. Transit Mix Operator ID - [id number] 05:10:00 Test Item Value Reference Range Interpretation Comments MAGNESIUM (BEAKER) (test code = 2.1 mg/dL 1.6-2.6 627) Transit Mix Operator ID - [id number] 05:10:00 Test Item Value Reference Range Interpretation Comments PHOSPHORUS (BEAKER) (test code = 5.3 mg/dL 2.3-4.7 H 604) Transit Mix Operator ID - BSCBC W/PLT COUNT & AUTO [id number] 04:43:00 Test Item Value Reference Range Interpretation [...] = 2801) BODY FLUID CELL COUNT WITH [id number] 21:44:00 Test Item Value Reference Range Interpretation Comments APPEARANCE FLUID Slightly Bloody Clear A (BEAKER) (test code = 510) COLOR FLUID Early Colorless, Straw A (BEAKER) (test code = 511) RBC FLUID (BEAKER) 30998 /cu mm See_Comment H [Automat ed (test [...] FLUID (BEAKER) (test code = 2873) POCT-GLUCOSE [id number] 21:31:00 Test Item Value Reference Range Interpretation Comments POC-GLUCOSE METER 181 mg/dL 70-110 H : TESTED A T [facility] 6720 (BEAKER) (test code = [facility], 153) 396[address]: Transit Mix Operator/Techni elsie ID = [id number] for Gi sset (pca2), Conn POCT-GLUCOSE [id number] 18:30:00 Test Item Value Reference Range Interpretation Comments POC-GLUCOSE METER 167 mg/dL 70-110 H : TESTED A T [facility] 6720 (BEAKER) (test code = [facility], 153) 23518: Transit Mix Operator/Techni elsie ID = [id number] for CA STRO, LUCY RAD, CHEST, 1 VIEW, NON [id number] 18:20:00DR STRIBLINGReason for exam:- >post right sided thoracentesisShould this be performed at the [facility] e?->YesCH[facility] : 1955 Sex: MFINAL REPORT [...] Russo Verified Date/Time: 06/03/2021 18:20:00 Reading Location: [address] Consult Reading Room POCT-GLUCOSE METER 2021-06-03 11:45:00 Test Item Value Reference Range Interpretation Comments POC-GLUCOSE METER 159 mg/dL 70-110 H : TESTED A T [facility] 6720 (Topic) (test code = [facility] Sewell [facility], 1538) [address]: Transit Mix Operator/Techni elsie ID = [id number] for Junie Gutiérrez POCT-GLUCOSE [id number] 09:28:00 Test Item Value Reference Range Interpretation Comments POC-GLUCOSE METER 163 mg/dL 70-110 H : TESTED A T [facility] 6720 (Topic) (test code = [facility]ell [facility], 1538) 634[address]: Transit Mix Operator/Techni elsie ID = [id number] for Junie Gutiérrez CBC W/PLT COUNT & AUTO [id number] 05:53:00 Test Item Value Reference Range Interpretation [...] (BEAKER) (test code = 2801) BASIC METABOLIC [id number] 05:41:00 Test Item Value Reference Range Interpretation [...] S NOT APPLICABLE FOR DIALYSIS PATIEN TS. Transit Mix Operator ID - JORDAN [id number] 05:22:00 Test Item Value Reference Range Interpretation Comments MAGNESIUM (BEAKER) (test code = 2.0 mg/dL 1.6-2.6 627) Transit Mix Operator ID - JORDAN [id number] 05:22:00 Test Item Value Reference Range Interpretation Comments PHOSPHORUS (BEAKER) (test code = 4.8 mg/dL 2.3-4.7 H 604) Transit Mix Operator ID - JORDAN MSARS-COV2/RT-PCR ([facility])2021-06-03 03:56:00 Test Item Value Reference Range Interpretation Comments SARS-COV2/RT-PCR (test code = Negative Negative 3725114) Negative result for this test determines that [...] the Zapata SARS-CoV-2 assay.Fact Sheet for Healthcare Providers:https://www.[employer].zapata/tracy/RT SARS-CoV-2 HCP Fact Sheet 51- 967525.pdfFact Sheet for Healthcare Patients:https://www.molecular.zapata/tracy/RT SARS-CoV-2 Patient Fact Sheet EN 51-396791W0.pdfPROTHROMBIN TIME/[id number] 01:17:00 Test Item Value Reference Range Interpretation Comments PROTIME (BEAKER) 14.3 seconds 11.9-14.2 H (test code = 759) INR (BEAKER) (test 1.13 See_Comment [Automat ed message] code = 370) The system [employer] generated this result transmitted ref erence range: <=5.90. The reference range was not used to int erpret this result as normal/abnormal . RECOMMENDED COUMADIN/WARFARIN INR THERAPY RANGESSTANDARD DOSE: 2.0 - 3.0 Includes: PROPHYLAXIS forvenous thrombosis, systemic embolization; TREATMENT for venous thrombosis and/or pulmonary embolus.HIGH RISK: Target INR is 2.5-3.5 for patients with mechanical heart valves.POCT-GLUCOSE [id number] 21:22:00 Test Item Value Reference Range Interpretation Comments POC-GLUCOSE METER 150 mg/dL 70-110 H : TESTED A T [facility] ([facility]) (test code = [facility] Melodie [facility], 1538) [address]: Transit Mix Operator/Techni elsie ID = [id number] for Hodan Mayo POCT-GLUCOSE [id number] 17:33:00 Test Item Value Reference Range Interpretation Comments POC-GLUCOSE METER 183 mg/dL 70-110 H : Notified RN/MD: (CONRAD) (test code = TESTED AT [facility] 67 1538) [facility], [address]: Transit Mix Operator/Techni elsie ID = [id number] for Alexandrea Hernandez POCT-GLUCOSE [id number] 08:46:00 Test Item Value Reference Range Interpretation Comments POC-GLUCOSE METER 143 mg/dL 70-110 H : Notified RN/MD: (CONRAD) (test code = TESTED AT [place] [address] 1538) [facility], [address]: Transit Mix Operator/Techni elsie ID = [id number] for Ender gonzaels, Alexandrea BASIC METABOLIC [id number] 07:12:00 Test Item Value Reference Range Interpretation [...] S NOT APPLICABLE FOR DIALYSIS PATIEN TS. Transit Mix Operator ID - JORDAN [id number] 07:04:00 Test Item Value Reference Range Interpretation Comments MAGNESIUM (BEAKER) (test code = 2.1 mg/dL 1.6-2.6 627) Transit Mix Operator ID - JORDAN [id number] 07:04:00 Test Item Value Reference Range Interpretation Comments PHOSPHORUS (BEAKER) (test code = 5.7 mg/dL 2.3-4.7 H 604) Transit Mix Operator ID - JORDAN MCBC W/PLT COUNT & AUTO [id number] 06:25:00 Test Item Value Reference Range Interpretation [...] PERCENT (BEAKER) (test code = 2801) POCT-GLUCOSE [id number] 21:18:00 Test Item Value Reference Range Interpretation Comments POC-GLUCOSE METER 117 mg/dL 70-110 H : TESTED A T [place] [address] ([facility]) (test code = [facility], 1537) [address]: Transit Mix Operator/Techni elsie ID = [id number] for Hodan Mayo POCT-GLUCOSE [id number] 18:18:00 Test Item Value Reference Range Interpretation Comments POC-GLUCOSE METER 123 mg/dL 70-110 H : Notified RN/MD: (CONRAD) (test code = TESTED AT [place] [address] ) [facility], [address]: Transit Mix Operator/Techni elsie ID = [id number] for Co christian, Alexandrea POCT-GLUCOSE [id number] 12:40:00 Test Item Value Reference Range Interpretation Comments POC-GLUCOSE METER 169 mg/dL 70-110 H : Notified RN/MD: ([facility]) (test code = TESTED AT [place] [address] 1537) [facility], [address]: Transit Mix Operator/Techni elsie ID = [id number] for Co christian, Alexandrea POCT-GLUCOSE [id number] 08:51:00 Test Item Value Reference Range Interpretation Comments POC-GLUCOSE METER 119 mg/dL 70-110 H : Notified RN/MD: (CONRAD) (test code = TESTED AT [place] [address] ) [facility], [address]: Transit Mix Operator/Techni elsie ID = [id number] for Alexandrea Hernandez BASIC METABOLIC [id number] 06:37:00 Test Item Value Reference Range Interpretation [...] S NOT APPLICABLE FOR DIALYSIS PATIEN TS. Transit Mix Operator ID - MAGEN [id number] 06:34:00 Test Item Value Reference Range Interpretation Comments MAGNESIUM (BEAKER) (test code = 2.1 mg/dL 1.6-2.6 627) Transit Mix Operator ID - MAGEN [id number] 06:34:00 Test Item Value Reference Range Interpretation Comments PHOSPHORUS (BEAKER) (test code = 5.1 mg/dL 2.3-4.7 H 604) Transit Mix Operator ID - MAGEN WCBC W/PLT COUNT & AUTO [id number] 05:46:00 Test Item Value Reference Range Interpretation [...] PERCENT (BEAKER) (test code = 2801) POCT-GLUCOSE [id number] 21:36:00 Test Item Value Reference Range Interpretation Comments POC-GLUCOSE METER 160 mg/dL 70-110 H : TESTED A T [facility] 67[address] (BEAKER) (test code = [facility] [place], 1538) [address]: Transit Mix Operator/Techni elsie ID = [id number] for LI WILMAN RAMIREZ POCT-GLUCOSE [id number] 17:16:00 Test Item Value Reference Range Interpretation Comments POC-GLUCOSE METER 151 mg/dL 70-110 H : TESTED A T [facility] 6720 (BEAKER) (test code = [facility], 1538) [address]: Transit Mix Operator/Techni elsie ID = [id number] for CA LUCY BENSON POCT-GLUCOSE [id number] 12:22:00 Test Item Value Reference Range Interpretation Comments POC-GLUCOSE METER 153 mg/dL 70-110 H : TESTED A T [facility] 6720 (BEAKER) (test code = [facility], 1538) [address]: Transit Mix Operator/Techni elsie ID = [id number] for CA STROLUCY BASIC METABOLIC [id number] 04:46:00 Test Item Value Reference Range Interpretation [...] S NOT APPLICABLE FOR DIALYSIS PATIEN TS. Transit Mix Operator ID - MAGEN [id number] 04:25:00 Test Item Value Reference Range Interpretation Comments MAGNESIUM (BEAKER) (test code = 2.0 mg/dL 1.6-2.6 627) Transit Mix Operator ID - MAGEN [id number] 04:25:00 Test Item Value Reference Range Interpretation Comments PHOSPHORUS (BEAKER) (test code = 4.3 mg/dL 2.3-4.7 604) Transit Mix Operator ID - MAGEN WCBC W/PLT COUNT & AUTO [id number] 03:56:00 Test Item Value Reference Range Interpretation [...] PERCENT (BEAKER) (test code = 2801) POCT-GLUCOSE [id number] 21:39:00 Test Item Value Reference Range Interpretation Comments POC-GLUCOSE METER 183 mg/dL 70-110 H : TESTED A T [facility] 6720 (BEAKER) (test code = [facility], 1538) [address]: Transit Mix Operator/Techni elsie ID = [id number] for WILMAN BIRD RA POCT-GLUCOSE [id number] 17:38:00 Test Item Value Reference Range Interpretation Comments POC-GLUCOSE METER 145 mg/dL 70-110 H : TESTED A T [facility] 6720 (BEAKER) (test code = [facility], 1538) [address]: Transit Mix Operator/Techni elsie ID = [id number] for IB RAHIM, [place] POCT-GLUCOSE [id number] 12:58:00 Test Item Value Reference Range Interpretation Comments POC-GLUCOSE METER 122 mg/dL 70-110 H : TESTED A T [facility] 6720 (BEAKER) (test code = [facility], 1538) [address]: Transit Mix Operator/Techni elsie ID = [id number] for IB RAHIM, [place] BASIC METABOLIC [id number] 06:52:00 Test Item Value Reference Range Interpretation [...] S NOT APPLICABLE FOR DIALYSIS PATIEN TS. Transit Mix Operator ID - JORDAN [id number] 06:36:00 Test Item Value Reference Range Interpretation Comments MAGNESIUM (BEAKER) (test code = 2.1 mg/dL 1.6-2.6 627) Transit Mix Operator ID - JORDAN [id number] 06:36:00 Test Item Value Reference Range Interpretation Comments PHOSPHORUS (BEAKER) (test code = 5.0 mg/dL 2.3-4.7 H 604) Transit Mix Operator ID - JORDAN MCBC W/PLT COUNT & AUTO [id number] 06:13:00 Test Item Value Reference Range Interpretation [...] PERCENT (BEAKER) (test code = 2801) POCT-GLUCOSE [id number] 21:35:00 Test Item Value Reference Range Interpretation Comments POC-GLUCOSE METER 132 mg/dL 70-110 H : TESTED A T [facility] 6720 (BEAKER) (test code = [facility], 1538) [address]: Transit Mix Operator/Techni elsie ID = [id number] for WILMAN BIRD RA POCT-GLUCOSE [id number] 17:32:00 Test Item Value Reference Range Interpretation Comments POC-GLUCOSE METER 140 mg/dL 70-110 H : TESTED A T [facility] 6720 (BEAKER) (test code = [facility], 1538) [address]: Transit Mix Operator/Techni elsie ID = [id number] for IB RAHIM, [place] POCT-GLUCOSE [id number] 11:19:00 Test Item Value Reference Range Interpretation Comments POC-GLUCOSE METER 159 mg/dL 70-110 H : TESTED A T [facility] 6720 (BEAKER) (test code = [facility], 1538) [address]: Transit Mix Operator/Techni elsie ID = [id number] for IB RAHIM, [place] BASIC METABOLIC [id number] 08:10:00 Test Item Value Reference Range Interpretation [...] S NOT APPLICABLE FOR DIALYSIS PATIEN TS. Transit Mix Operator ID - DAREK [id number] 08:05:00 Test Item Value Reference Range Interpretation Comments MAGNESIUM (BEAKER) (test code = 1.9 mg/dL 1.6-2.6 627) Transit Mix Operator ID - DAREK [id number] 08:05:00 Test Item Value Reference Range Interpretation Comments PHOSPHORUS (BEAKER) (test code = 4.3 mg/dL 2.3-4.7 604) Transit Mix Operator ID - DAREK MPOCT-GLUCOSE [id number] 07:57:00 Test Item Value Reference Range Interpretation Comments POC-GLUCOSE METER 144 mg/dL 70-110 H : TESTED A T [facility] 6720 (BEAKER) (test code = [facility] [place], 1538) [address]: Transit Mix Operator/Techni elsie ID = [id number] for IB RAHIM, [place] CBC W/PLT COUNT & AUTO [id number] 07:45:00 Test Item Value Reference Range Interpretation [...] PERCENT (BEAKER) (test code = 2801) POCT-GLUCOSE [id number] 21:17:00 Test Item Value Reference Range Interpretation Comments POC-GLUCOSE METER 162 mg/dL 70-110 H : TESTED A T [facility] 6720 (BEAKER) (test code = [facility], 1538) [address]: Transit Mix Operator/Techni elsie ID = [id number] for Hodan Mayo POCT-GLUCOSE [id number] 17:43:00 Test Item Value Reference Range Interpretation Comments POC-GLUCOSE METER 129 mg/dL 70-110 H : TESTED Lashell Ureña [facility] 6720 (BEAKER) (test code = [facility] [place], 1538) [address]: Transit Mix Operator/Techni elsie ID = [id number] for Edwin Gonsalez U/S, [id number] 15:28:00DR STRIBLINGLabs to be ordered:->Body Fluid Culture (w/Gram Stain, C\T\S)Labs to be ordered:->G lucose+LDH+ProteinLabs to be ordered:->Cell CountLabs to be ordered:- >CytologyReason for exam:->ascites [facility] : 1955 Sex: MFINAL REPORT Ultrasound guided paracentesis Clinical History: Ascites. Sedation: None. Pouch Maker: Michelle Wilson PA-C Supervising Physician: Scott Alcazar MD Pear Picker: None. Estimated Blood Loss: < 1 mL. [...] anesthesia was achieved with lidocaine, a 5 [place]ib[place]ian one-step catheter was advanced into the peritoneal cavity under ultrasound guidance. After completion of drainage, the catheter was removed. There was no evidence of complication. Impression:Successful ultrasound guided paracentesis. Signed: Scott Alcazar Verified Date/Time: 05/28/2021 15:28:45 Reading Location: [address] Ultrasound Reading Room RAD, CHEST, 1 VIEW, NON [id number] 12:52:00DR STRIBLINGReason for exam:->interval change, pleural effusionShould this be performed at the bedside?->Yes [facility] : 1955 Sex: [...] Small Left-sided pleural effusions unchanged.. Signed: Rober Beardort Verified Date/Time: 05/28/2021 12:52:22 Reading Location: [facility] Diagnostic Imaging Reading Room - [place] [address] POCT-GLUCOSE [id number] 12:06:00 Test Item Value Reference Range Interpretation Comments POC-GLUCOSE METER 157 mg/dL 70-110 H : TESTED A T [facility] 6720 (BEAKER) (test code = [facility] Melodie [facility], 1538) [address]: Transit Mix Operator/Techni elsie ID = [id number] for Yuki cai (pca2), Shayna BODY FLUID CULTURE + GRAM [id number] 09:41:00 Test Item Value Reference Range Interpretation Comments CULTURE (BEAKER) (test code No growth = 1095) GRAM STAIN RESULT (BEAKER) 1+ WBCs (test code = 1123) GRAM STAIN RESULT (BEAKER) No organisms seen (test code = 20726) POCT-GLUCOSE [id number] 08:28:00 Test Item Value Reference Range Interpretation Comments POC-GLUCOSE METER 123 mg/dL 70-110 H : Notified RN/MD: (BEAKER) (test code = TESTED AT [facility] 6720 1538) RUDDYAIMEE [facility], [address]: Transit Mix Operator/Techni elsie ID = [id number] for Yuki caballero (pca2), [place] [id number] 08:10:00 Test Item Value Reference Range Interpretation Comments MAGNESIUM (BEAKER) (test code = 1.8 mg/dL 1.6-2.6 627) Transit Mix Operator ID - [facility] METABOLIC [id number] 07:50:00 Test Item Value Reference Range Interpretation [...] S NOT APPLICABLE FOR DIALYSIS PATIEN TS. Transit Mix Operator ID - PIAYA [id number] 07:35:00 Test Item Value Reference Range Interpretation Comments PHOSPHORUS (BEAKER) (test code = 5.7 mg/dL 2.3-4.7 H 604) Transit Mix Operator ID - PIAYA LCBC W/PLT COUNT & AUTO [id number] 07:06:00 Test Item Value Reference Range Interpretation [...] PERCENT (BEAKER) (test code = 2801) POCT-GLUCOSE [id number] 21:19:00 Test Item Value Reference Range Interpretation Comments POC-GLUCOSE METER 126 mg/dL 70-110 H : TESTED A T [place] [address] (ISAACDIPIKA) (test code = [facility], 1538) [address]: Transit Mix Operator/Techni elsie ID = [id number] for Arlet Yanes POCT-GLUCOSE [id number] 18:22:00 Test Item Value Reference Range Interpretation Comments POC-GLUCOSE METER 164 mg/dL 70-110 H : Notified RN/MD: (CONRAD) (test code = TESTED AT [place] [address] 1538) [facility], [address]: Transit Mix Operator/Techni elsie ID = [id number] for Yuki caballero (pca2), [place] POCT-GLUCOSE [id number] 13:51:00 Test Item Value Reference Range Interpretation Comments POC-GLUCOSE METER 114 mg/dL 70-110 H : Notified RN/MD: (CONRAD) (test code = TESTED AT [place] [address] 1538) [facility], [address]: Transit Mix Operator/Techni elsie ID = [id number] for Yuki caballero (pca2), [place] [id number] 11:15:00Medical Cytology Report Case: [id number] Authorizing Provider: Rome Bhatti MD Collected: 05/26/2021 10:25 AM Ordering Location: [facility] Emergency Department Received: 05/26/2021 01:28 PM Pathologist: Silvestre Le MD Specimen: Peritoneal Fluid PERITONEAL FLUID (CYTOSPINS AND CELL BLOCK): -NEGATIVE FOR MALIGNANCY Signing Pathologist Direct Phone Line: [phone] Reactive mesothelial cells are present.86899, 23252Cklfvrc; history of chronic systolic/diastolic heart failure, cirrhosis, DM, hypothyroidism, HLD, chronic hypotension, CAD, chronic anemia, ESRD presented with abdominal distension, decreased uop, burning of foreskin and penisPERITONEAL FLUIDReceived 1500 ml clear, yellow fluid; prepared 4 cytospins and cell block(A2) - cell block prepared using a collodion bag andfixed in formalin at 5:02 pm on 05/26/21Performed. [facility], Department of Pathology, [address] [place] [address], [facility], [address] [place] [address], [facility], Department of Pathology, [address] [place] [address], GPKEDIF DEHYDROGENASE (LDH), BODY [id number] 10:45:00 Test Item Value Reference Range Interpretation Comments LACTATE DEHYDROGENASE FLUID (BEAKER) 123 U/L (test code = 634) Absence of reference range indicates that normals have not been defined.Assay performance has not been validated for this type of specimen.Transit Mix Operator ID - [id number], BODY [id number] 10:41:00 Test Item Value Reference Range Interpretation Comments PROTEIN FLUID (BEAKER) (test code = 5.4 g/dL 579) Absence of reference range indicates that normals have not been defined.Assay performance has not been validated for this type of specimen.Transit Mix Operator ID - gvka85OTSU-BKZNFUZ [id number] 09:21:00 Test Item Value Reference Range Interpretation Comments POC-GLUCOSE METER 134 mg/dL 70-110 H : TESTED A T [facility] 6720 (BEAKER) (test code = [place], 1538) [address]: Transit Mix Operator/Techni elsie ID = [id number] for LUCY GIRON BASIC METABOLIC [id number] 07:43:00 Test Item Value Reference Range Interpretation [...] S NOT APPLICABLE FOR DIALYSIS PATIEN TS. Transit Mix Operator ID - MAGEN [id number] 07:42:00 Test Item Value Reference Range Interpretation Comments MAGNESIUM (BEAKER) (test code = 2.0 mg/dL 1.6-2.6 627) Transit Mix Operator ID - MAGEN [id number] 07:42:00 Test Item Value Reference Range Interpretation Comments PHOSPHORUS (BEAKER) (test code = 4.4 mg/dL 2.3-4.7 604) Transit Mix Operator ID - MAGEN WCBC W/PLT COUNT & AUTO [id number] 06:55:00 Test Item Value Reference Range Interpretation [...] PERCENT (BEAKER) (test code = 2801) POCT-GLUCOSE [id number] 21:47:00 Test Item Value Reference Range Interpretation Comments POC-GLUCOSE METER 138 mg/dL 70-110 H : TESTED A T [facility] 6720 (BEAKER) (test code = [place], 1538) [address]: Transit Mix Operator/Techni elsie ID = [id number] for La cy (pca2), Victori a PTH, [id number] 19:07:00 Test Item Value Reference Range Interpretation Comments PARATHYROID HORMONE INTACT 396.3 pg/mL 8.5-72.5 H (BEAKER) (test code = 577) Transit Mix Operator ID - BSPOCT-GLUCOSE [id number] 17:30:00 Test Item Value Reference Range Interpretation Comments POC-GLUCOSE METER 71 mg/dL 70-110 : TESTED A T [facility] 6720 (BEAKER) (test code = [facility], 1538) [address]: Transit Mix Operator/Techni elsie ID = [id number] for Rosario ano, Edwin [id number] 17:28:00 Test Item Value Reference Range Interpretation Comments FERRITIN (BEAKER) (test code = 1901.90 ng/mL 5.00-275.00 H 361) Transit Mix Operator ID - BSPOCT-GLUCOSE [id number] 17:18:00 Test Item Value Reference Range Interpretation Comments POC-GLUCOSE METER 63 mg/dL 70-110 L : TESTED A T [facility] 6720 (BEAKER) (test code = [facility], 1538) [address]: Transit Mix Operator/Techni elsie ID = [id number] for Rosario ano, Edwin IRON, TIBC, % SAT. (WITHOUT FERRITIN)2021-05-26 17:00:00 Test Item Value Reference Range Interpretation Comments IRON (BEAKER) (test code = 547) 44.0 ug/dL 40.0-160.0 TOTAL IRON BINDING CAPACITY 136 ug/dL 250-450 L (BEAKER) (test code = 769) IRON % SATURATION (2) (BEAKER) 32 % 20-55 (test code = 2590) Transit Mix Operator ID - BSHEPATITIS B SURFACE [id number] 14:17:00 Test Item Value Reference Range Interpretation Comments HEPATITIS B SURFACE ANTIGEN (2) Nonreactive Nonreactive (BEAKER) (test code = 2585) Specimen is considered negative for HBsAg.BODY FLUID CELL COUNT WITH [id number] 13:17:00 Test Item Value Reference Range Interpretation [...] Cup (BEAKER) (test code = 2873) POCT-GLUCOSE [id number] 12:41:00 Test Item Value Reference Range Interpretation Comments POC-GLUCOSE METER 76 mg/dL 70-110 : TESTED A T [facility] 6720 (BEAKER) (test code = [facility], 1538) [address]: Transit Mix Operator/Techni elsie ID = [id number] for Greg bateman (pca2) Aleksandra POCT-GLUCOSE [id number] 07:29:00 Test Item Value Reference Range Interpretation Comments POC-GLUCOSE METER 90 mg/dL 70-110 : TESTED A T [facility] 6720 (BEAKER) (test code = [facility], 1538) [address]: Transit Mix Operator/Techni elsie ID = [id number] for Marisela Ariel gibson [id number] 05:33:00 Test Item Value Reference Range Interpretation Comments MAGNESIUM (BEAKER) (test code = 2.2 mg/dL 1.6-2.6 627) Transit Mix Operator ID - JORDAN [id number] 05:33:00 Test Item Value Reference Range Interpretation Comments PHOSPHORUS (BEAKER) (test code = 6.0 mg/dL 2.3-4.7 H 604) Transit Mix Operator ID - JORDAN MBASIC METABOLIC [id number] 05:33:00 Test Item Value Reference Range Interpretation [...] S NOT APPLICABLE FOR DIALYSIS PATIEN TS. Transit Mix Operator ID - JORDAN MCBC W/PLT COUNT & AUTO [id number] 05:27:00 Test Item Value Reference Range Interpretation [...] PERCENT (BEAKER) (test code = 2801) SARS-COV2/RT-PCR ([facility])2021-05-26 03:02:00 Test Item Value Reference Range Interpretation Comments SARS-COV2/RT-PCR Negative Negative The SARS-Co V-2 target (test code = 9945228) nuclei c acids are not detected in [...] SARS-CoV-2/Flu/RSV by their healthcare provider. [facility] Xpert Xpress SARS-CoV-2/Flu/RSV test should be [...] of the Act.Fact Sheet for Healthcare Providers :https://www.[employer]/Documents/Xpert%20Xpress%20SARS%20CoV-2/Fact%20Sheets/3 023902%85CZOE-VMK-6%20HEALTHCARE%20PROVIDERS%20FACT%20SHEET.pdfFact Sheet for Healthcare Patients:https://www.[employer] /Documents/Xpert%20Xpress%20SARS%20Cov-2/Fact%20Sheets/302-3801%86YLBG-IHB-3%20P ATIENT%20FACT%20SHEET.pdfRAD, CHEST, 1 VIEW, NON [id number] 22:32:00DR STRIBLINGReason for exam:->shortness of breathShould this be performed at the bedside?->Yes[facility] : 1955 Sex: [...] Varner Verified Date/Time: 05/25/2021 22:32:46 Reading Location: [facility] C0W Consult Reading Room CT, [id number] 21:35:00DR STRIBLINGUnlisted Reason for Exam - Click Yes and Enter Reason Below->NoWill this procedure require oral contrast?->NoSON[facility]Name[facility] : 1955 Sex: [...] evaluation with HIDA scan. Signed: Marya Arredondo MDRy[facility] Verified Date/Time: 05/25/2021 21:35:09 [id number] 19:39:00 Test Item Value Reference Range Interpretation Comments LIPASE (BEAKER) (test code = 749) 19 U/L 8-78 Transit Mix Operator ID - DBCOMPREHENSIVE METABOLIC [id number] 19:39:00 Test Item Value Reference Range Interpretation [...] S NOT APPLICABLE FOR DIALYSIS PATIEN TS. Transit Mix Operator ID - DBOperator ID - DBB-TYPE NATRIURETIC FACTOR (BNP)2021-05-25 19:34:00 Test Item Value Reference Range Interpretation Comments B-TYPE NATRIURETIC PEPTIDE 06514 pg/mL 0-100 H (BEAKER) (test code = 700) Transit Mix Operator ID - dbOperator ID - dbHIGH SENSITIVITY TROPONIN [id number] 19:13:00 Test Item Value Reference Range Interpretation Comments HIGH SENSITIVITY 54 pg/ml See_Comment H [Automated message] TROPONIN I (test code = The system which 1236101) generated this result transmitted ref erence range: <=35. Th e reference range was not used to int erpret this result as normal/abnormal . Transit Mix Operator ID - dbThe HR INTERNSHIP STAT High Sensitivity Troponin-I results should be used in conjunctionwith other diagnostic information such as ECG, clinical observations and information, and patient symptoms to aid in the diagnosis of ND.PT/[id number] 19:08:00 Test Item Value Reference Range Interpretation [...] for patients with mechanical heart valves.HEPATIC FUNCTION [id number] 19:07:00 Test Item Value Reference Range Interpretation [...] (test code = 8 U/L 6-55 347) Transit Mix Operator ID - DBCBC W/PLT COUNT & AUTO [id number] 18:55:00 Test Item Value Reference Range Interpretation [...] 0-1 PERCENT (BEAKER) (test code = 2801) [id number] 16:39:00 Test Item Value Reference Range Interpretation Comments GLUBED (test code = 104 MG/DL 70-110 N 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 [place] : 1955 Sex: M FAX: Espinoza Santillan MD [phone] Center: St: REG Name: TROY FORTE [facility] : 1955 Age/S: 65/M [address] [place] [address] Unit #: [id number] Loc: [place] [address] Phys: Espinoza Villagran MD Acct: [id number] Dis Date: Status: [place] [facility] [place] #: [phone] Exam Date: 12/19/2020 1445 FAX #: [phone] Reason: LUE FISTULA MALFUNCTION EXAMS: CPT CODE: [id number] XR FLUOROSCOPY0-60 MIN 57040 Study: - XR FLUOROSCOPY 0-60 MIN 12/19/2020 2:00 PM Patient Name: TROY FORTE MR: [id number] DATE: 12/19/2020 2:00 PM : 1955; Age: 65 years y/o Male Ordering Physician: Espinoza Villagran MD Clinical Indication: LUE FISTULA MALFUNCTION Intraprocedural fluoroscopy wasprovided by the Department of Radiology. Any images obtained were interpreted by the surgeon intraoperatively. Fluoroscopy time: 18 seconds Reference Air Kerma: 1.3 mGy SL: [id number] at 1503 Reported and signed by: Ar Coffman D.O. CC: Espinoza Villagran MD Technologist: RT Naren(Melodie) Trnscrd Date/Time/By: 12/19/2020 (6439) : By:[email or web address] Orig Print D/T: S: 12/19/2020 (5338) PAGE 1 Signed ReportBASIC METABOLIC PANEL 2020-12-19 [...] 8.8 mg/dL 8.0-10.5 N CA) CBC W/AUTO [id number] 10:45:00 Test Item Value Reference Range Interpretation [...] MANUAL DIFF REQUIRED (test code NO = AMEENA) - XR CHEST 1 [id number] 10:42:[address] [facility] : 1955 Sex: M FAX: Espinoza Santillan MD [phone] Center: St: REG Name: TROY FORTE [facility] : 1955 Age/S: 65/M [address] [place] [address] Unit #: [id number] Loc: [place] [address] Phys: Espinoza Villagran MD Acct: [id number] Dis Date: Status: [place] [facility] [place]ONE #: [phone] Exam Date: 12/19/2020 1031 FAX #: [phone] Reason: PRE PROCEDURE EXAMS: CPT CODE: [id number] XR CHEST 1 V 11367 Study: - XR CHEST 1 V 12/19/2020 9:13 AM Patient Name: TROY FORTE MR: [id number] : 1955; Age: 65 years y/o Male [...] congestion and small bilateral pleural effusions. SL: [id number] at 1042 Reported and signed by: Tr Ly M.D. CC: Espinoza Villagran MD Technologist: RT Navya(R) Trnscrd Date/Time/By: 12/19/2020 (1041) : By: [email or web address] Orig Print D/T: S: 12/19/2020 (0410) PAGE 1 Signed ReportCBC W/AUTO [id number] 10:41:00 Test Item Value Reference Range Interpretation [...] code = MDIFF) COVID 19 Asymptomatic IH [id number] 10:40:00 Test Item Value Reference Range Interpretation [...] Interpretation Comments SCAN RESULT (test code = 9493971) ALBUMIN PERITONEAL [id number] 11:32:00 Test Item Value Reference Range Interpretation Comments ALBUMIN, PERITONEAL FLUID (BEAKER) 2.4 g/dL (test code = 1302998) This test was performed at [facility], [facility].Reference range is not defined and interpretation must be performed in the consideration of the pathophysiology of the analyte and the clinical context.POCT-GLUCOSE METER 2020-11-21 11:23:00 Test Item Value Reference Range Interpretation Comments POC-GLUCOSE METER 175 mg/dL 70-110 H : TESTED A T [facility] 6720 (BEAKER) (test code = [place] [facility], 1538) [address]: Transit Mix Operator/Techni elsie ID = [id number] for IB RAHIM OZLEM HEPATIC FUNCTION [id number] 10:08:00 Test Item Value Reference Range Interpretation [...] (test code = 7 U/L 6-55 347) Transit Mix Operator ID - EDASIPOCT-GLUCOSE [id number] 08:18:00 Test Item Value Reference Range Interpretation Comments POC-GLUCOSE METER 130 mg/dL 70-110 H : TESTED A T [facility] 6720 (BEAKER) (test code = [place], 1538) [address]: Transit Mix Operator/Techni elsie ID = [id number] for FAHAD CASTAÑEDA BASIC METABOLIC [id number] 07:17:00 Test Item Value Reference Range Interpretation [...] S NOT APPLICABLE FOR DIALYSIS PATIEN TS. Transit Mix Operator ID - [id number] 07:16:00 Test Item Value Reference Range Interpretation Comments MAGNESIUM (BEAKER) (test code = 2.0 mg/dL 1.6-2.6 627) Transit Mix Operator ID - ADMINCBC (HEMOGRAM ONLY)2020-11-21 06:55:00 Test [...] = 413) RAD, CHEST, 1 VIEW, NON [id number] 00:39:00Reason for exam:->SICD implantShould this be performed at the bedside?->Yes [facility] : 1955 Sex: [...] PATEL MD on 11/21/2020 12:39 AMPOCT- GLUCOSE [id number] 21:44:00 Test Item Value Reference Range Interpretation Comments POC-GLUCOSE METER 173 mg/dL 70-110 H : TESTED A T [facility] 6720 (BEAKER) (test code = [facility], 1538) [address]: Transit Mix Operator/Techni elsie ID = [id number] for WILMAN BIRD RA POCT-GLUCOSE [id number] 18:37:00 Test Item Value Reference Range Interpretation Comments POC-GLUCOSE METER 157 mg/dL 70-110 H : TESTED A T [facility] 6720 (BEAKER) (test code = [facility] R [facility], 1538) [address]: Transit Mix Operator/Techni elsie ID = [id number] for RICARDO COOK POCT-GLUCOSE [id number] 17:03:00 Test Item Value Reference Range Interpretation Comments POC-GLUCOSE METER 151 mg/dL 70-110 H : TESTED A T [facility] 6720 (BEAKER) (test code = [facility], 1538) [address]: Transit Mix Operator/Techni elsie ID = [id number] for ROSY CHASTITYKiranGRACIERY BLOOD GAS, [id number] 14:46:00 Test Item Value Reference Range Interpretation [...] (test code = 1819) 100.0 SODIUM NA-STAT [id number] 14:46:00 Test Item Value Reference Range Interpretation Comments SODIUM (BEAKER) (test code = 381) 133 meq/L 136-145 L POTASSIUM-STAT [id number] 14:46:00 Test Item Value Reference Range Interpretation Comments POTASSIUM (BEAKER) (test code = 3.3 meq/L 3.6-5.5 L 379) GLUCOSE-STAT [id number] 14:46:00 Test Item Value Reference Range Interpretation Comments GLUCOSE RANDOM (BEAKER) (test code 143 mg/dL 70-110 H = 652) HGB/HCT (H&H) - STAT [id number] 14:46:00 Test Item Value Reference Range Interpretation Comments HEMOGLOBIN (BEAKER) (test code = 7.3 GM/DL 13.0-16.8 L 410) HEMATOCRIT (BEAKER) (test code = 21.0 % 40.0-50.0 L 411) BODY FLUID CULTURE + GRAM [id number] 12:24:00 Test Item Value Reference Range Interpretation Comments CULTURE (BEAKER) (test code No growth = 1095) GRAM STAIN RESULT (BEAKER) 1+ WBCs (test code = 1123) GRAM STAIN RESULT (BEAKER) No organisms seen (test code = 26724) POCT-GLUCOSE [id number] 09:22:00 Test Item Value Reference Range Interpretation Comments POC-GLUCOSE METER 156 mg/dL 70-110 H : Notified RN/MD: (BEAKER) (test code = TESTED AT [facility] 7667 4626) [facility], [address]: Transit Mix Operator/Techni elsie ID = [id number] for AN WILLOW RICARDO PROTHROMBIN TIME/[id number] 04:26:00 Test Item Value Reference Range Interpretation [...] valves.Within 24 hours, if on CoumadinBASIC METABOLIC [id number] 04:13:00 Test Item Value Reference Range Interpretation [...] S NOT APPLICABLE FOR DIALYSIS PATIEN TS. Transit Mix Operator ID - PIROSS [id number] 04:03:00 Test Item Value Reference Range Interpretation Comments MAGNESIUM (BEAKER) (test code = 2.0 mg/dL 1.6-2.6 627) Transit Mix Operator ID - JEVON LCBC (HEMOGRAM ONLY)2020-11-20 [...] 0-0 (BEAKER) (test code = 413) POCT-GLUCOSE [id number] 21:13:00 Test Item Value Reference Range Interpretation Comments POC-GLUCOSE METER 222 mg/dL 70-110 H : TESTED A T [facility] [address] ([facility]) (test code = [facility] Melodie [facility], 153) [address]: Transit Mix Operator/Techni elsie ID = [id number] for WILMAN BIRD RA POCT-GLUCOSE [id number] 17:48:00 Test Item Value Reference Range Interpretation Comments POC-GLUCOSE METER 205 mg/dL 70-110 H : Notified RN/MD: ([facility]) (test code = TESTED AT [place] [address] 1538) [facility], [address]: Transit Mix Operator/Techni elsie ID = [id number] for AN RICARDO DAUGHERTY POCT-GLUCOSE [id number] 12:22:00 Test Item Value Reference Range Interpretation Comments POC-GLUCOSE METER 196 mg/dL 70-110 H : Notified RN/MD: ([facility]) (test code = TESTED AT [place] [address] 1538) [facility], [address]: Transit Mix Operator/Techni elsie ID = [id number] for AN RICARDO DAUGHERTY POCT-GLUCOSE [id number] 08:52:00 Test Item Value Reference Range Interpretation Comments POC-GLUCOSE METER 166 mg/dL 70-110 H : [facility] (BEAKER[facility] (test code = [facility], 153) [address]: Transit Mix Operator/Techni elsie ID = [id number] for Junie Gutiérrez POCT-GLUCOSE [id number] 08:52:00 Test Item Value Reference Range Interpretation Comments POC-GLUCOSE METER 176 mg/dL 70-110 H : [facility] (BEAKER[facility] (test code = [facility], 1538) [address]: Transit Mix Operator/Techni elsie ID = [id number] for Junie Gutiérrez POCT-GLUCOSE [id number] 08:39:00 Test Item Value Reference Range Interpretation Comments POC-GLUCOSE METER 144 mg/dL 70-110 H : Notified RN/MD: ([facility]) (test code = TESTED AT [facility] 6720 1538) [facility], [address]: Transit Mix Operator/Techni elsie ID = [id number] for RICARDO COOK BASIC METABOLIC [id number] 07:50:00 Test Item Value Reference Range Interpretation [...] S NOT APPLICABLE FOR DIALYSIS PATIEN TS. Transit Mix Operator ID - [id number] 07:46:00 Test Item Value Reference Range Interpretation Comments MAGNESIUM (BEAKER) (test code = 2.0 mg/dL 1.6-2.6 627) Transit Mix Operator ID - BENYHEPATIC FUNCTION [id number] 07:46:00 Test Item Value Reference Range Interpretation [...] (test code = 9 U/L 6-55 347) Transit Mix Operator ID - BENYB-TYPE NATRIURETIC FACTOR (BNP)2020-11-19 07:44:00 Test Item Value Reference Range Interpretation Comments B-TYPE NATRIURETIC PEPTIDE 4442 pg/mL 0-100 H (BEAKER) (test code = 700) Transit Mix Operator ID - BENYCBC (HEMOGRAM ONLY)2020-11-19 07:14:00 [...] 0-0 (BEAKER) (test code = 413) POCT-GLUCOSE [id number] 23:22:00 Test Item Value Reference Range Interpretation Comments POC-GLUCOSE METER 132 mg/dL 70-110 H : TESTED A T [facility] 6720 (BEAKER) (test code = [facility], 1538) [address]: Transit Mix Operator/Techni elsie ID = [id number] for LAURA OR ABISAI BROWN POCT-GLUCOSE [id number] 17:45:00 Test Item Value Reference Range Interpretation Comments POC-GLUCOSE METER 259 mg/dL 70-110 H : TESTED A T [facility] 6720 (BEAKER) (test code = [facility], 1538) [address]: Transit Mix Operator/Techni elsie ID = [id number] for Junie Gutiérrez T4, [id number] 09:08:00 Test Item Value Reference Range Interpretation Comments FREE T4 (BEAKER) (test code = 655) 0.62 ng/dL 0.70-1.48 L Transit Mix Operator ID - JORDAN MTSH/FREE T4 IF [id number] 08:03:00 Test Item Value Reference Range Interpretation Comments THYROID STIMULATING HORMONE 7.177 uIU/mL 0.350-4.940 H (BEAKER) (test code = 772) Transit Mix Operator ID - JORDAN MBASIC METABOLIC [id number] 07:42:00 Test Item Value Reference Range Interpretation [...] S NOT APPLICABLE FOR DIALYSIS PATIEN TS. Transit Mix Operator ID - JORDAN [id number] 07:41:00 Test Item Value Reference Range Interpretation Comments MAGNESIUM (BEAKER) (test code = 1.9 mg/dL 1.6-2.6 627) Transit Mix Operator ID - JORDAN MHEPATIC FUNCTION [id number] 07:41:00 Test Item Value Reference Range Interpretation [...] (test code = 11 U/L 6-55 347) Transit Mix Operator ID - JODRAN MCBC (HEMOGRAM ONLY)2020-11-18 06:18:00 Test Item Value [...] 0-0 (BEAKER) (test code = 413) POCT-GLUCOSE [id number] 00:01:00 Test Item Value Reference Range Interpretation Comments POC-GLUCOSE METER 164 mg/dL 70-110 H : TESTED A T [facility] 6720 (BEAKER) (test code = [facility], 1538) [address]: Transit Mix Operator/Techni elsie ID = [id number] for NO OR ABISAI BROWN POCT-GLUCOSE [id number] 17:28:00 Test Item Value Reference Range Interpretation Comments POC-GLUCOSE METER 247 mg/dL 70-110 H : TESTED A T [facility] 6720 (BEAKER) (test code = [facility], 1538) [address]: Transit Mix Operator/Techni elsie ID = [id number] for EDE GASPAR [id number] 15:35:00Medical Cytology Report Case: [id number] Authorizing Provider: Arben Cantor MD Collected: 11/16/2020 11:50 AM Ordering Location: [address] Received: 11/17/2020 09:32 AM Service Pathologist: Silvestre Le MD Specimen: Perit cabezas Fluid PERITONEAL FLUID (CYTOPSPINS): - NEGATIVE FOR MALIGNANCY Signing Pathologist Direct Phone Line: [phone] signed by Silvestre Le MD on 11/17/2020 at 3:35 [id number], CHFPERITONEAL [id number] mls madina fluid; 4 cytospinsPerformed. [facility], [facility] of [facility]ology, [address] [place] [address], [facility], [facility] of [facility], [address] [place] [address], [facility]xkMer[facility], [facility] of [facility], [address] [place] [id number], IDIS-NUCLEAR ANTIBODY (SANTANA)2020-11-17 15:14:00 Test Item Value Reference Range Interpretation Comments ANTI-NUCLEAR ANTIBODY (SANTANA) (BEAKER) Negative Negative (test code = 418) Test performed by IFA method.Test performed by IFA method.PROTEIN, TOTAL, PERITONEAL [id number] 15:08:00 Test Item Value Reference Range Interpretation Comments PROTEIN, TOTAL, PERITONEAL FLUID 5.2 g/dL (BEAKER) (test code = 9695998) POCT-GLUCOSE [id number] 12:05:00 Test Item Value Reference Range Interpretation Comments POC-GLUCOSE METER 187 mg/dL 70-110 H : TESTED A T [facility] 6720 (BEAKER) (test code = [facility], 1538) [address]: Transit Mix Operator/Techni elsie ID = [id number] for EDE GASPAR POCT-GLUCOSE [id number] 08:00:00 Test Item Value Reference Range Interpretation Comments POC-GLUCOSE METER 202 mg/dL 70-110 H : TESTED A T [facility] 6720 (BEAKER) (test code = [facility], 1538) [address]: Transit Mix Operator/Techni elsie ID = [id number] for EDE GASPAR BASIC METABOLIC [id number] 06:49:00 Test Item Value Reference Range Interpretation [...] S NOT APPLICABLE FOR DIALYSIS PATIEN TS. Transit Mix Operator ID - [id number] 06:46:00 Test Item Value Reference Range Interpretation Comments MAGNESIUM (BEAKER) (test code = 1.9 mg/dL 1.6-2.6 627) Transit Mix Operator ID - [id number] 06:46:00 Test Item Value Reference Range Interpretation Comments PHOSPHORUS (BEAKER) (test code = 6.9 mg/dL 2.3-4.7 H 604) Transit Mix Operator ID - EDASIHEPATIC FUNCTION [id number] 06:46:00 Test Item Value Reference Range Interpretation [...] (test code = 10 U/L 6-55 347) Transit Mix Operator ID - EDASIPTH, [id number] 06:40:00 Test Item Value Reference Range Interpretation Comments PARATHYROID HORMONE INTACT 540.2 pg/mL 8.5-72.5 H (BEAKER) (test code = 577) Transit Mix Operator ID - DBCBC W/PLT COUNT & AUTO [id number] 06:23:00 Test Item Value Reference Range Interpretation [...] PERCENT (BEAKER) (test code = 2801) POCT-GLUCOSE [id number] 22:19:00 Test Item Value Reference Range Interpretation Comments POC-GLUCOSE METER 233 mg/dL 70-110 H : TESTED A T [facility] 6720 (BEAKER) (test code = [facility], 1538) [address]: Transit Mix Operator/Techni elsie ID = [id number] for Emmanuel Moreno POCT-GLUCOSE [id number] 17:34:00 Test Item Value Reference Range Interpretation Comments POC-GLUCOSE METER 179 mg/dL 70-110 H : Notified RN/MD: (BEAKER) (test code = TESTED AT [facility] 6720 1538) [facility], [address]: Transit Mix Operator/Techni elsie ID = [id number] for RICARDO COOK [id number] 15:07:00 Test Item Value Reference Range Interpretation Comments FERRITIN (BEAKER) (test code = 3231.34 ng/mL 5.00-275.00 H 361) Transit Mix Operator ID - EDASIOperator ID - EDASIBODY FLUID [...] EDTA Tube (test code = 2873) POCT-GLUCOSE [id number] 13:16:00 Test Item Value Reference Range Interpretation Comments POC-GLUCOSE METER 206 mg/dL 70-110 H : Notified RN/MD: (CONRAD) (test code = TESTED AT [facility] 6720 1538) [facility], [address]: Transit Mix Operator/Techni elsie ID = [id number] for AN RICARDO DAUGHERTY U/S, [id number] 12:46:00Last Plavix 11/13Labs to be ordered:->Body Fluid Culture (w/Gram Stain, C\T\S)Needs total protein, and fluid albumin for SAAG calculationLabs to be ordered:->CytologyLabs to be ordered:->Cell Cou ntLabs to be ordered:->Other (please add comment)Reason for exam:->new onset ascites[facility] : 1955 Sex: MFINAL REPORT PROCEDURE: Ultrasound-guided paracentesis. INDICATION: 65-year-old man with ascites. DESCRIPTION: After obtaining informed written consent, ultrasound scan of theabdomen identified ascites in the right lower quadrant. The overlying skin was prepped and draped inthe usual, sterile fashion and local 2% lidocaine anesthesia was administered. A 5 Djiboutian catheter was advanced into the peritoneal cavity and 5600 cc of serous fluid was removed. The catheter was removed without immediate complication. Samples were sent for analysis. IMPRESSION:Uncomplicated ultrasound-guided paracentesis with 5600 cc fluid removed. Signed: Charles Floyd Verified Date/Time: 11/16/2020 12:46:29 Reading Location: [address] Body Reading Room [id number] 2020-11-16 11:46:00 Test Item Value Reference Range Interpretation Comments ALPHA-1 ANTITRYPSIN (CONRAD) 235.00 mg/dL 90.00-200.00 H (test code = 502) Transit Mix Operator ID - EDASIOperator ID - AAHAMIDSARS-COV2/RT-PCR ([facility]) 2020-11-16 11:16:00 Test Item Value Reference Range Interpretation Comments SARS-COV2/RT-PCR (test Negative Not Detected, Negative, code = 7934983) See external report for linked test SARS-COV-2 PERFORMING LAB [facility] (test code = 9163888) Negative result for this test determines that [...] 564(g) of the Act.Fact Sheet for Healthcare Providers:https://www.[employer]/sites/default/files/product/documents/Fact_Sheel f_TA_Fnfwogdal_Udqz_VNAA-FdA-9.pdfFact Sheet for Healthcare Patients:https://www.[employer]/sites/default/files/product/ documents/Ghmg_Pfqbz_Obmdnqyv_Lkop_TKEF-XaE-7.pdfPerforming Laboratory:[place] [address] [address], [place] [address]OKWVWGIXV A ANTIBODY, [id number] 11:06:00 Test Item Value Reference Range Interpretation Comments HEPATITIS A IGG ANTIBODY (BEAKER) Reactive Nonreactive A (test code = 2797) Transit Mix Operator ID - AAHAMIDALPHA FETOPROTEIN (AFP), TUMOR [id number] 10:52:00 Test Item Value Reference Range Interpretation Comments ALPHA-FETOPROTEIN (BEAKER) (test code < ng/mL <10.0 = 1094) Transit Mix Operator ID - AAHAMIDHEPATITIS A ANTIBODY, [id number] 09:52:00 Test Item Value Reference Range Interpretation Comments HEPATITIS A IGM ANTIBODY (BEAKER) Nonreactive Nonreactive (test code = 498) Transit Mix Operator ID - AAHAMIDHEPATITIS B CORE ANTIBODY, [id number] 09:52:00 Test Item Value Reference Range Interpretation Comments HEPATITIS B CORE TOTAL ANTIBODY Nonreactive Nonreactive (BEAKER) (test code = 497) Transit Mix Operator ID - AAHAMIDHEPATITIS B SURFACE [id number] 09:52:00 Test Item Value Reference Range Interpretation Comments HEPATITIS B SURFACE ANTIBODY 256.5 mIU/mL <8.0 H (BEAKER) (test code = 647) Transit Mix Operator ID - AAHAMIDPOCT-GLUCOSE [id number] 08:18:00 Test Item Value Reference Range Interpretation Comments POC-GLUCOSE METER 190 mg/dL 70-110 H : Notified RN/MD: (CONRAD) (test code = TESTED AT [facility] 6720 1538) [facility], [address]: Transit Mix Operator/Techni elsie ID = [id number] for AN RICARDO DAUGHERTY U/S, ABDOMINAL, [id number] 06:31:00Evaluate spleen size and hepatic vesselsAbdomen limited area? Add comment if clarification is needed.- >LiverReason for exam:->New onset ascites - CT with nodular liver contour - please examine hepatic vasculature to r/o PVT [facility] : 1955 Sex: [...] MDReport Verified Date/Time: 11/16/2020 06:31:37 U/S, DUPLEX, [id number] 06:31:00Reason for exam:->hepatic vasculature pvt [facility] : 1955 Sex: [...] Elidia Patel MDReport Verified Date/Time: 11/16/2020 06:31:37 POCT-GLUCOSE [id number] 22:44:00 Test Item Value Reference Range Interpretation Comments POC-GLUCOSE METER 191 mg/dL 70-110 H : TESTED A T [facility] 6720 (Topic) (test code = [facility], 1538) [address]: Transit Mix Operator/Techni elsie ID = [id number] for YUKI CLEMENT POCT-GLUCOSE [id number] 22:26:00 Test Item Value Reference Range Interpretation Comments POC-GLUCOSE METER 211 mg/dL 70-110 H : TESTED A T [facility] 6720 (Topic) (test code = [facility], 1538) [address]: Transit Mix Operator/Techni elsie ID = [id number] for ALEXANDRIA SALGUERO JAMES POCT-GLUCOSE [id number] 19:18:00 Test Item Value Reference Range Interpretation Comments POC-GLUCOSE METER 122 mg/dL 70-110 H : TESTED A T [facility] 6720 (BEAKER) (test code = [facility], 1538) [address]: Transit Mix Operator/Techni elsie ID = [id number] for SANDHYA LONGORIA POCT-GLUCOSE [id number] 12:37:00 Test Item Value Reference Range Interpretation Comments POC-GLUCOSE METER 173 mg/dL 70-110 H : TESTED A T [facility] 6720 (BEAKER) (test code = [facility], 1538) [address]: Transit Mix Operator/Techni elsie ID = [id number] for RICARDO COOK HEPATITIS B SURFACE [id number] 11:33:00 Test Item Value Reference Range Interpretation Comments HEPATITIS B SURFACE ANTIGEN (2) Nonreactive Nonreactive ([facility]) (test code = 2585) Specimen is considered negative for HBsAg.HEPATITIS B SURFACE [id number] 11:33:00 Test Item Value Reference Range Interpretation Comments HEPATITIS B SURFACE ANTIBODY 248.1 mIU/mL <8.0 H ([facility]) (test code = 647) Transit Mix Operator ID - DBHEPATITIS B CORE ANTIBODY, [id number] 11:33:00 Test Item Value Reference Range Interpretation Comments HEPATITIS B CORE TOTAL ANTIBODY Nonreactive Nonreactive (AKER) (test code = 497) Transit Mix Operator ID - DBHEMOGLOBIN [id number] 11:28:00 Test Item Value Reference Range Interpretation Comments HEMOGLOBIN A1C (BEAKER) (test code = 6.1 % 4.3-6.1 368) IRON, TIBC, % SAT. (WITHOUT FERRITIN)2020-11-15 11:11:00 Test Item Value Reference Range Interpretation Comments IRON (BEAKER) (test code = 547) 40.0 ug/dL 40.0-160.0 TOTAL IRON BINDING CAPACITY 166 ug/dL 250-450 L (AKER) (test code = 769) IRON % SATURATION (2) (AKER) 24 % 20-55 (test code = 2590) Transit Mix Operator ID - DBPOCT-GLUCOSE [id number] 08:18:00 Test Item Value Reference Range Interpretation Comments POC-GLUCOSE METER 204 mg/dL 70-110 H : Notified RN/MD: ([facility]) (test code = TESTED AT [facility] 6720 1538) [facility], [address]: Transit Mix Operator/Techni elsie ID = [id number] for AN RICARDO DAUGHERTY BASIC METABOLIC [id number] 07:13:00 Test Item Value Reference Range Interpretation [...] S NOT APPLICABLE FOR DIALYSIS PATIEN TS. Transit Mix Operator ID - [id number] 07:11:00 Test Item Value Reference Range Interpretation Comments MAGNESIUM (BEAKER) (test code = 2.1 mg/dL 1.6-2.6 627) Transit Mix Operator ID - DBHEPATIC FUNCTION [id number] 07:11:00 Test Item Value Reference Range Interpretation [...] (test code = 15 U/L 6-55 347) Transit Mix Operator ID - DBHEPATITIS C [id number] 06:59:00 Test Item Value Reference Range Interpretation Comments HEPATITIS C ANTIBODY (BEAKER) Nonreactive Nonreactive (test code = 367) Transit Mix Operator ID - DBCBC W/PLT COUNT & AUTO [id number] 06:57:00 Test Item Value Reference Range Interpretation [...] PERCENT (BEAKER) (test code = 2801) PROTHROMBIN [id number] 05:55:00 Test Item Value Reference Range Interpretation [...] mechanical heart valves.RAD, CHEST, 1 VIEW, NON [id number] 01:26:00Reason for exam:->Weight loss, new ascites, volume overloadShould this be performed at the bedside?->Yes [facility]OY FR[facility] : 1955 Sex: MFINAL REPORT INDICATION: Weight [...] 70-110 H 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 [facility] BASIC METABOLIC [id number] 13:42:00 Test Item Value Reference Range Interpretation [...] 8.2 mg/dL 8.0-10.5 N CA) CBC W/AUTO [id number] 13:28:00 Test Item Value Reference Range Interpretation [...] DIFF REQUIRED (test code NO = MDIFF) [id number] 11:56:00 Test Item Value Reference Range Interpretation Comments GLUBED (test code = 132 MG/DL 70-110 H 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 [facility] Novel Coronavirus 2019 [id number] 20:44:00 Test Item Value Reference Range Interpretation Comments Novel Coronavirus 2019 Inhouse (test Negative Negative code = COVNONPUI) - XR CHEST 2 [id number] 10:48:00 FAX: Espinoza Santillan MD [phone] Center: St: PRE Name: TROY FORTE [facility] : 1955 Age/S: 64/M [address] [place] [address] Unit#: [id number] Loc: [place] [address] Phys: Espinoza Villagran MD Acct: [id number] Dis Date: Status: PRE SDC PHONE #: [phone] Exam Date: 06/18/2020 0958 FAX #: [phone] Reason: PREOP- ESRD EXAMS: CPT CODE: [id number] XR CHEST 2 V 03740 CLINICAL HISTORY: PREOP- ESRD COMPARISON: March 22, [...] right atrium. 3. Bilateral pleural effusions. at 1049 Reported and signed by:Panda Puente M.D. CC: Espinoza Villagran MD Technologist: RT Paolo(R) Trnscrd Date/Time/By: 06/18/2020 (0667) : By: Ivonne Orig Print D/T: S: 06/18/2020 (5702) PAGE 1 Signed ReportBASIC METABOLIC [id number] 09:12:00 Test Item Value Reference Range Interpretation [...] = 8.0 mg/dL 8.0-10.5 N CA) PROTHROMBIN [id number] 09:06:00 Test Item Value Reference Range Interpretation [...] o prevent recurre nt infarct). THROMBOPLASTIN TIME [id number] 09:06:00 Test Item Value Reference Range Interpretation Comments THROMBOPLASTIN TIME PARTIAL (test Seconds 25.0-39.5 code = PTT) PROTHROMBIN [id number] 09:06:00 Test Item Value Reference Range Interpretation [...] o prevent recurre nt infarct). THROMBOPLASTIN TIME [id number] 09:06:00 Test Item Value Reference Range Interpretation Comments THROMBOPLASTIN TIME 37.2 Seconds 25.0-39.5 N Ther apeutic PARTIAL (test code = Range: 50.4 - 88.3 PTT) Seconds Effective 02/20/2019 CBC W/AUTO [id number] 08:58:00 Test Item Value Reference Range Interpretation [...] REQUIRED (test code NO = MDIFF) URINE [id number] 14:16:00 Test Item Value Reference Range Interpretation [...] S Sulfamethoxazole (test code = 47) CULTURE ([facility]) (test A 80-89 ,000 col/mL code = 1095) Ekaterina albican s POCT-GLUCOSE [id number] 17:07:00 Test Item Value Reference Range Interpretation Comments POC-GLUCOSE METER 168 mg/dL 70-110 H TESTED AT [place] [address] ([facility]) (test code = [facility] [place] [facility] 1538) [address] POCT-GLUCOSE [id number] 13:49:00 Test Item Value Reference Range Interpretation Comments POC-GLUCOSE METER 172 mg/dL 70-110 H TESTED AT [place] [address] ([facility]) (test code = [facility] [place] [facility] 1538) [address] BASIC METABOLIC [id number] 09:18:00 Test Item Value Reference Range Interpretation [...] H (BEAKER) (test code = 413) POCT-GLUCOSE [id number] 21:43:00 Test Item Value Reference Range Interpretation Comments POC-GLUCOSE METER 175 mg/dL 70-110 H TESTED AT [facility] 6720 ([facility]) (test code = [place] 1538) [address] POCT-GLUCOSE [id number] 12:42:00 Test Item Value Reference Range Interpretation Comments POC-GLUCOSE METER 113 mg/dL 70-110 H TESTED AT [facility] 6720 ([facility]) (test code = [place] 1538) [address] BASIC METABOLIC [id number] 08:22:00 Test Item Value Reference Range Interpretation [...] 0-0 (BEAKER) (test code = 413) POCT-GLUCOSE [id number] 21:40:00 Test Item Value Reference Range Interpretation Comments POC-GLUCOSE METER 159 mg/dL 70-110 H TESTED AT [place] [address] (BEAKER) (test code = [facility] 1538) [address] POCT-GLUCOSE [id number] 17:24:00 Test Item Value Reference Range Interpretation Comments POC-GLUCOSE METER 203 mg/dL 70-110 H TESTED AT [place] [address] ([facility]) (test code = [facility] 1538) [address] POCT-GLUCOSE [id number] 13:17:00 Test Item Value Reference Range Interpretation Comments POC-GLUCOSE METER 201 mg/dL 70-110 H TESTED AT [place] [address] ([facility]) (test code = [facility] 1538) [address] POCT-GLUCOSE [id number] 08:11:00 Test Item Value Reference Range Interpretation Comments POC-GLUCOSE METER 199 mg/dL 70-110 H TESTED AT [place] [address] ([facility]) (test code = [facility] 1538) [address] BASIC METABOLIC [id number] 07:40:00 Test Item Value Reference Range Interpretation [...] 0-0 (BEAKER) (test code = 413) POCT-GLUCOSE [id number] 23:55:00 Test Item Value Reference Range Interpretation Comments POC-GLUCOSE METER 198 mg/dL 70-110 H TESTED AT [place] [address] ([facility]) (test code = [facility] [place] [facility] 1538) [address] POCT-GLUCOSE [id number] 22:53:00 Test Item Value Reference Range Interpretation Comments POC-GLUCOSE METER 205 mg/dL 70-110 H TESTED AT [place] [address] ([facility]) (test code = [facility] [place] [facility] 1538) [address] POCT-GLUCOSE [id number] 18:28:00 Test Item Value Reference Range Interpretation Comments POC-GLUCOSE METER 252 mg/dL 70-110 H TESTED AT [place] [address] ([facility]) (test code = [facility] [place] [facility] 1538) [address] POCT-GLUCOSE [id number] 13:01:00 Test Item Value Reference Range Interpretation Comments POC-GLUCOSE METER 118 mg/dL 70-110 H TESTED AT [place] [address] ([facility]) (test code = [facility] [place] [facility] 1538) [address] BASIC METABOLIC [id number] 07:03:00 Test Item Value Reference Range Interpretation [...] NOT APPLICABLE FOR DIALYSIS PATIEN TS. POCT-GLUCOSE [id number] 21:53:00 Test Item Value Reference Range Interpretation Comments POC-GLUCOSE METER 189 mg/dL 70-110 H TESTED AT [place] [address] ([facility]) (test code = [facility] [place] [facility] 1538) [address] POCT-GLUCOSE [id number] 18:21:00 Test Item Value Reference Range Interpretation Comments POC-GLUCOSE METER 207 mg/dL 70-110 H TESTED AT [place] [address] ([facility]) (test code = [facility] Melodie [facility] 1538) [address] POCT-GLUCOSE [id number] 12:36:00 Test Item Value Reference Range Interpretation Comments POC-GLUCOSE METER 95 mg/dL 70-110 TESTED AT [place] [address] ([facility]) (test code = [facility] Mel[place] [facility] [address] 1538) BASIC METABOLIC [id number] 09:00:00 Test Item Value Reference Range Interpretation [...] H (BEAKER) (test code = 413) POCT-GLUCOSE [id number] 21:13:00 Test Item Value Reference Range Interpretation Comments POC-GLUCOSE METER 125 mg/dL 70-110 H TESTED AT [place] [address] ([facility]) (test code = [facility]UD[facility]UNTER [place] [facility] 1538) [address] POCT-GLUCOSE [id number] 13:58:00 Test Item Value Reference Range Interpretation Comments POC-GLUCOSE METER 150 mg/dL 70-110 H TESTED AT [place] [address] ([facility]) (test code = [facility] [place] [facility] 1538) [address] POCT-GLUCOSE [id number] 09:25:00 Test Item Value Reference Range Interpretation Comments POC-GLUCOSE METER 67 mg/dL 70-110 L Notified R Lola BLOUNT/TESTED AT ([facility]) (test code = [place] [address] [facility]8) [facility] 7[address] POCT-GLUCOSE [id number] 09:25:00 Test Item Value Reference Range Interpretation Comments POC-GLUCOSE METER 65 mg/dL 70-110 L Notified R Lola MD/TESTED AT ([facility]) (test code = [place] [address]) [facility] 7[address] BASIC METABOLIC [id number] 07:54:00 Test Item Value Reference Range Interpretation [...] 0-0 (BEAKER) (test code = 413) POCT-GLUCOSE [id number] 21:31:00 Test Item Value Reference Range Interpretation Comments POC-GLUCOSE METER 119 mg/dL 70-110 H TESTED AT [facility] 67[address] ([facility]) (test code = [facility] [place] 1538) [address] POCT-GLUCOSE [id number] 17:15:00 Test Item Value Reference Range Interpretation Comments POC-GLUCOSE METER 117 mg/dL 70-110 H TESTED AT [facility] 67[address] ([facility]) (test code = [facility] Mel[place] 1538) [address] POCT-GLUCOSE [id number] 12:55:00 Test Item Value Reference Range Interpretation Comments POC-GLUCOSE METER 76 mg/dL 70-110 TESTED AT [place] [address] ([facility]) (test code = [facility] [place] [facility] [address] 1538) BASIC METABOLIC [id number] 08:15:00 Test Item Value Reference Range Interpretation [...] NOT APPLICABLE FOR DIALYSIS PATIEN TS. POCT-GLUCOSE [id number] 08:11:00 Test Item Value Reference Range Interpretation Comments POC-GLUCOSE METER 101 mg/dL 70-110 TESTED AT [place] [address] ([facility]) (test code = [facility] [place] [facility] 1538) [address] CBC (HEMOGRAM ONLY)2019-06-09 06:58:00 Test Item Value [...] CORPUSCULAR HEMOGLOBIN CONC 29.3 GM/DL 32.3-36.5 L ([facility]) (test code = 752) RED CELL DISTRIBUTION WIDTH 17.9 % 11.6-14.4 H ([facility]) (test code = 412) PLATELET COUNT ([facility]) (test 344 K/CU MM 150-450 code = 756) MEAN PLATELET VOLUME ([facility]) 10.1 fL 9.4-12.4 (test code = 754) NUCLEATED RED BLOOD CELLS 0 /100 WBC 0-[address] ([facility]) (test code = 413) POCT-GLUCOSE [id number] 20:40:00 Test Item Value Reference Range Interpretation Comments POC-GLUCOSE METER 116 mg/dL 70-110 H TESTED AT [place] [address] ([facility]) (test code = [facility] [place] [facility] 1538) [address] POCT-GLUCOSE [id number] 17:32:00 Test Item Value Reference Range Interpretation Comments POC-GLUCOSE METER 122 mg/dL 70-110 H TESTED AT [place] [address] ([facility]) (test code = [facility] 1538) [address] POCT-GLUCOSE [id number] 17:14:00 Test Item Value Reference Range Interpretation Comments POC-GLUCOSE METER 112 mg/dL 70-110 H TESTED AT [place] [address] ([facility]) (test code = [facility] 1538) [address] POCT-GLUCOSE [id number] 16:56:00 Test Item Value Reference Range Interpretation Comments POC-GLUCOSE METER 219 mg/dL 70-110 H TESTED AT [place] [address] ([facility]) (test code = [facility] 1538) [address] POCT-GLUCOSE [id number] 09:50:00 Test Item Value Reference Range Interpretation Comments POC-GLUCOSE METER 117 mg/dL 70-110 H TESTED AT [place] [address] ([facility]) (test code = [facility] 1538) [address] BASIC METABOLIC [id number] 07:14:00 Test Item Value Reference Range Interpretation Comments SODIUM ([facility]) 134 meq/L 136-145 L (test code = 381) POTASSIUM ([facility]) 4.9 meq/L 3.5-5.1 (test code = 379) [...] 0-0 (BEAKER) (test code = 413) POCT-GLUCOSE [id number] 21:59:00 Test Item Value Reference Range Interpretation Comments POC-GLUCOSE METER 78 mg/dL 70-110 TESTED AT [place] [address] ([facility]) (test code = [facility] [address] 1538) POCT-GLUCOSE [id number] 17:57:00 Test Item Value Reference Range Interpretation Comments POC-GLUCOSE METER 113 mg/dL 70-110 H TESTED AT [place] [address] ([facility]) (test code = [facility] 1538) [address] POCT-GLUCOSE [id number] 14:30:00 Test Item Value Reference Range Interpretation Comments POC-GLUCOSE METER 227 mg/dL 70-110 H TESTED AT [place] [address] ([facility]) (test code = [facility] 1538) [address] BASIC METABOLIC [id number] 08:20:00 Test Item Value Reference Range Interpretation [...] NOT APPLICABLE FOR DIALYSIS PATIEN TS. POCT-GLUCOSE [id number] 08:01:00 Test Item Value Reference Range Interpretation Comments POC-GLUCOSE METER 139 mg/dL 70-110 H TESTED AT [place] [address] ([facility]) (test code = [facility] 1538) [id number] CBC (HEMOGRAM ONLY)2019-06-07 07:07:00 Test Item Value [...] 0-0 (BEAKER) (test code = 413) POCT-GLUCOSE [id number] 22:52:00 Test Item Value Reference Range Interpretation Comments POC-GLUCOSE METER 271 mg/dL 70-110 H TESTED AT [place] [address] ([facility]) (test code = [facility] 1538) [id number] POCT-GLUCOSE [id number] 17:23:00 Test Item Value Reference Range Interpretation Comments POC-GLUCOSE METER 273 mg/dL 70-110 H TESTED AT [place] [address] ([facility]) (test code = [facility] 1538) [id number] POCT-GLUCOSE [id number] 12:33:00 Test Item Value Reference Range Interpretation Comments POC-GLUCOSE METER 107 mg/dL 70-110 TESTED AT [place] [address] ([facility]) (test code = [facility] 1538) [id number] BASIC METABOLIC [id number] 08:59:00 Test Item Value Reference Range Interpretation [...] 0-0 (BEAKER) (test code = 413) POCT-GLUCOSE [id number] 21:40:00 Test Item Value Reference Range Interpretation Comments POC-GLUCOSE METER 137 mg/dL 70-110 H TESTED AT [facility] [facility]) (test code = [facility] 1538) [address] POCT-GLUCOSE [id number] 18:27:00 Test Item Value Reference Range Interpretation Comments POC-GLUCOSE METER 219 mg/dL 70-110 H TESTED AT [place] [address] ([facility]) (test code = [facility] 1538) [address] POCT-GLUCOSE [id number] 13:10:00 Test Item Value Reference Range Interpretation Comments POC-GLUCOSE METER 168 mg/dL 70-110 H TESTED AT [place] [address] ([facility]) (test code = [facility] 1538) [address] POCT-GLUCOSE [id number] 10:22:00 Test Item Value Reference Range Interpretation Comments POC-GLUCOSE METER 161 mg/dL 70-110 H TESTED AT [place] [address] ([facility]) (test code = [facility] 1538) [address] BASIC METABOLIC [id number] 04:41:00 Test Item Value Reference Range Interpretation [...] S NOT APPLICABLE FOR DIALYSIS PATIEN TS. [id number] 04:40:00 Test Item Value Reference Range Interpretation [...] 0-0 (BEAKER) (test code = 413) POCT-GLUCOSE [id number] 21:42:00 Test Item Value Reference Range Interpretation Comments POC-GLUCOSE METER 176 mg/dL 70-110 H TESTED AT [facility] [address] ([facility]) (test code = [place] 1538) [address] POCT-GLUCOSE [id number] 14:38:00 Test Item Value Reference Range Interpretation Comments POC-GLUCOSE METER 179 mg/dL 70-110 H TESTED AT [facility] ([facility]) (test code = [place] 1538) [address] POCT-GLUCOSE [id number] 09:07:00 Test Item Value Reference Range Interpretation Comments POC-GLUCOSE METER 155 mg/dL 70-110 H TESTED AT [facility] (BEAKER) (test code = [place] 1539) [address] BASIC METABOLIC [id number] 07:49:00 Test Item Value Reference Range Interpretation [...] S NOT APPLICABLE FOR DIALYSIS PATIEN TS. [id number] 07:44:00 Test Item Value Reference Range Interpretation [...] CORPUSCULAR HEMOGLOBIN CONC 29.1 GM/DL 32.3-36.5 L (AKER) (test code = 752) RED CELL DISTRIBUTION WIDTH 16.9 % 11.6-14.4 H (AKER) (test code = 412) PLATELET COUNT ([facility]) (test 321 K/CU MM 150-450 code = 756) MEAN PLATELET VOLUME (AKER) 9.9 fL 9.4-12.4 (test code = 754) NUCLEATED RED BLOOD CELLS 0 /100 WBC 0-0 (AKER) (test code = 413) POCT-GLUCOSE [id number] 22:34:00 Test Item Value Reference Range Interpretation Comments POC-GLUCOSE METER 246 mg/dL 70-110 H TESTED AT [place] [address] ([facility]) (test code = [facility] 1538) 07576 POCT-GLUCOSE [id number] 18:15:00 Test Item Value Reference Range Interpretation Comments POC-GLUCOSE METER 201 mg/dL 70-110 H TESTED AT [place] [address] ([facility]) (test code = [facility] 1538) 98957 POCT-GLUCOSE [id number] 13:12:00 Test Item Value Reference Range Interpretation Comments POC-GLUCOSE METER 211 mg/dL 70-110 H TESTED AT [place] [address] ([facility]) (test code = [facility] 1538) 46748 POCT-GLUCOSE [id number] 08:17:00 Test Item Value Reference Range Interpretation Comments POC-GLUCOSE METER 204 mg/dL 70-110 H TESTED AT [place] [address] ([facility]) (test code = [facility] 1538) [address] BASIC METABOLIC [id number] 08:05:00 Test Item Value Reference Range Interpretation [...] S NOT APPLICABLE FOR DIALYSIS PATIEN TS. [id number] 08:04:00 Test Item Value Reference Range Interpretation [...] 0-0 (BEAKER) (test code = 413) POCT-GLUCOSE [id number] 22:17:00 Test Item Value Reference Range Interpretation Comments POC-GLUCOSE METER 154 mg/dL 70-110 H TESTED AT [place] [address] ([facility]) (test code = [facility] 1538) [address] POCT-GLUCOSE [id number] 22:14:00 Test Item Value Reference Range Interpretation Comments POC-GLUCOSE METER 172 mg/dL 70-110 H TESTED AT [place] [address] ([facility]) (test code = [facility] 1538) [address] POCT-GLUCOSE [id number] 17:34:00 Test Item Value Reference Range Interpretation Comments POC-GLUCOSE METER 187 mg/dL 70-110 H TESTED AT [place] [address] ([facility]) (test code = [facility] 1538) [address] POCT-GLUCOSE [id number] 12:28:00 Test Item Value Reference Range Interpretation Comments POC-GLUCOSE METER 192 mg/dL 70-110 H TESTED AT [place] [address] ([facility]) (test code = [facility] 1538) [address]365 POCT-GLUCOSE [id number] 07:43:00 Test Item Value Reference Range Interpretation Comments POC-GLUCOSE METER 132 mg/dL 70-110 H TESTED AT [place] [address] ([facility]) ([facility] [place] 1538) [address] POCT-GLUCOSE [id number] 21:47:00 Test Item Value Reference Range Interpretation Comments POC-GLUCOSE METER 255 mg/dL 70-110 H TESTED AT [place] [address] ([facility]) (test code = [facility] 1538) [address] POCT-GLUCOSE [id number] 11:45:00 Test Item Value Reference Range Interpretation Comments POC-GLUCOSE METER 159 mg/dL 70-110 H TESTED AT [place] [address] ([facility]) (test code = [facility] 1538) [address] [id number] 11:17:00 Test Item Value Reference Range Interpretation Comments FERRITIN ([facility]) (test code = 361) 572 ng/mL 5-275 H IRON, TIBC, % SAT. (WITHOUT FERRITIN)2019-06-01 10:57:00 Test Item Value Reference Range Interpretation Comments IRON ([facility]) (test code = 547) 15.0 ug/dL 40.0-160.0 L TOTAL IRON BINDING CAPACITY 169 ug/dL 250-450 L (BEAKER) (test code = 769) IRON % SATURATION (2) (BEAKER) 9 % 20-55 L (test code = 2590) POCT-GLUCOSE [id number] 08:44:00 Test Item Value Reference Range Interpretation Comments POC-GLUCOSE METER 170 mg/dL 70-110 H TESTED AT [facility] (BEAKER) (test code = [place] 1538) [address] BASIC METABOLIC [id number] 04:42:00 Test Item Value Reference Range Interpretation [...] S NOT APPLICABLE FOR DIALYSIS PATIEN TS. [id number] 03:47:00 Test Item Value Reference Range Interpretation Comments MAGNESIUM (BEAKER) (test code = 2.1 mg/dL 1.6-2.6 627) CBC W/PLT COUNT & AUTO [id number] 03:36:00 Test Item Value Reference Range Interpretation [...] PERCENT (BEAKER) (test code = 2801) POCT-GLUCOSE [id number] 22:05:00 Test Item Value Reference Range Interpretation Comments POC-GLUCOSE METER 91 mg/dL 70-110 TESTED AT [facility] (BEAKER) (test code = [facility] [address] 1538) POCT-GLUCOSE [id number] 18:37:00 Test Item Value Reference Range Interpretation Comments POC-GLUCOSE METER 102 mg/dL 70-110 TESTED AT [place] [address] (BEAKER) (test code = [facility] 1538) [address] POCT-GLUCOSE [id number] 12:26:00 Test Item Value Reference Range Interpretation Comments POC-GLUCOSE METER 113 mg/dL 70-110 H TESTED AT [place] [address] (BEAKER) (test code = [facility] [place] 1538) [address] POCT-GLUCOSE [id number] 08:07:00 Test Item Value Reference Range Interpretation Comments POC-GLUCOSE METER 73 mg/dL 70-110 TESTED AT [place] [address] (BEAKER) (test code = [facility] [address] 1538) BLOOD [id number] 08:01:00 Test Item Value Reference Range Interpretation Comments CULTURE (BEAKER) (test No growth in 5 days code = 1095) BLOOD [id number] 08:01:00 Test Item Value Reference Range Interpretation Comments CULTURE (BEAKER) (test No growth in 5 days code = 1095) CBC W/PLT COUNT & AUTO [id number] 06:59:00 Test Item Value Reference Range Interpretation [...] (BEAKER) (test code = 2801) BASIC METABOLIC [id number] 06:27:00 Test Item Value Reference Range Interpretation [...] S NOT APPLICABLE FOR DIALYSIS PATIEN TS. [id number] 06:18:00 Test Item Value Reference Range Interpretation Comments MAGNESIUM (BEAKER) 1.6 mg/dL 1.6-2.6 Specimen slightly (test code = 627) hemolyzed URINALYSIS W/ REFLEX URINE [id number] 23:41:00 Test Item Value Reference Range Interpretation [...] code = 516) SOURCE(BEAKER) (test code = 6859) POCT-GLUCOSE [id number] 21:42:00 Test Item Value Reference Range Interpretation Comments POC-GLUCOSE METER 139 mg/dL 70-110 H TESTED AT [facility] (BEAKER) (test code = [facility] 1538) [address] POCT-GLUCOSE [id number] 20:39:00 Test Item Value Reference Range Interpretation Comments POC-GLUCOSE METER 65 mg/dL 70-110 L TESTED AT [facility] 67[address] (BEAKER) (test code = [facility] [address] 1538) POCT-GLUCOSE [id number] 17:54:00 Test Item Value Reference Range Interpretation Comments POC-GLUCOSE METER 78 mg/dL 70-110 TESTED AT [facility] ([facility]) (test code = [facility] [address] 1538) CBC W/PLT COUNT & AUTO [id number] 10:44:00 Test Item Value Reference Range Interpretation [...] 3438) Received comment: User comments: Slide comments:POCT-GLUCOSE [id number] 07:50:00 Test Item Value Reference Range Interpretation Comments POC-GLUCOSE METER 70 mg/dL 70-110 TESTED AT [facility] 67[address] (BEAKER) (test code = [place] [address] 1538) BASIC METABOLIC [id number] 06:36:00 Test Item Value Reference Range Interpretation [...] S NOT APPLICABLE FOR DIALYSIS PATIEN TS. [id number] 06:33:00 Test Item Value Reference Range Interpretation Comments MAGNESIUM (BEAKER) (test code = 2.2 mg/dL 1.6-2.6 627) POCT-GLUCOSE [id number] 22:28:00 Test Item Value Reference Range Interpretation Comments POC-GLUCOSE METER 120 mg/dL 70-110 H TESTED AT [facility] ([facility]) (test code = [facility] 1538) 94484 POCT-GLUCOSE [id number] 19:33:00 Test Item Value Reference Range Interpretation Comments POC-GLUCOSE METER 166 mg/dL 70-110 H TESTED AT [facility] ([facility]) (test code = [facility] 1538) 66015 POCT-GLUCOSE [id number] 13:30:00 Test Item Value Reference Range Interpretation Comments POC-GLUCOSE METER 168 mg/dL 70-110 H TESTED AT [facility] 67[address] (BEAKER) (test code = [facility] ([employer] [facility] 1538) [address]27 POCT-GLUCOSE [id number] 07:37:00 Test Item Value Reference Range Interpretation Comments POC-GLUCOSE METER 117 mg/dL 70-110 H TESTED AT [place] [id number] ([facility]) (test code = [facility] [employer] ([employer] [facility] 1538) [address] BASIC METABOLIC [id number] 06:57:00 Test Item Value Reference Range Interpretation [...] S NOT APPLICABLE FOR DIALYSIS PATIEN TS. [id number] 06:52:00 Test Item Value Reference Range Interpretation [...] 0-0 (BEAKER) (test code = 413) POCT-GLUCOSE [id number] 21:52:00 Test Item Value Reference Range Interpretation Comments POC-GLUCOSE METER 174 mg/dL 70-110 H TESTED AT [place] [address] ([facility]) (test code = [facility] 1538) 39298 POCT-GLUCOSE [id number] 17:58:00 Test Item Value Reference Range Interpretation Comments POC-GLUCOSE METER 151 mg/dL 70-110 H TESTED AT [place] [address] ([facility]) (test code = [facility] 1538) 20592 POCT-GLUCOSE [id number] 12:35:00 Test Item Value Reference Range Interpretation Comments POC-GLUCOSE METER 225 mg/dL 70-110 H TESTED AT [place] [address] ([facility]) (test code = [facility] 1538) 6[address]32 HEMOGLOBIN [id number] 08:34:00 Test Item Value Reference Range Interpretation Comments HEMOGLOBIN A1C ([facility]) (test code = 6.3 % 4.3-6.1 H 368) POCT-GLUCOSE [id number] 07:56:00 Test Item Value Reference Range Interpretation Comments POC-GLUCOSE METER 141 mg/dL 70-110 H TESTED AT [place] [address] ([facility]) (test code = [facility] 1538) [address]67 CBC (HEMOGRAM ONLY)2019-05-28 06:12:00 Test Item Value Reference Range Interpretation Comments WHITE BLOOD CELL COUNT ([facility]) 11.7 K/ L 3.5-10.5 H (test code = 775) RED BLOOD CELL COUNT ([facility]) 2.54 M/ L 4.63-6.08 L (test code = 761) HEMOGLOBIN (BEAKER) (test code = 7.3 GM/DL 13.7-17.5 L 410) HEMATOCRIT ([facility]) (test code = 23.4 % 40.1-51.0 L 411) MEAN CORPUSCULAR VOLUME ([facility]) 92.1 fL 79.0-92.2 (test code = 753) MEAN CORPUSCULAR HEMOGLOBIN 28.7 pg 25.7-32.2 ([facility]) (test code = 751) MEAN CORPUSCULAR HEMOGLOBIN [...] (BEAKER) (test code = 413) BASIC METABOLIC [id number] 06:02:00 Test Item Value Reference Range Interpretation [...] NOT APPLICABLE FOR DIALYSIS PATIEN TS. POCT-GLUCOSE [id number] 22:24:00 Test Item Value Reference Range Interpretation Comments POC-GLUCOSE METER 171 mg/dL 70-110 H TESTED AT [facility] (BEAKER) (test code = [facility] 1538) [address]75 HEPATITIS B [id number] 20:01:00 Test Item Value Reference Range Interpretation Comments HEPATITIS B CORE TOTAL ANTIBODY Nonreactive Nonreactive (BEAKER) (test code = 497) HEPATITIS B SURFACE ANTIBODY < mIU/mL <8.0 (BEAKER) (test code = 647) HEPATITIS B SURFACE ANTIGEN (2) Nonreactive Nonreactive (BEAKER) (test code = 7741) POCT-GLUCOSE [id number] 17:37:00 Test Item Value Reference Range Interpretation Comments POC-GLUCOSE METER 158 mg/dL 70-110 H TESTED AT [facility] (BEAKER) (test code = [facility] 1538) [address]398 CBC (HEMOGRAM ONLY)2019-05-27 16:37:00 Test Item Value [...] (BEAKER) (test code = 413) BASIC METABOLIC [id number] 16:28:00 Test Item Value Reference Range Interpretation [...] NOT APPLICABLE FOR DIALYSIS PATIEN TS. POCT-GLUCOSE [id number] 12:29:00 Test Item Value Reference Range Interpretation Comments POC-GLUCOSE METER 155 mg/dL 70-110 H TESTED AT [facility] ([facility]) (test code = [place] 1538) [address] [id number] 09:20:00 Test Item Value Reference Range Interpretation Comments PHOSPHORUS (BEAKER) (test code = 3.4 mg/dL 2.3-4.7 604) [id number] 09:20:00 Test Item Value Reference Range Interpretation Comments MAGNESIUM (BEAKER) (test code = 2.0 mg/dL 1.6-2.6 627) PH, [id number] 08:49:00 Test Item Value Reference Range Interpretation Comments PH ARTERIAL (BEAKER) (test code = 383) 7.35 7.35-7.45 POCT-GLUCOSE [id number] 08:11:00 Test Item Value Reference Range Interpretation Comments POC-GLUCOSE METER 137 mg/dL 70-110 H TESTED AT [facility] ([facility]) (test code = [facility] 1538) [address] BASIC METABOLIC [id number] 03:25:00 Test Item Value Reference Range Interpretation [...] PATIEN TS. CBC W/PLT COUNT & AUTO [id number] 03:11:00 Test Item Value Reference Range Interpretation [...] H PERCENT (BEAKER) (test code = 2801) [id number] 02:48:00 Test Item Value Reference Range Interpretation Comments MAGNESIUM (BEAKER) 2.2 mg/dL 1.6-2.6 Specimen slightly (test code = 627) hemolyzed [id number] 02:48:00 Test Item Value Reference Range Interpretation Comments PHOSPHORUS (BEAKER) 3.9 mg/dL 2.3-4.7 Specimen slightly (test code = 604) hemolyzed PH, [id number] 02:08:00 Test Item Value Reference Range Interpretation Comments PH ARTERIAL (BEAKER) (test code = 383) 7.41 7.35-7.45 RAD, CHEST, 1 VIEW, NON [id number] 22:15:00Reason for exam:->line placementShould this be performed [...] Signed: Marya Arredondo Verified Date/Time: 05/26/2019 22:15:38 [facility] METABOLIC [id number] 17:25:00 Test Item Value Reference Range Interpretation [...] NOT APPLICABLE FOR DIALYSIS PATIEN TS. POCT-GLUCOSE [id number] 17:09:00 Test Item Value Reference Range Interpretation Comments POC-GLUCOSE METER 233 mg/dL 70-110 H TESTED AT [facility] [address] ([facility]) (test code = [place] 1538) [address] TROPONIN [id number] 12:31:00 Test Item Value Reference Range Interpretation [...] failure, acidosis, acute neurological disease, and persistent tachyarrhythmia.[id number] 12:26:00 Test Item Value Reference Range Interpretation Comments CALCIUM (BEAKER) (test code = 697) 7.7 mg/dL 8.4-10.2 L [id number] 12:24:00 Test Item Value Reference Range Interpretation Comments POTASSIUM (BEAKER) (test code = 4.4 meq/L 3.5-5.1 379) [id number] 12:24:00 Test Item Value Reference Range Interpretation Comments MAGNESIUM (BEAKER) (test code = 2.2 mg/dL 1.6-2.6 627) [id number] 12:24:00 Test Item Value Reference Range Interpretation Comments SODIUM (BEAKER) (test code = 381) 128 meq/L 136-145 L POCT-GLUCOSE [id number] 12:15:00 Test Item Value Reference Range Interpretation Comments POC-GLUCOSE METER 281 mg/dL 70-110 H TESTED AT [facility] (BEAKER) (test code = [facility] [place] 1538) [address] PH, [id number] 11:52:00 Test Item Value Reference Range Interpretation Comments PH ARTERIAL (BEAKER) (test code = 383) 7.36 7.35-7.45 RAD, CHEST, 1 VIEW, NON [id number] 08:05:00Reason for exam:->central line placementFINAL REPORT CLINICAL [...] Villagran MDReport Verified Date/Time:05/26/2019 08:05:54 Reading Location: [facility] C013V Neuro Reading Room TROPONIN [id number] 06:42:00 Test Item Value Reference Range Interpretation [...] acidosis, acute neurological disease, and persistent tachyarrhythmia.TROPONIN [id number] 06:41:00 Test Item Value Reference Range Interpretation [...] acute neurological disease, and persistent tachyarrhythmia.BASIC METABOLIC [id number] 06:23:00 Test Item Value Reference Range Interpretation [...] NOT APPLICABLE FOR DIALYSIS PATIEN TS. PROTHROMBIN [id number] 06:20:00 Test Item Value Reference Range Interpretation [...] INR is2.5-3.5 for patients wiht mechanical heart valves.[id number] 06:17:00 Test Item Value Reference Range Interpretation Comments PHOSPHORUS (BEAKER) (test code = 4.5 mg/dL 2.3-4.7 604) [id number] 06:17:00 Test Item Value Reference Range Interpretation Comments MAGNESIUM (BEAKER) (test code = 2.4 mg/dL 1.6-2.6 627) CBC W/PLT COUNT & AUTO [id number] 06:03:00 Test Item Value Reference Range Interpretation [...] (test code = 2801) TSH/FREE T4 IF [id number] 22:17:00 Test Item Value Reference Range Interpretation Comments THYROID STIMULATING HORMONE 3.33 uIU/mL 0.35-4.94 (BEAKER) (test code = 772) TROPONIN [id number] 21:59:00 Test Item Value Reference Range Interpretation [...] H (BEAKER) (test code = 700) C-REACTIVE [id number] 21:51:00 Test Item Value Reference Range Interpretation Comments C-REACTIVE PROTEIN (BEAKER) (test 13.88 mg/dL 0.00-0.50 H code = 676) COMPREHENSIVE METABOLIC [id number] 21:51:00 Test Item Value Reference Range Interpretation [...] PATIEN TS. CBC W/PLT COUNT & AUTO [id number] 21:20:00 Test Item Value Reference Range Interpretation [...]
--- NOTE | 2022-02-15 09:35 | RAD REPORT ---
EXAM DESCRIPTION: CT - Spine Lumbar Wo Con - 02/15/2022 9:07 am CLINICAL HISTORY: low back pain COMPARISON: None. TECHNIQUE: Thin section axial imaging of the lumbar spine was performed. Sagittal and coronal recon struction images were generated and reviewed. All CT scans are performed using dose optimization technique as appropriate and may include automated exposure control or mA/KV adjustment according to patient size. FINDINGS: The T12 body shows approximately 40% compression fracture deformity with posterior wall bu lging into the central canal. This causes spinal stenosis down to 8 mm. No further loss in height sin ce the February 05 examination. No paraspinal soft tissue mass component. Fracture lines are evident at t he body pedicle junctions on both sides. Bone shows increased density compared to the adjacent osteop enic vertebrae. No lytic destructive process seen. A clearly blastic or pathologic bone process is no t seen. Lumbar vertebral bodies appear osteopenic. Lumbar height and alignment are normal. No acute finding o f the lumbar vertebral body. Central canal detail is inherently limited. No disc herniation or significant degree of disc bulging seen in the upper 3 lumbar levels. L4-5 disc bulge changes are present along with mild posterior liga mentous thickening. Central canal is 11 mm. Facet joint degenerative changes are present throughout the lumbar spine. No pars defect. No facet shamar int alignment abnormality. No paraspinal soft tissue mass or periaortic lymphadenopathy. Aortic calcifications are present witho ut aneurysm. IMPRESSION: Approximately 40% T12 compression fracture encroaching into the central canal causing sp inal stenosis down to 8 mm. When compared to February 22 imaging there is no further loss in height in the T12 body. The T12 body shows increased density relative to the adjacent bodies but is not clearly blastic. Lyti c component is not seen. Osteoporotic compression fractures favored but not definitive versus is a ne oplastic etiology. With fractures at the body pedicle junction, this middle column fracture is not considered stable.
[2022-02-15 09:41] LABS: Absolute Lymphocytes (CBC) 0.2 K/uL (0.7-4.9); Hematocrit 33.5 % (39.6-49.0); Lymphocytes % 2.4 % (15.3-44.8); MPV 8.2 fL (7.6-11.3); RBC Red Blood Cell Count 3.62 M/uL (4.33-5.43)
[2022-02-15 09:47] LABS: Protime INR 1.07
[2022-02-15] MEDS ORDERED: MORPHINE 4 MG/ML SYR ONE (09:55)
[2022-02-15] MEDS ORDERED: ONDANSETRON 4 MG/2 ML VIAL ONE (09:55)
[2022-02-15 10:24] LABS: ALT/SGPT 17 U/L (12-78); AST/SGOT 17 U/L (15-37); Albumin 2.9 g/dL (3.4-5.0); Alkaline Phosphatase 95 U/L (45-117); BUN Blood Urea Nitrogen 47 mg/dL (7-18); Bicarbonate 30 mmol/L (21-32); Bilirubin Direct 0.4 mg/dL (0-0.2); Bilirubin Total 0.9 mg/dL (0.2-1.0); Glucose Level 74 mg/dL (74-106); Magnesium 2.2 mg/dL (1.8-2.4); NT PRO-BNP > 175000 pg/mL (<125); Potassium 3.8 mmol/L (3.5-5.1); Protein, Total 6.9 g/dL (6.4-8.2); Sodium Level 136 mmol/L (136-145)
[2022-02-15 10:25] LABS: Troponin High Sensitivity 126.9 pg/mL (<58.9)
[2022-02-15 10:45] LABS: Anisocytosis 2+; Blood Morphology Comment NOTED (NOT SEEN); Hypochromasia 1+; Platelet Estimate ADEQ; Platelets, Giant FEW PRESENT; Polychromasia 1+
[2022-02-15 10:46] LABS: Ovalocytes 1+
--- NOTE | 2022-02-15 11:23 | RAD REPORT ---
EXAM DESCRIPTION: RAD - Chest Single View - 02/15/2022 10:53 am CLINICAL HISTORY: SOB COMPARISON: Two view chest February 06 TECHNIQUE: AP portable chest image was obtained 02/15/2022 10:53 am . FINDINGS: Lung volumes are low. Defibrillator is present with battery pack in the lower left chest s oft tissues. Sternotomy wires are in place. Right-sided pleural effusion is similar to the prior stud y. A smaller left pleural effusion is also seen as stable. Lung parenchymal opacities are not clearly different from the February 06 study. Stable cardiomegaly is present. Vasculature is similar to less pronounced. No pneumothorax is presen t. IMPRESSION: Pleural and parenchymal opacification present not substantially different from the February 06 imaging.
--- NOTE | 2022-02-15 12:34 | ER ---
Nurse's Notes [facility] Name: Benji Villalpando Age: 66 yrs Sex: Male : 1955 Arrival Date: 02/15/2022 Time: 08:29 Bed 4 Private MD: Diagnosis: T12 Fracture;Congestive Heart Failure Presentation: 02/15 08:29 Chief complaint: EMS states: Patient fell about a month ago. Complaining of left hip, ww lower back pain and left lower abdominal pain that radiates up to the PPM. EMS states they found him slumped over in his truck and had to pull him out. Coronavirus screen: Vaccine status: Patient reports receiving the 2nd dose of the covid vaccine. Client denies travel out of the [place] in the last 14 days. Ebola Screen: Patient denies travel to an Ebola-affected area in the 21 days before illness onset. Initial Sepsis Screen: Does the patient meet any 2 criteria? No. Patient's initial sepsis screen is negative. Does the patient have a suspected source of infection? No. Patient's initial sepsis screen is negative. Risk Assessment: Do you want to hurt yourself or someone else? Patient reports no desire to harm self or others. Onset of symptoms is unknown. 08:29 Method Of Arrival: EMS: [facility] 08:29 Acuity: MILADYS 3 ww Triage Assessment: 08:33 General: Appears in no apparent distress. uncomfortable, Behavior is calm, cooperative. ww Pain: Complains of pain in back, abdomen and left leg. Neuro: Level of Consciousness is awake, alert, obeys commands, Oriented to person, place, time, situation, Speech is normal. Cardiovascular: Patient's skin is warm and dry. Chest pain is denied. Respiratory: Airway is patent Respiratory effort is even, unlabored, Respiratory pattern is regular, symmetrical. GI: Abdomen is non-distended, bruised on right lower quadrant Reports lower abdominal pain. : Reports hemodialysis. Historical: - Allergies: :33 No Known Allergies; ww - PMHx: :33 Anemia; CHF; chronic kidney disease; Diabetes - NIDDM; Dialysis T-T-S; Hyperlipidemia; ww Hypertension; Hypothyroidism; Myocardial infarction; RENAL FAILURE; - PSHx: : fistula; heart bypass; pacemaker; ww - Immunization history:: Adult Immunizations up to date. - Social history:: Smoking status: Patient denies any tobacco usage or history of. Screenin:37 Abuse screen: Denies threats or abuse. Denies injuries from another. Nutritional ww screening: No deficits noted. Tuberculosis screening: No symptoms or risk factors identified. Fall Risk Fall in past 12 months (25 points). No secondary diagnosis (0 pts). No IV (0 pts). Ambulatory Aid- None/Bed Rest/Nurse Assist (0 pts). Gait- Normal/Bed Rest/Wheelchair (0 pts) Mental Status- Oriented to own ability (0 pts). Total Nayak Fall Scale indicates Low Risk Score (25-44 pts). Fall prevention measures have been instituted. Side Rails Up X 2 Placed close to Nursing Station 1:1 attendant Assigned to Pt. Frequent Obs/Assesments occuring Family Present and informed to notify staff if they need to leave bedside As available Patient and Family Educated on Fall Prevention Program and strategies. Assessment: 08:37 Reassessment: Patient appears in no apparent distress at this time. No changes from ww previously documented assessment. see triage assessment. 09:43 Reassessment: Patient appears in no apparent distress at this time. No changes from ww previously documented assessment. Patient and/or family updated on plan of care and expected duration. Pain level reassessed. Patient is alert, oriented x 3, equal unlabored respirations, skin warm/dry/pink. family at bedside. 10:30 Reassessment: Patient appears in no apparent distress at this time. No changes from ww previously documented assessment. Patient and/or family updated on plan of care and expected duration. Pain level reassessed. Patient is alert, oriented x 3, equal unlabored respirations, skin warm/dry/pink. family at bedside. 11:28 Reassessment: Patient and/or family updated on plan of care and expected duration. Pain jg9 level reassessed. Patient states feeling better. Patient reports pain is 6/10 now. 12:10 Reassessment: Patient appears in no apparent distress at this time. No changes from ww previously documented assessment. Patient and/or family updated on plan of care and expected duration. Pain level reassessed. Patient is alert, oriented x 3, equal unlabored respirations, skin warm/dry/pink. 13:01 Reassessment: Patient appears in no apparent distress at this time. No changes from previously documented assessment. Patient and/or family updated on plan of care and expected duration. Pain level reassessed. resting in bed, no apparent distress noted. 13:52 Reassessment: Report given to HIRA Brown at [facility] in [facility]. MOT signed. Vital Signs: 08:29 BP 106 / 72; Pulse 80; Resp 16; Temp 98.2; Pulse Ox 97% on R/A; Weight 79.38 kg; Height ww 5 ft. 4 in. (162.56 cm); Pain 8/10; 09:44 BP 117 / 75; Pulse 78; Resp 16; Pulse Ox 2 lpm NC; ww 10:00 BP 108 / 62; Pulse 73; Resp 16 S; jg9 11:00 BP 105 / 69; Pulse 72; Resp 18 S; Pain 6/10; jg9 12:30 BP 87 / 64; Pulse 67; Resp 20 S; Pulse Ox 94% on 2 lpm NC; jg9 13:30 BP 96 / 66; Pulse 67; Resp 18 S; Pulse Ox 94% on 2 lpm NC; jg9 14:00 BP 85 / 65; Pulse 67; Resp 20 S; Pulse Ox 95% on 2 lpm NC; jg9 08:29 Body Mass Index 30.04 (79.38 kg, 162.56 cm) ED Course: 08:29 Patient arrived in ED. ww 08:29 Monica Mcginnis, RN is Primary Nurse. ww 08:33 Triage completed. ww 08:33 Arm band placed on. ww 08:37 Patient has correct armband on for positive identification. Call light in reach. Side ww rails up X2. Adult w/ patient. NIBP on. 08:43 Jimmie Og PA is PHCP. [facility] 08:43 Eugene Simons MD is Attending Physician. jmm 09:08 CT Lumbar Spine Wo Con In Process Unspecified. EDMS 09:44 EKG done. Inserted saline lock: 20 gauge in right forearm, using aseptic technique. ww 10:47 initiated transfer to [facility]. bd 10:56 XRAY Chest (1 view) In Process Unspecified. EDMS 13:34 pt accepted in transfer to [facility] by dr Fregoso, admit approval given by guilherme Resendez. 14:08 No apparent distress. Resting quietly. jg9 14:41 No provider procedures requiring assistance completed. Patient transferred, IV remains ww in place. Administered Medications: 09:54 Drug: Zofran (Ondansetron) 4 mg Route: IVP; Infused Over: 2 mins; Site: right forearm; ww 11:24 Follow up: Response: No adverse reaction j9 09:56 Drug: morphine 4 mg Route: IVP; Site: right forearm; ww 11:24 Follow up: Response: No adverse reaction; Pain is decreased; RASS: Alert and Calm (0) jg9 Outcome: 12:33 ER care complete, transfer ordered by MD. mauricio 14:41 Transferred by ground EMS Note: [facility] ww 14:41 Condition: stable 14:41 Instructed on the need for transfer. 14:42 Patient left the ED. ww Signatures: Dispatcher [employer] EDMS Kate Malik Joel, PA PA jmm Gilmore, Jennifer, RN RN jg9 Monica Mcginnis RN RN ww Corrections: (The following items were deleted from the chart) 11:31 11:00 BP 105 / 69; Pulse 72bpm; Resp 18bpm; Spontaneous; jg9 j9
--- NOTE | 2022-02-15 12:34 | EDPHYS ---
Physician Documentation [facility] Name: Benji Villalpando Age: 66 yrs Sex: Male : 1955 Arrival Date: 02/15/2022 Time: 08:29 Bed 4 Private MD: ED Physician Eugene Simons HPI: 02/15 08:49 This 66 yrs old Male presents to ER via EMS with complaints of Left side pain. jmm 08:49 The patient presents with pain. Onset: The symptoms/episode began/occurred 2 week(s) jmm ago. Modifying factors: The symptoms are alleviated by nothing. the symptoms are aggravated by nothing. This is a 66-year-old male with history of CHF, chronic kidney disease, end-stage renal disease, diabetes mellitus, anemia the presents emerged department with complaints mainly of ongoing left-sided back pain which radiates down to the left leg. Patient was evaluated for this about 10 days ago. Patient was admitted for hypoxia, Covid diagnosed with congestive heart failure. Patient had a fall earlier today which was unwitnessed. . Historical: - Allergies: 08:33 No Known Allergies; ww - PMHx: 08:33 Anemia; CHF; chronic kidney disease; Diabetes - NIDDM; Dialysis T-T-S; Hyperlipidemia; ww Hypertension; Hypothyroidism; Myocardial infarction; RENAL FAILURE; - PSHx: 08:33 fistula; heart bypass; pacemaker; ww - Immunization history:: Adult Immunizations up to date. - Social history:: Smoking status: Patient denies any tobacco usage or history of. ROS: 08:49 Constitutional: Negative for fever, chills, and weight loss, Cardiovascular: Negative jmm for chest pain, palpitations, and edema, Respiratory: Negative for shortness of breath, cough, wheezing, and pleuritic chest pain, Abdomen/GI: Negative for abdominal pain, nausea, vomiting, diarrhea, and constipation. 08:49 Back: Positive for pain with movement. 08:49 MS/extremity: Positive for pain. 08:49 All other systems are negative. Exam: 08:49 Constitutional: This is a well developed, well nourished patient who is awake, alert, jmm and in no acute distress. Head/Face: atraumatic. Eyes: EOMI, no conjunctival erythema appreciated ENT: Moist Mucus Membranes Neck: Trachea midline, Supple Chest/axilla: Normal chest wall appearance and motion. 08:49 Cardiovascular: Rate: normal, Rhythm: regular. 08:49 Respiratory: the patient does not display signs of respiratory distress, Respirations: normal, Breath sounds: are clear throughout. 08:49 Abdomen/GI: Inspection: obese Bowel sounds: normal, Palpation: abdomen is soft and non-tender, in all quadrants. 08:49 Back: ROM is painful, vertebral tenderness, is appreciated at T12, L1 and L2. 08:49 Musculoskeletal/extremity: ROM: intact in all extremities, Full dorsalis pedis pulse appreciated, compartments are soft, neurovascular intact. 08:49 Skin: Appearance: Color: normal in color. 08:49 Neuro: Extensor hallucis longus intact bilaterally. 08:49 Psych: Behavior/mood is pleasant, cooperative. Vital Signs: 08:29 BP 106 / 72; Pulse 80; Resp 16; Temp 98.2; Pulse Ox 97% on R/A; Weight 79.38 kg; Height ww 5 ft. 4 in. (162.56 cm); Pain 8/10; 09:44 BP 117 / 75; Pulse 78; Resp 16; Pulse Ox 2 lpm NC; ww 10:00 BP 108 / 62; Pulse 73; Resp 16 S; jg9 11:00 BP 105 / 69; Pulse 72; Resp 18 S; Pain 6/10; jg9 12:30 BP 87 / 64; Pulse 67; Resp 20 S; Pulse Ox 94% on 2 lpm NC; jg9 13:30 BP 96 / 66; Pulse 67; Resp 18 S; Pulse Ox 94% on 2 lpm NC; jg9 14:00 BP 85 / 65; Pulse 67; Resp 20 S; Pulse Ox 95% on 2 lpm NC; jg9 08:29 Body Mass Index 30.04 (79.38 kg, 162.56 cm) ww MDM: 08:49 Patient medically screened. [facility] 12:29 Data reviewed: vital signs, nurses notes. Counseling: I had a detailed discussion with luly the patient and/or guardian regarding: the historical points, exam findings, and any diagnostic results supporting the discharge/admit diagnosis, lab results, radiology results, the need to transfer to another facility. ED course: Dr. Nguyen discussed the patient with me stated that the patient has a T12 fracture which appears unstable. Patient will be transferred due to no spine surgery at this hospital. I discussed the patient with Dr. Cowan whom is a spine surgeon and will consult on the transfer out of [facility]. I discussed the patient with the hospitalist as well whom accepted the patient for transfer.. 02/15 08:50 Order name: Basic Metabolic Panel; Complete Time: 10:27 [facility] 02/15 08:50 Order name: CBC with Diff; Complete Time: 10:51 [facility] 02/15 08:50 Order name: LFT's; Complete Time: 10: [facility] 02/15 08:50 Order name: Magnesium; Complete Time: 10: [facility] 02/15 08:50 Order name: NT PRO-BNP; Complete Time: 10: [facility] 02/15 08:50 Order name: PT-INR; Complete Time: 09:49 [facility] 02/15 08:50 Order name: Troponin HS; Complete Time: 10:27 [facility] 02/15 08:50 Order name: XRAY Chest (1 view); Complete Time: 11:25 [facility] 02/15 08:52 Order name: CT Lumbar Spine Wo Con; Complete Time: 09:39 [facility] 02/15 09:46 Order name: Manual Differential; Complete Time: 10:51 [facility] 02/15 09:59 Order name: SARS-COV-2 RT PCR (Document "Date of Onset" if Symptomatic); Complete Time: [facility] 11:28 02/15 08:50 Order name: EKG; Complete Time: 08:51 [facility] 02/15 08:50 Order name: Cardiac monitoring; Complete Time: 09:42 [facility] 02/15 08:50 Order name: EKG - Nurse/Tech; Complete Time: 09:42 [facility] 02/15 08:50 Order name: IV Saline Lock; Complete Time: 09:42 [facility] 02/15 08:50 Order name: Labs collected and sent; Complete Time: 09:43 [facility] 02/15 08:50 Order name: O2 Per Protocol; Complete Time: 09:43 [facility] Administered Medications: 09:54 Drug: Zofran (Ondansetron) 4 mg Route: IVP; Infused Over: 2 mins; Site: right forearm; ww 11:24 Follow up: Response: No adverse reaction jg9 09:56 Drug: morphine 4 mg Route: IVP; Site: right forearm; ww 11:24 Follow up: Response: No adverse reaction; Pain is decreased; RASS: Alert and Calm (0) jg9 Disposition: 19:13 Co-signature as Attending Physician, Eugene Simons MD. rn Disposition Summary: 02/15/22 12:33 Transfer Ordered Transfer Location: Other Acute Care Facility jmm Reason: Higher level of care jmm Condition: Stable jmm Problem: new jmm Symptoms: are unchanged jmm Accepting Physician: Dr. Cunningham(02/15/22 14:42) arie Diagnosis - T12 Fracture jmm - Congestive Heart Failure jmm Forms: - Medication Reconciliation Form jmm - SBAR form jmm Signatures: Dispatcher [employer] EDMS Jimmie Og PA PA Eugene Villalta MD MD rn Wood, Whitney, RN RN ww Gilmore, Jennifer RN jg9 Corrections: (The following items were deleted from the chart) 12:28 12:23 This 66 yrs old Male presents to ER via EMS with complaints of Left side jmm pain. [facility] 14:42 12:[address] [facility]
[2022-02-15 15:21] VITALS: TEMP 98.2
[2022-02-15 15:31] VITALS: BP 85/65; O2SAT 95
--- NOTE | 2022-02-17 11:06 | EKG ---
Test Date: 2022-02-15 Test Time: 09:37:04 Intern Brand: CINDY MEASUREMENT RESULTS: Intervals: Rate: 77 SC: 158 QRSD: 138 QT: 426 QTc: 482 Page: P: 45 SC: 158 QRS: -43 T: 126 INTERPRETIVE STATEMENTS: Undetermined rhythm Left axis deviation Nonspecific intraventricular block Cannot rule out Anterior infarct, age undetermined T wave abnormality, consider lateral ischemia Abnormal ECG Compared to ECG 07/17/2021 14:49:15 Left-axis deviation now present T-wave abnormality now present Possible ischemia now present Sinus rhythm no longer present Left anterior fascicular block no longer present Myocardial infarct finding still present Electronically Signed On 02-17-22 10:58:20 CDT by Puneet Banerjee
== END 2022-02-15 14:42 ==
LOC: ER 08:23
DX: S22.089A Unspecified fracture of T11-T12 vertebra, initial encounter for closed fracture (principal); W19.XXXA Unspecified fall, initial encounter; E11.22 Type 2 diabetes mellitus with diabetic chronic kidney disease; I13.2 Hypertensive heart and chronic kidney disease with heart failure and with stage 5 chronic kidney disease, or end stage renal disease; N18.6 End stage renal disease; I50.9 Heart failure, unspecified; Z99.2 Dependence on renal dialysis; Z95.1 Presence of aortocoronary bypass graft; Z95.0 Presence of cardiac pacemaker; Z20.822 Contact with and (suspected) exposure to COVID-19
CPT/HCPCS: 93005; 85025; 80048; 36415; 83735; 85610; 80076; 84484; 83880; 72131; 71045; 96375; 96374; 99285; U0003; J2405

== ENCOUNTER 2022-03-01 18:54 | Inpatient (IN) | payer OTHER ==
--- OUTSIDE RECORDS SUMMARY | 2022-03-01 19:05 | XMS REPORT | Continuity of Care Document ---
:1955 Author Organization [facility] t Address [address] [place] [address] Care Team Providers Name Role Phone ISABELLA COFFMAN Primary Care Physician Unavailable Hallie Coffman Attending Clinician Unavailable Humberto Villagran Attending Clinician Unavailable NACHO CANTOR Attending Clinician Unavailable MONICA SIMS Attending Clinician UnavailHarshad Jara Attending Clinician Unavailable UMAIR ROSSI Attending Clinician Unavailable MARY PERRY Attending Clinician Unavailable Ez KOHLER Attending Clinician Unavailable Melodie BERRY Attending Clinician Unavailable DUKE Attending Clinician Unavailable Corrie_Lashell_CARMITA Attending Clinician Unavailable Graciela HEWITT Attending Clinician Unavailable RODRIGUE Attending Clinician Unavailable MEGHNA Admitting Clinician Unavailable UNDEFINED Admitting Clinician Unavailable NACHO CANTOR Admitting Clinician Unavailable KNOW Admitting Clinician Unavailable AMELIZABETH Admitting Clinician Unavailable SHIN ARAIZA Admitting Clinician Unavailable ISAAC Admitting Clinician Unavailable Corrie_A_AH Admitting Clinician Unavailable KASH, K. Admitting Clinician Unavailable Payers Payer Name Policy Type Policy Number Effective Date Expiration Date Ganesh allred TEXINESPLUS HMO ALL [id number] 2019 00:00:00 WE[facility]CARE [facility] [id number] 2019 00:00:00 HUMANA MEDICARE [id number] 2021 ADV 00:00:00 WELLARIEL [place] [id number] 2020 STAR PLUS 00:00:00 WELLCARE OF [place] - [id number] 2019 TEXANPLUS 00:00:00 (MEDICARE REPLACEMENT/ADVANT AGE - HMO) Problems This patient has no known problems. Allergies, Adverse Reactions, Alerts Allergy Allergy Status Severity Reaction(s) Onset Inactive Treating Comm ents Source Name Type Date Date Clinician No Known DA Active U [facility] Clear s 00:00: Padron [address] [facility] No Known DA Active U 0 [facility] Allergie 5-16 Clear s 00:00: Padron [address] [facility] NO KNOWN Allergy Active WH ALLERGIE S NO KNOWN Drug Active Univers ALLERGIE Class ity of S [facility] Medications Ordered Filled Start Stop Current Ordering Indication Dosage Frequency Signature Comments Components Source Medication Medication Date Date Medication? Clinician (SIG) Name Name Aspirin 81 Aspirin 81 Yes Isabella [address] [facility] Clopidogrel Clopidogrel Yes Isabella [address] [facility] Bisulfate Bisulfate [facility] Basaglar Basaglar Yes Isabella inject [address] [facility] KwikPen KwikPen [facility]man units [facility] Tradjenta Tradjenta Yes Isabella [address] [facility] Senna Senna Yes Isabella [address] [facility] at bedtime [facility] Lantus Lantus Yes Isabella as [facility] SoloStar SoloStar Coffman directed [facility] - [facility] Aspirin Aspirin Yes Isabella TAKE 1 [facility] TABLET BY [facility] EVERY DAY l [facility]ics Atorvastati Atorvastati Yes Isabella TAKE [address] [facility] [facility] n Calcium n Calcium Coffman TABLET BY [facility] BEDTIME [facility] Midodrine Midodrine Yes Isabella [address] HCl HCl [facility] Lorazepam Lorazepam Yes Isabella [address] [facility] as needed [facility] Synthroid Synthroid Yes Isabella [address] [facility] [facility] on an [facility] stomach in l [facility] Atorvastati Atorvastati Yes Isabella [address] n Calcium n Calcium [facility] Vital Signs Vital Name Observation [...] Date/Time Type Type Clinicians Facility Department ID 2022-02-15 Outpatient Coffman, STLMLC [facility] [id number] 13:14:00 [facility] 2022-02-10 Outpatient Coffman, [facility] [id number] 09:24:01 Isabella [id number] [facility] 2022-01-22 Outpatient Coffman, [facility] [id number] 10:07:00 Isabella 42765 [facility] 2021-12-02 Outpatient Coffman, [facility] [id number] 14:22:20 Isabella 41750 [facility] 2021-12-02 Outpatient Coffman, [facility] [id number] 13:47:46 Isabella 24712 [facility] 2021-12-02 Outpatient Coffman, [facility] [id number] 13:38:19 Isabella 54246 [facility] 2021-12-02 Outpatient Coffman, [facility] [id number] 13:27:09 Isabella 52600 [facility] 2021-12-02 Outpatient Coffman, [facility] [id number] 12:41:17 Isabella 59677 [facility] 2021-12-02 Outpatient Coffman, [facility] [id number] 12:35:51 Isabella 21063 [facility] 2021-12-02 Outpatient Coffman, [facility] [id number] 12:35:15 Isabella 46823 [facility] 2021-12-02 Outpatient Coffman, [facility] [id number] 12:07:23 Isabella 51322 [facility] 2021-12-02 Outpatient Coffman, [facility] [id number] 11:39:10 Isabella 33125 [facility] 2021-12-02 Outpatient Coffman, [facility] [id number] 11:20:23 Isabella 73348 [facility] 2021-12-02 Outpatient Coffman, STLMLC [facility]C [id number] 11:18:51 Isabella 57265 [facility] 2021-12-02 Outpatient Coffman, STLMLC STLMLC [id number] 11:16:22 Isabella 65660 [facility] 2021-12-02 Outpatient Coffman, STLMLC STLMLC [id number] 11:05:05 Isabella 33065 [facility] 2020-12-19 Inpatient Allen, Bill HCACL DAYS [id number] [facility] 13:00:00 [id number] [facility] 2020-11-14 Inpatient ER KALDIS, [facility] [id number] [facility] 21:46:00 ARBEN 2020-06-20 Inpatient Allen, Bill HCACL DAYS [id number] [facility] 13:00:00 [id number] [facility] 2020-06-18 Inpatient Allen Bill HCACL DAYS [id number] - [facility] 08:30:00 [id number] [facility] 2019-05-04 Inpatient M[facility]H [facility] [id number] [facility] 17:34:38 2022-02-09 2022-02-09 ambulatory STLMLC [facility] [id number] [facility] 2022-01-22 2022-01-22 ambulatory STLMLC [facility] [id number] [facility] 2022-01-18 2022-01-18 ambulatory STLMLC [facility] [id number] [facility] 2022-01-18 2022-01-18 ambulatory STLMLC [facility]MLC [id number] [facility] 2021-12-28 2021-12-28 Outpatient EL [facility] [id number] [facility] 00:00:00 00:00:00 2021-12-22 2021-12-22 ambulatory STLMLC [facility] [id number] [facility] 2021-11-27 2021-11-27 Outpatient EL [facility] SLE [id number] [facility] 00:00:00 00:00:00 2021-10-26 2021-10-26 ambulatory STLMLC [facility] [id number] [facility] 2021-10-14 2021-10-14 ambulatory STLMLC [facility] [id number] [facility] 2021-10-12 2021-10-12 Outpatient BAILEE ZAMARRIPA [facility] SLE [id number] [facility] 00:00:00 23:59:00 HUMERA 2021-10-12 2021-10-12 Emergency ER [facility] Emergency [id number] SLE 09:11:00 16:00:00 YANIRA 2021-10-08 2021-10-08 ambulatory STLMLC [facility] [id number] [facility] 2021-10-05 2021-10-05 ambulatory STLMLC [facility] [id number] [facility] 2021-09-30 2021-09-30 ambulatory STLMLC [facility] [id number] [facility] 2021-08-11 2021-08-11 Outpatient STLMLC [facility] [id number] [facility] 2021-08-03 2021-08-03 Outpatient [facility] [id number] [facility] 00:00:00 23:59:00 [place] 2021-08-03 2021-08-03 Emergency ER [facility] Emergency [id number] SLE 11:01:00 11:01:00 2021-07-29 2021-07-29 Outpatient STLMLC [facility] [id number] [facility] 2021-07-23 2021-07-23 Outpatient EL SLE SLE [id number] [facility] 00:00:00 00:00:00 2021-07-23 2021-07-23 Outpatient STLMLC [facility] [id number] [facility] 2021-07-14 2021-07-14 Outpatient STLMLC STLC [id number] [facility] 2021-07-08 2021-07-08 Outpatient STLMLC STLC [id number] [facility] 2021-07-08 2021-07-08 Outpatient STLMLC STLC [id number] [facility] 2021-06-26 2021-06-26 Outpatient EL SABEROLA, SLSL SLSL [id number] [facility] 00:00:00 00:00:00 HUMERA 2021-06-26 2021-06-26 Outpatient SABEROLA, SLSL SLSL [id number] [facility] 00:00:00 00:00:00 HUMERA 2021-06-26 2021-06-26 Outpatient EL SLSL SLSL [id number] [facility] 00:00:00 00:00:00 2021-06-22 2021-06-22 Outpatient STLMLC STLC [id number] [facility] 2021-06-22 2021-06-22 Outpatient STLMLC [facility] [id number] [facility] 2021-06-22 2021-06-22 Outpatient STLMLC [facility] [id number] [facility] 2021-06-19 2021-06-19 [facility] [id number] [facility] 00:00:00 00:00:00 2021-06-19 2021-06-19 Outpatient STLMLC [facility] [id number] [facility] 2021-06-05 2021-06-[address] [facility] [id number] SLE 00:00:00 00:00:00 2021-05-25 2021-05-25 Emergency ER [facility] Emergency [id number] [facility] 15:33:00 15:33:00 2021-05-25 2021-05-25 Outpatient STLMLC [facility] [id number] [facility] 2021-05-22 2021-05-22 Outpatient STLMLC [facility] [id number] [facility] 2021-05-21 2021-05-21 Outpatient STLMLC [facility] [id number] [facility] 2021-04-09 2021-04-09 Outpatient [facility]LMLC [facility] [id number] [facility] 2021-01-21 2021-01-21 Outpatient STLMLC [facility] [id number] [facility] 2021-01-07 2021-01-07 Outpatient STLMLC [facility] [id number] [facility] 2020-12-30 2020-12-[address] [facility] [id number] [facility] 00:00:00 00:00:00 2020-12-26 2020-12-[address] [facility] [id number] [facility] 00:00:00 00:00:00 2020-12-18 2020-12-18 Outpatient [facility] [id number] SLE 00:00:00 00:00:00 2020-11-10 2020-11-10 Outpatient STLMLC STLC [id number] [facility] 2020-10-08 2020-10-08 Outpatient [facility] [id number] [facility] 2020-08-15 2020-08-15 Outpatient [facility] [id number] [facility] 2020-06-25 2020-06-25 [facility] [id number] [facility] 15:00:00 15:00:00 t [employer] [facility] Medicine Outpati ent Clinics 2020-06-25 2020-06-25 [facility] [id number] 15:00:00 15:00:00 t [employer] [facility] Medicine Outpati ent Clinics 2020-03-12 2020-03-12 [facility] [id number] 13:45:00 13:45:00 t [employer] [facility] Medicine Outpati ent Clinics 2020-02-12 2020-02-12 Outpatient Melodie [facility] [id number] 09:00:00 09:00:00 CIERRA christy [facility] 2019-12-26 2019-12-26 Outpatient Jony-Mbayo VFP VFP [id number] [facility] 07:15:00 07:15:00 _A_AH [id number] Family Practic e 2019-12-26 2019-12-26 Outpatient Jony-Mbayo VFP VFP [id number] [facility] 07:15:00 07:15:00 _A_AH [id number] Family Practic e 2019-12-10 2019-12-10 [facility] [id number] [facility] 13:30:00 13:30:00 t [employer] [facility] Medicine Outpati ent Clinics 2019-09-26 2019-09-26 [facility] [id number] 08:23:00 08:23:00 t [employer] Luke s - Drive [facility] Medicine Outpati ent Clinics 2019-09-20 2019-09-20 [facility] [id number] 16:58:00 16:58:[address] Luke [address] - Drive [facility] Medicine Outpati ent Clinics 2019-08-10 2019-08-10 [facility] [id number] 09:15:00 09:15:[address] Luke s - Drive [facility] Medicine Outpati ent Clinics 2019-07-11 2019-07-11 [facility] [id number] 16:55:00 16:55:00 t [place] [employer] s - Drive [facility] Medicine Outpati ent Clinics 2019-07-11 2019-07-11 [facility] [id number] 10:15:00 10:15:00 t [place] [employer] s - Drive [facility] Medicine Outpati ent Clinics 2019-07-06 2019-07-06 [facility] [id number] 16:41:00 16:41:00 t [place] s - Drive [facility] Medicine Outpati ent Clinics 2019-05-04 2019-05-04 [facility] [id number] 09:00:00 13:49:28 2019-05-04 2019-05-04 Inpatient E [facility] [id number] [facility] 12:18:00 10:21:00 2019-05-04 2019-05-04 [id number] 09:00:00 09:00:00 t; speedy MAE & zohreh of Allen HUSAIN Vascular Yvonne Crawford - Physic i [facility] 2019-04-20 2019-04-20 [facility] [id number] 09:30:00 09:30:00 t [place] s - Drive [facility] Medicine Outpati ent Clinics 2019-02-27 2019-02-27 [facility] [id number] 10:00:00 10:00:[address] Luke s - Drive [facility] Medicine l Medicine Outpati ent Clinics 2019-01-24 2019-01-24 [facility] [id number] 10:45:00 10:45:[address] Luke s - Drive [facility] l Medicine Outpati ent Clinics 2019-01-10 2019-01-10 [facility] [id number] 07:54:00 07:54:[address] Luke s - Drive [facility] l Medicine Outpati ent Clinics 2018-11-15 2018-11-15 [facility] [id number] 10:00:00 10:00:00 t [place] [employer] Luke s - Drive [facility] Medicine Outpati ent Clinics 2018-10-12 2018-10-12 [facility] [id number] 15:00:00 15:00:00 t Specialty/U Se[facility]ity kes - Specialty rology Memori a /Urology Clinic l Clinic Outpati ent Clinics 2018-05-08 2018-05-08 [facility] [id number] 08:20:00 08:20:00 t [place] [employer] Luke s - [facility] l Medicine Outpati ent Clinics 2018-05-01 2018-05-01 [facility] [id number] 08:46:00 08:46:00 t [place] [employer] Luke s - Drive [facility] Medicine Outpati ent Clinics 2018-04-27 2018-04-27 [facility] [id number] 09:00:00 09:00:00 t [place] [employer] Luke s - Drive [facility] Medicine Medicine Outpati ent Clinics 2018-04-20 2018-04-20 [facility] [id number] 13:36:00 13:36:[address] Luke s - Drive [facility] l Medicine Outpati ent Clinics 2018-04-12 2018-04-12 [facility] [id number] 16:11:00 16:11:00 t [place] [employer] Luke s - [facility] l Medicine Outpati ent Clinics 2018-04-10 2018-04-10 [facility] [id number] 14:45:00 14:45:00 t [facility] Medicine Outpati ent Clinics Results Test Description Test Time Test Comments Results Result Comments Source POCT-GLUCOSE METER 2022-02-18 06:28:54 Test Item Value Reference Range Interpretation Comme nts POC-GLUCOSE METER (BEAKER) 105 mg/dL 70-110 : TESTED AT [facility] [address] [facility] (test code = 1538) [facility] [address]: Pattern Maker/Techni elsie ID = [id number] for Surgers-Jeffrey Barber BASIC METABOLIC [id number] 05:12:43 Test Item Value Reference Range Interpretation Comments SODIUM (BEAKER) 138 meq/L 135-148 (test code = 381) POTASSIUM (BEAKER) 4.0 meq/L 3.5-5.5 (test code = 379) CHLORIDE (BEAKER) 95 meq/L 98-106 L (test code = 382) CO2 (BEAKER) (test 28 meq/L 20-31 code = 355) BLOOD UREA NITROGEN 28 mg/dL 10-26 H (BEAKER) (test code = 354) CREATININE (BEAKER) 5.42 mg/dL 0.50-1.20 H (test code = 358) GLUCOSE RANDOM 113 mg/dL 70-110 H (BEAKER) (test code = 652) CALCIUM (BEAKER) 7.3 mg/dL 8.5-10.5 L (test code = 697) EGFR (BEAKER) (test 11 mL/min/1.73 ESTIMA NOVA GFR IS code = 1092) sq m NOT ACCURATE CREATININE CLEARANCE IN PREDICTING GLOMERULAR FILTRATION RATE . ESTIMATED GFR I S NOT APPLICABLE FOR DIALYSIS PATIEN TS. Pattern Maker ID - [id number] 20:38:00 Test Item Value Reference Range Interpretation Comments POC-GLUCOSE METER 104 mg/dL 70-110 : TESTED A T [facility] [address] (BEAKER) (test code [facility], = 1538) [facility] 77 384: Pattern Maker/Techni elsie ID = [id number] for Henrique-Jeffrey Barrios U/S, ABDOMINAL, [id number] 14:11:00DR STRIBLINGAbdomen limited area? Add comment if clarification is needed.->Abdomen Fluid CheckReason for exam:->AscitesPROVIDENCE [facility]: [facility]OY FORTE : 1955 Sex: MFINAL REPORT Abdominal ultrasound, limited. History: Evaluate for ascites. Comparison: None available. Discussion: Transverse and longitudinal images of the 4 quadrants of the abdomen were obtained demonstrating a mild amount of free fluid throughout. IMPRESSION: Mild ascites. Signed: Scott Alcazar Verified Date/Time: 02/17/2022 14:11:58 Reading Location: [facility] Radiology Reading Room POCT-GLUCOSE [id number] 11:47:49 Test Item Value Reference Range Interpretation Comments POC-GLUCOSE METER 100 mg/dL 70-110 : TESTED A T [facility] [address] (BEAKER) (test code [facility], = 1538) [place] [address] 384: Pattern Maker/Techni elsie ID = [id number] for Lila Hill POCT-GLUCOSE [id number] 06:57:59 Test Item Value Reference Range Interpretation Comments POC-GLUCOSE METER 104 mg/dL 70-110 : [place] [address] (BEAKER) (test code [facility], = 1538) [place] [address] 384: Pattern Maker/Techni elsie ID = [id number] for IrishDishaElliott Karli jackson BASIC METABOLIC [id number] 04:42:18 Test Item Value Reference Range Interpretation Comments SODIUM (BEAKER) 139 meq/L 135-148 (test code = 381) POTASSIUM (BEAKER) 4.0 meq/L 3.5-5.5 (test code = 379) CHLORIDE (BEAKER) 97 meq/L 98-106 L (test code = 382) CO2 (BEAKER) (test 30 meq/L 20-31 code = 355) BLOOD UREA NITROGEN 23 mg/dL 10-26 (BEAKER) (test code = 354) CREATININE (BEAKER) 4.27 mg/dL 0.50-1.20 H (test code = 358) GLUCOSE RANDOM 127 mg/dL 70-110 H (BEAKER) (test code = 652) CALCIUM (BEAKER) 7.4 mg/dL 8.5-10.5 L (test code = 697) EGFR (BEAKER) (test 14 mL/min/1.73 ESTIMA NOVA GFR IS code = 1092) sq m NOT ACCURATE CREATININE CLEARANCE IN PREDICTING GLOMERULAR FILTRATION RATE . ESTIMATED GFR I S NOT APPLICABLE FOR DIALYSIS PATIEN TS. Pattern Maker ID - [id number] 01:28:53 Test Item Value Reference Range Interpretation Comments POC-GLUCOSE METER 111 mg/dL 70-110 H : TESTED A T [facility] [address] (BEAKER) (test code [facility], = 1538) [place] [address] 384: Pattern Maker/Techni elsie ID = [id number] for Candi Patel POCT-GLUCOSE [id number] 21:49:02 Test Item Value Reference Range Interpretation Comments POC-GLUCOSE METER 82 mg/dL 70-110 : TESTED A T [facility] [address] (BEAKER) (test code = [facility], 1538) [place] [address] 384: Pattern Maker/Techni elsie ID = [id number] for CamrynKarli Pacheco RAD, CHEST, 1 VIEW, NON [id number] 15:02:00DR Babita for exam:- >sobShould this be performed at the bedside?->Yes [facility] FORTE : 1955 Sex: MFINAL REPORT Chest, 1 view, 02/16/2022 2:15 PM. History: Shortness of breath. Comparison: 08/03/2021. Discussion: The cardiomediastinal silhouette and pulmonary vasculature are prominent. Hazy bilateral perihilar and bibasilar opacities are present with widening of the pleural margins, right greater than left. Median sternotomy wires, mediastinal surgical clips, and left chest wall AICD are again noted. The soft tissues and osseous structures are intact. IMPRESSION: CHF with bibasilar atelectasis and effusions, right greater than left. Signed: Scott Alcazar Verified Date/Time: 02/16/2022 15:02:28 Reading Location: [facility] HEMOGLOBIN [id number] 14:52:52 Test Item Value Reference Range Interpretation Comments HEMOGLOBIN A1C (CONRAD) (test code = 5.6 % 4.3-6.1 368) Pattern Maker ID - VATPOCT-GLUCOSE [id number] 12:57:55 Test Item Value Reference Range Interpretation Comments POC-GLUCOSE METER 114 mg/dL 70-110 H : TESTED A [facility] [address] ([facility]) (test [facility], = 1538) [place] [address] 384: Pattern Maker/Techni elsie ID = [id number] for Reinaldo Paul HEPATITIS B SURFACE [id number] 07:41:02 Test Item Value Reference Range Interpretation Comments HEPATITIS B SURFACE ANTIBODY 339.9 mIU/mL <8.0 H ([facility]) (test code = 647) Pattern Maker ID - BSPOCT-GLUCOSE [id number] 06:03:43 Test Item Value Reference Range Interpretation Comments POC-GLUCOSE METER 101 mg/dL 70-110 : TESTED A T [facility] [address] ([facility] [employer] [facility]) (test code [facility], = 1538) [place] [address] 384: Pattern Maker/Techni elsie ID = [id number] for Jossy Adorno HEPATITIS B SURFACE [id number] 05:11:46 Test Item Value Reference Range Interpretation Comments HEPATITIS B SURFACE ANTIGEN (2) Nonreactive Nonreactive (BEAKER) (test code = 2585) Pattern Maker ID - [id number] 02:52:45 Test Item Value Reference Range Interpretation Comments POC-GLUCOSE METER 95 mg/dL 70-110 : TESTED A T [facility] 14318 (BEAKER) (test code = [facility], 1538) [place] [address] 384: Pattern Maker/Techni elsie ID = [id number] for Jossy Adorno POCT-GLUCOSE [id number] 21:08:00 Test Item Value Reference Range Interpretation Comments POC-GLUCOSE METER 89 mg/dL 70-110 : TESTED A T [facility] 03572 (BEAKER) (test code = [facility], 1537) [place] [address] 384: Pattern Maker/Techni elsie ID = [id number] for Jossy Adorno COMPREHENSIVE METABOLIC [id number] 18:54:53 Test Item Value Reference Range Interpretation Comments TOTAL PROTEIN 6.9 gm/dL 6.0-8.5 (BEAKER) (test code = 770) ALBUMIN (BEAKER) 3.4 g/dL 3.5-5.0 L (test code = 1145) ALKALINE PHOSPHATASE 93 U/L 30-115 (BEAKER) (test code = 346) BILIRUBIN TOTAL 0.7 mg/dL 0.1-1.3 (BEAKER) (test code = 377) SODIUM (BEAKER) (test 141 meq/L 135-148 code = 381) POTASSIUM (BEAKER) 4.2 meq/L 3.5-5.5 (test code = 379) CHLORIDE (BEAKER) 93 meq/L 98-106 L (test code = 382) CO2 (BEAKER) (test 28 meq/L 20-31 code = 355) BLOOD UREA NITROGEN 48 mg/dL 10-26 H (BEAKER) (test code = 354) CREATININE (BEAKER) 6.26 mg/dL 0.50-1.20 H (test code = 358) GLUCOSE RANDOM 88 mg/dL 70-110 (BEAKER) (test code = 652) CALCIUM (BEAKER) 7.5 mg/dL 8.5-10.5 L (test code = 697) AST (SGOT) (BEAKER) 17 U/L 5-40 (test code = 353) ALT (SGPT) (BEAKER) 16 U/L 6-50 (test code = 347) EGFR (BEAKER) (test 9 mL/min/1.73 ESTIMAT ED GFR IS code = 1092) sq m NOT ACCURATE CREATININE CLEARANCE IN PREDICTING GLOMERULAR FILTRATION RATE . ESTIMATED GFR I S NOT APPLICABLE FOR DIALYSIS PATIEN TS. Pattern Maker ID - [id number] W/PLT COUNT & AUTO [id number] 18:13:18 Test Item Value Reference Range Interpretation Comments WHITE BLOOD CELL COUNT (BEAKER) 9.0 K/ L 4.0-10.0 (test code = 775) RED BLOOD CELL COUNT (BEAKER) 3.49 M/ L 4.20-5.80 L (test code = 761) HEMOGLOBIN (BEAKER) (test code = 10.3 GM/DL 13.0-16.8 L 410) HEMATOCRIT (BEAKER) (test code = 34.4 % 36.0-50.0 L 411) MEAN CORPUSCULAR VOLUME (BEAKER) 98.6 fL 82.0-99.0 (test code = 753) MEAN CORPUSCULAR HEMOGLOBIN 29.5 pg 27.0-33.0 (BEAKER) (test code = 751) MEAN CORPUSCULAR HEMOGLOBIN CONC 29.9 GM/DL 32.0-36.0 L (BEAKER) (test code = 752) RED CELL DISTRIBUTION WIDTH 18.6 % 12.0-15.0 H (BEAKER) (test code = 412) PLATELET COUNT (BEAKER) (test 201 K/CU MM 150-430 code = 756) MEAN PLATELET VOLUME (BEAKER) 10.4 fL 6.0-11.5 (test code = 754) NUCLEATED RED BLOOD [...] (test code = 437) NEUTROPHILS ABSOLUTE COUNT 7.79 K/ L 1.80-8.00 (BEAKER) (test code = 670) LYMPHOCYTES ABSOLUTE COUNT 0.28 K/ L 1.48-4.50 L (BEAKER) (test code = 414) MONOCYTES ABSOLUTE COUNT (BEAKER) 0.77 K/ L 0.00-1.30 (test code = 415) EOSINOPHILS ABSOLUTE COUNT 0.04 K/ L 0.00-0.50 (BEAKER) (test code = 416) BASOPHILS ABSOLUTE COUNT (BEAKER) 0.01 K/ L 0.00-0.20 (test code = 417) IMMATURE GRANULOCYTES-RELATIVE 1 % 0-0 H PERCENT (BEAKER) (test code = 2801) POCT-GLUCOSE [id number] 17:56:32 Test Item Value Reference Range Interpretation Comments POC-GLUCOSE METER 90 mg/dL 70-110 : TESTED A T [facility] 29334 (BEAKER) (test code = [facility], 1538) [place] [address] 384: Pattern Maker/Techni elsie ID = [id number] for [place], [place] POCT-GLUCOSE [id number] 17:20:59 Test Item Value Reference Range Interpretation Comments POC-GLUCOSE METER 54 mg/dL 70-110 L : TESTED A T [facility] 28935 (BEAKER) (test code = [facility], 1538) [place] [address] 384: Pattern Maker/Techni elsie ID = [id number] for N [place], [place] BODY FLUID CULTURE + GRAM [id number] 10:11:18 Test Item Value Reference Range Interpretation Comments CULTURE (BEAKER) (test code = 1095) No growth U/S, [id number] 08:12:00DR STRIBLINGLabs to be ordered:->Body Fluid Culture (w/Gram Stain, C\T\S)Labs to be ordered:->Cell CountReason for exam:->abdominal distension [facility] : 1955 Sex: MFINAL REPORT Ultrasound guided paracentesis. Clinical History: Ascites. Sedation: None. County Ordinary: Char Van PA-C Sealing And Canceling Machine Operator: None. Estimated Blood Loss: < 1 cc. [...] was achieved with 2% lidocaine, a 5 Canadian one-step catheter was advanced into the peritoneal cavity under ultrasoundguidance. After completion of drainage, the catheter was removed. There was no evidence of complication. Impression:Successful ultrasound guided paracentesis. Signed: Raymond Coffman MDReport Verified Date/Time: 10/13/2021 08:12:56 Reading Location: [facility] P0[facility] Ul[facility]ound Reading Room BODY FLUID CELL COUNT [...] (BEAKER) (test code = 2873) COMPREHENSIVE METABOLIC [id number] 10:23:58 Test Item Value Reference Range Interpretation [...] S NOT APPLICABLE FOR DIALYSIS PATIEN TS. Pattern Maker ID - JORDAN MB-TYPE NATRIURETIC FACTOR (BNP)2021-10-12 10:12:10 Test Item Value Reference Range Interpretation Comments B-TYPE NATRIURETIC PEPTIDE 4245 pg/mL 0-100 H (BEAKER) (test code = 700) Pattern Maker ID - JORDAN [id number] 10:01:45 Test Item Value Reference Range Interpretation [...] = 2801) BODY FLUID CULTURE + GRAM [id number] 14:14:13 Test Item Value Reference Range Interpretation Comments CULTURE (BEAKER) (test code No growth = 1095) GRAM STAIN RESULT (BEAKER) <1+ WBCs (test code = 1123) GRAM STAIN RESULT (BEAKER) No organisms seen (test code = 43821) POCT-GLUCOSE [id number] 12:15:12 Test Item Value Reference Range Interpretation Comments POC-GLUCOSE METER 165 mg/dL 70-110 H : TESTED A T [facility] 6720 (BEAKER) (test code = [facility] Melodie [facility], 1538) [address]: Pattern Maker/Techni elsie ID = [id number] for ROBYN YANCEY BASIC METABOLIC [id number] 08:52:50 Test Item Value Reference Range Interpretation [...] S NOT APPLICABLE FOR DIALYSIS PATIEN TS. Pattern Maker ID - [id number] 08:49:00 Test Item Value Reference Range Interpretation Comments MAGNESIUM (BEAKER) (test code = 2.1 mg/dL 1.6-2.6 627) Pattern Maker ID - ADMINPOCT-GLUCOSE [id number] 07:57:04 Test Item Value Reference Range Interpretation Comments POC-GLUCOSE METER 178 mg/dL 70-110 H : TESTED A T [facility] 6720 (BEAKER) (test code = [facility] [place] [facility], 1538) [address]: Pattern Maker/Techni elsie ID = [id number] for AR GUETA, ROBYN CBC W/PLT COUNT & AUTO [id number] 06:39:06 Test Item Value Reference Range Interpretation [...] PERCENT (BEAKER) (test code = 2801) POCT-GLUCOSE [id number] 22:12:47 Test Item Value Reference Range Interpretation Comments POC-GLUCOSE METER 157 mg/dL 70-110 H : [facility] (BEAKER) (test code = [facility] [place] [facility], 1538) [address]: Pattern Maker/Techni elsie ID = [id number] for Pawel Reynolds POCT-GLUCOSE [id number] 17:45:52 Test Item Value Reference Range Interpretation Comments POC-GLUCOSE METER 159 mg/dL 70-110 H : TESTED A T [facility] 6720 (BEAKER) (test code = [facility] [place] [facility], 1538) [address]: Pattern Maker/Techni elsie ID = [id number] for Erma Kins[place] [id number] 13:58:31Medical Cytology Report Case: [id number] Authorizing Provider: Mauricio Perry, Collected: 08/03/2021 02:35 PM Ordering Location: [facility] Emergency Department Received: 08/04/2021 09:29 AM Pathologist: Genevieve Mendez MD Specimen: Perit cabezas Fluid PERITONEAL FLUID (CYTOSPINS): - NEGATIVE FOR MALIGNANCY Signing Pathologist Direct Phone Line: [phone] signed by Genevieve Mendez MD on 08/04/2021 at 1:58 [id number], history of cirrhosis and ESRD.PERITONEAL FLUIDReceived 1600 mls brown fluid; prepared 4 cytospins. Performed. [facility], Department of Pathology, [address] [place] [address], [facility], Department of [facility]ology, [address] [place] [address], [facility], Department of Pathology, [address] [place] [address], RJWT-GLUCOSE [id number] 12:51:45 Test Item Value Reference Range Interpretation Comments POC-GLUCOSE METER 110 mg/dL 70-110 : TESTED A T [facility] 6720 (BEAKER) (test code = [place], 1538) [address]: Pattern Maker/Techni elsie ID = [id number] for Erma Kingston LACTATE DEHYDROGENASE (LDH), BODY [id number] 09:48:21 Test Item Value Reference Range Interpretation Comments LACTATE DEHYDROGENASE FLUID (BEAKER) 141 U/L (test code = 634) Absence of reference range indicates that normals have not been defined.Assay performance has not been validated for this type of specimen.Pattern Maker ID - DSENSONPROTEIN, BODY [id number] 09:44:56 Test Item Value Reference Range Interpretation Comments PROTEIN FLUID (BEAKER) (test code = 3.9 g/dL 579) Absence of reference range indicates that normals have not been defined.Assay performance has not been validated for this type of specimen.Pattern Maker ID - DSENSONBASIC METABOLIC [id number] 06:39:38 Test Item Value Reference Range Interpretation [...] S NOT APPLICABLE FOR DIALYSIS PATIEN TS. Pattern Maker ID - JORDAN [id number] 06:39:14 Test Item Value Reference Range Interpretation Comments MAGNESIUM (BEAKER) (test code = 2.0 mg/dL 1.6-2.6 627) Pattern Maker ID - JORDAN MCBC W/PLT COUNT & AUTO [id number] 06:11:35 Test Item Value Reference Range Interpretation [...] PERCENT (BEAKER) (test code = 2801) POCT-GLUCOSE [id number] 22:05:32 Test Item Value Reference Range Interpretation Comments POC-GLUCOSE METER 137 mg/dL 70-110 H : TESTED A T [facility] 6720 (BEAKER) (test code = [place], 1538) [address]: Pattern Maker/Techni elsie ID = [id number] for GINA SALAZAR HEPATITIS B SURFACE [id number] 21:43:34 Test Item Value Reference Range Interpretation Comments HEPATITIS B SURFACE ANTIGEN (2) Nonreactive Nonreactive (BEAKER) (test code = 2585) Specimen is considered negative for HBsAg.BODY FLUID CELL COUNT WITH [id number] 18:09:33 Test Item Value Reference Range Interpretation [...] FLUID (BEAKER) (test code = 2873) POCT-GLUCOSE [id number] 17:22:05 Test Item Value Reference Range Interpretation Comments POC-GLUCOSE METER 117 mg/dL 70-110 H : [facility] (BEAKER) (test code = [place], 1538) [address]: Pattern Maker/Techni elsie ID = [id number] for Erma Kingston U/S, [id number] 17:04:00DR STRIBLINGLabs to be ordered:->Body Fluid Culture (w/Gram Stain, C\T\S)Labs to be ordered:->CytologyLabs to be ordered:->Glucose+LDH+ProteinLabs to be ordered:->Cell CountReason for exam:->CHEST PAINReason for exam:->ED[facility] : 1955 Sex: MFINAL REPORT Ultrasound guided paracentesis Clinical History: Ascites. Sedation: None. County Ordinary: Klaudia Garcia PA-C Supervising Physician: Brady Self MD Sealing And Canceling Machine Operator: None. Estimated Blood Loss: < 1 mL. [...] anesthesia was achieved with lidocaine, a 5 Canadian one-step catheter was advanced intothe peritoneal cavity under ultrasound guidance. After completion of drainage, the catheter was removed. There was no evidence of complication. Impression:Successful ultrasound guided paracentesis. Signed: Brady Selfeport Verified Date/Time: 08/03/2021 17:04:47 Reading Location: [facility] B1 P006J Ultrasound Reading Room SARS-COV2/RT-PCR ([facility])2021-08-03 14:42:37 Test Item Value Reference Range Interpretation Comments SARS-COV2/RT-PCR Negative Negative The SARS-Co V-2 target (test code = nucleic acids a re not 2475398) detected in thi s specimen. Negative result [...] revoked sooner. Fact Sheet for Healthcare Providers: https://www.[employer].com/Documents/Xpert%20Xpress%20SARS%20CoV-2/Fact%20Sheets/302-3802%20SARS-COV -2%20HEALTHCARE%20PROVIDERS%20FACT%20SHEET.pdf Fact Sheet for Healthcare Patients: https://www.[employer]/Documents/Xpert %20Xpress%20SARS%20CoV-2/Fact%20Sheets/302-3801%05DMSK-SHA-6%20PATIENT%20FACT%20 SHEET.pdfB-TYPE NATRIURETIC FACTOR (BNP)2021-08-03 12:54:07 Test Item Value Reference Range Interpretation Comments B-TYPE NATRIURETIC PEPTIDE 58247 pg/mL 0-100 H (BEAKER) (test code = 700) Pattern Maker ID - JOHAN FOperator ID - JOHAN FHIGH SENSITIVITY TROPONIN I 2021-08-03 12:37:33 Test Item Value Reference Range Interpretation Comments HIGH SENSITIVITY 43 pg/ml See_Comment H [Automated message] TROPONIN I (test code = The system which 2549876) generated this result transmitted ref erence range: <=35. Th e reference range was not used to int erpret this result as normal/abnormal . Pattern Maker ID - JOHAN FThe MANAGER POOL STAT High Sensitivity Troponin-I results should be used in conjunction with other diagnostic information such as ECG, clinical observations and information, and patient symptoms to aid in the diagnosis of AR.COMPREHENSIVE METABOLIC [id number] 12:32:18 Test Item Value Reference Range Interpretation [...] S NOT APPLICABLE FOR DIALYSIS PATIEN TS. Pattern Maker ID - JOHAN [id number] 12:30:52 Test Item Value Reference Range Interpretation Comments PHOSPHORUS (BEAKER) (test code = 2.6 mg/dL 2.3-4.7 604) Pattern Maker ID - JOHAN [id number] 12:30:51 Test Item Value Reference Range Interpretation Comments MAGNESIUM (BEAKER) (test code = 2.1 mg/dL 1.6-2.6 627) Pattern Maker ID Disha JOHAN FPROTHROMBIN TIME/[id number] 12:14:02 Test Item Value Reference Range Interpretation Comments PROTIME (BEAKER) 14.5 seconds 11.9-14.2 H (test code = 759) INR (BEAKER) (test 1.15 See_Comment [Automat ed message] code = 370) The system Youneeq generated this result transmitted ref erence range: [...] = 2801) RAD, CHEST, 1 VIEW, NON [id number] 11:47:00DR STRIBLINGReason for exam:- >CHEST PAINReason for exam:->EDEMAShould this be performed at the bedside?->YesCH[facility] : 1955 Sex: [...] Sr Verified Date/Time: 08/03/2021 11:47:09 Reading Location: [facility] Radiology Reading Room ALPHA FETOPROTEIN (AFP), TUMOR [id number] 13:27:00 Test Item Value Reference Range Interpretation Comments ALPHA-FETOPROTEIN (BEAKER) (test code < ng/mL <10.0 = 1094) Pattern Maker ID - PATRICIA [facility] METABOLIC [id number] 13:06:00 Test Item Value Reference Range Interpretation [...] S NOT APPLICABLE FOR DIALYSIS PATIEN TS. Pattern Maker ID - PATRICIA CHEPATIC FUNCTION [id number] 13:05:00 Test Item Value Reference Range Interpretation [...] (test code = 9 U/L 6-55 347) Pattern Maker ID - PATRICIA CPROTHROMBIN TIME/[id number] 12:40:00 Test Item Value Reference Range Interpretation Comments PROTIME (BEAKER) 13.9 seconds 11.9-14.2 (test code = 759) INR (BEAKER) (test 1.09 See_Comment [Automat ed message] code = 370) The system Youneeq generated this result transmitted ref erence range: [...] = 2801) BODY FLUID CULTURE + GRAM [id number] 13:49:00 Test Item Value Reference Range Interpretation Comments CULTURE (BEAKER) (test No growth code = 1095) GRAM STAIN RESULT <1+ White blood cells (BEAKER) (test code = seen 1123) GRAM STAIN RESULT No organisms seen (BEAKER) (test code = 476623) [id number] 18:55:00Medical Cytology Report Case: [id number] Authorizing Provider: Wicho Garcia MD Collected: 06/03/2021 05:57 PM Ordering Location: [place] [address] Dialysis Received: 06/04/2021 10:06 AM Nephrology Service Pathologist: Silvestre Le MD Specimen: Pleural, Right PLEURAL, RIGHT, FLUID (CYTOSPINS): - NEGATIVE FOR MALIGNANCY Signing Pathologist Direct Phone Line: [phone] signed by Silvestre Le MD on 06/05/2021 at 6:55 [id number] pleural effusion; PMH of HTN, HLD, CAD s/p ACB at [facility] on 05/18/2019, HFrEF 2/2 ICM with EF 25% s/p ICD, ESRD on iHD, cirrhosis, who presents with dyspnea, worsening BLE edema and genital painPLEURAL, RIGHT, FLUIDReceived 1000 ml bloody fluid; prepared 4 cytospinsPerformed. [facility] of [facility]ology, [address] [place] [address], [facility], Department of Pathology, [address] [place] [address], [facility], Department of Pathology, [address] [place] [address], AAIU-GLUCOSE [id number] 13:22:00 Test Item Value Reference Range Interpretation Comments POC-GLUCOSE METER 138 mg/dL 70-110 H : TESTED A Niranjan [facility] 6720 (CONRAD) (test code = [place], 1538) [address]: Pattern Maker/Techni elsie ID = [id number] for EDE GASPAR U/S, [id number] 13:01:00DR STRIBLINGLaterality?->RightReason for exam:->moderate to large pleural effusionLabs to be Ordered:->Body Fluid Culture (w/Gram Stain, C\T\S)Labs to be Ordered:->CytologyLabs to be Ordered :->Cell CountLabs to be Ordered:->Glucose+LDH+Protein [facility] : 1955 Sex: MFINAL REPORT Exam: Ultrasound guided thoracentesis Clinical History: Right-sided Pleural Effusion County Ordinary: Michelle Wilson PA-C Supervising Physician: Jose Guadalupe [...] MDReport Verified Date/Time: 06/05/2021 13:01:06 Reading Location: [address] Ultrasound Reading Room POCT-GLUCOSE [id number] 08:36:00 Test Item Value Reference Range Interpretation Comments POC-GLUCOSE METER 219 mg/dL 70-110 H : TESTED A T [facility] 6720 (BEAKER) (test code = [place], 1538) [address]: Pattern Maker/Techni elsie ID = [id number] for EDE GASPAR BASIC METABOLIC [id number] 04:46:00 Test Item Value Reference Range Interpretation [...] S NOT APPLICABLE FOR DIALYSIS PATIEN TS. Pattern Maker ID - PIROSS [id number] 04:45:00 Test Item Value Reference Range Interpretation Comments MAGNESIUM (BEAKER) (test code = 2.1 mg/dL 1.6-2.6 627) Pattern Maker ID - JEVON [id number] 04:45:00 Test Item Value Reference Range Interpretation Comments PHOSPHORUS (BEAKER) (test code = 2.9 mg/dL 2.3-4.7 604) Pattern Maker ID - JEVON LCBC W/PLT COUNT & AUTO [id number] 04:21:00 Test Item Value Reference Range Interpretation [...] PERCENT (BEAKER) (test code = 2801) POCT-GLUCOSE [id number] 22:21:00 Test Item Value Reference Range Interpretation Comments POC-GLUCOSE METER 242 mg/dL 70-110 H : TESTED A T [facility] 6720 (BEAKER) (test code = [facility], 1538) [address]: Pattern Maker/Techni elsie ID = [id number] for Pee Solorio POCT-GLUCOSE [id number] 12:26:00 Test Item Value Reference Range Interpretation Comments POC-GLUCOSE METER 181 mg/dL 70-110 H : TESTED A T [facility] 6720 (BEAKER) (test code = [facility], 1538) [address]: Pattern Maker/Techni elsie ID = [id number] for IB RAHIM, [place] LACTATE DEHYDROGENASE (LDH), BODY [id number] 10:04:00 Test Item Value Reference Range Interpretation Comments LACTATE DEHYDROGENASE FLUID (BEAKER) 117 U/L (test code = 634) Absence of reference range indicates that normals have not been defined.Assay performance has not been validated for this type of specimen.Pattern Maker ID - [id number], BODY [id number] 10:01:00 Test Item Value Reference Range Interpretation Comments PROTEIN FLUID (BEAKER) (test code = 3.2 g/dL 579) Absence of reference range indicates that normals have not been defined.Assay performance has not been validated for this type of specimen.Pattern Maker ID - [id number]-YCSSORP [id number] 08:30:00 Test Item Value Reference Range Interpretation Comments POC-GLUCOSE METER 144 mg/dL 70-110 H : TESTED A T [facility] 6720 (BEAKER) (test code = [facility], 1538) [address]: Pattern Maker/Techni elsie ID = [id number] for IB RAHIM, [place] BASIC METABOLIC [id number] 05:13:00 Test Item Value Reference Range Interpretation [...] S NOT APPLICABLE FOR DIALYSIS PATIEN TS. Pattern Maker ID - [id number] 05:10:00 Test Item Value Reference Range Interpretation Comments MAGNESIUM (BEAKER) (test code = 2.1 mg/dL 1.6-2.6 627) Pattern Maker ID - [id number] 05:10:00 Test Item Value Reference Range Interpretation Comments PHOSPHORUS (BEAKER) (test code = 5.3 mg/dL 2.3-4.7 H 604) Pattern Maker ID - BSCBC W/PLT COUNT & AUTO [id number] 04:43:00 Test Item Value Reference Range Interpretation [...] = 2801) BODY FLUID CELL COUNT WITH [id number] 21:44:00 Test Item Value Reference Range Interpretation Comments APPEARANCE FLUID Slightly Bloody Clear A (BEAKER) (test code = 510) COLOR FLUID [place] Colorless, Straw A (BEAKER) (test code = 511) RBC FLUID (BEAKER) 48821 /cu mm See_Comment H [Automat ed (test code = 513) message] T he system which generated this result transmit nova reference range : <=1. The refere nce range was not u sed to interpret th is result as normal/abnormal . ADJUSTED WBC FLUID 85 /cu mm See_Comment H [Automat ed (BEAKER) (test code message] The = 9511) system which generated this result transmit nova [...] FLUID (BEAKER) (test code = 2873) POCT-GLUCOSE [id number] 21:31:00 Test Item Value Reference Range Interpretation Comments POC-GLUCOSE METER 181 mg/dL 70-110 H : TESTED A T [facility] 6720 (BEAKER) (test code = [facility], 1538) [address]: Pattern Maker/Techni elsie ID = [id number] for Gi sset (pca2), Conn POCT-GLUCOSE [id number] 18:30:00 Test Item Value Reference Range Interpretation Comments POC-GLUCOSE METER 167 mg/dL 70-110 H : TESTED A T [facility] 6720 (BEAKER) (test code = [facility], 1538) [address]: Pattern Maker/Techni elsie ID = [id number] for CA STRO, LUCY RAD, CHEST, 1 VIEW, NON [id number] 18:20:00DR Babita for exam:- >post right sided thoracentesisShould this be performed at the [facility] e?->YesPR[facility]Name: [facility] FORTE : 1955 Sex: MFINAL REPORT [...] Russo Verified Date/Time: 06/03/2021 18:20:00 Reading Location: [address] Consult Reading Room POCT-GLUCOSE METER 2021-06-03 11:45:00 Test Item Value Reference Range Interpretation Comments POC-GLUCOSE METER 159 mg/dL 70-110 H : TESTED A T [facility] 6720 (BEAKER) (test code = [facility], 1538) [address]: Pattern Maker/Techni elsie ID = [id number] for Junie Gutiérrez POCT-GLUCOSE [id number] 09:28:00 Test Item Value Reference Range Interpretation Comments POC-GLUCOSE METER 163 mg/dL 70-110 H : TESTED A T [facility] 6720 (BEAKER) (test code = [facility], 1538) [address]: Pattern Maker/Techni elsie ID = [id number] for Jennyfer Gutiérrezia CBC W/PLT COUNT & AUTO [id number] 05:53:00 Test Item Value Reference Range Interpretation [...] (BEAKER) (test code = 2801) BASIC METABOLIC [id number] 05:41:00 Test Item Value Reference Range Interpretation [...] 697) EGFR (BEAKER) (test 11 mL/min/1.73 ESTIMA NVOA GFR IS code = 1092) sq m NOT ACCURATE CREATININE CLEARANCE IN PREDICTING GLOMERULAR FILTRATION RATE . ESTIMATED GFR I S NOT APPLICABLE FOR DIALYSIS PATIEN TS. Pattern Maker ID - JORDAN [id number] 05:22:00 Test Item Value Reference Range Interpretation Comments MAGNESIUM (BEAKER) (test code = 2.0 mg/dL 1.6-2.6 627) Pattern Maker ID - JORDAN [id number] 05:22:00 Test Item Value Reference Range Interpretation Comments PHOSPHORUS (BEAKER) (test code = 4.8 mg/dL 2.3-4.7 H 604) Pattern Maker ID - JORDAN MSARS-COV2/RT-PCR ([facility])2021-06-03 03:56:00 Test Item Value Reference Range Interpretation Comments SARS-COV2/RT-PCR (test code = Negative Negative [id number]) Negative result for this test determines that [...] the [place] SARS-CoV-2 assay.Fact Sheet for Healthcare Providers:https://www.[employer]/tracy/RT SARS-CoV-2 HCP Fact Sheet 51- 801571.pdfFact Sheet for Healthcare Patients:https://www.[employer]/tracy/RT SARS-CoV-2 Patient Fact Sheet EN [id number].pdfPROTHROMBIN TIME/[id number] 01:17:00 Test Item Value Reference Range Interpretation Comments PROTIME (CONRAD) 14.3 seconds 11.9-14.2 H (test code = 759) INR (CONRAD) (test 1.13 See_Comment [Automat ed message] code = 370) The system [employer] generated this result transmitted ref erence range: <=5.90. The reference range was not used to int erpret this result as normal/abnormal . RECOMMENDED COUMADIN/WARFARIN INR THERAPY RANGESSTANDARD DOSE: 2.0 - 3.0 Includes: PROPHYLAXIS forvenous thrombosis, systemic embolization; TREATMENT for venous thrombosis and/or pulmonary embolus.HIGH RISK: Target INR is 2.5-3.5 for patients with mechanical heart valves.POCT-GLUCOSE [id number] 21:22:00 Test Item Value Reference Range Interpretation Comments POC-GLUCOSE METER 150 mg/dL 70-110 H : TESTED A T [facility] 6720 (BEAKER) (test code = [facility], 1538) [address]: Pattern Maker/Techni elsie ID = [id number] for Hodan Mayo POCT-GLUCOSE [id number] 17:33:00 Test Item Value Reference Range Interpretation Comments POC-GLUCOSE METER 183 mg/dL 70-110 H : Notified RN/MD: (CONRAD) (test code = TESTED AT [facility] 67 1538) [facility], [address]: Pattern Maker/Techni elsie ID = [id number] for Alexandrea Hernandez POCT-GLUCOSE [id number] 08:46:00 Test Item Value Reference Range Interpretation Comments POC-GLUCOSE METER 143 mg/dL 70-110 H : Notified RN/MD: (CONRAD) (test code = TESTED AT [facility] 67 1538) [facility], [address]: Pattern Maker/Techni elsie ID = [id number] for Alexandrea Hernandez BASIC METABOLIC [id number] 07:12:00 Test Item Value Reference Range Interpretation [...] S NOT APPLICABLE FOR DIALYSIS PATIEN TS. Pattern Maker ID - JORDAN [id number] 07:04:00 Test Item Value Reference Range Interpretation Comments MAGNESIUM (BEAKER) (test code = 2.1 mg/dL 1.6-2.6 627) Pattern Maker ID - JORDAN [id number] 07:04:00 Test Item Value Reference Range Interpretation Comments PHOSPHORUS (BEAKER) (test code = 5.7 mg/dL 2.3-4.7 H 604) Pattern Maker ID - JORDAN MCBC W/PLT COUNT & AUTO [id number] 06:25:00 Test Item Value Reference Range Interpretation [...] PERCENT (BEAKER) (test code = 2801) POCT-GLUCOSE [id number] 21:18:00 Test Item Value Reference Range Interpretation Comments POC-GLUCOSE METER 117 mg/dL 70-110 H : TESTED A T [place] [address] ([facility]) (test code = [facility], 1538) [address]: Pattern Maker/Techni elsie ID = [id number] for Hodan Mayo POCT-GLUCOSE [id number] 18:18:00 Test Item Value Reference Range Interpretation Comments POC-GLUCOSE METER 123 mg/dL 70-110 H : Notified RN/MD: (CONRAD) (test code = TESTED AT [place] [address] 153) [facility], [address]: Pattern Maker/Techni elsie ID = [id number] for Co christian, Alexandrea POCT-GLUCOSE [id number] 12:40:00 Test Item Value Reference Range Interpretation Comments POC-GLUCOSE METER 169 mg/dL 70-110 H : Notified RN/MD: (CONRAD) (test code = TESTED AT [place] [address]) [facility], [address]: Pattern Maker/Techni elsie ID = [id number] for Co christian, Alexandrea POCT-GLUCOSE [id number] 08:51:00 Test Item Value Reference Range Interpretation Comments POC-GLUCOSE METER 119 mg/dL 70-110 H : Notified RN/MD: (CONRAD) (test code = TESTED AT [place] [address]) [facility], [address]: Pattern Maker/Techni elsie ID = [id number] for Co christian, Alexandrea BASIC METABOLIC [id number] 06:37:00 Test Item Value Reference Range Interpretation [...] S NOT APPLICABLE FOR DIALYSIS PATIEN TS. Pattern Maker ID - MAGEN [id number] 06:34:00 Test Item Value Reference Range Interpretation Comments MAGNESIUM (BEAKER) (test code = 2.1 mg/dL 1.6-2.6 627) Pattern Maker ID - MAGEN [id number] 06:34:00 Test Item Value Reference Range Interpretation Comments PHOSPHORUS (BEAKER) (test code = 5.1 mg/dL 2.3-4.7 H 604) Pattern Maker ID - MAGEN WCBC W/PLT COUNT & AUTO [id number] 05:46:00 Test Item Value Reference Range Interpretation [...] PERCENT (BEAKER) (test code = 2801) POCT-GLUCOSE [id number] 21:36:00 Test Item Value Reference Range Interpretation Comments POC-GLUCOSE METER 160 mg/dL 70-110 H : TESTED A T [facility] 6720 (BEAKER) (test code = [facility], 153) [address]: Pattern Maker/Techni elsie ID = [id number] for LI WILMAN RAMIREZ POCT-GLUCOSE [id number] 17:16:00 Test Item Value Reference Range Interpretation Comments POC-GLUCOSE METER 151 mg/dL 70-110 H : TESTED A T [facility] 6720 (BEAKER) (test code = [facility], 153) [address]: Pattern Maker/Techni elsie ID = [id number] for CA STRO, LUCY POCT-GLUCOSE [id number] 12:22:00 Test Item Value Reference Range Interpretation Comments POC-GLUCOSE METER 153 mg/dL 70-110 H : TESTED A T [facility] 6720 (BEAKER) (test code = [place], 1538) [address]: Pattern Maker/Techni elsie ID = [id number] for LUCY GIRON BASIC METABOLIC [id number] 04:46:00 Test Item Value Reference Range Interpretation [...] S NOT APPLICABLE FOR DIALYSIS PATIEN TS. Pattern Maker ID Disha US [id number] 04:25:00 Test Item Value Reference Range Interpretation Comments MAGNESIUM (BEAKER) (test code = 2.0 mg/dL 1.6-2.6 627) Pattern Maker ID Disha US [id number] 04:25:00 Test Item Value Reference Range Interpretation Comments PHOSPHORUS (BEAKER) (test code = 4.3 mg/dL 2.3-4.7 604) Pattern Maker ID Disha US WCBC W/PLT COUNT & AUTO [id number] 03:56:00 Test Item Value Reference Range Interpretation [...] PERCENT (BEAKER) (test code = 2801) POCT-GLUCOSE [id number] 21:39:00 Test Item Value Reference Range Interpretation Comments POC-GLUCOSE METER 183 mg/dL 70-110 H : TESTED A T [facility] 6720 (BEAKER) (test code = [place], 1538) [address]: Pattern Maker/Techni elsie ID = [id number] for WILMAN BIRD RA POCT-GLUCOSE [id number] 17:38:00 Test Item Value Reference Range Interpretation Comments POC-GLUCOSE METER 145 mg/dL 70-110 H : TESTED A T [facility] 6720 (BEAKER) (test code = [facility], 1538) [address]: Pattern Maker/Techni elsie ID = [id number] for IB RAELBERTM, SERKALEM POCT-GLUCOSE [id number] 12:58:00 Test Item Value Reference Range Interpretation Comments POC-GLUCOSE METER 122 mg/dL 70-110 H : TESTED A T [facility] 6720 (BEAKER) (test code = [facility], 1538) [address]: Pattern Maker/Techni elsie ID = [id number] for IB RAELBERTM, SERKALEM BASIC METABOLIC [id number] 06:52:00 Test Item Value Reference Range Interpretation [...] S NOT APPLICABLE FOR DIALYSIS PATIEN TS. Pattern Maker ID - JORDAN [id number] 06:36:00 Test Item Value Reference Range Interpretation Comments MAGNESIUM (BEAKER) (test code = 2.1 mg/dL 1.6-2.6 627) Pattern Maker ID - JORDAN [id number] 06:36:00 Test Item Value Reference Range Interpretation Comments PHOSPHORUS (BEAKER) (test code = 5.0 mg/dL 2.3-4.7 H 604) Pattern Maker BERNIE ORTEGA MCBC W/PLT COUNT & AUTO [id number] 06:13:00 Test Item Value Reference Range Interpretation [...] PERCENT (BEAKER) (test code = 2801) POCT-GLUCOSE [id number] 21:35:00 Test Item Value Reference Range Interpretation Comments POC-GLUCOSE METER 132 mg/dL 70-110 H : TESTED A T [facility] 6720 (BEAKER) (test code = [facility], 1538) [address]: Pattern Maker/Techni elsie ID = [id number] for WILMAN BIRD RA POCT-GLUCOSE [id number] 17:32:00 Test Item Value Reference Range Interpretation Comments POC-GLUCOSE METER 140 mg/dL 70-110 H : TESTED A T [facility] 6720 (BEAKER) (test code = [facility], 1538) [address]: Pattern Maker/Techni elsie ID = [id number] for IB RAHIM, SERKALEM POCT-GLUCOSE [id number] 11:19:00 Test Item Value Reference Range Interpretation Comments POC-GLUCOSE METER 159 mg/dL 70-110 H : TESTED A T [facility] 6720 (BEAKER) (test code = [facility], 1538) [address]: Pattern Maker/Techni elsie ID = [id number] for IB RAHIM, SERKALEM BASIC METABOLIC [id number] 08:10:00 Test Item Value Reference Range Interpretation [...] S NOT APPLICABLE FOR DIALYSIS PATIEN TS. Pattern Maker ID - DAREK [id number] 08:05:00 Test Item Value Reference Range Interpretation Comments MAGNESIUM (BEAKER) (test code = 1.9 mg/dL 1.6-2.6 627) Pattern Maker ID - DAREK [id number] 08:05:00 Test Item Value Reference Range Interpretation Comments PHOSPHORUS (BEAKER) (test code = 4.3 mg/dL 2.3-4.7 604) Pattern Maker ID - DAREK MPOCT-GLUCOSE [id number] 07:57:00 Test Item Value Reference Range Interpretation Comments POC-GLUCOSE METER 144 mg/dL 70-110 H : TESTED A T [facility] 6720 (BEAKER) (test code = [facility], 1538) [address]: Pattern Maker/Techni elsie ID = [id number] for IB RAHIM, SERKALEM CBC W/PLT COUNT & AUTO [id number] 07:45:00 Test Item Value Reference Range Interpretation [...] PERCENT (BEAKER) (test code = 2801) POCT-GLUCOSE [id number] 21:17:00 Test Item Value Reference Range Interpretation Comments POC-GLUCOSE METER 162 mg/dL 70-110 H : TESTED A T [facility] 6720 (BEAKER) (test code = [facility], 153) [address]: Pattern Maker/Techni elsie ID = [id number] for Hodan Mayo POCT-GLUCOSE [id number] 17:43:00 Test Item Value Reference Range Interpretation Comments POC-GLUCOSE METER 129 mg/dL 70-110 H : TESTED A T [facility] 6720 (BEAKER) (test code = [facility], 153) [address]: Pattern Maker/Techni elsie ID = [id number] for Edwin Gonsalez U/S, [id number] 15:28:00DR STRIBLINGLabs to be ordered:->Body Fluid Culture (w/Gram Stain, C\T\S)Labs to be ordered:->G lucose+LDH+ProteinLabs to be ordered:->Cell CountLabs to be ordered:- >CytologyReason for exam:->ascites [facility] 1955 Sex: MFINAL REPORT Ultrasound guided paracentesis Clinical History: Ascites. Sedation: None. [place] [facility]: Michelle Wilson PA-C Supervising Physician: Scott Alcazar MD Sealing And Canceling Machine Operator: None. Estimated Blood Loss: < 1 mL. [...] anesthesia was achieved with lidocaine, a 5 [place] one-step catheter was advanced into the peritoneal cavity under ultrasound guidance. After completion of drainage, the catheter was removed. There was no evidence of complication. Impression:Successful ultrasound guided paracentesis. Signed: Scott Alcazarort Verified Date/Time: 05/28/2021 15:28:45 Reading Location: [address] Ultrasound Reading Room RAD, CHEST, 1 VIEW, NON [id number] 12:52:00DR Babita for exam:->interval change, pleural effusionShould this be performed at the bedside?->Yes [facility] : 1955 Sex: MFINAL REPORT [...] MDReport Verified Date/Time: 05/28/2021 12:52:22 Reading Location: [facility] Diagnostic Imaging Reading Room - [place] [address] POCT-GLUCOSE [id number] 12:06:00 Test Item Value Reference Range Interpretation Comments POC-GLUCOSE METER 157 mg/dL 70-110 H : TESTED A T [facility] 6720 (BEAKER) (test code = [place], 1538 [address]: Pattern Maker/Techni elsie ID = [id number] for Yuki cai (pca2), Shayna BODY FLUID CULTURE + GRAM [id number] 09:41:00 Test Item Value Reference Range Interpretation Comments CULTURE (BEAKER) (test code No growth = 1095) GRAM STAIN RESULT (BEAKER) 1+ WBCs (test code = 1123) GRAM STAIN RESULT (BEAKER) No organisms seen (test code = 89282) POCT-GLUCOSE [id number] 08:28:00 Test Item Value Reference Range Interpretation Comments POC-GLUCOSE METER 123 mg/dL 70-110 H : Notified RN/MD: (BEAKER) (test code = TESTED AT [facility] 4047 4055) [facility], [address]: Pattern Maker/Techni elsie ID = [id number] for Yuki caballero (pca2), Nohelia [id number] 08:10:00 Test Item Value Reference Range Interpretation Comments MAGNESIUM (BEAKER) (test code = 1.8 mg/dL 1.6-2.6 627) Pattern Maker ID - PATRICIA [facility] METABOLIC [id number] 07:50:00 Test Item Value Reference Range Interpretation [...] S NOT APPLICABLE FOR DIALYSIS PATIEN TS. Pattern Maker ID - ANIBALAYA [id number] 07:35:00 Test Item Value Reference Range Interpretation Comments PHOSPHORUS (BEAKER) (test code = 5.7 mg/dL 2.3-4.7 H 604) Pattern Maker ID - PIAYA LCBC W/PLT COUNT & AUTO [id number] 07:06:00 Test Item Value Reference Range Interpretation [...] EOSINOPHILS ABSOLUTE COUNT 0.20 K/ L 0.04-0.54 (AKER) (test code = 416) BASOPHILS ABSOLUTE COUNT (AKER) 0.02 K/ L 0.01-0.08 (test code = 417) IMMATURE GRANULOCYTES-RELATIVE 1 % 0-1 PERCENT (AKER) (test code = 2801) POCT-GLUCOSE [id number] 21:19:00 Test Item Value Reference Range Interpretation Comments POC-GLUCOSE METER 126 mg/dL 70-110 H : TESTED A T [facility] 67 (CONRAD) (test code = [facility], 1538) [address]: Pattern Maker/Techni elsie ID = [id number] for Arlet Yanes POCT-GLUCOSE [id number] 18:22:00 Test Item Value Reference Range Interpretation Comments POC-GLUCOSE METER 164 mg/dL 70-110 H : Notified RN/MD: (CONRAD) (test code = TESTED AT [facility] 67 1538) [facility], [address]: Pattern Maker/Techni elsie ID = [id number] for Yuki caballero (pca2), Nohelia POCT-GLUCOSE [id number] 13:51:00 Test Item Value Reference Range Interpretation Comments POC-GLUCOSE METER 114 mg/dL 70-110 H : Notified RN/MD: (CONRAD) (test code = TESTED AT [place] [address] 1538) [facility], [address]: Pattern Maker/Techni elsie ID = [id number] for Yuki caballero (pca2), Palmer [id number] 11:15:00Medical Cytology Report Case: [id number] Authorizing Provider: Rome Bhatti MD Collected: 05/26/2021 10:25 AM Ordering Location: [facility] Emergency Department Received: 05/26/2021 01:28 PM Pathologist: Silvestre Le MD Specimen: Peritoneal Fluid PERITONEAL FLUID (CYTOSPINS AND CELL BLOCK): -NEGATIVE FOR MALIGNANCY Signing Pathologist Direct Phone Line: Reactive mesothelial cells are present.62026, 73102Wujssbs; history of chronic systolic/diastolic heart failure, cirrhosis, DM, hypothyroidism, HLD, chronic hypotension, CAD, chronic anemia, ESRD presented with abdominal distension, decreased uop, burning of foreskin and penisPERITONEAL FLUIDReceived 1500 ml clear, yellow fluid; prepared 4 cytospins and cell block(A2) - cell block prepared using a collodion bag andfixed in formalin at 5:02 pm on 05/26/21Performed. [facility], Department of Pathology, [address] [place] [address], [facility], [facility] of [facility], [address] [place] [address], [facility], Department of Pathology, [address] [place] [address], ADXLFSM DEHYDROGENASE (LDH), BODY [id number] 10:45:00 Test Item Value Reference Range Interpretation Comments LACTATE DEHYDROGENASE FLUID (BEAKER) 123 U/L (test code = 634) Absence of reference range indicates that normals have not been defined.Assay performance has not been validated for this type of specimen.Pattern Maker ID - ivan72ONOFQUS, BODY [id number] 10:41:00 Test Item Value Reference Range Interpretation Comments PROTEIN FLUID (BEAKER) (test code = 5.4 g/dL 579) Absence of reference range indicates that normals have not been defined.Assay performance has not been validated for this type of specimen.Pattern Maker ID - [id number]-BHOPPJL [id number] 09:21:00 Test Item Value Reference Range Interpretation Comments POC-GLUCOSE METER 134 mg/dL 70-110 H : TESTED A T [facility] 6720 (BEAKER) (test code = [facility], 1538) [address]: Pattern Maker/Techni elsie ID = [id number] for JERRY BENSON LUCY BASIC METABOLIC [id number] 07:43:00 Test Item Value Reference Range Interpretation [...] S NOT APPLICABLE FOR DIALYSIS PATIEN TS. Pattern Maker ID - MAGEN [id number] 07:42:00 Test Item Value Reference Range Interpretation Comments MAGNESIUM (BEAKER) (test code = 2.0 mg/dL 1.6-2.6 627) Pattern Maker ID - MAGEN [id number] 07:42:00 Test Item Value Reference Range Interpretation Comments PHOSPHORUS (BEAKER) (test code = 4.4 mg/dL 2.3-4.7 604) Pattern Maker ID - MAGEN WCBC W/PLT COUNT & AUTO [id number] 06:55:00 Test Item Value Reference Range Interpretation [...] PERCENT (BEAKER) (test code = 2801) POCT-GLUCOSE [id number] 21:47:00 Test Item Value Reference Range Interpretation Comments POC-GLUCOSE METER 138 mg/dL 70-110 H : TESTED A T [facility] 6720 ([facility]) (test code = [place], 1538) [address]: Pattern Maker/Techni elsie ID = [id number] for La cy (pca2), Victori a PTH, [id number] 19:07:00 Test Item Value Reference Range Interpretation Comments PARATHYROID HORMONE INTACT 396.3 pg/mL 8.5-72.5 H (BEAKER) (test code = 577) Pattern Maker ID - BSPOCT-GLUCOSE [id number] 17:30:00 Test Item Value Reference Range Interpretation Comments POC-GLUCOSE METER 71 mg/dL 70-110 : TESTED A T [facility] 6720 (BEAKER) (test code = [facility], 1538) [address]: Pattern Maker/Techni elsie ID = [id number] for Rosario ano, Edwin [id number] 17:28:00 Test Item Value Reference Range Interpretation Comments FERRITIN (BEAKER) (test code = 1901.90 ng/mL 5.00-275.00 H 361) Pattern Maker ID - BSPOCT-GLUCOSE [id number] 17:18:00 Test Item Value Reference Range Interpretation Comments POC-GLUCOSE METER 63 mg/dL 70-110 L : TESTED A T [facility] 6720 (BEAKER) (test code = [facility], 1538) [address]: Pattern Maker/Techni elsie ID = [id number] for Rosario ano, Edwin IRON, TIBC, % SAT. (WITHOUT FERRITIN)2021-05-26 17:00:00 Test Item Value Reference Range Interpretation Comments IRON (BEAKER) (test code = 547) 44.0 ug/dL 40.0-160.0 TOTAL IRON BINDING CAPACITY 136 ug/dL 250-450 L (BEAKER) (test code = 769) IRON % SATURATION (2) (BEAKER) 32 % 20-55 (test code = 2590) Pattern Maker ID - BSHEPATITIS B SURFACE [id number] 14:17:00 Test Item Value Reference Range Interpretation Comments HEPATITIS B SURFACE ANTIGEN (2) Nonreactive Nonreactive (BEAKER) (test code = 2585) Specimen is considered negative for HBsAg.BODY FLUID CELL COUNT WITH [id number] 13:17:00 Test Item Value Reference Range Interpretation [...] ed message] (BEAKER) (test code = The stem which 1694) generated this result transmit [...] Cup (BEAKER) (test code = 2873) POCT-GLUCOSE [id number] 12:41:00 Test Item Value Reference Range Interpretation Comments POC-GLUCOSE METER 76 mg/dL 70-110 : TESTED A T [facility] 6720 (BEAKER) (test code = [facility], 1538) [address]: Pattern Maker/Techni elsie ID = [id number] for Greg bateman (pca2)Aleksandra POCT-GLUCOSE [id number] 07:29:00 Test Item Value Reference Range Interpretation Comments POC-GLUCOSE METER 90 mg/dL 70-110 : TESTED A T [facility] 6720 (BEAKER) (test code = [facility], 1538) [address]: Pattern Maker/Techni elsie ID = [id number] for Marisela ette, Ariel [id number] 05:33:00 Test Item Value Reference Range Interpretation Comments MAGNESIUM (BEAKER) (test code = 2.2 mg/dL 1.6-2.6 627) Pattern Maker ID - JORDAN [id number] 05:33:00 Test Item Value Reference Range Interpretation Comments PHOSPHORUS (BEAKER) (test code = 6.0 mg/dL 2.3-4.7 H 604) Pattern Maker ID - JORDAN MBASIC METABOLIC [id number] 05:33:00 Test Item Value Reference Range Interpretation [...] S NOT APPLICABLE FOR DIALYSIS PATIEN TS. Pattern Maker ID - JORDAN MCBC W/PLT COUNT & AUTO [id number] 05:27:00 Test Item Value Reference Range Interpretation [...] PERCENT (BEAKER) (test code = 2801) SARS-COV2/RT-PCR ([facility])2021-05-26 03:02:00 Test Item Value Reference Range Interpretation Comments SARS-COV2/RT-PCR Negative Negative The SARS-Co V-2 target (test code = 9581047) nuclei c acids are not detected in [...] SARS-CoV-2/Flu/RSV by their healthcare provider. Results from [facility] Xpert Xpress SARS-CoV-2/Flu/RSV test should be correlated [...] of the Act.Fact Sheet for Healthcare Providers :https://www.[employer]/Documents/Xpert%20Xpress%20SARS%20CoV-2/Fact%20Sheets/3 02-3902%62ESOL-UNT-1%20HEALTHCARE%20PROVIDERS%20FACT%20SHEET.pdfFact Sheet for Healthcare Patients:https://www.[employer] /Documents/Xpert%20Xpress%20SARS%20Cov-2/Fact%20Sheets/302-3801%69KGGN-UJZ-7%20P ATIENT%20FACT%20SHEET.pdfRAD, CHEST, 1 VIEW, NON [id number] 22:32:00DR STRIBLINGReason for exam:->shortness of breathShould this be performed at the bedside?->Yes[facility] : 1955 Sex: MFINAL REPORT Chest dated [...] MDReport Verified Date/Time: 05/25/2021 22:32:46 Reading Location: [facility] C013W Consult Reading Room CT, [id number] 21:35:00DR STRIBLINGUnlisted Reason for Exam - Click Yes and Enter Reason Below->NoWill this procedure require oral contrast?->No[facility] : 1955 Sex: [...] evaluation with HIDA scan. Signed: Marya Arredondo [facility] Verified Date/Time: 05/25/2021 21:35:09 [id number] 19:39:00 Test Item Value Reference Range Interpretation Comments LIPASE (BEAKER) (test code = 749) 19 U/L 8-78 Pattern Maker ID - DBCOMPREHENSIVE METABOLIC [id number] 19:39:00 Test Item Value Reference Range Interpretation [...] S NOT APPLICABLE FOR DIALYSIS PATIEN TS. Pattern Maker ID - DBOperator ID - DBB-TYPE NATRIURETIC FACTOR (BNP)2021-05-25 19:34:00 Test Item Value Reference Range Interpretation Comments B-TYPE NATRIURETIC PEPTIDE 21250 pg/mL 0-100 H (BEAKER) (test code = 700) Pattern Maker ID - dbOperator ID - dbHIGH SENSITIVITY TROPONIN [id number] 19:13:00 Test Item Value Reference Range Interpretation Comments HIGH SENSITIVITY 54 pg/ml See_Comment H [Automated message] TROPONIN I (test code = The system which 2082436) generated this result transmitted ref erence range: <=35. Th e reference range was not used to int erpret this result as normal/abnormal . Pattern Maker ID - dbThe MANAGER POOL STAT High Sensitivity Troponin-I results should be used in conjunctionwith other diagnostic information such as ECG, clinical observations and information, and patient symptoms to aid in the diagnosis of AR.PT/[id number] 19:08:00 Test Item Value Reference Range Interpretation [...] for patients with mechanical heart valves.HEPATIC FUNCTION [id number] 19:07:00 Test Item Value Reference Range Interpretation [...] (test code = 8 U/L 6-55 347) Pattern Maker ID - DBCBC W/PLT COUNT & AUTO [id number] 18:55:00 Test Item Value Reference Range Interpretation [...] % 0-1 PERCENT (BEAKER) (test code = 2800) [id number] 16:39:00 Test Item Value Reference Range Interpretation Comments GLUBED (test code = 104 MG/DL 70-110 N Performe d by 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 [facility] - XR FLUOROSCOPY 0-60 [id number] 15:03:00 [facility] 1955 Sex: M FAX: Espinoza Santillan MD [phone] Andreas: St: REG Name: TROY FORTE RUANO [facility] : 1955 Age/S: 65/M [address] [place] [address] Unit #: [id number] Loc: [place] [address] Phys: Espinoza Villagran MD Acct: [id number] Dis Date: Status[facility] PHONE #: [phone] Exam Date: 12/19/2020 1445 FAX #: [phone] Reason: LUE FISTULA MALFUNCTION EXAMS: CPT CODE: [id number] XR FLUOROSCOPY0-60 MIN 70278 Study: - XR FLUOROSCOPY 0-60 MIN 12/19/2020 2:00 PM Patient Name: TROY FORTE MR: [id number] DATE: 12/19/2020 2:00 PM : 1955; Age: 65 years y/o Male Ordering Physician: Espinoza Villagran MD Clinical Indication: LUE FISTULA MALFUNCTION Intraprocedural fluoroscopy wasprovided by the Department of Radiology. Any images obtained were interpreted by the surgeon intraoperatively. Fluoroscopy time: 18 seconds Reference Air Kerma: 1.3 mGy SL: [id number] at 1503 Reported and signed by: Ar Coffman D.O. CC: Espinoza Villagran MD Technologist: SONNY Sneed) Trnscrd Date/Time/By: 12/19/2020 (3092) : By:[email or web address] Orig Print D/T: S: 12/19/2020 (8265) PAGE 1 Signed ReportBASIC METABOLIC PANEL 2020-12-19 [...] 8.8 mg/dL 8.0-10.5 N CA) CBC W/AUTO [id number] 10:45:00 Test Item Value Reference Range Interpretation [...] NO = MDIFF) - XR CHEST 1 [id number] 10:42:00 [facility] : 1955 Sex: M FAX: Espinoza Santillan MD [phone] Andreas: St: REG Name: TROY FORTE [facility] : 1955 Age/S: 65/M [address] [place] [address] Unit #: [id number] Loc: [place] [address] Phys: Espinoza Villagran MD Acct: [id number] Dis Date: Status: [facility] PHONE #: [phone] Exam Date: 12/19/2020 103 FAX #: [phone] Reason: PRE PROCEDURE EXAMS: CPT CODE: [id number] XR CHEST 1 V 79523 Study: - XR CHEST 1 V 12/19/2020 9:13 AM Patient Name: TROY FORTE MR: [id number] : 1955; Age: 65 years y/o Male [...] congestion and small bilateral pleural effusions. SL: [id number] at 1042 Reported and signed by: Tr Ly M.D. CC: Espinoza Villagran MD Technologist: RT Navya(Melodie) Trnscrd Date/Time/By: 12/19/2020 (850) : By: [email or web address] Orig Print D/T: S: 12/19/2020 (7269) PAGE 1 Signed ReportCBC W/AUTO [id number] 10:41:00 Test Item Value Reference Range Interpretation [...] code = MDIFF) COVID 19 Asymptomatic IH [id number] 10:40:00 Test Item Value Reference Range Interpretation [...] Interpretation Comments SCAN RESULT (test code = 3583010) ALBUMIN PERITONEAL [id number] 11:32:00 Test Item Value Reference Range Interpretation Comments ALBUMIN, PERITONEAL FLUID (BEAKER) 2.4 g/dL (test code = 6195572) This test was performed at [facility], [facility].Reference range is not defined and interpretation must be performed in the consideration of the pathophysiology of the analyte and the clinical context.POCT-GLUCOSE METER 2020-11-21 11:23:00 Test Item Value Reference Range Interpretation Comments POC-GLUCOSE METER 175 mg/dL 70-110 H : TESTED A T [facility] 6720 (BEAKER) (test code = [place], 1538) [address]: Pattern Maker/Techni elsie ID = [id number] for FAHAD CASTAÑEDA HEPATIC FUNCTION [id number] 10:08:00 Test Item Value Reference Range Interpretation [...] (test code = 7 U/L 6-55 347) Pattern Maker ID - EDASIPOCT-GLUCOSE [id number] 08:18:00 Test Item Value Reference Range Interpretation Comments POC-GLUCOSE METER 130 mg/dL 70-110 H : TESTED A T [facility] 6720 (BEAKER) (test code = [place], 1538) [address]: Pattern Maker/Techni elsie ID = [id number] for FAHAD CASTAÑEDA BASIC METABOLIC [id number] 07:17:00 Test Item Value Reference Range Interpretation [...] S NOT APPLICABLE FOR DIALYSIS PATIEN TS. Pattern Maker ID - [id number] 07:16:00 Test Item Value Reference Range Interpretation Comments MAGNESIUM (BEAKER) (test code = 2.0 mg/dL 1.6-2.6 627) Pattern Maker ID - ADMINCBC (HEMOGRAM ONLY)2020-11-21 06:55:00 Test [...] = 413) RAD, CHEST, 1 VIEW, NON [id number] 00:39:00Reason for exam:->SICD implantShould this be performed at the bedside?->Yes [facility] : 1955 Sex: MFINAL REPORT [...] subcutaneous emphysemain the left chest wall. Signed: Amuta, Elidia MDReport Verified Date/Time: 11/21/2020 00:39:32 E lectronically signed by: ELIDIA PATEL MD on 11/21/2020 12:39 AMPOCT- GLUCOSE [id number] 21:44:00 Test Item Value Reference Range Interpretation Comments POC-GLUCOSE METER 173 mg/dL 70-110 H : TESTED A T [facility] 6720 (BEAKER) (test code = [facility], 1538) [address]: Pattern Maker/Techni elsie ID = [id number] for WILMAN BIRD RA POCT-GLUCOSE [id number] 18:37:00 Test Item Value Reference Range Interpretation Comments POC-GLUCOSE METER 157 mg/dL 70-110 H : TESTED A T [facility] 6720 (BEAKER) (test code = [facility], 1538) [address]: Pattern Maker/Techni elsie ID = [id number] for RICARDO COOK POCT-GLUCOSE [id number] 17:03:00 Test Item Value Reference Range Interpretation Comments POC-GLUCOSE METER 151 mg/dL 70-110 H : TESTED A T [facility] 6720 (BEAKER) (test code = [facility], 1538) [address]: Pattern Maker/Techni elsie ID = [id number] for CORI NAVA BLOOD GAS, [id number] 14:46:00 Test Item Value Reference Range Interpretation [...] (test code = 1819) 100.0 SODIUM NA-STAT [id number] 14:46:00 Test Item Value Reference Range Interpretation Comments SODIUM (BEAKER) (test code = 381) 133 meq/L 136-145 L POTASSIUM-STAT [id number] 14:46:00 Test Item Value Reference Range Interpretation Comments POTASSIUM (BEAKER) (test code = 3.3 meq/L 3.6-5.5 L 379) GLUCOSE-STAT [id number] 14:46:00 Test Item Value Reference Range Interpretation Comments GLUCOSE RANDOM (BEAKER) (test code 143 mg/dL 70-110 H = 652) HGB/HCT (H&H) - STAT [id number] 14:46:00 Test Item Value Reference Range Interpretation Comments HEMOGLOBIN (BEAKER) (test code = 7.3 GM/DL 13.0-16.8 L 410) HEMATOCRIT (BEAKER) (test code = 21.0 % 40.0-50.0 L 411) BODY FLUID CULTURE + GRAM [id number] 12:24:00 Test Item Value Reference Range Interpretation Comments CULTURE (BEAKER) (test code No growth = 1095) GRAM STAIN RESULT (BEAKER) 1+ WBCs (test code = 1123) GRAM STAIN RESULT (BEAKER) No organisms seen (test code = 38678) POCT-GLUCOSE [id number] 09:22:00 Test Item Value Reference Range Interpretation Comments POC-GLUCOSE METER 156 mg/dL 70-110 H : Notified RN/MD: (BEAKER) (test code = TESTED AT [facility] 6789 4484) [facility], [address]: Pattern Maker/Techni elsie ID = [id number] for AN RICARDO DAUGHERTY PROTHROMBIN TIME/[id number] 04:26:00 Test Item Value Reference Range Interpretation [...] valves.Within 24 hours, if on CoumadinBASIC METABOLIC [id number] 04:13:00 Test Item Value Reference Range Interpretation [...] S NOT APPLICABLE FOR DIALYSIS PATIEN TS. Pattern Maker ID - PIAYA [id number] 04:03:00 Test Item Value Reference Range Interpretation Comments MAGNESIUM (BEAKER) (test code = 2.0 mg/dL 1.6-2.6 627) Pattern Maker ID - PIROSS LCBC (HEMOGRAM ONLY)2020-11-20 03:55:00 [...] CORPUSCULAR HEMOGLOBIN CONC 30.4 GM/DL 32.3-36.5 L ([facility]) (test code = 752) RED CELL DISTRIBUTION WIDTH 16.6 % 11.6-14.4 H ([facility]) (test code = 412) PLATELET COUNT ([facility]) (test 240 K/CU MM 150-450 code = 756) MEAN PLATELET VOLUME ([facility]) 10.1 fL 9.4-12.4 (test code = 754) NUCLEATED RED BLOOD CELLS 0 /100 WBC 0-0 ([facility]) (test code = 413) POCT-GLUCOSE [id number] 21:13:00 Test Item Value Reference Range Interpretation Comments POC-GLUCOSE METER 222 mg/dL 70-110 H : TESTED A T [facility] 6720 ([facility]) (test code = [facility], 153) [address]: Pattern Maker/Techni elsie ID = [id number] for WILMAN BIRD RA POCT-GLUCOSE [id number] 17:48:00 Test Item Value Reference Range Interpretation Comments POC-GLUCOSE METER 205 mg/dL 70-110 H : Notified RN/MD: ([facility]) (test code = TESTED AT [place] [address] 153) [facility], [address]: Pattern Maker/Techni elsie ID = [id number] for AN RICARDO DAUGHERTY POCT-GLUCOSE [id number] 12:22:00 Test Item Value Reference Range Interpretation Comments POC-GLUCOSE METER 196 mg/dL 70-110 H : Notified RN/MD: ([facility]) (test code = TESTED AT [place] [address] 153) [facility], [address]: Pattern Maker/Techni elsie ID = [id number] for RICARDO COOK POCT-GLUCOSE [id number] 08:52:00 Test Item Value Reference Range Interpretation Comments POC-GLUCOSE METER 166 mg/dL 70-110 H : [facility] ([facility]) (test code = [facility], 1537) [address]: Pattern Maker/Techni elsie ID = [id number] for Junie cano POCT-GLUCOSE [id number] 08:52:00 Test Item Value Reference Range Interpretation Comments POC-GLUCOSE METER 176 mg/dL 70-110 H : TESTED A T [facility] 6720 (BEAKER) (test code = [facility] [place] [facility], 1538) [address]: Pattern Maker/Techni elsie ID = [id number] for Junie Gutiérrez POCT-GLUCOSE [id number] 08:39:00 Test Item Value Reference Range Interpretation Comments POC-GLUCOSE METER 144 mg/dL 70-110 H : Notified RN/MD: (BEAKER) (test code = TESTED AT [facility] 6720 1538) [facility], [address]: Pattern Maker/Techni elsie ID = [id number] for RICARDO COOK BASIC METABOLIC [id number] 07:50:00 Test Item Value Reference Range Interpretation [...] S NOT APPLICABLE FOR DIALYSIS PATIEN TS. Pattern Maker ID - [id number] 07:46:00 Test Item Value Reference Range Interpretation Comments MAGNESIUM (BEAKER) (test code = 2.0 mg/dL 1.6-2.6 627) Pattern Maker ID - JOSHUASONHEPATIC FUNCTION [id number] 07:46:00 Test Item Value Reference Range Interpretation [...] (test code = 9 U/L 6-55 347) Pattern Maker ID - JOSHUASONB-TYPE NATRIURETIC FACTOR (BNP)2020-11-19 07:44:00 Test Item Value Reference Range Interpretation Comments B-TYPE NATRIURETIC PEPTIDE 4442 pg/mL 0-100 H (BEAKER) (test code = 700) Pattern Maker ID - EMERSONCBC (HEMOGRAM ONLY)2020-11-19 07:14:00 Test [...] 0-0 (BEAKER) (test code = 413) POCT-GLUCOSE [id number] 23:22:00 Test Item Value Reference Range Interpretation Comments POC-GLUCOSE METER 132 mg/dL 70-110 H : TESTED A T [facility] 6720 (BEAKER) (test code = [facility], 1538) [address]: Pattern Maker/Techni elsie ID = [id number] for NO OR ABISAI BROWN POCT-GLUCOSE [id number] 17:45:00 Test Item Value Reference Range Interpretation Comments POC-GLUCOSE METER 259 mg/dL 70-110 H : TESTED A T [facility] 6720 (BEAKER) (test code = [facility]odie [facility], 1538) [address]: Pattern Maker/Techni elsie ID = [id number] for Junie Gutiérrez T4, [id number] 09:08:00 Test Item Value Reference Range Interpretation Comments FREE T4 (BEAKER) (test code = 655) 0.62 ng/dL 0.70-1.48 L Pattern Maker ID - JORDAN MTSH/FREE T4 IF [id number] 08:03:00 Test Item Value Reference Range Interpretation Comments THYROID STIMULATING HORMONE 7.177 uIU/mL 0.350-4.940 H (BEAKER) (test code = 772) Pattern Maker ID - JORDAN MBASIC METABOLIC [id number] 07:42:00 Test Item Value Reference Range Interpretation [...] S NOT APPLICABLE FOR DIALYSIS PATIEN TS. Pattern Maker ID - JORDAN [id number] 07:41:00 Test Item Value Reference Range Interpretation Comments MAGNESIUM (BEAKER) (test code = 1.9 mg/dL 1.6-2.6 627) Pattern Maker ID - JORDAN MHEPATIC FUNCTION [id number] 07:41:00 Test Item Value Reference Range Interpretation [...] (test code = 11 U/L 6-55 347) Pattern Maker ID - JORDAN MCBC (HEMOGRAM ONLY)2020-11-18 06:18:00 [...] 0-0 (BEAKER) (test code = 413) POCT-GLUCOSE [id number] 00:01:00 Test Item Value Reference Range Interpretation Comments POC-GLUCOSE METER 164 mg/dL 70-110 H : [facility] (BEAKER) (test code = [facility], 1538) [address]: Pattern Maker/Techni elsie ID = [id number] for NO OR STEPHANIE ABISAI CUETO JONE POCT-GLUCOSE [id number] 17:28:00 Test Item Value Reference Range Interpretation Comments POC-GLUCOSE METER 247 mg/dL 70-110 H : [facility] 67[facility] (BEAKER) (test code = [facility], 1538) [address]: Pattern Maker/Techni elsie ID = [id number] for EDE GASPAR [id number] 15:35:00Medical Cytology Report Case: [id number] Authorizing Provider: Arben Cantor MD Collected: 11/16/2020 11:50 AM Ordering Location: [address] Received: 11/17/2020 09:32 AM Service Pathologist: Silvestre Le MD Specimen: Perit cabezas Fluid PERITONEAL FLUID (CYTOPSPINS): - NEGATIVE FOR MALIGNANCY Signing Pathologist Direct Phone Line: [phone] signed by Silvestre Le MD on 11/17/2020 at 3:35 [id number], CHFPERITONEAL [id number] mls madina fluid; 4 cytospinsPerformed. [facility], Department of Pathology, [address] [place] [address], [facility], [facility] of [facility], [address] [place] [address], [facility], Department of Pathology, [address] [place] [address], LTUC-NUCLEAR ANTIBODY (SANTANA)2020-11-17 15:14:00 Test Item Value Reference Range Interpretation Comments ANTI-NUCLEAR ANTIBODY (SANTANA) (BEAKER) Negative Negative (test code = 418) Test performed by IFA method.Test performed by IFA method.PROTEIN, TOTAL, PERITONEAL [id number] 15:08:00 Test Item Value Reference Range Interpretation Comments PROTEIN, TOTAL, PERITONEAL FLUID 5.2 g/dL (BEAKER) (test code = 4947246) POCT-GLUCOSE [id number] 12:05:00 Test Item Value Reference Range Interpretation Comments POC-GLUCOSE METER 187 mg/dL 70-110 H : TESTED A T [facility] 6720 (BEAKER) (test code = [facility], 1538) [address]: Pattern Maker/Techni elsie ID = [id number] for EDE GASPAR POCT-GLUCOSE [id number] 08:00:00 Test Item Value Reference Range Interpretation Comments POC-GLUCOSE METER 202 mg/dL 70-110 H : TESTED A T [facility] 6720 (BEAKER) (test code = [facility], 1538) [address]: Pattern Maker/Techni elsie ID = [id number] for EDE GASPAR BASIC METABOLIC [id number] 06:49:00 Test Item Value Reference Range Interpretation [...] S NOT APPLICABLE FOR DIALYSIS PATIEN TS. Pattern Maker ID - [id number] 06:46:00 Test Item Value Reference Range Interpretation Comments MAGNESIUM (BEAKER) (test code = 1.9 mg/dL 1.6-2.6 627) Pattern Maker ID - [id number] 06:46:00 Test Item Value Reference Range Interpretation Comments PHOSPHORUS (BEAKER) (test code = 6.9 mg/dL 2.3-4.7 H 604) Pattern Maker ID - EDASIHEPATIC FUNCTION [id number] 06:46:00 Test Item Value Reference Range Interpretation [...] (test code = 10 U/L 6-55 347) Pattern Maker ID - EDASIPTH, [id number] 06:40:00 Test Item Value Reference Range Interpretation Comments PARATHYROID HORMONE INTACT 540.2 pg/mL 8.5-72.5 H (BEAKER) (test code = 577) Pattern Maker ID - DBCBC W/PLT COUNT & AUTO [id number] 06:23:00 Test Item Value Reference Range Interpretation [...] PERCENT (BEAKER) (test code = 2801) POCT-GLUCOSE [id number] 22:19:00 Test Item Value Reference Range Interpretation Comments POC-GLUCOSE METER 233 mg/dL 70-110 H : TESTED A T [facility] 6720 (BEAKER) (test code = [place], 1538) [address]: Pattern Maker/Techni elsie ID = [id number] for Emmanuel Moreno POCT-GLUCOSE [id number] 17:34:00 Test Item Value Reference Range Interpretation Comments POC-GLUCOSE METER 179 mg/dL 70-110 H : Notified RN/: (CONRAD) (test code = TESTED AT [place] [address] 1538) [facility], [address]: Pattern Maker/Techni elsie ID = [id number] for AN RICARDO DAUGHERTY [id number] 15:07:00 Test Item Value Reference Range Interpretation Comments FERRITIN (BEAKER) (test code = 3231.34 ng/mL 5.00-275.00 H 361) Pattern Maker ID - EDASIOperator ID - EDASIBODY FLUID [...] EDTA Tube (test code = 2873) POCT-GLUCOSE [id number] 13:16:00 Test Item Value Reference Range Interpretation Comments POC-GLUCOSE METER 206 mg/dL 70-110 H : Notified RN/: (CONRAD) (test code = TESTED AT [place] [address]) [facility], [address]: Pattern Maker/Techni elsie ID = [id number] for AN RICARDO DAUGHERTY U/S, [id number] 12:46:00Last Plavix 1/7Labs to be ordered:->Body Fluid Culture (w/Gram Stain, C\T\S)Needs total protein, and fluid albumin for SAAG calculationLabs to be ordered:->CytologyLabs to be ordered:->Cell Cou ntLabs to be ordered:->Other (please add comment)Reason for exam:->new onset ascitesCH[facility] : 1955 Sex: [...] MDReport Verified Date/Time: 11/16/2020 12:46:29 Reading Location: [facility] C013Y CO Body Reading Room [id number] 2020-11-16 11:46:00 Test Item Value Reference Range Interpretation Comments ALPHA-1 ANTITRYPSIN (BEAKER) 235.00 mg/dL 90.00-200.00 H (test code = 502) Pattern Maker ID - EDASIOperator ID - AAHAMIDSARS-COV2/RT-PCR ([facility]) 2020-11-16 11:16:00 Test Item Value Reference Range Interpretation Comments SARS-COV2/RT-PCR (test Negative Not Detected, Negative, code = 4259672) See external report for linked test SARS-COV-[address] [facility] KARINA (test code = 4217519) Negative result for this test determines that [...] 564(g) of the Act.Fact Sheet for Healthcare Providers:https://www.Plexidel.com/sites/default/files/product/documents/Fact_Shee u_YD_Emhpfqjbz_Hxzj_MPTQ-OmR-9.pdfFact Sheet for Healthcare Patients:https://www.Plexidel.com/sites/default/files/product/ documents/Ajqd_Cmvyc_Oeqbypvx_Bpdz_TOMM-XaJ-3.pdfPerforming Laboratory:[facility], [place] [address]IIBDRJICL A ANTIBODY, [id number] 11:06:00 Test Item Value Reference Range Interpretation Comments HEPATITIS A IGG ANTIBODY (BEAKER) Reactive Nonreactive A (test code = 2797) Pattern Maker ID - AAHAMIDALPHA FETOPROTEIN (AFP), TUMOR [id number] 10:52:00 Test Item Value Reference Range Interpretation Comments ALPHA-FETOPROTEIN (BEAKER) (test code < ng/mL <10.0 = 1094) Pattern Maker ID - AAHAMIDHEPATITIS A ANTIBODY, [id number] 09:52:00 Test Item Value Reference Range Interpretation Comments HEPATITIS A IGM ANTIBODY (BEAKER) Nonreactive Nonreactive (test code = 498) Pattern Maker ID - AAHAMIDHEPATITIS B CORE ANTIBODY, [id number] 09:52:00 Test Item Value Reference Range Interpretation Comments HEPATITIS B CORE TOTAL ANTIBODY Nonreactive Nonreactive (BEAKER) (test code = 497) Pattern Maker ID - AAHAMIDHEPATITIS B SURFACE [id number] 09:52:00 Test Item Value Reference Range Interpretation Comments HEPATITIS B SURFACE ANTIBODY 256.5 mIU/mL <8.0 H (CONRAD) (test code = 647) Pattern Maker ID - AAHAMIDPOCT-GLUCOSE [id number] 08:18:00 Test Item Value Reference Range Interpretation Comments POC-GLUCOSE METER 190 mg/dL 70-110 H : Notified RN/MD: (ISAACDIPIKA) (test code = TESTED AT [facility] 6720 1538) [facility], [address]: Pattern Maker/Techni elsie ID = [id number] for AN WILLOW RICARDO U/S, ABDOMINAL, [id number] 06:31:00Evaluate spleen size and hepatic vesselsAbdomen limited area? Add comment if clarification is needed.- >LiverReason for exam:->New onset ascites - CT with nodular liver contour - please examine hepatic vasculature to r/o PVT [facility] : 1955 Sex: MFINAL REPORT [...] venous thrombosis.Right pleural effusion. Signed: Elidia Patel [facility] CENTEReport Verified Date/Time: 11/16/2020 06:31:37 U/S, DUPLEX, [id number] 06:31:00Reason for exam:->hepatic vasculature pvt [facility] : 1955 Sex: [...] Elidia [place] Verified Date/Time: 11/16/2020 06:31:37 POCT-GLUCOSE [id number] 22:44:00 Test Item Value Reference Range Interpretation Comments POC-GLUCOSE METER 191 mg/dL 70-110 H : TESTED A T [facility] 6720 (BEAKER) (test code = [facility], 153) [address]: Pattern Maker/Techni elsie ID = [id number] for YUKI CLEMENT POCT-GLUCOSE [id number] 22:26:00 Test Item Value Reference Range Interpretation Comments POC-GLUCOSE METER 211 mg/dL 70-110 H : TESTED A T [facility] 6720 (BEAKER) (test code = [facility], 153) [address]: Pattern Maker/Techni elsie ID = [id number] for DIONISIO [place] POCT-GLUCOSE [id number] 19:18:00 Test Item Value Reference Range Interpretation Comments POC-GLUCOSE METER 122 mg/dL 70-110 H : TESTED A T [facility] 6720 (BEAKER) (test code = [facility], 1538) [address]: Pattern Maker/Techni elsie ID = [id number] for OG MARK, SANDHYA POCT-GLUCOSE [id number] 12:37:00 Test Item Value Reference Range Interpretation Comments POC-GLUCOSE METER 173 mg/dL 70-110 H : TESTED A T [facility] 6720 (BEAKER) (test code = [facility], 4838) [address]: Pattern Maker/Techni elsie ID = [id number] for AN RICARDO DAUGHERTY HEPATITIS B SURFACE [id number] 11:33:00 Test Item Value Reference Range Interpretation Comments HEPATITIS B SURFACE ANTIGEN (2) Nonreactive Nonreactive (BEAKER) (test code = 2585) Specimen is considered negative for HBsAg.HEPATITIS B SURFACE [id number] 11:33:00 Test Item Value Reference Range Interpretation Comments HEPATITIS B SURFACE ANTIBODY 248.1 mIU/mL <8.0 H (BEAKER) (test code = 647) Pattern Maker ID - DBHEPATITIS B CORE ANTIBODY, [id number] 11:33:00 Test Item Value Reference Range Interpretation Comments HEPATITIS B CORE TOTAL ANTIBODY Nonreactive Nonreactive (BEAKER) (test code = 497) Pattern Maker ID - DBHEMOGLOBIN [id number] 11:28:00 Test Item Value Reference Range Interpretation [...] 24 % 20-55 (test code = 2590) Pattern Maker ID - DBPOCT-GLUCOSE [id number] 08:18:00 Test Item Value Reference Range Interpretation Comments POC-GLUCOSE METER 204 mg/dL 70-110 H : Notified RN/MD: (CONRAD) (test code = TESTED AT [facility] 9285 4925) [facility], [address]: Pattern Maker/Techni elsie ID = [id number] for AN RICARDO DAUGHERTY BASIC METABOLIC [id number] 07:13:00 Test Item Value Reference Range Interpretation [...] S NOT APPLICABLE FOR DIALYSIS PATIEN TS. Pattern Maker ID - [id number] 07:11:00 Test Item Value Reference Range Interpretation Comments MAGNESIUM (BEAKER) (test code = 2.1 mg/dL 1.6-2.6 627) Pattern Maker ID - DBHEPATIC FUNCTION [id number] 07:11:00 Test Item Value Reference Range Interpretation [...] (test code = 15 U/L 6-55 347) Pattern Maker ID - DBHEPATITIS C [id number] 06:59:00 Test Item Value Reference Range Interpretation Comments HEPATITIS C ANTIBODY (BEAKER) Nonreactive Nonreactive (test code = 367) Pattern Maker ID - DBCBC W/PLT COUNT & AUTO [id number] 06:57:00 Test Item Value Reference Range Interpretation [...] PERCENT (BEAKER) (test code = 2801) PROTHROMBIN TIME/[id number] 05:55:00 Test Item Value Reference Range Interpretation [...] mechanical heart valves.RAD, CHEST, 1 VIEW, NON [id number] 01:26:00Reason for exam:->Weight loss, new ascites, volume overloadShould this be performed at the bedside?->Yes [facility] : 1955 Sex: MFINAL REPORT [...] 70-110 H 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 d by 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 [facility] BASIC METABOLIC [id number] 13:42:00 Test Item Value Reference Range Interpretation [...] 8.2 mg/dL 8.0-10.5 N CA) CBC W/AUTO [id number] 13:28:00 Test Item Value Reference Range Interpretation [...] DIFF REQUIRED (test code NO = MDIFF) [id number] 11:56:00 Test Item Value Reference Range Interpretation Comments GLUBED (test code = 132 MG/DL 70-110 H Performe d by 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 [facility] Novel Coronavirus 2019 [id number] 20:44:00 Test Item Value Reference Range Interpretation Comments Novel Coronavirus 2019 Inhouse (test Negative Negative code = COVNONPUI) - XR CHEST 2 [id number] 10:48:00 FAX: Espinoza Santillan MD [phone] Andreas: St: PRE Name: TROY FORTE [facility] Mirna Padron : 1955 Age/S: 64/M [address] [place] [address] Unit#: [id number] Loc: [place] [address] Phys: Espinoza Villagran MD Acct: [id number] Dis Date: Status: PRE SDC PHONE #: [phone] Exam Date: 06/18/2020 0958 FAX #: [phone] Reason: PREOP- ESRD EXAMS: CPT CODE: [id number] XR CHEST 2 V 93501 CLINICAL HISTORY: PREOP- ESRD COMPARISON: March 22, [...] right atrium. 3. Bilateral pleural effusions. at 1046 Reported and signed by:Panda Puente M.D. CC: Espinoza Villagran MD Technologist: RT Paolo(R) Trnscrd Date/Time/By: 06/18/2020 (7161) : By: Ivonne Orig Print D/T: S: 06/18/2020 (0383) PAGE 1 Signed ReportBASIC METABOLIC [id number] 09:12:00 Test Item Value Reference Range Interpretation [...] = 8.0 mg/dL 8.0-10.5 N CA) PROTHROMBIN [id number] 09:06:00 Test Item Value Reference Range Interpretation [...] o prevent recurre nt infarct). THROMBOPLASTIN TIME [id number] 09:06:00 Test Item Value Reference Range Interpretation Comments THROMBOPLASTIN TIME PARTIAL (test Seconds 25.0-39.5 code = PTT) PROTHROMBIN [id number] 09:06:00 Test Item Value Reference Range Interpretation [...] o prevent recurre nt infarct). THROMBOPLASTIN TIME [id number] 09:06:00 Test Item Value Reference Range Interpretation Comments THROMBOPLASTIN TIME 37.2 Seconds 25.0-39.5 N Ther apeutic PARTIAL (test code = Range: 50.4 - 88.3 PTT) Seconds Effective 02/20/2019 CBC W/AUTO [id number] 08:58:00 Test Item Value Reference Range Interpretation [...] REQUIRED (test code NO = MDIFF) URINE [id number] 14:16:00 Test Item Value Reference Range Interpretation Comments CULTURE (AKER) (test ESCHERICHIA COLI A 4 0-49,000 col/mL [...] S Sulfamethoxazole (test code = 47) CULTURE ([facility]) (test A 80-89 ,000 col/mL code = 1095) Ekaterina albican s POCT-GLUCOSE [id number] 17:07:00 Test Item Value Reference Range Interpretation Comments POC-GLUCOSE METER 168 mg/dL 70-[address] [facility] 6720 ([facility]) (test code = [place] 1538) [address] POCT-GLUCOSE [id number] 13:49:00 Test Item Value Reference Range Interpretation Comments POC-GLUCOSE METER 172 mg/dL 70-110 H TESTED AT [place] [address] ([facility]) (test code = [facility] Melodie [facility] 1538) [address] BASIC METABOLIC [id number] 09:18:00 Test Item Value Reference Range Interpretation [...] H (BEAKER) (test code = 413) POCT-GLUCOSE [id number] 21:43:00 Test Item Value Reference Range Interpretation Comments POC-GLUCOSE METER 175 mg/dL 70-110 H TESTED AT [place] [address] ([facility]) (test code = [facility]ER[facility] [place] [facility] 1538) [address] POCT-GLUCOSE [id number] 12:42:00 Test Item Value Reference Range Interpretation Comments POC-GLUCOSE METER 113 mg/dL 70-110 H TESTED AT [place] [address] ([facility]) (test code = [facility]ER[facility] [place] [facility] 1538) [address] BASIC METABOLIC [id number] 08:22:00 Test Item Value Reference Range Interpretation [...] 0-0 (BEAKER) (test code = 413) POCT-GLUCOSE [id number] 21:40:00 Test Item Value Reference Range Interpretation Comments POC-GLUCOSE METER 159 mg/dL 70-[address] [facility] 6720 (BEAKER) (test code = [facility] 1538) [address] POCT-GLUCOSE [id number] 17:24:00 Test Item Value Reference Range Interpretation Comments POC-GLUCOSE METER 203 mg/dL 70-[address] [facility] 6720 (BEAKER) (test code = [place] 1538) [address] POCT-GLUCOSE [id number] 13:17:00 Test Item Value Reference Range Interpretation Comments POC-GLUCOSE METER 201 mg/dL 70-[address] [facility] 6720 (BEAKER) (test code = [facility]ERA [place] [facility] 1538) 6[address] POCT-GLUCOSE [id number] 08:11:00 Test Item Value Reference Range Interpretation Comments POC-GLUCOSE METER 199 mg/dL 70-110 H TESTED AT [place] [address] (BEAKER) (test code = [facility] Mel[place] [facility] 1538) [address] BASIC METABOLIC [id number] 07:40:00 Test Item Value Reference Range Interpretation [...] (BEAKER) (test code = 412) PLATELET COUNT ([facility]) (test 325 K/CU MM 150-450 code = 756) MEAN PLATELET VOLUME (AKER) 10.1 fL 9.4-12.4 (test code = 754) NUCLEATED RED BLOOD CELLS 0 /100 WBC 0-0 ([facility]) (test code = 413) POCT-GLUCOSE [id number] 23:55:00 Test Item Value Reference Range Interpretation Comments POC-GLUCOSE METER 198 mg/dL 70-110 H TESTED AT [place] [address] ([facility]) (test code = [facility] [place] [facility] 1538) [address] POCT-GLUCOSE [id number] 22:53:00 Test Item Value Reference Range Interpretation Comments POC-GLUCOSE METER 205 mg/dL 70-110 H TESTED AT [place] [address] ([facility]) (test code = [facility]ER[facility] [place] [facility] 1538) 80409 POCT-GLUCOSE [id number] 18:28:00 Test Item Value Reference Range Interpretation Comments POC-GLUCOSE METER 252 mg/dL 70-110 H TESTED AT [place] [address] ([facility]) (test code = [facility]ERA [place] [facility] 1538) 49395 POCT-GLUCOSE [id number] 13:01:00 Test Item Value Reference Range Interpretation Comments POC-GLUCOSE METER 118 mg/dL 70-110 H TESTED AT [place] [address] ([facility]) (test code = CIERA Sewell [facility] 1538) 746[address] BASIC METABOLIC [id number] 07:03:00 Test Item Value Reference Range Interpretation [...] NOT APPLICABLE FOR DIALYSIS PATIEN TS. POCT-GLUCOSE [id number] 21:53:00 Test Item Value Reference Range Interpretation Comments POC-GLUCOSE METER 189 mg/dL 70-110 H TESTED AT [place] [address] ([facility]) (test code = [facility] 1538) 87662 POCT-GLUCOSE [id number] 18:21:00 Test Item Value Reference Range Interpretation Comments POC-GLUCOSE METER 207 mg/dL 70-110 H TESTED AT [place] [address] ([facility]) (test code = [facility] 1538) 89681 POCT-GLUCOSE [id number] 12:36:00 Test Item Value Reference Range Interpretation Comments POC-GLUCOSE METER 95 mg/dL 70-110 TESTED AT [place] [address] ([facility]) (test code = [facility] [address] 1538) BASIC METABOLIC [id number] 09:00:00 Test Item Value Reference Range Interpretation [...] H (BEAKER) (test code = 413) POCT-GLUCOSE [id number] 21:13:00 Test Item Value Reference Range Interpretation Comments POC-GLUCOSE METER 125 mg/dL 70-[address] [facility] 6720 (BEAKER) (test code = [place] 1538) 18[address] POCT-GLUCOSE [id number] 13:58:00 Test Item Value Reference Range Interpretation Comments POC-GLUCOSE METER 150 mg/dL 70-[address] [facility] 6720 [facility] (test code = [facility] [place] [facility] 1538) 9[address] POCT-GLUCOSE [id number] 09:25:00 Test Item Value Reference Range Interpretation Comments POC-GLUCOSE METER 67 mg/dL 70-110 L Notified R N MD/[facility]ED AT [facility] (test code = [facility] 6720 [facility] 1538) [facility] 7703 0 POCT-GLUCOSE [id number] 09:25:00 Test Item Value Reference Range Interpretation Comments POC-GLUCOSE METER 65 mg/dL 70-110 L Notified R N MD/[facility]ED AT [facility] (test code = [facility] 6720 [place] [id number]) [facility] 7703 0 BASIC METABOLIC [id number] 07:54:00 Test Item Value Reference Range Interpretation [...] 0-0 (BEAKER) (test code = 413) POCT-GLUCOSE [id number] 21:31:00 Test Item Value Reference Range Interpretation Comments POC-GLUCOSE METER 119 mg/dL 70-110 H TESTED AT [place] [address] ([facility]) ([facility] = [facility] [place] 1538) [address] POCT-GLUCOSE [id number] 17:15:00 Test Item Value Reference Range Interpretation Comments POC-GLUCOSE METER 117 mg/dL 70-110 H TESTED AT [place] [address] ([facility]) (test code = [facility] Mel[place] [facility] 1538) 87395 POCT-GLUCOSE [id number] 12:55:00 Test Item Value Reference Range Interpretation Comments POC-GLUCOSE METER 76 mg/dL 70-110 TESTED AT [place] [address] ([facility]) (test code = [facility] [address] 1538) BASIC METABOLIC [id number] 08:15:00 Test Item Value Reference Range Interpretation [...] NOT APPLICABLE FOR DIALYSIS PATIEN TS. POCT-GLUCOSE [id number] 08:11:00 Test Item Value Reference Range Interpretation Comments POC-GLUCOSE METER 101 mg/dL 70-[address] [facility] 6720 ([facility]) (test code = [place] 1538) [address] CBC (HEMOGRAM ONLY)2019-06-09 06:58:00 Test Item Value [...] RED BLOOD CELLS 0 /100 WBC 0-0 ([facility] (test code = 413) POCT-GLUCOSE [id number] 20:40:00 Test Item Value Reference Range Interpretation Comments POC-GLUCOSE METER 116 mg/dL 70-110 H TESTED AT [place] [address] ([facility] (test code = [facility] 1538) 20476 POCT-GLUCOSE [id number] 17:32:00 Test Item Value Reference Range Interpretation Comments POC-GLUCOSE METER 122 mg/dL 70-110 H TESTED AT [place] [address] ([facility]) (test code = [facility] 1538) 28079 POCT-GLUCOSE [id number] 17:14:00 Test Item Value Reference Range Interpretation Comments POC-GLUCOSE METER 112 mg/dL 70-110 H TESTED AT [place] [address] ([facility]) (test code = [facility] 1538) 15628 POCT-GLUCOSE [id number] 16:56:00 Test Item Value Reference Range Interpretation Comments POC-GLUCOSE METER 219 mg/dL 70-110 H TESTED AT [place] [address] ([facility]) (test code = [facility] 1538) 44922 POCT-GLUCOSE [id number] 09:50:00 Test Item Value Reference Range Interpretation Comments POC-GLUCOSE METER 117 mg/dL 70-110 H TESTED AT [place] [address] ([facility]) (test code = [facility] 1538) 777[address] BASIC METABOLIC [id number] 07:14:00 Test Item Value Reference Range Interpretation [...] 0-0 (BEAKER) (test code = 413) POCT-GLUCOSE [id number] 21:59:00 Test Item Value Reference Range Interpretation Comments POC-GLUCOSE METER 78 mg/dL 70-110 TESTED AT [place] [address] ([facility]) (test code = CIER[facility] [place] [facility] [address] 1538) POCT-GLUCOSE [id number] 17:57:00 Test Item Value Reference Range Interpretation Comments POC-GLUCOSE METER 113 mg/dL 70-[address] [facility] 6720 ([facility]) (test code = [facility] [place] [facility] 1538) 32444 POCT-GLUCOSE [id number] 14:30:00 Test Item Value Reference Range Interpretation Comments POC-GLUCOSE METER 227 mg/dL 70-110 H TESTED AT [place] [address] ([facility]) (test code = [place] 1538) [address] BASIC METABOLIC [id number] 08:20:00 Test Item Value Reference Range Interpretation [...] NOT APPLICABLE FOR DIALYSIS PATIEN TS. POCT-GLUCOSE [id number] 08:01:00 Test Item Value Reference Range Interpretation Comments POC-GLUCOSE METER 139 mg/dL 70-110 H TESTED AT [place] [address] ([facility]) (test code = [place] 1538) [address] CBC (HEMOGRAM ONLY)2019-06-07 07:07:00 Test Item Value [...] (BEAKER) (test code = 412) PLATELET COUNT ([facility]) (test 356 K/CU MM 150-450 code = 756) MEAN PLATELET VOLUME (BEAKER) 9.7 fL 9.4-12.4 (test code = 754) NUCLEATED RED BLOOD CELLS 0 /100 WBC 0-0 (AKER) (test code = 413) POCT-GLUCOSE [id number] 22:52:00 Test Item Value Reference Range Interpretation Comments POC-GLUCOSE METER 271 mg/dL 70-110 H TESTED AT [place] [address] ([facility]) (test code = [place] 1538) [address] POCT-GLUCOSE [id number] 17:23:00 Test Item Value Reference Range Interpretation Comments POC-GLUCOSE METER 273 mg/dL 70-110 H TESTED AT [place] [address] ([facility]) (test code = [place] 1538) 01190 POCT-GLUCOSE [id number] 12:33:00 Test Item Value Reference Range Interpretation Comments POC-GLUCOSE METER 107 mg/dL 70-110 TESTED AT [place] [address] ([facility]) (test code = [place] 1538) 8[address] BASIC METABOLIC [id number] 08:59:00 Test Item Value Reference Range Interpretation [...] 0-0 (BEAKER) (test code = 413) POCT-GLUCOSE [id number] 21:40:00 Test Item Value Reference Range Interpretation Comments POC-GLUCOSE METER 137 mg/dL 70-[address] [facility] 67 ([facility]) (test code = [facility] 1538) 39496 POCT-GLUCOSE [id number] 18:27:00 Test Item Value Reference Range Interpretation Comments POC-GLUCOSE METER 219 mg/dL 70-110 H TESTED AT [place] [address] (BEAKER) (test code = [place] 1538) [address] POCT-GLUCOSE [id number] 13:10:00 Test Item Value Reference Range Interpretation Comments POC-GLUCOSE METER 168 mg/dL 70-110 H TESTED AT [place] [address] (BEAKER) (test code = CIERA [place]ell [facility] 1538) 71266 POCT-GLUCOSE [id number] 10:22:00 Test Item Value Reference Range Interpretation Comments POC-GLUCOSE METER 161 mg/dL 70-110 H TESTED AT [place] [address] (BEAKER) (test code = CIERA [place] [facility] 1538) 16320 BASIC METABOLIC [id number] 04:41:00 Test Item Value Reference Range Interpretation [...] S NOT APPLICABLE FOR DIALYSIS PATIEN TS. [id number] 04:40:00 Test Item Value Reference Range Interpretation [...] 0-0 (BEAKER) (test code = 413) POCT-GLUCOSE [id number] 21:42:00 Test Item Value Reference Range Interpretation Comments POC-GLUCOSE METER 176 mg/dL 70-110 H TESTED AT [place] [address] ([facility]) (test code = [place] 1538) [address] POCT-GLUCOSE [id number] 14:38:00 Test Item Value Reference Range Interpretation Comments POC-GLUCOSE METER 179 mg/dL 70-110 H TESTED AT [place] [address] ([facility]) (test code = [facility]ER[facility] [place] [facility] 1538) 93094 POCT-GLUCOSE [id number] 09:07:00 Test Item Value Reference Range Interpretation Comments POC-GLUCOSE METER 155 mg/dL 70-110 H TESTED AT [place] [address] ([facility]) (test code = [facility]ER[facility] [place] [facility] 1538) 62335 BASIC METABOLIC [id number] 07:49:00 Test Item Value Reference Range Interpretation [...] S NOT APPLICABLE FOR DIALYSIS PATIEN TS. [id number] 07:44:00 Test Item Value Reference Range Interpretation [...] RED BLOOD CELLS 0 /100 WBC 0-0 [facility] (test code = 413) POCT-GLUCOSE [id number] 22:34:00 Test Item Value Reference Range Interpretation Comments POC-GLUCOSE METER 246 mg/dL 70-110 H TESTED AT [place] [address] ([facility]) (test code = [facility] 1538) 12440 POCT-GLUCOSE [id number] 18:15:00 Test Item Value Reference Range Interpretation Comments POC-GLUCOSE METER 201 mg/dL 70-110 H TESTED AT [place] [address] ([facility]) (test code = [facility] 1538) 32402 POCT-GLUCOSE [id number] 13:12:00 Test Item Value Reference Range Interpretation Comments POC-GLUCOSE METER 211 mg/dL 70-110 H TESTED AT [place] [address] ([facility]) (test code = [facility] 1538) 45711 POCT-GLUCOSE [id number] 08:17:00 Test Item Value Reference Range Interpretation Comments POC-GLUCOSE METER 204 mg/dL 70-110 H TESTED AT [place] [address] ([facility]) (test code = [facility] 1538) 45012 BASIC METABOLIC [id number] 08:05:00 Test Item Value Reference Range Interpretation [...] S NOT APPLICABLE FOR DIALYSIS PATIEN TS. [id number] 08:04:00 Test Item Value Reference Range Interpretation [...] 0-0 (BEAKER) (test code = 413) POCT-GLUCOSE [id number] 22:17:00 Test Item Value Reference Range Interpretation Comments POC-GLUCOSE METER 154 mg/dL 70-[address] [facility] 6720 (BEAKER) (test code = [place] 1538) [address] POCT-GLUCOSE [id number] 22:14:00 Test Item Value Reference Range Interpretation Comments POC-GLUCOSE METER 172 mg/dL 70-[address] [facility] 6720 (BEAKER) (test code = [place] 1538) [address]75 POCT-GLUCOSE [id number] 17:34:00 Test Item Value Reference Range Interpretation Comments POC-GLUCOSE METER 187 mg/dL 70-[address] [facility] 6720 (BEAKER) (test code = [facility] 1538) 86029 POCT-GLUCOSE [id number] 12:28:00 Test Item Value Reference Range Interpretation Comments POC-GLUCOSE METER 192 mg/dL 70-110 H TESTED AT [place] [id number] (BEAKER) (test code = [facility] 1538) 54190 POCT-GLUCOSE [id number] 07:43:00 Test Item Value Reference Range Interpretation Comments POC-GLUCOSE METER 132 mg/dL 70-110 H TESTED AT [place] [address] (BEAKER) (test code = [facility] 1538) 87555 POCT-GLUCOSE [id number] 21:47:00 Test Item Value Reference Range Interpretation Comments POC-GLUCOSE METER 255 mg/dL 70-110 H TESTED AT [place] [address] ([facility] (test code = [facility] 1538) 74222 POCT-GLUCOSE [id number] 11:45:00 Test Item Value Reference Range Interpretation Comments POC-GLUCOSE METER 159 mg/dL 70-110 H TESTED AT [place] [address] (BEAKER) (test code = [facility] 1538) 69037 [id number] 11:17:00 Test Item Value Reference Range Interpretation [...] 20-55 L (test code = 2590) POCT-GLUCOSE [id number] 08:44:00 Test Item Value Reference Range Interpretation Comments POC-GLUCOSE METER 170 mg/dL 70-110 H TESTED AT [place] [address] (BEAKER) (test code = [facility] 1538) 41352 BASIC METABOLIC [id number] 04:42:00 Test Item Value Reference Range Interpretation [...] S NOT APPLICABLE FOR DIALYSIS PATIEN TS. [id number] 03:47:00 Test Item Value Reference Range Interpretation Comments MAGNESIUM (BEAKER) (test code = 2.1 mg/dL 1.6-2.6 627) CBC W/PLT COUNT & AUTO [id number] 03:36:00 Test Item Value Reference Range Interpretation [...] PERCENT (BEAKER) (test code = 2801) POCT-GLUCOSE [id number] 22:05:00 Test Item Value Reference Range Interpretation Comments POC-GLUCOSE METER 91 mg/dL 70-110 TESTED AT [place] [address] ([facility]) (test code = [facility] [place] [facility] [address] 1538) POCT-GLUCOSE [id number] 18:37:00 Test Item Value Reference Range Interpretation Comments POC-GLUCOSE METER 102 mg/dL 70-110 TEST[facility] AT [place] [address] ([facility] (test code = [facility] [place] [facility] 1538) 31000 POCT-GLUCOSE [id number] 12:26:00 Test Item Value Reference Range Interpretation Comments POC-GLUCOSE METER 113 mg/dL 70-110 H TESTED AT [place] [address] ([facility] (test code = [facility] [place] [facility] 1538) 95120 POCT-GLUCOSE [id number] 08:07:00 Test Item Value Reference Range Interpretation Comments POC-GLUCOSE METER 73 mg/dL 70-[address] [facility] 6720 (BEAKER) (test code = [place] [address] 1538) BLOOD [id number] 08:01:00 Test Item Value Reference Range Interpretation Comments CULTURE (BEAKER) (test No growth in 5 days code = 1095) BLOOD [id number] 08:01:00 Test Item Value Reference Range Interpretation Comments CULTURE (BEAKER) (test No growth in 5 days code = 1095) CBC W/PLT COUNT & AUTO [id number] 06:59:00 Test Item Value Reference Range Interpretation [...] (BEAKER) (test code = 2801) BASIC METABOLIC [id number] 06:27:00 Test Item Value Reference Range Interpretation [...] S NOT APPLICABLE FOR DIALYSIS PATIEN TS. [id number] 06:18:00 Test Item Value Reference Range Interpretation Comments MAGNESIUM (BEAKER) 1.6 mg/dL 1.6-2.6 Specimen slightly (test code = 627) hemolyzed URINALYSIS W/ REFLEX URINE [id number] 23:41:00 Test Item Value Reference Range Interpretation [...] 516) SOURCE(BEAKER) (test code = 2795) POCT-GLUCOSE [id number] 21:42:00 Test Item Value Reference Range Interpretation Comments POC-GLUCOSE METER 139 mg/dL 70-110 H TESTED AT [place] [address] [facility] ([facility] = [facility] 1538) 33881 POCT-GLUCOSE [id number] 20:39:00 Test Item Value Reference Range Interpretation Comments POC-GLUCOSE METER 65 mg/dL 70-110 L TESTED AT [place] [address] ([facility] (test code = [facility] [place] [facility] [address] 1538) POCT-GLUCOSE [id number] 17:54:00 Test Item Value Reference Range Interpretation Comments POC-GLUCOSE METER 78 mg/dL 70-110 TESTED AT [place] [address] ([facility] (test code = [facility] [place] [facility] [address] 1538) CBC W/PLT COUNT & AUTO [id number] 10:44:00 Test Item Value Reference Range Interpretation [...] 3438) Received comment: User comments: Slide comments:POCT-GLUCOSE [id number] 07:50:00 Test Item Value Reference Range Interpretation Comments POC-GLUCOSE METER 70 mg/dL 70-[address] [facility] 6720 (BEAKER) (test code = [facility] [place] [facility] [address] 1538) BASIC METABOLIC [id number] 06:36:00 Test Item Value Reference Range Interpretation [...] S NOT APPLICABLE FOR DIALYSIS PATIEN TS. [id number] 06:33:00 Test Item Value Reference Range Interpretation Comments MAGNESIUM (BEAKER) (test code = 2.2 mg/dL 1.6-2.6 627) POCT-GLUCOSE [id number] 22:28:00 Test Item Value Reference Range Interpretation Comments POC-GLUCOSE METER 120 mg/dL 70-[address] [facility] 6720 (BEAKER) (test code = [facility] 1538) 64256 POCT-GLUCOSE [id number] 19:33:00 Test Item Value Reference Range Interpretation Comments POC-GLUCOSE METER 166 mg/dL 70-110 H TESTED AT [place] [address] (BEAKER) (test code = [facility] 1538) 61341 POCT-GLUCOSE [id number] 13:30:00 Test Item Value Reference Range Interpretation Comments POC-GLUCOSE METER 168 mg/dL 70-110 H TESTED AT [place] [address] (BEAKER) (test code = [facility] 1538) 95153 POCT-GLUCOSE [id number] 07:37:00 Test Item Value Reference Range Interpretation Comments POC-GLUCOSE METER 117 mg/dL 70-110 H TESTED AT [place] [address] (BEAKER) (test code = [facility] 1538) 04443 BASIC METABOLIC [id number] 06:57:00 Test Item Value Reference Range Interpretation [...] S NOT APPLICABLE FOR DIALYSIS PATIEN TS. [id number] 06:52:00 Test Item Value Reference Range Interpretation [...] 0-0 (BEAKER) (test code = 413) POCT-GLUCOSE [id number] 21:52:00 Test Item Value Reference Range Interpretation Comments POC-GLUCOSE METER 174 mg/dL 70-[address] [facility] 6720 [facility] (test code = [place] 1538) [id number] POCT-GLUCOSE [id number] 17:58:00 Test Item Value Reference Range Interpretation Comments POC-GLUCOSE METER 151 mg/dL 70-[address] [facility] [address] (BEAKER) (test code = [place] 1538) [id number] POCT-GLUCOSE [id number] 12:35:00 Test Item Value Reference Range Interpretation Comments POC-GLUCOSE METER 225 mg/dL 70-110 H TESTED AT [place] [address] ([facility] (test code = [place] [facility] 1538) [address] HEMOGLOBIN [id number] 08:34:00 Test Item Value Reference Range Interpretation Comments HEMOGLOBIN A1C (BEAKER) (test code = 6.3 % 4.3-6.1 H 368) POCT-GLUCOSE [id number] 07:56:00 Test Item Value Reference Range Interpretation Comments POC-GLUCOSE METER 141 mg/dL 70-110 H TESTED AT [place] [address] ([facility] (test code = [place] [facility] 1538) [address] CBC (HEMOGRAM ONLY)2019-05-28 06:12:00 Test Item Value [...] (BEAKER) (test code = 413) BASIC METABOLIC [id number] 06:02:00 Test Item Value Reference Range Interpretation [...] NOT APPLICABLE FOR DIALYSIS PATIEN TS. POCT-GLUCOSE [id number] 22:24:00 Test Item Value Reference Range Interpretation Comments POC-GLUCOSE METER 171 mg/dL 70-[address] [facility] [address] ([facility]) (test code = [place] [facility] 1538) [address] HEPATITIS B [id number] 20:01:00 Test Item Value Reference Range Interpretation Comments HEPATITIS B CORE TOTAL ANTIBODY Nonreactive Nonreactive (BEAKER) (test code = 497) HEPATITIS B SURFACE ANTIBODY < mIU/mL <8.0 ([facility]) (test code = 647) HEPATITIS B SURFACE ANTIGEN (2) Nonreactive Nonreactive [facility] (test code = 2585) POCT-GLUCOSE [id number] 17:37:00 Test Item Value Reference Range Interpretation Comments POC-GLUCOSE METER 158 mg/dL 70-[address] [facility] 6720 ([facility]) (test code = [facility] 1538) [id number] CBC (HEMOGRAM ONLY)2019-05-27 16:37:00 Test Item Value [...] (BEAKER) (test code = 413) BASIC METABOLIC [id number] 16:28:00 Test Item Value Reference Range Interpretation [...] NOT APPLICABLE FOR DIALYSIS PATIEN TS. POCT-GLUCOSE [id number] 12:29:00 Test Item Value Reference Range Interpretation Comments POC-GLUCOSE METER 155 mg/dL 70-[address] [facility] 6720 (BEAKER) (test code = [facility] 1538) [id number] 09:20:00 Test Item Value Reference Range Interpretation Comments PHOSPHORUS (BEAKER) (test code = 3.4 mg/dL 2.3-4.7 604) [id number] 09:20:00 Test Item Value Reference Range Interpretation Comments MAGNESIUM (BEAKER) (test code = 2.0 mg/dL 1.6-2.6 627) PH, [id number] 08:49:00 Test Item Value Reference Range Interpretation Comments PH ARTERIAL (BEAKER) (test code = 383) 7.35 7.35-7.45 POCT-GLUCOSE [id number] 08:11:00 Test Item Value Reference Range Interpretation Comments POC-GLUCOSE METER 137 mg/dL 70-[address] [facility] 67[facility] (test code = [facility] 1538) [address] BASIC METABOLIC [id number] 03:25:00 Test Item Value Reference Range Interpretation [...] PATIEN TS. CBC W/PLT COUNT & AUTO [id number] 03:11:00 Test Item Value Reference Range Interpretation [...] H PERCENT (BEAKER) (test code = 2801) [id number] 02:48:00 Test Item Value Reference Range Interpretation Comments MAGNESIUM (BEAKER) 2.2 mg/dL 1.6-2.6 Specimen slightly (test code = 627) hemolyzed [id number] 02:48:00 Test Item Value Reference Range Interpretation Comments PHOSPHORUS (BEAKER) 3.9 mg/dL 2.3-4.7 Specimen slightly (test code = 604) hemolyzed PH, [id number] 02:08:00 Test Item Value Reference Range Interpretation Comments PH ARTERIAL (BEAKER) (test code = 383) 7.41 7.35-7.45 RAD, CHEST, 1 VIEW, NON [id number] 22:15:00Reason for exam:->line placementShould this be performed [...] Stable surgical changes.Additional findings: None. Signed: Marya Arredondoort Verified Date/Time: 05/26/2019 22:15:38 BASI METABOLIC [id number] 17:25:00 Test Item Value Reference Range Interpretation [...] NOT APPLICABLE FOR DIALYSIS PATIEN TS. POCT-GLUCOSE [id number] 17:09:00 Test Item Value Reference Range Interpretation Comments POC-GLUCOSE METER 233 mg/dL 70-[address] [facility] 6720 ([facility]) (test code = [facility] 1538) [id number] TROPONIN [id number] 12:31:00 Test Item Value Reference Range Interpretation [...] failure, acidosis, acute neurological disease, and persistent tachyarrhythmia.[id number] 12:26:00 Test Item Value Reference Range Interpretation Comments CALCIUM (BEAKER) (test code = 697) 7.7 mg/dL 8.4-10.2 L [id number] 12:24:00 Test Item Value Reference Range Interpretation Comments POTASSIUM (BEAKER) (test code = 4.4 meq/L 3.5-5.1 379) [id number] 12:24:00 Test Item Value Reference Range Interpretation Comments MAGNESIUM (BEAKER) (test code = 2.2 mg/dL 1.6-2.6 627) [id number] 12:24:00 Test Item Value Reference Range Interpretation Comments SODIUM (CONRAD) (test code = 381) 128 meq/L 136-145 L POCT-GLUCOSE [id number] 12:15:00 Test Item Value Reference Range Interpretation Comments POC-GLUCOSE METER 281 mg/dL 70-[address] [facility] 6720 (CONRAD) (test code = [facility] 1538) [address] PH, [id number] 11:52:00 Test Item Value Reference Range Interpretation Comments PH ARTERIAL (CONRAD) (test code = 383) 7.36 7.35-7.45 RAD, CHEST, 1 VIEW, NON [id number] 08:05:00Reason for exam:->central line placementFINAL REPORT CLINICAL [...] cardiomediastinal silhouette with sternotomy wires. Signed: [facility] Verified Date/Time:05/26/2019 08:05:54 Reading Location: [address] Neuro Reading Room TROPONIN [id number] 06:42:00 Test Item Value Reference Range Interpretation [...] acidosis, acute neurological disease, and persistent tachyarrhythmia.TROPONIN [id number] 06:41:00 Test Item Value Reference Range Interpretation [...] acute neurological disease, and persistent tachyarrhythmia.BASIC METABOLIC [id number] 06:23:00 Test Item Value Reference Range Interpretation [...] NOT APPLICABLE FOR DIALYSIS PATIEN TS. PROTHROMBIN [id number] 06:20:00 Test Item Value Reference Range Interpretation [...] INR is2.5-3.5 for patients wiht mechanical heart valves.[id number] 06:17:00 Test Item Value Reference Range Interpretation Comments PHOSPHORUS (BEAKER) (test code = 4.5 mg/dL 2.3-4.7 604) [id number] 06:17:00 Test Item Value Reference Range Interpretation Comments MAGNESIUM (BEAKER) (test code = 2.4 mg/dL 1.6-2.6 627) CBC W/PLT COUNT & AUTO [id number] 06:03:00 Test Item Value Reference Range Interpretation [...] (test code = 2801) TSH/FREE T4 IF [id number] 22:17:00 Test Item Value Reference Range Interpretation Comments THYROID STIMULATING HORMONE 3.33 uIU/mL 0.35-4.94 (BEAKER) (test code = 772) TROPONIN [id number] 21:59:00 Test Item Value Reference Range Interpretation [...] H (BEAKER) (test code = 700) C-REACTIVE [id number] 21:51:00 Test Item Value Reference Range Interpretation Comments C-REACTIVE PROTEIN (BEAKER) (test 13.88 mg/dL 0.00-0.50 H code = 676) COMPREHENSIVE METABOLIC [id number] 21:51:00 Test Item Value Reference Range Interpretation [...] PATIEN TS. CBC W/PLT COUNT & AUTO [id number] 21:20:00 Test Item Value Reference Range Interpretation [...] 0-1 H PERCENT (BEAKER) (test code = 5176)
[2022-03-01 20:30] LABS: Absolute Lymphocytes (CBC) 0.3 K/uL (0.7-4.9); Hematocrit 32.7 % (39.6-49.0); Lymphocytes % 4.3 % (15.3-44.8); RBC Red Blood Cell Count 3.42 M/uL (4.33-5.43)
--- NOTE | 2022-03-01 21:06 | RAD REPORT ---
EXAM DESCRIPTION: RAD - Chest Single View - 03/01/2022 8:50 pm CLINICAL HISTORY: DYSPNEA COMPARISON: Chest Single View dated 02/15/2022; Chest Pa And Lat (2 Views) dated 02/06/2022; Chest Sing le View dated 07/28/2021; Chest Pa And Lat (2 Views) dated 07/17/2021 FINDINGS: Lines: None. Lungs: Widespread bilateral pulmonary opacities, right greater than left. Pleural: Large right pleural effusion which is increased in size. Left pleural effusion. Cardiac: Severe cardiomegaly. Defibrillator. Bones: No acute fractures. Sternotomy. Other: IMPRESSION: Pulmonary edema with increased moderate to large right pleural effusion.
[2022-03-01 21:20] LABS: BUN Blood Urea Nitrogen 20 mg/dL (7-18); Bicarbonate 34 mmol/L (21-32); Glomerular Filtration Rate 13 mL/min (=/>90); Glucose Level 120 mg/dL (74-106); Potassium 3.4 mmol/L (3.5-5.1); Sodium Level 138 mmol/L (136-145)
[2022-03-01 21:21] LABS: NT PRO-BNP > 175000 pg/mL (<125)
[2022-03-01 21:22] LABS: Troponin High Sensitivity 108.1 pg/mL (<58.9)
[2022-03-01 21:41] LABS: Blood Morphology Comment NOT SEEN (NOT SEEN); Platelet Estimate DECR; White Blood Cell Scan OK (OK)
--- NOTE | 2022-03-01 22:24 | EDPHYS ---
Physician Documentation [facility] Name: Benji Villalpando Age: 66 yrs Sex: Male : 1955 Arrival Date: 03/01/2022 Time: 19:07 Bed 26 Private MD: ED Physician Eugene Simons HPI: 03/01 21:56 This 66 yrs old Male presents to ER via EMS with complaints of Shortness Of jr8 Breath, Back Pain. 21:56 Severity of symptoms: At their worst the symptoms were moderate in the emergency jr8 department the symptoms are unchanged. It is unknown whether or not the patient has had similar symptoms in the past. The patient has not recently seen a physician. Daughter of patient stated that he has had increased shortness of breath at rest and with any sort of exertion. 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 Having long periods of apnea as well which is new. Also having harder time getting on dialysis because of a broke back. History of ascites and pleural effusion that requires draining. Concerned that the effusion are back and worsening . Historical: - Allergies: 19:12 No Known Allergies; ld1 - PMHx: 19:12 Anemia; CHF; chronic kidney disease; Diabetes - NIDDM; Dialysis T-T-S; Hyperlipidemia; ld1 Hypertension; Hypothyroidism; Myocardial infarction; RENAL FAILURE; - PSHx: 19:12 fistula; heart bypass; pacemaker; ld1 - Immunization history:: Adult Immunizations up to date, Client reports receiving the 2nd dose of the Covid vaccine. - Social history:: Smoking status: Patient denies any tobacco usage or history of. Patient/guardian denies using alcohol. ROS: 21:56 Eyes: Negative for injury, pain, redness, and discharge, ENT: Negative for injury, jr8 pain, and discharge, Neck: Negative for injury, pain, and swelling, Cardiovascular: Negative for chest pain, palpitations, and edema, Back: Positive for pain MS/Extremity: Negative for injury and deformity, Skin: Negative for injury, rash, and discoloration, Neuro: Negative for headache, weakness, numbness, tingling, and seizure. 21:56 Respiratory: Positive for orthopnea, shortness of breath, at rest. 21:56 Abdomen/GI: Positive for abdominal distension, Negative for abdominal pain, nausea, vomiting, and diarrhea, constipation. Exam: 21:56 Eyes: Pupils equal round and reactive to light, extra-ocular motions intact. Lids and jr8 lashes normal. Conjunctiva and sclera are non-icteric and not injected. Cornea within normal limits. Periorbital areas with no swelling, redness, or edema. ENT: Nares patent. No nasal discharge, no septal abnormalities noted. Tympanic membranes are normal and external auditory canals are clear. Oropharynx with no redness, swelling, or masses, exudates, or evidence of obstruction, uvula midline. Mucous membranes moist. Neck: Trachea midline, no thyromegaly or masses palpated, and no cervical lymphadenopathy. Supple, full range of motion without nuchal rigidity, or vertebral point tenderness. No Meningismus. Cardiovascular: Regular rate and rhythm with a normal S1 and S2. No gallops, murmurs, or rubs. Normal PMI, no JVD. No pulse deficits. Back: No spinal tenderness. No costovertebral tenderness. Full range of motion. Skin: Warm, dry with normal turgor. Normal color with no rashes, no lesions, and no evidence of cellulitis. MS/ Extremity: Pulses equal, no cyanosis. Neurovascular intact. Full, normal range of motion. Neuro: Awake and alert, GCS 15, oriented to person, place, time, and situation. Cranial nerves II-XII grossly intact. Motor strength 5/5 in all extremities. Sensory grossly intact. 21:56 Respiratory: Breath sounds: rales, that are mild, are located in both bases. 21:56 Abdomen/GI: Inspection: bruising, right lower quadrant and left lower quadrant, distension, that is mild, Bowel sounds: active, all quadrants, Palpation: abdomen is soft and non-tender, in all quadrants, Liver: no appreciated palpable abnormalities. Vital Signs: 19:11 BP 122 / 65; Pulse 69; Resp 18; Temp 98.7(TE); Pulse Ox 100% on R/A; Weight 70.31 kg; ld1 Height 5 ft. 7 in. (170.18 cm); Pain 8/10; 20:38 BP 120 / 72; Pulse 70; Resp 18; Pulse Ox 100% on R/A; ld1 19:11 Body Mass Index 24.28 (70.31 kg, 170.18 cm) ld1 MDM: 19:08 Patient medically screened. [facility] 22:21 Data reviewed: vital signs, nurses notes, lab test result(s), EKG, radiologic studies, jr8 plain films. Data interpreted: Pulse oximetry: on room air is 100 %. Interpretation: normal. Counseling: I had a detailed discussion with the patient and/or guardian regarding: the historical points, exam findings, and any diagnostic results supporting the discharge/admit diagnosis, lab results, radiology results, the need for further work-up and treatment in the hospital. 03/01 20:01 Order name: Basic Metabolic Panel; Complete Time: 21:29 [facility] 03/01 20:01 Order name: CBC with Diff; Complete Time: 21:42 [facility] 03/01 20:01 Order name: NT PRO-BNP; Complete Time: :29 [facility] 03/01 20:01 Order name: Troponin HS; Complete Time: 21:29 [facility] 03/01 21:41 Order name: CBC Smear Scan; Complete Time: 21:42 [facility] 03/01 22:51 Order name: COVID-19/FLU A+B (Document "Date of Onset" if Symptomatic); Complete Time: mw2 00:18 03/02 00:04 Order name: LFT's; Complete Time: 02:25 la03/02 00:04 Order name: AMMONIA; Complete Time: 02:24 la03/02 00:04 Order name: PT-INR; Complete Time: 02:24 de1 03/02 05:28 Order name: CBC with Automated Diff; Complete Time: 07:38 [facility] 03/02 05:55 Order name: Troponin High Sensitivity; Complete Time: 07:38 [facility] 03/02 05:55 Order name: T4 Free; Complete Time: 07:38 [facility] 03/02 05:55 Order name: Thyroid Stimulating Hormone; Complete Time: 07:38 EDMS 03/02 09:27 Order name: Glucose, Ancillary Testing [facility] 03/01 20:01 Order name: XRAY Chest (1 view); Complete Time: 21:15 [facility] 03/01 20:01 Order name: EKG; Complete Time: 20:02 [facility] 03/01 20:01 Order name: Cardiac monitoring; Complete Time: 20:48 [facility] 03/01 20:01 Order name: EKG - Nurse/Tech; Complete Time: 20:48 [facility] 03/01 20:01 Order name: IV Saline Lock; Complete Time: 20:21 jr8 03/01 20:01 Order name: Labs collected and sent; Complete Time: 20:21 jr8 03/01 20:01 Order name: O2 Per Protocol; Complete Time: 20:21 jr8 03/01 20:01 Order name: O2 Sat Monitoring; Complete Time: 20:21 8 03/01 22:28 Order name: CT Chest Abdomen Pelvis W/O Contrast; Complete Time: 23:02 2 03/02 12:00 Order name: Glucose, Ancillary Testing EDMS 03/02 12:20 Order name: Troponin High Sensitivity EDMS Administered Medications: No medications were administered Disposition: 03/02 18:25 Co-signature as Attending Physician, Eugene Simons MD. rn Disposition Summary: 03/01/22 22:23 Hospitalization Ordered Provider: Marlyn Frias Condition: Stable jr8 Problem: new jr8 Symptoms: have improved jr8 Bed/Room Type: Standard [facility] Hospitalization Status: Inpatient Admission(03/01/22 23:11) jr8 Location: Telemetry/MedSurg (Inpatient)(03/02/22 12:13) dw Room Assignment: 205(03/02/22 12:13) dw Diagnosis - Pleural effusion, not elsewhere classified jr8 - Other ascites jr8 - Chronic kidney disease, stage 5 jr8 - Shortness of breath jr8 Forms: - Medication Reconciliation Form jr8 - SBAR form jr8 Signatures: Dispatcher [employer] [facility] Alexandrea Owusu RN RN dw Nieto, Roman, MD MD rn Roszak, Josh, PA PA jr8 Gregor Waller, WOODENWARE ASSEMBLER-C WOODENWARE ASSEMBLER-Cla1 Shruti Matthews RN RN ld1 Corrections: (The following items were deleted from the chart) 03/01 22:27 22:23 Telemetry/MedSurg (Inpatient) jr8 jr8 22:27 22:23 jr8 jr8 22:36 22:32 CT CHEST,ABD,PELVIS W/O ordered. EDWV EDWV 22:53 22:23 Inpatient Admission jr8 jr8 23:11 22:53 [facility] 03/02 12:13 03/01 22:27 [facility] ER HOLD jr8 04/26 12:13 0425 22:27 ERHOLD- jr8 dw
--- NOTE | 2022-03-01 22:24 | ER ---
[facility] Name: Benji Villalpando Age: 66 yrs Sex: Male : 1955 Arrival Date: 03/01/2022 Time: 19:07 Bed 26 Private MD: Diagnosis: Pleural effusion, not elsewhere classified;Other ascites;Chronic kidney disease, stage 5;Shortness of breath Presentation: 03/01 19:11 Chief complaint: Patient states: SOB due to fluid accumulating in abdomen \\T\\ back pain X ld1 3 weeks. Coronavirus screen: At this time, the client does not indicate any symptoms associated with coronavirus-19. Ebola Screen: No symptoms or risks identified at this time. Initial Sepsis Screen: Does the patient meet any 2 criteria? No. Patient's initial sepsis screen is negative. Does the patient have a suspected source of infection? No. Patient's initial sepsis screen is negative. Risk Assessment: Do you want to hurt yourself or someone else? Patient reports no desire to harm self or others. Onset of symptoms was March 01, 2022. 19:11 Method Of Arrival: EMS: [facility] ld1 19:11 Acuity: MILADYS 3 ld1 Triage Assessment: 19:12 General: Appears in no apparent distress. comfortable, Behavior is calm, cooperative, ld1 appropriate for age. Pain: Complains of pain in back Pain does not radiate. Pain currently is 9 out of 10 on a pain scale. EENT: No signs and/or symptoms were reported regarding the EENT system. Neuro: Level of Consciousness is awake, alert, obeys commands, Oriented to person, place, time, situation. Cardiovascular: Capillary refill < 3 seconds Patient's skin is warm and dry. Respiratory: Reports shortness of breath on exertion Airway is patent Respiratory effort is even, unlabored, Onset: The symptoms/episode began/occurred suddenly, the patient has mild shortness of breath. GI: Abdomen is round distended, non-distended. : No signs and/or symptoms were reported regarding the genitourinary system. Derm: No signs and/or symptoms reported regarding the dermatologic system. Musculoskeletal: No signs and/or symptoms reported regarding the musculoskeletal system. Historical: - Allergies: 19:12 No Known Allergies; ld1 - PMHx: 19:12 Anemia; CHF; chronic kidney disease; Diabetes - NIDDM; Dialysis T-T-S; Hyperlipidemia; ld1 Hypertension; Hypothyroidism; Myocardial infarction; RENAL FAILURE; - PSHx: 19:12 fistula; heart bypass; pacemaker; ld1 - Immunization history:: Adult Immunizations up to date, Client reports receiving the 2nd dose of the Covid vaccine. - Social history:: Smoking status: Patient denies any tobacco usage or history of. Patient/guardian denies using alcohol. Screenin:14 Abuse screen: Denies threats or abuse. Denies injuries from another. Nutritional ld1 screening: No deficits noted. Tuberculosis screening: No symptoms or risk factors identified. Fall Risk None identified. Assessment: 19:14 Reassessment: see triage assessment. Cardiovascular: Capillary refill < 3 seconds ld1 Patient's skin is warm and dry. Rhythm is regular. Respiratory: Airway is patent Respiratory effort is even, unlabored, Breath sounds are clear bilaterally. GI: GI: Abdomen is round distended. 20:26 Reassessment: Patient appears in no apparent distress at this time. Patient and/or jb4 family updated on plan of care and expected duration. Pain level reassessed. Patient is alert, oriented x 3, equal unlabored respirations, skin warm/dry/pink. 21:23 Reassessment: Patient and/or family updated on plan of care and expected duration. Pain jb4 level reassessed. Patient is alert, oriented x 3, equal unlabored respirations, skin warm/dry/pink. Pt desat to 58%. Pt's family member reports pt has apneic periods when sleeping. Pt denies chest pain or discomfort, SOB, or Dyspnea. Provider notified, no new orders at this time. Sats returned to 96% once awake. 22:30 Reassessment: Patient appears in no apparent distress at this time. Patient and/or jb4 family updated on plan of care and expected duration. Pain level reassessed. Patient is alert, oriented x 3, equal unlabored respirations, skin warm/dry/pink. Vital Signs: 19:11 BP 122 / 65; Pulse 69; Resp 18; Temp 98.7(TE); Pulse Ox 100% on R/A; Weight 70.31 kg; ld1 Height 5 ft. 7 in. (170.18 cm); Pain 8/10; 20:38 BP 120 / 72; Pulse 70; Resp 18; Pulse Ox 100% on R/A; ld1 19:11 Body Mass Index 24.28 (70.31 kg, 170.18 cm) ld1 ED Course: 19:07 Patient arrived in ED. ld1 19:08 Son Parrish PA is PHCP. jr8 19:08 Eugene Simons MD is Attending Physician. jr8 19:12 Triage completed. ld1 19:12 Arm band placed on right wrist. ld1 19:14 Patient has correct armband on for positive identification. Placed in gown. Bed in low ld1 position. Call light in reach. Side rails up X2. pickle pumper on. Pulse ox on. NIBP on. Door closed. Noise minimized. Warm blanket given. 19:14 No provider procedures requiring assistance completed. ld1 19:27 Jeffry Morales, RN is Primary Nurse. jb4 19:27 Initial lab(s) drawn, by me. Inserted saline lock: 18 gauge in right antecubital area, jb4 using aseptic technique. Blood collected. 20:52 XRAY Chest (1 view) In Process Unspecified. EDMS 22:22 Xavier Simons MD is Hospitalizing Provider. jr8 22:23 Marlyn Frias MD is Hospitalizing Provider. jr8 22:46 CT Chest Abdomen Pelvis W/O Contrast In Process Unspecified. EDMS 23:01 COVID-19/FLU A+B (Document "Date of Onset" if Symptomatic) Sent. ld1 Administered Medications: No medications were administered Outcome: 22:23 Decision to Hospitalize by Provider. jr8 03/02 15:04 Patient left the ED. aa5 Signatures: Dispatcher [employer] EDMS Sunni Ramirez, RN RN aa5 Son Parrish PA PA jr8 Jeffry Morales, RN RN jb4 Shruti Matthews RN RN ld1
--- NOTE | 2022-03-01 22:58 | RAD REPORT ---
EXAM DESCRIPTION: CTChest Abd Pelvis Wo Con - 03/01/2022 10:45 pm CLINICAL HISTORY: Dyspnea COMPARISON: Chest Abd Pelvis Wo Con dated 02/05/2022; Chest Abd Pelvis Wo Con dated 05/25/2019; THORAX WO CONTRAST dated 03/03/2015; THORAX WO CONTRAST dated 02/27/2015 TECHNIQUE: CT of the chest, abdomen, and pelvis was performed. All CT scans are performed using dose optimization technique as appropriate and may include automated exposure control or mA/KV adjustment according to patient size. FINDINGS: Thorax: Chest Wall: No abnormal mass Battery pack in the left chest wall. Lungs: Atelectasis as a result of the effusions. Pleura: Moderate to large right pleural effusion. Small left pleural effusion. Girs/Mediastinum: No lymphadenopathy. Aorta/Pulmonary Arteries: Unremarkable Heart: Cardiomegaly. Multi-vessel coronary artery disease. Abdomen/Pelvis: Liver: No acute abnormality or suspicious lesions. Biliary: No biliary ductal dilatation. Stomach: No significant focal abnormality. Duodenum: No significant focal abnormality. 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 The largest measures 11 millimeters. No pancreatic ductal di latation. The pancreas is atrophic. Spleen: No significant abnormality. Adrenal: No suspicious lesions. Kidney/ureter: No hydronephrosis. No renal calculi. Retroperitoneum: No retroperitoneal adenopathy. Vascular: No aneurysm. Atherosclerosis Bowel: No significant focal abnormality. Peritoneum: Large volume of ascites. Bladder: Grossly unremarkable. Reproductive: No adnexal masses. Bones: No acute fracture. Sternotomy. Remote right upper to ring fracture. Osteopenia. Battery pack i n left chest wall. Other: n/a IMPRESSION: Anasarca including moderate to large right and small left pleural effusions, large volum e of ascites, and body wall edema. No other acute findings identified.
[2022-03-02 00:02] LABS: SARS-COV-2 RT PCR NEGATIVE (NEGATIVE)
--- NOTE | 2022-03-02 00:22 | P.HP ---
Certification for Inpatient Patient admitted to: Inpatient With expected LOS: >2 Midnights Patient will require the following post-hospital care: None Practitioner: I am a practitioner with admitting privileges, knowledge of patient current condition, hospital course, and medical plan of care. Services: Services provided to patient in accordance with Admission requirements found in Title 42 Section 412.3 of the Code of Federal Regulations Patient History Date of Service: 03/02/22 Reason for admission: Anasarca, CHF exacerbation History of Present Illness: 66-year-old male with history of ESRD on HD, chronic systolic congestive heart failure, diabetes type 2insulin-dependent, hypertension, hyperlipidemia, hypothyroidism, CAD with previous CABG presents emergency department for shortness of breath. Patient with issues related to volume management given his ESRD, CHF and recently diagnosis cirrhosis of liver with ascites. Patient with large volume ascites, moderate to large right pleural effusion, small left pleural effusion, anasarca, dyspnea. His troponin was also moderately elevated BNP significantly elevated he is currently on home oxygen at 2 L per nasal cannula his COVID test was negative today, positive during previous admission. Patient was also recently seen for a 40% T12 compression fracture evaluated by neurosurgery who determined patient was not a candidate for surgical intervention given his multiple comorbid medical problems. ED provider wishes to admit for further evaluation and management of anasarca, CHF, pleural effusions. Allergies No Known Drug Allergies Allergy (Verified 02/06/22 04:59) Unknown Home Medications: Aspirin Chewable [Aspirin Chewable*] 81 mg PO DAILY 04/08/19 Atorvastatin Calcium 40 mg PO DAILY 04/08/19 Clopidogrel Bisulfate [Clopidogrel] 75 mg PO DAILY 04/08/19 Linagliptin [Tradjenta] 5 mg PO DAILY 04/08/19 Levothyroxine [Synthroid*] 125 mcg PO [id number] 07/17/21 Insulin Glargine,Hum.rec.anlog [Basaglar Kwikpen U-100] 10 unit SQ BEDTIME 12/01/21 Midodrine HCl 1 tab PO DIRECTED 02/03/22 Ondansetron [Zofran*] 4 mg IV Q6HP PRN vial 02/08/22 Pharmacy Consult 1 ea XX DAILYPRN PRN each 02/08/22 predniSONE [Prednisone*] 20 mg PO BID #11 tab 02/08/22 - Past Medical/Surgical History Diabetic: Yes -: IDDM -: HTN -: hyperlipidemia -: MO -: anemia -: ESRD on HD -: Cirrhosis -: Pleural effusions -: cardiac stents -: CABG Psychosocial/ Personal History: Lives at home with his - Family History Father -: Diabetes Mother -: Diabetes Notes: no hx of illness Sister -: Diabetes Notes: 2 sisters, both from complications of diabetes - Social History Smoking Status: Never smoker Alcohol use: No CD- Drugs: No Caffeine use: No Place of Residence: Home Review of Systems 10-point ROS is otherwise unremarkable Respiratory: Shortness of Breath, SOB with Excertion Musculoskeletal: Back Pain Physical Examination - Physical Exam General: Alert, In no apparent distress, Oriented x3, Obese HEENT: Atraumatic, PERRLA, Mucous membr. moist/pink, EOMI, Sclerae nonicteric Neck: Supple, 2+ carotid pulse no bruit, No LAD, Without JVD or thyroid abnormality Respiratory: Diminished, Crackles/rales Cardiovascular: Regular rate/rhythm, Normal S1 S2, Edema Capillary refill: <2 Seconds Gastrointestinal: Normal bowel sounds, No tenderness, Ascites Musculoskeletal: No tenderness Integumentary: No rashes Neurological: Normal speech, Normal strength at 5/5 x4 extr, Normal tone, Normal affect - Studies Laboratory Data (last 24 hrs) 03/01/22 19:27: WBC 6.6, Hgb 10.6 L, Hct 32.7 L, Plt Count 154 03/01/22 19:27: Sodium 138, Potassium 3.4 L, BUN 20 H, Creatinine 4.66 H, Glucose 120 H Assessment and Plan - Plan Assessment: Acute on chronic systolic congestive heart failure Dyspnea, anasarca, moderate to large right pleural effusion, small left pleural effusion Large volume ascites history of cirrhosis ESRD on HD Diabetes type 2insulin-dependent Hypertension Hyperlipidemia Hypothyroidism CAD with previous CABG T12 compression fracture Plan: Acute on chronic systolic congestive heart failure: Patient will need to have volume status managed with dialysis, nephrology consulted for additional assistance, patient family reports they have been having difficulty with his volume status and dialysis, he last had dialysis on Tuesday did complete his treatment. We will also trend troponin and monitor on telemetry suspect demand ischemia if patient has worsening elevations in troponin or chest pain will consider cardiology consult. Home medications continuedPlavix Dyspnea, anasarca, moderate to large right pleural effusion, small left pleural effusion: Worsening pleural effusions, patient on home oxygen 2 L saturating in the 90s at this time but does desat when sleeping suspect obstructive sleep apnea. Pulmonology consulted to determine if patient is a candidate for having thoracentesis versus management with dialysis. Large volume ascites history of cirrhosis: Son reports patient has been requiring more frequent abdominal paracentesis also reports recent diagnosis of cirrhosis of the liver unknown etiology patient was not previously alcoholic does not drink alcohol no known history of hepatitis. Son reports patient had typically been requiring paracentesis on a monthly basis but now is requiring more frequently. Appreciate further input from GI, unable to have paracentesis today possibly tomorrow depending on availability of service. ESRD on HD: Nephrology consulted for assistance with volume management Diabetes type 2insulin-dependent: ACH is Accu-Chek, sliding scale insulin Hypertension: Continue home meds Hyperlipidemia:Continue home meds Hypothyroidism:Continue home meds CAD with previous CABG:Continue home meds T12 compression fracture: Patient deemed not a candidate for surgery given his comorbid medical problems, physical therapy consult in place continue pain medicationNorco. Patient was offered rehab/SNF when discharged from [facility], son reports that patient declined at that time but he is requiring more assistance will reevaluate possibility of SNF/rehab at discharge. DVT PPX: Heparin Code status: DNR Discharge Plan: Home Plan to discharge in: Greater than 2 days - Advance Directives Does patient have a Living Will: No Does patient have a Durable POA for Healthcare: No - Code Status/Comfort Care Code Status Assessed: Yes (DNR) Critical Care: No Time Spent Managing Pts Care (In Minutes): 55
[2022-03-02] MEDS ORDERED: ONDANSETRON 4 MG/2 ML VIAL IV PRN (00:29)
[2022-03-02 02:13] LABS: Protime INR 1.12
[2022-03-02 02:24] LABS: Albumin 2.7 g/dL (3.4-5.0); Bilirubin Direct 0.4 mg/dL (0-0.2); Bilirubin Total 0.8 mg/dL (0.2-1.0); Protein, Total 6.6 g/dL (6.4-8.2)
[2022-03-02 05:27] LABS: Absolute Lymphocytes (CBC) 0.4 K/uL (0.7-4.9); Hematocrit 31.6 % (39.6-49.0); Lymphocytes % 5.8 % (15.3-44.8); MPV 8.9 fL (7.6-11.3); RBC Red Blood Cell Count 3.23 M/uL (4.33-5.43)
[2022-03-02 05:55] LABS: Thyroid Stimulating Hormone 5.65 uIU/mL (0.360-3.740); Troponin High Sensitivity 89.5 pg/mL (<58.9)
[2022-03-02] MEDS: LEVOTHYROXINE SOD 0.125 MG TAB PO SCH (07:30)
[2022-03-02] MEDS: INSULIN -REGULAR HUMAN 50 UNIT/0.5 ML ML SQ SCH ×4 (07:30→20:32)
[2022-03-02] MEDS ORDERED: CLOPIDOGREL 75 MG TABLET ONE (08:32)
[2022-03-02] MEDS ORDERED: HEPARIN 5000 UNIT/ML 1 ML VIAL ONE (08:32)
[2022-03-02] MEDS: HEPARIN 5000 UNIT/ML 1 ML VIAL SQ SCH ×2 (09:10→20:32)
[2022-03-02] MEDS: CLOPIDOGREL 75 MG TABLET PO SCH (09:10)
[2022-03-02] MEDS ORDERED: MORPHINE 2 MG/ML SYR ONE (10:51)
[2022-03-02] MEDS: MORPHINE 2 MG/ML SYR IV PRN (10:52)
--- NOTE | 2022-03-02 12:31 | P.CNS ---
Date of Consult: 03/02/22 Reason for Consult: Pleural effusion Chief Complaint: Anasarca, CHF exacerbation History of Present Illness: Patient is 66 years of age metabolic syndrome end-stage renal disease congestive heart failure coronary artery disease admitted with shortness of breath he has cirrhosis of the liver with ascites admitted with right-sided pleural effusion he is currently doing well saturation is normal also been complaining some back pain due to T12 compression fracture Allergies No Known Drug Allergies Allergy (Verified 02/06/22 04:59) Unknown Home Medications: Aspirin Chewable [Aspirin Chewable*] 81 mg PO DAILY 04/08/19 Atorvastatin Calcium 40 mg PO DAILY 04/08/19 Clopidogrel Bisulfate [Clopidogrel] 75 mg PO DAILY 04/08/19 Linagliptin [Tradjenta] 5 mg PO DAILY 04/08/19 Levothyroxine [Synthroid*] 125 mcg PO [id number] 07/17/21 Insulin Glargine,Hum.rec.anlog [Basaglar Kwikpen U-100] 10 unit SQ BEDTIME 12/01/21 Midodrine HCl 1 tab PO DIRECTED 02/03/22 Folic Acid/Vit B Complex and C [Dialyvite 800 Chewable Wafer] 800 mcg PO DAILY 03/02/22 Hydrocodone Bit/Acetaminophen [Hydrocodon-Acetaminophen 5-325] 1 each PO Q6HP PRN 03/02/22 methocarbamoL [Methocarbamol] 500 mg PO TID 03/02/22 - Past Medical/Surgical History Diabetic: Yes -: IDDM -: HTN -: hyperlipidemia -: MS -: anemia -: ESRD on HD -: Cirrhosis -: Pleural effusions -: pacemaker -: cardiac stents -: CABG Psychosocial/ Personal History: Lives at home with his - Family History Father Medical History: Diabetes Mother Medical History: Diabetes Notes: no hx of illness Sister Medical History: Diabetes Notes: 2 sisters, both from complications of diabetes - Social History Smoking Status: Unknown if ever smoked Alcohol use: No CD- Drugs: No Caffeine use: Yes Place of Residence: Home Review of Systems Respiratory: Shortness of Breath Musculoskeletal: Back Pain Neurological: Weakness Physical Examination Temp Pulse Resp BP Pulse Ox 97.5 F 69 16 108/62 100 03/02/22 08:00 03/02/22 08:00 03/02/22 08:00 03/02/22 08:00 03/02/22 08:00 General: Alert, In no apparent distress, Oriented x3 Respiratory: Diminished (Diminished on the right side) Cardiovascular: Regular rate/rhythm, Edema Gastrointestinal: Normal bowel sounds, Soft and benign Laboratory Data (last 24 hrs) 03/01/22 19:27: WBC 6.6, Hgb 10.6 L, Hct 32.7 L, Plt Count 154 03/01/22 19:27: Sodium 138, Potassium 3.4 L, BUN 20 H, Creatinine 4.66 H, Glucose 120 H - Problems (1) Cirrhosis of liver Current Visit: Yes Status: Acute Plan: Patient has cirrhosis of the liver with bilateral pleural effusion right greater than left and ascites right now is doing well oxygenation satisfactory check room air pulse ox is not in any distress no evidence of any sepsis continue with present therapy thoracentesis not indicated right now no fever plan for discharge hepatitis profile is negative Qualifiers: Ascites presence: unspecified
--- NOTE | 2022-03-02 13:26 | P.PN ---
Subjective Date of Service: 03/02/22 Chief Complaint: Anasarca, CHF exacerbation Subjective: No new changes, No C/O voiced (still worried about back pain) Physical Examination - Vital Signs Temperature: 97.5 F Blood Pressure: 107/58 Pulse: 63 Respirations: 16 Pulse Ox (%): 97 - Studies Laboratory Data (last 24 hrs) 03/01/22 19:27: WBC 6.6, Hgb 10.6 L, Hct 32.7 L, Plt Count 154 03/01/22 19:27: Sodium 138, Potassium 3.4 L, BUN 20 H, Creatinine 4.66 H, Glucose 120 H Assessment And Plan Physician Review: Patient Assessed, Agree with Above Assessment and Plan Physician Review Additional Text: - Physical Exam General: Alert, In no apparent distress, Oriented x3, Obese HEENT: Atraumatic, PERRLA, Mucous membr. moist/pink, EOMI, Sclerae nonicteric Neck: Supple, 2+ carotid pulse no bruit, No LAD, Without JVD or thyroid abnormality Respiratory: Diminished, Crackles/rales Cardiovascular: Regular rate/rhythm, Normal S1 S2, Edema Capillary refill: <2 Seconds Gastrointestinal: Normal bowel sounds, No tenderness, Ascites Musculoskeletal: No tenderness Integumentary: No rashes Neurological: Normal speech, Normal strength at 5/5 x4 extr, Normal tone, Normal affect Assessment: Acute on chronic systolic congestive heart failure-prior on life vest , s/p self discontinued Dyspnea, anasarca, moderate to large right pleural effusion, small left pleural effusion Liver cirrhosis Large volume ascites /history of cirrhosis ESRD on HD Diabetes type 2insulin-dependent Hypertension Hyperlipidemia Hypothyroidism CAD with previous CABG T12 compression fracturenot candidate for surgery by evaluation at [facility] Plan: Still having significant pain symptoms, continue pain regimen We discussed with patient regarding option of hospice home care for pain control given multiple end-stage organ dysfunction in this patient Continue IV diuretic Follow with history with daily ultrafiltration to achieve euvolemic status Continue sliding scale with Accu-Cheks Continue as needed paracentesis Follow-up plan for rehab/home hospicewill discussed with family Continue GI and DVT prophylaxis
[2022-03-02] MEDS: HYDROCODONE/APAP 7.5/325 MG TAB PO PRN (14:08)
[2022-03-02] MEDS ORDERED: HYDROCODONE/APAP 7.5/325 MG TAB ONE (14:09)
[2022-03-02] MEDS: FUROSEMIDE 40 MG/4 ML VIAL IV SCH (16:37)
[2022-03-02] MEDS: ATORVASTATIN 20 MG TAB PO SCH (20:31)
[2022-03-02] MEDS: DIPHENHYDRAMINE 50 MG/ML VIAL IV PRN (20:31)
[2022-03-02] MEDS: MIDODRINE HCL 5 MG TABLET PO SCH (20:31)
--- NOTE | 2022-03-02 21:44 | P.CNS ---
Date of Consult: 03/02/22 Reason for Consult: ESRD Requesting Physician: Marlyn Frias Chief Complaint: Anasarca, CHF exacerbation History of Present Illness: 66-year-old male with history of ESRD on HD, chronic systolic congestive heart failure, diabetes type 2insulin-dependent, hypertension, hyperlipidemia, hypothyroidism, CAD with previous CABG presents emergency department for shortness of breath. Patient with issues related to volume manag ement given his ESRD, CHF and recently diagnosis cirrhosis of liver with ascites. Patient with large volume ascites, moderate to large right pleural effusion, small left pleural effusion, anasarca, dyspnea. His troponin was also moderately elevated BNP significantly elevated he is currently on home oxygen at 2 L per nasal cannula his COVID test was negative today, positive during previous admission. Patient was also recently seen for a 40% T12 compression fracture evaluated by neurosurgery who determined patient was not a candidate for surgical intervention given his multiple comorbid medical problems. ED provider wishes to admit for further evaluation and management of anasarca, CHF, pleural effusions. 21:56 This 66 yrs old Male presents to ER via EMS with complaints of Shortness Of jr8 Breath, Back Pain. 21:56 Severity of symptoms: At their worst the symptoms were moderate in the emergency jr8 department the symptoms are unchanged. It is unknown whether or not the patient has had similar symptoms in the past. The patient has not recently seen a phys ician. Daughter of patient stated that he has had increased shortness of breath at rest and with any sort of exertion. 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 Having long periods of apnea as well which is new. Also having harder time getting on dialysis because of a broke rula k. History of ascites and pleural effusion that requires draining. Concerned that the effusion are back and worsening . Allergies No Known Drug Allergies Allergy (Verified 02/06/22 04:59) Unknown Home medications list reviewed: Yes Home Medications: Aspirin Chewable [Aspirin Chewable*] 81 mg PO DAILY 04/08/19 Atorvastatin Calcium 40 mg PO DAILY 04/08/19 Clopidogrel Bisulfate [Clopidogrel] 75 mg PO DAILY 04/08/19 Linagliptin [Tradjenta] 5 mg PO DAILY 04/08/19 Levothyroxine [Synthroid*] 125 mcg PO [id number] 07/17/21 Insulin Glargine,Hum.rec.anlog [Reneeaglar Keepen U-100] 10 unit SQ BEDTIME 12/01/21 Midodrine HCl 1 tab PO DIRECTED 02/03/22 Folic Acid/Vit B Complex and C [Dialyvite 800 Chewable Wafer] 800 mcg PO DAILY 03/02/22 Hydrocodone Bit/Acetaminophen [Hydrocodon-Acetaminophen 5-325] 1 each PO Q6HP P RN 03/02/22 methocarbamoL [Methocarbamol] 500 mg PO TID 03/02/22 - Past Medical/Surgical History Diabetic: Yes -: IDDM -: HTN -: hyperlipidemia -: CT -: anemia -: ESRD on HD -: Cirrhosis -: Pleural effusions -: pacemaker -: cardiac stents -: CABG Psychosocial/ Personal History: Lives at home with his - Family History Father Medical History: Diabetes Mother Medical History: Diabetes Notes: no hx of illness Sister Medical History: Diabetes Notes: 2 sisters, both from complications of diabetes - Social History Smoking Status: Unknown if ever smoked Alcohol use: No CD- Drugs: No Caffeine use: Yes Place of Residence: Home Review of Systems 10-point ROS is otherwise unremarkable General: Weakness, Malaise Respiratory: SOB with Excertion Gastrointestinal: Abdominal Pain Physical Examination Temp Pulse Resp BP Pulse Ox 97.9 F 67 14 113/63 100 03/02/22 20:00 03/02/22 20:00 03/02/22 20:00 03/02/22 20:00 03/02/22 20:00 General: Oriented x3, Cooperative HEENT: Atraumatic Neck: Supple Respiratory: Diminished Cardiovascular: No edema, Regular rate/rhythm Gastrointestinal: Distended, Tenderness Musculoskeletal: No clubbing, No contractures Integumentary: No rashes, No cyanosis Neurological: Normal speech Laboratory Data (last 24 hrs) 03/01/22 19:27: WBC 6.6, Hgb 10.6 L, Hct 32.7 L, Plt Count 154 Imagings Data: EXM DESCRIPTION: RAD - Chest Single View - 03/01/2022 8:50 pm CLINICAL HISTORY: DYSPNEA COMPARISON: Chest Single View dated 02/15/2022; Chest Pa And Lat (2 Views) dated 02/06/2022; Chest Single View dated 07/28/2021; Chest Pa And Lat (2 Views) dated 07/17/2021 FINDINGS: Lines: None. Lungs: Widespread bilateral pulmonary opacities, right greater than left. Pleural: Large right pleural effusion which is increased in size. Left pleural effusion. Cardiac: Severe cardiomegaly. Defibrillator. Bones: No acute fractures. Sternotomy. Other: IMPRESSION: Pulmonary edema with increased moderate to large right pleural effusion. EXAM DESCRIPTION: CTChest Abd Pelvis Wo Con - 03/01/2022 10:45 pm CLINICAL HISTORY: Dyspnea COMPARISON: Chest Abd Pelvis Wo Con dated 02/05/2022; Chest Abd Pelvis Wo Con dated 05/25/2019; THORAX WO CONTRAST dated 03/03/2015; THORAX WO CONTRAST dated 02/27/2015 TECHNIQUE: CT of the chest, abdomen, and pelvis was performed. All CT scans are performed using dose optimization technique as appropriate and may include automated exposure control or mA/KV adjustment according to patient size. FINDINGS: Thorax: Chest Wall: No abnormal mass Battery pack in the left chest wall. Lungs: Atelectasis as a result of the effusions. Pleura: Moderate to large right pleural effusion. Small left pleural effusion. Gris/Mediastinum: No lymphadenopathy. Aorta/Pulmonary Arteries: Unremarkable Heart: Cardiomegaly. Multi-vessel coronary artery disease. Abdomen/Pelvis: Liver: No acute abnormality or suspicious lesions. Biliary: No biliary ductal dilatation. Stomach: No significant focal abnormality. Duodenum: No significant focal abnormality. 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 The largest measures 11 millimeters. No pancreatic ductal dilatation. The pancreas is atrophic. Spleen: No significant abnormality. Adrenal: No suspicious lesions. Kidney/ureter: No hydronephrosis. No renal calculi. Retroperitoneum: No retroperitoneal adenopathy. Vascular: No aneurysm. Atherosclerosis Bowel: No significant focal abnormality. Peritoneum: Large volume of ascites. Bladder: Grossly unremarkable. Reproductive: No adnexal masses. Bones: No acute fracture. Sternotomy. Remote right upper to ring fracture. Osteopenia. Battery pack in left chest wall. Other: n/a IMPRESSION: Anasarca including moderate to large right and small left pleural effusions, large volume of ascites, and body wall edema. No other acute findings identified. Conclusions/Impression: ESRD -HD TIW -Consider daily HD HTN with CKD/ CHF complicated by hypotension -Continue Midodrine Systolic CHF, A/C -HD with UF -Continue Lasix DM II with CKD -RISS Anemia in CKD -Retacrit TIW CKD MBD -Start Vitamin D Thank you kindly for the consultation.
[2022-03-02] MEDS ORDERED: NA CHLORIDE 0.9% 1,000 ML IV PRN (21:58)
[2022-03-02] MEDS ORDERED: MANNITOL 25% 12.5 GM/50 ML VIAL IV PRN (21:58)
[2022-03-02] MEDS ORDERED: ALBUMIN HUMAN 25% 50 ML IV PRN (22:00)
[2022-03-02] MEDS ORDERED: EPOETIN ALFA-EPBX 10,000 UNIT/ML VIAL ONE (23:58)
[2022-03-03] MEDS: EPOETIN ALFA 10,000 UNIT/ML VIAL SQ SCH ×2 (00:59→17:40)
[2022-03-03] MEDS: LEVOTHYROXINE SOD 0.125 MG TAB PO SCH (06:17)
[2022-03-03 06:26] LABS: Absolute Lymphocytes (CBC) 0.4 K/uL (0.7-4.9); Lymphocytes % 6.2 % (15.3-44.8); MPV 8.5 fL (7.6-11.3); RBC Red Blood Cell Count 3.27 M/uL (4.33-5.43)
[2022-03-03 07:11] LABS: ALT/SGPT 14 U/L (12-78); AST/SGOT 16 U/L (15-37); Albumin 2.6 g/dL (3.4-5.0); Alkaline Phosphatase 89 U/L (45-117); BUN Blood Urea Nitrogen 27 mg/dL (7-18); Bicarbonate 32 mmol/L (21-32); Bilirubin Total 0.7 mg/dL (0.2-1.0); Glomerular Filtration Rate 10 mL/min (=/>90); Glucose Level 106 mg/dL (74-106); Phosphorus 4.7 mg/dL (2.5-4.9); Potassium 3.5 mmol/L (3.5-5.1); Protein, Total 6.4 g/dL (6.4-8.2); Sodium Level 137 mmol/L (136-145); Uric Acid 4.3 mg/dL (3.5-7.2)
[2022-03-03 07:12] LABS: NT PRO-BNP > 175000 pg/mL (<125)
[2022-03-03] MEDS: INSULIN -REGULAR HUMAN 50 UNIT/0.5 ML ML SQ SCH ×4 (07:30→20:56)
--- NOTE | 2022-03-03 09:03 | P.PN ---
Subjective Date of Service: 03/03/22 Chief Complaint: Anasarca, CHF exacerbation Subjective: No new changes, No C/O voiced (Still having significant back pain) Physical Examination - Vital Signs Temperature: 97.1 F Blood Pressure: 104/59 Pulse: 68 Respirations: 16 Pulse Ox (%): 99 Assessment And Plan - Current Problems (Diagnosis) (1) Congestive heart failure Onset Date: 04/11/18 Current Visit: No Status: Acute Qualifiers: (2) End stage renal disease on dialysis Current Visit: No Status: Acute (3) Diabetes mellitus Onset Date: 02/28/15 Current Visit: No Status: Chronic Physician Review: Patient Assessed, Agree with Above Assessment and Plan Physician Review Additional Text: - Physical Exam General: Alert, In no apparent distress, Oriented x3, Obeseon nasal cannula O2 HEENT: Atraumatic, PERRLA, Mucous membr. moist/pink, EOMI, Sclerae nonicteric Neck: Supple, 2+ carotid pulse no bruit, No LAD, Without JVD or thyroid abnormality Respiratory: Diminished, Crackles/rales Cardiovascular: Regular rate/rhythm, Normal S1 S2, Edema Capillary refill: <2 Seconds Gastrointestinal: Normal bowel sounds, No tenderness, Ascites Musculoskeletal: + tenderness over lower thoracic vertebra Integumentary: No rashes Neurological: Normal speech, Normal strength at 5/5 x4 extr, Normal tone, Normal affect Assessment: Acute on chronic systolic congestive heart failure-prior on life vest , s/p self discontinued Dyspnea, anasarca, moderate to large right pleural effusion, small left pleural effusion Liver cirrhosis Large volume ascites /history of cirrhosis ESRD on HD Diabetes type 2insulin-dependent Hypertension Hyperlipidemia Hypothyroidism CAD with previous CABG T12 compression fracturenot candidate for surgery per evaluation at [facility] Plan: Follow-up plan for dialysis today -Agree with plan for daily dialysis for now until establish volume control -CT intractable back pain, continue pain regimen, add lidocaine patch Option of home hospice given ESRD/severe systolic CHF/unstable T12 compression fracture discussed patient agreeable to hospice Will consult case management Follow-up with dialysis and fluid removal Possible plan for discharge when home hospice and volume status optimized Continue IV diuretic Follow with history with daily ultrafiltration to achieve euvolemic status Continue sliding scale with Accu-Cheks Continue as needed paracentesis Continue GI and DVT prophylaxis 03/03/22 09:00 Time Spent Managing PTS Care (In Minutes): 35
[2022-03-03] MEDS: DOCUSATE NA 100 MG CAP PO SCH ×2 (09:09→20:55)
[2022-03-03] MEDS: CLOPIDOGREL 75 MG TABLET PO SCH (09:09)
[2022-03-03] MEDS: HYDROCODONE/APAP 7.5/325 MG TAB PO PRN (09:10)
[2022-03-03] MEDS: MIDODRINE HCL 5 MG TABLET PO SCH ×2 (09:11→20:55)
[2022-03-03] MEDS: MULTIVITAMINS,THERAPEUT 1 TAB PO SCH (09:11)
[2022-03-03] MEDS: CALCITROL 0.25 MCG CAP PO SCH (09:12)
[2022-03-03] MEDS: VITAMIN D 5,000 UNIT CAP PO SCH (09:12)
[2022-03-03] MEDS: COENZYME Q10- 200 MG CAP PO SCH (09:13)
[2022-03-03] MEDS: FUROSEMIDE 40 MG/4 ML VIAL IV SCH ×2 (09:14→17:39)
[2022-03-03] MEDS: HEPARIN 5000 UNIT/ML 1 ML VIAL SQ SCH ×2 (09:15→20:56)
--- NOTE | 2022-03-03 11:41 | RAD REPORT ---
EXAM DESCRIPTION: RAD - Hip Left 2 View - 03/03/2022 11:12 am CLINICAL HISTORY: Left hip/ groin pain COMPARISON: No comparisons FINDINGS/IMPRESSION: No acute fracture. No malalignment. Mild to moderate left acetabular degenerati ve changes. Osteopenia severely limits evaluation for a fracture. Consider CT or MRI if there is pers istent clinical concern for a fracture given the degree of osteopenia.
--- NOTE | 2022-03-03 13:00 | EKG ---
Test Date: 2022-03-01 Test Time: 20:31:01 [employer]arcane Research Technician: CONSTANTINO MEASUREMENT RESULTS: Intervals: Rate: 68 [place]: QRSD: 136 QT: 434 QTc: 461 [place]: P: FL: QRS: -49 T: -40 INTERPRETIVE STATEMENTS: Wide QRS rhythm Left axis deviation Nonspecific intraventricular block Cannot rule out Septal infarct, age undetermined Lateral injury pattern ACUTE CO / STEMI Abnormal ECG Compared to ECG 02/15/2022 09:37:04 Uncertain supraventricular rhythm now present T-wave abnormality no longer present Possible ischemia no longer present Myocardial infarct finding still present Electronically Signed On 03-03-22 12:57:46 CDT by Puneet Banerjee
--- NOTE | 2022-03-03 13:00 | EKG ---
Test Date: 2022-03-01 Test Time: 20:43:12 Aircraft Part Assembler: CONSTANTINO MEASUREMENT RESULTS: Intervals: Rate: 69 PA: 168 QRSD: 138 QT: 440 QTc: 471 [place]: P: -12 PA: 168 QRS: -57 T: 134 INTERPRETIVE STATEMENTS: Normal sinus rhythm Left axis deviation Nonspecific intraventricular block Nonspecific T wave abnormality Abnormal ECG Compared to ECG 02/15/2022 09:37:04 Myocardial infarct finding no longer present Possible ischemia no longer present T-wave abnormality still present Electronically Signed On 03-03-22 12:57:45 CDT by Puneet Banerjee
[2022-03-03] MEDS: LIDOCAINE 4% PATCH TOP SCH (17:39)
--- NOTE | 2022-03-03 20:34 | P.PN ---
Date of Service: 03/03/22 Vital Signs Temp Pulse Resp BP Pulse Ox 97.7 F 71 16 94/51 L 98 03/03/22 16:00 03/03/22 16:00 03/03/22 16:00 03/03/22 16:00 03/03/22 16:00 Medications Hydrocodone Bitart/Acetaminophen (Hydrocodone/Apap 7.5/325 Mg Tab) 1 tab PO Q6H PRN PRN Reason: Pain scale 5-7 (Moderate) Last Admin: 03/03/22 09:10 Dose: 1 tab Documented by: Atorvastatin Calcium (Atorvastatin 20 Mg Tab) 20 mg PO BEDTIME [facility] Last Admin: 03/02/22 20:31 Dose: 20 mg Documented by: Calcitriol (Calcitrol 0.25 Mcg Cap) 0.5 mcg PO DAILY [facility] Last Admin: 03/03/22 09:12 Dose: 0.5 mcg Documented by: Cholecalciferol (Vitamin D 5,000 Unit Cap) 5,000 unit PO DAILY [facility] Last Admin: 03/03/22 09:12 Dose: 5,000 unit Documented by: Clopidogrel Bisulfate (Clopidogrel 75 Mg Tablet) 75 mg PO DAILY [facility] Last Admin: 03/03/22 09:09 Dose: 75 mg Documented by: Coenzyme Q10 (Coenzyme Q10- 200 Mg Cap) 200 mg PO DAILY [facility] Last Admin: 03/03/22 09:13 Dose: 200 mg Documented by: Diphenhydramine HCl (Diphenhydramine 50 Mg/Ml Vial) 12.5 mg IV Q6H PRN PRN Reason: ITCHING Last Admin: 03/02/22 20:31 Dose: 12.5 mg Documented by: Docusate Sodium (Docusate Na 100 Mg Cap) 100 mg PO BID [facility] Last Admin: 03/03/22 09:09 Dose: 100 mg Documented by: Epoetin Gopi (Epoetin Gopi 10,000 Unit/Ml Vial) 10,000 unit SQ M,W,F [facility] Last Admin: 03/03/22 17:40 Dose: 10,000 unit Documented by: Furosemide (Furosemide 40 Mg/4 Ml Vial) 80 mg IV BIDL [facility] Last Admin: 03/03/22 17:39 Dose: 80 mg Documented by: Heparin Sodium (Porcine) (Heparin 5000 Unit/Ml 1 Ml Vial) 5,000 unit SQ Q12HR [facility] Last Admin: 03/03/22 09:15 Dose: 5,000 unit Documented by: Heparin Sodium (Porcine) (Heparin 1,000 Unit/Ml Vial) 6,000 unit IV EVERY HD PRN PRN Reason: AFTER EACH Albumin Human (Albumin 25%) 50 mls @ 100 mls/hr IV EVERY HD PRN PRN Reason: BP support during HD Insulin Human Regular (Insulin -Regular Human 50 Unit/0.5 Ml Ml) 0 unit SQ ACHS [facility]; Protocol Last Admin: 03/03/22 16:30 Dose: Not Given Documented by: Levothyroxine Sodium (Levothyroxine Sod 0.125 Mg Tab) 0.125 mg PO DAILYAC [facility] Last Admin: 03/03/22 06:17 Dose: 0.125 mg Documented by: Lidocaine (Lidocaine 4% Patch) 1 patch TOP DAILY [facility] Last Admin: 03/03/22 17:39 Dose: 1 patch Documented by: Mannitol (Mannitol 25% 12.5 Gm/50 Ml Vial) 12.5 gm IV EVERY HD PRN PRN Reason: Titrate to SBP (MUST DEFINE) Midodrine (Midodrine Hcl 5 Mg Tablet) 5 mg PO BID [facility] Last Admin: 03/03/22 09:11 Dose: 5 mg Documented by: Morphine Sulfate (Morphine 2 Mg/Ml Syr) 2 mg IV Q6H PRN PRN Reason: Pain scale 5-7 (Moderate) Last Admin: 03/02/22 10:52 Dose: 2 mg Documented by: Ondansetron HCl (Ondansetron 4 Mg/2 Ml Vial) 4 mg IV Q6HP PRN PRN Reason: NAUSEA / VOMITING Sodium Chloride (Flush Normal Saline 10 Ml) 10 ml IV BID [facility] Last Admin: 03/03/22 09:16 Dose: 10 ml Documented by: Vitamin B Complex/Vit C/Folic Acid (Multivitamins,Therapeut 1 Tab) 1 tab PO DAILY [facility] Last Admin: 03/03/22 09:11 Dose: 1 tab Documented by: Assessment/ Plan: Nephrology No dyspnea No chest pain Weakness and fatigue Left hip pain and mid back pain No acute events overnight Vitals, medications, blood work and imaging reviewed in the chart. General: Oriented x3, Cooperative HEENT: Atraumatic Neck: Supple Respiratory: Diminished Cardiovascular: No edema, Regular rate/rhythm Gastrointestinal: Distended, Tenderness Musculoskeletal: No clubbing, No contractures Integumentary: No rashes, No cyanosis Neurological: Normal speech Laboratory Data (last 24 hrs) 03/01/22 19:27: WBC 6.6, Hgb 10.6 L, Hct 32.7 L, Plt Count 154 Imagings Data: EXM DESCRIPTION: RAD - Chest Single View - 03/01/2022 8:50 pm CLINICAL HISTORY: DYSPNEA COMPARISON: Chest Single View dated 02/15/2022; Chest Pa And Lat (2 Views) dated 02/06/2022; Chest Single View dated 07/28/2021; Chest Pa And Lat (2 Views) dated 07/17/2021 FINDINGS: Lines: None. Lungs: Widespread bilateral pulmonary opacities, right greater than left. Pleural: Large right pleural effusion which is increased in size. Left pleural effusion. Cardiac: Severe cardiomegaly. Defibrillator. Bones: No acute fractures. Sternotomy. Other: IMPRESSION: Pulmonary edema with increased moderate to large right pleural effusion. EXAM DESCRIPTION: CTChest Abd Pelvis Wo Con - 03/01/2022 10:45 pm CLINICAL HISTORY: Dyspnea COMPARISON: Chest Abd Pelvis Wo Con dated 02/05/2022; Chest Abd Pelvis Wo Con dated 05/25/2019; THORAX WO CONTRAST dated 03/03/2015; THORAX WO CONTRAST dated 02/27/2015 TECHNIQUE: CT of the chest, abdomen, and pelvis was performed. All CT scans are performed using dose optimization technique as appropriate and may include automated exposure control or mA/KV adjustment according to patient size. FINDINGS: Thorax: Chest Wall: No abnormal mass Battery pack in the left chest wall. Lungs: Atelectasis as a result of the effusions. Pleura: Moderate to large right pleural effusion. Small left pleural effusion. Gris/Mediastinum: No lymphadenopathy. Aorta/Pulmonary Arteries: Unremarkable Heart: Cardiomegaly. Multi-vessel coronary artery disease. Abdomen/Pelvis: Liver: No acute abnormality or suspicious lesions. Biliary: No biliary ductal dilatation. Stomach: No significant focal abnormality. Duodenum: No significant focal abnormality. 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 The largest measures 11 millimeters. No pancreatic ductal dilatation. The pancreas is atrophic. Spleen: No significant abnormality. Adrenal: No suspicious lesions. Kidney/ureter: No hydronephrosis. No renal calculi. Retroperitoneum: No retroperitoneal adenopathy. Vascular: No aneurysm. Atherosclerosis Bowel: No significant focal abnormality. Peritoneum: Large volume of ascites. Bladder: Grossly unremarkable. Reproductive: No adnexal masses. Bones: No acute fracture. Sternotomy. Remote right upper to ring fracture. Osteopenia. Battery pack in left chest wall. Other: n/a IMPRESSION: Anasarca including moderate to large right and small left pleural effusions, large volume of ascites, and body wall edema. No other acute findings identified. Conclusions/Impression: ESRD -HD TIW -Consider daily HD HTN with CKD/ CHF complicated by hypotension -Continue Midodrine Systolic CHF, A/C -HD with UF -Continue Lasix DM II with CKD -RISS Anemia in CKD -Retacrit TIW CKD MBD -Continue Vitamin D T12 Back Pain Left Hip Pain -Lidocaine patch for back pain -Left hip xray -Continue PT as tolerated
[2022-03-03] MEDS: ATORVASTATIN 20 MG TAB PO SCH (20:55)
[2022-03-03] MEDS: DIPHENHYDRAMINE 50 MG/ML VIAL IV PRN (20:56)
[2022-03-04] MEDS: LEVOTHYROXINE SOD 0.125 MG TAB PO SCH (06:16)
[2022-03-04 06:17] LABS: Absolute Lymphocytes (CBC) 0.5 K/uL (0.7-4.9); MPV 8.7 fL (7.6-11.3); RBC Red Blood Cell Count 3.41 M/uL (4.33-5.43)
[2022-03-04 06:33] LABS: Albumin 3.1 g/dL (3.4-5.0); Bilirubin Total 0.6 mg/dL (0.2-1.0); Protein, Total 6.7 g/dL (6.4-8.2)
[2022-03-04] MEDS: INSULIN -REGULAR HUMAN 50 UNIT/0.5 ML ML SQ SCH ×4 (07:30→21:00)
[2022-03-04] MEDS: LIDOCAINE 4% PATCH TOP SCH (09:30)
[2022-03-04] MEDS: CLOPIDOGREL 75 MG TABLET PO SCH (09:31)
[2022-03-04] MEDS: FUROSEMIDE 40 MG/4 ML VIAL IV SCH ×2 (09:31→16:39)
[2022-03-04] MEDS: CALCITROL 0.25 MCG CAP PO SCH (09:31)
[2022-03-04] MEDS: MIDODRINE HCL 5 MG TABLET PO SCH ×2 (09:31→20:46)
[2022-03-04] MEDS: MULTIVITAMINS,THERAPEUT 1 TAB PO SCH (09:31)
[2022-03-04] MEDS: DOCUSATE NA 100 MG CAP PO SCH ×2 (09:31→20:46)
[2022-03-04] MEDS: COENZYME Q10- 200 MG CAP PO SCH (09:31)
[2022-03-04] MEDS: VITAMIN D 5,000 UNIT CAP PO SCH (09:31)
[2022-03-04] MEDS: HEPARIN 5000 UNIT/ML 1 ML VIAL SQ SCH ×2 (09:32→20:46)
[2022-03-04] MEDS: HYDROCODONE/APAP 7.5/325 MG TAB PO PRN (09:32)
[2022-03-04] MEDS: DIPHENHYDRAMINE 50 MG/ML VIAL IV PRN (09:34)
[2022-03-04] MEDS ORDERED: ALBUMIN HUMAN 25% 100 ML IV SCH (10:00)
--- NOTE | 2022-03-04 13:06 | P.PN ---
Subjective Date of Service: 03/14/22 Chief Complaint: Anasarca, CHF exacerbation Subjective: Improving (At hemodialysis.) Physical Examination - Vital Signs Temperature: 97.4 F Blood Pressure: 118/61 Pulse: 72 Respirations: 18 Pulse Ox (%): 97 Assessment And Plan - Current Problems (Diagnosis) (1) End stage renal disease on dialysis Status: Acute (2) Abdominal ascites Status: Acute (3) Acute kidney injury superimposed on CKD Status: Acute (4) Cirrhosis of liver Status: Acute Qualifiers: Ascites presence: unspecified (5) Congestive heart failure Onset Date: 04/11/18 Status: Acute Qualifiers: (6) Diabetes mellitus Onset Date: 02/28/15 Status: Chronic (7) Hyperlipidemia Onset Date: 02/28/15 Status: Chronic Qualifiers: (8) Hypertension Onset Date: 02/28/15 Status: Chronic - Plan REC: 1) continue aggresive hemodialysis to remove excessive fluid with ascites on this admission 2) liver clinic follow-up Physician Review: Patient Assessed, Agree with Above Assessment and Plan
--- NOTE | 2022-03-04 14:24 | P.PN ---
Subjective Date of Service: 03/04/22 Chief Complaint: Anasarca, CHF exacerbation Subjective: No new changes, No C/O voiced (Tolerating dialysis well Still persistent back pain) Physical Examination - Vital Signs Temperature: 97.4 F Blood Pressure: 118/61 Pulse: 72 Respirations: 18 Pulse Ox (%): 97 Assessment And Plan - Current Problems (Diagnosis) (1) Congestive heart failure Onset Date: 04/11/18 Current Visit: No Status: Acute Qualifiers: (2) End stage renal disease on dialysis Current Visit: No Status: Acute (3) Diabetes mellitus Onset Date: 02/28/15 Current Visit: No Status: Chronic Physician Review: Patient Assessed, Agree with Above Assessment and Plan Physician Review Additional Text: - Physical Exam General: Alert, In no apparent distress, Oriented x3, Obeseon nasal cannula O2 HEENT: Atraumatic, PERRLA, Mucous membr. moist/pink, EOMI, Sclerae nonicteric Neck: Supple, 2+ carotid pulse no bruit, No LAD, Without JVD or thyroid abnormality Respiratory: Diminished, Crackles/rales Cardiovascular: Regular rate/rhythm, Normal S1 S2, Edema Capillary refill: <2 Seconds Gastrointestinal: Normal bowel sounds, No tenderness, Ascites Musculoskeletal: + tenderness over lower thoracic vertebra Integumentary: No rashes Neurological: Normal speech, Normal strength at 5/5 x4 extr, Normal tone, Normal affect Assessment: Acute on chronic systolic congestive heart failure-prior on life vest , s/p self discontinued Dyspnea, anasarca, moderate to large right pleural effusion, small left pleural effusion-due to lack of dialysis Liver cirrhosis Large volume ascites /history of cirrhosis ESRD on HD Diabetes type 2insulin-dependent Hypertension Hyperlipidemia Hypothyroidism CAD with previous CABG T12 compression fracturenot candidate for [facility] Plan: Continue dialysis Volume status improving with dialysis Issues with getting dialysis at home since bedbound from thoracic compression fracture Continue pain regimen, add lidocaine patch to lower back Patient initially discussed with her regarding hospice and was agreeable but later decided against hospice and 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
--- NOTE | 2022-03-04 20:04 | P.PN ---
Date of Service: 03/04/22 Vital Signs Temp Pulse Resp BP Pulse Ox 97.1 F 75 16 106/59 L 97 03/04/22 16:00 03/04/22 16:00 03/04/22 16:00 03/04/22 16:00 03/04/22 16:00 Medications Hydrocodone Bitart/Acetaminophen (Hydrocodone/Apap 7.5/325 Mg Tab) 1 tab PO Q6H PRN PRN Reason: Pain scale 5-7 (Moderate) Last Admin: 03/04/22 09:32 Dose: 1 tab Documented by: Atorvastatin Calcium (Atorvastatin 20 Mg Tab) 20 mg PO BEDTIME [facility] Last Admin: 03/03/22 20:55 Dose: 20 mg Documented by: Calcitriol (Calcitrol 0.25 Mcg Cap) 0.5 mcg PO DAILY [facility] Last Admin: 03/04/22 09:31 Dose: 0.5 mcg Documented by: Cholecalciferol (Vitamin D 5,000 Unit Cap) 5,000 unit PO DAILY [facility] Last Admin: 03/04/22 09:31 Dose: 5,000 unit Documented by: Clopidogrel Bisulfate (Clopidogrel 75 Mg Tablet) 75 mg PO DAILY [facility] Last Admin: 03/04/22 09:31 Dose: 75 mg Documented by: Coenzyme Q10 (Coenzyme Q10- 200 Mg Cap) 200 mg PO DAILY [facility] Last Admin: 03/04/22 09:31 Dose: 200 mg Documented by: Diphenhydramine HCl (Diphenhydramine 50 Mg/Ml Vial) 12.5 mg IV Q6H PRN PRN Reason: ITCHING Last Admin: 03/04/22 09:34 Dose: 12.5 mg Documented by: Docusate Sodium (Docusate Na 100 Mg Cap) 100 mg PO BID [facility] Last Admin: 03/04/22 09:31 Dose: 100 mg Documented by: Epoetin Gopi (Epoetin Gopi 10,000 Unit/Ml Vial) 10,000 unit SQ M,W,F [facility] Last Admin: 03/03/22 17:40 Dose: 10,000 unit Documented by: Furosemide (Furosemide 40 Mg/4 Ml Vial) 80 mg IV BIDL [facility] Last Admin: 03/04/22 16:39 Dose: 80 mg Documented by: Heparin Sodium (Porcine) (Heparin 5000 Unit/Ml 1 Ml Vial) 5,000 unit SQ Q12HR [facility] Last Admin: 03/04/22 09:32 Dose: 5,000 unit Documented by: Heparin Sodium (Porcine) (Heparin 1,000 Unit/Ml Vial) 2,000 unit IV EVERY HD [facility] Stop: 03/09/22 10:01 Albumin Human (Albumin 25% 25 Gm) 100 mls @ 100 mls/hr IV EVERY HD [facility] Insulin Human Regular (Insulin -Regular Human 50 Unit/0.5 Ml Ml) 0 unit SQ ACHS [facility]; Protocol Last Admin: 03/04/22 15:44 Dose: Not Given Documented by: Levothyroxine Sodium (Levothyroxine Sod 0.125 Mg Tab) 0.125 mg PO DAILYAC [facility] Last Admin: 03/04/22 06:16 Dose: 0.125 mg Documented by: Lidocaine (Lidocaine 4% Patch) 1 patch TOP DAILY [facility] Last Admin: 03/04/22 09:30 Dose: 1 patch Documented by: Mannitol (Mannitol 25% 12.5 Gm/50 Ml Vial) 12.5 gm IV EVERY HD PRN PRN Reason: Titrate to SBP (MUST DEFINE) Midodrine (Midodrine Hcl 5 Mg Tablet) 5 mg PO BID [facility] Last Admin: 03/04/22 09:31 Dose: 5 mg Documented by: Morphine Sulfate (Morphine 2 Mg/Ml Syr) 2 mg IV Q6H PRN PRN Reason: Pain scale 5-7 (Moderate) Last Admin: 03/02/22 10:52 Dose: 2 mg Documented by: Ondansetron HCl (Ondansetron 4 Mg/2 Ml Vial) 4 mg IV Q6HP PRN PRN Reason: NAUSEA / VOMITING Sodium Chloride (Flush Normal Saline 10 Ml) 10 ml IV BID [facility] Last Admin: 03/04/22 09:32 Dose: 10 ml Documented by: Vitamin B Complex/Vit C/Folic Acid (Multivitamins,Therapeut 1 Tab) 1 tab PO DAILY [facility] Last Admin: 03/04/22 09:31 Dose: 1 tab Documented by: Assessment/ Plan: Nephrology No dyspnea No chest pain Weakness and fatigue Left hip pain and mid back pain No acute events overnight Vitals, medications, blood work and imaging reviewed in the chart. General: Oriented x3, Cooperative HEENT: Atraumatic Neck: Supple Respiratory: Diminished Cardiovascular: No edema, Regular rate/rhythm Gastrointestinal: Distended, Tenderness Musculoskeletal: No clubbing, No contractures Integumentary: No rashes, No cyanosis Neurological: Normal speech Laboratory Data (last 24 hrs) 03/01/22 19:27: WBC 6.6, Hgb 10.6 L, Hct 32.7 L, Plt Count 154 Imagings Data: EXM DESCRIPTION: RAD - Chest Single View - 03/01/2022 8:50 pm CLINICAL HISTORY: DYSPNEA COMPARISON: Chest Single View dated 02/15/2022; Chest Pa And Lat (2 Views) dated 02/06/2022; Chest Single View dated 07/28/2021; Chest Pa And Lat (2 Views) dated 07/17/2021 FINDINGS: Lines: None. Lungs: Widespread bilateral pulmonary opacities, right greater than left. Pleural: Large right pleural effusion which is increased in size. Left pleural effusion. Cardiac: Severe cardiomegaly. Defibrillator. Bones: No acute fractures. Sternotomy. Other: IMPRESSION: Pulmonary edema with increased moderate to large right pleural e ffusion. EXAM DESCRIPTION: CTChest Abd Pelvis Wo Con - 03/01/2022 10:45 pm CLINICAL HISTORY: Dyspnea COMPARISON: Chest Abd Pelvis Wo Con dated 02/05/2022; Chest Abd Pelvis Wo Con dated 05/25/2019; THORAX WO CONTRAST dated 03/03/2015; THORAX WO CONTRAST dated 02/27/2015 TECHNIQUE: CT of the chest, abdomen, and pelvis was performed. All CT scans are performed using dose optimization technique as appropriate and may include automated exposure control or mA/KV adjustment according to patient size. FINDINGS: Thorax: Chest Wall: No abnormal mass Battery pack in the left chest wall. Lungs: Atelectasis as a result of the effusions. Pleura: Moderate to large right pleural effusion. Small left pleural effusion. Gris/Mediastinum: No lymphadenopathy. Aorta/Pulmonary Arteries: Unremarkable Heart: Cardiomegaly. Multi-vessel coronary artery disease. Abdomen/Pelvis: Liver: No acute abnormality or suspicious lesions. Biliary: No biliary ductal dilatation. Stomach: No significant focal abnormality. Duodenum: No significant focal abnormality. 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 The largest measures 11 millimeters. No pancreatic ductal dilatation. The pancreas is atrophic. Spleen: No significant abnormality. Adrenal: No suspicious lesions. Kidney/ureter: No hydronephrosis. No renal calculi. Retroperitoneum: No retroperitoneal adenopathy. Vascular: No aneurysm. Atherosclerosis Bowel: No significant focal abnormality. Peritoneum: Large volume of ascites. Bladder: Grossly unremarkable. Reproductive: No adnexal masses. Bones: No acute fracture. Sternotomy. Remote right upper to ring fracture. Osteopenia. Battery pack in left chest wall. Other: n/a IMPRESSION: Anasarca including moderate to large right and small left pleural effusions, large volume of ascites, and body wall edema. No other acute findings identified. Conclusions/Impression: ESRD -HD TIW -Daily HD PRN HTN with CKD/ CHF complicated by hypotension -Continue Midodrine Systolic CHF, A/C -HD with UF -Continue Lasix DM II with CKD -RISS Anemia in CKD -Retacrit TIW CKD MBD -Continue Vitamin D T12 Back Pain Left Hip Pain -Lidocaine patch for back pain -Left hip xray reviewed -Continue PT as tolerated
[2022-03-04] MEDS: ATORVASTATIN 20 MG TAB PO SCH (20:46)
[2022-03-05] MEDS: LEVOTHYROXINE SOD 0.125 MG TAB PO SCH (06:11)
[2022-03-05 06:19] LABS: Albumin 3.3 g/dL (3.4-5.0); Bilirubin Total 0.6 mg/dL (0.2-1.0); Protein, Total 6.9 g/dL (6.4-8.2)
[2022-03-05] MEDS: INSULIN -REGULAR HUMAN 50 UNIT/0.5 ML ML SQ SCH ×4 (07:30→20:53)
[2022-03-05] MEDS: CALCITROL 0.25 MCG CAP PO SCH (08:24)
[2022-03-05] MEDS: MULTIVITAMINS,THERAPEUT 1 TAB PO SCH (08:24)
[2022-03-05] MEDS: DOCUSATE NA 100 MG CAP PO SCH ×2 (08:24→20:52)
[2022-03-05] MEDS: LIDOCAINE 4% PATCH TOP SCH (08:25)
[2022-03-05] MEDS: MIDODRINE HCL 5 MG TABLET PO SCH ×2 (08:25→20:53)
[2022-03-05] MEDS: FUROSEMIDE 40 MG/4 ML VIAL IV SCH ×2 (08:25→17:44)
[2022-03-05] MEDS: CLOPIDOGREL 75 MG TABLET PO SCH (08:26)
[2022-03-05] MEDS: VITAMIN D 5,000 UNIT CAP PO SCH (08:26)
[2022-03-05] MEDS: MORPHINE 2 MG/ML SYR IV PRN (08:27)
[2022-03-05] MEDS: HEPARIN 5000 UNIT/ML 1 ML VIAL SQ SCH ×2 (08:28→20:52)
[2022-03-05] MEDS: COENZYME Q10- 200 MG CAP PO SCH (08:33)
--- NOTE | 2022-03-05 12:17 | P.PN ---
Subjective Date of Service: 03/05/22 Chief Complaint: Anasarca, CHF exacerbation Subjective: No new changes, No C/O voiced (Having back pain, limiting PT activity today) Physical Examination - Vital Signs Temperature: 97.3 F Blood Pressure: 106/61 Pulse: 71 Respirations: 16 Pulse Ox (%): 99 Assessment And Plan - Current Problems (Diagnosis) (1) Congestive heart failure Onset Date: 04/11/18 Current Visit: No Status: Acute Qualifiers: (2) End stage renal disease on dialysis Current Visit: No Status: Acute (3) Diabetes mellitus Onset Date: 02/28/15 Current Visit: No Status: Chronic Physician Review: Patient Assessed, Agree with Above Assessment and Plan Physician Review Additional Text: - Physical Exam General: Alert, In no apparent distress, Oriented x3, Obeseon nasal cannula O2 HEENT: Atraumatic, PERRLA, Mucous membr. moist/pink, EOMI, Sclerae nonicteric Neck: Supple, 2+ carotid pulse no bruit, No LAD, Without JVD or thyroid abnormality Respiratory: Diminished, Crackles/rales Cardiovascular: Regular rate/rhythm, Normal S1 S2, Edema Capillary refill: <2 Seconds Gastrointestinal: Normal bowel sounds, No tenderness, Ascites Musculoskeletal: Still + tenderness over lower thoracic vertebralimiting transfer to chair Integumentary: No rashes Neurological: Normal speech, Normal strength at 5/5 x4 extr, Normal tone, Normal affect Assessment: Acute on chronic systolic congestive heart failure-prior on life vest , s/p self discontinued Dyspnea, anasarca, moderate to large right pleural effusion, small left pleural effusion-due to lack of dialysis Liver cirrhosis Large volume ascites /history of cirrhosis ESRD on HD Diabetes type 2insulin-dependent Hypertension Hyperlipidemia Hypothyroidism CAD with previous CABG T12 compression fracturenot candidate for surgery per [facility] at [facility] Plan: Still persistent back pain -Issues with getting dialysis at home since bedbound from thoracic compression fracture Continue pain regimen, add lidocaine patch to lower back Continue lidocaine patch and p.o. pain medication Continue physical therapy attempts at ambulation and transfers Case management working on home dialysis or transfer to dialysis via stretcher as outpatient Continue dialysis per nephrology team Volume status improving with dialysis Patient initially discussed with her regarding hospice and was agreeable but later decided against hospice and wants care at home Clinically stable for discharge if dialysis can be arranged Continue sliding scale with Accu-Cheks Continue as needed paracentesis Continue GI and DVT prophylaxis 03/05/22 12:14
[2022-03-05] MEDS: EPOETIN ALFA 10,000 UNIT/ML VIAL SQ SCH (17:44)
--- NOTE | 2022-03-05 18:04 | P.PN ---
Date of Service: 03/05/22 Vital Signs Temp Pulse Resp BP Pulse Ox 97.4 F 69 20 110/55 L 99 03/05/22 16:00 03/05/22 17:44 03/05/22 16:00 03/05/22 17:44 03/05/22 16:00 Medications Hydrocodone Bitart/Acetaminophen (Hydrocodone/Apap 7.5/325 Mg Tab) 1 tab PO Q6H PRN PRN Reason: Pain scale 5-7 (Moderate) Last Admin: 03/04/22 09:32 Dose: 1 tab Documented by: Atorvastatin Calcium (Atorvastatin 20 Mg Tab) 20 mg PO BEDTIME [facility] Last Admin: 03/04/22 20:46 Dose: 20 mg Documented by: Calcitriol (Calcitrol 0.25 Mcg Cap) 0.5 mcg PO DAILY [facility] Last Admin: 03/05/22 08:24 Dose: 0.5 mcg Documented by: Cholecalciferol (Vitamin D 5,000 Unit Cap) 5,000 unit PO DAILY [facility] Last Admin: 03/05/22 08:26 Dose: 5,000 unit Documented by: Clopidogrel Bisulfate (Clopidogrel 75 Mg Tablet) 75 mg PO DAILY [facility] Last Admin: 03/05/22 08:26 Dose: 75 mg Documented by: Coenzyme Q10 (Coenzyme Q10- 200 Mg Cap) 200 mg PO DAILY [facility] Last Admin: 03/05/22 08:33 Dose: 200 mg Documented by: Diphenhydramine HCl (Diphenhydramine 50 Mg/Ml Vial) 12.5 mg IV Q6H PRN PRN Reason: ITCHING Last Admin: 03/04/22 09:34 Dose: 12.5 mg Documented by: Docusate Sodium (Docusate Na 100 Mg Cap) 100 mg PO BID [facility] Last Admin: 03/05/22 08:24 Dose: 100 mg Documented by: Epoetin Gopi (Epoetin Gopi 10,000 Unit/Ml Vial) 10,000 unit SQ M,W,F [facility] Last Admin: 03/05/22 17:44 Dose: 10,000 unit Documented by: Furosemide (Furosemide 40 Mg/4 Ml Vial) 80 mg IV BIDL [facility] Last Admin: 03/05/22 17:44 Dose: 80 mg Documented by: Heparin Sodium (Porcine) (Heparin 5000 Unit/Ml 1 Ml Vial) 5,000 unit SQ Q12HR [facility] Last Admin: 03/05/22 08:28 Dose: 5,000 unit Documented by: Heparin Sodium (Porcine) (Heparin 1,000 Unit/Ml Vial) 2,000 unit IV EVERY HD [facility] Stop: 03/09/22 10:01 Last Admin: 03/05/22 11:28 Dose: 2,000 unit Documented by: Albumin Human (Albumin 25% 25 Gm) 100 mls @ 100 mls/hr IV EVERY HD [facility] Insulin Human Regular (Insulin -Regular Human 50 Unit/0.5 Ml Ml) 0 unit SQ ACHS [facility]; Protocol Last Admin: 03/05/22 16:30 Dose: Not Given Documented by: Levothyroxine Sodium (Levothyroxine Sod 0.125 Mg Tab) 0.125 mg PO DAILYAC [facility] Last Admin: 03/05/22 06:11 Dose: 0.125 mg Documented by: Lidocaine (Lidocaine 4% Patch) 1 patch TOP DAILY [facility] Last Admin: 03/05/22 08:25 Dose: 1 patch Documented by: Mannitol (Mannitol 25% 12.5 Gm/50 Ml Vial) 12.5 gm IV EVERY HD PRN PRN Reason: Titrate to SBP (MUST DEFINE) Midodrine (Midodrine Hcl 5 Mg Tablet) 5 mg PO BID [facility] Last Admin: 03/05/22 08:25 Dose: 5 mg Documented by: Morphine Sulfate (Morphine 2 Mg/Ml Syr) 2 mg IV Q6H PRN PRN Reason: Pain scale 5-7 (Moderate) Last Admin: 03/05/22 08:27 Dose: 2 mg Documented by: Ondansetron HCl (Ondansetron 4 Mg/2 Ml Vial) 4 mg IV Q6HP PRN PRN Reason: NAUSEA / VOMITING Sodium Chloride (Flush Normal Saline 10 Ml) 10 ml IV BID [facility] Last Admin: 03/05/22 08:29 Dose: 10 ml Documented by: Vitamin B Complex/Vit C/Folic Acid (Multivitamins,Therapeut 1 Tab) 1 tab PO DAILY [facility] Last Admin: 03/05/22 08:24 Dose: 1 tab Documented by: Assessment/ Plan: Nephrology No dyspnea No chest pain Weakness and fatigue Left hip pain and mid back pain No acute events overnight Vitals, medications, blood work and imaging reviewed in the chart. General: Oriented x3, Cooperative HEENT: Atraumatic Neck: Supple Respiratory: CTA Cardiovascular: No edema, Regular rate/rhythm Gastrointestinal: Distended, Tenderness Musculoskeletal: No clubbing, No contractures Integumentary: No rashes, No cyanosis Neurological: Normal speech Laboratory Data (last 24 hrs) 03/01/22 19:27: WBC 6.6, Hgb 10.6 L, Hct 32.7 L, Plt Count 154 Imagings Data: EXM DESCRIPTION: RAD - Chest Single View - 03/01/2022 8:50 pm CLINICAL HISTORY: DYSPNEA COMPARISON: Chest Single View dated 02/15/2022; Chest Pa And Lat (2 Views) dated 02/06/2022; Chest Single View dated 07/28/2021; Chest Pa And Lat (2 Views) dated 07/17/2021 FINDINGS: Lines: None. Lungs: Widespread bilateral pulmonary opacities, right greater than left. Pleural: Large right pleural effusion which is increased in size. Left pleural effusion. Cardiac: Severe cardiomegaly. Defibrillator. Bones: No acute fractures. Sternotomy. Other: IMPRESSION: Pulmonary edema with increased moderate to large right pleural effusion. EXAM DESCRIPTION: CTChest Abd Pelvis Wo Con - 03/01/2022 10:45 pm CLINICAL HISTORY: Dyspnea COMPARISON: Chest Abd Pelvis Wo Con dated 02/05/2022; Chest Abd Pelvis Wo Con dated 05/25/2019; THORAX WO CONTRAST dated 03/03/2015; THORAX WO CONTRAST dated 02/27/2015 TECHNIQUE: CT of the chest, abdomen, and pelvis was performed. All CT scans are performed using dose optimization technique as appropriate and may include automated exposure control or mA/KV adjustment according to patient size. FINDINGS: Thorax: Chest Wall: No abnormal mass Battery pack in the left chest wall. Lungs: Atelectasis as a result of the effusions. Pleura: Moderate to large right pleural effusion. Small left pleural effusion. Gris/Mediastinum: No lymphadenopathy. Aorta/Pulmonary Arteries: Unremarkable Heart: Cardiomegaly. Multi-vessel coronary artery disease. Abdomen/Pelvis: Liver: No acute abnormality or suspicious lesions. Biliary: No biliary ductal dilatation. Stomach: No significant focal abnormality. Duodenum: No significant focal abnormality. 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 The largest measures 11 millimeters. No pancreatic ductal dilatation. The pancreas is atrophic. Spleen: No significant abnormality. Adrenal: No suspicious lesions. Kidney/ureter: No hydronephrosis. No renal calculi. Retroperitoneum: No retroperitoneal adenopathy. Vascular: No aneurysm. Atherosclerosis Bowel: No significant focal abnormality. Peritoneum: Large volume of ascites. Bladder: Grossly unremarkable. Reproductive: No adnexal masses. Bones: No acute fracture. Sternotomy. Remote right upper to ring fracture. Osteopenia. Battery pack in left chest wall. Other: n/a IMPRESSION: Anasarca including moderate to large right and small left pleural effusions, large volume of ascites, and body wall edema. No other acute findings identified. Conclusions/Impression: ESRD -HD TIW -Daily HD PRN HTN with CKD/ CHF complicated by hypotension -Continue Midodrine Systolic CHF, A/C -HD with UF -Continue Lasix DM II with CKD -RISS Anemia in CKD -Retacrit TIW CKD MBD -Continue Vitamin D T12 Back Pain Left Hip Pain -Lidocaine patch for back pain -Continue PT as tolerated Case reviewed with Dr. Frias
[2022-03-05] MEDS: ATORVASTATIN 20 MG TAB PO SCH (20:53)
[2022-03-06] MEDS: LEVOTHYROXINE SOD 0.125 MG TAB PO SCH (05:28)
[2022-03-06] MEDS: INSULIN -REGULAR HUMAN 50 UNIT/0.5 ML ML SQ SCH ×4 (07:30→20:39)
[2022-03-06] MEDS: LIDOCAINE 4% PATCH TOP SCH (09:16)
[2022-03-06] MEDS: MORPHINE 2 MG/ML SYR IV PRN (09:16)
[2022-03-06] MEDS: COENZYME Q10- 200 MG CAP PO SCH (09:16)
[2022-03-06] MEDS: DIPHENHYDRAMINE 50 MG/ML VIAL IV PRN (09:17)
[2022-03-06] MEDS: FUROSEMIDE 40 MG/4 ML VIAL IV SCH ×2 (09:18→17:00)
[2022-03-06] MEDS: CALCITROL 0.25 MCG CAP PO SCH (09:20)
[2022-03-06] MEDS: DOCUSATE NA 100 MG CAP PO SCH ×2 (09:20→20:39)
[2022-03-06] MEDS: HEPARIN 5000 UNIT/ML 1 ML VIAL SQ SCH ×2 (09:21→20:39)
[2022-03-06] MEDS: MIDODRINE HCL 5 MG TABLET PO SCH ×2 (09:21→20:39)
[2022-03-06] MEDS: CLOPIDOGREL 75 MG TABLET PO SCH (09:21)
[2022-03-06] MEDS: MULTIVITAMINS,THERAPEUT 1 TAB PO SCH (09:21)
[2022-03-06] MEDS: VITAMIN D 5,000 UNIT CAP PO SCH (09:21)
--- NOTE | 2022-03-06 10:28 | P.PN ---
Date of Service: 03/06/22 Vital Signs Temp Pulse Resp BP Pulse Ox 97.3 F 76 18 115/62 98 03/06/22 08:00 03/06/22 09:18 03/06/22 08:00 03/06/22 09:18 03/06/22 08:00 Medications Hydrocodone Bitart/Acetaminophen (Hydrocodone/Apap 7.5/325 Mg Tab) 1 tab PO Q6H PRN PRN Reason: Pain scale 5-7 (Moderate) Last Admin: 03/04/22 09:32 Dose: 1 tab Documented by: Atorvastatin Calcium (Atorvastatin 20 Mg Tab) 20 mg PO BEDTIME [facility] Last Admin: 03/05/22 20:53 Dose: 20 mg Documented by: Calcitriol (Calcitrol 0.25 Mcg Cap) 0.5 mcg PO DAILY [facility] Last Admin: 03/06/22 09:20 Dose: 0.5 mcg Documented by: Cholecalciferol (Vitamin D 5,000 Unit Cap) 5,000 unit PO DAILY [facility] Last Admin: 03/06/22 09:21 Dose: 5,000 unit Documented by: Clopidogrel Bisulfate (Clopidogrel 75 Mg Tablet) 75 mg PO DAILY [facility] Last Admin: 03/06/22 09:21 Dose: 75 mg Documented by: Coenzyme Q10 (Coenzyme Q10- 200 Mg Cap) 200 mg PO DAILY [facility] Last Admin: 03/06/22 09:16 Dose: 200 mg Documented by: Diphenhydramine HCl (Diphenhydramine 50 Mg/Ml Vial) 12.5 mg IV Q6H PRN PRN Reason: ITCHING Last Admin: 03/06/22 09:17 Dose: 12.5 mg Documented by: Docusate Sodium (Docusate Na 100 Mg Cap) 100 mg PO BID [facility] Last Admin: 03/06/22 09:20 Dose: 100 mg Documented by: Epoetin Gopi (Epoetin Gopi 10,000 Unit/Ml Vial) 10,000 unit SQ M,W,F [facility] Last Admin: 03/05/22 17:44 Dose: 10,000 unit Documented by: Furosemide (Furosemide 40 Mg/4 Ml Vial) 80 mg IV BIDL [facility] Last Admin: 03/06/22 09:18 Dose: 80 mg Documented by: Heparin Sodium (Porcine) (Heparin 5000 Unit/Ml 1 Ml Vial) 5,000 unit SQ Q12HR [facility] Last Admin: 03/06/22 09:21 Dose: 5,000 unit Documented by: Heparin Sodium (Porcine) (Heparin 1,000 Unit/Ml Vial) 2,000 unit IV EVERY HD [facility] Stop: 03/09/22 10:01 Last Admin: 03/05/22 11:28 Dose: 2,000 unit Documented by: Albumin Human (Albumin 25% 25 Gm) 100 mls @ 100 mls/hr IV EVERY HD [facility] Insulin Human Regular (Insulin -Regular Human 50 Unit/0.5 Ml Ml) 0 unit SQ ACHS [facility]; Protocol Last Admin: 03/06/22 07:30 Dose: Not Given Documented by: Levothyroxine Sodium (Levothyroxine Sod 0.125 Mg Tab) 0.125 mg PO DAILYAC [facility] Last Admin: 03/06/22 05:28 Dose: 0.125 mg Documented by: Lidocaine (Lidocaine 4% Patch) 1 patch TOP DAILY [facility] Last Admin: 03/06/22 09:16 Dose: 1 patch Documented by: Mannitol (Mannitol 25% 12.5 Gm/50 Ml Vial) 12.5 gm IV EVERY HD PRN PRN Reason: Titrate to SBP (MUST DEFINE) Midodrine (Midodrine Hcl 5 Mg Tablet) 5 mg PO BID [facility] Last Admin: 03/06/22 09:21 Dose: 5 mg Documented by: Morphine Sulfate (Morphine 2 Mg/Ml Syr) 2 mg IV Q6H PRN PRN Reason: Pain scale 5-7 (Moderate) Last Admin: 03/06/22 09:16 Dose: 2 mg Documented by: Ondansetron HCl (Ondansetron 4 Mg/2 Ml Vial) 4 mg IV Q6HP PRN PRN Reason: NAUSEA / VOMITING Sodium Chloride (Flush Normal Saline 10 Ml) 10 ml IV BID [facility] Last Admin: 03/06/22 09:00 Dose: 10 ml Documented by: Vitamin B Complex/Vit C/Folic Acid (Multivitamins,Therapeut 1 Tab) 1 tab PO DAILY [facility] Last Admin: 03/06/22 09:21 Dose: 1 tab Documented by: Assessment/ Plan: Nephrology No dyspnea No chest pain Weakness and fatigue Left hip pain and mid back pain No acute events overnight Vitals, medications, blood work and imaging reviewed in the chart. General: Oriented x3, Cooperative HEENT: Atraumatic Neck: Supple Respiratory: CTA Cardiovascular: No edema, Regular rate/rhythm Gastrointestinal: Distended, Tenderness Musculoskeletal: No clubbing, No contractures Integumentary: No rashes, No cyanosis Neurological: Normal speech Laboratory Data (last 24 hrs) 03/01/22 19:27: WBC 6.6, Hgb 10.6 L, Hct 32.7 L, Plt Count 154 Imagings Data: EXM DESCRIPTION: RAD - Chest Single View - 03/01/2022 8:50 pm CLINICAL HISTORY: DYSPNEA COMPARISON: Chest Single View dated 02/15/2022; Chest Pa And Lat (2 Views) dated 02/06/2022; Chest Single View dated 07/28/2021; Chest Pa And Lat (2 Views) dated 07/17/2021 FINDINGS: Lines: None. Lungs: Widespread bilateral pulmonary opacities, right greater than left. Pleural: Large right pleural effusion which is increased in size. Left pleural effusion. Cardiac: Severe cardiomegaly. Defibrillator. Bones: No acute fractures. Sternotomy. Other: IMPRESSION: Pulmonary edema with increased moderate to large right pleural effusion. EXAM DESCRIPTION: CTChest Abd Pelvis Wo Con - 03/01/2022 10:45 pm CLINICAL HISTORY: Dyspnea COMPARISON: Chest Abd Pelvis Wo Con dated 02/05/2022; Chest Abd Pelvis Wo Con dated 05/25/2019; THORAX WO CONTRAST dated 03/03/2015; THORAX WO CONTRAST dated 02/27/2015 TECHNIQUE: CT of the chest, abdomen, and pelvis was performed. All CT scans are performed using dose optimization technique as appropriate and may include automated exposure control or mA/KV adjustment according to patient size. FINDINGS: Thorax: Chest Wall: No abnormal mass Battery pack in the left chest wall. Lungs: Atelectasis as a result of the effusions. Pleura: Moderate to large right pleural effusion. Small left pleural effusion. Gris/Mediastinum: No lymphadenopathy. Aorta/Pulmonary Arteries: Unremarkable Heart: Cardiomegaly. Multi-vessel coronary artery disease. Abdomen/Pelvis: Liver: No acute abnormality or suspicious lesions. Biliary: No biliary ductal dilatation. Stomach: No significant focal abnormality. Duodenum: No significant focal abnormality. 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 The largest measures 11 millimeters. No pancreatic ductal dilatation. The pancreas is atrophic. Spleen: No significant abnormality. Adrenal: No suspicious lesions. Kidney/ureter: No hydronephrosis. No renal calculi. Retroperitoneum: No retroperitoneal adenopathy. Vascular: No aneurysm. Atherosclerosis Bowel: No significant focal abnormality. Peritoneum: Large volume of ascites. Bladder: Grossly unremarkable. Reproductive: No adnexal masses. Bones: No acute fracture. Sternotomy. Remote right upper to ring fracture. Osteopenia. Battery pack in left chest wall. Other: n/a IMPRESSION: Anasarca including moderate to large right and small left pleural effusions, large volume of ascites, and body wall edema. No other acute findings identified. Conclusions/Impression: ESRD -HD TIW -Daily HD PRN HTN with CKD/ CHF complicated by hypotension -Continue Midodrine Systolic CHF, A/C -HD with UF -Continue Lasix DM II with CKD -RISS Anemia in CKD -Retacrit TIW CKD MBD -Continue Vitamin D T12 Back Pain Left Hip Pain -Lidocaine patch for back pain -Continue PT as tolerated
--- NOTE | 2022-03-06 10:53 | P.PN ---
Subjective Date of Service: 03/06/22 Chief Complaint: Anasarca, CHF exacerbation Subjective: No new changes (state back pain better now) Physical Examination - Vital Signs Temperature: 97.3 F Blood Pressure: 115/62 Pulse: 76 Respirations: 18 Pulse Ox (%): 98 Assessment And Plan - Current Problems (Diagnosis) (1) Congestive heart failure Onset Date: 04/11/18 Current Visit: No Status: Acute Qualifiers: (2) End stage renal disease on dialysis Current Visit: No Status: Acute (3) Diabetes mellitus Onset Date: 02/28/15 Current Visit: No Status: Chronic Physician Review: Patient Assessed, Agree with Above Assessment and Plan Physician Review Additional Text: - Physical Exam General: Alert, In no apparent distress, Oriented x3, Obeseon nasal cannula O2 HEENT: Atraumatic, PERRLA, Mucous membr. moist/pink, EOMI, Sclerae nonicteric Neck: Supple, 2+ carotid pulse no bruit, No LAD, Without JVD or thyroid abnormality Respiratory: Diminished, Crackles/rales Cardiovascular: Regular rate/rhythm, Normal S1 S2, Edema Capillary refill: <2 Seconds Gastrointestinal: Normal bowel sounds, No tenderness, Ascites Musculoskeletal: Still + tenderness over lower thoracic vertebralimiting transfer to chair Integumentary: No rashes Neurological: Normal speech, Normal strength at 5/5 x4 extr, Normal tone, Normal affect Assessment: Acute on chronic systolic congestive heart failure(prior on life vest , s/p self discontinued ) Dyspnea, anasarca, moderate to large right pleural effusion, small left pleural effusion-due to lack of dialysis Liver cirrhosis Large volume ascites /history of cirrhosis ESRD on HD Diabetes type 2insulin-dependent Hypertension Hyperlipidemia Hypothyroidism CAD with previous CABG T12 compression fracturenot candidate for [facility] Left Hip and back pain Plan: Awaiting discharge when dialysis issues arranged Improving back pain -Issues with getting dialysis at home since bedbound from thoracic compression fracture Continue pain regimen,lidocaine patch to lower back Continue physical therapy attempts at ambulation and transfers Case management working on home dialysis or transfer to dialysis via stretcher as outpatient Continue dialysis per nephrology team -Volume status improving with dialysis Patient initially discussed with her regarding hospice and was agreeable but later decided against hospice and wants care at home Clinically stable for discharge if dialysis can be arranged Continue sliding scale with Accu-Cheks Continue as needed paracentesis Continue GI and DVT prophylaxis 03/05/22 12:14 03/06/22 10:49
[2022-03-06] MEDS: ATORVASTATIN 20 MG TAB PO SCH (20:39)
[2022-03-07] MEDS: LEVOTHYROXINE SOD 0.125 MG TAB PO SCH (05:23)
[2022-03-07] MEDS: MORPHINE 2 MG/ML SYR IV PRN ×2 (05:33→20:43)
[2022-03-07] MEDS: DIPHENHYDRAMINE 50 MG/ML VIAL IV PRN ×3 (05:38→20:43)
[2022-03-07] MEDS: INSULIN -REGULAR HUMAN 50 UNIT/0.5 ML ML SQ SCH ×4 (07:30→21:00)
[2022-03-07] MEDS: LIDOCAINE 4% PATCH TOP SCH ×2 (09:00→09:36)
[2022-03-07] MEDS: FUROSEMIDE 40 MG/4 ML VIAL IV SCH ×2 (09:16→17:10)
[2022-03-07] MEDS: CALCITROL 0.25 MCG CAP PO SCH (09:17)
[2022-03-07] MEDS: VITAMIN D 5,000 UNIT CAP PO SCH (09:17)
[2022-03-07] MEDS: DOCUSATE NA 100 MG CAP PO SCH ×2 (09:17→20:43)
[2022-03-07] MEDS: MIDODRINE HCL 5 MG TABLET PO SCH ×2 (09:17→20:43)
[2022-03-07] MEDS: CLOPIDOGREL 75 MG TABLET PO SCH (09:17)
[2022-03-07] MEDS: HEPARIN 5000 UNIT/ML 1 ML VIAL SQ SCH ×2 (09:17→20:43)
[2022-03-07] MEDS: MULTIVITAMINS,THERAPEUT 1 TAB PO SCH (09:17)
[2022-03-07] MEDS: COENZYME Q10- 200 MG CAP PO SCH (09:18)
--- NOTE | 2022-03-07 13:11 | P.PN ---
Subjective Date of Service: 03/07/22 Chief Complaint: Anasarca, CHF exacerbation Subjective: No new changes, No C/O voiced Physical Examination - Vital Signs Temperature: 97.1 F Blood Pressure: 109/58 Pulse: 69 Respirations: 18 Pulse Ox (%): 100 Assessment And Plan - Current Problems (Diagnosis) (1) Congestive heart failure Onset Date: 04/11/18 Current Visit: No Status: Acute Qualifiers: (2) End stage renal disease on dialysis Current Visit: No Status: Acute (3) Diabetes mellitus Onset Date: 02/28/15 Current Visit: No Status: Chronic Physician Review: Patient Assessed, Agree with Above Assessment and Plan Physician Review Additional Text: - Physical Exam General: Alert, In no apparent distress, Oriented x3, Obeseon nasal cannula O2 HEENT: Atraumatic, PERRLA, Mucous membr. moist/pink, EOMI, Sclerae nonicteric Neck: Supple, 2+ carotid pulse no bruit, No LAD, Without JVD or thyroid abnormality Respiratory: Diminished, Crackles/rales Cardiovascular: Regular rate/rhythm, Normal S1 S2, Edema Capillary refill: <2 Seconds Gastrointestinal: Normal bowel sounds, No tenderness, Ascites Musculoskeletal: Still + tenderness over lower thoracic vertebralimiting transfer to chair Integumentary: No rashes Neurological: Normal speech, Normal strength at 5/5 x4 extr, Normal tone, Normal affect Assessment: Acute on chronic systolic congestive heart failure(prior on life vest , s/p self discontinued ) Dyspnea, anasarca, moderate to large right pleural effusion, small left pleural effusion-due to lack of dialysis Liver cirrhosis Large volume ascites /history of cirrhosis ESRD on HD Diabetes type 2insulin-dependent Hypertension Hyperlipidemia Hypothyroidism CAD with previous CABG T12 compression fracturenot candidate for surgery [facility] Left Hip and back pain Plan: Awaiting discharge when dialysis issues arranged Improving back pain -Issues with getting dialysis at home since bedbound from thoracic compression fracture Continue pain regimen,lidocaine patch to lower back Continue physical therapy attempts at ambulation and transfers Case management working on home dialysis or transfer to dialysis via stretcher as outpatient Continue dialysis per nephrology team -Volume status improving with dialysis Patient initially discussed with her regarding hospice and was agreeable but later decided against hospice and wants care at home Clinically stable for discharge if dialysis can be arranged Continue sliding scale with Accu-Cheks Continue as needed paracentesis Continue GI and DVT prophylaxis 03/07/22 13:11
--- NOTE | 2022-03-07 15:54 | P.PN ---
Date of Service: 03/07/22 Vital Signs Temp Pulse Resp BP Pulse Ox 97.1 F 69 18 109/58 L 100 03/07/22 13:11 03/07/22 13:11 03/07/22 13:11 03/07/22 13:11 03/07/22 13:11 Medications Hydrocodone Bitart/Acetaminophen (Hydrocodone/Apap 7.5/325 Mg Tab) 1 tab PO Q6H PRN PRN Reason: Pain scale 5-7 (Moderate) Last Admin: 03/04/22 09:32 Dose: 1 tab Documented by: Atorvastatin Calcium (Atorvastatin 20 Mg Tab) 20 mg PO BEDTIME [facility] Last Admin: 03/06/22 20:39 Dose: 20 mg Documented by: Calcitriol (Calcitrol 0.25 Mcg Cap) 0.5 mcg PO DAILY [facility] Last Admin: 03/07/22 09:17 Dose: 0.5 mcg Documented by: Cholecalciferol (Vitamin D 5,000 Unit Cap) 5,000 unit PO DAILY [facility] Last Admin: 03/07/22 09:17 Dose: 5,000 unit Documented by: Clopidogrel Bisulfate (Clopidogrel 75 Mg Tablet) 75 mg PO DAILY [facility] Last Admin: 03/07/22 09:17 Dose: 75 mg Documented by: Coenzyme Q10 (Coenzyme Q10- 200 Mg Cap) 200 mg PO DAILY [facility] Last Admin: 03/07/22 09:18 Dose: 200 mg Documented by: Diphenhydramine HCl (Diphenhydramine 50 Mg/Ml Vial) 12.5 mg IV Q6H PRN PRN Reason: ITCHING Last Admin: 03/07/22 11:49 Dose: 12.5 mg Documented by: Docusate Sodium (Docusate Na 100 Mg Cap) 100 mg PO BID [facility] Last Admin: 03/07/22 09:17 Dose: 100 mg Documented by: Epoetin Gopi (Epoetin Gopi 10,000 Unit/Ml Vial) 10,000 unit SQ M,W,F [facility] Last Admin: 03/05/22 17:44 Dose: 10,000 unit Documented by: Furosemide (Furosemide 40 Mg/4 Ml Vial) 80 mg IV BIDL [facility] Last Admin: 03/07/22 09:16 Dose: 80 mg Documented by: Heparin Sodium (Porcine) (Heparin 5000 Unit/Ml 1 Ml Vial) 5,000 unit SQ Q12HR [facility] Last Admin: 03/07/22 09:17 Dose: 5,000 unit Documented by: Heparin Sodium (Porcine) (Heparin 1,000 Unit/Ml Vial) 2,000 unit IV EVERY HD [facility] Stop: 03/09/22 10:01 Last Admin: 03/05/22 11:28 Dose: 2,000 unit Documented by: Albumin Human (Albumin 25% 25 Gm) 100 mls @ 100 mls/hr IV EVERY HD [facility] Insulin Human Regular (Insulin -Regular Human 50 Unit/0.5 Ml Ml) 0 unit SQ ACHS [facility]; Protocol Last Admin: 03/07/22 11:26 Dose: Not Given Documented by: Levothyroxine Sodium (Levothyroxine Sod 0.125 Mg Tab) 0.125 mg PO DAILYAC [facility] Last Admin: 03/07/22 05:23 Dose: 0.125 mg Documented by: Lidocaine (Lidocaine 4% Patch) 1 patch TOP DAILY [facility] Last Admin: 03/07/22 09:36 Dose: 1 patch Documented by: Mannitol (Mannitol 25% 12.5 Gm/50 Ml Vial) 12.5 gm IV EVERY HD PRN PRN Reason: Titrate to SBP (MUST DEFINE) Midodrine (Midodrine Hcl 5 Mg Tablet) 5 mg PO BID [facility] Last Admin: 03/07/22 09:17 Dose: 5 mg Documented by: Morphine Sulfate (Morphine 2 Mg/Ml Syr) 2 mg IV Q6H PRN PRN Reason: Pain scale 5-7 (Moderate) Last Admin: 03/07/22 05:33 Dose: 2 mg Documented by: Ondansetron HCl (Ondansetron 4 Mg/2 Ml Vial) 4 mg IV Q6HP PRN PRN Reason: NAUSEA / VOMITING Sodium Chloride (Flush Normal Saline 10 Ml) 10 ml IV BID [facility] Last Admin: 03/07/22 09:00 Dose: 10 ml Documented by: Vitamin B Complex/Vit C/Folic Acid (Multivitamins,Therapeut 1 Tab) 1 tab PO DAILY [facility] Last Admin: 03/07/22 09:17 Dose: 1 tab Documented by: Assessment/ Plan: Nephrology No dyspnea No chest pain Weakness and fatigue Left hip pain and mid back pain No acute events overnight Vitals, medications, blood work and imaging reviewed in the chart. General: Oriented x3, Cooperative HEENT: Atraumatic Neck: Supple Respiratory: CTA Cardiovascular: No edema, Regular rate/rhythm Gastrointestinal: Distended, Tenderness Musculoskeletal: No clubbing, No contractures Integumentary: No rashes, No cyanosis Neurological: Normal speech Laboratory Data (last 24 hrs) 03/01/22 19:27: WBC 6.6, Hgb 10.6 L, Hct 32.7 L, Plt Count 154 Imagings Data: EXM DESCRIPTION: RAD - Chest Single View - 03/01/2022 8:50 pm CLINICAL HISTORY: DYSPNEA COMPARISON: Chest Single View dated 02/15/2022; Chest Pa And Lat (2 Views) dated 02/06/2022; Chest Single View dated 07/28/2021; Chest Pa And Lat (2 Views) dated 07/17/2021 FINDINGS: Lines: None. Lungs: Widespread bilateral pulmonary opacities, right greater than left. Pleural: Large right pleural effusion which is increased in size. Left pleural effusion. Cardiac: Severe cardiomegaly. Defibrillator. Bones: No acute fractures. Sternotomy. Other: IMPRESSION: Pulmonary edema with increased moderate to large right pleural effusion. EXAM DESCRIPTION: CTChest Abd Pelvis Wo Con - 03/01/2022 10:45 pm CLINICAL HISTORY: Dyspnea COMPARISON: Chest Abd Pelvis Wo Con dated 02/05/2022; Chest Abd Pelvis Wo Con dated 05/25/2019; THORAX WO CONTRAST dated 03/03/2015; THORAX WO CONTRAST dated 02/27/2015 TECHNIQUE: CT of the chest, abdomen, and pelvis was performed. All CT scans are performed using dose optimization technique as appropriate and may include automated exposure control or mA/KV adjustment according to patient size. FINDINGS: Thorax: Chest Wall: No abnormal mass Battery pack in the left chest wall. Lungs: Atelectasis as a result of the effusions. Pleura: Moderate to large right pleural effusion. Small left pleural effusion. Gris/Mediastinum: No lymphadenopathy. Aorta/Pulmonary Arteries: Unremarkable Heart: Cardiomegaly. Multi-vessel coronary artery disease. Abdomen/Pelvis: Liver: No acute abnormality or suspicious lesions. Biliary: No biliary ductal dilatation. Stomach: No significant focal abnormality. Duodenum: No significant focal abnormality. 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 The largest measures 11 millimeters. No pancreatic ductal dilatation. The pancreas is atrophic. Spleen: No significant abnormality. Adrenal: No suspicious lesions. Kidney/ureter: No hydronephrosis. No renal calculi. Retroperitoneum: No retroperitoneal adenopathy. Vascular: No aneurysm. Atherosclerosis Bowel: No significant focal abnormality. Peritoneum: Large volume of ascites. Bladder: Grossly unremarkable. Reproductive: No adnexal masses. Bones: No acute fracture. Sternotomy. Remote right upper to ring fracture. Osteopenia. Battery pack in left chest wall. Other: n/a IMPRESSION: Anasarca including moderate to large right and small left pleural effusions, large volume of ascites, and body wall edema. No other acute findings identified. Conclusions/Impression: ESRD -HD TIW -Daily HD PRN HTN with CKD/ CHF complicated by hypotension -Continue Midodrine Systolic CHF, A/C -HD with UF -Continue Lasix DM II with CKD -RISS Anemia in CKD -Retacrit TIW CKD MBD -Continue Vitamin D T12 Back Pain Left Hip Pain -Lidocaine patch for back pain -Continue PT as tolerated
[2022-03-07] MEDS: ATORVASTATIN 20 MG TAB PO SCH (20:43)
[2022-03-08 05:04] LABS: Absolute Lymphocytes (CBC) 0.3 K/uL (0.7-4.9); Hematocrit 33.9 % (39.6-49.0); Lymphocytes % 7.3 % (15.3-44.8); MPV 8.3 fL (7.6-11.3); RBC Red Blood Cell Count 3.43 M/uL (4.33-5.43)
[2022-03-08 05:21] LABS: AST/SGOT 11 U/L (15-37); Albumin 3.1 g/dL (3.4-5.0); Alkaline Phosphatase 98 U/L (45-117); BUN Blood Urea Nitrogen 20 mg/dL (7-18); Bicarbonate 26 mmol/L (21-32); Bilirubin Total 0.7 mg/dL (0.2-1.0); Glomerular Filtration Rate 10 mL/min (=/>90); Glucose Level 120 mg/dL (74-106); Potassium 4.3 mmol/L (3.5-5.1); Sodium Level 135 mmol/L (136-145)
[2022-03-08 05:22] LABS: ALT/SGPT < 10 U/L (12-78)
[2022-03-08] MEDS: LEVOTHYROXINE SOD 0.125 MG TAB PO SCH (05:24)
[2022-03-08 05:39] LABS: Blood Morphology Comment NOTED (NOT SEEN); Platelet Estimate ADEQ; Polychromasia 1+
[2022-03-08] MEDS: INSULIN -REGULAR HUMAN 50 UNIT/0.5 ML ML SQ SCH ×4 (07:30→21:00)
[2022-03-08] MEDS: CALCITROL 0.25 MCG CAP PO SCH (08:05)
[2022-03-08] MEDS: DOCUSATE NA 100 MG CAP PO SCH ×2 (08:05→21:52)
[2022-03-08] MEDS: LIDOCAINE 4% PATCH TOP SCH (08:05)
[2022-03-08] MEDS: MIDODRINE HCL 5 MG TABLET PO SCH ×2 (08:05→21:52)
[2022-03-08] MEDS: COENZYME Q10- 200 MG CAP PO SCH (08:05)
[2022-03-08] MEDS: MULTIVITAMINS,THERAPEUT 1 TAB PO SCH (08:05)
[2022-03-08] MEDS: VITAMIN D 5,000 UNIT CAP PO SCH (08:06)
[2022-03-08] MEDS: FUROSEMIDE 40 MG/4 ML VIAL IV SCH ×2 (08:06→16:20)
[2022-03-08] MEDS: CLOPIDOGREL 75 MG TABLET PO SCH (08:06)
[2022-03-08] MEDS: HEPARIN 5000 UNIT/ML 1 ML VIAL SQ SCH ×2 (08:06→21:52)
[2022-03-08] MEDS: DIPHENHYDRAMINE 50 MG/ML VIAL IV PRN (14:21)
[2022-03-08] MEDS: HYDROCODONE/APAP 10/325 TAB PO PRN (14:21)
[2022-03-08] MEDS: EPOETIN ALFA 10,000 UNIT/ML VIAL SQ SCH (16:21)
[2022-03-08] MEDS: ATORVASTATIN 20 MG TAB PO SCH (21:52)
[2022-03-09 04:32] LABS: Absolute Lymphocytes (CBC) 0.6 K/uL (0.7-4.9); Hematocrit 34.7 % (39.6-49.0); Lymphocytes % 15.5 % (15.3-44.8); MPV 8.7 fL (7.6-11.3); RBC Red Blood Cell Count 3.45 M/uL (4.33-5.43)
[2022-03-09 05:00] LABS: Albumin 3.1 g/dL (3.4-5.0); Bilirubin Total 0.6 mg/dL (0.2-1.0); Potassium 4.2 mmol/L (3.5-5.1); Protein, Total 7.1 g/dL (6.4-8.2)
[2022-03-09 05:27] VITALS: BMI 27.1
[2022-03-09] MEDS: LEVOTHYROXINE SOD 0.125 MG TAB PO SCH (06:16)
[2022-03-09] MEDS: INSULIN -REGULAR HUMAN 50 UNIT/0.5 ML ML SQ SCH ×4 (07:30→21:00)
[2022-03-09] MEDS: HEPARIN 5000 UNIT/ML 1 ML VIAL SQ SCH ×2 (08:00→21:20)
[2022-03-09] MEDS: MULTIVITAMINS,THERAPEUT 1 TAB PO SCH (08:00)
[2022-03-09] MEDS: COENZYME Q10- 200 MG CAP PO SCH (08:00)
[2022-03-09] MEDS: CALCITROL 0.25 MCG CAP PO SCH ×2 (08:00→09:00)
[2022-03-09] MEDS: DOCUSATE NA 100 MG CAP PO SCH ×2 (08:00→21:20)
[2022-03-09] MEDS: CLOPIDOGREL 75 MG TABLET PO SCH (08:00)
[2022-03-09] MEDS: MIDODRINE HCL 5 MG TABLET PO SCH ×2 (08:01→21:20)
[2022-03-09] MEDS: VITAMIN D 5,000 UNIT CAP PO SCH (08:01)
[2022-03-09] MEDS: LIDOCAINE 4% PATCH TOP SCH (08:01)
[2022-03-09] MEDS: FUROSEMIDE 40 MG/4 ML VIAL IV SCH ×2 (08:01→17:42)
--- NOTE | 2022-03-09 17:42 | P.PN ---
Date of Service: 03/08/22 Vital Signs Temp Pulse Resp BP Pulse Ox 97.8 F 77 18 110/57 L 90 L 03/09/22 16:00 03/09/22 16:00 03/09/22 16:00 03/09/22 16:00 03/09/22 16:00 Medications Hydrocodone Bitart/Acetaminophen (Hydrocodone/Apap 10/325 Tab) 1 tab PO Q6H PRN PRN Reason: Pain scale 5-7 (Moderate) Last Admin: 03/08/22 14:21 Dose: 1 tab Documented by: Atorvastatin Calcium (Atorvastatin 20 Mg Tab) 20 mg PO BEDTIME [facility] Last Admin: 03/08/22 21:52 Dose: 20 mg Documented by: Calcitriol (Calcitrol 0.25 Mcg Cap) 0.5 mcg PO DAILY [facility] Last Admin: 03/09/22 08:00 Dose: 0.25 mcg Documented by: Cholecalciferol (Vitamin D 5,000 Unit Cap) 5,000 unit PO DAILY [facility] Last Admin: 03/09/22 08:01 Dose: 5,000 unit Documented by: Clopidogrel Bisulfate (Clopidogrel 75 Mg Tablet) 75 mg PO DAILY [facility] Last Admin: 03/09/22 08:00 Dose: 75 mg Documented by: Coenzyme Q10 (Coenzyme Q10- 200 Mg Cap) 200 mg PO DAILY [facility] Last Admin: 03/09/22 08:00 Dose: 200 mg Documented by: Diphenhydramine HCl (Diphenhydramine 50 Mg/Ml Vial) 12.5 mg IV Q6H PRN PRN Reason: ITCHING Last Admin: 03/08/22 14:21 Dose: 12.5 mg Documented by: Docusate Sodium (Docusate Na 100 Mg Cap) 100 mg PO BID [facility] Last Admin: 03/09/22 08:00 Dose: 100 mg Documented by: Epoetin Ogpi (Epoetin Gopi 10,000 Unit/Ml Vial) 10,000 unit SQ M,W,F [facility] Last Admin: 03/08/22 16:21 Dose: 10,000 unit Documented by: Furosemide (Furosemide 40 Mg/4 Ml Vial) 80 mg IV BIDL [facility] Last Admin: 03/09/22 08:01 Dose: 80 mg Documented by: Heparin Sodium (Porcine) (Heparin 5000 Unit/Ml 1 Ml Vial) 5,000 unit SQ Q12HR [facility] Last Admin: 03/09/22 08:00 Dose: 5,000 unit Documented by: Albumin Human (Albumin 25% 25 Gm) 100 mls @ 100 mls/hr IV EVERY HD [facility] Insulin Human Regular (Insulin -Regular Human 50 Unit/0.5 Ml Ml) 0 unit SQ ACHS [facility]; Protocol Last Admin: 03/09/22 15:46 Dose: Not Given Documented by: Levothyroxine Sodium (Levothyroxine Sod 0.125 Mg Tab) 0.125 mg PO DAILYAC [facility] Last Admin: 03/09/22 06:16 Dose: 0.125 mg Documented by: Lidocaine (Lidocaine 4% Patch) 1 patch TOP DAILY [facility] Last Admin: 03/09/22 08:01 Dose: 1 patch Documented by: Mannitol (Mannitol 25% 12.5 Gm/50 Ml Vial) 12.5 gm IV EVERY HD PRN PRN Reason: Titrate to SBP (MUST DEFINE) Midodrine (Midodrine Hcl 5 Mg Tablet) 5 mg PO BID [facility] Last Admin: 03/09/22 08:01 Dose: 5 mg Documented by: Ondansetron HCl (Ondansetron 4 Mg/2 Ml Vial) 4 mg IV Q6HP PRN PRN Reason: NAUSEA / VOMITING Last Admin: 03/09/22 07:55 Dose: 4 mg Documented by: Sodium Chloride (Flush Normal Saline 10 Ml) 10 ml IV BID [facility] Last Admin: 03/09/22 08:01 Dose: 10 ml Documented by: Vitamin B Complex/Vit C/Folic Acid (Multivitamins,Therapeut 1 Tab) 1 tab PO DAILY [facility] Last Admin: 03/09/22 08:00 Dose: 1 tab Documented by: Assessment/ Plan: Nephrology No dyspnea No chest pain Weakness and fatigue Left hip pain and mid back pain No acute events overnight Vitals, medications, blood work and imaging reviewed in the chart. General: Oriented x3, Cooperative HEENT: Atraumatic Neck: Supple Respiratory: CTA Cardiovascular: No edema, Regular rate/rhythm Gastrointestinal: Distended, Tenderness Musculoskeletal: No clubbing, No contractures Integumentary: No rashes, No cyanosis Neurological: Normal speech Laboratory Data (last 24 hrs) 03/01/22 19:27: WBC 6.6, Hgb 10.6 L, Hct 32.7 L, Plt Count 154 Imagings Data: EXM DESCRIPTION: RAD - Chest Single View - 03/01/2022 8:50 pm CLINICAL HISTORY: DYSPNEA COMPARISON: Chest Single View dated 02/15/2022; Chest Pa And Lat (2 Views) dated 02/06/2022; Chest Single View dated 07/28/2021; Chest Pa And Lat (2 Views) dated 07/17/2021 FINDINGS: Lines: None. Lungs: Widespread bilateral pulmonary opacities, right greater than left. Pleural: Large right pleural effusion which is increased in size. Left pleural effusion. Cardiac: Severe cardiomegaly. Defibrillator. Bones: No acute fractures. Sternotomy. Other: IMPRESSION: Pulmonary edema with increased moderate to large right pleural effusion. EXAM DESCRIPTION: CTChest Abd Pelvis Wo Con - 03/01/2022 10:45 pm CLINICAL HISTORY: Dyspnea COMPARISON: Chest Abd Pelvis Wo Con dated 02/05/2022; Chest Abd Pelvis Wo Con dated 05/25/2019; THORAX WO CONTRAST dated 03/03/2015; THORAX WO CONTRAST dated 02/27/2015 TECHNIQUE: CT of the chest, abdomen, and pelvis was performed. All CT scans are performed using dose optimization technique as appropriate and may include automated exposure control or mA/KV adjustment according to patient size. FINDINGS: Thorax: Chest Wall: No abnormal mass Battery pack in the left chest wall. Lungs: Atelectasis as a result of the effusions. Pleura: Moderate to large right pleural effusion. Small left pleural effusion. Gris/Mediastinum: No lymphadenopathy. Aorta/Pulmonary Arteries: Unremarkable Heart: Cardiomegaly. Multi-vessel coronary artery disease. Abdomen/Pelvis: Liver: No acute abnormality or suspicious lesions. Biliary: No biliary ductal dilatation. Stomach: No significant focal abnormality. Duodenum: No significant focal abnormality. 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 The largest measures 11 millimeters. No pancreatic ductal dilatation. The pancreas is atrophic. Spleen: No significant abnormality. Adrenal: No suspicious lesions. Kidney/ureter: No hydronephrosis. No renal calculi. Retroperitoneum: No retroperitoneal adenopathy. Vascular: No aneurysm. Atherosclerosis Bowel: No significant focal abnormality. Peritoneum: Large volume of ascites. Bladder: Grossly unremarkable. Reproductive: No adnexal masses. Bones: No acute fracture. Sternotomy. Remote right upper to ring fracture. Osteopenia. Battery pack in left chest wall. Other: n/a IMPRESSION: Anasarca including moderate to large right and small left pleural effusions, large volume of ascites, and body wall edema. No other acute findings identified. Conclusions/Impression: ESRD -HD TIW -Daily HD PRN HTN with CKD/ CHF complicated by hypotension -Continue Midodrine Systolic CHF, A/C -HD with UF -Continue Lasix DM II with CKD -RISS Anemia in CKD -Retacrit TIW CKD MBD -Continue Vitamin D T12 Back Pain Left Hip Pain -Lidocaine patch for back pain -Continue PT as tolerated
--- NOTE | 2022-03-09 17:45 | P.PN ---
Date of Service: 03/09/22 Vital Signs Temp Pulse Resp BP Pulse Ox 97.8 F 77 18 110/57 L 90 L 03/09/22 16:00 03/09/22 16:00 03/09/22 16:00 03/09/22 16:00 03/09/22 16:00 Medications Hydrocodone Bitart/Acetaminophen (Hydrocodone/Apap 10/325 Tab) 1 tab PO Q6H PRN PRN Reason: Pain scale 5-7 (Moderate) Last Admin: 03/08/22 14:21 Dose: 1 tab Documented by: Atorvastatin Calcium (Atorvastatin 20 Mg Tab) 20 mg PO BEDTIME [facility] Last Admin: 03/08/22 21:52 Dose: 20 mg Documented by: Calcitriol (Calcitrol 0.25 Mcg Cap) 0.5 mcg PO DAILY [facility] Last Admin: 03/09/22 08:00 Dose: 0.25 mcg Documented by: Cholecalciferol (Vitamin D 5,000 Unit Cap) 5,000 unit PO DAILY [facility] Last Admin: 03/09/22 08:01 Dose: 5,000 unit Documented by: Clopidogrel Bisulfate (Clopidogrel 75 Mg Tablet) 75 mg PO DAILY [facility] Last Admin: 03/09/22 08:00 Dose: 75 mg Documented by: Coenzyme Q10 (Coenzyme Q10- 200 Mg Cap) 200 mg PO DAILY [facility] Last Admin: 03/09/22 08:00 Dose: 200 mg Documented by: Diphenhydramine HCl (Diphenhydramine 50 Mg/Ml Vial) 12.5 mg IV Q6H PRN PRN Reason: ITCHING Last Admin: 03/08/22 14:21 Dose: 12.5 mg Documented by: Docusate Sodium (Docusate Na 100 Mg Cap) 100 mg PO BID [facility] Last Admin: 03/09/22 08:00 Dose: 100 mg Documented by: Epoetin Gopi (Epoetin Gopi 10,000 Unit/Ml Vial) 10,000 unit SQ M,W,F [facility] Last Admin: 03/08/22 16:21 Dose: 10,000 unit Documented by: Furosemide (Furosemide 40 Mg/4 Ml Vial) 80 mg IV BIDL [facility] Last Admin: 03/09/22 08:01 Dose: 80 mg Documented by: Heparin Sodium (Porcine) (Heparin 5000 Unit/Ml 1 Ml Vial) 5,000 unit SQ Q12HR [facility] Last Admin: 03/09/22 08:00 Dose: 5,000 unit Documented by: Albumin Human (Albumin 25% 25 Gm) 100 mls @ 100 mls/hr IV EVERY HD [facility] Insulin Human Regular (Insulin -Regular Human 50 Unit/0.5 Ml Ml) 0 unit SQ ACHS [facility]; Protocol Last Admin: 03/09/22 15:46 Dose: Not Given Documented by: Levothyroxine Sodium (Levothyroxine Sod 0.125 Mg Tab) 0.125 mg PO DAILYAC [facility] Last Admin: 03/09/22 06:16 Dose: 0.125 mg Documented by: Lidocaine (Lidocaine 4% Patch) 1 patch TOP DAILY [facility] Last Admin: 03/09/22 08:01 Dose: 1 patch Documented by: Mannitol (Mannitol 25% 12.5 Gm/50 Ml Vial) 12.5 gm IV EVERY HD PRN PRN Reason: Titrate to SBP (MUST DEFINE) Midodrine (Midodrine Hcl 5 Mg Tablet) 5 mg PO BID [facility] Last Admin: 03/09/22 08:01 Dose: 5 mg Documented by: Ondansetron HCl (Ondansetron 4 Mg/2 Ml Vial) 4 mg IV Q6HP PRN PRN Reason: NAUSEA / VOMITING Last Admin: 03/09/22 07:55 Dose: 4 mg Documented by: Sodium Chloride (Flush Normal Saline 10 Ml) 10 ml IV BID [facility] Last Admin: 03/09/22 08:01 Dose: 10 ml Documented by: Vitamin B Complex/Vit C/Folic Acid (Multivitamins,Therapeut 1 Tab) 1 tab PO DAILY [facility] Last Admin: 03/09/22 08:00 Dose: 1 tab Documented by: Assessment/ Plan: Nephrology No dyspnea No chest pain Weakness and fatigue Left hip pain and mid back pain No acute events overnight Vitals, medications, blood work and imaging reviewed in the chart. General: Oriented x3, Cooperative HEENT: Atraumatic Neck: Supple Respiratory: CTA Cardiovascular: No edema, Regular rate/rhythm Gastrointestinal: Distended, Tenderness Musculoskeletal: No clubbing, No contractures Integumentary: No rashes, No cyanosis Neurological: Normal speech Laboratory Data (last 24 hrs) 03/01/22 19:27: WBC 6.6, Hgb 10.6 L, Hct 32.7 L, Plt Count 154 Imagings Data: EXM DESCRIPTION: RAD - Chest Single View - 03/01/2022 8:50 pm CLINICAL HISTORY: DYSPNEA COMPARISON: Chest Single View dated 02/15/2022; Chest Pa And Lat (2 Views) dated 02/06/2022; Chest Single View dated 07/28/2021; Chest Pa And Lat (2 Views) dated 07/17/2021 FINDINGS: Lines: None. Lungs: Widespread bilateral pulmonary opacities, right greater than left. Pleural: Large right pleural effusion which is increased in size. Left pleural effusion. Cardiac: Severe cardiomegaly. Defibrillator. Bones: No acute fractures. Sternotomy. Other: IMPRESSION: Pulmonary edema with increased moderate to large right pleural effusion. EXAM DESCRIPTION: CTChest Abd Pelvis Wo Con - 03/01/2022 10:45 pm CLINICAL HISTORY: Dyspnea COMPARISON: Chest Abd Pelvis Wo Con dated 02/05/2022; Chest Abd Pelvis Wo Con dated 05/25/2019; THORAX WO CONTRAST dated 03/03/2015; THORAX WO CONTRAST dated 02/27/2015 TECHNIQUE: CT of the chest, abdomen, and pelvis was performed. All CT scans are performed using dose optimization technique as appropriate and may include automated exposure control or mA/KV adjustment according to patient size. FINDINGS: Thorax: Chest Wall: No abnormal mass Battery pack in the left chest wall. Lungs: Atelectasis as a result of the effusions. Pleura: Moderate to large right pleural effusion. Small left pleural effusion. Gris/Mediastinum: No lymphadenopathy. Aorta/Pulmonary Arteries: Unremarkable Heart: Cardiomegaly. Multi-vessel coronary artery disease. Abdomen/Pelvis: Liver: No acute abnormality or suspicious lesions. Biliary: No biliary ductal dilatation. Stomach: No significant focal abnormality. Duodenum: No significant focal abnormality. 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 The largest measures 11 millimeters. No pancreatic ductal dilatation. The pancreas is atrophic. Spleen: No significant abnormality. Adrenal: No suspicious lesions. Kidney/ureter: No hydronephrosis. No renal calculi. Retroperitoneum: No retroperitoneal adenopathy. Vascular: No aneurysm. Atherosclerosis Bowel: No significant focal abnormality. Peritoneum: Large volume of ascites. Bladder: Grossly unremarkable. Reproductive: No adnexal masses. Bones: No acute fracture. Sternotomy. Remote right upper to ring fracture. Osteopenia. Battery pack in left chest wall. Other: n/a IMPRESSION: Anasarca including moderate to large right and small left pleural effusions, large volume of ascites, and body wall edema. No other acute findings identified. Conclusions/Impression: ESRD -HD TIW -Daily HD PRN HTN with CKD/ CHF complicated by hypotension -Continue Midodrine Systolic CHF, A/C -HD with UF -Continue Lasix DM II with CKD -RISS Anemia in CKD -Retacrit TIW CKD MBD -Continue Vitamin D T12 Back Pain Left Hip Pain -Lidocaine patch for back pain -Continue PT as tolerated
[2022-03-09] MEDS: ATORVASTATIN 20 MG TAB PO SCH (21:20)
[2022-03-09] MEDS: HYDROCODONE/APAP 10/325 TAB PO PRN (21:29)
[2022-03-09] MEDS: DIPHENHYDRAMINE 50 MG/ML VIAL IV PRN (21:30)
[2022-03-10] MEDS: LEVOTHYROXINE SOD 0.125 MG TAB PO SCH (05:31)
[2022-03-10 05:48] LABS: Absolute Lymphocytes (CBC) 0.8 K/uL (0.7-4.9); Hematocrit 34.3 % (39.6-49.0); Lymphocytes % 17.1 % (15.3-44.8); MPV 8.5 fL (7.6-11.3); RBC Red Blood Cell Count 3.38 M/uL (4.33-5.43)
[2022-03-10 05:59] LABS: Bilirubin Total 0.8 mg/dL (0.2-1.0); Phosphorus 3.8 mg/dL (2.5-4.9); Potassium 4.5 mmol/L (3.5-5.1); Protein, Total 7.1 g/dL (6.4-8.2)
[2022-03-10] MEDS: INSULIN -REGULAR HUMAN 50 UNIT/0.5 ML ML SQ SCH ×4 (07:30→20:51)
[2022-03-10] MEDS: DOCUSATE NA 100 MG CAP PO SCH ×2 (09:00→20:49)
[2022-03-10] MEDS: FUROSEMIDE 40 MG/4 ML VIAL IV SCH ×2 (09:00→18:34)
[2022-03-10] MEDS: HEPARIN 5000 UNIT/ML 1 ML VIAL SQ SCH ×2 (09:00→20:51)
[2022-03-10] MEDS: VITAMIN D 5,000 UNIT CAP PO SCH (09:00)
[2022-03-10] MEDS: MIDODRINE HCL 5 MG TABLET PO SCH ×2 (09:00→20:51)
[2022-03-10] MEDS: CALCITROL 0.25 MCG CAP PO SCH ×2 (09:00→18:31)
[2022-03-10] MEDS: CLOPIDOGREL 75 MG TABLET PO SCH (09:00)
[2022-03-10] MEDS: LIDOCAINE 4% PATCH TOP SCH (09:00)
[2022-03-10] MEDS: COENZYME Q10- 200 MG CAP PO SCH (09:00)
[2022-03-10] MEDS: MULTIVITAMINS,THERAPEUT 1 TAB PO SCH (09:00)
[2022-03-10] MEDS: EPOETIN ALFA 10,000 UNIT/ML VIAL SQ SCH (18:00)
[2022-03-10] MEDS: DIPHENHYDRAMINE 50 MG/ML VIAL IV PRN (18:48)
--- NOTE | 2022-03-10 20:10 | P.PN ---
Date of Service: 03/10/22 Vital Signs Temp Pulse Resp BP Pulse Ox 97.4 F 76 19 121/62 96 03/10/22 20:00 03/10/22 20:00 03/10/22 20:00 03/10/22 20:00 03/10/22 20:00 Medications Hydrocodone Bitart/Acetaminophen (Hydrocodone/Apap 10/325 Tab) 1 tab PO Q6H PRN PRN Reason: Pain scale 5-7 (Moderate) Last Admin: 03/09/22 21:29 Dose: 1 tab Documented by: Atorvastatin Calcium (Atorvastatin 20 Mg Tab) 20 mg PO BEDTIME [facility] Last Admin: 03/09/22 21:20 Dose: 20 mg Documented by: Calcitriol (Calcitrol 0.25 Mcg Cap) 0.5 mcg PO DAILY [facility] Last Admin: 03/10/22 18:31 Dose: 0.5 mcg Documented by: Cholecalciferol (Vitamin D 5,000 Unit Cap) 5,000 unit PO DAILY [facility] Last Admin: 03/10/22 09:00 Dose: 5,000 unit Documented by: Clopidogrel Bisulfate (Clopidogrel 75 Mg Tablet) 75 mg PO DAILY [facility] Last Admin: 03/10/22 09:00 Dose: 75 mg Documented by: Coenzyme Q10 (Coenzyme Q10- 200 Mg Cap) 200 mg PO DAILY [facility] Last Admin: 03/10/22 09:00 Dose: 200 mg Documented by: Diphenhydramine HCl (Diphenhydramine 50 Mg/Ml Vial) 12.5 mg IV Q6H PRN PRN Reason: ITCHING Last Admin: 03/10/22 18:48 Dose: 12.5 mg Documented by: Docusate Sodium (Docusate Na 100 Mg Cap) 100 mg PO BID [facility] Last Admin: 03/10/22 09:00 Dose: 100 mg Documented by: Epoetin Gopi (Epoetin Gopi 10,000 Unit/Ml Vial) 10,000 unit SQ M,W,F [facility] Last Admin: 03/10/22 18:00 Dose: 10,000 unit Documented by: Furosemide (Furosemide 40 Mg/4 Ml Vial) 80 mg IV BIDL [facility] Last Admin: 03/10/22 18:34 Dose: 80 mg Documented by: Heparin Sodium (Porcine) (Heparin 5000 Unit/Ml 1 Ml Vial) 5,000 unit SQ Q12HR [facility] Last Admin: 03/10/22 09:00 Dose: 5,000 unit Documented by: Heparin Sodium (Porcine) (Heparin 1,000 Unit/Ml Vial) 2,000 unit IV EVERY HD PRN PRN Reason: DIALYSIS Last Admin: 03/10/22 09:28 Dose: 2,000 unit Documented by: Albumin Human (Albumin 25% 25 Gm) 100 mls @ 100 mls/hr IV EVERY HD [facility] Insulin Human Regular (Insulin -Regular Human 50 Unit/0.5 Ml Ml) 0 unit SQ ACHS [facility]; Protocol Last Admin: 03/10/22 15:45 Dose: Not Given Documented by: Levothyroxine Sodium (Levothyroxine Sod 0.125 Mg Tab) 0.125 mg PO DAILYAC [facility] Last Admin: 03/10/22 05:31 Dose: 0.125 mg Documented by: Lidocaine (Lidocaine 4% Patch) 1 patch TOP DAILY [facility] Last Admin: 03/10/22 09:00 Dose: 1 patch Documented by: Mannitol (Mannitol 25% 12.5 Gm/50 Ml Vial) 12.5 gm IV EVERY HD PRN PRN Reason: Titrate to SBP (MUST DEFINE) Midodrine (Midodrine Hcl 5 Mg Tablet) 5 mg PO BID [facility] Last Admin: 03/10/22 09:00 Dose: 5 mg Documented by: Ondansetron HCl (Ondansetron 4 Mg/2 Ml Vial) 4 mg IV Q6HP PRN PRN Reason: NAUSEA / VOMITING Last Admin: 03/09/22 07:55 Dose: 4 mg Documented by: Sodium Chloride (Flush Normal Saline 10 Ml) 10 ml IV BID [facility] Last Admin: 03/10/22 09:00 Dose: 10 ml Documented by: Vitamin B Complex/Vit C/Folic Acid (Multivitamins,Therapeut 1 Tab) 1 tab PO DAILY [facility] Last Admin: 03/10/22 09:00 Dose: 1 tab Documented by: Assessment/ Plan: Nephrology No dyspnea No chest pain Weakness and fatigue Left hip pain and mid back pain No acute events overnight Vitals, medications, blood work and imaging reviewed in the chart. General: Oriented x3, Cooperative HEENT: Atraumatic Neck: Supple Respiratory: CTA Cardiovascular: No edema, Regular rate/rhythm Gastrointestinal: Distended, Tenderness Musculoskeletal: No clubbing, No contractures Integumentary: No rashes, No cyanosis Neurological: Normal speech Laboratory Data (last 24 hrs) 03/01/22 19:27: WBC 6.6, Hgb 10.6 L, Hct 32.7 L, Plt Count 154 Imagings Data: EXM DESCRIPTION: RAD - Chest Single View - 03/01/2022 8:50 pm CLINICAL HISTORY: DYSPNEA COMPARISON: Chest Single View dated 02/15/2022; Chest Pa And Lat (2 Views) dated 02/06/2022; Chest Single View dated 07/28/2021; Chest Pa And Lat (2 Views) dated 07/17/2021 FINDINGS: Lines: None. Lungs: Widespread bilateral pulmonary opacities, right greater than left. Pleural: Large right pleural effusion which is increased in size. Left pleural effusion. Cardiac: Severe cardiomegaly. Defibrillator. Bones: No acute fractures. Sternotomy. Other: IMPRESSION: Pulmonary edema with increased moderate to large right pleural effusion. EXAM DESCRIPTION: CTChest Abd Pelvis Wo Con - 03/01/2022 10:45 pm CLINICAL HISTORY: Dyspnea COMPARISON: Chest Abd Pelvis Wo Con dated 02/05/2022; Chest Abd Pelvis Wo Con dated 05/25/2019; THORAX WO CONTRAST dated 03/03/2015; THORAX WO CONTRAST dated 02/27/2015 TECHNIQUE: CT of the chest, abdomen, and pelvis was performed. All CT scans are performed using dose optimization technique as appropriate and may include automated exposure control or mA/KV adjustment according to patient size. FINDINGS: Thorax: Chest Wall: No abnormal mass Battery pack in the left chest wall. Lungs: Atelectasis as a result of the effusions. Pleura: Moderate to large right pleural effusion. Small left pleural effusion. Gris/Mediastinum: No lymphadenopathy. Aorta/Pulmonary Arteries: Unremarkable Heart: Cardiomegaly. Multi-vessel coronary artery disease. Abdomen/Pelvis: Liver: No acute abnormality or suspicious lesions. Biliary: No biliary ductal dilatation. Stomach: No significant focal abnormality. Duodenum: No significant focal abnormality. 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 The largest measures 11 millimeters. No pancreatic ductal dilatation. The pancreas is atrophic. Spleen: No significant abnormality. Adrenal: No suspicious lesions. Kidney/ureter: No hydronephrosis. No renal calculi. Retroperitoneum: No retroperitoneal adenopathy. Vascular: No aneurysm. Atherosclerosis Bowel: No significant focal abnormality. Peritoneum: Large volume of ascites. Bladder: Grossly unremarkable. Reproductive: No adnexal masses. Bones: No acute fracture. Sternotomy. Remote right upper to ring fracture. Osteopenia. Battery pack in left chest wall. Other: n/a IMPRESSION: Anasarca including moderate to large right and small left pleural effusions, large volume of ascites, and body wall edema. No other acute findings identified. Conclusions/Impression: ESRD -HD TIW -Daily HD PRN -Seen and examined on HD HTN with CKD/ CHF complicated by hypotension -Continue Midodrine Systolic CHF, A/C -HD with UF -Continue Lasix DM II with CKD -RISS Anemia in CKD -Retacrit TIW CKD MBD -Continue Vitamin D T12 Back Pain Left Hip Pain -Lidocaine patch for back pain -Continue PT as tolerated Case reviewed with Dr. Phelps
[2022-03-10] MEDS: ATORVASTATIN 20 MG TAB PO SCH (20:50)
[2022-03-11 04:48] LABS: Bilirubin Total 0.7 mg/dL (0.2-1.0); Potassium 4.4 mmol/L (3.5-5.1); Protein, Total 6.9 g/dL (6.4-8.2)
[2022-03-11] MEDS: LEVOTHYROXINE SOD 0.125 MG TAB PO SCH (06:08)
[2022-03-11] MEDS: HYDROCODONE/APAP 10/325 TAB PO PRN ×2 (06:08→20:19)
[2022-03-11] MEDS: DIPHENHYDRAMINE 50 MG/ML VIAL IV PRN ×2 (06:08→20:20)
[2022-03-11] MEDS: INSULIN -REGULAR HUMAN 50 UNIT/0.5 ML ML SQ SCH ×4 (07:30→20:19)
--- NOTE | 2022-03-11 08:08 | P.PN ---
Date of Service: 03/08/22 Subjective Subjective: Patient clinically doing better. Patient denies any new complaints. Resting comfortably. Awaiting for home dialysis arrangements. Physical Examination - Vital Signs Reviewed - Physical Exam General: Alert, In no apparent distress, Oriented x3, Obeseon nasal cannula O2 Respiratory: Diminished, Crackles/rales Cardiovascular: Regular rate/rhythm, Normal S1 S2, Edema Gastrointestinal: Normal bowel sounds, No tenderness, Ascites Musculoskeletal: Still + tenderness over lower thoracic vertebralimiting transfer to chair Neurological: Generalized weakness secondary to pain Assessment And Plan Assessment: Acute on chronic systolic congestive heart failure(prior on life vest , s/p self discontinued ) Dyspnea, anasarca, moderate to large right pleural effusion, small left pleural effusion-due to lack of dialysis Liver cirrhosis Large volume ascites /history of cirrhosis ESRD on HD Diabetes type 2insulin-dependent Hypertension Hyperlipidemia Hypothyroidism CAD with previous CABG T12 compression fracturenot [facility] Left Hip and back pain Plan: Awaiting discharge when dialysis issues arranged Improving back pain; wean off current medications -Issues with getting dialysis at home since bedbound from thoracic compression fracture; arrange for home dialysis Continue pain regimen,lidocaine patch to lower back Continue physical therapy attempts at ambulation and transfers Case management working on home dialysis or transfer to dialysis via stretcher as outpatient Continue dialysis per nephrology team -Volume status improving with dialysis Patient initially discussed with her regarding hospice and was agreeable but later decided against hospice and wants care at home Clinically stable for discharge if dialysis can be arranged Continue sliding scale with Accu-Cheks Continue as needed paracentesis Continue GI and DVT prophylaxis
--- NOTE | 2022-03-11 08:10 | P.PN ---
Date of Service: 03/09/22 Subjective Subjective: Patient continues to improve. Patient denies any new complaints. Awaiting for home dialysis arrangements Physical Examination - Vital Signs Reviewed - Physical Exam General: Alert, In no apparent distress, Oriented x3, Obeseon nasal cannula O2 Respiratory: Diminished, Crackles/rales Cardiovascular: Regular rate/rhythm, Normal S1 S2, Edema Gastrointestinal: Normal bowel sounds, No tenderness, Ascites Musculoskeletal: Still + tenderness over lower thoracic vertebralimiting transfer to chair Neurological: Generalized weakness secondary to pain Assessment And Plan Assessment: Acute on chronic systolic congestive heart failure(prior on life vest , s/p self discontinued ) Dyspnea, anasarca, moderate to large right pleural effusion, small left pleural effusion-due to lack of dialysis Liver cirrhosis Large volume ascites /history of cirrhosis ESRD on HD Diabetes type 2insulin-dependent Hypertension Hyperlipidemia Hypothyroidism CAD with previous CABG T12 compression fracturenot candidate for [facility] Left Hip and back pain Plan: Continue with plan of care as mentioned below: -Arrange for home dialysis -Issues with getting dialysis at home since bedbound from thoracic compression fracture; arrange for home dialysis -Continue pain regimen,lidocaine patch to lower back -Continue physical therapy attempts at ambulation and transfers -Case management working on home dialysis or transfer to dialysis via stretcher as outpatient -Continue dialysis per nephrology team -Continue sliding scale with Accu-Cheks -Continue as needed paracentesis -Continue GI and DVT prophylaxis -
--- NOTE | 2022-03-11 08:11 | P.PN ---
Date of Service: 03/10/22 Subjective Subjective: Pt doing well; no new complaints Physical Examination - Vital Signs Reviewed - Physical Exam General: Alert, In no apparent distress, Oriented x3, Obeseon nasal cannula O2 Respiratory: Diminished, Crackles/rales Cardiovascular: Regular rate/rhythm, Normal S1 S2, Edema Gastrointestinal: Normal bowel sounds, No tenderness, Ascites Musculoskeletal: Still + tenderness over lower thoracic vertebralimiting transfer to chair Neurological: Generalized weakness secondary to pain Assessment And Plan Assessment: Acute on chronic systolic congestive heart failure(prior on life vest , s/p self discontinued ) Dyspnea, anasarca, moderate to large right pleural effusion, small left pleural effusion-due to lack of dialysis Liver cirrhosis ESRD on HD Diabetes type 2insulin-dependent Hypertension Hyperlipidemia Hypothyroidism CAD with previous CABG T12 compression fracturenot candidate for surgery [facility] Left Hip and back pain Plan: Continue with plan of care as mentioned below: -Arrange for home dialysis -Issues with getting dialysis at home since bedbound from thoracic compression fracture; arrange for home dialysis -Continue pain regimen,lidocaine patch to lower back -Continue physical therapy attempts at ambulation and transfers -Case management working on home dialysis or transfer to dialysis via stretcher as outpatient -Continue dialysis per nephrology team -Continue sliding scale with Accu-Cheks -Continue as needed paracentesis -Continue GI and DVT prophylaxis -
--- NOTE | 2022-03-11 08:11 | P.PN ---
Date of Service: 03/11/22 Subjective Subjective: Patient without any complaints. Discharge in the 24-48hrs Physical Examination - Vital Signs Reviewed - Physical Exam General: Alert, In no apparent distress, Oriented x3, Obeseon nasal cannula O2 Respiratory: Clear bilaterally Cardiovascular: Regular rate/rhythm, Normal S1 S2, Edema Gastrointestinal: Normal bowel sounds, No tenderness, Ascites Musculoskeletal: Minimal tenderness Neurological: Generalized weakness secondary to pain Assessment And Plan Assessment: Acute on chronic systolic congestive heart failure(prior on life vest , s/p self discontinued ) Dyspnea, anasarca, moderate to large right pleural effusion, small left pleural effusion-due to lack of dialysis Liver cirrhosis ESRD on HD Diabetes type 2insulin-dependent Hypertension Hyperlipidemia Hypothyroidism CAD with previous CABG T12 compression fracturenot candidate for surgery [facility] Left Hip and back pain Plan: Continue with plan of care as mentioned below: -Arrange for home dialysis; discharge in the morning -Issues with getting dialysis at home since bedbound from thoracic compression fracture; arrange for home dialysis -Continue pain regimen,lidocaine patch to lower back -Continue physical therapy attempts at ambulation and transfers -Case management working on home dialysis or transfer to dialysis via stretcher as outpatient -Continue dialysis per nephrology team -Continue sliding scale with Accu-Cheks -Outpatient paracentesis -Continue GI and DVT prophylaxis -
[2022-03-11] MEDS: FUROSEMIDE 40 MG/4 ML VIAL IV SCH ×2 (09:20→18:25)
[2022-03-11] MEDS: VITAMIN D 5,000 UNIT CAP PO SCH (09:21)
[2022-03-11] MEDS: MULTIVITAMINS,THERAPEUT 1 TAB PO SCH (09:21)
[2022-03-11] MEDS: COENZYME Q10- 200 MG CAP PO SCH (09:21)
[2022-03-11] MEDS: CALCITROL 0.25 MCG CAP PO SCH (09:21)
[2022-03-11] MEDS: DOCUSATE NA 100 MG CAP PO SCH ×2 (09:22→20:18)
[2022-03-11] MEDS: MIDODRINE HCL 5 MG TABLET PO SCH ×2 (09:23→20:19)
[2022-03-11] MEDS: HEPARIN 5000 UNIT/ML 1 ML VIAL SQ SCH ×2 (09:23→20:22)
[2022-03-11] MEDS: LIDOCAINE 4% PATCH TOP SCH (09:23)
[2022-03-11] MEDS: CLOPIDOGREL 75 MG TABLET PO SCH (09:26)
[2022-03-11] MEDS: ATORVASTATIN 20 MG TAB PO SCH (20:18)
--- NOTE | 2022-03-11 21:11 | P.PN ---
Date of Service: 03/11/22 Vital Signs Temp Pulse Resp BP Pulse Ox 97.0 F 76 19 125/69 97 03/11/22 16:00 03/11/22 18:25 03/11/22 20:19 03/11/22 18:25 03/11/22 20:19 Medications Hydrocodone Bitart/Acetaminophen (Hydrocodone/Apap 10/325 Tab) 1 tab PO Q6H PRN PRN Reason: Pain scale 5-7 (Moderate) Last Admin: 03/11/22 20:19 Dose: 1 tab Documented by: Atorvastatin Calcium (Atorvastatin 20 Mg Tab) 20 mg PO BEDTIME [facility] Last Admin: 03/11/22 20:18 Dose: 20 mg Documented by: Calcitriol (Calcitrol 0.25 Mcg Cap) 0.5 mcg PO DAILY [facility] Last Admin: 03/11/22 09:21 Dose: 0.5 mcg Documented by: Cholecalciferol (Vitamin D 5,000 Unit Cap) 5,000 unit PO DAILY [facility] Last Admin: 03/11/22 09:21 Dose: 5,000 unit Documented by: Clopidogrel Bisulfate (Clopidogrel 75 Mg Tablet) 75 mg PO DAILY [facility] Last Admin: 03/11/22 09:26 Dose: 75 mg Documented by: Coenzyme Q10 (Coenzyme Q10- 200 Mg Cap) 200 mg PO DAILY [facility] Last Admin: 03/11/22 09:21 Dose: 200 mg Documented by: Diphenhydramine HCl (Diphenhydramine 50 Mg/Ml Vial) 12.5 mg IV Q6H PRN PRN Reason: ITCHING Last Admin: 03/11/22 20:20 Dose: 12.5 mg Documented by: Docusate Sodium (Docusate Na 100 Mg Cap) 100 mg PO BID [facility] Last Admin: 03/11/22 20:18 Dose: 100 mg Documented by: Epoetin Gopi (Epoetin Gopi 10,000 Unit/Ml Vial) 10,000 unit SQ M,W,F [facility] Last Admin: 03/10/22 18:00 Dose: 10,000 unit Documented by: Furosemide (Furosemide 40 Mg/4 Ml Vial) 80 mg IV BIDL [facility] Last Admin: 03/11/22 18:25 Dose: 80 mg Documented by: Heparin Sodium (Porcine) (Heparin 5000 Unit/Ml 1 Ml Vial) 5,000 unit SQ Q12HR [facility] Last Admin: 03/11/22 20:22 Dose: 5,000 unit Documented by: Heparin Sodium (Porcine) (Heparin 1,000 Unit/Ml Vial) 2,000 unit IV EVERY HD PRN PRN Reason: DIALYSIS Last Admin: 03/10/22 09:28 Dose: 2,000 unit Documented by: Albumin Human (Albumin 25% 25 Gm) 100 mls @ 100 mls/hr IV EVERY HD [facility] Insulin Human Regular (Insulin -Regular Human 50 Unit/0.5 Ml Ml) 0 unit SQ ACHS [facility]; Protocol Last Admin: 03/11/22 20:19 Dose: Not Given Documented by: Levothyroxine Sodium (Levothyroxine Sod 0.125 Mg Tab) 0.125 mg PO DAILYAC [facility] Last Admin: 03/11/22 06:08 Dose: 0.125 mg Documented by: Lidocaine (Lidocaine 4% Patch) 1 patch TOP DAILY [facility] Last Admin: 03/11/22 09:23 Dose: 1 patch Documented by: Mannitol (Mannitol 25% 12.5 Gm/50 Ml Vial) 12.5 gm IV EVERY HD PRN PRN Reason: Titrate to SBP (MUST DEFINE) Midodrine (Midodrine Hcl 5 Mg Tablet) 5 mg PO BID [facility] Last Admin: 03/11/22 20:19 Dose: 5 mg Documented by: Ondansetron HCl (Ondansetron 4 Mg/2 Ml Vial) 4 mg IV Q6HP PRN PRN Reason: NAUSEA / VOMITING Last Admin: 03/09/22 07:55 Dose: 4 mg Documented by: Sodium Chloride (Flush Normal Saline 10 Ml) 10 ml IV BID [facility] Last Admin: 03/11/22 20:19 Dose: 10 ml Documented by: Vitamin B Complex/Vit C/Folic Acid (Multivitamins,Therapeut 1 Tab) 1 tab PO DAILY [facility] Last Admin: 03/11/22 09:21 Dose: 1 tab Documented by: Assessment/ Plan: Nephrology No dyspnea No chest pain Weakness and fatigue Left hip pain and mid back pain No acute events overnight Vitals, medications, blood work and imaging reviewed in the chart. General: Oriented x3, Cooperative HEENT: Atraumatic Neck: Supple Respiratory: CTA Cardiovascular: No edema, Regular rate/rhythm Gastrointestinal: Distended, Tenderness Musculoskeletal: No clubbing, No contractures Integumentary: No rashes, No cyanosis Neurological: Normal speech Laboratory Data (last 24 hrs) 03/01/22 19:27: WBC 6.6, Hgb 10.6 L, Hct 32.7 L, Plt Count 154 Imagings Data: EXM DESCRIPTION: RAD - Chest Single View - 03/01/2022 8:50 pm CLINICAL HISTORY: DYSPNEA COMPARISON: Chest Single View dated 02/15/2022; Chest Pa And Lat (2 Views) dated 02/06/2022; Chest Single View dated 07/28/2021; Chest Pa And Lat (2 Views) dated 07/17/2021 FINDINGS: Lines: None. Lungs: Widespread bilateral pulmonary opacities, right greater than left. Pleural: Large right pleural effusion which is increased in size. Left pleural effusion. Cardiac: Severe cardiomegaly. Defibrillator. Bones: No acute fractures. Sternotomy. Other: IMPRESSION: Pulmonary edema with increased moderate to large right pleural effusion. EXAM DESCRIPTION: CTChest Abd Pelvis Wo Con - 03/01/2022 10:45 pm CLINICAL HISTORY: Dyspnea COMPARISON: Chest Abd Pelvis Wo Con dated 02/05/2022; Chest Abd Pelvis Wo Con dated 05/25/2019; THORAX WO CONTRAST dated 03/03/2015; THORAX WO CONTRAST dated 02/27/2015 TECHNIQUE: CT of the chest, abdomen, and pelvis was performed. All CT scans are performed using dose optimization technique as appropriate and may include automated exposure control or mA/KV adjustment according to patient size. FINDINGS: Thorax: Chest Wall: No abnormal mass Battery pack in the left chest wall. Lungs: Atelectasis as a result of the effusions. Pleura: Moderate to large right pleural effusion. Small left pleural effusion. Gris/Mediastinum: No lymphadenopathy. Aorta/Pulmonary Arteries: Unremarkable Heart: Cardiomegaly. Multi-vessel coronary artery disease. Abdomen/Pelvis: Liver: No acute abnormality or suspicious lesions. Biliary: No biliary ductal dilatation. Stomach: No significant focal abnormality. Duodenum: No significant focal abnormality. 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 The largest measures 11 millimeters. No pancreatic ductal dilatation. The pancreas is atrophic. Spleen: No significant abnormality. Adrenal: No suspicious lesions. Kidney/ureter: No hydronephrosis. No renal calculi. Retroperitoneum: No retroperitoneal adenopathy. Vascular: No aneurysm. Atherosclerosis Bowel: No significant focal abnormality. Peritoneum: Large volume of ascites. Bladder: Grossly unremarkable. Reproductive: No adnexal masses. Bones: No acute fracture. Sternotomy. Remote right upper to ring fracture. Osteopenia. Battery pack in left chest wall. Other: n/a IMPRESSION: Anasarca including moderate to large right and small left pleural effusions, large volume of ascites, and body wall edema. No other acute findings identified. Conclusions/Impression: ESRD -HD TIW -Daily HD PRN HTN with CKD/ CHF complicated by hypotension -Continue Midodrine Systolic CHF, A/C -HD with UF -Continue Lasix DM II with CKD -RISS Anemia in CKD -Retacrit TIW CKD MBD -Continue Vitamin D T12 Back Pain Left Hip Pain -Lidocaine patch for back pain -Continue PT as tolerated
[2022-03-12 05:18] LABS: Potassium 4.4 mmol/L (3.5-5.1)
[2022-03-12] MEDS: LEVOTHYROXINE SOD 0.125 MG TAB PO SCH (05:35)
[2022-03-12] MEDS: INSULIN -REGULAR HUMAN 50 UNIT/0.5 ML ML SQ SCH ×4 (07:30→20:34)
[2022-03-12] MEDS: LIDOCAINE 4% PATCH TOP SCH (09:19)
[2022-03-12] MEDS: COENZYME Q10- 200 MG CAP PO SCH (09:19)
[2022-03-12] MEDS: CLOPIDOGREL 75 MG TABLET PO SCH (09:20)
[2022-03-12] MEDS: FUROSEMIDE 40 MG/4 ML VIAL IV SCH ×2 (09:20→16:26)
[2022-03-12] MEDS: MIDODRINE HCL 5 MG TABLET PO SCH ×2 (09:20→20:33)
[2022-03-12] MEDS: MULTIVITAMINS,THERAPEUT 1 TAB PO SCH (09:20)
[2022-03-12] MEDS: CALCITROL 0.25 MCG CAP PO SCH (09:20)
[2022-03-12] MEDS: DOCUSATE NA 100 MG CAP PO SCH ×2 (09:20→20:33)
[2022-03-12] MEDS: VITAMIN D 5,000 UNIT CAP PO SCH (09:20)
[2022-03-12] MEDS: HEPARIN 5000 UNIT/ML 1 ML VIAL SQ SCH ×2 (09:28→20:33)
[2022-03-12] MEDS: EPOETIN ALFA 10,000 UNIT/ML VIAL SQ SCH (16:26)
--- NOTE | 2022-03-12 19:26 | P.PN ---
Date of Service: 03/12/22 Vital Signs Temp Pulse Resp BP Pulse Ox 98.0 F 73 16 124/62 98 03/12/22 16:00 03/12/22 16:26 03/12/22 16:00 03/12/22 16:26 03/12/22 16:00 Medications Hydrocodone Bitart/Acetaminophen (Hydrocodone/Apap 10/325 Tab) 1 tab PO Q6H PRN PRN Reason: Pain scale 5-7 (Moderate) Last Admin: 03/11/22 20:19 Dose: 1 tab Documented by: Atorvastatin Calcium (Atorvastatin 20 Mg Tab) 20 mg PO BEDTIME [facility] Last Admin: 03/11/22 20:18 Dose: 20 mg Documented by: Calcitriol (Calcitrol 0.25 Mcg Cap) 0.5 mcg PO DAILY [facility] Last Admin: 03/12/22 09:20 Dose: 0.5 mcg Documented by: Cholecalciferol (Vitamin D 5,000 Unit Cap) 5,000 unit PO DAILY [facility] Last Admin: 03/12/22 09:20 Dose: 5,000 unit Documented by: Clopidogrel Bisulfate (Clopidogrel 75 Mg Tablet) 75 mg PO DAILY [facility] Last Admin: 03/12/22 09:20 Dose: 75 mg Documented by: Coenzyme Q10 (Coenzyme Q10- 200 Mg Cap) 200 mg PO DAILY [facility] Last Admin: 03/12/22 09:19 Dose: 200 mg Documented by: Diphenhydramine HCl (Diphenhydramine 50 Mg/Ml Vial) 12.5 mg IV Q6H PRN PRN Reason: ITCHING Last Admin: 03/11/22 20:20 Dose: 12.5 mg Documented by: Docusate Sodium (Docusate Na 100 Mg Cap) 100 mg PO BID [facility] Last Admin: 03/12/22 09:20 Dose: 100 mg Documented by: Epoetin Gopi (Epoetin Gopi 10,000 Unit/Ml Vial) 10,000 unit SQ M,W,F [facility] Last Admin: 03/12/22 16:26 Dose: 10,000 unit Documented by: Furosemide (Furosemide 40 Mg/4 Ml Vial) 80 mg IV BIDL [facility] Last Admin: 03/12/22 16:26 Dose: 80 mg Documented by: Heparin Sodium (Porcine) (Heparin 5000 Unit/Ml 1 Ml Vial) 5,000 unit SQ Q12HR [facility] Last Admin: 03/12/22 09:28 Dose: 5,000 unit Documented by: Heparin Sodium (Porcine) (Heparin 1,000 Unit/Ml Vial) 2,000 unit IV EVERY HD PRN PRN Reason: DIALYSIS Last Admin: 03/10/22 09:28 Dose: 2,000 unit Documented by: Albumin Human (Albumin 25% 25 Gm) 100 mls @ 100 mls/hr IV EVERY HD [facility] Insulin Human Regular (Insulin -Regular Human 50 Unit/0.5 Ml Ml) 0 unit SQ ACHS [facility]; Protocol Last Admin: 03/12/22 15:52 Dose: Not Given Documented by: Levothyroxine Sodium (Levothyroxine Sod 0.125 Mg Tab) 0.125 mg PO DAILYAC [facility] Last Admin: 03/12/22 05:35 Dose: 0.125 mg Documented by: Lidocaine (Lidocaine 4% Patch) 1 patch TOP DAILY [facility] Last Admin: 03/12/22 09:19 Dose: 1 patch Documented by: Mannitol (Mannitol 25% 12.5 Gm/50 Ml Vial) 12.5 gm IV EVERY HD PRN PRN Reason: Titrate to SBP (MUST DEFINE) Midodrine (Midodrine Hcl 5 Mg Tablet) 5 mg PO BID [facility] Last Admin: 03/12/22 09:20 Dose: 5 mg Documented by: Ondansetron HCl (Ondansetron 4 Mg/2 Ml Vial) 4 mg IV Q6HP PRN PRN Reason: NAUSEA / VOMITING Last Admin: 03/09/22 07:55 Dose: 4 mg Documented by: Sodium Chloride (Flush Normal Saline 10 Ml) 10 ml IV BID [facility] Last Admin: 03/12/22 09:00 Dose: 10 ml Documented by: Vitamin B Complex/Vit C/Folic Acid (Multivitamins,Therapeut 1 Tab) 1 tab PO DAILY [facility] Last Admin: 03/12/22 09:20 Dose: 1 tab Documented by: Assessment/ Plan: Nephrology No dyspnea No chest pain Weakness and fatigue No acute events overnight Vitals, medications, blood work and imaging reviewed in the chart. General: Oriented x3, Cooperative HEENT: Atraumatic Neck: Supple Respiratory: CTA Cardiovascular: No edema, Regular rate/rhythm Gastrointestinal: Distended, Tenderness Musculoskeletal: No clubbing, No contractures Integumentary: No rashes, No cyanosis Neurological: Normal speech Laboratory Data (last 24 hrs) 03/01/22 19:27: WBC 6.6, Hgb 10.6 L, Hct 32.7 L, Plt Count 154 Imagings Data: EXM DESCRIPTION: RAD - Chest Single View - 03/01/2022 8:50 pm CLINICAL HISTORY: DYSPNEA COMPARISON: Chest Single View dated 02/15/2022; Chest Pa And Lat (2 Views) dated 02/06/2022; Chest Single View dated 07/28/2021; Chest Pa And Lat (2 Views) dated 07/17/2021 FINDINGS: Lines: None. Lungs: Widespread bilateral pulmonary opacities, right greater than left. Pleural: Large right pleural effusion which is increased in size. Left pleural effusion. Cardiac: Severe cardiomegaly. Defibrillator. Bones: No acute fractures. Sternotomy. Other: IMPRESSION: Pulmonary edema with increased moderate to large right pleural effusion. EXAM DESCRIPTION: CTChest Abd Pelvis Wo Con - 03/01/2022 10:45 pm CLINICAL HISTORY: Dyspnea COMPARISON: Chest Abd Pelvis Wo Con dated 02/05/2022; Chest Abd Pelvis Wo Con dated 05/25/2019; THORAX WO CONTRAST dated 03/03/2015; THORAX WO CONTRAST dated 02/27/2015 TECHNIQUE: CT of the chest, abdomen, and pelvis was performed. All CT scans are performed using dose optimization technique as appropriate and may include automated exposure control or mA/KV adjustment according to patient size. FINDINGS: Thorax: Chest Wall: No abnormal mass Battery pack in the left chest wall. Lungs: Atelectasis as a result of the effusions. Pleura: Moderate to large right pleural effusion. Small left pleural effusion. Gris/Mediastinum: No lymphadenopathy. Aorta/Pulmonary Arteries: Unremarkable Heart: Cardiomegaly. Multi-vessel coronary artery disease. Abdomen/Pelvis: Liver: No acute abnormality or suspicious lesions. Biliary: No biliary ductal dilatation. Stomach: No significant focal abnormality. Duodenum: No significant focal abnormality. 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 The largest measures 11 millimeters. No pancreatic ductal dilatation. The pancreas is atrophic. Spleen: No significant abnormality. Adrenal: No suspicious lesions. Kidney/ureter: No hydronephrosis. No renal calculi. Retroperitoneum: No retroperitoneal adenopathy. Vascular: No aneurysm. Atherosclerosis Bowel: No significant focal abnormality. Peritoneum: Large volume of ascites. Bladder: Grossly unremarkable. Reproductive: No adnexal masses. Bones: No acute fracture. Sternotomy. Remote right upper to ring fracture. Osteopenia. Battery pack in left chest wall. Other: n/a IMPRESSION: Anasarca including moderate to large right and small left pleural effusions, large volume of ascites, and body wall edema. No other acute findings identified. Conclusions/Impression: ESRD -HD TIW -Daily HD PRN HTN with CKD/ CHF complicated by hypotension -Continue Midodrine Systolic CHF, A/C -HD with UF -Continue Lasix DM II with CKD -RISS Anemia in CKD -Retacrit TIW CKD MBD -Continue Vitamin D T12 Back Pain Left Hip Pain -Lidocaine patch for back pain -Continue PT as tolerated
--- NOTE | 2022-03-12 19:46 | P.PN ---
Date of Service: 03/12/22 Subjective Subjective: Patient continues to improve. Arrange for outpatient hemodialysis in the morning. Physical Examination - Vital Signs Reviewed - Physical Exam General: Alert, In no apparent distress, Oriented x3, Obeseon nasal cannula O2 Respiratory: Clear bilaterally Cardiovascular: Regular rate/rhythm, Normal S1 S2, Edema Gastrointestinal: Normal bowel sounds, No tenderness, Ascites Musculoskeletal: Minimal tenderness Neurological: Generalized weakness secondary to pain Assessment And Plan Assessment: Acute on chronic systolic congestive heart failure(prior on life vest , s/p self discontinued ) Dyspnea, anasarca, moderate to large right pleural effusion, small left pleural effusion-due to lack of dialysis Liver cirrhosis ESRD on HD Diabetes type 2insulin-dependent Hypertension Hyperlipidemia Hypothyroidism CAD with previous CABG T12 compression fracturenot candidate for [facility] Left Hip and back pain Plan: Continue with plan of care as mentioned below: -Discharge in the morning -Home dialysis has been arranged -Continue pain regimen,lidocaine patch to lower back -Continue physical therapy; ambulation and transfers -Case management working on home dialysis or transfer to dialysis via stretcher as outpatient -Continue dialysis per nephrology team -Continue sliding scale with Accu-Cheks -Outpatient paracentesis -Continue GI and DVT prophylaxis -
[2022-03-12] MEDS: ATORVASTATIN 20 MG TAB PO SCH (20:33)
[2022-03-13 04:30] VITALS: O2SAT 94
[2022-03-13] MEDS: LEVOTHYROXINE SOD 0.125 MG TAB PO SCH (06:10)
[2022-03-13] MEDS: INSULIN -REGULAR HUMAN 50 UNIT/0.5 ML ML SQ SCH ×2 (07:30→11:30)
[2022-03-13 08:04] LABS: Absolute Lymphocytes (CBC) 0.4 K/uL (0.7-4.9); Hematocrit 34.5 % (39.6-49.0); Lymphocytes % 7.2 % (15.3-44.8); MPV 8.3 fL (7.6-11.3); RBC Red Blood Cell Count 3.45 M/uL (4.33-5.43)
[2022-03-13 08:21] LABS: Magnesium 2.3 mg/dL (1.8-2.4); Potassium 4.6 mmol/L (3.5-5.1)
[2022-03-13] MEDS: FUROSEMIDE 40 MG/4 ML VIAL IV SCH (09:00)
[2022-03-13 09:11] LABS: Anisocytosis 1+; Blood Morphology Comment NOTED (NOT SEEN); Macrocytosis 1+; Platelet Estimate ADEQ; Polychromasia SLIGHT
[2022-03-13] MEDS: LIDOCAINE 4% PATCH TOP SCH (09:12)
[2022-03-13] MEDS: HEPARIN 5000 UNIT/ML 1 ML VIAL SQ SCH (09:14)
[2022-03-13] MEDS: MIDODRINE HCL 5 MG TABLET PO SCH (09:18)
[2022-03-13] MEDS: MULTIVITAMINS,THERAPEUT 1 TAB PO SCH (09:18)
[2022-03-13] MEDS: VITAMIN D 5,000 UNIT CAP PO SCH (09:18)
[2022-03-13] MEDS: DOCUSATE NA 100 MG CAP PO SCH (09:18)
[2022-03-13] MEDS: CLOPIDOGREL 75 MG TABLET PO SCH (09:18)
[2022-03-13] MEDS: CALCITROL 0.25 MCG CAP PO SCH (09:19)
[2022-03-13] MEDS: COENZYME Q10- 200 MG CAP PO SCH (09:19)
[2022-03-13] MEDS: DIPHENHYDRAMINE 50 MG/ML VIAL IV PRN (09:24)
[2022-03-14 14:09] VITALS: BP 118/61; TEMP 97.4
== END 2022-03-13 15:15 | disposition home or self-care (01) | DRG 291 ==
LOC: ER 18:54 → ERHOLD 03-02 00:23 → 2ND 03-02 13:55
PROVIDERS: ADMIT Internal Medicine; ATTEND Internal Medicine
PROC: 5A1D70Z Performance of Urinary Filtration, Intermittent, Less than 6 Hours Per Day (ICD-10-PCS; principal; 2022-03-03)
PROC: 5A1D70Z Performance of Urinary Filtration, Intermittent, Less than 6 Hours Per Day (ICD-10-PCS; 2022-03-04)
PROC: 5A1D70Z Performance of Urinary Filtration, Intermittent, Less than 6 Hours Per Day (ICD-10-PCS; 2022-03-05)
PROC: 5A1D70Z Performance of Urinary Filtration, Intermittent, Less than 6 Hours Per Day (ICD-10-PCS; 2022-03-08)
PROC: 5A1D70Z Performance of Urinary Filtration, Intermittent, Less than 6 Hours Per Day (ICD-10-PCS; 2022-03-10)
PROC: 5A1D70Z Performance of Urinary Filtration, Intermittent, Less than 6 Hours Per Day (ICD-10-PCS; 2022-03-13)
DX: I13.2 Hypertensive heart and chronic kidney disease with heart failure and with stage 5 chronic kidney disease, or end stage renal disease (principal); N18.6 End stage renal disease; I50.23 Acute on chronic systolic (congestive) heart failure; S22.089A Unspecified fracture of T11-T12 vertebra, initial encounter for closed fracture; R18.8 Other ascites; E11.22 Type 2 diabetes mellitus with diabetic chronic kidney disease; Z99.2 Dependence on renal dialysis; K74.60 Unspecified cirrhosis of liver; E78.5 Hyperlipidemia, unspecified; L89.151 Pressure ulcer of sacral region, stage 1; E03.9 Hypothyroidism, unspecified; I25.10 Atherosclerotic heart disease of native coronary artery without angina pectoris; Z95.1 Presence of aortocoronary bypass graft; Z20.822 Contact with and (suspected) exposure to COVID-19; Z79.82 Long term (current) use of aspirin; Z79.4 Long term (current) use of insulin; Z99.81 Dependence on supplemental oxygen; Z95.5 Presence of coronary angioplasty implant and graft; Z95.0 Presence of cardiac pacemaker; I95.9 Hypotension, unspecified; D63.1 Anemia in chronic kidney disease; Z74.01 Bed confinement status
CPT/HCPCS: 0240U; 36415; 71045; 71250; 74176; 80048; 80053; 80076; 82024; 82140; 82533; 82947; 83735; 83880; 84100; 84439; 84443; 84484; 84550; 85025; 85610; 90935; 93005; 97110; 97161; 97530; 99284; J1200; J1644; J1940; J2001; J2250; J2270; J2405; P9047; Q5106

== ENCOUNTER 2022-04-22 16:35 | Emergency (ER) | payer OTHER ==
--- OUTSIDE RECORDS SUMMARY | 2022-04-22 16:43 | XMS REPORT | Continuity of Care Document ---
:1955 Author Organization [facility] t Address [address] [place] [address] Care Team Providers Name Role Phone ISABELLA COFFMAN Primary Care Physician Unavailable Hallie Coffman Attending Clinician Unavailable NACHO CANTOR Attending Clinician Unavailable MONICA SIMS Attending Clinician UnavailHarshad Jara Attending Clinician Unavailable UMAIR ROSSI Attending Clinician Unavailable MARY PERRY Attending Clinician Unavailable Ez KOHLER Attending Clinician Unavailable Melodie BERRY Attending Clinician Unavailable Humberto Villagran Attending Clinician Unavailable DUKE Attending Clinician Unavailable Corrie_Lashell_CARMITA Attending Clinician Unavailable Graciela HEWITT Attending Clinician Unavailable RODRIGUE Attending Clinician Unavailable MEGHNA Admitting Clinician Unavailable NACHO CANTOR Admitting Clinician Unavailable AMELIZABETH Admitting Clinician Unavailable SHIN ARAIZA Admitting Clinician Unavailable ISAAC Admitting Clinician Unavailable UNDEFINED Admitting Clinician Unavailable KNOW Admitting Clinician Unavailable Corrie_A_AH Admitting Clinician Unavailable Graciela HEWITT Admitting Clinician Unavailable Payers Payer Name Policy Type Policy Number Effective Date Expiration Date Ganesh allred TEXINESPLUS HMO ALL [id number] 2019 00:00:00 WELLCARE [place] [id number] 2019 00:00:00 HUMANA MEDICARE [id number] 2021 ADV 00:00:00 WELLARIEL [place] [id number] 2020 STAR PLUS 00:00:00 WELLCARE OF [place] - [id number] 2019 TEXANPLUS 00:00:00 (MEDICARE REPLACEMENT/ADVANT AGE - HMO) Problems This patient has no known problems. Allergies, Adverse Reactions, Alerts Allergy Allergy Status Severity Reaction(s) Onset Inactive Treating Comm ents Source Name Type Date Date Clinician No Known DA Active [facility] Allergie 5-16 Clear s 00:00: Padron 00 [facility] No Known DA Active [facility] Allergie 5-16 Clear s 00:00: Padron 00 [facility] NO KNOWN Allergy Active [facility] ALLERGIE S NO KNOWN Drug Active [facility] ALLERGIE Class ity of S [facility] Medications Ordered Filled Start Stop Current Ordering Indication Dosage Frequency Signature Comments Components Source Medication Medication Date Date Medication? Clinician (SIG) Name Name Aspirin 81 Aspirin 81 Yes Isabella 1 tablet Common Coffman [facility] Clopidogrel Clopidogrel Yes Isabella 1 tablet Common Bisulfate Bisulfate Coffman Spir [facility] Basaglar Basaglar Yes Isabella inject 10 Common KwikPen KwikPen Coffman units [facility] Tradjenta Tradjenta Yes Isabella 1 tablet Common Coffman [facility] Senna Senna Yes Isabella 2 tablets Common Coffman at bedtime Spirit as needed [facility] Lantus Lantus Yes Isabella as Common SoloStar SoloStar Coffman directed Sp pee [facility] Aspirin Aspirin Yes Isabella TAKE 1 Commo n Coffman TABLET BY Spirit MOUTH - [facility] EVERY DAY [facility] Atorvastati Atorvastati Yes Isabella TAKE 1 Common n Calcium n Calcium Coffman TABLET BY Spirit MOUTH AT - [facility] BEDTIME [facility] Midodrine Midodrine Yes Isabella 1 tablet Common HCl HCl Coffman [facility] Lorazepam Lorazepam Yes Isabella 1 tablet Common Coffman as needed Spirit - [facility] Synthroid Synthroid Yes Isabella 1 tablet Common Coffman on an Spirit empty - [facility]I stomach in [facility] Atorvastati Atorvastati Yes Isabella 1 tablet Common n Calcium n Calcium Coffman Spir it - [facility] Vital Signs Vital Name Observation Time Observation [...] Date/Time Type Type Clinicians Facility Department ID 2022-04-13 Outpatient CoffmanLACHELLE hinkle [facility] [id number] Common 13:29:00 [facility]ly [facility] 2022-02-15 Outpatient CoffmanST arinLORE [facility] [id number] Common 13:14:00 [facility] 2022-02-10 Outpatient Coffman, STLMLC STLMLC [id number] Common 09:24:01 Isabella [facility] 2022-01-22 Outpatient Coffman, STLMLC STLMLC [id number] Common 10:07:00 Isabella [facility] 2021-12-02 Outpatient Coffman, STLMLC STLMLC [id number] Common 14:22:20 Isabella [id number] [facility] 2021-12-02 Outpatient Coffman, STLMLC STLMLC [id number] Common 13:47:46 Isabella 94573 [facility] 2021-12-02 Outpatient Coffman, STLMLC STLMLC [id number] Common 13:38:19 Isabella 23175 [facility] 2021-12-02 Outpatient Coffman, STLMLC STLMLC [id number] Common 13:27:09 Isabella 35602 [facility] 2021-12-02 Outpatient Coffman, STLMLC STLMLC [id number] Common 12:41:17 Isabella 27684 [facility] 2021-12-02 Outpatient Coffman, STLMLC STLMLC [id number] Common 12:35:51 Isabella [id number] [facility] 2021-12-02 Outpatient Coffman, STLMLC STLMLC [id number] Common 12:35:15 Isabella 00535 [facility] 2021-12-02 Outpatient Coffman, STLMLC STLMLC [id number] Common 12:07:23 Isabella 74517 [facility] 2021-12-02 Outpatient Coffman, STLMLC STLMLC [id number] Common 11:39:10 Isabella 92217 [facility] 2021-12-02 Outpatient Coffman, STLMLC STLMLC [id number] Common 11:20:23 Isabella [id number] [facility] 2021-12-02 Outpatient Coffman, STLMLC STLMLC [id number] Common 11:18:51 Isabella 88883 [facility] 2021-12-02 Outpatient Coffman, STLMLC STLMLC [id number] Common 11:16:22 Isabella 22417 [facility] 2021-12-02 Outpatient Coffman, STLMLC STLMLC [id number] Common 11:05:05 Isabella 92993 [facility] 2020-11-14 Inpatient ER KALDERICK, [facility]H Gastro [id number] [facility] 21:46:00 ARBEN 2019-05-04 Inpatient [facility] 7501 [facility] H 17:34:38 2022-02-24 2022-02-24 ambulatory STLMLC STLMLC [id number] Common 00:00:00 00:00:00 [facility] 2022-02-09 2022-02-09 ambulatory STLMLC STLMLC [id number] Common 00:00:00 00:00:00 [facility] 2022-01-22 2022-01-22 ambulatory STLMLC STLMLC [id number] Common 00:00:00 00:00:00 [facility] 2022-01-18 2022-01-18 ambulatory STLMLC STLMLC [id number] Common 00:00:00 00:00:00 [facility] 2022-01-18 2022-01-18 ambulatory STLMLC STLMLC [id number] Common 00:00:00 00:00:00 [facility] 2021-12-28 2021-12-28 Outpatient EL [facility] [id number] [facility]H 00:00:00 00:00:00 2021-12-22 2021-12-22 ambulatory STLMLC STLMLC [id number] Common 00:00:00 00:00:00 [facility] 2021-11-27 2021-11-27 Outpatient EL SLEH SLEH [id number] [facility] 00:00:00 00:00:00 2021-10-26 2021-10-26 ambulatory STLMLC STLMLC [id number] Common 00:00:00 00:00:00 [facility] 2021-10-14 2021-10-14 ambulatory STLMLC STLMLC [id number] Common 00:00:00 00:00:00 [facility] 2021-10-12 2021-10-12 Outpatient EL DALLIN SLE SLEH [id number] SLEH 00:00:00 23:59:00 HUMERA 2021-10-12 2021-10-12 Emergency ER FLO [facility] Emergency [id number] SLEH 09:11:00 16:00:00 YANIRA 2021-10-08 2021-10-08 ambulatory STLMLC STLMLC [id number] Common 00:00:00 00:00:00 [facility] 2021-10-05 2021-10-05 ambulatory STLMLC STLMLC [id number] Common 00:00:00 00:00:00 [facility] 2021-09-30 2021-09-30 ambulatory STLMLC STLMLC [id number] Common 00:00:00 00:00:00 [facility] 2021-08-11 2021-08-11 Outpatient STLMLC STLMLC [id number] Common 00:00:00 00:00:00 [facility] 2021-08-03 2021-08-03 Outpatient [facility] [id number] [facility] 00:00:00 23:59:00 Martha 2021-08-03 2021-08-03 Emergency ER SLE Emergency [id number] SLEH 11:01:00 11:01:00 2021-07-29 2021-07-29 Outpatient STLMLC STLMLC [id number] Common 00:00:00 00:00:00 [facility] 2021-07-23 2021-07-23 Outpatient EL SLE SLEH [id number] [facility]H 00:00:00 00:00:00 2021-07-23 2021-07-23 Outpatient STLMLC STLMLC [id number] Common 00:00:00 00:00:00 [facility] 2021-07-14 2021-07-14 Outpatient STLMLC STLMLC [id number] Common 00:00:00 00:00:00 [facility] 2021-07-08 2021-07-08 Outpatient STLMLC STLMLC [id number] Common 00:00:00 00:00:00 [facility] 2021-07-08 2021-07-08 Outpatient STLMLC STLMLC [id number] Common 00:00:00 00:00:00 [facility] 2021-06-26 2021-06-26 Outpatient EL SABEROLA, SLSL SLSL [id number] [facility]SL 00:00:00 00:00:00 HUMERA 2021-06-26 2021-06-26 Outpatient SABEROLA, SLSL SLSL [id number] SLSL 00:00:00 00:00:00 HUMERA 2021-06-26 2021-06-26 Outpatient EL SLSL SLSL [id number] SLSL 00:00:00 00:00:00 2021-06-22 2021-06-22 Outpatient STLMLC STLMLC [id number] Common 00:00:00 00:00:00 [facility] 2021-06-22 2021-06-22 Outpatient STLMLC STLMLC [id number] Common 00:00:00 00:00:00 [facility] 2021-06-22 2021-06-22 Outpatient STLMLC STLMLC [id number] Common 00:00:00 00:00:00 [facility] 2021-06-19 2021-06-19 Outpatient EL SLE SLEH [id number] SLEH 00:00:00 00:00:00 2021-06-19 2021-06-19 Outpatient STLMLC STLMLC [id number] Common 00:00:00 00:00:00 [facility] 2021-06-05 2021-06-05 Outpatient EL SLEH SLEH [id number] SLEH 00:00:00 00:00:00 2021-05-25 2021-05-25 Emergency ER SLE Emergency [id number] SLEH 15:33:00 15:33:00 2021-05-25 2021-05-25 Outpatient STLMLC STLMLC [id number] Common 00:00:00 00:00:00 [facility] 2021-05-22 2021-05-22 Outpatient STLMLC STLMLC [id number] Common 00:00:00 00:00:00 [facility] 2021-05-21 2021-05-21 Outpatient STLMLC STLMLC [id number] Common 00:00:00 00:00:00 [facility] 2021-04-09 2021-04-09 Outpatient STLMLC STLMLC [id number] Common 00:00:00 00:00:00 [facility] 2021-01-21 2021-01-21 Outpatient STLMLC STLMLC [id number] Common 00:00:00 00:00:00 [facility] 2021-01-07 2021-01-07 Outpatient STLMLC STLMLC [id number] Common 00:00:00 00:00:00 [facility] 2020-12-30 2020-12-30 Outpatient EL SLEH SLEH [id number] [facility]H 00:00:00 00:00:00 2020-12-26 2020-12-26 Outpatient EL SLEH SLEH [id number] [facility]H 00:00:00 00:00:00 2020-12-19 2020-12-19 Inpatient Espinoza Villagran [facility] [id number] [facility] 13:00:00 09:41:06 36 [facility] 2020-12-18 2020-12-18 Outpatient EL SLEH SLEH [id number] [facility]H 00:00:00 00:00:00 2020-11-10 2020-11-10 Outpatient STLMLC STLMLC [id number] Common 00:00:00 00:00:00 [facility] 2020-10-08 2020-10-08 Outpatient STLMLC STLMLC [id number] Common 00:00:00 00:00:00 [facility] 2020-08-15 2020-08-15 Outpatient STLMLC STLMLC [id number] Common 00:00:00 00:00:00 [facility] 2020-06-25 2020-06-25 [facility] [id number] Common 15:00:00 15:00:[address] [facility] 2020-06-25 2020-06-25 Outpatient [facility] [id number] Common 15:00:00 15:00:[address] [facility] 2020-06-18 2020-06-23 Inpatient Espinoza Villagran [facility] DAYS [id number] [facility] 08:30:00 05:46:43 56 [facility] 2020-03-12 2020-03-12 Outpatient [facility] [id number] Common 13:45:00 13:45:[address] [facility] 2020-02-12 2020-02-12 Outpatient Melodie [facility] [id number] 09:00:00 09:00:00 CIERRA spearsy o f [facility] 2019-12-26 2019-12-26 Outpatient Jony-Mbayo VFP VFP [id number] [facility] 07:15:00 07:15:00 _A_AH [id number] Family Practic e 2019-12-26 2019-12-26 Outpatient Jony-Mbayo VFP VFP [id number] [facility] 07:15:00 07:15:00 _A_AH [id number] Family Practic e 2019-12-10 2019-12-10 Out[facility] [id number] Common 13:30:00 13:30:[address] [facility] 2019-09-26 2019-09-26 Outpatient [facility] [id number] Common 08:23:00 08:23:[address] [facility] 2019-09-20 2019-09-20 Outpatient [facility] [id number] Common 16:58:00 16:58:[address] [facility] 2019-08-10 2019-08-10 Outpatient [facility] [id number] Common 09:15:00 09:15:[address] [facility] 2019-07-11 2019-07-11 Outpatient [facility] [id number] Common 16:55:00 16:55:[address] [facility] 2019-07-11 2019-07-11 Outpatient [facility] [id number] Common 10:15:00 10:15:[address] [facility] 2019-07-06 2019-07-06 Outpatient [facility] [id number] Common 16:41:00 16:41:[address] [facility] 2019-05-04 2019-05-04 Outpatient UTPDOCS UTPDOCS [id number] 09:00:00 13:49:28 2019-05-04 2019-05-04 Inpatient E MHHH MHHH [id number] [facility] 12:18:00 10:21:00 2019-05-04 2019-05-04 AppointLAQUITA Truj[facility] [id number] [place] 09:00:00 09:00:00 t; CARMELTIA, cic & Physic i [facility] HUSAIN Vascular Yvonne Razo - [facility] 2019-04-20 2019-04-20 Outpatient [facility] [id number] Common 09:30:00 09:30:[address] [facility] 2019-02-27 2019-02-27 Outpatient [facility] [id number] Common 10:00:00 10:00:[address] [facility] 2019-01-24 2019-01-24 Outpatient [facility] [id number] Common 10:45:00 10:45:[address] [facility] 2019-01-10 2019-01-10 Outpatient [facility] [id number] Common 07:54:00 07:54:[address] [facility] 2018-11-15 2018-11-15 Outpatient [facility] [id number] Common 10:00:00 10:00:[address] [facility] 2018-10-12 2018-10-12 Outpatient [facility] [id number] Common 15:00:00 15:00:00 t Specialty/U Sp pee Specialty rology - [facility] /Urology Clinic [facility] 2018-05-08 2018-05-08 Out[facility] [id number] Common 08:20:00 08:20:[address] [facility] 2018-05-01 2018-05-01 Outpatient [facility] [id number] Common 08:46:00 08:46:[address] [facility] 2018-04-27 2018-04-27 Outpatient [facility] [id number] Common 09:00:00 09:00:[address] [facility] 2018-04-20 2018-04-20 Outpatient [facility] [id number] Common 13:36:00 13:36:[address] [facility] 2018-04-12 2018-04-12 Outpatient [facility] [id number] Common 16:11:00 16:11:[address] [facility] 2018-04-10 2018-04-10 Outpatient [facility] [id number] Common 14:45:00 14:45:[address] [facility] Results Test Description Test Time Test Comments Results Result Comments Source POCT-GLUCOSE METER 2022-02-18 06:28:54 Test Item Value Reference Range Interpretation Comme nts POC-GLUCOSE METER (BEAKER) 105 mg/dL 70-110 : TESTED AT [facility] [address] [facility] (test code = 1538) [facility] [address]: Splicing Machine Operator Automatic/Techni elsie ID = [id number] for Surgers-Jeffrey Barber BASIC METABOLIC [id number] 05:12:43 Test Item Value Reference Range Interpretation [...] S NOT APPLICABLE FOR DIALYSIS PATIEN TS. Splicing Machine Operator Automatic ID - [id number] 20:38:00 Test Item Value Reference Range Interpretation Comments POC-GLUCOSE METER 104 mg/dL 70-110 : TESTED A T [facility] 31203 (BEAKER) (test code [facility], = 1538) [facility] 77 384: Splicing Machine Operator Automatic/Techni elsie ID = [id number] for Surgers-Jeffrey Barrios U/S, ABDOMINAL, [id number] 14:11:00DR STRIBLINGAbdomen limited area? Add comment if clarification is needed.->Abdomen Fluid CheckReason for exam:->AscitesKAI [facility] CENTERName: [facility]OY FORTE : 1955 Sex: MFINAL REPORT Abdominal ultrasound, limited. History: Evaluate for ascites. Comparison: None available. Discussion: Transverse and longitudinal images of the 4 quadrants of the abdomen were obtained demonstrating a mild amount of free fluid throughout. IMPRESSION: Mild ascites. Signed: Scott Alcazar Verified Date/Time: 02/17/2022 14:11:58 Reading Location: [facility] Radiology Reading Room POCT-GLUCOSE [id number] 11:47:49 Test Item Value Reference Range Interpretation Comments POC-GLUCOSE METER 100 mg/dL 70-110 : TESTED A T [facility] [address] (BEAKER) (test code [facility], = 1538) [place] [address] 384: Splicing Machine Operator Automatic/Techni elsie ID = [id number] for Lila Hill POCT-GLUCOSE [id number] 06:57:59 Test Item Value Reference Range Interpretation Comments POC-GLUCOSE METER 104 mg/dL 70-110 : TESTED A T [facility] [address] (BEAKER) (test code [facility], = 1538) [place] [address] 384: Splicing Machine Operator Automatic/Techni elsie ID = [id number] for CamrynKarli Pacheco BASIC METABOLIC [id number] 04:42:18 Test Item Value Reference Range Interpretation [...] S NOT APPLICABLE FOR DIALYSIS PATIEN TS. Splicing Machine Operator Automatic ID - [id number] 01:28:53 Test Item Value Reference Range Interpretation Comments POC-GLUCOSE METER 111 mg/dL 70-110 H : TESTED A T [facility] [address] (BEAKER) (test code [facility], = 1538) [place] [address] 384: Splicing Machine Operator Automatic/Techni elsie ID = [id number] for Candi Patel POCT-GLUCOSE [id number] 21:49:02 Test Item Value Reference Range Interpretation Comments POC-GLUCOSE METER 82 mg/dL 70-110 : TESTED A T [facility] 62478 (BEAKER) (test code = [facility], 1538) [place] [address] 384: Splicing Machine Operator Automatic/Techni elsie ID = [id number] for Karli Coon RAMON, CHEST, 1 VIEW, NON [id number] 15:02:00DR Jc for exam:- >sobShould this be performed at the bedside?->Yes [facility] 1955 Sex: [...] Alcazar Verified Date/Time: 02/16/2022 15:02:28 Reading Location: [facility] Women HEMOGLOBIN [id number] 14:52:52 Test Item Value Reference Range Interpretation Comments HEMOGLOBIN A1C (BEAKER) (test code = 5.6 % 4.3-6.1 368) Splicing Machine Operator Automatic ID - VATPOCT-GLUCOSE [id number] 12:57:55 Test Item Value Reference Range Interpretation Comments POC-GLUCOSE METER 114 mg/dL 70-110 H : TESTED A T [facility] 68[address] (BEAKER) (test code [facility], = 1538) [place] [address] 384: Splicing Machine Operator Automatic/Techni elsie ID = [id number] for Reinaldo Paul HEPATITIS B SURFACE [id number] 07:41:02 Test Item Value Reference Range Interpretation Comments HEPATITIS B SURFACE ANTIBODY 339.9 mIU/mL <8.0 H (BEAKER) (test code = 647) Splicing Machine Operator Automatic ID - BSPOCT-GLUCOSE [id number] 06:03:43 Test Item Value Reference Range Interpretation Comments POC-GLUCOSE METER 101 mg/dL 70-110 : TESTED A T [facility] 39[address] (BEAKER) (test code [facility], = 1538) [place] [address] 384: Splicing Machine Operator Automatic/Techni elsie ID = [id number] for Jossy Adorno HEPATITIS B SURFACE [id number] 05:11:46 Test Item Value Reference Range Interpretation Comments HEPATITIS B SURFACE ANTIGEN (2) Nonreactive Nonreactive (BEAKER) (test code = 2585) Splicing Machine Operator Automatic ID - [id number] 02:52:45 Test Item Value Reference Range Interpretation Comments POC-GLUCOSE METER 95 mg/dL 70-110 : TESTED A T [facility] 345[address] (BEAKER) (test code = [facility], 1538) [place] [address] 384: Splicing Machine Operator Automatic/Techni elsie ID = [id number] for Jossy Adorno POCT-GLUCOSE [id number] 21:08:00 Test Item Value Reference Range Interpretation Comments POC-GLUCOSE METER 89 mg/dL 70-110 : TESTED A T [facility] [address] (BEAKER) (test code = [facility], 1538) [facility] 77 384: Splicing Machine Operator Automatic/Techni elsie ID = [id number] for Jossy Adorno COMPREHENSIVE METABOLIC [id number] 18:54:53 Test Item Value Reference Range Interpretation [...] S NOT APPLICABLE FOR DIALYSIS PATIEN TS. Splicing Machine Operator Automatic ID - [id number] W/PLT COUNT & AUTO [id number] 18:13:18 Test Item Value Reference Range Interpretation [...] PERCENT (BEAKER) (test code = 2801) POCT-GLUCOSE [id number] 17:56:32 Test Item Value Reference Range Interpretation Comments POC-GLUCOSE METER 90 mg/dL 70-110 : TESTED A T [facility] 37190 (BEAKER) (test code = [facility], 1538) [place] [address] 384: Splicing Machine Operator Automatic/Techni elsie ID = [id number] for N april [place] POCT-GLUCOSE [id number] 17:20:59 Test Item Value Reference Range Interpretation Comments POC-GLUCOSE METER 54 mg/dL 70-110 L : TESTED A T [facility] [address] (BEAKER) (test [facility] = [facility], 1538) [place] [address] 384: Splicing Machine Operator Automatic/Techni elsie ID = [id number] for N april, [place] BODY FLUID CULTURE + GRAM [id number] 10:11:18 Test Item Value Reference Range Interpretation Comments CULTURE (BEAKER) (test code = 1095) No growth U/S, [id number] 08:12:00DR STRIBLINGLabs to be ordered:->Body Fluid Culture (w/Gram Stain, C\T\S)Labs to be ordered:->Cell CountReason for exam:->abdominal distension [facility] 1955 Sex: MFINAL REPORT Ultrasound guided paracentesis. Clinical History: Ascites. Sedation: None. Vp Outcomes: Char Van PA-C Youth Care Specialist: None. Estimated Blood Loss: < 1 cc. [...] was achieved with 2% lidocaine, a 5 [place] one-step catheter was advanced into the peritoneal cavity under ultrasoundguidance. After completion of drainage, the catheter was removed. There was no evidence of complication. Impression:Successful ultrasound guided paracentesis. Signed: Raymond Coffmaneport Verified Date/Time: 10/13/2021 08:12:56 Reading Location: [address] Ultrasound Reading Room BODY FLUID CELL [...] [Automat ed message] (BEAKER) (test code The [employer] em which = 1691) generated this result [...] (BEAKER) (test code = 2873) COMPREHENSIVE METABOLIC [id number] 10:23:58 Test Item Value Reference Range Interpretation [...] S NOT APPLICABLE FOR DIALYSIS PATIEN TS. Splicing Machine Operator Automatic ID - JORDAN MB-TYPE NATRIURETIC FACTOR (BNP)2021-10-12 10:12:10 Test Item Value Reference Range Interpretation Comments B-TYPE NATRIURETIC PEPTIDE 4245 pg/mL 0-100 H (BEAKER) (test code = 700) Splicing Machine Operator Automatic ID - JORDAN [id number] 10:01:45 Test Item Value Reference Range Interpretation [...] = 2801) BODY FLUID CULTURE + GRAM [id number] 14:14:13 Test Item Value Reference Range Interpretation Comments CULTURE (BEAKER) (test code No growth = 1095) GRAM STAIN RESULT (BEAKER) <1+ WBCs (test code = 1123) GRAM STAIN RESULT (BEAKER) No organisms seen (test code = 48372) POCT-GLUCOSE [id number] 12:15:12 Test Item Value Reference Range Interpretation Comments POC-GLUCOSE METER 165 mg/dL 70-110 H : TESTED A T [facility] 6720 (BEAKER) (test code = [facility], 1538) [address]: Splicing Machine Operator Automatic/Techni elsie ID = [id number] for ROBYN YANCEY BASIC METABOLIC [id number] 08:52:50 Test Item Value Reference Range Interpretation [...] S NOT APPLICABLE FOR DIALYSIS PATIEN TS. Splicing Machine Operator Automatic ID - [id number] 08:49:00 Test Item Value Reference Range Interpretation Comments MAGNESIUM (BEAKER) (test code = 2.1 mg/dL 1.6-2.6 627) Splicing Machine Operator Automatic ID - ADMINPOCT-GLUCOSE [id number] 07:57:04 Test Item Value Reference Range Interpretation Comments POC-GLUCOSE METER 178 mg/dL 70-110 H : TESTED A T [facility] 6720 (BEAKER) (test code = [place], 1538) [address]: Splicing Machine Operator Automatic/Techni elsie ID = [id number] for ROBYN YANCEY CBC W/PLT COUNT & AUTO [id number] 06:39:06 Test Item Value Reference Range Interpretation [...] PERCENT (BEAKER) (test code = 2801) POCT-GLUCOSE [id number] 22:12:47 Test Item Value Reference Range Interpretation Comments POC-GLUCOSE METER 157 mg/dL 70-110 H : TESTED A T [facility] 6720 (BEAKER) (test code = [place], 1538) 53714: Splicing Machine Operator Automatic/Techni elsie ID = [id number] for Pawel Reynolds POCT-GLUCOSE [id number] 17:45:52 Test Item Value Reference Range Interpretation Comments POC-GLUCOSE METER 159 mg/dL 70-110 H : TESTED A T [facility] 6720 (BEAKER) (test code = CIERA Sewell [facility], 1538) 695[address]: Splicing Machine Operator Automatic/Techni elsie ID = [id number] for Erma Kingston [id number] 13:58:31Medical Cytology Report Case: [id number] Authorizing Provider: Mauricio Perry, Collected: 08/03/2021 02:35 PM Ordering Location: [facility] Emergency Department Received: 08/04/2021 09:29 AM Pathologist: Genevieve Mendez MD Specimen: Perit cabezas Fluid PERITONEAL FLUID (CYTOSPINS): - NEGATIVE FOR MALIGNANCY Signing Pathologist Direct Phone Line: [phone] signed by Genevieve Mendez MD on 08/04/2021 at 1:58 [id number], history of cirrhosis and ESRD.PERITONEAL FLUIDReceived 1600 mls brown fluid; prepared 4 cytospins. Performed. [facility], Department of Pathology, [address] [place] [address], [facility], [address] [place] [address], [facility], [facility] of [facility], [address] [place] [address], QBSK-GLUCOSE [id number] 12:51:45 Test Item Value Reference Range Interpretation Comments POC-GLUCOSE METER 110 mg/dL 70-110 : TESTED A T [facility] 6720 (BEAKER) (test code = CIERA Sewell [facility], 1538) 64[address]: Splicing Machine Operator Automatic/Techni elsie ID = [id number] for Erma Kingston LACTATE DEHYDROGENASE (LDH), BODY [id number] 09:48:21 Test Item Value Reference Range Interpretation Comments LACTATE DEHYDROGENASE FLUID (BEAKER) 141 U/L (test code = 634) Absence of reference range indicates that normals have not been defined.Assay performance has not been validated for this type of specimen.Splicing Machine Operator Automatic ID - DSENSONPROTEIN, BODY [id number] 09:44:56 Test Item Value Reference Range Interpretation Comments PROTEIN FLUID (BEAKER) (test code = 3.9 g/dL 579) Absence of reference range indicates that normals have not been defined.Assay performance has not been validated for this type of specimen.Splicing Machine Operator Automatic ID - DSENSONBASIC METABOLIC [id number] 06:39:38 Test Item Value Reference Range Interpretation [...] S NOT APPLICABLE FOR DIALYSIS PATIEN TS. Splicing Machine Operator Automatic ID - JORDAN [id number] 06:39:14 Test Item Value Reference Range Interpretation Comments MAGNESIUM (BEAKER) (test code = 2.0 mg/dL 1.6-2.6 627) Splicing Machine Operator Automatic ID - JORDAN MCBC W/PLT COUNT & AUTO [id number] 06:11:35 Test Item Value Reference Range Interpretation [...] PERCENT (BEAKER) (test code = 2801) POCT-GLUCOSE [id number] 22:05:32 Test Item Value Reference Range Interpretation Comments POC-GLUCOSE METER 137 mg/dL 70-110 H : TESTED Lashell Ureña [facility] 6720 (BEAKER) (test code = [place], 1538) 27484: Splicing Machine Operator Automatic/Techni elsie ID = [id number] for GINA SALAZAR HEPATITIS B SURFACE [id number] 21:43:34 Test Item Value Reference Range Interpretation Comments HEPATITIS B SURFACE ANTIGEN (2) Nonreactive Nonreactive (BEAKER) (test code = 2585) Specimen is considered negative for HBsAg.BODY FLUID CELL COUNT WITH [id number] 18:09:33 Test Item Value Reference Range Interpretation [...] FLUID (BEAKER) (test code = 2873) POCT-GLUCOSE [id number] 17:22:05 Test Item Value Reference Range Interpretation Comments POC-GLUCOSE METER 117 mg/dL 70-110 H : TESTED A T [facility] 6720 (BEAKER) (test code = [place], 1538) [address]: Splicing Machine Operator Automatic/Techni elsie ID = [id number] for Erma Kingston U/S, [id number] 17:04:00DR STRIBLINGLabs to be ordered:->Body Fluid Culture (w/Gram Stain, C\T\S)Labs to be ordered:->CytologyLabs to be ordered:->Glucose+LDH+ProteinLabs to be ordered:->Cell CountReason for exam:->CHEST PAINReason for exam:->ED[facility] 1955 Sex: MFINAL REPORT Ultrasound guided paracentesis Clinical History: Ascites. Sedation: None. Vp Outcomes: Klaudia Garcia PA-C Supervising Physician: Brady Self MD Youth Care Specialist: None. Estimated Blood Loss: < 1 mL. [...] anesthesia was achieved with lidocaine, a 5 [place] one-step catheter was advanced intothe peritoneal cavity under ultrasound guidance. After completion of drainage, the catheter was removed. There was no evidence of complication. Impression:Successful ultrasound guided paracentesis. Signed: Brady Self Verified Date/Time: 08/03/2021 17:04:47 Reading Location: [address] Ultrasound Reading Room SARS-COV2/RT-PCR ([facility])2021-08-03 14:42:37 Test Item Value Reference Range Interpretation Comments SARS-COV2/RT-PCR Negative Negative The SARS-Co V-2 target (test code = nucleic acids a re not 5337962) detected in thi s specimen. Negative result [...] revoked sooner. Fact Sheet for Healthcare Providers: https://www.[employer]DealHamster/Documents/Xpert%20Xpress%20SARS%20CoV-2/Fact%20Sheets/3023802%20SARS-COV -2%20HEALTHCARE%20PROVIDERS%20FACT%20SHEET.pdf Fact Sheet for Healthcare Patients: https://www.[employer]DealHamster/Documents/Xpert %20Xpress%20SARS%20CoV-2/Fact%20Sheets/3023801%70OIIM-WXW-4%20PATIENT%20FACT%20 SHEET.pdfB-TYPE NATRIURETIC FACTOR (BNP)2021-08-03 12:54:07 Test Item Value Reference Range Interpretation Comments B-TYPE NATRIURETIC PEPTIDE 06347 pg/mL 0-100 H (BEAKER) (test code = 700) Splicing Machine Operator Automatic ID - JOHAN FOperator ID - JOHAN FHIGH SENSITIVITY TROPONIN I 2021-08-03 12:37:33 Test Item Value Reference Range Interpretation Comments HIGH SENSITIVITY 43 pg/ml See_Comment H [Automated message] TROPONIN I (test code = The system which 7072930) generated this result transmitted ref erence range: <=35. Th e reference range was not used to int erpret this result as normal/abnormal . Splicing Machine Operator Automatic ID - JOHAN FT FLORICULTURE TEACHER STAT High Sensitivity Troponin-I results should be used in conjunction with other diagnostic information such as ECG, clinical observations and information, and patient symptoms to aid in the diagnosis of NC.COMPREHENSIVE METABOLIC [id number] 12:32:18 Test Item Value Reference Range Interpretation [...] S NOT APPLICABLE FOR DIALYSIS PATIEN TS. Splicing Machine Operator Automatic ID - JOHAN [id number] 12:30:52 Test Item Value Reference Range Interpretation Comments PHOSPHORUS (BEAKER) (test code = 2.6 mg/dL 2.3-4.7 604) Splicing Machine Operator Automatic ID - JOHAN [id number] 12:30:51 Test Item Value Reference Range Interpretation Comments MAGNESIUM (BEAKER) (test code = 2.1 mg/dL 1.6-2.6 627) Splicing Machine Operator Automatic ID - JOHAN FPROTHROMBIN TIME/[id number] 12:14:02 Test Item Value Reference Range Interpretation Comments PROTIME (BEAKER) 14.5 seconds 11.9-14.2 H (test code = 759) INR (BEAKER) (test 1.15 See_Comment [Automat ed message] code = 370) The system Soocial generated this result transmitted ref erence range: [...] = 2801) RAD, CHEST, 1 VIEW, NON [id number] 11:47:00DR STRIBLINGReason for exam:- >CHEST PAINReason for exam:->EDEMAShould this be performed at the bedside?->YesST[facility] : 1955 Sex: MFINAL REPORT RAD, CHEST, 1 VIEW, NON DEPT INDICATION: CHEST PAINEDEMA COMPARISON: Prior day's exam FINDINGS: Portable frontal view of the chest. IMPRESSION: Support Lines: Pacer device and sternotomy wires. Lungs and pleura: Bilateral effusions and adjacent atelectasis Nosignificant pneumothorax. Heart and mediastinum: Stable contours. Additional findings: None. Signed: Arlet Srephunter Verified Date/Time: 08/03/2021 11:47:09 Reading Location: [facility] Radiology Reading Room ALPHA FETOPROTEIN (AFP), TUMOR [id number] 13:27:00 Test Item Value Reference Range Interpretation Comments ALPHA-FETOPROTEIN (BEAKER) (test code < ng/mL <10.0 = 1094) Splicing Machine Operator Automatic ID - PATRICIA CBASI METABOLIC [id number] 13:06:00 Test Item Value Reference Range Interpretation [...] S NOT APPLICABLE FOR DIALYSIS PATIEN TS. Splicing Machine Operator Automatic ID - PATRICIA [facility] FUNCTION [id number] 13:05:00 Test Item Value Reference Range Interpretation [...] (test code = 9 U/L 6-55 347) Splicing Machine Operator Automatic ID - PATRICIA CPROTHROMBIN [id number] 12:40:00 Test Item Value Reference Range Interpretation Comments PROTIME (BEAKER) 13.9 seconds 11.9-14.2 (test code = 759) INR (BEAKER) (test 1.09 See_Comment [Automat ed message] code = 370) The system Soocial generated this result transmitted ref erence range: [...] = 2801) BODY FLUID CULTURE + GRAM [id number] 13:49:00 Test Item Value Reference Range Interpretation Comments CULTURE (BEAKER) (test No growth code = 1095) GRAM STAIN RESULT <1+ White blood cells (BEAKER) (test code = seen 1123) GRAM STAIN RESULT No organisms seen (BEAKER) (test code = 520505) [id number] 18:55:00Medical Cytology Report Case: [id number] Authorizing Provider: Wicho Garcia MD Collected: 06/03/2021 05:57 PM Ordering Location: [place] [address] Dialysis Received: 06/04/2021 10:06 AM Nephrology Service Pathologist: Silvestre Le MD Specimen: Pleural, Right PLEURAL, RIGHT, FLUID (CYTOSPINS): - NEGATIVE FOR MALIGNANCY Signing Pathologist Direct Phone Line: [phone] signed by Silvestre Le MD on 06/05/2021 at 6:55 [id number] pleural effusion; PMH of HTN, HLD, CAD s/p ACB at [facility] on 05/18/2019, HFrEF 2/2 ICM with EF 25% s/p ICD, ESRD on iHD, cirrhosis, who presents with dyspnea, worsening BLE edema and genital painPLEURAL, RIGHT, FLUIDReceived 1000 ml bloody fluid; prepared 4 cytospinsPerformed. [facility],Department of Pathology, [address] [place] [address], [facility] of [facility]ology, [address] [place] [address], [facility], Department of Pathology, [address] [place] [address], KUJM-GLUCOSE [id number] 13:22:00 Test Item Value Reference Range Interpretation Comments POC-GLUCOSE METER 138 mg/dL 70-110 H : TESTED A T [facility] 67 (CONRAD) (test code = CIERA Sewell [facility], 1538) 139[address]: Splicing Machine Operator Automatic/Techni elsie ID = [id number] for YUKI STILES EDE U/S, [id number] 13:01:00DR STRIBLINGLaterality?->RightReason for exam:->moderate to large pleural effusionLabs to be Ordered:->Body Fluid Culture (w/Gram Stain, C\T\S)Labs to be Ordered:->CytologyLabs to be Ordered :->Cell CountLabs to be Ordered:->Glucose+LDH+Protein [facility] 1955 Sex: MFINAL REPORT Exam: Ultrasound guided thoracentesis Clinical History: Right-sided Pleural Effusion Vp Outcomes: Michelle Wilson PA-C Supervising Physician: Jose Guadalupe [...] Bernardo Verified Date/Time: 06/05/2021 13:01:06 Reading Location: [address] Ultrasound Reading Room POCT-GLUCOSE [id number] 08:36:00 Test Item Value Reference Range Interpretation Comments POC-GLUCOSE METER 219 mg/dL 70-110 H : TESTED A T [facility] 6720 (BEAKER) (test code = [place], 1538) [address]: Splicing Machine Operator Automatic/Techni elsie ID = [id number] for EDE GASPAR BASIC METABOLIC [id number] 04:46:00 Test Item Value Reference Range Interpretation [...] S NOT APPLICABLE FOR DIALYSIS PATIEN TS. Splicing Machine Operator Automatic ID - JEVON [id number] 04:45:00 Test Item Value Reference Range Interpretation Comments MAGNESIUM (BEAKER) (test code = 2.1 mg/dL 1.6-2.6 627) Splicing Machine Operator Automatic ID - JEVON [id number] 04:45:00 Test Item Value Reference Range Interpretation Comments PHOSPHORUS (BEAKER) (test code = 2.9 mg/dL 2.3-4.7 604) Splicing Machine Operator Automatic ID - JEVON LCBC W/PLT COUNT & AUTO [id number] 04:21:00 Test Item Value Reference Range Interpretation [...] PERCENT (BEAKER) (test code = 2801) POCT-GLUCOSE [id number] 22:21:00 Test Item Value Reference Range Interpretation Comments POC-GLUCOSE METER 242 mg/dL 70-110 H : TESTED A T [facility] 6720 (BEAKER) (test code = [place], 1538) [address]: Splicing Machine Operator Automatic/Techni elsie ID = [id number] for Pee Solorio POCT-GLUCOSE [id number] 12:26:00 Test Item Value Reference Range Interpretation Comments POC-GLUCOSE METER 181 mg/dL 70-110 H : TESTED A T [facility] 6720 (BEAKER) (test code = [facility], 1538) [address]: Splicing Machine Operator Automatic/Techni elsie ID = [id number] for IB RAHIM, SERKALEM LACTATE DEHYDROGENASE (LDH), BODY [id number] 10:04:00 Test Item Value Reference Range Interpretation Comments LACTATE DEHYDROGENASE FLUID (BEAKER) 117 U/L (test code = 634) Absence of reference range indicates that normals have not been defined.Assay performance has not been validated for this type of specimen.Splicing Machine Operator Automatic ID - [id number], BODY [id number] 10:01:00 Test Item Value Reference Range Interpretation Comments PROTEIN FLUID (BEAKER) (test code = 3.2 g/dL 579) Absence of reference range indicates that normals have not been defined.Assay performance has not been validated for this type of specimen.Splicing Machine Operator Automatic ID - [id number] [id number] 08:30:00 Test Item Value Reference Range Interpretation Comments POC-GLUCOSE METER 144 mg/dL 70-110 H : [facility] (BEAKER) (test code = [facility], 1538) 913[address]: Splicing Machine Operator Automatic/Techni elsie ID = [id number] for IB RAHIM, SERKALEM BASIC METABOLIC [id number] 05:13:00 Test Item Value Reference Range Interpretation [...] S NOT APPLICABLE FOR DIALYSIS PATIEN TS. Splicing Machine Operator Automatic ID - [id number] 05:10:00 Test Item Value Reference Range Interpretation Comments MAGNESIUM (BEAKER) (test code = 2.1 mg/dL 1.6-2.6 627) Splicing Machine Operator Automatic ID - [id number] 05:10:00 Test Item Value Reference Range Interpretation Comments PHOSPHORUS (BEAKER) (test code = 5.3 mg/dL 2.3-4.7 H 604) Splicing Machine Operator Automatic ID - BSCBC W/PLT COUNT & AUTO [id number] 04:43:00 Test Item Value Reference Range Interpretation [...] = 2801) BODY FLUID CELL COUNT WITH [id number] 21:44:00 Test Item Value Reference Range Interpretation Comments APPEARANCE FLUID Slightly Bloody Clear A (BEAKER) (test code = 510) COLOR FLUID Embarrass Colorless, Straw A (BEAKER) (test code = 511) RBC FLUID (BEAKER) 65950 /cu mm See_Comment H [Automat ed (test [...] EDTA Tube FLUID (BEAKER) (test code = 2233) POCT-GLUCOSE [id number] 21:31:00 Test Item Value Reference Range Interpretation Comments POC-GLUCOSE METER 181 mg/dL 70-110 H : TESTED A T [facility] 6720 (BEAKER) (test code = CIERA Sewell [place], 1538) [address]: Splicing Machine Operator Automatic/Techni elsie ID = [id number] for Gi sset (pca2), Conn POCT-GLUCOSE [id number] 18:30:00 Test Item Value Reference Range Interpretation Comments POC-GLUCOSE METER 167 mg/dL 70-110 H : TESTED A T [facility] 6720 (BEAKER) (test code = CIERA Sewell [place], 1538) 1959[address]: Splicing Machine Operator Automatic/Techni elsie ID = [id number] for CA STRO, LUCY RAD, CHEST, 1 VIEW, NON [id number] 18:20:00DR Babita for exam:- >post right sided thoracentesisShould this be performed [facility]?->YesST[facility] : 1955 Sex: [...] No acute bone abnormality. Signed: Poornima Russo [facility] Verified Date/Time: 06/03/2021 18:20:00 Reading Location: [facility] B1 C013W Consult Reading Room POCT-GLUCOSE METER 2021-06-03 11:45:00 Test Item Value Reference Range Interpretation Comments POC-GLUCOSE METER 159 mg/dL 70-110 H : TESTED A T [facility] 6720 (BEAKER) (test code = CIERA Sewell [facility], 1538) 08171: Splicing Machine Operator Automatic/Techni elsie ID = [id number] for Junie Gutiérrez POCT-GLUCOSE [id number] 09:28:00 Test Item Value Reference Range Interpretation Comments POC-GLUCOSE METER 163 mg/dL 70-110 H : TESTED A T [facility] 6720 (BEAKER) (test code = CIERA Sewell [facility], 1538) 73217: Splicing Machine Operator Automatic/Techni elsie ID = [id number] for Junie Gutiérrez CBC W/PLT COUNT & AUTO [id number] 05:53:00 Test Item Value Reference Range Interpretation [...] (BEAKER) (test code = 2801) BASIC METABOLIC [id number] 05:41:00 Test Item Value Reference Range Interpretation [...] S NOT APPLICABLE FOR DIALYSIS PATIEN TS. Splicing Machine Operator Automatic ID - JORDAN [id number] 05:22:00 Test Item Value Reference Range Interpretation Comments MAGNESIUM (BEAKER) (test code = 2.0 mg/dL 1.6-2.6 627) Splicing Machine Operator Automatic ID - JORDAN [id number] 05:22:00 Test Item Value Reference Range Interpretation Comments PHOSPHORUS (BEAKER) (test code = 4.8 mg/dL 2.3-4.7 H 604) Splicing Machine Operator Automatic ID - JORDAN MSARS-COV2/RT-PCR ([facility])2021-06-03 03:56:00 Test Item Value Reference Range Interpretation Comments SARS-COV2/RT-PCR (test code = Negative Negative [id number]) Negative result for this test determines that [...] the Zapata SARS-CoV-2 assay.Fact Sheet for Healthcare Providers:https://www.LessonFace/tracy/RT SARS-CoV-2 HCP Fact Sheet 51- 233619.pdfFact Sheet for Healthcare Patients:https://www.[employer]/tracy/RT SARS-CoV-2 Patient Fact Sheet EN 51-607084G5.pdfPROTHROMBIN TIME/[id number] 01:17:00 Test Item Value Reference Range Interpretation Comments PROTIME (CONRAD) 14.3 seconds 11.9-14.2 H (test code = 759) INR (CONRAD) (test 1.13 See_Comment [Automat ed message] code = 370) The system Soocial generated this result transmitted ref erence range: <=5.90. The reference range was not used to int erpret this result as normal/abnormal . RECOMMENDED COUMADIN/WARFARIN INR THERAPY RANGESSTANDARD DOSE: 2.0 - 3.0 Includes: PROPHYLAXIS forvenous thrombosis, systemic embolization; TREATMENT for venous thrombosis and/or pulmonary embolus.HIGH RISK: Target INR is 2.5-3.5 for patients with mechanical heart valves.POCT-GLUCOSE [id number] 21:22:00 Test Item Value Reference Range Interpretation Comments POC-GLUCOSE METER 150 mg/dL 70-110 H : TESTED A T [place] [address] ([facility] (test code = [facility] Sewell [facility], 153) [address]: Splicing Machine Operator Automatic/Techni elsie ID = [id number] for Hodan Mayo POCT-GLUCOSE [id number] 17:33:00 Test Item Value Reference Range Interpretation Comments POC-GLUCOSE METER 183 mg/dL 70-110 H : Notified RN/MD: (CONRAD) (test code = TESTED AT [place] [id number] 1538) [facility], [address]: Splicing Machine Operator Automatic/Techni elsie ID = [id number] for Co christian, Alexandrea POCT-GLUCOSE [id number] 08:46:00 Test Item Value Reference Range Interpretation Comments POC-GLUCOSE METER 143 mg/dL 70-110 H : Notified RN/MD: (CONRAD) (test code = TESTED AT [facility] 6720 1538) [facility], [address]: Splicing Machine Operator Automatic/Techni elsie ID = [id number] for Co christian, Alexandrea BASIC METABOLIC [id number] 07:12:00 Test Item Value Reference Range Interpretation [...] S NOT APPLICABLE FOR DIALYSIS PATIEN TS. Splicing Machine Operator Automatic ID - JORDAN [id number] 07:04:00 Test Item Value Reference Range Interpretation Comments MAGNESIUM (BEAKER) (test code = 2.1 mg/dL 1.6-2.6 627) Splicing Machine Operator Automatic ID - JORDAN [id number] 07:04:00 Test Item Value Reference Range Interpretation Comments PHOSPHORUS (BEAKER) (test code = 5.7 mg/dL 2.3-4.7 H 604) Splicing Machine Operator Automatic ID - JORDAN MCBC W/PLT COUNT & AUTO [id number] 06:25:00 Test Item Value Reference Range Interpretation [...] PERCENT (BEAKER) (test code = 2801) POCT-GLUCOSE [id number] 21:18:00 Test Item Value Reference Range Interpretation Comments POC-GLUCOSE METER 117 mg/dL 70-110 H : TESTED Lashell Ureña [facility] 6720 (BEAKER) (test code = [place], 1538) [address]: Splicing Machine Operator Automatic/Techni elsie ID = [id number] for Hodan Mayo POCT-GLUCOSE [id number] 18:18:00 Test Item Value Reference Range Interpretation Comments POC-GLUCOSE METER 123 mg/dL 70-110 H : Notified RN/MD: (CONRAD) (test code = TESTED AT [place] [address] 1538) [facility], [address]: Splicing Machine Operator Automatic/Techni elsie ID = [id number] for Alexandrea Hernandez POCT-GLUCOSE [id number] 12:40:00 Test Item Value Reference Range Interpretation Comments POC-GLUCOSE METER 169 mg/dL 70-110 H : Notified RN/MD: (CONRAD) (test code = TESTED AT [place] [address] 153) [facility], [address]: Splicing Machine Operator Automatic/Techni elsie ID = [id number] for Rocío Hernandezna POCT-GLUCOSE [id number] 08:51:00 Test Item Value Reference Range Interpretation Comments POC-GLUCOSE METER 119 mg/dL 70-110 H : Notified RN/MD: (CONRAD) (test code = TESTED AT [place] [address] 153) [facility], [address]: Splicing Machine Operator Automatic/Techni elsie ID = [id number] for Co Alexandrea gonzales BASIC METABOLIC [id number] 06:37:00 Test Item Value Reference Range Interpretation [...] S NOT APPLICABLE FOR DIALYSIS PATIEN TS. Splicing Machine Operator Automatic ID - MAGEN [id number] 06:34:00 Test Item Value Reference Range Interpretation Comments MAGNESIUM (BEAKER) (test code = 2.1 mg/dL 1.6-2.6 627) Splicing Machine Operator Automatic ID - MAGEN [id number] 06:34:00 Test Item Value Reference Range Interpretation Comments PHOSPHORUS (BEAKER) (test code = 5.1 mg/dL 2.3-4.7 H 604) Splicing Machine Operator Automatic ID Disha US WCBC W/PLT COUNT & AUTO [id number] 05:46:00 Test Item Value Reference Range Interpretation [...] PERCENT (BEAKER) (test code = 2801) POCT-GLUCOSE [id number] 21:36:00 Test Item Value Reference Range Interpretation Comments POC-GLUCOSE METER 160 mg/dL 70-110 H : TESTED A T [facility] 6720 (BEAKER) (test code = [facility], 153) [address]: Splicing Machine Operator Automatic/Techni elsie ID = [id number] for LI WILMAN POCT-GLUCOSE [id number] 17:16:00 Test Item Value Reference Range Interpretation Comments POC-GLUCOSE METER 151 mg/dL 70-110 H : TESTED A T [facility] 6720 (BEAKER) (test code = [facility], 153) [address]: Splicing Machine Operator Automatic/Techni elsie ID = [id number] for CA STRO, LUCY POCT-GLUCOSE [id number] 12:22:00 Test Item Value Reference Range Interpretation Comments POC-GLUCOSE METER 153 mg/dL 70-110 H : TESTED A T [facility] 6720 (BEAKER) (test code = [facility], 153) [address]: Splicing Machine Operator Automatic/Techni elsie ID = [id number] for CA STRO, LUCY BASIC METABOLIC [id number] 04:46:00 Test Item Value Reference Range Interpretation [...] S NOT APPLICABLE FOR DIALYSIS PATIEN TS. Splicing Machine Operator Automatic ID - MAGEN [id number] 04:25:00 Test Item Value Reference Range Interpretation Comments MAGNESIUM (BEAKER) (test code = 2.0 mg/dL 1.6-2.6 627) Splicing Machine Operator Automatic ID Disha SU [id number] 04:25:00 Test Item Value Reference Range Interpretation Comments PHOSPHORUS (BEAKER) (test code = 4.3 mg/dL 2.3-4.7 604) Splicing Machine Operator Automatic ID Disha US WCBC W/PLT COUNT & AUTO [id number] 03:56:00 Test Item Value Reference Range Interpretation [...] 0-1 PERCENT (BEAKER) (test code = 280) POCT-GLUCOSE [id number] 21:39:00 Test Item Value Reference Range Interpretation Comments POC-GLUCOSE METER 183 mg/dL 70-110 H : TESTED A T [facility] 6720 (BEAKER) (test code = [facility], 153) [address]: Splicing Machine Operator Automatic/Techni elsie ID = [id number] for PELON WILMAN POCT-GLUCOSE [id number] 17:38:00 Test Item Value Reference Range Interpretation Comments POC-GLUCOSE METER 145 mg/dL 70-110 H : TESTED A T [facility] 6720 (BEAKER) (test code = [facility], 1538) [address]: Splicing Machine Operator Automatic/Techni elsie ID = [id number] for IB RAHIM, SERKALEM POCT-GLUCOSE [id number] 12:58:00 Test Item Value Reference Range Interpretation Comments POC-GLUCOSE METER 122 mg/dL 70-110 H : TESTED A T [facility] 6720 (BEAKER) (test code = [facility], 1538) [address]: Splicing Machine Operator Automatic/Techni elsie ID = [id number] for FAHAD ACSTAÑEDA BASIC METABOLIC [id number] 06:52:00 Test Item Value Reference Range Interpretation [...] S NOT APPLICABLE FOR DIALYSIS PATIEN TS. Splicing Machine Operator Automatic ID - JORDAN [id number] 06:36:00 Test Item Value Reference Range Interpretation Comments MAGNESIUM (BEAKER) (test code = 2.1 mg/dL 1.6-2.6 627) Splicing Machine Operator Automatic ID - JORDAN [id number] 06:36:00 Test Item Value Reference Range Interpretation Comments PHOSPHORUS (BEAKER) (test code = 5.0 mg/dL 2.3-4.7 H 604) Splicing Machine Operator Automatic ID - JORDAN MCBC W/PLT COUNT & AUTO [id number] 06:13:00 Test Item Value Reference Range Interpretation [...] PERCENT (BEAKER) (test code = 2801) POCT-GLUCOSE [id number] 21:35:00 Test Item Value Reference Range Interpretation Comments POC-GLUCOSE METER 132 mg/dL 70-110 H : TESTED A T [facility] 6720 (BEAKER) (test code = [place], 1538) [address]: Splicing Machine Operator Automatic/Techni elsie ID = [id number] for LI RA, WILMAN POCT-GLUCOSE [id number] 17:32:00 Test Item Value Reference Range Interpretation Comments POC-GLUCOSE METER 140 mg/dL 70-110 H : TESTED A T [facility] 6720 (BEAKER) (test code = [facility] Melodie [facility], 1538) [address]: Splicing Machine Operator Automatic/Techni elsie ID = [id number] for IB FAHAD QUEZADA POCT-GLUCOSE [id number] 11:19:00 Test Item Value Reference Range Interpretation Comments POC-GLUCOSE METER 159 mg/dL 70-110 H : TESTED A T [facility] 6720 (BEAKER) (test code = [facility] Melodie [facility], 1538) [address]: Splicing Machine Operator Automatic/Techni elsie ID = [id number] for IB EBENM, SERYANELISLEM BASIC METABOLIC [id number] 08:10:00 Test Item Value Reference Range Interpretation [...] S NOT APPLICABLE FOR DIALYSIS PATIEN TS. Splicing Machine Operator Automatic ID - DAREK [id number] 08:05:00 Test Item Value Reference Range Interpretation Comments MAGNESIUM (BEAKER) (test code = 1.9 mg/dL 1.6-2.6 627) Splicing Machine Operator Automatic ID - DAREK [id number] 08:05:00 Test Item Value Reference Range Interpretation Comments PHOSPHORUS (BEAKER) (test code = 4.3 mg/dL 2.3-4.7 604) Splicing Machine Operator Automatic ID - DAREK MPOCT-GLUCOSE [id number] 07:57:00 Test Item Value Reference Range Interpretation Comments POC-GLUCOSE METER 144 mg/dL 70-110 H : TESTED A T [facility] 6720 (BEAKER) (test code = [place], 1538) [address]: Splicing Machine Operator Automatic/Techni elsie ID = [id number] for IB RAHIM, OZLEM CBC W/PLT COUNT & AUTO [id number] 07:45:00 Test Item Value Reference Range Interpretation [...] PERCENT (BEAKER) (test code = 2801) POCT-GLUCOSE [id number] 21:17:00 Test Item Value Reference Range Interpretation Comments POC-GLUCOSE METER 162 mg/dL 70-110 H : TESTED A T [facility] 6720 (BEAKER) (test code = [facility], 1538) 93[address]: Splicing Machine Operator Automatic/Techni elsie ID = [id number] for Hodan Mayo POCT-GLUCOSE [id number] 17:43:00 Test Item Value Reference Range Interpretation Comments POC-GLUCOSE METER 129 mg/dL 70-110 H : TESTED A T [facility] 6720 (BEAKER) (test code = [facility], 1538) 179[address]: Splicing Machine Operator Automatic/Techni elsie ID = [id number] for Riri Edwin pop U/S, [id number] 15:28:00DR STRIBLINGLabs to be ordered:->Body Fluid Culture (w/Gram Stain, C\T\S)Labs to be ordered:->G lucose+LDH+ProteinLabs to be ordered:->Cell CountLabs to be ordered:- >CytologyReason for exam:->ascites [facility] 1955 Sex: MFINAL REPORT Ultrasound guided paracentesis Clinical History: Ascites. Sedation: None. Vp Outcomes: Michelle Wilson PA-C Supervising Physician: Scott Alcazar MD Youth Care Specialist: None. Estimated Blood Loss: < 1 mL. [...] anesthesia was achieved with lidocaine, a 5 [place] one-step catheter was advanced into the peritoneal cavity under ultrasound guidance. After completion of drainage, the catheter was removed. There was no evidence of complication. Impression:Successful ultrasound guided paracentesis. Signed: Scott Alcazareport Verified Date/Time: 05/28/2021 15:28:45 Reading Location: [address] Ultrasound Reading Room RAD, CHEST, 1 VIEW, NON [id number] 12:52:00DR STRIBLINGReason for exam:->interval change, pleural effusionShould this be performed at the bedside?->Yes [facility] 1955 Sex: [...] Left-sided pleural effusions unchanged.. Signed: Rober Beard Verified Date/Time: 05/28/2021 12:52:22 Reading Location: [facility] Diagnostic Imaging Reading Room [place] [address] POCT-GLUCOSE [id number] 12:06:00 Test Item Value Reference Range Interpretation Comments POC-GLUCOSE METER 157 mg/dL 70-110 H : TESTED A T [facility] 6720 ([facility]) (test code = [facility], 1538) [address]: Splicing Machine Operator Automatic/Techni elsie ID = [id number] for Ma redia (pca2), Shayna BODY FLUID CULTURE + GRAM [id number] 09:41:00 Test Item Value Reference Range Interpretation Comments CULTURE ([facility]) (test code No growth = 1095) GRAM STAIN RESULT ([facility]) 1+ WBCs (test code = 1123) GRAM STAIN RESULT ([facility]) No organisms seen (test code = 15267) POCT-GLUCOSE [id number] 08:28:00 Test Item Value Reference Range Interpretation Comments POC-GLUCOSE METER 123 mg/dL 70-110 H : Notified RN/MD: ([facility]) (test code = TESTED AT [facility] 6720 1538) [facility], [address]: Splicing Machine Operator Automatic/Techni elsie ID = [id number] for Ma cawili (pca2), [place] [id number] 08:10:00 Test Item Value Reference Range Interpretation Comments MAGNESIUM (BEAKER) (test code = 1.8 mg/dL 1.6-2.6 627) Splicing Machine Operator Automatic ID - PATRICIA CBASIC METABOLIC [id number] 07:50:00 Test Item Value Reference Range Interpretation [...] S NOT APPLICABLE FOR DIALYSIS PATIEN TS. Splicing Machine Operator Automatic ID Disha ESCOTO [id number] 07:35:00 Test Item Value Reference Range Interpretation Comments PHOSPHORUS (BEAKER) (test code = 5.7 mg/dL 2.3-4.7 H 604) Splicing Machine Operator Automatic ID Disha ESCOTO LCBC W/PLT COUNT & AUTO [id number] 07:06:00 Test Item Value Reference Range Interpretation [...] PERCENT (BEAKER) (test code = 2801) POCT-GLUCOSE [id number] 21:19:00 Test Item Value Reference Range Interpretation Comments POC-GLUCOSE METER 126 mg/dL 70-110 H : TESTED Lashell Ureña [facility] 6720 (BEAKER) (test code = [place], 1538) [address]: Splicing Machine Operator Automatic/Techni elsie ID = [id number] for Arlet Yanes POCT-GLUCOSE [id number] 18:22:00 Test Item Value Reference Range Interpretation Comments POC-GLUCOSE METER 164 mg/dL 70-110 H : Notified RN/MD: ([facility]) (test code = TESTED AT [facility] 67 1538) [facility], [address]: Splicing Machine Operator Automatic/Techni elsie ID = [id number] for Yuki caballero (pca2), Nohelia POCT-GLUCOSE [id number] 13:51:00 Test Item Value Reference Range Interpretation Comments POC-GLUCOSE METER 114 mg/dL 70-110 H : Notified RN/MD: ([facility]) (test code = TESTED AT [facility] 6720 1538) [facility], [address]: Splicing Machine Operator Automatic/Techni elsie ID = [id number] for Yuki caballero (pca2), Nohelia [id number] 11:15:00Medical Cytology Report Case: [id number] Authorizing Provider: Rome Bhatti MD Collected: 05/26/2021 10:25 AM Ordering Location: [facility] Emergency Department Received: 05/26/2021 01:28 PM Pathologist: Silvestre Le MD Specimen: Peritoneal Fluid PERITONEAL FLUID (CYTOSPINS AND CELL BLOCK): -NEGATIVE FOR MALIGNANCY Signing Pathologist Direct Phone Line: [phone] Reactive mesothelial cells are present.22294, 14804Mudfsgu; history of chronic systolic/diastolic heart failure, cirrhosis, DM, hypothyroidism, HLD, chronic hypotension, CAD, chronic anemia, ESRD presented with abdominal distension, decreased uop, burning of foreskin and penisPERITONEAL FLUIDReceived 1500 ml clear, yellow fluid; prepared 4 cytospins and cell block(A2) - cell block prepared using a collodion bag andfixed in formalin at 5:02 pm on 05/26/21Performed. [facility] Hospitalmali[facility], Department of Pathology, [address] [place] [address], [facility], Department of Pathology, [address] [place] [address], [facility], Department of Pathology, [address] [place] [address], EZJDBVV DEHYDROGENASE (LDH), BODY [id number] 10:45:00 Test Item Value Reference Range Interpretation Comments LACTATE DEHYDROGENASE FLUID (BEAKER) 123 U/L (test code = 634) Absence of reference range indicates that normals have not been defined.Assay performance has not been validated for this type of specimen.Splicing Machine Operator Automatic ID - [id number], BODY [id number] 10:41:00 Test Item Value Reference Range Interpretation Comments PROTEIN FLUID (BEAKER) (test code = 5.4 g/dL 579) Absence of reference range indicates that normals have not been defined.Assay performance has not been validated for this type of specimen.Splicing Machine Operator Automatic ID - [id number] [id number] 09:21:00 Test Item Value Reference Range Interpretation Comments POC-GLUCOSE METER 134 mg/dL 70-110 H : TESTED A T [facility] 6720 (BEAKER) (test code = [place], 1538) [address]: Splicing Machine Operator Automatic/Techni elsie ID = [id number] for CA STROLUCY BASIC METABOLIC [id number] 07:43:00 Test Item Value Reference Range Interpretation [...] S NOT APPLICABLE FOR DIALYSIS PATIEN TS. Splicing Machine Operator Automatic ID - MAGEN [id number] 07:42:00 Test Item Value Reference Range Interpretation Comments MAGNESIUM (BEAKER) (test code = 2.0 mg/dL 1.6-2.6 627) Splicing Machine Operator Automatic ID - AMGEN [id number] 07:42:00 Test Item Value Reference Range Interpretation Comments PHOSPHORUS (BEAKER) (test code = 4.4 mg/dL 2.3-4.7 604) Splicing Machine Operator Automatic ID Disha US WCBC W/PLT COUNT & AUTO [id number] 06:55:00 Test Item Value Reference Range Interpretation [...] PERCENT (BEAKER) (test code = 2801) POCT-GLUCOSE [id number] 21:47:00 Test Item Value Reference Range Interpretation Comments POC-GLUCOSE METER 138 mg/dL 70-110 H : TESTED A T [facility] 6720 ([facility]) (test code = [facility], 1538) [address]: Splicing Machine Operator Automatic/Techni elsie ID = [id number] for La cy (pca2), Victori a PTH, [id number] 19:07:00 Test Item Value Reference Range Interpretation Comments PARATHYROID HORMONE INTACT 396.3 pg/mL 8.5-72.5 H ([facility]) (test code = 577) Splicing Machine Operator Automatic ID - BSPOCT-GLUCOSE [id number] 17:30:00 Test Item Value Reference Range Interpretation Comments POC-GLUCOSE METER 71 mg/dL 70-110 : TESTED A T [facility] 6720 ([facility]) (test code = [facility], 1538) [address]: Splicing Machine Operator Automatic/Techni elsie ID = [id number] for Rosario ano, Edwin [id number] 17:28:00 Test Item Value Reference Range Interpretation Comments FERRITIN (BEAKER) (test code = 1901.90 ng/mL 5.00-275.00 H 361) Splicing Machine Operator Automatic ID - BSPOCT-GLUCOSE [id number] 17:18:00 Test Item Value Reference Range Interpretation Comments POC-GLUCOSE METER 63 mg/dL 70-110 L : TESTED A T [facility] 6720 ([facility]) (test code = [facility], 1538) [address]: Splicing Machine Operator Automatic/Techni elsie ID = [id number] for Rosario ano, Edwin IRON, TIBC, % SAT. (WITHOUT FERRITIN)2021-05-26 17:00:00 Test Item Value Reference Range Interpretation Comments IRON (BEAKER) (test code = 547) 44.0 ug/dL 40.0-160.0 TOTAL IRON BINDING CAPACITY 136 ug/dL 250-450 L (BEAKER) (test code = 769) IRON % SATURATION (2) (BEAKER) 32 % 20-55 (test code = 2590) Splicing Machine Operator Automatic ID - BSHEPATITIS B SURFACE [id number] 14:17:00 Test Item Value Reference Range Interpretation Comments HEPATITIS B SURFACE ANTIGEN (2) Nonreactive Nonreactive (BEAKER) (test code = 2585) Specimen is considered negative for HBsAg.BODY FLUID CELL COUNT WITH [id number] 13:17:00 Test Item Value Reference Range Interpretation [...] (test code = The sy stem which 1698) generated this result transmit nova reference range [...] Cup (BEAKER) (test code = 2873) POCT-GLUCOSE [id number] 12:41:00 Test Item Value Reference Range Interpretation Comments POC-GLUCOSE METER 76 mg/dL 70-110 : TESTED A T [facility] 6720 (BEAKER) (test code = [place], 1538) [address]: Splicing Machine Operator Automatic/Techni elsie ID = [id number] for Greg bateman (pca2)Aleksandra POCT-GLUCOSE [id number] 07:29:00 Test Item Value Reference Range Interpretation Comments POC-GLUCOSE METER 90 mg/dL 70-110 : TESTED A T [facility] 6720 (BEAKER) (test code = [facility] [place], 1538) [address]: Splicing Machine Operator Automatic/Techni elsie ID = [id number] for Marisela etteAriel [id number] 05:33:00 Test Item Value Reference Range Interpretation Comments MAGNESIUM (BEAKER) (test code = 2.2 mg/dL 1.6-2.6 627) Splicing Machine Operator Automatic ID - JORDAN [id number] 05:33:00 Test Item Value Reference Range Interpretation Comments PHOSPHORUS (BEAKER) (test code = 6.0 mg/dL 2.3-4.7 H 604) Splicing Machine Operator Automatic ID - JORDAN MBASIC METABOLIC [id number] 05:33:00 Test Item Value Reference Range Interpretation [...] S NOT APPLICABLE FOR DIALYSIS PATIEN TS. Splicing Machine Operator Automatic ID - JORDAN MCBC W/PLT COUNT & AUTO [id number] 05:27:00 Test Item Value Reference Range Interpretation [...] PERCENT (BEAKER) (test code = 2801) SARS-COV2/RT-PCR ([facility])2021-05-26 03:02:00 Test Item Value Reference Range Interpretation Comments SARS-COV2/RT-PCR Negative Negative The SARS-Co V-2 target (test code = 9350741) nuclei c acids are not detected in [...] SARS-CoV-2/Flu/RSV by their healthcare provider. Results from [facility] Xpert Xpress SARS-CoV-2/Flu/RSV test should be [...] of the Act.Fact Sheet for Healthcare Providers :https://www.[employer]/Documents/Xpert%20Xpress%20SARS%20CoV-2/Fact%20Sheets/3 02-3902%90SOQW-YOP-9%20HEALTHCARE%20PROVIDERS%20FACT%20SHEET.pdfFact Sheet for Healthcare Patients:https://www.[employer] /Documents/Xpert%20Xpress%20SARS%20Cov-2/Fact%20Sheets/302-3801%61AIYD-PXW-9%20P ATIENT%20FACT%20SHEET.pdfRAD, CHEST, 1 VIEW, NON [id number] 22:32:00DR STRIBLINGReason for exam:->shortness of breathShould this be performed at the bedside?->Yes[facility] 1955 Sex: [...] venous catheter has been removed. Signed: Angy Varnerort Verified Date/Time: 05/25/2021 22:32:46 Reading Location: [facility] C[facility] Consult Reading Room CT, [id number] 21:35:00DR STRIBLINGUnlisted Reason for Exam - Click Yes and Enter Reason Below->NoWill this procedure require oral contrast?->NoKAI [facility]ENTER[facility]: [facility] : 1955 Sex: [...] evaluation with HIDA scan. Signed: Marya Arredondo [facility] Care[facility] Verified Date/Time: 05/25/2021 21:35:09 [id number] 19:39:00 Test Item Value Reference Range Interpretation Comments LIPASE (BEAKER) (test code = 749) 19 U/L 8-78 Splicing Machine Operator Automatic ID - DBCOMPREHENSIVE METABOLIC [id number] 19:39:00 Test Item Value Reference Range Interpretation [...] S NOT APPLICABLE FOR DIALYSIS PATIEN TS. Splicing Machine Operator Automatic ID - DBOperator ID - DBB-TYPE NATRIURETIC FACTOR (BNP)2021-05-25 19:34:00 Test Item Value Reference Range Interpretation Comments B-TYPE NATRIURETIC PEPTIDE 91695 pg/mL 0-100 H (ISAACAKER) (test code = 700) Splicing Machine Operator Automatic ID - dbOperator ID - dbHIGH SENSITIVITY TROPONIN [id number] 19:13:00 Test Item Value Reference Range Interpretation Comments HIGH SENSITIVITY 54 pg/ml See_Comment H [Automated message] TROPONIN I (test code = The system which 9398579) generated this result transmitted ref erence range: <=35. Th e reference range was not used to int erpret this result as normal/abnormal . Splicing Machine Operator Automatic ID - dbThe FLORICULTURE TEACHER STAT High Sensitivity Troponin-I results should be used in conjunctionwith other diagnostic information such as ECG, clinical observations and information, and patient symptoms to aid in the diagnosis of NC.PT/[id number] 19:08:00 Test Item Value Reference Range Interpretation Comments PROTIME (ISAACAKER) (test 14.4 seconds 11.9-14.2 H code = 759) INR (BEAKER) (test 1.14 See_Comment [Automat ed code = 370) message] The sy stem which generated this result transmitted reference range : <=5.90. The reference range was not used to interpret this result as normal/abnormal . PARTIAL THROMBOPLASTIN 36.6 seconds 22.5-36.0 H TIME (ISAACAKER) (test code = 760) RECOMMENDED COUMADIN/WARFARIN INR THERAPY RANGESSTANDARD DOSE: 2.0 - 3.0 Includes: PROPHYLAXIS forvenous thrombosis, systemic embolization; TREATMENT for venous thrombosis and/or pulmonary embolus.HIGH RISK: Target INR is 2.5-3.5 for patients with mechanical heart valves.HEPATIC FUNCTION [id number] 19:07:00 Test Item Value Reference Range Interpretation [...] (test code = 8 U/L 6-55 347) Splicing Machine Operator Automatic ID - DBCBC W/PLT COUNT & AUTO [id number] 18:55:00 Test Item Value Reference Range Interpretation [...] 0-1 PERCENT (BEAKER) (test code = 2801) [id number] 16:39:00 Test Item Value Reference Range Interpretation Comments GLUBED (test code = 104 MG/DL 70-110 N Performe d by certified GLUBED) 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 [facility] - XR FLUOROSCOPY 0-60 [id number] 15:03:00 [facility] [place] : 1955 Sex: M FAX: Espinoza Santillan MD [phone] [place]: St: REG Name: TROY FORTE [facility] : 1955 Age/S: 65/M [address] [place] [address] Unit #: [id number] Loc: [place] [address] Phys: Espinoza Villagran MD Acct: [id number] Dis Date: Status: REG [facility] PHONE #: [phone] Exam Date: 12/19/2020 1445 FAX #: [phone] Reason: LUE FISTULA MALFUNCTION EXAMS: CPT CODE: [id number] XR FLUOROSCOPY0-60 MIN 38270 Study: - XR FLUOROSCOPY 0-60 MIN 12/19/2020 2:00 PM Patient Name: TROY FORTE MR: [id number] DATE: 12/19/2020 2:00 PM : 1955; Age: 65 years y/o Male Ordering Physician: Espinoza Villagran MD Clinical Indication: LUE FISTULA MALFUNCTION Intraprocedural fluoroscopy wasprovided by the Department of Radiology. Any images obtained were interpreted by the surgeon intraoperatively. Fluoroscopy time: 18 seconds Reference Air Kerma: 1.3 mGy SL: [id number] at 1503 Reported and signed by: Ar Coffman D.O. CC: Espinoza Villagran MD Technologist: RT Naren(R) Trnscrd Date/Time/By: 12/19/2020 (3500) : By:[email or web address] Orig Print D/T: S: 12/19/2020 (4932) PAGE 1 Signed ReportBASIC METABOLIC PANEL 2020-12-19 [...] 8.8 mg/dL 8.0-10.5 N CA) CBC W/AUTO [id number] 10:45:00 Test Item Value Reference Range Interpretation [...] NO = MDIFF) - XR CHEST 1 [id number] 10:42:00 [facility] : 1955 Sex: M FAX: Espinoza Santillan MD [phone] [place]: EMIL St: REG Name: TROY FORTE [facility] : 1955 Age/S: 65/M [address] [place] [address] Unit #: [id number] Loc: [place] [address] Phys: Espinoza Villagran MD Acct: [id number] Dis Date: Status: REG [facility] PHONE #: [phone] Exam Date: 12/19/2020 103 FAX #: [phone] Reason: PRE PROCEDURE EXAMS: CPT CODE: [id number] XR CHEST 1 V 82032 Study: - XR CHEST 1 V 12/19/2020 9:13 AM Patient Name: TROY FORTE MR: [id number] : 1955; Age: 65 years y/o Male [...] congestion and small bilateral pleural effusions. SL: [id number] at 1042 Reported and signed by: Tr Ly M.D. CC: Espinoza Villagran MD Technologist: RT Navya(R) Trnscrd Date/Time/By: 12/19/2020 (104) : By: [email or web address] Orig Print D/T: S: 12/19/2020 (2661) PAGE 1 Signed ReportCBC W/AUTO [id number] 10:41:00 Test Item Value Reference Range Interpretation [...] code = MDIFF) COVID 19 Asymptomatic IH [id number] 10:40:00 Test Item Value Reference Range Interpretation [...] Interpretation Comments SCAN RESULT (test code = 7828220) ALBUMIN PERITONEAL [id number] 11:32:00 Test Item Value Reference Range Interpretation Comments ALBUMIN, PERITONEAL FLUID (BEAKER) 2.4 g/dL (test code = 3654514) This test was performed at [facility] Lab, [facility].Reference range is not defined and interpretation must be performed in the consideration of the pathophysiology of the analyte and the clinical context.POCT-GLUCOSE METER 2020-11-21 11:23:00 Test Item Value Reference Range Interpretation Comments POC-GLUCOSE METER 175 mg/dL 70-110 H : TESTED A T [facility] 6720 (BEAKER) (test code = [facility], 1538) [address]: Splicing Machine Operator Automatic/Techni elsie ID = [id number] for IB RAHIM, S[place] HEPATIC FUNCTION [id number] 10:08:00 Test Item Value Reference Range Interpretation [...] (test code = 7 U/L 6-55 347) Splicing Machine Operator Automatic ID - EDASIPOCT-GLUCOSE [id number] 08:18:00 Test Item Value Reference Range Interpretation Comments POC-GLUCOSE METER 130 mg/dL 70-110 H : TESTED A T [facility] 6720 (BEAKER) (test code = [facility], 1538) [address]: Splicing Machine Operator Automatic/Techni elsie ID = [id number] for IB RAHIM, S[place]ALEM BASIC METABOLIC [id number] 07:17:00 Test Item Value Reference Range Interpretation [...] S NOT APPLICABLE FOR DIALYSIS PATIEN TS. Splicing Machine Operator Automatic ID - [id number] 07:16:00 Test Item Value Reference Range Interpretation Comments MAGNESIUM (BEAKER) (test code = 2.0 mg/dL 1.6-2.6 627) Splicing Machine Operator Automatic ID - ADMINCBC (HEMOGRAM ONLY)2020-11-21 06:55:00 Test [...] = 413) RAD, CHEST, 1 VIEW, NON [id number] 00:39:00Reason for exam:->SICD implantShould this be performed at the bedside?->Yes [facility] 1955 Sex: MFINAL [...] emphysemain the left chest wall. Signed: Elidia [facility] Verified Date/Time: 11/21/2020 00:39:32 E lectronically signed by: ELIDIA PATEL MD on 11/21/2020 12:39 AMPOCT- GLUCOSE [id number] 21:44:00 Test Item Value Reference Range Interpretation Comments POC-GLUCOSE METER 173 mg/dL 70-110 H : TESTED A T [facility] 6720 (BEAKER) (test code = [place], 1538) [address]: Splicing Machine Operator Automatic/Techni elsie ID = [id number] for WILMAN BIRD RA POCT-GLUCOSE [id number] 18:37:00 Test Item Value Reference Range Interpretation Comments POC-GLUCOSE METER 157 mg/dL 70-110 H : TESTED A T [facility] 6720 (BEAKER) (test code = [place], 1538) [address]: Splicing Machine Operator Automatic/Techni elsie ID = [id number] for RICARDO COOK POCT-GLUCOSE [id number] 17:03:00 Test Item Value Reference Range Interpretation Comments POC-GLUCOSE METER 151 mg/dL 70-110 H : TESTED A T [facility] 6720 (BEAKER) (test code = [place], 1538) [address]: Splicing Machine Operator Automatic/Techni elsie ID = [id number] for CORI NAVA BLOOD GAS, [id number] 14:46:00 Test Item Value Reference Range Interpretation [...] (test code = 1819) 100.0 SODIUM NA-STAT [id number] 14:46:00 Test Item Value Reference Range Interpretation Comments SODIUM (BEAKER) (test code = 381) 133 meq/L 136-145 L POTASSIUM-STAT [id number] 14:46:00 Test Item Value Reference Range Interpretation Comments POTASSIUM (BEAKER) (test code = 3.3 meq/L 3.6-5.5 L 379) GLUCOSE-STAT [id number] 14:46:00 Test Item Value Reference Range Interpretation Comments GLUCOSE RANDOM (BEAKER) (test code 143 mg/dL 70-110 H = 652) HGB/HCT (H&H) - STAT [id number] 14:46:00 Test Item Value Reference Range Interpretation Comments HEMOGLOBIN (BEAKER) (test code = 7.3 GM/DL 13.0-16.8 L 410) HEMATOCRIT (BEAKER) (test code = 21.0 % 40.0-50.0 L 411) BODY FLUID CULTURE + GRAM [id number] 12:24:00 Test Item Value Reference Range Interpretation Comments CULTURE (BEAKER) (test code No growth = 1095) GRAM STAIN RESULT (BEAKER) 1+ WBCs (test code = 1123) GRAM STAIN RESULT (BEAKER) No organisms seen (test code = 14714) POCT-GLUCOSE [id number] 09:22:00 Test Item Value Reference Range Interpretation Comments POC-GLUCOSE METER 156 mg/dL 70-110 H : Notified RN/MD: (BEAKER) (test code = TESTED AT [facility] 6732 0887) [place], [address]: Splicing Machine Operator Automatic/Techni elsie ID = [id number] for AN RICARDO DAUGHERTY PROTHROMBIN TIME/[id number] 04:26:00 Test Item Value Reference Range Interpretation [...] valves.Within 24 hours, if on CoumadinBASIC METABOLIC [id number] 04:13:00 Test Item Value Reference Range Interpretation [...] S NOT APPLICABLE FOR DIALYSIS PATIEN TS. Splicing Machine Operator Automatic ID - JEVON [id number] 04:03:00 Test Item Value Reference Range Interpretation Comments MAGNESIUM (BEAKER) (test code = 2.0 mg/dL 1.6-2.6 627) Splicing Machine Operator Automatic ID - JEVON LCBC (HEMOGRAM ONLY)2020-11-20 03:55:00 [...] 0-0 (BEAKER) (test code = 413) POCT-GLUCOSE [id number] 21:13:00 Test Item Value Reference Range Interpretation Comments POC-GLUCOSE METER 222 mg/dL 70-110 H : TESTED A T [facility] 6720 ([facility]) (test code = [facility], 153) [address]: Splicing Machine Operator Automatic/Techni elsie ID = [id number] for WILMAN BIRD RA POCT-GLUCOSE [id number] 17:48:00 Test Item Value Reference Range Interpretation Comments POC-GLUCOSE METER 205 mg/dL 70-110 H : Notified RN/MD: ([facility]) (test code = TESTED AT [place] [address]) [facility], [address]: Splicing Machine Operator Automatic/Techni elsie ID = [id number] for AN RICARDO DAUGHERTY POCT-GLUCOSE [id number] 12:22:00 Test Item Value Reference Range Interpretation Comments POC-GLUCOSE METER 196 mg/dL 70-110 H : Notified RN/MD: ([facility]) (test code = TESTED AT [place] [address]) [facility], [address]: Splicing Machine Operator Automatic/Techni elsie ID = [id number] for AN RICARDO DAUGHERTY POCT-GLUCOSE [id number] 08:52:00 Test Item Value Reference Range Interpretation Comments POC-GLUCOSE METER 166 mg/dL 70-110 H : [facility] (test code = [facility], 153) [address]: Splicing Machine Operator Automatic/Techni elsie ID = [id number] for Jennyfer Gutiérrezia POCT-GLUCOSE [id number] 08:52:00 Test Item Value Reference Range Interpretation Comments POC-GLUCOSE METER 176 mg/dL 70-110 H : [facility] ([facility]) (test code = [facility], 153) [address]: Splicing Machine Operator Automatic/Techni elsie ID = [id number] for Ra cano, Junie POCT-GLUCOSE [id number] 08:39:00 Test Item Value Reference Range Interpretation Comments POC-GLUCOSE METER 144 mg/dL 70-110 H : Notified RN/MD: ([facility]) (test code = TESTED AT [place] [address]) [facility], [address]: Splicing Machine Operator Automatic/Techni elsie ID = [id number] for AN RICARDO DAUGHERTY BASIC METABOLIC [id number] 07:50:00 Test Item Value Reference Range Interpretation [...] S NOT APPLICABLE FOR DIALYSIS PATIEN TS. Splicing Machine Operator Automatic ID - [id number] 07:46:00 Test Item Value Reference Range Interpretation Comments MAGNESIUM (BEAKER) (test code = 2.0 mg/dL 1.6-2.6 627) Splicing Machine Operator Automatic ID - BENYHEPATIC FUNCTION [id number] 07:46:00 Test Item Value Reference Range Interpretation [...] (test code = 9 U/L 6-55 347) Splicing Machine Operator Automatic ID - BENYB-TYPE NATRIURETIC FACTOR (BNP)2020-11-19 07:44:00 Test Item Value Reference Range Interpretation Comments B-TYPE NATRIURETIC PEPTIDE 4442 pg/mL 0-100 H (BEAKER) (test code = 700) Splicing Machine Operator Automatic ID - JOSHUASONCBC (HEMOGRAM ONLY)2020-11-19 07:14:00 Test Item Value Reference [...] 0-0 (BEAKER) (test code = 413) POCT-GLUCOSE [id number] 23:22:00 Test Item Value Reference Range Interpretation Comments POC-GLUCOSE METER 132 mg/dL 70-110 H : TESTED A T [facility] 6720 (BEAKER) (test code = [facility], 1538) [address]: Splicing Machine Operator Automatic/Techni elsie ID = [id number] for NO OR ABISAI BROWN POCT-GLUCOSE [id number] 17:45:00 Test Item Value Reference Range Interpretation Comments POC-GLUCOSE METER 259 mg/dL 70-110 H : TESTED A T [facility] 6720 (BEAKER) (test code = [facility], 1538) [address]: Splicing Machine Operator Automatic/Techni elsie ID = [id number] for Junie Gutiérrez T4, [id number] 09:08:00 Test Item Value Reference Range Interpretation Comments FREE T4 (BEAKER) (test code = 655) 0.62 ng/dL 0.70-1.48 L Splicing Machine Operator Automatic ID - JORDAN MTSH/FREE T4 IF [id number] 08:03:00 Test Item Value Reference Range Interpretation Comments THYROID STIMULATING HORMONE 7.177 uIU/mL 0.350-4.940 H (BEAKER) (test code = 772) Splicing Machine Operator Automatic ID - JORDAN MBASIC METABOLIC [id number] 07:42:00 Test Item Value Reference Range Interpretation [...] S NOT APPLICABLE FOR DIALYSIS PATIEN TS. Splicing Machine Operator Automatic ID - JORDAN [id number] 07:41:00 Test Item Value Reference Range Interpretation Comments MAGNESIUM (BEAKER) (test code = 1.9 mg/dL 1.6-2.6 627) Splicing Machine Operator Automatic ID - JORDAN MHEPATIC FUNCTION [id number] 07:41:00 Test Item Value Reference Range Interpretation [...] (test code = 11 U/L 6-55 347) Splicing Machine Operator Automatic ID - JORDAN MCBC (HEMOGRAM ONLY)2020-11-18 06:18:00 [...] 0-0 (BEAKER) (test code = 413) POCT-GLUCOSE [id number] 00:01:00 Test Item Value Reference Range Interpretation Comments POC-GLUCOSE METER 164 mg/dL 70-110 H : TESTED Lashell T [facility] 6720 (BEAKER) (test code = [place], 1538) [address]: Splicing Machine Operator Automatic/Techni elsie ID = [id number] for NO OR ABISAI BROWN POCT-GLUCOSE [id number] 17:28:00 Test Item Value Reference Range Interpretation Comments POC-GLUCOSE METER 247 mg/dL 70-110 H : TESTED A T [facility] 6720 (BEAKER) (test code = [facility] Melodie [facility], 1538) [address]: Splicing Machine Operator Automatic/Techni elsie ID = [id number] for EDE GASPAR [id number] 15:35:00Medical Cytology Report Case: [id number] Authorizing Provider: Arben Cantor MD Collected: 11/16/2020 11:50 AM Ordering Location: [address] Received: 11/17/2020 09:32 AM Service Pathologist: Silvestre eL MD Specimen: Perit caebzas Fluid PERITONEAL FLUID (CYTOPSPINS): - NEGATIVE FOR MALIGNANCY Signing Pathologist Direct Phone Line: [phone] signed by Silvestre Le MD on 11/17/2020 at 3:35 [id number], CHFPERITONEAL [id number] mls madina fluid; 4 cytospinsPerformed. [facility], Department of Pathology, [address] [place] [address], [facility] of [facility], [address] [place] [address], [facility], [facility] of [facility], [address] [place] [address], NZHF-NUCLEAR ANTIBODY (SANTANA)2020-11-17 15:14:00 Test Item Value Reference Range Interpretation Comments ANTI-NUCLEAR ANTIBODY (SANTANA) (BEAKER) Negative Negative (test code = 418) Test performed by IFA method.Test performed by IFA method.PROTEIN, TOTAL, PERITONEAL [id number] 15:08:00 Test Item Value Reference Range Interpretation Comments PROTEIN, TOTAL, PERITONEAL FLUID 5.2 g/dL (BEAKER) (test code = 3641714) POCT-GLUCOSE [id number] 12:05:00 Test Item Value Reference Range Interpretation Comments POC-GLUCOSE METER 187 mg/dL 70-110 H : [facility] (BEAKER) (test code = [facility] [place] [facility], 1538) [address]: Splicing Machine Operator Automatic/Techni elsie ID = [id number] for EDE GASPAR POCT-GLUCOSE [id number] 08:00:00 Test Item Value Reference Range Interpretation Comments POC-GLUCOSE METER 202 mg/dL 70-110 H : TESTED A T [facility] 6720 (BEAKER) (test code = [place]ER[place] [facility], 1538) [address]: Splicing Machine Operator Automatic/Techni elsie ID = [id number] for EDE GASPAR BASIC METABOLIC [id number] 06:49:00 Test Item Value Reference Range Interpretation [...] S NOT APPLICABLE FOR DIALYSIS PATIEN TS. Splicing Machine Operator Automatic ID - [id number] 06:46:00 Test Item Value Reference Range Interpretation Comments MAGNESIUM (BEAKER) (test code = 1.9 mg/dL 1.6-2.6 627) Splicing Machine Operator Automatic ID - [id number] 06:46:00 Test Item Value Reference Range Interpretation Comments PHOSPHORUS (BEAKER) (test code = 6.9 mg/dL 2.3-4.7 H 604) Splicing Machine Operator Automatic ID - EDASIHEPATIC FUNCTION [id number] 06:46:00 Test Item Value Reference Range Interpretation [...] (test code = 10 U/L 6-55 347) Splicing Machine Operator Automatic ID - EDASIPTH, [id number] 06:40:00 Test Item Value Reference Range Interpretation Comments PARATHYROID HORMONE INTACT 540.2 pg/mL 8.5-72.5 H (BEAKER) (test code = 577) Splicing Machine Operator Automatic ID - DBCBC W/PLT COUNT & AUTO [id number] 06:23:00 Test Item Value Reference Range Interpretation [...] PERCENT (BEAKER) (test code = 2801) POCT-GLUCOSE [id number] 22:19:00 Test Item Value Reference Range Interpretation Comments POC-GLUCOSE METER 233 mg/dL 70-110 H : TESTED A T [facility] 6720 ([facility]) (test code = [facility] Melodie [facility], 1538) [address]: Splicing Machine Operator Automatic/Techni elsie ID = [id number] for Tess Emmanuel Hernandez POCT-GLUCOSE [id number] 17:34:00 Test Item Value Reference Range Interpretation Comments POC-GLUCOSE METER 179 mg/dL 70-110 H : Notified RN/MD: ([facility]) (test code = TESTED AT [facility] 6720 1538) [facility], [address]: Splicing Machine Operator Automatic/Techni elsie ID = [id number] for RICARDO COOK [id number] 15:07:00 Test Item Value Reference Range Interpretation Comments FERRITIN (BEAKER) (test code = 3231.34 ng/mL 5.00-275.00 H 361) Splicing Machine Operator Automatic ID - EDASIOperator ID - EDASIBODY FLUID [...] EDTA Tube (test code = 2873) POCT-GLUCOSE [id number] 13:16:00 Test Item Value Reference Range Interpretation Comments POC-GLUCOSE METER 206 mg/dL 70-110 H : Notified RN/MD: (BEAKER) (test code = TESTED AT [facility] 6769 0903) [facility], [address]: Splicing Machine Operator Automatic/Techni elsie ID = [id number] for AN RICARDO DAUGHERTY U/S, [id number] 12:46:00Last Plavix 11/13Labs to be ordered:->Body Fluid Culture (w/Gram Stain, C\T\S)Needs total protein, and fluid albumin for SAAG calculationLabs to be ordered:->CytologyLabs to be ordered:->Cell Cou ntLabs to be ordered:->Other (please add comment)Reason for exam:->new onset ascitesCH[facility] : 1955 Sex: MFINAL REPORT PROCEDURE: Ultrasound-guided paracentesis. INDICATION: 65-year-old man with ascites. DESCRIPTION: After obtaining informed written consent, ultrasound scan of theabdomen identified ascites in the right lower quadrant. The overlying skin was prepped and draped inthe usual, sterile fashion and local 2% lidocaine anesthesia was administered. A 5 [place] catheter was advanced into the peritoneal cavity and 5600 cc of serous fluid was removed. The catheter was removed without immediate complication. Samples were sent for analysis. IMPRESSION:Uncomplicated ultrasound-guided paracentesis with 5600 cc fluid removed. Signed: Charles Floyd Verified Date/Time: 11/16/2020 12:46:29 Reading Location: [facility] C013Y [place] Body Reading Room [id number] 2020-11-16 11:46:00 Test Item Value Reference Range Interpretation Comments ALPHA-1 ANTITRYPSIN (BEAKER) 235.00 mg/dL 90.00-200.00 H (test code = 502) Splicing Machine Operator Automatic ID - EDASIOperator ID - AAHAMIDSARS-COV2/RT-PCR ([facility]) 2020-11-16 11:16:00 Test Item Value Reference Range Interpretation Comments SARS-COV2/RT-PCR (test Negative Not Detected, Negative, code = 3241206) See external report for linked test SARS-COV-2 PERFORMING LAB [facility] KARINA (test code = 6983390) Negative result for this test determines that [...] 564(g) of the Act.Fact Sheet for Healthcare Providers:https://www.[employer]/sites/default/files/product/documents/Fact_Shee g_AE_Yprikbuqf_Lbur_GAZK-GtN-0.pdfFact Sheet for Healthcare Patients:https://www.[employer]/sites/default/files/product/ documents/Cddg_Bsyrk_Mywxictq_Lqsh_GEYW-GlU-6.pdfPerforming Laboratory:[facility], [place] [address]KJTEFELVO A ANTIBODY, [id number] 11:06:00 Test Item Value Reference Range Interpretation Comments HEPATITIS A IGG ANTIBODY (BEAKER) Reactive Nonreactive A (test code = 2797) Splicing Machine Operator Automatic ID - AAHAMIDALPHA FETOPROTEIN (AFP), TUMOR [id number] 10:52:00 Test Item Value Reference Range Interpretation Comments ALPHA-FETOPROTEIN (BEAKER) (test code < ng/mL <10.0 = 1094) Splicing Machine Operator Automatic ID - AAHAMIDHEPATITIS A ANTIBODY, [id number] 09:52:00 Test Item Value Reference Range Interpretation Comments HEPATITIS A IGM ANTIBODY (BEAKER) Nonreactive Nonreactive (test code = 498) Splicing Machine Operator Automatic ID - AAHAMIDHEPATITIS B CORE ANTIBODY, [id number] 09:52:00 Test Item Value Reference Range Interpretation Comments HEPATITIS B CORE TOTAL ANTIBODY Nonreactive Nonreactive (CONRAD) (test code = 497) Splicing Machine Operator Automatic ID - AAHAMIDHEPATITIS B SURFACE [id number] 09:52:00 Test Item Value Reference Range Interpretation Comments HEPATITIS B SURFACE ANTIBODY 256.5 mIU/mL <8.0 H (CONRAD) (test code = 647) Splicing Machine Operator Automatic ID - AAHAMIDPOCT-GLUCOSE [id number] 08:18:00 Test Item Value Reference Range Interpretation Comments POC-GLUCOSE METER 190 mg/dL 70-110 H : Notified RN/MD: (CONRAD) (test code = TESTED AT [facility] 6720 1538) [place] [facility], [address]: Splicing Machine Operator Automatic/Techni elsie ID = [id number] for AN RICARDO DAUGHERTY U/S, ABDOMINAL, [id number] 06:31:00Evaluate spleen size and hepatic vesselsAbdomen limited area? Add comment if clarification is needed.- >LiverReason for exam:->New onset ascites - CT with nodular liver contour - please examine hepatic vasculature to r/o [facility] 1955 Sex: [...] MDReport Verified Date/Time: 11/16/2020 06:31:37 U/S, DUPLEX, [id number] 06:31:00Reason for exam:->hepatic vasculature [facility]vt [facility] : 1955 Sex: [...] Patel MDReport Verified Date/Time: 11/16/2020 06:31:37 POCT-GLUCOSE [id number] 22:44:00 Test Item Value Reference Range Interpretation Comments POC-GLUCOSE METER 191 mg/dL 70-110 H : TESTED A T [facility] 6720 (Cedar BooksAKER) (test code = [facility], 1538) [address]: Splicing Machine Operator Automatic/Techni elsie ID = [id number] for URBANOYUKI TOPETE POCT-GLUCOSE [id number] 22:26:00 Test Item Value Reference Range Interpretation Comments POC-GLUCOSE METER 211 mg/dL 70-110 H : TESTED A T [facility] 6720 (BEAKER) (test code = [facility], 1538) [address]: Splicing Machine Operator Automatic/Techni elsie ID = [id number] for JAMES SPRING POCT-GLUCOSE [id number] 19:18:00 Test Item Value Reference Range Interpretation Comments POC-GLUCOSE METER 122 mg/dL 70-110 H : TESTED A T [facility] 6720 ([facility]) (test code = [facility], 1538) [address]: Splicing Machine Operator Automatic/Techni elsie ID = [id number] for OG DERICANYA, SANDHYA POCT-GLUCOSE [id number] 12:37:00 Test Item Value Reference Range Interpretation Comments POC-GLUCOSE METER 173 mg/dL 70-110 H : TESTED A T [facility] 6720 (BEAKER) (test code = [facility], 1538) [address]: Splicing Machine Operator Automatic/Techni elsie ID = [id number] for RICARDO COOK HEPATITIS B SURFACE [id number] 11:33:00 Test Item Value Reference Range Interpretation Comments HEPATITIS B SURFACE ANTIGEN (2) Nonreactive Nonreactive ([facility] (test code = 2585) Specimen is considered negative for HBsAg.HEPATITIS B SURFACE [id number] 11:33:00 Test Item Value Reference Range Interpretation Comments HEPATITIS B SURFACE ANTIBODY 248.1 mIU/mL <8.0 H ([facility] (test code = 647) Splicing Machine Operator Automatic ID - DBHEPATITIS B CORE ANTIBODY, [id number] 11:33:00 Test Item Value Reference Range Interpretation Comments HEPATITIS B CORE TOTAL ANTIBODY Nonreactive Nonreactive ([facility] (test code = 497) Splicing Machine Operator Automatic ID - DBHEMOGLOBIN [id number] 11:28:00 Test Item Value Reference Range Interpretation [...] 24 % 20-55 (test code = 2590) Splicing Machine Operator Automatic ID - DBPOCT-GLUCOSE [id number] 08:18:00 Test Item Value Reference Range Interpretation Comments POC-GLUCOSE METER 204 mg/dL 70-110 H : Notified RN/MD: (BEAKER) (test code = TESTED AT [facility] 5652 3780) HAILEE [facility], [address]: Splicing Machine Operator Automatic/Techni elsie ID = [id number] for AN RICARDO DAUGHERTY BASIC METABOLIC [id number] 07:13:00 Test Item Value Reference Range Interpretation [...] S NOT APPLICABLE FOR DIALYSIS PATIEN TS. Splicing Machine Operator Automatic ID - [id number] 07:11:00 Test Item Value Reference Range Interpretation Comments MAGNESIUM (BEAKER) (test code = 2.1 mg/dL 1.6-2.6 627) Splicing Machine Operator Automatic ID - DBHEPATIC FUNCTION [id number] 07:11:00 Test Item Value Reference Range Interpretation [...] (test code = 15 U/L 6-55 347) Splicing Machine Operator Automatic ID - DBHEPATITIS C [id number] 06:59:00 Test Item Value Reference Range Interpretation Comments HEPATITIS C ANTIBODY (BEAKER) Nonreactive Nonreactive (test code = 367) Splicing Machine Operator Automatic ID - DBCBC W/PLT COUNT & AUTO [id number] 06:57:00 Test Item Value Reference Range Interpretation [...] PERCENT (BEAKER) (test code = 2801) PROTHROMBIN TIME/[id number] 05:55:00 Test Item Value Reference Range Interpretation [...] mechanical heart valves.RAD, CHEST, 1 VIEW, NON [id number] 01:26:00Reason for exam:->Weight loss, new ascites, volume overloadShould this be performed at the bedside?->Yes [facility] : 1955 Sex: MFINAL [...] 70-110 H Performe d by certified GLUBED) 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 [facility] BASIC METABOLIC [id number] 13:42:00 Test Item Value Reference Range Interpretation [...] 8.2 mg/dL 8.0-10.5 N CA) CBC W/AUTO [id number] 13:28:00 Test Item Value Reference Range Interpretation [...] DIFF REQUIRED (test code NO = MDIFF) [id number] 11:56:00 Test Item Value Reference Range Interpretation Comments GLUBED (test code = 132 MG/DL 70-110 H Performe d by certified GLUBED) 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 [facility] Novel Coronavirus 2019 [id number] 20:44:00 Test Item Value Reference Range Interpretation Comments Novel Coronavirus 2019 Inhouse (test Negative Negative code = COVNONPUI) - XR CHEST 2 [id number] 10:48:00 FAX: Espinoza Santillan MD [phone] [place]: St: PRE Name: TROY FORTE [facility] : 1955 Age/S: 64/M [address] [place] [address] Unit#: [id number] Loc: MAMTA Rahman [address] Phys: Espinoza Villagran MD Acct: [id number] Dis Date: Status: PRE SDC PHONE #: [phone] Exam Date: 06/18/2020 0958 FAX #: [phone] Reason: PREOP- ESRD EXAMS: CPT CODE: [id number] XR CHEST 2 V 37091 CLINICAL HISTORY: PREOP- ESRD COMPARISON: March 22, [...] MD Technologist: RT Paolo(R) Trnscrd Date/Time/By: 06/18/2020 (9505) : By: Ivonne Orig Print D/T: S: 06/18/2020 (5338) PAGE 1 Signed ReportBASIC METABOLIC [id number] 09:12:00 Test Item Value Reference Range Interpretation [...] = 8.0 mg/dL 8.0-10.5 N CA) PROTHROMBIN [id number] 09:06:00 Test Item Value Reference Range Interpretation [...] o prevent recurre nt infarct). THROMBOPLASTIN TIME [id number] 09:06:00 Test Item Value Reference Range Interpretation Comments THROMBOPLASTIN TIME PARTIAL (test Seconds 25.0-39.5 code = PTT) PROTHROMBIN [id number] 09:06:00 Test Item Value Reference Range Interpretation [...] o prevent recurre nt infarct). THROMBOPLASTIN TIME [id number] 09:06:00 Test Item Value Reference Range Interpretation Comments THROMBOPLASTIN TIME 37.2 Seconds 25.0-39.5 N Ther apeutic PARTIAL (test code = Range: 50.4 - 88.3 PTT) Seconds Effective 02/20/2019 CBC W/AUTO [id number] 08:58:00 Test Item Value Reference Range Interpretation [...] REQUIRED (test code NO = MDIFF) URINE [id number] 14:16:00 Test Item Value Reference Range Interpretation Comments CULTURE ([facility]) (test ESCHERICHIA COLI A 4 0-49,000 col/mL [...] S Sulfamethoxazole (test code = 47) CULTURE ([facility]) (test A 80-89 ,000 col/mL code = 1095) Ekaterina albican s POCT-GLUCOSE [id number] 17:07:00 Test Item Value Reference Range Interpretation Comments POC-GLUCOSE METER 168 mg/dL 70-110 H TESTED AT [place] [address] ([facility]) (test code = [facility] 1538) [address] POCT-GLUCOSE [id number] 13:49:00 Test Item Value Reference Range Interpretation Comments POC-GLUCOSE METER 172 mg/dL 70-110 H TESTED AT [place] [address] ([facility] [facility]) (test code = [place] 7771) [address] BASIC METABOLIC [id number] 09:18:00 Test Item Value Reference Range Interpretation [...] H (BEAKER) (test code = 413) POCT-GLUCOSE [id number] 21:43:00 Test Item Value Reference Range Interpretation Comments POC-GLUCOSE METER 175 mg/dL 70-110 H TESTED AT [facility] 6720 ([facility]) (test code = [place] 1538) [address] POCT-GLUCOSE [id number] 12:42:00 Test Item Value Reference Range Interpretation Comments POC-GLUCOSE METER 113 mg/dL 70-110 H TESTED AT [facility] 67 ([facility]) (test code = [facility] Melodie [facility] 1538) [address] BASIC METABOLIC [id number] 08:22:00 Test Item Value Reference Range Interpretation [...] 0-0 (AKER) (test code = 413) POCT-GLUCOSE [id number] 21:40:00 Test Item Value Reference Range Interpretation Comments POC-GLUCOSE METER 159 mg/dL 70-110 H TESTED AT [place] [address] ([facility]) (test code = [place] 1538) [address] POCT-GLUCOSE [id number] 17:24:00 Test Item Value Reference Range Interpretation Comments POC-GLUCOSE METER 203 mg/dL 70-110 H TESTED AT [place] [address] ([facility]) (test code = [place] 1538) [address] POCT-GLUCOSE [id number] 13:17:00 Test Item Value Reference Range Interpretation Comments POC-GLUCOSE METER 201 mg/dL 70-110 H TESTED AT [place] [address] ([facility]) (test code = [place]ER[place] [facility] 1538) [address] POCT-GLUCOSE [id number] 08:11:00 Test Item Value Reference Range Interpretation Comments POC-GLUCOSE METER 199 mg/dL 70-110 H TESTED AT [place] [address] ([facility]) (test code = [place] 1538) [address] BASIC METABOLIC [id number] 07:40:00 Test Item Value Reference Range Interpretation [...] 0-0 (BEAKER) (test code = 413) POCT-GLUCOSE [id number] 23:55:00 Test Item Value Reference Range Interpretation Comments POC-GLUCOSE METER 198 mg/dL 70-110 H TESTED AT [place] [address] (BEAKER) (test code = [facility] [place] [facility] 1538) [address] POCT-GLUCOSE [id number] 22:53:00 Test Item Value Reference Range Interpretation Comments POC-GLUCOSE METER 205 mg/dL 70-110 H TESTED AT [place] [address] ([facility]) (test code = [facility] 1538) 7[address] POCT-GLUCOSE [id number] 18:28:00 Test Item Value Reference Range Interpretation Comments POC-GLUCOSE METER 252 mg/dL 70-110 H TESTED AT [place] [address] ([facility]) (test code = [facility] 1538) [address] POCT-GLUCOSE [id number] 13:01:00 Test Item Value Reference Range Interpretation Comments POC-GLUCOSE METER 118 mg/dL 70-110 H TESTED AT [place] [address] ([facility]) (test code = [facility] 1538) [address] BASIC METABOLIC [id number] 07:03:00 Test Item Value Reference Range Interpretation [...] NOT APPLICABLE FOR DIALYSIS PATIEN TS. POCT-GLUCOSE [id number] 21:53:00 Test Item Value Reference Range Interpretation Comments POC-GLUCOSE METER 189 mg/dL 70-110 H TESTED AT [place] [address] ([facility]) (test code = [facility] 1538) [address] POCT-GLUCOSE [id number] 18:21:00 Test Item Value Reference Range Interpretation Comments POC-GLUCOSE METER 207 mg/dL 70-110 H TESTED AT [place] [address] ([facility]) (test code = [facility] 1538) [address] POCT-GLUCOSE [id number] 12:36:00 Test Item Value Reference Range Interpretation Comments POC-GLUCOSE METER 95 mg/dL 70-110 TESTED AT [place] [address] ([facility]) (test code = [facility] [address] 1538) BASIC METABOLIC [id number] 09:00:00 Test Item Value Reference Range Interpretation [...] % 40.1-51.0 L 411) MEAN CORPUSCULAR VOLUME ([facility]) 96.8 fL 79.0-92.2 H (test code = 753) MEAN CORPUSCULAR HEMOGLOBIN 28.1 pg 25.7-32.2 (BEAKER) (test code = 751) MEAN CORPUSCULAR HEMOGLOBIN CONC 29.0 GM/DL 32.3-36.5 L (BEAKER) (test code = 752) RED CELL DISTRIBUTION WIDTH 18.0 % 11.6-14.4 H ([facility]) (test code = 412) PLATELET COUNT ([facility]) (test 355 K/CU MM 150-450 code = 756) MEAN PLATELET VOLUME ([facility]) 9.9 fL 9.4-12.4 (test code = 754) NUCLEATED RED BLOOD CELLS 1 /100 WBC 0-0 H ([facility]) (test code = 413) POCT-GLUCOSE [id number] 21:13:00 Test Item Value Reference Range Interpretation Comments POC-GLUCOSE METER 125 mg/dL 70-110 H TESTED AT [place] [address] ([facility]) (test code = [place] 8[address]268) [address] POCT-GLUCOSE [id number] 13:58:00 Test Item Value Reference Range Interpretation Comments POC-GLUCOSE METER 150 mg/dL 70-110 H TESTED AT [place] [address] ([facility]) (test code = [place] [facility] 1538) [address] POCT-GLUCOSE [id number] 09:25:00 Test Item Value Reference Range Interpretation Comments POC-GLUCOSE METER 67 mg/dL 70-110 L Notified Melodie Davila MD/TESTED AT ([facility]) (test code = [place] [address] [facility]8) [facility] 7703 0 POCT-GLUCOSE [id number] 09:25:00 Test Item Value Reference Range Interpretation Comments POC-GLUCOSE METER 65 mg/dL 70-110 L Notified Melodie Davila MD/TESTED AT ([facility]) (test code = [place] [address] [facility]) [facility] 7703 0 BASIC METABOLIC [id number] 07:54:00 Test Item Value Reference Range Interpretation [...] 0-0 (BEAKER) (test code = 413) POCT-GLUCOSE [id number] 21:31:00 Test Item Value Reference Range Interpretation Comments POC-GLUCOSE METER 119 mg/dL 70-110 H TESTED AT [place] [address] (BEAKER) (test code = [facility] 1538) 6[address] POCT-GLUCOSE [id number] 17:15:00 Test Item Value Reference Range Interpretation Comments POC-GLUCOSE METER 117 mg/dL 70-110 H TESTED AT [place] [address] ([facility]) (test code = [facility] 1538) [address]66 POCT-GLUCOSE [id number] 12:55:00 Test Item Value Reference Range Interpretation Comments POC-GLUCOSE METER 76 mg/dL 70-110 TESTED AT [place] [address] ([facility]) (test code = [facility] [address] 1538) BASIC METABOLIC [id number] 08:15:00 Test Item Value Reference Range Interpretation [...] NOT APPLICABLE FOR DIALYSIS PATIEN TS. POCT-GLUCOSE [id number] 08:11:00 Test Item Value Reference Range Interpretation Comments POC-GLUCOSE METER 101 mg/dL 70-110 TESTED AT [place] [address] ([facility]) (test code = [place] 1538) [address] CBC (HEMOGRAM ONLY)2019-06-09 06:58:00 Test Item Value [...] 0-0 (BEAKER) (test code = 413) POCT-GLUCOSE [id number] 20:40:00 Test Item Value Reference Range Interpretation Comments POC-GLUCOSE METER 116 mg/dL 70-110 H TESTED AT [place] [address] ([facility]) (test code = [place] 1538) [address] POCT-GLUCOSE [id number] 17:32:00 Test Item Value Reference Range Interpretation Comments POC-GLUCOSE METER 122 mg/dL 70-110 H TESTED AT [place] [address] (BEAKER) (test code = [place] 1538) [address] POCT-GLUCOSE [id number] 17:14:00 Test Item Value Reference Range Interpretation Comments POC-GLUCOSE METER 112 mg/dL 70-110 H TESTED AT [place] [address] ([facility]) (test code = [place] 1538) 8[address] POCT-GLUCOSE [id number] 16:56:00 Test Item Value Reference Range Interpretation Comments POC-GLUCOSE METER 219 mg/dL 70-110 H TESTED AT [place] [address] ([facility]) (test code = [place] [facility] 1538) 08485 POCT-GLUCOSE [id number] 09:50:00 Test Item Value Reference Range Interpretation Comments POC-GLUCOSE METER 117 mg/dL 70-110 H TESTED AT [place] [address] ([facility]) (test code = [place] [facility] 1538) [address] BASIC METABOLIC [id number] 07:14:00 Test Item Value Reference Range Interpretation [...] 40.1-51.0 L 411) MEAN CORPUSCULAR VOLUME (AKER) 97.0 fL 79.0-92.2 H (test code = 753) MEAN CORPUSCULAR HEMOGLOBIN 28.6 pg 25.7-32.2 (BEAKER) (test code = 751) MEAN CORPUSCULAR HEMOGLOBIN CONC 29.5 GM/DL 32.3-36.5 L (AKER) (test code = 752) RED CELL DISTRIBUTION WIDTH 17.3 % 11.6-14.4 H (BEAKER) (test code = 412) PLATELET COUNT ([facility]) (test 336 K/CU MM 150-450 code = 756) MEAN PLATELET VOLUME (AKER) 10.2 fL 9.4-12.4 (test code = 754) NUCLEATED RED BLOOD CELLS 0 /100 WBC 0-0 ([facility]) (test code = 413) POCT-GLUCOSE [id number] 21:59:00 Test Item Value Reference Range Interpretation Comments POC-GLUCOSE METER 78 mg/dL 70-110 TESTED AT [place] [address] ([facility]) (test code = [facility] [address] 1538) POCT-GLUCOSE [id number] 17:57:00 Test Item Value Reference Range Interpretation Comments POC-GLUCOSE METER 113 mg/dL 70-110 H TESTED AT [place] [address] ([facility]) (test code = [facility] 1538) 6[address]56 POCT-GLUCOSE [id number] 14:30:00 Test Item Value Reference Range Interpretation Comments POC-GLUCOSE METER 227 mg/dL 70-110 H TESTED AT [place] [address] ([facility]) (test code = [facility] 1538) 994[address] BASIC METABOLIC [id number] 08:20:00 Test Item Value Reference Range Interpretation [...] NOT APPLICABLE FOR DIALYSIS PATIEN TS. POCT-GLUCOSE [id number] 08:01:00 Test Item Value Reference Range Interpretation Comments POC-GLUCOSE METER 139 mg/dL 70-110 H TESTED AT [facility] 6720 (BEAKER) (test code = [place] 1538) [address] CBC (HEMOGRAM ONLY)2019-06-07 07:07:00 Test Item Value [...] 0-0 (BEAKER) (test code = 413) POCT-GLUCOSE [id number] 22:52:00 Test Item Value Reference Range Interpretation Comments POC-GLUCOSE METER 271 mg/dL 70-110 H TESTED AT [facility] 6720 (BEAKER) (test code = [place] 1538) 70[address] POCT-GLUCOSE [id number] 17:23:00 Test Item Value Reference Range Interpretation Comments POC-GLUCOSE METER 273 mg/dL 70-110 H TESTED AT [facility] 6720 (BEAKER) (test code = [place] 1538) [address] POCT-GLUCOSE [id number] 12:33:00 Test Item Value Reference Range Interpretation Comments POC-GLUCOSE METER 107 mg/dL 70-110 TESTED AT [place] [address] (BEAKER) (test code = [place] [facility] 1538) 39986 BASIC METABOLIC [id number] 08:59:00 Test Item Value Reference Range Interpretation [...] (BEAKER) (test code = 412) PLATELET COUNT ([facility]) (test 330 K/CU MM 150-450 code = 756) MEAN PLATELET VOLUME (AKER) 10.1 fL 9.4-12.4 (test code = 754) NUCLEATED RED BLOOD CELLS 0 /100 WBC 0-0 ([facility]) (test code = 413) POCT-GLUCOSE [id number] 21:40:00 Test Item Value Reference Range Interpretation Comments POC-GLUCOSE METER 137 mg/dL 70-110 H TESTED AT [place] [address] ([facility]) (test code = [place] 1538) 6[address] POCT-GLUCOSE [id number] 18:27:00 Test Item Value Reference Range Interpretation Comments POC-GLUCOSE METER 219 mg/dL 70-110 H TESTED AT [place] [address] ([facility]) (test code = [place] 1538) 09661 POCT-GLUCOSE [id number] 13:10:00 Test Item Value Reference Range Interpretation Comments POC-GLUCOSE METER 168 mg/dL 70-110 H TESTED AT [place] [address] ([facility]) (test code = [place] 1538) 14123 POCT-GLUCOSE [id number] 10:22:00 Test Item Value Reference Range Interpretation Comments POC-GLUCOSE METER 161 mg/dL 70-110 H TESTED AT [place] [address] ([facility]) (test code = [place] 1538) [address] BASIC METABOLIC [id number] 04:41:00 Test Item Value Reference Range Interpretation [...] S NOT APPLICABLE FOR DIALYSIS PATIEN TS. [id number] 04:40:00 Test Item Value Reference Range Interpretation [...] 0-0 (BEAKER) (test code = 413) POCT-GLUCOSE [id number] 21:42:00 Test Item Value Reference Range Interpretation Comments POC-GLUCOSE METER 176 mg/dL 70-110 H TESTED AT [place] [address] ([facility]) (test code = [facility] Melodie [facility] 1538) 10315 POCT-GLUCOSE [id number] 14:38:00 Test Item Value Reference Range Interpretation Comments POC-GLUCOSE METER 179 mg/dL 70-110 H TESTED AT [place] [address] ([facility]) (test code = [facility] Melodie [facility] 1538) 10147 POCT-GLUCOSE [id number] 09:07:00 Test Item Value Reference Range Interpretation Comments POC-GLUCOSE METER 155 mg/dL 70-110 H TESTED AT [place] [address] ([facility]) (test code = [facility] 1538) 31414 BASIC METABOLIC [id number] 07:49:00 Test Item Value Reference Range Interpretation [...] S NOT APPLICABLE FOR DIALYSIS PATIBRENDA TS. [id number] 07:44:00 Test Item Value Reference Range Interpretation [...] 0-0 (BEAKER) (test code = 413) POCT-GLUCOSE [id number] 22:34:00 Test Item Value Reference Range Interpretation Comments POC-GLUCOSE METER 246 mg/dL 70-110 H TESTED AT [place] [address] ([facility]) (test code = [place] 1538) 14056 POCT-GLUCOSE [id number] 18:15:00 Test Item Value Reference Range Interpretation Comments POC-GLUCOSE METER 201 mg/dL 70-110 H TESTED AT [place] [address] ([facility]) (test code = [place] 1538) 0[address]73 POCT-GLUCOSE [id number] 13:12:00 Test Item Value Reference Range Interpretation Comments POC-GLUCOSE METER 211 mg/dL 70-110 H TESTED AT [facility] 6720 (BEAKER) (test code = CE[place] 1538) 0[address] POCT-GLUCOSE [id number] 08:17:00 Test Item Value Reference Range Interpretation Comments POC-GLUCOSE METER 204 mg/dL 70-110 H TESTED AT [facility] 6720 (BEAKER) (test code = [place] 1538) 12373 BASIC METABOLIC [id number] 08:05:00 Test Item Value Reference Range Interpretation [...] S NOT APPLICABLE FOR DIALYSIS PATIEN TS. [id number] 08:04:00 Test Item Value Reference Range Interpretation [...] 753) MEAN CORPUSCULAR HEMOGLOBIN 28.0 pg 25.7-32.2 ([facility]) (test code = 751) MEAN CORPUSCULAR HEMOGLOBIN CONC 29.6 GM/DL 32.3-36.5 L ([facility]) (test code = 752) RED CELL DISTRIBUTION WIDTH 16.8 % 11.6-14.4 H ([facility]) (test code = 412) PLATELET COUNT ([facility]) (test 298 K/CU MM 150-450 code = 756) MEAN PLATELET VOLUME ([facility]) 9.9 fL 9.4-12.4 (test code = 754) NUCLEATED RED BLOOD CELLS 0 /100 WBC 0-0 ([facility]) (test code = 413) POCT-GLUCOSE [id number] 22:17:00 Test Item Value Reference Range Interpretation Comments POC-GLUCOSE METER 154 mg/dL 70-110 H TESTED AT [place] [address] ([facility]) (test code = CIERA Sewell [facility] 1538) 33094 POCT-GLUCOSE [id number] 22:14:00 Test Item Value Reference Range Interpretation Comments POC-GLUCOSE METER 172 mg/dL 70-110 H TESTED AT [place] [address] ([facility]) (test code = CIERA Sewell [facility] 1538) 97559 POCT-GLUCOSE [id number] 17:34:00 Test Item Value Reference Range Interpretation Comments POC-GLUCOSE METER 187 mg/dL 70-110 H TESTED AT [place] [address] ([facility]) (test code = CIERA Sewell [facility] 1538) 62606 POCT-GLUCOSE [id number] 12:28:00 Test Item Value Reference Range Interpretation Comments POC-GLUCOSE METER 192 mg/dL 70-110 H TESTED AT [place] [address] ([facility]) (test code = [place] 1538) 64288 POCT-GLUCOSE [id number] 07:43:00 Test Item Value Reference Range Interpretation Comments POC-GLUCOSE METER 132 mg/dL 70-110 H TESTED AT [place] [address] ([facility]) (test code = [place] 1538) 894[address] POCT-GLUCOSE [id number] 21:47:00 Test Item Value Reference Range Interpretation Comments POC-GLUCOSE METER 255 mg/dL 70-110 H TESTED AT [facility] 6720 (BEAKER) (test code = CI[place] 1538) 81173 POCT-GLUCOSE [id number] 11:45:00 Test Item Value Reference Range Interpretation Comments POC-GLUCOSE METER 159 mg/dL 70-110 H TESTED AT [place] [address] (BEAKER) (test code = [facility] Melodie [place] 1538) 0[address] [id number] 11:17:00 Test Item Value Reference Range Interpretation [...] 20-55 L (test code = 2590) POCT-GLUCOSE [id number] 08:44:00 Test Item Value Reference Range Interpretation Comments POC-GLUCOSE METER 170 mg/dL 70-110 H TESTED AT [place] [address] (BEAKER) (test code = [facility] 1538) 64571 BASIC METABOLIC [id number] 04:42:00 Test Item Value Reference Range Interpretation [...] S NOT APPLICABLE FOR DIALYSIS PATIEN TS. [id number] 03:47:00 Test Item Value Reference Range Interpretation Comments MAGNESIUM (BEAKER) (test code = 2.1 mg/dL 1.6-2.6 627) CBC W/PLT COUNT & AUTO [id number] 03:36:00 Test Item Value Reference Range Interpretation [...] (test code = 416) BASOPHILS ABSOLUTE COUNT ([facility]) 0.01 K/ L 0.01-0.08 (test code = 417) IMMATURE GRANULOCYTES-RELATIVE 1 % 0-1 PERCENT ([facility]) (test code = 2801) POCT-GLUCOSE [id number] 22:05:00 Test Item Value Reference Range Interpretation Comments POC-GLUCOSE METER 91 mg/dL 70-110 TESTED AT [place] [address] ([facility]) (test code = [facility] [address] 1538) POCT-GLUCOSE [id number] 18:37:00 Test Item Value Reference Range Interpretation Comments POC-GLUCOSE METER 102 mg/dL 70-110 TESTED AT [place] [address] ([facility]) (test code = [facility] 1538) 59593 POCT-GLUCOSE [id number] 12:26:00 Test Item Value Reference Range Interpretation Comments POC-GLUCOSE METER 113 mg/dL 70-110 H TESTED AT [place] [address] ([facility]) (test code = [facility] 1538) 90086 POCT-GLUCOSE [id number] 08:07:00 Test Item Value Reference Range Interpretation Comments POC-GLUCOSE METER 73 mg/dL 70-110 TESTED AT [place] [address] ([facility]) (test code = [facility] [address] 1538) BLOOD [id number] 08:01:00 Test Item Value Reference Range Interpretation Comments CULTURE (BEAKER) (test No growth in 5 days code = 1095) BLOOD [id number] 08:01:00 Test Item Value Reference Range Interpretation Comments CULTURE (BEAKER) (test No growth in 5 days code = 1095) CBC W/PLT COUNT & AUTO [id number] 06:59:00 Test Item Value Reference Range Interpretation Comments WHITE BLOOD CELL COUNT ([facility]) 8.3 K/ L 3.5-10.5 (test code = [...] (BEAKER) (test code = 2801) BASIC METABOLIC [id number] 06:27:00 Test Item Value Reference Range Interpretation [...] S NOT APPLICABLE FOR DIALYSIS PATIEN TS. [id number] 06:18:00 Test Item Value Reference Range Interpretation Comments MAGNESIUM (BEAKER) 1.6 mg/dL 1.6-2.6 Specimen slightly (test code = 627) hemolyzed URINALYSIS W/ REFLEX URINE [id number] 23:41:00 Test Item Value Reference Range Interpretation [...] 516) SOURCE(BEAKER) (test code = 2795) POCT-GLUCOSE [id number] 21:42:00 Test Item Value Reference Range Interpretation Comments POC-GLUCOSE METER 139 mg/dL 70-110 H TESTED AT [place] [address] ([facility]) (test code = [facility] 1538) 61767 POCT-GLUCOSE [id number] 20:39:00 Test Item Value Reference Range Interpretation Comments POC-GLUCOSE METER 65 mg/dL 70-110 L TESTED AT [place] [address] ([facility]) (test code = [facility] [address] 1538) POCT-GLUCOSE [id number] 17:54:00 Test Item Value Reference Range Interpretation Comments POC-GLUCOSE METER 78 mg/dL 70-110 TESTED AT [place] [address] ([facility]) (test code = [facility] [address] 1538) CBC W/PLT COUNT & AUTO [id number] 10:44:00 Test Item Value Reference Range Interpretation [...] 3438) Received comment: User comments: Slide comments:POCT-GLUCOSE [id number] 07:50:00 Test Item Value Reference Range Interpretation Comments POC-GLUCOSE METER 70 mg/dL 70-110 TESTED AT [facility] 6720 (BEAKER) (test code = [place] [address] 1538) BASIC METABOLIC [id number] 06:36:00 Test Item Value Reference Range Interpretation [...] S NOT APPLICABLE FOR DIALYSIS PATIEN TS. [id number] 06:33:00 Test Item Value Reference Range Interpretation Comments MAGNESIUM (BEAKER) (test code = 2.2 mg/dL 1.6-2.6 627) POCT-GLUCOSE [id number] 22:28:00 Test Item Value Reference Range Interpretation Comments POC-GLUCOSE METER 120 mg/dL 70-110 H TESTED AT [facility] 6720 (BEAKER) (test code = [facility] Melodie [facility] 1538) 94533 POCT-GLUCOSE [id number] 19:33:00 Test Item Value Reference Range Interpretation Comments POC-GLUCOSE METER 166 mg/dL 70-110 H TESTED AT [facility] 6720 (BEAKER) (test code = [facility] [place] 1538) 48166 POCT-GLUCOSE [id number] 13:30:00 Test Item Value Reference Range Interpretation Comments POC-GLUCOSE METER 168 mg/dL 70-110 H TESTED AT [facility] 6720 (BEAKER) (test code = [place] 1538) [id number] POCT-GLUCOSE [id number] 07:37:00 Test Item Value Reference Range Interpretation Comments POC-GLUCOSE METER 117 mg/dL 70-110 H TESTED AT [facility] 6720 (BEAKER) (test code = [place] 1538) [id number] BASIC METABOLIC [id number] 06:57:00 Test Item Value Reference Range Interpretation [...] S NOT APPLICABLE FOR DIALYSIS PATIEN TS. [id number] 06:52:00 Test Item Value Reference Range Interpretation [...] = 7.1 GM/DL 13.7-17.5 L 410) HEMATOCRIT ([facility]) (test code = 23.4 % 40.1-51.0 L 411) MEAN CORPUSCULAR VOLUME ([facility]) 92.5 fL 79.0-92.2 H (test code = 753) MEAN CORPUSCULAR HEMOGLOBIN 28.1 pg 25.7-32.2 ([facility]) (test code = 751) MEAN CORPUSCULAR HEMOGLOBIN CONC 30.3 GM/DL 32.3-36.5 L (AKER) (test code = 752) RED CELL DISTRIBUTION WIDTH 17.1 % 11.6-14.4 H ([facility]) (test code = 412) PLATELET COUNT ([facility]) (test 180 K/CU MM 150-450 code = 756) MEAN PLATELET VOLUME ([facility]) 10.6 fL 9.4-12.4 (test code = 754) NUCLEATED RED BLOOD CELLS 0 /100 WBC 0-0 ([facility]) (test code = 413) POCT-GLUCOSE [id number] 21:52:00 Test Item Value Reference Range Interpretation Comments POC-GLUCOSE METER 174 mg/dL 70-110 H TESTED AT [place] [address] ([facility]) (test code = [facility] 1538) [address] POCT-GLUCOSE [id number] 17:58:00 Test Item Value Reference Range Interpretation Comments POC-GLUCOSE METER 151 mg/dL 70-110 H TESTED AT [place] [address] ([facility]) (test code = [facility] 1538) [id number] POCT-GLUCOSE [id number] 12:35:00 Test Item Value Reference Range Interpretation Comments POC-GLUCOSE METER 225 mg/dL 70-110 H TESTED AT [place] [address] ([facility]) (test code = [facility] [place] 1538) [id number] HEMOGLOBIN [id number] 08:34:00 Test Item Value Reference Range Interpretation Comments HEMOGLOBIN A1C ([facility]) (test code = 6.3 % 4.3-6.1 H 368) POCT-GLUCOSE [id number] 07:56:00 Test Item Value Reference Range Interpretation Comments POC-GLUCOSE METER 141 mg/dL 70-110 H TESTED AT [place] [address] ([facility]) (test code = [facility] 1538) [id number] CBC (HEMOGRAM ONLY)2019-05-28 06:12:00 Test Item Value [...] (BEAKER) (test code = 413) BASIC METABOLIC [id number] 06:02:00 Test Item Value Reference Range Interpretation [...] NOT APPLICABLE FOR DIALYSIS PATIEN TS. POCT-GLUCOSE [id number] 22:24:00 Test Item Value Reference Range Interpretation Comments POC-GLUCOSE METER 171 mg/dL 70-110 H TESTED AT [place] [address] ([facility]) (test code = [facility] 1538) [id number] HEPATITIS B [id number] 20:01:00 Test Item Value Reference Range Interpretation Comments HEPATITIS B CORE TOTAL ANTIBODY Nonreactive Nonreactive (AKER) (test code = 497) HEPATITIS B SURFACE ANTIBODY < mIU/mL <8.0 ([facility]) (test code = 647) HEPATITIS B SURFACE ANTIGEN (2) Nonreactive Nonreactive ([facility]) (test code = 2585) POCT-GLUCOSE [id number] 17:37:00 Test Item Value Reference Range Interpretation Comments POC-GLUCOSE METER 158 mg/dL 70-110 H TESTED AT [place] [address] ([facility]) (test code = [facility] 1538) [id number] CBC (HEMOGRAM ONLY)2019-05-27 16:37:00 Test Item Value [...] (BEAKER) (test code = 413) BASIC METABOLIC [id number] 16:28:00 Test Item Value Reference Range Interpretation [...] NOT APPLICABLE FOR DIALYSIS PATIEN TS. POCT-GLUCOSE [id number] 12:29:00 Test Item Value Reference Range Interpretation Comments POC-GLUCOSE METER 155 mg/dL 70-110 H TESTED AT [facility] 6720 (BEAKER) (test code = [facility] [place] 1538) [address] [id number] 09:20:00 Test Item Value Reference Range Interpretation Comments PHOSPHORUS (BEAKER) (test code = 3.4 mg/dL 2.3-4.7 604) [id number] 09:20:00 Test Item Value Reference Range Interpretation Comments MAGNESIUM (BEAKER) (test code = 2.0 mg/dL 1.6-2.6 627) PH, [id number] 08:49:00 Test Item Value Reference Range Interpretation Comments PH ARTERIAL (BEAKER) (test code = 383) 7.35 7.35-7.45 POCT-GLUCOSE [id number] 08:11:00 Test Item Value Reference Range Interpretation Comments POC-GLUCOSE METER 137 mg/dL 70-110 H TESTED AT [facility] 6720 (BEAKER) (test code = [place] 1538) [address] BASIC METABOLIC [id number] 03:25:00 Test Item Value Reference Range Interpretation [...] PATIEN TS. CBC W/PLT COUNT & AUTO [id number] 03:11:00 Test Item Value Reference Range Interpretation [...] H PERCENT (BEAKER) (test code = 2801) [id number] 02:48:00 Test Item Value Reference Range Interpretation Comments MAGNESIUM (BEAKER) 2.2 mg/dL 1.6-2.6 Specimen slightly (test code = 627) hemolyzed [id number] 02:48:00 Test Item Value Reference Range Interpretation Comments PHOSPHORUS (BEAKER) 3.9 mg/dL 2.3-4.7 Specimen slightly (test code = 604) hemolyzed PH, [id number] 02:08:00 Test Item Value Reference Range Interpretation Comments PH ARTERIAL (BEAKER) (test code = 383) 7.41 7.35-7.45 RAD, CHEST, 1 VIEW, NON [id number] 22:15:00Reason for exam:->line placementShould this be performed [...] Arredondo Verified Date/Time: 05/26/2019 22:15:38 BASI METABOLIC [id number] 17:25:00 Test Item Value Reference Range Interpretation [...] NOT APPLICABLE FOR DIALYSIS PATIEN TS. POCT-GLUCOSE [id number] 17:09:00 Test Item Value Reference Range Interpretation Comments POC-GLUCOSE METER 233 mg/dL 70-110 H TESTED AT [facility] 67 ([facility]) (test code = [place] [facility] 1538) [id number] TROPONIN [id number] 12:31:00 Test Item Value Reference Range Interpretation [...] failure, acidosis, acute neurological disease, and persistent tachyarrhythmia.[id number] 12:26:00 Test Item Value Reference Range Interpretation Comments CALCIUM (BEAKER) (test code = 697) 7.7 mg/dL 8.4-10.2 L [id number] 12:24:00 Test Item Value Reference Range Interpretation Comments POTASSIUM (BEAKER) (test code = 4.4 meq/L 3.5-5.1 379) [id number] 12:24:00 Test Item Value Reference Range Interpretation Comments MAGNESIUM (BEAKER) (test code = 2.2 mg/dL 1.6-2.6 627) [id number] 12:24:00 Test Item Value Reference Range Interpretation Comments SODIUM (BEAKER) (test code = 381) 128 meq/L 136-145 L POCT-GLUCOSE [id number] 12:15:00 Test Item Value Reference Range Interpretation Comments POC-GLUCOSE METER 281 mg/dL 70-110 H TESTED AT [place] [address] ([facility]) (test code = [place] [facility] 1538) [address] PH, [id number] 11:52:00 Test Item Value Reference Range Interpretation Comments PH ARTERIAL (BEAKER) (test code = 383) 7.36 7.35-7.45 RAD, CHEST, 1 VIEW, NON [id number] 08:05:00Reason for exam:->central line placementFINAL REPORT CLINICAL [...] Villagran MDReport Verified Date/Time:05/26/2019 08:05:54 Reading Location: [address] Neuro Reading Room TROPONIN [id number] 06:42:00 Test Item Value Reference Range Interpretation [...] acidosis, acute neurological disease, and persistent tachyarrhythmia.TROPONIN [id number] 06:41:00 Test Item Value Reference Range Interpretation [...] acute neurological disease, and persistent tachyarrhythmia.BASIC METABOLIC [id number] 06:23:00 Test Item Value Reference Range Interpretation [...] NOT APPLICABLE FOR DIALYSIS PATIEN TS. PROTHROMBIN [id number] 06:20:00 Test Item Value Reference Range Interpretation [...] INR is2.5-3.5 for patients wiht mechanical heart valves.[id number] 06:17:00 Test Item Value Reference Range Interpretation Comments PHOSPHORUS (BEAKER) (test code = 4.5 mg/dL 2.3-4.7 604) [id number] 06:17:00 Test Item Value Reference Range Interpretation Comments MAGNESIUM (BEAKER) (test code = 2.4 mg/dL 1.6-2.6 627) CBC W/PLT COUNT & AUTO [id number] 06:03:00 Test Item Value Reference Range Interpretation [...] (test code = 2801) TSH/FREE T4 IF [id number] 22:17:00 Test Item Value Reference Range Interpretation Comments THYROID STIMULATING HORMONE 3.33 uIU/mL 0.35-4.94 (BEAKER) (test code = 772) TROPONIN [id number] 21:59:00 Test Item Value Reference Range Interpretation [...] H (BEAKER) (test code = 700) C-REACTIVE [id number] 21:51:00 Test Item Value Reference Range Interpretation Comments C-REACTIVE PROTEIN (BEAKER) (test 13.88 mg/dL 0.00-0.50 H code = 676) COMPREHENSIVE METABOLIC [id number] 21:51:00 Test Item Value Reference Range Interpretation [...] PATIEN TS. CBC W/PLT COUNT & AUTO [id number] 21:20:00 Test Item Value Reference Range Interpretation [...] 0-1 H PERCENT (BEAKER) (test code = 6102)
--- NOTE | 2022-04-22 16:56 | ER ---
Nurse's Notes [facility] Name: Benji Villalpando Age: 66 yrs Sex: Male : 1955 Arrival Date: 04/22/2022 Time: 16:42 Bed 2 Private MD: Diagnosis: Person with feared health complaint in whom no diagnosis is made;End stage renal disease Presentation: 04/22 16:42 Chief complaint: EMS states: physical therapy called ems for low 02. EMS reporting that [facility] pt was 97% on arrival ,that o2 tubing for pt was crimped in multiple places and that pt had 30ft of O2 tubing. Coronavirus screen: Vaccine status: Patient reports receiving the 2nd dose of the covid vaccine. Ebola Screen: Patient negative for fever greater than or equal to 101.5 degrees Fahrenheit, and additional compatible Ebola Virus Disease symptoms Patient denies exposure to infectious person. Patient denies travel to an Ebola-affected area in the 21 days before illness onset. Initial Sepsis Screen: Does the patient meet any 2 criteria? RR > 20 per min. Does the patient have a suspected source of infection? No. Patient's initial sepsis screen is negative. Risk Assessment: Do you want to hurt yourself or someone else? Patient reports no desire to harm self or others. Onset of symptoms was April 22, 2022. 16:42 Method Of Arrival: EMS: [place] [id number] 16:42 Acuity: MILADYS 3 6 Triage Assessment: 16:48 General: Appears in no apparent distress. Behavior is calm, cooperative. Pain: Denies 6 pain. Historical: - PMHx: 16:51 Anemia; CHF; chronic kidney disease; Diabetes - NIDDM; Dialysis T-T-S; Hyperlipidemia; jh6 Hypertension; Hypothyroidism; Myocardial infarction; RENAL FAILURE; - PSHx: 16:51 fistula; heart bypass; pacemaker; jh6 - Immunization history:: Adult Immunizations up to date. - Social history:: Smoking status: Patient denies any tobacco usage or history of. Screenin:50 Abuse screen: Denies threats or abuse. Nutritional screening: No deficits noted. 6 Tuberculosis screening: No symptoms or risk factors identified. Fall Risk Gait- Impaired (20 pts.). Assessment: 16:49 General: Appears in no apparent distress. Behavior is calm, cooperative. Pain: Denies 6 pain. Respiratory: No deficits noted. Airway is patent Respiratory effort is even, unlabored, Respiratory pattern is regular, symmetrical, Breath sounds are clear. GI: Abdomen is round Bowel sounds present X 4 quads. Abd is soft X 4 quads. Vital Signs: 16:42 BP 109 / 60; Pulse 81; Resp 20; Temp 97.1(TE); Pulse Ox 100% on R/A; Weight 86.18 kg; jh6 Height 5 ft. 6 in. (167.64 cm); Pain 0/10; 16:42 Body Mass Index 30.67 (86.18 kg, 167.64 cm) 6 ED Course: 16:42 Patient arrived in ED. 6 16:42 Cara Muir, RN is Primary Nurse. 6 16:44 Tadeo Calles DO is Attending Physician. ms3 16:47 Triage completed. jh6 16:49 Arm band placed on left wrist. jh6 16:50 No provider procedures requiring assistance completed. 6 16:51 Bed in low position. Call light in reach. Side rails up X 1. 6 Administered Medications: No medications were administered Medication: 16:52 VIS not applicable for this client. [facility] Outcome: 16:55 Discharge ordered by . ms3 18:42 Patient left the ED. iw Signatures: Kajal Palacios, RN RN Tadeo Calles DO DO ny3 Cara Muir, RN RN [facility]
--- NOTE | 2022-04-22 18:42 | EDPHYS ---
Physician Documentation [facility] Name: Benji Villalpando Age: 66 yrs Sex: Male : 1955 Arrival Date: 04/22/2022 Time: 16:42 Bed 2 Private MD: ED Physician Tadeo Calles HPI: 04/22 16:58 This 66 yrs old Male presents to ER via EMS with complaints of hypoxia. ms3 16:58 [facility] states they were called for patient being hypoxic by patient's PT. On their ms3 arrival patient was sitting on a kinked oxygen tube. EMS states patient without hypoxia. Patient without complaints in the ED.. Onset: The symptoms/episode began/occurred just prior to arrival. Severity of symptoms: in the emergency department the symptoms have resolved. Historical: - PMHx: 16:51 Anemia; CHF; chronic kidney disease; Diabetes - NIDDM; Dialysis T-T-S; Hyperlipidemia; jh6 Hypertension; Hypothyroidism; Myocardial infarction; RENAL FAILURE; - PSHx: 16:51 fistula; heart bypass; pacemaker; 6 - Immunization history:: Adult Immunizations up to date. - Social history:: Smoking status: Patient denies any tobacco usage or history of. ROS: 16:58 Constitutional: Negative for fever, and chills. Neck: Negative for injury, pain, and ms3 swelling, Cardiovascular: Negative for chest pain, and palpitations. Respiratory: Negative for shortness of breath, cough, wheezing, and pleuritic chest pain, Abdomen/GI: Negative for abdominal pain, nausea, vomiting, diarrhea, and constipation, MS/Extremity: Negative for injury and deformity, Skin: Negative for injury, rash, and discoloration, Psych: Negative for depression, anxiety, suicide ideation, homicidal ideation, and hallucinations. 16:58 All other systems are negative. Exam: 16:58 Constitutional: This is a well developed, well nourished patient who is awake, alert, ms3 and in no acute distress. Head/Face: Normocephalic, atraumatic. Neck: Trachea midline, no cervical lymphadenopathy. Supple, full range of motion without nuchal rigidity, or vertebral point tenderness. No Meningismus. Chest/axilla: Normal chest wall appearance and motion. Nontender with no deformity. Cardiovascular: Regular rate and rhythm with a normal S1 and S2. No gallops, murmurs, or rubs. Normal PMI, no JVD. No pulse deficits. Respiratory: Lungs have equal breath sounds bilaterally, clear to auscultation and percussion. No rales, rhonchi or wheezes noted. No increased work of breathing, no retractions or nasal flaring. Abdomen/GI: Soft, non-tender, with normal bowel sounds. No distension or tympany. No guarding or rebound. No evidence of tenderness throughout. Skin: Warm, dry with normal turgor. Normal color with no rashes, no lesions, and no evidence of cellulitis. Psych: Awake, alert, with orientation to person, place and time. Behavior, mood, and affect are within normal limits. Vital Signs: 16:42 BP 109 / 60; Pulse 81; Resp 20; Temp 97.1(TE); Pulse Ox 100% on R/A; Weight 86.18 kg; [facility] Height 5 ft. 6 in. (167.64 cm); Pain 0/10; 16:42 Body Mass Index 30.67 (86.18 kg, 167.64 cm) [facility] MDM: 16:54 Patient medically screened. ms3 16:58 Data reviewed: vital signs, nurses notes, and as a result, I will discharge patient. ED ms3 course: Patient without complaints in the ED. Patient is 100% on room air. Patient to follow up with PMD in 2-3 days. Patient understands/ agrees with plan. All questions answered. Return precautions discussed to include worsening symptoms, or any other concerns. Patient in NAD, non-toxic appearing, speaking full sentences in the ED.. Administered Medications: No medications were administered Disposition Summary: 04/22/22 16:55 Discharge Ordered Location: Home ms3 Condition: Stable ms3 Diagnosis - Person with feared health complaint in whom no diagnosis is made ms3 - End stage renal disease ms3 Followup: ms3 - With: Private Physician - When: 2 - 3 days - Reason: Re-evaluation by your physician Forms: - Medication Reconciliation Form ms3 - Thank You Letter ms3 - Antibiotic Education ms3 - Prescription Opioid Use ms3 Signatures: Tadeo Calles DO DO ms3 Cara Muir RN RN 6 Corrections: (The following items were deleted from the chart) 20:23 20:21 [facility] states they were called for patient being hypoxic by patient's PT. On ms3 their arrival patient was sitting on a kinked oxygen tube. EMS states patient without hypoxia. Patient without complaints in the ED.. ms3 20: Onset: The symptoms/episode began/occurred just prior to arrival, ms3 ms3 20: Severity of symptoms: in the emergency department the symptoms have resolved ms3 ms3
[2022-04-22 18:58] VITALS: BP 109/60; TEMP 97.1; O2SAT 100
== END 2022-04-22 18:42 | disposition home or self-care (01) ==
LOC: ER 16:35
DX: Z71.1 Person with feared health complaint in whom no diagnosis is made (principal); E11.22 Type 2 diabetes mellitus with diabetic chronic kidney disease; I13.2 Hypertensive heart and chronic kidney disease with heart failure and with stage 5 chronic kidney disease, or end stage renal disease; I50.9 Heart failure, unspecified; N18.6 End stage renal disease; Z99.2 Dependence on renal dialysis; Z95.0 Presence of cardiac pacemaker
CPT/HCPCS: 99282

== ENCOUNTER 2022-04-30 14:19 | Emergency (ER) | payer OTHER ==
--- OUTSIDE RECORDS SUMMARY | 2022-04-30 14:30 | XMS REPORT | Continuity of Care Document ---
:1955 Author Organization [facility] t Address [address] [place] [address] Care Team Providers Name Role Phone COFFMAN ISABELLA NITIN Primary Care Physician Unavailable Hallie Coffman Attending Clinician Unavailable NACHO CANOTR Attending Clinician Unavailable MONICA SIMS Attending Clinician [...] Expiration Date Ganesh allred TEXINESPLUS HMO ALL [id number] 2019 00:00:00 WELLCARE MAPS [id number] 2019 00:00:00 HUMANA MEDICARE [id number] 2021 ADV 00:00:00 WELLARIEL [place] [id number] 2020 STAR PLUS 00:00:00 WELLCARE OF [place] - [id number] 2019 TEXANPLUS 00:00:00 (MEDICARE REPLACEMENT/ADVANT AGE - HMO) Problems This patient has no known problems. Allergies, Adverse Reactions, Alerts Allergy Allergy Status Severity Reaction(s) Onset Inactive Treating Comm ents Source Name Type Date Date Clinician No Known DA Active U 0 [facility] Clear s 00:00: Padron 00 [facility] No Known DA Active U 0 [facility] Allergie 5-16 Clear s 00:00: Padron 00 [facility] NO KNOWN Allergy Active [facility] ALLERGIE S NO KNOWN Drug Active [facility] ALLERGIE Class ity of S [facility] Medications Ordered Filled Start Stop Current Ordering Indication Dosage Frequency Signature Comments Components Source Medication Medication Date Date Medication? Clinician (SIG) Name Name Aspirin 81 Aspirin 81 Yes Isabella 1 tablet Common Coffman [facility] Clopidogrel Clopidogrel Yes Isabella 1 tablet Common Bisulfate Bisulfate Coffman Spir [facility] Basaglar Basaglar Yes Isabella inject 10 Common KwikPen KwikPen Coffman units [facility] Tradjenta Tradjenta Yes Isabella 1 tablet Common Coffman [facility] Senna Senna Yes Isabella 2 tablets Common Coffman at bedtime Spirit as needed [facility] Lantus Lantus Yes Isabella as Common SoloStar SoloStar Coffman directed Sp pee [facility] Aspirin Aspirin Yes Isabella TAKE 1 Commo n Coffman TABLET BY Spirit MOUTH - CHI EVERY DAY [facility] Atorvastati Atorvastati Yes Isabella TAKE 1 Common n Calcium n Calcium Coffman TABLET BY Spirit MOUTH AT - CHI BEDTIME [facility] Midodrine Midodrine Yes Isabella 1 tablet Common HCl HCl Coffman [facility] Lorazepam Lorazepam Yes Isabella 1 tablet Common Coffman as needed Spirit - CHI [facility] Synthroid Synthroid Yes Isabella 1 tablet Common Coffman on an Spirit empty - CHI stomach in [facility] Atorvastati Atorvastati Yes Isabella 1 tablet Common n Calcium n Calcium Coffman Spir it - CHI [facility] Vital Signs Vital Name Observation Time Observation [...] Date/Time Type Type Clinicians Facility Department ID 2022-04-30 Outpatient CoffmanLACHELLE hinkle [facility] [id number] Common 10:27:01 [facility] 2022-04-28 Outpatient CoffmanST arinLORE [facility] [id number] Common 16:26:00 [facility] 2022-04-13 Outpatient Coffman, STLMLC STLMLC [id number] Common 13:29:00 Isabella [facility] 2022-02-15 Outpatient Coffman, STLMLC STLMLC [id number] Common 13:14:00 Isabella [facility] 2022-02-10 Outpatient Coffman, STLMLC STLMLC [id number] Common 09:24:01 Isabella [facility] 2022-01-22 Outpatient Coffman, STLMLC STLMLC [id number] Common 10:07:00 Isabella [facility] 2021-12-02 Outpatient Coffman, STLMLC STLMLC [id number] Common 14:22:20 Isabella 26023 [facility] 2021-12-02 Outpatient Coffman, STLMLC STLMLC [id number] Common 13:47:46 Isabella 63121 [facility] 2021-12-02 Outpatient Coffman, STLMLC STLMLC [id number] Common 13:38:19 Isabella 94960 [facility] 2021-12-02 Outpatient Coffman, STLMLC STLMLC [id number] Common 13:27:09 Isabella 49960 [facility] 2021-12-02 Outpatient Coffman, STLMLC STLMLC [id number] Common 12:41:17 Isabella 35959 [facility] 2021-12-02 Outpatient Coffman, STLMLC STLMLC [id number] Common 12:35:51 Isabella 71771 [facility] 2021-12-02 Outpatient Coffman, STLMLC STLMLC [id number] Common 12:35:15 Isabella 06995 [facility] 2021-12-02 Outpatient Coffman, STLMLC STLMLC [id number] Common 12:07:23 Isabella 60201 [facility] 2021-12-02 Outpatient Coffman, STLMLC STLMLC [id number] Common 11:39:10 Isabella 28862 [facility] 2021-12-02 Outpatient Coffman, STLMLC STLMLC [id number] Common 11:20:23 Isabella 23609 [facility] 2021-12-02 Outpatient Coffman, STLMLC STLMLC [id number] Common 11:18:51 Isabella 21418 [facility] 2021-12-02 Outpatient Coffman, STLMLC STLMLC [id number] Common 11:16:22 Isabella 86381 [facility] 2021-12-02 Outpatient Coffman, STLMLC STLMLC [id number] Common 11:05:05 Isabella 30619 [facility] 2020-11-14 Inpatient ER KALDIS, SLEH Gastro [id number] [facility] 21:46:00 ARBEN 2019-05-04 [id number] 17:34:38 2022-04-28 2022-04-28 ambulatory STLMLC STLMLC [id number] Common 00:00:00 00:00:00 [facility] 2022-04-22 2022-04-22 ambulatory STLMLC STLMLC [id number] Common 00:00:00 00:00:00 [facility] 2022-02-24 2022-02-24 ambulatory STLMLC STLMLC [id number] Common 00:00:00 00:00:00 [facility] 2022-02-09 2022-02-09 ambulatory STLMLC STLMLC [id number] Common 00:00:00 00:00:00 [facility] 2022-01-22 2022-01-22 ambulatory STLMLC STLMLC [id number] Common 00:00:00 00:00:00 [facility] 2022-01-18 2022-01-18 ambulatory STLMLC STLMLC [id number] Common 00:00:00 00:00:00 [facility] 2022-01-18 2022-01-18 ambulatory STLMLC STLMLC [id number] Common 00:00:00 00:00:00 [facility] 2021-12-28 2021-12-28 Outpatient EL SLE SLEH [id number] [facility]H 00:00:00 00:00:00 2021-12-22 2021-12-22 ambulatory STLMLC STLMLC [id number] Common 00:00:00 00:00:00 [facility] 2021-11-27 2021-11-27 Outpatient EL SLE SLEH [id number] SLEH 00:00:00 00:00:00 2021-10-26 2021-10-26 ambulatory STLMLC STLMLC [id number] Common 00:00:00 00:00:00 [facility] 2021-10-14 2021-10-14 ambulatory STLMLC STLMLC [id number] Common 00:00:00 00:00:00 [facility] 2021-10-12 2021-10-12 Outpatient EL DALLIN, SLE SLEH [id number] [facility] 00:00:00 23:59:00 HUMERA 2021-10-12 2021-10-12 Emergency ER [facility] Emergency [id number] SLEH 09:11:00 16:00:00 YANIRA 2021-10-08 2021-10-08 ambulatory STLMLC STLMLC [id number] Common 00:00:00 00:00:00 [facility] 2021-10-05 2021-10-05 ambulatory STLMLC STLMLC [id number] Common 00:00:00 00:00:00 [facility] 2021-09-30 2021-09-30 ambulatory STLMLC STLMLC [id number] Common 00:00:00 00:00:00 [facility] 2021-08-11 2021-08-11 Outpatient STLMLC STLMLC [id number] Common 00:00:00 00:00:00 [facility] 2021-08-03 2021-08-03 Outpatient BC BC [id number] [facility] 00:00:00 23:59:00 Martha 2021-08-03 2021-08-03 Emergency ER [facility] Emergency [id number] SLEH 11:01:00 11:01:00 2021-07-29 2021-07-29 Outpatient STLMLC STLMLC [id number] Common 00:00:00 00:00:00 [facility] 2021-07-23 2021-07-23 Outpatient EL SLE SLE [id number] SLEH 00:00:00 00:00:00 2021-07-23 2021-07-23 Outpatient STLMLC STLMLC [id number] Common 00:00:00 00:00:00 [facility] 2021-07-14 2021-07-14 Outpatient STLMLC STLMLC [id number] Common 00:00:00 00:00:00 [facility] 2021-07-08 2021-07-08 Outpatient STLMLC STLMLC [id number] Common 00:00:00 00:00:00 [facility] 2021-07-08 2021-07-08 Outpatient STLMLC STLMLC [id number] Common 00:00:00 00:00:00 [facility] 2021-06-26 2021-06-26 Outpatient EL SABEROLA, SLSL SLSL [id number] SLSL 00:00:00 00:00:00 HUMERA 2021-06-26 2021-06-26 Outpatient SABEROLA, SLSL SLSL [id number] SLSL 00:00:00 00:00:00 HUMERA 2021-06-26 2021-06-26 Outpatient EL SLSL SLSL [id number] SLSL 00:00:00 00:00:00 2021-06-22 2021-06-22 Outpatient STLMLC STLMLC [id number] Common 00:00:00 00:00:00 [facility] 2021-06-22 2021-06-22 Outpatient STLMLC STLMLC [id number] Common 00:00:00 00:00:00 [facility] 2021-06-22 2021-06-22 Outpatient STLMLC STLMLC [id number] Common 00:00:00 00:00:00 [facility] 2021-06-19 2021-06-19 Outpatient EL SLEH SLEH [id number] SLEH 00:00:00 00:00:00 2021-06-19 2021-06-19 Outpatient STLMLC STLMLC [id number] Common 00:00:00 00:00:00 [facility] 2021-06-05 2021-06-05 Outpatient EL SLEH SLEH [id number] SLEH 00:00:00 00:00:00 2021-05-25 2021-05-25 Emergency ER SLE Emergency [id number] SLEH 15:33:00 15:33:00 2021-05-25 2021-05-25 Outpatient STLMLC STLMLC [id number] Common 00:00:00 00:00:00 [facility] 2021-05-22 2021-05-22 Outpatient STLMLC STLMLC [id number] Common 00:00:00 00:00:00 [facility] 2021-05-21 2021-05-21 Outpatient STLMLC STLMLC [id number] Common 00:00:00 00:00:00 [facility] 2021-04-09 2021-04-09 Outpatient STLMLC STLMLC [id number] Common 00:00:00 00:00:00 [facility] 2021-01-21 2021-01-21 Outpatient STLMLC STLMLC [id number] Common 00:00:00 00:00:00 [facility] 2021-01-07 2021-01-07 Outpatient STLMLC STLMLC [id number] Common 00:00:00 00:00:00 [facility] 2020-12-30 2020-12-30 Outpatient EL SLEH SLEH [id number] [facility]H 00:00:00 00:00:00 2020-12-26 2020-12-26 Outpatient EL SLEH SLEH [id number] SLEH 00:00:00 00:00:00 2020-12-19 2020-12-19 Inpatient Espinoza Villagran [facility] [id number] [facility] 13:00:00 09:41:[address] [place] [address] 2020-12-18 2020-12-18 Outpatient EL SLEH SLEH [id number] SLEH 00:00:00 00:00:00 2020-11-10 2020-11-10 Outpatient STLMLC STLMLC [id number] Common 00:00:00 00:00:00 [facility] 2020-10-08 2020-10-08 Outpatient STLMLC STLMLC [id number] Common 00:00:00 00:00:00 [facility] 2020-08-15 2020-08-15 Outpatient STLMLC STLMLC [id number] Common 00:00:00 00:00:00 [facility] 2020-06-25 2020-06-25 [facility] [id number] Common 15:00:00 15:00:[address] [facility] 2020-06-25 2020-06-25 [facility] [id number] Common 15:00:00 15:00:[address] [facility] 2020-06-18 2020-06-23 Inpatient Espinoza Villagran [facility] [id number] [facility] 08:30:00 05:46:43 [facility] 2020-03-12 2020-03-12 [facility] [id number] Common 13:45:00 13:45:[address] [facility] 2020-02-12 2020-02-12 Outpatient Melodie WALL [facility] [id number] 09:00:00 09:00:00 CIERRA [place] [facility] 2019-12-26 2019-12-26 Outpatient Jony-Mbayo VFP VFP [id number] [facility] 07:15:00 07:15:00 _A_AH [id number] [facility] Practic e 2019-12-26 2019-12-26 Outpatient Jony-Mbayo VFP VFP [id number] [facility] 07:15:00 07:15:00 _A_AH [id number] Family Practic e 2019-12-10 2019-12-10 Out[facility] [id number] Common 13:30:00 13:30:[address] [facility] 2019-09-26 2019-09-26 Out[facility] [id number] Common 08:23:00 08:23:[address] [facility] 2019-09-20 2019-09-20 Out[facility] [id number] Common 16:58:00 16:58:[address] [facility] 2019-08-10 2019-08-10 Outpatient [facility] [id number] Common 09:15:00 09:15:[address] [facility] 2019-07-11 2019-07-11 Out[facility] [id number] Common 16:55:00 16:55:[address] [facility] 2019-07-11 2019-07-11 Out[facility] [id number] Common 10:15:00 10:15:[address] [facility] 2019-07-06 2019-07-06 Out[facility] [id number] Common 16:41:00 16:41:[address] [facility] 2019-05-04 2019-05-04 [facility] [id number] 09:00:00 13:49:28 2019-05-04 2019-05-04 [id number] [facility] 12:18:00 10:21:00 2019-05-04 2019-05-04 Appointmen LAQUITA HUSAIN [facility] [id number] [place] 09:00:00 09:00:00 tKamron MAE cic & Physic i Tasneem HUSAIN. Vascular ans Yvonne MAE - [facility] 2019-04-20 2019-04-20 Out[facility] [id number] Common 09:30:00 09:30:[address] [facility] 2019-02-27 2019-02-27 Out[facility] [id number] Common 10:00:00 10:00:[address] [place] [facility] 2019-01-24 2019-01-24 Out[facility] [id number] Common 10:45:00 10:45:[address] [place] [facility] 2019-01-10 2019-01-10 Out[facility] [id number] Common 07:54:00 07:54:[address] [place] [facility] 2018-11-15 2018-11-15 Out[facility] [id number] Common 10:00:00 10:00:[address] [place] [facility] 2018-10-12 2018-10-12 Out[facility] [id number] Common 15:00:00 15:00:00 t Specialty/U Sp pee Specialty rology - [facility] /Urology Clinic [facility] 2018-05-08 2018-05-08 [facility] [id number] Common 08:20:00 08:20:[address] [place] [facility] 2018-05-01 2018-05-01 Out[facility] [id number] Common 08:46:00 08:46:[address] [place] [facility] 2018-04-27 2018-04-27 Out[facility] [id number] Common 09:00:00 09:00:[address] [place] [facility] 2018-04-20 2018-04-20 Out[facility] [id number] Common 13:36:00 13:36:[address] [facility] 2018-04-12 2018-04-12 Outpatient [facility] [id number] Common 16:11:00 16:11:[address] [facility] 2018-04-10 2018-04-10 Out[facility] [id number] Common 14:45:00 14:45:[address] Sp[address] [facility] Results Test Description Test Time Test Comments Results Result Comments Source POCT-GLUCOSE METER 2022-02-18 06:28:54 Test Item Value Reference Range Interpretation Comme nts POC-GLUCOSE METER (BEAKER) 105 mg/dL 70-110 : TESTED AT [facility] [address] [facility] (test code = 1538) [facility] [address]: Warehouse Lead/Techni elsie ID = [id number] for Surgers-Jeffrey Barber BASIC METABOLIC [id number] 05:12:43 Test Item Value Reference Range Interpretation [...] S NOT APPLICABLE FOR DIALYSIS PATIEN TS. Warehouse Lead ID - [id number] 20:38:00 Test Item Value Reference Range Interpretation Comments POC-GLUCOSE METER 104 mg/dL 70-110 : TESTED A T [facility] 10051 (BEAKER) (test code [facility], = 1538) [facility] 77 384: Warehouse Lead/Techni elsie ID = [id number] for Henrique-Jeffrey Barrios U/S, ABDOMINAL, [id number] 14:11:00DR STRIBLINGAbdomen limited area? Add comment if clarification is needed.->Abdomen Fluid CheckReason for exam:->[facility]ENTER[facility]: [facility] : 1955 Sex: MFINAL REPORT Abdominal ultrasound, limited. History: Evaluate for ascites. Comparison: None available. Discussion: Transverse and longitudinal images of the 4 quadrants of the abdomen were obtained demonstrating a mild amount of free fluid throughout. IMPRESSION: Mild ascites. Signed: Scott Alcazar Verified Date/Time: 02/17/2022 14:11:58 Reading Location: [facility] Radiology Reading Room POCT-GLUCOSE [id number] 11:47:49 Test Item Value Reference Range Interpretation Comments POC-GLUCOSE METER 100 mg/dL 70-110 : TESTED A T [facility] [address] (BEAKER) (test code [facility], = 1538) [place] [address] 384: Warehouse Lead/Techni elsie ID = [id number] for Clifton trotteron Lila POCT-GLUCOSE [id number] 06:57:59 Test Item Value Reference Range Interpretation Comments POC-GLUCOSE METER 104 mg/dL 70-110 : TESTED A T [facility] 201[address] (BEAKER) (test code [facility], = 1538) [place] [address] 384: Warehouse Lead/Techni elsie ID = [id number] for Karli Coon BASIC METABOLIC [id number] 04:42:18 Test Item Value Reference Range Interpretation [...] S NOT APPLICABLE FOR DIALYSIS PATIEN TS. Warehouse Lead ID - [id number] 01:28:53 Test Item Value Reference Range Interpretation Comments POC-GLUCOSE METER 111 mg/dL 70-110 H : TESTED A T [facility] 10722 (BEAKER) (test code [facility], = 1538) [place] [address] 384: Warehouse Lead/Techni elsie ID = [id number] for Candi Patel POCT-GLUCOSE [id number] 21:49:02 Test Item Value Reference Range Interpretation Comments POC-GLUCOSE METER 82 mg/dL 70-110 : TESTED A T [facility] 776[address] (BEAKER) (test code = [facility], 1538) [place] [address] 384: Warehouse Lead/Techni elsie ID = [id number] for Karli Coon RAD, CHEST, 1 VIEW, NON [id number] 15:02:00DR Jc for exam:- >sobShould this be performed at the bedside?->Yes [facility] : 1955 Sex: MFINAL REPORT [...] Alcazar Verified Date/Time: 02/16/2022 15:02:28 Reading Location: [facility] HEMOGLOBIN [id number] 14:52:52 Test Item Value Reference Range Interpretation Comments HEMOGLOBIN A1C ([employer]) (test code = 5.6 % 4.3-6.1 368) Warehouse Lead ID - VATPOCT-GLUCOSE [id number] 12:57:55 Test Item Value Reference Range Interpretation Comments POC-GLUCOSE METER 114 mg/dL 70-110 H : TESTED A T [facility] [address]331 ([employer]) (test code [facility], = 1538) [place] [address] 384: Warehouse Lead/Techni elsie ID = [id number] for Reinaldo Paul HEPATITIS B SURFACE [id number] 07:41:02 Test Item Value Reference Range Interpretation Comments HEPATITIS B SURFACE ANTIBODY 339.9 mIU/mL <8.0 H (BEAKER) (test code = 647) Warehouse Lead ID - BSPOCT-GLUCOSE [id number] 06:03:43 Test Item Value Reference Range Interpretation Comments POC-GLUCOSE METER 101 mg/dL 70-110 : [place] [address] ([employer]) (test code [facility], = 1538) [place] [address] 384: Warehouse Lead/Techni elsie ID = [id number] for Jossy Adorno HEPATITIS B SURFACE [id number] 05:11:46 Test Item Value Reference Range Interpretation Comments HEPATITIS B SURFACE ANTIGEN (2) Nonreactive Nonreactive (BEAKER) (test code = 2585) Warehouse Lead ID - [id number] 02:52:45 Test Item Value Reference Range Interpretation Comments POC-GLUCOSE METER 95 mg/dL 70-110 : TESTED A T [facility] [address]4800 (BEAKER) (test code = [facility], 1538) [place] [address] 384: Warehouse Lead/Techni elsie ID = [id number] for Jossy Adorno POCT-GLUCOSE [id number] 21:08:00 Test Item Value Reference Range Interpretation Comments POC-GLUCOSE METER 89 mg/dL 70-110 : TESTED A T [facility] 57072 (BEAKER) (test code = [facility], 1538) [place] [address] 384: Warehouse Lead/Techni elsie ID = [id number] for Jossy Adorno COMPREHENSIVE METABOLIC [id number] 18:54:53 Test Item Value Reference Range Interpretation [...] S NOT APPLICABLE FOR DIALYSIS PATIEN TS. Warehouse Lead ID - [id number] W/PLT COUNT & AUTO [id number] 18:13:18 Test Item Value Reference Range Interpretation [...] PERCENT (BEAKER) (test code = 2801) POCT-GLUCOSE [id number] 17:56:32 Test Item Value Reference Range Interpretation Comments POC-GLUCOSE METER 90 mg/dL 70-110 : TESTED A T [facility] [address]78[address] (BEAKER) (test code = [facility], 1538) [place] [address] 384: Warehouse Lead/Techni elsie ID = [id number] for N [place], [place] POCT-GLUCOSE [id number] 17:20:59 Test Item Value Reference Range Interpretation Comments POC-GLUCOSE METER 54 mg/dL 70-110 L : TESTED A T [facility] [address]28[address] (BEAKER) (test code = [facility], 1538) [place] [address] 384: Warehouse Lead/Techni elsie ID = [id number] for N [place], [place] BODY FLUID CULTURE + GRAM [id number] 10:11:18 Test Item Value Reference Range Interpretation Comments CULTURE (BEAKER) (test code = 1095) No growth U/S, [id number] 08:12:00DR STRIBLINGLabs to be ordered:->Body Fluid Culture (w/Gram Stain, C\T\S)Labs to be ordered:->Cell CountReason for exam:->abdominal distension [facility]OY FORTE : 1955 Sex: MFINAL REPORT Ultrasound guided paracentesis. Clinical History: Ascites. Sedation: None. Truck Headlight Assembler: Char Van PA-C Dried Yeast Supervisor: None. Estimated Blood Loss: < 1 cc. [...] was achieved with 2% lidocaine, a 5 Beninese one-step catheter was advanced into the peritoneal cavity under ultrasoundguidance. After completion of drainage, the catheter was removed. There was no evidence of complication. Impression:Successful ultrasound guided paracentesis. Signed: Raymond Coffman MDReport Verified Date/Time: 10/13/2021 08:12:56 Reading Location: [address] Ultrasound Reading Room BODY FLUID CELL [...] (BEAKER) (test code = 2873) COMPREHENSIVE METABOLIC [id number] 10:23:58 Test Item Value Reference Range Interpretation [...] S NOT APPLICABLE FOR DIALYSIS PATIEN TS. Warehouse Lead ID - JORDAN MB-TYPE NATRIURETIC FACTOR (BNP)2021-10-12 10:12:10 Test Item Value Reference Range Interpretation Comments B-TYPE NATRIURETIC PEPTIDE 4245 pg/mL 0-100 H (BEAKER) (test code = 700) Warehouse Lead ID - JORDAN [id number] 10:01:45 Test Item Value Reference Range Interpretation [...] = 2801) BODY FLUID CULTURE + GRAM [id number] 14:14:13 Test Item Value Reference Range Interpretation Comments CULTURE (BEAKER) (test code No growth = 1095) GRAM STAIN RESULT (BEAKER) <1+ WBCs (test code = 1123) GRAM STAIN RESULT (BEAKER) No organisms seen (test code = 35132) POCT-GLUCOSE [id number] 12:15:12 Test Item Value Reference Range Interpretation Comments POC-GLUCOSE METER 165 mg/dL 70-110 H : TESTED A T [facility] 6720 (BEAKER) (test code = [facility], 1538) [address]: Warehouse Lead/Techni elsie ID = [id number] for ROBYN YANCEY BASIC METABOLIC [id number] 08:52:50 Test Item Value Reference Range Interpretation [...] S NOT APPLICABLE FOR DIALYSIS PATIEN TS. Warehouse Lead ID - [id number] 08:49:00 Test Item Value Reference Range Interpretation Comments MAGNESIUM (BEAKER) (test code = 2.1 mg/dL 1.6-2.6 627) Warehouse Lead ID - ADMINPOCT-GLUCOSE [id number] 07:57:04 Test Item Value Reference Range Interpretation Comments POC-GLUCOSE METER 178 mg/dL 70-110 H : TESTED A T [facility] 6720 (BEAKER) (test code = [facility], 1538) 13300: Warehouse Lead/Techni elsie ID = [id number] for ROBYN YANCEY CBC W/PLT COUNT & AUTO [id number] 06:39:06 Test Item Value Reference Range Interpretation [...] PERCENT (BEAKER) (test code = 2801) POCT-GLUCOSE [id number] 22:12:47 Test Item Value Reference Range Interpretation Comments POC-GLUCOSE METER 157 mg/dL 70-110 H : TESTED A T [facility] 6720 (BEAKER) (test code = [facility], 1538) 84633: Warehouse Lead/Techni elsie ID = [id number] for Pawel Reynolds POCT-GLUCOSE [id number] 17:45:52 Test Item Value Reference Range Interpretation Comments POC-GLUCOSE METER 159 mg/dL 70-110 H : TESTED A T [facility] 6720 (BEAKER) (test code = [facility], 1538) 08558: Warehouse Lead/Techni elsie ID = [id number] for Erma Kingston [id number] 13:58:31Medical Cytology Report Case: [id number] Authorizing Provider: Mauricio Perry, Collected: 08/03/2021 02:35 PM Ordering Location: [facility] Emergency Department Received: 08/04/2021 09:29 AM Pathologist: Genevieve Mendez MD Specimen: Perit cabezas Fluid PERITONEAL FLUID (CYTOSPINS): - NEGATIVE FOR MALIGNANCY Signing Pathologist Direct Phone Line: [phone] signed by Genevieve Mendez MD on 08/04/2021 at 1:58 [id number], history of cirrhosis and ESRD.PERITONEAL FLUIDReceived 1600 mls brown fluid; prepared 4 cytospins. Performed. [facility], Department of Pathology, [address] [place] [address], [facility], [facility] of [facility], [address] [place] [address], [facility], Department of Path[facility], [address] [place] [address], XUNI-GLUCOSE [id number] 12:51:45 Test Item Value Reference Range Interpretation Comments POC-GLUCOSE METER 110 mg/dL 70-110 : TESTED A T [facility] 6720 (BEAKER) (test code = [place], 1538) 688[address]: Warehouse Lead/Techni elsie ID = [id number] for Erma Kingston LACTATE DEHYDROGENASE (LDH), BODY [id number] 09:48:21 Test Item Value Reference Range Interpretation Comments LACTATE DEHYDROGENASE FLUID (BEAKER) 141 U/L (test code = 634) Absence of reference range indicates that normals have not been defined.Assay performance has not been validated for this type of specimen.Warehouse Lead ID - ANTONIOENSONPROTEIN, BODY [id number] 09:44:56 Test Item Value Reference Range Interpretation Comments PROTEIN FLUID (BEAKER) (test code = 3.9 g/dL 579) Absence of reference range indicates that normals have not been defined.Assay performance has not been validated for this type of specimen.Warehouse Lead ID - ANTONIOENSONBASIC METABOLIC [id number] 06:39:38 Test Item Value Reference Range Interpretation [...] S NOT APPLICABLE FOR DIALYSIS PATIEN TS. Warehouse Lead ID - JORDAN [id number] 06:39:14 Test Item Value Reference Range Interpretation Comments MAGNESIUM (BEAKER) (test code = 2.0 mg/dL 1.6-2.6 627) Warehouse Lead ID - JORDAN MCBC W/PLT COUNT & AUTO [id number] 06:11:35 Test Item Value Reference Range Interpretation [...] PERCENT (BEAKER) (test code = 2801) POCT-GLUCOSE [id number] 22:05:32 Test Item Value Reference Range Interpretation Comments POC-GLUCOSE METER 137 mg/dL 70-110 H : TESTED A T [facility] 6720 (BEAKER) (test code = [place], 1538) 33965: Warehouse Lead/Techni elsie ID = [id number] for GINA SALAZAR HEPATITIS B SURFACE [id number] 21:43:34 Test Item Value Reference Range Interpretation Comments HEPATITIS B SURFACE ANTIGEN (2) Nonreactive Nonreactive (BEAKER) (test code = 2585) Specimen is considered negative for HBsAg.BODY FLUID CELL COUNT WITH [id number] 18:09:33 Test Item Value Reference Range Interpretation [...] FLUID 3 % (BEAKER) (test code = 4146) LYMPHS FLUID 41 % (BEAKER) (test code = 488) MONO/MACROPHAGE 56 % FLUID (BEAKER) (test code = 489) EOSINOPHILS FLUID 0 % (BEAKER) (test code = 491) BASO FLUID (BEAKER) 0 % (test code = 492) CONTAINER BODY EDTA Tube FLUID (BEAKER) (test code = 2873) POCT-GLUCOSE [id number] 17:22:05 Test Item Value Reference Range Interpretation Comments POC-GLUCOSE METER 117 mg/dL 70-110 H : TESTED Lashell Ureña [facility] 6720 (BEAKER) (test code = [facility] [place], 1538) 19144: Warehouse Lead/Techni elsie ID = [id number] for Erma Kingston U/S, [id number] 17:04:00DR STRIBLINGLabs to be ordered:->Body Fluid Culture (w/Gram Stain, C\T\S)Labs to be ordered:->CytologyLabs to be ordered:->Glucose+LDH+ProteinLabs to be ordered:->Cell CountReason for exam:->CHEST PAINReason for exam:->[facility] : 1955 Sex: MFINAL REPORT Ultrasound guided paracentesis Clinical History: Ascites. Sedation: None. Truck Headlight Assembler: Klaudia Garcia PA-C Supervising Physician: Brady Self MD Dried Yeast Supervisor: None. Estimated Blood Loss: < 1 mL. [...] anesthesia was achieved with lidocaine, a 5 Beninese one-step catheter was advanced intothe peritoneal cavity under ultrasound guidance. After completion of drainage, the catheter was removed. There was no evidence of complication. Impression:Successful ultrasound guided paracentesis. Signed: Brady Self MDReport Verified Date/Time: 08/03/2021 17:04:47 Reading Location: [facility] B1 P006J Ultrasound Reading Room SARS-COV2/RT-PCR ([facility])2021-08-03 14:42:37 Test Item Value Reference Range Interpretation Comments SARS-COV2/RT-PCR Negative Negative The SARS-Co V-2 target (test code = nucleic acids a re not 2711381) detected in thi s specimen. Negative result [...] revoked sooner. Fact Sheet for Healthcare Providers: https://www.[employer].com/Documents/Xpert%20Xpress%20SARS%20CoV-2/Fact%20Sheets/302-3802%20SARS-COV -2%20HEALTHCARE%20PROVIDERS%20FACT%20SHEET.pdf Fact Sheet for Healthcare Patients: https://www.[employer]/Documents/Xpert %20Xpress%20SARS%20CoV-2/Fact%20Sheets/302-3801%75RONM-OQD-4%20PATIENT%20FACT%20 SHEET.pdfB-TYPE NATRIURETIC FACTOR (BNP)2021-08-03 12:54:07 Test Item Value Reference Range Interpretation Comments B-TYPE NATRIURETIC PEPTIDE 85262 pg/mL 0-100 H (BEAKER) (test code = 700) Warehouse Lead ID - JOHAN FOperator ID - JOHAN FHIGH SENSITIVITY TROPONIN I 2021-08-03 12:37:33 Test Item Value Reference Range Interpretation Comments HIGH SENSITIVITY 43 pg/ml See_Comment H [Automated message] TROPONIN I (test code = The system which 8961719) generated this result transmitted ref erence range: <=35. Th e reference range was not used to int erpret this result as normal/abnormal . Warehouse Lead ID - JOHAN FThe PATTERN SCRATCHER STAT High Sensitivity Troponin-I results should be used in conjunction with other diagnostic information such as ECG, clinical observations and information, and patient symptoms to aid in the diagnosis of NE.COMPREHENSIVE METABOLIC [id number] 12:32:18 Test Item Value Reference Range Interpretation [...] S NOT APPLICABLE FOR DIALYSIS PATIEN TS. Warehouse Lead ID - JOHAN [id number] 12:30:52 Test Item Value Reference Range Interpretation Comments PHOSPHORUS (BEAKER) (test code = 2.6 mg/dL 2.3-4.7 604) Warehouse Lead ID - JOHAN [id number] 12:30:51 Test Item Value Reference Range Interpretation Comments MAGNESIUM (BEAKER) (test code = 2.1 mg/dL 1.6-2.6 627) Warehouse Lead ID - JOHAN FPROTHROMBIN TIME/[id number] 12:14:02 Test Item Value Reference Range Interpretation Comments PROTIME (BEAKER) 14.5 seconds 11.9-14.2 H (test code = 759) INR (BEAKER) (test 1.15 See_Comment [Automat ed message] code = 370) The system [employer] generated this result transmitted ref erence range: [...] = 2801) RAD, CHEST, 1 VIEW, NON [id number] 11:47:00DR STRIBLINGReason for exam:- >CHEST PAINReason for exam:->EDEMAShould this be performed at the bedside?->YesCHI [facility]ame: [facility]OY FOR[facility] : 1955 Sex: MFINAL REPORT RAD, CHEST, 1 VIEW, NON DEPT INDICATION: CHEST PAINEDEMA COMPARISON: Prior day's exam FINDINGS: Portable frontal view of the chest. IMPRESSION: Support Lines: Pacer device and sternotomy wires. Lungs and pleura: Bilateral effusions and adjacent atelectasis Nosignificant pneumothorax. Heart and mediastinum: Stable contours. Additional findings: None. Signed: Arlet Sr Verified Date/Time: 08/03/2021 11:47:09 Reading Location: [facility] Radiology Reading Room ALPHA FETOPROTEIN (AFP), TUMOR [id number] 13:27:00 Test Item Value Reference Range Interpretation Comments ALPHA-FETOPROTEIN (BEAKER) (test code < ng/mL <10.0 = 1094) Warehouse Lead ID - PATRICIA [facility] METABOLIC [id number] 13:06:00 Test Item Value Reference Range Interpretation [...] S NOT APPLICABLE FOR DIALYSIS PATIEN TS. Warehouse Lead ID - PATRICIA CHEPATIC FUNCTION [id number] 13:05:00 Test Item Value Reference Range Interpretation [...] (test code = 9 U/L 6-55 347) Warehouse Lead ID - PATRICIA CPROTHROMBIN TIME/[id number] 12:40:00 Test Item Value Reference Range Interpretation Comments PROTIME (BEAKER) 13.9 seconds 11.9-14.2 (test code = 759) INR (BEAKER) (test 1.09 See_Comment [Automat ed message] code = 370) The system [employer] generated this result transmitted ref erence range: [...] = 2801) BODY FLUID CULTURE + GRAM [id number] 13:49:00 Test Item Value Reference Range Interpretation Comments CULTURE (BEAKER) (test No growth code = 1095) GRAM STAIN RESULT <1+ White blood cells (BEAKER) (test code = seen 1123) GRAM STAIN RESULT No organisms seen (BEAKER) (test code = 150790) [id number] 18:55:00Medical Cytology Report Case: [id number] Authorizing Provider: Wicho Garcia MD Collected: 06/03/2021 05:57 PM Ordering Location: [place] [address] Dialysis Received: 06/04/2021 10:06 AM Nephrology Service Pathologist: Silvestre Le MD Specimen: Pleural, Right PLEURAL, RIGHT, FLUID (CYTOSPINS): - NEGATIVE FOR MALIGNANCY Signing Pathologist Direct Phone Line: [phone] signed by Silvestre Le MD on 06/05/2021 at 6:55 [id number] pleural effusion; PMH of HTN, HLD, CAD s/p [facility]B at [facility] on 05/18/2019, HFrEF 2/2 ICM with EF 25% s/p ICD, ESRD on iHD, cirrhosis, who presents with dyspnea, worsening BLE edema and genital painPLEURAL, RIGHT, FLUIDReceived 1000 ml bloody fluid; prepared 4 cytospinsPerformed. [facility],Department of Pathology, [address] [place] [address], [facility], Department of Pathology, [address] [place] [address], [facility], Department of Pathology, [address] [place] [address], LQOK-GLUCOSE [id number] 13:22:00 Test Item Value Reference Range Interpretation Comments POC-GLUCOSE METER 138 mg/dL 70-110 H : TESTED A T [place] [id number] (CONRAD) (test code = [facility], 1538) 36[address]: Warehouse Lead/Techni elsie ID = [id number] for EDE GASPAR U/S, [id number] 13:01:00DR STRIBLINGLaterality?->RightReason for exam:->moderate to large pleural effusionLabs to be Ordered:->Body Fluid Culture (w/Gram Stain, C\T\S)Labs to be Ordered:->CytologyLabs to be Ordered :->Cell CountLabs to be Ordered:->Glucose+LDH+Protein [facility] TROY FORTE : 1955 Sex: MFINAL REPORT Exam: Ultrasound guided thoracentesis Clinical History: Right-sided Pleural Effusion Truck Headlight Assembler: Michelle Wilson PA-C Supervising Physician: Jose Guadalupe [...] condition. Impression: Ultrasound guided right-sided thoracentesis. Signed: Jose, Jose Guadalupe MDReport Verified Date/Time: 06/05/2021 13:01:06 Reading Location: [place] [address]J Ultrasound Reading Room POCT-GLUCOSE [id number] 08:36:00 Test Item Value Reference Range Interpretation Comments POC-GLUCOSE METER 219 mg/dL 70-110 H : TESTED A T [facility] 6720 (BEAKER) (test code = [place], 1538) 96[address]: Warehouse Lead/Techni elsie ID = [id number] for EDE GASPAR BASIC METABOLIC [id number] 04:46:00 Test Item Value Reference Range Interpretation [...] S NOT APPLICABLE FOR DIALYSIS PATIEN TS. Warehouse Lead ID - PIROSS [id number] 04:45:00 Test Item Value Reference Range Interpretation Comments MAGNESIUM (BEAKER) (test code = 2.1 mg/dL 1.6-2.6 627) Warehouse Lead ID - PIROSS [id number] 04:45:00 Test Item Value Reference Range Interpretation Comments PHOSPHORUS (BEAKER) (test code = 2.9 mg/dL 2.3-4.7 604) Warehouse Lead ID - PIROSS LCBC W/PLT COUNT & AUTO [id number] 04:21:00 Test Item Value Reference Range Interpretation [...] PERCENT (BEAKER) (test code = 2801) POCT-GLUCOSE [id number] 22:21:00 Test Item Value Reference Range Interpretation Comments POC-GLUCOSE METER 242 mg/dL 70-110 H : TESTED A T [facility] 6720 (BEAKER) (test code = [facility], 1538) 10690: Warehouse Lead/Techni elsie ID = [id number] for Pee Solorio POCT-GLUCOSE [id number] 12:26:00 Test Item Value Reference Range Interpretation Comments POC-GLUCOSE METER 181 mg/dL 70-110 H : TESTED A T [facility] 6720 (BEAKER) (test code = [facility], 1538) 91444: Warehouse Lead/Techni elsie ID = [id number] for IB RAHIM, SERKALEM LACTATE DEHYDROGENASE (LDH), BODY [id number] 10:04:00 Test Item Value Reference Range Interpretation Comments LACTATE DEHYDROGENASE FLUID (BEAKER) 117 U/L (test code = 634) Absence of reference range indicates that normals have not been defined.Assay performance has not been validated for this type of specimen.Warehouse Lead ID - [id number], BODY [id number] 10:01:00 Test Item Value Reference Range Interpretation Comments PROTEIN FLUID (BEAKER) (test code = 3.2 g/dL 579) Absence of reference range indicates that normals have not been defined.Assay performance has not been validated for this type of specimen.Warehouse Lead ID - [id number] [id number] 08:30:00 Test Item Value Reference Range Interpretation Comments POC-GLUCOSE METER 144 mg/dL 70-110 H : TESTED A T [facility] 6720 (BEAKER) (test code = [facility], 1538) 10092: Warehouse Lead/Techni elsie ID = [id number] for IB RAHIM, SERKALEM BASIC METABOLIC [id number] 05:13:00 Test Item Value Reference Range Interpretation [...] S NOT APPLICABLE FOR DIALYSIS PATIEN TS. Warehouse Lead ID - [id number] 05:10:00 Test Item Value Reference Range Interpretation Comments MAGNESIUM (BEAKER) (test code = 2.1 mg/dL 1.6-2.6 627) Warehouse Lead ID - [id number] 05:10:00 Test Item Value Reference Range Interpretation Comments PHOSPHORUS (BEAKER) (test code = 5.3 mg/dL 2.3-4.7 H 604) Warehouse Lead ID - BSCBC W/PLT COUNT & AUTO [id number] 04:43:00 Test Item Value Reference Range Interpretation [...] = 2801) BODY FLUID CELL COUNT WITH [id number] 21:44:00 Test Item Value Reference Range Interpretation Comments APPEARANCE FLUID Slightly Bloody Clear A (BEAKER) (test code = 510) COLOR FLUID Wright Colorless, Straw A (BEAKER) (test code = 511) RBC FLUID (BEAKER) 76317 /cu mm See_Comment H [Automat ed (test [...] 1590) system which generated this result transmit nvoa reference range : <=1. The refere nce [...] FLUID (BEAKER) (test code = 2873) POCT-GLUCOSE [id number] 21:31:00 Test Item Value Reference Range Interpretation Comments POC-GLUCOSE METER 181 mg/dL 70-110 H : TESTED A T [facility] 6720 (BEAKER) (test code = [facility], 1538) 49602: Warehouse Lead/Techni elsie ID = [id number] for Gi sset (pca2), Conn POCT-GLUCOSE [id number] 18:30:00 Test Item Value Reference Range Interpretation Comments POC-GLUCOSE METER 167 mg/dL 70-110 H : TESTED A T [facility] 6720 (BEAKER) (test code = [facility] [employer] [facility], 1538) 97987: Warehouse Lead/Techni elsie ID = [id number] for CA STRO, LUCY RAD, CHEST, 1 VIEW, NON [id number] 18:20:00DR Babita for exam:- >post right sided thoracentesisShould this be performed at the [facility] e?->YesPARNASSUS CAMPUSName: TRYO FORTE : 1955 Sex: MFINAL REPORT Chest, [...] No acute bone abnormality. Signed: Poornima Russo MDRyanick Verified Date/Time: 06/03/2021 18:20:00 Reading Location: [place] [address]W Consult Reading Room POCT-GLUCOSE METER 2021-06-03 11:45:00 Test Item Value Reference Range Interpretation Comments POC-GLUCOSE METER 159 mg/dL 70-110 H : TESTED A T [facility] 6720 (BEAKER) (test code = [facility], 1538) 21147: Warehouse Lead/Techni elsie ID = [id number] for saritakourtney Junie POCT-GLUCOSE [id number] 09:28:00 Test Item Value Reference Range Interpretation Comments POC-GLUCOSE METER 163 mg/dL 70-110 H : TESTED A T [facility] 6720 (BEAKER) (test code = [facility], 1538) 53744: Warehouse Lead/Techni elsie ID = [id number] for Ra cano Junie CBC W/PLT COUNT & AUTO [id number] 05:53:00 Test Item Value Reference Range Interpretation [...] 0-1 H PERCENT (BEAKER) (test code = 280) BASIC METABOLIC [id number] 05:41:00 Test Item Value Reference Range Interpretation [...] S NOT APPLICABLE FOR DIALYSIS PATIEN TS. Warehouse Lead ID - JORDAN [id number] 05:22:00 Test Item Value Reference Range Interpretation Comments MAGNESIUM (BEAKER) (test code = 2.0 mg/dL 1.6-2.6 627) Warehouse Lead ID - JORDAN [id number] 05:22:00 Test Item Value Reference Range Interpretation Comments PHOSPHORUS (BEAKER) (test code = 4.8 mg/dL 2.3-4.7 H 604) Warehouse Lead ID - JORDAN MSARS-COV2/RT-PCR ([facility])2021-06-03 03:56:00 Test Item Value Reference Range Interpretation Comments SARS-COV2/RT-PCR (test code = Negative Negative 0198620) Negative result for this test determines that [...] the Zapata SARS-CoV-2 assay.Fact Sheet for Healthcare Providers:https://www.Keoghs.Leeo/tracy/RT SARS-CoV-2 HCP Fact Sheet 51- 766604.pdfFact Sheet for Healthcare Patients:https://www.Keoghs.Leeo/tracy/RT SARS-CoV-2 Patient Fact Sheet EN 51-765306Q7.pdfPROTHROMBIN TIME/[id number] 01:17:00 Test Item Value Reference Range Interpretation Comments PROTIME (BEAKER) 14.3 seconds 11.9-14.2 H (test code = 759) INR (BEAKER) (test 1.13 See_Comment [Automat ed message] code = 370) The system [employer] generated this result transmitted ref erence range: <=5.90. The reference range was not used to int erpret this result as normal/abnormal . RECOMMENDED COUMADIN/WARFARIN INR THERAPY RANGESSTANDARD DOSE: 2.0 - 3.0 Includes: PROPHYLAXIS forvenous thrombosis, systemic embolization; TREATMENT for venous thrombosis and/or pulmonary embolus.HIGH RISK: Target INR is 2.5-3.5 for patients with mechanical heart valves.POCT-GLUCOSE [id number] 21:22:00 Test Item Value Reference Range Interpretation Comments POC-GLUCOSE METER 150 mg/dL 70-110 H : TESTED Lashell T [facility] 6720 (BEAKER) (test code = [place], 1538) 25872: Warehouse Lead/Techni elsie ID = [id number] for Hodan Mayo POCT-GLUCOSE [id number] 17:33:00 Test Item Value Reference Range Interpretation Comments POC-GLUCOSE METER 183 mg/dL 70-110 H : Notified RN/MD: (CONRAD) (test code = TESTED AT [facility] 67 1538) [facility], [address]: Warehouse Lead/Techni elsie ID = [id number] for Alexandrea Hernandez POCT-GLUCOSE [id number] 08:46:00 Test Item Value Reference Range Interpretation Comments POC-GLUCOSE METER 143 mg/dL 70-110 H : Notified RN/MD: (CONRAD) (test code = TESTED AT [facility] 67 1538) [facility], [address]: Warehouse Lead/Techni elsie ID = [id number] for Alexandrea Hernandez BASIC METABOLIC [id number] 07:12:00 Test Item Value Reference Range Interpretation [...] S NOT APPLICABLE FOR DIALYSIS PATIEN TS. Warehouse Lead ID - JORDAN [id number] 07:04:00 Test Item Value Reference Range Interpretation Comments MAGNESIUM (BEAKER) (test code = 2.1 mg/dL 1.6-2.6 627) Warehouse Lead ID - JORDAN [id number] 07:04:00 Test Item Value Reference Range Interpretation Comments PHOSPHORUS (BEAKER) (test code = 5.7 mg/dL 2.3-4.7 H 604) Warehouse Lead ID - JORDAN MCBC W/PLT COUNT & AUTO [id number] 06:25:00 Test Item Value Reference Range Interpretation [...] PERCENT (BEAKER) (test code = 2801) POCT-GLUCOSE [id number] 21:18:00 Test Item Value Reference Range Interpretation Comments POC-GLUCOSE METER 117 mg/dL 70-110 H : TESTED A T [place] [address] ([facility]) (test code = [facility] Melodie [facility], 153) [address]: Warehouse Lead/Techni elsie ID = [id number] for Hodan Mayo POCT-GLUCOSE [id number] 18:18:00 Test Item Value Reference Range Interpretation Comments POC-GLUCOSE METER 123 mg/dL 70-110 H : Notified RN/MD: (CONRAD) (test code = TESTED AT [place] [address] 1538) [facility], [address]: Warehouse Lead/Techni elsie ID = [id number] for Co christian, Alexandrea POCT-GLUCOSE [id number] 12:40:00 Test Item Value Reference Range Interpretation Comments POC-GLUCOSE METER 169 mg/dL 70-110 H : Notified RN/MD: (CONRAD) (test code = TESTED AT [place] [address] 153) [facility], [address]: Warehouse Lead/Techni elsie ID = [id number] for Co christian, Alexandrea POCT-GLUCOSE [id number] 08:51:00 Test Item Value Reference Range Interpretation Comments POC-GLUCOSE METER 119 mg/dL 70-110 H : Notified RN/MD: (CONRAD) (test code = TESTED AT [place] [address] 153) [facility], [address]: Warehouse Lead/Techni elsie ID = [id number] for Co christian, Alexandrea BASIC METABOLIC [id number] 06:37:00 Test Item Value Reference Range Interpretation [...] S NOT APPLICABLE FOR DIALYSIS PATIEN TS. Warehouse Lead ID - MAGEN [id number] 06:34:00 Test Item Value Reference Range Interpretation Comments MAGNESIUM (BEAKER) (test code = 2.1 mg/dL 1.6-2.6 627) Warehouse Lead ID - MAGEN [id number] 06:34:00 Test Item Value Reference Range Interpretation Comments PHOSPHORUS (BEAKER) (test code = 5.1 mg/dL 2.3-4.7 H 604) Warehouse Lead ID Disha US WCBC W/PLT COUNT & AUTO [id number] 05:46:00 Test Item Value Reference Range Interpretation [...] PERCENT (BEAKER) (test code = 2801) POCT-GLUCOSE [id number] 21:36:00 Test Item Value Reference Range Interpretation Comments POC-GLUCOSE METER 160 mg/dL 70-110 H : TESTED A T [facility] 6720 (BEAKER) (test code = [facility], 1537) [address]: Warehouse Lead/Techni elsie ID = [id number] for WILMAN BIRD RA POCT-GLUCOSE [id number] 17:16:00 Test Item Value Reference Range Interpretation Comments POC-GLUCOSE METER 151 mg/dL 70-110 H : TESTED A T [facility] 6720 (BEAKER) (test code = [facility], 1537) 90[address]: Warehouse Lead/Techni elsie ID = [id number] for JERRY BENSON LUCY POCT-GLUCOSE [id number] 12:22:00 Test Item Value Reference Range Interpretation Comments POC-GLUCOSE METER 153 mg/dL 70-110 H : TESTED A T [facility] 6720 (BEAKER) (test code = [facility], 1538) [address]: Warehouse Lead/Techni elsie ID = [id number] for CA LUCY BENSON BASIC METABOLIC [id number] 04:46:00 Test Item Value Reference Range Interpretation [...] S NOT APPLICABLE FOR DIALYSIS PATIEN TS. Warehouse Lead ID - MAGEN [id number] 04:25:00 Test Item Value Reference Range Interpretation Comments MAGNESIUM (BEAKER) (test code = 2.0 mg/dL 1.6-2.6 627) Warehouse Lead ID - MAGEN [id number] 04:25:00 Test Item Value Reference Range Interpretation Comments PHOSPHORUS (BEAKER) (test code = 4.3 mg/dL 2.3-4.7 604) Warehouse Lead ID - MAGEN WCBC W/PLT COUNT & AUTO [id number] 03:56:00 Test Item Value Reference Range Interpretation [...] PERCENT (BEAKER) (test code = 2801) POCT-GLUCOSE [id number] 21:39:00 Test Item Value Reference Range Interpretation Comments POC-GLUCOSE METER 183 mg/dL 70-110 H : TESTED A T [facility] 6720 (BEAKER) (test code = [place], 1538) [address]: Warehouse Lead/Techni elsie ID = [id number] for WILMAN BIRD RA POCT-GLUCOSE [id number] 17:38:00 Test Item Value Reference Range Interpretation Comments POC-GLUCOSE METER 145 mg/dL 70-110 H : TESTED A T [facility] 6720 (BEAKER) (test code = [facility], 1538) 92815: Warehouse Lead/Techni elsie ID = [id number] for FAHAD CASTAÑEDA POCT-GLUCOSE [id number] 12:58:00 Test Item Value Reference Range Interpretation Comments POC-GLUCOSE METER 122 mg/dL 70-110 H : TESTED A T [facility] 6720 (BEAKER) (test code = [facility], 1538) 69030: Warehouse Lead/Techni elsie ID = [id number] for IB PILAR, SERYANELISLEM BASIC METABOLIC [id number] 06:52:00 Test Item Value Reference Range Interpretation [...] S NOT APPLICABLE FOR DIALYSIS PATIEN TS. Warehouse Lead ID - JORDAN [id number] 06:36:00 Test Item Value Reference Range Interpretation Comments MAGNESIUM (BEAKER) (test code = 2.1 mg/dL 1.6-2.6 627) Warehouse Lead ID - JORDAN [id number] 06:36:00 Test Item Value Reference Range Interpretation Comments PHOSPHORUS (BEAKER) (test code = 5.0 mg/dL 2.3-4.7 H 604) Warehouse Lead ID - JORDAN MCBC W/PLT COUNT & AUTO [id number] 06:13:00 Test Item Value Reference Range Interpretation [...] PERCENT (BEAKER) (test code = 2801) POCT-GLUCOSE [id number] 21:35:00 Test Item Value Reference Range Interpretation Comments POC-GLUCOSE METER 132 mg/dL 70-110 H : TESTED A T [facility] 6720 (BEAKER) (test code = [facility], 1538) 63974: Warehouse Lead/Techni elsie ID = [id number] for WILMAN BIRD RA POCT-GLUCOSE [id number] 17:32:00 Test Item Value Reference Range Interpretation Comments POC-GLUCOSE METER 140 mg/dL 70-110 H : TESTED A T [facility] 6720 (BEAKER) (test code = [facility], 1538) 34194: Warehouse Lead/Techni elsie ID = [id number] for IB RAHIM, SERKALEM POCT-GLUCOSE [id number] 11:19:00 Test Item Value Reference Range Interpretation Comments POC-GLUCOSE METER 159 mg/dL 70-110 H : TESTED A T [facility] 6720 (BEAKER) (test code = [facility], 1538) 54546: Warehouse Lead/Techni elsie ID = [id number] for IB RAHIM, SERKALEM BASIC METABOLIC [id number] 08:10:00 Test Item Value Reference Range Interpretation [...] S NOT APPLICABLE FOR DIALYSIS PATIEN TS. Warehouse Lead ID - DAREK [id number] 08:05:00 Test Item Value Reference Range Interpretation Comments MAGNESIUM (BEAKER) (test code = 1.9 mg/dL 1.6-2.6 627) Warehouse Lead ID - DAREK [id number] 08:05:00 Test Item Value Reference Range Interpretation Comments PHOSPHORUS (BEAKER) (test code = 4.3 mg/dL 2.3-4.7 604) Warehouse Lead ID - DAREK MPOCT-GLUCOSE [id number] 07:57:00 Test Item Value Reference Range Interpretation Comments POC-GLUCOSE METER 144 mg/dL 70-110 H : TESTED A T [facility] 6720 (BEAKER) (test code = [facility], 1538) 32584: Warehouse Lead/Techni elsie ID = [id number] for IB HIM, SERYANELISLEM CBC W/PLT COUNT & AUTO [id number] 07:45:00 Test Item Value Reference Range Interpretation [...] PERCENT (BEAKER) (test code = 2801) POCT-GLUCOSE [id number] 21:17:00 Test Item Value Reference Range Interpretation Comments POC-GLUCOSE METER 162 mg/dL 70-110 H : TESTED A T [facility] 6720 (BEAKER) (test code = [facility], 153) 00420: Warehouse Lead/Techni elsie ID = [id number] for Hodan Mayo POCT-GLUCOSE [id number] 17:43:00 Test Item Value Reference Range Interpretation Comments POC-GLUCOSE METER 129 mg/dL 70-110 H : TESTED A T [facility] 6720 (BEAKER) (test code = [facility], 153) 53069: Warehouse Lead/Techni elsie ID = [id number] for Edwin Gonsalez U/S, [id number] 15:28:00DR STRIBLINGLabs to be ordered:->Body Fluid Culture (w/Gram Stain, C\T\S)Labs to be ordered:->G lucose+LDH+ProteinLabs to be ordered:->Cell CountLabs to be ordered:- >CytologyReason for exam:->ascites [facility] : 1955 Sex: MFINAL REPORT Ultrasound guided paracentesis Clinical History: Ascites. Sedation: None. Truck Headlight Assembler: Michelle Wilson PA-C Supervising Physician: Scott Alcazar MD Dried Yeast Supervisor: None. Estimated Blood Loss: < 1 mL. [...] anesthesia was achieved with lidocaine, a 5 Beninese one-step catheter was advanced into the peritoneal cavity under ultrasound guidance. After completion of drainage, the catheter was removed. There was no evidence of complication. Impression:Successful ultrasound guided paracentesis. Signed: Scott Alcazar Verified Date/Time: 05/28/2021 15:28:45 Reading Location: [address] Ultrasound Reading Room RAD, CHEST, 1 VIEW, NON [id number] 12:52:00DR STRIBLINGReason for exam:->interval change, pleural effusionShould this be performed at the bedside?->Yes [facility] : 1955 Sex: MFINAL REPORT [...] MDReport Verified Date/Time: 05/28/2021 12:52:22 Reading Location: [facility] Diagnostic Imaging Reading Room - [place] [address] POCT-GLUCOSE [id number] 12:06:00 Test Item Value Reference Range Interpretation Comments POC-GLUCOSE METER 157 mg/dL 70-110 H : TESTED A T [facility] 6720 (BEAKER) (test code = [facility] [place], 1538) 61595: Warehouse Lead/Techni elsie ID = [id number] for Ma trell (pca2), Shayna BODY FLUID CULTURE + GRAM [id number] 09:41:00 Test Item Value Reference Range Interpretation Comments CULTURE (BEAKER) (test code No growth = 1095) GRAM STAIN RESULT (BEAKER) 1+ WBCs (test code = 1123) GRAM STAIN RESULT (BEAKER) No organisms seen (test code = 22099) POCT-GLUCOSE [id number] 08:28:00 Test Item Value Reference Range Interpretation Comments POC-GLUCOSE METER 123 mg/dL 70-110 H : Notified RN/MD: (BEAKER) (test code = TESTED AT [facility] 6720 9218) [facility], [address]: Warehouse Lead/Techni elsie ID = [id number] for Yuki caballero (pca2), Nohelia [id number] 08:10:00 Test Item Value Reference Range Interpretation Comments MAGNESIUM (BEAKER) (test code = 1.8 mg/dL 1.6-2.6 627) Warehouse Lead ID - PATRICIA [facility] METABOLIC [id number] 07:50:00 Test Item Value Reference Range Interpretation [...] S NOT APPLICABLE FOR DIALYSIS PATIEN TS. Warehouse Lead ID - ANIBALAYA [id number] 07:35:00 Test Item Value Reference Range Interpretation Comments PHOSPHORUS (BEAKER) (test code = 5.7 mg/dL 2.3-4.7 H 604) Warehouse Lead ID - PIAYA LCBC W/PLT COUNT & AUTO [id number] 07:06:00 Test Item Value Reference Range Interpretation [...] (test code = 416) BASOPHILS ABSOLUTE COUNT ([facility]) 0.02 K/ L 0.01-0.08 (test code = 417) IMMATURE GRANULOCYTES-RELATIVE 1 % 0-1 PERCENT (DIPIKA) (test code = 2801) POCT-GLUCOSE [id number] 21:19:00 Test Item Value Reference Range Interpretation Comments POC-GLUCOSE METER 126 mg/dL 70-110 H : TESTED A T [facility] 67 (CONRAD) (test code = [facility], 1538) 59962: Warehouse Lead/Techni elsie ID = [id number] for Arlet Yanes POCT-GLUCOSE [id number] 18:22:00 Test Item Value Reference Range Interpretation Comments POC-GLUCOSE METER 164 mg/dL 70-110 H : Notified RN/MD: (CONRAD) (test code = TESTED AT [facility] 67 1538) [facility], [address]: Warehouse Lead/Techni elsie ID = [id number] for Yuki caballero (pca2), Sheridan POCT-GLUCOSE [id number] 13:51:00 Test Item Value Reference Range Interpretation Comments POC-GLUCOSE METER 114 mg/dL 70-110 H : Notified RN/MD: (CONRAD) (test code = TESTED AT [place] [address] 1538) [facility], [address]: Warehouse Lead/Techni elsie ID = [id number] for Yuki caballero (pca2), Nohelia [id number] 11:15:00Medical Cytology Report Case: [id number] Authorizing Provider: Rome Bhatti MD Collected: 05/26/2021 10:25 AM Ordering Location: [facility] Emergency Department Received: 05/26/2021 01:28 PM Pathologist: Silvestre Le MD Specimen: Peritoneal Fluid PERITONEAL FLUID (CYTOSPINS AND CELL BLOCK): -NEGATIVE FOR MALIGNANCY Signing Pathologist Direct Phone Line: [phone] Reactive mesothelial cells are present.55898, 48473Uttlxqh; history of chronic systolic/diastolic heart failure, cirrhosis, DM, hypothyroidism, HLD, chronic hypotension, CAD, chronic anemia, ESRD presented with abdominal distension, decreased uop, burning of foreskin and penisPERITONEAL FLUIDReceived 1500 ml clear, yellow fluid; prepared 4 cytospins and cell block(A2) - cell block prepared using a collodion bag andfixed in formalin at 5:02 pm on 05/26/21Performed. [facility], Department of Pathology, [address] [place] [address], [facility], [facility] of [facility], [address] [place] [address], [facility], Department of Pathology, [address] [place] [address], KBJLNGD DEHYDROGENASE (LDH), BODY [id number] 10:45:00 Test Item Value Reference Range Interpretation Comments LACTATE DEHYDROGENASE FLUID (BEAKER) 123 U/L (test code = 634) Absence of reference range indicates that normals have not been defined.Assay performance has not been validated for this type of specimen.Warehouse Lead ID - [id number], BODY [id number] 10:41:00 Test Item Value Reference Range Interpretation Comments PROTEIN FLUID (BEAKER) (test code = 5.4 g/dL 579) Absence of reference range indicates that normals have not been defined.Assay performance has not been validated for this type of specimen.Warehouse Lead ID - [id number]-LVGSSJR [id number] 09:21:00 Test Item Value Reference Range Interpretation Comments POC-GLUCOSE METER 134 mg/dL 70-110 H : TESTED A T [facility] 6720 (BEAKER) (test code = [facility], 1538) 86278: Warehouse Lead/Techni elsie ID = [id number] for JERRY MARCELINOLUCY BASIC METABOLIC [id number] 07:43:00 Test Item Value Reference Range Interpretation [...] S NOT APPLICABLE FOR DIALYSIS PATIEN TS. Warehouse Lead ID - MAGEN [id number] 07:42:00 Test Item Value Reference Range Interpretation Comments MAGNESIUM (BEAKER) (test code = 2.0 mg/dL 1.6-2.6 627) Warehouse Lead ID - MAGEN [id number] 07:42:00 Test Item Value Reference Range Interpretation Comments PHOSPHORUS (BEAKER) (test code = 4.4 mg/dL 2.3-4.7 604) Warehouse Lead ID - MAGEN WCBC W/PLT COUNT & AUTO [id number] 06:55:00 Test Item Value Reference Range Interpretation [...] PERCENT (BEAKER) (test code = 2801) POCT-GLUCOSE [id number] 21:47:00 Test Item Value Reference Range Interpretation Comments POC-GLUCOSE METER 138 mg/dL 70-110 H : TESTED A T [facility] 6720 ([employer]) (test code = [facility] [employer] [facility], 153) [address]: Warehouse Lead/Techni elsie ID = [id number] for La adelita (pca2), Victori a PTH, [id number] 19:07:00 Test Item Value Reference Range Interpretation Comments PARATHYROID HORMONE INTACT 396.3 pg/mL 8.5-72.5 H (AKER) (test code = 577) Warehouse Lead ID - BSPOCT-GLUCOSE [id number] 17:30:00 Test Item Value Reference Range Interpretation Comments POC-GLUCOSE METER 71 mg/dL 70-110 : TESTED A T [facility] 6720 ([employer]) (test code = [facility] [employer] [facility], 153) [address]: Warehouse Lead/Techni elsie ID = [id number] for Rosario ano, Edwin [id number] 17:28:00 Test Item Value Reference Range Interpretation Comments FERRITIN (BEAKER) (test code = 1901.90 ng/mL 5.00-275.00 H 361) Warehouse Lead ID - BSPOCT-GLUCOSE [id number] 17:18:00 Test Item Value Reference Range Interpretation Comments POC-GLUCOSE METER 63 mg/dL 70-110 L : TESTED A T [facility] 6720 (BEAKER) (test code = [facility], 1538) [address]: Warehouse Lead/Techni elsie ID = [id number] for Rosario ano, Edwin IRON, TIBC, % SAT. (WITHOUT FERRITIN)2021-05-26 17:00:00 Test Item Value Reference Range Interpretation Comments IRON (BEAKER) (test code = 547) 44.0 ug/dL 40.0-160.0 TOTAL IRON BINDING CAPACITY 136 ug/dL 250-450 L (BEAKER) (test code = 769) IRON % SATURATION (2) (BEAKER) 32 % 20-55 (test code = 2590) Warehouse Lead ID - BSHEPATITIS B SURFACE [id number] 14:17:00 Test Item Value Reference Range Interpretation Comments HEPATITIS B SURFACE ANTIGEN (2) Nonreactive Nonreactive (BEAKER) (test code = 2585) Specimen is considered negative for HBsAg.BODY FLUID CELL COUNT WITH [id number] 13:17:00 Test Item Value Reference Range Interpretation [...] (BEAKER) (test code = The stem which 1696) generated this result transmit nova reference range [...] Cup (BEAKER) (test code = 2873) POCT-GLUCOSE [id number] 12:41:00 Test Item Value Reference Range Interpretation Comments POC-GLUCOSE METER 76 mg/dL 70-110 : TESTED A T [facility] 6720 (BEAKER) (test code = [facility] [employer] [facility], 1538) [address]: Warehouse Lead/Techni elsie ID = [id number] for Greg bateman (pca2)Aleksandra POCT-GLUCOSE [id number] 07:29:00 Test Item Value Reference Range Interpretation Comments POC-GLUCOSE METER 90 mg/dL 70-110 : TESTED A T [facility] 6720 (BEAKER) (test code = [facility], 1538) [address]: Warehouse Lead/Techni elsie ID = [id number] for Ariel Perdue [id number] 05:33:00 Test Item Value Reference Range Interpretation Comments MAGNESIUM (BEAKER) (test code = 2.2 mg/dL 1.6-2.6 627) Warehouse Lead ID - JORDAN [id number] 05:33:00 Test Item Value Reference Range Interpretation Comments PHOSPHORUS (BEAKER) (test code = 6.0 mg/dL 2.3-4.7 H 604) Warehouse Lead ID - JORDAN MBASIC METABOLIC [id number] 05:33:00 Test Item Value Reference Range Interpretation [...] S NOT APPLICABLE FOR DIALYSIS PATIEN TS. Warehouse Lead ID - JORDAN MCBC W/PLT COUNT & AUTO [id number] 05:27:00 Test Item Value Reference Range Interpretation [...] PERCENT (BEAKER) (test code = 2801) SARS-COV2/RT-PCR ([facility])2021-05-26 03:02:00 Test Item Value Reference Range Interpretation Comments SARS-COV2/RT-PCR Negative Negative The SARS-Co V-2 target (test code = 2141968) nuclei c acids are not detected in [...] SARS-CoV-2/Flu/RSV by their healthcare provider. Results from [facility] Xpert Xpress SARS-CoV-2/Flu/RSV test should be [...] of the Act.Fact Sheet for Healthcare Providers :https://www.RouterShare/Documents/Xpert%20Xpress%20SARS%20CoV-2/Fact%20Sheets/3 02-3902%12WZTE-KBJ-4%20HEALTHCARE%20PROVIDERS%20FACT%20SHEET.pdfFact Sheet for Healthcare Patients:https://www.RouterShare /Documents/Xpert%20Xpress%20SARS%20Cov-2/Fact%20Sheets/302-3801%55UVPT-ELB-4%20P ATIENT%20FACT%20SHEET.pdfRAD, CHEST, 1 VIEW, NON [id number] 22:32:00DR STRIBLINGReason for exam:->shortness of breathShould this be performed at the bedside?->Yes[facility] : 1955 Sex: MFINAL [...] MDReport Verified Date/Time: 05/25/2021 22:32:46 Reading Location: [address] Consult Reading Room CT, [id number] 21:35:00DR STRIBLINGUnlisted Reason for Exam - Click Yes and Enter Reason Below->NoWill this procedure require oral contrast?->No[facility] FOR[facility] : 1955 Sex: MFINAL REPORT [...] evaluation with HIDA scan. Signed: Marya Arredondo [facility]ep[facility] [place] Verified Date/Time: 05/25/2021 21:35:09 [id number] 19:39:00 Test Item Value Reference Range Interpretation Comments LIPASE (BEAKER) (test code = 749) 19 U/L 8-78 Warehouse Lead ID - DBCOMPREHENSIVE METABOLIC [id number] 19:39:00 Test Item Value Reference Range Interpretation [...] S NOT APPLICABLE FOR DIALYSIS PATIEN TS. Warehouse Lead ID - DBOperator ID - DBB-TYPE NATRIURETIC FACTOR (BNP)2021-05-25 19:34:00 Test Item Value Reference Range Interpretation Comments B-TYPE NATRIURETIC PEPTIDE 00773 pg/mL 0-100 H (BEAKER) (test code = 700) Warehouse Lead ID - dbOperator ID - dbHIGH SENSITIVITY TROPONIN [id number] 19:13:00 Test Item Value Reference Range Interpretation Comments HIGH SENSITIVITY 54 pg/ml See_Comment H [Automated message] TROPONIN I (test code = The system which 4698781) generated this result transmitted ref erence range: <=35. Th e reference range was not used to int erpret this result as normal/abnormal . Warehouse Lead ID - dbThe PATTERN SCRATCHER STAT High Sensitivity Troponin-I results should be used in conjunctionwith other diagnostic information such as ECG, clinical observations and information, and patient symptoms to aid in the diagnosis of NE.PT/[id number] 19:08:00 Test Item Value Reference Range Interpretation [...] for patients with mechanical heart valves.HEPATIC FUNCTION [id number] 19:07:00 Test Item Value Reference Range Interpretation [...] (test code = 8 U/L 6-55 347) Warehouse Lead ID - DBCBC W/PLT COUNT & AUTO [id number] 18:55:00 Test Item Value Reference Range Interpretation [...] 0-1 PERCENT (BEAKER) (test code = 2801) [id number] 16:39:00 Test Item Value Reference Range Interpretation Comments GLUBED (test code = 104 MG/DL 70-110 N Performe d by certified GLUBED) audio/visual operator at [facility] - XR FLUOROSCOPY 0-60 [id number] 15:03:00 [facility] 1955 Sex: M FAX: Espinoza Santillan MD [phone] [place]: St: REG Name: TROY FORTE RUANO [facility] : 1955 Age/S: 65/M [address] [place] [address] Unit #: [id number] Loc: [place] [address] Phys: Espinoza Villagran MD Acct: [id number] Dis Date: Status: REG [facility] PHONE #: [phone] Exam Date: 12/19/2020 1445 FAX #: [phone] Reason: LUE FISTULA MALFUNCTION EXAMS: CPT CODE: [id number] XR FLUOROSCOPY0-60 MIN 94356 Study: - XR FLUOROSCOPY 0-60 MIN 12/19/2020 2:00 PM Patient Name: TROY FORTE MR: [id number] DATE: 12/19/2020 2:00 PM : 1955; Age: 65 years y/o Male Ordering Physician: Espinoza Villagran MD Clinical Indication: LUE FISTULA MALFUNCTION Intraprocedural fluoroscopy wasprovided by the Department of Radiology. Any images obtained were interpreted by the surgeon intraoperatively. Fluoroscopy time: 18 seconds Reference Air Kerma: 1.3 mGy SL: [id number] at 1503 Reported and signed by: Ar Coffman D.O. CC: Espinoza Villagran MD Technologist: SONNY Sneed) Trnscrd Date/Time/By: 12/19/2020 (1814) : By:[email or web address] Orig Print D/T: S: 12/19/2020 (1012) PAGE 1 Signed ReportBASIC METABOLIC PANEL 2020-12-19 [...] 8.8 mg/dL 8.0-10.5 N CA) CBC W/AUTO [id number] 10:45:00 Test Item Value Reference Range Interpretation [...] NO = MDIFF) - XR CHEST 1 [id number] 10:42:00 [facility] : 1955 Sex: M FAX: Espinoza Santillan MD [phone] [place]: St: REG Name: TROY FORTE [facility] : 1955 Age/S: 65/M [address] [place] [address] Unit #: [id number] Loc: [place] [address] Phys: Espinoza Villagran MD Acct: [id number] Dis Date: Status: REG [facility] PHONE #: [phone] Exam Date: 12/19/2020 1031 FAX #: [phone] Reason: PRE PROCEDURE EXAMS: CPT CODE: [id number] XR CHEST 1 V 24134 Study: - XR CHEST 1 V 12/19/2020 9:13 AM Patient Name: TROY FORTE MR: [id number] : 1955; Age: 65 years y/o Male [...] congestion and small bilateral pleural effusions. SL: [id number] at 1042 Reported and signed by: Tr Ly M.D. CC: Espinoza Villagran MD Technologist: Bren Quinonez RT(R) Trnscrd Date/Time/By: 12/19/2020 (9877) : By: [email or web address] Orig Print D/T: S: 12/19/2020 (3762) PAGE 1 Signed ReportCBC W/AUTO [id number] 10:41:00 Test Item Value Reference Range Interpretation [...] code = MDIFF) COVID 19 Asymptomatic IH [id number] 10:40:00 Test Item Value Reference Range Interpretation [...] Interpretation Comments SCAN RESULT (test code = 1988459) ALBUMIN PERITONEAL [id number] 11:32:00 Test Item Value Reference Range Interpretation Comments ALBUMIN, PERITONEAL FLUID (BEAKER) 2.4 g/dL (test code = 3075630) This test was performed at [facility], [facility].Reference range is not defined and interpretation must be performed in the consideration of the pathophysiology of the analyte and the clinical context.POCT-GLUCOSE METER 2020-11-21 11:23:00 Test Item Value Reference Range Interpretation Comments POC-GLUCOSE METER 175 mg/dL 70-110 H : TESTED A T [facility] 6720 (BEAKER) (test code = [facility], 1538) [address]: Warehouse Lead/Techni elsie ID = [id number] for IB EBENM, SERYANELISLEM HEPATIC FUNCTION [id number] 10:08:00 Test Item Value Reference Range Interpretation [...] (test code = 7 U/L 6-55 347) Warehouse Lead ID - EDASIPOCT-GLUCOSE [id number] 08:18:00 Test Item Value Reference Range Interpretation Comments POC-GLUCOSE METER 130 mg/dL 70-110 H : TESTED A T [facility] 6720 (BEAKER) (test code = [facility] [place], 1538) [address]: Warehouse Lead/Techni elsie ID = [id number] for FAHAD CASTAÑEDA BASIC METABOLIC [id number] 07:17:00 Test Item Value Reference Range Interpretation [...] S NOT APPLICABLE FOR DIALYSIS PATIEN TS. Warehouse Lead ID - [id number] 07:16:00 Test Item Value Reference Range Interpretation Comments MAGNESIUM (BEAKER) (test code = 2.0 mg/dL 1.6-2.6 627) Warehouse Lead ID - ADMINCBC (HEMOGRAM ONLY)2020-11-21 06:55:00 Test [...] = 413) RAD, CHEST, 1 VIEW, NON [id number] 00:39:00Reason for exam:->SICD implantShould this be performed at the bedside?->Yes [facility] : 1955 Sex: MFINAL [...] the left chest wall. Signed: Elidia Patel [facility] Verified Date/Time: 11/21/2020 00:39:32 E lectronically signed by: ELIDIA PATEL MD on 11/21/2020 12:39 AMPOCT- GLUCOSE [id number] 21:44:00 Test Item Value Reference Range Interpretation Comments POC-GLUCOSE METER 173 mg/dL 70-110 H : TESTED A T [facility] 6720 (BEAKER) (test code = [facility], 1538) [address]: Warehouse Lead/Techni elsie ID = [id number] for WILMAN BIRD RA POCT-GLUCOSE [id number] 18:37:00 Test Item Value Reference Range Interpretation Comments POC-GLUCOSE METER 157 mg/dL 70-110 H : TESTED A T [facility] 6720 (BEAKER) (test code = [facility], 1538) [address]: Warehouse Lead/Techni elsie ID = [id number] for RICARDO COOK POCT-GLUCOSE [id number] 17:03:00 Test Item Value Reference Range Interpretation Comments POC-GLUCOSE METER 151 mg/dL 70-110 H : TESTED A T [facility] 6720 (BEAKER) (test code = [facility], 1538) [address]: Warehouse Lead/Techni elsie ID = [id number] for CORI NAVA BLOOD GAS, [id number] 14:46:00 Test Item Value Reference Range Interpretation [...] (test code = 1819) 100.0 SODIUM NA-STAT [id number] 14:46:00 Test Item Value Reference Range Interpretation Comments SODIUM (BEAKER) (test code = 381) 133 meq/L 136-145 L POTASSIUM-STAT [id number] 14:46:00 Test Item Value Reference Range Interpretation Comments POTASSIUM (BEAKER) (test code = 3.3 meq/L 3.6-5.5 L 379) GLUCOSE-STAT [id number] 14:46:00 Test Item Value Reference Range Interpretation Comments GLUCOSE RANDOM (BEAKER) (test code 143 mg/dL 70-110 H = 652) HGB/HCT (H&H) - STAT [id number] 14:46:00 Test Item Value Reference Range Interpretation Comments HEMOGLOBIN (BEAKER) (test code = 7.3 GM/DL 13.0-16.8 L 410) HEMATOCRIT (BEAKER) (test code = 21.0 % 40.0-50.0 L 411) BODY FLUID CULTURE + GRAM [id number] 12:24:00 Test Item Value Reference Range Interpretation Comments CULTURE (BEAKER) (test code No growth = 1095) GRAM STAIN RESULT (BEAKER) 1+ WBCs (test code = 1123) GRAM STAIN RESULT (BEAKER) No organisms seen (test code = 78874) POCT-GLUCOSE [id number] 09:22:00 Test Item Value Reference Range Interpretation Comments POC-GLUCOSE METER 156 mg/dL 70-110 H : Notified RN/MD: (ISAACAKER) (test code = TESTED AT [facility] [id number]) [facility], [id number]: Warehouse Lead/Techni elsie ID = [id number] for AN RICARDO DAUGHERTY PROTHROMBIN TIME/[id number] 04:26:00 Test Item Value Reference Range Interpretation [...] valves.Within 24 hours, if on CoumadinBASIC METABOLIC [id number] 04:13:00 Test Item Value Reference Range Interpretation [...] S NOT APPLICABLE FOR DIALYSIS PATIEN TS. Warehouse Lead ID - PIAYA [id number] 04:03:00 Test Item Value Reference Range Interpretation Comments MAGNESIUM (BEAKER) (test code = 2.0 mg/dL 1.6-2.6 627) Warehouse Lead ID - PIAYA LCBC (HEMOGRAM ONLY)2020-11-20 03:55:00 Test Item Value [...] CORPUSCULAR HEMOGLOBIN CONC 30.4 GM/DL 32.3-36.5 L ([facility]) (test code = 752) RED CELL DISTRIBUTION WIDTH 16.6 % 11.6-14.4 H ([facility]) (test code = 412) PLATELET COUNT ([facility]) (test 240 K/CU MM 150-450 code = 756) MEAN PLATELET VOLUME ([facility]) 10.1 fL 9.4-12.4 (test code = 754) NUCLEATED RED BLOOD CELLS 0 /100 WBC 0-0 ([facility]) (test code = 413) POCT-GLUCOSE [id number] 21:13:00 Test Item Value Reference Range Interpretation Comments POC-GLUCOSE METER 222 mg/dL 70-110 H : [facility] ([facility]) (test code = [facility], 1537) [address]: Warehouse Lead/Techni elsie ID = [id number] for WILMAN BIRD RA POCT-GLUCOSE [id number] 17:48:00 Test Item Value Reference Range Interpretation Comments POC-GLUCOSE METER 205 mg/dL 70-110 H : Notified RN/MD: ([facility]) (test code = TESTED AT [place] [address] 153) [facility], [address]: Warehouse Lead/Techni elsie ID = [id number] for RICARDO COOK POCT-GLUCOSE [id number] 12:22:00 Test Item Value Reference Range Interpretation Comments POC-GLUCOSE METER 196 mg/dL 70-110 H : Notified RN/MD: ([facility]) (test code = TESTED AT [place] [address] 1537) [facility], [address]: Warehouse Lead/Techni elsie ID = [id number] for RICRADO COOK POCT-GLUCOSE [id number] 08:52:00 Test Item Value Reference Range Interpretation Comments POC-GLUCOSE METER 166 mg/dL 70-110 H : [facility] ([facility]) (test code = [facility], 1537) [address]: Warehouse Lead/Techni elsie ID = [id number] for Junie cano POCT-GLUCOSE [id number] 08:52:00 Test Item Value Reference Range Interpretation Comments POC-GLUCOSE METER 176 mg/dL 70-110 H : [facility] (BEAKER) (test code = [facility], 1538) [address]: Warehouse Lead/Techni elsie ID = [id number] for Junie Gutiérrez POCT-GLUCOSE [id number] 08:39:00 Test Item Value Reference Range Interpretation Comments POC-GLUCOSE METER 144 mg/dL 70-110 H : Notified RN/MD: (BEAKER) (test code = TESTED AT [facility] 6724 1978) [facility], [address]: Warehouse Lead/Techni elsie ID = [id number] for RICARDO COOK BASIC METABOLIC [id number] 07:50:00 Test Item Value Reference Range Interpretation [...] S NOT APPLICABLE FOR DIALYSIS PATIEN TS. Warehouse Lead ID - [id number] 07:46:00 Test Item Value Reference Range Interpretation Comments MAGNESIUM (BEAKER) (test code = 2.0 mg/dL 1.6-2.6 627) Warehouse Lead ID - JOSHUASONHEPATIC FUNCTION [id number] 07:46:00 Test Item Value Reference Range Interpretation [...] (test code = 9 U/L 6-55 347) Warehouse Lead ID - BENYB-TYPE NATRIURETIC FACTOR (BNP)2020-11-19 07:44:00 Test Item Value Reference Range Interpretation Comments B-TYPE NATRIURETIC PEPTIDE 4442 pg/mL 0-100 H (BEAKER) (test code = 700) Warehouse Lead ID - JOSHUASONCBC (HEMOGRAM ONLY)2020-11-19 07:14:00 Test [...] 0-0 (BEAKER) (test code = 413) POCT-GLUCOSE [id number] 23:22:00 Test Item Value Reference Range Interpretation Comments POC-GLUCOSE METER 132 mg/dL 70-110 H : TESTED A T [facility] 6720 (BEAKER) (test code = [facility] [place], 1538) [address]: Warehouse Lead/Techni elsie ID = [id number] for NO OR ABISAI BROWN POCT-GLUCOSE [id number] 17:45:00 Test Item Value Reference Range Interpretation Comments POC-GLUCOSE METER 259 mg/dL 70-110 H : TESTED A T [facility] 6720 (BEAKER) (test code = [facility] [place], 1538) [address]: Warehouse Lead/Techni elsie ID = [id number] for Junie Gutiérrez T4, [id number] 09:08:00 Test Item Value Reference Range Interpretation Comments FREE T4 (BEAKER) (test code = 655) 0.62 ng/dL 0.70-1.48 L Warehouse Lead ID - JORDAN MTSH/FREE T4 IF [id number] 08:03:00 Test Item Value Reference Range Interpretation Comments THYROID STIMULATING HORMONE 7.177 uIU/mL 0.350-4.940 H (BEAKER) (test code = 772) Warehouse Lead ID - JORDAN MBASIC METABOLIC [id number] 07:42:00 Test Item Value Reference Range Interpretation [...] S NOT APPLICABLE FOR DIALYSIS PATIEN TS. Warehouse Lead ID - JORDAN [id number] 07:41:00 Test Item Value Reference Range Interpretation Comments MAGNESIUM (BEAKER) (test code = 1.9 mg/dL 1.6-2.6 627) Warehouse Lead ID - JORDAN MHEPATIC FUNCTION [id number] 07:41:00 Test Item Value Reference Range Interpretation [...] (test code = 11 U/L 6-55 347) Warehouse Lead ID - JORDAN MCBC (HEMOGRAM ONLY)2020-11-18 06:18:00 [...] 0-0 (BEAKER) (test code = 413) POCT-GLUCOSE [id number] 00:01:00 Test Item Value Reference Range Interpretation Comments POC-GLUCOSE METER 164 mg/dL 70-110 H : [facility] (BEAKER) (test code = [facility], 1538) [address]: Warehouse Lead/Techni elsie ID = [id number] for NO OR ABISAI BROWN POCT-GLUCOSE [id number] 17:28:00 Test Item Value Reference Range Interpretation Comments POC-GLUCOSE METER 247 mg/dL 70-110 H : TESTED A T [facility] 6720 (BEAKER) (test code = [facility], 1538) [address]: Warehouse Lead/Techni elsie ID = [id number] for EDE GASPAR [id number] 15:35:00Medical Cytology Report Case: [id number] Authorizing Provider: Arben Cantor MD Collected: 11/16/2020 11:50 AM Ordering Location: [address] Received: 11/17/2020 09:32 AM Service Pathologist: Silvestre Le MD Specimen: Perit cabezas Fluid PERITONEAL FLUID (CYTOPSPINS): - NEGATIVE FOR MALIGNANCY Signing Pathologist Direct Phone Line: [phone] signed by Silvestre Le MD on 11/17/2020 at 3:35 [id number], CHFPERITONEAL [id number] mls madina fluid; 4 cytospinsPerformed. [facility], Department of Pathology, [address] [place] [address], [facility], Department of Pathology, [address] [place] [address], [facility], Department of Pathology, [address] [place] [address], EHVK-NUCLEAR ANTIBODY (SANTANA)2020-11-17 15:14:00 Test Item Value Reference Range Interpretation Comments ANTI-NUCLEAR ANTIBODY (SANTANA) (BEAKER) Negative Negative (test code = 418) Test performed by IFA method.Test performed by IFA method.PROTEIN, TOTAL, PERITONEAL [id number] 15:08:00 Test Item Value Reference Range Interpretation Comments PROTEIN, TOTAL, PERITONEAL FLUID 5.2 g/dL (BEAKER) (test code = 2762714) POCT-GLUCOSE [id number] 12:05:00 Test Item Value Reference Range Interpretation Comments POC-GLUCOSE METER 187 mg/dL 70-110 H : TESTED A T [facility] 6720 (BEAKER) (test code = [facility] [employer] [facility], 1538) [address]: Warehouse Lead/Techni elsie ID = [id number] for EDE GASPAR POCT-GLUCOSE [id number] 08:00:00 Test Item Value Reference Range Interpretation Comments POC-GLUCOSE METER 202 mg/dL 70-110 H : TESTED A T [facility] 6720 (BEAKER) (test code = [place], 1538) [address]: Warehouse Lead/Techni elsie ID = [id number] for EDE GASPAR BASIC METABOLIC [id number] 06:49:00 Test Item Value Reference Range Interpretation [...] S NOT APPLICABLE FOR DIALYSIS PATIEN TS. Warehouse Lead ID - [id number] 06:46:00 Test Item Value Reference Range Interpretation Comments MAGNESIUM (BEAKER) (test code = 1.9 mg/dL 1.6-2.6 627) Warehouse Lead ID - [id number] 06:46:00 Test Item Value Reference Range Interpretation Comments PHOSPHORUS (BEAKER) (test code = 6.9 mg/dL 2.3-4.7 H 604) Warehouse Lead ID - EDASIHEPATIC FUNCTION [id number] 06:46:00 Test Item Value Reference Range Interpretation [...] (test code = 10 U/L 6-55 347) Warehouse Lead ID - EDASIPTH, [id number] 06:40:00 Test Item Value Reference Range Interpretation Comments PARATHYROID HORMONE INTACT 540.2 pg/mL 8.5-72.5 H (BEAKER) (test code = 577) Warehouse Lead ID - DBCBC W/PLT COUNT & AUTO [id number] 06:23:00 Test Item Value Reference Range Interpretation [...] PERCENT (BEAKER) (test code = 2801) POCT-GLUCOSE [id number] 22:19:00 Test Item Value Reference Range Interpretation Comments POC-GLUCOSE METER 233 mg/dL 70-110 H : TESTED Lashell Ureña [facility] 6720 (BEAKER) (test code = [place], 1538) [address]: Warehouse Lead/Techni elsie ID = [id number] for Emmanuel Moreno POCT-GLUCOSE [id number] 17:34:00 Test Item Value Reference Range Interpretation Comments POC-GLUCOSE METER 179 mg/dL 70-110 H : Notified RN/MD: (CONRAD) (test code = TESTED AT [place] [address] 1538) [facility], [address]: Warehouse Lead/Techni elsie ID = [id number] for AN RICARDO DAUGHERTY [id number] 15:07:00 Test Item Value Reference Range Interpretation Comments FERRITIN (BEAKER) (test code = 3231.34 ng/mL 5.00-275.00 H 361) Warehouse Lead ID - EDASIOperator ID - EDASIBODY FLUID [...] EDTA Tube (test code = 2873) POCT-GLUCOSE [id number] 13:16:00 Test Item Value Reference Range Interpretation Comments POC-GLUCOSE METER 206 mg/dL 70-110 H : Notified RN/: ([facility]) (test code = TESTED AT [place] [address] 1538) [facility], [address]: Warehouse Lead/Techni elsie ID = [id number] for AN RICARDO DAUGHERTY U/S, [id number] 12:46:00Last Plavix 11/13Labs to be ordered:->Body Fluid Culture (w/Gram Stain, C\T\S)Needs total protein, and fluid albumin for SAAG calculationLabs to be ordered:->CytologyLabs to be ordered:->Cell Cou ntLabs to be ordered:->Other (please add comment)Reason for exam:->new onset ascitesPARNASSUS CAMPUSName: TROY FORTE : 1955 Sex: MFINAL REPORT PROCEDURE: Ultrasound-guided paracentesis. INDICATION: 65-year-old man with ascites. DESCRIPTION: After obtaining informed written consent, ultrasound scan of theabdomen identified ascites in the right lower quadrant. The overlying skin was prepped and draped inthe usual, sterile fashion and local 2% lidocaine anesthesia was administered. A 5 Beninese catheter was advanced into the peritoneal cavity and 5600 cc of serous fluid was removed. The catheter was removed without immediate complication. Samples were sent for analysis. IMPRESSION:Uncomplicated ultrasound-guided paracentesis with 5600 cc fluid removed. Signed: Charles Floyd Verified Date/Time: 11/16/2020 12:46:29 Reading Location: [address] Body Reading Room [id number] 2020-11-16 11:46:00 Test Item Value Reference Range Interpretation Comments ALPHA-1 ANTITRYPSIN (BEAKER) 235.00 mg/dL 90.00-200.00 H (test code = 502) Warehouse Lead ID - EDASIOperator ID - AAHAMIDSARS-COV2/RT-PCR ([facility]) 2020-11-16 11:16:00 Test Item Value Reference Range Interpretation Comments SARS-COV2/RT-PCR (test Negative Not Detected, Negative, code = 8537340) See external report for linked test SARS-COV-2 PERFORMING LAB [facility] KARINA (test code = 2332849) Negative result for this test determines that [...] 564(g) of the Act.Fact Sheet for Healthcare Providers:https://www.[employer] Networksidel.com/sites/default/files/product/documents/Fact_Shee b_SM_Nghdukqmt_Sicw_ZPJM-DtF-4.pdfFact Sheet for Healthcare Patients:https://www.[employer].com/sites/default/files/product/ documents/Kbqd_Bexez_Jqeuhcsl_Lcij_FQWB-QaJ-3.pdfPerforming Laboratory:[facility], [place] [address]XCRHINKUA A ANTIBODY, [id number] 11:06:00 Test Item Value Reference Range Interpretation Comments HEPATITIS A IGG ANTIBODY (BEAKER) Reactive Nonreactive A (test code = 2797) Warehouse Lead ID - AAHAMIDALPHA FETOPROTEIN (AFP), TUMOR [id number] 10:52:00 Test Item Value Reference Range Interpretation Comments ALPHA-FETOPROTEIN (BEAKER) (test code < ng/mL <10.0 = 1094) Warehouse Lead ID - AAHAMIDHEPATITIS A ANTIBODY, [id number] 09:52:00 Test Item Value Reference Range Interpretation Comments HEPATITIS A IGM ANTIBODY (BEAKER) Nonreactive Nonreactive (test code = 498) Warehouse Lead ID - AAHAMIDHEPATITIS B CORE ANTIBODY, [id number] 09:52:00 Test Item Value Reference Range Interpretation Comments HEPATITIS B CORE TOTAL ANTIBODY Nonreactive Nonreactive (BEAKER) (test code = 497) Warehouse Lead ID - AAHAMIDHEPATITIS B SURFACE [id number] 09:52:00 Test Item Value Reference Range Interpretation Comments HEPATITIS B SURFACE ANTIBODY 256.5 mIU/mL <8.0 H (CONRAD) (test code = 647) Warehouse Lead ID - AAHAMIDPOCT-GLUCOSE [id number] 08:18:00 Test Item Value Reference Range Interpretation Comments POC-GLUCOSE METER 190 mg/dL 70-110 H : Notified RN/MD: (CONRAD) (test code = TESTED AT [facility] 6720 8117) [facility], [address]: Warehouse Lead/Techni elsie ID = [id number] for AN RICARDO DAUGHERTY U/S, ABDOMINAL, [id number] 06:31:00Evaluate spleen size and hepatic vesselsAbdomen limited area? Add comment if clarification is needed.- >LiverReason for exam:->New onset ascites - CT with nodular liver contour - please examine hepatic vasculature to r/o PVT [facility]USName: [facility]OY FORTE : 1955 Sex: MFINAL [...] venous thrombosis.Right pleural effusion. Signed: Elidia Patel MDRbridgeport hospital Verified Date/Time: 11/16/2020 06:31:37 U/S, DUPLEX, [id number] 06:31:00Reason for exam:->hepatic vasculature pvt [facility] : 1955 Sex: MFINAL REPORT [...] Elidia [place] Verified Date/Time: 11/16/2020 06:31:37 POCT-GLUCOSE [id number] 22:44:00 Test Item Value Reference Range Interpretation Comments POC-GLUCOSE METER 191 mg/dL 70-110 H : TESTED A T [facility] 6720 (BEAKER) (test code = [facility]) [address]: Warehouse Lead/Techni elsie ID = [id number] for YUKI CLEMENT POCT-GLUCOSE [id number] 22:26:00 Test Item Value Reference Range Interpretation Comments POC-GLUCOSE METER 211 mg/dL 70-110 H : TESTED A T [facility] 6720 (BEAKER) (test code = [facility]) [address]: Warehouse Lead/Techni elsie ID = [id number] for DIONISIO [place]INGS POCT-GLUCOSE [id number] 19:18:00 Test Item Value Reference Range Interpretation Comments POC-GLUCOSE METER 122 mg/dL 70-110 H : TESTED A T [facility] 6720 (BEAKER) (test code = [facility], 153) [address]: Warehouse Lead/Techni elsie ID = [id number] for OG MARK, SANDHYA POCT-GLUCOSE [id number] 12:37:00 Test Item Value Reference Range Interpretation Comments POC-GLUCOSE METER 173 mg/dL 70-110 H : TESTED A T [facility] 6720 (BEAKER) (test code = [facility], 153) [address]: Warehouse Lead/Techni elsie ID = [id number] for RICARDO COOK HEPATITIS B SURFACE [id number] 11:33:00 Test Item Value Reference Range Interpretation Comments HEPATITIS B SURFACE ANTIGEN (2) Nonreactive Nonreactive (BEAKER) (test code = 2585) Specimen is considered negative for HBsAg.HEPATITIS B SURFACE [id number] 11:33:00 Test Item Value Reference Range Interpretation Comments HEPATITIS B SURFACE ANTIBODY 248.1 mIU/mL <8.0 H (BEAKER) (test code = 647) Warehouse Lead ID - DBHEPATITIS B CORE ANTIBODY, [id number] 11:33:00 Test Item Value Reference Range Interpretation Comments HEPATITIS B CORE TOTAL ANTIBODY Nonreactive Nonreactive (BEAKER) (test code = 497) Warehouse Lead ID - DBHEMOGLOBIN [id number] 11:28:00 Test Item Value Reference Range Interpretation [...] 24 % 20-55 (test code = 2590) Warehouse Lead ID - DBPOCT-GLUCOSE [id number] 08:18:00 Test Item Value Reference Range Interpretation Comments POC-GLUCOSE METER 204 mg/dL 70-110 H : Notified RN/MD: (BEAKER) (test code = TESTED AT [facility] 8661 6714) [facility], [address]: Warehouse Lead/Techni elsie ID = [id number] for AN RICARDO DAUGHERTY BASIC METABOLIC [id number] 07:13:00 Test Item Value Reference Range Interpretation [...] S NOT APPLICABLE FOR DIALYSIS PATIEN TS. Warehouse Lead ID - [id number] 07:11:00 Test Item Value Reference Range Interpretation Comments MAGNESIUM (BEAKER) (test code = 2.1 mg/dL 1.6-2.6 627) Warehouse Lead ID - DBHEPATIC FUNCTION [id number] 07:11:00 Test Item Value Reference Range Interpretation [...] (test code = 15 U/L 6-55 347) Warehouse Lead ID - DBHEPATITIS C [id number] 06:59:00 Test Item Value Reference Range Interpretation Comments HEPATITIS C ANTIBODY (BEAKER) Nonreactive Nonreactive (test code = 367) Warehouse Lead ID - DBCBC W/PLT COUNT & AUTO [id number] 06:57:00 Test Item Value Reference Range Interpretation [...] PERCENT (BEAKER) (test code = 2801) PROTHROMBIN TIME/[id number] 05:55:00 Test Item Value Reference Range Interpretation [...] mechanical heart valves.RAD, CHEST, 1 VIEW, NON [id number] 01:26:00Reason for exam:->Weight loss, new ascites, volume overloadShould this be performed at the bedside?->Yes [facility]Name[facility]OY [facility]TE : 1955 Sex: MFINAL [...] transjugular central venous catheter. Signed: Angy Fuller Verified Date/Time: 11/15/2020 01:26:29 GLUBED 2020-06-20 14:53:00 Test Item Value Reference Range Interpretation Comments GLUBED (test code = 117 MG/DL 70-110 H Performe d by certified GLUBED) audio/visual operator at [facility] BASIC METABOLIC [id number] 13:42:00 Test Item Value Reference Range Interpretation [...] 8.2 mg/dL 8.0-10.5 N CA) CBC W/AUTO [id number] 13:28:00 Test Item Value Reference Range Interpretation [...] DIFF REQUIRED (test code NO = MDIFF) [id number] 11:56:00 Test Item Value Reference Range Interpretation Comments GLUBED (test code = 132 MG/DL 70-110 H Performe d by certified GLUBED) audio/visual operator at [facility] Novel Coronavirus 2019 [id number] 20:44:00 Test Item Value Reference Range Interpretation Comments Novel Coronavirus 2019 Inhouse (test Negative Negative code = COVNONPUI) - XR CHEST 2 [id number] 10:48:00 FAX: Espinoza Santillan MD [phone] [place]: St: PRE Name: TROY FORTE [facility] [place] : 1955 Age/S: 64/M [address] [place] [address] Unit#: [id number] Loc: [place] [address] Phys: Espinoza Villagran MD Acct: [id number] Dis Date: Status: PRE SDC PHONE #: [phone] Exam Date: 06/18/2020 09 FAX #: [phone] Reason: PREOP- ESRD EXAMS: CPT CODE: [id number] XR CHEST 2 V 25953 CLINICAL HISTORY: PREOP- ESRD COMPARISON: March 22, [...] MD Technologist: RT Paolo(R) Trnscrd Date/Time/By: 06/18/2020 (9879) : By: MansiYOS Orig Print D/T: S: 06/18/2020 (0148) PAGE 1 Signed ReportBASIC METABOLIC [id number] 09:12:00 Test Item Value Reference Range Interpretation [...] = 8.0 mg/dL 8.0-10.5 N CA) PROTHROMBIN [id number] 09:06:00 Test Item Value Reference Range Interpretation [...] o prevent recurre nt infarct). THROMBOPLASTIN TIME [id number] 09:06:00 Test Item Value Reference Range Interpretation Comments THROMBOPLASTIN TIME PARTIAL (test Seconds 25.0-39.5 code = PTT) PROTHROMBIN [id number] 09:06:00 Test Item Value Reference Range Interpretation [...] o prevent recurre nt infarct). THROMBOPLASTIN TIME [id number] 09:06:00 Test Item Value Reference Range Interpretation Comments THROMBOPLASTIN TIME 37.2 Seconds 25.0-39.5 N Ther apeutic PARTIAL (test code = Range: 50.4 - 88.3 PTT) Seconds Effective 02/20/2019 CBC W/AUTO [id number] 08:58:00 Test Item Value Reference Range Interpretation [...] REQUIRED (test code NO = MDIFF) URINE [id number] 14:16:00 Test Item Value Reference Range Interpretation [...] code = 1095) Ekaterina albican s POCT-GLUCOSE [id number] 17:07:00 Test Item Value Reference Range Interpretation Comments POC-GLUCOSE METER 168 mg/dL 70-110 H TESTED AT [facility] 6720 ([facility] (test code = [facility] 1538) [address] POCT-GLUCOSE [id number] 13:49:00 Test Item Value Reference Range Interpretation Comments POC-GLUCOSE METER 172 mg/dL 70-110 H TESTED AT [facility] 6720 ([facility]) (test code = [facility] 1538) [address] BASIC METABOLIC [id number] 09:18:00 Test Item Value Reference Range Interpretation [...] H (BEAKER) (test code = 413) POCT-GLUCOSE [id number] 21:43:00 Test Item Value Reference Range Interpretation Comments POC-GLUCOSE METER 175 mg/dL 70-110 H TESTED AT [place] [address] ([facility]) (test code = [facility] 1538) [address] POCT-GLUCOSE [id number] 12:42:00 Test Item Value Reference Range Interpretation Comments POC-GLUCOSE METER 113 mg/dL 70-110 H TESTED AT [place] [address] ([facility]) (test code = [facility] Melodie [facility] 1538) [address] BASIC METABOLIC [id number] 08:22:00 Test Item Value Reference Range Interpretation [...] 0-0 (BEAKER) (test code = 413) POCT-GLUCOSE [id number] 21:40:00 Test Item Value Reference Range Interpretation Comments POC-GLUCOSE METER 159 mg/dL 70-110 H TESTED AT [facility] 67 ([facility]) (test code = [facility] 1538) [address] POCT-GLUCOSE [id number] 17:24:00 Test Item Value Reference Range Interpretation Comments POC-GLUCOSE METER 203 mg/dL 70-110 H [facility]) (test code = [facility] Mel[facility] 1538) [address] POCT-GLUCOSE [id number] 13:17:00 Test Item Value Reference Range Interpretation Comments POC-GLUCOSE METER 201 mg/dL 70-110 H TESTED AT [place] [address] ([facility]) (test code = [facility] Melodie [facility] 1538) [address] POCT-GLUCOSE [id number] 08:11:00 Test Item Value Reference Range Interpretation Comments POC-GLUCOSE METER 199 mg/dL 70-110 H TESTED AT [place] [address] ([facility]) (test code = [facility] 1538) [address] BASIC METABOLIC [id number] 07:40:00 Test Item Value Reference Range Interpretation [...] (BEAKER) (test code = 412) PLATELET COUNT ([facility]) (test 325 K/CU MM 150-450 code = 756) MEAN PLATELET VOLUME (AKER) 10.1 fL 9.4-12.4 (test code = 754) NUCLEATED RED BLOOD CELLS 0 /100 WBC 0-0 ([facility]) (test code = 413) POCT-GLUCOSE [id number] 23:55:00 Test Item Value Reference Range Interpretation Comments POC-GLUCOSE METER 198 mg/dL 70-110 H TESTED AT [place] [address] ([facility]) (test code = [facility] 1538) [address] POCT-GLUCOSE [id number] 22:53:00 Test Item Value Reference Range Interpretation Comments POC-GLUCOSE METER 205 mg/dL 70-110 H TESTED AT [place] [address] ([facility]) (test code = [facility] 1538) [address] POCT-GLUCOSE [id number] 18:28:00 Test Item Value Reference Range Interpretation Comments POC-GLUCOSE METER 252 mg/dL 70-110 H TESTED AT [place] [address] ([facility]) (test code = [facility] 1538) [id number] POCT-GLUCOSE [id number] 13:01:00 Test Item Value Reference Range Interpretation Comments POC-GLUCOSE METER 118 mg/dL 70-110 H TESTED AT [place] [address] ([facility]) (test code = [facility] 1538) [id number] BASIC METABOLIC [id number] 07:03:00 Test Item Value Reference Range Interpretation [...] NOT APPLICABLE FOR DIALYSIS PATIEN TS. POCT-GLUCOSE [id number] 21:53:00 Test Item Value Reference Range Interpretation Comments POC-GLUCOSE METER 189 mg/dL 70-110 H TESTED AT [place] [address] ([facility]) (test code = [facility] 1538) [id number] POCT-GLUCOSE [id number] 18:21:00 Test Item Value Reference Range Interpretation Comments POC-GLUCOSE METER 207 mg/dL 70-110 H TESTED AT [place] [address] ([facility]) (test code = [facility] 1538) [address]56 POCT-GLUCOSE [id number] 12:36:00 Test Item Value Reference Range Interpretation Comments POC-GLUCOSE METER 95 mg/dL 70-110 TESTED AT [place] [address] ([facility]) (test code = [facility] [address] 1538) BASIC METABOLIC [id number] 09:00:00 Test Item Value Reference Range Interpretation [...] H (BEAKER) (test code = 413) POCT-GLUCOSE [id number] 21:13:00 Test Item Value Reference Range Interpretation Comments POC-GLUCOSE METER 125 mg/dL 70-110 H TESTED AT [facility] 6720 (BEAKER) (test code = [facility] 1538) 64498 POCT-GLUCOSE [id number] 13:58:00 Test Item Value Reference Range Interpretation Comments POC-GLUCOSE METER 150 mg/dL 70-110 H TESTED AT [facility] 6720 (BEAKER) (test code = [facility] [place] [facility] 1538) 31136 POCT-GLUCOSE [id number] 09:25:00 Test Item Value Reference Range Interpretation Comments POC-GLUCOSE METER 67 mg/dL 70-110 L Notified R Lola BLOUNT/TESTED AT (BEAKER) (test code = [facility] 7703 0 POCT-GLUCOSE [id number] 09:25:00 Test Item Value Reference Range Interpretation Comments POC-GLUCOSE METER 65 mg/dL 70-110 L Notified R N MD/TESTED AT (BEAKER) (test code = [facility] 6720 [facility] 1538) [facility] 7703 0 BASIC METABOLIC [id number] 07:54:00 Test Item Value Reference Range Interpretation [...] 0-0 (AKER) (test code = 413) POCT-GLUCOSE [id number] 21:31:00 Test Item Value Reference Range Interpretation Comments POC-GLUCOSE METER 119 mg/dL 70-110 H TESTED AT [place] [address] ([facility]) (test code = [facility] 1538) 50896 POCT-GLUCOSE [id number] 17:15:00 Test Item Value Reference Range Interpretation Comments POC-GLUCOSE METER 117 mg/dL 70-110 H TESTED AT [place] [address] ([facility]) (test code = [facility] 1538) 19929 POCT-GLUCOSE [id number] 12:55:00 Test Item Value Reference Range Interpretation Comments POC-GLUCOSE METER 76 mg/dL 70-110 TESTED AT [place] [address] ([facility]) (test code = [facility] 49391 1538) BASIC METABOLIC [id number] 08:15:00 Test Item Value Reference Range Interpretation [...] NOT APPLICABLE FOR DIALYSIS PATIEN TS. POCT-GLUCOSE [id number] 08:11:00 Test Item Value Reference Range Interpretation Comments POC-GLUCOSE METER 101 mg/dL 70-110 TESTED AT [facility] 6720 ([facility]) (test code = [place] 1538) [address] CBC (HEMOGRAM ONLY)2019-06-09 06:58:00 Test Item Value [...] 0-0 (BEAKER) (test code = 413) POCT-GLUCOSE [id number] 20:40:00 Test Item Value Reference Range Interpretation Comments POC-GLUCOSE METER 116 mg/dL 70-110 H TESTED AT [place] [address] ([facility]) (test code = [facility] 1538) 9[address]83 POCT-GLUCOSE [id number] 17:32:00 Test Item Value Reference Range Interpretation Comments POC-GLUCOSE METER 122 mg/dL 70-110 H TESTED AT [place] [address] ([facility]) (test code = [facility] 1538) 31822 POCT-GLUCOSE [id number] 17:14:00 Test Item Value Reference Range Interpretation Comments POC-GLUCOSE METER 112 mg/dL 70-110 H TESTED AT [place] [address] ([facility]) (test code = [facility] 1538) 89963 POCT-GLUCOSE [id number] 16:56:00 Test Item Value Reference Range Interpretation Comments POC-GLUCOSE METER 219 mg/dL 70-110 H TESTED AT [place] [address] ([facility]) (test code = [facility] 1538) 02545 POCT-GLUCOSE [id number] 09:50:00 Test Item Value Reference Range Interpretation Comments POC-GLUCOSE METER 117 mg/dL 70-110 H TESTED AT [place] [address] ([facility]) (test code = [facility] 1538) [address] BASIC METABOLIC [id number] 07:14:00 Test Item Value Reference Range Interpretation [...] 0-0 (BEAKER) (test code = 413) POCT-GLUCOSE [id number] 21:59:00 Test Item Value Reference Range Interpretation Comments POC-GLUCOSE METER 78 mg/dL 70-110 TESTED AT [facility] 6720 ([facility]) (test code = [facility] [address] 1538) POCT-GLUCOSE [id number] 17:57:00 Test Item Value Reference Range Interpretation Comments POC-GLUCOSE METER 113 mg/dL 70-110 H TESTED AT [facility] 6720 ([facility]) (test code = [facility] [place] 1538) 70098 POCT-GLUCOSE [id number] 14:30:00 Test Item Value Reference Range Interpretation Comments POC-GLUCOSE METER 227 mg/dL 70-110 H TESTED AT [facility] 6720 (BEAKER) (test code = [facility] [place] 1538) [address] BASIC METABOLIC [id number] 08:20:00 Test Item Value Reference Range Interpretation [...] NOT APPLICABLE FOR DIALYSIS PATIEN TS. POCT-GLUCOSE [id number] 08:01:00 Test Item Value Reference Range Interpretation Comments POC-GLUCOSE METER 139 mg/dL 70-110 H TESTED AT [place] [address] (BEAKER) (test code = [facility] [place] 1538) [address] CBC (HEMOGRAM ONLY)2019-06-07 07:07:00 Test Item Value [...] 753) MEAN CORPUSCULAR HEMOGLOBIN 28.8 pg 25.7-32.2 ([facility]) (test code = 751) MEAN CORPUSCULAR HEMOGLOBIN CONC 30.1 GM/DL 32.3-36.5 L (AKER) (test code = 752) RED CELL DISTRIBUTION WIDTH 16.7 % 11.6-14.4 H ([facility]) (test code = 412) PLATELET COUNT ([facility]) (test 356 K/CU MM 150-450 code = 756) MEAN PLATELET VOLUME (AKER) 9.7 fL 9.4-12.4 (test code = 754) NUCLEATED RED BLOOD CELLS 0 /100 WBC 0-0 ([facility]) (test code = 413) POCT-GLUCOSE [id number] 22:52:00 Test Item Value Reference Range Interpretation Comments POC-GLUCOSE METER 271 mg/dL 70-110 H TESTED AT [place] [address] ([facility]) (test code = [facility] 1538) 73711 POCT-GLUCOSE [id number] 17:23:00 Test Item Value Reference Range Interpretation Comments POC-GLUCOSE METER 273 mg/dL 70-110 H TESTED AT [place] [address] ([facility]) (test code = [facility] 1538) 92837 POCT-GLUCOSE [id number] 12:33:00 Test Item Value Reference Range Interpretation Comments POC-GLUCOSE METER 107 mg/dL 70-110 TESTED AT [place] [address] ([facility]) (test code = [facility] 1538) 42521 BASIC METABOLIC [id number] 08:59:00 Test Item Value Reference Range Interpretation [...] 0-0 (BEAKER) (test code = 413) POCT-GLUCOSE [id number] 21:40:00 Test Item Value Reference Range Interpretation Comments POC-GLUCOSE METER 137 mg/dL 70-110 H TESTED AT [place] [address] ([facility]) (test code = [facility] 1538) [address] POCT-GLUCOSE [id number] 18:27:00 Test Item Value Reference Range Interpretation Comments POC-GLUCOSE METER 219 mg/dL 70-110 H TESTED AT [facility] 6720 ([facility]) (test code = [facility] [place] 1538) 23148 POCT-GLUCOSE [id number] 13:10:00 Test Item Value Reference Range Interpretation Comments POC-GLUCOSE METER 168 mg/dL 70-110 H TESTED AT [facility] 6720 (BEAKER) (test code = [facility] 1538) 03731 POCT-GLUCOSE [id number] 10:22:00 Test Item Value Reference Range Interpretation Comments POC-GLUCOSE METER 161 mg/dL 70-110 H TESTED AT [facility] 6720 (BEAKER) (test code = [facility] 1538) 95058 BASIC METABOLIC [id number] 04:41:00 Test Item Value Reference Range Interpretation [...] S NOT APPLICABLE FOR DIALYSIS PATIEN TS. [id number] 04:40:00 Test Item Value Reference Range Interpretation [...] 0-0 (BEAKER) (test code = 413) POCT-GLUCOSE [id number] 21:42:00 Test Item Value Reference Range Interpretation Comments POC-GLUCOSE METER 176 mg/dL 70-110 H TESTED AT [place] [address] ([facility]) (test code = [facility] 1538) 17843 POCT-GLUCOSE [id number] 14:38:00 Test Item Value Reference Range Interpretation Comments POC-GLUCOSE METER 179 mg/dL 70-110 H TESTED AT [place] [address] ([facility]) (test code = [facility] 1538) 51962 POCT-GLUCOSE [id number] 09:07:00 Test Item Value Reference Range Interpretation Comments POC-GLUCOSE METER 155 mg/dL 70-110 H TESTED AT [place] [address] ([facility]) (test code = [facility] 1538) 83460 BASIC METABOLIC [id number] 07:49:00 Test Item Value Reference Range Interpretation [...] S NOT APPLICABLE FOR DIALYSIS PATIEN TS. [id number] 07:44:00 Test Item Value Reference Range Interpretation [...] 0-0 (BEAKER) (test code = 413) POCT-GLUCOSE [id number] 22:34:00 Test Item Value Reference Range Interpretation Comments POC-GLUCOSE METER 246 mg/dL 70-110 H TESTED AT [facility] 6720 ([facility]) (test code = [facility] [place] [facility] 1538) 00227 POCT-GLUCOSE [id number] 18:15:00 Test Item Value Reference Range Interpretation Comments POC-GLUCOSE METER 201 mg/dL 70-110 H TESTED AT [place] [address] ([facility]) (test code = [facility] 1538) 94287 POCT-GLUCOSE [id number] 13:12:00 Test Item Value Reference Range Interpretation Comments POC-GLUCOSE METER 211 mg/dL 70-110 H TESTED AT [place] [address] ([facility]) (test code = [facility] 1538) 38906 POCT-GLUCOSE [id number] 08:17:00 Test Item Value Reference Range Interpretation Comments POC-GLUCOSE METER 204 mg/dL 70-110 H TESTED AT [place] [address] ([facility]) (test code = [facility] 1538) 95364 BASIC METABOLIC [id number] 08:05:00 Test Item Value Reference Range Interpretation [...] S NOT APPLICABLE FOR DIALYSIS PATIEN TS. [id number] 08:04:00 Test Item Value Reference Range Interpretation [...] 0-0 (BEAKER) (test code = 413) POCT-GLUCOSE [id number] 22:17:00 Test Item Value Reference Range Interpretation Comments POC-GLUCOSE METER 154 mg/dL 70-110 H TESTED AT [place] [address] ([facility]) (test code = [facility] [place] 1538) 7[address]78 POCT-GLUCOSE [id number] 22:14:00 Test Item Value Reference Range Interpretation Comments POC-GLUCOSE METER 172 mg/dL 70-110 H TESTED AT [place] [address] ([facility]) (test code = [facility] [place] 1538) 52632 POCT-GLUCOSE [id number] 17:34:00 Test Item Value Reference Range Interpretation Comments POC-GLUCOSE METER 187 mg/dL 70-110 H TESTED AT [place] [address] ([facility]) (test code = [facility] 1538) 06918 POCT-GLUCOSE [id number] 12:28:00 Test Item Value Reference Range Interpretation Comments POC-GLUCOSE METER 192 mg/dL 70-110 H TESTED AT [place] [address] ([facility]) (test code = [facility] 1538) 40159 POCT-GLUCOSE [id number] 07:43:00 Test Item Value Reference Range Interpretation Comments POC-GLUCOSE METER 132 mg/dL 70-110 H TESTED AT [place] [address] ([facility]) (test code = [facility] 1538) 63757 POCT-GLUCOSE [id number] 21:47:00 Test Item Value Reference Range Interpretation Comments POC-GLUCOSE METER 255 mg/dL 70-110 H TESTED AT [place] [address] ([facility]) (test code = [facility] 1538) 60912 POCT-GLUCOSE [id number] 11:45:00 Test Item Value Reference Range Interpretation Comments POC-GLUCOSE METER 159 mg/dL 70-110 H TESTED AT [place] [address] ([facility]) (test code = [facility] 1538) 38051 [id number] 11:17:00 Test Item Value Reference Range Interpretation Comments FERRITIN (AKER) (test code = 361) 572 ng/mL 5-275 H IRON, TIBC, % SAT. (WITHOUT FERRITIN)2019-06-01 10:57:00 Test Item Value Reference Range Interpretation Comments IRON (BEAKER) (test code = 547) 15.0 ug/dL 40.0-160.0 L TOTAL IRON BINDING CAPACITY 169 ug/dL 250-450 L (BEAKER) (test code = 769) IRON % SATURATION (2) (BEAKER) 9 % 20-55 L (test code = 2590) POCT-GLUCOSE [id number] 08:44:00 Test Item Value Reference Range Interpretation Comments POC-GLUCOSE METER 170 mg/dL 70-110 H TESTED AT [place] [address] ([facility]) (test code = [facility] 1538) 42783 BASIC METABOLIC [id number] 04:42:00 Test Item Value Reference Range Interpretation [...] S NOT APPLICABLE FOR DIALYSIS PATIEN TS. [id number] 03:47:00 Test Item Value Reference Range Interpretation Comments MAGNESIUM (BEAKER) (test code = 2.1 mg/dL 1.6-2.6 627) CBC W/PLT COUNT & AUTO [id number] 03:36:00 Test Item Value Reference Range Interpretation [...] PERCENT (BEAKER) (test code = 2801) POCT-GLUCOSE [id number] 22:05:00 Test Item Value Reference Range Interpretation Comments POC-GLUCOSE METER 91 mg/dL 70-110 TESTED AT [place] [address] ([facility]) (test code = [facility] [place] [facility] [address] 1538) POCT-GLUCOSE [id number] 18:37:00 Test Item Value Reference Range Interpretation Comments POC-GLUCOSE METER 102 mg/dL 70-110 TESTED AT [place] [address] ([facility]) (test code = [facility] [place] [facility] 1538) 78151 POCT-GLUCOSE [id number] 12:26:00 Test Item Value Reference Range Interpretation Comments POC-GLUCOSE METER 113 mg/dL 70-110 H TESTED AT [place] [address] ([facility]) (test code = [facility] [place] [facility] 1538) 37298 POCT-GLUCOSE [id number] 08:07:00 Test Item Value Reference Range Interpretation Comments POC-GLUCOSE METER 73 mg/dL 70-110 TESTED AT [facility] 6720 (BEAKER) (test code = [place] [address] 1538) BLOOD [id number] 08:01:00 Test Item Value Reference Range Interpretation Comments CULTURE (BEAKER) (test No growth in 5 days code = 1095) BLOOD [id number] 08:01:00 Test Item Value Reference Range Interpretation Comments CULTURE (BEAKER) (test No growth in 5 days code = 1095) CBC W/PLT COUNT & AUTO [id number] 06:59:00 Test Item Value Reference Range Interpretation [...] (BEAKER) (test code = 2801) BASIC METABOLIC [id number] 06:27:00 Test Item Value Reference Range Interpretation [...] S NOT APPLICABLE FOR DIALYSIS PATIEN TS. [id number] 06:18:00 Test Item Value Reference Range Interpretation Comments MAGNESIUM (BEAKER) 1.6 mg/dL 1.6-2.6 Specimen slightly (test code = 627) hemolyzed URINALYSIS W/ REFLEX URINE [id number] 23:41:00 Test Item Value Reference Range Interpretation [...] 516) SOURCE(BEAKER) (test code = 2795) POCT-GLUCOSE [id number] 21:42:00 Test Item Value Reference Range Interpretation Comments POC-GLUCOSE METER 139 mg/dL 70-110 H TESTED AT [place] [address] ([facility]) (test code = [facility] 1538) 51661 POCT-GLUCOSE [id number] 20:39:00 Test Item Value Reference Range Interpretation Comments POC-GLUCOSE METER 65 mg/dL 70-110 L TESTED AT [place] [address] ([facility]) (test code = [facility] [address] 1538) POCT-GLUCOSE [id number] 17:54:00 Test Item Value Reference Range Interpretation Comments POC-GLUCOSE METER 78 mg/dL 70-110 TESTED AT [place] [address] ([facility]) (test code = [facility] [address] 1538) CBC W/PLT COUNT & AUTO [id number] 10:44:00 Test Item Value Reference Range Interpretation Comments WHITE BLOOD CELL COUNT ([facility]) 10.1 K/ L 3.5-10.5 (test code [...] 3438) Received comment: User comments: Slide comments:POCT-GLUCOSE [id number] 07:50:00 Test Item Value Reference Range Interpretation Comments POC-GLUCOSE METER 70 mg/dL 70-110 TESTED AT [facility] 6720 (BEAKER) (test code = [facility] [place] [facility] [address] 1538) BASIC METABOLIC [id number] 06:36:00 Test Item Value Reference Range Interpretation [...] S NOT APPLICABLE FOR DIALYSIS PATIEN TS. [id number] 06:33:00 Test Item Value Reference Range Interpretation Comments MAGNESIUM (BEAKER) (test code = 2.2 mg/dL 1.6-2.6 627) POCT-GLUCOSE [id number] 22:28:00 Test Item Value Reference Range Interpretation Comments POC-GLUCOSE METER 120 mg/dL 70-110 H TESTED AT [place] [address] (BEAKER) (test code = [facility] 1538) 80232 POCT-GLUCOSE [id number] 19:33:00 Test Item Value Reference Range Interpretation Comments POC-GLUCOSE METER 166 mg/dL 70-110 H TESTED AT [place] [address] ([facility]) (test code = [facility] 1538) 71113 POCT-GLUCOSE [id number] 13:30:00 Test Item Value Reference Range Interpretation Comments POC-GLUCOSE METER 168 mg/dL 70-110 H TESTED AT [place] [address] ([facility]) (test code = [facility] 1538) 48211 POCT-GLUCOSE [id number] 07:37:00 Test Item Value Reference Range Interpretation Comments POC-GLUCOSE METER 117 mg/dL 70-110 H TESTED AT [place] [address] ([facility]) (test code = [facility] 1538) 59052 BASIC METABOLIC [id number] 06:57:00 Test Item Value Reference Range Interpretation [...] S NOT APPLICABLE FOR DIALYSIS PATIEN TS. [id number] 06:52:00 Test Item Value Reference Range Interpretation [...] 0-0 (BEAKER) (test code = 413) POCT-GLUCOSE [id number] 21:52:00 Test Item Value Reference Range Interpretation Comments POC-GLUCOSE METER 174 mg/dL 70-110 H TESTED AT [facility] 6720 ([facility]) (test code = [place] 1538) 53567 POCT-GLUCOSE [id number] 17:58:00 Test Item Value Reference Range Interpretation Comments POC-GLUCOSE METER 151 mg/dL 70-110 H TESTED AT [facility] 6720 ([facility]) (test code = [facility] 1538) 83043 POCT-GLUCOSE [id number] 12:35:00 Test Item Value Reference Range Interpretation Comments POC-GLUCOSE METER 225 mg/dL 70-110 H TESTED AT [facility] 67 (BEAKER) (test code = [place] 1538) 47727 HEMOGLOBIN [id number] 08:34:00 Test Item Value Reference Range Interpretation Comments HEMOGLOBIN A1C (BEAKER) (test code = 6.3 % 4.3-6.1 H 368) POCT-GLUCOSE [id number] 07:56:00 Test Item Value Reference Range Interpretation Comments POC-GLUCOSE METER 141 mg/dL 70-110 H TESTED AT [facility] 6720 (BEAKER) (test code = [place] 1538) 54852 CBC (HEMOGRAM ONLY)2019-05-28 06:12:00 Test Item Value [...] (BEAKER) (test code = 413) BASIC METABOLIC [id number] 06:02:00 Test Item Value Reference Range Interpretation [...] NOT APPLICABLE FOR DIALYSIS PATIEN TS. POCT-GLUCOSE [id number] 22:24:00 Test Item Value Reference Range Interpretation Comments POC-GLUCOSE METER 171 mg/dL 70-110 H TESTED AT [facility] 6720 ([facility]) (test code = [facility] 1538) 70522 HEPATITIS B [id number] 20:01:00 Test Item Value Reference Range Interpretation Comments HEPATITIS B CORE TOTAL ANTIBODY Nonreactive Nonreactive (BEAKER) (test code = 497) HEPATITIS B SURFACE ANTIBODY < mIU/mL <8.0 (AKER) (test code = 647) HEPATITIS B SURFACE ANTIGEN (2) Nonreactive Nonreactive (BEAKER) (test code = 2585) POCT-GLUCOSE [id number] 17:37:00 Test Item Value Reference Range Interpretation Comments POC-GLUCOSE METER 158 mg/dL 70-110 H TESTED AT [facility] 6720 ([facility]) (test code = [facility] 1538) 40879 CBC (HEMOGRAM ONLY)2019-05-27 16:37:00 Test Item Value [...] (BEAKER) (test code = 413) BASIC METABOLIC [id number] 16:28:00 Test Item Value Reference Range Interpretation [...] NOT APPLICABLE FOR DIALYSIS PATIEN TS. POCT-GLUCOSE [id number] 12:29:00 Test Item Value Reference Range Interpretation Comments POC-GLUCOSE METER 155 mg/dL 70-110 H TESTED AT [facility] 6720 (BEAKER) (test code = [facility] 1538) 113[address] [id number] 09:20:00 Test Item Value Reference Range Interpretation Comments PHOSPHORUS (BEAKER) (test code = 3.4 mg/dL 2.3-4.7 604) [id number] 09:20:00 Test Item Value Reference Range Interpretation Comments MAGNESIUM (BEAKER) (test code = 2.0 mg/dL 1.6-2.6 627) PH, [id number] 08:49:00 Test Item Value Reference Range Interpretation Comments PH ARTERIAL (BEAKER) (test code = 383) 7.35 7.35-7.45 POCT-GLUCOSE [id number] 08:11:00 Test Item Value Reference Range Interpretation Comments POC-GLUCOSE METER 137 mg/dL 70-110 H TESTED AT [facility] 6720 (BEAKER) (test code = [facility] 1538) 14968 BASIC METABOLIC [id number] 03:25:00 Test Item Value Reference Range Interpretation [...] PATIEN TS. CBC W/PLT COUNT & AUTO [id number] 03:11:00 Test Item Value Reference Range Interpretation [...] H PERCENT (BEAKER) (test code = 2801) [id number] 02:48:00 Test Item Value Reference Range Interpretation Comments MAGNESIUM (BEAKER) 2.2 mg/dL 1.6-2.6 Specimen slightly (test code = 627) hemolyzed [id number] 02:48:00 Test Item Value Reference Range Interpretation Comments PHOSPHORUS (BEAKER) 3.9 mg/dL 2.3-4.7 Specimen slightly (test code = 604) hemolyzed PH, [id number] 02:08:00 Test Item Value Reference Range Interpretation Comments PH ARTERIAL (BEAKER) (test code = 383) 7.41 7.35-7.45 RAD, CHEST, 1 VIEW, NON [id number] 22:15:00Reason for exam:->line placementShould this be performed [...] surgical changes.Additional findings: None. Signed: [facility]red[facility] Ver[facility] Date/Time: 05/26/2019 22:15:38 [facility] [id number] 17:25:00 Test Item Value Reference Range Interpretation [...] NOT APPLICABLE FOR DIALYSIS PATIEN TS. POCT-GLUCOSE [id number] 17:09:00 Test Item Value Reference Range Interpretation Comments POC-GLUCOSE METER 233 mg/dL 70-110 H TESTED AT [facility] [address] ([facility]) (test code = [place] [facility] 1538) [address] TROPONIN [id number] 12:31:00 Test Item Value Reference Range Interpretation [...] failure, acidosis, acute neurological disease, and persistent tachyarrhythmia.[id number] 12:26:00 Test Item Value Reference Range Interpretation Comments CALCIUM (BEAKER) (test code = 697) 7.7 mg/dL 8.4-10.2 L [id number] 12:24:00 Test Item Value Reference Range Interpretation Comments POTASSIUM (BEAKER) (test code = 4.4 meq/L 3.5-5.1 379) [id number] 12:24:00 Test Item Value Reference Range Interpretation Comments MAGNESIUM (BEAKER) (test code = 2.2 mg/dL 1.6-2.6 627) [id number] 12:24:00 Test Item Value Reference Range Interpretation Comments SODIUM (CONRAD) (test code = 381) 128 meq/L 136-145 L POCT-GLUCOSE [id number] 12:15:00 Test Item Value Reference Range Interpretation Comments POC-GLUCOSE METER 281 mg/dL 70-110 H TESTED AT [facility] 67[address] (CONRAD) (test code = [place] 1538) [address] PH, [id number] 11:52:00 Test Item Value Reference Range Interpretation Comments PH ARTERIAL (CONRAD) (test code = 383) 7.36 7.35-7.45 RAD, CHEST, 1 VIEW, NON [id number] 08:05:00Reason for exam:->central line placementFINAL REPORT CLINICAL [...] silhouette with sternotomy wires. Signed: Bolivar Villagran [facility] Verified Date/Time:05/26/2019 08:05:54 Reading Location: [address] Neuro Reading Room TROPONIN [id number] 06:42:00 Test Item Value Reference Range Interpretation [...] acidosis, acute neurological disease, and persistent tachyarrhythmia.TROPONIN [id number] 06:41:00 Test Item Value Reference Range Interpretation [...] acute neurological disease, and persistent tachyarrhythmia.BASIC METABOLIC [id number] 06:23:00 Test Item Value Reference Range Interpretation [...] NOT APPLICABLE FOR DIALYSIS PATIEN TS. PROTHROMBIN TIME/[id number] 06:20:00 Test Item Value Reference Range Interpretation [...] INR is2.5-3.5 for patients wiht mechanical heart valves.[id number] 06:17:00 Test Item Value Reference Range Interpretation Comments PHOSPHORUS (BEAKER) (test code = 4.5 mg/dL 2.3-4.7 604) [id number] 06:17:00 Test Item Value Reference Range Interpretation Comments MAGNESIUM (BEAKER) (test code = 2.4 mg/dL 1.6-2.6 627) CBC W/PLT COUNT & AUTO [id number] 06:03:00 Test Item Value Reference Range Interpretation [...] (test code = 2801) TSH/FREE T4 IF [id number] 22:17:00 Test Item Value Reference Range Interpretation Comments THYROID STIMULATING HORMONE 3.33 uIU/mL 0.35-4.94 (BEAKER) (test code = 772) TROPONIN [id number] 21:59:00 Test Item Value Reference Range Interpretation Comments TROPONIN I (BEAKER) (test code = 1.04 ng/mL 0.00-0.03 397) Troponin I (TnI) levels [...] H (BEAKER) (test code = 700) C-REACTIVE [id number] 21:51:00 Test Item Value Reference Range Interpretation Comments C-REACTIVE PROTEIN (BEAKER) (test 13.88 mg/dL 0.00-0.50 H code = 676) COMPREHENSIVE METABOLIC [id number] 21:51:00 Test Item Value Reference Range Interpretation [...] PATIEN TS. CBC W/PLT COUNT & AUTO [id number] 21:20:00 Test Item Value Reference Range Interpretation [...] 0-1 H PERCENT (BEAKER) (test code = 4029)
[2022-04-30 16:05] LABS: Protime INR 1.02
[2022-04-30 16:17] LABS: ALT/SGPT 30 U/L (12-78); AST/SGOT 26 U/L (15-37); Albumin 3.2 g/dL (3.4-5.0); Alkaline Phosphatase 98 U/L (45-117); BUN Blood Urea Nitrogen 24 mg/dL (7-18); Bicarbonate 33 mmol/L (21-32); Bilirubin Direct 0.2 mg/dL (0-0.2); Bilirubin Total 0.4 mg/dL (0.2-1.0); Glomerular Filtration Rate 19 ml/min (=/>90); Glucose Level 151 mg/dL (74-106); Magnesium 2.2 mg/dL (1.8-2.4); Potassium 4.5 mmol/L (3.5-5.1); Protein, Total 7.4 g/dL (6.4-8.2); Sodium Level 136 mmol/L (136-145)
[2022-04-30 16:19] LABS: Troponin High Sensitivity 283.7 pg/mL (<58.9)
[2022-04-30 16:22] LABS: Absolute Lymphocytes (CBC) 0.4 K/uL (0.7-4.9); Hematocrit 39.8 % (39.6-49.0); Lymphocytes % 6.7 % (15.3-44.8); RBC Red Blood Cell Count 4.06 M/uL (4.33-5.43)
[2022-04-30 16:46] LABS: NT PRO-BNP > 175000 pg/mL (<125)
--- NOTE | 2022-04-30 16:59 | RAD REPORT ---
EXAM DESCRIPTION: RAD - Chest Single View - 04/30/2022 4:18 pm CLINICAL HISTORY: ABDOMINAL DISTENTION COMPARISON: Portable 03/01/2022 TECHNIQUE: AP portable chest image was obtained 04/30/2022 4:18 pm . FINDINGS: Lung volumes are low. Moderate-size right pleural effusion is present increasing overall r ight hemithorax opacification. Pleural and parenchymal opacities on the right are not clearly differe nt. Left lung field shows no new finding. Low lung volumes and cardiomegaly limit lung parenchymal as sessment. CABG surgical changes are present. Defibrillator is in place. Trachea is midline. No pneumo thorax. No acute bony abnormality seen. No acute aortic findings suspected. IMPRESSION: Right hemithorax pleural and parenchymal opacification similar to March 01 imaging. Cardiomegaly is similar to prior imaging. Overall chest exam is stable from March 01.
--- NOTE | 2022-04-30 18:30 | ER ---
Nurse's Notes [facility] Name: Benji Villalpando Age: 66 yrs Sex: Male : 1955 Arrival Date: 04/30/2022 Time: 14:21 Bed 19 Private MD: Diagnosis: Ascitis Presentation: 04/30 14:20 Chief complaint: EMS states: patient has Hx of CHF, cirrhosis, type II diabetes, and jg9 CKD-patient is c/o heaviness/fullness in his abdomen Hx of ascites with Hx of paracentesis. Coronavirus screen: Vaccine status:. Ebola Screen: Patient negative for fever greater than or equal to 101.5 degrees Fahrenheit, and additional compatible Ebola Virus Disease symptoms Patient denies exposure to infectious person. Patient denies travel to an Ebola-affected area in the 21 days before illness onset. Initial Sepsis Screen: Does the patient meet any 2 criteria? No. Patient's initial sepsis screen is negative. Does the patient have a suspected source of infection? No. Patient's initial sepsis screen is negative. Risk Assessment: Do you want to hurt yourself or someone else? Patient reports no desire to harm self or others. Onset of symptoms is unknown. 14:20 Method Of Arrival: EMS: [facility] jg9 14:20 Acuity: MILADYS 3 jg9 Triage Assessment: 14:20 General: Appears in no apparent distress. Behavior is calm, cooperative. Pain: jg9 Complains of pain in abdomen. EENT: No deficits noted. Neuro: No deficits noted. Cardiovascular: No deficits noted. Respiratory: Reports chronic 6Lpm o2 therapy at home. GI: Abdomen is noted to have ascites, Bowel sounds hypoactive in right upper quadrant, left upper quadrant, right lower quadrant and left lower quadrant Abd is rigid X 4 quads. Reports fullness/heaviness. 14:20 : No deficits noted. jg9 14:20 : No deficits noted. Derm: No deficits noted. Derm: No deficits noted. jg9 Musculoskeletal: No deficits noted. Musculoskeletal: No deficits noted. Historical: - Allergies: 15:03 No Known Allergies; jg9 - PMHx: 15:03 Anemia; CHF; chronic kidney disease; Diabetes - NIDDM; Dialysis T-T-S; Hyperlipidemia; jg9 Hypertension; Hypothyroidism; Myocardial infarction; RENAL FAILURE; - PSHx: 15:03 fistula; heart bypass; pacemaker; jg9 - Immunization history:: Adult Immunizations unknown. - Social history:: Smoking status: unknown. Screenin:06 Abuse screen: Denies threats or abuse. Denies injuries from another. Nutritional jg9 screening: No deficits noted. Tuberculosis screening: No symptoms or risk factors identified. Fall Risk None identified. Assessment: 15:05 Reassessment: No changes from previously documented assessment. Patient and/or family jg9 updated on plan of care and expected duration. Pain level reassessed. Patient is alert, oriented x 3, equal unlabored respirations, skin warm/dry/pink. 22:38 Neuro: Level of Consciousness is awake, alert, Oriented to person, place, time, kd3 situation. Respiratory: Airway is patent Trachea midline Respiratory effort is even, unlabored. 05/01 00:22 General: Appears in no apparent distress. Behavior is calm, cooperative. Neuro: Level kd3 of Consciousness is awake, alert, obeys commands, Oriented to person, place, time, situation. Cardiovascular: Patient's skin is warm and dry. Respiratory: Airway is patent Trachea midline Respiratory effort is even, unlabored. Vital Signs: 04/30 14:20 BP 100 / 61; Pulse 77; Resp 15; Temp 97.7(A); Pulse Ox 86% on R/A; Weight 72.57 kg (R); jg9 Height 5 ft. 5 in. (165.10 cm); 15:00 BP 94 / 60; Pulse 76; Resp 18 S; Pulse Ox 95% on 6 lpm NC; jg9 15:30 BP 103 / 75; Pulse 74; Resp 14; Pulse Ox 97% on 6 lpm NC; jg9 16:00 BP 101 / 59; Pulse 75; Resp 14; Pulse Ox 98% on 6 lpm NC; jg9 16:33 BP 98 / 62; Pulse 73; Resp 14; Pulse Ox 90% on 6 lpm NC; ld1 17:00 BP 106 / 69; Pulse 74; Resp 15 S; Pulse Ox 98% on 6 lpm NC; jg9 17:45 BP 101 / 60; Pulse 74; Resp 15 S; Pulse Ox 94% on 6 lpm NC; jg9 18:45 BP 114 / 73; Pulse 73; Resp 17 S; Pulse Ox 100% on 6 lpm NC; jg9 22:38 BP 115 / 71; Pulse 74; Resp 18; Pulse Ox 95% on 5 lpm NC; kd3 05/01 00:23 BP 105 / 80; Pulse 73; Resp 18; Pulse Ox 95% on 5 lpm NC; kd3 04/30 14:20 Body Mass Index 26.63 (72.57 kg, 165.10 cm) 9 ED Course: 04/30 14:21 Patient arrived in ED. cl3 14:24 Geovanny Parsons PA is PHCP. cp 14:24 Eugene Simons MD is Attending Physician. cp 14:51 Shruti Matthews, RN is Primary Nurse. ld1 15:03 Triage completed. j9 15:06 Arm band placed on right wrist. jg9 15:06 Patient has correct armband on for positive identification. Bed in low position. Call j9 light in reach. Side rails up X 1. 15:48 Inserted saline lock: 20 gauge in right antecubital area, using aseptic technique. zm Blood collected. 15:48 Basic Metabolic Panel Sent. zm 15:48 CBC with Diff Sent. zm 15:48 LFT's Sent. zm 15:48 Magnesium Sent. zm 15:48 NT PRO-BNP Sent. zm 15:48 PT-INR Sent. zm 15:48 Troponin HS Sent. zm 15:48 COVID-19 SARS RT PCR (Document "Date of Onset" if Symptomatic) Sent. zm 16:20 XRAY Chest (1 view) In Process Unspecified. EDMS 19:12 Primary Nurse role handed off by Shruti Matthews, RN kd3 19:12 Inga Garcia, RN is Primary Nurse. kd3 21:34 Initiated Pt for transfer to [facility], spoke to Luz. wm 22:11 Pt accepted for transfer by Dr. Garcia \\T\\ 22:05, spoke to Luz Jimenez. wm 05/01 00:22 No provider procedures requiring assistance completed. Patient transferred, IV remains kd3 in place. Administered Medications: No medications were administered Medication: 04/30 17:58 VIS not applicable for this client. jg9 Outcome: 18:30 ER care complete, transfer ordered by . cp 05/01 00:22 Transferred by ground EMS kd3 Condition: stable Discharge instructions given to patient, family, Instructed on discharge instructions, follow up and referral plans. 00:24 Patient left the ED. kd3 Signatures: Dispatcher [employer] EDMS Geovanny Parsons PA PA cp Lewis, Charde cl3 Shruti Matthews, RN RN ld1 Bernarda Antonio Kyli, RN RN kd3 Cara Johnson RN RN jg9 Tiffanie Tsai Corrections: (The following items were deleted from the chart) 04/30 15:05 14:20 Neuro: No deficits noted. jg9 jg9 15:05 14:20 GI: Abdomen is noted to have ascites, Bowel sounds hypoactive in right upper jg9 quadrant, left upper quadrant, right lower quadrant and left lower quadrant Abd is rigid X 4 quads. Reports fullness/heaviness jg9 16:35 16:33 BP 98 / 62; Pulse 73bpm; Resp 14bpm; ld1 ld1 16:40 16:33 BP 98 / 62; Pulse 73bpm; Resp 14bpm; Pulse Ox 95% 6 lpm Nasal Cannula; ld1 ld1
--- NOTE | 2022-04-30 18:30 | EDPHYS ---
Physician Documentation [facility] Name: Benji Villalpando Age: 66 yrs Sex: Male : 1955 Arrival Date: 04/30/2022 Time: 14:21 Bed 19 Private MD: ED Physician Eugene Simons HPI: 04/30 14:30 This 66 yrs old Male presents to ER via EMS with complaints of Fluid in cp abdomen. 14:30 The patient presents with abdominal distention that is diffuse. cp 14:30 Onset: The symptoms/episode began/occurred gradually. Associated signs and symptoms: cp Pertinent positives: shortness of breath, Pertinent negatives: chest pain, diarrhea, fever, vomiting. Historical: - Allergies: 15:03 No Known Allergies; jg9 - PMHx: 15:03 Anemia; CHF; chronic kidney disease; Diabetes - NIDDM; Dialysis T-T-S; Hyperlipidemia; jg9 Hypertension; Hypothyroidism; Myocardial infarction; RENAL FAILURE; - PSHx: 15:03 fistula; heart bypass; pacemaker; jg9 - Immunization history:: Adult Immunizations unknown. - Social history:: Smoking status: unknown. ROS: 14:35 Constitutional: Negative for body aches, chills, fever, poor PO intake. cp 14:35 ENT: Negative for drainage from ear(s), ear pain, sore throat, difficulty swallowing, cp difficulty handling secretions. 14:35 Cardiovascular: Negative for chest pain, edema, palpitations. 14:35 Respiratory: Positive for shortness of breath. 14:35 Abdomen/GI: Positive for abdominal distension, Negative for abdominal pain, vomiting, diarrhea, constipation. 14:35 Neuro: Negative for altered mental status, headache, weakness. 14:35 All other systems are negative. cp Exam: 14:45 Constitutional: The patient appears in no acute distress, alert. cp 14:45 Head/Face: Normocephalic, atraumatic. cp 14:45 Eyes: Periorbital structures: appear normal, Conjunctiva: normal, no exudate, no cp injection, Sclera: no appreciated abnormality, Lids and lashes: appear normal, bilaterally. 14:45 ENT: External ear(s): are unremarkable, Nose: is normal, Mouth: Lips: dry, Oral mucosa: moist, Posterior pharynx: Airway: no evidence of obstruction, patent. 14:45 Neck: ROM/movement: is normal, is supple, without pain, no range of motions limitations. 14:45 Chest/axilla: Inspection: normal, Palpation: is normal, no crepitus, no tenderness. 14:45 Cardiovascular: Rate: normal, Rhythm: regular, Edema: is not appreciated, JVD: is not appreciated. 14:45 Respiratory: the patient does not display signs of respiratory distress, Respirations: labored breathing, is not present, shallow respirations, are not present, Breath sounds: decreased breath sounds, that are mild, throughout, stridor, is not appreciated, wheezing: is not appreciated. 14:45 Abdomen/GI: Inspection: distension, that is moderate, in the abdomen diffusely, Bowel sounds: active, all quadrants, Palpation: abdomen is soft and non-tender, in all quadrants. 14:45 Neuro: Orientation: to person, place \\T\\ time. Mentation: is normal. 15:24 ECG was reviewed by the Attending Physician. cp Vital Signs: 14:20 BP 100 / 61; Pulse 77; Resp 15; Temp 97.7(A); Pulse Ox 86% on R/A; Weight 72.57 kg (R); jg9 Height 5 ft. 5 in. (165.10 cm); 15:00 BP 94 / 60; Pulse 76; Resp 18 S; Pulse Ox 95% on 6 lpm NC; jg9 15:30 BP 103 / 75; Pulse 74; Resp 14; Pulse Ox 97% on 6 lpm NC; jg9 16:00 BP 101 / 59; Pulse 75; Resp 14; Pulse Ox 98% on 6 lpm NC; jg9 16:33 BP 98 / 62; Pulse 73; Resp 14; Pulse Ox 90% on 6 lpm NC; ld1 17:00 BP 106 / 69; Pulse 74; Resp 15 S; Pulse Ox 98% on 6 lpm NC; jg9 17:45 BP 101 / 60; Pulse 74; Resp 15 S; Pulse Ox 94% on 6 lpm NC; jg9 18:45 BP 114 / 73; Pulse 73; Resp 17 S; Pulse Ox 100% on 6 lpm NC; jg9 22:38 BP 115 / 71; Pulse 74; Resp 18; Pulse Ox 95% on 5 lpm NC; kd3 05/01 00:23 BP 105 / 80; Pulse 73; Resp 18; Pulse Ox 95% on 5 lpm NC; kd3 04/30 14:20 Body Mass Index 26.63 (72.57 kg, 165.10 cm) jg9 MDM: 04/30 14:24 Patient medically screened. 18:00 Data reviewed: vital signs, nurses notes, lab test result(s), EKG, radiologic studies, cp plain films. 18:00 Test interpretation: by ED physician or midlevel provider: ECG, plain radiologic cp studies. 18:30 Physician consultation: Gregor Christin was contacted at 18:15, regarding admission, to the telemetry unit. patient's condition, after a discussion of the case, a recommendation for transfer for higher level of care is made, in the emergency department to see patient at 18:15, for paracentesis due to inability to have done over weekend if admitted to hospital. 04/30 14:24 Order name: Basic Metabolic Panel; Complete Time: 17:11 04/30 17:11 Interpretation: Normal except: CO2 33; GLUC 151; BUN 24; CRE 3.40; GFR 19; CA 8.3. 04/30 14:24 Order name: CBC with Diff; Complete Time: 17:11 04/30 17:12 Interpretation: Normal except: RBC 4.06; HGB 12.1; MCHC 30.5; RDW 17.8; RAMAN% 79.1; LYM% cp 6.7; MN% 13.3; LYMA 0.4. 04/30 14:24 Order name: LFT's; Complete Time: 17:11 04/30 14:24 Order name: Magnesium; Complete Time: 17:11 04/30 14:24 Order name: NT PRO-BNP; Complete Time: 17:11 04/30 14:24 Order name: PT-INR; Complete Time: 16:19 04/30 14:24 Order name: Troponin HS; Complete Time: 17:11 04/30 14:24 Order name: XRAY Chest (1 view); Complete Time: 17:11 04/30 14:24 Order name: EKG; Complete Time: 14:25 04/30 14:24 Order name: Cardiac monitoring; Complete Time: 15:22 04/30 14:52 Order name: COVID-19 SARS RT PCR (Document "Date of Onset" if Symptomatic); Complete ld1 Time: 18:48 04/30 18:48 Interpretation: Reviewed. cp 04/30 18:36 Order name: BIPAP cp 04/30 21:21 Order name: Arterial Blood Gas; Complete Time: 22:04 [facility] 04/30 22:05 Order name: Lactate [facility] 04/30 14:24 Order name: EKG - Nurse/Tech; Complete Time: 15:22 04/30 14:24 Order name: IV Saline Lock; Complete Time: 15:48 04/30 14:24 Order name: Labs collected and sent; Complete Time: 15:48 04/30 14:24 Order name: O2 Per Protocol; Complete Time: 15:22 04/30 14:24 Order name: O2 Sat Monitoring; Complete Time: 15:22 cp EC:24 Rate is 75 beats/min. Rhythm is regular. FL interval is normal. QRS interval is cp prolonged. QT interval is normal. T waves are Inverted in lead aVL. Interpreted by me. Reviewed by me. Administered Medications: No medications were administered Disposition Summary: 04/30/22 18:30 Transfer Ordered Transfer Location: [facility] cp Reason: Higher level of care cp Condition: Stable cp Problem: an acute exacerbation cp Symptoms: have improved cp Accepting Physician: Doctor(05/01/22 00:24) [email or web address] Diagnosis - Ascitis cp Forms: - Medication Reconciliation Form cp - SBAR form cp Addendum: 05/03/2022 10:53 Co-signature as Attending Physician, Eugene Simons MD. r n Signatures: Dispatcher [employer] Eugene Jaramillo MD MD rn Page, Corey, PA PA cp Girish Thomas MD MD 7 Inga Garcia RN RN kd3 Cara Johnson RN RN jg9 Corrections: (The following items were deleted from the chart) 05/01 00:24 06 18:30 Doctor salomon 3 05/01 11:53 04/30 14:30 Associated signs and symptoms: Pertinent positives: shortness of breath, cp cp
[2022-04-30 21:35] LABS: Arterial Blood Carboxyhemoglob 1.3 % (0-1.5); Blood Gas Oxyhemoglobin 93.4 % (94-97); Blood O2 Saturation 95.5 % (92-98.5)
[2022-05-01 00:39] VITALS: TEMP 97.7
[2022-05-01 01:05] VITALS: O2SAT 95
[2022-05-01 01:07] VITALS: BP 105/80
--- NOTE | 2022-05-01 17:28 | EKG ---
Test Date: 2022-04-30 Test Time: 15:20:10 Project Management Consultant: TATO MEASUREMENT RESULTS: Intervals: Rate: 75 [place]: 192 QRSD: 114 QT: 406 QTc: 453 [place]: P: 32 [place]: 192 QRS: 213 T: 15 INTERPRETIVE STATEMENTS: Normal sinus rhythm Right superior axis deviation Abnormal ECG Compared to ECG 03/01/2022 20:43:12 Right superior axis now present Left-axis deviation no longer present T-wave abnormality no longer present Electronically Signed On 05-01-22 17:27:15 CDT by Tony Mhaoney
== END 2022-05-01 00:24 | disposition short-term general hospital (02) ==
LOC: ER 14:19
DX: R18.8 Other ascites (principal); Z20.822 Contact with and (suspected) exposure to COVID-19; E11.22 Type 2 diabetes mellitus with diabetic chronic kidney disease; I13.2 Hypertensive heart and chronic kidney disease with heart failure and with stage 5 chronic kidney disease, or end stage renal disease; N18.6 End stage renal disease; I50.9 Heart failure, unspecified; Z99.2 Dependence on renal dialysis; Z95.0 Presence of cardiac pacemaker; Z95.1 Presence of aortocoronary bypass graft
CPT/HCPCS: 93005; 85025; 80048; 36415; 83735; 85610; 80076; 83605; 84484; 83880; 71045; 82805; U0003; 99285

== ENCOUNTER 2022-05-03 07:21 | Inpatient (IN) | payer OTHER ==
--- OUTSIDE RECORDS SUMMARY | 2022-05-03 07:31 | XMS REPORT | Continuity of Care Document ---
:1955 Author Organization [facility] t Address [address] [place] [address] Care Team Providers Name Role Phone COFFMAN ISABELLA NITIN Primary Care Physician Unavailable Hallie Coffman Attending Clinician Unavailable NACHO CANTOR Attending Clinician Unavailable SHIN ARAIZA Attending Clinician Unavailable MONICA SIMS Attending Clinician UnavailHarshad Jara Attending Clinician Unavailable UMAIR ROSSI Attending Clinician Unavailable BRADEN PERRYITOPE Attending Clinician Unavailable Ez KOHLER Attending Clinician Unavailable Melodie BERRY Attending Clinician Unavailable Humberto Villagran Attending Clinician Unavailable DUKE Attending Clinician Unavailable Chiquita Attending Clinician Unavailable Graciela HEWITT Attending Clinician Unavailable RODRIGUE Attending Clinician Unavailable MEGHNA Admitting Clinician Unavailable NACHO CANTOR Admitting Clinician Unavailable SHIN ARAIZA Admitting Clinician Unavailable AMELIZABETH Admitting Clinician Unavailable ISAAC Admitting Clinician Unavailable UNDEFINED Admitting Clinician Unavailable KNOW Admitting Clinician Unavailable Ehsan_ Admitting Clinician Unavailable Graciela HEWITT Admitting Clinician Unavailable Payers Payer Name Policy Type Policy Number Effective Date Expiration Date Ganesh allred TEXANPLUS HMO ALL [id number] 2019 00:00:00 WELLCARE [place] [id number] 2019 00:00:00 HUMANA MEDICARE [id number] 2021 ADV 00:00:00 WELLARIEL [place] [id number] 2020 STAR PLUS 00:00:00 WELLCARE OF [place] - [id number] 2019 TEXANPLUS 00:00:00 (MEDICARE REPLACEMENT/ADVANT AGE - HMO) Problems This patient has no known problems. Allergies, Adverse Reactions, Alerts Allergy Allergy Status Severity Reaction(s) Onset Inactive Treating Comm ents Source Name Type Date Date Clinician No Known DA Active U 2017-0 [facility] All[facility]ie 5-16 Clear s 00:00: Padron 00 [facility] No Known DA Active U 0 [facility] Allergie 5-16 Clear s 00:00: Padron 00 [facility] NO KNOWN Drug Active [facility] ALLERGIE Class ity of S [facility] NO KNOWN Allergy Active [facility] ALLERGIE S Medications Ordered Filled Start Stop Current Ordering Indication Dosage Frequency Signature Comments Components Source Medication Medication Date Date Medication? Clinician (SIG) Name Name Aspirin 81 Aspirin 81 Yes Isabella 1 tablet Common Coffman [facility] Clopidogrel Clopidogrel Yes Isabella 1 tablet Common Bisulfate Bisulfate Coffman Spir it [facility] Basaglar Basaglar Yes Isabella inject 10 Common KwikPen KwikPen Coffman units [facility] Tradjenta Tradjenta Yes Isabella 1 tablet Common Coffman [facility] Senna Senna Yes Isabella 2 tablets Common Coffman at bedtime Spirit as needed [facility] Lantus Lantus Yes Isabella as Common SoloStar SoloStar Coffman directed Sp pee [facility] Aspirin Aspirin Yes Isabella TAKE 1 Commo n Coffman TABLET BY Spirit MOUTH - [facility] EVERY DAY [facility] Atorvastati Atorvastati Yes Isabella TAKE 1 Common n Calcium n Calcium Coffman TABLET BY Spirit MOUTH AT - [facility]I BEDTIME [facility] Midodrine Midodrine Yes Isabella 1 tablet Common HCl HCl Coffman Spirit - [facility] Lorazepam Lorazepam Yes Isabella 1 tablet Common Coffman as needed Spirit [facility] Synthroid Synthroid Yes Isabella 1 tablet Common Coffman on an Spirit empty - [facility] stomach in [facility] Atorvastati Atorvastati Yes Isabella 1 tablet Common n Calcium n Calcium Coffman Spir it - [facility] Vital Signs Vital Name Observation Time Observation [...] Type Clinicians Facility Department ID 2022-04-30 Outpatient LACHELLE Coffman [facility] [id number] Common 10:27:01 [facility] 2022-04-28 Outpatient LACHELLE Coffman [facility] [id number] Common 16:26:00 [facility] 2022-04-13 Outpatient Coffman, STLMLC STLMLC [id number] Common 13:29:00 Isabella [facility] 2022-02-15 Outpatient Coffman, STLMLC STLMLC [id number] Common 13:14:00 Isabella [facility] 2022-02-10 Outpatient Coffman, STLMLC STLMLC [id number] Common 09:24:01 Isabella [facility] 2022-01-22 Outpatient Coffman, STLMLC STLMLC [id number] Common 10:07:00 Isabella [facility] 2021-12-02 Outpatient Coffman, STLMLC STLMLC [id number] Common 14:22:20 Isabella 48111 [facility] 2021-12-02 Outpatient Coffman, STLMLC STLMLC [id number] Common 13:47:46 Isabella 14504 [facility] 2021-12-02 Outpatient Coffman, STLMLC STLMLC [id number] Common 13:38:19 Isabella 12779 [facility] 2021-12-02 Outpatient Coffman, STLMLC STLMLC [id number] Common 13:27:09 Isabella 93608 [facility] 2021-12-02 Outpatient Coffman, STLMLC STLMLC [id number] Common 12:41:17 Isabella 63822 [facility] 2021-12-02 Outpatient Coffman, STLMLC STLMLC [id number] Common 12:35:51 Isabella 46379 [facility] 2021-12-02 Outpatient Coffman, STLMLC STLMLC [id number] Common 12:35:15 Isabella 23033 [facility] 2021-12-02 Outpatient Coffman, STLMLC STLMLC [id number] Common 12:07:23 Isabella 29599 [facility] 2021-12-02 Outpatient Coffman, STLMLC STLMLC [id number] Common 11:39:10 Isabella 77260 [facility] 2021-12-02 Outpatient Coffman, STLMLC STLMLC [id number] Common 11:20:23 Isabella 93442 [facility] 2021-12-02 Outpatient Coffman, STLMLC STLMLC [id number] Common 11:18:51 Isabella 77624 [facility] 2021-12-02 Outpatient Coffman, STLMLC STLMLC [id number] Common 11:16:22 Isabella 81555 [facility] 2021-12-02 Outpatient Coffman, STLMLC STLMLC [id number] Common 11:05:05 Isabella 48707 [facility] 2020-11-14 Inpatient ER KALDIS, [facility] Gastro [id number] [facility] 21:46:00 ARBEN 2019-05-04 Inpatient [facility] [id number] [facility] H 17:34:38 2022-04-28 2022-04-28 ambulatory STLMLC STLMLC [id number] Common 00:00:00 00:00:00 [facility] 2022-04-28 2022-04-28 ambulatory STLMLC STLMLC [id number] Common 00:00:00 00:00:00 [facility] 2022-04-22 2022-04-22 ambulatory STLMLC STLMLC [id number] Common 00:00:00 00:00:00 [facility] 2022-02-24 2022-02-24 ambulatory STLMLC STLMLC [id number] Common 00:00:00 00:00:00 [facility] 2022-02-09 2022-02-09 ambulatory STLMLC STLMLC [id number] Common 00:00:00 00:00:00 [facility] 2022-01-22 2022-01-22 ambulatory STLMLC STLMLC [id number] Common 00:00:00 00:00:00 [facility] 2022-01-18 2022-01-18 ambulatory STLMLC STLMLC [id number] Common 00:00:00 00:00:00 [facility] 2022-01-18 2022-01-18 ambulatory STLMLC STLMLC [id number] Common 00:00:00 00:00:00 [facility] 2021-12-28 2021-12-28 Outpatient EL SLE SLEH [id number] [facility] 00:00:00 00:00:00 2021-12-22 2021-12-22 ambulatory STLMLC STLMLC [id number] Common 00:00:00 00:00:00 [facility] 2021-11-27 2021-11-27 Outpatient EL SLE SLEH [id number] SLEH 00:00:00 00:00:00 2021-10-26 2021-10-26 ambulatory STLMLC STLMLC [id number] Common 00:00:00 00:00:00 [facility] 2021-10-14 2021-10-14 ambulatory STLMLC STLMLC [id number] Common 00:00:00 00:00:00 [facility] 2021-10-12 2021-10-12 Outpatient EL DALLIN [facility] SLEH [id number] SLEH 00:00:00 23:59:00 HUMERA 2021-10-12 2021-10-12 Emergency ER ROSSI, [facility] Emergency [id number] SLE 09:11:00 16:00:00 YANIRA 2021-10-08 2021-10-08 ambulatory STLMLC STLMLC [id number] Common 00:00:00 00:00:00 [facility] 2021-10-05 2021-10-05 ambulatory STLMLC STLMLC [id number] Common 00:00:00 00:00:00 [facility] 2021-09-30 2021-09-30 ambulatory STLMLC STLMLC [id number] Common 00:00:00 00:00:00 [facility] 2021-08-11 2021-08-11 Outpatient STLMLC STLMLC [id number] Common 00:00:00 00:00:00 [facility] 2021-08-03 2021-08-03 Outpatient [facility] [id number] [facility] 00:00:00 23:59:00 Yordy Medicin ruben 2021-08-03 2021-08-03 Emergency ER SLEH Emergency [id number] SLEH 11:01:00 11:01:00 2021-07-29 2021-07-29 Outpatient STLMLC STLMLC [id number] Common 00:00:00 00:00:00 [facility] 2021-07-23 2021-07-23 Outpatient EL SLE SLEH [id number] SLEH 00:00:00 00:00:00 2021-07-23 2021-07-23 Outpatient STLMLC STLMLC [id number] Common 00:00:00 00:00:00 [facility] 2021-07-14 2021-07-14 Outpatient STLMLC STLMLC [id number] Common 00:00:00 00:00:00 [facility] 2021-07-08 2021-07-08 Outpatient STLMLC STLMLC [id number] Common 00:00:00 00:00:00 [facility] 2021-07-08 2021-07-08 Outpatient STLMLC STLMLC [id number] Common 00:00:00 00:00:00 [facility] 2021-06-26 2021-06-26 Outpatient EL SABEROLA, SLSL SLSL [id number] SLSL 00:00:00 00:00:00 HUMERA 2021-06-26 2021-06-26 Outpatient SABEROLA, SLSL SLSL [id number] SLSL 00:00:00 00:00:00 HUMERA 2021-06-26 2021-06-26 Outpatient EL SLSL SLSL [id number] SLSL 00:00:00 00:00:00 2021-06-22 2021-06-22 Outpatient STLMLC STLMLC [id number] Common 00:00:00 00:00:00 [facility] 2021-06-22 2021-06-22 Outpatient STLMLC STLMLC [id number] Common 00:00:00 00:00:00 [facility] 2021-06-22 2021-06-22 Outpatient STLMLC STLMLC [id number] Common 00:00:00 00:00:00 [facility] 2021-06-19 2021-06-19 Outpatient EL SLEH SLEH [id number] SLEH 00:00:00 00:00:00 2021-06-19 2021-06-19 Outpatient STLMLC STLMLC [id number] Common 00:00:00 00:00:00 [facility] 2021-06-05 2021-06-05 Outpatient EL SLEH SLE [id number] SLEH 00:00:00 00:00:00 2021-05-25 2021-05-25 Emergency ER SLE Emergency [id number] SLEH 15:33:00 15:33:00 2021-05-25 2021-05-25 Outpatient STLMLC STLMLC [id number] Common 00:00:00 00:00:00 [facility] 2021-05-22 2021-05-22 Outpatient STLMLC STLMLC [id number] Common 00:00:00 00:00:00 [facility] 2021-05-21 2021-05-21 Outpatient STLMLC STLMLC [id number] Common 00:00:00 00:00:00 [facility] 2021-04-09 2021-04-09 Outpatient STLMLC STLMLC [id number] Common 00:00:00 00:00:00 [facility] 2021-01-21 2021-01-21 Outpatient STLMLC STLMLC [id number] Common 00:00:00 00:00:00 [facility] 2021-01-07 2021-01-07 Outpatient STLMLC STLMLC [id number] Common 00:00:00 00:00:00 [facility] 2020-12-30 2020-12-30 Outpatient EL SLEH SLEH [id number] SLEH 00:00:00 00:00:00 2020-12-26 2020-12-26 Outpatient EL SLEH SLEH [id number] [facility]H 00:00:00 00:00:00 2020-12-19 2020-12-19 Inpatient Espinoza Villagran HCACL DAYS [id number] [facility] 13:00:00 09:41:06 36 [facility] 2020-12-18 2020-12-18 Outpatient EL SLEH SLEH [id number] SLEH 00:00:00 00:00:00 2020-11-10 2020-11-10 Outpatient STLMLC STLMLC [id number] Common 00:00:00 00:00:00 [facility] 2020-10-08 2020-10-08 Outpatient STLMLC STLMLC [id number] Common 00:00:00 00:00:00 [facility] 2020-08-15 2020-08-15 Outpatient STLMLC STLMLC [id number] Common 00:00:00 00:00:00 [facility] 2020-06-25 2020-06-25 Out[facility] [id number] Common 15:00:00 15:00:[address] [facility] 2020-06-25 2020-06-25 Out[facility] [id number] Common 15:00:00 15:00:[address] [facility] 2020-06-18 2020-06-23 Inpatient Espinoza Villagran HCACL DAYS [id number] [id number] [facility] 08:30:00 05:46:43 56 [facility] 2020-03-12 2020-03-12 Outpatient [facility] [id number] Common 13:45:00 13:45:[address] [facility] 2020-02-12 2020-02-12 Outpatient Melodie [facility] [id number] 09:00:00 09:00:00 CIERRA christy [facility] 2019-12-26 2019-12-26 Outpatient Jony-Cynthiao VFP VF [id number] [facility] 07:15:00 07:15:00 _A_AH [id number] Family Practic e 2019-12-26 2019-12-26 Outpatient Jony-Mbmarixao VFP VFP [id number] [place] [address] 07:15:00 07:15:00 _A_AH 47851 Family Practic e 2019-12-10 2019-12-10 Out[facility] [id number] Common 13:30:00 13:30:[address] [facility] 2019-09-26 2019-09-26 Outpatient [facility] [id number] Common 08:23:00 08:23:[address] [facility] 2019-09-20 2019-09-20 Outpatient [facility] [id number] Common 16:58:00 16:58:[address] [facility] 2019-08-10 2019-08-10 Outpatient [facility] [id number] Common 09:15:00 09:15:[address] [facility] 2019-07-11 2019-07-11 Outpatient [facility] [id number] Common 16:55:00 16:55:[address] [facility] 2019-07-11 2019-07-11 Outpatient [facility] [id number] Common 10:15:00 10:15:[address] [facility] 2019-07-06 2019-07-06 Outpatient [facility] [id number] Common 16:41:00 16:41:[address] [facility] 2019-05-04 2019-05-04 Outpatient [facility] [id number] 09:00:00 13:49:28 2019-05-04 2019-05-04 Inpatient E MHHH MHHH [id number] MHHH 12:18:00 10:21:00 2019-05-04 2019-05-04 LAQUITA Gilbetr [id number] [place] 09:00:00 09:00:00 t; speedy MAE & Physic i Allen HUSAIN Vascular ans Yvonne MAE M.D. [facility] 2019-04-20 2019-04-20 Outpatient [facility] [id number] Common 09:30:00 09:30:[address] [facility] 2019-02-27 2019-02-27 Outpatient [facility] [id number] Common 10:00:00 10:00:[address] [facility] 2019-01-24 2019-01-24 Outpatient [facility] [id number] Common 10:45:00 10:45:[address] [facility] 2019-01-10 2019-01-10 Outpatient [facility] [id number] Common 07:54:00 07:54:[address] [facility] 2018-11-15 2018-11-15 Outpatient [facility] [id number] Common 10:00:00 10:00:[address] [facility] 2018-10-12 2018-10-12 Outpatient [facility] [id number] Common 15:00:00 15:00:00 t Specialty/U Sp pee Specialty rology - [facility]Urology Clinic [facility] 2018-05-08 2018-05-08 Outpatient [facility] [id number] Common 08:20:00 08:20:[address] [facility] 2018-05-01 2018-05-01 Outpatient [facility] [id number] Common 08:46:00 08:46:[address] [facility] 2018-04-27 2018-04-27 Outpatient [facility] [id number] Common 09:00:00 09:00:[address] [facility] 2018-04-20 2018-04-20 Outpatient [facility] [id number] Common 13:36:00 13:36:[address] [facility] 2018-04-12 2018-04-12 Outpatient [facility] [id number] Common 16:11:00 16:11:[address] [facility] it [employer] [facility] 2018-04-10 2018-04-10 Outpatient Brazjad Sheikht 13 [id number] Common 14:45:00 14:45:00 [employer] [facility] [employer] [facility] Results Test Description Test Time Test Comments Results Result Comments Source POCT-GLUCOSE METER 2022-05-02 12:12:46 Test Item Value Reference Range Interpretation Comme nts POC-GLUCOSE METER (BEAKER) 135 mg/dL 70-110 H : TESTED AT [facility] [address] [facility] (test code = 1538) LINDA Ureña [place], [id number]: Supervising Editor News Reel/Techni elsie ID = [id number] for IRIS PAULINO Ruben U/S, [id number] 11:12:00DR STRIBLINGLabs to be ordered:->No Labs NeededReason for exam:->ascites, sob [facility] 1955 Sex: MFINAL REPORT Ultrasound guided paracentesis Clinical History: Ascites. Sedation: None. Superintendent Refuse Disposal: Klaudia Garcia PA-C Supervising Physician: Scott Alcazar MD Commissioned [employer] Officer: None. Estimated Blood Loss: < 1 mL. Specimen: 8800 mL of clear yellow fluid, samples sent to laboratory. Technique: Informed consent was obtained. The risks of pain, bleeding, infection, bowel perforation, injury to adjacent structures, and adverse medication reactions were discussed with the patient. After informed consent was obtained, the patient's abdomen was scanned. The right lower quadrant of the abdomen was selected for paracentesis. After the largest fluid pocket area was marked, and the anterior abdominal wall was evaluated with color Doppler to exclude presenceof blood vessels traversing the area, the skin was prepped and draped in the usual sterile manner. After local anesthesia was achieved with lidocaine, a 5 Citizen Of [place] one-step catheter was advanced into the peritoneal cavity under ultrasound guidance. After completion of drainage, the catheter was removed. There was no evidence of complication. Impression:Successful ultrasound guided paracentesis. Signed: Scott Alcazar Verified Date/Time: 05/02/2022 11:12:00 [place] Location: [facility] P006J Ultrasound [place] Room HEPATITIS B SURFACE [id number] 09:00:32 Test Item Value Reference Range Interpretation Comments HEPATITIS B SURFACE ANTIGEN (2) Nonreactive Nonreactive (BEAKER) (test code = 2585) Specimen is considered negative for HBsAg.POCT-GLUCOSE [id number] 18:29:24 Test Item Value Reference Range Interpretation Comments POC-GLUCOSE METER 126 mg/dL 70-110 H : TESTED A T [facility] 6720 (BEAKER) (test code = [facility] Fwd: Power [facility], 1538) [id number]: Supervising Editor News Reel/Techni elsie ID = [id number] for Adela Candelarioion POCT-GLUCOSE [id number] 12:40:12 Test Item Value Reference Range Interpretation Comments POC-GLUCOSE METER 153 mg/dL 70-110 H : TESTED A T [facility] 6720 (BEAKER) (test code = [facility] Fwd: Power [facility], 1538) [id number]: Supervising Editor News Reel/Techni elsie ID = [id number] for Mc Clain, Ireion BASIC METABOLIC [id number] 07:21:07 Test Item Value Reference Range Interpretation Comments SODIUM (BEAKER) 137 meq/L 136-145 (test code = 381) POTASSIUM (BEAKER) 5.0 meq/L 3.5-5.1 (test code = 379) CHLORIDE (BEAKER) 102 meq/L 98-107 (test code = 382) CO2 (BEAKER) (test 23 meq/L 22-29 code = 355) BLOOD UREA NITROGEN 26 mg/dL 7-21 H (BEAKER) (test code = 354) CREATININE (BEAKER) 3.67 mg/dL 0.57-1.25 H (test code = 358) GLUCOSE RANDOM 139 mg/dL 70-105 H (BEAKER) (test code = 652) CALCIUM (BEAKER) 8.4 mg/dL 8.4-10.2 (test code = 697) EGFR (BEAKER) (test 17 mL/min/1.73 ESTIMA NOVA GFR IS code = 1092) sq m NOT ACCURATE CREATININE CLEARANCE IN PREDICTING GLOMERULAR FILTRATION RATE . ESTIMATED GFR I S NOT APPLICABLE FOR DIALYSIS PATIEN TS. Supervising Editor News Reel ID - JORDAN MPOCT-GLUCOSE [id number] 06:05:40 Test Item Value Reference Range Interpretation Comments POC-GLUCOSE METER 155 mg/dL 70-110 H : TESTED A T [facility] 6720 (BEAKER) (test code = [place], 1538) [id number]: Supervising Editor News Reel/Techni elsie ID = [id number] for Alexandrea Coyle HEPATIC FUNCTION [id number] 03:50:49 Test Item Value Reference Range Interpretation Comments TOTAL PROTEIN (BEAKER) (test code = 6.9 gm/dL 6.0-8.3 770) ALBUMIN (BEAKER) (test code = 1145) 3.4 g/dL 3.5-5.0 L BILIRUBIN TOTAL (BEAKER) (test code 0.5 mg/dL 0.2-1.2 = 377) BILIRUBIN DIRECT (BEAKER) (test 0.3 mg/dL 0.1-0.5 code = 706) ALKALINE PHOSPHATASE (BEAKER) (test 89 U/L 40-150 code = 346) AST (SGOT) (BEAKER) (test code = 28 U/L 5-34 353) ALT (SGPT) (BEAKER) (test code = 23 U/L 6-55 347) Supervising Editor News Reel ID - JORDAN [id number] 03:50:49 Test Item Value Reference Range Interpretation Comments MAGNESIUM (BEAKER) (test code = 2.0 mg/dL 1.6-2.6 627) Supervising Editor News Reel ID - JORDAN MHIGH SENSITIVITY TROPONIN [id number] 03:46:06 Test Item Value Reference Range Interpretation Comments HIGH SENSITIVITY 255 pg/ml See_Comment H [Automated message] TROPONIN I (test code The sy stem which = [id number]) generated this result transmitted ref erence range: <=35. Th e reference range was not used to int erpret this result as normal/abnormal . Supervising Editor News Reel ID - JORDAN MThe PHYSICAL THERAPIST ASSISTANT STAT High Sensitivity Troponin-I results should be used in conjunction with other diagnostic information such as ECG, clinical observations and information, and patient symptoms to aid in the diagnosis of [place].PROTHROMBIN [id number] 03:36:08 Test Item Value Reference Range Interpretation Comments PROTIME (BEAKER) 14.4 seconds 11.9-14.2 H (test code = 759) INR (BEAKER) (test 1.14 See_Comment [Automat ed message] code = 370) The system Magisto generated this result transmitted ref erence range: <=5.90. The reference range was not used to int erpret this result as normal/abnormal . RECOMMENDED COUMADIN/WARFARIN INR THERAPY RANGESSTANDARD DOSE: 2.0 - 3.0 Includes: PROPHYLAXIS forvenous thrombosis, systemic embolization; TREATMENT for venous thrombosis and/or pulmonary embolus.HIGH RISK: Target INR is 2.5-3.5 for patients with mechanical heart valves.CBC W/PLT COUNT & AUTO DIFFERENTIAL 2022-05-01 03:21:02 Test Item Value Reference Range Interpretation Comments WHITE BLOOD CELL COUNT (BEAKER) 6.2 K/ L 3.5-10.5 (test code = 775) RED BLOOD CELL COUNT (BEAKER) 3.99 M/ L 4.63-6.08 L (test code = 761) HEMOGLOBIN (BEAKER) (test code = 11.8 GM/DL 13.7-17.5 L 410) HEMATOCRIT (BEAKER) (test code = 41.1 % 40.1-51.0 411) MEAN CORPUSCULAR VOLUME (BEAKER) 103.0 fL 79.0-92.2 H (test code = 753) MEAN CORPUSCULAR HEMOGLOBIN 29.6 pg 25.7-32.2 (BEAKER) (test code = 751) MEAN CORPUSCULAR HEMOGLOBIN CONC 28.7 GM/DL 32.3-36.5 L (BEAKER) (test code = 752) RED CELL DISTRIBUTION WIDTH 17.5 % 11.6-14.4 H (BEAKER) (test code = 412) PLATELET COUNT (BEAKER) (test 149 K/CU MM 150-450 L code = 756) MEAN PLATELET VOLUME (BEAKER) 11.4 fL 9.4-12.4 (test code = 754) NUCLEATED RED BLOOD CELLS 0 /100 WBC 0-0 (BEAKER) (test code = 413) NEUTROPHILS RELATIVE PERCENT 76 % (BEAKER) (test code = 429) LYMPHOCYTES RELATIVE PERCENT 6 % (BEAKER) (test code = 430) MONOCYTES RELATIVE PERCENT 16 % (BEAKER) (test code = 431) EOSINOPHILS RELATIVE PERCENT 1 % (BEAKER) (test code = 432) BASOPHILS RELATIVE PERCENT 0 % (BEAKER) (test code = 437) NEUTROPHILS ABSOLUTE COUNT 4.72 K/ L 1.78-5.38 (BEAKER) (test code = 670) LYMPHOCYTES ABSOLUTE COUNT 0.36 K/ L 1.32-3.57 L (BEAKER) (test code = 414) MONOCYTES ABSOLUTE COUNT (BEAKER) 1.01 K/ L 0.30-0.82 H (test code = 415) EOSINOPHILS ABSOLUTE COUNT 0.04 K/ L 0.04-0.54 (BEAKER) (test code = 416) BASOPHILS ABSOLUTE COUNT (BEAKER) 0.02 K/ L 0.01-0.08 (test code = 417) IMMATURE GRANULOCYTES-RELATIVE 1 % 0-1 PERCENT (BEAKER) (test code = 2801) POCT-GLUCOSE [id number] 02:41:21 Test Item Value Reference Range Interpretation Comments POC-GLUCOSE METER 134 mg/dL 70-110 H : TESTED A T [facility] 6720 (BEAKER) (test code = [facility], 1538) [address]: Supervising Editor News Reel/Techni elsie ID = [id number] for Alexandrea Coyle POCT-GLUCOSE [id number] 06:28:54 Test Item Value Reference Range Interpretation Comments POC-GLUCOSE METER 105 mg/dL 70-110 : TESTED A T [facility] [address] (BEAKER) (test code [facility], = 1538) [facility] 77 384: Supervising Editor News Reel/Techni elsie ID = [id number] for Surgers-Jeffrey Barrios BASIC METABOLIC [id number] 05:12:43 Test Item Value Reference Range Interpretation [...] S NOT APPLICABLE FOR DIALYSIS PATIEN TS. Supervising Editor News Reel ID - [id number] 20:38:00 Test Item Value Reference Range Interpretation Comments POC-GLUCOSE METER 104 mg/dL 70-110 : TESTED A T [facility] [address] (BEAKER) (test code [facility], = 1538) [facility] 77 384: Supervising Editor News Reel/Techni elsie ID = [id number] for Surgers-Jeffrey Barrios U/S, ABDOMINAL, [id number] 14:11:00DR STRIBLINGAbdomen limited area? Add comment if clarification is needed.->Abdomen Fluid CheckReason for exam:->AscitesE[facility] : 1955 Sex: MFINAL REPORT Abdominal ultrasound, limited. History: Evaluate for ascites. Comparison: None available. Discussion: Transverse and longitudinal images of the 4 quadrants of the abdomen were obtained demonstrating a mild amount of free fluid throughout. IMPRESSION: Mild ascites. Signed: Scott Alcazar Verified Date/Time: 02/17/2022 14:11:58 Reading Location: [facility] Radiology Reading Room POCT-GLUCOSE [id number] 11:47:49 Test Item Value Reference Range Interpretation Comments POC-GLUCOSE METER 100 mg/dL 70-110 : TESTED A T [facility] [address] (BEAKER) (test code [facility], = 1538) [place] [address] 384: Supervising Editor News Reel/Techni elsie ID = [id number] for Lila Hill POCT-GLUCOSE [id number] 06:57:59 Test Item Value Reference Range Interpretation Comments POC-GLUCOSE METER 104 mg/dL 70-110 : TESTED A T [facility] [address] (BEAKER) (test code [facility], = 1538) [place] [address] 384: Supervising Editor News Reel/Techni elsie ID = [id number] for Karli Coon BASIC METABOLIC [id number] 04:42:18 Test Item Value Reference Range Interpretation [...] S NOT APPLICABLE FOR DIALYSIS PATIEN TS. Supervising Editor News Reel ID - [id number] 01:28:53 Test Item Value Reference Range Interpretation Comments POC-GLUCOSE METER 111 mg/dL 70-110 H : TESTED A T [facility] 57455 (BEAKER) (test code [facility], = 1538) [facility] 77 384: Supervising Editor News Reel/Techni elsie ID = [id number] for Candi Patel POCT-GLUCOSE [id number] 21:49:02 Test Item Value Reference Range Interpretation Comments POC-GLUCOSE METER 82 mg/dL 70-110 : TESTED A T [facility] 48419 (BEAKER) (test code = [facility], 1538) [place] [address] 384: Supervising Editor News Reel/Techni elsie ID = [id number] for Karli Coon RAMON, CHEST, 1 VIEW, NON [id number] 15:02:00DR STRIBLINGReason for exam:- >sobShould this be performed at the bedside?->Yes [facility] : 1955 Sex: MFINAL [...] effusions, right greater than left. Signed: Scott Alcazareport Verified Date/Time: 02/16/2022 15:02:28 Reading Location: [facility] Women HEMOGLOBIN [id number] 14:52:52 Test Item Value Reference Range Interpretation Comments HEMOGLOBIN A1C (BEAKER) (test code = 5.6 % 4.3-6.1 368) Supervising Editor News Reel ID - VATPOCT-GLUCOSE [id number] 12:57:55 Test Item Value Reference Range Interpretation Comments POC-GLUCOSE METER 114 mg/dL 70-110 H : TESTED A T [facility] 26248 (BEAKER) (test code [facility], = 1538) [place] [address] 384: Supervising Editor News Reel/Techni elsie ID = [id number] for Reinaldo Paul HEPATITIS B SURFACE [id number] 07:41:02 Test Item Value Reference Range Interpretation Comments HEPATITIS B SURFACE ANTIBODY 339.9 mIU/mL <8.0 H (BEAKER) (test code = 647) Supervising Editor News Reel ID - BSPOCT-GLUCOSE [id number] 06:03:43 Test Item Value Reference Range Interpretation Comments POC-GLUCOSE METER 101 mg/dL 70-110 : TESTED A T [facility] [address]87[address] (BEAKER) (test code [facility], = 1538) [place] [address] 384: Supervising Editor News Reel/Techni elsie ID = [id number] for Jossy Adorno HEPATITIS B SURFACE [id number] 05:11:46 Test Item Value Reference Range Interpretation Comments HEPATITIS B SURFACE ANTIGEN (2) Nonreactive Nonreactive (BEAKER) (test code = 2585) Supervising Editor News Reel ID - [id number] 02:52:45 Test Item Value Reference Range Interpretation Comments POC-GLUCOSE METER 95 mg/dL 70-110 : TESTED A T [facility] 86866 (BEAKER) (test code = [facility], 1538) [place] [address] 384: Supervising Editor News Reel/Techni elsie ID = [id number] for Jossy Adorno POCT-GLUCOSE [id number] 21:08:00 Test Item Value Reference Range Interpretation Comments POC-GLUCOSE METER 89 mg/dL 70-110 : TESTED A T [facility] [address] (BEAKER) (test code = [facility], 1538) [facility] 77 384: Supervising Editor News Reel/Techni elsie ID = [id number] for Jossy Adorno COMPREHENSIVE METABOLIC [id number] 18:54:53 Test Item Value Reference Range Interpretation [...] S NOT APPLICABLE FOR DIALYSIS PATIEN TS. Supervising Editor News Reel ID - [id number] W/PLT COUNT & AUTO [id number] 18:13:18 Test Item Value Reference Range Interpretation [...] PERCENT (BEAKER) (test code = 2801) POCT-GLUCOSE [id number] 17:56:32 Test Item Value Reference Range Interpretation Comments POC-GLUCOSE METER 90 mg/dL 70-110 : TESTED A T [facility] 81159 (BEAKER) (test code = [facility], 1538) [place] [address] 384: Supervising Editor News Reel/Techni elsie ID = [id number] for N [place] chen POCT-GLUCOSE [id number] 17:20:59 Test Item Value Reference Range Interpretation Comments POC-GLUCOSE METER 54 mg/dL 70-110 L : TESTED A T [facility] 43480 (BEAKER) (test code = [facility], 1538) [place] [address] 384: Supervising Editor News Reel/Techni elsie ID = [id number] for N april, [place] BODY FLUID CULTURE + GRAM [id number] 10:11:18 Test Item Value Reference Range Interpretation Comments CULTURE (BEAKER) (test code = 1095) No growth U/S, [id number] 08:12:00DR STRIBLINGLabs to be ordered:->Body Fluid Culture (w/Gram Stain, C\T\S)Labs to be ordered:->Cell CountReason for exam:->abdominal distension [facility] : 1955 Sex: MFINAL REPORT Ultrasound guided paracentesis. Clinical History: Ascites. Sedation: None. Superintendent Refuse Disposal: Char Van PA-C [employer]: None. Estimated Blood Loss: < 1 cc. [...] was achieved with 2% lidocaine, a 5 Citizen [place] one-step catheter was advanced into the peritoneal cavity under ultrasoundguidance. After completion of drainage, the catheter was removed. There was no evidence of complication. Impression:Successful ultrasound guided paracentesis. Signed: Raymond Coffman MDReport Verified Date/Time: 10/13/2021 08:12:56 Reading Location: [address] Ultrasound Reading Room BODY FLUID CELL [...] (BEAKER) (test code = 2873) COMPREHENSIVE METABOLIC [id number] 10:23:58 Test Item Value Reference Range Interpretation [...] S NOT APPLICABLE FOR DIALYSIS PATIEN TS. Supervising Editor News Reel ID - JORDAN MB-TYPE NATRIURETIC FACTOR (BNP)2021-10-12 10:12:10 Test Item Value Reference Range Interpretation Comments B-TYPE NATRIURETIC PEPTIDE 4245 pg/mL 0-100 H (BEAKER) (test code = 700) Supervising Editor News Reel ID - JORDAN [id number] 10:01:45 Test Item Value Reference Range Interpretation [...] = 2801) BODY FLUID CULTURE + GRAM [id number] 14:14:13 Test Item Value Reference Range Interpretation Comments CULTURE (BEAKER) (test code No growth = 1095) GRAM STAIN RESULT (BEAKER) <1+ WBCs (test code = 1123) GRAM STAIN RESULT (BEAKER) No organisms seen (test code = 45435) POCT-GLUCOSE [id number] 12:15:12 Test Item Value Reference Range Interpretation Comments POC-GLUCOSE METER 165 mg/dL 70-110 H : [facility] (BEAKER) (test code = [place], 1538) [address]: Supervising Editor News Reel/Techni elsie ID = [id number] for ROBYN YANCEY BASIC METABOLIC [id number] 08:52:50 Test Item Value Reference Range Interpretation [...] S NOT APPLICABLE FOR DIALYSIS PATIEN TS. Supervising Editor News Reel ID - [id number] 08:49:00 Test Item Value Reference Range Interpretation Comments MAGNESIUM (BEAKER) (test code = 2.1 mg/dL 1.6-2.6 627) Supervising Editor News Reel ID - ADMINPOCT-GLUCOSE [id number] 07:57:04 Test Item Value Reference Range Interpretation Comments POC-GLUCOSE METER 178 mg/dL 70-110 H : TESTED A T [facility] 6720 (BEAKER) (test code = [facility], 1538) [address]: Supervising Editor News Reel/Techni elsie ID = [id number] for ROBYN YANCEY CBC W/PLT COUNT & AUTO [id number] 06:39:06 Test Item Value Reference Range Interpretation [...] PERCENT (BEAKER) (test code = 2801) POCT-GLUCOSE [id number] 22:12:47 Test Item Value Reference Range Interpretation Comments POC-GLUCOSE METER 157 mg/dL 70-110 H : TESTED A T [facility] 6720 (BEAKER) (test code = [facility], 1538) [address]: Supervising Editor News Reel/Techni elsie ID = [id number] for Pawel Reynolds POCT-GLUCOSE [id number] 17:45:52 Test Item Value Reference Range Interpretation Comments POC-GLUCOSE METER 159 mg/dL 70-110 H : TESTED A T [facility] 6720 (BEAKER) (test code = [facility], 1538) [address]: Supervising Editor News Reel/Techni elsie ID = [id number] for Erma Kingston [id number] 13:58:31Medical Cytology Report Case: [id number] Authorizing Provider: Mauricio Perry, Collected: 08/03/2021 02:35 PM Ordering Location: [facility] Emergency Department Received: 08/04/2021 09:29 AM Pathologist: Genevieve Mendez MD Specimen: Perit cabezas Fluid PERITONEAL FLUID (CYTOSPINS): - NEGATIVE FOR MALIGNANCY Signing Pathologist Direct Phone Line: [phone] signed by Genevieve Mendez MD on 08/04/2021 at 1:58 [id number], history of cirrhosis and ESRD.PERITONEAL FLUIDReceived 1600 mls brown fluid; prepared 4 cytospins. Performed. [facility], Department of Pathology, [address] [place] [address], [facility] [place], Department of Pathology, [address] [place] [address], [facility] [place], Department of Pathology, [address] [place] [address], UFTP-GLUCOSE [id number] 12:51:45 Test Item Value Reference Range Interpretation Comments POC-GLUCOSE METER 110 mg/dL 70-110 : TESTED A T [facility] 67 (BEAKER) (test code = [facility], 1538) [address]: Supervising Editor News Reel/Techni elsie ID = [id number] for Erma Kingston LACTATE DEHYDROGENASE (LDH), BODY [id number] 09:48:21 Test Item Value Reference Range Interpretation Comments LACTATE DEHYDROGENASE FLUID (BEAKER) 141 U/L (test code = 634) Absence of reference range indicates that normals have not been defined.Assay performance has not been validated for this type of specimen.Supervising Editor News Reel ID - DSENSONPROTEIN, BODY [id number] 09:44:56 Test Item Value Reference Range Interpretation Comments PROTEIN FLUID (BEAKER) (test code = 3.9 g/dL 579) Absence of reference range indicates that normals have not been defined.Assay performance has not been validated for this type of specimen.Supervising Editor News Reel ID - DSENSONBASIC METABOLIC [id number] 06:39:38 Test Item Value Reference Range Interpretation [...] S NOT APPLICABLE FOR DIALYSIS PATIEN TS. Supervising Editor News Reel ID - JORDAN [id number] 06:39:14 Test Item Value Reference Range Interpretation Comments MAGNESIUM (BEAKER) (test code = 2.0 mg/dL 1.6-2.6 627) Supervising Editor News Reel ID - JORDAN MCBC W/PLT COUNT & AUTO [id number] 06:11:35 Test Item Value Reference Range Interpretation [...] PERCENT (BEAKER) (test code = 2801) POCT-GLUCOSE [id number] 22:05:32 Test Item Value Reference Range Interpretation Comments POC-GLUCOSE METER 137 mg/dL 70-110 H : TESTED A T [facility] 6720 (BEAKER) (test code = [facility] [place], 1538) [address]: Supervising Editor News Reel/Techni elsie ID = [id number] for GINA SALAZAR HEPATITIS B SURFACE [id number] 21:43:34 Test Item Value Reference Range Interpretation Comments HEPATITIS B SURFACE ANTIGEN (2) Nonreactive Nonreactive (BEAKER) (test code = 2585) Specimen is considered negative for HBsAg.BODY FLUID CELL COUNT WITH [id number] 18:09:33 Test Item Value Reference Range Interpretation [...] FLUID (BEAKER) (test code = 2873) POCT-GLUCOSE [id number] 17:22:05 Test Item Value Reference Range Interpretation Comments POC-GLUCOSE METER 117 mg/dL 70-110 H : TESTED A T [facility] 6720 (BEAKER) (test code = [facility] [place], 1538) [address]: Supervising Editor News Reel/Techni elsie ID = [id number] for Erma Kingston U/S, [id number] 17:04:00DR STRIBLINGLabs to be ordered:->Body Fluid Culture (w/Gram Stain, C\T\S)Labs to be ordered:->CytologyLabs to be ordered:->Glucose+LDH+ProteinLabs to be ordered:->Cell CountReason for exam:->CHEST PAINReason for exam:->EDEMA [facility] 1955 Sex: MFINAL REPORT Ultrasound guided paracentesis Clinical History: Ascites. Sedation: None. Superintendent Refuse Disposal: Klaudia Garcia PA-C Supervising Physician: Brady Self MD [employer]ed [employer]: None. Estimated Blood Loss: < 1 mL. [...] anesthesia was achieved with lidocaine, a 5 Citizen [place] one-step catheter was advanced intothe peritoneal cavity under ultrasound guidance. After completion of drainage, the catheter was removed. There was no evidence of complication. Impression:Successful ultrasound guided paracentesis. Signed: Brady Self Verified Date/Time: 08/03/2021 17:04:47 Reading Location: [facility] B1 P006J Ultrasound Reading Room SARS-COV2/RT-PCR ([facility])2021-08-03 14:42:37 Test Item Value Reference Range Interpretation Comments SARS-COV2/RT-PCR Negative Negative The SARS-Co V-2 target (test code = nucleic acids a re not 9727500) detected in thi s specimen. Negative result [...] revoked sooner. Fact Sheet for Healthcare Providers: https://www.MePlease/Documents/Xpert%20Xpress%20SARS%20CoV-2/Fact%20Sheets/3023802%20SARS-COV -2%20HEALTHCARE%20PROVIDERS%20FACT%20SHEET.pdf Fact Sheet for Healthcare Patients: https://www.Club Venit/Documents/Xpert %20Xpress%20SARS%20CoV-2/Fact%20Sheets/3023801%57LNER-QBM-5%20PATIENT%20FACT%20 SHEET.pdfB-TYPE NATRIURETIC FACTOR (BNP)2021-08-03 12:54:07 Test Item Value Reference Range Interpretation Comments B-TYPE NATRIURETIC PEPTIDE 85909 pg/mL 0-100 H (ISAACAKER) (test code = 700) Supervising Editor News Reel ID - JOHAN FOperator ID - JOHAN FHIGH SENSITIVITY TROPONIN I 2021-08-03 12:37:33 Test Item Value Reference Range Interpretation Comments HIGH SENSITIVITY 43 pg/ml See_Comment H [Automated message] TROPONIN I (test code = The system which 1848670) generated this result transmitted ref erence range: <=35. Th e reference range was not used to int erpret this result as normal/abnormal . Supervising Editor News Reel ID Disha PRADO FThe PHYSICAL THERAPIST ASSISTANT STAT High Sensitivity Troponin-I results should be used in conjunction with other diagnostic information such as ECG, clinical observations and information, and patient symptoms to aid in the diagnosis of [place].COMPREHENSIVE METABOLIC [id number] 12:32:18 Test Item Value Reference Range Interpretation [...] S NOT APPLICABLE FOR DIALYSIS PATIEN TS. Supervising Editor News Reel ID Disha PRADO [id number] 12:30:52 Test Item Value Reference Range Interpretation Comments PHOSPHORUS (BEAKER) (test code = 2.6 mg/dL 2.3-4.7 604) Supervising Editor News Reel ID - JOHAN [id number] 12:30:51 Test Item Value Reference Range Interpretation Comments MAGNESIUM (BEAKER) (test code = 2.1 mg/dL 1.6-2.6 627) Supervising Editor News Reel ID - JOHAN FPROTHROMBIN [id number] 12:14:02 Test Item Value Reference Range Interpretation Comments PROTIME (BEAKER) 14.5 seconds 11.9-14.2 H (test code = 759) INR (BEAKER) (test 1.15 See_Comment [Automat ed message] code = 370) The system Magisto generated this result transmitted ref erence range: [...] = 2801) RAD, CHEST, 1 VIEW, NON [id number] 11:47:00DR STRIBLINGReason for exam:- >CHEST PAINReason for exam:->EDEMAShould this be performed at the bedside?->Yes[facility] : 1955 Sex: MFINAL REPORT RAD, CHEST, 1 VIEW, NON DEPT INDICATION: CHEST PAINEDEMA COMPARISON: Prior day's exam FINDINGS: Portable frontal view of the chest. IMPRESSION: Support Lines: Pacer device and sternotomy wires. Lungs and pleura: Bilateral effusions and adjacent atelectasis Nosignificant pneumothorax. Heart and mediastinum: Stable contours. Additional findings: None. Signed: Arlet Sr Verified Date/Time: 08/03/2021 11:47:09 Reading Location: [facility] Radiology Reading Room ALPHA FETOPROTEIN (AFP), TUMOR [id number] 13:27:00 Test Item Value Reference Range Interpretation Comments ALPHA-FETOPROTEIN (BEAKER) (test code < ng/mL <10.0 = 1094) Supervising Editor News Reel ID - NOV CBASI METABOLIC [id number] 13:06:00 Test Item Value Reference Range Interpretation [...] S NOT APPLICABLE FOR DIALYSIS PATIEN TS. Supervising Editor News Reel ID - NOV [facility] FUNCTION [id number] 13:05:00 Test Item Value Reference Range Interpretation [...] (test code = 9 U/L 6-55 347) Supervising Editor News Reel ID - PATRICIA CPROTHROMBIN TIME/[id number] 12:40:00 Test Item Value Reference Range Interpretation Comments PROTIME (BEAKER) 13.9 seconds 11.9-14.2 (test code = 759) INR (BEAKER) (test 1.09 See_Comment [Automat ed message] code = 370) The system Magisto generated this result transmitted ref erence range: [...] = 2801) BODY FLUID CULTURE + GRAM [id number] 13:49:00 Test Item Value Reference Range Interpretation Comments CULTURE (BEAKER) (test No growth code = 1095) GRAM STAIN RESULT <1+ White blood cells (BEAKER) (test code = seen 1123) GRAM STAIN RESULT No organisms seen (BEAKER) (test code = 268629) [id number] 18:55:00Medical Cytology Report Case: [id number] Authorizing Provider: Wicho Garcia MD Collected: 06/03/2021 05:57 PM Ordering Location: [place] [address] Dialysis Received: 06/04/2021 10:06 AM Nephrology Service Pathologist: Silvestre Le MD Specimen: Pleural, Right PLEURAL, RIGHT, FLUID (CYTOSPINS): - NEGATIVE FOR MALIGNANCY Signing Pathologist Direct Phone Line: [phone] signed by Silvestre Le MD on 06/05/2021 at 6:55 [id number] pleural effusion; PMH of HTN, HLD, CAD s/p ACB at [facility] on 05/18/2019, HFrEF 2/2 ICM with EF 25% s/p ICD, ESRD on iHD, cirrhosis, who presents with dyspnea, worsening BLE edema and genital painPLEURAL, RIGHT, FLUIDReceived 1000 ml bloody fluid; prepared 4 cytospinsPerformed. [facility],Department of Pathology, [address] [place] [address], [facility] [place], Department of Pathology, [address] [place] [address], [facility] [place], Department of Pathology, [address] [place] [address], WKLX-GLUCOSE [id number] 13:22:00 Test Item Value Reference Range Interpretation Comments POC-GLUCOSE METER 138 mg/dL 70-110 H : TESTED A T [facility] 6720 (BEAKER) (test code = [facility], 1538) 8[address]: Supervising Editor News Reel/Techni elsie ID = [id number] for YUKI STILESEDE U/S, [id number] 13:01:00DR STRIBLINGLaterality?->RightReason for exam:->moderate to large pleural effusionLabs to be Ordered:->Body Fluid Culture (w/Gram Stain, C\T\S)Labs to be Ordered:->CytologyLabs to be Ordered :->Cell CountLabs to be Ordered:->Glucose+LDH+Protein [facility] : 1955 Sex: MFINAL REPORT Exam: Ultrasound guided thoracentesis Clinical History: Right-sided Pleural Effusion Superintendent Refuse Disposal: Michelle Wilson PA-C Supervising Physician: Jos eGuadalupe Bernardo MD Consent: Benefits and risks were [...] Bernardo Verified Date/Time: 06/05/2021 13:01:06 Reading Location: [address] Ultrasound Reading Room POCT-GLUCOSE [id number] 08:36:00 Test Item Value Reference Range Interpretation Comments POC-GLUCOSE METER 219 mg/dL 70-110 H : TESTED A T [facility] 6720 (BEAKER) (test code = [facility] [place], 1538) [address]: Supervising Editor News Reel/Techni elsie ID = [id number] for EDE GASPAR BASIC METABOLIC [id number] 04:46:00 Test Item Value Reference Range Interpretation [...] S NOT APPLICABLE FOR DIALYSIS PATIEN TS. Supervising Editor News Reel ID - PIROSS [id number] 04:45:00 Test Item Value Reference Range Interpretation Comments MAGNESIUM (BEAKER) (test code = 2.1 mg/dL 1.6-2.6 627) Supervising Editor News Reel ID - PIROSS [id number] 04:45:00 Test Item Value Reference Range Interpretation Comments PHOSPHORUS (BEAKER) (test code = 2.9 mg/dL 2.3-4.7 604) Supervising Editor News Reel ID - JEVON LCBC W/PLT COUNT & AUTO [id number] 04:21:00 Test Item Value Reference Range Interpretation [...] PERCENT (BEAKER) (test code = 2801) POCT-GLUCOSE [id number] 22:21:00 Test Item Value Reference Range Interpretation Comments POC-GLUCOSE METER 242 mg/dL 70-110 H : TESTED A T [facility] 6720 (BEAKER) (test code = [facility] Fwd: Power [facility], 1538) 78[address]: Supervising Editor News Reel/Techni elsei ID = [id number] for Pee Solorio POCT-GLUCOSE [id number] 12:26:00 Test Item Value Reference Range Interpretation Comments POC-GLUCOSE METER 181 mg/dL 70-110 H : TESTED A T [facility] 6720 (BEAKER) (test code = [facility] Fwd: [facility], 1538) [address]: Supervising Editor News Reel/Techni elsie ID = [id number] for IB EBENMOZLEM LACTATE DEHYDROGENASE (LDH), BODY [id number] 10:04:00 Test Item Value Reference Range Interpretation Comments LACTATE DEHYDROGENASE FLUID (BEAKER) 117 U/L (test code = 634) Absence of reference range indicates that normals have not been defined.Assay performance has not been validated for this type of specimen.Supervising Editor News Reel ID - [id number], BODY [id number] 10:01:00 Test Item Value Reference Range Interpretation Comments PROTEIN FLUID (BEAKER) (test code = 3.2 g/dL 579) Absence of reference range indicates that normals have not been defined.Assay performance has not been validated for this type of specimen.Supervising Editor News Reel ID - [id number] [id number] 08:30:00 Test Item Value Reference Range Interpretation Comments POC-GLUCOSE METER 144 mg/dL 70-110 H : TESTED A T [facility] 6720 (BEAKER) (test code = [facility] [place], 1538) [address]: Supervising Editor News Reel/Techni elsie ID = [id number] for IB EBENM, OZLEM BASIC METABOLIC [id number] 05:13:00 Test Item Value Reference Range Interpretation [...] S NOT APPLICABLE FOR DIALYSIS PATIEN TS. Supervising Editor News Reel ID - [id number] 05:10:00 Test Item Value Reference Range Interpretation Comments MAGNESIUM (BEAKER) (test code = 2.1 mg/dL 1.6-2.6 627) Supervising Editor News Reel ID - [id number] 05:10:00 Test Item Value Reference Range Interpretation Comments PHOSPHORUS (BEAKER) (test code = 5.3 mg/dL 2.3-4.7 H 604) Supervising Editor News Reel ID - BSCBC W/PLT COUNT & AUTO [id number] 04:43:00 Test Item Value Reference Range Interpretation [...] = 2801) BODY FLUID CELL COUNT WITH [id number] 21:44:00 Test Item Value Reference Range Interpretation Comments APPEARANCE FLUID Slightly Bloody Clear A (BEAKER) (test code = 510) COLOR FLUID [place] Colorless, Straw A (BEAKER) (test code = 511) RBC FLUID (BEAKER) 20508 /cu mm See_Comment H [Automat ed (test [...] FLUID (BEAKER) (test code = 2873) POCT-GLUCOSE [id number] 21:31:00 Test Item Value Reference Range Interpretation Comments POC-GLUCOSE METER 181 mg/dL 70-110 H : [facility] (CONRAD) (test code = CIERA [place], 1538) [address]: Supervising Editor News Reel/Techni elsie ID = [id number] for Gi sset (pca2), Conn POCT-GLUCOSE [id number] 18:30:00 Test Item Value Reference Range Interpretation Comments POC-GLUCOSE METER 167 mg/dL 70-110 H : TESTED A T [facility] 6720 (CONRAD) (test code = CIERA Sewell [facility], 1538) [address]: Supervising Editor News Reel/Techni elsie ID = [id number] for CA STRO, LUCY RAD, CHEST, 1 VIEW, NON [id number] 18:20:00DR Jc for exam:- >post right sided thoracentesisShould this be performed [facility] e?->[facility] 1955 Sex: MFINAL [...] size. No acute bone abnormality. Signed: Poornima Russoeport Verified Date/Time: 06/03/2021 18:20:00 Reading Location: [address] Consult Reading Room POCT-GLUCOSE METER 2021-06-03 11:45:00 Test Item Value Reference Range Interpretation Comments POC-GLUCOSE METER 159 mg/dL 70-110 H : TESTED A T [facility] 6720 (BEAKER) (test code = RAYMONDAL Melodie [facility], 1538) 45[address]: Supervising Editor News Reel/Techni elsie ID = [id number] for Junie Gutiérrez POCT-GLUCOSE [id number] 09:28:00 Test Item Value Reference Range Interpretation Comments POC-GLUCOSE METER 163 mg/dL 70-110 H : TESTED A T [facility] 6720 (BEAKER) (test code = RAYMONDAL Melodie [facility], 1538) [address]: Supervising Editor News Reel/Techni elsie ID = [id number] for Junie Gutiérrez CBC W/PLT COUNT & AUTO [id number] 05:53:00 Test Item Value Reference Range Interpretation [...] (BEAKER) (test code = 2801) BASIC METABOLIC [id number] 05:41:00 Test Item Value Reference Range Interpretation [...] S NOT APPLICABLE FOR DIALYSIS PATIEN TS. Supervising Editor News Reel ID - JORDAN [id number] 05:22:00 Test Item Value Reference Range Interpretation Comments MAGNESIUM (CONRAD) (test code = 2.0 mg/dL 1.6-2.6 627) Supervising Editor News Reel ID - JORDNA [id number] 05:22:00 Test Item Value Reference Range Interpretation Comments PHOSPHORUS (CONRAD) (test code = 4.8 mg/dL 2.3-4.7 H 604) Supervising Editor News Reel ID - JORDAN MSARS-COV2/RT-PCR ([facility])2021-06-03 03:56:00 Test Item Value Reference Range Interpretation Comments SARS-COV2/RT-PCR (test code = Negative Negative 3002681) Negative result for this test determines that [...] the Zapata SARS-CoV-2 assay.Fact Sheet for Healthcare Providers:https://www.[employer].DoughMain/tracy/RT SARS-CoV-2 HCP Fact Sheet 51- 446203.pdfFact Sheet for Healthcare Patients:https://www.[employer].DoughMain/tracy/RT SARS-CoV-2 Patient Fact Sheet EN 51-499931Q8.pdfPROTHROMBIN TIME/[id number] 01:17:00 Test Item Value Reference Range Interpretation Comments PROTIME (CONRAD) 14.3 seconds 11.9-14.2 H (test code = 759) INR (CONRAD) (test 1.13 See_Comment [Automat ed message] code = 370) The system Magisto generated this result transmitted ref erence range: <=5.90. The reference range was not used to int erpret this result as normal/abnormal . RECOMMENDED COUMADIN/WARFARIN INR THERAPY RANGESSTANDARD DOSE: 2.0 - 3.0 Includes: PROPHYLAXIS forvenous thrombosis, systemic embolization; TREATMENT for venous thrombosis and/or pulmonary embolus.HIGH RISK: Target INR is 2.5-3.5 for patients with mechanical heart valves.POCT-GLUCOSE [id number] 21:22:00 Test Item Value Reference Range Interpretation Comments POC-GLUCOSE METER 150 mg/dL 70-110 H : TESTED A T [place] [address] (ISAACDIPIKA) (test code = [facility] Sewell [facility], 153) [address]: Supervising Editor News Reel/Techni elsie ID = [id number] for Hodan Mayo POCT-GLUCOSE [id number] 17:33:00 Test Item Value Reference Range Interpretation Comments POC-GLUCOSE METER 183 mg/dL 70-110 H : Notified RN/MD: (CONRAD) (test code = TESTED AT [place] [address] 1538) [facility], [address]: Supervising Editor News Reel/Techni elsie ID = [id number] for Co christian, Alexandrea POCT-GLUCOSE [id number] 08:46:00 Test Item Value Reference Range Interpretation Comments POC-GLUCOSE METER 143 mg/dL 70-110 H : Notified RN/MD: (CONRAD) (test code = TESTED AT [place] [id number] 1538) [facility], [address]: Supervising Editor News Reel/Techni elsie ID = [id number] for Co christian, Alexandrea BASIC METABOLIC [id number] 07:12:00 Test Item Value Reference Range Interpretation [...] S NOT APPLICABLE FOR DIALYSIS PATIEN TS. Supervising Editor News Reel ID - JORDAN [id number] 07:04:00 Test Item Value Reference Range Interpretation Comments MAGNESIUM (BEAKER) (test code = 2.1 mg/dL 1.6-2.6 627) Supervising Editor News Reel ID - JORDAN [id number] 07:04:00 Test Item Value Reference Range Interpretation Comments PHOSPHORUS (BEAKER) (test code = 5.7 mg/dL 2.3-4.7 H 604) Supervising Editor News Reel ID - JORDAN MCBC W/PLT COUNT & AUTO [id number] 06:25:00 Test Item Value Reference Range Interpretation [...] PERCENT (BEAKER) (test code = 2801) POCT-GLUCOSE [id number] 21:18:00 Test Item Value Reference Range Interpretation Comments POC-GLUCOSE METER 117 mg/dL 70-110 H : TESTED A T [facility] 6720 (MediaShareAKER) (test code = [facility], 1538) [address]: Supervising Editor News Reel/Techni elsie ID = [id number] for Hodan Mayo POCT-GLUCOSE [id number] 18:18:00 Test Item Value Reference Range Interpretation Comments POC-GLUCOSE METER 123 mg/dL 70-110 H : Notified RN/MD: (CONRAD) (test code = TESTED AT [place] [address] 153) [facility], [address]: Supervising Editor News Reel/Techni elsie ID = [id number] for Co Alexandrea gonzales POCT-GLUCOSE [id number] 12:40:00 Test Item Value Reference Range Interpretation Comments POC-GLUCOSE METER 169 mg/dL 70-110 H : Notified RN/MD: (CONRAD) (test code = TESTED AT [place] [address] 153) [facility], [address]: Supervising Editor News Reel/Techni elsie ID = [id number] for Co Rocío gonzalesna POCT-GLUCOSE [id number] 08:51:00 Test Item Value Reference Range Interpretation Comments POC-GLUCOSE METER 119 mg/dL 70-110 H : Notified RN/MD: (CONRAD) (test code = TESTED AT [place] [address]) [facility], [address]: Supervising Editor News Reel/Techni elsie ID = [id number] for Co christian Alexandrea BASIC METABOLIC [id number] 06:37:00 Test Item Value Reference Range Interpretation [...] S NOT APPLICABLE FOR DIALYSIS PATIEN TS. Supervising Editor News Reel ID - MAGEN [id number] 06:34:00 Test Item Value Reference Range Interpretation Comments MAGNESIUM (BEAKER) (test code = 2.1 mg/dL 1.6-2.6 627) Supervising Editor News Reel ID Disha US [id number] 06:34:00 Test Item Value Reference Range Interpretation Comments PHOSPHORUS (BEAKER) (test code = 5.1 mg/dL 2.3-4.7 H 604) Supervising Editor News Reel ID Disha US WCBC W/PLT COUNT & AUTO [id number] 05:46:00 Test Item Value Reference Range Interpretation [...] PERCENT (BEAKER) (test code = 2801) POCT-GLUCOSE [id number] 21:36:00 Test Item Value Reference Range Interpretation Comments POC-GLUCOSE METER 160 mg/dL 70-110 H : TESTED A T [facility] 6720 (BEAKER) (test code = [facility], 153) [address]: Supervising Editor News Reel/Techni elsie ID = [id number] for LI RAWILMAN POCT-GLUCOSE [id number] 17:16:00 Test Item Value Reference Range Interpretation Comments POC-GLUCOSE METER 151 mg/dL 70-110 H : TESTED A T [facility] 6720 (BEAKER) (test code = [facility], 153) [address]: Supervising Editor News Reel/Techni elsie ID = [id number] for CA STRO, LUCY POCT-GLUCOSE [id number] 12:22:00 Test Item Value Reference Range Interpretation Comments POC-GLUCOSE METER 153 mg/dL 70-110 H : TESTED A T [facility] 6720 (BEAKER) (test code = [facility], 153) 017[address]: Supervising Editor News Reel/Techni elsie ID = [id number] for CA STRO, LUCY BASIC METABOLIC [id number] 04:46:00 Test Item Value Reference Range Interpretation [...] S NOT APPLICABLE FOR DIALYSIS PATIEN TS. Supervising Editor News Reel ID - MAGEN [id number] 04:25:00 Test Item Value Reference Range Interpretation Comments MAGNESIUM (BEAKER) (test code = 2.0 mg/dL 1.6-2.6 627) Supervising Editor News Reel ID - MAGEN [id number] 04:25:00 Test Item Value Reference Range Interpretation Comments PHOSPHORUS (BEAKER) (test code = 4.3 mg/dL 2.3-4.7 604) Supervising Editor News Reel ID - MAGEN WCBC W/PLT COUNT & AUTO [id number] 03:56:00 Test Item Value Reference Range Interpretation [...] PERCENT (BEAKER) (test code = 2801) POCT-GLUCOSE [id number] 21:39:00 Test Item Value Reference Range Interpretation Comments POC-GLUCOSE METER 183 mg/dL 70-110 H : TESTED A T [facility] 6720 (BEAKER) (test code = [facility], 153) [address]: Supervising Editor News Reel/Techni elsie ID = [id number] for WILMAN BIRD RA POCT-GLUCOSE [id number] 17:38:00 Test Item Value Reference Range Interpretation Comments POC-GLUCOSE METER 145 mg/dL 70-110 H : TESTED A T [facility] 6720 (BEAKER) (test code = [facility], 1538) [address]: Supervising Editor News Reel/Techni elsie ID = [id number] for IB RAHIM, SERKALEM POCT-GLUCOSE [id number] 12:58:00 Test Item Value Reference Range Interpretation Comments POC-GLUCOSE METER 122 mg/dL 70-110 H : TESTED A T [facility] 6720 (BEAKER) (test code = [facility], 1538) 099[address]: Supervising Editor News Reel/Techni elsie ID = [id number] for IB RAHIM, [place] BASIC METABOLIC [id number] 06:52:00 Test Item Value Reference Range Interpretation [...] S NOT APPLICABLE FOR DIALYSIS PATIEN TS. Supervising Editor News Reel ID - JORDAN [id number] 06:36:00 Test Item Value Reference Range Interpretation Comments MAGNESIUM (BEAKER) (test code = 2.1 mg/dL 1.6-2.6 627) Supervising Editor News Reel ID - JORDAN [id number] 06:36:00 Test Item Value Reference Range Interpretation Comments PHOSPHORUS (BEAKER) (test code = 5.0 mg/dL 2.3-4.7 H 604) Supervising Editor News Reel ID - JORDAN MCBC W/PLT COUNT & AUTO [id number] 06:13:00 Test Item Value Reference Range Interpretation [...] PERCENT (BEAKER) (test code = 2801) POCT-GLUCOSE [id number] 21:35:00 Test Item Value Reference Range Interpretation Comments POC-GLUCOSE METER 132 mg/dL 70-110 H : TESTED Lashell Ureña [facility] 6720 (BEAKER) (test code = [place], 1538) [address]: Supervising Editor News Reel/Techni elsie ID = [id number] for WILMAN BIRD RA POCT-GLUCOSE [id number] 17:32:00 Test Item Value Reference Range Interpretation Comments POC-GLUCOSE METER 140 mg/dL 70-110 H : TESTED A T [facility] 6720 (BEAKER) (test code = CI[place], 1538) [address]: Supervising Editor News Reel/Techni elsie ID = [id number] for FAHAD CASTAÑEDA POCT-GLUCOSE [id number] 11:19:00 Test Item Value Reference Range Interpretation Comments POC-GLUCOSE METER 159 mg/dL 70-110 H : TESTED A T [facility] 6720 (BEAKER) (test code = CIERA Sewell [facility], 1538) 423[address]: Supervising Editor News Reel/Techni elsie ID = [id number] for FAHAD CASTAÑEDA BASIC METABOLIC [id number] 08:10:00 Test Item Value Reference Range Interpretation [...] S NOT APPLICABLE FOR DIALYSIS PATIEN TS. Supervising Editor News Reel ID - DAREK [id number] 08:05:00 Test Item Value Reference Range Interpretation Comments MAGNESIUM (BEAKER) (test code = 1.9 mg/dL 1.6-2.6 627) Supervising Editor News Reel ID - DAREK [id number] 08:05:00 Test Item Value Reference Range Interpretation Comments PHOSPHORUS (BEAKER) (test code = 4.3 mg/dL 2.3-4.7 604) Supervising Editor News Reel ID - DAREK MPOCT-GLUCOSE [id number] 07:57:00 Test Item Value Reference Range Interpretation Comments POC-GLUCOSE METER 144 mg/dL 70-110 H : TESTED A T [facility] 6720 (BEAKER) (test code = [place], 1538) [address]: Supervising Editor News Reel/Techni elsie ID = [id number] for FAHAD CASTAÑEDA CBC W/PLT COUNT & AUTO [id number] 07:45:00 Test Item Value Reference Range Interpretation [...] PERCENT (BEAKER) (test code = 2801) POCT-GLUCOSE [id number] 21:17:00 Test Item Value Reference Range Interpretation Comments POC-GLUCOSE METER 162 mg/dL 70-110 H : TESTED A T [facility] 6720 (BEAKER) (test code = [facility], 1538) [address]: Supervising Editor News Reel/Techni elsie ID = [id number] for Hodan Mayo POCT-GLUCOSE [id number] 17:43:00 Test Item Value Reference Range Interpretation Comments POC-GLUCOSE METER 129 mg/dL 70-110 H : TESTED A T [facility] 6720 (BEAKER) (test code = [facility] Fwd: Power [facility], 1538) [address]: Supervising Editor News Reel/Techni elsie ID = [id number] for Riri Edwin pop U/S, [id number] 15:28:00DR STRIBLINGLabs to be ordered:->Body Fluid Culture (w/Gram Stain, C\T\S)Labs to be ordered:->G lucose+LDH+ProteinLabs to be ordered:->Cell CountLabs to be ordered:- >CytologyReason for exam:->ascites [facility] 1955 Sex: MFINAL REPORT Ultrasound guided paracentesis Clinical History: Ascites. Sedation: None. Superintendent Refuse Disposal: Michelle Wilson PA-C Supervising Physician: Scott Alcazar MD [employer]ed [employer] Officer: None. Estimated Blood Loss: < 1 mL. [...] anesthesia was achieved with lidocaine, a 5 Citizen Of [place] one-step catheter was advanced into the peritoneal cavity under ultrasound guidance. After completion of drainage, the catheter was removed. There was no evidence of complication. Impression:Successful ultrasound guided paracentesis. Signed: Scott Alcaazr MDReport Verified Date/Time: 05/28/2021 15:28:45 Reading Location: [address] Ultrasound Reading Room RAD, CHEST, 1 VIEW, NON [id number] 12:52:00DR STRIBLINGReason for exam:->interval change, pleural effusionShould this be performed at the bedside?->Yes [facility] 1955 Sex: MFINAL [...] Beard Verified Date/Time: 05/28/2021 12:52:22 Reading Location: [facility] Diagnostic Imaging Reading Room [place] [address] POCT-GLUCOSE [id number] 12:06:00 Test Item Value Reference Range Interpretation Comments POC-GLUCOSE METER 157 mg/dL 70-110 H : TESTED A T [facility] 67 ([facility]) (test code = [facility], 1538) [address]: Supervising Editor News Reel/Techni elsie ID = [id number] for Ma redia (pca2), Shayna BODY FLUID CULTURE + GRAM [id number] 09:41:00 Test Item Value Reference Range Interpretation Comments CULTURE (BEAKER) (test code No growth = 1095) GRAM STAIN RESULT ([facility]) 1+ WBCs (test code = 1123) GRAM STAIN RESULT (AKER) No organisms seen (test code = 17629) POCT-GLUCOSE [id number] 08:28:00 Test Item Value Reference Range Interpretation Comments POC-GLUCOSE METER 123 mg/dL 70-110 H : Notified RN/MD: (CONRAD) (test code = TESTED AT [facility] 6720 1538) [facility], [address]: Supervising Editor News Reel/Techni elsie ID = [id number] for Ma cawili (pca2), Tolono [id number] 08:10:00 Test Item Value Reference Range Interpretation Comments MAGNESIUM (BEAKER) (test code = 1.8 mg/dL 1.6-2.6 627) Supervising Editor News Reel ID - PATRICIA CBASI METABOLIC [id number] 07:50:00 Test Item Value Reference Range Interpretation [...] S NOT APPLICABLE FOR DIALYSIS PATIEN TS. Supervising Editor News Reel ID - JEVON [id number] 07:35:00 Test Item Value Reference Range Interpretation Comments PHOSPHORUS (BEAKER) (test code = 5.7 mg/dL 2.3-4.7 H 604) Supervising Editor News Reel ID - JEVON LCBC W/PLT COUNT & AUTO [id number] 07:06:00 Test Item Value Reference Range Interpretation [...] PERCENT (BEAKER) (test code = 2801) POCT-GLUCOSE [id number] 21:19:00 Test Item Value Reference Range Interpretation Comments POC-GLUCOSE METER 126 mg/dL 70-110 H : TESTED A T [facility] 6720 (AKER) (test code = [facility], 1538) 98[address]: Supervising Editor News Reel/Techni elsie ID = [id number] for Arlet Yanes POCT-GLUCOSE [id number] 18:22:00 Test Item Value Reference Range Interpretation Comments POC-GLUCOSE METER 164 mg/dL 70-110 H : Notified RN/MD: (CONRAD) (test code = TESTED AT [facility] 67 1538) [facility], [address]: Supervising Editor News Reel/Techni elsie ID = [id number] for Yuki caballero (pca2), Tolono POCT-GLUCOSE [id number] 13:51:00 Test Item Value Reference Range Interpretation Comments POC-GLUCOSE METER 114 mg/dL 70-110 H : Notified RN/MD: (CONRAD) (test code = TESTED AT [facility] 67 1538) [facility], [address]: Supervising Editor News Reel/Techni elsie ID = [id number] for Yuki caballero (pca2), Nohelia [id number] 11:15:00Medical Cytology Report Case: [id number] Authorizing Provider: Rome Bhatti MD Collected: 05/26/2021 10:25 AM Ordering Location: [facility] Emergency Department Received: 05/26/2021 01:28 PM Pathologist: Silvestre Le MD Specimen: Peritoneal Fluid PERITONEAL FLUID (CYTOSPINS AND CELL BLOCK): -NEGATIVE FOR MALIGNANCY Signing Pathologist Direct Phone Line: [phone] Reactive mesothelial cells are present.97420, 80025Ibysnfd; history of chronic systolic/diastolic heart failure, cirrhosis, DM, hypothyroidism, HLD, chronic hypotension, CAD, chronic anemia, ESRD presented with abdominal distension, decreased uop, burning of foreskin and penisPERITONEAL FLUIDReceived 1500 ml clear, yellow fluid; prepared 4 cytospins and cell block(A2) - cell block prepared using a collodion bag andfixed in formalin at 5:02 pm on 05/26/21Performed. [facility], Department of Pathology, [address] [place] [address], [facility], Department of Pathology, [address] [place] [address], [facility]Sh[facility], Department of Pathology, [address] [place] [address], FUGPEYV DEHYDROGENASE (LDH), BODY [id number] 10:45:00 Test Item Value Reference Range Interpretation Comments LACTATE DEHYDROGENASE FLUID (BEAKER) 123 U/L (test code = 634) Absence of reference range indicates that normals have not been defined.Assay performance has not been validated for this type of specimen.Supervising Editor News Reel ID - [id number], BODY [id number] 10:41:00 Test Item Value Reference Range Interpretation Comments PROTEIN FLUID (BEAKER) (test code = 5.4 g/dL 579) Absence of reference range indicates that normals have not been defined.Assay performance has not been validated for this type of specimen.Supervising Editor News Reel ID - [id number] [id number] 09:21:00 Test Item Value Reference Range Interpretation Comments POC-GLUCOSE METER 134 mg/dL 70-110 H : [facility] (BEAKER) (test code = [place], 1538) [address]: Supervising Editor News Reel/Techni elsie ID = [id number] for CA MARCELINOLUCY BASIC METABOLIC [id number] 07:43:00 Test Item Value Reference Range Interpretation [...] S NOT APPLICABLE FOR DIALYSIS PATIEN TS. Supervising Editor News Reel ID - MAGEN [id number] 07:42:00 Test Item Value Reference Range Interpretation Comments MAGNESIUM (BEAKER) (test code = 2.0 mg/dL 1.6-2.6 627) Supervising Editor News Reel ID - MAGEN [id number] 07:42:00 Test Item Value Reference Range Interpretation Comments PHOSPHORUS (BEAKER) (test code = 4.4 mg/dL 2.3-4.7 604) Supervising Editor News Reel ID Disha US WCBC W/PLT COUNT & AUTO [id number] 06:55:00 Test Item Value Reference Range Interpretation [...] PERCENT (BEAKER) (test code = 2801) POCT-GLUCOSE [id number] 21:47:00 Test Item Value Reference Range Interpretation Comments POC-GLUCOSE METER 138 mg/dL 70-110 H : TESTED A T [facility] 6720 ([facility]) (test code = [facility], 153) [address]: Supervising Editor News Reel/Techni elsie ID = [id number] for La cy (pca2), Victori a PTH, [id number] 19:07:00 Test Item Value Reference Range Interpretation Comments PARATHYROID HORMONE INTACT 396.3 pg/mL 8.5-72.5 H (BEAKER) (test code = 577) Supervising Editor News Reel ID - BSPOCT-GLUCOSE [id number] 17:30:00 Test Item Value Reference Range Interpretation Comments POC-GLUCOSE METER 71 mg/dL 70-110 : TESTED A T [facility] 6720 ([facility]) (test code = [facility], 153) [address]: Supervising Editor News Reel/Techni elsie ID = [id number] for Rosario ano, Edwin [id number] 17:28:00 Test Item Value Reference Range Interpretation Comments FERRITIN (BEAKER) (test code = 1901.90 ng/mL 5.00-275.00 H 361) Supervising Editor News Reel ID - BSPOCT-GLUCOSE [id number] 17:18:00 Test Item Value Reference Range Interpretation Comments POC-GLUCOSE METER 63 mg/dL 70-110 L : TESTED A T [facility] 6720 (BEAKER) (test code = [facility], 153) [address]: Supervising Editor News Reel/Techni elsie ID = [id number] for Rosario ano, Edwin IRON, TIBC, % SAT. (WITHOUT FERRITIN)2021-05-26 17:00:00 Test Item Value Reference Range Interpretation Comments IRON (BEAKER) (test code = 547) 44.0 ug/dL 40.0-160.0 TOTAL IRON BINDING CAPACITY 136 ug/dL 250-450 L (BEAKER) (test code = 769) IRON % SATURATION (2) (BEAKER) 32 % 20-55 (test code = 2590) Supervising Editor News Reel ID - BSHEPATITIS B SURFACE [id number] 14:17:00 Test Item Value Reference Range Interpretation Comments HEPATITIS B SURFACE ANTIGEN (2) Nonreactive Nonreactive (BEAKER) (test code = 2585) Specimen is considered negative for HBsAg.BODY FLUID CELL COUNT WITH [id number] 13:17:00 Test Item Value Reference Range Interpretation [...] (test code = The sy stem which 1699) generated this result transmit nova reference range [...] Cup (BEAKER) (test code = 2873) POCT-GLUCOSE [id number] 12:41:00 Test Item Value Reference Range Interpretation Comments POC-GLUCOSE METER 76 mg/dL 70-110 : TESTED A T [facility] 6720 (BEAKER) (test code = [place], 1538) [address]: Supervising Editor News Reel/Techni elsie ID = [id number] for Greg bateman (pca2)Aleksandra POCT-GLUCOSE [id number] 07:29:00 Test Item Value Reference Range Interpretation Comments POC-GLUCOSE METER 90 mg/dL 70-110 : TESTED A T [facility] 6720 (BEAKER) (test code = [place], 1538) [address]: Supervising Editor News Reel/Techni elsie ID = [id number] for Ariel Perdue [id number] 05:33:00 Test Item Value Reference Range Interpretation Comments MAGNESIUM (BEAKER) (test code = 2.2 mg/dL 1.6-2.6 627) Supervising Editor News Reel ID Disha [place] [id number] 05:33:00 Test Item Value Reference Range Interpretation Comments PHOSPHORUS (BEAKER) (test code = 6.0 mg/dL 2.3-4.7 H 604) Supervising Editor News Reel ID - JORDAN MBASIC METABOLIC [id number] 05:33:00 Test Item Value Reference Range Interpretation [...] S NOT APPLICABLE FOR DIALYSIS PATIEN TS. Supervising Editor News Reel ID - JORDAN MCBC W/PLT COUNT & AUTO [id number] 05:27:00 Test Item Value Reference Range Interpretation [...] = 2801) SARS-COV2/RT-PCR ([facility])2021-05-26 03:02:00 Test Item Value Reference Range Interpretation Comments SARS-COV2/RT-PCR Negative Negative The SARS-Co V-2 target (test code = 7547611) nuclei c acids are not detected in [...] of the Act.Fact Sheet for Healthcare Providers :[email or web address]://[email or web address]/Documents/Xpert%20Xpress%20SARS%20CoV-2/Fact%20Sheets/3 [email or web address]%65MPJA-JET-1%20HEALTHCARE%20PROVIDERS%20FACT%20SHEET.pdfFact Sheet for Healthcare Patients:[email or web address]://www.[employer] /Documents/Xpert%20Xpress%20SARS%20Cov-2/Fact%20Sheets/302-3801%58VQDE-NEU-4%20P ATIENT%20FACT%20SHEET.pdfRAD, CHEST, 1 VIEW, NON [id number] 22:32:00DR STRIBLINGReason for exam:->shortness of breathShould this be performed at the bedside?->Yes[facility] : 1955 Sex: MFINAL [...] venous catheter has been removed. Signed: Angy Varnerssm rehab Verified Date/Time: 05/25/2021 22:32:46 Reading Location: [address] Consult Reading Room [place], [id number] 21:35:00DR STRIBLINGUnlisted Reason for Exam - Click Yes and Enter Reason Below->NoWill this procedure require oral contrast?->NoKAI [facility] : 1955 Sex: [...] Marya Arredondo MDReport Verified Date/Time: 05/25/2021 21:35:09 [id number] 19:39:00 Test Item Value Reference Range Interpretation Comments LIPASE (BEAKER) (test code = 749) 19 U/L 8-78 Supervising Editor News Reel ID - DBCOMPREHENSIVE METABOLIC [id number] 19:39:00 Test Item Value Reference Range Interpretation [...] S NOT APPLICABLE FOR DIALYSIS PATIEN TS. Supervising Editor News Reel ID - DBOperator ID - DBB-TYPE NATRIURETIC FACTOR (BNP)2021-05-25 19:34:00 Test Item Value Reference Range Interpretation Comments B-TYPE NATRIURETIC PEPTIDE 48436 pg/mL 0-100 H (MediaShareAKER) (test code = 700) Supervising Editor News Reel ID - dbOperator ID - dbHIGH SENSITIVITY TROPONIN [id number] 19:13:00 Test Item Value Reference Range Interpretation Comments HIGH SENSITIVITY 54 pg/ml See_Comment H [Automated message] TROPONIN I (test code = The system which 9461435) generated this result transmitted ref erence range: <=35. Th e reference range was not used to int erpret this result as normal/abnormal . Supervising Editor News Reel ID - dbThe PHYSICAL THERAPIST ASSISTANT STAT High Sensitivity Troponin-I results should be used in conjunctionwith other diagnostic information such as ECG, clinical observations and information, and patient symptoms to aid in the diagnosis of [place].PT/[id number] 19:08:00 Test Item Value Reference Range Interpretation Comments PROTIME (CONRAD) (test 14.4 seconds 11.9-14.2 H code = 759) INR ([employer]) (test 1.14 See_Comment [Automat ed code = 370) message] The sy stem which generated this result transmitted reference range : <=5.90. The reference range was not used to interpret this result as normal/abnormal . PARTIAL THROMBOPLASTIN 36.6 seconds 22.5-36.0 H TIME (MediaShareAKER) (test code = 760) RECOMMENDED COUMADIN/WARFARIN INR THERAPY RANGESSTANDARD DOSE: 2.0 - 3.0 Includes: PROPHYLAXIS forvenous thrombosis, systemic embolization; TREATMENT for venous thrombosis and/or pulmonary embolus.HIGH RISK: Target INR is 2.5-3.5 for patients with mechanical heart valves.HEPATIC FUNCTION [id number] 19:07:00 Test Item Value Reference Range Interpretation [...] (test code = 8 U/L 6-55 347) Supervising Editor News Reel ID - DBCBC W/PLT COUNT & AUTO [id number] 18:55:00 Test Item Value Reference Range Interpretation [...] 0-1 PERCENT (BEAKER) (test code = 2801) [id number] 16:39:00 Test Item Value Reference Range Interpretation Comments GLUBED (test code = 104 MG/DL 70-110 N Performe d by certified GLUBED) 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 [facility] - XR FLUOROSCOPY 0-60 [id number] 15:03:00 [facility] : 1955 Sex: M FAX: Espinoza Santillan MD [phone] [place]: [address]: REG Name: TROY FORTE [facility] : 1955 Age/S: 65/M [address] [place] [address] Unit #: [id number] Loc: [place] [address] Phys: Espinoza Villagran MD Acct: [id number] Dis Date: Status: REG [facility] PHONE #: [phone] Exam Date: 12/19/2020 1445 FAX #: [phone] Reason: LUE FISTULA MALFUNCTION EXAMS: CPT CODE: [id number] XR FLUOROSCOPY0-60 MIN 43076 Study: - XR FLUOROSCOPY 0-60 MIN 12/19/2020 2:00 PM Patient Name: TROY FORTE MR: [id number] DATE: 12/19/2020 2:00 PM : 1955; Age: 65 years y/o Male Ordering Physician: Espinoza Villagran MD Clinical Indication: LUE FISTULA MALFUNCTION Intraprocedural fluoroscopy wasprovided by the Department of Radiology. Any images obtained were interpreted by the surgeon intraoperatively. Fluoroscopy time: 18 seconds Reference Air Kerma: 1.3 mGy SL: [id number] at 1503 Reported and signed by: Ar Coffman D.O. CC: Espinoza Villagran MD Technologist: RT Naren(R) Trnscrd Date/Time/By: 12/19/2020 (2709) : By:[email or web address] Orig Print D/T: S: 12/19/2020 (7106) PAGE 1 Signed ReportBASIC METABOLIC PANEL 2020-12-19 [...] 8.8 mg/dL 8.0-10.5 N CA) CBC W/AUTO [id number] 10:45:00 Test Item Value Reference Range Interpretation [...] NO = MDIFF) - XR CHEST 1 [id number] 10:42:00 [facility] : 1955 Sex: M FAX: Espinoza Santillan MD [phone] [place]: [address]: REG Name: TROY FORTE [facility] : 1955 Age/S: 65/M [address] [place] [address] Unit #: [id number] Loc: [place] [address] Phys: Espinoza Villagran MD Acct: [id number] Dis Date: Status: REG [facility] PHONE #: [phone] Exam Date: 12/19/2020 103 FAX #: [phone] Reason: PRE PROCEDURE EXAMS: CPT CODE: [id number] XR CHEST 1 V 25084 Study: - XR CHEST 1 V 12/19/2020 9:13 AM Patient Name: TROY FORTE MR: [id number] : 1955; Age: 65 years y/o Male [...] congestion and small bilateral pleural effusions. SL: [id number] at 1042 Reported and signed by: Tr Ly M.D. CC: Espinoza Villagran MD Technologist: RT Navya(R) Trnscrd Date/Time/By: 12/19/2020 (104) : By: [email or web address] Orig Print D/T: S: 12/19/2020 (5108) PAGE 1 Signed ReportCBC W/AUTO [id number] 10:41:00 Test Item Value Reference Range Interpretation [...] code = MDIFF) COVID 19 Asymptomatic IH [id number] 10:40:00 Test Item Value Reference Range Interpretation [...] Interpretation Comments SCAN RESULT (test code = 0925805) ALBUMIN PERITONEAL [id number] 11:32:00 Test Item Value Reference Range Interpretation Comments ALBUMIN, PERITONEAL FLUID (BEAKER) 2.4 g/dL (test code = 4059308) This test was performed at [facility] Lab, [facility].Reference range is not defined and interpretation must be performed in the consideration of the pathophysiology of the analyte and the clinical context.POCT-GLUCOSE METER 2020-11-21 11:23:00 Test Item Value Reference Range Interpretation Comments POC-GLUCOSE METER 175 mg/dL 70-110 H : TESTED A T [facility] 6720 (BEAKER) (test code = [facility], 1538) [address]: Supervising Editor News Reel/Techni elsie ID = [id number] for IB EBENMCRISPINM HEPATIC FUNCTION [id number] 10:08:00 Test Item Value Reference Range Interpretation [...] (test code = 7 U/L 6-55 347) Supervising Editor News Reel ID - EDASIPOCT-GLUCOSE [id number] 08:18:00 Test Item Value Reference Range Interpretation Comments POC-GLUCOSE METER 130 mg/dL 70-110 H : TESTED A T [facility] 6720 (BEAKER) (test code = [facility], 1538) [address]: Supervising Editor News Reel/Techni elsie ID = [id number] for IB EBENM, SERYANELISLEM BASIC METABOLIC [id number] 07:17:00 Test Item Value Reference Range Interpretation [...] S NOT APPLICABLE FOR DIALYSIS PATIEN TS. Supervising Editor News Reel ID - [id number] 07:16:00 Test Item Value Reference Range Interpretation Comments MAGNESIUM (BEAKER) (test code = 2.0 mg/dL 1.6-2.6 627) Supervising Editor News Reel ID - ADMINCBC (HEMOGRAM ONLY)2020-11-21 06:55:00 Test [...] = 413) RAD, CHEST, 1 VIEW, NON [id number] 00:39:00Reason for exam:->SICD implantShould this be performed at the bedside?->Yes [facility] 1955 Sex: MFINAL [...] emphysemain the left chest wall. Signed: Elidia Patelssm rehab Verified Date/Time: 11/21/2020 00:39:32 E lectronically signed by: ELIDIA PATEL MD on 11/21/2020 12:39 AMPOCT- GLUCOSE [id number] 21:44:00 Test Item Value Reference Range Interpretation Comments POC-GLUCOSE METER 173 mg/dL 70-110 H : [facility] 67[facility] ([employer]) (test code = [place], 1538) [address]: Supervising Editor News Reel/Techni elsie ID = [id number] for WILMAN BIRD RA POCT-GLUCOSE [id number] 18:37:00 Test Item Value Reference Range Interpretation Comments POC-GLUCOSE METER 157 mg/dL 70-110 H : TESTED A T [facility] 6720 ([employer]) (test code = [place], 1538) [address]: Supervising Editor News Reel/Techni elsie ID = [id number] for RICARDO COOK POCT-GLUCOSE [id number] 17:03:00 Test Item Value Reference Range Interpretation Comments POC-GLUCOSE METER 151 mg/dL 70-110 H : [facility] (BEAKER) (test code = [facility], 1538) [address]: Supervising Editor News Reel/Techni elsie ID = [id number] for CORI NAVA BLOOD GAS, [id number] 14:46:00 Test Item Value Reference Range Interpretation [...] (test code = 1819) 100.0 SODIUM NA-STAT [id number] 14:46:00 Test Item Value Reference Range Interpretation Comments SODIUM (BEAKER) (test code = 381) 133 meq/L 136-145 L POTASSIUM-STAT [id number] 14:46:00 Test Item Value Reference Range Interpretation Comments POTASSIUM (BEAKER) (test code = 3.3 meq/L 3.6-5.5 L 379) GLUCOSE-STAT [id number] 14:46:00 Test Item Value Reference Range Interpretation Comments GLUCOSE RANDOM (BEAKER) (test code 143 mg/dL 70-110 H = 652) HGB/HCT (H&H) - STAT [id number] 14:46:00 Test Item Value Reference Range Interpretation Comments HEMOGLOBIN (BEAKER) (test code = 7.3 GM/DL 13.0-16.8 L 410) HEMATOCRIT (BEAKER) (test code = 21.0 % 40.0-50.0 L 411) BODY FLUID CULTURE + GRAM [id number] 12:24:00 Test Item Value Reference Range Interpretation Comments CULTURE (BEAKER) (test code No growth = 1095) GRAM STAIN RESULT (BEAKER) 1+ WBCs (test code = 1123) GRAM STAIN RESULT (BEAKER) No organisms seen (test code = 26369) POCT-GLUCOSE [id number] 09:22:00 Test Item Value Reference Range Interpretation Comments POC-GLUCOSE METER 156 mg/dL 70-110 H : Notified RN/MD: (BEAKER) (test code = TESTED AT [facility] 6720 6768) [place], [address]: Supervising Editor News Reel/Techni elsie ID = [id number] for AN RICARDO DAUGHERTY PROTHROMBIN TIME/[id number] 04:26:00 Test Item Value Reference Range Interpretation [...] valves.Within 24 hours, if on CoumadinBASIC METABOLIC [id number] 04:13:00 Test Item Value Reference Range Interpretation [...] S NOT APPLICABLE FOR DIALYSIS PATIEN TS. Supervising Editor News Reel ID - JEVON [id number] 04:03:00 Test Item Value Reference Range Interpretation Comments MAGNESIUM (BEAKER) (test code = 2.0 mg/dL 1.6-2.6 627) Supervising Editor News Reel ID - JEVON LCBC (HEMOGRAM ONLY)2020-11-20 03:55:00 [...] 0-0 (BEAKER) (test code = 413) POCT-GLUCOSE [id number] 21:13:00 Test Item Value Reference Range Interpretation Comments POC-GLUCOSE METER 222 mg/dL 70-110 H : TESTED A T [facility] 6720 (BEAKER) (test code = [facility], 153) [address]: Supervising Editor News Reel/Techni elsie ID = [id number] for WILMAN BIRD RA POCT-GLUCOSE [id number] 17:48:00 Test Item Value Reference Range Interpretation Comments POC-GLUCOSE METER 205 mg/dL 70-110 H : Notified RN/MD: (CONRAD) (test code = TESTED AT [place] [address] 1538) [facility], [address]: Supervising Editor News Reel/Techni elsie ID = [id number] for AN RICARDO DAUGHERTY POCT-GLUCOSE [id number] 12:22:00 Test Item Value Reference Range Interpretation Comments POC-GLUCOSE METER 196 mg/dL 70-110 H : Notified RN/MD: (CONRAD) (test code = TESTED AT [place] [address] 1538) [facility], [address]: Supervising Editor News Reel/Techni elsie ID = [id number] for AN RICARDO DAUGHERTY POCT-GLUCOSE [id number] 08:52:00 Test Item Value Reference Range Interpretation Comments POC-GLUCOSE METER 166 mg/dL 70-110 H : [facility] 67[facility] ([facility]) (test code = [facility], 153) [address]: Supervising Editor News Reel/Techni elsie ID = [id number] for Jennyfer Gutiérrezia POCT-GLUCOSE [id number] 08:52:00 Test Item Value Reference Range Interpretation Comments POC-GLUCOSE METER 176 mg/dL 70-110 H : [facility] 67[facility] ([facility]) (test code = [facility], 153) [address]: Supervising Editor News Reel/Techni elsie ID = [id number] for Ra cano, Junie POCT-GLUCOSE [id number] 08:39:00 Test Item Value Reference Range Interpretation Comments POC-GLUCOSE METER 144 mg/dL 70-110 H : Notified RN/MD: [facility] (test code = TESTED AT [place] [address] 1538) [facility], [address]: Supervising Editor News Reel/Techni elsie ID = [id number] for RICARDO COOK BASIC METABOLIC [id number] 07:50:00 Test Item Value Reference Range Interpretation [...] S NOT APPLICABLE FOR DIALYSIS PATIEN TS. Supervising Editor News Reel ID - [id number] 07:46:00 Test Item Value Reference Range Interpretation Comments MAGNESIUM (BEAKER) (test code = 2.0 mg/dL 1.6-2.6 627) Supervising Editor News Reel ID - BENYHEPATIC FUNCTION [id number] 07:46:00 Test Item Value Reference Range Interpretation [...] (test code = 9 U/L 6-55 347) Supervising Editor News Reel ID - BENYB-TYPE NATRIURETIC FACTOR (BNP)2020-11-19 07:44:00 Test Item Value Reference Range Interpretation Comments B-TYPE NATRIURETIC PEPTIDE 4442 pg/mL 0-100 H (BEAKER) (test code = 700) Supervising Editor News Reel ID - BENYCBC (HEMOGRAM ONLY)2020-11-19 07:14:00 Test [...] 0-0 (BEAKER) (test code = 413) POCT-GLUCOSE [id number] 23:22:00 Test Item Value Reference Range Interpretation Comments POC-GLUCOSE METER 132 mg/dL 70-110 H : TESTED A T [facility] 6720 (BEAKER) (test code = [facility], 153) [address]: Supervising Editor News Reel/Techni elsie ID = [id number] for LAURA OR ABISAI BROWNY JONE POCT-GLUCOSE [id number] 17:45:00 Test Item Value Reference Range Interpretation Comments POC-GLUCOSE METER 259 mg/dL 70-110 H : TESTED A T [facility] 6720 (BEAKER) (test code = [facility], 153) [address]: Supervising Editor News Reel/Techni elsie ID = [id number] for Junie Gutiérrez T4, [id number] 09:08:00 Test Item Value Reference Range Interpretation Comments FREE T4 (BEAKER) (test code = 655) 0.62 ng/dL 0.70-1.48 L Supervising Editor News Reel ID - JORDAN MTSH/FREE T4 IF [id number] 08:03:00 Test Item Value Reference Range Interpretation Comments THYROID STIMULATING HORMONE 7.177 uIU/mL 0.350-4.940 H (BEAKER) (test code = 772) Supervising Editor News Reel ID - JORDAN MBASIC METABOLIC [id number] 07:42:00 Test Item Value Reference Range Interpretation [...] S NOT APPLICABLE FOR DIALYSIS PATIEN TS. Supervising Editor News Reel ID - JORDAN [id number] 07:41:00 Test Item Value Reference Range Interpretation Comments MAGNESIUM (BEAKER) (test code = 1.9 mg/dL 1.6-2.6 627) Supervising Editor News Reel ID - JORDAN MHEPATIC FUNCTION [id number] 07:41:00 Test Item Value Reference Range Interpretation [...] (test code = 11 U/L 6-55 347) Supervising Editor News Reel ID - JORDAN MCBC (HEMOGRAM ONLY)2020-11-18 06:18:00 [...] 0-0 (BEAKER) (test code = 413) POCT-GLUCOSE [id number] 00:01:00 Test Item Value Reference Range Interpretation Comments POC-GLUCOSE METER 164 mg/dL 70-110 H : TESTED [place] T [facility] 6720 (BEAKER) (test code = [place], 1538) [address]: Supervising Editor News Reel/Techni elsie ID = [id number] for LAURA OR ABISAI BROWN POCT-GLUCOSE [id number] 17:28:00 Test Item Value Reference Range Interpretation Comments POC-GLUCOSE METER 247 mg/dL 70-110 H : TESTED A T [facility] 6720 (BEAKER) (test code = [facility], 1538) [address]: Supervising Editor News Reel/Techni elsie ID = [id number] for EDE GASPAR [id number] 15:35:00Medical Cytology Report Case: [id number] Authorizing Provider: Arben Cantor MD Collected: 11/16/2020 11:50 AM Ordering Location: [address] Received: 11/17/2020 09:32 AM Service Pathologist: Silvestre Le MD Specimen: Perit cabezas Fluid PERITONEAL FLUID (CYTOPSPINS): - NEGATIVE FOR MALIGNANCY Signing Pathologist Direct Phone Line: [phone] signed by Silvestre Le MD on 11/17/2020 at 3:35 [id number], CHFPERITONEAL [id number] mls madina fluid; 4 cytospinsPerformed. [facility], Department of Pathology, [address] [place] [address], [facility]istSh[facility], Department of Pathology, [address] [place] [address], CrgpdiShriners [facility] [place], Department of Pathology, [address] [place] [address], VVKT-NUCLEAR ANTIBODY (SANTANA)2020-11-17 15:14:00 Test Item Value Reference Range Interpretation Comments ANTI-NUCLEAR ANTIBODY (SANTANA) (BEAKER) Negative Negative (test code = 418) Test performed by IFA method.Test performed by IFA method.PROTEIN, TOTAL, PERITONEAL [id number] 15:08:00 Test Item Value Reference Range Interpretation Comments PROTEIN, TOTAL, PERITONEAL FLUID 5.2 g/dL (BEAKER) (test code = 6735980) POCT-GLUCOSE [id number] 12:05:00 Test Item Value Reference Range Interpretation Comments POC-GLUCOSE METER 187 mg/dL 70-110 H : [facility] (BEAKER) (test code = [facility], 1538) [address]: Supervising Editor News Reel/Techni elsie ID = [id number] for EDE GASPAR POCT-GLUCOSE [id number] 08:00:00 Test Item Value Reference Range Interpretation Comments POC-GLUCOSE METER 202 mg/dL 70-110 H : TESTED A T [facility] 6720 (BEAKER) (test code = [place], 1538) [address]: Supervising Editor News Reel/Techni elsie ID = [id number] for EDE GASPAR BASIC METABOLIC [id number] 06:49:00 Test Item Value Reference Range Interpretation [...] S NOT APPLICABLE FOR DIALYSIS PATIEN TS. Supervising Editor News Reel ID - [id number] 06:46:00 Test Item Value Reference Range Interpretation Comments MAGNESIUM (BEAKER) (test code = 1.9 mg/dL 1.6-2.6 627) Supervising Editor News Reel ID - [id number] 06:46:00 Test Item Value Reference Range Interpretation Comments PHOSPHORUS (BEAKER) (test code = 6.9 mg/dL 2.3-4.7 H 604) Supervising Editor News Reel ID - EDASIHEPATIC FUNCTION [id number] 06:46:00 Test Item Value Reference Range Interpretation [...] (test code = 10 U/L 6-55 347) Supervising Editor News Reel ID - EDASIPTH, [id number] 06:40:00 Test Item Value Reference Range Interpretation Comments PARATHYROID HORMONE INTACT 540.2 pg/mL 8.5-72.5 H (BEAKER) (test code = 577) Supervising Editor News Reel ID - DBCBC W/PLT COUNT & AUTO [id number] 06:23:00 Test Item Value Reference Range Interpretation [...] PERCENT (BEAKER) (test code = 2801) POCT-GLUCOSE [id number] 22:19:00 Test Item Value Reference Range Interpretation Comments POC-GLUCOSE METER 233 mg/dL 70-110 H : TESTED A [facility] 6720 ([facility]) (test code = [facility], 1538) [address]: Supervising Editor News Reel/Techni elsie ID = [id number] for Tess Emmanuel Hernandez POCT-GLUCOSE [id number] 17:34:00 Test Item Value Reference Range Interpretation Comments POC-GLUCOSE METER 179 mg/dL 70-110 H : Notified RN/MD: (AKER) (test code = TESTED AT [facility] 6720 1538) [facility], [address]: Supervising Editor News Reel/Techni elsie ID = [id number] for RICARDO COOK [id number] 15:07:00 Test Item Value Reference Range Interpretation Comments FERRITIN (BEAKER) (test code = 3231.34 ng/mL 5.00-275.00 H 361) Supervising Editor News Reel ID - EDASIOperator ID - EDASIBODY FLUID [...] EDTA Tube (test code = 2873) POCT-GLUCOSE [id number] 13:16:00 Test Item Value Reference Range Interpretation Comments POC-GLUCOSE METER 206 mg/dL 70-110 H : Notified RN/MD: (BEAKER) (test code = TESTED AT [facility] 4728 6159) [facility], [address]: Supervising Editor News Reel/Techni elsie ID = [id number] for AN RICARDO DAUGHERTY U/S, [id number] 12:46:00Last Plavix 7Labs to be ordered:->Body Fluid Culture (w/Gram Stain, C\T\S)Needs total protein, and fluid albumin for SAAG calculationLabs to be ordered:->CytologyLabs to be ordered:->Cell Cou ntLabs to be ordered:->Other (please add comment)Reason for exam:->new onset ascitesEAST [facility] : 1955 Sex: MFINAL REPORT PROCEDURE: Ultrasound-guided paracentesis. INDICATION: 65-year-old man with ascites. DESCRIPTION: After obtaining informed written consent, ultrasound scan of theabdomen identified ascites in the right lower quadrant. The overlying skin was prepped and draped inthe usual, sterile fashion and local 2% lidocaine anesthesia was administered. A 5 Citizen Of [place] catheter was advanced into the peritoneal cavity and 5600 cc of serous fluid was removed. The catheter was removed without immediate complication. Samples were sent for analysis. IMPRESSION:Uncomplicated ultrasound-guided paracentesis with 5600 cc fluid removed. Signed: Charles Floyd MDReport Verified Date/Time: 11/16/2020 12:46:29 Reading Location: [facility] C013Y UT Body Reading Room [id number] 2020-11-16 11:46:00 Test Item Value Reference Range Interpretation Comments ALPHA-1 ANTITRYPSIN (BEAKER) 235.00 mg/dL 90.00-200.00 H (test code = 502) Supervising Editor News Reel ID - EDASIOperator ID - AAHAMIDSARS-COV2/RT-PCR ([facility]) 2020-11-16 11:16:00 Test Item Value Reference Range Interpretation Comments SARS-COV2/RT-PCR (test Negative Not Detected, Negative, code = 9473940) See external report for linked test SARS-COV-2 PERFORMING LAB [facility] (test code = 1920841) Negative result for this test determines that [...] 564(g) of the Act.Fact Sheet for Healthcare Providers:https://www.MedyMatch/sites/default/files/product/documents/Fact_Shee l_TB_Mgopsllzd_Ppoa_NKTN-GmL-3.pdfFact Sheet for Healthcare Patients:https://www.MedyMatch/sites/default/files/product/ documents/Exca_Qpilg_Qhkmbomm_Zuyi_MWCQ-SoX-9.pdfPerforming Laboratory:[place] [address] [address], [place] [address]IOAXNOGSV A ANTIBODY, [id number] 11:06:00 Test Item Value Reference Range Interpretation Comments HEPATITIS A IGG ANTIBODY (BEAKER) Reactive Nonreactive A (test code = 2797) Supervising Editor News Reel ID - AAHAMIDALPHA FETOPROTEIN (AFP), TUMOR [id number] 10:52:00 Test Item Value Reference Range Interpretation Comments ALPHA-FETOPROTEIN (BEAKER) (test code < ng/mL <10.0 = 1094) Supervising Editor News Reel ID - AAHAMIDHEPATITIS A ANTIBODY, [id number] 09:52:00 Test Item Value Reference Range Interpretation Comments HEPATITIS A IGM ANTIBODY (BEAKER) Nonreactive Nonreactive (test code = 498) Supervising Editor News Reel ID - AAHAMIDHEPATITIS B CORE ANTIBODY, [id number] 09:52:00 Test Item Value Reference Range Interpretation Comments HEPATITIS B CORE TOTAL ANTIBODY Nonreactive Nonreactive (BEAKER) (test code = 497) Supervising Editor News Reel ID - AAHAMIDHEPATITIS B SURFACE [id number] 09:52:00 Test Item Value Reference Range Interpretation Comments HEPATITIS B SURFACE ANTIBODY 256.5 mIU/mL <8.0 H (CONRAD) (test code = 647) Supervising Editor News Reel ID - AAHAMIDPOCT-GLUCOSE [id number] 08:18:00 Test Item Value Reference Range Interpretation Comments POC-GLUCOSE METER 190 mg/dL 70-110 H : Notified RN/MD: (CONRAD) (test code = TESTED AT [facility] 6720 1538) [facility], [address]: Supervising Editor News Reel/Techni elsie ID = [id number] for AN RICARDO DAUGHERTY U/S, ABDOMINAL, [id number] 06:31:00Evaluate spleen size and hepatic vesselsAbdomen limited area? Add comment if clarification is needed.- >LiverReason for exam:->New onset ascites - CT with nodular liver contour - please examine hepatic vasculature to r/[facility] 1955 Sex: MFINAL [...] MDReport Verified Date/Time: 11/16/2020 06:31:37 U/S, DUPLEX, [id number] 06:31:00Reason for exam:->hepatic vasculature [facility] 1955 Sex: MFINAL [...] Patel MDReport Verified Date/Time: 11/16/2020 06:31:37 POCT-GLUCOSE [id number] 22:44:00 Test Item Value Reference Range Interpretation Comments POC-GLUCOSE METER 191 mg/dL 70-110 H : TESTED A T [facility] 6720 (BEAKER) (test code = [facility], 1538) 81294: Supervising Editor News Reel/Techni elsie ID = [id number] for URBANOYUKI TOPETE POCT-GLUCOSE [id number] 22:26:00 Test Item Value Reference Range Interpretation Comments POC-GLUCOSE METER 211 mg/dL 70-110 H : TESTED A T [facility] 6720 (BEAKER) (test code = [facility], 1538) 82706: Supervising Editor News Reel/Techni elsie ID = [id number] for JAMES SPRING POCT-GLUCOSE [id number] 19:18:00 Test Item Value Reference Range Interpretation Comments POC-GLUCOSE METER 122 mg/dL 70-110 H : TESTED A T [facility] 6720 (BEAKER) (test code = [facility], 1538) 54002: Supervising Editor News Reel/Techni elsie ID = [id number] for OG DERICANYA, SANDHYA POCT-GLUCOSE [id number] 12:37:00 Test Item Value Reference Range Interpretation Comments POC-GLUCOSE METER 173 mg/dL 70-110 H : TESTED A T [facility] 6720 (BEAKER) (test code = [facility], 1538) 17671: Supervising Editor News Reel/Techni elsie ID = [id number] for RICARDO COOK HEPATITIS B SURFACE [id number] 11:33:00 Test Item Value Reference Range Interpretation Comments HEPATITIS B SURFACE ANTIGEN (2) Nonreactive Nonreactive ([facility]) (test code = 2585) Specimen is considered negative for HBsAg.HEPATITIS B SURFACE [id number] 11:33:00 Test Item Value Reference Range Interpretation Comments HEPATITIS B SURFACE ANTIBODY 248.1 mIU/mL <8.0 H ([facility]) (test code = 647) Supervising Editor News Reel ID - DBHEPATITIS B CORE ANTIBODY, [id number] 11:33:00 Test Item Value Reference Range Interpretation Comments HEPATITIS B CORE TOTAL ANTIBODY Nonreactive Nonreactive ([facility]) (test code = 497) Supervising Editor News Reel ID - DBHEMOGLOBIN [id number] 11:28:00 Test Item Value Reference Range Interpretation [...] 24 % 20-55 (test code = 2590) Supervising Editor News Reel ID - DBPOCT-GLUCOSE [id number] 08:18:00 Test Item Value Reference Range Interpretation Comments POC-GLUCOSE METER 204 mg/dL 70-110 H : Notified RN/MD: (BEAKER) (test code = TESTED AT [facility] 2881 0441) [facility], [address]: Supervising Editor News Reel/Techni elsie ID = [id number] for AN RICARDO DAUGHERTY BASIC METABOLIC [id number] 07:13:00 Test Item Value Reference Range Interpretation [...] S NOT APPLICABLE FOR DIALYSIS PATIEN TS. Supervising Editor News Reel ID - [id number] 07:11:00 Test Item Value Reference Range Interpretation Comments MAGNESIUM (BEAKER) (test code = 2.1 mg/dL 1.6-2.6 627) Supervising Editor News Reel ID - DBHEPATIC FUNCTION [id number] 07:11:00 Test Item Value Reference Range Interpretation [...] (test code = 15 U/L 6-55 347) Supervising Editor News Reel ID - DBHEPATITIS C [id number] 06:59:00 Test Item Value Reference Range Interpretation Comments HEPATITIS C ANTIBODY (BEAKER) Nonreactive Nonreactive (test code = 367) Supervising Editor News Reel ID - DBCBC W/PLT COUNT & AUTO [id number] 06:57:00 Test Item Value Reference Range Interpretation [...] PERCENT (BEAKER) (test code = 2801) PROTHROMBIN TIME/[id number] 05:55:00 Test Item Value Reference Range Interpretation [...] mechanical heart valves.RAD, CHEST, 1 VIEW, NON [id number] 01:26:00Reason for exam:->Weight loss, new ascites, volume overloadShould this be performed at the bedside?->Yes [facility] 1955 Sex: MFINAL [...] 70-110 H Performe d by certified GLUBED) 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 [facility] BASIC METABOLIC [id number] 13:42:00 Test Item Value Reference Range Interpretation [...] 8.2 mg/dL 8.0-10.5 N CA) CBC W/AUTO [id number] 13:28:00 Test Item Value Reference Range Interpretation [...] DIFF REQUIRED (test code NO = MDIFF) [id number] 11:56:00 Test Item Value Reference Range Interpretation Comments GLUBED (test code = 132 MG/DL 70-110 H Performe d by certified GLUBED) 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 [facility] Novel Coronavirus 2019 [id number] 20:44:00 Test Item Value Reference Range Interpretation Comments Novel Coronavirus 2019 Inhouse (test Negative Negative code = COVNONPUI) - XR CHEST 2 [id number] 10:48:00 FAX: Espinoza Santillan MD [phone] [place]: St: PRE Name: TROY FORTE [facility] : 1955 Age/S: 64/M [address] [place] [address] Blvd Unit#: [id number] Loc: [place] [address] Phys: Espinoza Villagran MD Acct: [id number] Dis Date: Status: PRE SDC PHONE #: [phone] Exam Date: 06/18/2020 0958 FAX #: [phone] Reason: PREOP- ESRD EXAMS: CPT CODE: [id number] XR CHEST 2 V 27239 CLINICAL HISTORY: PREOP- ESRD COMPARISON: March 22, [...] MD Technologist: RT Paolo(Melodie) Trnscrd Date/Time/By: 06/18/2020 (8971) : By: Ivonne Orig Print D/T: S: 06/18/2020 (0081) PAGE 1 Signed ReportBASIC METABOLIC [id number] 09:12:00 Test Item Value Reference Range Interpretation [...] = 8.0 mg/dL 8.0-10.5 N CA) PROTHROMBIN [id number] 09:06:00 Test Item Value Reference Range Interpretation [...] Bileaflet mecha nical valve in aortic position.2. [facility] hanical prosthetic valv es (high risk), 2.5 - 3.5 Presence of Lupus Anticoagu lant or Antiphospholi pid Antibodies, Pre vention of systemic e mbolism - Acute Myocard ial Infarction (t o prevent recurre nt infarct). THROMBOPLASTIN TIME [id number] 09:06:00 Test Item Value Reference Range Interpretation Comments THROMBOPLASTIN TIME PARTIAL (test Seconds 25.0-39.5 code = PTT) PROTHROMBIN [id number] 09:06:00 Test Item Value Reference Range Interpretation [...] Bileaflet mecha nical valve in aortic position.2. [facility] hanical prosthetic valv es (high risk), 2.5 - 3.5 Presence of Lupus Anticoagu lant or Antiphospholi pid Antibodies, Pre vention of systemic e mbolism - Acute Myocard ial Infarction (t o prevent recurre nt infarct). THROMBOPLASTIN TIME [id number] 09:06:00 Test Item Value Reference Range Interpretation Comments THROMBOPLASTIN TIME 37.2 Seconds 25.0-39.5 N Ther apeutic PARTIAL (test code = Range: 50.4 - 88.3 PTT) Seconds Effective 02/20/2019 CBC W/AUTO [id number] 08:58:00 Test Item Value Reference Range Interpretation [...] REQUIRED (test code NO = MDIFF) URINE [id number] 14:16:00 Test Item Value Reference Range Interpretation Comments CULTURE ([facility]) (test ESCHERICHIA COLI A 4 [...] Sulfamethoxazole (test code = 47) CULTURE ([facility]) (test A 80-89 ,000 col/mL code = 1095) Ekaterina albican s POCT-GLUCOSE [id number] 17:07:00 Test Item Value Reference Range Interpretation Comments POC-GLUCOSE METER 168 mg/dL 70-110 H TESTED AT [place] [address] ([facility] (test code = [facility]) [address] POCT-GLUCOSE [id number] 13:49:00 Test Item Value Reference Range Interpretation Comments POC-GLUCOSE METER 172 mg/dL 70-110 H TESTED AT [place] [address] ([employer]) (test code = [facility] [place] 1538) [address] BASIC METABOLIC [id number] 09:18:00 Test Item Value Reference Range Interpretation [...] H (BEAKER) (test code = 413) POCT-GLUCOSE [id number] 21:43:00 Test Item Value Reference Range Interpretation Comments POC-GLUCOSE METER 175 mg/dL 70-110 H TESTED AT [facility] 6720 (BEAKER) (test code = [facility] [place] 1538) [address] POCT-GLUCOSE [id number] 12:42:00 Test Item Value Reference Range Interpretation Comments POC-GLUCOSE METER 113 mg/dL 70-110 H TESTED AT [facility] 6720 ([facility]) (test code = [facility] [place] 1538) [address] BASIC METABOLIC [id number] 08:22:00 Test Item Value Reference Range Interpretation [...] (BEAKER) (test code = 412) PLATELET COUNT ([facility]) (test 306 K/CU MM 150-450 code = 756) MEAN PLATELET VOLUME (AKER) 9.9 fL 9.4-12.4 (test code = 754) NUCLEATED RED BLOOD CELLS 0 /100 WBC 0-0 (AKER) (test code = 413) POCT-GLUCOSE [id number] 21:40:00 Test Item Value Reference Range Interpretation Comments POC-GLUCOSE METER 159 mg/dL 70-110 H TESTED AT [place] [address] ([facility]) (test code = [facility] 1538) [address]67 POCT-GLUCOSE [id number] 17:24:00 Test Item Value Reference Range Interpretation Comments POC-GLUCOSE METER 203 mg/dL 70-110 H TESTED AT [place] [address] ([facility]) (test code = [facility] [place] 1538) [address] POCT-GLUCOSE [id number] 13:17:00 Test Item Value Reference Range Interpretation Comments POC-GLUCOSE METER 201 mg/dL 70-110 H TESTED AT [place] [address] ([facility]) (test code = [facility] [place] 1538) [address] POCT-GLUCOSE [id number] 08:11:00 Test Item Value Reference Range Interpretation Comments POC-GLUCOSE METER 199 mg/dL 70-110 H TESTED AT [place] [address] ([facility]) (test code = [facility] [place] 1538) [address] BASIC METABOLIC [id number] 07:40:00 Test Item Value Reference Range Interpretation [...] 0-0 (BEAKER) (test code = 413) POCT-GLUCOSE [id number] 23:55:00 Test Item Value Reference Range Interpretation Comments POC-GLUCOSE METER 198 mg/dL 70-110 H TESTED AT [place] [address] ([facility]) (test code = [facility] 1538) 78961 POCT-GLUCOSE [id number] 22:53:00 Test Item Value Reference Range Interpretation Comments POC-GLUCOSE METER 205 mg/dL 70-110 H TESTED AT [place] [address] ([facility]) (test code = [facility] 1538) 88075 POCT-GLUCOSE [id number] 18:28:00 Test Item Value Reference Range Interpretation Comments POC-GLUCOSE METER 252 mg/dL 70-110 H TESTED AT [place] [address] ([facility]) (test code = [facility] 1538) 84582 POCT-GLUCOSE [id number] 13:01:00 Test Item Value Reference Range Interpretation Comments POC-GLUCOSE METER 118 mg/dL 70-110 H TESTED AT [place] [address] ([facility]) (test code = [facility] 1538) 58684 BASIC METABOLIC [id number] 07:03:00 Test Item Value Reference Range Interpretation [...] NOT APPLICABLE FOR DIALYSIS PATIEN TS. POCT-GLUCOSE [id number] 21:53:00 Test Item Value Reference Range Interpretation Comments POC-GLUCOSE METER 189 mg/dL 70-110 H TESTED AT [facility] 6720 (BEAKER) (test code = [facility] 1538) 55446 POCT-GLUCOSE [id number] 18:21:00 Test Item Value Reference Range Interpretation Comments POC-GLUCOSE METER 207 mg/dL 70-110 H TESTED AT [facility] 6720 (BEAKER) (test code = [facility] 1538) 64419 POCT-GLUCOSE [id number] 12:36:00 Test Item Value Reference Range Interpretation Comments POC-GLUCOSE METER 95 mg/dL 70-110 TESTED AT [place] [address] ([facility]) (test code = [facility] [address] 1538) BASIC METABOLIC [id number] 09:00:00 Test Item Value Reference Range Interpretation [...] (BEAKER) (test code = 412) PLATELET COUNT ([facility]) (test 355 K/CU MM 150-450 code = 756) MEAN PLATELET VOLUME (AKER) 9.9 fL 9.4-12.4 (test code = 754) NUCLEATED RED BLOOD CELLS 1 /100 WBC 0-0 H ([facility]) (test code = 413) POCT-GLUCOSE [id number] 21:13:00 Test Item Value Reference Range Interpretation Comments POC-GLUCOSE METER 125 mg/dL 70-110 H TESTED AT [place] [address] ([facility]) (test code = [facility] 1538) 87378 POCT-GLUCOSE [id number] 13:58:00 Test Item Value Reference Range Interpretation Comments POC-GLUCOSE METER 150 mg/dL 70-110 H TESTED AT [place] [address] ([facility]) (test code = [facility] [place] [facility] 1538) 08418 POCT-GLUCOSE [id number] 09:25:00 Test Item Value Reference Range Interpretation Comments POC-GLUCOSE METER 67 mg/dL 70-110 L Notified R Lola BLOUNT/TESTED AT ([facility]) (test code = [place] [address] [place] 1538) [facility] 7703 0 POCT-GLUCOSE [id number] 09:25:00 Test Item Value Reference Range Interpretation Comments POC-GLUCOSE METER 65 mg/dL 70-110 L Notified R Lola BLOUNT/TESTED AT ([facility]) (test code = [place] [address] [place] 1538) [facility] 7703 0 BASIC METABOLIC [id number] 07:54:00 Test Item Value Reference Range Interpretation [...] 0-0 (BEAKER) (test code = 413) POCT-GLUCOSE [id number] 21:31:00 Test Item Value Reference Range Interpretation Comments POC-GLUCOSE METER 119 mg/dL 70-110 H TESTED AT [place] [address] (BEAKER) (test code = [facility] 1538) 13724 POCT-GLUCOSE [id number] 17:15:00 Test Item Value Reference Range Interpretation Comments POC-GLUCOSE METER 117 mg/dL 70-110 H TESTED AT [place] [address] (BEAKER) (test code = [facility] 1538) 96040 POCT-GLUCOSE [id number] 12:55:00 Test Item Value Reference Range Interpretation Comments POC-GLUCOSE METER 76 mg/dL 70-110 TESTED AT [place] [address] ([facility]) (test code = [facility] [address] 1538) BASIC METABOLIC [id number] 08:15:00 Test Item Value Reference Range Interpretation [...] NOT APPLICABLE FOR DIALYSIS PATIEN TS. POCT-GLUCOSE [id number] 08:11:00 Test Item Value Reference Range Interpretation Comments POC-GLUCOSE METER 101 mg/dL 70-110 TESTED AT [place] [address] (BEAKER) (test code = [facility] Melodie [facility] 1538) [address] CBC (HEMOGRAM ONLY)2019-06-09 06:58:00 Test Item Value [...] 0-0 (BEAKER) (test code = 413) POCT-GLUCOSE [id number] 20:40:00 Test Item Value Reference Range Interpretation Comments POC-GLUCOSE METER 116 mg/dL 70-110 H TESTED AT [place] [address] ([facility]) (test code = [facility] 1538) 96535 POCT-GLUCOSE [id number] 17:32:00 Test Item Value Reference Range Interpretation Comments POC-GLUCOSE METER 122 mg/dL 70-110 H TESTED AT [place] [address] ([facility]) (test code = [facility] 1538) 98417 POCT-GLUCOSE [id number] 17:14:00 Test Item Value Reference Range Interpretation Comments POC-GLUCOSE METER 112 mg/dL 70-110 H TESTED AT [place] [address] ([facility]) (test code = [facility] 1538) 92775 POCT-GLUCOSE [id number] 16:56:00 Test Item Value Reference Range Interpretation Comments POC-GLUCOSE METER 219 mg/dL 70-110 H TESTED AT [facility] 6720 (BEAKER) (test code = [facility] [facility] 1538) 05897 POCT-GLUCOSE [id number] 09:50:00 Test Item Value Reference Range Interpretation Comments POC-GLUCOSE METER 117 mg/dL 70-110 H TESTED AT [facility] 6720 (BEAKER) (test code = [facility] [place] [facility] 1538) 532[address] BASIC METABOLIC [id number] 07:14:00 Test Item Value Reference Range Interpretation [...] 0-0 (AKER) (test code = 413) POCT-GLUCOSE [id number] 21:59:00 Test Item Value Reference Range Interpretation Comments POC-GLUCOSE METER 78 mg/dL 70-110 TESTED AT [place] [address] ([facility]) (test code = [facility] 264[address] 1538) POCT-GLUCOSE [id number] 17:57:00 Test Item Value Reference Range Interpretation Comments POC-GLUCOSE METER 113 mg/dL 70-110 H TESTED AT [place] [address] ([facility]) (test code = [facility] 1538) 47368 POCT-GLUCOSE [id number] 14:30:00 Test Item Value Reference Range Interpretation Comments POC-GLUCOSE METER 227 mg/dL 70-110 H TESTED AT [place] [address] ([facility]) (test code = [facility] 1538) 91326 BASIC METABOLIC [id number] 08:20:00 Test Item Value Reference Range Interpretation [...] NOT APPLICABLE FOR DIALYSIS PATIEN TS. POCT-GLUCOSE [id number] 08:01:00 Test Item Value Reference Range Interpretation Comments POC-GLUCOSE METER 139 mg/dL 70-110 H TESTED AT [facility] 6720 (BEAKER) (test code = [facility] [place] 1538) [address] CBC (HEMOGRAM ONLY)2019-06-07 07:07:00 Test Item Value [...] 0-0 (BEAKER) (test code = 413) POCT-GLUCOSE [id number] 22:52:00 Test Item Value Reference Range Interpretation Comments POC-GLUCOSE METER 271 mg/dL 70-110 H TESTED AT [facility] 6720 (BEAKER) (test code = [facility] [place] 1538) 34089 POCT-GLUCOSE [id number] 17:23:00 Test Item Value Reference Range Interpretation Comments POC-GLUCOSE METER 273 mg/dL 70-110 H TESTED AT [facility] 6720 (BEAKER) (test code = [facility] 1538) 63283 POCT-GLUCOSE [id number] 12:33:00 Test Item Value Reference Range Interpretation Comments POC-GLUCOSE METER 107 mg/dL 70-110 TESTED AT [place] [address] (BEAKER) (test code = [facility] Melodie [facility] 1538) 129[address] BASIC METABOLIC [id number] 08:59:00 Test Item Value Reference Range Interpretation [...] 40.1-51.0 L 411) MEAN CORPUSCULAR VOLUME (AKER) 95.8 fL 79.0-92.2 H (test code = 753) MEAN CORPUSCULAR HEMOGLOBIN 27.0 pg 25.7-32.2 (BEAKER) (test code = 751) MEAN CORPUSCULAR HEMOGLOBIN CONC 28.2 GM/DL 32.3-36.5 L (BEAKER) (test code = 752) RED CELL DISTRIBUTION WIDTH 17.1 % 11.6-14.4 H (BEAKER) (test code = 412) PLATELET COUNT ([facility]) (test 330 K/CU MM 150-450 code = 756) MEAN PLATELET VOLUME (AKER) 10.1 fL 9.4-12.4 (test code = 754) NUCLEATED RED BLOOD CELLS 0 /100 WBC 0-0 ([facility]) (test code = 413) POCT-GLUCOSE [id number] 21:40:00 Test Item Value Reference Range Interpretation Comments POC-GLUCOSE METER 137 mg/dL 70-110 H TESTED AT [place] [address] ([facility]) (test code = [facility] 1538) 44841 POCT-GLUCOSE [id number] 18:27:00 Test Item Value Reference Range Interpretation Comments POC-GLUCOSE METER 219 mg/dL 70-110 H TESTED AT [place] [address] ([facility]) (test code = [facility] 1538) 74814 POCT-GLUCOSE [id number] 13:10:00 Test Item Value Reference Range Interpretation Comments POC-GLUCOSE METER 168 mg/dL 70-110 H TESTED AT [place] [address] ([facility]) (test code = [facility] 1538) 49640 POCT-GLUCOSE [id number] 10:22:00 Test Item Value Reference Range Interpretation Comments POC-GLUCOSE METER 161 mg/dL 70-110 H TESTED AT [place] [address] ([facility]) (test code = [facility] 1538) 72856 BASIC METABOLIC [id number] 04:41:00 Test Item Value Reference Range Interpretation [...] S NOT APPLICABLE FOR DIALYSIS PATIEN TS. [id number] 04:40:00 Test Item Value Reference Range Interpretation [...] 0-0 (BEAKER) (test code = 413) POCT-GLUCOSE [id number] 21:42:00 Test Item Value Reference Range Interpretation Comments POC-GLUCOSE METER 176 mg/dL 70-110 H TESTED AT [facility] 67 (BEAKER) (test code = [facility] [place] 1538) 29835 POCT-GLUCOSE [id number] 14:38:00 Test Item Value Reference Range Interpretation Comments POC-GLUCOSE METER 179 mg/dL 70-110 H TESTED AT [facility] 67 (BEAKER) (test code = [facility] [place] 1538) 77845 POCT-GLUCOSE [id number] 09:07:00 Test Item Value Reference Range Interpretation Comments POC-GLUCOSE METER 155 mg/dL 70-110 H TESTED AT [place] [address] ([facility]) (test code = [facility] [place] 1538) [address] BASIC METABOLIC [id number] 07:49:00 Test Item Value Reference Range Interpretation [...] S NOT APPLICABLE FOR DIALYSIS PATIEN TS. [id number] 07:44:00 Test Item Value Reference Range Interpretation [...] 0-0 (BEAKER) (test code = 413) POCT-GLUCOSE [id number] 22:34:00 Test Item Value Reference Range Interpretation Comments POC-GLUCOSE METER 246 mg/dL 70-110 H TESTED AT [place] [address] ([facility]) (test code = [facility] 1538) 72310 POCT-GLUCOSE [id number] 18:15:00 Test Item Value Reference Range Interpretation Comments POC-GLUCOSE METER 201 mg/dL 70-110 H TESTED AT [place] [address] ([facility]) (test code = [facility] 1538) 13328 POCT-GLUCOSE [id number] 13:12:00 Test Item Value Reference Range Interpretation Comments POC-GLUCOSE METER 211 mg/dL 70-110 H TESTED AT [place] [address] ([facility]) (test code = [facility] 1538) 03170 POCT-GLUCOSE [id number] 08:17:00 Test Item Value Reference Range Interpretation Comments POC-GLUCOSE METER 204 mg/dL 70-110 H TESTED AT [facility] 6720 (BEAKER) (test code = [facility] [place] 1538) [address] BASIC METABOLIC [id number] 08:05:00 Test Item Value Reference Range Interpretation [...] S NOT APPLICABLE FOR DIALYSIS PATIEN TS. [id number] 08:04:00 Test Item Value Reference Range Interpretation [...] MEAN CORPUSCULAR HEMOGLOBIN 28.0 pg 25.7-32.2 ([facility]) (test code = 751) MEAN CORPUSCULAR HEMOGLOBIN CONC 29.6 GM/DL 32.3-36.5 L ([facility]) (test code = 752) RED CELL DISTRIBUTION WIDTH 16.8 % 11.6-14.4 H ([facility]) (test code = 412) PLATELET COUNT ([facility]) (test 298 K/CU MM 150-450 code = 756) MEAN PLATELET VOLUME ([facility]) 9.9 fL 9.4-12.4 (test code = 754) NUCLEATED RED BLOOD CELLS 0 /100 WBC 0-0 ([facility]) (test code = 413) POCT-GLUCOSE [id number] 22:17:00 Test Item Value Reference Range Interpretation Comments POC-GLUCOSE METER 154 mg/dL 70-110 H TESTED AT [place] [address] ([facility]) (test code = [facility] [place] 1538) 8[address] POCT-GLUCOSE [id number] 22:14:00 Test Item Value Reference Range Interpretation Comments POC-GLUCOSE METER 172 mg/dL 70-110 H TESTED AT [place] [address] ([facility]) (test code = [facility] [place] 1538) 89234 POCT-GLUCOSE [id number] 17:34:00 Test Item Value Reference Range Interpretation Comments POC-GLUCOSE METER 187 mg/dL 70-110 H TESTED AT [place] [address] ([facility]) (test code = [place] [place] 1538) 384[address] POCT-GLUCOSE [id number] 12:28:00 Test Item Value Reference Range Interpretation Comments POC-GLUCOSE METER 192 mg/dL 70-110 H TESTED AT [place] [address] ([facility]) (test code = [facility] [place] 1538) 01985 POCT-GLUCOSE [id number] 07:43:00 Test Item Value Reference Range Interpretation Comments POC-GLUCOSE METER 132 mg/dL 70-110 H TESTED AT [place] [address] ([facility]) (test code = RAYMONDHUNTER Sew[place] 1538) [address] POCT-GLUCOSE [id number] 21:47:00 Test Item Value Reference Range Interpretation Comments POC-GLUCOSE METER 255 mg/dL 70-110 H TESTED AT [place] [address] ([facility]) (test code = CIERA [place] 1538) [address] POCT-GLUCOSE [id number] 11:45:00 Test Item Value Reference Range Interpretation Comments POC-GLUCOSE METER 159 mg/dL 70-110 H TESTED AT [place] [address] ([facility]) (test code = CIERA Sew[place] 1538) [address] [id number] 11:17:00 Test Item Value Reference Range Interpretation [...] 20-55 L (test code = 2590) POCT-GLUCOSE [id number] 08:44:00 Test Item Value Reference Range Interpretation Comments POC-GLUCOSE METER 170 mg/dL 70-110 H TESTED AT [place] [address] (BEAKER) (test code = [facility] Melodie [facility] 1538) [address] BASIC METABOLIC [id number] 04:42:00 Test Item Value Reference Range Interpretation [...] S NOT APPLICABLE FOR DIALYSIS PATIEN TS. [id number] 03:47:00 Test Item Value Reference Range Interpretation Comments MAGNESIUM (BEAKER) (test code = 2.1 mg/dL 1.6-2.6 627) CBC W/PLT COUNT & AUTO [id number] 03:36:00 Test Item Value Reference Range Interpretation [...] IMMATURE GRANULOCYTES-RELATIVE 1 % 0-1 PERCENT ([facility]) (test code = 2801) POCT-GLUCOSE [id number] 22:05:00 Test Item Value Reference Range Interpretation Comments POC-GLUCOSE METER 91 mg/dL 70-110 TESTED AT [place] [address] ([facility]) (test code = [facility] [address]) POCT-GLUCOSE [id number] 18:37:00 Test Item Value Reference Range Interpretation Comments POC-GLUCOSE METER 102 mg/dL 70-110 TESTED AT [place] [address] ([facility]) (test code = [facility] 1538) [id number] POCT-GLUCOSE [id number] 12:26:00 Test Item Value Reference Range Interpretation Comments POC-GLUCOSE METER 113 mg/dL 70-110 H TESTED AT [place] [address] ([facility]) (test code = [facility] 1538) [id number] POCT-GLUCOSE [id number] 08:07:00 Test Item Value Reference Range Interpretation Comments POC-GLUCOSE METER 73 mg/dL 70-110 TESTED AT [place] [address] ([facility]) (test code = [facility] [address] 1538) BLOOD [id number] 08:01:00 Test Item Value Reference Range Interpretation Comments CULTURE (BEAKER) (test No growth in 5 days code = 1095) BLOOD [id number] 08:01:00 Test Item Value Reference Range Interpretation Comments CULTURE (BEAKER) (test No growth in 5 days code = 1095) CBC W/PLT COUNT & AUTO [id number] 06:59:00 Test Item Value Reference Range Interpretation Comments WHITE BLOOD CELL COUNT ([facility]) 8.3 K/ L 3.5-10.5 (test code = 775) RED BLOOD CELL COUNT ([facility]) 2.60 M/ L 4.63-6.08 L (test code [...] (BEAKER) (test code = 2801) BASIC METABOLIC [id number] 06:27:00 Test Item Value Reference Range Interpretation [...] S NOT APPLICABLE FOR DIALYSIS PATIEN TS. [id number] 06:18:00 Test Item Value Reference Range Interpretation Comments MAGNESIUM (BEAKER) 1.6 mg/dL 1.6-2.6 Specimen slightly (test code = 627) hemolyzed URINALYSIS W/ REFLEX URINE [id number] 23:41:00 Test Item Value Reference Range Interpretation [...] 516) SOURCE(BEAKER) (test code = 2795) POCT-GLUCOSE [id number] 21:42:00 Test Item Value Reference Range Interpretation Comments POC-GLUCOSE METER 139 mg/dL 70-110 H TESTED AT [place] [address] (BEAKER) (test code = [facility] 1538) [address] POCT-GLUCOSE [id number] 20:39:00 Test Item Value Reference Range Interpretation Comments POC-GLUCOSE METER 65 mg/dL 70-110 L TESTED AT [place] [address] [facility] (test code = [facility] [address] 1538) POCT-GLUCOSE [id number] 17:54:00 Test Item Value Reference Range Interpretation Comments POC-GLUCOSE METER 78 mg/dL 70-110 TESTED AT [place] [address] [facility] (test code = [facility] [address] 1538) CBC W/PLT COUNT & AUTO [id number] 10:44:00 Test Item Value Reference Range Interpretation [...] 3438) Received comment: User comments: Slide comments:POCT-GLUCOSE [id number] 07:50:00 Test Item Value Reference Range Interpretation Comments POC-GLUCOSE METER 70 mg/dL 70-110 TESTED AT [facility] (BEAKER) (test code = [facility] [place] [facility] [address] 1538) BASIC METABOLIC [id number] 06:36:00 Test Item Value Reference Range Interpretation [...] S NOT APPLICABLE FOR DIALYSIS PATIEN TS. [id number] 06:33:00 Test Item Value Reference Range Interpretation Comments MAGNESIUM (BEAKER) (test code = 2.2 mg/dL 1.6-2.6 627) POCT-GLUCOSE [id number] 22:28:00 Test Item Value Reference Range Interpretation Comments POC-GLUCOSE METER 120 mg/dL 70-110 H TESTED AT [facility] (BEAKER) (test code = [facility] Melodie [facility] 1538) [address] POCT-GLUCOSE [id number] 19:33:00 Test Item Value Reference Range Interpretation Comments POC-GLUCOSE METER 166 mg/dL 70-110 H TESTED AT [facility] 67[facility] (BEAKER) (test code = [facility] 1538) [address] POCT-GLUCOSE [id number] 13:30:00 Test Item Value Reference Range Interpretation Comments POC-GLUCOSE METER 168 mg/dL 70-110 H TESTED AT [facility] 67[address] (BEAKER) (test code = [place] 1538) [address] POCT-GLUCOSE [id number] 07:37:00 Test Item Value Reference Range Interpretation Comments POC-GLUCOSE METER 117 mg/dL 70-110 H TESTED AT [facility] 67[facility] (BEAKER) (test code = [place] 1538) [address] BASIC METABOLIC [id number] 06:57:00 Test Item Value Reference Range Interpretation [...] S NOT APPLICABLE FOR DIALYSIS PATIEN TS. [id number] 06:52:00 Test Item Value Reference Range Interpretation [...] 40.1-51.0 L 411) MEAN CORPUSCULAR VOLUME ([facility]) 92.5 fL 79.0-92.2 H (test code = 753) MEAN CORPUSCULAR HEMOGLOBIN 28.1 pg 25.7-32.2 ([facility]) (test code = 751) MEAN CORPUSCULAR HEMOGLOBIN CONC 30.3 GM/DL 32.3-36.5 L ([facility]) (test code = 752) RED CELL DISTRIBUTION WIDTH 17.1 % 11.6-14.4 H ([facility]) (test code = 412) PLATELET COUNT ([facility]) (test 180 K/CU MM 150-450 code = 756) MEAN PLATELET VOLUME ([facility]) 10.6 fL 9.4-12.4 (test code = 754) NUCLEATED RED BLOOD CELLS 0 /100 WBC 0-0 ([facility]) (test code = 413) POCT-GLUCOSE [id number] 21:52:00 Test Item Value Reference Range Interpretation Comments POC-GLUCOSE METER 174 mg/dL 70-110 H TESTED AT [place] [address] ([facility]) (test code = [facility] 1538) [address] POCT-GLUCOSE [id number] 17:58:00 Test Item Value Reference Range Interpretation Comments POC-GLUCOSE METER 151 mg/dL 70-110 H TESTED AT [place] [address] ([facility]) (test code = [facility] 1538) [address] POCT-GLUCOSE [id number] 12:35:00 Test Item Value Reference Range Interpretation Comments POC-GLUCOSE METER 225 mg/dL 70-110 H TESTED AT [place] [address] ([facility]) (test code = [facility] [facility] 1538) [address] HEMOGLOBIN [id number] 08:34:00 Test Item Value Reference Range Interpretation Comments HEMOGLOBIN A1C ([facility]) (test code = 6.3 % 4.3-6.1 H 368) POCT-GLUCOSE [id number] 07:56:00 Test Item Value Reference Range Interpretation Comments POC-GLUCOSE METER 141 mg/dL 70-110 H TESTED AT [place] [address] ([facility]) (test code = [facility] 1538) [address] CBC (HEMOGRAM ONLY)2019-05-28 06:12:00 Test Item Value [...] (BEAKER) (test code = 413) BASIC METABOLIC [id number] 06:02:00 Test Item Value Reference Range Interpretation [...] 697) EGFR (BEAKER) (test 14 mL/min/1.73 ESTIMA ONVA GFR IS code = 1092) sq m NOT ACCURATE CREATININE CLEARANCE IN PREDICTING GLOMERULAR FILTRATION RATE . ESTIMATED GFR I S NOT APPLICABLE FOR DIALYSIS PATIEN TS. POCT-GLUCOSE [id number] 22:24:00 Test Item Value Reference Range Interpretation Comments POC-GLUCOSE METER 171 mg/dL 70-110 H TESTED AT [facility] ([facility]) (test code = [facility] 1538) [address] HEPATITIS B [id number] 20:01:00 Test Item Value Reference Range Interpretation Comments HEPATITIS B CORE TOTAL ANTIBODY Nonreactive Nonreactive (BEAKER) (test code = 497) HEPATITIS B SURFACE ANTIBODY < mIU/mL <8.0 (BEAKER) (test code = 647) HEPATITIS B SURFACE ANTIGEN (2) Nonreactive Nonreactive (BEAKER) (test code = 2585) POCT-GLUCOSE [id number] 17:37:00 Test Item Value Reference Range Interpretation Comments POC-GLUCOSE METER 158 mg/dL 70-110 H TESTED AT [place] [address] ([facility]) (test code = [facility] 1538) [address] CBC (HEMOGRAM ONLY)2019-05-27 16:37:00 Test Item Value [...] (BEAKER) (test code = 413) BASIC METABOLIC [id number] 16:28:00 Test Item Value Reference Range Interpretation [...] NOT APPLICABLE FOR DIALYSIS PATIEN TS. POCT-GLUCOSE [id number] 12:29:00 Test Item Value Reference Range Interpretation Comments POC-GLUCOSE METER 155 mg/dL 70-110 H TESTED AT [facility] 67[address] (BEAKER) (test code = [place] 1538) [address] [id number] 09:20:00 Test Item Value Reference Range Interpretation Comments PHOSPHORUS (BEAKER) (test code = 3.4 mg/dL 2.3-4.7 604) [id number] 09:20:00 Test Item Value Reference Range Interpretation Comments MAGNESIUM (BEAKER) (test code = 2.0 mg/dL 1.6-2.6 627) PH, [id number] 08:49:00 Test Item Value Reference Range Interpretation Comments PH ARTERIAL (BEAKER) (test code = 383) 7.35 7.35-7.45 POCT-GLUCOSE [id number] 08:11:00 Test Item Value Reference Range Interpretation Comments POC-GLUCOSE METER 137 mg/dL 70-110 H TESTED AT [facility] 67[address] (BEAKER) (test code = [place] 1538) [address] BASIC METABOLIC [id number] 03:25:00 Test Item Value Reference Range Interpretation [...] PATIEN TS. CBC W/PLT COUNT & AUTO [id number] 03:11:00 Test Item Value Reference Range Interpretation [...] H PERCENT (BEAKER) (test code = 2801) [id number] 02:48:00 Test Item Value Reference Range Interpretation Comments MAGNESIUM (BEAKER) 2.2 mg/dL 1.6-2.6 Specimen slightly (test code = 627) hemolyzed [id number] 02:48:00 Test Item Value Reference Range Interpretation Comments PHOSPHORUS (BEAKER) 3.9 mg/dL 2.3-4.7 Specimen slightly (test code = 604) hemolyzed PH, [id number] 02:08:00 Test Item Value Reference Range Interpretation Comments PH ARTERIAL (BEAKER) (test code = 383) 7.41 7.35-7.45 RAD, CHEST, 1 VIEW, NON [id number] 22:15:00Reason for exam:->line placementShould this be performed [...] Stable surgical changes.Additional findings: None. Signed: Marya Arredondoeport Verified Date/Time: 05/26/2019 22:15:38 [facility] METABOLIC [id number] 17:25:00 Test Item Value Reference Range Interpretation [...] NOT APPLICABLE FOR DIALYSIS PATIEN TS. POCT-GLUCOSE [id number] 17:09:00 Test Item Value Reference Range Interpretation Comments POC-GLUCOSE METER 233 mg/dL 70-110 H TESTED AT [facility] 67[facility] ([facility]) (test code = [facility] 1538) [address] TROPONIN [id number] 12:31:00 Test Item Value Reference Range Interpretation [...] failure, acidosis, acute neurological disease, and persistent tachyarrhythmia.[id number] 12:26:00 Test Item Value Reference Range Interpretation Comments CALCIUM (BEAKER) (test code = 697) 7.7 mg/dL 8.4-10.2 L [id number] 12:24:00 Test Item Value Reference Range Interpretation Comments POTASSIUM (BEAKER) (test code = 4.4 meq/L 3.5-5.1 379) [id number] 12:24:00 Test Item Value Reference Range Interpretation Comments MAGNESIUM (BEAKER) (test code = 2.2 mg/dL 1.6-2.6 627) [id number] 12:24:00 Test Item Value Reference Range Interpretation Comments SODIUM (BEAKER) (test code = 381) 128 meq/L 136-145 L POCT-GLUCOSE [id number] 12:15:00 Test Item Value Reference Range Interpretation Comments POC-GLUCOSE METER 281 mg/dL 70-110 H TESTED AT [facility] 67[facility] ([facility]) (test code = [facility] 1538) [address] PH, [id number] 11:52:00 Test Item Value Reference Range Interpretation Comments PH ARTERIAL (BEAKER) (test code = 383) 7.36 7.35-7.45 RAD, CHEST, 1 VIEW, NON [id number] 08:05:00Reason for exam:->central line placementFINAL REPORT CLINICAL [...] Villagran MDReport Verified Date/Time:05/26/2019 08:05:54 Reading Location: [facility] C013V Neuro Reading Room TROPONIN [id number] 06:42:00 Test Item Value Reference Range Interpretation [...] acidosis, acute neurological disease, and persistent tachyarrhythmia.TROPONIN [id number] 06:41:00 Test Item Value Reference Range Interpretation [...] acute neurological disease, and persistent tachyarrhythmia.BASIC METABOLIC [id number] 06:23:00 Test Item Value Reference Range Interpretation [...] NOT APPLICABLE FOR DIALYSIS PATIEN TS. PROTHROMBIN [id number] 06:20:00 Test Item Value Reference Range Interpretation [...] INR is2.5-3.5 for patients wiht mechanical heart valves.[id number] 06:17:00 Test Item Value Reference Range Interpretation Comments PHOSPHORUS (BEAKER) (test code = 4.5 mg/dL 2.3-4.7 604) [id number] 06:17:00 Test Item Value Reference Range Interpretation Comments MAGNESIUM (BEAKER) (test code = 2.4 mg/dL 1.6-2.6 627) CBC W/PLT COUNT & AUTO [id number] 06:03:00 Test Item Value Reference Range Interpretation [...] (test code = 2801) TSH/FREE T4 IF [id number] 22:17:00 Test Item Value Reference Range Interpretation Comments THYROID STIMULATING HORMONE 3.33 uIU/mL 0.35-4.94 (BEAKER) (test code = 772) TROPONIN [id number] 21:59:00 Test Item Value Reference Range Interpretation [...] H (BEAKER) (test code = 700) C-REACTIVE [id number] 21:51:00 Test Item Value Reference Range Interpretation Comments C-REACTIVE PROTEIN (BEAKER) (test 13.88 mg/dL 0.00-0.50 H code = 676) COMPREHENSIVE METABOLIC [id number] 21:51:00 Test Item Value Reference Range Interpretation [...] PATIEN TS. CBC W/PLT COUNT & AUTO [id number] 21:20:00 Test Item Value Reference Range Interpretation [...] 0-1 H PERCENT (BEAKER) (test code = 1591)
[2022-05-03 08:12] LABS: Protime INR 1.11
[2022-05-03 08:25] LABS: Absolute Lymphocytes (CBC) 0.1 K/uL (0.7-4.9); Hematocrit 39.3 % (39.6-49.0); Lymphocytes % 1.6 % (15.3-44.8); MCV 97.7 fL (80-100); MPV 8.4 fL (7.6-11.3); RBC Red Blood Cell Count 4.02 M/uL (4.33-5.43)
--- NOTE | 2022-05-03 08:33 | ER ---
Nurse's Notes [facility] Name: Benji Villalpando Age: 66 yrs Sex: Male : 1955 Arrival Date: 05/03/2022 Time: 07:23 Bed 2 Private MD: Diagnosis: Hypoxemia;Unspecified combined systolic (congestive) and diastolic (congestive) heart failure;End stage renal disease;Acute pulmonary edema Presentation: 05/03 07:25 Chief complaint: EMS states: Pt from home, c/o difficulty breathing, hx of CHF, ph dialysis and cirrhosis, Spo2 on home oxygen 45% on 2L NC, BP also low at 90s systolic, placed on NRB mask and improved to 92% upon arrival to ED, was dialyzed yesterday. Coronavirus screen: Vaccine status: Patient reports receiving the 2nd dose of the covid vaccine. Ebola Screen: No symptoms or risks identified at this time. Initial Sepsis Screen: Does the patient meet any 2 criteria? Altered Mental Status. HR > 90 bpm. Does the patient have a suspected source of infection? No. Patient's initial sepsis screen is negative. Risk Assessment: Do you want to hurt yourself or someone else? Patient reports no desire to harm self or others. Onset of symptoms was May 03, 2022. 07:25 Method Of Arrival: EMS: [facility] 07:25 Acuity: [facility] 2 ph Triage Assessment: 07:30 General: Appears in no apparent distress. Behavior is drowsy. Pain: Unable to use pain ph scale. Patient is disoriented. Neuro: Level of Consciousness is confused, lethargic, listless, Oriented to person. Cardiovascular: Capillary refill < 3 seconds in bilateral fingers Patient's skin is warm and dry. Dialysis shunt: in the left arm, with palpable thrill, with auscultated bruit, with no erythema, with no edema, no bleeding noted. Respiratory: Airway is patent Respiratory effort is labored, Respiratory pattern is tachypnea Breath sounds are diminished in right posterior middle lobe and right posterior lower lobe. GI: No signs and/or symptoms were reported involving the gastrointestinal system. Abdomen is non-distended, dressing noted to RLQ, son reports that pt had paracentesis recently at [facility]. Derm: Skin is fragile, is thin, Skin is pink, warm \T\ dry. Musculoskeletal: Circulation, motion, and sensation intact. Range of motion: intact in all extremities. Historical: - Allergies: 07:38 No Known Drug Allergies; ph - PMHx: 07:38 Anemia; CHF; chronic kidney disease; Diabetes - NIDDM; Dialysis T-T-S; Hyperlipidemia; ph Hypertension; Hypothyroidism; Myocardial infarction; RENAL FAILURE; - PSHx: 07:38 fistula; heart bypass; pacemaker; ph - Immunization history:: Adult Immunizations unknown. - Social history:: Smoking status: unknown. - Family history:: not pertinent. - Hospitalizations: : No recent hospitalization is reported. Screenin:39 Abuse screen: Denies threats or abuse. Denies injuries from another. Nutritional ph screening: No deficits noted. Tuberculosis screening: No symptoms or risk factors identified. Fall Risk None identified. Assessment: 09:00 Reassessment: Patient appears in no apparent distress at this time. Patient and/or ph family updated on plan of care and expected duration. Pain level reassessed. Son at bedside reports that pt is trying to remove NRB mask, pt also noted to be trying to remove pulse oximeter, pt encourage to keep mask on to help w/ breathing, Spo2 remains 92% on NRB mask. 09:52 Reassessment: Pt taken to radiology for US thoracentesis, Dr Hernandez at bedside to speak ph pt's family about POC. 10:30 Reassessment: Son provided POA and other legal papers, copies made and placed in pt's ph chart. Son's contact info: Brian Villalpando, [phone]. 12:59 Reassessment: Patient appears in no apparent distress at this time. Patient and/or ph family updated on plan of care and expected duration. Pain level reassessed. Pt orientation has improved, able to follow commands, oriented to person and place, remains drowsy, attempted to place pt on NC at 5L/min but Spo2 remained 88%, also attempted venti mask w/ similar results, pt currently on NRB mask w/ Spo2 maintained 91-94%, BP remains low as well however pt is noted to be lying on L side w/ BP cuff on R arm so readings are not accurate, pt encouraged to lie on back for BP readings but only does so briefly before rolling back onto L side. 13:37 Reassessment: Pt assisted to roll onto R side, states that he is cold and requesting ph socks. 15:30 Reassessment: Patient appears in no apparent distress at this time. Patient and/or ph family updated on plan of care and expected duration. Pain level reassessed. Pt sleeping, awakens easily, states again that he is cold, another blanket provided to pt, BP improved at 91/77, Spo2 97% on NRB. 17:00 Reassessment: Patient appears in no apparent distress at this time. No changes from ph previously documented assessment. Patient and/or family updated on plan of care and expected duration. Pain level reassessed. 18:00 Reassessment: Patient appears in no apparent distress at this time. Patient and/or ph family updated on plan of care and expected duration. Pain level reassessed. Vital Signs: 07:25 BP 107 / 67; Pulse 103; Resp 18; Temp 97.1; Pulse Ox 92% on Non-rebreather mask; ph 08:30 BP 93 / 67; Pulse 87; Resp 16; Pulse Ox 95% on 100% Non-rebreather mask; ph 09:37 BP 101 / 71; Pulse 86; Resp 18; Pulse Ox 93% on Non-rebreather mask; ph 10:00 ph 11:29 BP 84 / 55; Pulse 79; Resp 18; Pulse Ox 96% on Non-rebreather mask; ph 12:30 BP 89 / 71; Pulse 78; Resp 16; Pulse Ox 88% on 50% Venturi mask; ph 13:14 BP 95 / 52; Pulse 78; Resp 18; Pulse Ox 94% on 100% Non-rebreather mask; ph 13:39 BP 90 / 65; Pulse 78; Resp 18; Pulse Ox 97% on Non-rebreather mask; ph 14:05 BP 98 / 72; Pulse 76; Resp 14; Pulse Ox 94% on 100% Non-rebreather mask; ph 14:30 BP 98 / 80; Pulse 78; Resp 18; Pulse Ox 94% on 100% Non-rebreather mask; ph 15:00 BP 91 / 77; Pulse 75; Resp 16; Pulse Ox 100% on Non-rebreather mask; ph 15:31 BP 91 / 77; Pulse 76; Resp 18; Pulse Ox 96% on 100% Non-rebreather mask; ph 16:00 BP 94 / 67; Pulse 76; Resp 18; Pulse Ox 94% on Non-rebreather mask; ph 16:30 BP 85 / 46 RA; Pulse 76; Resp 18; Pulse Ox 94% on Non-rebreather mask; ph 17:00 BP 91 / 52; Pulse 77; Resp 18; Pulse Ox 95% on Non-rebreather mask; ph 18:00 BP 91 / 61; Pulse 82; Resp 18; Pulse Ox 96% on Non-rebreather mask; ph 18:30 BP 105 / 67; Pulse 77; Resp 18; Pulse Ox 97% on Non-rebreather mask; ph 20:22 BP 95 / 62; Pulse 75; Resp 13 S; Pulse Ox 95% on 10% Non-rebreather mask; as6 10:00 pt in radiology ph 16:30 pt lying on L side ph ED Course: 07:23 Patient arrived in ED. rn 07:23 Eugene Simons MD is Attending Physician. rn 07:25 Ekaterina Love RN is Primary Nurse. ph 07:29 Triage completed. ph 07:29 Arm band placed on Patient placed in an exam room. ph 07:39 Patient has correct armband on for positive identification. Placed in gown. Bed in low ph position. Call light in reach. Side rails up X2. Client placed on continuous cardiac and pulse oximetry monitoring. NIBP monitoring applied. Door closed. Warm blanket given. 08:27 XRAY CXR (1 view) In Process Unspecified. EDMS 08:31 Elizabeth Phelps MD is Hospitalizing Provider. rn 09:35 Thoracentesis w/ US Guide In Process Unspecified. EDMS 09:38 Maintain EMS IV. Dressing intact. Good blood return noted. Site clean \T\ dry. Gauge \T\ ph site: 20 RAC. IV is patent, with fluids infusing freely, with good blood return, Flushed right antecubital. 10:49 Chest Single View In Process Unspecified. EDMS 15:34 No provider procedures requiring assistance completed. Patient admitted, IV remains in ph place. Administered Medications: 10:56 Drug: NS 0.9% 250 ml Route: IV; Rate: bolus; Site: right antecubital; ph 12:00 Follow up: Response: No adverse reaction; IV Status: Completed infusion; IV Intake: ph 250ml 12:53 Drug: NS 0.9% 250 ml Route: IV; Rate: bolus; Site: right antecubital; ph 13:45 Follow up: Response: No adverse reaction; IV Status: Completed infusion; IV Intake: ph 250ml Medication: 07:39 VIS not applicable for this client. ph Intake: 12:00 IV: 250ml; Total: 250ml. ph 13:45 IV: 250ml; Total: 500ml. ph Outcome: 08:32 Decision to Hospitalize by Provider. rn 19:53 Condition: stable as6 19:53 Instructed on the need for admit. 20:21 Admitted to Tele accompanied by tech, via stretcher, room 406, with oxygen, with chart, as6 Report called to Sg INIGUEZ 20:23 Patient left the ED. as6 Signatures: Dispatcher [employer] EDMS Eugene Simons MD MD rn Hall, Patricia, RN RN ph Slawson, Ashby, RN RN as6
--- NOTE | 2022-05-03 08:33 | EDPHYS ---
Physician Documentation [facility] Name: Benji Villalpando Age: 66 yrs Sex: Male : 1955 Arrival Date: 05/03/2022 Time: 07:23 Bed 2 Private MD: ED Physician Eugene Simons HPI: 05/03 07:44 This 66 yrs old Male presents to ER via EMS with complaints of sob. rn 07:44 The patient has shortness of breath at rest. Onset: The symptoms/episode began/occurred rn at an unknown time. Duration: The symptoms are continuous. The patient's shortness of breath is aggravated by nothing, is alleviated by application of supplemental oxygen. Associated signs and symptoms: Pertinent positives: This patient does not have any pertinent positive signs or symptoms associated with shortness of breath. Pertinent negatives: chest pain, non-productive cough, productive cough, fever, hemoptysis. Severity of symptoms: At their worst the symptoms were moderate in the emergency department the symptoms are unchanged. The patient has experienced similar episodes in the past. The patient has been recently seen by a physician:. EMS reports family called for low oxygen, noted to be 45% on 2 L nasal cannula at home. Recent admission for ascites and volume overload. Put on oxygen and O2 improved. Pt reports pain all over. . Historical: - Allergies: 07:38 No Known Drug Allergies; ph - PMHx: 07:38 Anemia; CHF; chronic kidney disease; Diabetes - NIDDM; Dialysis T-T-S; Hyperlipidemia; ph Hypertension; Hypothyroidism; Myocardial infarction; RENAL FAILURE; - PSHx: 07:38 fistula; heart bypass; pacemaker; ph - Immunization history:: Adult Immunizations unknown. - Social history:: Smoking status: unknown. - Family history:: not pertinent. - Hospitalizations: : No recent hospitalization is reported. ROS: 07:44 Constitutional: Negative for fever, chills, and weight loss, Eyes: Negative for injury, rn pain, redness, and discharge, Cardiovascular: Negative for chest pain, palpitations, and edema, Respiratory: Negative for wheezing, and pleuritic chest pain, Abdomen/GI: Negative for abdominal pain, nausea, vomiting, diarrhea, and constipation, Back: Negative for injury and pain, MS/Extremity: Negative for injury and deformity, Skin: Negative for injury, rash, and discoloration, Neuro: Negative for numbness, tingling, and seizure. Exam: 07:44 Constitutional: This is a well developed, well nourished patient who is awake, alert, rn and in no acute distress. Head/Face: Normocephalic, atraumatic. Eyes: Periorbital areas with no swelling, redness, or edema. Cardiovascular: Tachycardic, regular. No pulse deficits. Respiratory: No increased work of breathing, no retractions or nasal flaring. Abdomen/GI: Soft, non-tender Skin: Warm, dry MS/ Extremity: Pulses equal, no cyanosis. Neuro: Awake and alert, GCS 15 Vital Signs: 07:25 BP 107 / 67; Pulse 103; Resp 18; Temp 97.1; Pulse Ox 92% on Non-rebreather mask; ph 08:30 BP 93 / 67; Pulse 87; Resp 16; Pulse Ox 95% on 100% Non-rebreather mask; ph 09:37 BP 101 / 71; Pulse 86; Resp 18; Pulse Ox 93% on Non-rebreather mask; ph 10:00 ph 11:29 BP 84 / 55; Pulse 79; Resp 18; Pulse Ox 96% on Non-rebreather mask; ph 12:30 BP 89 / 71; Pulse 78; Resp 16; Pulse Ox 88% on 50% Venturi mask; ph 13:14 BP 95 / 52; Pulse 78; Resp 18; Pulse Ox 94% on 100% Non-rebreather mask; ph 13:39 BP 90 / 65; Pulse 78; Resp 18; Pulse Ox 97% on Non-rebreather mask; ph 14:05 BP 98 / 72; Pulse 76; Resp 14; Pulse Ox 94% on 100% Non-rebreather mask; ph 14:30 BP 98 / 80; Pulse 78; Resp 18; Pulse Ox 94% on 100% Non-rebreather mask; ph 15:00 BP 91 / 77; Pulse 75; Resp 16; Pulse Ox 100% on Non-rebreather mask; ph 15:31 BP 91 / 77; Pulse 76; Resp 18; Pulse Ox 96% on 100% Non-rebreather mask; ph 16:00 BP 94 / 67; Pulse 76; Resp 18; Pulse Ox 94% on Non-rebreather mask; ph 16:30 BP 85 / 46 RA; Pulse 76; Resp 18; Pulse Ox 94% on Non-rebreather mask; ph 17:00 BP 91 / 52; Pulse 77; Resp 18; Pulse Ox 95% on Non-rebreather mask; ph 18:00 BP 91 / 61; Pulse 82; Resp 18; Pulse Ox 96% on Non-rebreather mask; ph 18:30 BP 105 / 67; Pulse 77; Resp 18; Pulse Ox 97% on Non-rebreather mask; ph 20:22 BP 95 / 62; Pulse 75; Resp 13 S; Pulse Ox 95% on 10% Non-rebreather mask; as6 10:00 pt in radiology ph 16:30 pt lying on L side ph MDM: 07:23 Patient medically screened. rn 08:31 Differential diagnosis: Anemia CHF exacerbation, Myocardial Infarction pneumonia, rn Pneumothorax pulmonary edema, Sepsis. Data reviewed: vital signs, nurses notes, lab test result(s), EKG, radiologic studies, plain films, and as a result, I will admit patient. Counseling: I had a detailed discussion with the patient and/or guardian regarding: the historical points, exam findings, and any diagnostic results supporting the discharge/admit diagnosis, lab results, radiology results, the need for further work-up and treatment in the hospital. Admission orders: after a detailed discussion of the patient's condition and case, the admit orders are written by me. 05/03 07:24 Order name: BMP; Complete Time: 09: 05/03 07:24 Order name: Blood Culture Adult (2) rn 05/03 07:24 Order name: CBC with Diff; Complete Time: 10:10 05/03 07:24 Order name: Hepatic Function; Complete Time: 09:00 rn 05/03 07:24 Order name: Magnesium; Complete Time: 09:00 rn 05/03 07:24 Order name: NT PRO-BNP; Complete Time: 09:00 rn 05/03 07:24 Order name: PT-INR; Complete Time: 08:30 rn 05/03 07:24 Order name: Ptt, Activated; Complete Time: 08:30 05/03 07:24 Order name: Procalcitonin; Complete Time: 12:16 05/03 07:24 Order name: SARS-COV-2 RT PCR (Document "Date of Onset" if Symptomatic); Complete Time: rn 10:05/03 09:01 Order name: AMMONIA; Complete Time: 12:16 rn 05/03 09:01 Order name: Lactate; Complete Time: 12:16 rn 05/03 09:46 Order name: ALBUMIN, PLEURAL FLUID EDMS 05/03 09:46 Order name: Body Fluid Cell Count; Complete Time: 17:41 EDMS 05/03 07:24 Order name: XRAY CXR (1 view); Complete Time: 09:16 rn 05/03 07:24 Order name: EKG; Complete Time: 07:25 rn 05/03 09:25 Order name: Thoracentesis w/ US Guide; Complete Time: 13:08 EDMS 05/03 09:46 Order name: GLUCOSE, PLEURAL FLUID EDMS 05/03 09:46 Order name: LD, PLEURAL FLUID EDMS 05/03 09:46 Order name: TOTAL PROTEIN, PLEURAL FLUID EDMS 05/03 09:46 Order name: Body Fluid Culture EDMS 05/03 09:53 Order name: CBC Smear Scan; Complete Time: 10:10 EDMS 05/03 10:28 Order name: Chest Single View; Complete Time: 12:16 EDMS 05/03 16:49 Order name: CONS Physician Consult EDMS 05/03 16:49 Order name: CBC with Automated Diff EDMS 05/03 16:49 Order name: CBC with Automated Diff EDMS 05/03 16:49 Order name: Comprehensive Metabolic Panel EDMS 05/03 16:49 Order name: Comprehensive Metabolic Panel EDMS 05/03 07:24 Order name: Cardiac monitoring; Complete Time: 08:05 rn 05/03 07:24 Order name: EKG - Nurse/Tech; Complete Time: 11:01 rn 05/03 07:24 Order name: IV Saline Lock; Complete Time: 08:05 rn 05/03 07:24 Order name: Labs collected and sent; Complete Time: 08:05 rn 05/03 07:24 Order name: O2 Per Protocol; Complete Time: 08:05 rn 05/03 07:24 Order name: O2 Sat Monitoring; Complete Time: 08:05 rn 05/03 16:49 Order name: Renal EDMS Administered Medications: 10:56 Drug: NS 0.9% 250 ml Route: IV; Rate: bolus; Site: right antecubital; ph 12:00 Follow up: Response: No adverse reaction; IV Status: Completed infusion; IV Intake: ph 250ml 12:53 Drug: NS 0.9% 250 ml Route: IV; Rate: bolus; Site: right antecubital; ph 13:45 Follow up: Response: No adverse reaction; IV Status: Completed infusion; IV Intake: ph 250ml Disposition Summary: 05/03/22 08:32 Hospitalization Ordered Hospitalization Status: Inpatient Admission rn Provider: Elizabeth Phelps rn Condition: Stable rn Problem: an ongoing problem rn Symptoms: have improved rn Bed/Room Type: Standard rn Location: Telemetry/MedSurg (Inpatient)(05/03/22 18:40) bd Room Assignment: 406(05/03/22 18:40) bd Diagnosis - Hypoxemia rn - Unspecified combined systolic (congestive) and diastolic (congestive) heart failure rn - End stage renal disease rn - Acute pulmonary edema rn Forms: - Medication Reconciliation Form rn - SBAR form rn Signatures: Dispatcher [employer] EDKate Henry Irene, RN RN iw Eugene Simons MD MD rn Hall, Patricia, RN RN ph Corrections: (The following items were deleted from the chart) 15:13 08:32 Telemetry/MedSurg (Inpatient) rn iw 15:13 08:32 rn iw 18:40 15:13 BR ER HOLD iw bd 18:40 15:13 ERHOLD- iw bd
[2022-05-03 08:40] LABS: ALT/SGPT 36 U/L (12-78); AST/SGOT 35 U/L (15-37); Albumin 3.1 g/dL (3.4-5.0); Alkaline Phosphatase 111 U/L (45-117); BUN Blood Urea Nitrogen 25 mg/dL (7-18); Bicarbonate 29 mmol/L (21-32); Bilirubin Direct 0.2 mg/dL (0-0.2); Bilirubin Total 0.4 mg/dL (0.2-1.0); Glomerular Filtration Rate 18 ml/min (=/>90); Glucose Level 173 mg/dL (74-106); Magnesium 2.1 mg/dL (1.8-2.4); Potassium 4.3 mmol/L (3.5-5.1); Protein, Total 6.6 g/dL (6.4-8.2); Sodium Level 135 mmol/L (136-145)
[2022-05-03 08:42] LABS: NT PRO-BNP > 175000 pg/mL (<125)
--- NOTE | 2022-05-03 09:03 | RAD REPORT ---
EXAM DESCRIPTION: [facility] Single View05/03/2022 8:26 am CLINICAL HISTORY: Shortness of breath COMPARISON: April 30, 2022 FINDINGS: Moderate to large right pleural effusion with right lung atelectasis. Small left pleural effusion Cardiomegaly. Postsurgical changes involve chest
[2022-05-03] MEDS ORDERED: NA CHLORIDE 0.9% 250 ML ONE ×2 (09:06→12:46)
[2022-05-03 09:52] LABS: White Blood Cell Scan OK (OK)
[2022-05-03 09:53] LABS: Anisocytosis SLIGHT; Blood Morphology Comment NOTED (NOT SEEN); Hypochromasia 1+; Platelet Estimate DECR; Poikilocytosis SLIGHT
--- NOTE | 2022-05-03 11:12 | RAD REPORT ---
EXAM DESCRIPTION: [facility] Single View05/03/2022 10:46 am CLINICAL HISTORY: Thoracentesis IMPRESSION: A pneumothorax is not visualized status post right thoracentesis
[2022-05-03 12:59] LABS: Body Fluid WBC 81 /mm^3
--- NOTE | 2022-05-03 13:04 | RAD REPORT ---
EXAM DESCRIPTION: US - Thoracentesis w/ US Guide - 05/03/2022 10:05 am CLINICAL HISTORY: Right pleural effusion COMPARISON: Chest x-ray May 03, 2022 TECHNIQUE: The risks, benefits alternatives to the procedure were explained to the patient and infor med consent obtained. Skiin ,subcutaneous tissues and pleura anesthetized with lidocaine. Under sonographic guidance, an 8 [place] catheter was placed into the posterior lower right pleural sp andrew. 700 cc of yellowish red fluid removed. Some of the fluid sent to the lab Patient experienced no immediate complication IMPRESSION: Thoracentesis
[2022-05-03 13:38] LABS: Body Fluid Source PLEURAL; Color of fluid Red (COLORLESS)
[2022-05-03 13:39] LABS: Appearance TURBID (CLEAR)
[2022-05-03] MEDS ORDERED: MORPHINE 2 MG/ML SYR IV PRN (16:45)
[2022-05-03] MEDS ORDERED: ONDANSETRON 4 MG/2 ML VIAL IV PRN (16:45)
[2022-05-03] MEDS ORDERED: NA CHLORIDE 0.9% 1,000 ML ONE (17:10)
[2022-05-03] MEDS ORDERED: MORPHINE 4 MG/ML SYR ONE (17:10)
--- NOTE | 2022-05-03 20:46 | P.CNS ---
Date of Consult: 05/03/22 Reason for Consult: ESRD Requesting Physician: Elizabeth Phelps Chief Complaint: Dyspnea History of Present Illness: 07:44 This 66 yrs old Male presents to ER via EMS with complaints of sob. rn 07:44 The patient has shortness of breath at rest. Onset: The symptoms/episode began/occurred rn at an unknown time. Duration: The symptoms are continuous. The patient's shortness of breath is aggravated by nothing, is alleviated by application of supplemental oxygen. Associated signs and symptoms: Pertinent positives: This patient does not have any pertinent positive signs or symptoms associated with shortness of breath. Pertinent negatives: chest pain, non-productive cough, productive cough, fever, hemoptysis. Severity of symptoms: At their worst the symptoms were moderate in the emergency department the symptoms are unchanged. The patient has experienced similar episodes in the past. The patient has been recently seen by a physician:. EMS reports family called for low oxygen, noted to be 45% on 2 L nasal cannula at home. Recent admission for ascites and volume overload. Put on oxygen and O2 improved. Pt reports pain all over. Limited IH/ ROS due to mental status. Allergies No Known Drug Allergies Allergy (Verified 02/06/22 04:59) Unknown Home medications list reviewed: Yes Home Medications: Aspirin Chewable [Aspirin Chewable*] 81 mg PO DAILY 04/08/19 Atorvastatin Calcium 40 mg PO DAILY 04/08/19 Clopidogrel Bisulfate [Clopidogrel] 75 mg PO DAILY 04/08/19 Levothyroxine [Synthroid*] 125 mcg PO [id number] 07/17/21 Insulin Glargine,Hum.rec.anlog [Basaglar Valerieikpen U-100] 10 unit SQ BEDTIME 12/01/21 Midodrine HCl 1 tab PO DIRECTED 02/03/22 Folic Acid/Vit B Complex and C [Dialyvite 800 Chewable Wafer] 800 mcg PO DAILY 03/02/22 Hydrocodone Bit/Acetaminophen [Hydrocodon-Acetaminophen 5-325] 1 each PO Q6HP PRN 03/02/22 methocarbamoL [Methocarbamol] 500 mg PO TID 03/02/22 Furosemide [Lasix] 80 mg PO DAILY #30 tablet 03/12/22 Hydrocodone 7.5/APAP 325 [[place] 7.5/325 mg] 1 tab PO Q6H PRN #30 tab 03/12/22 Lidocaine 4% Patch [Lidoderm 5% Patch*] 1 patch TOP DAILY #30 patch 03/12/22 dexAMETHasone [Decadron] 4 mg PO BID #8 tab 03/12/22 - Past Medical/Surgical History Diabetic: Yes -: IDDM -: HTN -: HLD -: [place] -: anemia -: ESRD on HD followed by Dr. Hernandez -: Cirrhosis -: Pleural effusions -: pacemaker -: cardiac stents -: CABG Psychosocial/ Personal History: Lives at home with his - Family History Father Medical History: Diabetes Mother Medical History: Diabetes Notes: no hx of illness Sister Medical History: Diabetes Notes: 2 sisters, both from complications of diabetes - Social History Smoking Status: Unknown if ever smoked Alcohol use: No CD- Drugs: No Caffeine use: Yes Review of Systems 10-point ROS is otherwise unremarkable General: Weakness, Malaise Respiratory: SOB with Excertion Physical Examination Temp Pulse Resp BP Pulse Ox 97.1 F 78 18 95/52 L 05/03/22 07:25 05/03/22 13:14 05/03/22 13:14 05/03/22 13:14 General: Cooperative, Cachectic HEENT: Atraumatic Neck: Supple Respiratory: Diminished Cardiovascular: No edema, Regular rate/rhythm Gastrointestinal: Non-distended Musculoskeletal: No clubbing, No contractures Integumentary: No rashes, No cyanosis Laboratory Data (last 24 hrs) 05/03/22 07:56: PT 12.2, INR 1.11, APTT 29.8 05/03/22 07:56: WBC 7.2 D, Hgb 12.0 L, Hct 39.3 L, Plt Count 134 L 05/03/22 07:56: Sodium 135 L, Potassium 4.3, BUN 25 H, Creatinine 3.54 H, Glucose 173 H, Magnesium 2.1, Total Bilirubin 0.4, AST 35, ALT 36, Alkaline Phosphatase 111 Imagings Data: EXAM DESCRIPTION: [facility] Single View05/03/2022 10:46 am CLINICAL HISTORY: Thoracentesi IMPRESSION: A pneumothorax is not visualized status post right thoracentesis EXAM DESCRIPTION: [facility] Single View05/03/2022 8:26 am CLINICAL HISTORY: Shortness of breath COMPARISON: April 30, 2022 FINDINGS: Moderate to large right pleural effusion with right lung atelectasis. Small left pleural effusion Cardiomegaly. Postsurgical changes involve chest Conclusions/Impression: ESRD -HD TIW TTS Hyponatremia -HD TIW Chronic hypotension -Restart Midodrine Diastolic CHF, A/C Right pleural effusion -Low sodium diet -Thoracentesis as ordered -HD with UF DM II with CKD -RISS Anemia in CKD -Retacirt TIW CKD MBD -Start Vitamin D Case reviewed with Dr. Simons in the ER Thank you kindly for the referral
[2022-05-03] MEDS: INSULIN -REGULAR HUMAN 50 UNIT/0.5 ML ML SQ SCH (21:00)
[2022-05-03] MEDS: DOCUSATE NA 100 MG CAP PO SCH (21:35)
[2022-05-03] MEDS: NEPRO SHAKE 237 ML CAN PO SCH (21:36)
[2022-05-03] MEDS ORDERED: dexAMETHasone 4 MG/ML VIAL IV ONE (22:48)
--- NOTE | 2022-05-03 22:53 | P.HP ---
Certification for Inpatient Patient admitted to: Observation With expected LOS: <2 Midnights Patient will require the following post-hospital care: None Practitioner: I am a practitioner with admitting privileges, knowledge of patient current condition, hospital course, and medical plan of care. Services: Services provided to patient in accordance with Admission requirements found in Title 42 Section 412.3 of the Code of Federal Regulations Patient History Date of Service: 05/03/22 Reason for admission: Dyspnea History of Present Illness: Patient is a 66-year-old gentleman who came into the hospital with shortness of breath and hypoxemia. Patient with her O2 sats wrap 40%. Patient came into the emergency room for further evaluation. In the emergency room patient placed on a BiPAP. Patient had recently been discharged from [facility]. Patient had paracentesis done at that time. Patient was told that if his chest x-ray was clean he would be discharged. Patient was discharged yesterday. He was real short of breath today. She had x-ray shows A very large pleural effusion. On the right side. Will go ahead and get a thoracentesis performed. Hopefully, once we get fluid removed we can get patient off of the BiPAP. Will also consult Nephrology for ESRD. Patient is on home dialysis. Allergies No Known Drug Allergies Allergy (Verified 02/06/22 04:59) Unknown Home Medications: Aspirin Chewable [Aspirin Chewable*] 81 mg PO DAILY 04/08/19 Atorvastatin Calcium 40 mg PO DAILY 04/08/19 Clopidogrel Bisulfate [Clopidogrel] 75 mg PO DAILY 04/08/19 Levothyroxine [Synthroid*] 125 mcg PO [id number] 07/17/21 Insulin Glargine,Hum.rec.anlog [Basaglar Kwikpen U-100] 10 unit SQ BEDTIME 12/01/21 Midodrine HCl 1 tab PO DIRECTED 02/03/22 Folic Acid/Vit B Complex and C [Dialyvite 800 Chewable Wafer] 800 mcg PO DAILY 03/02/22 Hydrocodone Bit/Acetaminophen [Hydrocodon-Acetaminophen 5-325] 1 each PO Q6HP PRN 03/02/22 methocarbamoL [Methocarbamol] 500 mg PO TID 03/02/22 Furosemide [Lasix] 80 mg PO DAILY #30 tablet 03/12/22 Hydrocodone 7.5/APAP 325 [[place] 7.5/325 mg] 1 tab PO Q6H PRN #30 tab 03/12/22 Lidocaine 4% Patch [Lidoderm 5% Patch*] 1 patch TOP DAILY #30 patch 03/12/22 dexAMETHasone [Decadron] 4 mg PO BID #8 tab 03/12/22 - Past Medical/Surgical History Diabetic: Yes -: IDDM -: HTN -: HLD -: [place] -: anemia -: ESRD on HD followed by Dr. Hernandez -: Cirrhosis -: Pleural effusions -: pacemaker -: cardiac stents -: CABG Psychosocial/ Personal History: Lives at home with his - Family History Father Medical History: Diabetes Mother Medical History: Diabetes Notes: no hx of illness Sister Medical History: Diabetes Notes: 2 sisters, both from complications of diabetes - Social History Alcohol use: No CD- Drugs: No Caffeine use: Yes Review of Systems is unable to be obtained Physical Examination - Vital Signs Temperature: 97.8 F Blood Pressure: 101/54 Pulse: 79 Respirations: 19 Pulse Ox (%): 95 - Physical Exam General: Moderate distress, Confused, Unresponsive HEENT: Atraumatic, PERRLA, Mucous membr. moist/pink, EOMI, Sclerae nonicteric Neck: Supple, 2+ carotid pulse no bruit, No LAD, Without JVD or thyroid abnormality Respiratory: Diminished, Crackles/rales Cardiovascular: Regular rate/rhythm, Normal S1 S2, Systolic murmur Gastrointestinal: Normal bowel sounds, Soft and benign, Non-distended, No tenderness Musculoskeletal: No clubbing, No tenderness, Swelling Integumentary: No rashes Neurological: Sensation intact, Cranial nerves 3-12 intact, Normal affect, Abnormal gait, Abnormal strength Lymphatics: No axilla or inguinal lymphadenopathy - Studies Laboratory Data (last 24 hrs) 05/03/22 07:56: PT 12.2, INR 1.11, APTT 29.8 05/03/22 07:56: WBC 7.2 D, Hgb 12.0 L, Hct 39.3 L, Plt Count 134 L 05/03/22 07:56: Sodium 135 L, Potassium 4.3, BUN 25 H, Creatinine 3.54 H, Glucose 173 H, Magnesium 2.1, Total Bilirubin 0.4, AST 35, ALT 36, Alkaline Phosphatase 111 Assessment & Plan - Problems (Diagnosis) (1) Large pleural effusion Current Visit: Yes Status: Acute (2) Cirrhosis of liver Current Visit: No Status: Acute Qualifiers: Ascites presence: unspecified (3) Congestive heart failure Onset Date: 04/11/18 Current Visit: No Status: Acute Qualifiers: (4) End stage renal disease on dialysis Current Visit: No Status: Acute (5) Diabetes mellitus Onset Date: 02/28/15 Current Visit: No Status: Chronic (6) Hyperlipidemia Onset Date: 02/28/15 Current Visit: No Status: Chronic Qualifiers: (7) Hypertension Onset Date: 02/28/15 Current Visit: No Status: Chronic - Plan Plan: 1. Ultrasound-guided thoracentesis 2. Send for cytology as well as protein, glucose, cell count with diff 3. nephrology consultation for hemodialysis 4. review of echocardiogram; if not done over the last 6 months will repeat 5. Continue with diuresing and hemodialysis 6. Start physical therapy 7. Anticipate discharge over the next 48 72 hours. Discharge Plan: Home Plan to discharge in: Greater than 2 days - Advance Directives Does patient have a Living Will: Yes Does patient have a Durable POA for Healthcare: No - Code Status/Comfort Care Code Status Assessed: Yes Code Status: Full Code Critical Care: No Time Spent Managing PTS Care (In Minutes): 45
[2022-05-04 05:19] LABS: Absolute Lymphocytes (CBC) 0.1 K/uL (0.7-4.9); Hematocrit 37.7 % (39.6-49.0); Lymphocytes % 1.8 % (15.3-44.8); MCV 96.4 fL (80-100); MPV 9.6 fL (7.6-11.3); RBC Red Blood Cell Count 3.91 M/uL (4.33-5.43)
[2022-05-04 05:43] LABS: Albumin 2.9 g/dL (3.4-5.0); Bilirubin Total 0.4 mg/dL (0.2-1.0); Phosphorus 2.8 mg/dL (2.5-4.9); Potassium 4.7 mmol/L (3.5-5.1); Protein, Total 6.2 g/dL (6.4-8.2)
[2022-05-04] MEDS: INSULIN -REGULAR HUMAN 50 UNIT/0.5 ML ML SQ SCH ×4 (07:30→21:00)
[2022-05-04] MEDS: DOCUSATE NA 100 MG CAP PO SCH ×2 (07:38→21:10)
[2022-05-04] MEDS: VITAMIN D 5,000 UNIT CAP PO SCH (07:38)
[2022-05-04] MEDS: MULTIVITAMINS,THERAPEUT 1 TAB PO SCH (07:38)
[2022-05-04] MEDS: CALCITROL 0.25 MCG CAP PO SCH (07:38)
[2022-05-04] MEDS: NEPRO SHAKE 237 ML CAN PO SCH ×3 (07:38→21:10)
[2022-05-04] MEDS ORDERED: MANNITOL 25% 12.5 GM/50 ML VIAL IV PRN (07:56)
[2022-05-04] MEDS ORDERED: NA CHLORIDE 0.9% 1,000 ML IV PRN (07:56)
[2022-05-04] MEDS ORDERED: ALBUMIN HUMAN 25% 50 ML IV SCH (08:00)
[2022-05-04] MEDS ORDERED: MIDODRINE HCL 5 MG TABLET PO ONE (08:00)
--- NOTE | 2022-05-04 08:55 | EKG ---
Test Date: 2022-05-03 Test Time: 09:08:39 Engagement Liaison: PH MEASUREMENT RESULTS: Intervals: Rate: 83 CO: 214 QRSD: 142 QT: 404 QTc: 474 Daniels: P: 41 CO: 214 QRS: -76 T: 85 INTERPRETIVE STATEMENTS: Sinus rhythm with 1st degree AV block Left axis deviation Nonspecific intraventricular block Cannot rule out Septal infarct, age undetermined Abnormal ECG Compared to ECG 04/30/2022 15:20:10 First degree AV block now present Left-axis deviation now present Myocardial infarct finding now present Right superior axis no longer present Electronically Signed On 05-04-22 08:52:40 CDT by Puneet Banerjee
[2022-05-04] MEDS: MIDODRINE HCL 5 MG TABLET PO SCH ×2 (08:56→15:53)
[2022-05-04] MEDS ORDERED: dexAMETHasone 4 MG TAB PO SCH (09:00)
[2022-05-04] MEDS ORDERED: MIDODRINE HCL 5 MG TABLET PO SCH (16:00)
[2022-05-04] MEDS ORDERED: ALBUMIN HUMAN 25% 100 ML IV SCH ×2 (18:00)
--- NOTE | 2022-05-04 19:40 | P.PN ---
Date of Service: 05/04/22 Vital Signs Temp Pulse Resp BP Pulse Ox 97.8 F 71 14 99/62 91 05/04/22 16:00 05/04/22 16:00 05/04/22 16:00 05/04/22 16:00 05/04/22 16:00 Medications Acetaminophen (Acetaminophen 500 Mg Tab) 500 mg PO Q6H PRN PRN Reason: TEMP > 100.4' F OR MILD PAIN Calcitriol (Calcitrol 0.25 Mcg Cap) 0.5 mcg PO DAILY [facility] Last Admin: 05/04/22 07:38 Dose: 0.5 mcg Documented by: Cholecalciferol (Vitamin D 5,000 Unit Cap) 5,000 unit PO DAILY [facility] Last Admin: 05/04/22 07:38 Dose: 5,000 unit Documented by: Docusate Sodium (Docusate Na 100 Mg Cap) 100 mg PO BID [facility] Last Admin: 05/04/22 07:38 Dose: 100 mg Documented by: Enteral Nutritional Formula (Nepro Shake 237 Ml Can) 237 ml PO TID [facility] Last Admin: 05/04/22 13:36 Dose: 237 ml Documented by: Epoetin Gopi (Epoetin 4,000 Unit/Ml Vial) 4,000 unit SQ M,W,F [facility] Heparin Sodium (Porcine) (Heparin 1,000 Unit/Ml Vial) 6,000 unit IV EVERY HD PRN PRN Reason: AFTER EACH Heparin Sodium (Porcine) (Heparin 1,000 Unit/Ml Vial) 2,000 unit IV EVERY HD [facility] Stop: 05/09/22 16:01 Sodium Chloride (Ns 1000 Ml Ivbag) 1,000 mls @ 0 mls/hr IV .Q0M PRN; Protocol PRN Reason: Priming and BP support at HD Stop: 05/04/22 23:59 Albumin Human (Albumin 25% 25 Gm) 100 mls @ 200 mls/hr IV EVERY HD [facility] Insulin Glargine (Insulin Glargine 100 Unit/Ml) 10 unit SQ BEDTIME [facility] Insulin Human Regular (Insulin -Regular Human 50 Unit/0.5 Ml Ml) 0 unit SQ ACHS [facility]; Protocol Last Admin: 05/04/22 15:52 Dose: 2 unit Documented by: Mannitol (Mannitol 25% 12.5 Gm/50 Ml Vial) 12.5 gm IV EVERY HD PRN PRN Reason: Titrate to SBP (MUST DEFINE) Midodrine (Midodrine Hcl 5 Mg Tablet) 10 mg PO TuThSa@0900 [facility] Last Admin: 05/04/22 15:53 Dose: 10 mg Documented by: Morphine Sulfate (Morphine 2 Mg/Ml Syr) 2 mg IV Q4H PRN PRN Reason: Pain scale 8-10 (Severe) Ondansetron HCl (Ondansetron 4 Mg/2 Ml Vial) 4 mg IV Q8H PRN PRN Reason: NAUSEA / VOMITING Sodium Chloride (Flush Normal Saline 10 Ml) 10 ml IV BID [facility] Last Admin: 05/04/22 07:38 Dose: 10 ml Documented by: Vitamin B Complex/Vit C/Folic Acid (Multivitamins,Therapeut 1 Tab) 1 tab PO DAILY [facility] Last Admin: 05/04/22 07:38 Dose: 1 tab Documented by: Microbiology Results 05/03/22 08:30 Blood - Blood Aerobic Blood Culture - Preliminary No growth in 24 hours. 05/03/22 08:30 Blood - Blood Anaerobic Blood Culture - Preliminary No growth in 24 hours. 05/03/22 07:56 Blood - Blood Aerobic Blood Culture - Preliminary No growth in 24 hours. 05/03/22 07:56 Blood - Blood Anaerobic Blood Culture - Preliminary No growth in 24 hours. Assessment/ Plan: Nephrology Limited IH/ ROS due to mental status No acute events overnight Vitals, medications, blood work and imaging reviewed in the chart. General: Cooperative, Cachectic HEENT: Atraumatic Neck: Supple Respiratory: Diminished Cardiovascular: No edema, Regular rate/rhythm Gastrointestinal: Non-distended Musculoskeletal: No clubbing, No contractures Integumentary: No rashes, No cyanosis Laboratory Data (last 24 hrs) 05/03/22 07:56: PT 12.2, INR 1.11, APTT 29.8 05/03/22 07:56: WBC 7.2 D, Hgb 12.0 L, Hct 39.3 L, Plt Count 134 L 05/03/22 07:56: Sodium 135 L, Potassium 4.3, BUN 25 H, Creatinine 3.54 H, Glucose 173 H, Magnesium 2.1, Total Bilirubin 0.4, AST 35, ALT 36, Alkaline Phosphatase 111 Imagings Data: EXAM DESCRIPTION: [place] Single View05/03/2022 10:46 am CLINICAL HISTORY: Thoracentesi IMPRESSION: A pneumothorax is not visualized status post right thoracentesis EXAM DESCRIPTION: [facility] Single View05/03/2022 8:26 am CLINICAL HISTORY: Shortness of breath COMPARISON: April 30, 2022 FINDINGS: Moderate to large right pleural effusion with right lung atelectasis. Small left pleural effusion Cardiomegaly. Postsurgical changes involve chest Conclusions/Impression: ESRD -HD TIW TTS Hyponatremia -HD TIW Chronic hypotension -Midodrine with HD Diastolic CHF, A/C Right pleural effusion -Low sodium diet -S/P Thoracentesis -HD with UF as tolerated DM II with CKD -RISS Anemia in CKD -Retacirt TIW CKD MBD -Continue Vitamin D Case reviewed with Dr. Phelps
--- NOTE | 2022-05-04 20:16 | P.PN ---
Date of Service: 05/04/22 Rapid response called at 1950 while patient was undergoing dialysis. Dialysis nurse reported that he was near the end of his dialysis session and began to desat, become hypotensive, and less responsive. She immediately returned his blood and administered albumin and patient improved. He was back to baseline by the time I arrived. Patient has no complaints during my assessment. BP WNL. Saturating appropriately on 7L NC. RT states they will wean his O2 down throughout the night. No need for further work up at this time.
[2022-05-04] MEDS: INSULIN GLARGINE 100 UNIT/ML SQ SCH (21:10)
[2022-05-04] MEDS ORDERED: dexAMETHasone 4 MG/ML VIAL IV ONE (22:32)
--- NOTE | 2022-05-04 22:44 | P.PN ---
Subjective Date of Service: 05/04/22 Subjective: No new changes, No C/O voiced, Improving Patient was severely hypoxic. However after thoracenteses oxygenation has improved. Patient is very weak and ill appearing. His long-term prognosis is poor. Patient with liver disease and end-stage renal disease. Long-term pro gnosis is poor. Will discuss with family regarding hospice placement. Review of Systems 10-point ROS is otherwise unremarkable Physical Examination - Vital Signs Temperature: 96.8 F Blood Pressure: 110/60 Pulse: 74 Respirations: 19 Pulse Ox (%): 93 - Physical Exam General: Alert, In no apparent distress, Other ( Lethargic and weak but answers all my questions appropriately) Respiratory: Crackles/rales Cardiovascular: Regular rate/rhythm, Normal S1 S2, Systolic murmur Gastrointestinal: Normal bowel sounds, Soft and benign, Non-distended, No tenderness, No rebound, No guarding Musculoskeletal: No clubbing, No swelling, No tenderness Neurological: Normal strength at 5/5 x4 extr, Sensation intact, Cranial nerves 3-12 intact - Studies Medications List Reviewed: Yes Assessment & Plan - Problems (Diagnosis) (1) Large pleural effusion Current Visit: Yes Status: Acute (2) Cirrhosis of liver Current Visit: No Status: Acute Qualifiers: Ascites presence: unspecified (3) Congestive heart failure Onset Date: 04/11/18 Current Visit: No Status: Acute Qualifiers: (4) End stage renal disease on dialysis Current Visit: No Status: Acute (5) Diabetes mellitus Onset Date: 02/28/15 Current Visit: No Status: Chronic (6) Hyperlipidemia Onset Date: 02/28/15 Current Visit: No Status: Chronic Qualifiers: (7) Hypertension Onset Date: 02/28/15 Current Visit: No Status: Chronic - Plan Plan: Plan of care as mentioned below: 1. Ultrasound-guided thoracentesis completed-700cc 2. Send for cytology as well as protein, glucose, cell count with diff; pending 3. nephrology consultation for hemodialysis 4. review of echocardiogram; if not done over the last 6 months will repeat 5. Continue with diuresing and hemodialysis 6. Start physical therapy 7. Anticipate discharge over the next 48 72 hours. Discharge Plan: Home Plan to discharge in: Greater than 2 days - Advance Directives Does patient have a Living Will: Yes Does patient have a Durable POA for Healthcare: No - Code Status/Comfort Care Code Status: Full Code Critical Care: No Time Spent Managing PTS Care (In Minutes): 35
[2022-05-05 06:11] LABS: Absolute Lymphocytes (CBC) 0.2 K/uL (0.7-4.9); Hematocrit 37.9 % (39.6-49.0); MCV 98.5 fL (80-100); MPV 9.4 fL (7.6-11.3); RBC Red Blood Cell Count 3.85 M/uL (4.33-5.43)
[2022-05-05 06:24] LABS: Protime INR 1.01
[2022-05-05 06:28] LABS: Albumin 3.2 g/dL (3.4-5.0); Bilirubin Total 0.4 mg/dL (0.2-1.0); Magnesium 2.2 mg/dL (1.8-2.4); Potassium 4.4 mmol/L (3.5-5.1); Protein, Total 6.5 g/dL (6.4-8.2)
[2022-05-05] MEDS: INSULIN -REGULAR HUMAN 50 UNIT/0.5 ML ML SQ SCH ×4 (07:30→21:00)
--- NOTE | 2022-05-05 07:51 | RAD REPORT ---
EXAM DESCRIPTION: RAD - Chest Single View - 05/05/2022 5:54 am CLINICAL HISTORY: pneumonia COMPARISON: Chest Single View dated 05/03/2022; Chest Single View dated 05/03/2022; Chest Single View dated 04/30/2022; Chest Single View dated 03/01/2022; Thoracentesis w/ US Guide dated 05/03/2022; Chest Abd Pelvis Wo Con dated 03/01/2022 FINDINGS: Lines: Pacemaker/ICD. Lungs: Poorly aerated right lung and left basilar opacities. Aeration of the right lung has modestly worsened compared with the post thoracentesis radiograph from 05/03/2022. Pleural: Bilateral pleural effusions. Question increasing pleural fluid compared with 05/03/2022. Cardiac: Moderate cardiomegaly. Bones: No acute fractures. Sternotomy. Other: IMPRESSION: Bilateral pleural effusions with atelectasis and possibly superimposed pneumonia given t he clinical history. Aeration of the right lung has slightly worsened since the thoracentesis radiogr aph from 05/03/2022. This may be due to reaccumulation of fluid. .
[2022-05-05] MEDS: NEPRO SHAKE 237 ML CAN PO SCH ×3 (09:00→21:57)
[2022-05-05] MEDS: VITAMIN D 5,000 UNIT CAP PO SCH (09:00)
[2022-05-05] MEDS: CALCITROL 0.25 MCG CAP PO SCH (10:55)
[2022-05-05] MEDS: MULTIVITAMINS,THERAPEUT 1 TAB PO SCH (10:56)
[2022-05-05] MEDS: DOCUSATE NA 100 MG CAP PO SCH ×2 (10:56→21:56)
--- NOTE | 2022-05-05 11:32 | P.PN ---
Vital Signs Temp Pulse Resp BP Pulse Ox 97.1 F 77 14 98/54 L 96 05/05/22 08:00 05/05/22 08:00 05/05/22 08:00 05/05/22 08:00 05/05/22 08:00 Medications Acetaminophen (Acetaminophen 500 Mg Tab) 500 mg PO Q6H PRN PRN Reason: TEMP > 100.4' F OR MILD PAIN Calcitriol (Calcitrol 0.25 Mcg Cap) 0.5 mcg PO DAILY [facility] Last Admin: 05/05/22 10:55 Dose: 0.5 mcg Documented by: Cholecalciferol (Vitamin D 5,000 Unit Cap) 5,000 unit PO DAILY [facility] Last Admin: 05/05/22 09:00 Dose: 5,000 unit Documented by: Docusate Sodium (Docusate Na 100 Mg Cap) 100 mg PO BID [facility] Last Admin: 05/05/22 10:56 Dose: 100 mg Documented by: Enteral Nutritional Formula (Nepro Shake 237 Ml Can) 237 ml PO TID [facility] Last Admin: 05/05/22 09:00 Dose: 237 ml Documented by: Heparin Sodium (Porcine) (Heparin 1,000 Unit/Ml Vial) 6,000 unit IV EVERY HD PRN PRN Reason: AFTER EACH Heparin Sodium (Porcine) (Heparin 1,000 Unit/Ml Vial) 2,000 unit IV EVERY HD [facility] Stop: 05/09/22 16:01 Albumin Human (Albumin 25% 25 Gm) 100 mls @ 200 mls/hr IV EVERY HD [facility] Insulin Glargine (Insulin Glargine 100 Unit/Ml) 10 unit SQ BEDTIME [facility] Last Admin: 05/04/22 21:10 Dose: 10 unit Documented by: Insulin Human Regular (Insulin -Regular Human 50 Unit/0.5 Ml Ml) 0 unit SQ ACHS [facility]; Protocol Last Admin: 05/04/22 21:00 Dose: Not Given Documented by: Midodrine (Midodrine Hcl 5 Mg Tablet) 10 mg PO BID [facility] Morphine Sulfate (Morphine 2 Mg/Ml Syr) 2 mg IV Q4H PRN PRN Reason: Pain scale 8-10 (Severe) Ondansetron HCl (Ondansetron 4 Mg/2 Ml Vial) 4 mg IV Q8H PRN PRN Reason: NAUSEA / VOMITING Sodium Chloride (Flush Normal Saline 10 Ml) 10 ml IV BID [facility] Last Admin: 05/05/22 09:00 Dose: 10 ml Documented by: Vitamin B Complex/Vit C/Folic Acid (Multivitamins,Therapeut 1 Tab) 1 tab PO DAILY [facility] Last Admin: 05/05/22 10:56 Dose: 1 tab Documented by: Microbiology Results 05/03/22 08:30 Blood - Blood Aerobic Blood Culture - Preliminary No growth in 24 hours. 05/03/22 08:30 Blood - Blood Anaerobic Blood Culture - Preliminary No growth in 24 hours. 05/03/22 07:56 Blood - Blood Aerobic Blood Culture - Preliminary No growth in 24 hours. 05/03/22 07:56 Blood - Blood Anaerobic Blood Culture - Preliminary No growth in 24 hours. Assessment/ Plan: Nephrology (S) Japanese speaking primarily so conversation limited, denies acute dyspnea, still on > 5L/02, CXR reviewed and not much better than the one on the . Vitals, medications, blood work and imaging reviewed in the chart. General: NAD, non tachypnec, cachectic HEENT: Atraumatic Neck: Supple Respiratory: Diminished at bases b/l without rhonchi Cardiovascular: No edema, Regular rate/rhythm mostly Gastrointestinal: Soft, mild distention, NT Musculoskeletal: No clubbing, No contractures Integumentary: No rashes, No cyanosis Neuro: Awake, responsive, moves ext spont, strength not tested Laboratory Data (last 24 hrs) Reviewed in EMR Conclusions/Impression: ESRD -Dialyzed yesterday, metab profile acceptable, will plan on SEQ/ultrafiltration alone treatment today Chronic hypotension -Will switch Midodrine to BID dosing instead of just prior to HD, will place holding parameter -Cirrhosis of liver unspecified, pleural effusions classified elsewhere, likely hepatothorax Pleural fluid analysis reviewed, effusion(s) still present, UF on HD limited by low BP, will dialyze with Albumin support Anemia in CKD -Hb > 11.2 so will suspend LEO Angel Lugo MD, [facility]
[2022-05-05] MEDS: MIDODRINE HCL 5 MG TABLET PO SCH ×2 (12:00→21:56)
[2022-05-05] MEDS ORDERED: ALBUMIN HUMAN 25% 50 ML IV SCH (12:30)
[2022-05-05] MEDS ORDERED: ALBUMIN HUMAN 25% 100 ML IV SCH (13:00)
--- NOTE | 2022-05-05 15:32 | P.PN ---
Date of Service: 05/05/22 Subjective Subjective: Oxygenation has improved. Still on 8 L. Satting in the mid 90s. We need to more aggressively wean this down. Spoke with pulmonary regarding thoracentesis and because of patient's liver disease unlikely to improve. They do not recommend Pleurx catheter either. They recommend TIPS procedure. Review of Systems 10-point ROS is otherwise unremarkable Physical Examination - Vital Signs Reviewed - Physical Exam General: Alert, In no apparent distress, more awake and alert. Respiratory: Crackles/rales Cardiovascular: Regular rate/rhythm, Normal S1 S2, Systolic murmur Gastrointestinal: Normal bowel sounds, Soft and benign, Non-distended, No tenderness, No rebound, No guarding Musculoskeletal: No clubbing, No swelling, No tenderness Neurological: Generalized weakness but no focal deficits - Studies Medications List Reviewed: Yes Assessment & Plan - Problems (Diagnosis) (1) Large pleural effusion Current Visit: Yes Status: Acute (2) Cirrhosis of liver Current Visit: No Status: Acute Qualifiers: Ascites presence: unspecified (3) Congestive heart failure Onset Date: 04/11/18 Current Visit: No Status: Acute Qualifiers: (4) End stage renal disease on dialysis Current Visit: No Status: Acute (5) Diabetes mellitus Onset Date: 02/28/15 Current Visit: No Status: Chronic (6) Hyperlipidemia Onset Date: 02/28/15 Current Visit: No Status: Chronic Qualifiers: (7) Hypertension Onset Date: 02/28/15 Current Visit: No Status: Chronic - Plan Plan: Plan of care as mentioned below: 1. Ultrasound-guided thoracentesis completed-700cc; mild reaccumulation of fluid at this time. Pulmonary consulted. 2. Pleural fluid reviewed 3. nephrology consultation for hemodialysis 4. review of echocardiogram 5. Continue with diuresing and hemodialysis 6. Start physical therapy 7. Anticipate discharge over the next 48 72 hours. Discharge Plan: Home Plan to discharge in: Greater than 2 days - Advance Directives Does patient have a Living Will: Yes Does patient have a Durable POA for Healthcare: No - Code Status/Comfort Care Code Status: Full Code Critical Care: No Time Spent Managing PTS Care (In Minutes): 35
[2022-05-05] MEDS ORDERED: EPOETIN 4,000 UNIT/ML VIAL SQ SCH (17:00)
[2022-05-05] MEDS: INSULIN GLARGINE 100 UNIT/ML SQ SCH (21:57)
[2022-05-06 05:38] LABS: LD, PLEURAL FLUID 98 U/L; TOTAL PROTEIN, PLEURAL FLUID <3.0 g/dL
[2022-05-06 05:39] LABS: Potassium 4.5 mmol/L (3.5-5.1)
[2022-05-06] MEDS: INSULIN -REGULAR HUMAN 50 UNIT/0.5 ML ML SQ SCH ×4 (07:30→20:07)
[2022-05-06] MEDS: MIDODRINE HCL 5 MG TABLET PO SCH ×2 (09:00→20:10)
[2022-05-06] MEDS: DOCUSATE NA 100 MG CAP PO SCH ×2 (09:00→20:10)
[2022-05-06] MEDS: MULTIVITAMINS,THERAPEUT 1 TAB PO SCH (09:00)
[2022-05-06] MEDS: NEPRO SHAKE 237 ML CAN PO SCH ×3 (09:00→20:11)
[2022-05-06] MEDS: VITAMIN D 5,000 UNIT CAP PO SCH (09:00)
[2022-05-06] MEDS: CALCITROL 0.25 MCG CAP PO SCH (09:00)
[2022-05-06] MEDS ORDERED: dexAMETHasone 4 MG/ML VIAL IV ONE (10:46)
--- NOTE | 2022-05-06 11:06 | P.PN ---
Date of Service: 05/06/22 Vital Signs Temp Pulse Resp BP Pulse Ox 97.4 F 74 18 101/47 L 95 05/06/22 08:00 05/06/22 08:00 05/06/22 08:00 05/06/22 08:00 05/06/22 08:00 Medications Acetaminophen (Acetaminophen 500 Mg Tab) 500 mg PO Q6H PRN PRN Reason: TEMP > 100.4' F OR MILD PAIN Calcitriol (Calcitrol 0.25 Mcg Cap) 0.5 mcg PO DAILY [facility] Last Admin: 05/05/22 10:55 Dose: 0.5 mcg Documented by: Cholecalciferol (Vitamin D 5,000 Unit Cap) 5,000 unit PO DAILY [facility] Last Admin: 05/05/22 09:00 Dose: 5,000 unit Documented by: Docusate Sodium (Docusate Na 100 Mg Cap) 100 mg PO BID [facility] Last Admin: 05/05/22 21:56 Dose: 100 mg Documented by: Enteral Nutritional Formula (Nepro Shake 237 Ml Can) 237 ml PO TID [facility] Last Admin: 05/05/22 21:57 Dose: 237 ml Documented by: Heparin Sodium (Porcine) (Heparin 1,000 Unit/Ml Vial) 6,000 unit IV EVERY HD PRN PRN Reason: AFTER EACH Heparin Sodium (Porcine) (Heparin 1,000 Unit/Ml Vial) 2,000 unit IV EVERY HD [facility] Stop: 05/09/22 16:01 Albumin Human (Albumin 25%) 100 mls @ 200 mls/hr IV EVERY HD [facility] Insulin Glargine (Insulin Glargine 100 Unit/Ml) 10 unit SQ BEDTIME [facility] Last Admin: 05/05/22 21:57 Dose: 10 unit Documented by: Insulin Human Regular (Insulin -Regular Human 50 Unit/0.5 Ml Ml) 0 unit SQ ACHS [facility]; Protocol Last Admin: 05/05/22 21:00 Dose: Not Given Documented by: Midodrine (Midodrine Hcl 5 Mg Tablet) 10 mg PO BID [facility] Last Admin: 05/05/22 21:56 Dose: 10 mg Documented by: Morphine Sulfate (Morphine 2 Mg/Ml Syr) 2 mg IV Q4H PRN PRN Reason: Pain scale 8-10 (Severe) Ondansetron HCl (Ondansetron 4 Mg/2 Ml Vial) 4 mg IV Q8H PRN PRN Reason: NAUSEA / VOMITING Sodium Chloride (Flush Normal Saline 10 Ml) 10 ml IV BID [facility] Last Admin: 05/05/22 21:00 Dose: 10 ml Documented by: Vitamin B Complex/Vit C/Folic Acid (Multivitamins,Therapeut 1 Tab) 1 tab PO DAILY [facility] Last Admin: 05/05/22 10:56 Dose: 1 tab Documented by: Lab Results (last 24 hrs) 05/03/22 10:23: Pleural Total Protein <3.0, Pleural LDH 98, Pleural Glucose 152 Microbiology Results 05/03/22 08:30 Blood - Blood Aerobic Blood Culture - Preliminary No growth in 24 hours. 05/03/22 08:30 Blood - Blood Anaerobic Blood Culture - Preliminary No growth in 24 hours. 05/03/22 07:56 Blood - Blood Aerobic Blood Culture - Preliminary No growth in 24 hours. 05/03/22 07:56 Blood - Blood Anaerobic Blood Culture - Preliminary No growth in 24 hours. Assessment/ Plan: Nephrology (S) Attempted to perform SEQ/UF dialysis yesterday but were unable to proceed due to low BP in the systolic 70-80s per unit control clerk. Pt remains on 8L NC, family at beside, had extensive discussion with them on goals of care. Pt has been seen by Surgery regarding pleural catheter placement which family has given consent to but discussed that despite that given his cirrhosis, ESRD, hypotension and weakness it would be prudent to consider an alternative path to aggressive care including one focusing on palliative care/hospice. Family would like to think further about this. Case discussed with Dr. Phelps. Vitals, medications, blood work and imaging reviewed in the chart. General: NAD, non tachypnec, cachectic HEENT: Atraumatic, NC present Neck: Supple Respiratory: Diminished at bases b/l without rhonchi Cardiovascular: No edema, Regular rate/rhythm mostly Gastrointestinal: Soft, mild distention, NT Musculoskeletal: No clubbing, No contractures Integumentary: No rashes, No cyanosis Neuro: Letharguc but awake, responds in mono syllables, moves ext spont, strength not tested Laboratory Data (last 24 hrs) Reviewed in EMR Conclusions/Impression: ESRD -Dialyzed last on , metab profile remains acceptable, no urgent indication to dialyze today and given marginal BP and plans for pleural catheter placement potentially today, will hold off. Chronic hypotension -Did switch Midodrine to BID dosing instead of just prior to HD, will monitor. Consider IV Albumin support during pleural catheter large volume fluid drainage. -Cirrhosis of liver unspecified, pleural effusions classified elsewhere, likely hepatohydrothorax Pleural fluid analysis reviewed, effusion(s) still present, UF on HD limited by low BP Anemia in CKD -Hb > 11.2 so did suspend LEO Angel Lugo MD, [facility]
[2022-05-06] MEDS ORDERED: LIDOCAINE 2% MPF 5 ML VIAL ONE (11:11)
[2022-05-06] MEDS ORDERED: FENTANYL CITR 100 MCG/2 ML ONE (11:11)
[2022-05-06] MEDS ORDERED: propofoL 200 MG/20 ML VIAL IV ONE (11:11)
[2022-05-06] MEDS ORDERED: MIDAZOLAM HCL 2 MG/2 ML INJ ONE (11:11)
[2022-05-06] MEDS ORDERED: NA CHLORIDE 0.9% 500 ML ONE (11:16)
--- NOTE | 2022-05-06 12:26 | P.OP ---
Preoperative diagnosis: RIGHT pleural Effusion Postoperative diagnosis: RIGHT pleural Effusion Primary procedure: Placement of RIGHT Pleur-X thoracic catheter Anesthesia: MAC + Local Estimated blood loss: <5cc Specimen: pleural fluid sent for analysis Findings: straw colored pleural fluid Complications: None Implants: Pleur-X Catheter Transferred to: Recovery Room Condition: Good
--- NOTE | 2022-05-06 12:54 | RAD REPORT ---
EXAM DESCRIPTION: RAD - Chest Single View - 05/06/2022 12:48 pm CLINICAL HISTORY: Status Post Thorocentesis Chest pain. COMPARISON: Chest Single View dated 05/05/2022; Chest Single View dated 05/03/2022; Chest Single View dated 05/03/2022; Chest Single View dated 04/30/2022 FINDINGS: Portable technique limits examination quality. Since yesterday's study, there has been moderate improvement in CHF pattern. Moderate bilateral pulmo nary opacities persist with pleural effusions which have also improved in size. The heart is moderate ly to significantly enlarged with postsurgical changes present. IMPRESSION: Moderate improvement in CHF pattern since comparative study.
[2022-05-06 12:55] LABS: ALBUMIN, PLEURAL FLUID 1.6 g/dL
[2022-05-06 15:02] LABS: Absolute Lymphocytes (CBC) 0.2 K/uL (0.7-4.9); Hematocrit 39.1 % (39.6-49.0); Lymphocytes % 3.2 % (15.3-44.8); MCV 97.2 fL (80-100); MPV 8.1 fL (7.6-11.3); RBC Red Blood Cell Count 4.02 M/uL (4.33-5.43)
--- NOTE | 2022-05-06 15:32 | P.PN ---
Date of Service: 05/06/22 Subjective Subjective: Discussion with nephrology today and they recommend hospice care. We will use a Pleurx catheter for support. Will discuss with family arrange for hospice care. Review of Systems 10-point ROS is otherwise unremarkable Physical Examination - Vital Signs Reviewed - Physical Exam General: Alert, In no apparent distress, more awake and alert. Respiratory: Crackles/rales Cardiovascular: Regular rate/rhythm, Normal S1 S2, Systolic murmur Gastrointestinal: Normal bowel sounds, Soft and benign, Non-distended, No tenderness, No rebound, No guarding Musculoskeletal: No clubbing, No swelling, No tenderness Neurological: Generalized weakness but no focal deficits - Studies Medications List Reviewed: Yes Assessment & Plan - Problems (Diagnosis) (1) Large pleural effusion Current Visit: Yes Status: Acute (2) Cirrhosis of liver Current Visit: No Status: Acute Qualifiers: Ascites presence: unspecified (3) Congestive heart failure Onset Date: 04/11/18 Current Visit: No Status: Acute Qualifiers: (4) End stage renal disease on dialysis Current Visit: No Status: Acute (5) Diabetes mellitus Onset Date: 02/28/15 Current Visit: No Status: Chronic (6) Hyperlipidemia Onset Date: 02/28/15 Current Visit: No Status: Chronic Qualifiers: (7) Hypertension Onset Date: 02/28/15 Current Visit: No Status: Chronic - Plan Continue with plan of care as mentioned below: 1. Ultrasound-guided thoracentesis completed-700cc; mild reaccumulation of fluid at this time. Pulmonary consulted. 2. Pleural fluid reviewed 3. nephrology consultation for hemodialysis 4. review of echocardiogram 5. Continue with diuresing and hemodialysis 6. Start physical therapy 7. Anticipate discharge over the next 48 72 hours. Discharge Plan: Home Plan to discharge in: Greater than 2 days - Advance Directives Does patient have a Living Will: Yes Does patient have a Durable POA for Healthcare: No - Code Status/Comfort Care Code Status: Full Code Critical Care: No Time Spent Managing PTS Care (In Minutes): 35
[2022-05-06] MEDS ORDERED: ALBUMIN HUMAN 25% 100 ML IV ONE (16:00)
[2022-05-06 16:18] LABS: Body Fluid WBC 81 /mm^3
[2022-05-06 16:20] LABS: Body Fluid Source PLEURAL; Color of fluid Red (COLORLESS)
[2022-05-06 16:21] LABS: Appearance TURBID (CLEAR)
[2022-05-06] MEDS: ACETAMINOPHEN 500 MG TAB PO PRN (20:10)
[2022-05-06] MEDS: INSULIN GLARGINE 100 UNIT/ML SQ SCH (20:59)
[2022-05-06] MEDS ORDERED: FENTANYL CITR 100 MCG/2 ML IV PRN (22:02)
--- NOTE | 2022-05-07 00:17 | OP ---
Date of Procedure: 05/06/2022 Surgeon: Roberto Chaney MD, Preoperative Diagnosis: Right pleural fluid. Postoperative Diagnosis: Right pleural fluid. Procedures Performed: Placement of a right PleurX thoracic catheter. Anesthesia: MAC plus local. Estimated Blood Loss: 5 cc. Specimen: Pleural fluid sent for analysis. Findings: Straw-colored fluid emanated. Complications: None. Implants: PleurX catheter. Condition: The patient was transferred to the recovery room in good condition. Procedure In Detail: After informed consent was obtained, the patient was brought to the operating r oom, prepped and draped in the usual sterile fashion. After adequate anesthesia was achieved, I anes thetized the area of the fifth and sixth intercostal space on the right [id number] axillary line with additional Marcaine. I then made an incision overlying this the fifth and sixth intercostal sp andrew. Using a finer needle, I then cannulated the thoracic cavity on the first attempt. Straw-colore d fluid was appreciated at this point. The catheter was advanced without the needle at this point ov er the rib. I then advanced the wire through this same area. I then made a counter incision on the anterior-inferior aspect of the chest wall and using a tunneling device after making a stab incision in the skin, the catheter was brought in with the cuff in the midportion of the skin. I then perform ed sequential dilatation using Seldinger technique over the wire and placed the catheter into the tho racic space aiming cranially straw-colored clear fluid was appreciated coming from the catheter. A s titch was then placed of 2-0 silk suture at the insertion site and the area was cleansed. A sterile dressing was placed over top. The patient was hooked up to the Pneumevac system for drainage of ches t fluid at this point and was functioning well at the end of the procedure. The patient tolerated th e procedure well without any evidence of complication, transferred to PACU in good condition. All co unts were correct at the end of the case. GUI/BUTCHL Voice ID: [id number] Report ID: [id number]
[2022-05-07 06:16] LABS: Absolute Lymphocytes (CBC) 0.3 K/uL (0.7-4.9); Hematocrit 37.7 % (39.6-49.0); Lymphocytes % 3.8 % (15.3-44.8); MCV 96.4 fL (80-100); MPV 9.1 fL (7.6-11.3); RBC Red Blood Cell Count 3.91 M/uL (4.33-5.43)
[2022-05-07 06:31] LABS: Magnesium 2.3 mg/dL (1.8-2.4)
[2022-05-07] MEDS: INSULIN -REGULAR HUMAN 50 UNIT/0.5 ML ML SQ SCH ×5 (07:30→21:00)
[2022-05-07] MEDS: DOCUSATE NA 100 MG CAP PO SCH ×2 (09:42→22:08)
[2022-05-07] MEDS: MIDODRINE HCL 5 MG TABLET PO SCH ×2 (09:42→22:07)
[2022-05-07] MEDS: CALCITROL 0.25 MCG CAP PO SCH (09:43)
[2022-05-07] MEDS: MULTIVITAMINS,THERAPEUT 1 TAB PO SCH (09:43)
[2022-05-07] MEDS: VITAMIN D 5,000 UNIT CAP PO SCH (09:44)
[2022-05-07] MEDS: NEPRO SHAKE 237 ML CAN PO SCH ×3 (09:44→22:15)
[2022-05-07] MEDS: ACETAMINOPHEN 500 MG TAB PO PRN (09:47)
--- NOTE | 2022-05-07 11:23 | P.PN ---
Date of Service: 05/07/22 Vital Signs Temp Pulse Resp BP Pulse Ox 96.8 F 71 16 103/66 93 05/07/22 08:00 05/07/22 08:00 05/07/22 08:00 05/07/22 08:00 05/07/22 08:00 Medications Acetaminophen (Acetaminophen 500 Mg Tab) 500 mg PO Q6H PRN PRN Reason: TEMP > 100.4' F OR MILD PAIN Last Admin: 05/07/22 09:47 Dose: 500 mg Documented by: Calcitriol (Calcitrol 0.25 Mcg Cap) 0.5 mcg PO DAILY [facility] Last Admin: 05/07/22 09:43 Dose: 0.5 mcg Documented by: Cholecalciferol (Vitamin D 5,000 Unit Cap) 5,000 unit PO DAILY [facility] Last Admin: 05/07/22 09:44 Dose: 5,000 unit Documented by: Docusate Sodium (Docusate Na 100 Mg Cap) 100 mg PO BID [facility] Last Admin: 05/07/22 09:42 Dose: 100 mg Documented by: Enteral Nutritional Formula (Nepro Shake 237 Ml Can) 237 ml PO TID [facility] Last Admin: 05/07/22 09:44 Dose: 237 ml Documented by: Fentanyl Citrate (Fentanyl Citr 100 Mcg/2 Ml) 25 mcg IV Q4H PRN PRN Reason: Pain scale 8-10 (Severe) Heparin Sodium (Porcine) (Heparin 1,000 Unit/Ml Vial) 6,000 unit IV EVERY HD PRN PRN Reason: AFTER EACH Heparin Sodium (Porcine) (Heparin 1,000 Unit/Ml Vial) 2,000 unit IV EVERY HD [facility] Stop: 05/09/22 16:01 Albumin Human (Albumin 25%) 100 mls @ 200 mls/hr IV EVERY HD [facility] Insulin Glargine (Insulin Glargine 100 Unit/Ml) 10 unit SQ BEDTIME [facility] Last Admin: 05/06/22 20:59 Dose: 10 unit Documented by: Insulin Human Regular (Insulin -Regular Human 50 Unit/0.5 Ml Ml) 0 unit SQ ACHS [facility]; Protocol Last Admin: 05/07/22 07:30 Dose: Not Given Documented by: Midodrine (Midodrine Hcl 5 Mg Tablet) 10 mg PO BID [facility] Last Admin: 05/07/22 09:42 Dose: 10 mg Documented by: Ondansetron HCl (Ondansetron 4 Mg/2 Ml Vial) 4 mg IV Q8H PRN PRN Reason: NAUSEA / VOMITING Sodium Chloride (Flush Normal Saline 10 Ml) 10 ml IV BID [facility] Last Admin: 05/07/22 09:44 Dose: 10 ml Documented by: Vitamin B Complex/Vit C/Folic Acid (Multivitamins,Therapeut 1 Tab) 1 tab PO DAILY [facility] Last Admin: 05/07/22 09:43 Dose: 1 tab Documented by: Lab Results (last 24 hrs) 05/03/22 10:23: Pleural Albumin 1.6 Microbiology Results 05/03/22 08:30 Blood - Blood Aerobic Blood Culture - Preliminary No growth in 24 hours. 05/03/22 08:30 Blood - Blood Anaerobic Blood Culture - Preliminary No growth in 24 hours. 05/03/22 07:56 Blood - Blood Aerobic Blood Culture - Preliminary No growth in 24 hours. 05/03/22 07:56 Blood - Blood Anaerobic Blood Culture - Preliminary No growth in 24 hours. Assessment/ Plan: Nephrology (S) Pt s/p Rt pleurx catheter yesterday, connected to CT drainage kit with significant output. BP holding in the systolic 100s. Pt's O2 requirements lower. Did again discuss goals of care with pt's son and his , aggressive care with return to home HD vs palliative care/stopping HD/home hospice. Son to come in to the hospital later this afternoon to talk to his father and review further Vitals, medications, blood work and imaging reviewed in the chart. General: NAD, non tachypnec, cachectic HEENT: Atraumatic, NC present Neck: Supple Respiratory: Diminished at bases b/l without rhonchi, Rt pleural catheter Cardiovascular: No edema, Regular rate/rhythm mostly Gastrointestinal: Soft, mild distention, NT Musculoskeletal: No clubbing, No contractures Integumentary: No rashes, No cyanosis Neuro: Lethargic but awake, responds in mono syllables, moves ext spont, strength not tested Laboratory Data (last 24 hrs) Reviewed in EMR Conclusions/Impression: ESRD -Dialyzed last on , metab profile remains acceptable, will plan for HD today. Pt is on [facility] home HD 3x/week per reports, based on discussions with family, will determine if he will return to that regimen. Chronic hypotension -Did switch Midodrine to BID dosing instead of just prior to HD, will monitor. Added IV Albumin dose yesterday s/p pleural catheter s/p large volume fluid drainage. 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
--- NOTE | 2022-05-07 12:27 | P.CNS ---
Date of Consult: 05/07/22 Reason for Consult: Pleural effusion Chief Complaint: Dyspnea History of Present Illness: Patient is 66 years of age admitted with shortness of breath hypoxemia s/p thoracentesis still has significant amount of fluid was placed on a BiPAP just recently discharged he also had paracentesis done history of cirrhosis of the liver today patient had a Pleurx catheter placed is doing much better Patient has end-stage renal renal disease on hemodialysis Allergies No Known Drug Allergies Allergy (Verified 02/06/22 04:59) Unknown Home Medications: Aspirin Chewable [Aspirin Chewable*] 81 mg PO DAILY 04/08/19 Atorvastatin Calcium 40 mg PO DAILY 04/08/19 Clopidogrel Bisulfate [Clopidogrel] 75 mg PO DAILY 04/08/19 Levothyroxine [Synthroid*] 125 mcg PO [id number] 07/17/21 Insulin Glargine,Hum.rec.anlog [Basaglar Kwikpen U-100] 10 unit SQ BEDTIME 12/01/21 Midodrine HCl 1 tab PO DIRECTED 02/03/22 Folic Acid/Vit B Complex and C [Dialyvite 800 Chewable Wafer] 800 mcg PO DAILY 03/02/22 Hydrocodone Bit/Acetaminophen [Hydrocodon-Acetaminophen 5-325] 1 each PO Q6HP PRN 03/02/22 methocarbamoL [Methocarbamol] 500 mg PO TID 03/02/22 Furosemide [Lasix] 80 mg PO DAILY #30 tablet 03/12/22 Hydrocodone 7.5/APAP 325 [Eek 7.5/325 mg*] 1 tab PO Q6H PRN #30 tab 03/12/22 Lidocaine 4% Patch [Lidoderm 5% Patch*] 1 patch TOP DAILY #30 patch 03/12/22 dexAMETHasone [Decadron*] 4 mg PO BID #8 tab 03/12/22 Calcitrol [Rocaltrol*] 0.5 mcg PO DAILY #30 cap 05/07/22 Cholecalciferol (Vitamin D3) [Vitamin D 5,000 IU Cap*] 5,000 unit PO DAILY #30 cap 05/07/22 Docusate [Colace Cap*] 100 mg PO BID #60 cap 05/07/22 Midodrine HCl [Proamatine*] 10 mg PO BID #120 tab 05/07/22 Nepro Shake [Nepro*] 237 ml PO TID #90 can 05/07/22 - Past Medical/Surgical History Diabetic: Yes -: IDDM -: HTN -: HLD -: AK -: anemia -: ESRD on HD followed by Dr. Hernandez -: Cirrhosis -: Pleural effusions -: pacemaker -: cardiac stents -: CABG Psychosocial/ Personal History: Lives at home with his - Family History Father Medical History: Diabetes Mother Medical History: Diabetes Notes: no hx of illness Sister Medical History: Diabetes Notes: 2 sisters, both from complications of diabetes - Social History Smoking Status: Unknown if ever smoked Alcohol use: No CD- Drugs: No Caffeine use: Yes Place of Residence: Home Review of Systems 10-point ROS is otherwise unremarkable General: Weakness Respiratory: Shortness of Breath Physical Examination Temp Pulse Resp BP Pulse Ox 96.8 F 71 16 103/66 93 05/07/22 08:00 05/07/22 08:00 05/07/22 08:00 05/07/22 08:00 05/07/22 08:00 General: Alert, In no apparent distress, Oriented x3 Respiratory: Clear to auscultation bilaterally Cardiovascular: No edema, Regular rate/rhythm, Normal S1 S2 Gastrointestinal: Normal bowel sounds, Soft and benign - Problems (1) Hydrothorax Current Visit: Yes Status: Acute Plan: Patient is 66 years of age admitted with worsening right-sided pleural effusion hypoxemia thoracentesis done and then he had a Pleurx catheter placed yesterday he is doing much better chest x-ray has improved LDH is normal no evidence of infection in the pleural fluid patient is on hemodialysis chronic renal failure vital signs are all stable strict limited drainage of the Pleurx catheter until symptomatic family considering hospice care his prognosis is very poor
[2022-05-07] MEDS: INSULIN GLARGINE 100 UNIT/ML SQ SCH (22:08)
[2022-05-08] MEDS: INSULIN -REGULAR HUMAN 50 UNIT/0.5 ML ML SQ SCH ×3 (07:30→15:32)
[2022-05-08] MEDS: MULTIVITAMINS,THERAPEUT 1 TAB PO SCH (08:02)
[2022-05-08] MEDS: CALCITROL 0.25 MCG CAP PO SCH (08:02)
[2022-05-08] MEDS: VITAMIN D 5,000 UNIT CAP PO SCH (08:02)
[2022-05-08] MEDS: DOCUSATE NA 100 MG CAP PO SCH (08:02)
[2022-05-08] MEDS: MIDODRINE HCL 5 MG TABLET PO SCH (08:02)
[2022-05-08] MEDS: NEPRO SHAKE 237 ML CAN PO SCH ×2 (08:03→14:53)
[2022-05-08 15:51] VITALS: O2SAT 95
[2022-05-08 16:00] VITALS: BP 95/48; TEMP 97.9
--- NOTE | 2022-05-09 00:35 | P.PN ---
Date of Service: 05/07/22 Subjective Subjective: family has decided to proceed with hospice care after hemodialysis. Anticipate discharge in the morning. Review of Systems 10-point ROS is otherwise unremarkable Physical Examination - Vital Signs Reviewed - Physical Exam General: Alert, In no apparent distress, more awake and alert. Respiratory: Crackles/rales Cardiovascular: Regular rate/rhythm, Normal S1 S2, Systolic murmur Gastrointestinal: Normal bowel sounds, Soft and benign, Non-distended, No tenderness, No rebound, No guarding Musculoskeletal: No clubbing, No swelling, No tenderness Neurological: Generalized weakness but no focal deficits - Studies Medications List Reviewed: Yes Assessment & Plan - Problems (Diagnosis) (1) Large pleural effusion Current Visit: Yes Status: Acute (2) Cirrhosis of liver Current Visit: No Status: Acute Qualifiers: Ascites presence: unspecified (3) Congestive heart failure Onset Date: 04/11/18 Current Visit: No Status: Acute Qualifiers: (4) End stage renal disease on dialysis Current Visit: No Status: Acute (5) Diabetes mellitus Onset Date: 02/28/15 Current Visit: No Status: Chronic (6) Hyperlipidemia Onset Date: 02/28/15 Current Visit: No Status: Chronic Qualifiers: (7) Hypertension Onset Date: 02/28/15 Current Visit: No Status: Chronic - Plan Continue with plan of care as mentioned below: 1. Ultrasound-guided thoracentesis completed-700cc; mild reaccumulation of fluid at this time. Pulmonary consulted. 2. Pleural fluid reviewed 3. nephrology consultation for hemodialysis 4. review of echocardiogram 5. Continue with diuresing and hemodialysis 6. Start physical therapy 7. Anticipate discharge over the next 48 72 hours. Discharge Plan: Home Plan to discharge in: Greater than 2 days - Advance Directives Does patient have a Living Will: Yes Does patient have a Durable POA for Healthcare: No - Code Status/Comfort Care Code Status: Full Code Critical Care: No Time Spent Managing PTS Care (In Minutes): 35
--- NOTE | 2022-05-09 00:36 | P.DS ---
Discharge Date: 05/08/22 Disposition: HOSPICE-HOME Discharge Condition: GOOD Reason for Admission: Dyspnea - Problems (1) Large pleural effusion Status: Acute (2) Cirrhosis of liver Status: Acute Qualifiers: Ascites presence: unspecified (3) Congestive heart failure Onset Date: 04/11/18 Status: Acute Qualifiers: (4) End stage renal disease on dialysis Status: Acute (5) Diabetes mellitus Onset Date: 02/28/15 Status: Chronic (6) Hyperlipidemia Onset Date: 02/28/15 Status: Chronic Qualifiers: (7) Hypertension Onset Date: 02/28/15 Status: Chronic Brief History of Present Illness: Patient is a 66-year-old gentleman who came into the hospital with shortness of breath and hypoxemia. Patient with her O2 sats wrap 40%. Patient came into the emergency room for further evaluation. In the emergency room patient placed on a BiPAP. Patient had recently been discharged from [facility]. Patient had paracentesis done at that time. Patient was told that if his chest x-ray was clean he would be discharged. Patient was discharged yesterday. He was real short of breath today. She had x-ray shows A very large pleural effusion. On the right side. Will go ahead and get a thoracentesis performed. Hopefully, once we get fluid removed we can get patient off of the BiPAP. Will also consult Nephrology for ESRD. Patient is on home dialysis. Hospital Course: Patient has long discussion with family and Nephrology and I spoke with family as well. At this time we are going to proceed with hospice care. Patient will go on hospice for cirrhosis and patient can continue with hemodialysis at home if his blood pressure is stable. At this time, patient is stable for discharge home with hospice care. Vital Signs/Physical Exam: Temp Pulse Resp BP Pulse Ox 97.9 F 72 18 95/48 L 95 05/08/22 15:59 05/08/22 15:59 05/08/22 15:59 05/08/22 15:59 05/08/22 15:59 General: Alert, In no apparent distress, Oriented x3 Laboratory Data at Discharge: WBC 7.6 K/uL (4.3-10.9) 05/07/22 05:37 Hgb 11.6 g/dL (13.6-17.9) L 05/07/22 05:37 Hct 37.7 % (39.6-49.0) L 05/07/22 05:37 Plt Count 144 K/uL (152-406) L 05/07/22 05:37 PT 11.1 SECONDS (9.5-12.5) 05/05/22 05:55 INR 1.01 05/05/22 05:55 APTT 30.8 SECONDS (24.3-36.9) 05/05/22 05:55 Sodium 137 mmol/L (136-145) 05/07/22 05:37 Potassium 5.0 mmol/L (3.5-5.1) 05/07/22 05:37 BUN 46 mg/dL (7-18) H 05/07/22 05:37 Creatinine 4.13 mg/dL (0.55-1.3) H 05/07/22 05:37 Glucose 118 mg/dL (74-106) H 05/07/22 05:37 Phosphorus 2.8 mg/dL (2.5-4.9) 05/04/22 04:01 Magnesium 2.3 mg/dL (1.8-2.4) 05/07/22 05:37 Total Bilirubin 0.4 mg/dL (0.2-1.0) 05/05/22 05:55 AST 25 U/L (15-37) 05/05/22 05:55 ALT 28 U/L (12-78) 05/05/22 05:55 Alkaline Phosphatase 106 U/L (45-117) 05/05/22 05:55 Cholesterol Cancelled 05/06/22 14:00 Home Medications: Aspirin Chewable [Aspirin Chewable*] 81 mg PO DAILY 04/08/19 Atorvastatin Calcium 40 mg PO DAILY 04/08/19 Clopidogrel Bisulfate [Clopidogrel] 75 mg PO DAILY 04/08/19 Levothyroxine [Synthroid*] 125 mcg PO [id number] 07/17/21 Insulin Glargine,Hum.rec.anlog [Basaglar Kwikpen U-100] 10 unit SQ BEDTIME 12/01/21 Midodrine HCl 1 tab PO DIRECTED 02/03/22 Folic Acid/Vit B Complex and C [Dialyvite 800 Chewable Wafer] 800 mcg PO DAILY 03/02/22 Hydrocodone Bit/Acetaminophen [Hydrocodon-Acetaminophen 5-325] 1 each PO Q6HP PRN 03/02/22 methocarbamoL [Methocarbamol] 500 mg PO TID 03/02/22 Furosemide [Lasix] 80 mg PO DAILY #30 tablet 03/12/22 Hydrocodone 7.5/APAP 325 [Percival 7.5/325 mg*] 1 tab PO Q6H PRN #30 tab 03/12/22 Lidocaine 4% Patch [Lidoderm 5% Patch*] 1 patch TOP DAILY #30 patch 03/12/22 dexAMETHasone [Decadron*] 4 mg PO BID #8 tab 03/12/22 Calcitrol [Rocaltrol*] 0.5 mcg PO DAILY #30 cap 05/07/22 Cholecalciferol (Vitamin D3) [Vitamin D 5,000 IU Cap*] 5,000 unit PO DAILY #30 cap 05/07/22 Docusate [Colace Cap*] 100 mg PO BID #60 cap 05/07/22 Midodrine HCl [Proamatine*] 10 mg PO BID #120 tab 05/07/22 Nepro Shake [Nepro*] 237 ml PO TID #90 can 05/07/22 Hydrocortisone [Cortef*] 10 mg PO BID #30 tab 05/08/22 New Medications: Docusate [Colace Cap*] 100 mg PO BID #60 cap Hydrocortisone [Cortef*] 10 mg PO BID #30 tab Nepro Shake [Nepro*] 237 ml PO TID #90 can Midodrine HCl [Proamatine*] 10 mg PO BID #120 tab Calcitrol [Rocaltrol*] 0.5 mcg PO DAILY #30 cap Cholecalciferol (Vitamin D3) [Vitamin D 5,000 IU Cap*] 5,000 unit PO DAILY #30 cap Physician Discharge Instructions: OK TO DC IV AND DC HOME with hospice care FOLLOW-UP WITH PRIMARY CARE PROVIDER IN 1-2 WEEKS FOLLOW-UP WITH Nephrology for HD RETURN TO THE ER IF symptoms worsen CALL DR. MUNGUIA AT [phone] IF ANY QUESTIONS REGARDING HOSPITAL STAY. PLEASE CALL THE FLOOR AT [phone] IF ANY MEDICATION OR NURSING QUESTIONS. Diet: Renal Activity: Fall precautions Followup: Teja Hernandez DO [ACTIVE - CAN ADMIT] - 1-2 Weeks (Call for appointment.) Roberto Chaney MD [ACTIVE - CAN ADMIT] - 1-2 Weeks (Call for appointment.) NONE,NONE [Primary Care Provider] - 1-2 Weeks (Call for appointment.) Time spent managing pt's care (in minutes): 35
[2022-05-10 18:27] LABS: LD, PLEURAL FLUID 117 U/L; TOTAL PROTEIN, PLEURAL FLUID <3.0 g/dL
== END 2022-05-08 18:57 | disposition hospice, home (50) | DRG 291 ==
LOC: ER 07:21 → ERHOLD 16:45 → OBSVTOIN 16:45 → 4TH 19:14
PROVIDERS: ADMIT Hospitalist; ATTEND Hospitalist
PROC: 0W993ZX Drainage of Right Pleural Cavity, Percutaneous Approach, Diagnostic (ICD-10-PCS; 2022-05-03)
PROC: 5A1D70Z Performance of Urinary Filtration, Intermittent, Less than 6 Hours Per Day (ICD-10-PCS; 2022-05-04)
PROC: 0W9930Z Drainage of Right Pleural Cavity with Drainage Device, Percutaneous Approach (ICD-10-PCS; principal; 2022-05-06 13:30)
PROC: 5A1D70Z Performance of Urinary Filtration, Intermittent, Less than 6 Hours Per Day (ICD-10-PCS; 2022-05-07)
DX: I13.2 Hypertensive heart and chronic kidney disease with heart failure and with stage 5 chronic kidney disease, or end stage renal disease (principal); I50.33 Acute on chronic diastolic (congestive) heart failure; N18.6 End stage renal disease; J91.8 Pleural effusion in other conditions classified elsewhere; E87.1 Hypo-osmolality and hyponatremia; R64 Cachexia; J94.8 Other specified pleural conditions; E11.22 Type 2 diabetes mellitus with diabetic chronic kidney disease; I95.9 Hypotension, unspecified; D63.1 Anemia in chronic kidney disease; E78.5 Hyperlipidemia, unspecified; Z68.30 Body mass index [BMI] 30.0-30.9, adult; K74.60 Unspecified cirrhosis of liver; R09.02 Hypoxemia; R01.1 Cardiac murmur, unspecified; I25.2 Old myocardial infarction; Z99.2 Dependence on renal dialysis; Z79.4 Long term (current) use of insulin; Z95.0 Presence of cardiac pacemaker; Z95.1 Presence of aortocoronary bypass graft; Z95.5 Presence of coronary angioplasty implant and graft; Z79.82 Long term (current) use of aspirin; Z20.822 Contact with and (suspected) exposure to COVID-19
CPT/HCPCS: 32555; 36415; 71045; 80048; 80053; 80076; 82042; 82140; 82805; 82945; 82947; 83605; 83615; 83735; 83880; 84100; 84145; 84157; 84311; 84484; 85025; 85610; 85730; 87015; 87040; 87070; 87102; 87116; 87206; 88108; 88305; 89050; 90935; 93005; 96361; 96365; 99285; J1100; J1644; J1815; J2250; J2270; J2405; J2704; J3010; J7030; J7040; J7050; P9047; Q5105; U0003